=== PATIENT | female | born 2005 | race Caucasian/White ===

== ENCOUNTER 2024-12-21 20:25 | Emergency (ER) | payer BC, SELFPAY ==
[2024-12-21 20:27] VITALS: BP 127/91; PULSE 106; RESP 18; TEMP 36.3; O2SAT 99; BMI 24.4
--- NOTE | 2024-12-21 21:23 | ED.VIS.FEGU ---
HPI HPI - Female History of Present Illness Chief Complaint: Female C/O Narrative Narrative: Patient is a 19-year-old female G1, P0 currently 17 weeks no significant past medical history who presents to the emergency department with chief complaint of cramping and pressure. Patient states that earlier this evening she noted that she had a lot of cramping and pressure in her lower pelvis and notes that she came here for the valuation management. States that she is following with [facility]. Patient denies any vaginal spotting or bleeding. [facility] Medical History (Updated 12/21/24 @ 23:[address] Aftab Mendoza DO) POTS (postural orthostatic tachycardia syndrome) Myles-Danlos syndrome Allergy/AdvReac Type Severity Reaction Status Date / Time No Known Allergies Allergy Verified 12/21/24 20:27 Social History Smoking Status: Never smoker ROS ROS ED ROS Narrative Constitutional: Denies any fevers, chills, headaches, lightness, dizziness Eyes: Denies double vision Cardiovascular: Denies chest pain Respiratory: Denies shortness of breath Abdomen: Complains of lower abdominal pressure as noted above denies nausea vomiting : Denies any vaginal spotting or bleeding denies any painful urination Neurological: Denies any numbness, wheeze, tingling Musculoskeletal: Denies back pain Skin: Denies any rashes or lesions EXAM Physical Exam Narrative Exam Narrative: General: Patient lying in bed rest comfortably did not appear to be in acute distress Head: Atraumatic, normocephalic Eyes: PERRL bilaterally, EOMI blood, no conjunctival injection noted Neck: Soft, supple, trachea midline Cardiovascular: Patient tachycardic with a regular rhythm Respiratory: Clear to auscultation bilaterally Abdomen: Soft, gravid abdomen no tenderness to palpation Extremities: +5/5 strength in the bilateral upper and lower extremities Neurological: Patient follow commands knew that she was at [facility] the year is 2024 Skin: Warm, dry, tact no rashes or lesions noted Const Vital Signs: 12/21/24 20:27 12/21/24 22:26 Temperature 97.4 F L Temperature Source Oral Pulse Rate 106 H 80 Respiratory Rate 18 18 Blood Pressure 127/91 H 110/58 L Blood Pressure Mean 103 75 Pulse Ox 99 100 Oxygen Delivery Method Room Air Room Air MDM MDM MDM Narrative Medical decision making narrative: Patient is a 19-year-old female who presented to the Emergency Department 17 weeks with a chief complaint of pressure and cramping in her lower abdomen. On the differential diagnose includes but not limited to threatened miscarriage, UTI, dehydration. Once workup is obtained reviewed she will be reevaluated. Patient will be given 2 L of IV fluids heart tones 130 Patient CBC reviewed showed no evidence leukocytosis white blood count normal 10.4, hemoglobin 12.5, platelet count normal at 248. Patient sodium was normal at 137, potassium normal 3.8,, dioxide slightly low at 20.6, AST and ALT are 16 and 10 respectively total bilirubin normal at 0.26. Patient urinalysis reviewed showed no evidence of infection. Discussed the case with on-call STAKING ENGINEER for [facility] Dr. Aragon who states that she can follow-up with them on Saturday. She was advised to return with worsening symptoms or any concerns. She is agreeable this plan all question concerns answered she was discharged home in stable condition. Lab Data Labs: Laboratory Results - last 24 hr 12/21/24 12/21/24 21:36 21:58 WBC 10.4 RBC 4.12 L Hgb 12.5 Hct 36.3 L MCV 88.1 MCH 30.3 MCHC 34.4 RDW Std Deviation 44.6 H RDW Coeff of Jeannie 14.0 Plt Count 248 MPV 9.1 Immature Gran % (Auto) 0.700 Neut % (Auto) 72.9 H Lymph % (Auto) 18.4 L Dawson % (Auto) 6.2 Eos % (Auto) 1.4 Baso % (Auto) 0.4 Absolute Neuts (auto) 7.6 Absolute Lymphs (auto) 1.91 Nucleated RBC % 0 Sodium 137 Potassium 3.8 Chloride 103 Carbon Dioxide 20.6 L Anion Gap 13 BUN 7 Creatinine 0.54 L Estim Creat Clear Calc 161.60 Est GFR (MDRD) Non-Af 135 BUN/Creatinine Ratio 13.0 Glucose 118 H Calcium 9.0 Total Bilirubin 0.26 AST 16 ALT 10 Alkaline Phosphatase 44 Total Protein 6.5 Albumin 3.8 Globulin 2.6 Albumin/Globulin Ratio 1.5 Urine Color Yellow Urine Clarity Clear Urine pH 6.5 Ur Specific [place] 1.010 Urine Protein Negative Urine Glucose (UA) Normal Urine Ketones Negative Urine Occult Blood Negative Urine Nitrite Negative Urine Bilirubin Negative Urine Urobilinogen Normal Ur Leukocyte Esterase Negative Urine RBC 0-5 SEEN Urine WBC 0-5 SEEN Ur Squamous Epith Cells 0-5 SEEN Urine Bacteria 0 SEEN Urine Mucus 0 SEEN Discharge Plan Triage Chief Complaint: Female C/O Other Complaint: ED Provider: Aftab Mendoza Dx/Rx/DC Orders Clinical Impression: Abdominal cramping affecting , Currently , Dehydration Primary Care Provider: Care Physician,No Primary Referrals: Magda Aragon MD [Med Staff - Active Staff] - Care Physician,No Primary [Primary Care Provider] - Activity Restrictions/Additional Instructions: Follow-up with your STAKING ENGINEER at your scheduled appointment on Saturday. Your blood work did not show any acute findings your urine did not show any evidence infection. Return with worsening symptoms or any concerns. Ensure you are hydrating plenty with water. Print Language: Slovak Disposition Disposition: Home, Self Care
[2024-12-21 21:42] LABS: Hematocrit 36.3 % (37-47); Hemoglobin 12.5 g/dL (12.0-15.0); Immature Granulocytes Count 0.070 X10^3/uL (0.0-0.0); Mean Corp Hgb Conc 34.4 g/dL (32-36); Mean Corpuscular Volume 88.1 fL (81-99); Mean Platelet Vol. 9.1 fl (6.2-12.0); NRBC Flagged by Analyzer 0 % (0-5); Platelet Count 248 K/mm3 (150-450); RBC Distribution Width CV 14.0 % (11.6-14.6); RBC Distribution Width SD 44.6 fl (35.1-43.9); Red Blood Count 4.12 M/mm3 (4.2-5.4); White Blood Count 10.4 K/mm3 (4.4-11.0)
[2024-12-21] MEDS: 0.9% Normal Saline (1000mL) 1,000 ML 999 ML IV ×2 (21:46→22:54)
[2024-12-21 22:07] LABS: Mucous, Urine 0 SEEN /hpf (<or=2+)
[2024-12-21 22:20] LABS: Color, Urine Yellow (Yellow); Glucose, Dipstick Normal (Normal); Ketone-Dipstick Negative (Negative); Leukocyte Esterase-Dipstick Negative /ul (Negative); Nitrite-Dipstick Negative (Negative); Occult Blood-Urine Negative /ul (Negative); Protein-Dipstick Negative (Negative); Specific Gravity, Urine 1.010 (1.002-1.030); Urine Bilirubin Dipstick Negative (Negative)
[2024-12-21 22:26] VITALS: BP 110/58; PULSE 80; RESP 18; O2SAT 100
[2024-12-21 22:26] LABS: AST(SGOT) 16 U/L (<=31); Alanine Aminotransfer ALT/SGPT 10 U/L (<=34); Albumin, Serum 3.8 g/dL (3.5-5.0); Alkaline Phosphatase 44 U/L (35-104); Anion Gap 13 (5-15); BUN 7 mg/dL (4-19); BUN/Creat Ratio 13.0 RATIO (10-20); Calcium,Total 9.0 mg/dL (7.6-11.0); Carbon Dioxide 20.6 mmol/L (21.0-32.0); Chloride 103 mmol/L (98-108); Estimated Creatinine Clearance 161.60 ml/min (50-250); Globulin 2.6 g/dL (2.2-4.2); Glucose 118 mg/dL (70-99); Potassium 3.8 mmol/L (3.3-5.1)
[2024-12-21 23:22] LABS: Red Blood Cells-Urine 0-5 SEEN /hpf (0-5); Squamous Epithelial Cells - UA 0-5 SEEN /hpf (5-10)
[2024-12-21 23:57] VITALS: BP 110/58; PULSE 80; RESP 18; TEMP 36.3; O2SAT 100
[2024-12-22] VITALS: PULSE 81; RESP 16; O2SAT 98
== END 2024-12-22 00:35 | disposition home or self-care (01) ==
PROVIDERS: Emergency Provider Emergency Medicine; Visit Provider Emergency Medicine
DX: O99.891 Other specified diseases and conditions complicating pregnancy (principal); Z3A.17 17 weeks gestation of pregnancy; R10.9 Unspecified abdominal pain; O99.282 Endocrine, nutritional and metabolic diseases complicating pregnancy, second trimester; E86.0 Dehydration
CPT/HCPCS: 80053; 81001; 85025; 87086; 87088; 96360; 96361; 99283; A4216

== ENCOUNTER 2025-02-02 20:50 | Outpatient (CLI) | payer BC, SELFPAY ==
[2025-02-02 21:07] VITALS: BMI 27.2
[2025-02-02 21:12] VITALS: BP 123/78; PULSE 109; RESP 16; TEMP 37.1; O2SAT 98
[2025-02-02 22:22] LABS: Mucous, Urine 0 SEEN /hpf (<or=2+); Red Blood Cells-Urine 0 SEEN /hpf (0-5)
[2025-02-02 22:55] LABS: Color, Urine Straw (Yellow); Glucose, Dipstick Normal (Normal); Ketone-Dipstick Negative (Negative); Leukocyte Esterase-Dipstick Negative /ul (Negative); Nitrite-Dipstick Negative (Negative); Occult Blood-Urine Negative /ul (Negative); Protein-Dipstick 15 mg/dl (Negative); Specific Gravity, Urine 1.010 (1.002-1.030); Urine Bilirubin Dipstick Negative (Negative)
[2025-02-02 22:58] LABS: Squamous Epithelial Cells - UA 0-5 SEEN /hpf (5-10)
--- NOTE | 2025-02-02 23:36 | OB.TRI.NOTE ---
HPI - General General Date of Admission: 02/02/25 Date of Service: 02/02/25 Chief Complaint: cramping HPI Narrative JOSE NICHOLAS, is a 19 F who presents cramping. No bleeding. Some movement. Was seen in office today with normal discharge. Maternal Data Information Final AMARI: [birth year] Gestational age: 23 PFSH [facility] Medical History (Updated 02/02/25 @ 23:[address] Magda Aragon MD) POTS (postural orthostatic tachycardia syndrome) Myles-Danlos syndrome Home Medications ?Medication ?Instructions ?Recorded ?Last Taken ?Type aspirin 81 mg capsule 81 mg PO DAILY 02/02/25 02/01/25 History vit no.95-ferrous 1 tab PO DAILY 02/02/25 02/01/25 History fumarate 28 mg-folic acid 800 mcg tablet () Allergy/AdvReac Type Severity Reaction Status Date / Time No Known Allergies Allergy Verified 02/02/25 21:14 Social History Smoking Status: Never smoker History 1 Elective abortions Hx Para 0 Spontaneous abortions Hx # Term Pregnancies Ectopic pregnancies Hx # Pregnancies Multiple births # of living children NST FHR Rate Baby A Baseline: 145 by doppler Uterine Activity:: irritable Assessment & Plan (1) 23 weeks gestation of : (2) [place] Zar[place]za' contraction: COMMENT: cervix closed
== END 2025-02-02 23:30 | disposition home or self-care (01) ==
LOC: WPOUT 20:53 → WP 20:54
PROVIDERS: Referring Provider Obstetrics & Gynecology; Visit Provider Obstetrics & Gynecology
DX: O47.02 False labor before 37 completed weeks of gestation, second trimester (principal); Z3A.23 23 weeks gestation of pregnancy
CPT/HCPCS: 59050; 81001; 87086; 99221; G0378

== ENCOUNTER 2025-02-04 22:13 | Outpatient (CLI) | payer BC, SELFPAY ==
--- OUTSIDE RECORDS SUMMARY | 2025-02-04 22:22 | XMS RPT_ITS | CCD ---
Author Organization [facility] Care Team Providers Care Judicial Administrative Assistant Name Role Phone Unavailable Primary Care Provider Unavaildwayne e Dr. Aftab Mendoza DO Emergency Provider Care Physician, No Primary Primary Care Provider Unavailable Aftab Mendoza Attending Unavailable Care Physician, No Primary Primary Care Unava ilable MARK FOREMAN Attending Unavailable MARK FOREMAN Admitting Unavailable NUZHAT ZAMORANO Attending Unavailable NUZHAT ZAMORANO Admitting Unavailable MARIANNE, NUZHAT GRANADOS Admitting Unavailable NUZHAT ZAMORANO Attending Unavailable ALEXA DICKSON Attending Unavailable ALEXA DICKSON Admitting Unavailable Dr. Aftab Mendoza DO Attending Provider Mahesh WILLIS, Dr. Man Attending Provider Mahesh WILLIS, Dr. Man Referring Provider [phone] LYNNETTE TAPIA Referring Unavailable LYNNETTE TAPIA Attending Unavailable LYNNETTE TAPIA Attending Unavailable LESTER PHILLIPS Attending Unavailable KARINA SALDAÑA Attending Unavail able RAMAKRISHNA CROLEY Referring Unavailable RAMAKRISHNA CORLEY Attending Unavailable LYNNETTE TAPIA Referring Unavailable Medications Current Medications Medication Drug Class(es) Dates Sig (Normalized) Sig (Original) aspirin 81 mg oral tablet (15 sources) Platelet Aggregation Inhibitor, Nonsteroidal Anti-inflammatory Drug Start: 02-02-2025 take 1 capsule by mouth once daily Aspirin 81 mg capsule Active 81 mg PO DAILY February 02, 2025 12:00am Start: 12-28-2024 take 1 tablet by karl th once daily aspirin, enteric coated (ECOTRIN LOW STRENGTH) 81 mg EC tablet Indications: Visit for screening (HCC) Take 1 tablet by mouth once daily. 90 tablet 3 12/28/2024 Active cyclobenzaprine hydrochloride 10 mg oral tablet (15 sources) Muscle Relaxant Start: 12-22-2024 take 1 tablet by mouth every eight hours as needed cyclobenzaprine (FLEXERIL) 10 mg tablet Take 1 tablet by mouth three times a day as needed. 10 tablet 12/22/2024 Active doxylamine succinate 25 mg oral tablet (14 sources) take 25 mg by mouth once daily doxylamine succinate (UNISOM, DOXYLAMINE, PO) Take 25 mg by mouth once daily. Active loperamide hydrochloride 2 mg oral capsule (3 sources) Opioid Agonist Start: 01-05-2025 End: 01-10-2025 take 1 capsule by mouth every six hours as needed loperamide (IMODIUM A-D) 2 mg cap(s) Take 1 capsule by mouth four times a day as needed for up to 5 days. 20 capsule 01/05/2025 01/10/2025 Active metroNIDAZOLE 500 mg oral tablet (2 sources) Nitroimidazole Antimicrobial Start: 12-22-2024 End: 12-29-2024 take 1 tablet by mouth twice daily metroNIDAZOLE (FLAGYL) 500 mg tablet Take 1 tablet by mouth two times a day for 7 days. 14 tablet 12/22/2024 12/29/2024 Active nitrofurantoin, macrocrystals 25 mg / nitrofurantoin, monohydrate 75 mg oral capsule (4 sources) Nitrofuran Antibacterial Start: 01-14-2025 End: 01-21-2025 take 1 capsule by mouth twice daily nitrofurantoin monohydrate and macrocrystal (MACROBID) 100 mg capsule Indications: Dysuria Take 1 capsule by mouth two times a day for 7 days. 14 capsule 01/14/2025 01/21/2025 Active Pnv No.95-Ferrous Fumarate-Fa () 28 mg iron- 800 mcg tablet (1 source) Start: 02-02-2025 Pnv No.95-Ferrous Fumarate-Fa () 28 mg iron- 800 mcg tablet Active 1 {tbl} PO DAILY February 02, 2025 12:00am potassium chloride 10 meq extended release oral tablet (3 sources) Start: 01-05-2025 End: 01-07-2025 take 1 tablet by mouth twice daily potassium chloride (K-TAB) 10 mEq tablet Take 1 tablet by mouth two times a day for 2 days. 4 tablet 01/05/2025 01/07/2025 Active vit 75/iron/folic/om3 (DAILY ORAL) (14 sources) vit 75/iron/folic/om3 (DAILY ORAL) Take by mouth. Active pyridoxine hydrochloride 25 mg oral tablet (14 sources) take 1 tablet by mouth once daily pyridoxine, vitamin B6, (VITAMIN B-6) 25 mg tablet Take 25 mg by mouth once daily. Active Problems Active Problems Problem Classification Problem Date Documented Da te Episodic/Chronic Abdominal pain (1 source) Unspecified abdominal pain; Translations: [Abdominal pain affecting (HCC)] Onset: 01-18-2025 Episodic Bacterial infection; unspecified site (1 source) Other specified bacterial agents as the cause of diseases classified elsewhere; Translations: [Bacterial vaginosis] Onset: 12-28-2024 Episodic Cardiac dysrhythmias (16 sources) Postural orthostatic tachycardia syndrome ; Translations: [POTS (postural orthostatic tachycardia syndrome)] 12-28-2024 Chronic Cardiac dysrhythmias (2 sources) Palpitations; Translations: [Palpitations] Onset: 01-12-2025 01-11-2025 Episodic Conditions associated with dizziness or vertigo (13 sources) Dizziness; Translations: [Dizziness and giddiness] Onset: 01-05-2025 01-05-2025 Episodic Early or threatened labor (2 sources) Angel Zaragoza contractions; Translations: [False labor, unspecified] 02-02-2025 Episodic Comment on above: cervix closed Fluid and electrolyte disorders (15 sources) Dehydration; Translations: [Dehydration] Onset: 01-05-2025 12-21-2024 Episodic Genitourinary symptoms and ill-defined conditions (3 sources) Scalding pain on urination ; Translations: [Dysuria] Onset: 12-30-2024 01-11-2025 Episodic Headache; including migraine (13 sources) Headache; Translations: [Headache] Onset: 01-05-2025 01-05-2025 Episodic Hypertension complicating ; childbirth and the puerperium (12 sources) Chronic hypertension complicating AND/OR reason for care during ; Translations: [Unspecified pre-existing hypertension complicating , unspecified trimester] Onset: 01-06-2025 01-06-2025 Chronic Immunizations and screening for infectious disease (3 sources) Patient encounter status; Translations: [Encounter for screening for infections with a predominantly sexual mode of transmission] 12-28-2024 Episodic Inflammatory diseases of female pelvic organs (19 sources) Bacterial vaginosis; Translations: [Acute vaginitis] Onset: 12-22-2024 12-22-2024 Episodic Malaise and fatigue (4 sources) Fatigue; Translations: [Other fatigue] Onset: 01-12-2025 01-11-2025 Episodic Other circulatory disease (1 source) Postural orthostatic tachycardia syndrome 12-28-2024 Episodic Other complications of (2 sources) Complication of , childbirth and/or the puerperium; Translations: [Other specified related conditions, unspecified trimester] 12-21-2024 Episodic Other complications of (20 sources) Abdominal pain in ; Translations: [Other specified related conditions, second trimester] Onset: 12-22-2024 12-22-2024 Episodic Other complications of (15 sources) High risk ; Translations: [Supervision of high risk , unspecified, second trimester] Onset: 12-28-2024 12-28-2024 Episodic Other complications of (11 sources) Chest pain; Translations: [Chest pain during ] Onset: 01-06-2025 01-06-2025 Episodic Other complications of (13 sources) Vaginal discharge; Translations: [Other specified related conditions, unspecified trimester] Onset: 01-06-2025 01-06-2025 Episodic Other complications of (11 sources) Pain in female pelvis; Translations: [Other specified related conditions, unspecified trimester] Onset: 01-06-2025 01-06-2025 Episodic Other complications of (2 sources) Other specified related conditions, unspecified trimester; Translations: [Vaginal discharge during , antepartum (HCC)] Onset: 01-06-2025 Episodic Other complications of (1 source) Supervision of high risk , unspecified, second trimester; Translations: [Encounter for supervision of high risk in second trimester, antepartum (HCC)] Onset: 12-28-2024 Episodic Other congenital anomalies (16 sources) Myles-Danlos syndrome; 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, 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-2024 Chronic Other female genital disorders (2 sources) Other specified noninflammatory disorders of vagina; Translations: [Vaginal discharge during , antepartum (HCC)] Onset: 01-06-2025 Episodic Other gastrointestinal disorders (13 sources) Diarrhea; Translations: [Diarrhea, unspecified] Onset: 01-05-2025 01-05-2025 Episodic Other and delivery including normal (5 sources) ; Translations: [Encounter for supervision of normal , unspecified, unspecified trimester] Onset: 01-20-2025 12-21-2024 Episodic Other screening for suspected conditions (not mental disorders or infectious disease) (1 source) Encounter for screening, unspecified; Translations: [Visit for screening ([facility])] Onset: 01-11-2025 Episodic Residual codes; unclassified (2 sources) Gestation period, 18 weeks; Translations: [18 weeks gestation of ] 12-28-2024 Episodic Residual codes; unclassified (15 sources) Carrier of cystic fibrosis gene mutation; Translations: [Cystic fibrosis carrier] Onset: 12-28-2024 12-28-2024 Episodic Residual codes; unclassified (1 source) Gestation period, 20 weeks; Translations: [20 weeks gestation of ] 01-11-2025 Episodic Residual codes; unclassified (7 sources) Gestation period, 21 weeks; Translations: [21 weeks gestation of ] Onset: 01-18-2025 01-18-2025 Episodic Residual codes; unclassified (2 sources) Gestation period, 23 weeks; Translations: [23 weeks gestation of ] 02-02-2025 Episodic Residual codes; unclassified (1 source) 21 weeks gestation of ; Translations: [21 weeks gestation of ([facility])] Onset: 01-18-2025 Episodic Residual codes; unclassified (1 source) 20 weeks gestation of ; Translations: [20 weeks gestation of ([facility])] Onset: 01-11-2025 Episodic Residual codes; unclassified (1 source) 18 weeks gestation of ; Translations: [18 weeks gestation of ([facility])] Onset: 12-30-2024 Episodic Residual codes; unclassified (1 source) Cystic fibrosis carrier; Translations: [Cystic fibrosis carrier] Onset: 12-28-2024 Episodic Unclassified (2 sources) Patient encounter status 12-28-2024 Unclassified (14 sources) [facility] Onset: 12-28-2024 12-28-2024 Unclassified (14 sources) [facility] Onset: 12-28-2024 12-28-2024 Unclassified (1 source) Other specified diseases and conditions complicating ; Translations: [Other specified diseases and conditions complicating ] Onset: 12-29-2024 Unclassified (1 source) Myles-Danlos syndrome, unspecified; Translations: [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HCC)] Onset: 12-28-2024 Unclassified (1 source) POTS (postural orthostatic tachycardia syndrome); Translations: [POTS (postural orthostatic tachycardia syndrome)] Onset: 12-28-2024 Past or Other Problems Problem Classification Problem Date Documented Da te Episodic/Chronic Residual codes; unclassified (11 sources) Gestation period, 19 weeks; Translations: [19 weeks gestation of ] Onset: 01-06-2025 Resolved: 01-13-2025 01-06-2025 Episodic Results Test Name Value Interpretation Reference Range Facility Bilirubin Test strip Ql (U)O rdered By: Magda Aragon on 02-02-2025 Bilirubin Ql (U) Negative Negative [facility] Ketones Test strip Ql (U)Ord ered By: Magda Aragon on 02-02-2025 Ketones Ql (U) Negative Negative [facility] Microscopic analysis of urin e for red blood cells (RBC)Ordered By: Magda Aragon on 02-02-2025 Microscopic analysis of urine for red blood cells (RBC) 0 SEEN /hpf 0-5 [facility] Mucus LM Ql (Urine sed)Order ed By: Magda Aragon on 02-02-2025 Mucus Ql (Urine sed) 0 SEEN /hpf [facility] Nitrite Test strip Ql (U)Ord ered By: Magda Aragon on 02-02-2025 Nitrite Ql (U) Negative Negative [facility] Protein Test strip Ql (U)Ord ered By: Magda Aragon on 02-02-2025 Protein Ql (U) 15 mg/dl High Negative [facility] Squamous epithelial cells de tection in urine sediment by light microscopyOrdered By: Magda Aragon on 02-02-2025 Epithelial cells.squamous LM Ql (Urine sed) 0-5 SEEN /hpf 5-10 [facility] UA DIP, URINE (POC)on 2024 BILIRUBIN UA (POCT) Negative Negative [facility] CLARITY UA (POCT) Clear [facility] COLOR UA (POCT) Yellow [facility] GLUCOSE UA (POCT) Negative Negative mg/dL [facility] Hemoglobin Ql (U) Negative Negative [facility] KETONE UA (POCT) Negative Negative mg/dL [facility] LEUKOCYTES UA (POCT) Negative Negative [facility] NITRITE UA (POCT) Negative Negative [facility] PH UA (POCT) 7.0 4.5 - 8.0 [facility] Protein Ql (U) Negative Negative mg/dL [facility] SPECIFIC GRAVITY UA (POCT) 1.010 1.005 - 1.030 [facility] UROBILINOGEN UA (POCT) 0.2 Jazmine l E.U./dL [facility] Location:[facility], [address], [place], [place], [id number] [place] [address] POINT OF CARE [facility] Urine clarityOrdered By: Jazmin Aragon on 02-02-2025 Clarity (U) Clear Clear [facility] Urine color determinationOrd ered By: Magda Aragon on 02-02-2025 Color (U) Straw Yellow [facility] Urine glucose detectionOrder ed By: Magda Aragon on 02-02-2025 Glucose Ql (U) Normal mg/dl Normal [facility] Urine leukocyte esterase det ection by dipstickOrdered By: Magda Aragon on 02-02-2025 Leukocyte esterase Test strip Ql (U) Negative Negative [facility] Urine pHOrdered By: Magda Aragon on 02-02-2025 pH (U) 7.0 [pH] 5.0 - 8.0 [facility] Urine sediment bacteria coun t by microscopy (number/high power field)Ordered By: Magda Aragon on 02-02-2025 Bacteria LM.HPF (Urine sed) [#/Area] 0 /[HPF] None Seen [facility] Urine specific gravity measu rementOrdered By: Magda rAagon on 02-02-2025 Specific gravity (U) [Rel density] 1.010 1.002-1.030 [facility] Urine urobilinogen measureme ntOrdered By: Magda Rowewin on 02-02-2025 Urobilinogen Ql (U) Normal mg/dl Normal [facility] White blood cell countOrdere d By: Magda Rowewin on 02-02-2025 White blood cell count 0 SEEN /hpf 0-5 [facility] BACTERIAL VAGINOSIS NAATon 0 01-20-2025 Interpretation and review of laboratory results Normal [facility] Lactobacillus crispatus+gasseri+muniz ii + Gardnerella vaginalis + Atopobium vaginae rRNA JOHN+probe Ql (Vag fld) Not detected Not detected [facility] Lactobacillus crispatus+gasseri+muniz ii + Gardnerella vaginalis + Atopobium vaginae rRNA JOHN+probe Ql (Vag fld) Not detected Normal Not detected [facility] Comment on above: Order Comment: Speci men Type: SWAB Ordering Facility: [facility] Address: [address] [place] [address] Performed By: #### B VAMP, CVTV #### [facility] CLIA [id number] [address] [place] [address] [place] PARVEEN/TRICHOMONAS NAATon 0 01-20-2025 C. glabrata RNA JOHN+probe Ql (Vag fld) Not detected Not detected [facility] Parveen sp DNA JOHN+probe Ql (Vag fld) Not detected Not detected [facility] Comment on above: The Parveen species group target includes C. albicans, C. tropicalis, C. parapsilosis, and C. dubliniensis. Interpretation and review of laboratory results Normal [facility] T. vaginalis DNA JOHN+probe Ql (Unsp spec) Not detected Not detected [facility] C. glabrata RNA JOHN+probe Ql (Vag fld) Not detected Normal Not detected [facility] Comment on above: Order Comment: Speci men Type: SWAB Ordering Facility: [facility] Address: [address] [place] [address] Performed By: #### B VAMP, CVTV #### [facility] CLIA [id number] [address] [place] [address] [place] Parveen sp DNA JOHN+probe Ql (Vag fld) Not detected Normal Not detected [facility] Comment on above: Order Comment: Speci men Type: SWAB Ordering Facility: [facility] Address: [address] [place] [address] Result Comment: The Parveen species group target includes C. albicans, C. tropicalis, C. parapsilosis, and C. dubliniensis. Performed By: #### B VAMP, CVTV #### [facility] CLIA [id number] [address] [place] [address] T. vaginalis DNA JOHN+probe Ql (Unsp spec) Not detected Normal Not detected [facility] Comment on above: Order Comment: Speci men Type: SWAB Ordering Facility: [facility] Address: [address] [place] [address] Performed By: #### B VAMP, CVTV #### [facility] CLIA [id number] [address] [place] [address] [place] [id number] 01-19-2025 [id number] HNO ID: [id number] Author: ARMIDA SMITH RN Service: ? Author Type: Registered Nurse Type: [id number] Filed: 01/19/2025 03:42 Note Text: Precautions given, patient verbalized understanding. Instructed to call her OB doctor for follow up. Normal [facility] Bacteria Ur Culton Bacteria identified Cx Nom (U) CULTURE, URINE: No growth (<1,000 CFU/ml) Normal [facility] Comment on above: Performed By: #### 6 30-4 ####[facility]ORYCLIA [id number] [place] [address] [place] [address] ABD/PEL WO IVCONon 2024 CT ABD/PEL WO IVCON * * *Final Report* * * DATE OF EXAM: Jan 19 2025 12:50AM [facility] 0531 - CT ABD/PEL WO IVCON / PROCEDURE REASON: Abdominal pain in * * * * Physician Interpretation * * * * EXAMINATION: CT ABDOMEN AND PELVIS WITHOUT IV CONTRAST CLINICAL HISTORY: Abdominal pain in . RIGHT lower quadrant pain. 21 weeks . TECHNIQUE: Non-IV contrast imaging of the abdomen and pelvis was performed using standard technique, scanning from just above the dome of the diaphragm to the symphysis pubis. Unenhanced imaging is limited for the evaluation of some intra-abdominal and pelvic pathology. MQ: [id number]_3 Contrast: IV: None CT Radiation dose: Integrated Dose-length product (DLP) for this visit = 483 mGy*cm. CT Dose Reduction Employed: Automated exposure control(AEC) and iterative recon COMPARISON: None. RESULT: Abdomen / Pelvis: Liver: Unremarkable. Biliary: Gallbladder is unremarkable. Spleen: No splenomegaly. Pancreas: Unremarkable. Adrenals: No mass. Kidneys: Punctate 1 mm nonobstructing stone in the RIGHT lower pole calyx. No hydronephrosis or visible ureteral stones. GI Tract: No bowel obstruction. No bowel wall thickening. Appendix not definitively seen. No pericecal inflammatory changes. Lymph Nodes: No lymphadenopathy. Mesentery/peritoneum : No ascites. Retroperitoneum: No mass. Vasculature: Unremarkable. Pelvis: Enlarged gravid uterus. Anterior placenta. The uterus and fetus are otherwise not well assessed by noncontrast CT. Mild urinary bladder wall thickening. Bones/Soft Tissues: No acute abnormality. Lower thorax: Unremarkable. Localizer images: No additional findings. IMPRESSION: 1. Mild urinary bladder wall thickening suggestive of cystitis. Recommend correlation for urinary tract infection. 2. Punctate 1 mm nonobstructing stone in the RIGHT lower pole calyx. No hydronephrosis or visible ureteral stones. 3. Appendix not definitively seen. No pericecal inflammatory changes. 4. Enlarged gravid uterus. Anterior placenta. Otherwise limited assessment by noncontrast CT. Recommend correlation with obstetric ultrasound. Director Of Online Education: HIEU Transcribe Date/Time: Jan 19 2025 2:36A Dictated by : BONIFACIO GAYLE DO This examination was interpreted and the report reviewed and electronically signed by: BONIFACIO GAYLE DO on Jan 19 2025 2:54AM EST [id number] Normal [facility] CBC panel Auto (Bld)on 01-18 Erythrocyte distribution width (RBC) [Ratio] 14.1 % Normal 11.5-15.0 [facility] Comment on above: Order Comment: Speci men Type: BLOOD SPECIMENOrdering Facility: [facility] Address: [address] [place] [address] Performed By: #### 5 8410-2 ####[facility]ORYCLIA [id number] [address] STATES OF [facility] Hematocrit (Bld) [Volume fraction] 34.6 % Low 36.0-46.0 [facility] Comment on above: Order Comment: Speci men Type: BLOOD SPECIMENOrdering Facility: [facility] Address: [address] [place] [address] Performed By: #### 5 8410-2 ####[facility]ORYCLIA [id number] [address] [place] Hemoglobin (Bld) [Mass/Vol] 11.5 g/dL Normal 11.5-15.5 [facility] Comment on above: Order Comment: Speci men Type: BLOOD SPECIMENOrdering Facility: [facility] Address: [address] [place] [address] Performed By: #### 5 8410-2 ####[facility]ORYCLIA [id number] [address] [place] MCH (RBC) [Entitic mass] 31.0 pg Normal 26.0-34.0 [facility] Comment on above: Order Comment: Speci men Type: BLOOD SPECIMENOrdering Facility: [facility] Address: [address] [place] [address] Performed By: #### 5 8410-2 ####[facility]ORYCLIA [id number] [address] [place] MCHC (RBC) [Mass/Vol] 33.2 g/dL Normal 30.5-36.0 [facility] Comment on above: Order Comment: Speci men Type: BLOOD SPECIMENOrdering Facility: [facility] Address: [address] [place] [address] Performed By: #### 5 8410-2 ####[facility]ORYCLIA [id number] [address] [place] MCV (RBC) [Entitic vol] 93.3 fL Normal 80.0-100.0 [facility] Comment on above: Order Comment: Speci men Type: BLOOD SPECIMENOrdering Facility: [facility] Address: [address] [place] [address] Performed By: #### 5 8410-2 ####[facility]ORYCLIA [id number] [address] [place] Nucleated RBC (Bld) [#/Vol] 10*3/uL Normal <0.01 [facility] Comment on above: Order Comment: Speci men Type: BLOOD SPECIMENOrdering Facility: [facility] Address: [address] [place] [address] Performed By: #### 5 8410-2 ####[facility]ORYCLIA [id number] [address] [place] Platelet mean volume (Bld) [Entitic vol] 9.2 fL Normal 9.0-12.7 [facility] Comment on above: Order Comment: Speci men Type: BLOOD SPECIMENOrdering Facility: [facility] Address: [address] [place] [address] Performed By: #### 5 8410-2 ####[facility]ORYCLIA [id number] [address] [place] Platelets (Bld) [#/Vol] 242 10*3/uL Normal 150-400 [facility] Comment on above: Order Comment: Speci men Type: BLOOD SPECIMENOrdering Facility: [facility] Address: [address] [place] [address] Performed By: #### 5 8410-2 ####[facility]ORYCLIA [id number] [address] [place] RBC (Bld) [#/Vol] 3.71 10*6/uL Low 3.90-5.20 [facility] Comment on above: Order Comment: Speci men Type: BLOOD SPECIMENOrdering Facility: [facility] Address: [address] [place] [address] Performed By: #### 5 8410-2 ####[facility]ATORYCLIA [id number] [place] [address] [place] WBC (Bld) [#/Vol] 10.04 10*3/uL Normal 3.70-11.00 [facility] Comment on above: Order Comment: Speci men Type: BLOOD SPECIMENOrdering Facility: [facility] Address: [address] [place] [address] Performed By: #### 5 8410-2 ####[facility]ORYCLIA [id number] [place] [address] [facility] Landen 01-18-2025 CNPN Telephone (OBHeptares TherapeuticsWM) PAL NICHOLAS ([id number]) 3 F Date Time Provider Department 01/18/25 LYNNETTE TAPIA During your visit today, we recorded the following information about you: Isaura Pereira RN 01/18/2025 8:46 AM Signed Breast pump order received from [place]. To CP to sign. LEVON Hutson Lindsey, RN 01/20/2025 11:34 AM Signed Order signed and faxed. Jocelyne Black RN Allergies As of Date: 01/18/2025 (No Known Allergies) Date Reviewed: 01/11/2025 Reviewed by: Priti Sharma MA - Fully Assessed Reason for Visit: Breast Pump [Other] Prescriptions as of 01/20/2025 - nitrofurantoin monohydrate and macrocrystal (MACROBID) 100 mg capsule Take 1 capsule by mouth two times a day for 7 days. - aspirin, enteric coated (ECOTRIN LOW STRENGTH) 81 mg EC tablet Take 1 tablet by mouth once daily. - vit 75/iron/folic/om3 (DAILY ORAL) Take by mouth. - doxylamine succinate (UNISOM, DOXYLAMINE, PO) Take 25 mg by mouth once daily. - pyridoxine, vitamin B6, (VITAMIN B-6) 25 mg tablet Take 25 mg by mouth once daily. - cyclobenzaprine (FLEXERIL) 10 mg tablet Take 1 tablet by mouth three times a day as needed. 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] 12/28/2024 Encounter for supervision of high risk pregnanc*12/28/2024 Abdominal pain affecting (HCC) [O26.8*01/05/2025 Diarrhea [R19.7] 01/05/2025 Hypokalemia [E87.6] 01/05/2025 Dizziness [R42] 01/05/2025 Headache [R51.9] 01/05/2025 Chest pain during (HCC) [O99.891, R07*01/06/2025 Vaginal discharge during (HCC) [O26.8*01/06/2025 Chronic hypertension affecting (HCC) *01/06/2025 19 weeks gestation of (HCC) [Z3A.19] 01/06/2025 01/13/2025 Pelvic pressure in (HCC) [O26.899, R1*01/06/2025 21 weeks gestation of (HCC) [Z3A.21] 01/18/2025 Encounter Status:Closed by JOCELYNE BLACK on 01/20/25 Normal [facility] metabolic 2000 panelon 01-18-2025 Albumin [Mass/Vol] 3.8 g/dL Low 3.9-4.9 [facility] Comment on above: Order Comment: Speci men Type: BLOOD SPECIMENOrdering Facility: [facility] Address: [address] [place] [address] [place] [address] Performed By: #### 2 4323-8 ####[facility]ATORYCLIA [id number] [place] [address] [place] ALP [Catalytic activity/Vol] 57 U/L Normal 34-123 [facility] Comment on above: Order Comment: Speci men Type: BLOOD SPECIMENOrdering Facility: [facility] Address: [address] [place] [address] Performed By: #### 2 4323-8 ####[facility]ORYCLIA [id number] [address] [place] ALT With P-5'-P [Catalytic activity/Vol] 11 U/L Normal 7-38 [facility] Comment on above: Order Comment: Speci men Type: BLOOD SPECIMENOrdering Facility: [facility] Address: [address] [place] [address] Performed By: #### 2 4323-8 ####[facility]ORATORYCLIA [id number] [address] STATES OF [facility] Anion gap [Moles/Vol] 12 mmol/L Normal 8-15 [facility] Comment on above: Order Comment: Speci men Type: BLOOD SPECIMENOrdering Facility: [facility] Address: [address] [place] [address] Performed By: #### 2 4323-8 ####[facility]ORYCLIA [id number] [address] [place] AST With P-5'-P [Catalytic activity/Vol] 16 U/L Normal 13-35 [facility] Comment on above: Order Comment: Speci men Type: BLOOD SPECIMENOrdering Facility: [facility] Address: [address] [place] [address] Performed By: #### 2 4323-8 ####[facility]ORYCLIA [id number] [address] [place] Bilirubin [Mass/Vol] 0.3 mg/dL Normal 0.2-1.3 [facility] Comment on above: Order Comment: Speci men Type: BLOOD SPECIMENOrdering Facility: [facility] Address: [address] [place] [address] Performed By: #### 2 4323-8 ####[facility]ATORYCLIA [id number] [place] [address] [place] Calcium [Mass/Vol] 8.6 mg/dL Normal 8.5-10.2 [facility] Comment on above: Order Comment: Speci men Type: BLOOD SPECIMENOrdering Facility: [facility] Address: [address] [place] [address] Performed By: #### 2 4323-8 ####[facility] LABORATORYCLIA [id number] [place] [address] [place] Chloride [Moles/Vol] 103 mmol/L Normal 98-107 [facility] Comment on above: Order Comment: Speci men Type: BLOOD SPECIMENOrdering Facility: [facility] Address: [address] [place] [address] Performed By: #### 2 4323-8 ####[facility]ORATORYCLIA [id number] [place] [address] [place] CO2 [Moles/Vol] 22 mmol/L Normal 22-30 [facility] Comment on above: Order Comment: Speci men Type: BLOOD SPECIMENOrdering Facility: [facility] Address: [address] [place] [address] Performed By: #### 2 4323-8 ####[facility]ORATORYCLIA [id number] [place] [address] [place] Creatinine [Mass/Vol] 0.50 mg/dL Low 0.58-0.96 [facility] Comment on above: Order Comment: Speci men Type: BLOOD SPECIMENOrdering Facility: [facility] Address: [address] [place] [address] Performed By: #### 2 4323-8 ####[facility]ORATORYCLIA [id number] [place] [address] [place] eGFRcr SerPlBld CKD-EPI 2020 138 mL/min/1.73m??? Normal >=60 [facility] Comment on above: Order Comment: Destini thorpe Type: BLOOD SPECIMENOrdering Facility: [facility] Address: [address] [place] [address] Result Comment: Shilpa mated Glomerular Filtration Rate (eGFR) is calculated using the 2020 CKD-EPI creatinine equation. This equation utilizes serum creatinine, sex, and age as parameters. The creatinine assay has traceable calibration to isotope dilution-mass spectrometry. Refer to KDIGO guidelines for clinical interpretation. In patients with unstable renal function, e.g. those with acute kidney injury, the eGFR may not accurately reflect actual GFR. Performed By: #### 2 4323-8 ####[facility]ORATORYCLIA [id number] [place] [address] [place] Glucose [Mass/Vol] 63 mg/dL Low 74-99 [facility] Comment on above: Order Comment: Destini thorpe Type: BLOOD SPECIMENOrdering Facility: [facility] Address: [address] [place] [address] Result Comment: The [place] Diabetes [employer] (ADA) provides guidance for cutoff values for fasting glucose and random glucose. The ADA defines fasting as no caloric intake for at least 8 hours. Fasting plasma glucose results between 100 to 125 mg/dL indicate increased risk for diabetes (prediabetes). Fasting plasma glucose results greater than or equal to 126 mg/dL meet the criteria for diagnosis of diabetes. In the absence of unequivocal hyperglycemia, results should be confirmed by repeat testing. In a patient with classic symptoms of hyperglycemia or hyperglycemic crisis, random plasma glucose results greater than or equal to 200 mg/dL meet the criteria for diagnosis of diabetes. Reference: Standards of Medical Care in Diabetes 2016, [place] [employer]. Diabetes Care. 2016.39(Suppl 1). Performed By: #### 2 4323-8 ####[facility]ORATORYCLIA [id number] [place] [address] [place] Potassium [Moles/Vol] 3.8 mmol/L Normal 3.7-5.1 [facility] Comment on above: Order Comment: Destini thorpe Type: BLOOD SPECIMENOrdering Facility: [facility] Address: [address] [place] [address] Performed By: #### 2 4323-8 ####[facility]ORATORYCLIA [id number] [address] [place] Protein [Mass/Vol] 6.5 g/dL Normal 6.3-8.0 [facility] Comment on above: Order Comment: Speci men Type: BLOOD SPECIMENOrdering Facility: [facility] Address: [address] [place] [address] Performed By: #### 2 4323-8 ####[facility] LABORATORYCLIA [id number] [place] [id number] [place] Sodium [Moles/Vol] 137 mmol/L Normal 136-144 [facility] Comment on above: Order Comment: Speci men Type: BLOOD SPECIMENOrdering Facility: [facility] Address: [address] [place] [address] Performed By: #### 2 4323-8 ####[facility]ORATORYCLIA [id number] [address] Urea nitrogen [Mass/Vol] 4 mg/dL Low 7-21 [facility] Comment on above: Order Comment: Speci men Type: BLOOD SPECIMENOrdering Facility: [facility] Address: [address] [place] [address] Performed By: #### 2 4323-8 ####[facility]ORATORYCLIA [id number] [address] OF [place] Landen 01-14-2025 CNPN Telephone (OBGYWM) PAL NICHOLAS ([id number]) 3 F Date Time Provider Department 01/14/25 RAMAKRISHNA CORLEY During your visit today, we recorded the following information about you: Ramakrishna Corley MD 01/14/2025 1:35 PM Signed See result note Allergies As of Date: 01/14/2025 (No Known Allergies) Date Reviewed: 01/11/2025 Reviewed by: Priti Sharma MA - Fully Assessed Reason for Visit: Orders [681] Primary Visit Diagnosis:Dysuria [R30.0] Order(s):nitrofurant oin monohydrate and macrocrystal (MACROBID) 100 mg capsuleTake 1 capsule by mouth two times a day for 7 days.Disp: 14 capsuleRfl: 0 Prescriptions as of 01/14/2025 - nitrofurantoin monohydrate and macrocrystal (MACROBID) 100 mg capsule Take 1 capsule by mouth two times a day for 7 days. - aspirin, enteric coated (ECOTRIN LOW STRENGTH) 81 mg EC tablet Take 1 tablet by mouth once daily. - vit 75/iron/folic/om3 (DAILY ORAL) Take by mouth. - doxylamine succinate (UNISOM, DOXYLAMINE, PO) Take 25 mg by mouth once daily. - pyridoxine, vitamin B6, (VITAMIN B-6) 25 mg tablet Take 25 mg by mouth once daily. - cyclobenzaprine (FLEXERIL) 10 mg tablet Take 1 tablet by mouth three times a day as needed. 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] 12/28/2024 Encounter for supervision of high risk pregnanc*12/28/2024 Abdominal pain affecting (HCC) [O26.8*01/05/2025 Diarrhea [R19.7] 01/05/2025 Hypokalemia [E87.6] 01/05/2025 Dizziness [R42] 01/05/2025 Headache [R51.9] 01/05/2025 Chest pain during (HCC) [O99.891, R07*01/06/2025 Vaginal discharge during (HCC) [O26.8*01/06/2025 Chronic hypertension affecting (HCC) *01/06/2025 19 weeks gestation of ([facility]) [Z3A.19] 01/06/2025 01/13/2025 Pelvic pressure in ([facility]) [O26.899, R1*01/06/2025 Prescriptions ordered this encounter Disp Refills Start End NITROFURANTOIN MONOHYDRATE AND MACROCR* 14 c* 0 01/14/2025 01/21/2025 Route: PO Sig: Take 1 capsule by mouth two times a day for 7 days. Encounter Status:Closed by RAMAKRISHNA CORLEY on 01/14/25 Normal [facility] Examination level ultrasound on 01-12-2025 Indication Detailed anatomic survey Myles-Danlos syndrome, POTS, Chronic hypertension Impression The patient is referred for a detailed anatomic survey. - Single, live, intrauterine . - biometry is consistent with the established gestational age. - No malformations were visualized on a complete detailed anatomic survey. - The amniotic fluid volume is normal amount. - The placenta is anterior, fundal. - The Transabdominal cervical length measures 37.4 mm with no evidence of funneling or other dynamic changes. - Not all structural malformations can be detected by ultrasound examination. Recommendations - growth every 4 weeks starting at 28 weeks. - Additional follow up as clinically indicated. Maternal Assessment Height 170 cm Height (ft) 5 ft Height (in) 7 in Physical Exam Initial weight (lb) 155 lb Initial BMI 24.28 kg/m Maternal assessment other: 1 Para 0 REMOTE READ Method Transabdominal ultrasound examination. View: Adequate visualization Lin . Number of fetuses: 1 Dating GA by prior assessment 20 w + 0 d AMARI by prior assessment: 05/31/2025 Ultrasound examination on: 01/11/2025 GA by U/S based upon: AC, BPD, Femur, HC GA by U/S 20 w + 5 d AMARI by U/S: 05/26/2025 Assigned: based on stated AMARI, selected on 01/11/2025 Assigned GA 20 w + 0 d Assigned AMARI: 05/31/2025 General Evaluation Cardiac activity present. FHR 144 bpm. movements: present. Presentation: cephalic Placenta: Placental site: anterior, fundal Umbilical cord: Cord vessels: 3 vessel cord Amniotic fluid: Amount of AF: normal amount. MVP 4.6 cm Growth Overview Exam date GA BPD (mm) HC (mm) AC (mm) FL (mm) HL (mm) EFW (g) 01/11/2025 20w 0d 49.4 85% 184.5 74% 154.7 66% 32.1 64% 31.3 70% 352 68% Biometry Standard BPD 49.4 mm 21w 0d 85% Hadlock OFD 65.3 mm 20w 5d 94% Nicolaides HC 184.5 mm 20w 6d 74% Patel Cerebellum tr 21.7 mm 20w 3d 87% Hill Nuchal fold 3.8 mm AC 154.7 mm 20w 5d 66% Hadlock Femur 32.1 mm 20w 1d 64% Patel Humerus 31.3 mm 20w 3d 70% Patel EFW 352 g 20w 2d 68% Hadlock EFW (lb) 0 lb EFW (oz) 12 oz EFW by: Hadlock (HC-AC-FL) Extended Systems Security Analyst 6.6 mm CM 6.6 mm 90% Nicolaides Extremities / Bony Struc FL / HC 0.17 5% Hadlock Other Structures FHR 144 bpm Anatomy Cranium: normal Lateral ventricles: normal Choroid plexus: normal Midline falx: normal Cavum septi pellucidi: normal Cerebellum: normal Cisterna magna: normal Head / Neck Vermis: normal Neck: normal Nuchal fold: normal Lips: normal Profile: normal Nose: normal Face Maxilla: normal Mandible: normal Orbits: normal Lens: normal 4-chamber view: normal RVOT view: normal LVOT view: normal 3-vessel view: normal [id number] view: normal Heart / Thorax Situs: situs solitus (normal) Aortic arch view: normal SVC: normal IVC: normal Cardiac axis: normal Rt lung: normal Lt lung: normal Diaphragm: normal Cord insertion: normal Stomach: normal Kidneys: normal Bladder: normal Genitals: normal Abdomen Abdom. wall: normal Cervical spine: normal Thoracic spine: normal Lumbar spine: normal Sacral spine: normal Arms: normal Legs: normal Rt upper arm: normal Rt forearm: normal Rt hand: normal Rt fingers: normal Lt upper arm: normal Lt forearm: normal Lt hand: normal Lt fingers: normal Rt upper leg: normal Rt lower leg: normal Rt foot: normal Lt upper leg: normal Lt lower leg: normal Lt foot: normal sex: male Wants to know sex: yes Maternal Structures Uterus / Cervix Uterus: Visualized Cervix: Visualized Approach: Transabdominal Cervical length 37.4 mm Other: Patient declined transvaginal ultrasound for cervical length. Ovaries / Tubes / Adnexa Rt ovary: Visualized Lt ovary: Visualized Performed By: Jocelyne Ernandez RDMS, RVT Read By: Tiffanie Barrios M.D. MATERNAL MEDICINE [facility] TSH W/REFLEX FT4on 5 TSH Qn 1.510 m[IU]/L Normal 0.510-4.300 [facility] Comment on above: Order Comment: Speci men Type: SWAB [facility] Address: [address] [place] [address] Result Comment: If t he patient is , TSH reference range varies by gestational period: First Trimester (weeks 9-12): 0.180-2.990 mIU/L Second Trimester: 0.110-3.980 mIU/L Third Trimester: 0.480-4.710 mIU/L Garry Rizvi et al. A Practical Approach for the Verifications and Determination of Site- and Trimester-Specific Reference Intervals for Thyroid Function tests in . Thyroid, 2019:29:3:412-420. Keagan E, et al. 2017 Guidelines of the [place] Thyroid Association for the Diagnosis and Management of Thyroid Disease during and the . Thyroid, 2017:27:3:315-389. Performed By: #### B VAMP, CVTV #### [facility] CLIA [id number] [address] [place] [address] [place] BACTERIAL VAGINOSIS NAATon 0 01-11-2025 Lactobacillus crispatus+gasseri+muniz ii + Gardnerella vaginalis + Atopobium vaginae rRNA JOHN+probe Ql (Vag fld) Not detected Normal Not detected [facility] Comment on above: Order Comment: Speci men Type: SWAB [facility] Address: [address] [place] [address] Performed By: #### B VAMP, CVTV #### [facility] CLIA [id number] [address] [place] [address] [place] Bacteria Ur Culton 5 Bacteria identified Cx Nom (U) ORGANISM ID: 1 <10,000 CFU/ml Enterococcus faecalis Insignificant colony count. No further workup. Cephalosporins, clindamycin, and TMP-SMX are not effective for the treatment of enterococcal infections. Normal [facility] Comment on above: Performed By: #### B VAMP CVTV #### [facility] CLIA [id number] [address] [place] [address] [place] PARVEEN/TRICHOMONAS NAATon 0 01-11-2025 C. glabrata RNA JOHN+probe Ql (Vag fld) Not detected Normal Not detected [facility] Comment on above: Order Comment: Speci men Type: SWAB [facility] Address: [address] [place] [address] Performed By: #### Helder VAMP CVTV #### [facility] CLIA [id number] [address] [place] [address] [place] Parveen sp DNA JOHN+probe Ql (Vag fld) Not detected Normal Not detected [facility] Comment on above: Order Comment: Speci men Type: SWAB [facility] Address: [address] [place] [address] Result Comment: The Parveen species group target includes C. albicans, C. tropicalis, C. parapsilosis, and C. dubliniensis. Performed By: #### Helder CONDON CVTV #### [facility] CLIA [id number] [address] [place] [address] [place] T. vaginalis DNA JOHN+probe Ql (Unsp spec) Not detected Normal Not detected [facility] Comment on above: Order Comment: Speci men Type: SWAB [facility] Address: [address] [place] [address] Performed By: #### B VAMP CVTV #### [facility] CLIA [id number] [address] [place] [address] [place] Examination level ultrasound on 01-11-2025 Radiology Study observation (narrative) [facility] UA DIP, URINE (POC)on 2024 BILIRUBIN UA (POCT) Negative Negative [facility] CLARITY UA (POCT) Clear [facility] COLOR UA (POCT) Yellow [facility] GLUCOSE UA (POCT) Negative Negative mg/dL [facility] Hemoglobin Ql (U) Negative [facility] Interpretation and review of laboratory results Abnormal [facility] KETONE UA (POCT) Negative Negative mg/dL [facility] LEUKOCYTES UA (POCT) Trace Abnormal Negative [facility] NIT[facility] (POCT) Negative [facility] PH UA (POCT) 6.0 4.5 - 8.0 [facility] Protein Ql (U) Negative Negative mg/dL [facility] SPECIFIC GRAVITY UA (POCT) 1.020 1.005 - 1.030 [facility] UROBILINOGEN UA (POCT) 0.2 Jazmine l E.U./dL [facility] Location:[facility], [address], [place], [place], [address] [place] [address] POINT OF CARE [facility] CNPNon 01-07-2025 CNPN Telephone (AKPRAD) PAL NICHOLAS ([id number]) 3 F Date Time Provider Department 01/07/25 EJ RODRIGUEZ During your visit today, we recorded the following information about you: Ej Rodriguez MD 01/07/2025 12:41 PM Signed Patient was seen by resident but not by 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 She needs a new patient general cardiology appointment in the next 1 to 4 weeks. Please try to arrange this. If there are no spots or anyone let me know thanks MD Andrae Vivas Mary 01/08/2025 2:39 PM Signed Scheduled 02/05/[address] Burns[address] Kari Abebe Allergies As of Date: 01/07/2025 (No Known Allergies) Date Reviewed: 01/06/2025 Reviewed by: Aleksandra Rodriguez, LEVON - Fully Assessed Reason for Visit: Appointment [186] Prescriptions as of 01/12/2025 - aspirin, enteric coated (ECOTRIN LOW STRENGTH) 81 mg EC tablet Take 1 tablet by mouth once daily. - vit 75/iron/folic/om3 (DAILY ORAL) Take by mouth. - doxylamine succinate (UNISOM, DOXYLAMINE, PO) Take 25 mg by mouth once daily. - pyridoxine, vitamin B6, (VITAMIN B-6) 25 mg tablet Take 25 mg by mouth once daily. - cyclobenzaprine (FLEXERIL) 10 mg tablet Take 1 tablet by mouth three times a day as needed. 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] 12/28/2024 Encounter for supervision of high risk pregnanc*12/28/2024 Abdominal pain affecting (HCC) [O26.8*01/05/2025 Diarrhea [R19.7] 01/05/2025 Hypokalemia [E87.6] 01/05/2025 Dizziness [R42] 01/05/2025 Headache [R51.9] 01/05/2025 Chest pain during (HCC) [O99.891, R07*01/06/2025 Vaginal discharge during (HCC) [O26.8*01/06/2025 Chronic hypertension affecting (HCC) *01/06/2025 19 weeks gestation of (HCC) [Z3A.19] 01/06/2025 Pelvic pressure in (HCC) [O26.899, R1*01/06/2025 Encounter Status:Closed by EJ RODRIGUEZ on 01/12/25 Normal [facility] Basic metabolic 2000 panelon 01-06-2025 Anion gap [Moles/Vol] 12 mmol/L Normal 8-15 [facility] Comment on above: Order Comment: Speci men Type: BLOOD SPECIMENOrdering Facility: [facility] Address: [address] [place] [address] Performed By: #### H STNT, 98534-1 ####[facility]ORATORYCLIA [id number] [place] [address] [place] Calcium [Mass/Vol] 8.6 mg/dL Normal 8.5-10.2 [facility] Comment on above: Order Comment: Speci men Type: BLOOD SPECIMENOrdering Facility: [facility] Address: [address] [place] [address] Performed By: #### H STNT, 77767-7 ####[facility]ORATORYCLIA [id number] [place] [address] [place] Chloride [Moles/Vol] 104 mmol/L Normal 98-107 [facility] Comment on above: Order Comment: Speci men Type: BLOOD SPECIMENOrdering Facility: [facility] Address: [address] [place] [address] Performed By: #### H STNT, 69718-3 ####[facility]ORYCLIA [id number] [place] [address] [place] CO2 [Moles/Vol] 20 mmol/L Low 22-30 [facility] Comment on above: Order Comment: Speci men Type: BLOOD SPECIMENOrdering Facility: [facility] Address: [address] [place] [address] Performed By: #### H STNT, 18013-4 ####[facility]ORYCLIA [id number] [place] [address] [place] Creatinine [Mass/Vol] 0.47 mg/dL Low 0.58-0.96 [facility] Comment on above: Order Comment: Speci men Type: BLOOD SPECIMENOrdering Facility: [facility] Address: [address] [place] [address] Performed By: #### H STEVE, 37823-9 ####[facility]IATIONCLIA [id number] [place] [id number] [place] eGFRcr SerPlBld CKD-EPI 2020 140 mL/min/1.73m??? Normal >=60 [facility] Comment on above: Order Comment: Destini thorpe Type: BLOOD SPECIMENOrdering Facility: [facility] Address: [address] [place] [address] Result Comment: Shilpa mated Glomerular Filtration Rate (eGFR) is calculated using the 2020 CKD-EPI creatinine equation. This equation utilizes serum creatinine, sex, and age as parameters. The creatinine assay has traceable calibration to isotope dilution-mass spectrometry. Refer to KDIGO guidelines for clinical interpretation. In patients with unstable renal function, e.g. those with acute kidney injury, the eGFR may not accurately reflect actual GFR. Performed By: #### H STEVE, 56902-8 ####[facility] [id number] [place] [address] [place] Glucose [Mass/Vol] 78 mg/dL Normal 74-99 [facility] Comment on above: Order Comment: Destini thorpe Type: BLOOD SPECIMENOrdering Facility: [facility] Address: [address] [place] [address] Result Comment: The [place] Diabetes Association (ADA) provides guidance for cutoff values for fasting glucose and random glucose. The ADA defines fasting as no caloric intake for at least 8 hours. Fasting plasma glucose results between 100 to 125 mg/dL indicate increased risk for diabetes (prediabetes). Fasting plasma glucose results greater than or equal to 126 mg/dL meet the criteria for diagnosis of diabetes. In the absence of unequivocal hyperglycemia, results should be confirmed by repeat testing. In a patient with classic symptoms of hyperglycemia or hyperglycemic crisis, random plasma glucose results greater than or equal to 200 mg/dL meet the criteria for diagnosis of diabetes. Reference: Standards of Medical Care in Diabetes 2016, [place] [employer]. Diabetes Care. 2016.39(Suppl 1). Performed By: #### H STEVE, 33349-2 ####[facility] [id number] [place] [address] [place] Potassium [Moles/Vol] 3.7 mmol/L Normal 3.7-5.1 [facility] Comment on above: Order Comment: Speci men Type: BLOOD SPECIMENOrdering Facility: [facility] Address: [address] [place] [address] Performed By: #### H STNT, 76833-4 ####[facility]ATORYCLIA [id number] [place] [address] [place] Sodium [Moles/Vol] 136 mmol/L Normal 136-144 [facility] Comment on above: Order Comment: Speci men Type: BLOOD SPECIMENOrdering Facility: [facility] Address: [address] [place] [address] Performed By: #### H STNT, 98264-6 ####[facility]ATORYCLIA [id number] [place] [address] [place] Urea nitrogen [Mass/Vol] 8 mg/dL Normal 7-21 [facility] Comment on above: Order Comment: Speci men Type: BLOOD SPECIMENOrdering Facility: [facility] Address: [address] [place] [address] Performed By: #### H STNT, 43257-1 ####[facility]ATORYCLIA [id number] [place] [address] [place] C. trachomatis+N. gonorrhoea e DNA JOHN+probe Ql (Unsp spec)on 01-06-2025 C. trachomatis rRNA JOHN+probe Ql (Unsp spec) Not detected Normal Not detected [facility] Comment on above: Order Comment: Speci men Type: SWABOrdering Facility: [facility] Address: [address] [place] [address] Performed By: #### 3 6902-5, TRVAMP ####[facility]ATORYCLIA [id number] [address] [place] N. gonorrhoeae rRNA JOHN+probe Ql (Unsp spec) Not detected Normal Not detected [facility] Comment on above: Order Comment: Speci men Type: SWABOrdering Facility: [facility] Address: [address] [place] [address] Performed By: #### 3 6902-5, DOROTEO ####[facility]ATORYCLIA [id number] [address] CBC panel Auto (Bld)on 01-06 Erythrocyte distribution width (RBC) [Ratio] 13.7 % Normal 11.5-15.0 [facility] Comment on above: Order Comment: Speci men Type: BLOOD SPECIMENOrdering Facility: [facility] Address: [address] [place] [address] Performed By: #### 5 8410-2 ####[facility]ORATORYCLIA [id number] [address] OF [facility] Hematocrit (Bld) [Volume fraction] 36.1 % Normal 36.0-46.0 [facility] Comment on above: Order Comment: Speci men Type: BLOOD SPECIMENOrdering Facility: [facility] Address: [address] [place] [address] Performed By: #### 5 8410-2 ####[facility]ATORYCLIA [id number] [address] OF [facility] Hemoglobin (Bld) [Mass/Vol] 12.3 g/dL Normal 11.5-15.5 [facility] Comment on above: Order Comment: Speci men Type: BLOOD SPECIMENOrdering Facility: [facility] Address: [address] [place] [address] Performed By: #### 5 8410-2 ####[facility]ATORYCLIA [id number] [address] [place] MCH (RBC) [Entitic mass] 30.8 pg Normal 26.0-34.0 [facility] Comment on above: Order Comment: Speci men Type: BLOOD SPECIMENOrdering Facility: [facility] Address: [address] [place] [address] Performed By: #### 5 8410-2 ####[facility]ATORYCLIA [id number] [address] STATES OF [facility] MCHC (RBC) [Mass/Vol] 34.1 g/dL Normal 30.5-36.0 [facility] Comment on above: Order Comment: Speci men Type: BLOOD SPECIMENOrdering Facility: [facility] Address: [address] [place] [address] Performed By: #### 5 8410-2 ####[facility]ATORYCLIA [id number] [address] OF [facility] MCV (RBC) [Entitic vol] 90.3 fL Normal 80.0-100.0 [facility] Comment on above: Order Comment: Speci men Type: BLOOD SPECIMENOrdering Facility: [facility] Address: [address] [place] [address] Performed By: #### 5 8410-2 ####[facility]ATORYCLIA [id number] [address] Nucleated RBC (Bld) [#/Vol] 10*3/uL Normal <0.01 [facility] Comment on above: Order Comment: Speci men Type: BLOOD SPECIMENOrdering Facility: [facility] Address: [address] [place] [address] Performed By: #### 5 8410-2 ####[facility]ATORYCLIA [id number] [address] [place] Platelet mean volume (Bld) [Entitic vol] 9.3 fL Normal 9.0-12.7 [facility] Comment on above: Order Comment: Speci men Type: BLOOD SPECIMENOrdering Facility: [facility] Address: [address] [place] [address] Performed By: #### 5 8410-2 ####[facility]ATORYCLIA [id number] [address] [place] Platelets (Bld) [#/Vol] 248 10*3/uL Normal 150-400 [facility] Comment on above: Order Comment: Speci men Type: BLOOD SPECIMENOrdering Facility: [facility] Address: [address] [place] [address] Performed By: #### 5 8410-2 ####[facility] LABORATORYCLIA [id number] [place] [id number] [facility] RBC (Bld) [#/Vol] 4.00 10*6/uL Normal 3.90-5.20 [facility] Comment on above: Order Comment: Speci men Type: BLOOD SPECIMENOrdering Facility: [facility] Address: [address] [place], [place] [address] Performed By: #### 5 8410-2 ####[facility]ATORYCLIA [id number] [place] [id number] [facility] WBC (Bld) [#/Vol] 10.26 10*3/uL Normal 3.70-11.00 [facility] Comment on above: Order Comment: Speci men Type: BLOOD SPECIMENOrdering Facility: [facility] Address: [address] [place], [place] [address] Performed By: #### 5 8410-2 ####[facility]ORATORYCLIA [id number] [address] [place] 01-06-2025 CNPN Telephone (OBCARLOSWM) PAL NICHOLAS ([id number]) 3 F Date Time Provider Department 01/06/25 KARINA ADDISON During your visit today, we recorded the following information about you: Magda Hagen, LEVON 01/06/2025 4:55 PM Addendum 19w2d Patient called to report that she is having an increase in vaginal pressure and a change in her vaginal discharge. It is chunkier, but not consistent with a yeast infection. Discharge is yellow/green with an occasional tinge of pink. No itching or irritation. See 01/04 and 01/05 telephone notes. Patient was seen at [facility] OB ED triage on 01/04. The diarrhea has resolved. Advised that she go back to [facility] as the office is closing. Patient asked for an appointment tomorrow instead because of transportation. No available appointments. Advised that she should be evaluated today in case she is having labor. Voiced understanding and believes she could have a friend take her. LEVON Driver Rebecca L, MD 01/07/2025 10:00 AM Signed If not improved work in any cancellations, go to [facility] for eval or schedule tomorrow if openings. MD Honey Begum Lindsey, RN 01/07/2025 10:36 AM Signed Patient was seen at [facility] last night. She has OB and MFM appointment on Saturday. Jocelyne Black RN Allergies As of Date: 01/06/2025 (No Known Allergies) Date Reviewed: 01/06/2025 Reviewed by: Aleksandra Rodriguez RN - Fully Assessed Reason for Visit: OB Vaginal Pressure [Other] Prescriptions as of 01/07/2025 - potassium chloride (K-TAB) 10 mEq tablet Take 1 tablet by mouth two times a day for 2 days. - loperamide (IMODIUM A-D) 2 mg cap(s) Take 1 capsule by mouth four times a day as needed for up to 5 days. - aspirin, enteric coated (ECOTRIN LOW STRENGTH) 81 mg EC tablet Take 1 tablet by mouth once daily. - vit 75/iron/folic/om3 (DAILY ORAL) Take by mouth. - doxylamine succinate (UNISOM, DOXYLAMINE, PO) Take 25 mg by mouth once daily. - pyridoxine, vitamin B6, (VITAMIN B-6) 25 mg tablet Take 25 mg by mouth once daily. - cyclobenzaprine (FLEXERIL) 10 mg tablet Take 1 tablet by mouth three times a day as needed. 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] 12/28/2024 Encounter for supervision of high risk pregnanc*12/28/2024 Abdominal pain affecting (HCC) [O26.8*01/05/2025 Diarrhea [R19.7] 01/05/2025 Hypokalemia [E87.6] 01/05/2025 Dizziness [R42] 01/05/2025 Headache [R51.9] 01/05/2025 Chest pain during (HCC) [O99.891, R07*01/06/2025 Vaginal discharge during (HCC) [O26.8*01/06/2025 Chronic hypertension affecting (HCC) *01/06/2025 19 weeks gestation of (HCC) [Z3A.19] 01/06/2025 Pelvic pressure in (HCC) [O26.899, R1*01/06/2025 Encounter Status:Closed by KARINA ADDISON on 01/07/25 [facility] CONSULTon 01-06-2025 CONSULT HNO ID: [id number] Author: EJ RODRIGUEZ MD Service: Nephrology Author Type: Physician Type: Consults Filed: 01/07/2025 12:42 Note Text: CARDIOLOGY CONSULT NOTE SERVICE DATE: 01/06/2025 SERVICE TIME: 9:56 PM CONSULTING PHYSICIAN: Dr. Rodriguez PCP: No primary care provider on file. ATTENDING: Alexa Dickson MD REASON FOR CONSULT: EKG with non specific ST-T wave abnormalities CHIEF COMPLAINT: No admission diagnoses are documented for this encounter. HPI: Ms. Nicholas is a 19 year old female who is seen today for non specific ST-T wave changes. She has a past medical history of POTS, Ehler's-Danlos syndrome, asthma however not on any medications. She moved from [place] and previously was on beta-luana however stopped taking it for 5 years with control in her symptoms. For the last one week, patient has felt bounding feeling in her chest and relates it to her POTS episode. She also endorses central dull chest pain with radiation to back. Chest pain lasts for few minutes and does not have exacerbating or relieving factors. Her heart rate was noted to be 90-110 bpm during examination and blood pressure was 148/101 mmHg. Patient does not smoke cigarettes, drink alcohol or use recreational drug Labs: BMP: Cr 0.47 mg/dl, potassium 3.7, sodium 136, Bicarb 20 CBC: normal HS ADARSH: <6 ng/L EKG 01/05: NSR, low voltage QRS EKG 01/06: NSR with new T wave inversions in aVF, V4 PAST MEDICAL HISTORY Diagnosis Date Asthma (HCC) 2011 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HCC) POTS (postural orthostatic tachycardia syndrome) Recurrent UTI No past surgical history on file. SOCIAL HISTORY SOCIAL HISTORY[1] No family history on file. ALLERGIES: ALLERGIES No Known Allergies MEDICATIONS: aspirin, enteric coated (ECOTRIN LOW STRENGTH) 81 mg EC tabletTake 1 tablet by mouth once daily.Disp: 90 tabletRfl: 3 vit 75/iron/folic/om3 (DAILY ORAL)Take by mouth.Disp: Rfl: potassium chloride (K-TAB) 10 mEq tabletTake 1 tablet by mouth two times a day for 2 days.Disp: 4 tabletRfl: 0 loperamide (IMODIUM A-D) 2 mg cap(s)Take 1 capsule by mouth four times a day as needed for up to 5 days.Disp: 20 capsuleRfl: 0 doxylamine succinate (UNISOM, DOXYLAMINE, PO)Take 25 mg by mouth once daily.Disp: Rfl: pyridoxine, vitamin B6, (VITAMIN B-6) 25 mg tabletTake 25 mg by mouth once daily.Disp: Rfl: cyclobenzaprine (FLEXERIL) 10 mg tabletTake 1 tablet by mouth three times a day as needed.Disp: 10 tabletRfl: 0 REVIEW OF SYSTEMS: GENERAL: Negative for:Weight loss and Weight gain HEENT: Negative for:Nosebleeds RESPIRATORY: Negative for:Shortness of breath GASTROINTESTINAL: Negative for:Blood in stool MUSCULOSKELETAL: Negtive for: Muscle or joint pain, stiffness, Joint swelling SKIN: No rash HEMATOLOGICAL/LYMPHA TIC: Negative for: Easy bruising and Easy bleeding CARDIOVASCULAR: As stated in HPI. 10 system review negative except as stated in HPI PHYSICAL EXAMINATION: BP 148/101[standing[ Temp (Src) 99 (Temporal) Resp 18 Ht 5' 7 (1.70m) Wt 158 lb (71.7kg) SpO2 99% LMP 08/24/2024 BMI 24.74 kg/(m2). O2 Therapy: Room Air General: Well appearing, in no acute distress, speaking in complete sentences., Well appearing. Psych: Normal Affect Eyes: No subconjunctival hemorrhage Skin: No rash, bruising Oropharynx: Mucous membranes normal Neck: - jugular venous distention, no carotid bruits. Lymph: No cervical lymphadenopathy Lungs: Clear to auscultation bilaterally, no wheezing or rhonchi. Heart: S1, S2 normal, no murmur Extremities: No peripheral edema Neuro: Grossly nonfocal Past 72 Hour Labs: Recent Labs 01/06/25202001/05/25 0114 WBC 10.26 10.50 RBC 4.00 3.73* HB 12.3 11.4* HCT 36.1 33.6* MCV 90.3 90.1 MCH 30.8 30.6 MCHC 34.1 33.9 RDWCV 13.7 14.0 PLT 248 223 MPV 9.3 9.3 GLUC 78 93 BUN 8 5* CREAT 0.47* 0.51* NA 136 139 K 3.7 3.4* CHLOR 104 106 CO2 20* 21* TPROT -- 5.8* ALB -- 3.5* CA 8.6 9.1 ALKPHOS -- 46 TBILI -- 0.3 AST -- 16 ALT -- 13 Lab Results Component Value Date HSTNT <6 01/06/2025 No results found for: PBNP Last Lab Drawn: No results found for this basename: TSH,PROBNP,TG,HDL,LD L,CHOL Impression/Recommend ations 19 years old female with past medical history of POTS not on medication, Ehler's danlos syndrome, asthma, (19w3d) was found to have chest pain with radiation to back. EKG shows non-specific ST-T wave abnormality. Troponin level normal <6 ng/L. - Differentials: POTS induced chest pain (patient having palpitations for about a week); Gastroenteritis (favorable due to her and normal trop); Unstable angina (less likely) - She can follow up as outpatient with Cardiology for stress test/Echocardiogram Plan of care discussed with Dr. Rodriguez Cardiology attending: Discussed this patient with resident over the phone last night. Did feel it was safe for patient to be discharged so (more content not included)... Normal [facility] ECG COMPLETEon 01-06-2025 ECG COMPLETE Ventricular Rate : 79 BPM Atrial Rate : 79 BPM P-R Interval : 120 ms QRS Duration : 76 ms Q-T Interval : 350 ms QTC Calculation(Bazett) : 401 ms Calculated P [place] : -18 degrees Calculated R [place] : 148 degrees Calculated T [place] : -28 degrees NORMAL SINUS RHYTHM RIGHT AXIS DEVIATION LOW VOLTAGE QRS CANNOT RULE OUT INFERIOR INFARCT , AGE UNDETERMINED T WAVE ABNORMALITY, CONSIDER ANTERIOR ISCHEMIA ABNORMAL ECG WHEN COMPARED WITH ECG OF 05-Jan-2025 00:20, QRS AXIS SHIFTED RIGHT Confirmed by MD NAPIER VINAY ([id number]) on 01/07/2025 11:39:00 AM NAME : PAL NICHOLAS PID : [id number] : 2005 Gender : Female Race : ORD : [id number] Procedure Date : Jan 06 2025 20:38:59 Edit Date : Jan 07 2025 11:39:11 Diagnosis: NORMAL SINUS RHYTHM RIGHT AXIS DEVIATION LOW VOLTAGE QRS CANNOT RULE OUT INFERIOR INFARCT , AGE UNDETERMINED T WAVE ABNORMALITY, CONSIDER ANTERIOR ISCHEMIA ABNORMAL ECG WHEN COMPARED WITH ECG OF 05-Jan-2025 00:20, QRS AXIS SHIFTED RIGHT Confirmed by MD NAPIER VINAY ([id number]) on 01/07/2025 11:39:00 AM Test Reason : Chest Pain Location : 200 : [facility] Overread By : MD NAPIER VINAY Edited By : MD NAPIER VINAY Referred By : , Acquired by : ZUNILDA FULLER Normal [facility] HIGH SENSITIVITY TROPONIN To n 01-06-2025 Troponin T.cardiac High sensitivity method [Mass/Vol] <6 Normal <12 [facility] Comment on above: Order Comment: Destini thorpe Type: BLOOD SPECIMEN [facility] Address: [address] [place] [address] Performed By: #### H STNT #### [facility] CLIA [id number] [address] STATES OF [facility] Troponin T.cardiac High sensitivity method [Mass/Vol] <6 Normal <12 [facility] Comment on above: Order Comment: Destini thorpe Type: BLOOD SPECIMENOrdering Facility: [facility] Address: [address] [place] [address] Performed By: #### H STNT, 79104-6 ####[facility]ORATORYCLIA [id number] [address] TRICHOMONAS VAGINALIS NAATon 01-06-2025 T. vaginalis DNA JOHN+probe Ql (Unsp spec) Not detected Normal Not detected [facility] Comment on above: Order Comment: Speci men Type: SWABOrdering Facility: [facility] Address: [address] [place] [address] Performed By: #### 3 6902-5, TRVAMP ####[facility]IATIONCLIA [id number] [address] CBC panel Auto (Bld)on 01-05 Erythrocyte distribution width (RBC) [Ratio] 14.0 % Normal 11.5-15.0 [facility] Comment on above: Order Comment: Speci men Type: BLOOD SPECIMENOrdering Facility: [facility] Address: [address] [place] [address] Performed By: #### 5 8410-2 ####[facility]OCIATIONCLIA [id number] [address] Hematocrit (Bld) [Volume fraction] 33.6 % Low 36.0-46.0 [facility] Comment on above: Order Comment: Speci men Type: BLOOD SPECIMENOrdering Facility: [facility] Address: [address] [place] [address] Performed By: #### 5 8410-2 ####[facility]ATIONCLIA [id number] [address] Hemoglobin (Bld) [Mass/Vol] 11.4 g/dL Low 11.5-15.5 [facility] Comment on above: Order Comment: Speci men Type: BLOOD SPECIMENOrdering Facility: [facility] Address: [address] [place] [address] Performed By: #### 5 8410-2 ####[facility]ORATORYCLIA [id number] [address] MCH (RBC) [Entitic mass] 30.6 pg Normal 26.0-34.0 [facility] Comment on above: Order Comment: Speci men Type: BLOOD SPECIMENOrdering Facility: [facility] Address: [address] [place] [address] Performed By: #### 5 8410-2 ####[facility]ORATORYCLIA [id number] [address] OF [facility] MCHC (RBC) [Mass/Vol] 33.9 g/dL Normal 30.5-36.0 [facility] Comment on above: Order Comment: Speci men Type: BLOOD SPECIMENOrdering Facility: [facility] Address: [address] [place] [address] Performed By: #### 5 8410-2 ####[facility]ATORYCLIA [id number] [address] MCV (RBC) [Entitic vol] 90.1 fL Normal 80.0-100.0 [facility] Comment on above: Order Comment: Speci men Type: BLOOD SPECIMENOrdering Facility: [facility] Address: [address] [place] [address] Performed By: #### 5 8410-2 ####[facility]ATORYCLIA [id number] [address] Nucleated RBC (Bld) [#/Vol] 10*3/uL Normal <0.01 [facility] Comment on above: Order Comment: Speci men Type: BLOOD SPECIMENOrdering Facility: [facility] Address: [address] [place] [address] Performed By: #### 5 8410-2 ####[facility]ATORYCLIA [id number] [address] Platelet mean volume (Bld) [Entitic vol] 9.3 fL Normal 9.0-12.7 [facility] Comment on above: Order Comment: Speci men Type: BLOOD SPECIMENOrdering Facility: [facility] Address: [address] [place] [address] Performed By: #### 5 8410-2 ####[facility] LABORATORYCLIA [id number] [place] [address] [facility] Platelets (Bld) [#/Vol] 223 10*3/uL Normal 150-400 [facility] Comment on above: Order Comment: Speci men Type: BLOOD SPECIMENOrdering Facility: [facility] Address: [address] [place] [address] Performed By: #### 5 8410-2 ####[facility]ATORYCLIA [id number] [address] OF [facility] RBC (Bld) [#/Vol] 3.73 10*6/uL Low 3.90-5.20 [facility] Comment on above: Order Comment: Speci men Type: BLOOD SPECIMENOrdering Facility: [facility] Address: [address] [place] [address] Performed By: #### 5 8410-2 ####[facility]ATORYCLIA [id number] [address] WBC (Bld) [#/Vol] 10.50 10*3/uL Normal 3.70-11.00 [facility] Comment on above: Order Comment: Speci men Type: BLOOD SPECIMENOrdering Facility: [facility] Address: [address] [place] [address] Performed By: #### 5 8410-2 ####[facility]ORATORYCLIA [id number] [address] OF [facility] CNPMissy 01-05-2025 CNPN Telephone (AKPOB) PAL NICHOLAS ([id number]) 3 F Date Time Provider Department 01/05/25 JAYLA KELLER During your visit today, we recorded the following information about you: Jayla Keller MD 01/05/2025 11:19 AM Signed Patient called requesting Rx for potassium and imodium after being seen in the OB ED 1 day ago. Jayla Keller MD Allergies As of Date: 01/05/2025 (No Known Allergies) Date Reviewed: 01/04/2025 Reviewed by: Mariann Milton RN - Fully Assessed Order(s):potassium chloride (K-TAB) 10 mEq tabletTake 1 tablet by mouth two times a day for 2 days.Disp: 4 tabletRfl: 0 loperamide (IMODIUM A-D) 2 mg cap(s)Take 1 capsule by mouth four times a day as needed for up to 5 days.Disp: 20 capsuleRfl: 0 Prescriptions as of 01/05/2025 - potassium chloride (K-TAB) 10 mEq tablet Take 1 tablet by mouth two times a day for 2 days. - loperamide (IMODIUM A-D) 2 mg cap(s) Take 1 capsule by mouth four times a day as needed for up to 5 days. - aspirin, enteric coated (ECOTRIN LOW STRENGTH) 81 mg EC tablet Take 1 tablet by mouth once daily. - vit 75/iron/folic/om3 (DAILY ORAL) Take by mouth. - doxylamine succinate (UNISOM, DOXYLAMINE, PO) Take 25 mg by mouth once daily. - pyridoxine, vitamin B6, (VITAMIN B-6) 25 mg tablet Take 25 mg by mouth once daily. - cyclobenzaprine (FLEXERIL) 10 mg tablet Take 1 tablet by mouth three times a day as needed. 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 LOPERAMIDE 2 MG CAPSULE 20 c* 0 01/05/2025 01/10/2025 Route: PO Sig: Take 1 capsule by mouth four times a day as needed for up to 5 days. Encounter Status:Closed by JAYLA KELLER on 01/05/25 Normal [facility] CNPN Telephone (OBGYWM) PAL NICHOLAS ([id number]) 3 F Date Time Provider Department 01/05/25 LESTER PHILLIPS During your visit today, we recorded the following information about you: Magda Hagen RN 01/05/2025 11:40 AM Signed 19w1d See 01/04 phone note. Patient went to [facility] ED last night. [facility] notes available to review. Patient was prescribed Potassium. She is calling because she has concerns for her lab results. Asking if our providers can review. She is not feeling better today. Having cramping pain still today. Pain rate of 8/10. Took Tylenol at 10:00 am without relief. Overall, she generally feels weak. Denies JAQUEZ today. No diarrhea or any BM yet this morning. She had peanut butter toast and a Liquid IV so far today. Recommended patient try and eat something more, preferably with some protein. States she has no appetite. Denies nausea. Advised if she had a recent GI illness, she needs food to get her strength back. Patient tearful on the phone. Would like to be seen for reassurance in our office today. States she didn't feel completely confident in the diagnosis from [place]. Please advise. LEVON Gardner Karmon, MD 01/05/2025 12:09 PM Signed Patient was seen by Mitesh Kulkarni while at [facility]. I recommend supportive care with hydration, potassium rich foods such as bananas and rest. Agree that after a GI illness it can take several days to feel better. Please keep current appointment on Saturday. MD Honey Infante Lindsey, RN 01/05/2025 12:19 PM Signed Patient notified and voiced understanding. Jocelyne Black RN Allergies As of Date: 01/05/2025 (No Known Allergies) Date Reviewed: 01/04/2025 Reviewed by: Mariann Milton RN - Fully Assessed Reason for Visit: OB Pain [Other] Prescriptions as of 01/05/2025 - potassium chloride (K-TAB) 10 mEq tablet Take 1 tablet by mouth two times a day for 2 days. - loperamide (IMODIUM A-D) 2 mg cap(s) Take 1 capsule by mouth four times a day as needed for up to 5 days. - aspirin, enteric coated (ECOTRIN LOW STRENGTH) 81 mg EC tablet Take 1 tablet by mouth once daily. - vit 75/iron/folic/om3 (DAILY ORAL) Take by mouth. - doxylamine succinate (UNISOM, DOXYLAMINE, PO) Take 25 mg by mouth once daily. - pyridoxine, vitamin B6, (VITAMIN B-6) 25 mg tablet Take 25 mg by mouth once daily. - cyclobenzaprine (FLEXERIL) 10 mg tablet Take 1 tablet by mouth three times a day as needed. 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] 12/28/2024 Encounter for supervision of high risk pregnanc*12/28/2024 Abdominal pain affecting (HCC) [O26.8*01/05/2025 Diarrhea [R19.7] 01/05/2025 Hypokalemia [E87.6] 01/05/2025 Dizziness [R42] 01/05/2025 Headache [R51.9] 01/05/2025 Encounter Status:Closed by JOCELYNE BLACK on 01/05/25 Normal [facility] metabolic 2000 panelon 01-05-2025 Albumin [Mass/Vol] 3.5 g/dL Low 3.9-4.9 [facility] Comment on above: Order Comment: Speci men Type: BLOOD SPECIMENOrdering Facility: [facility] Address: [address] [place] [address] Performed By: #### 2 4323-8 ####[facility] LABORATORYCLIA [id number] [place] [address] [place] ALP [Catalytic activity/Vol] 46 U/L Normal 34-123 [facility] Comment on above: Order Comment: Speci men Type: BLOOD SPECIMENOrdering Facility: [facility] Address: [address] [place] [address] Performed By: #### 2 4323-8 ####[facility]ORATORYCLIA [id number] [place] [address] [place] ALT With P-5'-P [Catalytic activity/Vol] 13 U/L Normal 7-38 [facility] Comment on above: Order Comment: Speci men Type: BLOOD SPECIMENOrdering Facility: [facility] Address: [address] [place] [address] Performed By: #### 2 4323-8 ####[facility]ORATORYCLIA [id number] [place] [address] [place] Anion gap [Moles/Vol] 12 mmol/L Normal 8-15 [facility] Comment on above: Order Comment: Speci men Type: BLOOD SPECIMENOrdering Facility: [facility] Address: [address] [place] [address] Performed By: #### 2 4323-8 ####[facility]ORATORYCLIA [id number] [place] [address] [place] AST With P-5'-P [Catalytic activity/Vol] 16 U/L Normal 13-35 [facility] Comment on above: Order Comment: Speci men Type: BLOOD SPECIMENOrdering Facility: [facility] Address: [address] [place] [address] Performed By: #### 2 4323-8 ####[facility]ORATORYCLIA [id number] [place] [address] [place] Bilirubin [Mass/Vol] 0.3 mg/dL Normal 0.2-1.3 [facility] Comment on above: Order Comment: Speci men Type: BLOOD SPECIMENOrdering Facility: [facility] Address: [address] [place] [address] Performed By: #### 2 4323-8 ####[facility]ORATORYCLIA [id number] [place] [address] [place] Calcium [Mass/Vol] 9.1 mg/dL Normal 8.5-10.2 [facility] Comment on above: Order Comment: Speci men Type: BLOOD SPECIMENOrdering Facility: [facility] Address: [address] [place] [address] Performed By: #### 2 4323-8 ####[facility]ORATORYCLIA [id number] [place] [address] [place] Chloride [Moles/Vol] 106 mmol/L Normal 98-107 [facility] Comment on above: Order Comment: Speci men Type: BLOOD SPECIMENOrdering Facility: [facility] Address: [address] [place] [address] Performed By: #### 2 4323-8 ####[facility]ORATORYCLIA [id number] [place] [address] [place] CO2 [Moles/Vol] 21 mmol/L Low 22-30 [facility] Comment on above: Order Comment: Speci men Type: BLOOD SPECIMENOrdering Facility: [facility] Address: [address] [place] [address] Performed By: #### 2 4323-8 ####[facility] [id number] [address] STATES OF [facility] Creatinine [Mass/Vol] 0.51 mg/dL Low 0.58-0.96 [facility] Comment on above: Order Comment: Destini thorpe Type: BLOOD SPECIMENOrdering Facility: [facility] Address: [address] [place] [address] Performed By: #### 2 4323-8 ####[facility] [id number] [address] eGFRcr SerPlBld CKD-EPI 2020 137 mL/min/1.73m??? Normal >=60 [facility] Comment on above: Order Comment: Destini thorpe Type: BLOOD SPECIMENOrdering Facility: [facility] Address: [address] [place] [address] Result Comment: Shilpa mated Glomerular Filtration Rate (eGFR) is calculated using the 2020 CKD-EPI creatinine equation. This equation utilizes serum creatinine, sex, and age as parameters. The creatinine assay has traceable calibration to isotope dilution-mass spectrometry. Refer to KDIGO guidelines for clinical interpretation. In patients with unstable renal function, e.g. those with acute kidney injury, the eGFR may not accurately reflect actual GFR. Performed By: #### 2 4323-8 ####[facility] [id number] [address] STATES OF [facility] Glucose [Mass/Vol] 93 mg/dL Normal 74-99 [facility] Comment on above: Order Comment: Shannanelsa thorpe Type: BLOOD SPECIMENOrdering Facility: [facility] Address: [address] [place] [address] Result Comment: The [place] [employer] (ADA) provides guidance for cutoff values for fasting glucose and random glucose. The ADA defines fasting as no caloric intake for at least 8 hours. Fasting plasma glucose results between 100 to 125 mg/dL indicate increased risk for diabetes (prediabetes). Fasting plasma glucose results greater than or equal to 126 mg/dL meet the criteria for diagnosis of diabetes. In the absence of unequivocal hyperglycemia, results should be confirmed by repeat testing. In a patient with classic symptoms of hyperglycemia or hyperglycemic crisis, random plasma glucose results greater than or equal to 200 mg/dL meet the criteria for diagnosis of diabetes. Reference: Standards of Medical Care in Diabetes 2016, [place] [employer]. Diabetes Care. 2016.39(Suppl 1). Performed By: #### 2 4323-8 ####[facility]ORATORYCLIA [id number] [address] STATES OF [facility] Potassium [Moles/Vol] 3.4 mmol/L Low 3.7-5.1 [facility] Comment on above: Order Comment: Speci men Type: BLOOD SPECIMENOrdering Facility: [facility] Address: [address] [place] [address] Performed By: #### 2 4323-8 ####[facility]ORATORYCLIA [id number] [address] STATES [facility] Protein [Mass/Vol] 5.8 g/dL Low 6.3-8.0 [facility] Comment on above: Order Comment: Speci men Type: BLOOD SPECIMENOrdering Facility: [facility] Address: [address] [place] [address] Performed By: #### 2 4323-8 ####[facility]ORATORYCLIA [id number] [address] Sodium [Moles/Vol] 139 mmol/L Normal 136-144 [facility] Comment on above: Order Comment: Speci men Type: BLOOD SPECIMENOrdering Facility: [facility] Address: [address] [place] [address] Performed By: #### 2 4323-8 ####[facility]ORATORYCLIA [id number] [address] [place] Urea nitrogen [Mass/Vol] 5 mg/dL Low 7-21 [facility] Comment on above: Order Comment: Speci men Type: BLOOD SPECIMENOrdering Facility: [facility] Address: [address] [place] [address] Performed By: #### 2 4323-8 ####[facility]ORATORYCLIA [id number] [place] [address] [place] ECG COMPLETEon 01-05-2025 ECG COMPLETE Ventricular Rate : 97 BPM Atrial Rate : 97 BPM P-R Interval : 128 ms QRS Duration : 78 ms Q-T Interval : 344 ms QTC Calculation(Bazett) : 436 ms Calculated P [place] : 21 degrees Calculated R [place] : 23 degrees Calculated T [place] : -1 degrees NORMAL SINUS RHYTHM LOW VOLTAGE QRS BORDERLINE ECG NO PREVIOUS ECGS AVAILABLE Confirmed by MD NAPIER VINAY ([id number]) on 01/05/2025 12:13:29 PM NAME : PAL NICHOLAS PID : [id number] : 2005 Gender : Female Race : ORD : [id number] Procedure Date : Jan 05 2025 00:20:24 Edit Date : Jan 05 2025 12:13:36 Diagnosis: NORMAL SINUS RHYTHM LOW VOLTAGE QRS BORDERLINE ECG NO PREVIOUS ECGS AVAILABLE Confirmed by MD NAPIER VINAY ([id number]) on 01/05/2025 12:13:29 PM Test Reason : Dizziness Location : [address] : [place] [address] Overread By : MD NAPIER VINAY Edited By : MD NAPIER VINAY Referred By : , Acquired by : BEN GALVAN [facility] Landen 01-04-2025 CNPN Telephone (LORENAGYWM) PAL NICHOLAS ([id number]) 3 F Date Time Provider Department 01/04/25 MAGDA ARAGON During your visit today, we recorded the following information about you: Maite Peterson, LEVON 01/04/2025 3:29 PM Signed 19w0d Pt calls stating the past 4 to 5 days she has had loose stools. Today started with cramping in lower pelvic region Low back aching/numb pressure feeling (Feels like aching/pressure in back like when she's been on her period). Last 2 days Pt states she has been doing the BRAT diet, but states she has not noticed any difference. Denies abdominal pain, LOF, vomiting. Has taken Tylenol 500mg and stated it did not help AND tried warm bath and also did not help. Pt states the pressure in her back/cramping is getting worse as the day goes on. Does report still having vaginal pressure AND states this is staying the same since at [facility] 12/22/24. Last few weeks, Pt states extremely watery discharge. Went to [facility] at that time d/t having sharp cervical pain AND was treated for BV. Feels hydrated/Has been drinking liquid IV. Does have some burning on urination AND was seen on 12/30/24 in office-UA completed and TRACE protein and TRACE leukocytes. Advised Pt that since pain has worsened as the day as gone on that it would be best to go to [facility] OB triage to be evaluated as no appts available in office at this time. Pt did state she'd feel more comfortable going there and that is essentially why she called as she wanted to discuss with a nurse. Pt states her ride will not be able to pick her up for another 30 minutes, but Pt is agreeable to go to [place]. Dr. Aragon notified. Maite Peterson RN Allergies As of Date: 01/04/2025 (No Known Allergies) Date Reviewed: 01/04/2025 Reviewed by: Mariann Milton, LEVON - Fully Assessed Reason for Visit: Low back aching/cramping pelvic region [Other] Prescriptions as of 01/21/2025 - nitrofurantoin monohydrate and macrocrystal (MACROBID) 100 mg capsule Take 1 capsule by mouth two times a day for 7 days. - aspirin, enteric coated (ECOTRIN LOW STRENGTH) 81 mg EC tablet Take 1 tablet by mouth once daily. - vit 75/iron/folic/om3 (DAILY ORAL) Take by mouth. - doxylamine succinate (UNISOM, DOXYLAMINE, PO) Take 25 mg by mouth once daily. - pyridoxine, vitamin B6, (VITAMIN B-6) 25 mg tablet Take 25 mg by mouth once daily. - cyclobenzaprine (FLEXERIL) 10 mg tablet Take 1 tablet by mouth three times a day as needed. 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] 12/28/2024 Encounter for supervision of high risk pregnanc*12/28/2024 Encounter Status:Closed by MAITE PETERSON on 01/21/25 Normal [facility] CNPNon 12-29-2024 CNPN Telephone (OBGYWM) PAL NICHOLAS ([id number]) 3 F Date Time Provider Department 12/29/24 KARINA ADDISON OBGYWM During your visit today, we recorded the following information about you: Luana Acosta LPN 12/29/2024 5:58 PM Addendum Ob 18w1d called stating that when she went to the restroom noticed a clump of whitish yellow vaginal discharge that was stringy Patient has had ongoing abdominal pain that patient discussed at appointment yesterday. Vaginal cultures collected yesterday were negative for infection. Patient was told to monitor. To call if any LOF or vaginal bleeding or Notices vaginal odor. FYI: Patient has appointment tomorrow for urinary issues. Karina Addison MD 12/29/2024 6:08 PM Signed discharge in can be normal. Agree w/ follow up tomorrow. Karina Addison MD Allergies As of Date: 12/29/2024 (No Known Allergies) Date Reviewed: 12/28/2024 Reviewed by: Ralph Molina LPN - Fully Assessed Reason for Visit: Care [86] Prescriptions as of 12/29/2024 - aspirin, enteric coated (ECOTRIN LOW STRENGTH) 81 mg EC tablet Take 1 tablet by mouth once daily. - vit 75/iron/folic/om3 (DAILY ORAL) Take by mouth. - doxylamine succinate (UNISOM, DOXYLAMINE, PO) Take 25 mg by mouth once daily. - pyridoxine, vitamin B6, (VITAMIN B-6) 25 mg tablet Take 25 mg by mouth once daily. - cyclobenzaprine (FLEXERIL) 10 mg tablet Take 1 tablet by mouth three times a day as needed. - metroNIDAZOLE (FLAGYL) 500 mg tablet Take 1 tablet by mouth two times a day for 7 days. 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] 12/28/2024 Encounter for supervision of high risk pregnanc*12/28/2024 Encounter Status:Closed by KARINA ADDISON on 12/29/24 Normal [facility] BACTERIAL VAGINOSIS NAATon 0 12-28-2024 Lactobacillus crispatus+gasseri+muniz ii + Gardnerella vaginalis + Atopobium vaginae rRNA JOHN+probe Ql (Vag fld) Not detected Normal Not detected [facility] Comment on above: Order Comment: Speci men Type: SWAB [facility] Address: [address] [place] [address] Performed By: #### B VAMP, CVTV #### [facility] CLIA [id number] [address] [place] [address] [place] PARVEEN/TRICHOMONAS NAATon 0 12-28-2024 C. glabrata RNA JOHN+probe Ql (Vag fld) Not detected Normal Not detected [facility] Comment on above: Order Comment: Speci men Type: SWAB [facility] Address: [address] [place] [address] Performed By: #### B VAMP, CVTV #### [facility] CLIA [id number] [address] [place] [address] OF M[place] Parveen sp DNA JOHN+probe Ql (Vag fld) Not detected Normal Not detected [facility] Comment on above: Order Comment: Speci men Type: SWAB [facility] Address: [address] [place] [address] Result Comment: The Parveen species group target includes C. albicans, C. tropicalis, C. parapsilosis, and C. dubliniensis. Performed By: #### Helder VAMP, CVTV #### [facility] CLIA [id number] [address] [place] [address] T. vaginalis DNA JOHN+probe Ql (Unsp spec) Not detected Normal Not detected [facility] Comment on above: Order Comment: Speci men Type: SWAB [facility] Address: [address] [place] [address] Performed By: #### Helder VAMP, CVTV #### [facility] CLIA [id number] [address] [place] [address] OF MELY Landen [facility]20[facility] ([id number]) 3 F Date Time Provider Department 12/25/24 LYNNETTE TAPIA During your visit today, we recorded the following information about you: Isaura Pereira RN 12/25/2024 12:14 PM [facility] [place] In chart prep binder for NOB appt on 12/28 with CP. Isaura Pereira RN Allergies As of Date: 12/25/2024 (No Known Allergies) Date Reviewed: 12/22/2024 Reviewed by: Tressa Winters DO - Fully Assessed Reason for Visit: Received Outside Medical Records [3576] Prescriptions as of 12/25/2024 - cyclobenzaprine (FLEXERIL) 10 mg tablet Take 1 tablet by mouth three times a day as needed. - metroNIDAZOLE (FLAGYL) 500 mg tablet Take 1 tablet by mouth two times a day for 7 days. Problem List As Of Date 12/25/2024 Noted Resolved Bacterial vaginosis [N76.0, B96.89] 12/22/2024 Abdominal pain during in second trime*12/22/2024 Encounter Status:Closed by ISAURA PEREIRA on 12/25/24 Normal [facility] Urine Cultureon 12-24-2024 [facility] Mixed Gram Positive Organisms Tenino Count 11,000-25,000 MIXC Mixed contaminants. Submit a new specimen if indicated. Normal [facility] Comment on above: Performed By: #### M 100.2200 #### [facility] [address] [place], [address] [facility] 12-22-2024 CNPN Telephone (OBGYWM) PAL NICHOLAS ([id number]) 3 F Date Time Provider Department 12/22/24 KARINA ADDISON OBGYWM During your visit today, we recorded the following information about you: Magda Hagen, RN 12/22/2024 12:30 PM Signed [facility] seen at [facility] ER yesterday for pelvic pain. LMP 08/24/24. Approximately 17w1d. Patient calling because she still continues to have pelvic pain and pressure. Pain rate of 5-6. Taking Tylenol and using heat with no relief. States when she went to the ER her pain was 8-9. Denies LOF or VB. Per [facility] ER report: Discussed the case with on-call [employer] SUPERVISOR for [facility] Dr. Aragon who states that she can follow-up with them on Saturday. She was advised to return with worsening symptoms or any concerns. She is agreeable this plan all question concerns answered she was discharged home in stable condition. Patient is scheduled for NOB on 12/28/24. Pain is not worsening, but patient states she called because it isn't better. Advised to go back to ER if her pain worsens or if she develops LOF or vaginal bleeding. Recommended patient come to our office to sign a release of medical records from her previous OB. [facility] ER report to [facility] to review. LEVON Gardner Rebecca L, MD 12/22/2024 3:41 PM Signed Agree w/ keep scheduled appointment. Make sure we have US results/labs for NOB. If infection ruled out and no bleeding would recommend stretching, tylenol and warm baths prn. Can return to ED if urgent issue or go to AGNELA at [facility] or see if there is a sooner NOB elsewhere to get her established then f/u here. MD Hieu Begum Jennifer, RN 12/22/2024 4:23 PM Signed Patient notified. Magda Hagen RN Allergies As of Date: 12/22/2024 (Not on File) Date Reviewed: Never Reviewed Reason for Visit: OB Pelvic Pain [Other] Problem List As Of Date: 12/22/2024 (None) Encounter Status:Closed by MAGDA HAGEN on 12/22/24 Normal [facility] Absolute lymphocyte countOrd ered By: Aftab Mendoza on 12-21-2024 Lymphocytes Auto (Unsp spec) [#/Vol] 1.91 10*3/uL 0.83-4.51 [facility] Absolute neutrophil countOrd ered By: Aftab Mendoza on 12-21-2024 Neutrophils (Bld) [#/Vol] 7.6 10*3/uL 2.0-7.7 [facility] Anion gap in Serum or Plasma Ordered By: Aftab Mendoza on 12-21-2024 Anion gap [Moles/Vol] 13 mmol/L 5-15 [facility] Automated lymphocyte count a s percentage of total leukocytesOrdered By: Aftabzofia Mendoza on 12-21-2024 Lymphocytes/100 WBC Auto (Unsp spec) 18.4 % Low 19-41 [facility] BUN/creatinine ratioOrdered By: Aftabzofia Mendoza on 12-21-2024 Urea nitrogen/Creatinine [Mass ratio] 13.0 mg/mg 10-20 [facility] Basophil percentageOrdered B y: Aftab Mendoza on 12-21-2024 Basophils/100 WBC (Bld) 0.4 % 0-1 [facility] Bilirubin Test strip Ql (U)O rdered By: Aftabzofia Mendoza on 12-21-2024 Bilirubin Ql (U) Negative Negative [facility] Bilirubin, totalOrdered By: Aftabzofia Mendoza on 12-21-2024 Bilirubin [Mass/Vol] 0.26 mg/dL 0.00-1.30 [facility] CBC W/Diff, Automatedon 11-25 Absolute Lymph 1.91 X10 3/uL Normal 0.83-4.51 [facility] Comment on above: Performed By: #### L 100.0100 #### [facility] [address] [place], [address] Absolute Neut 7.6 X10 3/uL Normal 2.0-7.7 [facility] Comment on above: Performed By: #### L 100.0100 #### [facility] [address] [place], [address] Basophils/100 WBC (Bld) 0.4 % Normal 0-1 [facility] Comment on above: Performed By: #### L 100.0100 #### [facility] [address] [place], [address] Eosinophils/100 WBC (Bld) 1.4 % Normal 0-5 [facility] Comment on above: Performed By: #### L 100.0100 #### [facility] [address] [place], [address] Erythrocyte distribution width (RBC) [Ratio] 14.0 % Normal 11.6-14.6 [facility] Comment on above: Performed By: #### L 100.0100 #### [facility] [address] [place], [address] Hematocrit (Bld) [Volume fraction] 36.3 % Low 37-47 [facility] Comment on above: Performed By: #### L 100.0100 #### [facility] [address] [place], [address] Hemoglobin (Bld) [Mass/Vol] 12.5 g/dL Normal 12.0-15.0 [facility] Comment on above: Performed By: #### L 100.0100 #### [facility] [address] [place], [address] IG% 0.700 Normal 0.0-0.9 [facility] Comment on above: Result Comment: IG% - Immature Granulocytes (promyelocytes, myelocytes and metamyelocytes) > 1% indicates that a LEFT SHIFT is Present. Performed By: #### L 100.0100 #### [facility] [address] [place], [address] Lymphocytes/100 WBC (Bld) 18.4 % Low 19-41 [facility] Comment on above: Performed By: #### L 100.0100 #### [facility] [address] [place], [address] MCH (RBC) [Entitic mass] 30.3 pg Normal 27.0-32.0 [facility] Comment on above: Performed By: #### L 100.0100 #### [facility] [address] [place], [address] MCHC (RBC) [Mass/Vol] 34.4 g/dL Normal 32-36 [facility] Comment on above: Performed By: #### L 100.0100 #### [facility] [address] [place], [address] MCV (RBC) [Entitic vol] 88.1 fL Normal 81-99 [facility] Comment on above: Performed By: #### L 100.0100 #### [facility] [address] [place], [address] Monocytes/100 WBC (Bld) 6.2 % Normal 0-10 [facility] Comment on above: Performed By: #### L 100.0100 #### [facility] [address] [place], [address] Neutrophils/100 WBC (Bld) 72.9 % High 47-70 [facility] Comment on above: Performed By: #### L 100.0100 #### [facility] [address] [place], [address] Nucleated RBC (Bld) [#/Vol] 0 10*3/uL Normal 0-5 [facility] Comment on above: Performed By: #### L 100.0100 #### [facility] [address] [place], [address] Platelet mean volume (Bld) [Entitic vol] 9.1 fL Normal 6.2-12.0 [facility] Comment on above: Performed By: #### L 100.0100 #### [facility] [address] [place], [address] Platelets (Bld) [#/Vol] 248 10*3/uL Normal 150-450 [facility] Comment on above: Performed By: #### L 100.0100 #### [facility] [address] [place], [address] RBC (Bld) [#/Vol] 4.12 10*6/uL Low 4.2-5.4 [facility] Comment on above: Performed By: #### L 100.0100 #### [facility] [address] [place], [address] RDW SD 44.6 fl High 35.1-43.9 [facility] Comment on above: Performed By: #### L 100.0100 #### [facility] [address] [place], [address] WBC (Bld) [#/Vol] 10.4 10*3/uL Normal 4.4-11.0 [facility] Comment on above: Performed By: #### L 100.0100 #### [facility] [address] [place], [address] Carbon dioxide, total [Moles /volume] in Central venous bloodOrdered By: Aftab Mendoza on 12-21-2024 CO2 [Moles/Vol] 20.6 mmol/L Low 21.0-32.0 [facility] Chloride assayOrdered By: Travis Mendoza on 12-21-2024 Chloride [Moles/Vol] 103 mmol/L 98-108 [facility] Comprehensive Metabolic Prof ilon 12-21-2024 Albumin [Mass/Vol] 3.8 g/dL Normal 3.5-5.0 [facility] Comment on above: Performed By: #### L 500.4050 #### [facility] [address] [place], [address] Albumin/Globulin [Mass ratio] 1.5 {ratio} Normal 0.9-2.4 [facility] Comment on above: Performed By: #### L 500.4050 #### [facility] [address] [place], [address] ALK PHOS 44 U/L Normal 35-104 [facility] Comment on above: Performed By: #### L 500.4050 #### [facility] [address] [place], [address] ALT [Catalytic activity/Vol] 10 U/L Normal <=34 [facility] Comment on above: Performed By: #### L 500.4050 #### [facility] [address] [place], [address] AST [Catalytic activity/Vol] 16 U/L Normal <=31 [facility] Comment on above: Performed By: #### L 500.4050 #### [facility] [address] [place], [address] Bilirubin [Mass/Vol] 0.26 mg/dL Normal 0.00-1.30 [facility] Comment on above: Performed By: #### L 500.4050 #### [facility] [address] [place], [address] BUN/CRE 13.0 RATIO Normal 10-20 [facility] Comment on above: Performed By: #### L 500.4050 #### [facility] [address] [place], [address] Calcium [Mass/Vol] 9.0 mg/dL Normal 7.6-11.0 [facility] Comment on above: Performed By: #### L 500.4050 #### [facility] [address] [place], [address] Chloride [Moles/Vol] 103 mmol/L Normal 98-108 [facility] Comment on above: Performed By: #### L 500.4050 #### [facility] [address] [place], [address] CO2 [Moles/Vol] 20.6 mmol/L Low 21.0-32.0 [facility] Comment on above: Performed By: #### L 500.4050 #### [facility] [address] [place], [address] Creatinine [Mass/Vol] 0.54 mg/dL Low 0.70-1.20 [facility] Comment on above: Performed By: #### L 500.4050 #### [facility] [address] [place], [address] ECRCL 161.60 ml/min Normal 50-250 [facility] Comment on above: Performed By: #### L 500.4050 #### [facility] [address] [place] [place], [address] GAP 13 Normal 5-15 [facility] Comment on above: Performed By: #### L 500.4050 #### [facility] [address] [place] [place], [address] GFR/1.73 sq M.predicted among non-blacks MDRD (S/P/Bld) [Vol rate/Area] 135 mL/min/{1.73_m2} Normal >60 [facility] Comment on above: Result Comment: mL/m in/1.73m2 CKD-EPI Creatinine Equation (2020) Performed By: #### L 500.4050 #### [facility] [address] [place], [address] Globulin (S) [Mass/Vol] 2.6 g/dL Normal 2.2-4.2 [facility] Comment on above: Performed By: #### L 500.4050 #### [facility] [address] [place] [place], [address] Glucose [Mass/Vol] 118 mg/dL High 70-99 [facility] Comment on above: Performed By: #### L 500.4050 #### [facility] [address] [place], [address] Potassium [Moles/Vol] 3.8 mmol/L Normal 3.3-5.1 [facility] Comment on above: Performed By: #### L 500.4050 #### [facility] [address] [place], [address] Sodium [Moles/Vol] 137 mmol/L Normal 133-145 [facility] Comment on above: Performed By: #### L 500.4050 #### [facility] [address] [place], [address] T PROT 6.5 g/dL Normal 5.9-8.4 [facility] Comment on above: Performed By: #### L 500.4050 #### [facility] [address] [place], [address] Urea nitrogen [Mass/Vol] 7 mg/dL Normal 4-19 [facility] Comment on above: Performed By: #### L 500.4050 #### [facility] [address] [place], [address] Emergency Department Summary on 12-21-2024 Emergency Department Summary [facility] Medical Records Department [address] [place] [address] Emergency Department Summary 12/21/24 MR#: [id number] Acct: [id number] Name: PAL NICHOLAS Rep #: [id number] : 2005 19 From: Aftab Mendoza DO PCP: Care Physician,No Primary Status:REG ER Location: ED HPI HPI - Female History of Present Illness Chief Complaint: Female C/O Narrative Narrative: Patient is a 19-year-old female G1, P0 currently 17 weeks no significant past medical history who presents to the emergency department with chief complaint of cramping and pressure. Patient states that earlier this evening she noted that she had a lot of cramping and pressure in her lower pelvis and notes that she came here for the valuation management. States that she is following with [facility]. Patient denies any vaginal spotting or bleeding. [facility] Medical History (Updated 12/21/24 @ 23:[address] Aftab Mendoza DO) POTS (postural orthostatic tachycardia syndrome) Myles-Danlos syndrome Allergy/AdvReac Type Severity Reaction Status Date / Time No Known Allergies Allergy Verified 12/21/24 20:27 Social History Smoking Status: Never smoker ROS ROS ED ROS Narrative Constitutional: Denies any fevers, chills, headaches, lightness, dizziness Eyes: Denies double vision Cardiovascular: Denies chest pain Respiratory: Denies shortness of breath Abdomen: Complains of lower abdominal pressure as noted above denies nausea vomiting : Denies any vaginal spotting or bleeding denies any painful urination Neurological: Denies any numbness, wheeze, tingling Musculoskeletal: Denies back pain Skin: Denies any rashes or lesions EXAM Physical Exam Narrative Exam Narrative: General: Patient lying in bed rest comfortably did not appear to be in acute distress Head: Atraumatic, normocephalic Eyes: PERRL bilaterally, EOMI blood, no conjunctival injection noted Neck: Soft, supple, trachea midline Cardiovascular: Patient tachycardic with a regular rhythm Respiratory: Clear to auscultation bilaterally Abdomen: Soft, gravid abdomen no tenderness to palpation Extremities: +5/5 strength in the bilateral upper and lower extremities Neurological: Patient follow commands knew that she was at [facility] the year is 2024 Skin: Warm, dry, tact no rashes or lesions noted Const Vital Signs: 12/21/24 20:27 12/21/24 22:26 Temperature 97.4 F L Temperature Source Oral Pulse Rate 106 H 80 Respiratory Rate 18 18 Blood Pressure 127/91 H 110/58 L Blood Pressure Mean 103 75 Pulse Ox 99 100 Oxygen Delivery Method Room Air Room Air MDM MDM MDM Narrative Medical decision making narrative: Patient is a 19-year-old female who presented to the Emergency Department 17 weeks with a chief complaint of pressure and cramping in her lower abdomen. On the differential diagnose includes but not limited to threatened miscarriage, UTI, dehydration. Once workup is obtained reviewed she will be reevaluated. Patient will be given 2 L of IV fluids heart tones 130 Patient CBC reviewed showed no evidence leukocytosis white blood count normal 10.4, hemoglobin 12.5, platelet count normal at 248. Patient sodium was normal at 137, potassium normal 3.8,, dioxide slightly low at 20.6, AST and ALT are 16 and 10 respectively total bilirubin normal at 0.26. Patient urinalysis reviewed showed no evidence of infection. Discussed the case with on-call PAINT DEPARTMENT SUPERVISOR for [facility] Dr. Aragon who states that she can follow-up with them on Saturday. She was advised to return with worsening symptoms or any concerns. She is agreeable this plan all question concerns answered she was discharged home in stable condition. Lab Data Labs: Laboratory Results - last 24 hr 12/21/24 12/21/24 21:36 21:58 WBC 10.4 RBC 4.12 L Hgb 12.5 Hct 36.3 L MCV 88.1 MCH 30.3 MCHC 34.4 RDW Std Deviation 44.6 H RDW Coeff of Jeannie 14.0 Plt Count 248 MPV 9.1 Immature Gran % (Auto) 0.700 Neut % (Auto) 72.9 H Lymph % (Auto) 18.4 L [place] % (Auto) 6.2 Eos % (Auto) 1.4 Baso % (Auto) 0.4 Absolute Neuts (auto) 7.6 Absolute Lymphs (auto) 1.91 Nucleated RBC % 0 Sodium 137 Potassium 3.8 Chloride 103 Carbon Dioxide 20.6 L Anion Gap 13 BUN 7 Creatinine 0.54 L Estim Creat Clear Calc 161.60 Est GFR (MDRD) Non-Af 135 BUN/Creatinine Ratio 13.0 Glucose 118 H Calcium 9.0 Total Bilirubin 0.26 AST 16 ALT 10 Alkaline Phosphatase 44 Total Protein 6.5 Albumin 3.8 Globulin 2.6 Albumin/Globulin Ratio 1.5 Urine Color Yellow Urine Clarity Clear Urine pH 6.5 Ur Specific [place] 1.010 Urine Protein N (more content not included)... Normal [facility] Eosinophil percentageOrdered By: Aftab Mendoza on 12-21-2024 Eosinophils/100 WBC (Bld) 1.4 % 0-5 [facility] Erythrocyte distribution wid th ratioOrdered By: Aftab Mendoza on 12-21-2024 Erythrocyte distribution width (RBC) [Ratio] 14.0 % 11.6-14.6 [facility] Erythrocyte distribution wid th standard deviationOrdered By: Aftab Mendoza on 12-21-2024 Erythrocyte distribution width (RBC) [Ratio] 44.6 fl High 35.1-43.9 [facility] Glomerular filtration rate ( GFR) estimation/1.73 sq m using serum, plasma, or whole bOrdered By: Aftab Mendoza on 12-21-2024 GFR/1.73 sq M.predicted among non-blacks MDRD (S/P/Bld) [Vol rate/Area] 135 mL/min/{1.73_m2} >60 [facility] Comment on above: mL/min/1.73m2 CKD-EP I Creatinine Equation (2020) Hematocrit Auto (Bld) [Volum e fraction]Ordered By: Aftab Mendoza on 12-21-2024 Hematocrit (Bld) [Volume fraction] 36.3 % Low 37-47 [facility] Hemoglobin measurementOrdere d By: Aftab Mendoza on 12-21-2024 Hemoglobin (Bld) [Mass/Vol] 12.5 g/dL 12.0-15.0 [facility] Immature granulocytes/100 WB C Auto (Bld)Ordered By: Aftab Mendoza on 12-21-2024 Immature granulocytes/100 WBC (Bld) 0.700 % 0.0-0.9 [facility] Comment on above: IG% - Immature Granu locytes (promyelocytes, myelocytes and metamyelocytes) > 1% indicates that a LEFT SHIFT is Present. Ketones Test strip Ql (U)Ord ered By: Aftab Mendoza on 12-21-2024 Ketones Ql (U) Negative Negative [facility] - Chemistry and C hemistry - challengeOrdered By: Aftab Mendoza on 12-21-2024 AST [Catalytic activity/Vol] 16 U/L <32 [facility] MCV (mean corpuscular volume ) determinationOrdered By: Aftab Mendoza on 12-21-2024 MCV (RBC) [Entitic vol] 88.1 fL 81-99 [facility] Mean corpuscular hemoglobin (MCH) determinationOrdered By: Aftab Mendoza 12-21-2024 MCH (RBC) [Entitic mass] 30.3 pg 27.0-32.0 [facility] Mean corpuscular hemoglobin concentration (MCHC) determinationOrdered By: Aftab Mnedoza on 12-21-2024 MCHC (RBC) [Mass/Vol] 34.4 g/dL 32-36 [facility] Mean platelet volume determi nationOrdered By: Aftab Mendoza on 12-21-2024 Platelet mean volume (Bld) [Entitic vol] 9.1 fL 6.2-12.0 [facility] Microscopic analysis of urin e for red blood cells (RBC)Ordered By: Aftab Mendoza on 12-21-2024 Microscopic analysis of urine for red blood cells (RBC) 0-5 SEEN /hpf 0-5 [facility] Monocyte percentageOrdered B y: Aftab Mendoza on 12-21-2024 Monocytes/100 WBC (Bld) 6.2 % 0-10 [facility] Mucus LM Ql (Urine sed)Order ed By: Aftab Mendoza on 12-21-2024 Mucus Ql (Urine sed) 0 SEEN /hpf [facility] Neutrophil percentageOrdered By: Aftab Mendoza on 12-21-2024 Neutrophils/100 WBC (Bld) 72.9 % High 47-70 [facility] Nitrite Test strip Ql (U)Ord ered By: Aftab Mendoza on 12-21-2024 Nitrite Ql (U) Negative Negative [facility] Nucleated red blood cell per centageOrdered By: Aftab Mendoza on 12-21-2024 Nucleated RBC/100 WBC (Bld) [Ratio] 0 % 0-5 [facility] Platelet countOrdered By: Travis Mendoza on 12-21-2024 Platelets (Bld) [#/Vol] 248 10*3/uL 150-450 [facility] Potassium measurement (mass/ volume)Ordered By: Aftab Mendoza on 12-21-2024 Potassium (Unsp spec) [Mass/Vol] 3.8 mmol/L 3.3-5.1 [facility] Protein Test strip Ql (U)Ord ered By: Aftab Mendoza on 12-21-2024 Protein Ql (U) Negative Negative [facility] RBC Auto (Bld) [#/Vol]Ordere d By: Aftab Mendoza on 12-21-2024 RBC (Bld) [#/Vol] 4.12 10*6/uL Low 4.2-5.4 [facility] Serum creatinine measurement (mass/volume)Ordered By: Aftab Mendoza on 12-21-2024 Creatinine [Mass/Vol] 0.54 mg/dL Low 0.70-1.20 [facility] Serum globulin measurementOr dered By: Aftab Mendoza on 12-21-2024 Globulin (S) [Mass/Vol] 2.6 g/dL 2.2-4.2 [facility] Serum glucose measurement (m ass/volume)Ordered By: Aftab Mendoza on 12-21-2024 Glucose [Mass/Vol] 118 mg/dL High 70-99 [facility] Serum or plasma alanine [place] otransferase (ALT) measurementOrdered By: Aftab Mendoza on 12-21-2024 ALT [Catalytic activity/Vol] 10 U/L <35 [facility] Serum or plasma albumin mak urement (mass/volume)Ordered By: Aftab Mendoza on 12-21-2024 Albumin [Mass/Vol] 3.8 g/dL 3.5-5.0 [facility] Serum or plasma albumin/glob ulin mass ratioOrdered By: Aftab Mendoza on 12-21-2024 Albumin/Globulin [Mass ratio] 1.5 {ratio} 0.9-2.4 [facility] Serum or plasma alkaline cristofer sphatase measurementOrdered By: Aftab Mendoza on 12-21-2024 ALP [Catalytic activity/Vol] 44 U/L 35-104 [facility] Serum or plasma calcium mak urement (mass/volume)Ordered By: Aftab Mendoza on 12-21-2024 Calcium [Mass/Vol] 9.0 mg/dL 7.6-11.0 [facility] Serum or plasma urea nitroge n measurement (mass/volume)Ordered By: Aftab Mendoza on 12-21-2024 Urea nitrogen [Mass/Vol] 7 mg/dL 4-19 [facility] Sodium levelOrdered By: Chino Mendoza on 12-21-2024 Sodium [Moles/Vol] 137 mmol/L 133-145 [facility] Squamous epithelial cells de tection in urine sediment by light microscopyOrdered By: Aftab Mendoza on 12-21-2024 Epithelial cells.squamous LM Ql (Urine sed) 0-5 SEEN /hpf 5-10 [facility] Total proteinOrdered By: Gustavo Mendoza on 12-21-2024 Protein [Mass/Vol] 6.5 g/dL 5.9-8.4 [facility] Urinalysis, Completeon 12-21 EPI,SQUAMOUS 0-5 SEEN Normal 5-10 [facility] Comment on above: Order Comment: CLEAN CATCH Performed By: #### L 400.0001 #### [facility] [address] [place], [address] RBC 0-5 SEEN Normal 0-5 [facility] Comment on above: Order Comment: CLEAN CATCH Performed By: #### L 400.0001 #### [facility] [address] [place], [address] WBC 0-5 SEEN Normal 0-5 [facility] Comment on above: Order Comment: CLEAN CATCH Performed By: #### L 400.0001 #### [facility] [address] [place], [address] BACTERIA 0 SEEN Normal None Seen [facility] Comment on above: Order Comment: CLEAN CATCH Performed By: #### L 400.0001 #### [facility] [address] [place], [address] Mucus Ql (Urine sed) 0 SEEN Normal [facility] Comment on above: Order Comment: CLEAN CATCH Performed By: #### L 400.0001 #### [facility] [address] [place], [address] Urine clarityOrdered By: Gustavo Mendoza on 12-21-2024 Clarity (U) Clear Clear [facility] Urine color determinationOrd ered By: Aftab Mendoza on 12-21-2024 Color (U) Yellow Yellow [facility] Urine cultureOrdered By: Gustavo Mendoza on 12-21-2024 Bacteria identified Cx Nom (U) Positive Abnormal [facility] Urine glucose detectionOrder ed By: Aftab Mendoza on 12-21-2024 Glucose Ql (U) Normal mg/dl Normal [facility] Urine leukocyte esterase det ection by dipstickOrdered By: Aftab Mendoza on 12-21-2024 Leukocyte esterase Test strip Ql (U) Negative Negative [facility] Urine pHOrdered By: Aftab valentin on 12-21-2024 pH (U) 6.5 [pH] 5.0 - 8.0 [facility] Urine sediment bacteria coun t by microscopy (number/high power field)Ordered By: Aftab Mendoza on 12-21-2024 Bacteria LM.HPF (Urine sed) [#/Area] 0 /[HPF] None Seen [facility] Urine specific gravity measu rementOrdered By: Aftab Mendoza on 12-21-2024 Specific gravity (U) [Rel density] 1.010 1.002-1.030 [facility] Urine urobilinogen measureme ntOrdered By: Aftab Mendoza on 12-21-2024 Urobilinogen Ql (U) Normal mg/dl Normal [facility] White blood cell (WBC) count Ordered By: Aftab Mendoza on 12-21-2024 WBC (Bld) [#/Vol] 10.4 10*3/uL 4.4-11.0 [facility] White blood cell countOrdere d By: Aftab Mendoza on 12-21-2024 White blood cell count 0-5 SEEN /hpf 0-5 [facility] CNPNon 12-01-2024 CNPN Telephone (OGFVWE) PAL NICHOLAS ([id number]) 3 F Date Time Provider Department 12/01/24 NURSE SHRINKING MACHINE OPERATOR VKaren OLNEY OGFVWE During your visit today, we recorded the following information about you: Maria Alejandra Kay RN 12/01/2024 8:37 AM Signed ----- Message from Rica Pendleton sent at 11/30/2024 4:05 PM EDT ----- Regarding: New/[facility] OB 16 weeks Patient has been identified by name and Date of : Yes Patient: Pal Nicholas Date of : 2005 Provider for this encounter : [facility] SHRINKING MACHINE OPERATOR WS Reason for call: New OB patient (16 weeks as of 11/30/24), [place] from [place] Was an appointment scheduled: No Reason for requesting visit (RFV/signs and symptoms/diagnosis) : Establish with OB at [facility] for continuation of care. Person calling: self Return call to: self Call patient at: [phone] (cell), it is OK to leave message Payor: [employer] / Plan: BLUE CARD PPO OOS / Product Type: PPO / Maria Alejandra Cortes RN 12/01/2024 8:39 AM Signed Call placed to patient to triage for new OB appt. No answer, will try later Maria Alejandra King RN, RN 12/01/2024 10:10 AM Signed Call placed to patient to triage for new OB appt. Left message for patient to call back Maria Alejandra King RN, RN 12/01/2024 10:34 AM Signed Name and verified. Patient wishes to transfer to [facility] for OB care. AMARI? 05/31/25 Gestational age? 14w1d Patient aware to sign up for My Chart so she can receive the family day care worker messages. What facility is she transferring from? [facility] in [place] Moving to [place] in 2 weeks and will be approx 16 wks at that time When was her last office visit or will be the last visit with the current facility? yesterday Does patient have records she is bringing with her? Can have them faxed but will need fax number Any current pelvic pain/vaginal bleeding or any medical concerns that affect the ? Ehler's Danlos Syndrome diagnosed 4 years ago Which office/provider would the patient like to establish in? [place] Will route this encounter to the desired office. Maria Alejandra Kay RN Allergies As of Date: 12/01/2024 (Not on File) Date Reviewed: Never Reviewed Reason for Visit: Care Coordination [3491] Problem List As Of Date: 12/01/2024 (None) Encounter Status:Closed by MAGDA HAGEN on 12/02/24 Normal [facility] Vital Signs Date Time Vital Sign Value Performing Clinician Adina salmon 02-02-2025 21:12-0400 Body temperature 98.8 [degF] Dr. Aftab Mendoza DO Work Phone: [facility] 02-02-2025 21:12-0400 Diastolic blood pressure 78 mm[Hg] Dr. Aftab Mendoza DO Work Phone: [facility] 02-02-2025 21:12-0400 Heart rate 109 /min Dr. Aftab Mendoza DO Work Phone: [facility] 02-02-2025 21:12-0400 Respiratory rate 16 /min Dr. Aftab Mendoza DO Work Phone: [facility] 02-02-2025 21:12-0400 SaO2% (BldA) [Mass fraction] 98 % Dr. Aftab Mendoza DO Work Phone: [facility] 02-02-2025 21:12-0400 Systolic blood pressure 123 mm[Hg] Dr. Aftab Mendoza DO Work Phone: 8(113)[phone] [place] [address] 02-02-2025 21:07-0400 Body height 170.[address] Aftab Mendoza DO Work Phone: 7(020)764-797255 [place] [address] 02-02-2025 21:07-0400 Body mass index (BMI) [Ratio] 27.2 kg/m2 Dr. Aftab Mendoza DO Work Phone: [facility] 02-02-2025 21:07-0400 Body weight 78.[address] Aftab Mendoza DO Work Phone: [facility] 02-02-2025 14:04-0400 Body mass index (BMI) [Ratio] 27.41 kg/m2 Lester Phillips MD Work Phone: [facility] 02-02-2025 14:04-0400 Body weight 79.38 kg Lester Phillips MD Work Phone: [facility] 02-02-2025 14:04-0400 Diastolic blood pressure 78 mm[Hg] Lester Phillips MD Work Phone: [facility] 02-02-2025 14:04-0400 Systolic blood pressure 122 mm[Hg] Lester Phillips MD Work Phone: [facility] 01-20-2025 09:55-0400 Body mass index (BMI) [Ratio] 26.31 kg/m2 Karina Blanco MD Work Phone: [facility] 01-20-2025 09:55-0400 Body weight 76.2 kg Karina Blanco MD Work Phone: [facility] 01-20-2025 09:55-0400 Diastolic blood pressure 62 mm[Hg] Karina Blanco MD Work Phone: [facility] 01-20-2025 09:55-0400 Systolic blood pressure 116 mm[Hg] Karina Blanco MD Work Phone: [facility] 01-11-2025 15:00-0400 Body mass index (BMI) [Ratio] 25.34 kg/m2 Ramakrishna Corley MD Work Phone: [facility] 01-11-2025 15:00-0400 Body weight 73.39 kg Ramakrishna Corley MD Work Phone: [facility] 01-11-2025 15:00-0400 Diastolic blood pressure 70 mm[Hg] Ramakrishna Corley MD Work Phone: [facility] 01-11-2025 15:00-0400 Systolic blood pressure 110 mm[Hg] Ramakrishna Corley MD Work Phone: [facility] 12-28-2024 08:46-0400 Body height 170.2 cm Lynnette Tapia ART HISTORIAN.CNM Work Phone: [facility] 12-28-2024 08:46-0400 Body mass index (BMI) [Ratio] 24.9 kg/m2 Lynnette Plotts ART HISTORIAN.CNM Work Phone: [facility] 12-28-2024 08:46-0400 Body weight 72.12 kg Lynnette Tapia ART HISTORIAN.CNM Work Phone: [facility] 12-28-2024 08:46-0400 Diastolic blood pressure 74 mm[Hg] Lynnette Plotts ART HISTORIAN.CNM Work Phone: [facility] 12-28-2024 08:46-0400 Systolic blood pressure 114 mm[Hg] Lynnette Plotts ART HISTORIAN.CNM Work Phone: [facility] 12-22-2024 00:00-0400 Heart rate 81 /min Dr. Aftab Mendoza DO Work Phone: [facility] 12-22-2024 00:00-0400 Respiratory rate 16 /min Dr. Aftab Mendoza DO Work Phone: [facility] 12-22-2024 00:00-0400 SaO2% (BldA) [Mass fraction] 98 % Dr. Aftab Mendoza DO Work Phone: 0(925)[phone] [place] [address] 12-21-2024 23:57-0400 Body temperature 97.4 [degF] Dr. Aftab Mendoza DO Work Phone: 3(689)[phone] [place] [address] 12-21-2024 23:57-0400 Diastolic blood pressure 58 mm[Hg] Dr. Aftab Mendoza DO Work Phone: [facility] 12-21-2024 23:57-0400 Systolic blood pressure 110 mm[Hg] Dr. Aftab Mendoza DO Work Phone: 7(027)602-945155 [place] [address] 12-21-2024 20:27-0400 Body height 170.[address] Aftab Mendoza DO Work Phone: [facility] 12-21-2024 20:27-0400 Body mass index (BMI) [Ratio] 24.4 kg/m2 Dr. Aftab Mendoza DO Work Phone: [facility] 12-21-2024 20:27-0400 Body weight 70.[address] Aftab Mendoza DO Work Phone: [facility] Encounters Encounter Date Encounter Type Care Provider Facility Start: 02-02-2025 End: 02-02-2025 Patient encounter procedure Lester Phillips MD Work Phone: OB/Gynecology Comment on above: Vaginal discharge du ring , antepartum (HCC) (Primary Dx) Start: 02-02-2025 End: 02-02-2025 ambulatory Ramakrishna Corley MD Work Phone: OB/Gynecology Comment on above: Change in discharge/ a lot of Angel zaragoza Start: 01-20-2025 End: 01-20-2025 Patient encounter procedure Karina Blanco MD Work Phone: OB/Gynecology Comment on above: Encounter for superv ision of normal first in second trimester ([facility]) (Primary Dx); Vaginal discharge; 21 weeks gestation of ([facility]); Abdominal pain affecting ([facility]) Start: 01-20-2025 End: 01-20-2025 ambulatory KARINA BLANCO Facility:[facility] Start: 01-19-2025 End: 01-20-2025 ambulatory Ramakrishna Corley MD Work Phone: OB/Gynecology Start: 01-19-2025 End: 01-20-2025 Follow-up encounter Ramakrishna Corley MD Work Phone: OB/Gynecology Comment on above: Follow up from ER Start: 01-18-2025 End: 01-19-2025 Emergency department patient visit NUZHAT ZAMORANO Facility:[facility] Start: 01-18-2025 End: 01-20-2025 Telephone encounter Lynnette Tapia APRN.CNM Work Phone: OB/Gynecology Comment on above: Breast Pump Start: 01-14-2025 End: 01-14-2025 Telephone encounter Ramakrishna Corley MD Work Phone: OB/Gynecology Comment on above: Orders Start: 01-12-2025 End: 01-12-2025 ambulatory RAMAKRISHNA CORLEY Facility:[facility] Start: 01-11-2025 End: 01-11-2025 Patient encounter procedure Ramakrishna Corley MD Work Phone: OB/Gynecology Comment on above: Bacterial vaginosis (Primary Dx); 20 weeks gestation of ([facility]); Burning with urination; Palpitations; Other fatigue; Weakness; Encounter for supervision of normal first in second trimester ([facility]) POTS (postural ortho static tachycardia syndrome) (Primary Dx); Visit for screening ([facility]); 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[facility]); Chronic hypertension affecting ([facility]) Start: 01-11-2025 End: 01-11-2025 [facility] Start: 01-07-2025 End: 01-12-2025 Telephone encounter Ej Rodriguez MD Work Phone: [facility] Comment on above: Appointment Start: 01-06-2025 End: 01-06-2025 Emergency department patient visit ALEXA DICKSON Facility:[facility] Start: 01-06-2025 End: 01-07-2025 Telephone encounter Karina Addison APRN.CNM Work Phone: OB/Gynecology Comment on above: OB Vaginal Pressure Start: 01-05-2025 End: 01-05-2025 Telephone encounter Jayla Keller MD Work Phone: [facility] Comment on above: OB Pain Start: 01-04-2025 End: 01-05-2025 ambulatory NUZHAT ZAMORANO Facility:[facility] Start: 01-04-2025 End: 01-21-2025 Telephone encounter Magda Aragon MD Work Phone: OB/Gynecology Comment on above: Low back aching/cram ping pelvic region Start: 12-30-2024 End: 12-30-2024 [facility]ulatory [facility] Start: 12-28-2024 End: 12-28-2024 Patient encounter procedure Lynnette Tapia ART HISTORIAN.CNM Work Phone: OB/Gynecology Comment on above: Visit for s creening (HCC) (Primary Dx); 18 weeks gestation of (HCC); Encounter for supervision of high risk in second trimester, antepartum (HCC); 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HCC); POTS (postural orthostatic tachycardia syndrome); Cystic fibrosis carrier; Screening for STD (sexually transmitted disease); Abdominal pain during in second trimester (HCC); Bacterial vaginosis Start: 12-28-2024 End: 12-28-2024 ambulatory [facility] Facility[facility] Start: 12-25-2024 End: 12-25-2024 Telephone encounter Lynnette Tapia ART HISTORIAN.CNM Work Phone: OB/Gynecology Comment on above: Received Outside Med ical Records Start: 12-22-2024 End: 12-22-2024 ambulatory MARK FOREMAN Facility:[facility] Start: 12-22-2024 End: 12-22-2024 Telephone encounter Karina Addison MD Work Phone: OB/Gynecology Comment on above: OB Pelvic Pain Start: 12-21-2024 End: 12-22-2024 Emergency department patient visit Dr. Aftab Mendoza DO Work Phone: -Emergency Department Work Phone: Start: 12-01-2024 End: 12-02-2024 Telephone encounter Nurse Actor Understudy [facility] Work Phone: Obstetrics/Gynecology Comment on above: Care Coordination Procedures Date Procedure Procedure Detail Performing Clinician Start: 02-02-2025 Urnls dip stick/tabl et reagent auto microscopy Dr. Aftab Mendoza DO Work Phone: Start: 02-02-2025 Urnls dip stick/tabl et rgnt auto w/o microscopy Lester Phillips MD Work Phone: Start: 01-20-2025 BACTERIAL VAGINOSIS NAAT Karina Blanco MD Work Phone: Start: 01-20-2025 Iadna trichomonas vaginalis amplified probe tech Karina Blanco MD Work Phone: Start: 01-11-2025 Us preg uterus after 1st trimest 05/27 gestation Lynnette Faustinarmida ART HISTORIAN.CNM Work Phone: Start: 01-11-2025 Urnls dip stick/tabl et rgnt auto w/o microscopy Ramakrishna Corley MD Work Phone: Start: 12-21-2024 Urnls dip stick/tabl et reagent auto microscopy Dr. Aftab Mendoza DO Work Phone: Start: 12-21-[address] Aftab Mendoza DO Work Phone: Start: 12-21-[address] Aftab Mendoza DO Work Phone: Plan of Treatment Date Care Activity Detail Author Start: 01-06-2026 GC (Gonorrhea) Scree hernando (18-24) GC (Gonorrhea) Screening (-) [facility] Start: 01-06-2026 Screening for Chlamy eva trachomatis Chlamydia Screening () [facility] Start: 04-05-2025 RSV Vaccine (1 - Ris k 1-dose series) RSV Vaccine (1 - Risk 1-dose series) [facility] Start: 02-08-2025 End: 02-08-2025 Patient encounter procedure 02/08/2025 10:30 AM EDT Routine Office Visit OB/Gynecology [address] [place] [address] Lynnette Tapia APRN.CNM [address] [place] [address] LMP:08/24/24, New 1st OB 12/28/24 OB/Gynecology Comment on above: LMP:08/24/24, New 1st OB 12/28/24 Start: 02-05-2025 End: 02-05-2025 Patient encounter procedure [facility] Comment on above: est care, hx EDS and POTS, EKG non-specific ST-T wave abnormality, currently . MS est care, hx EDS and POTS, EKG non-specific ST-T wave abnormality, currently . MS/ EKG kk Start: 02-02-2025 End: 02-02-2025 [facility] Start: 02-02-2025 Nonstress test [facility] Start: 02-02-2025 Obstetric monitoring [facility] Start: 02-02-2025 Vital signs measurements [facility] Start: 02-02-2025 [facility] Start: 02-02-2025 Bacteria identified in Urine by Culture Urine Culture [facility] Start: 02-02-2025 Patient discharge [facility] Start: 01-28-2025 End: 01-28-2025 Patient encounter procedure 01/28/2025 10:00 AM EDT Routine Office Visit OB/Gynecology [address] [place] [address] Magda Aragon MD [address] [place] [address] LMP:08/24/24, New 1st OB 12/28/24 OB/Gynecology Comment on above: LMP:08/24/24, New 1st OB 12/28/24 Start: 01-25-2025 Influenza vaccination Influenza Vacc ine (#1) [facility] Start: 01-11-2025 End: 01-11-2025 Patient encounter procedure [facility] Comment on above: Anatomy Anatomy/OB Start: 01-11-2025 End: 04-12-2025 TSH W/REFLEX FT4 TSH W/REFLEX FT4 Lab Routine Palpitations Other fatigue Weakness Expected: 01/11/2025, Expires: 04/12/2025 [facility] Comment on above: Expected: 01/11/2025 , Expires: 04/12/2025 Start: 12-28-2024 End: 12-28-2025 OBSTETRIC ULTRASOUND WHI OBSTETRIC ULTRASOUND WHI Anc Imaging Routine Visit for screening (HCC) Expected: 12/28/2024, Expires: 12/28/2025 [facility] Work Phone: Comment on above: Expected: 12/28/2024 , Expires: 12/28/2025 Start: 12-28-2024 End: 12-28-2024 Patient encounter procedure OB/Gynecology Comment on above: LMP:08/24/24 LMP:08/24/24 - record s in chart prep binder Start: 12-21-2024 [facility] Start: 12-21-2024 [facility] Start: 12-21-2024 Bacteria identified in Urine by Culture Urine Culture [facility] Start: 01-26-2024 Covid-19 Vaccine ( season) Covid-19 Vaccine ( season) [facility] Start: 11-25-2023 Hepatitis B Vaccine (1 of 3 - 19+ 3-dose series) Hepatitis B Vaccine (1 of 3 - 19+ 3-dose series) [facility] Start: 11-25-2023 Urine microalbumin profile DTaP,Tdap,Td Vaccine (1 - Tdap) [facility] Start: 2022 Anxiety Screening Anxiety Screening [facility] Start: 2022 Depression Screening Depression Scre ening [facility] Start: 2022 GC (Gonorrhea) Scree hernando (18-24) GC (Gonorrhea) Screening (18-24) [facility] Start: 2022 Hepatitis C screening Hepatitis C Sc reening [facility] Start: 2022 HIV screening HIV Screening [facility] Start: 2022 Screening for Chlamy eva trachomatis Chlamydia Screening (18) [facility] Start: 2020 Meningococcal B Vacc ine (1 of 2 - Standard) Meningococcal B Vaccine (1 of 2 - Standard) [facility] Start: 11-25-2019 HPV Vaccine (1 - 3-d ose series) HPV Vaccine (1 - 3-dose series) [facility] Start: 2018 Peds To Adult Transi tion Annual Assessment Peds To Adult Transition Annual Assessment [facility] Start: 2016 Peds To Adult Transi tion Initial Discussion Peds To Adult Transition Initial Discussion [facility] Bacteria identified in Urine by Culture BACTERIAL CULTURE, URINE Microbiology Routine Burning with urination Ordered: 01/11/2025 [facility] Comment on above: Ordered: 01/11/2025 BACTERIAL VAGINOSIS NAAT BACTERI AL VAGINOSIS NAAT Lab Routine Visit for screening ([facility]) 12/28/2024 11:27 AM EDT [facility] BACTERIAL VAGINOSIS NAAT BACTERI AL VAGINOSIS NAAT Lab Routine Bacterial vaginosis Ordered: 01/11/2025 [facility] Work Phone: Comment on above: Ordered: 01/11/2025 PARVEEN/TRICHOMONAS NAAT PARVEEN /TRICHOMONAS NAAT Lab Routine Visit for screening ([facility]) 12/28/2024 11:27 AM EDT [facility] PARVEEN/TRICHOMONAS NAAT PARVEEN /TRICHOMONAS NAAT Lab Routine Bacterial vaginosis Ordered: 01/11/2025 [facility] Comment on above: Ordered: 01/11/2025 Patient Education [facility] ED False Labor OB Triage: Return to Hospital or Notify Physician if you Experience: [facility] Work Phone: Urine culture [facility] Urine culture [facility] Payers Date Payer Category Payer Self-pay 2023 [employer] Blue [facility] BLUE CARD PPO OOS [id number] 2023 Unknown [id number] Unknown [id number] Social History Date Type Detail [facility] Start: 2004 Sex assigned at Not on file [facility] Start: 12-28-2024 End: 01-11-2025 Gender identity Not on file [facility] Start: 12-21-2024 End: 12-28-2024 Tobacco smoking status MDIS Never smoked tobacco (finding) [facility] Start: 2005 Sex Assigned At Female [facility] Start: 09-07-2024 [facility] Start: 12-28-2024 Tobacco use and exposure Smokeless tobacco non-user [facility] Start: 12-28-2024 End: 01-11-2025 History of Social function [facility] Start: 11-30-2024 Adult Depression Screening Assessment 0 [facility] Goals Date Patient Goal Desired Activity /State Personal health goal Functional Status Date Assessment Result Facility 01-19-2025 Are you deaf, or do you have serious difficulty hearing No 01/19/2025 3:40 AM Armida Owens RN No [facility] 01-19-2025 Are you blind, or do you have serious difficulty seeing, even when wearing glasses No 01/19/2025 3:40 AM Armida Owens RN No [facility] 01-19-2025 Do you have serious difficulty walking or climbing stairs No 01/19/2025 3:40 AM Armida Owens RN No [facility] 01-19-2025 Do you have difficul ty dressing or bathing No 01/19/2025 3:40 AM Armida Owens RN No [facility] 01-19-2025 Because of a physica l, mental, or emotional condition, do you have difficulty doing errands alone such as visiting a physician's office or shopping No 01/19/2025 3:40 AM Armida Owens RN No [facility] 01-06-2025 Are you deaf, or do you have serious difficulty hearing No 01/06/2025 10:25 PM Benita Yeager RN No [facility] 01-06-2025 Are you blind, or do you have serious difficulty seeing, even when wearing glasses No 01/06/2025 10:25 PM Benita Yeager RN No [facility] 01-06-2025 Do you have serious difficulty walking or climbing stairs No 01/06/2025 10:25 PM Benita Yeager RN No [facility] 01-06-2025 Do you have difficul ty dressing or bathing No 01/06/2025 10:25 PM Benita Yeager RN No [facility] 01-06-2025 Because of a physica l, mental, or emotional condition, do you have difficulty doing errands alone such as visiting a physician's office or shopping No 01/06/2025 10:25 PM Benita Yeager RN No [facility] 01-05-2025 Are you deaf, or do you have serious difficulty hearing No 01/05/2025 2:21 AM Ayanna Price RN No [facility] 01-05-2025 Are you blind, or do you have serious difficulty seeing, even when wearing glasses No 01/05/2025 2:21 AM MEGT Ayanna Alatorre, LEVON No [facility] 01-05-2025 Do you have serious difficulty walking or climbing stairs No 01/05/2025 2:21 AM MEGT Ayanna Alatorre, LEVON No [facility] 01-05-2025 Do you have difficul ty dressing or bathing No 01/05/2025 2:21 AM EDT Ayanna Alatorre, LEVON No [facility] 01-05-2025 Because of a physica l, mental, or emotional condition, do you have difficulty doing errands alone such as visiting a physician's office or shopping No 01/05/2025 2:21 AM MEGT Ayanna Alatorre RN No [facility] 12-22-2024 Are you deaf, or do you have serious difficulty hearing No 12/22/2024 9:46 PM Armida Rodriguez RN No [facility] 12-22-2024 Are you blind, or do you have serious difficulty seeing, even when wearing glasses No 12/22/2024 9:46 PM Armida Rodriguez RN No [facility] 12-22-2024 Do you have serious difficulty walking or climbing stairs No 12/22/2024 9:46 PM Armida Rodriguez RN No [facility] 12-22-2024 Do you have difficul ty dressing or bathing No 12/22/2024 9:46 PM Armida Rodriguez RN No [facility] 12-22-2024 Because of a physica l, mental, or emotional condition, do you have difficulty doing errands alone such as visiting a physician's office or shopping No 12/22/2024 9:46 PM Armida Rodriguez RN No [facility] Mental Status Date Assessment Result Facility 01-19-2025 Because of a physica l, mental, or emotional condition, do you have serious difficulty concentrating, remembering, or making decisions No 01/19/2025 3:40 AM Armida Owens RN No [facility] 01-06-2025 Because of a physica l, mental, or emotional condition, do you have serious difficulty concentrating, remembering, or making decisions No 01/06/2025 10:25 PM EDT Benita Bradley, LEVON No [facility] 01-05-2025 Because of a physica l, mental, or emotional condition, do you have serious difficulty concentrating, remembering, or making decisions No 01/05/2025 2:21 AM EDT Ayanna Alatorre, LEVON No [facility] 12-22-2024 Because of a physica l, mental, or emotional condition, do you have serious difficulty concentrating, remembering, or making decisions No 12/22/2024 9:46 PM EDT Armida Pennington, LEVON No [facility] Clinical Notes 12-01-2024 to 02-02-2025 Note Date & Type Note Facility 02-02-2025 History and physi brennan note [facility] 02-02-2025 Evaluation note Diagnosis Onset Date Resolution 23 weeks gestation of acute February 02, 2 025 8:50pm Angel Zaragoza' contraction acute February 02, 025 8:50pm [facility] Work Phone: 1(271) 985-466209-09-2025 Miscellaneous Notes* Quick Notes - Lester Phillips MD - 02/02/2025 2:25 PM EDT KJ - S: Pal denies contractions or vaginal bleeding. Patient reports increased discharge with possible LOF. Also would like checked for a UTI,. O: 23w1d, see flow sheet SENSITIVE EXAM: The sensitive examination was discussed with the Patient or Patient's Authorized Dish Technician. As applicable, any other physician, advance practice provider, medical student, or other health professional student that will be observing or involved in the sensitive examination for educational or training purposes was discussed with the Patient or Authorized Dish Technician. The Patient or Authorized Dish Technician has agreed to proceed with the sensitive examination. (Sensitive examination includes inspection and/or palpation of the breasts, pelvis, prostate and anorectal regions). SSE: normal vagina, cervix closed negative pool/fern/nitrazine A/P: Assessment & Plan Vaginal discharge during , antepartum (HCC) Orders: UA DIP, URINE (POC) Patient reassured on normal vaginal discharge. Follow up as scheduled. Lester Phillips MD [facility] Progress note* Quick Notes - Lester Phillips MD - 02/02/2025 2:25 PM EDT KJ - S: Pal denies contractions or vaginal bleeding. Patient reports increased discharge with possible LOF. Also would like checked for a UTI,. O: 23w1d, see flow sheet SENSITIVE EXAM: The sensitive examination was discussed with the Patient or Patient's Authorized Dish Technician. As applicable, any other physician, advance practice provider, medical student, or other health professional student that will be observing or involved in the sensitive examination for educational or training purposes was discussed with the Patient or Authorized Dish Technician. The Patient or Authorized Dish Technician has agreed to proceed with the sensitive examination. (Sensitive examination includes inspection and/or palpation of the breasts, pelvis, prostate and anorectal regions). SSE: normal vagina, cervix closed negative pool/fern/nitrazine A/P: Assessment & Plan Vaginal discharge during , antepartum (HCC) Orders: UA DIP, URINE (POC) Patient reassured on normal vaginal discharge. Follow up as scheduled. Lester Phillips MD [facility]09-09-2025 Telephone encounter Note* Telephone Encounter - Magda Hagen RN - 02/02/2025 11:11 AM EDT Patient called in to the office. Appointment given today. Magda Hagen RN [facility]09-09-2025 Miscellaneous Notes* Telephone Encounter - Magda Hagen RN - 02/02/2025 11:11 AM EDT Patient called in to the office. Appointment given today. Magda Hagen RN [facility] Telephone encounter Note * Telephone Encounter - Jocelyne Black RN - 01/20/2025 11:33 AM EDT Order signed and faxed. Jocelyne Black RN [facility]08-27-2025 Miscellaneous Notes* Telephone Encounter - Jocelyne Black RN - 01/20/2025 11:33 AM EDT Order signed and faxed. Jocelyne Black RN * Telephone Encounter - Isaura Pereira RN - 01/18/2025 8:45 AM EDT Breast pump order received from [place]. To CP to sign. Isaura Pereira RN documented in this encounterGen[facility]08-27-2025 NoteHNO ID: [id number] Author: KARINA SALDAÑA MD Service: ? Author Type: Physician Type: Progress Notes Filed: 01/20/2025 10:41 Note Text: DM-pt reports was seen in ER for pelvic pain. Here for follow up. Reports has thick green/white dischargel. Denies vaginal Bleeding, Leaking fluid, or regular Contractions. Pt reports good movement. Denies changes in soaps/detergents. No new sexual partner. Physical Exam: Gen: female in no apparent distress Abd: soft, Gravid. Mild tenderness to palpation. No rebound, no guarding. See flow sheet VE: small amount thick white/yellow discharge. Participation of a fellow, resident, medical student, or advanced practice provider student in performing the sensitive examination was discussed with the patient or authorized sales representative livestock. The patient or authorized sales representative livestock has agreed to proceed with the sensitive examination. @ 21.2 weeks Assessment AND Plan Encounter for supervision of normal first in second trimester (HCC) Vaginal discharge Vaginal cultures today 21 weeks gestation of (HCC) RTO as scheduled Abdominal pain affecting (HCC) Went to ER had CT scan - no acute findings. Causes of pain reviewed with patient. - abdominal binder -urine culture pending from Er - ER results reviewed Medical Decision Making: Problems: Moderate: New problem with uncertain prognosis Data: Unique test(s) ordered: 3+ Medical Decision Making Level: 4 - Moderate Karina Omer [facility]08-27-2025 History of Present illness Narrative* Karina Saldaña MD - 01/20/2025 10:40 AM EDT DM-pt reports was seen in ER for pelvic pain. Here for follow up. Reports has thick green/white dischargel. Denies vaginal Bleeding, Leaking fluid, or regular Contractions. Pt reports good movement. Denies changes in soaps/detergents. No new sexual partner. Physical Exam: Gen: female in no apparent distress Abd: soft, Gravid. Mild tenderness to palpation. No rebound, no guarding. See flow sheet VE: small amount thick white/yellow discharge. Participation of a fellow, resident, medical student, or advanced practice provider student in performing the sensitive examination was discussed with the patient or authorized sales representative livestock. The patient or authorized sales representative livestock has agreed to proceed with the sensitive examination. @ 21.2 weeks Assessment & Plan Encounter for supervision of normal first in second trimester (HCC) Vaginal discharge Vaginal cultures today 21 weeks gestation of ([facility]) RTO as scheduled Abdominal pain affecting (HCC) Went to ER had CT scan - no acute findings. Causes of pain reviewed with patient. - abdominal binder -urine culture pending from Er - ER results reviewed Medical Decision Making: Problems: Moderate: New problem with uncertain prognosis Data: Unique test(s) ordered: 3+ Medical Decision Making Level: 4 - Moderate Karina Omer MD documented in this encounterGen[facility]08-27-2025 Progress note* Quick Notes - Karina Saldaña MD - 01/20/2025 10:07 AM EDT DM-pt reports was seen in ER for pelvic pain. Here for follow up. Reports has thick green/white dischargel. Denies vaginal Bleeding, Leaking fluid, or regular Contractions. Pt reports good movement. Denies changes in soaps/detergents. No new sexual partner. Physical Exam: Gen: female in no apparent distress Abd: soft, Gravid. Mild tenderness to palpation. No rebound, no guarding. See flow sheet VE: small amount thick white/yellow discharge. Participation of a fellow, resident, medical student, or advanced practice provider student in performing the sensitive examination was discussed with the patient or authorized sales representative livestock. The patient or authorized sales representative livestock has agreed to proceed with the sensitive examination. @ 21.2 weeks Assessment & Plan Encounter for supervision of normal first in second trimester (HCC) Vaginal discharge Vaginal cultures today 21 weeks gestation of (HCC) RTO as scheduled Abdominal pain affecting (HCC) Went to ER had CT scan - no acute findings. Causes of pain reviewed with patient. - abdominal damien Omer MD [facility]08-27-2025 Miscellaneous Notes* Quick Notes - Karina Saldaña MD - 01/20/2025 10:07 AM EDT DM-pt reports was seen in ER for pelvic pain. Here for follow up. Reports has thick green/white dischargel. Denies vaginal Bleeding, Leaking fluid, or regular Contractions. Pt reports good movement. Denies changes in soaps/detergents. No new sexual partner. Physical Exam: Gen: female in no apparent distress Abd: soft, Gravid. Mild tenderness to palpation. No rebound, no guarding. See flow sheet VE: small amount thick white/yellow discharge. Participation of a fellow, resident, medical student, or advanced practice provider student in performing the sensitive examination was discussed with the patient or authorized sales representative livestock. The patient or authorized sales representative livestock has agreed to proceed with the sensitive examination. @ 21.2 weeks Assessment & Plan Encounter for supervision of normal first in second trimester (HCC) Vaginal discharge Vaginal cultures today 21 weeks gestation of (HCC) RTO as scheduled Abdominal pain affecting (HCC) Went to ER had CT scan - no acute findings. Causes of pain reviewed with patient. - abdominal damien Omer MD documented in this encounterGenesis Hospital08-27-2025 Instructions* Patient Instructions* Ana Cristina Fitch MA - 01/20/2025 9:54 AM EDT SEQUENTIAL SCREENINGS [facility] offers sequential screenings for women who are interested in screenings for chromosomal abnormalities and certain defects during a . The sequential screen combinesultrasound and blood tests to determine the risk of chromosomal abnormalities, including Down's Syndrome (Trisomy 21) and Trisomy 18, as well as open neural tube defects including spina bifida. Ultrasound examination is performed between 11 weeks and 13 weeks gestational age. Blood tests are drawn after the ultrasound and again later in the between 15 and 21 weeks gestational age. Please let your physician know if you are interested in this testing. It will require an appointment withour medical record technician. This is not an ultrasound performed by a physician in our office during a routine visit. SIGNS AND SYMPTOMS OF LABOR 1. Contractions every 10 minutes or more often 2. Clear, pink, or brownish fluid (water) leaking from vagina 3. Feeling that baby is pushing down, pressure 4. Low, dull backache 5. Cramps that feel like a period 6. Cramps with or without diarrhea If you notice any of the above symptoms, contact our office at [phone] and ask to speak with anurse. After hours, you can call doctors registry at [phone] OR call [facility] at [phone] ask to have the doctor manager integration paged. If you consider this an emergency, dial 9-4- or go to your nearest emergency department. NEED HELP? Are you dealing with a violent or abusive relationship? Are you a victim of rape or sexual assult? Call [facility] ([facility] 24 hour Crisis Hotline: 878.121.6857 or 232-293-3714. MANUAL Your Guide to a Healthy manual is now on-line. Visit [email or web address] to download your free copy documented in this encounterGenesis Hospital08-26-2025 NoteHNO ID: [id number] Author: ARMIDA PENNINGTON RN Service: Nursing Author Type: Registered Nurse Type: Nursing Progress Note Filed: 01/19/2025 00:45 Note Text: Patient returned to ANGELA 5 at this time. No distress noted.[facility]08-26-2025 NoteHNO ID: [id number] Author: ARMIDA PENNINGTON RN Service: Nursing Author Type: Registered Nurse Type: Nursing Progress Note Filed: 01/19/2025 00:45 Note Text: Patient taken to CT at this time via wheelchair. RN accompanied patient. No distress noted.[facility]08-25-2025 NoteHNO ID: [id number] Author: CHAD LOYOLA DO Service: Obstetrics Author Type: Resident Type: Plan of Care Filed: 01/18/2025 23:40 Note Text: Radio Discussion: The indications for the exam have been discussed with the ordering provider. The ordering provider and patient are aware of radiation risks related to the study, including to the fetus. The patient has discussed the potential risks with a radiation safety expert. A dose estimate and risk assessment will be placed in the EMR following the study by the medical physics group. Chad Loyola DO, MPH PAINT DEPARTMENT SUPERVISOR PGY-2AB[facility]08-[facility]25 NoteHNO ID: [id number] Author: CHAD LOYOLA DO Service: Obstetrics Author Type: Resident Type: Progress Notes Filed: 01/19/2025 03:32 Note Text: OBSTETRICS OB ED PROGRESS NOTE SERVICE DATE: January 18, 2025 SERVICE TIME: 9:34 PM Subjective Patient's stated reason for arrival: sharp pain. pain whe touching tummy CHIEF COMPLAINT: Abdominal pain HISTORY OF THE PRESENT ILLNESS: The patient is a 19 year old female, , who is at 21w0d with an AMARI of 05/31/2025, by Last Menstrual Period dating method. Patient is here presenting with abdominal pain that began yesterday morning upon awakening. Pain is described as sharp, 8/10, located on epigastric area. She denies any relieving or alleviating factors. Patient denies any previous similar pain and attempted Tylenol 500 mg and heating pad with no relief. She states good oral intake, and regular bowel movements. Patient denies any fever, chills, nausea, vomit, headache, or sick contacts. Decreased movement. Denies vaginal bleeding., Denies contractions., Denies leaking of fluid. . 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 No family history on file. OB History Gravida1 Para0 Term0 Preterm0 AB0 Living0 SAB0 IAB0 Ectopic0 Multiple0 Live Births0 REVIEW OF SYSTEMS: See HPI. Objective LAST VITALS: Pulse: 87 BP: 123/81 Resp: 17 Temp: 36.6 ?C (97.9 ?F) SpO2: 99 % Height: 170.2 cm (5' 7) Weight: 72.6 kg (160 lb) BMI: 25.06 SENSITIVE EXAMINATION CONSENT: Participation of a fellow, resident, medical student, or advanced practice provider student in performing the sensitive examination was discussed with the patient or authorized sales representative livestock. The patient or authorized sales representative livestock has agreed to proceed with the sensitive examination. PHYSICAL EXAM: General: WD, WN, anxious, tearful HEENT: dry mucous membranes Heart: RR, S1, S2, no jessie, rub, or murmur appreciated Lungs: normal pulmonary exam and clear to auscultation Back: negative CVA tenderness, non-tender to palpation Abdomen: soft, 5/5 tenderness to palpation in bilateral lower quadrants, non-tender to palpation in bilateral upper quadrants. Positive guarding, no rebound tenderness. Extremities: no edema, non-tender to palpation, CERVICAL EXAM: Dilation: Closed (01/18/25 2200 : Chad Loyola, ) MONITORING/ASSESSMENT: 145bpm via doppler, heart rate present and appropriate LABS Diagnostic tests reviewed for today's visit: Most recent labs and imaging results. 19 year old EGA:21w0d presenting with abdominal pain in Assessment AND Plan Abdominal pain affecting ([facility]) - vital signs stable - bilateral lower abdominal pain - differential: appendicitis, round ligament pain, labor, UTI, kidney stone, vs pyelonephritis - SVE: closed - labs: CBC and CMP unremarkable - Urine Dip: unremarkable in ANGELA - Patient finishing antibiotic course after previous diagnosis of UTI, plan for urine culture - CT abdomen: non-obstructing kidney stone and evidence of cystitis, no evidence of appendicitis - Provided with Flexeril 10mg and Tylenol 1000mg - Patient was reassured with CT results and pain decreased to 2/10 at this time - Provided with return precautions - Plan of Care discussed with Dr. Zamorano (PPG) Chronic hypertension affecting (HCC) - normotensive on presentation - asymptomatic - no current medications 21 weeks gestation of (HCC) - no obstetrical concerns - no vaginal bleeding or leaking of fluid - 145bpm via doppler Contributions to note made by medical student: Padilla Florentino. I have personally seen and examined the patient and performed all medical decision-making components. I have reviewed the medical student documentation and verified the interval HPI in the note as written with addition of any additions or changes. Physical exam, assessment, and plan were performed and written by me. Plan of care discussed with: Provider, RN, Patient, Dr. Rodriguez, and Dr. Zamorano. SIGNATURE: Chad Loyola DO PATIENT NAME: Pal Nicholas DATE: January 18, 2025 TIME: 9:34 PM PAGER/CONTACT #: [id number]08-[facility]25 Telephone encounter Note* Telephone Encounter - Isaura Pereira RN - 01/18/2025 8:45 AM EDT Breast pump order received from [place]. To CP to sign. Isaura Pereira RN [facility]08-21-[facility] Telephone encounter Note* Telephone Encounter - Ramakrishna Corley MD - 01/14/2025 1:34 PM EDT See result note [facility]08-21-2025 Miscellaneous Notes* Telephone Encounter - Ramakrishna Corley MD - 01/14/2025 1:34 PM EDT See result note documented in this encounterGenesis Hospital08-18-2025 Note* Addendum Note - Ramakrishna Corley MD - 01/11/2025 3:49 PM EDTAddended by: RAMAKRISHNA CORLEY on: 01/11/2025 03:49 PM Modules accepted: Orders [facility]08-18-2025 Miscellaneous Notes* Addendum Note - Ramakrishna Corley MD - 01/11/2025 3:49 PM EDTAddended by: RAMAKRISHNA CORLEY on: 01/11/2025 03:49 PM Modules accepted: Orders * Addendum Note - Priti Sharma MA - 01/11/2025 3:24 PM EDTAddended by: PRITI SHARMA on: 01/11/2025 03:24 PM Modules accepted: Orders * Quick Notes - Ramakrishna Corley MD - 01/11/2025 3:12 PM EDT SW- Lower pelvic cramping and dysuria with a BV infection several weeks ago, treated after she wentto [facility] triage. Now has dysuria. No vb, lof, vaginal discharge, vaginal symptoms. +FM. Reports elevated BP when in the ER. Has palpitations, weakness and fatigue when standing PE: Gen- NAD, well appearing Abd- Gravid See flowsheet A/p 20 wk gestation - recommend cardiology for symptoms - discussed normal expectations and reasons to call - anatomy US today - recommend home BP monitoring. BP 132/87 highest, but majority under 120/80 - check TSH given symptoms - check BV, yeast, urine cx - Rto 4 wks Ramakrishna Corley DO documented in this encounterGenesis Hospital08-18-2025 Note* Addendum Note - Priti Sharma MA - 01/11/2025 3:24 PM EDTAddended by: PRITI SHARMA on: 01/11/2025 03:24 PM Modules accepted: Orders [facility]08-18-2025 Progress note* Quick Notes - Ramakrishna Corley MD - 01/11/2025 3:12 PM EDT SW- Lower pelvic cramping and dysuria with a BV infection several weeks ago, treated after she wentto [facility] triage. Now has dysuria. No vb, lof, vaginal discharge, vaginal symptoms. +FM. Reports elevated BP when in the ER. Has palpitations, weakness and fatigue when standing PE: Gen- NAD, well appearing Abd- Gravid See flowsheet A/p 20 wk gestation - recommend cardiology for symptoms - discussed normal expectations and reasons to call - anatomy US today - recommend home BP monitoring. BP 132/87 highest, but majority under 120/80 - check TSH given symptoms - check BV, yeast, urine cx - Rto 4 wks Ramakrishna Corley DO [facility]08-18-2025 Instructions* Patient Instructions* Priti Sharma MA - 01/11/2025 2:59 PM EDT SEQUENTIAL SCREENINGS [facility] offers sequential screenings for women who are interested in screenings for chromosomal abnormalities and certain defects during a . The sequential screen combinesultrasound and blood tests to determine the risk of chromosomal abnormalities, including Down's Syndrome (Trisomy 21) and Trisomy 18, as well as open neural tube defects including spina bifida. Ultrasound examination is performed between 11 weeks and 13 weeks gestational age. Blood tests are drawn after the ultrasound and again later in the between 15 and 21 weeks gestational age. Please let your physician know if you are interested in this testing. It will require an appointment withour medical record technician. This is not an ultrasound performed by a physician in our office during a routine visit. SIGNS AND SYMPTOMS OF LABOR 1. Contractions every 10 minutes or more often 2. Clear, pink, or brownish fluid (water) leaking from vagina 3. Feeling that baby is pushing down, pressure 4. Low, dull backache 5. Cramps that feel like a period 6. Cramps with or without diarrhea If you notice any of the above symptoms, contact our office at [phone] and ask to speak with anurse. After hours, you can call doctors registry at [phone] OR call [facility] at [phone] ask to have the doctor manager integration paged. If you consider this an emergency, dial 9-4 or go to your nearest emergency department. NEED HELP? Are you dealing with a violent or abusive relationship? Are you a victim of rape or sexual assult? Call [facility] ([place]) 24 hour Crisis Hotline: 685.726.1194 or 426-530-0027. MANUAL Your Guide to a Healthy manual is now on-line. Visit [email or web address] to download your free copy documented in this encounterGenesis Hospital08-15-2025 Telephone encounter Note * Telephone Encounter - Kari Abebe - 01/08/2025 2:39 PM EDT Scheduled 02/05/[address] Burns. Kari Abebe [facility]08-15-2025 Miscellaneous Notes* Telephone Encounter - Kari Abebe - 01/08/2025 2:39 PM EDT Scheduled 02/05/[address] Burns. Kari Abebe * Telephone Encounter - Ej Rodriguez MD - 01/07/2025 12:40 PM EDT Patient was seen by resident but not by 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 She needs a new patient general cardiology appointment in the next 1 to 4 weeks. Please try to arrange this. If there are no spots or anyone let me know thanks Ej Rodriguez MD documented in this encounterGenesis Hospital08-14-2025 Telephone encounter Note * Telephone Encounter - Ej Rodriguez MD - 01/07/2025 12:40 PM EDT Patient was seen by resident but not by 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 She needs a new patient general cardiology appointment in the next 1 to 4 weeks. Please try to arrange this. If there are no spots or anyone let me know thanks Ej Rodriguez MD [facility] Work Phone: [phone]) 376-327408-14-2025 Telephone encounter Note* Telephone Encounter - Jocelyne Black RN - 01/07/2025 10:35 AM EDT Patient was seen at [facility] last night. She has OB and MFM appointment on Saturday. Jocelyne Black RN [facility]08-14-2025 Miscellaneous Notes* Telephone Encounter - Jocelyne Black RN - 01/07/2025 10:35 AM EDT Patient was seen at [facility] last night. She has OB and MFM appointment on Saturday. Jocelyne Black RN * Telephone Encounter - Karina Addison MD - 01/07/2025 10:00 AM EDT If not improved work in any cancellations, go to L&D for eval or schedule tomorrow if openings.Karina Addison MD * Telephone Encounter - Magda Hagen RN - 01/06/2025 4:49 PM EDT 19w2d Patient called to report that she is having an increase in vaginal pressure and a change in her vaginal discharge. It is chunkier, but not consistent with a yeast infection. Discharge is yellow/greenwith an occasional tinge of pink. No itching or irritation. See 01/04 and 01/05 telephone notes. Patient was seen at [facility] ED triage on 01/04. The diarrhea has resolved. Advised that she go back to [facility] as the office is closing. Patient asked for an appointment tomorrow instead because of transportation. No available appointments. Advised that she should be evaluated today in case she is having labor. Voiced understanding and believes she could have a friend take her. CAROLINA Hagen RN documented in this encounterGenesis Hospital08-14-2025 Telephone encounter Note * Telephone Encounter - Karina Addison MD - 01/07/2025 10:00 AM EDT If not improved work in any cancellations, go to L&D for eval or schedule tomorrow if openings.Karina Addison MD [facility] Work Phone: [phone] 207-951708-13-2025 NoteHNO ID: [id number] Author: ALEXA DICKSON MD Service: Obstetrics Author Type: Resident Type: Progress Notes Filed: 01/06/2025 23:32 Note Text: Attestation signed by Alexa Dickson MD at 01/06/2025 11:32 PM Attending Note I personally saw and examined the patient. I reviewed the resident's note. I agree with the resident's assessment and plan unless otherwise noted. Evaluated by CVICU resident and attending - very low concern for ACS given normal troponin. Outpatient follow up was arranged. Vaginal pressure - cervix closed per resident exam, no contractions on tocometer. Low suspicion for cervical insufficiency. Has not yet had anatomy scan - scheduled on Saturday. Return precautions discussed. Signature: Alexa Dickson MD Date: 01/06/2025 Time: 11:30 PM OBSTETRICS OB ED PROGRESS NOTE SERVICE DATE: January 06, 2025 SERVICE TIME: 1944 Subjective Patient's stated reason for arrival: vaginal pressure CHIEF COMPLAINT: Vaginal pressure, vaginal discharge, chest pain, lightheadedness HISTORY OF THE PRESENT ILLNESS: The patient is a 19 year old female, who is at 19w2d with an AMARI of 05/31/2025, by Last Menstrual Period dating method. has been confirmed by ultrasound. Patient presents with vaginal pressure, vaginal discharge, chest pain, lightheadedness. Patient reports that vaginal pressure began 01/04 and reports has progressively worsened since then. Reports that she has some dull radiation of her pain to her back. States that pressure feels constant. Denies abdominal pain, nausea/vomiting, vaginal bleeding, leaking of fluid. Patient reports vaginal discharge with passage of a single clump of discharge which patient describes as yellow/green with some blood. Patient also endorses intermittent chest pain for the past few days. States that she sometimes feels that it radiates to her back and sometimes feels sharp. Patient denies shortness of breath, leg pain or swelling, hemoptysis. Patient was seen two days ago in OB ED for diarrhea. EKG at that time was showed no concerning findings. Patient notes that the pain feels similar to pain she experienced at 7 weeks gestational age, at which time work up was negative for cardiac abnormalities, but showed hypokalemia. Patient reports that she was given potassium supplementation and pain resolved. Patient reports resolution of diarrhea since last OB ED visit. Patient also reports fatigue with one episode of syncope in which she recalls losing vision and blacking out when she went from supine to sitting up. Patient denies any trauma associated with this incident. Patient also notes that she has had weakness with movement including needing assistance to get to the toilet without falling. Patient reports that this tiredness feels similar to her typical POTS symptoms, but worse than usual. 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 No family history on file. OB History Gravida1 Para0 Term0 Preterm0 AB0 Living0 SAB0 IAB0 Ectopic0 Multiple0 Live Births0 REVIEW OF SYSTEMS: GENERAL: Negative for weight loss, chills, or fevers RESPIRATORY: Negative for cough, hemoptysis, dyspnea, or shortness of breath CARDIOVASCULAR: Positive for chest pain with radiation to the back, positive for palpitations, positive for syncope. ABD: Negative for abdominal pain GI: Negative for nausea, vomiting, or diarrhea, constipation : Negative for dysuria or urinary frequency, urinary urgency DIRECTOR MEDICAID: Negative for abnormal vaginal bleeding, negative fluid leakage, positive for vaginal discharge Objective LAST VITALS: BP: 148/101 (standing) Resp: 18 Temp: 37.2 ?C (99 ?F) SpO2: 99 % Height: 170.2 cm (5' 7) Weight: 71.7 kg (158 lb) BMI: 24.75 Patient Vitals for the past 24 hrs: BP 01/06/251951 148/101 01/06/251950 140/92 01/06/25 1950 132/73 01/06/25 1829 137/85 SENSITIVE EXAMINATION CONSENT: Participation of a fellow, resident, medical student, or advanced practice provider student in performing the sensitive examination was discussed with the patient or authorized sales representative livestock. The patient or authorized sales representative livestock has agreed to proceed with the sensitive examination. PHYSICAL EXAM: General appearance: Well appearing, alert, in no acute distress, well-hydrated, well nourished. Skin: Skin color, texture, turgor normal, no suspicious rashes or lesions Head: Normocephalic, no masses, lesions, tenderness or abnormalities Eyes: Anicteric sclera. Pupils are equally round and reactive to light. Extraocular movements are intact. Oropharynx: Lips, mucosa, and tongue normal, teeth and gums normal, oropharynx (more content not included)...[facility]08-13-2025 Telephone encounter Note* Telephone Encounter - Magda Hagen RN - 01/06/2025 4:49 PM EDT 19w2d Patient called to report that she is having an increase in vaginal pressure and a change in her vaginal discharge. It is chunkier, but not consistent with a yeast infection. Discharge is yellow/greenwith an occasional tinge of pink. No itching or irritation. See 01/04 and 01/05 telephone notes. Patient was seen at [facility] ED triage on 01/04. The diarrhea has resolved. Advised that she go back to [facility] as the office is closing. Patient asked for an appointment tomorrow instead because of transportation. No available appointments. Advised that she should be evaluated today in case she is having labor. Voiced understanding and believes she could have a friend take her. CAROLINA Hagen RN [facility]08-12-2025 Telephone encounter Note* Telephone Encounter - Jocelyne Black RN - 01/05/2025 12:19 PM EDT Patient notified and voiced understanding. Jocelyne Black RN [facility]08-12-2025 Miscellaneous Notes* Telephone Encounter - Jocelyne Black RN - 01/05/2025 12:19 PM EDT Patient notified and voiced understanding. Jocelyne Black RN * Telephone Encounter - Lester Phillips MD - 01/05/2025 12:07 PM EDT Patient was seen by Mitesh Kulkarni while at [facility]. I recommend supportive care with hydration, potassiumrich foods such as bananas and rest. Agree that after a GI illness it can take several days to feelbetter. Please keep current appointment on Saturday. Lester Phillips MD * Telephone Encounter - Magda Hagen RN - 01/05/2025 11:34 AM EDT 19w1d See 01/04 phone note. Patient went to [facility] OB ED last night. [facility] notes available to review. Patient was prescribed Potassium. She is calling because she has concerns for her lab results. Asking if our providers can review. She is not feeling better today. Having cramping pain still today. Pain rate of 8/10. Took Tylenol at 10:00 am without relief. Overall, she generally feels weak. Denies JAQUEZ today. No diarrhea or any BM yet this morning. She had peanut butter toast and a Liquid IV so far today. Recommended patient try and eat something more, preferably with some protein. States she has no appetite. Denies nausea. Advised if she had a recent GI illness, she needs food to get her strength back. Patient tearful on the phone. Would like to be seen for reassurance in our office today. States she didn't feel completely confident in the diagnosis from [facility]. Please advise. Magda Hagen RN documented in this encounterGenesis Hospital08-12-2025 Telephone encounter Note * Telephone Encounter - Lester Phillips MD - 01/05/2025 12:07 PM EDT Patient was seen by Mitesh Kulkarni while at [facility]. I recommend supportive care with hydration, potassiumrich foods such as bananas and rest. Agree that after a GI illness it can take several days to feelbetter. Please keep current appointment on Saturday. Lester Phillips MD [facility] Work Phone: 1(892) 390-654508-12-2025 Telephone encounter Note* Telephone Encounter - Magda Hagen RN - 01/05/2025 11:34 AM EDT 19w1d See 01/04 phone note. Patient went to [facility] OB ED last night. [facility] notes available to review. Patient was prescribed Potassium. She is calling because she has concerns for her lab results. Asking if our providers can review. She is not feeling better today. Having cramping pain still today. Pain rate of 8/10. Took Tylenol at 10:00 am without relief. Overall, she generally feels weak. Denies JAQUEZ today. No diarrhea or any BM yet this morning. She had peanut butter toast and a Liquid IV so far today. Recommended patient try and eat something more, preferably with some protein. States she has no appetite. Denies nausea. Advised if she had a recent GI illness, she needs food to get her strength back. Patient tearful on the phone. Would like to be seen for reassurance in our office today. States she didn't feel completely confident in the diagnosis from [place]. Please advise. Magda Hagen RN [facility]08-12-2025 Telephone encounter Note* Telephone Encounter - Jayla Keller MD - 01/05/2025 11:17 AM EDT Images from the original note were not included. Patient called requesting Rx for potassium and imodium after being seen in the OB ED 1 day ago. Jayla Keller MD [facility]08-12-2025 Miscellaneous Notes* Telephone Encounter - Jayla Keller MD - 01/05/2025 11:17 AM EDT Images from the original note were not included. Patient called requesting Rx for potassium and imodium after being seen in the OB ED 1 day ago. Jayla Keller MD documented [facility]25 NoteHNO ID: [id number] Author: KARINA ADDISON MD Service: Obstetrics Author Type: Resident Type: Progress Notes Filed: 01/05/2025 08:31 Note Text: Attestation signed by Karina Addison MD at 01/05/2025 8:31 AM OB ED Attending Note Attending Note Delayed entry - I personally saw/examined the patient on 01/04/2025. I evaluated the patient and personally participated in the monroy components. I agree with the resident's findings and plan as documented and have discussed the case and management of the patient's care with the resident. Signature: Karina Addison MD Date: 01/05/2025 Time: 8:31 AM OBSTETRICS OB ED PROGRESS NOTE SERVICE DATE: January 05, 2025 SERVICE TIME: 4:36 AM Subjective Patient's stated reason for arrival: D, cramping CHIEF COMPLAINT: Diarrhea, abdominal cramping, feeling unwell HISTORY OF THE PRESENT ILLNESS: The patient is a 19 year old female, who is at 19w1d with an AMARI of 05/31/2025, by Last Menstrual Period dating method. has been confirmed by ultrasound. Patient reports that she started having diarrhea 4 days ago. States that she is having 4-6 water diarrhea episodes per day. Denies any nausea or vomiting. Denies any sick contacts. Denies eating any food out of the ordinary. Reports that she has some abdominal cramping with her diarrhea. Denies vaginal bleeding. States that she was recently treated for bacterial vaginosis infection with antibiotic course, which she completed 4-5 days ago. States that she has not had much to eat today other than hash browns and toast for breakfast. States that she has a hard time keeping well-hydrated when has abdominal pain. Patient also reports headache. States that is not very severe and frontal. Would like to try medications. Reports history of postural orthostatic tachycardia syndrome for which she is not currently on medications. States that she feels dizziness and lightheadedness overall. Denies fevers, chills, chest pain, shortness of breath. PAST MEDICAL HISTORY Diagnosis Date Asthma ([facility]) 2012 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[facility]) POTS (postural orthostatic tachycardia syndrome) Recurrent UTI No past surgical history on file. No family history on file. OB History Gravida1 Para0 Term0 Preterm0 AB0 Living0 SAB0 IAB0 Ectopic0 Multiple0 Live Births0 REVIEW OF SYSTEMS: GENERAL: Negative for weight loss, chills, or fevers RESPIRATORY: Negative for cough, dyspnea, or shortness of breath CARDIOVASCULAR: Negative for chest pain ABD: Negative for abdominal pain GI: Negative for nausea, vomiting, or diarrhea : Negative for dysuria or urinary frequency DIRECTOR MEDICAID: Negative for abnormal vaginal bleeding, abnormal vaginal discharge Objective LAST VITALS: Pulse: 102 BP: 120/63 Temp: 36.3 ?C (97.3 ?F) SpO2: 99 % SENSITIVE EXAMINATION CONSENT: Participation of a fellow, resident, medical student, or advanced practice provider student in performing the sensitive examination was discussed with the patient or authorized sales representative livestock. The patient or authorized sales representative livestock has agreed to proceed with the sensitive examination. PHYSICAL EXAM: General: No acute distress, appears comfortable Heart: Regular rate Lungs: Unlabored breathing on room air Abdomen: Gravid uterus palpated below umbilicus. No distension. Mild tenderness to palpation without rebound tenderness Extremities: Trace edema equal bilaterally CERVICAL EXAM: Closed ASSESSMENT: heart rate present: Mode: Doppler (01/04/252034 : Mariann Milton RN) Doppler/Fetoscope Rate: 140 bpm (01/04/252034 : Mariann Milton, LEVON) LABS ABO/RH: No results found for: ABORHD HCG QT: Diagnostic tests reviewed for today's visit: Most recent labs and imaging results. CBC: Recent Labs 01/05/25113 WBC 10.50 RBC 3.73* HB 11.4* HCT 33.6* PLT 223 MCV 90.1 MCH 30.6 MPV 9.3 CMP: Recent Labs 01/05/25113 NA 139 K 3.4* CHLOR 106 CO2 21* BUN 5* CREAT 0.51* GLUC 93 TPROT 5.8* CA 9.1 TBILI 0.3 ALKPHOS 46 ALT 13 AST 16 ANION 12 19 year old EGA:19w1d presenting for diarrhea, abdominal pain, headache. Assessment AND Plan Abdominal pain affecting (HCC) - Likely secondary to acute gastroenteritis - No concern for labor given closed cervix on multiple exams - No concern at this time for acute intraabdominal etiology given exam, vitals, labs - Discussed safe use of Tylenol in , patient declines other pain medications - Discussed return precautions, patient voiced understanding Diarrhea - Likely secondary to acute viral gastroenteritis - Received IV fluids - No concern at this time for acute intraabdominal etiology given exam, vitals, labs - Discussed natural course of (more content not included)...[facility]08-11-2025 Telephone encounter Note* Telephone Encounter - Maite Peterson, LEVON - 01/04/2025 3:04 PM EDT 19w0d Pt calls stating the past 4 to 5 days she has had loose stools. Today started with cramping in lower pelvic region Low back aching/numb pressure feeling (Feels like aching/pressure in back like when she's been on her period). Last 2 days Pt states she has been doing the BRAT diet, but states she has not noticed any difference. Denies abdominal pain, LOF, vomiting. Has taken Tylenol 500mg and stated it did not help & tried warm bath and also did not help. Pt states the pressure in her back/cramping is getti ng worse as the day goes on. Does report still having vaginal pressure & states this is stayingthe same since at [facility] 12/22/24. Last few weeks, Pt states extremely watery discharge. Went to [facility] at that time d/t havingsharp cervical pain & was treated for BV. Feels hydrated/Has been drinking liquid IV. Does havesome burning on urination & was seen on 12/30/24 in office-UA completed and TRACE protein and TRACE leukocytes. Advised Pt that since pain has worsened as the day as gone on that it would be best to go to [facility] OB triage to be evaluated as no appts available in office at this time. Pt did state she'd feel more comfortable going there and that is essentially why she called as she wanted to discuss with a nurse. Pt states her ride will not be able to pick her up for another 30 minutes, but Pt is agreeable to go to [place]. Dr. Aragon notified. Maite Peterson RN [facility]08-11-2025 Miscellaneous Notes* Telephone Encounter - Maite Peterson RN - 01/04/2025 3:04 PM EDT 19w0d Pt calls stating the past 4 to 5 days she has had loose stools. Today started with cramping in lower pelvic region Low back aching/numb pressure feeling (Feels like aching/pressure in back like when she's been on her period). Last 2 days Pt states she has been doing the BRAT diet, but states she has not noticed any difference. Denies abdominal pain, LOF, vomiting. Has taken Tylenol 500mg and stated it did not help & tried warm bath and also did not help. Pt states the pressure in her back/cramping is getti ng worse as the day goes on. Does report still having vaginal pressure & states this is stayingthe same since at [facility] 12/22/24. Last few weeks, Pt states extremely watery discharge. Went to [facility] at that time d/t havingsharp cervical pain & was treated for BV. Feels hydrated/Has been drinking liquid IV. Does havesome burning on urination & was seen on 12/30/24 in office-UA completed and TRACE protein and TRACE leukocytes. Advised Pt that since pain has worsened as the day as gone on that it would be best to go to [facility] triage to be evaluated as no appts available in office at this time. Pt did state she'd feel more comfortable going there and that is essentially why she called as she wanted to discuss with a nurse. Pt states her ride will not be able to pick her up for another 30 minutes, but Pt is agreeable to go to [place]. Dr. Aragon notified. Maite Peterson, RN documented in this encounterGen[facility]08-[facility]25 Miscellaneous Notes* Quick Notes - Lynnette Tapia APRN.CNM - 12/28/2024 11:15 AM EDT Patient is at 18 weeks gestation here for NOB. She is new to office and has received adequateprenatal care in [place]. Awaiting records. Lynnette Tapia APRN.CNM documented in this encounterGenesis Hospital08-04-2025 Progress note* Quick Notes - Lynnette Tapia APRN.CNM - 12/28/2024 11:15 AM EDT Patient is at 18 weeks gestation here for NOB. She is new to office and has received adequateprenatal care in [place]. Awaiting records. Lynnette Tapia APRN.CNM [facility]08-04-2025 NoteHNO ID: [id number] Author: LYNNETTE TAPIA APRN.CNM Service: ? Author Type: Commercial Lines Account Manager Type: Progress Notes Filed: 12/28/2024 13:23 Note Text: [employer] Panels offered: Patient declines. INITIAL OB ASSESSMENT HPI: aPl is a 19 year old White here to establish Obstetrical Care. Patient's last menstrual period was 08/24/2024. from OB Dating Form. was planned Complaints: No OB History Gravida1 Para0 Term0 Preterm0 AB0 Living0 SAB0 IAB0 Ectopic0 Multiple0 Live Births0 Previous history: Prior : never History of 4th degree laceration: NA History of shoulder dystocia: No History of Hypertensive disorders including pre-eclampsia or gestational hypertension: NA History of gestational diabetes: NA Patient's Risk Screening for delivery: Have you had a prior lin between 20w and 36w6d? No How many pregnancies have you had before? 0 Did you have a previous baby with a GBS Infection? No Please select all that apply for any prior : N/A MEDICAL/PSYCHOSOCIAL HISTORY: History of hemorrhage or bleeding concerns: No Thyroid Disease: No History of chronic hypertension: No History of pre-existing diabetes: No No results found for: ABORHD BMI 24.90 kg/(m2) Last Pap: History of abnormal pap: N/A Prior treatment for cervical dysplasia: N/A. Last HPV: History of STDs: N/A Partner History of STDs: None Did you have a partner with Herpes? No Tobacco use: No E-Cigarette/Vaping Use: No Caffeine use: No Drug use: No Alcohol use: No Multivitamin with Folic acid: Yes Would refuse blood transfusion if medically necessary: No Social Needs: How often does this describe you? I don't have enough money to pay my bills: Often Within the past 12 months, have you worried that your food would run out before you had money to buy more? Often In the past 12 months, has lack of reliable transportation kept you from going to medical appointments or work, or from getting things needed for daily living? Never In the past 12 months, have you had any concerns about having a place to live, or about the condition or quality of your housing? Sometimes Would you like more information on any of the following (please check all that apply)? Centering (group care classes); Fiscal Specialist; Commercial Lines Account Manager care Social History: Do you have any history of depression, anxiety, PTSD, or other mood problems? No Do you have a history of abuse or trauma that may impact your experience? No Are you currently employed? No Depression/Anxiety Screening: denies symptoms of depression. OB Depression and Anxiety Screening- This Encounter Feeling down, depressed, or hopeless: Not at all Little interest or pleasure in doing things: Not at all Feeling nervous, anxious, or on edge Several days Not being able to stop or control worrying Not at all Anxiety Pre-Screening Total (If >/= 3 additional questions will be reviewed) 1 Genetic Screening: Partner present: Yes Patient verbalized knowledge of partner family health history: Yes Do you or your partner have any personal or family history of defects not previously discussed: No Do you have history of a complicated by anomaly, genetic condition, or demise: No Preeclampsia Risk Screening: Screening for prevention of preeclampsia: High risk factors: None Moderate risk ractors: Nulliparity OB Risk Screening: Completed, no positive findings documented. Marital Status:Committed relationship Partner: Name: Zaki Steven Age: 19 Occupation: [employer]ets are family [employer] Gender: Male PAST MEDICAL HISTORY Diagnosis Date 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HCC) POTS (postural orthostatic tachycardia syndrome) Recurrent UTI No past surgical history on file. Current Outpatient Medications Medication Sig Dispense Refill cyclobenzaprine (FLEXERIL) 10 mg tablet Take 1 tablet by mouth three times a day as needed. 10 tablet 0 metroNIDAZOLE (FLAGYL) 500 mg tablet Take 1 tablet by mouth two times a day for 7 days. 14 tablet 0 No current facility-administered medications for this visit. Allergies As of Date: 12/28/2024 (No Known Allergies) Fully Assessed 12/22/2024 Does patient have penicillin allergy: No REVIEW OF SYSTEMS: GENERAL: Negative for: Fever or Chills and Positive for: Fatigue HEENT: Negative for: Headache, Impaired Vision, Ringing in Ears, Nosebleeds NECK: Negative for: Swelling, Pain, Stiffness RESPIRATORY: Negative for: Cough, Shortness of breath, Wheezing and POSITIVE FOR ASTHMA GASTROINTESTINAL: Positive for: Nausea and Vomiting MUSCULOSKELETAL: Negative for: Muscle or joint pain, stiffness, Joint swelling NEUROLOGIC/PSYCHIATRIC: Negative for: Weakness, Paralysis, Numbness, Tingling, Tremor, Memory loss Hx of Prozac for anxiety- stopped last year SKIN: Negative for: Rash, Itching GENITOURINARY: Negative f (more content not included)...[facility]08-04-2025 History of Present illness Narrative* Lynnette Tapia APRN.HUMPHREY - 12/28/2024 8:36 AM EDT [employer] Panels offered: Patient declines. INITIAL OB ASSESSMENT HPI: Pal is a 19 year old White here to establish Obstetrical Care. Patient's last menstrual period was 08/24/2024. from OB Dating Form. was planned Complaints: No OB History Gravida1 Para0 Term0 Preterm0 AB0 Living0 SAB0 IAB0 Ectopic0 Multiple0 Live Births0 Previous history: Prior : never History of 4th degree laceration: NA History of shoulder dystocia: No History of Hypertensive disorders including pre-eclampsia or gestational hypertension: NA History of gestational diabetes: NA Patient's Risk Screening for delivery: Have you had a prior lin between 20w and 36w6d? No How many pregnancies have you had before? 0 Did you have a previous baby with a GBS Infection? No Please select all that apply for any prior : N/A MEDICAL/PSYCHOSOCIAL HISTORY: History of hemorrhage or bleeding concerns: No Thyroid Disease: No History of chronic hypertension: No History of pre-existing diabetes: No No results found for: ABORHD BMI 24.90 kg/(m^2) Last Pap: History of abnormal pap: N/A Prior treatment for cervical dysplasia: N/A. Last HPV: History of STDs: N/A Partner History of STDs: None Did you have a partner with Herpes? No Tobacco use: No E-Cigarette/Vaping Use: No Caffeine use: No Drug use: No Alcohol use: No Multivitamin with Folic acid: Yes Would refuse blood transfusion if medically necessary: No Social Needs: How often does this describe you? I don't have enough money to pay my bills: Often Within the past 12 months, have you worried that your food would run out before you had money to buy more? Often In the past 12 months, has lack of reliable transportation kept you from going to medical appointments or work, or from getting things needed for daily living? Never In the past 12 months, have you had any concerns about having a place to live, or about the condition or quality of your housing? Sometimes Would you like more information on any of the following (please check all that apply)? Centering (group care classes); Fiscal Specialist; Commercial Lines Account Manager care Social History: Do you have any history of depression, anxiety, PTSD, or other mood problems? No Do you have a history of abuse or trauma that may impact your experience? No Are you currently employed? No Depression/Anxiety Screening: denies symptoms of depression. OB Depression and Anxiety Screening- This Encounter Feeling down, depressed, or hopeless: Not at all Little interest or pleasure in doing things: Not at all Feeling nervous, anxious, or on edge Several days Not being able to stop or control worrying Not at all Anxiety Pre-Screening Total (If >/= 3 additional questions will be reviewed) 1 Genetic Screening: Partner present: Yes Patient verbalized knowledge of partner family health history: Yes Do you or your partner have any personal or family history of defects not previously discussed: No Do you have history of a complicated by anomaly, genetic condition, or demise: No Preeclampsia Risk Screening: Screening for prevention of preeclampsia: High risk factors: None Moderate risk ractors: Nulliparity OB Risk Screening: Completed, no positive findings documented. Marital Status:Committed relationship Partner: Name: Zaki Steven Age: 19 Occupation: [employer]ets [employer] family too Gender: Male PAST MEDICAL HISTORY Diagnosis Date 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HCC) POTS (postural orthostatic tachycardia syndrome) Recurrent UTI No past surgical history on file. Current Outpatient Medications Medication Sig Dispense Refill cyclobenzaprine (FLEXERIL) 10 mg tablet Take 1 tablet by mouth three times a day as needed. 10 tablet 0 metroNIDAZOLE (FLAGYL) 500 mg tablet Take 1 tablet by mouth two times a day for 7 days. 14 tablet 0 No current facility-administered medications for this visit. Allergies As of Date: 12/28/2024 (No Known Allergies) Fully Assessed 12/22/2024 Does patient have penicillin allergy: No REVIEW OF SYSTEMS: GENERAL: Negative for: Fever or Chills and Positive for: Fatigue HEENT: Negative for: Headache, Impaired Vision, Ringing in Ears, Nosebleeds NECK: Negative for: Swelling, Pain, Stiffness RESPIRATORY: Negative for: Cough, Shortness of breath, Wheezing and POSITIVE FOR ASTHMA GASTROINTESTINAL: Positive for: Nausea and Vomiting MUSCULOSKELETAL: Negative for: Muscle or joint pain, stiffness, Joint swelling NEUROLOGIC/PSYCHIATRIC: Negative for: Weakness, Paralysis, Numbness, Tingling, Tremor, Memory loss Hx of Prozac for anxiety- stopped last year SKIN: Negative for: Rash, Itching GENITOURINARY: Negative for: vaginal itching, vaginal discharge, hematuria or dysuria and Positive for: urinary frequency SENSITIVE EXAM: The sensitive examination was discussed with the Patient or Patient's Authorized Dish Technician. As applicable, any other physician, advance practice provider, medical student, or other health professional student that will be observing or involved in the sensitive examination for educational or training purposes was discussed with the Patient or Authorized Dish Technician. The Patient or Authorized Dish Technician has agreed to proceed with the sensitive examination. (Sensitive examination includes inspection and/or palpation of the breasts, pelvis, prostate and anorectal regions). PHYSICAL EXAM: BP 114/74 Ht 5' 7 (1.70m) Wt 159 lb (72.1kg) LMP 08/24/2024 BMI 24.90 kg/(m^2). GENERAL: pleasant in no apparent distress DERMATOLOGY: Normal and without lesions NECK: Supple and full range of motion CHEST: Normal inspiratory effort BREAST: deferred ABDOMEN: soft, non-tender, and no masses NEURO: alert and oriented x3,exam grossly non-focal PELVIS: External genitalia normal without lesions. Perineal body intact. Limited OB ultrasound exam: not performed ASSESSMENT: 19 year old at 18w0d wks gestational age PLAN: 1) Patient oriented to practice. Patient given new OB orientation folder. Discussed nutrition, folic acid supplementation, dietary guidelines, exercise, smoking, alcohol, caffeine, and drug use. Discussed gestational weight gain guidelines. Discussed routine OB labs including STD/HIV. Discussed how to access Your guide to a health and the Early Childhood Teacher. Discussed Centering group- MAY BE INTERESTED 2) Screening: Hemoglobin A1C: declined Baby Aspirin: The patient has been counseled about the potential benefits of low dose aspirin in and our recommendation that this be offered to all patients, regardless of whether they meet the high risk criteria specified above. She Accepts Aneuploidy Screening: Discussed aneuploidy screening, nuchal translucency/first trimester early anatomy ultrasound and NIPT. The risks/benefits and limitations of NIPT/aneuploidy screening were reviewed including the potential for false negative and false positive results. The availability of genetic counseling was reviewed. Information on aneuploidy screening was provided. The patient chooses toproceed with First trimester early anatomy ultrasound (12-13w6d) and NIPT (10 weeks) Myriad Carrier Screening: Discussed myriad carrier screening. We discussed the availability of professional-society guided carrier screening and reviewed the conditions screened and limitations of screening. The availability of genetic counseling was reviewed. Information on carrier screening was provided. The patient previously completed- CF CARRIER 3) Patient offered option of Virtual Visits. Patient prefers in person visits. - Previous OB records being sent - Patient has completed all labs and ultrasounds - Start ASA nightly - Continue vitamin - Follow up in 2 weeks or sooner prirving. Lynnette Tapia APRN.CNM documented in this encounterGen[facility]08-04-[facility]25 Instructions* Patient Instructions* Raplh Molina LPN - 12/28/2024 8:36 AM EDT Please select the following link to access the [facility] Your Guide to a Healthy . [email or web address] documented in this encounterGenesis Hospital08-01-2025 Telephone encounter Note * Telephone Encounter - Isaura Pereira RN - 12/25/2024 12:13 PM EDT Records received from [facility] in [place]. In chart prep binder for NOB appt on 12/28 with CP. Isaura Pereira RN [facility]08-01-2025 Miscellaneous Notes* Telephone Encounter - Isaura Pereira RN - 12/25/2024 12:13 PM EDT Records received from [facility] in [place]. In chart prep binder for NOB appt on 12/28 with CP. Isaura Pereira RN documented in this encounterGenesis Hospital07-29-2025 NoteHNO ID: [id number] Author: MARK FOREMAN MD Service: Obstetrics Author Type: Resident Type: Progress Notes Filed: 01/18/2025 11:02 Note Text: Attestation signed by Mark Foreman MD at 01/18/2025 11:02 AM I saw and evaluated the patient. Discussed with the resident and agree with resident's findings and plan as documented in the resident's note. 17 weeks gestation with pelvic pressure and lower abdominal cramping. Delayed entry - I personally saw/examined the patient on December 22, 2024 Mark Foreman MD OBSTETRICS OB ED PROGRESS NOTE SERVICE DATE: December 22, 2024 SERVICE TIME: 8:52 PM Subjective Patient's stated reason for arrival: cramping, cervical pain and pressure CHIEF COMPLAINT: Abdominal pain HISTORY OF THE PRESENT ILLNESS: The patient is a 19 year old female, who is at 17w1d with an AMARI of 05/31/2025, by Patient Reported dating method. has been confirmed by ultrasound. Patient complaining of RLQ abdominal pain extending medially to her cervix. She has a hx of Myles Danlos syndrome, POTS, and recurrent UTIs. She recently moved from [place] and is establishing care with [facility]. Pt states her abdominal pain is intermittent and began around 6 pm yesterday. She was evaluated at [place] ED yesterday where she was found to have normal FHR. She has had nausea/vomiting with this for which she is taking B6 for. She has also had dysuria with this . Previous urinalysis with culture have been consistent with infection. Dysuria has persisted but is not any worse today, denies any hematuria. She also complains of some increase in frequency of vaginal discharge that she describes as clear and of normal thickness, denies any odor. She has also had round ligament pain with her . She denies any vaginal bleeding. Patient denies nausea/vomiting, denies vaginal bleeding. PAST MEDICAL HISTORY Diagnosis Date 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HCC) POTS (postural orthostatic tachycardia syndrome) Recurrent UTI History reviewed. No pertinent surgical history. OB History Gravida1 Para0 Term0 Preterm0 AB0 Living0 SAB0 IAB0 Ectopic0 Multiple0 Live Births0 REVIEW OF SYSTEMS: GENERAL: No weight loss, malaise or fevers. RESPIRATORY: Negative for cough, hemoptysis, wheezing, COPD, dyspnea or shortness of breath CARDIOVASCULAR: Negative for chest pain, leg swelling, hypertension, CHF or palpitations GI: No nausea, vomiting, or diarrhea : + dysuria DIRECTOR MEDICAID: Negative for abnormal vaginal bleeding, + for increase in vaginal discharge Objective LAST VITALS: Pulse: 92 BP: 125/78 Resp: 18 Temp: 37 ?C (98.6 ?F) SpO2: 100 % Height: 170.2 cm (5' 7) Weight: 70.3 kg (155 lb) BMI: 24.28 SENSITIVE EXAMINATION CONSENT: Participation of a fellow, resident, medical student, or advanced practice provider student in performing the sensitive examination was discussed with the patient or authorized sales representative livestock. The patient or authorized sales representative livestock has agreed to proceed with the sensitive examination. PHYSICAL EXAM: General: WD, WN Abdomen: soft, ,mild diffuse tenderness Pelvis: External genitalia normal without lesions. Perineal body intact. No vaginal or cervical lesions. Cervix closed. Thick discharge noted. No odor noted. Extremities: no edema SSE: wet prep ASSESSMENT: heart rate present: Mode: Doppler (12/22/242020 : Mariann Milton, LEVON) Doppler/Fetoscope Rate: 150 bpm (12/22/242020 : Mariann Milton, LEVON) LABS None Diagnostic tests reviewed for today's visit: Most recent labs and imaging results. 19 year old EGA:17w1d. Assessment AND Plan Bacterial vaginosis The patient is a 19 year old female, who is at 17w1d with an AMARI of 05/31/2025, by Patient Reported dating method. has been confirmed by ultrasound. Patient complaining of RLQ abdominal pain extending medially to her cervix with accompanying dysuria and increase in vaginal discharge. She has a hx of Myles Danlos syndrome, POTS, and recurrent UTIs. On my examination, patient appears comfortable and in no acute distress. She is hemodynamically stable and afebrile. FHR confirmed on doppler. Patient's SSE did show some abnormal vaginal discharge. Wet mount showed multiple clue cells consistent with bacterial vaginosis. I do think patient's symptoms are related to her BV as well as round ligament pain she has been experiencing with this . I am not concerned about any abdominal pathology at this time such as appendicitis as the patient's abdominal exam is benign with minimal tenderness on my exam and she has no other accompanying symptoms that would concern me for this. For treatment of BV, patient sent home with a prescription for a course (more content not included)...[facility]07-29-2025 Telephone encounter Note* Telephone Encounter - Magda Hagen RN - 12/22/2024 4:23 PM EDT Patient notified. Magda Hagen RN [facility]07-29-2025 Miscellaneous Notes* Telephone Encounter - Magda Hagen RN - 12/22/2024 4:23 PM EDT Patient notified. Magda Hagen RN * Telephone Encounter - Karina Addison MD - 12/22/2024 3:38 PM EDT Agree w/ keep scheduled appointment. Make sure we have US results/labs for NOB. If infection ruled out and no bleeding would recommend stretching, tylenol and warm baths prn. Can return to ED if urgent issue or go to [facility] at [facility] or see if there is a sooner NOB elsewhere to get her established then f/u here. Karina Addison MD * Telephone Encounter - Magda Hagen RN - 12/22/2024 12:26 PM EDT New WHI OB seen at [facility] ER yesterday for pelvic pain. LMP 08/24/24. Approximately 17w1d. Patient calling because she still continues to have pelvic pain and pressure. Pain rate of 5-6. Taking Tylenol and using heat with no relief. States when she went to the ER her pain was 8-9. Denies LOF or VB. Per [facility] ER report: Discussed the case with on-call PAINT DEPARTMENT SUPERVISOR for [facility] Dr. Aragon who states that she can follow-up with them on Saturday. She was advised to return with worsening symptoms or any concerns. She isagreeable this plan all question concerns answered she was discharged home in stable condition. Patient is scheduled for NOB on 12/28/24. Pain is not worsening, but patient states she called because it isn't better. Advised to go back to ER if her pain worsens or if she develops LOF or vaginal bleeding. Recommended patient come to our office to sign a release of medical records from her previous OB. [facility] ER report to RR to review. Magda Hagen RN [facility] Telephone encounter Note * Telephone Encounter - Karina Addison MD - 12/22/2024 3:38 PM EDT Agree w/ keep scheduled appointment. Make sure we have US results/labs for NOB. If infection ruled out and no bleeding would recommend stretching, tylenol and warm baths prn. Can return to ED if urgent issue or go to [facility] at [facility] or see if there is a sooner NOB elsewhere to get her established then f/u here. Karina Addison MD [facility] Work Phone: 1(566) 432-682107-29-2025 Telephone encounter Note* Telephone Encounter - Magda Hagen RN - 12/22/2024 12:26 PM EDT New WHI OB seen at [facility] ER yesterday for pelvic pain. LMP 08/24/24. Approximately 17w1d. Patient calling because she still continues to have pelvic pain and pressure. Pain rate of 5-6. Taking Tylenol and using heat with no relief. States when she went to the ER her pain was 8-9. Denies LOF or VB. Per [facility] ER report: Discussed the case with on-call PAINT DEPARTMENT SUPERVISOR for [facility] Dr. Aragon who states that she can follow-up with them on Saturday. She was advised to return with worsening symptoms or any concerns. She isagreeable this plan all question concerns answered she was discharged home in stable condition. Patient is scheduled for NOB on 12/28/24. Pain is not worsening, but patient states she called because it isn't better. Advised to go back to ER if her pain worsens or if she develops LOF or vaginal bleeding. Recommended patient come to our office to sign a release of medical records from her previous OB. [facility] ER report to to review. Magda Hagen RN [facility]07-28-2025 Discharge summary [facility] Medical Records Department [address] [place] [address] Emergency Department Summary 12/21/24 MR#: [id number] Acct: [id number] Name: PAL NICHOLAS Rep #:[id number] : 2005 19 From: Aftab Mendoza DO PCP: Care Physician,No Primary Status :REG ER Location: ED HPI HPI - Female History of Present Illness Chief Complaint: Female C/O Narrative Narrative: Patient is a 19-year-old female G1, P0 currently 17 weeks no significant past medical history who presents to the emergency department with chief complaint of cramping and pressure. Patient states that earlier this evening she noted that she had a lot of cramping and pressure in her lower p lety and notes that she came here for the valuation management. States that she is following with [facility]. Patient denies any vaginal spotting or bleeding. [facility] Medical History (Updated 12/21/24 @ 23:[address] Aftab Mendoza DO) POTS (postural orthostatic tachycardia syndrome) Myles-Danlos syndrome Allergy/AdvReac Type Severity Reaction Status Date / Time No Known Allergies Allergy Verified 12/21/24 20:27 Social History Smoking Status: Never smoker ROS ROS ED ROS Narrative Constitutional: Denies any fevers, chills, headaches, lightness, dizziness Eyes: Denies double vision Cardiovascular: Denies chest pain Respiratory: Denies shortness of breath Abdomen: Complains of lower abdominal pressure as noted above denies nausea vomiting : Denies any vaginal spotting or bleeding denies any painful urination Neurological: Denies any numbness, wheeze, tingling Musculoskeletal: Denies back pain Skin: Denies any rashes or lesions EXAM Physical Exam Narrative Exam Narrative: General: Patient lying in bed rest comfortably did not appear to be in acute distress Head: Atraumatic, normocephalic Eyes: PERRL bilaterally, EOMI blood, no conjunctival injection noted Neck: Soft, supple, trachea midline Cardiovascular: Patient tachycardic with a regular rhythm Respiratory: Clear to auscultation bilaterally Abdomen: Soft, gravid abdomen no tenderness to palpation Extremities: +5/5 strength in the bilateral upper and lower extremities Neurological: Patient follow commands knew that she was at [facility] the year is 2024 Skin: Warm, dry, tact no rashes or lesions noted Const Vital Signs: 12/21/24 20:27 12/21/24 22:26 Temperature 97.4 F L Temperature Source Oral Pulse Rate 106 H 80 Respiratory Rate 18 18 Blood Pressure 127/91 H 110/58 L Blood Pressure Mean 103 75 Pulse Ox 99 100 Oxygen Delivery Method Room Air Room Air MDM MDM MDM Narrative Medical decision making narrative: Patient is a 19-year-old female who presented to the Emergency Department 17 weeks with a chief complaint of pressure and cramping in her lower abdomen. On the differential diagnose includesbut not limited to threatened miscarriage, UTI, dehydration. Once workup is obtained reviewed she will be reevaluated. Patient will be given 2 L of IV fluids heart tones 130 Patient CBC reviewed showed no evidence leukocytosis white blood count normal 10.4, hemoglobin 12.5, platelet count normal at 248. Patient sodium was normal at 137, potassium normal 3.8,, dioxide slightly low at 20.6, AST and ALT are 16 and 10 respectively total bilirubin normal at 0.26. Patient urinalysis reviewedshowed no evidence of infection. Discussed the case with on-call PAINT DEPARTMENT SUPERVISOR for [facility] Dr. Aragon who states that she can follow-up with them on Saturday. She was advised to return with worsening symptoms or any concerns. She isagreeable this plan all question concerns answered she was discharged home in stable condition. Lab Data Labs: Laboratory Results - last 24 hr 12/21/24 12/21/24 21:36 21:58 WBC 10.4 RBC 4.12 L Hgb 12.5 Hct 36.3 L MCV 88.1 MCH 30.3 MCHC 34.4 RDW Std Deviation 44.6 H RDW Coeff of Jeannie 14.0 Plt Count 248 MPV 9.1 Immature Gran % (Auto) 0.700 Neut % (Auto) 72.9 H Lymph % (Auto) 18.4 L [place] % (Auto) 6.2 Eos % (Auto) 1.4 Baso % (Auto) 0.4 Absolute Neuts (auto) 7.6 Absolute Lymphs (auto) 1.91 Nucleated RBC % 0 Sodium 137 Potassium 3.8 Chloride 103 Carbon Dioxide 20.6 L Anion Gap 13 BUN 7 Creatinine 0.54 L Estim Creat Clear Calc 161.60 Est GFR (MDRD) Non-Af 135 BUN/Creatinine Ratio 13.0 Glucose 118 H Calcium 9.0 Total Bilirubin 0.26 AST 16 ALT 10 Alkaline Phosphatase 44 Total Protein 6.5 Albumin 3.8 Globulin 2.6 Albumin/Globulin Ratio 1.5 Urine Color Yellow Urine Clarity Clear Urine pH 6.5 Ur Specific [place] 1.010 Urine Protein Negative Urine Glucose (UA) Normal Urine Ketones Negative Urine Occult Blood Negative Urine Nitrite Negative Urine Bilirubin Negative Urine Urobilinogen Normal Ur Leukocyte Esterase Negative Urine RBC 0-5 SEEN Urine WBC 0-5 SEEN Ur Squamous Epith Cells 0-5 SEEN Urine Bacteria 0 SEEN Urine Mucus 0 SEEN Discharge Plan Triage Chief Complaint: Female C/O Other Complaint: ED Provider: Aftab Mendoza Dx/Rx/DC Orders Clinical Impression: Abdominal cramping affecting , Currently , Dehydration Primary Care Provider: Care Physician,No Primary Referrals: Magda Aragon MD [Med Staff - Active Staff] - Care Physician,No Primary [Primary Care Provider] - Activity Restrictions/Additional Instructions: Follow-up with your PAINT DEPARTMENT SUPERVISOR at your scheduled appointment on Saturday. Your blood work did not show any acute findings your urine did not show any evidence infection. Return with worsening symptoms or any concerns. Ensure you are hydrating plenty with water. Print Language: Lithuanian Disposition Disposition: Home, Self Care What to do if you have Problems For any increased pain, shortness of breath, bleeding, nausea or vomiting, chestpain, or any unexpected problems, contact your Primary Care Provider. Call [facility] ([phone]) or report tothe closest Emergency Room. Call 911 if necessary. 12/21/24 0858 Cosigner Signature (if applicable): CC: No Primary Care Physician ~ Signed [facility]07-28-2025 Discharge summary Author Aftab Mendoza [facility] Note Date/Time December 21, 2024 11:3 9pm [facility] Medical Records Department [address] [place] [address] Emergency Department Summary 12/21/24 MR#: [id number] Acct: [id number] Name: PAL NICHOLAS Rep #:[id number] : 2005 19 From: Aftab Mendoza DO PCP: Care Physician,No Primary Status :REG ER Location: ED HPI HPI - Female History of Present Illness Chief Complaint: Female C/O Narrative Narrative: Patient is a 19-year-old female G1, P0 currently 17 weeks no significant past medical history who presents to the emergency department with chief complaint of cramping and pressure. Patient states that earlier this evening she noted that she had a lot of cramping and pressure in her lower pelvis and notes that she came here for the valuation management. States that she is following with [facility]. Patient denies any vaginal spotting or bleeding. [facility] Medical History (Updated 12/21/24 @ 23:[address] Aftab Mendoza DO) POTS (postural orthostatic tachycardia syndrome) Myles-Danlos syndrome Allergy/AdvReac Type Severity Reaction Status Date / Time No Known Allergies Allergy Verified 12/21/24 20:27 Social History Smoking Status: Never smoker ROS ROS ED ROS Narrative Constitutional: Denies any fevers, chills, headaches, lightness, dizziness Eyes: Denies double vision Cardiovascular: Denies chest pain Respiratory: Denies shortness of breath Abdomen: Complains of lower abdominal pressure as noted above denies nausea vomiting : Denies any vaginal spotting or bleeding denies any painful urination Neurological: Denies any numbness, wheeze, tingling Musculoskeletal: Denies back pain Skin: Denies any rashes or lesions EXAM Physical Exam Narrative Exam Narrative: General: Patient lying in bed rest comfortably did not appear to be in acute distress Head: Atraumatic, normocephalic Eyes: PERRL bilaterally, EOMI blood, no conjunctival injection noted Neck: Soft, supple, trachea midline Cardiovascular: Patient tachycardic with a regular rhythm Respiratory: Clear to auscultation bilaterally Abdomen: Soft, gravid abdomen no tenderness to palpation Extremities: +5/5 strength in the bilateral upper and lower extremities Neurological: Patient follow commands knew that she was at [facility] the year is 2024 Skin: Warm, dry, tact no rashes or lesions noted Const Vital Signs: 12/21/24 20:27 12/21/24 22:26 Temperature 97.4 F L Temperature Source Oral Pulse Rate 106 H 80 Respiratory Rate 18 18 Blood Pressure 127/91 H 110/58 L Blood Pressure Mean 103 75 Pulse Ox 99 100 Oxygen Delivery Method Room Air Room Air MDM MDM MDM Narrative Medical decision making narrative: Patient is a 19-year-old female who presented to the Emergency Department 17 weeks with a chief complaint of pressure and cramping in her lower abdomen. On the differential diagnose includes but not limited to threatened miscarriage, UTI, dehydration. Once workup is obtained reviewed she will be reevaluated. Patient will be given 2 L of IV fluids heart tones 130 Patient CBC reviewed showed no evidence leukocytosis white blood count normal 10.4, hemoglobin 12.5, platelet count normal at 248. Patient sodium was normal at 137, potassium normal 3.8,, dioxide slightly low at 20.6, AST and ALT are 16 and 10 respectively total bilirubin normal at 0.26. Patient urinalysis reviewedshowed no evidence of infection. Discussed the case with on-call PAINT DEPARTMENT SUPERVISOR for [facility] Dr. Aragon who states that she can follow-up with them on Saturday. She was advised to return with worsening symptoms or any concerns. She is agreeable this plan all question concerns answered she was discharged home in stable condition. Lab Data Labs: Laboratory Results - last 24 hr 12/21/24 12/21/24 21:36 21:58 WBC 10.4 RBC 4.12 L Hgb 12.5 Hct 36.3 L MCV 88.1 MCH 30.3 MCHC 34.4 RDW Std Deviation 44.6 H RDW Coeff of Jeannie 14.0 Plt Count 248 MPV 9.1 Immature Gran % (Auto) 0.700 Neut % (Auto) 72.9 H Lymph % (Auto) 18.4 L [place] % (Auto) 6.2 Eos % (Auto) 1.4 Baso % (Auto) 0.4 Absolute Neuts (auto) 7.6 Absolute Lymphs (auto) 1.91 Nucleated RBC % 0 Sodium 137 Potassium 3.8 Chloride 103 Carbon Dioxide 20.6 L Anion Gap 13 BUN 7 Creatinine 0.54 L Estim Creat Clear Calc 161.60 Est GFR (MDRD) Non-Af 135 BUN/Creatinine Ratio 13.0 Glucose 118 H Calcium 9.0 Total Bilirubin 0.26 AST 16 ALT 10 Alkaline Phosphatase 44 Total Protein 6.5 Albumin 3.8 Globulin 2.6 Albumin/Globulin Ratio 1.5 Urine Color Yellow Urine Clarity Clear Urine pH 6.5 Ur Specific [place] 1.010 Urine Protein Negative Urine Glucose (UA) Normal Urine Ketones Negative Urine Occult Blood Negative Urine Nitrite Negative Urine Bilirubin Negative Urine Urobilinogen Normal Ur Leukocyte Esterase Negative Urine RBC 0-5 SEEN Urine WBC 0-5 SEEN Ur Squamous Epith Cells 0-5 SEEN Urine Bacteria 0 SEEN Urine Mucus 0 SEEN Discharge Plan Triage Chief Complaint: Female C/O Other Complaint: ED Provider: Aftab Mendoza Dx/Rx/DC Orders Clinical Impression: Abdominal cramping affecting , Currently , Dehydration Primary Care Provider: Care Physician,No Primary Referrals: Magda Aragon MD [Med Staff - Active Staff] - Care Physician,No Primary [Primary Care Provider] - Activity Restrictions/Additional Instructions: Follow-up with your PAINT DEPARTMENT SUPERVISOR at your scheduled appointment on Saturday. Your blood work did not show any acute findings your urine did not show any evidence infection. Return with worsening symptoms or any concerns. Ensure you are hydrating plenty with water. Print Language: Lithuanian Disposition Disposition: Home, Self Care What to do if you have Problems For any increased pain, shortness of breath, bleeding, nausea or vomiting, chestpain, or any unexpected problems, contact your Primary Care Provider. Call [facility] ([phone]) or report to the closest Emergency Room. Call 911 if necessary. 12/21/24 1393 <Electronically signed by Aftab Mendoza DO> Cosigner Signature (if applicable): CC: No Primary Care Physician ~ Signed [facility] Work Phone: 1(239) 433-863307-28-2025 Hospital Discharge instructionsAdditional Instructions Follow-up with your PAINT DEPARTMENT SUPERVISOR at your scheduled appointment on Saturday. Your blood work did not show any acute findings your urine did not show any evidence infection. Return with worsening symptoms or any concerns. Ensure you are hydrating plenty with water.[facility] Work Phone: 1(765) 153-734907-08-2025 Telephone encounter Note* Telephone Encounter - Maria Alejandra Kay RN - 12/01/2024 10:27 AM EDT Name and verified. Patient wishes to transfer to [facility] for OB care. AMARI? 05/31/25 Gestational age? 14w1d Patient aware to sign up for My Chart so she can receive the family day care worker messages. What facility is she transferring from? [facility] in [place] Moving to [place] in 2 weeks and will be approx 16 wks at that time When was her last office visit or will be the last visit with the current facility? yesterday Does patient have records she is bringing with her? Can have them faxed but will need fax number Any current pelvic pain/vaginal bleeding or any medical concerns that affect the ? Ehler'sDanlos Syndrome diagnosed 4 years ago Which office/provider would the patient like to establish in? [place] Will route this encounter to the desired office. Maria Alejandra Kay RN [facility]07-08-2025 Miscellaneous Notes* Telephone Encounter - Maria Alejandra Kay RN - 12/01/2024 10:27 AM EDT Name and verified. Patient wishes to transfer to [facility] for OB care. AMARI? 05/31/25 Gestational age? 14w1d Patient aware to sign up for My Chart so she can receive the family day care worker messages. What facility is she transferring from? [facility] in [place] Moving to [place] in 2 weeks and will be approx 16 wks at that time When was her last office visit or will be the last visit with the current facility? yesterday Does patient have records she is bringing with her? Can have them faxed but will need fax number Any current pelvic pain/vaginal bleeding or any medical concerns that affect the ? Ehler'sDanlos Syndrome diagnosed 4 years ago Which office/provider would the patient like to establish in? [place] Will route this encounter to the desired office. Maria Alejandra Kay RN * Telephone Encounter - Maria Alejandra Kay RN - 12/01/2024 10:09 AM EDT Call placed to patient to triage for new OB appt. Left message for patient to call back Maria Alejandra Kay RN * Telephone Encounter - Maria Alejandra Kay RN - 12/01/2024 8:38 AM EDT Call placed to patient to triage for new OB appt. No answer, will try later Maria Alejandra Kay RN * Telephone Encounter - Maria Alejandra Kay RN - 12/01/2024 8:37 AM EDT ----- Message from Rica Pendleton sent at 11/30/2024 4:05 PM EDT ----- Regarding: New/[facility] OB 16 weeks Patient has been identified by name and Date of : Yes Patient: Pal Garcia Nguyễn Harper Date of : 2005 Provider for this encounter : [facility]ING MACHINE [facility]ATOR [facility] Reason for call: New OB patient (16 weeks as of 11/30/24), [facility] from [place] Was an appointment scheduled: No Reason for requesting visit (RFV/signs and symptoms/diagnosis) : Establish with OB at [facility] for continuation of care. Person calling: self Return call to: self Call patient at: [phone] (cell), it is OK to leave message Payor: ANTHEM / Plan: BLUE CARD PPO OOS / Product Type: PPO / Rica Garcia [facility] Telephone encounter Note * Telephone Encounter - Maria Alejandra Kay RN - 12/01/2024 10:09 AM EDT Call placed to patient to triage for new OB appt. Left message for patient to call back Maria Alejandra Kay RN [facility]07-08-2025 Telephone encounter Note* Telephone Encounter - Maria Alejandra Kay RN - 12/01/2024 8:38 AM EDT Call placed to patient to triage for new OB appt. No answer, will try later Maria Alejandra Kay RN [facility]07-08-2025 Telephone encounter Note* Telephone Encounter - Maria Alejandra Kay RN - 12/01/2024 8:37 AM EDT ----- Message from Rica Pendleton sent at 11/30/2024 4:05 PM EDT ----- Regarding: New/[facility] OB 16 weeks Patient has been identified by name and Date of : Yes Patient: Pal Nicholas Date of : 2005 Provider for this encounter : [facility] Reason for call: New OB patient (16 weeks as of 11/30/24), [facility] from [place] Was an appointment scheduled: No Reason for requesting visit (RFV/signs and symptoms/diagnosis) : Establish with OB at [place] for continuation of care. Person calling: self Return call to: self Call patient at: [phone] (cell), it is OK to leave message Payor: ANTHEM / Plan: BLUE CARD PPO OOS / Product Type: PPO / Rica Garcia [facility] noteNo assessment information availableWCincinnati [facility] Work Phone: Evaluation note* Diagnosis Visit for screening ([facility])- Primary Unspecified screening 18 weeks gestation of ([facility]) state, incidental Encounter for supervision of high risk in second trimester, antepartum ([facility]) 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[facility]) POTS (postural orthostatic tachycardia syndrome) Tachycardia, unspecified 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 Screening for STD (sexually transmitted disease) Screening examination for venereal disease Abdominal pain during in second trimester ([facility]) Bacterial vaginosis Vaginitis and vulvovaginitis, unspecified documented in this encounter [facility] note* Diagnosis Abdominal pain affecting ([facility]) Diarrhea Hypokalemia Hypopotassemia Headache Chest pain during ([facility]) Vaginal discharge during ([facility]) Dizziness Dizziness and giddiness Chronic hypertension affecting ([facility]) 19 weeks gestation of ([facility]) state, incidental Pelvic pressure in ([facility]) Other specified complication, antepartum Bacterial vaginosis- Primary Vaginitis and vulvovaginitis, unspecified 20 weeks gestation of ([facility]) state, incidental Burning with urination Dysuria Palpitations Other fatigue Weakness Other malaise and fatigue Encounter for supervision of normal first in second trimester ([facility]) Supervision of normal first documented in this encounter [facility] note* Diagnosis Abdominal pain affecting ([facility]) Diarrhea Hypokalemia Hypopotassemia Headache Chest pain during ([facility]) Vaginal discharge during ([facility]) Dizziness Dizziness and giddiness Chronic hypertension affecting ([facility]) 19 weeks gestation of ([facility]) state, incidental Pelvic pressure in ([facility]) Other specified complication, antepartum POTS (postural orthostatic tachycardia syndrome)- Primary Tachycardia, unspecified Visit for screening ([facility]) Unspecified screening 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HCC) Chronic hypertension affecting ([facility]) documented in this encounter [facility] note* Diagnosis Abdominal pain affecting (HCC) Diarrhea Hypokalemia Hypopotassemia Headache Chest pain during (HCC) Vaginal discharge during (HCC) Dizziness Dizziness and giddiness Chronic hypertension affecting (HCC) Pelvic pressure in (HCC) Other specified complication, antepartum Dysuria- Primary documented in this encounter [facility] note* Diagnosis Diarrhea Hypokalemia Hypopotassemia Headache Chest pain during (HCC) Vaginal discharge during (HCC) Dizziness Dizziness and giddiness Pelvic pressure in (HCC) Other specified complication, antepartum Chronic hypertension affecting (HCC) Abdominal pain affecting (HCC) 21 weeks gestation of ([facility]) state, incidental Encounter for supervision of normal first in second trimester ([facility])- Primary Supervision of normal first Vaginal discharge Leukorrhea, not specified as infective 21 weeks gestation of ([facility]) state, incidental Abdominal pain affecting ([facility]) * Assessment & Plan Note - Karina Saldaña MD - 01/20/2025 10:40 AM EDTAssociated Problem(s): 21 weeks gestation of (HCC) RTO as scheduled * Assessment & Plan Note - Karina Saldaña MD - 01/20/2025 10:40 AM EDTAssociated Problem(s): Abdominal pain affecting (HCC) Went to ER had CT scan - no acute findings. Causes of pain reviewed with patient. - abdominal binder documented in this encounter [facility] note* Diagnosis Diarrhea Hypokalemia Hypopotassemia Headache Chest pain during (HCC) Vaginal discharge during (HCC) Dizziness Dizziness and giddiness Pelvic pressure in (HCC) Other specified complication, antepartum Chronic hypertension affecting (HCC) Abdominal pain affecting (HCC) 21 weeks gestation of (HCC) state, incidental Encounter for supervision of normal first in second trimester (HCC)- Primary Supervision of normal first Vaginal discharge Leukorrhea, not specified as infective 21 weeks gestation of (HCC) state, incidental Abdominal pain affecting (HCC) Vaginal discharge during , antepartum (HCC)- Primary * Assessment & Plan Note - Lester Phillips MD - 02/02/2025 2:28 PM EDTAssociated Problem(s): Vaginal discharge during (HCC) Orders: UA DIP, URINE (POC) [facility] Author Magda Aragon [facility] Note Date/Time February 02, 2025 11:38pm [facility] Medical Records Department [address] [place] [id number] OB Triage Physician Note 02/02/25 2336 MR#: [id number] Acct: [id number] Name: PAL NICHOLAS Rep #:[id number] : 2005 19 From: Magda Aragon MD PCP: Care Physician,No Primary Status :REG CLI Y Location: [place] [address] HPI - General General Date of Admission: 02/02/25 Date of Service: 02/02/25 Chief Complaint: cramping HPI Narrative PAL WEATHERS CIELOTY, is a 19 F who presents cramping. No bleeding. Some movement.Was seen in office today with normal discharge. Maternal Data Information Final AMARI: 05/31/25 Gestational age: 23 PFSH PFSH Medical History (Updated 02/02/25 @ 23:[address] Magda Aragon MD) POTS (postural orthostatic tachycardia syndrome) Myles-Danlos syndrome Home Medications ?Medication ?Instructions ?Recorded ?Last Taken ?Type aspirin 81 mg capsule 81 mg PO DAILY 02/02/2501/18 History vit no.95-ferrous 1 tab PO DAILY 02/02/2501/18 History fumarate 28 mg-folic acid 800 mcg tablet () Allergy/AdvReac Type Severity Reaction Status Date / Time No Known Allergies Allergy Verified 02/02/25 21:14 Social History Smoking Status: Never smoker History 1 Elective abortions Hx Para 0 Spontaneous abortions Hx # Term Pregnancies Ectopic pregnancies Hx # Pregnancies Multiple births # of living children NST FHR Rate Baby A Baseline: 145 by doppler Uterine Activity:: irritable Assessment & Plan (1) 23 weeks gestation of : (2) [place] Zaragoza' contraction: COMMENT: cervix closed 02/02/25 1193 <Electronically signed by Magda Esparza in > Date _ Magda Aragon MD Cosign Signature (if applicable): Date CC: Dr. Magda Aragon MD; No Primary Care Physician ~ Signed [facility] Work Phone: Reason for referral (narrative)No reason for referral information availableWCincinnati [facility] Work Phone: Chief Complaint and Reason for Visit Chief Complaint Admit Date female pain, December 21, 2024 8: 25pm Chief Complaint Admit Date female pain, December 21, 2024 8: 25pm R/O LABOR February 02, 2025 8:50pm Reason for Visit Admit Date 23 weeks gestation of Septembe r 2024 8:50pm Angel Zaragoza' contraction January 8:50pm Advance Directives No Advanced Directives Records Found Advance Directive Response Recorded Date/ Time Do you have a Healthcare Power of Computer Systems Security Administrator? No December 21, 2024 9:54pm Summary Purpose Family History No Family History Records FoundNo Family History Records FoundNo Family History Records Found Additional Source Comments Source Comments (unrecognize d section and content) In the event this informatio n is protected by the Federal Confidentiality of Alcohol and Drug Abuse Patient Records regulations: The Federal rules restrict any use of the information to criminally investigate or prosecute any alcohol or drug abuse patient.[facility] the event this information is protected by the Federal Confidentiality of Alcohol and Drug Abuse Patient Records regulations: The Federal rules restrict any use of the information to criminally investigate or prosecute any alcohol or drug abuse patient.[facility] the event this information is protected by the Federal Confidentiality of Alcohol and Drug Abuse Patient Records regulations: The Federal rules restrict any use of the information to criminally investigate or prosecute any alcohol or drug abuse patient.[facility] the event this information is protected by the Federal Confidentiality of Alcohol and Drug Abuse Patient Records regulations: The Federal rules restrict any use of the information to criminally investigate or prosecute any alcohol or drug abuse patient.[facility] HospitalIn the event this information is protected by the Federal Confidentiality of Alcohol and Drug Abuse Patient Records regulations: The Federal rules restrict any use of the information to criminally investigate or prosecute any alcohol or drug abuse patient.[facility] HospitalIn the event this information is protected by the Federal Confidentiality of Alcohol and Drug Abuse Patient Records regulations: The Federal rules restrict any use of the information to criminally investigate or prosecute any alcohol or drug abuse patient.[facility] HospitalIn the event this information is protected by the Federal Confidentiality of Alcohol and Drug Abuse Patient Records regulations: The Federal rules restrict any use of the information to criminally investigate or prosecute any alcohol or drug abuse patient.[facility] HospitalIn the event this information is protected by the Federal Confidentiality of Alcohol and Drug Abuse Patient Records regulations: The Federal rules restrict any use of the information to criminally investigate or prosecute any alcohol or drug abuse patient.[facility] HospitalIn the event this information is protected by the Federal Confidentiality of Alcohol and Drug Abuse Patient Records regulations: The Federal rules restrict any use of the information to criminally investigate or prosecute any alcohol or drug abuse patient.[facility] HospitalIn the event this information is protected by the Federal Confidentiality of Alcohol and Drug Abuse Patient Records regulations: The Federal rules restrict any use of the information to criminally investigate or prosecute any alcohol or drug abuse patient.[facility] HospitalIn the event this information is protected by the Federal Confidentiality of Alcohol and Drug Abuse Patient Records regulations: The Federal rules restrict any use of the information to criminally investigate or prosecute any alcohol or drug abuse patient.[facility] HospitalIn the event this information is protected by the Federal Confidentiality of Alcohol and Drug Abuse Patient Records regulations: The Federal rules restrict any use of the information to criminally investigate or prosecute any alcohol or drug abuse patient.[facility] HospitalIn the event this information is protected by the Federal Confidentiality of Alcohol and Drug Abuse Patient Records regulations: The Federal rules restrict any use of the information to criminally investigate or prosecute any alcohol or drug abuse patient.[facility] HospitalIn the event this information is protected by the Federal Confidentiality of Alcohol and Drug Abuse Patient Records regulations: The Federal rules restrict any use of the information to criminally investigate or prosecute any alcohol or drug abuse patient.[facility] HospitalIn the event this information is protected by the Federal Confidentiality of Alcohol and Drug Abuse Patient Records regulations: The Federal rules restrict any use of the information to criminally investigate or prosecute any alcohol or drug abuse patient.[facility] HospitalIn the event this information is protected by the Federal Confidentiality of Alcohol and Drug Abuse Patient Records regulations: The Federal rules restrict any use of the information to criminally investigate or prosecute any alcohol or drug abuse patient.[facility] HospitalIn the event this information is protected by the Federal Confidentiality of Alcohol and Drug Abuse Patient Records regulations: The Federal rules restrict any use of the information to criminally investigate or prosecute any alcohol or drug abuse patient.[facility] Reason for Visit (unrecogniz ed section and content) Reason Comments Care Coordination Reason Comments OB Pelvic Pain Reason Comments Received Outside Medical Records Reason Comments Care Reason Comments OB Pain Reason Comments OB Vaginal Pressure Reason Onset Date Comments Care 01/11/2025 Reason Comments US Specialty Diagnoses / Procedures Referred By Juan Antonio rich [facility] Diagnoses Visit for screening (HCC) Procedures OBSTETRIC ULTRASOUND WHI US PREG UTERUS AFTER 1ST TRIMEST GESTATION Lynnette Tapia APRN.[facility] [address] [place] [address] Phone: tel: fax: [facility] [address] [place] [address] Referral ID Status Reason Start Date Expiration Date V isits Requested Visits Authorized [id number] Closed Auto-Generate d Referral 12/29/2024 05/26/2025 1 1 Reason Comments Appointment Reason Comments Orders Reason Onset Date Comments Care 01/20/2025 Reason Comments Breast Pump Reason Comments Low back aching/cramping pelvic region Care Teams (unrecognized sec tion and content) Team Status: Active Member Role/Relationship Status Dates No Primary Care Physician Primary Care Provider Active Team Status: Inactive Member Role/Relationship Status Dates Dr. Aftab Mendoza DO Emergency Provider Active Start: December 21, 2024 End: December 22, 2024 No Primary Care Physician Primary Care Provider Active Start: December 21, 2024 End: December 22, 2024 Team Status: Inactive Member Role/Relationship Status Dates Dr. Aftab Mendoza DO Attending Provider Active Start: December 21, 2024 End: December 22, 2024 Dr. Aftab Mendoza DO Emergency Provider Active Start: December 21, 2024 End: December 22, 2024 No Primary Care Physician Primary Care Provider Active Start: December 21, 2024 End: December 22, 2024 Team Status: Inactive Member Role/Relationship Status Dates No Primary Care Physician Primary Care Provider Active Start: February 02, 2025 End: February 02, 2025 Dr. Magda Aragon MD Attending Provider Active Start: February 02, 2025 End: February 02, 2025 Dr. Madga Aragon MD Referring Provider Active Start: February 02, 2025 End: February 02, 2025 Goals (unrecognized section and content) Goals may be documented in a n alternate sectionGoals may be documented in an alternate section INFORMATION SOURCE (unrecogn ized section and content) DATE CREATED AUTHOR 01/01/2025 [facility] DATE CREATED AUTHOR AUTHOR'S ORGANIZ ATION 01/22/2025 [facility] DATE CREATED AUTHOR AUTHOR'S ORGANIZ ATION 02/04/2025 [facility] FOR RECORDS PERTAINING TO PATIENTS WHO ARE OR HAVE BEEN ENROLLED IN A CHEMICAL DEPENDENCY/SUBSTANCEABUSE PROGRAM, SOME INFORMATION MAY BE OMITTED. This clinical summary was aggregated from multiple sources. Caution should be exercised in using it in the provision of clinical care. This summary normalizes information from multiple sources, and as a consequence, information in this document may materially change the coding, format and clinical context of patient data. In addition, data may be omitted in some cases. CLINICAL DECISIONS SHOULD BE BASED ON THE PRIMARY CLINICAL RECORDS. [employer] provides no warranty or guarantee of the accuracy or completeness of information in this document.
[2025-02-04 22:23] VITALS: BMI 27.2
[2025-02-04 22:37] VITALS: BP 129/84; PULSE 92; RESP 16; TEMP 37.4
[2025-02-04 23:02] LABS: Color, Urine Yellow (Yellow); Glucose, Dipstick Normal (Normal); Ketone-Dipstick Negative (Negative); Leukocyte Esterase-Dipstick 25 /ul (Negative); Nitrite-Dipstick Negative (Negative); Occult Blood-Urine Negative /ul (Negative); Protein-Dipstick Negative (Negative); Specific Gravity, Urine 1.015 (1.002-1.030); Urine Bilirubin Dipstick Negative (Negative)
--- NOTE | 2025-02-04 23:55 | OB.TRI.NOTE ---
[facility] Date of Service: 02/04/25 Chief Complaint: ctx's HPI Narrative JOSE NICHOLAS, is a 19 F who presents ctx's. She states she has had contractions and abdominal pain for 1-2 weeks. Went to [facility] 2 weeks ago for this and had a CT scan done showing thickening on bladders suggestive of cystitis and a non obstructing kidney stone. States she was on an antibiotic at that time for UTI. Reports multiple UTI's prior to the as well. She was on antibiotics for a UTI when she found out she was . She has supra pubic pain today, off and on dysuria, and difficulty feeling like she can empty her bladder. Denies fevers, chills, vomiting. Tolerating PO. No vb or lof. No constipation or diarrhea. [facility] Medical History (Updated 02/05/25 @ 00:[address] Holly Corley, DO) POTS (postural orthostatic tachycardia syndrome) Myles-Danlos syndrome Home Medications ?Medication ?Instructions ?Recorded ?Last Taken ?Type aspirin 81 mg capsule 81 mg PO DAILY 02/02/25 02/03/25 20:00 History 81 mg vit no.95-ferrous 1 tab PO DAILY 02/02/25 02/03/25 20:00 History fumarate 28 mg-folic acid 800 mcg 1 TAB tablet () Allergy/AdvReac Type Severity Reaction Status Date / Time No Known Allergies Allergy Verified 02/04/25 22:31 Social History Smoking Status: Never smoker History 1 Elective abortions Hx Para 0 Spontaneous abortions Hx # Term Pregnancies Ectopic pregnancies Hx # Pregnancies Multiple births # of living children Physical Exam Const alert and no apparent distress Constitutional Narrative: Patient is resting comfortably and does not appear to be in pain General Appearance: comfortable GI soft to palpation and non-distended GI Narrative: Non acute. +Supra pubic tenderness Narrative: Cervix closed, thick, high Assessment & Plan (1) 23 weeks gestation of : (2) [place] Zaragoza' contraction: COMMENT: cervix closed PLAN: Cervix is closed thick and long. Patient is comfortable appearing. Do no suspect PTL at this time (3) History of UTI: (4) Suprapubic pain: PLAN: Urine +leuk esterase. Urine cx in process from 2 days ago. Will start Macrobid tonight and follow up on urine cx (5) Dysuria:
[2025-02-05 15:10] VITALS: PULSE 95; RESP 16; TEMP 37.2; O2SAT 96
[2025-02-05 15:11] VITALS: BP 131/81; PULSE 86
[2025-02-05 15:26] VITALS: BP 124/78; PULSE 80
--- NOTE | 2025-02-05 17:42 | OB.TRI.NOTE ---
HPI - General General Chief Complaint: ctx's HPI Narrative JOSE NICHOLAS, is a 19 F at 23 weeks gestation who presents back to triage for cramping. Seen and evaluated last night in triage and started on Macrobid 100 mg PO BID for UTI. Maternal Data Information AMARI Calculator Estimated Delivery Date Method Current WG Current Estimate 05/31/25 Manual 23w 4d PFSH PFSH Medical History (Updated 02/05/25 @ 00:[address] Holly Corley, DO) POTS (postural orthostatic tachycardia syndrome) Myles-Danlos syndrome Home Medications ?Medication ?Instructions ?Recorded ?Last Taken ?Type aspirin 81 mg capsule 81 mg PO DAILY 02/02/25 02/03/25 20:00 History 81 mg vit no.95-ferrous 1 tab PO DAILY 02/02/25 02/03/25 20:00 History fumarate 28 mg-folic acid 800 mcg 1 TAB tablet () nitrofurantoin 100 mg PO BID 7 days #13 caps 02/05/25 Unknown Rx monohydrate/macrocrystals 100 mg capsule (Macrobid) Allergy/AdvReac Type Severity Reaction Status Date / Time No Known Allergies Allergy Verified 02/05/25 15:30 Social History Smoking Status: Never smoker History 1 Elective abortions Hx Para 0 Spontaneous abortions Hx # Term Pregnancies Ectopic pregnancies Hx # Pregnancies Multiple births # of living children Assessment & Plan (1) Dysuria: (2) Suprapubic pain: (3) History of UTI: (4) [place] Zaragoza' contraction: COMMENT: cervix closed (5) 23 weeks gestation of : PLAN: Plan Positive movements Increase fluids CE - closed/ unchanged Continue taking Macrobid 100 mg Po BID- did not take dose today D/C home with follow up in office
== END 2025-02-05 00:30 | disposition home or self-care (01) ==
LOC: WPOUT 22:17 → WP 02-05 00:04
PROVIDERS: Referring Provider Obstetrics & Gynecology; Visit Provider Advanced Practice Midwife
DX: O47.02 False labor before 37 completed weeks of gestation, second trimester (principal); R30.0 Dysuria; Z3A.23 23 weeks gestation of pregnancy; R10.2 Pelvic and perineal pain; O99.891 Other specified diseases and conditions complicating pregnancy; Z87.440 Personal history of urinary (tract) infections
CPT/HCPCS: 59025; 59050; 76815; 81002; 87086; 99221; G0378

== ENCOUNTER 2025-02-13 21:49 | Outpatient (CLI) | payer BC, SELFPAY ==
[2025-02-13 21:53] VITALS: BMI 27.7
[2025-02-13 21:57] VITALS: BP 143/85; PULSE 107
[2025-02-13 22:07] VITALS: RESP 16; TEMP 37
--- OUTSIDE RECORDS SUMMARY | 2025-02-13 22:12 | XMS RPT_ITS | CCD ---
Author Organization [facility] Care Team Providers Care Lace Winder Name Role Phone Unavailable Primary Care Provider Unavaildwayne e Dr. Aftab Mendoza DO Emergency Provider [phone] Care Physician, No Primary Primary Care Provider Unavailable MARK FOREMAN Attending Unavailable MARK FOREMAN Admitting Unavailable NUZHAT ZAMORANO Attending Unavailable NUZHAT ZAMORANO Admitting Unavailable MARIANNE, NUZHAT DARWIN Admitting Unavailable NUZHAT ZAMORANO Attending Unavailable ALEXA DICKSON Attending Unavailable ALEXA DICKSON Admitting Unavailable Dr. Aftab Mendoza DO Attending Provider Dr. Magda Aragon MD Attending Provider [phone] Dr. Magda Aragon MD Referring Provider Dr. Ramakrishna Corley DO Attending Provider Dr. Ramakrishna Corley DO Referring Provider Lynnette Tapia CNM Attending Provider Care Physician, No Primary Primary Care Unava ilable Ramakrishna Corley Referring Unavailable Lynnette Tapia Attending Unavailable Care Physician, No Primary Primary Care Unava ilable Magda Aragon Referring Unavailable Magda Aragon Attending Unavailable Aftab Mendoza Attending Unavailable Care Physician, No Primary Primary Care Unava ilable RAMAKRISHNA CORLEY Referring Unavailable LYNNETTE TAPIA Attending Unavailable KARINA SALDAÑA Attending Unavail able LYNNETTE TAPIA Attending Unavailable LYNNETTE TAPIA Referring Unavailable RAMAKRISHNA CORLEY Attending Unavailable LYNNETTE TAPIA Referring Unavailable LYNNETTE TAPIA Attending Unavailable LESTER PHILLIPS Attending Unavailable Medications Current Medications Medication Drug Class(es) Dates Sig (Normalized) Sig (Original) aspirin 81 mg oral tablet (19 sources) Platelet Aggregation Inhibitor, Nonsteroidal Anti-inflammatory Drug Start: 02-02-2025 take 1 capsule by mouth once daily Aspirin 81 mg capsule Active 81 mg PO DAILY February 02, 2025 12:00am Start: 12-28-2024 take 1 tablet by karl once daily aspirin, enteric coated (ECOTRIN LOW STRENGTH) 81 mg EC tablet Indications: Visit for screening ([facility]) Take 1 tablet by mouth once daily. 90 tablet 3 12/28/2024 Active doxylamine succinate 25 mg oral tablet (16 sources) take 25 mg by mouth once daily doxylamine succinate (UNISOM, DOXYLAMINE, PO) Take 25 mg by mouth once daily. Active loperamide hydrochloride 2 mg oral capsule (3 sources) Opioid Agonist Start: End: take 1 capsule by mouth every six hours as needed loperamide (IMODIUM A-D) 2 mg cap(s) Take 1 capsule by mouth four times a day as needed for up to 5 days. 20 capsule 01/05/2025 01/10/2025 Active metroNIDAZOLE 500 mg oral tablet (2 sources) Nitroimidazole Antimicrobial Start: End: take 1 tablet by mouth twice daily metroNIDAZOLE (FLAGYL) 500 mg tablet Take 1 tablet by mouth two times a day for 7 days. 14 tablet 12/22/2024 12/29/2024 Active nitrofurantoin, macrocrystals 25 mg / nitrofurantoin, monohydrate 75 mg oral capsule (7 sources) Nitrofuran Antibacterial Start: take 1 capsule by mouth twice daily at mealtime Nitrofurantoin Monohyd/M-Cryst (Macrobid) 100 mg capsule Active 100 mg PO TWICE A DAY 13 7 0 February 05, 2025 12:00am must administer with a meal/food Start: 01-14-2025 End: 01-21-2025 take 1 capsule by mouth twice daily nitrofurantoin monohydrate and macrocrystal (MACROBID) 100 mg capsule Indications: Dysuria Take 1 capsule by mouth two times a day for 7 days. 14 capsule 01/14/2025 01/21/2025 Active Start: 12-03-2024 take 1 capsule by [facility] every twelve hours nitrofurantoin monohydrate and macrocrystal (MACROBID) 100 mg capsule Take 1 capsule every 12 hours by oral route for 7 days. 12/03/2024 Active Pnv No.95-Ferrous Fumarate-Fa () 28 mg iron- 800 mcg tablet (3 sources) Start: 02-02-2025 Pnv No.95-Ferr ous Fumarate-Fa () 28 mg iron- 800 mcg [...] 01/05/2025 01/07/2025 Active vit 75/iron/folic/om3 (DAILY ORAL) (16 sources) vit 75/iron/folic/om3 (DAILY ORAL) Take by mouth. Active pyridoxine hydrochloride 25 mg oral tablet (16 sources) take 1 tablet by mouth once daily pyridoxine, vitamin B6, (VITAMIN B-6) 25 mg tablet Take 25 mg by mouth once daily. Active Completed/Discontinued Medications Medication Drug Class(es) Dates Sig (Normalized) Sig (Original) cyclobenzaprine hydrochloride 10 mg oral tablet (17 sources) Muscle Relaxant Start: 12-22-2024 End: 02-08-2025 take 1 tablet by mouth every eight hours as needed cyclobenzaprine (FLEXERIL) 10 mg tablet Take 1 tablet by mouth three times a day as needed. 10 tablet 12/22/2024 02/08/2025 Discontinued (Discontinued by Patient) Problems Active Problems Problem Classification Problem Date Documented Da te Episodic/Chronic Abdominal pain (6 sources) Suprapubic pain; Translations: [Pelvic and perineal pain] Onset: 01-18-2025 02-05-2025 Episodic Bacterial infection; unspecified site (1 source) Other specified bacterial agents as the cause of diseases classified elsewhere; Translations: [Bacterial vaginosis] Onset: 12-28-2024 Episodic Cardiac dysrhythmias (18 sources) Postural orthostatic tachycardia syndrome ; Translations: [POTS (postural orthostatic tachycardia syndrome)] 12-28-2024 Chronic Cardiac dysrhythmias (2 sources) Palpitations; Translations: [Palpitations] Onset: 01-12-2025 01-11-2025 Episodic Conditions associated with dizziness or vertigo (15 sources) Dizziness; Translations: [Dizziness and giddiness] Onset: 01-05-2025 01-05-2025 Episodic Early or threatened labor (9 sources) [place] contractions; Translations: [False labor, unspecified] Onset: 02-05-2025 02-02-2025 Episodic Comment on above: cervix closed Fluid and electrolyte disorders (19 sources) Dehydration; Translations: [Dehydration] Onset: 01-05-2025 12-21-2024 Episodic Genitourinary symptoms and ill-defined conditions (13 sources) Scalding pain on urination ; Translations: [Dysuria] Onset: 12-30-2024 01-11-2025 Episodic Headache; including migraine (15 sources) Headache; Translations: [Headache] Onset: 01-05-2025 01-05-2025 Episodic Hypertension complicating ; childbirth and the puerperium (14 sources) Chronic hypertension complicating AND/OR reason for care during ; Translations: [Unspecified pre-existing hypertension complicating , unspecified trimester] Onset: 01-06-2025 01-06-2025 Chronic Immunizations and screening for infectious disease (4 sources) Patient encounter status; Translations: [Encounter for screening for infections with a predominantly sexual mode of transmission] 12-28-2024 Episodic Inflammatory diseases of female pelvic organs (20 sources) Bacterial vaginosis; Translations: [Acute vaginitis] Onset: 12-22-2024 12-22-2024 Episodic Malaise and fatigue (4 sources) Fatigue; Translations: [Other fatigue] Onset: 01-12-2025 01-11-2025 Episodic Other circulatory disease (1 source) Postural orthostatic tachycardia syndrome 12-28-2024 Episodic Other complications of (4 sources) Complication of , childbirth and/or the puerperium; Translations: [Other specified related conditions, unspecified trimester] 12-21-2024 Episodic Other complications of (20 sources) Abdominal pain in ; Translations: [Other specified related conditions, second trimester] Onset: 12-22-2024 12-22-2024 Episodic Other complications of (17 sources) High risk ; Translations: [Supervision of high risk , unspecified, second trimester] Onset: 12-28-2024 12-28-2024 Episodic Other complications of (13 sources) Chest pain; Translations: [Chest pain during ] Onset: 01-06-2025 01-06-2025 Episodic Other complications of (16 sources) Vaginal discharge; Translations: [Other specified related conditions, unspecified trimester] Onset: 01-06-2025 01-06-2025 Episodic Other complications of (13 sources) Pain in female pelvis; Translations: [Other [...] (HCC)] Onset: 12-28-2024 Episodic Other congenital anomalies (18 sources) Myles-Danlos syndrome; 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, 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-2024 Chronic Other female genital disorders (2 sources) Other specified noninflammatory disorders of vagina; Translations: [Vaginal discharge during , antepartum (HCC)] Onset: 01-06-2025 Episodic Other gastrointestinal disorders (15 sources) Diarrhea; Translations: [Diarrhea, unspecified] Onset: 01-05-2025 01-05-2025 Episodic Other and delivery including normal (8 sources) ; Translations: [Encounter for supervision of normal , unspecified, unspecified trimester] Onset: 01-20-2025 12-21-2024 Episodic Other screening for suspected conditions (not mental disorders or infectious disease) (2 sources) Encounter for screening for diabetes mellitus; Translations: [Encounter for screening, unspecified] Onset: 12-28-2024 Episodic Residual codes; unclassified (2 sources) Gestation period, 18 weeks; Translations: [18 weeks gestation of ] 12-28-2024 Episodic Residual codes; unclassified (17 sources) Carrier of cystic fibrosis gene mutation; Translations: [Cystic fibrosis carrier] Onset: 12-28-2024 12-28-2024 Episodic Residual codes; unclassified (1 source) Gestation period, 20 weeks; Translations: [20 weeks gestation of ] 01-11-2025 Episodic Residual codes; unclassified (9 sources) Gestation period, 21 weeks; Translations: [21 weeks gestation of ] Onset: 01-18-2025 01-18-2025 Episodic Residual codes; unclassified (8 sources) Gestation period, 23 weeks; Translations: [23 weeks gestation of ] 02-02-2025 Episodic Residual codes; unclassified (1 source) 23 weeks gestation of ; Translations: [23 weeks gestation of ] Onset: 02-05-2025 Episodic Residual codes; unclassified (1 source) Gestation period, 24 weeks; Translations: [24 weeks gestation of ] 02-08-2025 Episodic Residual codes; unclassified (1 source) 24 weeks gestation of ; Translations: [24 weeks gestation of (HCC)] Onset: 02-08-2025 Episodic Residual codes; unclassified (1 source) 21 weeks gestation of ; Translations: [21 weeks gestation of (HCC)] Onset: 01-18-2025 Episodic Residual codes; unclassified (1 source) 20 weeks gestation of ; Translations: [20 weeks gestation of (HCC)] Onset: 01-11-2025 Episodic Residual codes; unclassified (1 source) 18 weeks gestation of ; Translations: [18 weeks gestation of (HCC)] Onset: 12-30-2024 Episodic Residual codes; unclassified (1 source) Cystic fibrosis carrier; Translations: [Cystic fibrosis carrier] Onset: 12-28-2024 Episodic Unclassified (2 sources) Patient encounter status 12-28-2024 Unclassified (16 sources) [facility] - COMMON Onset: 12-28-2024 12-28-2024 Unclassified (16 sources) Education - [place] Onset: 12-28-2024 12-28-2024 Unclassified (1 source) Other [...] Documented Da te Episodic/Chronic Residual codes; unclassified (13 sources) Gestation period, 19 weeks; Translations: [19 weeks gestation of ] Onset: 01-06-2025 Resolved: 01-13-2025 01-06-2025 Episodic Results Test Name Value Interpretation Reference Range Facility BACTERIAL VAGINOSIS NAATon 0 02-08-2025 Interpretation and review of laboratory results Normal [facility] Lactobacillus crispatus+gasseri+muniz ii + Gardnerella vaginalis + Atopobium vaginae rRNA JOHN+probe Ql (Vag fld) Not detected Not detected [facility] Lactobacillus crispatus+gasseri+muniz ii + Gardnerella vaginalis + Atopobium vaginae rRNA JOHN+probe Ql (Vag fld) Not detected Normal Not detected [facility] Comment on above: Order Comment: Speci men Type: SWABOrdering Facility: [facility] Address: [address] [place] [address] Performed By: #### B VAMP, CVTV ####[facility] LABCLIA [id number] [place] [address] [place] Bacteria Ur Culton Bacteria identified Cx Nom (U) CULTURE, URINE: No growth (<1,000 CFU/ml) Normal [facility] Comment on above: Performed By: #### 6 30-4 ####[facility] LABCLIA [id number] [place] [address] [place] PARVEEN/TRICHOMONAS NAATon 0 02-08-2025 C. glabrata RNA JOHN+probe Ql (Vag fld) Not detected Not detected [facility] Parveen sp DNA JOHN+probe Ql (Vag fld) Not detected Not detected [facility] Comment on above: The Parveen species group target includes C. albicans, C. tropicalis, C. parapsilosis, and C. dubliniensis. Interpretation and review of laboratory results Normal [facility] T. vaginalis DNA JOHN+probe Ql (Unsp spec) Not detected Not detected [facility] C. glabrata RNA JOHN+probe Ql (Vag fld) Not detected Normal Not detected [facility] Comment on above: Order Comment: Speci men Type: SWABOrdering Facility: [facility] Address: [address] [place] [address] Performed By: #### B VAMP, CVTV ####[facility] LABCLIA [id number] [place] [address] [place] Parveen sp DNA JOHN+probe Ql (Vag fld) Not detected Normal Not detected [facility] Comment on above: Order Comment: Speci men Type: SWABOrdering Facility: [facility] Address: [address] [place] [address] Result Comment: The Parveen species group target includes C. albicans, C. tropicalis, C. parapsilosis, and C. dubliniensis. Performed By: #### B VAMP, CVTV ####[facility] LABCLIA [id number] [place] [address] [place] T. vaginalis DNA JOHN+probe Ql (Unsp spec) Not detected Normal Not detected [facility] Comment on above: Order Comment: Speci men Type: SWABOrdering Facility: [facility] Address: [address] [place] [address] Performed By: #### B VAMP, CVTV ####[facility] LABCLIA [id number] [place] [address] [place] UA DIP, URINE (POC)on 2024 BILIRUBIN UA (POCT) Negative Negative [facility] CLARITY UA (POCT) Clear [facility] COLOR UA (POCT) Yellow [facility] GLUCOSE UA (POCT) Negative Negative mg/dL [facility] Hemoglobin Ql (U) Negative Negative [facility] KETONE UA (POCT) Negative Negative mg/dL [facility] LEUKOCYTES UA (POCT) Negative Negative [facility] NITRITE UA (POCT) Negative Negative [facility] PH UA (POCT) 7.0 4.5 - 8.0 [facility] Protein Ql (U) Negative Negative mg/dL [facility] SPECIFIC GRAVITY UA (POCT) 1.010 1.005 - 1.030 [facility] UROBILINOGEN UA (POCT) 0.2 Jazmine l E.U./dL [facility] Location:[facility], [address], [place], [address] [facility] POINT OF CARE [facility] Urine Cultureon 02-06-2025 URC Culture exhibits no growth. Normal [facility] Comment on above: Performed By: #### M 100.2200 #### [facility] [address] [place], [address] CNPNon 02-05-2025 CNPN Telephone (OBGYWM) PAL NICHOLAS ([id number]) 3 F Date Time Provider Department 02/05/25 LYNNETTE TAPIA OBLUKE During your visit today, we recorded the following information about you: Jocelyne Black RN 02/05/2025 2:19 PM Signed Patient 23w4d calling stating she is having contractions every 5-7 minutes and lasting around a minute. Patient states when she is walking around contractions increase in pain. Patient states she hasn't felt the baby move and previously baby was active. Denies any bleeding or leaking of fluid. Patient advised to go to [facility] for evaluation. [facility]. Jocelyne Black RN Allergies As of Date: 02/05/2025 (No Known Allergies) Date Reviewed: 02/02/2025 Reviewed by: Dee Valdez MA - Fully Assessed Reason for Visit: Contractions [1575] Prescriptions as of 02/05/2025 - aspirin, enteric coated (ECOTRIN LOW STRENGTH) [...] as needed. Problem List As Of Date 02/05/2025 Noted Resolved Bacterial vaginosis [N76.0, B96.89] 12/22/2024 [...] 01/18/2025 Encounter Status:Closed by JOCELYNE BLACK on 02/05/25 Normal [facility] OB Triage Physician Noteon 0 02-05-2025 OB Triage Physician Note [facility] Medical Records Department [address] [place] [address] OB Triage Physician Note 02/05/25 [id number] MR#: [id number] Acct: [id number] Name: PAL NICHOLAS Rep #: [id number] : 2005 19 From: Lynnette Tapia CNM PCP: Care Physician,No Primary Status:REG CLI Y Location: [address] HPI - General General Chief Complaint: ctx's HPI Narrative PAL NICHOLAS, is a 19 F at 23 weeks gestation who presents back to triage for cramping. Seen and evaluated last night in triage and started on Macrobid 100 mg PO BID for UTI. Maternal Data Information AMARI Calculator Estimated Delivery Date Method Current WG Current Estimate 05/31/25 Manual 23w 4d PFSH PFSH Medical History (Updated 02/05/25 @ 00:[address] Ramarkishna Corley, ) POTS (postural orthostatic tachycardia syndrome) Myles-Danlos syndrome Home Medications ???Medication ???Instructions ???Recorded ???Last Taken ???Type aspirin 81 mg capsule 81 mg PO DAILY 02/02/25 02/03/25 2 0:00 History 81 mg vit no.95-ferrous 1 tab PO DAILY 02/02/25 02/03/25 2 0:00 History fumarate 28 mg-folic acid 800 mcg 1 TAB tablet () nitrofurantoin 100 mg PO BID 7 days #13 caps 01/25 07/21 Unknown Rx monohydrate/macrocry stals 100 mg capsule (Macrobid) Allergy/AdvReac Type Severity Reaction Status Date / Time No Known Allergies Allergy Verified 02/05/25 15:30 Social History Smoking Status: Never smoker History 1 Elective abortions Hx Para 0 Spontaneous abortions Hx # Term Pregnancies Ectopic pregnancies Hx # Pregnancies Multiple births # of living children Assessment Plan (1) Dysuria: (2) Suprapubic pain: (3) History of UTI: (4) Angel Zaragoza' contraction: COMMENT: cervix closed (5) 23 weeks gestation of : PLAN: Plan Positive movements Increase fluids CE - closed/ unchanged Continue taking Macrobid 100 mg Po BID- did not take dose today D/C home with follow up in office 02/05/25 7448 Date Lynnette Plotts CNM Cosigner Signature (if applicable): Date _ CC: CNM Lynnette Plotts; No Primary Care Physician Signed Normal [facility] Bilirubin Test strip Ql (U)O rdered By: Ramakrishna Corley on 02-04-2025 Bilirubin Ql (U) Negative Negative [facility] Ketones Test strip Ql (U)Ord ered By: Ramakrishna Corley on 02-04-2025 Ketones Ql (U) Negative Negative [facility] Nitrite Test strip Ql (U)Ord ered By: Ramakrishna Corley on 02-04-2025 Nitrite Ql (U) Negative Negative [facility] OB Triage Physician Noteon 0 02-04-2025 OB Triage Physician Note [facility] Medical Records Department [address] [place] [address] OB Triage Physician Note 02/04/25 2355 MR#: [id number] Acct: [id number] Name: PAL NICHOLAS Rep #: [id number] : 2005 19 From: Ramakrishna Corley DO PCP: Care Physician,No Primary Status:REG CLI Y Location: [address] General Date of Service: 02/04/25 Chief Complaint: ctx's HPI Narrative PAL NICHOLAS, is a 19 F who presents ctx's. She states she has had contractions and abdominal pain for 1-2 weeks. Went to [facility] 2 weeks ago for this and had a CT scan done showing thickening on bladders suggestive of cystitis and a non obstructing kidney stone. States she was on an antibiotic at that time for UTI. Reports multiple UTI's prior to the as well. She was on antibiotics for a UTI when she found out she was . She has supra pubic pain today, off and on dysuria, and difficulty feeling like she can empty her bladder. Denies fevers, chills, vomiting. Tolerating PO. No vb or lof. No constipation or diarrhea. [facility] Medical History (Updated 02/05/25 @ 00:[address] Ramakrishna Corley, ) POTS (postural orthostatic tachycardia syndrome) Myles-Danlos syndrome Home Medications ???Medication ???Instructions ???Recorded ???Last Taken ???Type aspirin 81 mg capsule 81 mg PO DAILY 02/02/25 02/03/25 2 0:00 History 81 mg vit no.95-ferrous 1 tab PO DAILY 02/02/25 02/03/25 2 0:00 History fumarate 28 mg-folic acid 800 mcg 1 TAB tablet () Allergy/AdvReac Type Severity Reaction Status Date / Time No Known Allergies Allergy Verified 02/04/25 22:31 Social History Smoking Status: Never smoker History 1 Elective abortions Hx Para 0 Spontaneous abortions Hx # Term Pregnancies Ectopic pregnancies Hx # Pregnancies Multiple births # of living children Physical Exam Const alert and no apparent distress Constitutional Narrative: Patient is resting comfortably and does not appear to be in pain General Appearance: comfortable GI soft to palpation and non-distended GI Narrative: Non acute. +Supra pubic tenderness Narrative: Cervix closed, thick, high Assessment Plan (1) 23 weeks gestation of : (2) [place] Zar[place]' contraction: COMMENT: cervix closed PLAN: Cervix is closed thick and long. Patient is comfortable appearing. Do no suspect PTL at this time (3) History of UTI: (4) Suprapubic pain: PLAN: Urine +leuk esterase. Urine cx in process from 2 days ago. Will start Macrobid tonight and follow up on urine cx (5) Dysuria: 02/05/25 0003 Date Ramakrishna Corley DO Cosigner Signature (if applicable): Date _ CC: Dr. Ramakrishna Wiswell, DO; No Primary Care Physician Signed Normal [facility] Protein Test strip Ql (U)Ord ered By: Ramakrishna Corley on 02-04-2025 Protein Ql (U) Negative Negative [facility] Urinalysis, Routine (Dipstic k)on 02-04-2025 BILIRUBIN URINE Negative Normal Negative [facility] Comment on above: Order Comment: CLEAN CATCH Performed By: #### L 400.2010 #### [facility] [address] [place], [address] Clarity (U) Clear Normal Clear [facility] Comment on above: Order Comment: CLEAN CATCH Performed By: #### L 400.2010 #### [facility] [address] [place], [address] Color (U) Yellow Normal Yellow [facility] Comment on above: Order Comment: CLEAN CATCH Performed By: #### L 400.2010 #### [facility] [address] [place], [address] GLUCOSE, UR Normal Normal Normal [facility] Comment on above: Order Comment: CLEAN CATCH Performed By: #### L 400.2010 #### [facility] [address] [place], [address] KETONE UR Negative Normal Negative [facility] Comment on above: Order Comment: CLEAN CATCH Performed By: #### L 400.2010 #### [facility] [address] [place], [address] LEUK ESTERASE 25 /ul Abnormal Negative [facility] Comment on above: Order Comment: CLEAN CATCH Performed By: #### L 400.2010 #### [facility] [address] [place], [address] Nitrite Ql (U) Negative Normal Negative [facility] Comment on above: Order Comment: CLEAN CATCH Performed By: #### L 400.2010 #### [facility] [address] [place], [address] OCCULT BLOOD-UR Negative Normal Negative [facility] Comment on above: Order Comment: CLEAN CATCH Performed By: #### L 400.2010 #### [facility] [address] [place], [address] pH UR 6.5 Normal 5.0 - 8.0 [facility] Comment on above: Order Comment: CLEAN CATCH Performed By: #### L 400.2010 #### [facility] [address] [place], [address] PROT DIPSTX Negative Normal Negative [facility] Comment on above: Order Comment: CLEAN CATCH Performed By: #### L 400.2010 #### [facility] [address] [place], [address] SP.GR. DIPSTX 1.015 Normal 1.002-1.030 [facility] Comment on above: Order Comment: CLEAN CATCH Performed By: #### L 400.2010 #### [facility] [address] [place], [address] UROBILI Normal Normal Normal [facility] Comment on above: Order Comment: CLEAN CATCH Performed By: #### L 400.2010 #### [facility] [address] [place], [address] Urine Cultureon 02-04-2025 URC Culture exhibits no growth. Normal [facility] Comment on above: Performed By: #### M 100.2200 #### [facility] [address] [place], [address] Urine clarityOrdered By: Benjamin Corley on 02-04-2025 Clarity (U) Clear Clear [facility] Urine color determinationOrd ered By: Ramakrishna Corley on 02-04-2025 Color (U) Yellow Yellow [facility] Urine glucose detectionOrder ed By: Ramakrishna Corley on 02-04-2025 Glucose Ql (U) Normal mg/dl Normal [facility] Urine leukocyte esterase det ection by dipstickOrdered By: Ramakrishna Corley on 02-04-2025 Leukocyte esterase Test strip Ql (U) 25 /ul High Negative [facility] Urine pHOrdered By: Ramakrishna mcpherson on 02-04-2025 pH (U) 6.5 [pH] 5.0 - 8.0 [facility] Urine specific gravity measu rementOrdered By: Ramakrishna Corley on 02-04-2025 Specific gravity (U) [Rel density] 1.015 1.002-1.030 [facility] Urine urobilinogen measureme ntOrdered By: Ramakrishna Corley on 02-04-2025 Urobilinogen Ql (U) Normal mg/dl Normal [facility] Bilirubin Test strip Ql (U)O rdered By: Magda Aragon on 02-02-2025 Bilirubin Ql (U) Negative Negative [facility] Ketones Test strip Ql (U)Ord ered By: Magda Aragon on 02-02-2025 Ketones Ql (U) Negative Negative [facility] Microscopic analysis of urin e for red blood cells (RBC)Ordered By: Magda Aragon on 02-02-2025 Microscopic analysis of urine for red blood cells (RBC) 0 SEEN /hpf 0-5 [facility] Mucus LM Ql (Urine sed)Order ed By: Magda Aragon on 02-02-2025 Mucus Ql (Urine sed) 0 SEEN /hpf [facility] Nitrite Test strip Ql (U)Ord ered By: Magda Aragon on 02-02-2025 Nitrite Ql (U) Negative Negative [facility] OB Triage Physician Noteon 0 02-02-2025 OB Triage Physician Note [facility] Medical Records Department [address] [place] [address] OB Triage Physician Note 02/02/25 2336 MR#: [id number] Acct: [id number] Name: PAL NICHOLAS Rep #: [id number] : 2005 19 From: Magda Aragon MD PCP: Care Physician,No Primary Status:REG CLI Y Location: [place] [address] HPI - General General Date of Admission: 02/02/25 Date of Service: 02/02/25 Chief Complaint: cramping HPI Narrative PAL NICHOLAS, is a 19 F who presents cramping. No bleeding. Some movement. Was seen in office today with normal discharge. Maternal Data Information Final AMARI: 05/31/25 Gestational age: 22 PFSH PFS Medical History (Updated 02/02/25 @ 23:[address] Magda Aragon MD) POTS (postural orthostatic tachycardia syndrome) Myles-Danlos syndrome Home Medications ???Medication ???Instructions ???Recorded ???Last Taken ???Type aspirin 81 mg capsule 81 mg PO DAILY 02/02/25 02/01/25 H istory vit no.95-ferrous 1 tab PO DAILY 02/02/25 02/01/25 H istory fumarate 28 mg-folic acid 800 mcg tablet [...] 145 by doppler Uterine Activity:: irritable Assessment Plan (1) 23 weeks gestation of : (2) Angel Zaragoza' contraction: COMMENT: cervix closed 02/02/25 1368 Date Magda Aragon MD Cosigner Signature (if applicable): Date _ CC: Dr. Magda Aragon MD; No Primary Care Physician Signed Normal [facility] Protein Test strip Ql (U)Ord ered By: Magda Aragon on 02-02-2025 Protein Ql (U) 15 mg/dl High Negative [facility] Squamous epithelial cells de tection in urine sediment by light microscopyOrdered By: Magda Aragon on 02-02-2025 Epithelial cells.squamous LM Ql (Urine sed) 0-5 SEEN /hpf 5-10 [facility] UA DIP, URINE (POC)on 2024 BILIRUBIN UA (POCT) Negative Negative [facility] CLARITY UA (POCT) Clear [facility] COLOR UA (POCT) Yellow [facility] GLUCOSE UA (POCT) Negative Negative mg/dL [facility] Hemoglobin Ql (U) Negative Negative [facility] KETONE UA (POCT) Negative Negative mg/dL [facility] LEUKOCYTES UA (POCT) Negative Negative [facility] NITRITE UA (POCT) Negative Negative [facility] PH UA (POCT) 7.0 4.5 - 8.0 [facility] Protein Ql (U) Negative Negative mg/dL [facility] SPECIFIC GRAVITY UA (POCT) 1.010 1.005 - 1.030 [facility] UROBILINOGEN UA (POCT) 0.2 Jazmine l E.U./dL [facility] Location:[facility], [address], [place], [place], [id number] [place] [address] POINT OF CARE [facility] Urinalysis, Completeon 02-02 EPI,SQUAMOUS 0-5 SEEN Normal 5-10 [facility] Comment on above: Order Comment: CLEAN CATCH Performed By: #### L 400.0001 #### [facility] [address] [place], [address] BACTERIA 0 SEEN Normal None Seen [facility] Comment on above: Order Comment: CLEAN CATCH Performed By: #### L 400.0001 #### [facility] [address] [place], [address] Mucus Ql (Urine sed) 0 SEEN Normal [facility] Comment on above: Order Comment: CLEAN CATCH Performed By: #### L 400.0001 #### [facility] [address] [facility] [place], [address] RBC 0 SEEN Normal 0-5 [facility] Comment on above: Order Comment: CLEAN CATCH Performed By: #### L 400.0001 #### [facility] [address] [place], [address] WBC 0 SEEN Normal 0-5 [facility] Comment on above: Order Comment: CLEAN CATCH Performed By: #### L 400.0001 #### [facility] [address] [place], [address] BACTERIA Normal None Seen [facility] Comment on above: Order Comment: COLLE CTOR TO SPECIFY Result Comment: Canc elled via OM: Order edited - Discontinuing original order Performed By: #### L 400.0001 #### [facility] [address] [place], [address] BILIRUBIN URINE Normal Negative [facility] Comment on above: Order Comment: COLLE CTOR TO SPECIFY Result Comment: Canc elled via OM: Order edited - Discontinuing original order Performed By: #### L 400.0001 #### [facility] [address] [place], [address] Clarity (U) Normal Clear [facility] Comment on above: Order Comment: COLLE CTOR TO SPECIFY Result Comment: Canc elled via OM: Order edited - Discontinuing original order Performed By: #### L 400.0001 #### [facility] [address] [place], [address] Color (U) Normal Yellow [facility] Comment on above: Order Comment: COLLE CTOR TO SPECIFY Result Comment: Canc elled via OM: Order edited - Discontinuing original order Performed By: #### L 400.0001 #### [facility] [address] [place], [address] EPI,SQUAMOUS Normal 5-10 [facility] Comment on above: Order Comment: COLLE CTOR TO SPECIFY Result Comment: Canc elled via OM: Order edited - Discontinuing original order Performed By: #### L 400.0001 #### [facility] [address] [place], [address] GLUCOSE, UR Normal Normal [facility] Comment on above: Order Comment: COLLE CTOR TO SPECIFY Result Comment: Canc elled via OM: Order edited - Discontinuing original order Performed By: #### L 400.0001 #### [facility] [address] [place], [address] KETONE UR Normal Negative [facility] Comment on above: Order Comment: COLLE CTOR TO SPECIFY Result Comment: Canc elled via OM: Order edited - Discontinuing original order Performed By: #### L 400.0001 #### [facility] [address] [place], [address] LEUK ESTERASE Normal Negative [facility] Comment on above: Order Comment: COLLE CTOR TO SPECIFY Result Comment: Canc elled via OM: Order edited - Discontinuing original order Performed By: #### L 400.0001 #### [facility] [address] [place], [address] Mucus Ql (Urine sed) Normal [facility] Comment on above: Order Comment: COLLE CTOR TO SPECIFY Result Comment: Canc elled via OM: Order edited - Discontinuing original order Performed By: #### L 400.0001 #### [facility] [address] [place], [address] Nitrite Ql (U) Normal Negative [facility] Comment on above: Order Comment: COLLE CTOR TO SPECIFY Result Comment: Canc elled via OM: Order edited - Discontinuing original order Performed By: #### L 400.0001 #### [facility] [address] [place], [address] OCCULT BLOOD-UR Normal Negative [facility] Comment on above: Order Comment: COLLE CTOR TO SPECIFY Result Comment: Canc elled via OM: Order edited - Discontinuing original order Performed By: #### L 400.0001 #### [facility] [address] [place], [address] pH UR Normal 5.0 - 8.0 [facility] Comment on above: Order Comment: COLLE CTOR TO SPECIFY Result Comment: Canc elled via OM: Order edited - Discontinuing original order Performed By: #### L 400.0001 #### [facility] [address] [place], [address] PROT DIPSTX Normal Negative [facility] Comment on above: Order Comment: COLLE CTOR TO SPECIFY Result Comment: Canc elled via OM: Order edited - Discontinuing original order Performed By: #### L 400.0001 #### [facility] [address] [place], [address] RBC Normal 0-5 [facility] Comment on above: Order Comment: COLLE CTOR TO SPECIFY Result Comment: Canc elled via OM: Order edited - Discontinuing original order Performed By: #### L 400.0001 #### [facility] [address] [place], [address] SP.GR. DIPSTX Normal 1.002-1.030 [facility] Comment on above: Order Comment: COLLE CTOR TO SPECIFY Result Comment: Canc elled via OM: Order edited - Discontinuing original order Performed By: #### L 400.0001 #### [facility] [address] [place], [address] UR Preservative Normal [facility] Comment on above: Order Comment: COLLE CTOR TO SPECIFY Result Comment: Canc elled via OM: Order edited - Discontinuing original order Performed By: #### L 400.0001 #### [facility] [address] [place], [address] UROBILI Normal Normal [facility] Comment on above: Order Comment: COLLE CTOR TO SPECIFY Result Comment: Canc elled via OM: Order edited - Discontinuing original order Performed By: #### L 400.0001 #### [facility] [address] [place], [address] WBC Normal 0-5 [facility] Comment on above: Order Comment: COLLE CTOR TO SPECIFY Result Comment: Canc elled via OM: Order edited - Discontinuing original order Performed By: #### L 400.0001 #### [facility] [address] [place], [address] Urine clarityOrdered By: Jazmin Aragon on 02-02-2025 Clarity (U) Clear Clear [facility] Urine color determinationOrd ered By: Magda Aragon on 02-02-2025 Color (U) Straw Yellow [facility] Urine cultureOrdered By: Jazmin Aragon on 02-02-2025 Bacteria identified Cx Nom (U) Culture exhibits no growth. [facility] Urine glucose detectionOrder ed By: Magda Aragon on 02-02-2025 Glucose Ql (U) Normal mg/dl Normal [facility] Urine leukocyte esterase det ection by dipstickOrdered By: Magda Aragon on 02-02-2025 Leukocyte esterase Test strip Ql (U) Negative Negative [facility] Urine pHOrdered By: Magda Aragon on 02-02-2025 pH (U) 7.0 [pH] 5.0 - 8.0 [facility] Urine sediment bacteria coun t by microscopy (number/high power field)Ordered By: Magda Aragon on 02-02-2025 Bacteria LM.HPF (Urine sed) [#/Area] 0 /[HPF] None Seen [facility] Urine specific gravity measu rementOrdered By: Magda Aragon on 02-02-2025 Specific gravity (U) [Rel density] 1.010 1.002-1.030 [facility] Urine urobilinogen measureme ntOrdered By: Magda Aragon on 02-02-2025 Urobilinogen Ql (U) Normal mg/dl Normal [facility] White blood cell countOrdere d By: Magda Aragon on 02-02-2025 White blood cell count 0 SEEN /hpf 0-5 [facility] BACTERIAL VAGINOSIS NAATon 0 01-20-2025 Interpretation and review of laboratory results Normal [facility] Lactobacillus crispatus+gasseri+muniz ii + Gardnerella vaginalis + Atopobium vaginae rRNA JOHN+probe Ql (Vag fld) Not detected Not detected [facility] Lactobacillus crispatus+gasseri+muniz ii + Gardnerella vaginalis + Atopobium vaginae rRNA JOHN+probe Ql (Vag fld) Not detected Normal Not detected [facility] Comment on above: Order Comment: Speci men Type: SWABOrdering Facility: [facility] Address: [address] [place] [address] Performed By: #### B VAMP, CVTV ####[facility] LABCLIA [id number] [address] [place] PARVEEN/TRICHOMONAS NAATon 0 01-20-2025 C. glabrata RNA JOHN+probe Ql (Vag fld) Not detected Not detected [facility] Parveen sp DNA JOHN+probe Ql (Vag fld) Not detected Not detected [facility] Comment on above: The Parveen species group target includes C. albicans, C. tropicalis, C. parapsilosis, and C. dubliniensis. Interpretation and review of laboratory results Normal [facility] T. vaginalis DNA JOHN+probe Ql (Unsp spec) Not detected Not detected [facility] C. glabrata RNA JOHN+probe Ql (Vag fld) Not detected Normal Not detected [facility] Comment on above: Order Comment: Speci men Type: SWABOrdering Facility: [facility] Address: [address] [place] [address] Performed By: #### B VAMP, CVTV ####[facility] LABIA [id number] [place] [address] [place] Parveen sp DNA JOHN+probe Ql (Vag fld) Not detected Normal Not detected [facility] Comment on above: Order Comment: Speci men Type: SWABOrdering Facility: [facility] Address: [address] [place] [address] Result Comment: The Parveen species group target includes C. albicans, C. tropicalis, C. parapsilosis, and C. dubliniensis. Performed By: #### B VAMP, CVTV ####[facility] LABCLIA [id number] [place] [address] [place] T. vaginalis DNA JOHN+probe Ql (Unsp spec) Not detected Normal Not detected [facility] Comment on above: Order Comment: Speci men Type: SWABOrdering Facility: [facility] Address: [address] [place] [address] Performed By: #### B MARCY CONDONTV ####[facility] LABCLIA [id number] [place] [address] [place] [id number] 01-19-2025 [id number] HNO ID: [id number] Author: ARMIDA NEVES, RN Service: ? Author Type: Registered Nurse Type: [id number] Filed: 01/19/2025 03:42 Note Text: Precautions given, patient verbalized understanding. Instructed to call her OB doctor for follow up. Normal [facility] Bacteria Ur Culton Bacteria identified Cx Nom (U) CULTURE, URINE: No growth (<1,000 CFU/ml) Normal [facility] Comment on above: Performed By: #### 6 30-4 ####[facility] LABORATORYCLIA [id number] [place] [address] [place] [address] ABD/PEL WO IVCONon 2024 CT ABD/PEL WO IVCON * * *Final Report* * * DATE OF EXAM: Jan 19 2025 12:50AM [facility] 0531 - CT ABD/PEL WO IVCON / [...] noncontrast CT. Recommend correlation with obstetric ultrasound. Extension Work Instructor: HIEU Transcribe Date/Time: Jan 19 2025 2:36A Dictated by : BONIFACIO GAYLE DO This examination was interpreted and the report reviewed and electronically signed by: BONIFACIO GAYLE DO on Jan 19 2025 2:54AM EST [id number] CN Normal [facility] CBC panel Auto (Bld)on 01-18 Erythrocyte distribution width (RBC) [Ratio] 14.1 % Normal 11.5-15.0 [facility] Comment on above: Order Comment: Speci men Type: BLOOD SPECIMENOrdering Facility: [facility] Address: [address] [place] [address] Performed By: #### 5 8410-2 ####[facility] LABORATORYCLIA [id number] [place] [address] [place] Hematocrit (Bld) [Volume fraction] 34.6 % Low 36.0-46.0 [facility] Comment on above: Order Comment: Speci men Type: BLOOD SPECIMENOrdering Facility: [facility] Address: [address] [place] [address] Performed By: #### 5 8410-2 ####[facility] LABORATORYCLIA [id number] [address] STATES OF [facility] Hemoglobin (Bld) [Mass/Vol] 11.5 g/dL Normal 11.5-15.5 [facility] Comment on above: Order Comment: Speci men Type: BLOOD SPECIMENOrdering Facility: [facility] Address: [address] [place] [address] Performed By: #### 5 8410-2 ####[facility] LABORATORYCLIA [id number] [address] MCH (RBC) [Entitic mass] 31.0 pg Normal 26.0-34.0 [facility] Comment on above: Order Comment: Speci men Type: BLOOD SPECIMENOrdering Facility: [facility] Address: [address] [place] [address] Performed By: #### 5 8410-2 ####[facility] LABORATORYCLIA [id number] [address] MCHC (RBC) [Mass/Vol] 33.2 g/dL Normal 30.5-36.0 [facility] Comment on above: Order Comment: Speci men Type: BLOOD SPECIMENOrdering Facility: [facility] Address: [address] [place] [address] Performed By: #### 5 8410-2 ####[facility] LABORATORYCLIA [id number] [address] STATES OF [facility] MCV (RBC) [Entitic vol] 93.3 fL Normal 80.0-100.0 [facility] Comment on above: Order Comment: Speci men Type: BLOOD SPECIMENOrdering Facility: [facility] Address: [address] [place] [address] Performed By: #### 5 8410-2 ####[facility] LABORATORYCLIA [id number] [address] Nucleated RBC (Bld) [#/Vol] 10*3/uL Normal <0.01 [facility] Comment on above: Order Comment: Speci men Type: BLOOD SPECIMENOrdering Facility: [facility] Address: [address] [place] [address] Performed By: #### 5 8410-2 ####[facility] LABORATORYCLIA [id number] [address] [place] Platelet mean volume (Bld) [Entitic vol] 9.2 fL Normal 9.0-12.7 [facility] Comment on above: Order Comment: Speci men Type: BLOOD SPECIMENOrdering Facility: [facility] Address: [address] [place] [address] Performed By: #### 5 8410-2 ####[facility] LABORATORYCLIA [id number] [address] OF [place] Platelets (Bld) [#/Vol] 242 10*3/uL Normal 150-400 [facility] Comment on above: Order Comment: Speci men Type: BLOOD SPECIMENOrdering Facility: [facility] Address: [address] [place] [address] Performed By: #### 5 8410-2 ####[facility] LABORATORYCLIA [id number] [address] [place] RBC (Bld) [#/Vol] 3.71 10*6/uL Low 3.90-5.20 [facility] Comment on above: Order Comment: Speci men Type: BLOOD SPECIMENOrdering Facility: [facility] Address: [address] [place] [address] Performed By: #### 5 8410-2 ####[facility] LABORATORYCLIA [id number] [address] OF [place] WBC (Bld) [#/Vol] 10.04 10*3/uL Normal 3.70-11.00 [facility] Comment on above: Order Comment: Speci men Type: BLOOD SPECIMENOrdering Facility: [facility] Address: [address] [place] [address] Performed By: #### 5 8410-2 ####[facility] LABORATORYCLIA [id number] [address] OF [facility] Landen 01-18-2025 CNPN Telephone (OBGYWM) PAL NICHOLAS ([id number]) 3 F Date Time Provider Department 01/18/25 LYNNETTE TAPIA OBGYWM During your visit today, we recorded the following information about you: Isaura Pereira RN 01/18/2025 8:46 AM Signed Breast pump order received from [employer]. To to sign. LEVON Hutson Lindsey, RN 01/20/2025 [...] Status:Closed by JOCELYNE BLACK on 01/20/25 Normal [facility] Comprehensive metabolic 2000 panelon 01-18-2025 Albumin [Mass/Vol] 3.8 g/dL Low 3.9-4.9 [facility] Comment on above: Order Comment: Speci men Type: BLOOD SPECIMENOrdering Facility: [facility] Address: [address] [place] [address] Performed By: #### 2 4323-8 ####[facility] LABORATORYCLIA [id number] [address] STATES OF [facility] ALP [Catalytic activity/Vol] 57 U/L Normal 34-123 [facility] Comment on above: Order Comment: Speci men Type: BLOOD SPECIMENOrdering Facility: [facility] Address: [address] [place] [address] Performed By: #### 2 4323-8 ####[facility] LABORATORYCLIA [id number] [place] [address] [place] ALT With P-5'-P [Catalytic activity/Vol] 11 U/L Normal 7-38 [facility] Comment on above: Order Comment: Speci men Type: BLOOD SPECIMENOrdering Facility: [facility] Address: [address] [place] [address] Performed By: #### 2 4323-8 ####[facility] LABORATORYCLIA [id number] [address] [place] Anion gap [Moles/Vol] 12 mmol/L Normal 8-15 [facility] Comment on above: Order Comment: Speci men Type: BLOOD SPECIMENOrdering Facility: [facility] Address: [address] [place] [address] Performed By: #### 2 4323-8 ####[facility] LABORATORYCLIA [id number] [address] [place] AST With P-5'-P [Catalytic activity/Vol] 16 U/L Normal 13-35 [facility] Comment on above: Order Comment: Speci men Type: BLOOD SPECIMENOrdering Facility: [facility] Address: [address] [place] [address] Performed By: #### 2 4323-8 ####[facility] LABORATORYCLIA [id number] [address] [place] Bilirubin [Mass/Vol] 0.3 mg/dL Normal 0.2-1.3 [facility] Comment on above: Order Comment: Speci men Type: BLOOD SPECIMENOrdering Facility: [facility] Address: [address] [place] [address] Performed By: #### 2 4323-8 ####[facility] LABORATORYCLIA [id number] [place] [address] [place] Calcium [Mass/Vol] 8.6 mg/dL Normal 8.5-10.2 [facility] Comment on above: Order Comment: Speci men Type: BLOOD SPECIMENOrdering Facility: [facility] Address: [address] [place] [address] Performed By: #### 2 4323-8 ####[facility] LABORATORYCLIA [id number] [place] [address] [place] Chloride [Moles/Vol] 103 mmol/L Normal 98-107 [facility] Comment on above: Order Comment: Speci men Type: BLOOD SPECIMENOrdering Facility: [facility] Address: [address] [place] [address] Performed By: #### 2 4323-8 ####[facility] LABORATORYCLIA [id number] [place] [address] [place] CO2 [Moles/Vol] 22 mmol/L Normal 22-30 [facility] Comment on above: Order Comment: Speci men Type: BLOOD SPECIMENOrdering Facility: [facility] Address: [address] [place] [address] Performed By: #### 2 4323-8 ####[facility] [id number] [address] [place] Creatinine [Mass/Vol] 0.50 mg/dL Low 0.58-0.96 [facility] Comment on above: Order Comment: Speci men Type: BLOOD SPECIMENOrdering Facility: [facility] Address: [address] [place] [address] Performed By: #### 2 4323-8 ####[facility] LABORATORYCLIA [id number] [address] [place] eGFRcr SerPlBld CKD-EPI 2020 138 mL/min/1.73m??? Normal >=60 [facility] Comment on above: Order Comment: Speci men Type: BLOOD SPECIMENOrdering Facility: [facility] Address: [address] [place] [address] Result Comment: Shilpa mated Glomerular Filtration Rate [...] actual GFR. Performed By: #### 2 4323-8 ####[facility] LABORATORYCLIA [id number] [place] [address] [place] Glucose [Mass/Vol] 63 mg/dL Low 74-99 [facility] Comment on above: Order Comment: Speci men Type: BLOOD SPECIMENOrdering Facility: [facility] Address: [address] [place] [address] Result Comment: The [place] Diabetes Association (ADA) provides guidance for cutoff [...] Standards of Medical Care in Diabetes 2016, [place] [employer]. Diabetes Care. 2016.39(Suppl 1). Performed By: #### 2 4323-8 ####[facility] LABORATORYCLIA [id number] [place] [address] [place] Potassium [Moles/Vol] 3.8 mmol/L Normal 3.7-5.1 [facility] Comment on above: Order Comment: Speci men Type: BLOOD SPECIMENOrdering Facility: [facility] Address: [address] [place] [address] Performed By: #### 2 4323-8 ####[facility] LABORATORYCLIA [id number] [place] [address] [place] Protein [Mass/Vol] 6.5 g/dL Normal 6.3-8.0 [facility] Comment on above: Order Comment: Speci men Type: BLOOD SPECIMENOrdering Facility: [facility] Address: [address] [place] [address] Performed By: #### 2 4323-8 ####[facility] LABORATORYCLIA [id number] [place] [address] [place] Sodium [Moles/Vol] 137 mmol/L Normal 136-144 [facility] Comment on above: Order Comment: Speci men Type: BLOOD SPECIMENOrdering Facility: [facility] Address: [address] [place] [address] Performed By: #### 2 4323-8 ####[facility] LABORATORYCLIA [id number] [place] [id number] [place] [facility] Urea nitrogen [Mass/Vol] 4 mg/dL Low 7- [facility] Comment on above: Order Comment: Speci men Type: BLOOD SPECIMENOrdering Facility: [facility] Address: [address] [place] [address] Performed By: #### 2 4323-8 ####[facility] LABORATORYCLIA [id number] [place] [id number] [facility] CNPNon 01-14-2025 CNPN Telephone (OBGYWM) PAL NICHOLAS ([id number]) 3 F Date Time Provider Department 01/14/25 [...] 01/13/2025 Pelvic pressure in (HCC) [O26.899, R1*01/06/2025 Prescriptions ordered this encounter Disp Refills Start End NITROFURANTOIN MONOHYDRATE AND MACROCR* 14 c* 0 01/14/2025 01/21/2025 Route: PO Sig: Take 1 capsule by mouth two times a day for 7 days. Encounter Status:Closed by RAMAKRISHNA CORLEY on 01/14/25 Normal [facility] Examination level ultrasound on 01-12-2025 Indication Detailed [...] 12 oz EFW by: Hadlock (HC-AC-FL) Extended Bat Boy/Girl 6.6 mm CM 6.6 mm 90% Nicolaides [...] normal LVOT view: normal 3-vessel view: normal 1-afwsmj-oubvjck view: normal Heart / Thorax Situs: situs [...] ovary: Visualized Lt ovary: Visualized Performed By: Jocleyne Ernandez RDMS, RVT Read By: Tiffanie Barrios M.D. MATERNAL MEDICINE [facility] TSH W/REFLEX FT4on 5 TSH Qn 1.510 m[IU]/L Normal 0.510-4.300 [facility] Comment on above: Order Comment: Speci men Type: BLOOD SPECIMENOrdering Facility: [facility] Address: [address] [place] [address] Result Comment: If t he patient is , TSH reference range varies by gestational period: First Trimester (weeks 9-12): 0.180-2.990 mIU/L Second Trimester: 0.110-3.980 mIU/L Third Trimester: 0.480-4.710 mIU/L Garry Rizvi et al. A Practical Approach for the Verifications and Determination of Site- and Trimester-Specific Reference Intervals for Thyroid Function tests in . Thyroid, 2019:29:3:412-420. Keagan Dimas, et al. 2017 Guidelines of the [place] Thyroid Association for the Diagnosis and Management of Thyroid Disease during and the . Thyroid, 2017:27:3:315-389. Performed By: #### T SHRF ####[facility] LABCLIA [id number] [address] [place] BACTERIAL VAGINOSIS NAATon 0 01-11-2025 Lactobacillus crispatus+gasseri+muniz ii + Gardnerella vaginalis + Atopobium vaginae rRNA JOHN+probe Ql (Vag fld) Not detected Normal Not detected [facility] Comment on above: Order Comment: Speci men Type: SWABOrdering Facility: [facility] Address: [address] [place] [address] Performed By: #### C VTV, BVAMP ####[facility] LABCLIA [id number] [place] [address] [place] Bacteria Ur Culton 5 Bacteria identified Cx Nom (U) ORGANISM ID: 1 <10,000 CFU/ml Enterococcus faecalis Insignificant colony count. No further workup. Cephalosporins, clindamycin, and TMP-SMX are not effective for the treatment of enterococcal infections. Normal [facility] Comment on above: Performed By: #### 6 30-4 ####[facility] LABCLIA [id number] [place] [address] [place] PARVEEN/TRICHOMONAS NAATon 0 01-11-2025 C. glabrata RNA JOHN+probe Ql (Vag fld) Not detected Normal Not detected [facility] Comment on above: Order Comment: Speci men Type: SWABOrdering Facility: [facility] Address: [address] [place] [address] Performed By: #### C VTV, BVAMP ####[facility] LABCLIA [id number] [place] [address] [place] Parveen sp DNA JOHN+probe Ql (Vag fld) Not detected Normal Not detected [facility] Comment on above: Order Comment: Speci men Type: SWABOrdering Facility: [facility] Address: [address] [place] [address] Result Comment: The Parveen species group target includes C. albicans, C. tropicalis, C. parapsilosis, and C. dubliniensis. Performed By: #### C VTV, BVAMP ####[facility] LABCLIA [id number] [place] [address] [place] T. vaginalis DNA JOHN+probe Ql (Unsp spec) Not detected Normal Not detected [facility] Comment on above: Order Comment: Speci men Type: SWABOrdering Facility: [facility] Address: [address] [place] [address] Performed By: #### C VTV, BVAMP ####[facility] LABCLIA [id number] [place] [address] [place] Examination level ultrasound on 01-11-2025 Radiology Study observation (narrative) [facility] UA DIP, URINE (POC)on 2024 BILIRUBIN UA (POCT) Negative Negative [facility] CLARITY UA (POCT) Clear [facility] COLOR UA (POCT) Yellow [facility] GLUCOSE UA (POCT) Negative Negative mg/dL [facility] Hemoglobin Ql (U) Negative Negative [facility] Interpretation and review of laboratory results Abnormal [facility] KETONE UA (POCT) Negative Negative mg/dL [facility] LEUKOCYTES UA (POCT) Trace Abnormal Negative [facility] NITRITE UA (POCT) Negative Negative [facility] PH UA (POCT) 6.0 4.5 - 8.0 [facility] Protein Ql (U) Negative Negative mg/dL [facility] SPECIFIC GRAVITY UA (POCT) 1.020 1.005 - 1.030 [facility] UROBILINOGEN UA (POCT) 0.2 Jazmine l E.U./dL [facility] Location:[facility], [address], [place], [address] [facility] POINT OF CARE [facility] Landen 01-07-2025 CNPN Telephone (AKPRAD) PAL NICHOLAS ([id number]) 3 F Date Time Provider Department 01/07/25 EJ RODRIGUEZ During your visit today, we recorded the following information about you: Ej Rodriguez MD 01/07/2025 12:41 PM Signed Patient was seen by resident but not by any attending employee counselor while in labor and delivery she is [...] Status:Closed by EJ RODRIGUEZ on 01/12/[address] [facility] Basic metabolic 2000 panelon 01-06-2025 Anion gap [Moles/Vol] 12 mmol/L Normal 8-15 [facility] Comment on above: Order Comment: Speci men Type: BLOOD SPECIMENOrdering Facility: [facility] Address: [address] [place] [address] Performed By: #### H [facility], 99925-2 ####[facility] LABORATORYCLIA [id number] [place] [address] [place] Calcium [Mass/Vol] 8.6 mg/dL Normal 8.5-10.2 [facility] Comment on above: Order Comment: Speci men Type: BLOOD SPECIMENOrdering Facility: [facility] Address: [address] [place] [address] Performed By: #### H STNT, 09543-8 ####[facility] LABORATORYCLIA [id number] [place] [address] [place] Chloride [Moles/Vol] 104 mmol/L Normal 98-107 [facility] Comment on above: Order Comment: Speci men Type: BLOOD SPECIMENOrdering Facility: [facility] Address: [address] [place] [address] Performed By: #### H STNT, 07159-7 ####[facility] LABORATORYCLIA [id number] [place] [address] [place] CO2 [Moles/Vol] 20 mmol/L Low 22-30 [facility] Comment on above: Order Comment: Speci men Type: BLOOD SPECIMENOrdering Facility: [facility] Address: [address] [place] [address] Performed By: #### H STNT, 24712-1 ####[facility] LABORATORYCLIA [id number] [address] [place] Creatinine [Mass/Vol] 0.47 mg/dL Low 0.58-0.96 [facility] Comment on above: Order Comment: Speci men Type: BLOOD SPECIMENOrdering Facility: [facility] Address: [address] [place] [address] Performed By: #### H STNT, 98203-3 ####[facility] LABORATORYCLIA [id number] [place] [address] [place] eGFRcr SerPlBld CKD-EPI 2020 140 mL/min/1.73m??? Normal >=60 [facility] Comment on above: Order Comment: Speci men Type: BLOOD SPECIMENOrdering Facility: [facility] Address: [address] [place] [address] Result Comment: Shilpa mated Glomerular Filtration Rate [...] actual GFR. Performed By: #### H STEVE, 94899-6 ####[facility] LABORATORYCLIA [id number] [place] [address] [place] Glucose [Mass/Vol] 78 mg/dL Normal 74-99 [facility] Comment on above: Order Comment: Destini thorpe Type: BLOOD SPECIMENOrdering Facility: [facility] Address: [address] [place] [address] Result Comment: The [place] Diabetes Association (ADA) provides guidance for cutoff [...] Standards of Medical Care in Diabetes 2016, [place] Diabetes Association. Diabetes Care. 2016.39(Suppl 1). Performed By: #### H STNT, 59329-4 ####[facility] LABORATORYCLIA [id number] [place] [address] [place] Potassium [Moles/Vol] 3.7 mmol/L Normal 3.7-5.1 [facility] Comment on above: Order Comment: Destini thorpe Type: BLOOD SPECIMENOrdering Facility: [facility] Address: [address] [place] [address] Performed By: #### H STNT, 60893-3 ####[facility] LABORATORYCLIA [id number] [place] [address] [place] Sodium [Moles/Vol] 136 mmol/L Normal 136-144 [facility] Comment on above: Order Comment: Destini thorpe Type: BLOOD SPECIMENOrdering Facility: [facility] Address: [address] [place] [address] Performed By: #### H STNT, 13764-3 ####[facility] LABORATORYCLIA [id number] [address] Urea nitrogen [Mass/Vol] 8 mg/dL Normal 7-21 [facility] Comment on above: Order Comment: Speci men Type: BLOOD SPECIMENOrdering Facility: [facility] Address: [address] [place] [address] Performed By: #### H STNT, 72284-3 ####[facility] LABORATORYCLIA [id number] [address] C. trachomatis+N. gonorrhoea e DNA JOHN+probe Ql (Unsp spec)on 01-06-2025 C. trachomatis rRNA JOHN+probe Ql (Unsp spec) Not detected Normal Not detected [facility] Comment on above: Order Comment: Speci men Type: SWABOrdering Facility: [facility] Address: [address] [place] [address] Performed By: #### 3 6902-5, TRVAMP ####[facility] LABORATORYCLIA [id number] [address] N. gonorrhoeae rRNA JOHN+probe Ql (Unsp spec) Not detected Normal Not detected [facility] Comment on above: Order Comment: Speci men Type: SWABOrdering Facility: [facility] Address: [address] [place] [address] Performed By: #### 3 6902-5, TRVAMP ####[facility] LABORATORYCLIA [id number] [address] [place] CBC panel Auto (Bld)on 01-06 Erythrocyte distribution width (RBC) [Ratio] 13.7 % Normal 11.5-15.0 [facility] Comment on above: Order Comment: Speci men Type: BLOOD SPECIMENOrdering Facility: [facility] Address: [address] [place] [address] Performed By: #### 5 8410-2 ####[facility] LABORATORYCLIA [id number] [address] OF [facility] Hematocrit (Bld) [Volume fraction] 36.1 % Normal 36.0-46.0 [facility] Comment on above: Order Comment: Speci men Type: BLOOD SPECIMENOrdering Facility: [facility] Address: [address] [place] [address] Performed By: #### 5 8410-2 ####[facility] LABORATORYCLIA [id number] [address] OF [place] Hemoglobin (Bld) [Mass/Vol] 12.3 g/dL Normal 11.5-15.5 [facility] Comment on above: Order Comment: Speci men Type: BLOOD SPECIMENOrdering Facility: [facility] Address: [address] [place] [address] Performed By: #### 5 8410-2 ####[facility] LABORATORYCLIA [id number] [address] STATES OF [facility] MCH (RBC) [Entitic mass] 30.8 pg Normal 26.0-34.0 [facility] Comment on above: Order Comment: Speci men Type: BLOOD SPECIMENOrdering Facility: [facility] Address: [address] [place] [address] Performed By: #### 5 8410-2 ####[facility] LABORATORYCLIA [id number] [address] [place] MCHC (RBC) [Mass/Vol] 34.1 g/dL Normal 30.5-36.0 [facility] Comment on above: Order Comment: Speci men Type: BLOOD SPECIMENOrdering Facility: [facility] Address: [address] [place] [address] Performed By: #### 5 8410-2 ####[facility] LABORATORYCLIA [id number] [address] OF [place] MCV (RBC) [Entitic vol] 90.3 fL Normal 80.0-100.0 [facility] Comment on above: Order Comment: Speci men Type: BLOOD SPECIMENOrdering Facility: [facility] Address: [address] [place] [address] Performed By: #### 5 8410-2 ####[facility] LABORATORYCLIA [id number] [address] [facility] Nucleated RBC (Bld) [#/Vol] 10*3/uL Normal <0.01 [facility] Comment on above: Order Comment: Speci men Type: BLOOD SPECIMENOrdering Facility: [facility] Address: [address] [place] [address] Performed By: #### 5 8410-2 ####[facility] LABORATORYCLIA [id number] [address] OF [place] Platelet mean volume (Bld) [Entitic vol] 9.3 fL Normal 9.0-12.7 [facility] Comment on above: Order Comment: Speci men Type: BLOOD SPECIMENOrdering Facility: [facility] Address: [address] [place] [address] Performed By: #### 5 8410-2 ####[facility] LABORATORYCLIA [id number] [address] [place] Platelets (Bld) [#/Vol] 248 10*3/uL Normal 150-400 [facility] Comment on above: Order Comment: Speci men Type: BLOOD SPECIMENOrdering Facility: [facility] Address: [address] [place] [address] Performed By: #### 5 8410-2 ####[facility] LABORATORYCLIA [id number] [address] [place] RBC (Bld) [#/Vol] 4.00 10*6/uL Normal 3.90-5.20 [facility] Comment on above: Order Comment: Speci men Type: BLOOD SPECIMENOrdering Facility: [facility] Address: [address] [place] [address] Performed By: #### 5 8410-2 ####[facility] LABORATORYCLIA [id number] [place] [address] [place] WBC (Bld) [#/Vol] 10.26 10*3/uL Normal 3.70-11.00 [facility] Comment on above: Order Comment: Speci men Type: BLOOD SPECIMENOrdering Facility: [facility] Address: [address] [place] [address] Performed By: #### 5 8410-2 ####[facility] LABORATORYCLIA [id number] [place] [address] [place] CNPNon 01-06-2025 CNPN Telephone (OBGYWM) PAL NICHOLAS ([id number]) 3 F Date Time Provider Department 01/06/25 KARINA ADDISON During your visit today, we recorded the following information about you: Magda Hagen RN 01/06/2025 4:55 PM Addendum 19w2d Patient called to report that she is having an increase in vaginal pressure and a change in her vaginal discharge. It is chunkier, but not consistent with a yeast infection. Discharge is yellow/green with an occasional tinge of pink. No itching or irritation. See 01/04 and 01/05 telephone notes. Patient was seen at [facility] triage on 01/04. The diarrhea has resolved. Advised that she go back to [facility] as the office is closing. Patient asked for an appointment tomorrow instead because of transportation. No available appointments. Advised that she should be evaluated today in case she is having labor. Voiced understanding and believes she could have a friend take her. LEVON Driver Rebecca L, MD 01/07/2025 10:00 AM Signed If not improved work in any cancellations, go to [facility] for eval or schedule tomorrow if openings. MD Honey Begum Lindsey, RN 01/07/2025 10:36 AM Signed Patient was seen at [facility] last night. She has OB and MFM [...] of (HCC) [Z3A.19] 01/06/2025 Pelvic pressure in ([facility]) [O26.899, R1*01/06/2025 Encounter Status:Closed by KARINA ADDISON on 01/07/25 [facility] CONSULTon 01-06-2025 CONSULT HNO ID: [id number] Author: EJ RODRIGUEZ MD Service: Nephrology Author [...] not on any medications. 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 Normal [facility] ECG COMPLETEon 01-06-2025 ECG COMPLETE Ventricular Rate : 79 BPM Atrial Rate : 79 BPM P-R Interval : 120 ms QRS Duration : 76 ms Q-T Interval : 350 ms QTC Calculation(Bazett) : 401 ms Calculated P [place] : -18 degrees Calculated R [place] : 148 degrees Calculated T [place] : -28 degrees NORMAL SINUS RHYTHM RIGHT AXIS DEVIATION LOW VOLTAGE QRS CANNOT RULE OUT INFERIOR INFARCT , AGE UNDETERMINED T WAVE ABNORMALITY, CONSIDER ANTERIOR ISCHEMIA ABNORMAL ECG WHEN COMPARED WITH ECG OF 05-Jan-2025 00:20, QRS AXIS SHIFTED RIGHT Confirmed by MD QUYEN, ANDREW ([id number]) on 01/07/2025 11:39:00 AM NAME : SARAHY BUCKTYLAURAGEO PID : [id number] : 2005 Gender : Female Race : ORD : [id number] Procedure Date : Jan 06 2025 20:38:59 Edit Date : Jan 07 2025 11:39:11 Diagnosis: NORMAL SINUS RHYTHM RIGHT AXIS DEVIATION LOW VOLTAGE QRS CANNOT RULE OUT INFERIOR INFARCT , AGE UNDETERMINED T WAVE ABNORMALITY, CONSIDER ANTERIOR ISCHEMIA ABNORMAL ECG WHEN COMPARED WITH ECG OF 05-Jan-2025 00:20, QRS AXIS SHIFTED RIGHT Confirmed by MD NAPIER VINAY ([id number]) on 01/07/2025 11:39:00 AM Test Reason : [facility] Pain [facility] Overread By : MD NAPIER VINAY Edited By : MD NAPIER VINAY Referred By : , Acquired by : ZUNILDA FULLER [facility] HIGH SENSITIVITY TROPONIN To n 01-06-2025 Troponin T.cardiac High sensitivity method [Mass/Vol] <6 Normal <12 [facility] Comment on above: Order Comment: Speci men Type: BLOOD SPECIMEN [facility] Address: [address] [place] [address] Performed By: #### H STNT #### [facility] CLIA [id number] [address] [facility] Troponin T.cardiac High sensitivity method [Mass/Vol] <6 Normal <12 [facility] Comment on above: Order Comment: Speci men Type: BLOOD SPECIMENOrdering Facility: [facility] Address: [address] [place] [address] Performed By: #### H STNT, 99980-7 ####[facility] LABORATORYCLIA [id number] [address] OF [place] TRICHOMONAS VAGINALIS NAATon 01-06-2025 T. vaginalis DNA JOHN+probe Ql (Unsp spec) Not detected Normal Not detected [facility] Comment on above: Order Comment: Speci men Type: SWABOrdering Facility: [facility] Address: [address] [place] [address] Performed By: #### 3 6902-5, TRVAMP ####[facility] LABORATORYCLIA [id number] [place] [address] [place] CBC panel Auto (Bld)on 01-05 Erythrocyte distribution width (RBC) [Ratio] 14.0 % Normal 11.5-15.0 [facility] Comment on above: Order Comment: Speci men Type: BLOOD SPECIMENOrdering Facility: [facility] Address: [address] [place] [address] Performed By: #### 5 8410-2 ####[facility] LABORATORYCLIA [id number] [address] Hematocrit (Bld) [Volume fraction] 33.6 % Low 36.0-46.0 [facility] Comment on above: Order Comment: Speci men Type: BLOOD SPECIMENOrdering Facility: [facility] Address: [address] [place] [address] Performed By: #### 5 8410-2 ####[facility] LABORATORYCLIA [id number] [address] Hemoglobin (Bld) [Mass/Vol] 11.4 g/dL Low 11.5-15.5 [facility] Comment on above: Order Comment: Speci men Type: BLOOD SPECIMENOrdering Facility: [facility] Address: [address] [place] [address] Performed By: #### 5 8410-2 ####[facility] LABORATORYCLIA [id number] [address] MCH (RBC) [Entitic mass] 30.6 pg Normal 26.0-34.0 [facility] Comment on above: Order Comment: Speci men Type: BLOOD SPECIMENOrdering Facility: [facility] Address: [address] [place] [address] Performed By: #### 5 8410-2 ####[facility] LABORATORYCLIA [id number] [address] MCHC (RBC) [Mass/Vol] 33.9 g/dL Normal 30.5-36.0 [facility] Comment on above: Order Comment: Speci men Type: BLOOD SPECIMENOrdering Facility: [facility] Address: [address] [place] [address] Performed By: #### 5 8410-2 ####[facility] LABORATORYCLIA [id number] [address] OF [facility] MCV (RBC) [Entitic vol] 90.1 fL Normal 80.0-100.0 [facility] Comment on above: Order Comment: Speci men Type: BLOOD SPECIMENOrdering Facility: [facility] Address: [address] [place] [address] Performed By: #### 5 8410-2 ####[facility] LABORATORYCLIA [id number] [address] OF [facility] Nucleated RBC (Bld) [#/Vol] 10*3/uL Normal <0.01 [facility] Comment on above: Order Comment: Speci men Type: BLOOD SPECIMENOrdering Facility: [facility] Address: [address] [place] [address] Performed By: #### 5 8410-2 ####[facility] LABORATORYCLIA [id number] [address] Platelet mean volume (Bld) [Entitic vol] 9.3 fL Normal 9.0-12.7 [facility] Comment on above: Order Comment: Speci men Type: BLOOD SPECIMENOrdering Facility: [facility] Address: [address] [place] [address] Performed By: #### 5 8410-2 ####[facility] LABORATORYCLIA [id number] 75 [address] Platelets (Bld) [#/Vol] 223 10*3/uL Normal 150-400 [facility] Comment on above: Order Comment: Speci men Type: BLOOD SPECIMENOrdering Facility: [facility] Address: [address] [place] [address] Performed By: #### 5 8410-2 ####[facility] LABORATORYCLIA [id number] [address] OF [place] RBC (Bld) [#/Vol] 3.73 10*6/uL Low 3.90-5.20 [facility] Comment on above: Order Comment: Speci men Type: BLOOD SPECIMENOrdering Facility: [facility] Address: [address] [place] [address] Performed By: #### 5 8410-2 ####[facility] LABORATORYCLIA [id number] [address] OF [facility] WBC (Bld) [#/Vol] 10.50 10*3/uL Normal 3.70-11.00 [facility] Comment on above: Order Comment: Speci men Type: BLOOD SPECIMENOrdering Facility: [facility] Address: [address] [place] [address] Performed By: #### 5 8410-2 ####[facility] LABORATORYCLIA [id number] [address] CNPNon 01-05-2025 CNPN Telephone (AKPOB) PAL NICHOLAS ([id number]) 3 F Date Time Provider Department 01/05/25 JAYLA KELLER During your visit today, we recorded the following information about you: Jayla Keller MD 01/05/2025 11:19 AM Signed Patient called requesting Rx for potassium and imodium after being seen in the OB ED 1 day ago. Jayla Keller MD Allergies As of Date: 01/05/2025 (No Known Allergies) Date Reviewed: 01/04/2025 Reviewed by: Mariann Milton, RN - Fully Assessed Order(s):potassium chloride (K-TAB) [...] Status:Closed by JAYLA KELLER on 01/05/[address] [facility] CNPN Telephone (OBGYWM) PAL NICHOLAS ([id number]) 3 F Date Time Provider Department 01/05/25 LESTER PHILLIPS OBGYWM During your visit today, we recorded the following information about you: Magda Hagen RN 01/05/2025 11:40 AM Signed 19w1d See 01/04 phone note. Patient went to [facility] last night. [facility] notes available to review. Patient was prescribed [...] feel completely confident in the diagnosis from [facility]. Please advise. LEVON Gardner Karmon, MD 01/05/2025 12:09 PM Signed Patient was seen by Mitesh Kulkarni while at [facility]. I recommend supportive care with hydration, [...] Status:Closed by JOCELYNE BLACK on 01/05/25 Normal [facility] Comprehensive metabolic 2000 panelon 01-05-2025 Albumin [Mass/Vol] 3.5 g/dL Low 3.9-4.9 [facility] Comment on above: Order Comment: Speci men Type: BLOOD SPECIMENOrdering Facility: [facility] Address: [address] [place] [address] [place] [address] Performed By: #### 2 8627-8 ####[facility]ORATORYCLIA [id number] [place], [place] [id number] [place] [address] [place] ALP [Catalytic activity/Vol] 46 U/L Normal 34-123 [facility] Comment on above: Order Comment: Speci men Type: BLOOD SPECIMENOrdering Facility: [facility] Address: [address] [place] [address] Performed By: #### 2 4323-8 ####[facility] LABORATORYCLIA [id number] [address] [place] ALT With P-5'-P [Catalytic activity/Vol] 13 U/L Normal 7-38 [facility] Comment on above: Order Comment: Speci men Type: BLOOD SPECIMENOrdering Facility: [facility] Address: [address] [place] [address] Performed By: #### 2 4323-8 ####[facility] LABORATORYCLIA [id number] [address] OF [facility] Anion gap [Moles/Vol] 12 mmol/L Normal 8-15 [facility] Comment on above: Order Comment: Speci men Type: BLOOD SPECIMENOrdering Facility: [facility] Address: [address] [place] [address] Performed By: #### 2 4323-8 ####[facility] LABORATORYCLIA [id number] [address] STATES OF [facility] AST With P-5'-P [Catalytic activity/Vol] 16 U/L Normal 13-35 [facility] Comment on above: Order Comment: Speci men Type: BLOOD SPECIMENOrdering Facility: [facility] Address: [address] [place] [address] Performed By: #### 2 4323-8 ####[facility] LABORATORYCLIA [id number] [address] [place] Bilirubin [Mass/Vol] 0.3 mg/dL Normal 0.2-1.3 [facility] Comment on above: Order Comment: Speci men Type: BLOOD SPECIMENOrdering Facility: [facility] Address: [address] [place] [address] Performed By: #### 2 4323-8 ####[facility] LABORATORYCLIA [id number] [place] [address] [place] Calcium [Mass/Vol] 9.1 mg/dL Normal 8.5-10.2 [facility] Comment on above: Order Comment: Speci men Type: BLOOD SPECIMENOrdering Facility: [facility] Address: [address] [place] [address] Performed By: #### 2 4323-8 ####[facility] LABORATORYCLIA [id number] [place] [address] [place] Chloride [Moles/Vol] 106 mmol/L Normal 98-107 [facility] Comment on above: Order Comment: Speci men Type: BLOOD SPECIMENOrdering Facility: [facility] Address: [address] [place] [address] Performed By: #### 2 4323-8 ####[facility] LABORATORYCLIA [id number] [place] [address] [place] CO2 [Moles/Vol] 21 mmol/L Low 22-30 [facility] Comment on above: Order Comment: Speci men Type: BLOOD SPECIMENOrdering Facility: [facility] Address: [address] [place] [address] Performed By: #### 2 4323-8 ####[facility] LABORATORYCLIA [id number] [place] [address] [place] Creatinine [Mass/Vol] 0.51 mg/dL Low 0.58-0.96 [facility] Comment on above: Order Comment: Speci men Type: BLOOD SPECIMENOrdering Facility: [facility] Address: [address] [place] [address] Performed By: #### 2 4323-8 ####[facility] LABORATORYCLIA [id number] [place] [address] [place] eGFRcr SerPlBld CKD-EPI 2020 137 mL/min/1.73m??? Normal >=60 [facility] Comment on above: Order Comment: Destini thorpe Type: BLOOD SPECIMENOrdering Facility: [facility] Address: [address] [place] [address] Result Comment: Shilpa mated Glomerular Filtration Rate [...] actual GFR. Performed By: #### 2 4323-8 ####[facility] LABORATORYCLIA [id number] [place] [address] [place] Glucose [Mass/Vol] 93 mg/dL Normal 74-99 [facility] Comment on above: Order Comment: Destini thorpe Type: BLOOD SPECIMENOrdering Facility: [facility] Address: [address] [place] [address] Result Comment: The [place] Diabetes Association (ADA) provides guidance for cutoff [...] Standards of Medical Care in Diabetes 2016, [place] [employer]. Diabetes Care. 2016.39(Suppl 1). Performed By: #### 2 4323-8 ####[facility] LABORATORYCLIA [id number] [place] [address] [place] Potassium [Moles/Vol] 3.4 mmol/L Low 3.7-5.1 [facility] Comment on above: Order Comment: Destini thorpe Type: BLOOD SPECIMENOrdering Facility: [facility] Address: [address] [place] [address] Performed By: #### 2 4323-8 ####[facility] LABORATORYCLIA [id number] [address] STATES OF [facility] Protein [Mass/Vol] 5.8 g/dL Low 6.3-8.0 [facility] Comment on above: Order Comment: Speci men Type: BLOOD SPECIMENOrdering Facility: [facility] Address: [address] [place] [address] Performed By: #### 2 4323-8 ####[facility] LABORATORYCLIA [id number] [place] [id number] [place] Sodium [Moles/Vol] 139 mmol/L Normal 136-144 [facility] Comment on above: Order Comment: Speci men Type: BLOOD SPECIMENOrdering Facility: [facility] Address: [address] [place] [address] Performed By: #### 2 4323-8 ####[facility] LABORATORYCLIA [id number] [address] STATES [place] Urea nitrogen [Mass/Vol] 5 mg/dL Low 7-21 [facility] Comment on above: Order Comment: Speci men Type: BLOOD SPECIMENOrdering Facility: [facility] Address: [address] [place] [address] Performed By: #### 2 4323-8 ####[facility] LABORATORYCLIA [id number] [address] [place] ECG COMPLETEon 01-05-2025 ECG COMPLETE Ventricular Rate : 97 BPM Atrial Rate : 97 BPM P-R Interval : 128 ms QRS Duration : 78 ms Q-T Interval : 344 ms QTC Calculation(Bazett) : 436 ms Calculated P [place] : 21 degrees Calculated R [place] : 23 degrees Calculated T [place] : -1 degrees NORMAL SINUS RHYTHM LOW VOLTAGE QRS BORDERLINE ECG NO PREVIOUS ECGS AVAILABLE Confirmed by MD NAPIER VINAY ([id number]) on 01/05/2025 12:13:29 PM NAME : PAL NICHOLAS PID : [id number] : 2005 Gender : Female Race : ORD : [id number] Procedure Date : Jan 05 2025 00:20:24 Edit Date : Jan 05 2025 12:13:36 Diagnosis: NORMAL SINUS RHYTHM LOW VOLTAGE QRS BORDERLINE ECG NO PREVIOUS ECGS AVAILABLE Confirmed by MD NAPIER VINAY ([id number]) on 01/05/2025 12:13:29 PM Test Reason : Dizziness Location : 200 : [facility] TR04 Overread By : MD NAPIER VINAY Edited By : MD NAPIER VINAY Referred By : , Acquired by : BEN GALVAN [facility] Landen 01-04-2025 CNPN Telephone (OBGYWM) PAL NICHOLAS ([id number]) 3 F Date Time Provider Department 01/04/25 [...] this is staying the same since at [facility] 12/22/24. Last few weeks, Pt states extremely watery discharge. Went to [facility] at that time d/t having sharp cervical pain AND was treated for BV. Feels hydrated/Has been drinking liquid IV. Does have some burning on urination AND was seen on 12/30/24 in office-UA completed and TRACE protein and TRACE leukocytes. Advised Pt that since pain has worsened as the day as gone on that it would be best to go to [facility] to be evaluated as no appts available in office at this time. Pt did state she'd feel more comfortable going there and that is essentially why she called as she wanted to discuss with a nurse. Pt states her ride will not be able to pick her up for another 30 minutes, but Pt is agreeable to go to [facility] Dr. Aragon notified. Maite Peterson RN Allergies As of Date: 01/04/2025 (No Known Allergies) Date Reviewed: 01/04/2025 Reviewed by: Mariann Milton RN - Fully Assessed Reason for Visit: Low [...] Encounter Status:Closed by MAITE PETERSON on 01/21/25 [facility] SARAHY KAURPAL Radha ([id number]) 3 F Date Time Provider Department 12/29/24 KARINA ADDISON OBGYWM During your visit today, we recorded the following information about you: Luana Acosta LPN 12/29/2024 5:58 PM Addendum Ob 18w1d called stating that when she went to the restroom noticed a "clump" of whitish yellow vaginal discharge that was "stringy" Patient has had ongoing abdominal pain that [...] Status:Closed by KARINA ADDISON on 12/29/24 Normal [facility] BACTERIAL VAGINOSIS NAATon 0 12-28-2024 Lactobacillus crispatus+gasseri+muniz ii + Gardnerella vaginalis + Atopobium vaginae rRNA JOHN+probe Ql (Vag fld) Not detected Normal Not detected [facility] Comment on above: Order Comment: Speci men Type: SWABOrdering Facility: [facility] Address: [address] [place] [address] Performed By: #### C VTV, BVAMP ####[facility] LABCLIA [id number] [address] [place] PARVEEN/TRICHOMONAS NAATon 0 12-28-2024 C. glabrata RNA JOHN+probe Ql (Vag fld) Not detected Normal Not detected [facility] Comment on above: Order Comment: Speci men Type: SWABOrdering Facility: [facility] Address: [address] [place] [address] Performed By: #### C VTV, BVAMP ####[facility] LABCLIA [id number] [address] [place] Parveen sp DNA JOHN+probe Ql (Vag fld) Not detected Normal Not detected [facility] Comment on above: Order Comment: Speci men Type: SWABOrdering Facility: [facility] Address: [address] [place] [address] Result Comment: The Parveen species group target includes C. albicans, C. tropicalis, C. parapsilosis, and C. dubliniensis. Performed By: #### C VTV, BVAMP ####[facility] LABCLIA [id number] [place] [address] [place] T. vaginalis DNA JOHN+probe Ql (Unsp spec) Not detected Normal Not detected [facility] Comment on above: Order Comment: Speci men Type: SWABOrdering Facility: [facility] Address: [address] [place] [address] Performed By: #### C VTV, BVAMP ####[facility] LABCLIA [id number] [place] [address] [id number] CNPNon 12-25-2024 CNPN Telephone (OBGYWM) PAL NICHOLAS ([id number]) 3 F Date Time Provider Department 12/25/24 LYNNETTE TAPIA OBGYW During your visit today, we recorded the following information about you: Isaura Pereira RN 12/25/2024 12:14 PM Signed Records received from [facility] [place]. In chart prep binder for NOB appt on 12/28 with CP. Isaura Pereira RN Allergies As of Date: 12/25/2024 (No Known Allergies) Date Reviewed: 12/22/2024 Reviewed by: Tressa Winters DO - Fully Assessed Reason for Visit: Received Outside Medical Records [1879] Prescriptions as of 12/25/2024 - cyclobenzaprine (FLEXERIL) [...] Status:Closed by ISAURA PEREIRA on 12/25/24 Normal [facility] Urine Cultureon 12-24-2024 [facility] Mixed Gram Positive Organisms [place] Count 11,000-25,000 MIXC Mixed contaminants. Submit a new specimen if indicated. Normal [facility] Comment on above: Performed By: #### M 100.2200 #### [facility] [address] [place], [address] CNPNon 12-22-2024 CNPN Telephone (OBGYWM) PAL NICHOLAS ([id number]) 3 F Date Time Provider Department 12/22/24 KARINA ADDISON OBGYWM During your visit today, we recorded the following information about you: Magda Hagen RN 12/22/2024 12:30 PM Signed New [facility] OB seen at [facility] ER yesterday for pelvic pain. LMP 08/24/24. Approximately 17w1d. Patient calling because she still continues to have pelvic pain and pressure. Pain rate of 5-6. Taking Tylenol and using heat with no relief. States when she went to the ER her pain was 8-9. Denies LOF or VB. Per [facility] ER report: Discussed the case with on-call [employer] for [facility] Dr. Aragon who states that she can [...] of medical records from her previous OB. [facility] ER report to to review. MagdaLEVON Wallace Rebecca L, MD 12/22/2024 3:41 PM Signed Agree w/ keep scheduled appointment. Make sure we have US results/labs for NOB. If infection ruled out and no bleeding would recommend stretching, tylenol and warm baths prn. Can return to ED if urgent issue or go to [facility]A at [facility] or see if there is a sooner [...] Status:Closed by MAGDA HAGEN on 12/22/24 Normal [facility] Absolute lymphocyte countOrd ered By: Aftab Mendoza on 12-21-2024 Lymphocytes Auto (Unsp spec) [#/Vol] 1.91 10*3/uL 0.83-4.51 [facility] Absolute neutrophil countOrd ered By: Aftab Mendoza on 12-21-2024 Neutrophils (Bld) [#/Vol] 7.6 10*3/uL 2.0-7.7 [facility] Anion gap in Serum or Plasma Ordered By: Aftab Mendoza on 12-21-2024 Anion gap [Moles/Vol] 13 mmol/L 5-15 [facility] Automated lymphocyte count a s percentage of total leukocytesOrdered By: Aftab Mendoza on 12-21-2024 Lymphocytes/100 WBC Auto (Unsp spec) 18.4 % Low 19-41 [facility] BUN/creatinine ratioOrdered By: Aftab Mendoza on 12-21-2024 Urea nitrogen/Creatinine [Mass ratio] 13.0 mg/mg 10-20 [facility] Basophil percentageOrdered B y: Aftab Mendoza on 12-21-2024 Basophils/100 WBC (Bld) 0.4 % 0-1 [facility] Bilirubin Test strip Ql (U)O rdered By: Aftab Mendoza on 12-21-2024 Bilirubin Ql (U) Negative Negative [facility] Bilirubin, totalOrdered By: Aftab Mendoza on 12-21-2024 Bilirubin [Mass/Vol] 0.26 mg/dL 0.00-1.30 [facility] CBC W/Diff, Automatedon 11-25 Absolute Lymph 1.91 X10 3/uL Normal 0.83-4.51 [facility] Comment on above: Performed By: #### L 100.0100 #### [facility] [address] [place], [address] Absolute Neut 7.6 X10 3/uL Normal 2.0-7.7 [facility] Comment on above: Performed By: #### L 100.0100 #### [facility] [address] [place], [address] Basophils/100 WBC (Bld) 0.4 % Normal 0-1 [facility] Comment on above: Performed By: #### L 100.0100 #### [facility] [address] [place], [address] Eosinophils/100 WBC (Bld) 1.4 % Normal 0-5 [facility] Comment on above: Performed By: #### L 100.0100 #### [facility] [address] [place], [address] Erythrocyte distribution width (RBC) [Ratio] 14.0 % Normal 11.6-14.6 [facility] Comment on above: Performed By: #### L 100.0100 #### [facility] [address] [place], [address] Hematocrit (Bld) [Volume fraction] 36.3 % Low 37-47 [facility] Comment on above: Performed By: #### L 100.0100 #### [facility] [address] [place], [address] Hemoglobin (Bld) [Mass/Vol] 12.5 g/dL Normal 12.0-15.0 [facility] Comment on above: Performed By: #### L 100.0100 #### [facility] [address] [place], [address] IG% 0.700 Normal 0.0-0.9 [facility] Comment on above: Result Comment: IG% - Immature Granulocytes (promyelocytes, myelocytes and metamyelocytes) > 1% indicates that a LEFT SHIFT is Present. Performed By: #### L 100.0100 #### [facility] [address] [place], [address] Lymphocytes/100 WBC (Bld) 18.4 % Low 19-41 [facility] Comment on above: Performed By: #### L 100.0100 #### [facility] [address] [place], [address] MCH (RBC) [Entitic mass] 30.3 pg Normal 27.0-32.0 [facility] Comment on above: Performed By: #### L 100.0100 #### [facility] [address] [place], [address] MCHC (RBC) [Mass/Vol] 34.4 g/dL Normal 32-36 [facility] Comment on above: Performed By: #### L 100.0100 #### [facility] [address] [place], [address] MCV (RBC) [Entitic vol] 88.1 fL Normal 81-99 [facility] Comment on above: Performed By: #### L 100.0100 #### [facility] [address] [place], [address] Monocytes/100 WBC (Bld) 6.2 % Normal 0-10 [facility] Comment on above: Performed By: #### L 100.0100 #### [facility] [address] [place], [address] Neutrophils/100 WBC (Bld) 72.9 % High 47-70 [facility] Comment on above: Performed By: #### L 100.0100 #### [facility] [address] [place], [address] Nucleated RBC (Bld) [#/Vol] 0 10*3/uL Normal 0-5 [facility] Comment on above: Performed By: #### L 100.0100 #### [facility] [address] [place], [address] Platelet mean volume (Bld) [Entitic vol] 9.1 fL Normal 6.2-12.0 [facility] Comment on above: Performed By: #### L 100.0100 #### [facility] [address] [place], [address] Platelets (Bld) [#/Vol] 248 10*3/uL Normal 150-450 [facility] Comment on above: Performed By: #### L 100.0100 #### [facility] [address] [place], [address] RBC (Bld) [#/Vol] 4.12 10*6/uL Low 4.2-5.4 [facility] Comment on above: Performed By: #### L 100.0100 #### [facility] [address] [place], [address] RDW SD 44.6 fl High 35.1-43.9 [facility] Comment on above: Performed By: #### L 100.0100 #### [facility] [address] [place], [address] WBC (Bld) [#/Vol] 10.4 10*3/uL Normal 4.4-11.0 [facility] Comment on above: Performed By: #### L 100.0100 #### [facility] [address] [place], [address] Carbon dioxide, total [Moles /volume] in Central venous bloodOrdered By: Aftab Mendoza on 12-21-2024 CO2 [Moles/Vol] 20.6 mmol/L Low 21.0-32.0 [facility] Chloride assayOrdered By: Travis Mendoza on 12-21-2024 Chloride [Moles/Vol] 103 mmol/L 98-108 [facility] Comprehensive Metabolic Prof ilon 12-21-2024 Albumin [Mass/Vol] 3.8 g/dL Normal 3.5-5.0 [facility] Comment on above: Performed By: #### L 500.4050 #### [facility] [address] [place], [address] Albumin/Globulin [Mass ratio] 1.5 {ratio} Normal 0.9-2.4 [facility] Comment on above: Performed By: #### L 500.4050 #### [facility] [address] [place], [address] ALK PHOS 44 U/L Normal 35-104 [facility] Comment on above: Performed By: #### L 500.4050 #### [facility] [address] [place], [address] ALT [Catalytic activity/Vol] 10 U/L Normal <=34 [facility] Comment on above: Performed By: #### L 500.4050 #### [facility] [address] [place], [address] AST [Catalytic activity/Vol] 16 U/L Normal <=31 [facility] Comment on above: Performed By: #### L 500.4050 #### [facility] [address] [place], [address] Bilirubin [Mass/Vol] 0.26 mg/dL Normal 0.00-1.30 [facility] Comment on above: Performed By: #### L 500.4050 #### [facility] [address] [place], [address] BUN/CRE 13.0 RATIO Normal 10-20 [facility] Comment on above: Performed By: #### L 500.4050 #### [facility] [address] [place], [address] Calcium [Mass/Vol] 9.0 mg/dL Normal 7.6-11.0 [facility] Comment on above: Performed By: #### L 500.4050 #### [facility] [address] [place], [address] Chloride [Moles/Vol] 103 mmol/L Normal 98-108 [facility] Comment on above: Performed By: #### L 500.4050 #### [facility] [address] [place], [address] CO2 [Moles/Vol] 20.6 mmol/L Low 21.0-32.0 [facility] Comment on above: Performed By: #### L 500.4050 #### [facility] [address] [place], [address] Creatinine [Mass/Vol] 0.54 mg/dL Low 0.70-1.20 [facility] Comment on above: Performed By: #### L 500.4050 #### [facility] [address] [place], [address] ECRCL 161.60 ml/min Normal 50-250 [facility] Comment on above: Performed By: #### L 500.4050 #### [facility] [address] [place], [address] GAP 13 Normal 5-15 [facility] Comment on above: Performed By: #### L 500.4050 #### [facility] [address] [place], [address] GFR/1.73 sq M.predicted among non-blacks MDRD (S/P/Bld) [Vol rate/Area] 135 mL/min/{1.73_m2} Normal >60 [facility] Comment on above: Result Comment: mL/m in/1.73m2 CKD-EPI Creatinine Equation (2020) Performed By: #### L 500.4050 #### [facility] [address] [place], [address] Globulin (S) [Mass/Vol] 2.6 g/dL Normal 2.2-4.2 [facility] Comment on above: Performed By: #### L 500.4050 #### [facility] [address] [place], [place], [id number] Glucose [Mass/Vol] 118 mg/dL High 70-99 [facility] Comment on above: Performed By: #### L 500.4050 #### [facility] [address] [place], [address] Potassium [Moles/Vol] 3.8 mmol/L Normal 3.3-5.1 [facility] Comment on above: Performed By: #### L 500.4050 #### [facility] [address] [place], [address] Sodium [Moles/Vol] 137 mmol/L Normal 133-145 [facility] Comment on above: Performed By: #### L 500.4050 #### [facility] [address] [place], [address] T PROT 6.5 g/dL Normal 5.9-8.4 [facility] Comment on above: Performed By: #### L 500.4050 #### [facility] [address] [place], [address] Urea nitrogen [Mass/Vol] 7 mg/dL Normal 4-19 [facility] Comment on above: Performed By: #### L 500.4050 #### [facility] [address] [place], [address] Emergency Department Summary on 12-21-2024 Emergency Department Summary [facility] Medical Records Department [address] [place] [address] Emergency Department Summary 12/21/24 MR#: [id number] Acct: [id number] Name: PAL NICHOLAS Rep #: [id number] : 2005 19 From: Aftab Mendoza DO [...] management. States that she is following with [facility]. Patient denies any vaginal spotting or bleeding. [facility] Medical History (Updated 12/21/24 @ 23:39 by [...] follow commands knew that she was at [facility] the year is 2024 Skin: Warm, dry, [...] of infection. Discussed the case with on-call [employer] for [facility] Dr. Aragon who states that she can [...] 72.9 H Lymph % (Auto) 18.4 L [place] % (Auto) 6.2 Eos % (Auto) 1.4 [...] Clarity Clear Urine pH 6.5 Ur Specific [place] 1.010 Urine Protein N (more content not included)... Normal [facility] Eosinophil percentageOrdered By: Aftab Mendoza on 12-21-2024 Eosinophils/100 WBC (Bld) 1.4 % 0-5 [facility] Erythrocyte distribution wid th ratioOrdered By: Aftab Mendoza on 12-21-2024 Erythrocyte distribution width (RBC) [Ratio] 14.0 % 11.6-14.6 [facility] Erythrocyte distribution wid th standard deviationOrdered By: Aftab Mendoza on 12-21-2024 Erythrocyte distribution width (RBC) [Ratio] 44.6 fl High 35.1-43.9 [facility] Glomerular filtration rate ( GFR) estimation/1.73 sq m using serum, plasma, or whole bOrdered By: Aftab Mendoza on 12-21-2024 GFR/1.73 sq M.predicted among non-blacks MDRD (S/P/Bld) [Vol rate/Area] 135 mL/min/{1.73_m2} >60 [facility] Comment on above: mL/min/1.73m2 CKD-EP I Creatinine Equation (2020) Hematocrit Auto (Bld) [Volum e fraction]Ordered By: Aftab Mendoza on 12-21-2024 Hematocrit (Bld) [Volume fraction] 36.3 % Low 37-47 [facility] Hemoglobin measurementOrdere d By: Aftab Mendoza on 12-21-2024 Hemoglobin (Bld) [Mass/Vol] 12.5 g/dL 12.0-15.0 [facility] Immature granulocytes/100 WB C Auto (Bld)Ordered By: Aftab Mendoza on 12-21-2024 Immature granulocytes/100 WBC (Bld) 0.700 % 0.0-0.9 [facility] Comment on above: IG% - Immature Granu locytes (promyelocytes, myelocytes and metamyelocytes) > 1% indicates that a LEFT SHIFT is Present. Ketones Test strip Ql (U)Ord ered By: Aftab Mendoza on 12-21-2024 Ketones Ql (U) Negative Negative [facility] - Chemistry and C hemistry - challengeOrdered By: Aftab Mendoza on 12-21-2024 AST [Catalytic activity/Vol] 16 U/L <32 [facility] MCV (mean corpuscular volume ) determinationOrdered By: Aftab Mendoza on 12-21-2024 MCV (RBC) [Entitic vol] 88.1 fL 81-99 [facility] Mean corpuscular hemoglobin (MCH) determinationOrdered By: Aftab Mendoza on 12-21-2024 MCH (RBC) [Entitic mass] 30.3 pg 27.0-32.0 [facility] Mean corpuscular hemoglobin concentration (MCHC) determinationOrdered By: Aftab Mendzoa on 12-21-2024 MCHC (RBC) [Mass/Vol] 34.4 g/dL 32-36 [facility] Mean platelet volume determi nationOrdered By: Aftab Mendoza on 12-21-2024 Platelet mean volume (Bld) [Entitic vol] 9.1 fL 6.2-12.0 [facility] Microscopic analysis of urin e for red blood cells (RBC)Ordered By: Aftab Mendoza on 12-21-2024 Microscopic analysis of urine for red blood cells (RBC) 0-5 SEEN /hpf 0-5 [facility] Monocyte percentageOrdered B y: Aftab Mendoza on 12-21-2024 Monocytes/100 WBC (Bld) 6.2 % 0-10 [facility] Mucus LM Ql (Urine sed)Order ed By: Aftab Mendoza on 12-21-2024 Mucus Ql (Urine sed) 0 SEEN /hpf [facility] Neutrophil percentageOrdered By: Aftab Mendoza on 12-21-2024 Neutrophils/100 WBC (Bld) 72.9 % High 47-70 [facility] Nitrite Test strip Ql (U)Ord ered By: Aftab Mendoza on 12-21-2024 Nitrite Ql (U) Negative Negative [facility] Nucleated red blood cell per centageOrdered By: Aftab Mendoza on 12-21-2024 Nucleated RBC/100 WBC (Bld) [Ratio] 0 % 0-5 [facility] Platelet countOrdered By: Travis Mendoza on 12-21-2024 Platelets (Bld) [#/Vol] 248 10*3/uL 150-450 [facility] Potassium measurement (mass/ volume)Ordered By: Aftab Mendoza on 12-21-2024 Potassium (Unsp spec) [Mass/Vol] 3.8 mmol/L 3.3-5.1 [facility] Protein Test strip Ql (U)Ord ered By: Aftab Mendoza on 12-21-2024 Protein Ql (U) Negative Negative [facility] RBC Auto (Bld) [#/Vol]Ordere d By: Aftab Mendoza on 12-21-2024 RBC (Bld) [#/Vol] 4.12 10*6/uL Low 4.2-5.4 [facility] Serum creatinine measurement (mass/volume)Ordered By: Aftab Mendoza on 12-21-2024 Creatinine [Mass/Vol] 0.54 mg/dL Low 0.70-1.20 [facility] Serum globulin measurementOr dered By: Aftab Mendoza on 12-21-2024 Globulin (S) [Mass/Vol] 2.6 g/dL 2.2-4.2 [facility] Serum glucose measurement (m ass/volume)Ordered By: Aftab Mendoza on 12-21-2024 Glucose [Mass/Vol] 118 mg/dL High 70-99 [facility] Serum or plasma alanine [place] otransferase (ALT) measurementOrdered By: Aftab Mendoza on 12-21-2024 ALT [Catalytic activity/Vol] 10 U/L <35 [facility] Serum or plasma albumin mak urement (mass/volume)Ordered By: Aftab Mendoza on 12-21-2024 Albumin [Mass/Vol] 3.8 g/dL 3.5-5.0 [facility] Serum or plasma albumin/glob ulin mass ratioOrdered By: Aftab Mendoza 12-21-2024 Albumin/Globulin [Mass ratio] 1.5 {ratio} 0.9-2.4 [facility] Serum or plasma alkaline cristofer sphatase measurementOrdered By: Aftab Mendoza on 12-21-2024 ALP [Catalytic activity/Vol] 44 U/L 35-104 [facility] Serum or plasma calcium mak urement (mass/volume)Ordered By: Aftab Mendoza on 12-21-2024 Calcium [Mass/Vol] 9.0 mg/dL 7.6-11.0 [facility] Serum or plasma urea nitroge n measurement (mass/volume)Ordered By: Aftab Mendoza on 12-21-2024 Urea nitrogen [Mass/Vol] 7 mg/dL 4-19 [facility] Sodium levelOrdered By: Chino Mendoza on 12-21-2024 Sodium [Moles/Vol] 137 mmol/L 133-145 [facility] Squamous epithelial cells de tection in urine sediment by light microscopyOrdered By: Aftab Mendoza on 12-21-2024 Epithelial cells.squamous LM Ql (Urine sed) 0-5 SEEN /hpf 5-10 [facility] Total proteinOrdered By: Gustavo Mendoza on 12-21-2024 Protein [Mass/Vol] 6.5 g/dL 5.9-8.4 [facility] Urinalysis, Completeon 12-21 EPI,SQUAMOUS 0-5 SEEN Normal 5-10 [facility] Comment on above: Order Comment: CLEAN CATCH Performed By: #### L 400.0001 #### [facility] [address] [place], [address] RBC 0-5 SEEN Normal 0-5 [facility] Comment on above: Order Comment: CLEAN CATCH Performed By: #### L 400.0001 #### [facility] [address] [place], [address] WBC 0-5 SEEN Normal 0-5 [facility] Comment on above: Order Comment: CLEAN CATCH Performed By: #### L 400.0001 #### [facility] [address] [place], [address] BACTERIA 0 SEEN Normal None Seen [facility] Comment on above: Order Comment: CLEAN CATCH Performed By: #### L 400.0001 #### [facility] [address] [place], [address] Mucus Ql (Urine sed) 0 SEEN Normal [facility] Comment on above: Order Comment: CLEAN CATCH Performed By: #### L 400.0001 #### [facility] [address] [place], [address] Urine clarityOrdered By: Gustavo Mendoza on 12-21-2024 Clarity (U) Clear Clear [facility] Urine color determinationOrd ered By: Aftab Mendoza on 12-21-2024 Color (U) Yellow Yellow [facility] Urine cultureOrdered By: Gustavo Mendoza on 12-21-2024 Bacteria identified Cx Nom (U) Positive Abnormal [facility] Urine glucose detectionOrder ed By: Aftab Mendoza on 12-21-2024 Glucose Ql (U) Normal mg/dl Normal [facility] Urine leukocyte esterase det ection by dipstickOrdered By: Aftab Mendoza on 12-21-2024 Leukocyte esterase Test strip Ql (U) Negative Negative [facility] Urine pHOrdered By: Aftab valentin on 12-21-2024 pH (U) 6.5 [pH] 5.0 - 8.0 [facility] Urine sediment bacteria coun t by microscopy (number/high power field)Ordered By: Aftab Mendoza on 12-21-2024 Bacteria LM.HPF (Urine sed) [#/Area] 0 /[HPF] None Seen [facility] Urine specific gravity measu rementOrdered By: Aftab Mendoza on 12-21-2024 Specific gravity (U) [Rel density] 1.010 1.002-1.030 [facility] Urine urobilinogen measureme ntOrdered By: Aftab Mendoza on 12-21-2024 Urobilinogen Ql (U) Normal mg/dl Normal [facility] White blood cell (WBC) count Ordered By: fAtab Mendoza on 12-21-2024 WBC (Bld) [#/Vol] 10.4 10*3/uL 4.4-11.0 [facility] White blood cell countOrdere d By: Aftab Mendoza on 12-21-2024 White blood cell count 0-5 SEEN /hpf 0-5 [facility] Landen 12-01-2024 CNPN Telephone (OGFVWE) SARAHY KAURPAL ([id number]) 3 F Date Time Provider Department 12/01/24 NURSE [employer] [facility] [place] [facility] During your visit today, we recorded the following information about you: Maria Alejandra Kay RN 12/01/2024 8:37 AM Signed ----- Message from Rica Pendleton sent at 11/30/2024 4:05 PM EDT ----- Regarding: New/MELVIN OB 16 weeks Patient has been identified by name and Date of : Yes Patient: Pal Garcia Sarahy Kaur Date of : 2005 Provider for this encounter : [facility] [employer] IN [employer] NANNY WSTR Reason for call: New OB patient (16 weeks as of 11/30/24), MELVIN from [place] Was an appointment scheduled: No Reason for requesting visit (RFV/signs and symptoms/diagnosis) : Establish with OB at [facility] for continuation of care. Person calling: self Return call to: self Call patient at: [phone] (cell), it is OK to leave message Payor: ANTHEM / Plan: BLUE CARD PPO OOS / Product Type: JENNIFERO / Maria Alejandra Cortes RN 12/01/2024 8:39 [...] and verified. Patient wishes to transfer to [facility] for OB care. AMARI? 05/31/25 Gestational age? 14w1d Patient aware to sign up for My Chart so she can receive the "care management specialist" messages. What facility is she transferring from? [facility] in [place] Moving to [place] in 2 weeks and will be approx [...] would the patient like to establish in? [place] Will route this encounter to the desired office. Maria Alejandra Kay RN Allergies As of Date: 12/01/2024 (Not on File) Date Reviewed: Never Reviewed Reason for Visit: Care Coordination [3491] Problem List As Of Date: 12/01/2024 (None) Encounter Status:Closed by MAGDA HAGEN on 12/02/24 Normal [facility] Vital Signs Date Time Vital Sign Value Performing Clinician Adina salmon 02-08-2025 10:33-0400 Body mass index (BMI) [Ratio] 27.57 kg/m2 Lynnette Tapia APRN.HUMPHREY Work Phone: [facility] 02-08-2025 10:33-0400 Body weight 79.83 kg Lynnette Tapia APRN.CNBarbara Work Phone: [facility] 02-08-2025 10:33-0400 Diastolic blood pressure 74 mm[Hg] Lynnette Tapia APRN.CNM Work Phone: [facility] 02-08-2025 10:33-0400 Systolic blood pressure 126 mm[Hg] Lynnette Tapia APRN.CNM Work Phone: [facility] 02-05-2025 15:26-0400 Diastolic blood pressure 78 mm[Hg] Dr. Aftab Mendoza DO Work Phone: [facility] 02-05-2025 15:26-0400 Heart rate 80 /min Dr. Aftab Mendoza DO Work Phone: 5(384)255-570014 [place] [address] 02-05-2025 15:26-0400 Systolic blood pressure 124 mm[Hg] Dr. Aftab Mendoza DO Work Phone: 9(176)960-831914 [place] [address] 02-05-2025 15:10-0400 Body temperature 99 [degF] Dr. Aftab Mendoza DO Work Phone: 3(856)220-576414 [place] [address] 02-05-2025 15:10-0400 Respiratory rate 16 /min Dr. Aftab Mendoza DO Work Phone: 8(115)129-705614 [place] [address] 02-05-2025 15:10-0400 SaO2% (BldA) [Mass fraction] 96 % Dr. Aftab Mendoza DO Work Phone: 9(554)297-735052 [place] [address] 02-04-2025 22:37-0400 Body temperature 99.4 [degF] Dr. Aftab Mendoza DO Work Phone: 4(624)965-437114 [place] [address] 02-04-2025 22:37-0400 Diastolic blood pressure 84 mm[Hg] Dr. Aftab Mendoza DO Work Phone: 5(887)881-735614 [place] [address] 02-04-2025 22:37-0400 Heart rate 92 /min Dr. Aftab Mendoza DO Work Phone: 5(376)897-480814 [place] [address] 02-04-2025 22:37-0400 Respiratory rate 16 /min Dr. Aftab Mendoza DO Work Phone: 5(643)961-407214 [place] [address] 02-04-2025 22:37-0400 Systolic blood pressure 129 mm[Hg] Dr. Aftab Mendoza DO Work Phone: 8(140)309-301614 [place] [address] 02-04-2025 22:23-0400 Body height 170.[address] Aftab Mendoza DO Work Phone: 8(003)075-665614 [place] [address] 02-04-2025 22:23-0400 Body mass index (BMI) [Ratio] 27.2 kg/m2 Dr. Aftab Mendoza DO Work Phone: 7(830)686-071314 [place] [address] 02-04-2025 22:23-0400 Body weight 78.[address] Aftab Mendoza DO Work Phone: [facility] 02-02-2025 21:12-0400 Body temperature 98.8 [degF] Dr. Aftab Mendoza DO Work Phone: 9(458)366-539414 [place] [address] 02-02-2025 21:12-0400 Diastolic blood pressure 78 mm[Hg] Dr. Aftab Mendoza DO Work Phone: [facility] 02-02-2025 21:12-0400 Heart rate 109 /min Dr. Aftab Mendoza DO Work Phone: 8(265)427-497814 [place] [address] 02-02-2025 21:12-0400 Respiratory rate 16 /min Dr. Aftab Mendoza DO Work Phone: 3(914)130-618280 [address] 02-02-2025 21:12-0400 SaO2% (BldA) [Mass fraction] 98 % Dr. Aftab Mendoza DO Work Phone: [facility] 02-02-2025 21:12-0400 Systolic blood pressure 123 mm[Hg] Dr. Aftab Mendoza DO Work Phone: [facility] 02-02-2025 21:07-0400 Body height 170.[address] Aftab Mendoza DO Work Phone: [facility] 02-02-2025 21:07-0400 Body mass index (BMI) [Ratio] 27.2 kg/m2 Dr. Aftab Mendoza DO Work Phone: 1(948)909-760214 [place] [address] 02-02-2025 21:07-0400 Body weight 78.[address] Aftab Mendoza DO Work Phone: [facility] 02-02-2025 14:04-0400 Body mass index (BMI) [Ratio] 27.41 kg/m2 Lester Phillips MD Work Phone: [facility] 02-02-2025 14:04-0400 Body weight 79.38 kg Lester Phillips MD Work Phone: [facility] 02-02-2025 14:04-0400 Diastolic blood pressure 78 mm[Hg] Lester Phillips MD Work Phone: [facility] 02-02-2025 14:04-0400 Systolic blood pressure 122 mm[Hg] Lester Phillips MD Work Phone: [facility] 01-20-2025 09:55-0400 Body mass index (BMI) [Ratio] 26.31 kg/m2 Karina Blanco MD Work Phone: [facility] 01-20-2025 09:55-0400 Body weight 76.2 kg Karina Blanco MD Work Phone: [facility] 01-20-2025 09:55-0400 Diastolic blood pressure 62 mm[Hg] Karina Blanco MD Work Phone: [facility] 01-20-2025 09:55-0400 Systolic blood pressure 116 mm[Hg] Karina Blanco MD Work Phone: [facility] 01-11-2025 15:00-0400 Body mass index (BMI) [Ratio] 25.34 kg/m2 Ramakrishna Corley MD Work Phone: [facility] 01-11-2025 15:00-0400 Body weight 73.39 kg Ramakrishna Colrey MD Work Phone: [facility] 01-11-2025 15:00-0400 Diastolic blood pressure 70 mm[Hg] Ramakrishna Corley MD Work Phone: [facility] 01-11-2025 15:00-0400 Systolic blood pressure 110 mm[Hg] Ramakrishna Corley MD Work Phone: [facility] 12-28-2024 08:46-0400 Body height 170.2 cm Lynnette Tapia APRN.CNM Work Phone: [facility] 12-28-2024 08:46-0400 Body mass index (BMI) [Ratio] 24.9 kg/m2 Lynnette Tapia BUSINESS PROCESS ANALYST.CNM Work Phone: [facility] 12-28-2024 08:46-0400 Body weight 72.12 kg Lynnette Tapia BUSINESS PROCESS ANALYST.CNM Work Phone: [facility] 12-28-2024 08:46-0400 Diastolic blood pressure 74 mm[Hg] Lynnette Tapia BUSINESS PROCESS ANALYST.CNM Work Phone: [facility] 12-28-2024 08:46-0400 Systolic blood pressure 114 mm[Hg] Lynnette Tapia BUSINESS PROCESS ANALYST.CNM Work Phone: [facility] 12-22-2024 00:00-0400 Heart rate 81 /min Dr. Aftab Mendoza DO Work Phone: [facility] 12-22-2024 00:00-0400 Respiratory rate 16 /min Dr. Aftab Mendoza DO Work Phone: [facility] 12-22-2024 00:00-0400 SaO2% (BldA) [Mass fraction] 98 % Dr. Aftab Mendoza DO Work Phone: [facility] 12-21-2024 23:57-0400 Body temperature 97.4 [degF] Dr. Aftab Mendoza DO Work Phone: [facility] 12-21-2024 23:57-0400 Diastolic blood pressure 58 mm[Hg] Dr. Aftab Mendoza DO Work Phone: [facility] 12-21-2024 23:57-0400 Systolic blood pressure 110 mm[Hg] Dr. Aftab Mendoza DO Work Phone: [facility] 12-21-2024 20:27-0400 Body height 170.[address] Aftab Mendoza DO Work Phone: 5(878)498-012014 [place] [address] 12-21-2024 20:27-0400 Body mass index (BMI) [Ratio] 24.4 kg/m2 Dr. Aftab Mendoza DO Work Phone: [facility] 12-21-2024 20:27-0400 Body weight 70.[address] Aftab Mnedoza DO Work Phone: [facility] Encounters Encounter Date Encounter Type Care Provider Facility Start: 02-08-2025 End: 02-08-2025 Patient encounter procedure Lynnette Tapia BUSINESS PROCESS ANALYST.CNM Work Phone: OB/Gynecology Comment on above: Encounter for superv ision of normal first in second trimester (HCC) (Primary Dx); 24 weeks gestation of (HCC); Screening for diabetes mellitus; Vaginal discharge during in second trimester (HCC) Start: 02-08-2025 End: 02-08-2025 ambulatory LYNNETTE TAPIA Facility:[facility] Start: 02-05-2025 End: 02-05-2025 Telephone encounter Lynnette Tapia BUSINESS PROCESS ANALYST.CNM Work Phone: OB/Gynecology Comment on above: Contractions Start: 02-04-2025 End: 02-05-[address] Aftab Mendoza DO Work Phone: [facility] Start: 02-04-2025 End: 02-05-[address] Ramakrishna Corley DO -[facility] Work Phone: Start: 02-02-2025 End: 02-02-2025 Patient encounter procedure Lester Phillips MD Work Phone: OB/Gynecology Comment on above: Vaginal discharge du ring , antepartum (HCC) (Primary Dx) Start: 02-02-2025 End: 02-02-2025 ambulatory Ramakrishna Corley MD Work Phone: OB/Gynecology Comment on above: Change in discharge/ a lot of [place] zaragoza Start: 01-20-2025 End: 01-20-2025 Patient encounter procedure Karina Blanco MD Work Phone: OB/Gynecology Comment on above: Encounter for superv ision of normal first in second trimester (HCC) (Primary Dx); Vaginal discharge; 21 weeks gestation of (HCC); Abdominal pain affecting (HCC) Start: 01-20-2025 End: 01-20-2025 ambulatory KARINA BLANCO Facility:[facility] Start: 01-19-2025 End: 01-20-2025 ambulatory Ramakrishna Corley MD Work Phone: OB/Gynecology Start: 01-19-2025 End: 01-20-2025 Follow-up encounter Ramakrishna Corley MD Work Phone: OB/Gynecology Comment on above: Follow up from ER Start: 01-18-2025 End: 01-19-2025 Emergency department patient visit NUZHAT GRANADOS MARIANNE Facility:[facility] Start: 01-18-2025 End: 01-20-2025 Telephone encounter Lynnette Tapia APRN.CNM Work Phone: OB/Gynecology Comment on above: Breast Pump Start: 01-14-2025 End: 01-14-2025 Telephone encounter Ramakrishna Corley MD Work Phone: OB/Gynecology Comment on above: Orders Start: 01-12-2025 End: 01-12-2025 ambulatory RAMAKRISHNA CORLEY Facility:[facility] Start: 01-11-2025 End: 01-11-2025 Patient encounter procedure Ramakrishna Corley MD Work Phone: OB/Gynecology Comment on above: Bacterial vaginosis (Primary Dx); 20 weeks gestation of ([facility]); Burning with urination; Palpitations; Other fatigue; Weakness; Encounter for supervision of normal first in second trimester ([facility]) POTS (postural ortho static tachycardia syndrome) (Primary Dx); Visit for screening ([facility]); 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[facility]); Chronic hypertension affecting ([facility]) Start: 01-11-2025 End: 01-11-2025 ambulatory LYNNETTE TAPIA Facility:[facility] Start: 01-07-2025 End: 01-12-2025 Telephone encounter Ej Rodriguez MD Work Phone: [facility] Comment on above: Appointment Start: 01-06-2025 End: 01-06-2025 Emergency department patient visit ALEXA DICKSON Facility:[facility] Start: 01-06-2025 End: 01-07-2025 Telephone encounter Karina Addison APRN.CNM Work Phone: OB/Gynecology Comment on above: OB Vaginal Pressure Start: 01-05-2025 End: 01-05-2025 Telephone encounter Jayla Keller MD Work Phone: [facility] Comment on above: OB Pain Start: 01-04-2025 End: 01-05-2025 ambulatory NUZHAT ZAMORANO Facility:[facility] Start: 01-04-2025 End: 01-21-2025 Telephone encounter Magda Aragon MD Work Phone: OB/Gynecology Comment on above: Low back aching/cram ping pelvic region Start: 12-30-2024 End: 12-30-[address] [facility] Facility:[facility] Start: 12-28-2024 End: 12-28-2024 Patient encounter procedure Lynnette Tapia BUSINESS PROCESS ANALYST.CNM Work Phone: OB/Gynecology Comment on above: Visit for s creening (HCC) (Primary Dx); 18 weeks gestation of (HCC); Encounter for supervision of high risk in second trimester, antepartum (HCC); 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HCC); POTS (postural orthostatic tachycardia syndrome); Cystic fibrosis carrier; Screening for STD (sexually transmitted disease); Abdominal pain during in second trimester ([facility]); Bacterial vaginosis Start: 12-28-2024 End: 12-28-[address] [facility] Facility:[facility] Start: 12-25-2024 End: 12-25-2024 Telephone encounter Lynnette Roxiearmida BUSINESS PROCESS ANALYST.CNM Work Phone: OB/Gynecology Comment on above: Received Outside Med ical Records Start: 12-22-2024 End: 12-22-2024 ambulatory MARK FOREMAN Facility:[facility] Start: 12-22-2024 End: 12-22-2024 Telephone encounter Karina Addison MD Work Phone: OB/Gynecology Comment on above: OB Pelvic Pain Start: 12-21-2024 End: 12-22-2024 Emergency department patient visit Dr. Aftab Mendoza DO Work Phone: -Emergency Department Work Phone: Start: 12-01-2024 End: 12-02-2024 Telephone encounter Nurse Fatback Trimmer [facility] Work Phone: Obstetrics/Gynecology Comment on above: Care Coordination Procedures Date Procedure Procedure Detail Performing Clinician Start: 02-08-2025 Urnls dip stick/tabl et rgnt auto w/o microscopy Lynnette Tapia BUSINESS PROCESS ANALYST.CNM Work Phone: Start: 02-08-2025 BACTERIAL VAGINOSIS NAAT Lynnette Tapia BUSINESS PROCESS ANALYST.CNM Work Phone: Start: 02-08-2025 [place] trichomonas vaginalis amplified probe tech Lynnette Tapia BUSINESS PROCESS ANALYST.CNM Work Phone: Start: 02-04-2025 Urnls dip stick/tabl et reagent auto microscopy Dr. Aftab Mendoza DO Work Phone: Start: 02-02-2025 Urnls dip stick/tabl et reagent auto microscopy Dr. Aftab Mendoza DO Work Phone: Start: 02-02-2025 Urnls dip stick/tabl et rgnt auto w/o microscopy Lester Phillips MD Work Phone: Start: 02-02-[address] Aftab Mendoza DO Work Phone: Start: 01-20-2025 BACTERIAL VAGINOSIS JOHNT Karina Blanco MD Work Phone: Start: 01-20-2025 Iadna trichomonas vaginalis amplified probe tech Karina Blanco MD Work Phone: Start: 01-11-2025 Us preg uterus after 1st trimest 05/27 gestation Lynnette Tapia BUSINESS PROCESS ANALYST.CNM Work Phone: Start: 01-11-2025 Urnls dip stick/tabl [...] Scree hernando (18-24) GC (Gonorrhea) Screening (18-24) [facility] Start: 01-06-2026 Screening for Chlamy eva trachomatis Chlamydia Screening () [facility] Start: 04-05-2025 RSV Vaccine (1 - Ris k 1-dose series) RSV Vaccine (1 - Risk 1-dose series) [facility] Start: 03-11-2025 End: 03-11-2025 Patient encounter procedure Maternal Medicine Comment on above: Growth Growth/OB Start: 03-11-2025 End: 03-11-2025 ambulatory 03/11/2025 9:45 AM EDT Results Only [facility] [address] [place], [place] [address] Glucose Test [facility] Comment on above: Glucose Test Start: 03-08-2025 End: 03-08-2025 Patient encounter procedure 03/08/2025 9:20 AM EDT Office Visit [facility] General Cardiology [address] [place], [place] [address] Reggie Hook MD [address] [place], [place] [id number] est care, hx EDS and POTS, EKG non-specific ST-T wave abnormality, currently . MS/ EKG kk [facility] General Cardiology [place] Comment on above: est care, hx EDS and POTS, EKG non-specific ST-T wave abnormality, currently . MS/ EKG kk Start: 02-08-2025 End: 05-10-2025 ANEMIA REFLEX PANEL ANEMIA REFLEX PANEL Lab Routine Encounter for supervision of normal first in second trimester (HCC) 24 weeks gestation of (HCC) Expected: 02/08/2025, Expires: 05/10/2025 [facility] Comment on above: Expected: 02/08/2025 , Expires: 05/10/2025 Start: 02-08-2025 End: 02-08-2026 GESTATIONAL GLUCOSE SCREEN, 1-HOUR, 50 GRAM, NON-FASTING GESTATIONAL GLUCOSE SCREEN, 1-HOUR, 50 GRAM, NON-FASTING Lab Routine Encounter for supervision of normal first in second trimester (HCC) 24 weeks gestation of (HCC) Screening for diabetes mellitus Expected: 02/08/2025, Expires: 02/08/2026 [facility] Work Phone: Comment on above: Expected: 02/08/2025 , Expires: 02/08/2026 Start: 02-08-2025 End: 02-08-2026 SYPHILIS TREPONEMAL W/REFLEX SYPHILIS TREPONEMAL W/REFLEX Lab Routine Encounter for supervision of normal first in second trimester (HCC) 24 weeks gestation of (HCC) Expected: 02/08/2025, Expires: 02/08/2026 [facility] Comment on above: Expected: 02/08/2025 , Expires: 02/08/2026 Start: 02-08-2025 End: 02-08-2025 Patient encounter procedure 02/08/2025 10:30 AM EDT Routine Office Visit OB/Gynecology [address] [place] [address] Lynnette Tapia APRN.[facility] [address] [place] [address] LMP:08/24/24, New 1st OB 12/28/24 OB/Gynecology Comment on above: LMP:08/24/24, New 1st OB 12/28/24 Start: 02-05-2025 End: 02-05-2025 Patient encounter procedure [facility] Comment on above: est care, hx EDS and POTS, EKG non-specific ST-T wave abnormality, currently . MS est care, hx EDS and POTS, EKG non-specific ST-T wave abnormality, currently . MS/ EKG kk Start: 02-05-2025 [facility] Start: 02-05-2025 Patient discharge [facility] Start: 02-04-2025 Nonstress test [facility] Start: 02-04-2025 Obstetric monitoring [facility] Start: 02-04-2025 Vital signs measurements [facility] Start: 02-04-2025 [facility] Start: 02-04-2025 Bacteria identified in Urine by Culture Urine Culture [facility] Start: 02-02-2025 End: 02-02-2025 [facility] Start: 02-02-2025 Nonstress test [facility] Start: 02-02-2025 Obstetric monitoring [facility] Start: 02-02-2025 Vital signs measurements [facility] Start: 02-02-2025 [facility] Start: 02-02-2025 Bacteria identified in Urine by Culture Urine Culture [facility] Start: 02-02-2025 Patient discharge [facility] Start: 01-28-2025 End: 01-28-2025 Patient encounter procedure 01/28/2025 10:00 AM EDT Routine Office Visit OB/Gynecology [address] [place] [address] Magda Aragon MD [address] [place] [address] LMP:08/24/24, New 1st OB 12/28/24 OB/Gynecology Comment on above: LMP:08/24/24, New 1st OB 12/28/24 Start: 01-25-2025 Influenza vaccination Influenza Vacc ine (#1) [facility] Start: 01-11-2025 End: 01-11-2025 Patient encounter procedure Maternal Medicine Comment on above: Anatomy Anatomy/OB Start: 01-11-2025 End: 04-12-2025 TSH W/REFLEX FT4 TSH W/REFLEX FT4 Lab Routine Palpitations Other fatigue Weakness Expected: 01/11/2025, Expires: 04/12/2025 [facility] Comment on above: Expected: 01/11/2025 , Expires: 04/12/2025 Start: 12-28-2024 End: 12-28-2025 OBSTETRIC ULTRASOUND WHI OBSTETRIC ULTRASOUND WHI Anc Imaging Routine Visit for screening (HCC) Expected: 12/28/2024, Expires: 12/28/2025 [facility] Work Phone: Comment on above: Expected: 12/28/2024 , Expires: 12/28/2025 Start: 12-28-2024 End: 12-28-2024 Patient encounter procedure OB/Gynecology Comment on above: LMP:08/24/24 LMP:08/24/24 - record s in chart prep binder Start: 12-21-2024 [facility] Start: 12-21-2024 [facility] Start: 12-21-2024 Bacteria identified in Urine by Culture Urine Culture [facility] Start: 01-26-2024 Covid-19 Vaccine ( season) Covid-19 Vaccine ( season) [facility] Start: 11-25-2023 Hepatitis B Vaccine (1 of 3 - 19+ 3-dose series) Hepatitis B Vaccine (1 of 3 - 19+ 3-dose series) [facility] Start: 11-25-2023 Urine microalbumin profile DTaP,Tdap,Td Vaccine (1 - Tdap) [facility] Start: 2022 Anxiety Screening Anxiety Screening [facility] Start: 2022 Depression Screening Depression Scre ening [facility] Start: 2022 GC (Gonorrhea) Scree hernando (18-24) GC (Gonorrhea) Screening (18-24) [facility] Start: 2022 Hepatitis C screening Hepatitis C Sc reening [facility] Start: 2022 HIV screening HIV Screening [facility] Start: 2022 Screening for Chlamy eva trachomatis Chlamydia Screening (18-24) [facility] Start: 2020 Meningococcal B Vacc ine (1 of 2 - Standard) Meningococcal B Vaccine (1 of 2 - Standard) [facility] Start: 11-25-2019 HPV Vaccine (1 - 3-d ose series) HPV Vaccine (1 - 3-dose series) [facility] Start: 2018 Peds To Adult Transi tion Annual Assessment Peds To Adult Transition Annual Assessment [facility] Start: 2016 Peds To Adult Transi tion Initial Discussion Peds To Adult Transition Initial Discussion [facility] Bacteria identified in Urine by Culture BACTERIAL CULTURE, URINE Microbiology Routine Burning with urination Ordered: 01/11/2025 [facility] Comment on above: Ordered: 01/11/2025 Bacteria identified in Urine by Culture BACTERIAL CULTURE, URINE Microbiology Routine Vaginal discharge during in second trimester ([facility]) 02/08/2025 11:17 AM EDT [facility] BACTERIAL VAGINOSIS NAAT BACTERI AL VAGINOSIS NAAT Lab Routine Visit for screening ([facility]) 12/28/2024 11:27 AM EDT [facility] BACTERIAL VAGINOSIS NAAT BACTERI AL VAGINOSIS NAAT Lab Routine Bacterial vaginosis Ordered: 01/11/2025 [facility] Work Phone: Comment on above: Ordered: 01/11/2025 PARVEEN/TRICHOMONAS NAAT PARVEEN /TRICHOMONAS NAAT Lab Routine Visit for screening ([facility]) 12/28/2024 11:27 AM EDT [facility] PARVEEN/TRICHOMONAS NAAT PARVEEN /TRICHOMONAS NAAT Lab Routine Bacterial vaginosis Ordered: 01/11/2025 [facility] Comment on above: Ordered: 01/11/2025 Patient Education Kick Counts ED False Labor OB Triage: Return to Hospital or Notify Physician if you Experience: [facility] Work Phone: Urine culture [facility] Urine culture [facility] Urine culture [facility] Payers Date Payer Category Payer Self-pay 2023 [employer] Blue [employer] BLUE CARD PPO OOS Member Subscriber Plan / Payer (Effective 2023-Present) Name: PAL NICHOLAS Relation to Subscriber: Child Name: EJ BARRERA Date of : 1981 (Home) Address: [address] [place] [id number] Payer ID: [id number] (NAIC) Type: PPO Address: [facility] [address] [place] [id number] 2023 Unknown [id number] Unknown [id number] Unknown [id number] Unknown [id number] Social History Date Type Detail Facility Tobacco smoking stat us NHIS Tobacco smoking consumption unknown [facility] Start: 2005 Sex assigned at Not on file [facility] Start: 12-28-2024 End: 01-11-2025 Gender identity Not on file [facility] Start: 12-21-2024 End: 12-28-2024 Tobacco smoking status INIS Never smoked tobacco (finding) [facility] Start: 2005 Sex Assigned At Female [facility] Start: 09-07-2024 [facility] Start: 12-28-2024 Tobacco use and exposure Smokeless tobacco non-user [facility] Start: 12-28-2024 End: 01-11-2025 History of Social function [facility] Start: 11-30-2024 Adult Depression Screening Assessment 0 [facility] Goals Date Patient Goal Desired Activity /State Personal health goal Personal health goal Functional Status Date Assessment Result Facility 01-19-2025 Are you deaf, or do you have serious difficulty hearing No 01/19/2025 3:40 AM Armida Owens RN No [facility] 01-19-2025 Are you blind, or do you have serious difficulty seeing, even when wearing glasses No 01/19/2025 3:40 AM Armida Owens RN No [facility] 01-19-2025 Do you have serious difficulty walking or climbing stairs No 01/19/2025 3:40 AM Armida Owens RN No [facility] 01-19-2025 Do you have difficul ty dressing or bathing No 01/19/2025 3:40 AM Armida Owens RN No [facility] 01-19-2025 Because of a physica l, mental, or emotional condition, do you have difficulty doing errands alone such as visiting a physician's office or shopping No 01/19/2025 3:40 AM EDT Armida Neves RN No [facility] 01-06-2025 Are you deaf, or do you have serious difficulty hearing No 01/06/2025 10:25 PM Benita Yeager RN No [facility] 01-06-2025 Are you blind, or do you have serious difficulty seeing, even when wearing glasses No 01/06/2025 10:25 PM Benita Yeager, LEVON No [facility] 01-06-2025 Do you have serious difficulty walking or climbing stairs No 01/06/2025 10:25 PM Benita Yeager RN No [facility] 01-06-2025 Do you have difficul ty dressing or bathing No 01/06/2025 10:25 PM Benita Yeager RN No [facility] 01-06-2025 Because of a physica l, mental, or emotional condition, do you have difficulty doing errands alone such as visiting a physician's office or shopping No 01/06/2025 10:25 PM Benita Yeager RN No [facility] 01-05-2025 Are you deaf, or do you have serious difficulty hearing No 01/05/2025 2:21 AM Ayanna Price, LEVON No [facility] 01-05-2025 Are you blind, or do you have serious difficulty seeing, even when wearing glasses No 01/05/2025 2:21 AM Ayanna Price, LEVON No [facility] 01-05-2025 Do you have serious difficulty walking or climbing stairs No 01/05/2025 2:21 AM Ayanna Price, LEVON No [facility] 01-05-2025 Do you have difficul ty dressing or bathing No 01/05/2025 2:21 AM Ayanna Price, LEVON No [facility] 01-05-2025 Because of a physica l, mental, or emotional condition, do you have difficulty doing errands alone such as visiting a physician's office or shopping No 01/05/2025 2:21 AM Ayanna Price RN No [facility] 12-22-2024 Are you deaf, or do you have serious difficulty hearing No 12/22/2024 9:46 PM Armida Rodriguez RN No [facility] 12-22-2024 Are you blind, or do you have serious difficulty seeing, even when wearing glasses No 12/22/2024 9:46 PM Armida Rodriguez RN No [facility] 12-22-2024 Do you have serious difficulty walking or climbing stairs No 12/22/2024 9:46 PM Armida Rodriguez RN No [facility] 12-22-2024 Do you have difficul ty dressing or bathing No 12/22/2024 9:46 PM Armida Rodriguez RN No [facility] 12-22-2024 Because of a physica l, mental, or emotional condition, do you have difficulty doing errands alone such as visiting a physician's office or shopping No 12/22/2024 9:46 PM Armida Rodriguez RN No [facility] Mental Status Date Assessment Result Facility 01-19-2025 Because of a physica l, mental, or emotional condition, do you have serious difficulty concentrating, remembering, or making decisions No 01/19/2025 3:40 AM Armida Owens RN No [facility] 01-06-2025 Because of a physica l, mental, or emotional condition, do you have serious difficulty concentrating, remembering, or making decisions No 01/06/2025 10:25 PM Benita Yeager RN No [facility] 01-05-2025 Because of a physica l, mental, or emotional condition, do you have serious difficulty concentrating, remembering, or making decisions No 01/05/2025 2:21 AM Ayanna Price RN No [facility] 12-22-2024 Because of a physica l, mental, or emotional condition, do you have serious difficulty concentrating, remembering, or making decisions No 12/22/2024 9:46 PM Armida Rodriguez RN No [facility] Clinical Notes 12-01-2024 to 02-08-2025 Quick Notes - Lynnette Tapia APRN.CNM - 02/08/2025 10:40 AM EDTPrenatal Quick Notes - Lynnette Tapia APRN.CNM - 02/08/2025 10:40 AM EDT Note Date & Type Note Facility 02-08-2025 Progress note Formatting of t his note might be different from the original. S: Pal Nicholas is a 19 year old female who presents at 24 weeks gestation for a routine visit. Seen last week 3x in L&D for continued cramps/contractions. No cervical change. Currently being treated with Macrobid pending urine culture. Reports vaginal discharge as yellow, green specs and increased watery discharge. Requesting swab today for testing. Denies headache, visual changes, chest pain, shortness of breath, vaginal bleeding, leakage of fluid, or dysuria. O: See flow sheet Gen: No apparent distress Abd: Gravid, non tender PRODUCTION POSTING CLERK- small amount of yellow / white discharge in vaginal vault CE visually closed ASSESSMENT/PLAN: 1. Encounter for supervision of normal first in second trimester 2. 24 weeks gestation of 3. Screening for diabetes mellitus 4. Vaginal discharge in - BACT/YEAST- collected and sent - Reviewed normal findings in - Suspect confusion between round ligament pain vs. Contractions? - Reviewed continuation of increasing fluid intake- electrolytes - PTL precautions and when to call office reviewed - RTO 4 weeks for DYLON, Growth US and GCT- process reviewed and planning Fresh Test Lynnette Tapia APRN.CNM [facility] 02-08-2025 Miscellaneous Notes Formattin g of this note might be different from the original. S: Pal Nicholas is a 19 year old female who presents at 24 weeks gestation for a routine visit. Seen last week 3x in L&D for continued cramps/contractions. No cervical change. Currently being treated with Macrobid pending urine culture. Reports vaginal discharge as yellow, green specs and increased watery discharge. Requesting swab today for testing. Denies headache, visual changes, chest pain, shortness of breath, vaginal bleeding, leakage of fluid, or dysuria. O: See flow sheet Gen: No apparent distress Abd: Gravid, non tender PRODUCTION POSTING CLERK- small amount of yellow / white discharge in vaginal vault CE visually closed ASSESSMENT/PLAN: 1. Encounter for supervision of normal first in second trimester 2. 24 weeks gestation of 3. Screening for diabetes mellitus 4. Vaginal discharge in - BACT/YEAST- collected and sent - Reviewed normal findings in - Suspect confusion between round ligament pain vs. Contractions? - Reviewed continuation of increasing fluid intake- electrolytes - PTL precautions and when to call office reviewed - RTO 4 weeks for DYLON, Growth US and GCT- process reviewed and planning Fresh Test Lynnette Tapia APRN.CNM documented in this encounter [facility] 02-05-2025 History and physical note Note Date/Time February 05, 2025 5:47pm [facility] Medical Records Department [address] [place] [address] OB Triage Physician Note 02/05/25 1742 MR#: [id number] Acct: [id number] Name: PAL NICHOLAS Rep #:[id number] : 2005 19 From: Lynnette Tapia CNM PCP: Care Physician,No Primary Status :REG CLI Y Location: [address] HPI - General General Chief Complaint: ctx's HPI Narrative PAL NICHOLAS, is a 19 F at 23 weeks gestation who presents back to triage for cramping. Seen and evaluated last night in triage and started on Macrobid 100 mg PO BID for UTI. Maternal Data Information AMARI Calculator Estimated Delivery Date Method Current WG Current Estimate 05/31/25 Manual 23w 4d [facility] Medical History (Updated 02/05/25 @ 00:[address] Ramakrishna Corley, DO) POTS (postural orthostatic tachycardia syndrome) Myles-Danlos syndrome Home Medications ?Medication ?Instructions ?Recorded ?Last Taken ?Type aspirin 81 mg capsule 81 mg PO DAILY 02/02/2501/25 20:00 History 81 mg vit no.95-ferrous 1 tab PO DAILY 02/02/2503/20 20:00 History fumarate 28 mg-folic acid 800 mcg 1 TA B tablet () nitrofurantoin 100 mg PO BID 7 days #13 cap s 02/05/25 Unknown Rx monohydrate/macrocrystals 100 mg capsule (Macrobid) Allergy/AdvReac Type Severity Reaction Status Date / Time No Known Allergies Allergy Verified 02/05/25 15:30 Social History Smoking Status: Never smoker History 1 Elective abortions Hx Para 0 Spontaneous abortions Hx # Term Pregnancies Ectopic pregnancies Hx # Pregnancies Multiple births # of living children Assessment & Plan (1) Dysuria: (2) Suprapubic pain: (3) History of UTI: (4) [place]' contraction: COMMENT: cervix closed (5) 23 weeks gestation of : PLAN: Plan Positive movements Increase fluids CE - closed/ unchanged Continue taking Macrobid 100 mg Po BID- did not take dose today D/C home with follow up in office 02/05/251746 <Electronically signed by Lynnette huffman CNM> Date _ Lynnette Tapia CNM Cosigner Signature (if applicable): Date CC: HUMPHREY Tapia; No Primary Care Physician ~ Signed [facility] Work Phone: 1(388) 195-999009-12-2025 History and physical note [facility] Medical Records Department [address] [place] [address] OB Triage Physician Note 02/05/25 1742 MR#: [id number] Acct: [id number] Name: SARAHY KAURDYLONDALE SOLORZANOE Rep #:[id number] : 2005 19 From: Lynnette Tapia CNM PCP: Care Physician,No Primary Status :REG CLI Y Location: [place] [address] HPI - General General Chief Complaint: ctx's HPI Narrative PLA SARAHY KAUR, is a 19 F at 23 weeks gestation who presents back to triage for cramping. Seen and evaluated last night in triage and started on Macrobid 100 mg PO BID for UTI. Maternal Data Information AMARI Calculator Estimated Delivery Date Method Current WG Current Estimate 05/31/25 Manual 23w 4d [facility] COUNTS INCLUDE 234 BEDS AT [facility] Medical History (Updated 02/05/25 @ 00:[address] Ramakrishna Corley, DO) POTS (postural orthostatic tachycardia syndrome) Myles-Danlos syndrome Home Medications ?Medication ?Instructions ?Recorded ?Last Taken ?Type aspirin 81 mg capsule 81 mg PO DAILY 02/02/2501/25 20:00 History 81 mg vit no.95-ferrous 1 tab PO DAILY 02/02/2503/20 20:00 History fumarate 28 mg-folic acid 800 mcg 1 TA B tablet () nitrofurantoin 100 mg PO BID 7 days #13 cap s 02/05/25 Unknown Rx monohydrate/macrocrystals 100 mg capsule (Macrobid) Allergy/AdvReac Type Severity Reaction Status Date / Time No Known Allergies Allergy Verified 02/05/25 15:30 Social History Smoking Status: Never smoker History 1 Elective abortions Hx Para 0 Spontaneous abortions Hx # Term Pregnancies Ectopic pregnancies Hx # Pregnancies Multiple births # of living children Assessment & Plan (1) Dysuria: (2) Suprapubic pain: (3) History of UTI: (4) [place]' contraction: COMMENT: cervix closed (5) 23 weeks gestation of : PLAN: Plan Positive movements Increase fluids CE - closed/ unchanged Continue taking Macrobid 100 mg Po BID- did not take dose today D/C home with follow up in office 02/05/25 [id number] ts CNM> Date _ Lynnette Swartzignzofia Signature (if applicable): Date CC: HUMPHREY [employer]; No Primary Care Physician ~ Signed [facility]09-12-2025 Telephone encounter Note* Telephone Encounter - Jocelyne Black RN - 02/05/2025 2:14 PM EDT Patient 23w4d calling stating she is having contractions every 5-7 minutes and lasting around a minute. Patient states when she is walking around contractions increase in pain. Patient states she hasn't felt the baby move and previously baby was active. Denies any bleeding or leaking of fluid. Patient advised to go to L&D for evaluation. L&D notified. Jocelyne Black RN [facility]09-12-2025 Miscellaneous Notes* Telephone Encounter - Jocelyne Black RN - 02/05/2025 2:14 PM EDT Patient 23w4d calling stating she is having contractions every 5-7 minutes and lasting around a minute. Patient states when she is walking around contractions increase in pain. Patient states she hasn't felt the baby move and previously baby was active. Denies any bleeding or leaking of fluid. Patient advised to go to L&D for evaluation. L&D notified. Jocelyne Black RN [facility] History and physical note Author Ramakrishna Corley [facility] Note Date/Time February 05, 2025 12:03am [facility] Medical Records Department [address] [place] [address] OB Triage Physician Note 02/04/25 4135 MR#: [id number] Acct: [id number] Name: PAL NICHOLAS Rep #: : 2005 19 From: Ramakrishna Corley DO PCP: Care Physician,No Primary Status :REG CLI Y Location: [place] [address] HPI - General General Date of Service: 02/04/25 Chief Complaint: ctx's HPI Narrative PAL NICHOLAS, is a 19 F who presents ctx's. She states she has had contractions and abdominal pain for 1-2 weeks. Went to [facility] 2 weeks agofor this and had a CT scan done showing thickening on bladders suggestive of cystitis and a non obstructing kidney stone. States she was on an antibiotic at that time for UTI. Reports multiple UTI's prior to the as well. She was on antibiotics for a UTI when she found out she was . She has supra pubic pain today, off and on dysuria, and difficulty feeling like she can empty her bladder. Denies fevers, chills, vomiting. Tolerating PO. No vb or lof. No constipation or diarrhea. [facility] Medical History (Updated 02/05/25 @ 00:[address] Ramakrishna Corley DO) POTS (postural orthostatic tachycardia syndrome) Myles-Danlos syndrome Home Medications ?Medication ?Instructions ?Recorded ?Last Taken ?Type aspirin 81 mg capsule 81 mg PO DAILY 02/02/2501/25 20:00 History 81 mg vit no.95-ferrous 1 tab PO DAILY 02/02/2503/20 20:00 History fumarate 28 mg-folic acid 800 mcg 1 TA B tablet () Allergy/AdvReac Type Severity Reaction Status Date / Time No Known Allergies Allergy Verified 02/04/25 22:31 Social History Smoking Status: Never smoker History 1 Elective abortions Hx Para 0 Spontaneous abortions Hx # Term Pregnancies Ectopic pregnancies Hx # Pregnancies Multiple births # of living children Physical Exam Const alert and no apparent distress Constitutional Narrative: Patient is resting comfortably and does not appear to be in pain General Appearance: comfortable GI soft to palpation and non-distended GI Narrative: Non acute. +Supra pubic tenderness Narrative: Cervix closed, thick, high Assessment & Plan (1) 23 weeks gestation of : (2) [place] Zar[place]' contraction: COMMENT: cervix closed PLAN: Cervix is closed thick and long. Patient is comfortable appearing. Do no suspect PTL at this time (3) History of UTI: (4) Suprapubic pain: PLAN: Urine +leuk esterase. Urine cx in process from 2 days ago. Will start Macrobid tonight and follow up on urine cx (5) Dysuria: 02/05/25 0003 <Electronically signed by Ramakrishna Corley DO> Date _ Ramakrishna Corley DO Cosigner Signature (if applicable): Date CC: Dr. Ramakrishna Corley DO; No Primary Care Physician ~ Signed [facility] Work Phone: 1(444) 720-413509-12-2025 History and physical note [facility] Medical Records Department [address] [place] [address] OB Triage Physician Note 02/04/25 0383 MR#: [id number] Acct: [id number] Name: PAL NICHOLAS Rep #: : 2005 19 From: Ramakrishna Corley DO PCP: Care Physician,No Primary Status :REG CLI Y Location: [address] [facility] General Date of Service: 02/04/25 Chief Complaint: ctx's HPI Narrative PAL NICHOLAS, is a 19 F who presents ctx's. She states she has had contractions and abdominalpain for 1-2 weeks. Went to [facility] 2 weeks agofor this and had a CT scan done showing thickening on bladders suggestive of cystitis and a non obstructing kidney stone. States she was on an antibiotic at that time for UTI. Reports multiple UTI's prior to the as well. She was on antibiotics for a UTI when she found out she was . She has supra pubic pain today, off and on dysuria, and difficulty feeling like she can empty her bladder. Denies fevers, chills, vomiting. Tolerating PO. No vb or lof. No constipation or diarrhea. [facility] Medical History (Updated 02/05/25 @ 00:[address] Ramakrishna Corley DO) POTS (postural orthostatic tachycardia syndrome) Myles-Danlos syndrome Home Medications ?Medication ?Instructions ?Recorded ?Last Taken ?Type aspirin 81 mg capsule 81 mg PO DAILY 02/02/2501/25 20:00 History 81 mg vit no.95-ferrous 1 tab PO DAILY 02/02/2503/20 20:00 History fumarate 28 mg-folic acid 800 mcg 1 TA B tablet () Allergy/AdvReac Type Severity Reaction Status Date / Time No Known Allergies Allergy Verified 02/04/25 22:31 Social History Smoking Status: Never smoker History 1 Elective abortions Hx Para 0 Spontaneous abortions Hx # Term Pregnancies Ectopic pregnancies Hx # Pregnancies Multiple births # of living children Physical Exam Const alert and no apparent distress Constitutional Narrative: Patient is resting comfortably and does not appear to be in pain General Appearance: comfortable GI soft to palpation and non-distended GI Narrative: Non acute. +Supra pubic tenderness Narrative: Cervix closed, thick, high Assessment & Plan (1) 23 weeks gestation of : (2) [place]' contraction: COMMENT: cervix closed PLAN: Cervix is closed thick and long. Patient is comfortable appearing. Do no suspect PTL at this time (3) History of UTI: (4) Suprapubic pain: PLAN: Urine +leuk esterase. Urine cx in process from 2 days ago. Will start Macrobid tonight and follow up on urine cx (5) Dysuria: 02/05/25 0003 DO> Date _ Ramakrishna Corley DO Cosigner Signature (if applicable): Date CC: Dr. Ramakrishna Corley, ; No Primary Care Physician ~ Signed [facility]09-09-2025 History and physical note [facility] Medical Records Department [address] [place] [address] OB Triage Physician Note 02/02/25 1286 MR#: [id number] Acct: [id number] Name: PAL NICHOLAS Rep #:[id number] : 2005 19 From: Magda Aragon MD PCP: Care Physician,No Primary Status :REG CLI Y Location: [place] [address] HPI - General General Date of Admission: 02/02/25 Date of Service: 02/02/25 Chief Complaint: cramping HPI Narrative PAL NICHOLAS, is a 19 F who presents cramping. No bleeding. Some movement.Was seen in office today with normal discharge. Maternal Data Information Final AMARI: 05/31/25 Gestational age: 22 PFSH COUNTS INCLUDE 234 BEDS AT THE [facility] Medical History (Updated 02/02/25 @ 23:38 by [...] (1) 23 weeks gestation of : (2) [place] Zaragoza' contraction: COMMENT: cervix closed 02/02/25 9133 in MD> Date _ Magda Aragon MD Cosigner Signature (if applicable): Date CC: Dr. Magda Aragon MD; No Primary Care Physician ~ Signed [facility]09-09-2025 Evaluation note* Diagnosis Onset Date Resolution Status Admit Date 23 weeks gestation of acute February 02, 025 8:50pm [place]' contraction acute February 02, 2025 8:50pm [facility] Work Phone: 1(130) 284-548809-09-2025 Evaluation note* Diagnosis Onset Date Resolution Status Admit Date 23 weeks gestation of acute February 02, 025 8:50pm [place]' contraction acute February 02, 2025 8:50pm 23 weeks gestation of acute February 04, 2025 10:13pm [place]' contraction acute February 04, 2025 10:13pm Dysuria acute January 10:13pm History of UTI acute February 04, 2025 10:13pm Suprapubic pain acute February 04, 2025 10:13pm [facility] Work Phone: 1(235) 538-782309-09-2025 Miscellaneous Notes* Quick Notes - Lester Phillips MD - 02/02/2025 2:25 PM EDT KJ - S: Pal denies contractions or vaginal bleeding. Patient reports increased discharge with possible LOF. Also would like checked for a UTI,. O: 23w1d, see flow sheet SENSITIVE EXAM: The sensitive examination was discussed with the Patient or Patient's Authorized Fitting Room Supervisor. As applicable, any other physician, advance practice provider, medical student, or other health professional student that will be observing or involved in the sensitive examination for educational or training purposes was discussed with the Patient or Authorized Fitting Room Supervisor. The Patient or Authorized Fitting Room Supervisor has agreed to proceed with the sensitive examination. (Sensitive examination includes inspection and/or palpation of the breasts, pelvis, prostate and anorectal regions). SSE: normal vagina, cervix closed negative pool/fern/nitrazine A/P: Assessment & Plan Vaginal discharge during , antepartum (HCC) Orders: UA DIP, URINE (POC) Patient reassured on normal vaginal discharge. Follow up as scheduled. Lester Phillips MD [facility] Progress note* Quick Notes - Lester Phillips MD - 02/02/2025 2:25 PM EDT KJ - S: Pal denies contractions or vaginal bleeding. Patient reports increased discharge with possible LOF. Also would like checked for a UTI,. O: 23w1d, see flow sheet SENSITIVE EXAM: The sensitive examination was discussed with the Patient or Patient's Authorized Fitting Room Supervisor. As applicable, any other physician, advance practice provider, medical student, or other health professional student that will be observing or involved in the sensitive examination for educational or training purposes was discussed with the Patient or Authorized Fitting Room Supervisor. The Patient or Authorized Fitting Room Supervisor has agreed to proceed with the sensitive examination. (Sensitive examination includes inspection and/or palpation of the breasts, pelvis, prostate and anorectal regions). SSE: normal vagina, cervix closed negative pool/fern/nitrazine A/P: Assessment & Plan Vaginal discharge during , antepartum (HCC) Orders: UA DIP, URINE (POC) Patient reassured on normal vaginal discharge. Follow up as scheduled. Lester Phillips MD [facility]09-09-2025 Telephone encounter Note* Telephone Encounter - Magda Hagen RN - 02/02/2025 11:11 AM EDT Patient called in to the office. Appointment given today. Magda Hagen RN [facility]09-09-2025 Miscellaneous Notes* Telephone Encounter - Magda Hagen RN - 02/02/2025 11:11 AM EDT Patient called in to the office. Appointment given today. Magda Hagen RN documented [facility] encounterKn[facility]08-27-2025 Telephone encounter Note * Telephone Encounter - Jocelyne Black RN - 01/20/2025 11:33 AM EDT Order signed and faxed. Jocelyne Black RN [facility]08-27-2025 Miscellaneous Notes* Telephone Encounter - Jocelyne Black RN - 01/20/2025 11:33 AM EDT Order signed and faxed. Jocelyne Black RN * Telephone Encounter - Isaura Pereira RN - 01/18/2025 8:45 AM EDT Breast pump order received from [employer]. To CP to sign. Isaura Pereira RN documented in this encounterKnox [facility]08-27-2025 NoteHNO ID: [id number] Author: KARINA SALDAÑA MD Service: ? Author [...] was discussed with the patient or authorized insurance follow up representative. The patient or authorized insurance follow up representative has agreed to proceed with the sensitive [...] Making Level: 4 - Moderate Karina Omer [facility]08-27-2025 History of Present illness Narrative* Karina [...] was discussed with the patient or authorized insurance follow up representative. The patient or authorized insurance follow up representative has agreed to proceed with the sensitive examination. @ 21.2 weeks Assessment & Plan Encounter for supervision of normal first in second trimester (HCC) Vaginal discharge Vaginal cultures today 21 weeks gestation of ([facility]) RTO as scheduled Abdominal pain affecting (HCC) Went to ER had CT scan - no acute findings. Causes of pain reviewed with patient. - abdominal binder -urine culture pending from Er - ER results reviewed Medical Decision Making: Problems: Moderate: New problem with uncertain prognosis Data: Unique test(s) ordered: 3+ Medical Decision Making Level: 4 - Moderate Karina Omer MD documented in this encounterKn[facility]08-27-2025 Progress note* Quick Notes - Karina [...] was discussed with the patient or authorized insurance follow up representative. The patient or authorized insurance follow up representative has agreed to proceed with the sensitive examination. @ 21.2 weeks Assessment & Plan Encounter for supervision of normal first in second trimester (HCC) Vaginal discharge Vaginal cultures today 21 weeks gestation of (HCC) RTO as scheduled Abdominal pain affecting (HCC) Went to ER had CT scan - no acute findings. Causes of pain reviewed with patient. - abdominal damien Omer MD [facility]08-27-2025 Miscellaneous Notes* Quick Notes - Karina [...] was discussed with the patient or authorized insurance follow up representative. The patient or authorized insurance follow up representative has agreed to proceed with the sensitive [...] abdominal damien Omer MD documented in this encounterKnox [facility] Hospital08-27-2025 Instructions* Patient Instructions* Ana Cristina Fitch MA - 01/20/2025 9:54 AM EDT SEQUENTIAL SCREENINGS [facility] offers sequential screenings for women who [...] testing. It will require an appointment withour emergency response technician. This is not an ultrasound performed [...] the above symptoms, contact our office at [phone] and ask to speak with anurse. After hours, you can call doctors registry at [phone] OR call [facility] at [phone] ask to have the doctor emergency response officer paged. If you consider this an emergency, dial 9-5-0 or go to your nearest emergency department. NEED HELP? Are you dealing with a violent or abusive relationship? Are you a victim of rape or sexual assult? Call [facility] [place] ([facility] 24 hour Crisis Hotline: 277.623.7057 or 182-755-7751. MANUAL Your Guide to a Healthy manual is now on-line. Visit [email or web address] to download your free copy documented in this encounterKnox Community Hospital08-26-2025 NoteHNO ID: [id number] Author: ARMIDA PENNINGTON RN Service: Nursing Author Type: Registered Nurse Type: Nursing Progress Note Filed: 01/19/2025 00:45 Note Text: Patient returned to [facility] at this time. No distress noted.[facility]08-26-2025 NoteHNO ID: [id number] Author: ARMIDA PENNINGTON RN Service: Nursing Author Type: Registered Nurse Type: Nursing Progress Note Filed: 01/19/2025 00:45 Note Text: Patient taken to CT at this time via wheelchair. RN accompanied patient. No distress noted.[facility]08-25-2025 NoteHNO ID: [id number] Author: CHAD LOYOLA DO Service: Obstetrics Author [...] medical physics group. Chad Loyola DO, MPH FIRST COAT SANDER PGY-2[facility]08-25-2025 NoteHNO ID: [id number] Author: CHAD LOYOLA DO Service: Obstetrics Author Type: Resident Type: Progress Notes Filed: 01/19/2025 03:32 Note Text: OBSTETRICS OB ED PROGRESS NOTE SERVICE DATE: January 18, 2025 SERVICE TIME: 9:34 PM Subjective Patient's stated reason for arrival: "sharp pain. pain whe touching tummy" CHIEF COMPLAINT: Abdominal pain HISTORY OF THE [...] . PAST MEDICAL HISTORY Diagnosis Date Asthma ([facility]) 2011 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HCC) POTS (postural orthostatic tachycardia syndrome) Recurrent UTI No past surgical history on file. No family history on file. OB History Gravida1 Para0 Term0 Preterm0 AB0 Living0 SAB0 IAB0 Ectopic0 Multiple0 Live Births0 REVIEW OF SYSTEMS: See HPI. Objective LAST VITALS: Pulse: 87 BP: 123/81 Resp: 17 Temp: 36.6 ?C (97.9 ?F) SpO2: 99 % Height: 170.2 cm (5' 7") Weight: 72.6 kg (160 lb) BMI: 25.06 SENSITIVE EXAMINATION CONSENT: Participation of a fellow, resident, medical student, or advanced practice provider student in performing the sensitive examination was discussed with the patient or authorized insurance follow up representative. The patient or authorized insurance follow up representative has agreed to proceed with the sensitive [...] Dilation: Closed (01/18/25 2200 : Chad Loyola, DO) MONITORING/ASSESSMENT: 145bpm via doppler, heart rate present and appropriate LABS Diagnostic tests reviewed for today's visit: Most recent labs and imaging results. 19 year old EGA:21w0d presenting with abdominal pain in Assessment AND Plan Abdominal pain affecting (HCC) - vital signs stable - bilateral lower [...] 18, 2025 TIME: 9:34 PM PAGER/CONTACT #: [id number]08-[facility]-2025 Telephone encounter Note* Telephone Encounter - Isaura Pereira RN - 01/18/2025 8:45 AM EDT [facility] To CP to sign. Isaura Pereira RN [facility]08-21-2025 Telephone encounter Note* Telephone Encounter - Ramakrishna Corley MD - 01/14/2025 1:34 PM EDT See result note [facility]08-21-2025 Miscellaneous Notes* Telephone Encounter - Ramakrishna Corley MD - 01/14/2025 1:34 PM EDT See result note documented in this encounterKnox Community Hospital08-18-2025 Note* Addendum Note - Ramakrishna Corley MD - 01/11/2025 3:49 PM EDTAddended by: RAMAKRISHNA CORLEY on: 01/11/2025 03:49 PM Modules accepted: Orders [facility]08-18-2025 Miscellaneous Notes* Addendum Note - Ramakrishna [...] several weeks ago, treated after she wentto [facility]. Now has dysuria. No vb, lof, [...] wks Ramakrishna Corley DO documented in this encounterKnox [facility] Hospital08-18-2025 Note* Addendum Note - Priti Sharma MA - 01/11/2025 3:24 PM EDTAddended by: PRITI SHARMA on: 01/11/2025 03:24 PM Modules accepted: Orders [facility]08-18-2025 Progress note* Quick Notes - Ramakrishna Corley MD - 01/11/2025 3:12 PM EDT SW- Lower pelvic cramping and dysuria with a BV infection several weeks ago, treated after she wentto [facility]. Now has dysuria. No vb, lof, [...] - Rto 4 wks Ramakrishna Corley DO [facility]08-18-2025 Instructions* Patient Instructions* Priti Sharma MA - 01/11/2025 2:59 PM EDT SEQUENTIAL SCREENINGS [facility] offers sequential screenings for women who [...] testing. It will require an appointment withour emergency response technician. This is not an ultrasound performed [...] the above symptoms, contact our office at [phone] and ask to speak with anurse. After hours, you can call doctors registry at [phone] OR call [facility] at [phone] ask to have the doctor emergency response officer paged. If you consider this an emergency, dial 9--1 or go to your nearest emergency department. NEED HELP? Are you dealing with a violent or abusive relationship? Are you a victim of rape or sexual assult? Call [facility] ([place]) 24 hour Crisis Hotline: 869.733.5600 or 363-724-8672. MANUAL Your Guide to a Healthy manual is now on-line. Visit [email or web address] to download your free copy documented in this encounterKnox Community Hospital08-15-2025 Telephone encounter Note * Telephone Encounter - Kari Abebe - 01/08/2025 2:39 PM EDT Scheduled 02/05/[address] Burns. Kari Abebe [facility]08-15-2025 Miscellaneous Notes* Telephone Encounter - Kari Abebe - 01/08/2025 2:39 PM EDT Scheduled 02/05/[address] Burns. Kari Abebe * Telephone Encounter - Ej Rodriguez MD - 01/07/2025 12:40 PM EDT Patient was seen by resident but not by any attending employee counselor while in labor and delivery she is and carries diagnosis of Myles-Danlos syndrome and POTS. She needs a new patient general cardiology appointment in the next 1 to 4 weeks. Please try to arrange this. If there are no spots or anyone let me know thanks Ej Rodriguez MD documented in this encounterKnox [facility] Hospital08-14-2025 Telephone encounter Note * Telephone Encounter - Ej Rodriguez MD - 01/07/2025 12:40 PM EDT Patient was seen by resident but not by any attending employee counselor while in labor and delivery she is and carries diagnosis of Myles-Danlos syndrome and POTS. She needs a new patient general cardiology appointment in the next 1 to 4 weeks. Please try to arrange this. If there are no spots or anyone let me know thanks Ej Rodriguez MD [facility] Work Phone: 1(527) 432-927108-14-2025 Telephone encounter Note* Telephone Encounter - Jocelyne Black RN - 01/07/2025 10:35 AM EDT Patient was seen at [facility] last night. She has OB and MFM appointment on Saturday. Jocelyne Black RN [facility]08-14-2025 Miscellaneous Notes* Telephone Encounter - Jocelyne Black RN - 01/07/2025 10:35 AM EDT Patient was seen at [facility] last night. She has OB and MFM [...] 01/05 telephone notes. Patient was seen at [facility] ED triage on 01/04. The diarrhea has resolved. Advised that she go back to [facility] as the office is closing. Patient asked for an appointment tomorrow instead because of transportation. No available appointments. Advised that she should be evaluated today in case she is having labor. Voiced understanding and believes she could have a friend take her. CAROLINA Hagen RN documented in this encounterKnox Community Hospital08-14-2025 Telephone encounter Note * Telephone Encounter - Karina Addison MD - 01/07/2025 10:00 AM EDT If not improved work in any cancellations, go to L&D for eval or schedule tomorrow if openings.Karina Addison MD [facility] Work Phone: 1(896) 317-905008-13-2025 NoteHNO ID: [id number] Author: ALEXA DICKSON MD Service: Obstetrics Author [...] in which she recalls losing vision and "blacking out" when she went from supine to sitting up. Patient denies any trauma associated with this incident. Patient also notes that she has had weakness with movement including needing assistance to get to the toilet without falling. Patient reports that this tiredness feels similar to her typical POTS symptoms, but worse than usual. PAST MEDICAL HISTORY Diagnosis Date Asthma ([facility]) 2012 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[facility]) POTS (postural orthostatic tachycardia syndrome) Recurrent UTI [...] for dysuria or urinary frequency, urinary urgency PRODUCTION POSTING CLERK: Negative for abnormal vaginal bleeding, negative fluid leakage, positive for vaginal discharge Objective LAST VITALS: BP: 148/101 (standing) Resp: 18 Temp: 37.2 ?C (99 ?F) SpO2: 99 % Height: 170.2 cm (5' 7") Weight: 71.7 kg (158 lb) BMI: 24.75 Patient Vitals for the past 24 hrs: BP 01/06/251951 148/101 01/06/251950 140/92 01/06/25 1950 132/73 01/06/25 1829 137/85 SENSITIVE EXAMINATION CONSENT: Participation of a fellow, resident, medical student, or advanced practice provider student in performing the sensitive examination was discussed with the patient or authorized insurance follow up representative. The patient or authorized insurance follow up representative has agreed to proceed with the sensitive [...] and gums normal, oropharynx (more content not included)...[facility]08-13-2025 Telephone encounter Note* Telephone Encounter - Magda [...] 01/05 telephone notes. Patient was seen at [facility] ED triage on 01/04. The diarrhea has resolved. Advised that she go back to [facility] as the office is closing. Patient asked for an appointment tomorrow instead because of transportation. No available appointments. Advised that she should be evaluated today in case she is having labor. Voiced understanding and believes she could have a friend take her. CAROLINA Hagen RN [facility]08-12-2025 Telephone encounter Note* Telephone Encounter - Jocelyne Black RN - 01/05/2025 12:19 PM EDT Patient notified and voiced understanding. Jocelyne Black RN [facility]08-12-2025 Miscellaneous Notes* Telephone Encounter - Jocelyne Black RN - 01/05/2025 12:19 PM EDT Patient notified and voiced understanding. Jocelyne Black RN * Telephone Encounter - Lester Phillips MD - 01/05/2025 12:07 PM EDT Patient was seen by Mitesh Kulkarni while at [facility]. I recommend supportive care with hydration, potassiumrich foods such as bananas and rest. Agree that after a GI illness it can take several days to feelbetter. Please keep current appointment on Saturday. Lester Phillips MD * Telephone Encounter - Magda Hagen RN - 01/05/2025 11:34 AM EDT 19w1d See 01/04 phone note. Patient went to [facility] last night. [facility] notes available to review. Patient was prescribed [...] feel completely confident in the diagnosis from [facility]. Please advise. Magda Hagen RN documented in this encounterKnox Community Hospital08-12-2025 Telephone encounter Note * Telephone Encounter - Lester Phillips MD - 01/05/2025 12:07 PM EDT Patient was seen by Mitesh Kulkarni while at [facility]. I recommend supportive care with hydration, potassiumrich foods such as bananas and rest. Agree that after a GI illness it can take several days to feelbetter. Please keep current appointment on Saturday. Lester Phillips MD [facility] Work Phone: 1(231) 528-632208-12-2025 Telephone encounter Note* Telephone Encounter - Magda Hagen RN - 01/05/2025 11:34 AM EDT 19w1d See 01/04 phone note. Patient went to [facility] OB ED last night. [facility] notes available to review. Patient was prescribed [...] feel completely confident in the diagnosis from [facility]. Please advise. Magda Hagen RN [facility]08-12-2025 Telephone encounter Note* Telephone Encounter - Jayla Keller MD - 01/05/2025 11:17 AM EDT Images from the original note were not included. Patient called requesting Rx for potassium and imodium after being seen in the OB ED 1 day ago. Jayla Keller MD [facility]08-12-2025 Miscellaneous Notes* Telephone Encounter - Jayla Keller MD - 01/05/2025 11:17 AM EDT Images from the original note were not included. Patient called requesting Rx for potassium and imodium after being seen in the OB ED 1 day ago. Jayla Keller MD [facility] NoteHNO ID: [id number] Author: KARINA ADDISON MD Service: Obstetrics Author [...] breath. PAST MEDICAL HISTORY Diagnosis Date Asthma (FORM[facility]LY [facility]) 2012 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[facility]) POTS (postural orthostatic tachycardia syndrome) Recurrent UTI [...] : Negative for dysuria or urinary frequency PRODUCTION POSTING CLERK: Negative for abnormal vaginal bleeding, abnormal vaginal discharge Objective LAST VITALS: Pulse: 102 BP: 120/63 Temp: 36.3 ?C (97.3 ?F) SpO2: 99 % SENSITIVE EXAMINATION CONSENT: Participation of a fellow, resident, medical student, or advanced practice provider student in performing the sensitive examination was discussed with the patient or authorized insurance follow up representative. The patient or authorized insurance follow up representative has agreed to proceed with the sensitive [...] Rate: 140 bpm (01/04/252034 : Mariann Milton, RN) LABS ABO/RH: No results found for: "ABORHD" HCG QT: Diagnostic tests reviewed for today's visit: Most recent labs and imaging results. CBC: Recent Labs 01/05/25113 WBC 10.50 RBC 3.73* HB 11.4* HCT 33.6* PLT 223 MCV 90.1 MCH 30.6 MPV 9.3 CMP: Recent Labs 01/05/25 011 NA 139 K 3.4* CHLOR 106 CO2 [...] Discussed natural course of (more content not included)...[facility]08-11-2025 Telephone encounter Note* Telephone Encounter - Maite [...] states this is stayingthe same since at [facility] 12/22/24. Last few weeks, Pt states extremely watery discharge. Went to [facility] at that time d/t havingsharp cervical pain & was treated for BV. Feels hydrated/Has been drinking liquid IV. Does havesome burning on urination & was seen on 12/30/24 in office-UA completed and TRACE protein and TRACE leukocytes. Advised Pt that since pain has worsened as the day as gone on that it would be best to go to [facility] OB triage to be evaluated as no appts available in office at this time. Pt did state she'd feel more comfortable going there and that is essentially why she called as she wanted to discuss with a nurse. Pt states her ride will not be able to pick her up for another 30 minutes, but Pt is agreeable to go to [facility]. Dr. Aragon notified. Maite Peterson RN [facility]08-11-2025 Miscellaneous Notes* Telephone Encounter - Maite [...] states this is stayingthe same since at [facility] 12/22/24. Last few weeks, Pt states extremely watery discharge. Went to [facility] at that time d/t havingsharp cervical pain & was treated for BV. Feels hydrated/Has been drinking liquid IV. Does havesome burning on urination & was seen on 12/30/24 in office-UA completed and TRACE protein and TRACE leukocytes. Advised Pt that since pain has worsened as the day as gone on that it would be best to go to [facility] tri[facility] to be evaluated as no appts available in office at this time. Pt did state she'd feel more comfortable going there and that is essentially why she called as she wanted to discuss with a nurse. Pt states her ride will not be able to pick her up for another 30 minutes, but Pt is agreeable to go to [facility]. Dr. Aragon notified. Maite Peterson, RN documented in this encounterKn[facility]08-04-2025 Miscellaneous Notes* Quick Notes - Lynnette Tapia APRN.CNM - 12/28/2024 11:15 AM EDT Patient is at 18 weeks gestation here for NOB. She is new to office and has received adequateprenatal care in [place]. Awaiting records. Lynnette Tapia APRN.CNM documented in this encounterKn[facility]08-04-2025 Progress note* Quick Notes - Lynnette Tapia APRN.CNM - 12/28/2024 11:15 AM EDT Patient is at 18 weeks gestation here for NOB. She is new to office and has received adequateprenatal care in [place]. Awaiting records. Lynnette Tapia APRN.CNM [facility]08-04-2025 NoteHNO ID: [id number] Author: LYNNETTE TAPIA APRN.CNM Service: ? Author Type: Plastic Surgery Manager Type: Progress Notes Filed: 12/28/2024 13:23 Note Text: Certified Scrum Master offered: Patient declines. INITIAL OB ASSESSMENT HPI: [...] pre-existing diabetes: No No results found for: "ABORHD" BMI 24.90 kg/(m2) Last Pap: History of [...] all that apply)? Centering (group care classes); Felt Hat Mellowing Machine Operator; Plastic Surgery Manager care Social History: Do you have [...] Partner: Name: Zaki Steven Age: 19 Occupation: [employer] Gender: Male PAST MEDICAL HISTORY Diagnosis Date [...] Itching GENITOURINARY: Negative f (more content not included)...[facility]08-04-2025 History of Present illness Narrative* Lynnette Tapia APRN.HUMPHREY - 12/28/2024 8:36 AM EDT Certified Scrum Master offered: Patient declines. INITIAL OB ASSESSMENT HPI: [...] pre-existing diabetes: No No results found for: "ABORHD" BMI 24.90 kg/(m^2) Last Pap: History of [...] all that apply)? Centering (group care classes); Felt Hat Mellowing Machine Operator; Plastic Surgery Manager care Social History: Do you have [...] Partner: Name: Zaki Steven Age: 19 Occupation: [employer] Gender: Male PAST MEDICAL HISTORY Diagnosis Date [...] discussed with the Patient or Patient's Authorized Fitting Room Supervisor. As applicable, any other physician, advance practice provider, medical student, or other health professional student that will be observing or involved in the sensitive examination for educational or training purposes was discussed with the Patient or Authorized Fitting Room Supervisor. The Patient or Authorized Fitting Room Supervisor has agreed to proceed with the sensitive examination. (Sensitive examination includes inspection and/or palpation of the breasts, pelvis, prostate and anorectal regions). PHYSICAL EXAM: BP 114/74 Ht 5' 7" (1.70m) Wt 159 lb (72.1kg) LMP 08/24/2024 [...] Your guide to a health and the Clinical Lab Scientist. Discussed Centering group- MAY BE INTERESTED 2) [...] Follow up in 2 weeks or sooner prn. Lynnette Tapia APRN.CNM documented in this encounterKn[facility]08-04-2025 Instructions* Patient Instructions* Ralph Molina LPN - 12/28/2024 8:36 AM EDT Please select the following link to access the [facility] Your Guide to a Healthy . [email or web address] documented in this encounterKn[facility]08-01-2025 Telephone encounter Note * Telephone Encounter - Isaura Pereira RN - 12/25/2024 12:13 PM EDT Records received from [facility] [place]. In chart prep binder for NOB appt on 12/28 with CP. Isaura Pereira RN [facility]08-01-2025 Miscellaneous Notes* Telephone Encounter - Isaura Pereira RN - 12/25/2024 12:13 PM EDT Records received from [facility] [place]. In chart prep binder for NOB appt on 12/28 with CP. Isaura Pereira RN documented in this encounterKn[facility] Hospital07-29-2025 NoteHNO ID: [id number] Author: MARK FOREMAN MD Service: Obstetrics Author [...] and recurrent UTIs. She recently moved from [place] and is establishing care with [facility]. Pt states her abdominal pain is intermittent and began around 6 pm yesterday. She was evaluated at [place] ED yesterday where she was found to [...] nausea, vomiting, or diarrhea : + dysuria PRODUCTION POSTING CLERK: Negative for abnormal vaginal bleeding, + for increase in vaginal discharge Objective LAST VITALS: Pulse: 92 BP: 125/78 Resp: 18 Temp: 37 ?C (98.6 ?F) SpO2: 100 % Height: 170.2 cm (5' 7") Weight: 70.3 kg (155 lb) BMI: 24.28 SENSITIVE EXAMINATION CONSENT: Participation of a fellow, resident, medical student, or advanced practice provider student in performing the sensitive examination was discussed with the patient or authorized insurance follow up representative. The patient or authorized insurance follow up representative has agreed to proceed with the sensitive examination. PHYSICAL EXAM: General: WD, WN Abdomen: soft, ,mild diffuse tenderness Pelvis: External genitalia normal without lesions. Perineal body intact. No vaginal or cervical lesions. Cervix closed. Thick discharge noted. No odor noted. Extremities: no edema SSE: wet prep ASSESSMENT: heart rate present: Mode: Doppler (12/22/242020 : Mariann Milton, RN) Doppler/Fetoscope Rate: 150 bpm (12/22/242020 : Mariann Milton, RN) LABS None Diagnostic tests reviewed for today's [...] prescription for a course (more content not included)...[facility]07-29-2025 Telephone encounter Note* Telephone Encounter - Magda Hagen RN - 12/22/2024 4:23 PM EDT Patient notified. Magda Hagen RN [facility]07-29-2025 Miscellaneous Notes* Telephone Encounter - Magda [...] urgent issue or go to [facility]GELA at [facility] or see if there is a sooner NOB elsewhere to get her established then f/u here. Karina Addison MD * Telephone Encounter - Magda Hagen RN - 12/22/2024 12:26 PM EDT New WHI OB seen at [facility] ER yesterday for pelvic pain. LMP 08/24/24. Approximately 17w1d. Patient calling because she still continues to have pelvic pain and pressure. Pain rate of 5-6. Taking Tylenol and using heat with no relief. States when she went to the ER her pain was 8-9. Denies LOF or VB. Per [facility] ER report: Discussed the case with on-call FIRST COAT SANDER for [facility] Dr. Aragon who states that she can [...] of medical records from her previous OB. [facility] ER report to RR to review. Magda Hagen RN documented in this encounterKnox [facility] Hospital07-29-2025 Telephone encounter Note * Telephone Encounter - Karina Addison MD - 12/22/2024 3:38 PM EDT Agree w/ keep scheduled appointment. Make sure we have US results/labs for NOB. If infection ruled out and no bleeding would recommend stretching, tylenol and warm baths prn. Can return to ED if urgent issue or go to [facility] at [facility] or see if there is a sooner NOB elsewhere to get her established then f/u here. Karina Addison MD [facility] Work Phone: 1(387) 622-878607-29-2025 Telephone encounter Note* Telephone Encounter - Magda Hagen RN - 12/22/2024 12:26 PM EDT New I OB seen at [facility] ER yesterday for pelvic pain. LMP 08/24/24. Approximately 17w1d. Patient calling because she still continues to have pelvic pain and pressure. Pain rate of 5-6. Taking Tylenol and using heat with no relief. States when she went to the ER her pain was 8-9. Denies LOF or VB. Per [facility] ER report: Discussed the case with on-call FIRST COAT SANDER for [facility] Dr. Aragon who states that she can [...] of medical records from her previous OB. [facility] ER report to RR to review. Magda Hagen RN [facility]07-28-2025 Discharge summary [facility] Medical Records Department [address] [place] [address] Emergency Department Summary 12/21/24 MR#: [id number] Acct: [id number] Name: PAL NICHOLAS Rep #:[id number] : 2005 19 From: Aftab Mendoza DO [...] management. States that she is following with [facility] OB. Patient denies any vaginal spotting or bleeding. [facility] Medical History (Updated 12/21/24 @ 23:39 by [...] follow commands knew that she was at [facility] the year is 2024 Skin: Warm, dry, [...] of infection. Discussed the case with on-call FIRST COAT SANDER for [facility] Dr. Aragon who states that she can [...] 72.9 H Lymph % (Auto) 18.4 L [place] % (Auto) 6.2 Eos % (Auto) 1.4 [...] Clarity Clear Urine pH 6.5 Ur Specific [place] 1.010 Urine Protein Negative Urine Glucose (UA) [...] - Activity Restrictions/Additional Instructions: Follow-up with your FIRST COAT SANDER at your scheduled appointment on Saturday. Your blood work did not show any acute findings your urine did not show any evidence infection. Return with worsening symptoms or any concerns. Ensure you are hydrating plenty with water. Print Language: Mauritian Disposition Disposition: Home, Self Care What to do if you have Problems For any increased pain, shortness of breath, bleeding, nausea or vomiting, chestpain, or any unexpected problems, contact your Primary Care Provider. Call [facility] ([phone]) or report tothe closest Emergency Room. Call 911 if necessary. 12/21/24 9783 Cosigner Signature (if applicable): CC: No Primary Care Physician ~ Signed [facility]07-28-2025 Discharge summary Author Aftab Mendoza [facility] Note Date/Time December 21, 2024 11:3 9pm [facility] Medical Records Department [address] [place] [address] Emergency Department Summary 12/21/24 MR#: [id number] Acct: [id number] Name: PAL NICHOLAS Rep #:[id number] : 2005 19 From: Aftab Mendoza DO [...] management. States that she is following with [facility] OB. Patient denies any vaginal spotting or bleeding. [facility] Medical History (Updated 12/21/24 @ 23:39 by [...] follow commands knew that she was at [facility] the year is 2024 Skin: Warm, dry, [...] of infection. Discussed the case with on-call FIRST COAT SANDER for [facility] Dr. Aragon who states that she can [...] 72.9 H Lymph % (Auto) 18.4 L [place] % (Auto) 6.2 Eos % (Auto) 1.4 [...] Clarity Clear Urine pH 6.5 Ur Specific [place] 1.010 Urine Protein Negative Urine Glucose (UA) [...] - Activity Restrictions/Additional Instructions: Follow-up with your FIRST COAT SANDER at your scheduled appointment on Saturday. Your blood work did not show any acute findings your urine did not show any evidence infection. Return with worsening symptoms or any concerns. Ensure you are hydrating plenty with water. Print Language: Mauritian Disposition Disposition: Home, Self Care What to do if you have Problems For any increased pain, shortness of breath, bleeding, nausea or vomiting, chestpain, or any unexpected problems, contact your Primary Care Provider. Call [facility] ([phone]) or report to the closest Emergency Room. Call 911 if necessary. 12/21/24 4383 <Electronically signed by Aftab Mendoza DO> Cosigner Signature (if applicable): CC: No Primary Care Physician ~ Signed [facility] Work Phone: 1(518) 752-407407-28-2025 Hospital Discharge instructionsAdditional Instructions Follow-up with your FIRST COAT SANDER at your scheduled appointment on Saturday. Your blood work did not show any acute findings your urine did not show any evidence infection. Return with worsening symptoms or any concerns. Ensure you are hydrating plenty with water.[facility] Work Phone: 1(947) 330-990207-08-2025 Telephone encounter Note* Telephone Encounter - Maria Alejandra Kay RN - 12/01/2024 10:27 AM EDT Name and verified. Patient wishes to transfer to [facility] for OB care. AMARI? 05/31/25 Gestational age? 14w1d Patient aware to sign up for My Chart so she can receive the "care management specialist" messages. What facility is she transferring from? [facility] in [place] Moving to [place] in 2 weeks and will be approx [...] would the patient like to establish in? [place] Will route this encounter to the desired office. Maria Alejandra Kay RN [facility]07-08-2025 Miscellaneous Notes* Telephone Encounter - Maria Alejandra Kay RN - 12/01/2024 10:27 AM EDT Name and verified. Patient wishes to transfer to [facility] for OB care. AMARI? 05/31/25 Gestational age? 14w1d Patient aware to sign up for My Chart so she can receive the "care management specialist" messages. What facility is she transferring from? [facility] in [place] Moving to [place] in 2 weeks and will be approx [...] would the patient like to establish in? [place] Will route this encounter to the desired [...] 2005 Provider for this encounter : [facility] Reason for call: New OB patient (16 weeks as of 11/30/24), MELVIN from [place] Was an appointment scheduled: No Reason for requesting visit (RFV/signs and symptoms/diagnosis) : Establish with OB at [facility] for continuation of care. Person calling: self Return call to: self Call patient at: [phone] (cell), it is OK to leave message Payor: ANTHEM / Plan: BLUE CARD PPO OOS / Product Type: PPO / Rica Garcia documented in this encounterKnox [facility] Hospital07-08-2025 Telephone encounter Note * Telephone Encounter - Maria Alejandra Kay, RN - 12/01/2024 10:09 AM EDT Call placed to patient to triage for new OB appt. Left message for patient to call back Maria Alejandra Kay RN [facility]07-08-2025 Telephone encounter Note* Telephone Encounter - Maria Alejandra Kay RN - 12/01/2024 8:38 AM EDT Call placed to patient to triage for new OB appt. No answer, will try later Maria Alejandra Kay RN [facility]07-08-2025 Telephone encounter Note* Telephone Encounter - Maria Alejandra Kay RN - 12/01/2024 8:37 AM EDT ----- Message from Rica Pendleton sent at 11/30/2024 4:05 PM EDT ----- Regarding: New/MELVIN OB 16 weeks Patient has been identified by name and Date of : Yes Patient: Pal Garcia Sarahy Leroy Date of : 2005 Provider for this encounter : [facility] Reason for call: New OB patient (16 weeks as of 11/30/24), MEL[place]IN from [place] Was an appointment scheduled: No Reason for requesting visit (RFV/signs and symptoms/diagnosis) : Establish with OB at [facility] for continuation of care. Person calling: self Return call to: self Call patient at: [phone] (cell), it is OK to leave message Payor: ANTHEM / Plan: BLUE CARD PPO OOS / Product Type: PPO / Rica Garcia [facility] HospitalEvaluation noteNo assessment information availableWHolmes County [facility] Work Phone: Evaluation note* Diagnosis Visit for screening ([facility])- Primary Unspecified screening 18 weeks gestation of ([facility]) state, incidental Encounter for supervision of high risk in second trimester, antepartum ([facility]) 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[facility]) POTS (postural orthostatic tachycardia syndrome) Tachycardia, unspecified 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 Screening for STD (sexually transmitted disease) Screening examination for venereal disease Abdominal pain during in second trimester ([facility]) Bacterial vaginosis Vaginitis and vulvovaginitis, unspecified documented in this encounter [facility] note* Diagnosis Abdominal pain affecting ([facility]) Diarrhea Hypokalemia Hypopotassemia Headache Chest pain during ([facility]) Vaginal discharge during ([facility]) Dizziness Dizziness and giddiness Chronic hypertension affecting ([facility]) 19 weeks gestation of ([facility]) state, incidental Pelvic pressure in ([facility]) Other specified complication, antepartum Bacterial vaginosis- Primary Vaginitis and vulvovaginitis, unspecified 20 weeks gestation of ([facility]) state, incidental Burning with urination Dysuria Palpitations Other fatigue Weakness Other malaise and fatigue Encounter for supervision of normal first in second trimester ([facility]) Supervision of normal first documented in this encounter [facility] note* Diagnosis Abdominal pain affecting ([facility]) Diarrhea Hypokalemia Hypopotassemia Headache Chest pain during ([facility]) Vaginal discharge during ([facility]) Dizziness Dizziness and giddiness Chronic hypertension affecting ([facility]) 19 weeks gestation of ([facility]) state, incidental Pelvic pressure in (HCC) Other specified complication, antepartum POTS (postural orthostatic tachycardia syndrome)- Primary Tachycardia, unspecified Visit for screening ([facility]) Unspecified screening 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HCC) Chronic hypertension affecting ([facility]) documented in this encounter [facility] note* Diagnosis Abdominal pain affecting (HCC) Diarrhea Hypokalemia Hypopotassemia Headache Chest pain during (HCC) Vaginal discharge during (HCC) Dizziness Dizziness and giddiness Chronic hypertension affecting (HCC) Pelvic pressure in (HCC) Other specified complication, antepartum Dysuria- Primary documented in this encounter [facility] note* Diagnosis Diarrhea Hypokalemia Hypopotassemia Headache Chest pain during (HCC) Vaginal discharge during (HCC) Dizziness Dizziness and giddiness Pelvic pressure in (HCC) Other specified complication, antepartum Chronic hypertension affecting (HCC) Abdominal pain affecting (HCC) 21 weeks gestation of ([facility]) state, incidental Encounter for supervision of normal first in second trimester ([facility])- Primary Supervision of normal first Vaginal discharge Leukorrhea, not specified as infective 21 weeks gestation of ([facility]) state, incidental Abdominal pain affecting ([facility]) * Assessment & Plan Note - Karina Saldaña MD - 01/20/2025 10:40 AM EDTAssociated Problem(s): 21 weeks gestation of ([facility]) RTO as scheduled * Assessment & Plan Note - Karina Saldaña MD - 01/20/2025 10:40 AM EDTAssociated Problem(s): Abdominal pain affecting ([facility]) Went to ER had CT scan - no acute findings. Causes of pain reviewed with patient. - abdominal binder [facility] Diarrhea Hypokalemia Hypopotassemia Headache Chest pain during (HCC) Vaginal discharge during (HCC) Dizziness Dizziness and giddiness Pelvic pressure in (HCC) Other specified complication, antepartum Chronic hypertension affecting (HCC) Abdominal pain affecting (HCC) 21 weeks gestation of (HCC) state, incidental Encounter for supervision of normal first in second trimester ([facility])- Primary Supervision of normal first Vaginal discharge Leukorrhea, not specified as infective 21 weeks gestation of (HCC) state, incidental Abdominal pain affecting (HCC) Vaginal discharge during , antepartum (HCC)- Primary * Assessment & Plan Note - Lester Phillips MD - 02/02/2025 2:28 PM EDTAssociated Problem(s): Vaginal discharge during (HCC) Orders: UA DIP, URINE (POC) [facility] this encounter [facility]* Diagnosis Diarrhea Hypokalemia Hypopotassemia Headache Chest pain during (HCC) Vaginal discharge during (HCC) Dizziness Dizziness and giddiness Pelvic pressure in (HCC) Other specified complication, antepartum Chronic hypertension affecting (HCC) Abdominal pain affecting (HCC) 21 weeks gestation of (HCC) state, incidental Encounter for supervision of normal first in second trimester ([facility])- Primary Supervision of normal first Vaginal discharge Leukorrhea, not specified as infective 21 weeks gestation of (HCC) state, incidental Abdominal pain affecting ([facility]) Vaginal discharge during , antepartum ([facility])- Primary Encounter for supervision of normal first in second trimester ([facility])- Primary Supervision of normal first 24 weeks gestation of ([facility]) state, incidental Screening for diabetes mellitus Vaginal discharge during in second trimester ([facility]) documented in this encounter [facility] Author Magda Aragon [facility] Note Date/Time February 02, 2025 11:38pm [facility] Medical Records Department [address] [place] [address] OB Triage Physician Note 02/02/25 [id number] MR#: [id number] Acct: [id number] Name: PAL NICHOLAS Rep #:[id number] : 2005 19 From: Magda Aragon MD PCP: Care Physician,No Primary Status :REG CLI Y Location: [place] [id number] HPI - General General Date of Admission: 02/02/25 Date of Service: 02/02/25 Chief Complaint: cramping HPI Narrative PAL NICHOLAS, is a 19 F who presents cramping. No bleeding. Some movement.Was seen in office today with normal discharge. Maternal Data Information Final AMARI: 05/31/25 Gestational age: 23 PFSH COUNTS INCLUDE 234 BEDS AT THE [facility] Medical History (Updated 02/02/25 @ 23:38 by [...] (1) 23 weeks gestation of : (2) [place]' contraction: COMMENT: cervix closed 02/02/25 7086 <Electronically signed by Magda Esparza in > Date _ Magda Aragon MD Cosigner Signature (if applicable): Date CC: Dr. Magda Aragon MD; No Primary Care Physician ~ Signed [facility] Work Phone: History and physical note Author Ramakrishna Corley [facility] Note Date/Time February 05, 2025 12:03am [facility] Medical Records Department [address] [place] [address] OB Triage Physician Note 02/04/25 [id number] MR#: [id number] Acct: [id number] Name: PAL NICHOLAS Rep #: : 2005 19 From: Ramakrishna Corley DO PCP: Care Physician,No Primary Status :REG CLI Y Location: [address] HPI - General General Date of Service: 02/04/25 Chief Complaint: ctx's HPI Narrative PAL NICHOLAS, is a 19 F who presents ctx's. She states she has had contractions and abdominal pain for 1-2 weeks. Went to [facility] 2 weeks agofor this and had a CT scan done showing thickening on bladders suggestive of cystitis and a non obstructing kidney stone. States she was on an antibiotic at that time for UTI. Reports multiple UTI's prior to the as well. She was on antibiotics for a UTI when she found out she was . She has supra pubic pain today, off and on dysuria, and difficulty feeling like she can empty her bladder. Denies fevers, chills, vomiting. Tolerating PO. No vb or lof. No constipation or diarrhea. [facility] Medical History (Updated 02/05/25 @ 00:[address] Ramakrishna Corley DO) POTS (postural orthostatic tachycardia syndrome) Myles-Danlos syndrome Home Medications ?Medication ?Instructions ?Recorded ?Last Taken ?Type aspirin 81 mg capsule 81 mg PO DAILY 02/02/2501/25 20:00 History 81 mg vit no.95-ferrous 1 tab PO DAILY 02/02/2503/20 20:00 History fumarate 28 mg-folic acid 800 mcg 1 TA B tablet () Allergy/AdvReac Type Severity Reaction Status Date / Time No Known Allergies Allergy Verified 02/04/25 22:31 Social History Smoking Status: Never smoker History 1 Elective abortions Hx Para 0 Spontaneous abortions Hx # Term Pregnancies Ectopic pregnancies Hx # Pregnancies Multiple births # of living children Physical Exam Const alert and no apparent distress Constitutional Narrative: Patient is resting comfortably and does not appear to be in pain General Appearance: comfortable GI soft to palpation and non-distended GI Narrative: Non acute. +Supra pubic tenderness Narrative: Cervix closed, thick, high Assessment & Plan (1) 23 weeks gestation of : (2) [place]' contraction: COMMENT: cervix closed PLAN: Cervix is closed thick and long. Patient is comfortable appearing. Do no suspect PTL at this time (3) History of UTI: (4) Suprapubic pain: PLAN: Urine +leuk esterase. Urine cx in process from 2 days ago. Will start Macrobid tonight and follow up on urine cx (5) Dysuria: 02/05/25 0003 <Electronically signed by Ramakrishna Corley DO> Date _ Ramakrishna Corley DO Cosigner Signature (if applicable): Date CC: Dr. Ramakrishna Corley, DO; No Primary Care Physician ~ Signed [facility] Work Phone: Reason for referral (narrative)No reason for referral information availableWHolmes [facility] Work Phone: Chief Complaint and Reason for Visit Chief Complaint Admit Date female pain, December 21, 2024 8: 25pm Chief Complaint Admit Date female pain, December 21, 2024 8: 25pm R/O LABOR February 02, 2025 8:50pm Reason for Visit Admit Date 23 weeks gestation of Janembe r 2024 8:50pm [place] contraction January 8:50pm Chief Complaint Admit Date female pain, December 21, 2024 8: 25pm R/O LABOR February 02, 2025 8:50pm R/O LABOR February 04, 2025 10:13pm Reason for Visit Admit Date 23 weeks gestation of Bárbara r 2024 8:50pm [place] contraction January 8:50pm 23 weeks gestation of Bárbara r 2024 10:13pm [place] contraction January 10:13pm Dysuria February 04, 2025 10:13pm History of UTI February 04, 2025 10:13pm Suprapubic pain February 04, 2025 10:13pm Advance Directives No Advanced Directives Records Found Advance Directive Response Recorded Date/ Time Do you have a Healthcare Power of Carbon Grinder? No December 21, 2024 9:54pm Summary Purpose [...] or prosecute any alcohol or drug abuse patient.[facility] the event this information is protected by the Federal Confidentiality of Alcohol and Drug Abuse Patient Records regulations: The Federal rules restrict any use of the information to criminally investigate or prosecute any alcohol or drug abuse patient.[facility] the event this information is protected by the Federal Confidentiality of Alcohol and Drug Abuse Patient Records regulations: The Federal rules restrict any use of the information to criminally investigate or prosecute any alcohol or drug abuse patient.[facility] the event this information is protected by the Federal Confidentiality of Alcohol and Drug Abuse Patient Records regulations: The Federal rules restrict any use of the information to criminally investigate or prosecute any alcohol or drug abuse patient.[facility] the event this information is protected by the Federal Confidentiality of Alcohol and Drug Abuse Patient Records regulations: The Federal rules restrict any use of the information to criminally investigate or prosecute any alcohol or drug abuse patient.[facility] the event this information is protected by the Federal Confidentiality of Alcohol and Drug Abuse Patient Records regulations: The Federal rules restrict any use of the information to criminally investigate or prosecute any alcohol or drug abuse patient.[facility] the event this information is protected by the Federal Confidentiality of Alcohol and Drug Abuse Patient Records regulations: The Federal rules restrict any use of the information to criminally investigate or prosecute any alcohol or drug abuse patient.[facility] the event this information is protected by the Federal Confidentiality of Alcohol and Drug Abuse Patient Records regulations: The Federal rules restrict any use of the information to criminally investigate or prosecute any alcohol or drug abuse patient.[facility] the event this information is protected by the Federal Confidentiality of Alcohol and Drug Abuse Patient Records regulations: The Federal rules restrict any use of the information to criminally investigate or prosecute any alcohol or drug abuse patient.[facility] the event this information is protected by the Federal Confidentiality of Alcohol and Drug Abuse Patient Records regulations: The Federal rules restrict any use of the information to criminally investigate or prosecute any alcohol or drug abuse patient.[facility] the event this information is protected by the Federal Confidentiality of Alcohol and Drug Abuse Patient Records regulations: The Federal rules restrict any use of the information to criminally investigate or prosecute any alcohol or drug abuse patient.[facility] Hospital[facility] the event this information is protected by the Federal Confidentiality of Alcohol and Drug Abuse Patient Records regulations: The Federal rules restrict any use of the information to criminally investigate or prosecute any alcohol or drug abuse patient.[facility] the event this information is protected by the Federal Confidentiality of Alcohol and Drug Abuse Patient Records regulations: The Federal rules restrict any use of the information to criminally investigate or prosecute any alcohol or drug abuse patient.[facility] the event this information is protected by the Federal Confidentiality of Alcohol and Drug Abuse Patient Records regulations: The Federal rules restrict any use of the information to criminally investigate or prosecute any alcohol or drug abuse patient.[facility] the event this information is protected by the Federal Confidentiality of Alcohol and Drug Abuse Patient Records regulations: The Federal rules restrict any use of the information to criminally investigate or prosecute any alcohol or drug abuse patient.[facility] Hospital[facility] the event this information is protected by the Federal Confidentiality of Alcohol and Drug Abuse Patient Records regulations: The Federal rules restrict any use of the information to criminally investigate or prosecute any alcohol or drug abuse patient.[facility] HospitalIn the event this information is protected by the Federal Confidentiality of Alcohol and Drug Abuse Patient Records regulations: The Federal rules restrict any use of the information to criminally investigate or prosecute any alcohol or drug abuse patient.[facility] Hospital[facility] the event this information is protected by the Federal Confidentiality of Alcohol and Drug Abuse Patient Records regulations: The Federal rules restrict any use of the information to criminally investigate or prosecute any alcohol or drug abuse patient.[facility] HospitalIn the event this information is protected by the Federal Confidentiality of Alcohol and Drug Abuse Patient Records regulations: The Federal rules restrict any use of the information to criminally investigate or prosecute any alcohol or drug abuse patient.[facility] Reason for Visit (unrecogniz ed section and content) Reason Comments Care Coordination Reason Comments OB Pelvic Pain Reason Comments Received Outside Medical Records Reason Comments Care Reason Comments OB Pain Reason Comments OB Vaginal Pressure Reason Onset Date Comments Care 01/11/2025 Reason Comments US Specialty Diagnoses / Procedures Referred By Contac t Referred To Contact [facility] Diagnoses Visit for screening (HCC) Procedures OBSTETRIC ULTRASOUND WHI US PREG UTERUS AFTER 1ST TRIMEST GESTATION Lynnette Tapia APRN.[facility] [address] [address] Phone: tel: fax: [facility] [address] [place] [id number] Referral ID Status Reason Start Date Expiration Date V isits Requested Visits Authorized [id number] Closed Auto-Generate d Referral 12/29/2024 05/26/2025 1 1 Reason Comments Appointment Reason Comments Orders Reason Onset Date Comments Care 01/20/2025 Reason Comments Breast Pump Reason Comments Low back aching/cramping pelvic region Reason Comments Contractions Reason Comments Care Care Teams (unrecognized sec tion and content) Team Status: Active Member Role/Relationship Status Dates No Primary Care Physician Primary Care Provider Active Team Status: Inactive Member Role/Relationship Status Dates Dr. Aftab Mendoza , Emergency Provider Active Start: December 21, 2024 [...] February 02, 2025 Dr. Magda Aragon MD Referring Provider Active Start: February 02, 2025 End: February 02, 2025 Team Status: Inactive Member Role/Relationship Status Dates No Primary Care Physician Primary Care Provider Active Start: February 04, 2025 End: February 05, 2025 Dr. Ramakrishna Corley DO Attending Provider Active Start: February 04, 2025 End: February 05, 2025 Dr. Ramakrishna Corley DO Referring Provider Active Start: February 04, 2025 End: February 05, 2025 Team Status: Inactive Member Role/Relationship Status Dates No Primary Care Physician Primary Care Provider Active Start: February 04, 2025 End: February 05, 2025 Dr. Ramakrishna Corley DO Referring Provider Active Start: February 04, 2025 End: February 05, 2025 Lynnette Tapia CNM Attending Provider Active Start: February 04, 2025 End: February 05, 2025 Goals (unrecognized section and content) Goals may be documented in a n alternate sectionGoals may be documented in an alternate sectionGoals may be documented in an alternate sectionGoals may be documented in an alternate section INFORMATION SOURCE (unrecogn ized section and content) DATE CREATED AUTHOR 01/22/2025 [facility] DATE CREATED AUTHOR AUTHOR'S ORGANIZ ATION 02/07/2025 [facility] DATE CREATED AUTHOR AUTHOR'S ORGANIZ ATION 02/10/2025 [facility] FOR RECORDS PERTAINING TO PATIENTS WHO ARE [...] BE BASED ON THE PRIMARY CLINICAL RECORDS. [facility] [employer] [facility]. provides no warranty or guarantee of the accuracy or completeness of information in this document.
[2025-02-13 22:16] VITALS: BP 124/83; PULSE 97
[2025-02-13 22:31] VITALS: BP 120/73; PULSE 95
--- NOTE | 2025-02-13 23:21 | OB.TRI.NOTE ---
HPI - General General Date of Service: 02/13/25 Chief Complaint: pain HPI Narrative JOSE NICHOLAS, is a 19 F who presents with bladder pain and unable to void. Was in Triage at [facility] early and had straight cath for 200 cc. US and urine collected. Was given supplies to self cath but didn't feel comfortable. Has been having this pain since before . Has a urogyn referral. Does notice increased pain with acidic liquids. Discussed possible IC and what foods to avoid. Does feel like she could self cath with the help of her boyfriend. 200 cc drained here. No bleeding no fluid loss Maternal Data Information AMARI Calculator Estimated Delivery Date Method Current WG Current Estimate 05/31/25 Manual 24w 6d Final AMARI: 05/31/25 Gestational age: 24+6 [facility] Medical History (Updated 02/05/25 @ 00:[address] Holly Corley, ) POTS (postural orthostatic tachycardia syndrome) Myles-Danlos syndrome Home Medications Medication Instructions Recorded Last Taken Type aspirin 81 mg capsule 81 mg PO DAILY 02/02/25 02/03/25 20:00 History 81 mg vit no.95-ferrous 1 tab PO DAILY 02/02/25 02/03/25 20:00 History fumarate 28 mg-folic acid 800 mcg 1 TAB tablet () Allergy/AdvReac Type Severity Reaction Status Date / Time No Known Allergies Allergy Verified 02/13/25 22:13 Social History Smoking Status: Never smoker History 1 Elective abortions Hx Para 0 Spontaneous abortions Hx # Term Pregnancies Ectopic pregnancies Hx # Pregnancies Multiple births # of living children NST FHR Rate Baby A Baseline: 140 Variability:: Moderate Accelerations:: 10 x 10 Decelerations:: None NST Reactive:: Appropriate for gestational age Assessment & Plan (1) Dysuria: (2) Suprapubic pain: PLAN: Plan Discussed food avoidance and bladder journal. Will increase fluid intake. Keep referral to urogyn
--- NOTE | 2025-02-14 03:27 | PCM.PN.OB ---
Objective Data Objective Data Vital Signs: Vital Signs Temp Pulse Resp BP 98.6 F 95 16 120/73 02/13/25 22:07 02/13/25 22:31 02/13/25 22:07 02/13/25 22:31 Weight: 80.377 kg Body Mass Index (BMI) 27.7 Intake & Output: Intake and Output for Last 24 Hours 02/12/25 02/13/25 02/14/25 23:59 23:59 23:59 Output Total 400 / 400 Balance -400 / -400
== END 2025-02-13 23:18 | disposition home or self-care (01) ==
LOC: WPOUT 21:52 → WP 21:52
PROVIDERS: Referring Provider Obstetrics & Gynecology; Visit Provider Obstetrics & Gynecology
DX: O99.891 Other specified diseases and conditions complicating pregnancy (principal); R30.0 Dysuria; R10.9 Unspecified abdominal pain
CPT/HCPCS: 59050; 99221; G0378

== ENCOUNTER 2025-02-23 20:00 | Outpatient (CLI) | payer BC, SELFPAY ==
--- NOTE | 2025-02-23 20:55 | OB.TRI.HP_ITS ---
HPI - General General Date of Service: 02/23/25 HPI Narrative JOSE NICHOLAS, is a 19 F who presents back pain, side pain and some contractions. Maternal Data Information AMARI Calculator Estimated Delivery Date Method Current WG Current Estimate 05/31/25 Manual 26w 1d [facility] Medical History (Updated 02/23/25 @ 20:[address] Anup Davalos MD) POTS (postural orthostatic tachycardia syndrome) Myles-Danlos syndrome Home Medications ?Medication ?Instructions ?Recorded ?Last Taken ?Type aspirin 81 mg capsule 81 mg PO DAILY 02/02/2501/25 20:00 History 81 mg vit no.95-ferrous 1 tab PO DAILY 02/02/2503/20 20:00 History fumarate 28 mg-folic acid 800 mcg 1 TA B tablet () Allergy/AdvReac Type Severity Reaction Status Date / Time No Known Allergies Allergy Verified 02/23/25 20:56 Social History Smoking Status: Never smoker History 1 Elective abortions Hx Para 0 Spontaneous abortions Hx # Term Pregnancies Ectopic pregnancies Hx # Pregnancies Multiple births # of living children Physical Exam external exam normal Narrative: cvx - cl/th/hi NST FHR Rate Baby A Baseline: 140 Accelerations:: 15 x 15 Decelerations:: None Uterine Activity:: Irritability Assessment & Plan (1) Threatened labor: QUALIFIERS: Trimester: third trimester Qualified Code(s): O47.03 - False labor before 37 completed weeks of gestation, third trimester PLAN: Plan Reactive NST No evidence PTL
[2025-02-23 20:56] VITALS: BMI 28.5
== END 2025-02-23 21:10 | disposition home or self-care (01) ==
LOC: WPOUT 20:06 → WP 20:06
PROVIDERS: Referring Provider Advanced Practice Midwife; Visit Provider Advanced Practice Midwife
DX: O47.02 False labor before 37 completed weeks of gestation, second trimester (principal); Z3A.26 26 weeks gestation of pregnancy
CPT/HCPCS: 59025; 59050; 99221; G0378

== ENCOUNTER 2025-03-13 16:35 | Outpatient (CLI) | payer BC, SELFPAY ==
[2025-03-13] VITALS (17 sets, daily range): BP systolic 117–170; BP diastolic 73–106; PULSE 74–111; RESP 16; TEMP 36.3; O2SAT 97–100; BMI 29.5
--- OUTSIDE RECORDS SUMMARY | 2025-03-13 16:43 | XMS RPT_ITS | CCD ---
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 Aftab Mendoza DO Emergency Provider [phone] Care Physician, No Primary Primary Care Provider Unavailable Dr. Aftab Mendoza DO Attending Provider Mahesh WILLIS, Dr. Man Attending Provider Mahesh WILLIS, Dr. Man Referring Provider Dr. Ramakrishna Corley DO Attending Provider Dr. Ramakrishna Corley DO Referring Provider Lynnette Tapia CNM Attending Provider Dr. Aftab Mendoza DO Attending Physician [phone] Aftab Mendoza DO Emergency Department Physic devi Care Physician, No Primary Primary Care Physicia n Maria Esther Aragon MD, Dr. Man Attending Physician Lynnette Tapia CNM Attending Physician Patsy March CNM Attending Physician Patsy March CNM Referring Provider Magda Aragon Attending Unavailable Magda Aragon Referring Unavailable Care Physician, No Primary Primary Care Unava ilable Aftab Mendoza Attending Unavailable Care Physician, No Primary Primary Care Unava ilable Lynnette Tapia Attending Unavailable Ramakrishna Corley Referring Unavailable Care Physician, No Primary Primary Care Unava ilable Magda Aragon Attending Unavailable Magda Aragon Referring Unavailable Care Physician, No Primary Primary Care Unava ilable Patsy March Attending Unavailable Patsy March Referring Unavailable Care Physician, No Primary Primary Care Unava ilable YESSI, ALEXA Attending Unavailable YESSI, ALEXA Admitting Unavailable MARIANNE, NUZHAT GRANADOS Attending Unavailable MARIANNE, NUZHAT GRANADOS Admitting Unavailable YESSI, ALEXA Attending Unavailable YESSI, ALEXA Admitting Unavailable ASIAJocelyneMADHUREGGIE Donahue Attending Unavailable PLOTJUMA, LYNNETTE Referring Unavailable MARIANNE, NUZHAT GRANADOS Attending Unavailable MARIANNE, NUZHAT GRANADOS Admitting Unavailable VIKTOR, MARK Jones Attending Unavailable VIKTOR, MARK Jones Admitting Unavailable KARI JOHNSTON Attending Unavailable YESSI, ALEXA Referring Unavailable ALAN, LESTER Attending Unavailable SANDY, LYNNETTE Attending Unavailable ALAN, LESTER Attending Unavailable KARINA SALDAÑA Attending Unavail able WISWELL, RAMAKRISHNA Referring Unavailable WISWELL, RAMAKRISHNA Attending Unavailable PLOTTS, LYNNETTE Referring Unavailable PLOTTS, LYNNETTE Referring Unavailable PLOTTS, LYNNETTE Attending Unavailable PLOTTS, LYNNETTE Attending Unavailable PLOTTS, LYNNETTE Referring Unavailable WISWELL, RAMAKRISHNA Attending Unavailable PLOTTS, LYNNETTE Referring Unavailable PLOTTS, LYNNETTE Referring Unavailable Medications Current Medications Medication Drug Class(es) Dates Sig (Normalized) Sig (Original) aspirin 81 mg oral tablet (20 sources) Platelet Aggregation Inhibitor, Nonsteroidal Anti-inflammatory Drug Start: 02-02-2025 take 1 capsule by mouth once daily Aspirin 81 mg capsule Active 81 mg PO DAILY February 02, 2025 12:00am Complies with drug therapy Start: 12-28-2024 take 1 tablet by karl th once daily aspirin, enteric coated (ECOTRIN LOW STRENGTH) 81 mg EC tablet Indications: Visit for screening ([facility]) Take 1 tablet by mouth once daily. 90 tablet 3 12/28/2024 Active doxylamine succinate 25 mg oral tablet (16 sources) take 25 mg by mouth once daily doxylamine succinate (UNISOM, DOXYLAMINE, PO) Take 25 mg by mouth once daily. Active loperamide hydrochloride 2 mg oral capsule (3 sources) Opioid Agonist Start: 01-06-20 End: 01-11-20 take 1 capsule by mouth every six hours as needed loperamide (IMODIUM A-D) 2 mg cap(s) Take 1 capsule by mouth four times a day as needed for up to 5 days. 20 capsule 01/05/2025 01/10/2025 Active metroNIDAZOLE 500 mg oral tablet (2 sources) Nitroimidazole Antimicrobial Start: 12-23-19 End: 12-30-19 take 1 tablet by mouth twice daily metroNIDAZOLE (FLAGYL) 500 mg tablet Take 1 tablet by mouth two times a day for 7 days. 14 tablet 12/22/2024 12/29/2024 Active Pnv No.95-Ferrous Fumarate-Fa () 28 mg iron- 800 mcg tablet (5 sources) Start: 02-03-20 Pnv No.95-Ferrous Fumarate-Fa () 28 mg iron- 800 mcg tablet Active 1 {tbl} PO DAILY February 02, 2025 12:00am Complies with drug therapy Start: 02-02-2025 Pnv No.95-Ferr ous Fumarate-Fa () [...] tablet 12/22/2024 02/08/2025 Discontinued (Discontinued by Patient) nitrofurantoin, macrocrystals 25 mg / nitrofurantoin, monohydrate 75 mg oral capsule (9 sources) Nitrofuran Antibacterial Start: 02-05-2025 End: 02-13-2025 take 1 capsule by mouth twice daily at mealtime Nitrofurantoin Monohyd/M-Cryst (Macrobid) 100 mg capsule Discontinued 100 mg PO TWICE A DAY 13 7 0 February 05, 2025 12:00am February 13, 2025 10:14pm must administer with a meal/food Start: 01-14-2025 End: 01-21-2025 take 1 capsule by mouth twice daily nitrofurantoin monohydrate and macrocrystal (MACROBID) 100 mg capsule Indications: Dysuria Take 1 capsule by mouth two times a day for 7 days. 14 capsule 01/14/2025 01/21/2025 Active Start: 12-03-2024 take 1 capsule by mo uth every twelve hours nitrofurantoin monohydrate and macrocrystal (MACROBID) 100 mg capsule Take 1 capsule every 12 hours by oral route for 7 days. 12/03/2024 Active Problems Active Problems Problem Classification Problem Date Documented Da te Episodic/Chronic Abdominal pain (13 sources) Suprapubic pain; Translations: [Pelvic and perineal pain] Onset: 01-06-2025 02-05-2025 Episodic Bacterial infection; unspecified site (1 [...] [Dizziness and giddiness] Onset: 01-05-2025 01-05-2025 Episodic Diabetes or abnormal glucose tolerance complicating ; childbirth; or the puerperium (1 source) Abnormal glucose complicating ; Translations: [Abnormal glucose complicating (HCC)] Onset: 03-11-2025 Episodic Early or threatened labor (18 sources) [place] contractions; Translations: [False labor, unspecified] Onset: 02-19-2025 02-02-2025 Episodic Comment on above: cervix closed Esophageal disorders (1 source) Gastro-esophageal reflux disease without esophagitis; Translations: [Gastroesophageal reflux disease without esophagitis] Onset: 03-11-2025 Chronic Fluid and electrolyte disorders (20 sources) Dehydration; Translations: [Dehydration] Onset: 01-05-2025 12-21-2024 Episodic Genitourinary symptoms and ill-defined conditions (20 sources) Scalding pain on urination ; Translations: [Dysuria] Onset: 01-11-2025 01-11-2025 Episodic Headache; including migraine (15 sources) Headache; Translations: [Headache] Onset: 01-05-2025 01-05-2025 Episodic Hypertension complicating ; childbirth and the puerperium (15 sources) Chronic hypertension complicating AND/OR reason for care during ; Translations: [Unspecified pre-existing hypertension complicating , unspecified trimester] Onset: 01-06-2025 01-06-2025 Chronic Immunizations and screening for infectious disease (5 sources) Patient encounter status; Translations: [Encounter for screening for infections with a predominantly sexual mode of transmission] Onset: 03-11-2025 12-28-2024 Episodic Inflammatory diseases of female pelvic organs (20 sources) Bacterial vaginosis; Translations: [Acute vaginitis] Onset: 12-22-2024 12-22-2024 Episodic Malaise and fatigue (4 sources) Fatigue; Translations: [Other fatigue] Onset: 01-12-2025 01-11-2025 Episodic Nonspecific chest pain (1 source) Chest pain, unspecified; Translations: [Chest pain, unspecified type] Onset: 03-08-2025 Episodic Other circulatory disease (1 source) Postural orthostatic tachycardia syndrome 12-28-2024 Episodic Other complications of (6 sources) Complication of , childbirth and/or the [...] Onset: 01-06-2025 01-06-2025 Episodic Other complications of (4 sources) Other specified related conditions, unspecified trimester; Translations: [Abdominal pain affecting (HCC)] Onset: 01-06-2025 Episodic Other complications of (1 source) Supervision of high risk , unspecified, third trimester; Translations: [Supervision of high risk in third trimester (HCC)] Onset: 03-11-2025 Episodic Other complications of (1 source) Supervision of high risk , unspecified, second trimester; Translations: [Encounter for supervision of high risk in second trimester, antepartum (HCC)] Onset: 12-28-2024 Episodic Other congenital anomalies (18 sources) Myles-Danlos syndrome; 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, 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-2024 Chronic Other female genital disorders (1 source) Other specified conditions associated with female genital organs and menstrual cycle; Translations: [Vaginal burning] Onset: 03-11-2025 Episodic Other female genital disorders (2 sources) Other specified noninflammatory disorders of vagina; Translations: [Vaginal discharge during , antepartum (HCC)] Onset: 01-06-2025 Episodic Other gastrointestinal disorders (15 sources) Diarrhea; Translations: [Diarrhea, unspecified] Onset: 01-05-2025 01-05-2025 Episodic Other and delivery including normal (10 sources) ; Translations: [Encounter for supervision of normal , unspecified, unspecified trimester] Onset: 02-16-2025 12-21-2024 Episodic Other screening for suspected conditions (not mental disorders or infectious disease) (2 sources) Encounter for screening for diabetes mellitus; Translations: [Encounter for screening, unspecified] Onset: 01-11-2025 Episodic Residual codes; unclassified (2 [...] Onset: 01-18-2025 01-18-2025 Episodic Residual codes; unclassified (14 sources) Gestation period, 23 weeks; Translations: [23 weeks gestation of ] 02-02-2025 Episodic Residual codes; unclassified (1 source) Gestation period, 24 weeks; Translations: [24 weeks gestation of ] 02-08-2025 Episodic Residual codes; unclassified (2 sources) 18 weeks gestation of ; Translations: [18 weeks gestation of (HCC)] Onset: 12-30-2024 Episodic Residual codes; unclassified (1 source) 28 weeks gestation of ; Translations: [28 weeks gestation of (HCC)] Onset: 03-11-2025 Episodic Residual codes; unclassified (1 source) 25 weeks gestation of ; Translations: [25 weeks gestation of (HCC)] Onset: 02-16-2025 Episodic Residual codes; unclassified (1 source) 24 weeks gestation of ; Translations: [24 weeks gestation of (HCC)] Onset: 02-08-2025 Episodic Residual codes; unclassified (1 source) 21 weeks gestation of ; Translations: [21 weeks gestation of (HCC)] Onset: 01-18-2025 Episodic Residual codes; unclassified (1 source) 20 weeks gestation of ; Translations: [20 weeks gestation of (HCC)] Onset: 01-11-2025 Episodic Residual codes; unclassified (1 source) Cystic fibrosis carrier; Translations: [Cystic fibrosis carrier] Onset: 12-28-2024 Episodic Unclassified (2 sources) Patient encounter status 12-28-2024 Unclassified (16 sources) [facility] Education - COMMON Onset: 12-28-2024 12-28-2024 Unclassified (16 sources) Education - [place] Onset: 12-28-2024 12-28-2024 Unclassified (1 source) Other specified diseases and conditions complicating ; Translations: [Other specified diseases and conditions complicating ] Onset: 02-25-2025 Unclassified (2 sources) POTS (postural orthostatic tachycardia syndrome); Translations: [POTS (postural orthostatic tachycardia syndrome)] Onset: 12-28-2024 Unclassified (1 source) Myles-Danlos syndrome, unspecified; Translations: [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HCC)] Onset: 12-28-2024 Urinary tract infections (1 source) Urinary tract infection, site not specified; Translations: [Recurrent UTI] Onset: 02-18-2025 Episodic Past or Other Problems Problem Classification Problem Date Documented Da te Episodic/Chronic Residual codes; unclassified (13 sources) Gestation period, 19 weeks; Translations: [19 weeks gestation of ] Onset: 01-06-2025 Resolved: 01-13-2025 01-06-2025 Episodic Results Test Name Value Interpretation Reference Range Facility BACTERIAL VAGINOSIS NAATon 1 Lactobacillus crispatus+gasseri+muniz ii + Gardnerella vaginalis + Atopobium vaginae rRNA JOHN+probe Ql (Vag fld) Not detected Normal Not detected [facility] Comment on above: Order Comment: Speci men Type: SWABOrdering Facility: [facility] Address: [address] [place] [address] Performed By: #### B VAMP, CVTV ####[facility] LABCLIA [id number] [place] [address] [place] PARVEEN/TRICHOMONAS NAATon 1 C. glabrata RNA JOHN+probe Ql (Vag fld) Not detected Normal Not detected [facility] Comment on above: Order Comment: Speci men Type: SWABOrdering Facility: [facility] Address: [address] [place] [address] Performed By: #### B VAMP, CVTV ####[facility] LABCLIA [id number] [place] [address] [place] Parveen sp DNA JOHN+probe Ql (Vag fld) Not detected Normal Not detected [facility] Comment on above: Order Comment: Speci men Type: SWABOrdering Facility: [facility] Address: [address] [place] [address] Result Comment: The Parveen species group target includes C. albicans, C. tropicalis, C. parapsilosis, and C. dubliniensis. Performed By: #### B VAMP, CVTV ####[facility] LABCLIA [id number] [address] [place] T. vaginalis DNA JOHN+probe Ql (Unsp spec) Not detected Normal Not detected [facility] Comment on above: Order Comment: Speci men Type: SWABOrdering Facility: [facility] Address: [address] [place] [address] Performed By: #### B VAMP, CVTV ####[facility] LABCLIA [id number] [place] [address] [place] CBC panel Auto (Bld)on 03-11 Erythrocyte distribution width (RBC) [Ratio] 13.2 % Normal 11.5-15.0 [facility] Comment on above: Order Comment: Speci men Type: BLOOD SPECIMENOrdering Facility: [facility] Address: [address] [place] [address] Performed By: #### 5 8410-2 ####[facility] [id number] [place] [address] [place] Hematocrit (Bld) [Volume fraction] 32.7 % Low 36.0-46.0 [facility] Comment on above: Order Comment: Speci men Type: BLOOD SPECIMENOrdering Facility: [facility] Address: [address] [place] [address] Performed By: #### 5 8410-2 ####[facility] [id number] [place] [address] [place] Hemoglobin (Bld) [Mass/Vol] 11.7 g/dL Normal 11.5-15.5 [facility] Comment on above: Order Comment: Speci men Type: BLOOD SPECIMENOrdering Facility: [facility] Address: [address] [place] [address] Performed By: #### 5 8410-2 ####[facility] JANNETTEHURONHERNANDEZ [id number] [address] [place] [facility] MCH (RBC) [Entitic mass] 31.7 pg Normal 26.0-34.0 [facility] Comment on above: Order Comment: Speci men Type: BLOOD SPECIMENOrdering Facility: [facility] Address: [address] [place] [address] Performed By: #### 5 8410-2 ####[facility] [id number] [address] [place] MCHC (RBC) [Mass/Vol] 35.8 g/dL Normal 30.5-36.0 [facility] Comment on above: Order Comment: Speci men Type: BLOOD SPECIMENOrdering Facility: [facility] Address: [address] [place] [address] Performed By: #### 5 8410-2 ####[facility] [id number] [address] [place] MCV (RBC) [Entitic vol] 88.6 fL Normal 80.0-100.0 [facility] Comment on above: Order Comment: Speci men Type: BLOOD SPECIMENOrdering Facility: [facility] Address: [address] [place] [address] Performed By: #### 5 8410-2 ####[facility] [id number] [place] [address] [place] Nucleated RBC (Bld) [#/Vol] 10*3/uL Normal <0.01 [facility] Comment on above: Order Comment: Speci men Type: BLOOD SPECIMENOrdering Facility: [facility] Address: [address] [place] [address] Performed By: #### 5 8410-2 ####[facility] JANNETTEWNCLIA [id number] [place] [address] [place] Platelet mean volume (Bld) [Entitic vol] 9.5 fL Normal 9.0-12.7 [facility] Comment on above: Order Comment: Speci men Type: BLOOD SPECIMENOrdering Facility: [facility] Address: [address] [place] [address] Performed By: #### 5 8410-2 ####[facility] [id number] [place] [address] [place] Platelets (Bld) [#/Vol] 244 10*3/uL Normal 150-400 [facility] Comment on above: Order Comment: Speci men Type: BLOOD SPECIMENOrdering Facility: [facility] Address: [address] [place] [address] Performed By: #### 5 8410-2 ####[facility] [id number] [place] [address] [place] RBC (Bld) [#/Vol] 3.69 10*6/uL Low 3.90-5.20 [facility] Comment on above: Order Comment: Speci men Type: BLOOD SPECIMENOrdering Facility: [facility] Address: [address] [place] [address] Performed By: #### 5 8410-2 ####[facility] [id number] [place] [address] [place] WBC (Bld) [#/Vol] 11.16 10*3/uL High 3.70-11.00 [facility] Comment on above: Order Comment: Speci men Type: BLOOD SPECIMENOrdering Facility: [facility] Address: [address] [place] [address] Performed By: #### 5 8410-2 ####[facility] [id number] [place] [address] [place] GESTATIONAL GLUCOSE SCREEN, 1-HOUR, 50 GRAM, NON-FASTINGon 03-11-2025 Glucose [Mass/Vol] 152 mg/dL High 74-134 [facility] Comment on above: Order Comment: Speci men Type: BLOOD SPECIMENOrdering Facility: [facility] Address: [address] [place] [address] Result Comment: [facility] Congress of Obstetricians and Gynecologists (Hinojosa/Niko) guidelines state a gestational diabetes mellitus positive screen is made, in women not previously diagnosed with overt diabetes, when the 1 hr plasma glucose level is equal to or above 140 mg/dL. [facility] [employer] [facility] [place] recommends a 135 mg/dL cutoff. Performed By: #### G LTGST ####[facility] [id number] [place] [address] [place] MYCOPLASMA GENITALIUM NAATon 03-11-2025 M. genitalium DNA JOHN+probe Ql (U) Not detected Normal Not detected [facility] Comment on above: Order Comment: Speci men Type: URINE SPECIMENOrdering Facility: [facility] Address: [address] [place] [address] Performed By: #### M YGAMP ####[facility] LABCLIA [id number] [place] [address] [place] Reagin and Treponema pallidu m IgG and IgM [Interp]on 03-11-2025 T. pallidum IgG+IgM IA Ql (S) Non-Reactive Normal Nonreactive [facility] Comment on above: Order Comment: Speci men Type: BLOOD SPECIMENOrdering Facility: [facility] Address: [address] [place] [address] Performed By: #### 7 3752-8 ####[facility] LABCLIA [id number] [place] [address] [place] Reagin+T pallidum IgG+IgM Se rPl-Impon 03-11-2025 Reagin and Treponema pallidum IgG and IgM [Interp] Cannot exclude recent Treponemal infection if specimen collected within 7-10 days after appearance of suspect lesions or 2-3 weeks after an exposure. Clinical correlation is required. Normal [facility] Comment on above: Order Comment: Speci men Type: BLOOD SPECIMENOrdering Facility: [facility] Address: [address] [place] [address] Performed By: #### 7 3752-8 ####[facility] LABCLIA [id number] [address] TYPE + SCREEN PRENATALon ABO O Normal [facility] Comment on above: Order Comment: Speci men Type: BLOOD SPECIMENOrdering Facility: [facility] Address: [address] [place] [address] Performed By: #### T SPN ####[facility] LABCLIA [id number] [address] Rh Nom (Bld) Negative Normal [facility] Comment on above: Order Comment: Speci men Type: BLOOD SPECIMENOrdering Facility: [facility] Address: [address] [place] [address] Performed By: #### T SPN ####[facility] LABCLIA [id number] [address] TYPE AND SCREEN EXPIRATION 03/14/2025 23:59 Normal [facility] Comment on above: Order Comment: Speci men Type: BLOOD SPECIMENOrdering Facility: [facility] Address: [address] [place] [address] Performed By: #### T SPN ####[facility] LABCLIA [id number] [place] [id number] [facility] [place] CNOVon 03-08-2025 CNOV Office Visit (AGCARDHW[facility]) PAL NICHOLAS ([id number]) 3 F Date Time Provider Department 03/08/25 9:20 AM REGGIE MA AGCARDHWG During your visit today, we recorded the following information about you: Pulse Blood pressure Weight 98/minute 124/80 86 kg Reggie Ma MD 03/08/2025 9:45 AM Signed PRIMARY CARE PHYSICIAN: To use this Smartlink, specify the provider ID whose address you want to display, e.g., .PROVADDR[1 (where 1 is the provider ID). REFERRING PHYSICIAN: Lynnet[address] [facility] [address] CHIEF COMPLAINT: Abnormal EKG HISTORY OF PRESENT ILLNESS: Ms. 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 She is currently 28 weeks . No prior pregnancies and no losses. She stated POTS has been under control prior to her . She has chest pain that occurs irrespective of activity. They occur at rest and are usually mild in severity and last for variable periods with spontaneous resolution. The chest pain does not radiate. She has palpitations which are constant. They are different from what she had when she had POTS and she says they work on a daily basis. She had EKGs on account of her complaints and this showed features in keeping with possible inferior infarct and anterior ischemia. She however admitted that she has had recurrent episodes of hypokalemia that required repletion. The T wave abnormalities on those EKGs may have correlated with her hypokalemic episodes. She also has shortness of breath. No leg swelling. No orthopnea or PND. No diaphoresis or feeling of impending doom. She does not smoke cigarettes or drink alcohol. He denies use of illicit drugs. 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 She has 1 other sibling. She is here in the office with her mom. Paternal grandfather suddenly at age 49. She stated the diagnosis of Myles-Danlos was made by a appliances sample maker and appeals rn. She is not sure if she had genetic testing. PAST MEDICAL HISTORY Diagnosis Date Asthma (HCC) 2012 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HCC) POTS (postural orthostatic tachycardia syndrome) Recurrent UTI History reviewed. No pertinent surgical history. MEDICATIONS: Catheter (SELF-CATHETER, FEMALE) 14 Fr misc 1 Units once daily as needed. pseudoephed/acetamin oph/diphen (BENADRYL COLD ORAL) Take by mouth. aspirin, enteric coated (ECOTRIN LOW STRENGTH) 81 mg EC tablet Take 1 tablet by mouth once daily. vit 75/iron/folic/om3 (DAILY ORAL) Take by mouth. nitrofurantoin monohydrate and macrocrystal (MACROBID) 100 mg capsule Take 1 capsule every 12 hours by oral route for 7 days. (Patient not taking: Reported on 02/16/2025) doxylamine succinate (UNISOM, DOXYLAMINE, PO) Take 25 mg by mouth once daily. (Patient not taking: Reported on 02/16/2025) pyridoxine, vitamin B6, (VITAMIN B-6) 25 mg tablet Take 25 mg by mouth once daily. (Patient not taking: Reported on 02/16/2025) ALLERGIES No Known Allergies SOCIAL HISTORY: SOCIAL HISTORY[1] History reviewed. No pertinent family history. REVIEW OF SYSTEMS: GENERAL: Negative for: Weight loss or gain, Fever, Chills, or Night sweats Negative unless as otherwise stated in the HPI PHYSICAL EXAMINATION: BP 124/80 Pulse 98 Wt 189 lb 9.6 oz (86.0kg) SpO2 97% LMP 08/24/2024 GENERAL: Well appearing, in no acute distress. HEENT: no JVD LUNGS: Clear to auscultation bilaterally, no rales, wheezing, or rhonchi. HEART: Regular rate and rhythm; normal S1/S2; no murmurs, gallops, or rubs Abdomen: Mccammon distended. Nontender. EXTREMETIES: No peripheral edema. Grade 2/4 distal pulses bilaterally. NEURO: Grossly nonfocal WBC (k/uL) Date Value 01/18/2025 10.04 RBC (m/uL) Date Value 01/18/2025 3.71 (L) Hemoglobin (g/dL) Date Value 01/18/2025 11.5 Hematocrit (%) Date Value 01/18/2025 34.6 (L) MCV (fL) Date Value 01/18/2025 93.3 MCH (pg) Date Value 01/18/2025 31.0 MCHC (g/dL) Date Value 01/18/2025 33.2 RDW-CV (%) Date Value 01/18/2025 14.1 Platelet Count (k/uL) Date Value 01/18/2025 242 MPV (fL) Date Value 01/18/2025 9.2 Glucose (mg/dL) Date Value 01/18/2025 63 (L) BUN (mg/dL) Date Value 01/18/2025 4 (L) Creatinine (mg/dL) Date Value 01/18/2025 0.50 (L) Sodium (mmol/L) Date Value 01/18/2025 137 Potassium (mmol/L) Date Value 01/18/2025 3.8 Chloride (mmol/L) Date Value 01/18/2025 103 CO2 (mmol/L) Date Value 01/18/2025 22 Protein, Total (g/dL) Date Value 01/18/2025 6.5 Albumin (g/dL) Date Value 01/18/2025 3.8 (L) Calcium, Total (mg/dL) Date Value 01/18/2025 8.6 Alkaline Phosphatase (U/L) Date Value 01/18/2025 57 Bilirubin, Total (mg/dL) Date Value 01/18/2025 0. (more content not included)... Normal [facility] OB Triage Physician Noteon 0 02-23-2025 OB Triage Physician Note [facility] Medical Records Department [address] [place] [address] OB Triage Physician Note 02/23/252054 MR#: [id number] Acct: [id number] Name: SARAHY KAURDYLONDALE RACHEL Rep #: [id number] : 2005 19 From: Lester Phillips MD PCP: Care Physician,No Primary Status:REG CLI Y Location: [id number] HPI - General General Date of Service: 02/23/25 HPI Narrative PAL SARAHY KAUR, is a 19 F who presents back pain, side pain and some contractions. Maternal Data Information AMARI Calculator Estimated Delivery Date Method Current WG Current Estimate 05/31/25 Manual 26w 1d [facility] Medical History (Updated 02/23/25 @ 20:[address] Lester Phillips MD) POTS (postural orthostatic tachycardia syndrome) Myles-Danlos [...] / Time No Known Allergies Allergy Verified 02/23/25 20:56 Social History Smoking Status: Never smoker History 1 Elective abortions Hx Para 0 Spontaneous abortions Hx # Term Pregnancies Ectopic pregnancies Hx # Pregnancies Multiple births # of living children Physical Exam external exam normal Narrative: cvx - cl/th/hi NST FHR Rate Baby A Baseline: 140 Accelerations:: 15 x 15 Decelerations:: None Uterine Activity:: Irritability Assessment Plan (1) Threatened labor: QUALIFIERS: Trimester: third trimester Qualified Code(s): O47.03 - False labor before 37 completed weeks of gestation, third trimester PLAN: Plan Reactive NST No evidence PTL 02/23/252105 Date Lester Phillips MD Cosigner Signature (if applicable): Date _ CC: Dr. Lester Phillips MD; No Primary Care Physician Signed [facility] 02-22-2025 [facility] Telephone (GYURWP) SARAHY KAURPAL ([id number]) 3 F Date Time Provider Department 02/22/25 KARI JOHNSTON GYURWP During your visit today, we recorded the following information about you: Deep Owen RN 02/22/2025 11:09 AM Signed Called patient in regards to catheter supplies per request of Kari Nguyen MD P [facility] Clinical [facility]; [facility] Schedulers Pool I placed an order for complete intermittent self-catheterizaion catheters. Please coordinate obtaining these for the patient. Thank you LVMTCB. Deep Owen RN Allergies As of Date: 02/22/2025 (No Known Allergies) Date Reviewed: 02/18/2025 Reviewed by: Kari Johnston MD - Fully Assessed Prescriptions as of 02/22/2025 - Catheter (SELF-CATHETER, FEMALE) 14 Fr misc 1 Units once daily as needed. - pseudoephed/acetamin oph/diphen (BENADRYL COLD ORAL) Take by mouth. - nitrofurantoin monohydrate and macrocrystal (MACROBID) 100 mg capsule Take 1 capsule every 12 hours by oral route for 7 days. - aspirin, enteric coated (ECOTRIN LOW STRENGTH) 81 mg EC tablet Take 1 tablet by mouth once daily. - vit 75/iron/folic/om3 (DAILY ORAL) Take by mouth. - doxylamine succinate (UNISOM, DOXYLAMINE, PO) Take 25 mg by mouth once daily. - pyridoxine, vitamin B6, (VITAMIN B-6) 25 mg tablet Take 25 mg by mouth once daily. Problem List As Of Date 02/22/2025 Noted Resolved Bacterial vaginosis [N76.0, B96.89] 12/22/2024 [...] 21 weeks gestation of (HCC) [Z3A.21] 01/18/2025 25 weeks gestation of (HCC) [Z3A.25] 02/17/2025 Voiding dysfunction [N39.8] 02/18/2025 Recurrent UTI [N39.0] 02/18/2025 Encounter Status:Closed by DEEP OWEN on 02/22/25 [facility] Yajaira 02-18-2025 CNOV Office Visit (DOUGLAS) PAL NICHOLAS ([id number]) 3 F Date Time Provider Department 02/18/25 11:30 AM KARI JOHNSTON During your visit today, we recorded the following information about you: Weight 80.8 kg Kari Johnston MD 02/18/2025 1:16 PM Signed Female Pelvic Medicine AND Reconstructive Surgery Consult Recording using [employer] software for draft documentation of the visit was discussed with the patient/authorized veterans contact representative; all questions welcomed and answered. Patient/authorized veterans contact representative agreed to proceed CHIEF COMPLAINT: Pal Nicholas is a 19 year old female who presents for consultation requested by Dr. Lester Phillips for an opinion regarding Incomplete bladder emptying. My final recommendations will be communicated back to the requesting physician by way of shared Medical record or letter to requesting physician via US mail. HISTORY OF PRESENT ILLNESS: The patient is a 19-year-old female, currently 25 weeks and 3 days , presenting with difficulty emptying her bladder completely. The patient reports difficulty fully emptying her bladder, with symptoms beginning around 12 weeks of gestation. She describes variable ability to urinate, sometimes feeling unable to void at all. She has been attempting to urinate frequently, sometimes up to 6 times per day, but notes that even with increased fluid intake, she occasionally does not feel the urge to urinate. She has been using warm water to stimulate urination when unable to void. She was taught to perform self-catheterization and has been using straight catheters as needed, approximately once daily, when unable to urinate. She requests a prescription for straight catheters, as she was only provided with two initially. She mentions a history of severe UTIs prior to , characterized by sudden onset of symptoms and hematuria. Since becoming , she has been treated for UTIs based on her history, though recent urine cultures have been negative. She initially experienced dysuria, which has since resolved. A recent urinalysis on February 13 showed WBCs and skin cells, but no hematuria; a prior urinalysis on February 08 was normal. She also reports experiencing constant contractions and had a CT scan a few weeks ago that showed bladder wall thickening. Medical and Symptom History: LMP: Patient's last menstrual period was 08/24/2024 (exact date).; Menopause n/a: ALLERGIES No Known Allergies Current Outpatient Medications Medication Sig pseudoephed/acetamin oph/diphen (BENADRYL COLD ORAL) Take by mouth. aspirin, enteric coated (ECOTRIN LOW STRENGTH) 81 mg EC tablet Take 1 tablet by mouth once daily. vit 75/iron/folic/om3 (DAILY ORAL) Take by mouth. Catheter (SELF-CATHETER, FEMALE) 14 Fr misc 1 Units once daily as needed. nitrofurantoin monohydrate and macrocrystal (MACROBID) 100 mg capsule Take 1 capsule every 12 hours by oral route for 7 days. (Patient not taking: Reported on 02/16/2025) doxylamine succinate (UNISOM, DOXYLAMINE, PO) Take 25 mg by mouth once daily. (Patient not taking: Reported on 02/16/2025) pyridoxine, vitamin B6, (VITAMIN B-6) 25 mg tablet Take 25 mg by mouth once daily. (Patient not taking: Reported on 02/16/2025) No current facility-administere d medications for this visit. History reviewed. No pertinent surgical history. PAST MEDICAL HISTORY Diagnosis Date Asthma (HCC) 2012 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HCC) POTS (postural orthostatic tachycardia syndrome) Recurrent UTI History reviewed. No pertinent family history. SOCIAL HISTORYSOCIAL HISTORY[1] Occupation: Unemployed, Not Seeking Work Marital Status: Single Sexually active: is not sexually active because she of pain. Review of Systems Constitutional: Negative for chills, diaphoresis and fever. HENT: Negative for drooling, ear discharge, facial swelling, nosebleeds, sore throat and trouble swallowing. Eyes: Negative for discharge, redness, itching and visual disturbance. Respiratory: Negative for apnea, choking, chest tightness, shortness of breath, wheezing and stridor. Cardiovascular: Negative for chest pain and palpitations. Gastrointestinal: Negative for abdominal distention, abdominal pain, anal bleeding, blood in stool, nausea and vomiting. Endocrine: Negative for cold intolerance and heat intolerance. Genitourinary: Negative for genital sores, menstrual problem and vaginal bleeding. Musculoskeletal: Negative for gait problem, myalgias, neck pain and neck stiffness. Skin: Negative for pallor, rash and wound. Allergic/Immunologic : Negative for environmental allergies, food allergies and immunocompromised state. Neurological: Negative for dizziness, seizures, facial asymmetry, speech difficulty, light-headedness, numbness and headaches. Hematological: Nega (more content not included)... [facility] SAR[facility] PAL AKUR ([id number]) 3 F Date Time Provider Department 02/16/25 CLEM SAAVEDRA AKPOHelder During your visit today, we recorded the following information about you: Clem Saavedra MD 02/16/2025 3:59 PM Signed Patient on follow up book for urine culture from 02/13 OB ED visit. Negative result. Attempted to call patient to inform yesterday, no answer, voicemail left. Per documentation, recommendation during OB ED visit for urogynecololgy follow up outpatient. Called patient today and informed of negative urine culture result. Patient has appointment with Dr. Johnston scheduled for 02/18. Patient does not have any questions at this time. Clem Saavedra MD OBGYN PGY-3 February 16, 2025 3:58 PM Allergies As of Date: 02/16/2025 (No Known Allergies) Date Reviewed: 02/16/2025 Reviewed by: Priti Sharma MA - Fully Assessed Prescriptions as of 02/16/2025 - pseudoephed/acetamin oph/diphen (BENADRYL COLD ORAL) Take by mouth. - nitrofurantoin monohydrate and macrocrystal (MACROBID) 100 mg capsule Take 1 capsule every 12 hours by oral route for 7 days. - aspirin, enteric coated (ECOTRIN LOW STRENGTH) 81 mg EC tablet Take 1 tablet by mouth once daily. - vit 75/iron/folic/om3 (DAILY ORAL) Take by mouth. - doxylamine succinate (UNISOM, DOXYLAMINE, PO) Take 25 mg by mouth once daily. - pyridoxine, vitamin B6, (VITAMIN B-6) 25 mg tablet Take 25 mg by mouth once daily. Problem List As Of Date 02/16/2025 Noted Resolved Bacterial vaginosis [N76.0, B96.89] 12/22/2024 [...] of (HCC) [Z3A.21] 01/18/2025 Encounter Status:Closed by CLEM SAAVEDRA on 02/16/25 [facility] 02-15-2025 [facility] Telephone (AKPOB) PAL NICHOLAS ([id number]) 3 F Date Time Provider Department 02/15/25 CLEM SAAVEDRA AKPOHelder During your visit today, we recorded the following information about you: Clem Saavedra MD 02/15/2025 1:46 PM Signed Patient on follow up book for urine culture from 02/13 OB ED visit. Negative result. Attempted to call patient to inform, no answer, voicemail left. Per documentation, recommendation during OB ED visit for urogynecololgy follow up outpatient. Will attempt to call patient again to discuss. Clem Saavedra MD OBGYN PGY-3 February 15, 2025 1:45 PM Allergies As of Date: 02/15/2025 (No Known Allergies) Date Reviewed: 02/13/2025 Reviewed by: Ronald Cooper RN - Fully Assessed Prescriptions as of 02/15/2025 - nitrofurantoin monohydrate and macrocrystal (MACROBID) 100 mg capsule Take 1 capsule every 12 hours by oral route for 7 days. - aspirin, enteric coated (ECOTRIN LOW STRENGTH) 81 mg EC tablet Take 1 tablet by mouth once daily. - vit 75/iron/folic/om3 (DAILY ORAL) Take by mouth. - doxylamine succinate (UNISOM, DOXYLAMINE, PO) Take 25 mg by mouth once daily. - pyridoxine, vitamin B6, (VITAMIN B-6) 25 mg tablet Take 25 mg by mouth once daily. Problem List As Of Date 02/15/2025 Noted Resolved Bacterial vaginosis [N76.0, B96.89] 12/22/2024 [...] of (HCC) [Z3A.21] 01/18/2025 Encounter Status:Closed by CLEM SAAVEDRA on 02/15/25 Normal [facility] Bacteria Ur Culton 5 Bacteria identified Cx Nom (U) CULTURE, URINE: No growth (<100 CFU/ml) Normal [facility] Comment on above: Performed By: #### 6 30-4, 40022-9 #### [facility] CLIA [id number] [address] [place] [id number] [facility] OB Triage Physician Noteon 0 02-13-2025 OB Triage Physician Note [facility] Medical Records Department [address] [facility] [place] [id number] OB Triage Physician Note 02/13/25 2321 MR#: [id number] Acct: [id number] Name: PAL NICHOLAS Rep #: [id number] : 2005 19 From: Magda Aragon MD PCP: Care Physician,No Primary Status:DEP CLI Y Location: [facility] - General General Date of Service: 02/13/25 Chief Complaint: pain HPI Narrative PAL NICHOLAS, is a 19 F who presents with bladder pain and unable to void. Was in Triage at [facility] early and had straight cath for 200 cc. US and urine collected. Was given supplies to self cath but didn't feel comfortable. Has been having this pain since before . Has a urogyn referral. Does notice increased pain with acidic liquids. Discussed possible IC and what foods to avoid. Does feel like she could self cath with the help of her boyfriend. 200 cc drained here. No bleeding no fluid loss Maternal Data Information AMARI Calculator Estimated Delivery Date Method Current WG Current Estimate 05/31/25 Manual 24w 6d Final AMARI: 05/31/25 Gestational age: 24+6 PFSH PFSH Medical History (Updated 02/05/25 @ [...] / Time No Known Allergies Allergy Verified 02/13/25 22:13 Social History Smoking Status: Never smoker History 1 Elective abortions Hx Para 0 Spontaneous abortions Hx # Term Pregnancies Ectopic pregnancies Hx # Pregnancies Multiple births # of living children NST FHR Rate Baby A Baseline: 140 Variability:: Moderate Accelerations:: 10 x 10 Decelerations:: None NST Reactive:: Appropriate for gestational age Assessment Plan (1) Dysuria: (2) Suprapubic pain: PLAN: Plan Discussed food avoidance and bladder journal. Will increase fluid intake. Keep referral to urogyn 02/14/252047 Date Magda Aragon MD Cosigner Signature (if applicable): Date _ CC: Dr. Magda Aragon MD; No Primary Care Physician Signed Normal [facility] Urinalysis complete panel (U )on 02-13-2025 Bilirubin Ql (U) Negative Normal Negative [facility] Comment on above: Order Comment: Speci men Type: URINE SPECIMEN Ordering Facility: [facility] Address: [address] [place] [address] Performed By: #### 6 30-4, 22530-0 #### [facility] CLIA [id number] [address] [place] [address] [place] Clarity (Unsp spec) Clear Normal Clear [facility] Comment on above: Order Comment: Speci men Type: URINE SPECIMEN Ordering Facility: [facility] Address: [address] [place] [address] Performed By: #### 6 30-4, 61304-5 #### [facility] CLIA [id number] [address] [place] Color (U) Light Yellow Normal yellow [facility] Comment on above: Order Comment: Speci men Type: URINE SPECIMEN Ordering Facility: [facility] Address: [address] [place] [address] Performed By: #### 6 30-4, 49067-6 #### [facility] CLIA [id number] [address] [place] Epithelial cells LM.HPF (Urine sed) [#/Area] Few Abnormal None Seen [facility] Comment on above: Order Comment: Speci men Type: URINE SPECIMEN Ordering Facility: [facility] Address: [address] [place] [address] Performed By: #### 6 30-4, 12784-2 #### [facility] CLIA [id number] [address] [place] Glucose Test strip (U) [Mass/Vol] Negative Normal Trace, Negative [facility] Comment on above: Order Comment: Speci men Type: URINE SPECIMEN Ordering Facility: [facility] Address: [address] [place] [address] Performed By: #### 6 30-4, 79571-8 #### [facility] CLIA [id number] [address] [place] [address] [place] Hemoglobin Ql (U) Negative Normal Negative, Trace [facility] Comment on above: Order Comment: Speci men Type: URINE SPECIMEN Ordering Facility: [facility] Address: [address] [place] [address] Performed By: #### 6 30-4, 15586-2 #### [facility] CLIA [id number] [address] [place] Ketones Ql (U) Negative Normal Negative, Trace [facility] Comment on above: Order Comment: Speci men Type: URINE SPECIMEN Ordering Facility: [facility] Address: [address] [place] [address] Performed By: #### 6 30-4, 84119-3 #### [facility] CLIA [id number] [address] Leukocyte esterase Test strip Ql (U) 75 Maryann/uL Abnormal Negative, 25 Maryann/uL [facility] Comment on above: Order Comment: Speci men Type: URINE SPECIMEN Ordering Facility: [facility] Address: [address] [place] [address] Performed By: #### 6 30-4, 90123-8 #### [facility] CLIA [id number] [address] Nitrite Ql (U) Negative Normal Negative [facility] Comment on above: Order Comment: Speci men Type: URINE SPECIMEN Ordering Facility: [facility] Address: [address] [place] [address] Performed By: #### 6 30-4, 81656-0 #### [facility] CLIA [id number] [address] pH (U) 7.0 [pH] Normal 5.0-8.0 [facility] Comment on above: Order Comment: Speci men Type: URINE SPECIMEN Ordering Facility: [facility] Address: [address] [place] [address] Performed By: #### 6 30-4, 39726-6 #### [facility] CLIA [id number] [address] Protein (U) [Mass/Vol] Negative Normal Trace , Negative [facility] Comment on above: Order Comment: Speci men Type: URINE SPECIMEN Ordering Facility: [facility] Address: [address] [place] [address] Performed By: #### 6 30-4, 89669-9 #### [facility] CLIA [id number] [address] [place] RBC LM.HPF (Urine sed) [#/Area] 0-3 /HPF Normal 0-3 /HPF [facility] Comment on above: Order Comment: Speci men Type: URINE SPECIMEN Ordering Facility: [facility] Address: [address] [place] [address] Performed By: #### 6 30-4, 81780-1 #### [facility] CLIA [id number] [address] Specific gravity (U) [Rel density] 1.019 Normal 1.005-1.030 [facility] Comment on above: Order Comment: Speci men Type: URINE SPECIMEN Ordering Facility: [facility] Address: [address] [place] [address] Performed By: #### 6 30-4, 01442-3 #### [facility] CLIA [id number] [address] Urobilinogen Ql (U) Normal Normal Normal [facility] Comment on above: Order Comment: Speci men Type: URINE SPECIMEN Ordering Facility: [facility] Address: [address] [place] [address] Performed By: #### 6 30-4, 58397-3 #### [facility] CLIA [id number] [address] [place] [facility] WBC LM.HPF (Urine sed) [#/Area] 11-25 /HPF Abnormal 0-5 /HPF [facility] Comment on above: Order Comment: Speci men Type: URINE SPECIMEN Ordering Facility: [facility] Address: [address] [place] [address] Performed By: #### 6 30-4, 84531-9 #### [facility] CLIA [id number] [address] [place] BACTERIAL VAGINOSIS NAATon 0 02-08-2025 Interpretation and review of laboratory results Normal [facility] Lactobacillus crispatus+gasseri+muniz ii + Gardnerella vaginalis + Atopobium vaginae rRNA JOHN+probe Ql (Vag fld) Not detected Not detected [facility] Lactobacillus crispatus+gasseri+muniz ii + Gardnerella vaginalis + Atopobium vaginae rRNA JOHN+probe Ql (Vag fld) Not detected Normal Not detected [facility] Comment on above: Order Comment: Speci men Type: SWABOrdering Facility: [facility] Address: [address] [place] [address] Performed By: #### B VAMP, CVTV ####[facility]IA [id number] [place] [address] [place] Bacteria Ur Culton Bacteria identified Cx Nom (U) CULTURE, URINE: No growth (<1,000 CFU/ml) Normal [facility] Comment on above: Performed By: #### 6 30-4 ####[facility] LABCLIA [id number] [place] [address] [place] PARVEEN/TRICHOMONAS NAATon 0 02-08-2025 C. glabrata RNA JOHN+probe Ql (Vag fld) Not detected Not detected [facility] Parveen sp DNA JOHN+probe Ql (Vag fld) Not detected Not detected [facility] Comment on above: The Parveen species group target includes C. albicans, C. tropicalis, C. parapsilosis, and C. dubliniensis. Interpretation and review of laboratory results Normal [facility] T. vaginalis DNA JOHN+probe Ql (Unsp spec) Not detected Not detected [facility] C. glabrata RNA JOHN+probe Ql (Vag fld) Not detected Normal Not detected [facility] Comment on above: Order Comment: Speci men Type: SWABOrdering Facility: [facility] Address: [address] [place] [address] Performed By: #### B VAMP, CVTV ####[facility] LABCLIA [id number] [place] [address] [place] Parveen sp DNA JOHN+probe Ql (Vag fld) Not detected Normal Not detected [facility] Comment on above: Order Comment: Speci men Type: SWABOrdering Facility: [facility] Address: [address] [place] [address] Result Comment: The Parveen species group target includes C. albicans, C. tropicalis, C. parapsilosis, and C. dubliniensis. Performed By: #### B VAMP, CVTV ####[facility] LABCLIA [id number] [address] [place] T. vaginalis DNA JOHN+probe Ql (Unsp spec) Not detected Normal Not detected [facility] Comment on above: Order Comment: Speci men Type: SWABOrdering Facility: [facility] Address: [address] [place] [address] [place] [address] Performed By: #### B VAMP, CVTV ####[facility] LABCLIA [id number] [address] [place] UA DIP, URINE (POC)on 2024 BILIRUBIN UA (POCT) Negative Negative [facility] CLARITY UA (POCT) [facility] COLOR UA (POCT) Yellow [facility] GLUCOSE UA (POCT) Negative Negative mg/dL [facility] Hemoglobin Ql (U) Negative Negative [facility] KETONE UA (POCT) Negative Negative mg/dL [facility] LEUKOCYTES UA (POCT) Negative Negative [facility] NITRITE UA (POCT) Negative Negative [facility] PH UA (POCT) 7.0 4.5 - 8.0 [facility] Protein Ql (U) Negative Negative mg/dL [facility] [facility] SPECIFIC GRAVITY UA (POCT) 1.010 1.005 - 1.030 [facility] UROBILINOGEN UA (POCT) 0.2 Normal E.U./d L [facility] Location:[facility], [address] , [place], [address] [facility] POINT OF CARE [facility] Urine Cultureon 02-06-2025 UR Culture exhibits no growth. Normal [facility] Comment on above: Performed By: #### M 100.7687 #### [facility] Laboratory [address] [place], [place], [id number] CNPMissy 02-05-2025 CNPN Telephone (OBKontikiW) PAL NICHOLAS Radha ([id number]) 3 F Date Time Provider Department 02/05/25 LYNNETTE TAPIA During your visit today, we [...] of fluid. Patient advised to go to [facility] for evaluation. [facility] notified. Jocelyne Black RN Allergies As of [...] Status:Closed by JOCELYNE BLACK on 02/05/25 Normal [facility] OB Triage Physician Noteon 0 02-05-2025 OB Triage Physician Note [facility] Medical Records Department [address] [place] [address] OB Triage Physician Note 02/05/25 1742 MR#: [id number] Acct: [id number] Name: PAL NICHOLAS Rep #: [id number] : 2005 19 From: Lynnette Tapia CNM PCP: Care Physician,No Primary Status:REG CLI Y Location: [place] [address] HPI - General General Chief Complaint: ctx's [...] Suprapubic pain: (3) History of UTI: (4) [place] Zaragoza' contraction: COMMENT: cervix closed (5) 23 weeks gestation of : PLAN: Plan Positive movements Increase fluids CE - closed/ unchanged Continue taking Macrobid 100 mg Po BID- did not take dose today D/C home with follow up in office 02/05/25 8342 Date Lynnette Tapia CNM Cosigner Signature (if applicable): Date _ CC: HUMPHREY Tapia; No Primary Care Physician Signed Normal [facility] Bilirubin Test strip Ql (U)O rdered By: Ramakrishna Corley on 02-04-2025 Bilirubin Ql (U) Negative Negative [facility] Ketones Test strip Ql (U)Ord ered By: Ramakrishna Corley on 02-04-2025 Ketones Ql (U) Negative Negative [facility] Nitrite Test strip Ql (U)Ord ered By: Ramakrishna Corley on 02-04-2025 Nitrite Ql (U) Negative Negative [facility] OB Triage Physician Noteon 0 02-04-2025 OB Triage Physician Note [facility] Medical Records Department [address] [place] [address] OB Triage Physician Note 02/04/25 1795 MR#: [id number] Acct: [id number] Name: PAL NICHOLAS Rep #: [id number] : 2005 19 From: Ramakrishna Corley DO PCP: Care Physician,No Primary Status:REG CLI Y Location: [address] Date of Service: 02/04/25 Chief Complaint: ctx's HPI Narrative PAL NICHOLAS, is a 19 F who presents ctx's. She states she has had contractions and abdominal pain for 1-2 weeks. Went to [facility] 2 weeks ago for this and had [...] vb or lof. No constipation or diarrhea. [facility] Medical History (Updated 02/05/25 @ 00:00 [...] (1) 23 weeks gestation of : (2) [place] Zaragoza' contraction: COMMENT: cervix closed PLAN: Cervix [...] (if applicable): Date _ CC: Dr. Ramakrishna Corley, DO; No Primary Care Physician Signed Normal [facility] Protein Test strip Ql (U)Ord ered By: Ramakrishna Corley on 02-04-2025 Protein Ql (U) Negative Negative [facility] Urinalysis, Routine (Dipstic k)on 02-04-2025 BILIRUBIN URINE Negative Normal Negative [facility] Comment on above: Order Comment: CLEAN CATCH Performed By: #### L 400 #### [facility] [address] [place], [place], [id number] Clarity (U) Clear Normal Clear [facility] Comment on above: Order Comment: CLEAN CATCH Performed By: #### L 400 #### [facility] [address] [place], [place], [id number] Color (U) Yellow Normal Yellow [facility] Comment on above: Order Comment: CLEAN CATCH Performed By: #### L 400 #### [facility] [address] [place], [address] GLUCOSE, UR Normal Normal Normal [facility] Comment on above: Order Comment: CLEAN CATCH Performed By: #### L 400.2010 #### [facility] [address] [place], [address] KETONE UR Negative Normal Negative [facility] Comment on above: Order Comment: CLEAN CATCH Performed By: #### L 400.2010 #### [facility] [address] [place], [address] LEUK ESTERASE 25 /ul Abnormal Negative [facility] Comment on above: Order Comment: CLEAN CATCH Performed By: #### L 400.2010 #### [facility] [address] [place], [address] Nitrite Ql (U) Negative Normal Negative [facility] Comment on above: Order Comment: CLEAN CATCH Performed By: #### L 400.2010 #### [facility] [address] [place], [address] OCCULT BLOOD-UR Negative Normal Negative [facility] Comment on above: Order Comment: CLEAN CATCH Performed By: #### L 400.2010 #### [facility] [address] [place], [address] pH UR 6.5 Normal 5.0 - 8.0 [facility] Comment on above: Order Comment: CLEAN CATCH Performed By: #### L 400.2010 #### [facility] [address] [place], [address] PROT DIPSTX Negative Normal Negative [facility] Comment on above: Order Comment: CLEAN CATCH Performed By: #### L 400.2010 #### [facility] [address] [place], [address] SP.GR. DIPSTX 1.015 Normal 1.002-1.030 [facility] Comment on above: Order Comment: CLEAN CATCH Performed By: #### L 400.2010 #### [facility] [address] [place], [place], [address] UROBILI Normal Normal Normal [facility] Comment on above: Order Comment: CLEAN CATCH Performed By: #### L 400.2010 #### [facility] [address] [place], [place], [address] Urine Cultureon 02-04-2025 URC Culture exhibits no growth. Normal [facility] Comment on above: Performed By: #### M 100.2200 #### [facility] [address] [place], [place], [id number] Urine clarityOrdered By: Benjamin Corley on 02-04-2025 Clarity (U) Clear Clear [facility] Urine color determinationOrd ered By: Ramakrishna Corley on 02-04-2025 Color (U) Yellow Yellow [facility] Urine cultureOrdered By: Benjamin Corley on 02-04-2025 Bacteria identified Cx Nom (U) Culture exhibits no growth. [facility] Urine glucose detectionOrder ed By: Ramakrishna Corley on 02-04-2025 Glucose Ql (U) Normal mg/dl Normal [facility] Urine leukocyte esterase det ection by dipstickOrdered By: Ramakrishna Corley on 02-04-2025 Leukocyte esterase Test strip Ql (U) 25 /ul High Negative [facility] Urine pHOrdered By: Ramakrishna mcpherson on 02-04-2025 pH (U) 6.5 [pH] 5.0 - 8.0 [facility] Urine specific gravity measu rementOrdered By: Ramakrishna Corley on 02-04-2025 Specific gravity (U) [Rel density] 1.015 1.002-1.030 [facility] Urine urobilinogen measureme ntOrdered By: Ramakrishna Corley on 02-04-2025 Urobilinogen Ql (U) Normal mg/dl Normal [facility] Bilirubin Test strip Ql (U)O rdered By: Magda Aragon on 02-02-2025 Bilirubin Ql (U) Negative Negative [facility] Ketones Test strip Ql (U)Ord ered By: Magda Aragon on 02-02-2025 Ketones Ql (U) Negative Negative [facility] Microscopic analysis of urin e for red blood cells (RBC)Ordered By: Magda Aragon on 02-02-2025 Microscopic analysis of urine for red blood cells (RBC) 0 SEEN /hpf 0-5 [facility] Mucus LM Ql (Urine sed)Order ed By: Magda Aragon on 02-02-2025 Mucus Ql (Urine sed) 0 SEEN /hpf [facility] Nitrite Test strip Ql (U)Ord ered By: Magda Aragon on 02-02-2025 Nitrite Ql (U) Negative Negative [facility] OB Triage Physician Noteon 0 02-02-2025 OB Triage Physician Note [facility] Medical Records Department [address] [place] [address] OB Triage Physician Note 02/02/25 2336 MR#: [id number] Acct: [id number] Name: PAL NICHOLAS Rep #: [id number] : 2005 19 From: Magda Aragon MD PCP: Care Physician,No Primary Status:REG CLI Y Location: [address] HPI - General General Date of Admission: 02/02/25 Date of Service: 02/02/25 Chief Complaint: cramping HPI Narrative PAL NICHOLAS, is a 19 F who presents cramping. No bleeding. Some movement. Was seen in office today with normal discharge. Maternal Data Information Final AMARI: 05/31/25 Gestational age: 22 PFSH [facility] Medical History (Updated 02/02/25 @ 23:38 [...] Angel Zaragoza' contraction: COMMENT: cervix closed 02/02/25 9001 Date Magda Aragon MD Cosigner Signature (if applicable): Date _ CC: Dr. Magda Aragon MD; No Primary Care Physician Signed Normal [facility] Protein Test strip Ql (U)Ord ered By: Magda Aragon on 02-02-2025 Protein Ql (U) 15 mg/dl High Negative [facility] Squamous epithelial cells de tection in urine sediment by light microscopyOrdered By: Magda Aragon on 02-02-2025 Epithelial cells.squamous LM Ql (Urine sed) 0-5 SEEN /hpf 5-10 [facility] UA DIP, URINE (POC)on 2024 BILIRUBIN UA (POCT) Negative Negative [facility] CLARITY UA (POCT) Clear [facility] COLOR UA (POCT) Yellow [facility] GLUCOSE UA (POCT) Negative Negative mg/dL [facility] Hemoglobin Ql (U) Negative Negative [facility] KETONE UA (POCT) Negative Negative mg/dL [facility] LEUKOCYTES UA (POCT) Negative Negative [facility] NITRITE UA (POCT) Negative Negative [facility] PH UA (POCT) 7.0 4.5 - 8.0 [facility] Protein Ql (U) Negative Negative mg/dL [facility] SPECIFIC GRAVITY UA (POCT) 1.010 1.005 - 1.030 [facility] UROBILINOGEN UA (POCT) 0.2 Normal E.U./d L [facility] Location:[facility], [address], [place], [place], [id number] [place] [address] POINT OF CARE [facility] Urinalysis, Completeon 02-02 EPI,SQUAMOUS 0-5 SEEN Normal 5-10 [facility] Comment on above: Order Comment: CLEAN CATCH Performed By: #### L 400.0001 #### [facility] [address] [place], [address] BACTERIA 0 SEEN Normal None Seen [facility] Comment on above: Order Comment: CLEAN CATCH Performed By: #### L 400.0001 #### [facility] [address] [place], [address] Mucus Ql (Urine sed) 0 SEEN Normal [facility] Comment on above: Order Comment: CLEAN CATCH Performed By: #### L 400.0001 #### [facility] [address] [place], [address] RBC 0 SEEN Normal 0-5 [facility] Comment on above: Order Comment: CLEAN CATCH Performed By: #### L 400.0001 #### [facility] [address] [place], [address] WBC 0 SEEN Normal 0-5 [facility] Comment on above: Order Comment: CLEAN CATCH Performed By: #### L 400.0001 #### [facility] [address] [place], [address] BACTERIA Normal None Seen [facility] Comment on above: Order Comment: MINOO MCGILL TO SPECIFY Result Comment: Danita ellmanjula via OM: Order edited - Discontinuing original order Performed By: #### L 400.0001 #### [facility] [address] [place], [address] BILIRUBIN URINE Normal Negative [facility] Comment on above: Order Comment: MINOO MCGILL TO SPECIFY Result Comment: Danita elled via OM: Order edited - Discontinuing original order Performed By: #### L 400.0001 #### [facility] [address] [place], [address] Clarity (U) Normal Clear [facility] Comment on above: Order Comment: COLLE CTOR TO SPECIFY Result Comment: Canc elled via OM: Order edited - Discontinuing original order Performed By: #### L 400.0001 #### [facility] [address] [place], [address] Color (U) Normal Yellow [facility] Comment on above: Order Comment: COLLE CTOR TO SPECIFY Result Comment: Canc elled via OM: Order edited - Discontinuing original order Performed By: #### L 400.0001 #### [facility] [address] [place], [address] EPI,SQUAMOUS Normal 5-10 [facility] Comment on above: Order Comment: COLLE CTOR TO SPECIFY Result Comment: Canc elled via OM: Order edited - Discontinuing original order Performed By: #### L 400.0001 #### [facility] [address] [place], [address] GLUCOSE, UR Normal Normal [facility] Comment on above: Order Comment: COLLE CTOR TO SPECIFY Result Comment: Canc elled via OM: Order edited - Discontinuing original order Performed By: #### L 400.0001 #### [facility] [address] [place], [address] KETONE UR Normal Negative [facility] Comment on above: Order Comment: COLLE CTOR TO SPECIFY Result Comment: Canc elled via OM: Order edited - Discontinuing original order Performed By: #### L 400.0001 #### [facility] [address] [place], [address] LEUK ESTERASE Normal Negative [facility] Comment on above: Order Comment: COLLE CTOR TO SPECIFY Result Comment: Canc elled via OM: Order edited - Discontinuing original order Performed By: #### L 400.0001 #### [facility] [address] [place], [address] Mucus Ql (Urine sed) Normal [facility] Comment on above: Order Comment: COLLE CTOR TO SPECIFY Result Comment: Canc elled via OM: Order edited - Discontinuing original order Performed By: #### L 400.0001 #### [facility] [address] [place], [address] Nitrite Ql (U) Normal Negative [facility] Comment on above: Order Comment: COLLE CTOR TO SPECIFY Result Comment: Canc elled via OM: Order edited - Discontinuing original order Performed By: #### L 400.0001 #### [facility] [address] [place], [address] OCCULT BLOOD-UR Normal Negative [facility] Comment on above: Order Comment: COLLE CTOR TO SPECIFY Result Comment: Canc elled via OM: Order edited - Discontinuing original order Performed By: #### L 400.0001 #### [facility] [address] [place], [address] pH UR Normal 5.0 - 8.0 [facility] Comment on above: Order Comment: COLLE CTOR TO SPECIFY Result Comment: Canc elled via OM: Order edited - Discontinuing original order Performed By: #### L 400.0001 #### [facility] [address] [place], [address] PROT DIPSTX Normal Negative [facility] Comment on above: Order Comment: COLLE CTOR TO SPECIFY Result Comment: Canc elled via OM: Order edited - Discontinuing original order Performed By: #### L 400.0001 #### [facility] [address] [place], [address] RBC Normal 0-5 [facility] Comment on above: Order Comment: COLLE CTOR TO SPECIFY Result Comment: Canc elled via OM: Order edited - Discontinuing original order Performed By: #### L 400.0001 #### [facility] [address] [place], [address] SP.GR. DIPSTX Normal 1.002-1.030 [facility] Comment on above: Order Comment: COLLE CTOR TO SPECIFY Result Comment: Canc elled via OM: Order edited - Discontinuing original order Performed By: #### L 400.0001 #### [facility] [address] [place], [address] UR Preservative Normal [facility] Comment on above: Order Comment: COLLE CTOR TO SPECIFY Result Comment: Canc elled via OM: Order edited - Discontinuing original order Performed By: #### L 400.0001 #### [facility] [address] [place], [address] UROBILI Normal Normal [facility] Comment on above: Order Comment: COLLE CTOR TO SPECIFY Result Comment: Canc elled via OM: Order edited - Discontinuing original order Performed By: #### L 400.0001 #### [facility] [address] [place], [address] WBC Normal 0-5 [facility] Comment on above: Order Comment: COLLE CTOR TO SPECIFY Result Comment: Canc elled via OM: Order edited - Discontinuing original order Performed By: #### L 400.0001 #### [facility] [address] [place], [address] Urine clarityOrdered By: Jazmin Aragon on 02-02-2025 Clarity (U) Clear Clear [facility] Urine color determinationOrd ered By: Magda Aragon on 02-02-2025 Color (U) Straw Yellow [facility] Urine cultureOrdered By: Jazmin Aragon on 02-02-2025 Bacteria identified Cx Nom (U) Culture exhibits no growth. [facility] Urine glucose detectionOrder ed By: Magda Aragon on 02-02-2025 Glucose Ql (U) Normal mg/dl Normal [facility] Urine leukocyte esterase det ection by dipstickOrdered By: Magda Aragon on 02-02-2025 Leukocyte esterase Test strip Ql (U) Negative Negative [facility] Urine pHOrdered By: Magda Aragon on 02-02-2025 pH (U) 7.0 [pH] 5.0 - 8.0 [facility] Urine sediment bacteria coun t by microscopy (number/high power field)Ordered By: Magda Aragon on 02-02-2025 Bacteria LM.HPF (Urine sed) [#/Area] 0 /[HPF] None Seen [facility] Urine specific gravity measu rementOrdered By: Magda Aragon on 02-02-2025 Specific gravity (U) [Rel density] 1.010 1.002-1.030 [facility] Urine urobilinogen measureme ntOrdered By: Magda Aragon on 02-02-2025 Urobilinogen Ql (U) Normal mg/dl Normal [facility] White blood cell countOrdere d By: Magda Aragon on 02-02-2025 White blood cell count 0 SEEN /hpf 0-5 [facility] BACTERIAL VAGINOSIS NAATon 0 01-20-2025 Interpretation and review of laboratory results Normal [facility] Lactobacillus crispatus+gasseri+muniz ii + Gardnerella vaginalis + Atopobium vaginae rRNA JOHN+probe Ql (Vag fld) Not detected Not detected [facility] Lactobacillus crispatus+gasseri+muniz ii + Gardnerella vaginalis + Atopobium vaginae rRNA JOHN+probe Ql (Vag fld) Not detected Normal Not detected [facility] Comment on above: Order Comment: Speci men Type: SWABOrdering Facility: [facility] Address: [address] [place] [address] Performed By: #### B MARCY CONDONTV ####[facility] LABCLIA [id number] [place] [address] [place] PARVEEN/TRICHOMONAS NAATon 0 01-20-2025 C. glabrata RNA JOHN+probe Ql (Vag fld) Not detected Not detected [facility] Parveen sp DNA JOHN+probe Ql (Vag fld) Not detected Not detected [facility] Comment on above: The Parveen species group target includes C. albicans, C. tropicalis, C. parapsilosis, and C. dubliniensis. Interpretation and review of laboratory results Normal [facility] T. vaginalis DNA JOHN+probe Ql (Unsp spec) Not detected Not detected [facility] C. glabrata RNA JOHN+probe Ql (Vag fld) Not detected Normal Not detected [facility] Comment on above: Order Comment: Speci men Type: SWABOrdering Facility: [facility] Address: [address] [place] [address] Performed By: #### B VAMP, CVTV ####[facility] LABCLIA [id number] [address] Parveen sp DNA JOHN+probe Ql (Vag fld) Not detected Normal Not detected [facility] Comment on above: Order Comment: Speci men Type: SWABOrdering Facility: [facility] Address: [address] [place] [address] Result Comment: The Parveen species group target includes C. albicans, C. tropicalis, C. parapsilosis, and C. dubliniensis. Performed By: #### B VAMP, CVTV ####[facility] LABCLIA [id number] [place] [address] [place] T. vaginalis DNA JOHN+probe Ql (Unsp spec) Not detected Normal Not detected [facility] Comment on above: Order Comment: Speci men Type: SWABOrdering Facility: [facility] Address: [address] [place] [address] Performed By: #### B VAMP, CVTV ####[facility] LABCLIA [id number] [place] [address] [place] [id number] 01-19-2025 [id number] HNO ID: [id number] Author: ARMIDA SMITH RN Service: ? Author Type: Registered Nurse Type: [id number] Filed: 01/19/2025 03:42 Note Text: Precautions given, patient verbalized understanding. Instructed to call her OB doctor for follow up. Normal [facility] Bacteria Ur Culton 08-26-202 5 Bacteria identified Cx Nom (U) CULTURE, URINE: No growth (<1,000 CFU/ml) Normal [facility] Comment on above: Performed By: #### H STNT #### [facility] CLIA [id number] [address] [place] [address] [place] [address] ABD/PEL WO IVCONon 2024 CT ABD/PEL WO IVCON * * *Final Report* * * DATE OF EXAM: Jan 19 2025 12:50AM [facility] 0531 - CT ABD/PEL WO IVCON / [...] noncontrast CT. Recommend correlation with obstetric ultrasound. Automatic Presser: HIEU Transcribe Date/Time: Jan 19 2025 2:36A Dictated by : BONIFACIO GAYLE DO This examination was interpreted and the report reviewed and electronically signed by: BONIFACIO GAYLE DO on Jan 19 2025 2:54AM EST [id number] Normal [facility] CBC panel Auto (Bld)on 01-18 Erythrocyte distribution width (RBC) [Ratio] 14.1 % Normal 11.5-15.0 [facility] Comment on above: Order Comment: Destini thorpe Type: BLOOD SPECIMEN [facility]ing Facility: [facility] Address: [address] [place] [address] Performed By: #### 5 8410-2 #### [facility] CLIA [id number] [address] [place] Hematocrit (Bld) [Volume fraction] 34.6 % Low 36.0-46.0 [facility] Comment on above: Order Comment: Destini thorpe Type: BLOOD SPECIMEN Ordering Facility: [facility] Address: [address] [place] [address] Performed By: #### 5 8410-2 #### [facility] CLIA [id number] [address] [place] Hemoglobin (Bld) [Mass/Vol] 11.5 g/dL Normal 11.5-15.5 [facility] Comment on above: Order Comment: Speci men Type: BLOOD SPECIMEN Ordering Facility: [facility] Address: [address] [place] [address] Performed By: #### 5 8410-2 #### [facility] CLIA [id number] [address] [place] MCH (RBC) [Entitic mass] 31.0 pg Normal 26.0-34.0 [facility] Comment on above: Order Comment: Shannani men Type: BLOOD SPECIMEN Ordering Facility: [facility] Address: [address] [place] [address] Performed By: #### 5 8410-2 #### [facility] CLIA [id number] [address] MCHC (RBC) [Mass/Vol] 33.2 g/dL Normal 30.5-36.0 [facility] Comment on above: Order Comment: Speci men Type: BLOOD SPECIMEN Ordering Facility: [facility] Address: [address] [place] [address] Performed By: #### 5 8410-2 #### [facility] CLIA [id number] [address] MCV (RBC) [Entitic vol] 93.3 fL Normal 80.0-100.0 [facility] Comment on above: Order Comment: Speci men Type: BLOOD SPECIMEN Ordering Facility: [facility] Address: [address] [place] [address] Performed By: #### 5 8410-2 #### [facility] CLIA [id number] [address] OF [facility] Nucleated RBC (Bld) [#/Vol] 10*3/uL Normal <0.01 [facility] Comment on above: Order Comment: Speci men Type: BLOOD SPECIMEN Ordering Facility: [facility] Address: [address] [place] [address] Performed By: #### 5 8410-2 #### [facility] CLIA [id number] [address] [place] Platelet mean volume (Bld) [Entitic vol] 9.2 fL Normal 9.0-12.7 [facility] Comment on above: Order Comment: Speci men Type: BLOOD SPECIMEN Ordering Facility: [facility] Address: [address] [place] [address] Performed By: #### 5 8410-2 #### [facility] CLIA [id number] [address] [place] Platelets (Bld) [#/Vol] 242 10*3/uL Normal 150-400 [facility] Comment on above: Order Comment: Speci men Type: BLOOD SPECIMEN Ordering Facility: [facility] Address: [address] [place] [address] Performed By: #### 5 8410-2 #### [facility] CLIA [id number] [address] RBC (Bld) [#/Vol] 3.71 10*6/uL Low 3.90-5.20 [facility] Comment on above: Order Comment: Speci men Type: BLOOD SPECIMEN Ordering Facility: [facility] Address: [address] [place] [address] Performed By: #### 5 8410-2 #### [facility] CLIA [id number] [address] WBC (Bld) [#/Vol] 10.04 10*3/uL Normal 3.70-11.00 [facility] Comment on above: Order Comment: Speci men Type: BLOOD SPECIMEN Ordering Facility: [facility] Address: [address] [place] [address] Performed By: #### 5 8410-2 #### [facility] CLIA [id number] [address] [facility]y [facility] PAL NICHOLAS ([id number]) 3 F Date Time Provider Department 01/18/25 LYNNETTE TAPIA OBLUKE During your visit today, we recorded the following information about you: Isaura Pereira RN 01/18/2025 8:46 AM Signed Breast pump order received from [facility]. To to sign. LEVON Hutson Lindsey, RN [...] Status:Closed by JOCELYNE BLACK on 01/20/25 Normal [facility] metabolic 2000 panelon 01-18-2025 Albumin [Mass/Vol] 3.8 g/dL Low 3.9-4.9 [facility] Comment on above: Order Comment: Speci men Type: BLOOD SPECIMEN Ordering Facility: [facility] Address: [address] [place] [address] Performed By: #### H STNT #### [facility] CLIA [id number] [address] ALP [Catalytic activity/Vol] 57 U/L Normal 34-123 [facility] Comment on above: Order Comment: Speci men Type: BLOOD SPECIMEN Ordering Facility: [facility] Address: [address] [place] [address] Performed By: #### H STNT #### [facility] CLIA [id number] [address] ALT With P-5'-P [Catalytic activity/Vol] 11 U/L Normal 7-38 [facility] Comment on above: Order Comment: Speci men Type: BLOOD SPECIMEN Ordering Facility: [facility] Address: [address] [place] [address] Performed By: #### H STNT #### [facility] CLIA [id number] [address] Anion gap [Moles/Vol] 12 mmol/L Normal 8-15 [facility] Comment on above: Order Comment: Speci men Type: BLOOD SPECIMEN Ordering Facility: [facility] Address: [address] [place] [address] Performed By: #### H STNT #### [facility] CLIA [id number] [address] [place] AST With P-5'-P [Catalytic activity/Vol] 16 U/L Normal 13-35 [facility] Comment on above: Order Comment: Speci men Type: BLOOD SPECIMEN Ordering Facility: [facility] Address: [address] [place] [address] Performed By: #### H STNT #### [facility] CLIA [id number] [address] [place] Bilirubin [Mass/Vol] 0.3 mg/dL Normal 0.2-1.3 [facility] Comment on above: Order Comment: Speci men Type: BLOOD SPECIMEN Ordering Facility: [facility] Address: [address] [place] [address] Performed By: #### H STNT #### [facility] CLIA [id number] 1 [place] [address] [place] Calcium [Mass/Vol] 8.6 mg/dL Normal 8.5-10.2 [facility] Comment on above: Order Comment: Speci men Type: BLOOD SPECIMEN Ordering Facility: [facility] Address: [address] [place] [address] Performed By: #### H STNT #### [facility] CLIA [id number] 1 [place] [address] [place] Chloride [Moles/Vol] 103 mmol/L Normal 98-107 [facility] Comment on above: Order Comment: Speci men Type: BLOOD SPECIMEN Ordering Facility: [facility] Address: [address] [place] [address] Performed By: #### H STNT #### [facility] CLIA [id number] 1 [place] [address] [place] CO2 [Moles/Vol] 22 mmol/L Normal 22-30 [facility] Comment on above: Order Comment: Speci men Type: BLOOD SPECIMEN Ordering Facility: [facility] Address: [address] [place] [address] Performed By: #### H STNT #### [facility] CLIA [id number] 1 [place] [address] [place] Creatinine [Mass/Vol] 0.50 mg/dL Low 0.58-0.96 [facility] Comment on above: Order Comment: Shannanelsa thorpe Type: BLOOD SPECIMEN Ordering Facility: [facility] Address: [address] [place] [address] Performed By: #### H STNT #### [facility] CLIA [id number] 1 [place] [address] [place] eGFRcr SerPlBld CKD-EPI 2020 138 mL/min/1.73m??? Normal >=60 [facility] Comment on above: Order Comment: Destini thorpe Type: BLOOD SPECIMEN Ordering Facility: [facility] Address: [address] [place] [address] Result Comment: Shilpa mated Glomerular Filtration Rate [...] reflect actual GFR. Performed By: #### H STNT #### [facility] CLIA [id number] [address] [place] [address] [place] Glucose [Mass/Vol] 63 mg/dL Low 74-99 [facility] Comment on above: Order Comment: Shannanelsa thorpe Type: BLOOD SPECIMEN Ordering Facility: [facility] Address: [address] [place] [address] Result Comment: The [place] Diabetes Association (ADA) provides guidance for cutoff [...] Standards of Medical Care in Diabetes 2016, [place] Diabetes Association. Diabetes Care. 2016.39(Suppl 1). Performed By: #### H STNT #### [facility] CLIA [id number] [address] Potassium [Moles/Vol] 3.8 mmol/L Normal 3.7-5.1 [facility] Comment on above: Order Comment: Speci men Type: BLOOD SPECIMEN Ordering Facility: [facility] Address: [address] [place] [address] Performed By: #### H STNT #### [facility] CLIA [id number] [address] Protein [Mass/Vol] 6.5 g/dL Normal 6.3-8.0 [facility] Comment on above: Order Comment: Speci men Type: BLOOD SPECIMEN Ordering Facility: [facility] Address: [address] [place] [address] Performed By: #### H STNT #### [facility] CLIA [id number] [address] Sodium [Moles/Vol] 137 mmol/L Normal 136-144 [facility] Comment on above: Order Comment: Speci men Type: BLOOD SPECIMEN Ordering Facility: [facility] Address: [address] [place] [address] Performed By: #### H STNT #### [facility] CLIA [id number] [address] Urea nitrogen [Mass/Vol] 4 mg/dL Low 7-21 [facility] Comment on above: Order Comment: Speci men Type: BLOOD SPECIMEN Ordering Facility: [facility] Address: [address] [place] [address] Performed By: #### H STNT #### [facility] CLIA [id number] [address] Landen 01-14-2025 [place] Telephone (OBGYWM) PAL NICHOLAS ([id number]) 3 F Date Time Provider Department 01/14/25 [...] affecting (HCC) *01/06/2025 19 weeks gestation of ([facility]) [Z3A.19] 01/06/2025 01/13/2025 Pelvic pressure in (HCC) [O26.899, R1*01/06/2025 Prescriptions ordered this encounter Disp Refills Start End NITROFURANTOIN MONOHYDRATE AND MACROCR* 14 c* 0 01/14/2025 01/21/2025 Route: PO Sig: Take 1 capsule by mouth two times a day for 7 days. Encounter Status:Closed by RAMAKRISHNA CORLEY on 01/14/25 Normal [facility] Examination level ultrasound on 01-12-2025 Indication [...] 12 oz EFW by: Hadlock (HC-AC-FL) Extended Cement Fittings Maker 6.6 mm CM 6.6 mm 90% Nicolaides [...] normal LVOT view: normal 3-vessel view: normal 1-hkbple-ilwalnm view: normal Heart / Thorax Situs: situs [...] Read By: Tiffanie Barrios M.D. MATERNAL MEDICINE [facility] TSH W/REFLEX FT4on 5 TSH Qn 1.510 m[IU]/L Normal 0.510-4.300 [facility] Comment on above: Order Comment: Speci men Type: BLOOD SPECIMENOrdering Facility: [facility] Address: [address] [place] [address] Result Comment: If t he patient is , TSH reference range varies by gestational period: First Trimester (weeks 9-12): 0.180-2.990 mIU/L Second Trimester: 0.110-3.980 mIU/L Third Trimester: 0.480-4.710 mIU/L Garry Rizvi et al. A Practical Approach for the Verifications and Determination of Site- and Trimester-Specific Reference Intervals for Thyroid Function tests in . Thyroid, 2019:29:3:412-420. Keagan Dimas, et al. 2017 Guidelines of the [place] Thyroid Association for the Diagnosis and Management of Thyroid Disease during and the . Thyroid, 2017:27:3:315-389. Performed By: #### T [facility] ####[facility]CLIA [id number] [place] [address] [place] BACTERIAL VAGINOSIS NAATon 0 01-11-2025 Lactobacillus crispatus+gasseri+muniz ii + Gardnerella vaginalis + Atopobium vaginae rRNA JOHN+probe Ql (Vag fld) Not detected Normal Not detected [facility] Comment on above: Order Comment: Speci men Type: SWABOrdering Facility: [facility] Address: [address] [place] [address] Performed By: #### B VAMP, CVTV ####[facility]CLIA [id number] [place] [address] [place] Bacteria Ur Culton 5 Bacteria identified Cx Nom (U) ORGANISM ID: 1 <10,000 CFU/ml Enterococcus faecalis Insignificant colony count. No further workup. Cephalosporins, clindamycin, and TMP-SMX are not effective for the treatment of enterococcal infections. Normal [facility] Comment on above: Performed By: #### 6 30-4 ####[facility] LABCLIA [id number] [place] [address] [place] PARVEEN/TRICHOMONAS NAATon 0 01-11-2025 C. glabrata RNA JOHN+probe Ql (Vag fld) Not detected Normal Not detected [facility] Comment on above: Order Comment: Speci men Type: SWABOrdering Facility: [facility] Address: [address] [place] [address] Performed By: #### B VAMP, CVTV ####[facility] LABCLIA [id number] [place] [address] [place] Parveen sp DNA JOHN+probe Ql (Vag fld) Not detected Normal Not detected [facility] Comment on above: Order Comment: Speci men Type: SWABOrdering Facility: [facility] Address: [address] [place] [address] Result Comment: The Parveen species group target includes C. albicans, C. tropicalis, C. parapsilosis, and C. dubliniensis. Performed By: #### B VAMP, CVTV ####[facility] LABCLIA [id number] [place] [address] [place] T. vaginalis DNA JOHN+probe Ql (Unsp spec) Not detected Normal Not detected [facility] Comment on above: Order Comment: Speci men Type: SWABOrdering Facility: [facility] Address: [address] [place] [address] Performed By: #### AAYUSH OROZCO ####[facility] LABCLIA [id number] [facility] [id number] [place] [address] [place] Examination level ultrasound on 01-11-2025 Radiology Study observation (narrative) [facility] UA DIP, URINE (POC)on 2024 BILIRUBIN UA (POCT) Negative Negative [facility] CLARITY UA (POCT) [facility] COLOR UA (POCT) Yellow [facility] GLUCOSE UA (POCT) Negative Negative mg/dL [facility] Hemoglobin Ql (U) Negative [facility] Interpretation and review of laboratory results Abnormal [facility] KETONE UA (POCT) Negative Negative mg/dL [facility] LEUKOCYTES UA (POCT) Trace Abnormal Negative [facility] NITRITE UA (POCT) Negative Negative [facility] PH UA (POCT) 6.0 4.5 - 8.0 [facility] Protein Ql (U) Negative Negative mg/dL [facility] SPECIFIC GRAVITY UA (POCT) 1.020 1.005 - 1.030 [facility] UROBILINOGEN UA (POCT) 0.2 Normal E.U./d L [facility] Location:[facility], [address], [place], [place], [id number] [place] [address] POINT OF CARE [facility] Landen 01-07-2025 NELDAN Telephone (NANNETTEPRAD) PAL NICHOLAS ([id number]) 3 F Date Time Provider Department 01/07/25 EJ RODRIGUEZ During your visit today, we recorded the following information about you: Ej Rodriguez MD 01/07/2025 12:41 PM Signed Patient was seen by resident but not by any attending appeals rn while in labor and delivery she is and carries diagnosis of Myles-Danlos syndrome and POTS. She needs a new patient general cardiology appointment in the next 1 to 4 weeks. Please try to arrange this. If there are no spots or anyone let me know thanks MD Andrae Vivas Kari 01/08/2025 2:39 PM Signed Scheduled 02/05/[address] Burns. Kari Abebe Allergies As of Date: 01/07/2025 (No Known Allergies) Date Reviewed: 01/06/2025 Reviewed by: Aleksandra Rodriguez RN - Fully Assessed Reason for Visit: Appointment [...] EJ RODRIGUEZ on 01/12/25 Normal [facility] Basic metabolic 2000 panelon 01-06-2025 Anion gap [Moles/Vol] 12 mmol/L Normal 8-15 [facility] Comment on above: Order Comment: Speci men Type: BLOOD SPECIMEN Ordering Facility: [facility] Address: [address] [place] [address] Performed By: #### H STNT, 57238-9 #### [facility] CLIA [id number] 1 [place] [address] [place] Calcium [Mass/Vol] 8.6 mg/dL Normal 8.5-10.2 [facility] Comment on above: Order Comment: Speci men Type: BLOOD SPECIMEN Ordering Facility: [facility] Address: [address] [place] [address] Performed By: #### H STNT, 22557-3 #### [facility] CLIA [id number] 1 [place] [address] [place] Chloride [Moles/Vol] 104 mmol/L Normal 98-107 [facility] Comment on above: Order Comment: Speci men Type: BLOOD SPECIMEN Ordering Facility: [facility] Address: [address] [place] [address] Performed By: #### H STNT, 01387-2 #### [facility] CLIA [id number] 1 [place] [address] [place] CO2 [Moles/Vol] 20 mmol/L Low 22-30 [facility] Comment on above: Order Comment: Speci men Type: BLOOD SPECIMEN Ordering Facility: [facility] Address: [address] [place] [address] Performed By: #### H STNT, 54769-1 #### [facility] CLIA [id number] 1 [place] [address] [place] Creatinine [Mass/Vol] 0.47 mg/dL Low 0.58-0.96 [facility] Comment on above: Order Comment: Destini thorpe Type: BLOOD SPECIMEN Ordering Facility: [facility] Address: [address] [place] [address] Performed By: #### H STNT, 10122-0 #### [facility] CLIA [id number] [address] [place] eGFRcr SerPlBld CKD-EPI 2020 140 mL/min/1.73m??? Normal >=60 [facility] Comment on above: Order Comment: Destini thorpe Type: BLOOD SPECIMEN Ordering Facility: [facility] Address: [address] [place] [address] Result Comment: Shilpa mated Glomerular Filtration Rate [...] reflect actual GFR. Performed By: #### H STNT, 28223-2 #### [facility] CLIA [id number] [address] [place] Glucose [Mass/Vol] 78 mg/dL Normal 74-99 [facility] Comment on above: Order Comment: Destini thorpe Type: BLOOD SPECIMEN Ordering Facility: [facility] Address: [address] [place] [address] Result Comment: The [place] Diabetes Association (ADA) provides guidance for cutoff [...] Standards of Medical Care in Diabetes 2016, [place] Diabetes Association. Diabetes Care. 2016.39(Suppl 1). Performed By: #### H STNT, 61536-2 #### [facility] CLIA [id number] [address] [place] Potassium [Moles/Vol] 3.7 mmol/L Normal 3.7-5.1 [facility] Comment on above: Order Comment: Speci men Type: BLOOD SPECIMEN Ordering Facility: [facility] Address: [address] [place] [address] Performed By: #### H STNT, 76406-7 #### [facility] CLIA [id number] [address] STATES OF [facility] Sodium [Moles/Vol] 136 mmol/L Normal 136-144 [facility] Comment on above: Order Comment: Speci men Type: BLOOD SPECIMEN Ordering Facility: [facility] Address: [address] [place] [address] Performed By: #### H STNT, 01658-6 #### [facility] CLIA [id number] [address] STATES OF [facility] Urea nitrogen [Mass/Vol] 8 mg/dL Normal 7-21 [facility] Comment on above: Order Comment: Speci men Type: BLOOD SPECIMEN Ordering Facility: [facility] Address: [address] [place] [address] Performed By: #### H STNT, 22459-2 #### [facility] CLIA [id number] [address] [place] C. trachomatis+N. gonorrhoea e DNA JOHN+probe Ql (Unsp spec)on 01-06-2025 C. trachomatis rRNA JOHN+probe Ql (Unsp spec) Not detected Normal Not detected [facility] Comment on above: Order Comment: Speci men Type: SWAB Ordering Facility: [facility] Address: [address] [place] [address] Performed By: #### T RVAMP, 79010-7 #### [facility] CLIA [id number] [address] N. gonorrhoeae rRNA JOHN+probe Ql (Unsp spec) Not detected Normal Not detected [facility] Comment on above: Order Comment: Speci men Type: SWAB Ordering Facility: [facility] Address: [address] [place] [address] Performed By: #### T RVAMP, 49479-7 #### [facility] CLIA [id number] [address] OF [facility] CBC panel Auto (Bld)on 01-06 Erythrocyte distribution width (RBC) [Ratio] 13.7 % Normal 11.5-15.0 [facility] Comment on above: Order Comment: Speci men Type: BLOOD SPECIMEN Ordering Facility: [facility] Address: [address] [place] [address] Performed By: #### H STNT, 72626-5 #### [facility] CLIA [id number] [address] Hematocrit (Bld) [Volume fraction] 36.1 % Normal 36.0-46.0 [facility] Comment on above: Order Comment: Speci men Type: BLOOD SPECIMEN Ordering Facility: [facility] Address: [address] [place] [address] Performed By: #### H STNT, 71204-6 #### [facility] CLIA [id number] [address] OF [facility] Hemoglobin (Bld) [Mass/Vol] 12.3 g/dL Normal 11.5-15.5 [facility] Comment on above: Order Comment: Speci men Type: BLOOD SPECIMEN Ordering Facility: [facility] Address: [address] [place] [address] Performed By: #### H STNT, 85281-5 #### [facility] CLIA [id number] [address] MCH (RBC) [Entitic mass] 30.8 pg Normal 26.0-34.0 [facility] Comment on above: Order Comment: Speci men Type: BLOOD SPECIMEN Ordering Facility: [facility] Address: [address] [place] [address] Performed By: #### H STNT, 60593-5 #### [facility] CLIA [id number] [address] MCHC (RBC) [Mass/Vol] 34.1 g/dL Normal 30.5-36.0 [facility] Comment on above: Order Comment: Speci men Type: BLOOD SPECIMEN Ordering Facility: [facility] Address: [address] [place] [address] Performed By: #### H STNT, 40326-5 #### [facility] CLIA [id number] [address] MCV (RBC) [Entitic vol] 90.3 fL Normal 80.0-100.0 [facility] Comment on above: Order Comment: Speci men Type: BLOOD SPECIMEN Ordering Facility: [facility] Address: [address] [place] [address] Performed By: #### H STNT, 35949-6 #### [facility] CLIA [id number] [address] Nucleated RBC (Bld) [#/Vol] 10*3/uL Normal <0.01 [facility] Comment on above: Order Comment: Speci men Type: BLOOD SPECIMEN Ordering Facility: [facility] Address: [address] [place] [address] Performed By: #### H STNT, 52941-2 #### [facility] CLIA [id number] [address] Platelet mean volume (Bld) [Entitic vol] 9.3 fL Normal 9.0-12.7 [facility] Comment on above: Order Comment: Speci men Type: BLOOD SPECIMEN Ordering Facility: [facility] Address: [address] [place] [address] Performed By: #### H STNT, 20161-0 #### [facility] CLIA [id number] [address] [facility] Platelets (Bld) [#/Vol] 248 10*3/uL Normal 150-400 [facility] Comment on above: Order Comment: Speci men Type: BLOOD SPECIMEN Ordering Facility: [facility] Address: [address] [place] [address] Performed By: #### H STNT, 83071-0 #### [facility] CLIA [id number] [address] [facility] RBC (Bld) [#/Vol] 4.00 10*6/uL Normal 3.90-5.20 [facility] Comment on above: Order Comment: Speci men Type: BLOOD SPECIMEN Ordering Facility: [facility] Address: [address] [place] [address] Performed By: #### H STNT, 30346-4 #### [facility] CLIA [id number] [address] WBC (Bld) [#/Vol] 10.26 10*3/uL Normal 3.70-11.00 [facility] Comment on above: Order Comment: Speci men Type: BLOOD SPECIMEN Ordering Facility: [facility] Address: [address] [place] [address] Performed By: #### H STNT, 44518-0 #### [facility] CLIA [id number] [address] [facility] Landen 01-06-2025 CNPN Telephone (LORENAGYWM) PAL NICHOLAS ([id number]) 3 F Date Time Provider Department 01/06/25 AZAEL, KARINA OBGYWM During your visit today, we recorded [...] 01/05 telephone notes. Patient was seen at [facility] OB ED triage on 01/04. The diarrhea has resolved. Advised that she go back to [facility] as the office is closing. Patient asked for an appointment tomorrow instead because of transportation. No available appointments. Advised that she should be evaluated today in case she is having labor. Voiced understanding and believes she could have a friend take her. LEVON Driver Rebecca L, MD 01/07/2025 10:00 AM Signed If not improved work in any cancellations, go to [facility] for eval or schedule tomorrow if openings. MD Honey Begum Lindsey, RN 01/07/2025 10:36 AM Signed Patient was seen at [facility] last night. She has OB and MFM [...] Encounter Status:Closed by KARINA ADDISON on 01/07/25 [facility] CONSULTon 01-06-2025 CONSULT HNO ID: [id number] Author: EJ RODRIGUEZ MD Service: Nephrology Author [...] not on any medications. She moved from [place] and previously was on beta-luana however stopped [...] V4 PAST MEDICAL HISTORY Diagnosis Date Asthma ([facility]) 2012 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HCC) POTS (postural orthostatic tachycardia [...] discharged so (more content not included)... Normal [facility] ECG COMPLETEon 01-06-2025 ECG COMPLETE Ventricular Rate : 79 BPM Atrial Rate : 79 BPM P-R Interval : 120 ms QRS Duration : 76 ms Q-T Interval : 350 ms QTC Calculation(Bazett) : 401 ms Calculated P Leslie : -18 degrees Calculated R Leslie : 148 degrees Calculated T Leslie : -28 degrees NORMAL SINUS RHYTHM RIGHT AXIS DEVIATION LOW VOLTAGE QRS CANNOT RULE OUT INFERIOR INFARCT , AGE UNDETERMINED T WAVE ABNORMALITY, CONSIDER ANTERIOR ISCHEMIA ABNORMAL ECG WHEN COMPARED WITH ECG OF 05-Jan-2025 00:20, QRS AXIS SHIFTED RIGHT Confirmed by MD NAPIER VINAY ([id number]) on 01/07/2025 11:39:00 AM NAME : PAL NICHOLAS PID : [id number] : 2005 Gender : Female Race : ORD : [id number] Procedure Date : Jan 06 2025 20:38:59 Edit Date : Jan 07 2025 11:39:11 Diagnosis: NORMAL SINUS RHYTHM RIGHT AXIS DEVIATION LOW VOLTAGE QRS CANNOT RULE OUT INFERIOR INFARCT , AGE UNDETERMINED T WAVE ABNORMALITY, CONSIDER ANTERIOR ISCHEMIA ABNORMAL ECG WHEN COMPARED WITH ECG OF 05-Jan-2025 00:20, QRS AXIS SHIFTED RIGHT Confirmed by MD NAPIER VINAY ([id number]) on 01/07/2025 11:39:00 AM Test Reason : Chest Pain Location : 200 : [facility] Overread By : MD NAPIER VINAY Edited By : MD NAPIER VINAY Referred By : , Acquired by : ZUNILDA FULLER [facility] HIGH SENSITIVITY TROPONIN To n 01-06-2025 Troponin T.cardiac High sensitivity method [Mass/Vol] <6 Normal <12 [facility] Comment on above: Order Comment: Speci men Type: BLOOD SPECIMEN Ordering Facility: [facility] Address: [address] [place] [address] Performed By: #### H STNT #### [facility] CLIA [id number] [address] Troponin T.cardiac High sensitivity method [Mass/Vol] <6 Normal <12 [facility] Comment on above: Order Comment: Speci men Type: BLOOD SPECIMEN Ordering Facility: [facility] Address: [address] [place] [address] Performed By: #### H STNT, 21977-0 #### [facility] CLIA [id number] [address] [facility] TRICHOMONAS VAGINALIS NAATon 01-06-2025 T. vaginalis DNA JOHN+probe Ql (Unsp spec) Not detected Normal Not detected [facility] Comment on above: Order Comment: Speci men Type: SWAB Ordering Facility: [facility] Address: [address] [place] [address] Performed By: #### T RVAMP, 18937-2 #### [facility] CLIA [id number] [address] [facility] CBC panel Auto (Bld)on 01-05 Erythrocyte distribution width (RBC) [Ratio] 14.0 % Normal 11.5-15.0 [facility] Comment on above: Order Comment: Speci men Type: BLOOD SPECIMEN Ordering Facility: [facility] Address: [address] [place] [address] Performed By: #### 5 8410-2 #### [facility] CLIA [id number] [address] [place] Hematocrit (Bld) [Volume fraction] 33.6 % Low 36.0-46.0 [facility] Comment on above: Order Comment: Speci men Type: BLOOD SPECIMEN Ordering Facility: [facility] Address: [address] [place] [address] Performed By: #### 5 8410-2 #### [facility] CLIA [id number] [address] [place] Hemoglobin (Bld) [Mass/Vol] 11.4 g/dL Low 11.5-15.5 [facility] Comment on above: Order Comment: Speci men Type: BLOOD SPECIMEN Ordering Facility: [facility] Address: [address] [place] [address] Performed By: #### 5 8410-2 #### [facility] CLIA [id number] [address] MCH (RBC) [Entitic mass] 30.6 pg Normal 26.0-34.0 [facility] Comment on above: Order Comment: Speci men Type: BLOOD SPECIMEN Ordering Facility: [facility] Address: [address] [place] [address] Performed By: #### 5 8410-2 #### [facility] CLIA [id number] [address] MCHC (RBC) [Mass/Vol] 33.9 g/dL Normal 30.5-36.0 [facility] Comment on above: Order Comment: Speci men Type: BLOOD SPECIMEN Ordering Facility: [facility] Address: [address] [place] [address] Performed By: #### 5 8410-2 #### [facility] CLIA [id number] [address] MCV (RBC) [Entitic vol] 90.1 fL Normal 80.0-100.0 [facility] Comment on above: Order Comment: Speci men Type: BLOOD SPECIMEN Ordering Facility: [facility] Address: [address] [place] [address] Performed By: #### 5 8410-2 #### [facility] CLIA [id number] [address] Nucleated RBC (Bld) [#/Vol] 10*3/uL Normal <0.01 [facility] Comment on above: Order Comment: Speci men Type: BLOOD SPECIMEN Ordering Facility: [facility] Address: [address] [place] [address] Performed By: #### 5 8410-2 #### [facility] CLIA [id number] [address] Platelet mean volume (Bld) [Entitic vol] 9.3 fL Normal 9.0-12.7 [facility] Comment on above: Order Comment: Destini thorpe Type: BLOOD SPECIMEN Ordering Facility: [facility] Address: [address] [place] [address] Performed By: #### 5 8410-2 #### [facility] CLIA [id number] [address] Platelets (Bld) [#/Vol] 223 10*3/uL Normal 150-400 [facility] Comment on above: Order Comment: Destini thorpe Type: BLOOD SPECIMEN Ordering Facility: [facility] Address: [address] [place] [address] Performed By: #### 5 8410-2 #### [facility] CLIA [id number] [address] RBC (Bld) [#/Vol] 3.73 10*6/uL Low 3.90-5.20 [facility] Comment on above: Order Comment: Destini thorpe Type: BLOOD SPECIMEN Ordering Facility: [facility] Address: [address] [place] [address] Performed By: #### 5 8410-2 #### [facility] CLIA [id number] [address] WBC (Bld) [#/Vol] 10.50 10*3/uL Normal 3.70-11.00 [facility] Comment on above: Order Comment: Destini thorpe Type: BLOOD SPECIMEN Ordering Facility: [facility] Address: [address] [place] [address] Performed By: #### 5 8410-2 #### [facility] CLIA [id number] [address] Landen 01-05-2025 NELDAN Telephone (PHIL) PAL NICHOLAS ([id number]) 3 F Date Time Provider Department 01/05/25 [...] JAYLA KELLER on 01/05/25 Normal [facility] CNPN Telephone (OBGYWM) PAL NICHOLAS ([id number]) 3 F Date Time Provider Department 01/05/25 LESTER PHILLIPS OBGYW During your visit today, we recorded the following information about you: Magda Hagen, LEVON 01/05/2025 11:40 AM Signed 19w1d See 01/04 phone note. Patient went to [facility] ED last night. [place]'s notes available to review. Patient was prescribed [...] feel completely confident in the diagnosis from [place]. Please advise. LEVON Gardner Karmon, MD 01/05/2025 12:09 PM Signed Patient was seen by Azael Kulkarni while at [facility]. I recommend supportive care with hydration, [...] Status:Closed by JOCELYNE BLACK on 01/05/25 Normal [facility] metabolic 2000 panelon 01-05-2025 Albumin [Mass/Vol] 3.5 g/dL Low 3.9-4.9 [facility] Comment on above: Order Comment: Speci men Type: BLOOD SPECIMEN Ordering Facility: [facility] Address: [address] [place] [address] Performed By: #### 2 4323-8 #### [facility] CLIA [id number] [address] [facility] ALP [Catalytic activity/Vol] 46 U/L Normal 34-123 [facility] Comment on above: Order Comment: Speci men Type: BLOOD SPECIMEN Ordering Facility: [facility] Address: [address] [place] [address] Performed By: #### 2 4323-8 #### [facility] CLIA [id number] [address] [place] [facility] ALT With P-5'-P [Catalytic activity/Vol] 13 U/L Normal 7-38 [facility] Comment on above: Order Comment: Speci men Type: BLOOD SPECIMEN Ordering Facility: [facility] Address: [address] [place] [address] Performed By: #### 2 4323-8 #### [facility] CLIA [id number] [address] [facility] Anion gap [Moles/Vol] 12 mmol/L Normal 8-15 [facility] Comment on above: Order Comment: Speci men Type: BLOOD SPECIMEN Ordering Facility: [facility] Address: [address] [place] [address] Performed By: #### 2 4323-8 #### [facility] CLIA [id number] [address] [place] AST With P-5'-P [Catalytic activity/Vol] 16 U/L Normal 13-35 [facility] Comment on above: Order Comment: Speci men Type: BLOOD SPECIMEN Ordering Facility: [facility] Address: [address] [place] [address] Performed By: #### 2 4323-8 #### [facility] CLIA [id number] [address] [place] Bilirubin [Mass/Vol] 0.3 mg/dL Normal 0.2-1.3 [facility] Comment on above: Order Comment: Speci men Type: BLOOD SPECIMEN Ordering Facility: [facility] Address: [address] [place] [address] Performed By: #### 2 4323-8 #### [facility] CLIA [id number] [address] [place] Calcium [Mass/Vol] 9.1 mg/dL Normal 8.5-10.2 [facility] Comment on above: Order Comment: Speci men Type: BLOOD SPECIMEN Ordering Facility: [facility] Address: [address] [place] [address] Performed By: #### 2 4323-8 #### [facility] CLIA [id number] 1 [place] [address] [place] Chloride [Moles/Vol] 106 mmol/L Normal 98-107 [facility] Comment on above: Order Comment: Speci men Type: BLOOD SPECIMEN Ordering Facility: [facility] Address: [address] [place] [address] Performed By: #### 2 4323-8 #### [facility] CLIA [id number] 1 [place] [address] [place] CO2 [Moles/Vol] 21 mmol/L Low 22-30 [facility] Comment on above: Order Comment: Destini thorpe Type: BLOOD SPECIMEN Ordering Facility: [facility] Address: [address] [place] [address] Performed By: #### 2 4323-8 #### [facility] CLIA [id number] [address] [facility] Creatinine [Mass/Vol] 0.51 mg/dL Low 0.58-0.96 [facility] Comment on above: Order Comment: Speci men Type: BLOOD SPECIMEN Ordering Facility: [facility] Address: [address] [place] [address] Performed By: #### 2 4323-8 #### [facility] CLIA [id number] [address] eGFRcr SerPlBld CKD-EPI 2020 137 mL/min/1.73m??? Normal >=60 [facility] Comment on above: Order Comment: Destini men Type: BLOOD SPECIMEN Ordering Facility: [facility] Address: [address] [place] [address] Result Comment: Shilpa mated Glomerular Filtration Rate [...] actual GFR. Performed By: #### 2 4323-8 #### [facility] CLIA [id number] [address] [facility] Glucose [Mass/Vol] 93 mg/dL Normal 74-99 [facility] Comment on above: Order Comment: Destini tashia Type: BLOOD SPECIMEN Ordering Facility: [facility] Address: [address] [place] [address] Result Comment: The [place] Diabetes Association (ADA) provides guidance for cutoff [...] Standards of Medical Care in Diabetes 2016, [place] [employer] Association. Diabetes Care. 2016.39(Suppl 1). Performed By: #### 2 4323-8 #### [facility] CLIA [id number] [address] [place] Potassium [Moles/Vol] 3.4 mmol/L Low 3.7-5.1 [facility] Comment on above: Order Comment: Speci men Type: BLOOD SPECIMEN Ordering Facility: [facility] Address: [address] [place] [address] Performed By: #### 2 4323-8 #### [facility] CLIA [id number] 1 [place] [address] [place] Protein [Mass/Vol] 5.8 g/dL Low 6.3-8.0 [facility] Comment on above: Order Comment: Speci men Type: BLOOD SPECIMEN Ordering Facility: [facility] Address: [address] [place] [address] Performed By: #### 2 4323-8 #### [facility] CLIA [id number] [address] [place] Sodium [Moles/Vol] 139 mmol/L Normal 136-144 [facility] Comment on above: Order Comment: Speci men Type: BLOOD SPECIMEN Ordering Facility: [facility] Address: [address] [place] [address] Performed By: #### 2 4323-8 #### [facility] CLIA [id number] [address] [place] Urea nitrogen [Mass/Vol] 5 mg/dL Low 7-21 [facility] Comment on above: Order Comment: Speci men Type: BLOOD SPECIMEN Ordering Facility: [facility] Address: [address] [place] [id number] Performed By: #### 2 4323-8 #### [id number] [address] [place] [facility] ECG COMPLETEon 01-05-2025 ECG COMPLETE Ventricular Rate : 97 BPM Atrial Rate : 97 BPM P-R Interval : 128 ms QRS Duration : 78 ms Q-T Interval : 344 ms QTC Calculation(Bazett) : 436 ms Calculated P Leslie : 21 degrees Calculated R Leslie : 23 degrees Calculated T Leslie : -1 degrees NORMAL SINUS RHYTHM LOW VOLTAGE QRS BORDERLINE ECG NO PREVIOUS ECGS AVAILABLE Confirmed by MD NAPIER VINAY ([id number]) on 01/05/2025 12:13:29 PM NAME : PAL NICHOLAS PID : [id number] : 2005 Gender : Female Race : ORD : [id number] Procedure Date : Jan 05 2025 00:20:24 Edit Date : Jan 05 2025 12:13:36 Diagnosis: NORMAL SINUS RHYTHM LOW VOLTAGE QRS BORDERLINE ECG NO PREVIOUS ECGS AVAILABLE Confirmed by MD NAPIER VINAY ([id number]) on 01/05/2025 12:13:29 PM Test Reason : Dizziness Location : 200 : [place] [address] Overread By : MD NAPIER VINAY Edited By : MD NAPIER VINAY Referred By : , Acquired by : BEN GALVAN [facility] Landen 01-04-2025 CNPN Telephone (OBGYWM) PAL NICHOLAS ([id number]) 3 F Date Time Provider Department 01/04/25 [...] this is staying the same since at [facility] 12/22/24. Last few weeks, Pt states extremely watery discharge. Went to [facility] at that time d/t having sharp cervical pain AND was treated for BV. Feels hydrated/Has been drinking liquid IV. Does have some burning on urination AND was seen on 12/30/24 in office-UA completed and TRACE protein and TRACE leukocytes. Advised Pt that since pain has worsened as the day as gone on that it would be best to go to [facility] OB triage to be evaluated as no appts available in office at this time. Pt did state she'd feel more comfortable going there and that is essentially why she called as she wanted to discuss with a nurse. Pt states her ride will not be able to pick her up for another 30 minutes, but Pt is agreeable to go to [place]. Dr. Aragon notified. Maite Peterson RN Allergies [...] Status:Closed by MAITE PETERSON on 01/21/[address] [facility] C[facility]N Telephone (OBGYWM) PAL NICHOLAS ([id number]) 3 F Date Time Provider Department 12/29/24 KARINA ADDISONGYWBarbara During your visit today, we recorded the [...] Status:Closed by KARINA ADDISON on 12/29/24 Normal [facility] BACTERIAL VAGINOSIS NAATon 0 12-28-2024 Lactobacillus crispatus+gasseri+muniz ii + Gardnerella vaginalis + Atopobium vaginae rRNA JOHN+probe Ql (Vag fld) Not detected Normal Not detected [facility] Comment on above: Order Comment: Speci men Type: SWABOrdering Facility: [facility] Address: [address] [place] [address] Performed By: #### C VTV, BVAMP ####[facility] LABCLIA [id number] [place] [address] [place] PARVEEN/TRICHOMONAS NAATon 0 12-28-2024 C. glabrata RNA JOHN+probe Ql (Vag fld) Not detected Normal Not detected [facility] Comment on above: Order Comment: Speci men Type: SWABOrdering Facility: [facility] Address: [address] [place] [address] Performed By: #### C VTV, BVAMP ####[facility] LABCLIA [id number] [address] OF [facility] Parveen sp DNA JOHN+probe Ql (Vag fld) Not detected Normal Not detected [facility] Comment on above: Order Comment: Speci men Type: SWABOrdering Facility: [facility] Address: [address] [place] [address] Result Comment: The Parveen species group target includes C. albicans, C. tropicalis, C. parapsilosis, and C. dubliniensis. Performed By: #### C VTV, BVAMP ####[facility] LABIA [id number] [address] [place] T. vaginalis DNA JOHN+probe Ql (Unsp spec) Not detected Normal Not detected [facility] Comment on above: Order Comment: Speci men Type: SWABOrdering Facility: [facility] Address: [address] [place] [address] Performed By: #### C VTV, BVAMP ####[facility] LABIA [id number] [address] [place] 12-25-2024 [facility] Telephone (LC) PAL NICHOLAS ([id number]) 3 F Date Time Provider Department 12/25/24 LYNNETTE TAPIA During your visit today, we recorded the following information about you: Isaura Pereira RN 12/25/2024 12:14 PM [facility] [place] In chart prep binder for NOB appt [...] Status:Closed by ISAURA PEREIRA on 12/25/24 Normal [facility] Urine Cultureon 12-24-2024 [facility] Mixed Gram Positive Organisms [place] Count 11,000-25,000 [facility] Mixed contaminants. Submit a new specimen if indicated. Normal [facility] Comment on above: Performed By: #### M 100.2200 #### [facility] [address] [place], [place], [address] [facility] 12-22-2024 CNPN Telephone (OBGYWM) PAL NICHOLAS ([id number]) 3 F Date Time Provider Department 12/22/24 KARINA ADDISON OBGYWM During your visit today, we recorded the following information about you: Magda Hagen RN 12/22/2024 12:30 PM Signed New I OB seen at [facility] ER yesterday for pelvic pain. LMP 08/24/24. Approximately 17w1d. Patient calling because she still continues to have pelvic pain and pressure. Pain rate of 5-6. Taking Tylenol and using heat with no relief. States when she went to the ER her pain was 8-9. Denies LOF or VB. Per [facility] ER report: Discussed the case with on-call RADAR TECHNICIAN for [facility] Dr. Aragon who states that she can [...] of medical records from her previous OB. [facility] ER report to [facility] to review. LEVON Gardner Rebecca L, MD 12/22/2024 3:41 PM Signed Agree w/ keep scheduled appointment. Make sure we have US results/labs for NOB. If infection ruled out and no bleeding would recommend stretching, tylenol and warm baths prn. Can return to ED if urgent issue or go to [place] at [facility] or see if there is a sooner [...] Status:Closed by MAGDA HAGEN on 12/22/24 Normal [facility] Absolute lymphocyte countOrd ered By: Aftab Mendoza on 12-21-2024 Lymphocytes Auto (Unsp spec) [#/Vol] 1.91 10*3/uL 0.83-4.51 [facility] Absolute neutrophil countOrd ered By: Aftab Mendoza on 12-21-2024 Neutrophils (Bld) [#/Vol] 7.6 10*3/uL 2.0-7.7 [facility] Anion gap in Serum or Plasma Ordered By: Aftab Mendoza on 12-21-2024 Anion gap [Moles/Vol] 13 mmol/L 5-15 [facility] Automated lymphocyte count a s percentage of total leukocytesOrdered By: Aftab Mendoza on 12-21-2024 Lymphocytes/100 WBC Auto (Unsp spec) 18.4 % Low 19-41 [facility] BUN/creatinine ratioOrdered By: Aftab Mendoza on 12-21-2024 Urea nitrogen/Creatinine [Mass ratio] 13.0 mg/mg 10-20 [facility] Basophil percentageOrdered B y: Aftab Mendoza on 12-21-2024 Basophils/100 WBC (Bld) 0.4 % 0-1 [facility] Bilirubin Test strip Ql (U)O rdered By: Aftab Mendoza on 12-21-2024 Bilirubin Ql (U) Negative Negative [facility] Bilirubin, totalOrdered By: Aftab Mendoza on 12-21-2024 Bilirubin [Mass/Vol] 0.26 mg/dL 0.00-1.30 [facility] CBC W/Diff, Automatedon 11-25 Absolute Lymph 1.91 X10 3/uL Normal 0.83-4.51 [facility] Comment on above: Performed By: #### L 100.0100 #### [facility] [address] [place], [address] Absolute Neut 7.6 X10 3/uL Normal 2.0-7.7 [facility] Comment on above: Performed By: #### L 100.0100 #### [facility] [address] [place], [address] Basophils/100 WBC (Bld) 0.4 % Normal 0-1 [facility] Comment on above: Performed By: #### L 100.0100 #### [facility] [address] [place], [address] Eosinophils/100 WBC (Bld) 1.4 % Normal 0-5 [facility] Comment on above: Performed By: #### L 100.0100 #### [facility] [address] [place], [address] Erythrocyte distribution width (RBC) [Ratio] 14.0 % Normal 11.6-14.6 [facility] Comment on above: Performed By: #### L 100.0100 #### [facility] [address] [place], [address] Hematocrit (Bld) [Volume fraction] 36.3 % Low 37-47 [facility] Comment on above: Performed By: #### L 100.0100 #### [facility] [address] [place], [address] Hemoglobin (Bld) [Mass/Vol] 12.5 g/dL Normal 12.0-15.0 [facility] Comment on above: Performed By: #### L 100.0100 #### [facility] [address] [place], [address] IG% 0.700 Normal 0.0-0.9 [facility] Comment on above: Result Comment: IG% - Immature Granulocytes (promyelocytes, myelocytes and metamyelocytes) > 1% indicates that a LEFT SHIFT is Present. Performed By: #### L 100.0100 #### [facility] [address] [place], [address] Lymphocytes/100 WBC (Bld) 18.4 % Low 19-41 [facility] Comment on above: Performed By: #### L 100.0100 #### [facility] [address] [place], [address] MCH (RBC) [Entitic mass] 30.3 pg Normal 27.0-32.0 [facility] Comment on above: Performed By: #### L 100.0100 #### [facility] [address] [place], [address] MCHC (RBC) [Mass/Vol] 34.4 g/dL Normal 32-36 [facility] Comment on above: Performed By: #### L 100.0100 #### [facility] [address] [place], [address] MCV (RBC) [Entitic vol] 88.1 fL Normal 81-99 [facility] Comment on above: Performed By: #### L 100.0100 #### [facility] [address] [place], [address] Monocytes/100 WBC (Bld) 6.2 % Normal 0-10 [facility] Comment on above: Performed By: #### L 100.0100 #### [facility] [address] [place], [address] Neutrophils/100 WBC (Bld) 72.9 % High 47-70 [facility] Comment on above: Performed By: #### L 100.0100 #### [facility] [address] [place], [address] Nucleated RBC (Bld) [#/Vol] 0 10*3/uL Normal 0-5 [facility] Comment on above: Performed By: #### L 100.0100 #### [facility] [address] [place], [address] Platelet mean volume (Bld) [Entitic vol] 9.1 fL Normal 6.2-12.0 [facility] Comment on above: Performed By: #### L 100.0100 #### [facility] [address] [place], [address] Platelets (Bld) [#/Vol] 248 10*3/uL Normal 150-450 [facility] Comment on above: Performed By: #### L 100.0100 #### [facility] [address] [place], [address] RBC (Bld) [#/Vol] 4.12 10*6/uL Low 4.2-5.4 [facility] Comment on above: Performed By: #### L 100.0100 #### [facility] [address] [place], [address] RDW SD 44.6 fl High 35.1-43.9 [facility] Comment on above: Performed By: #### L 100.0100 #### [facility] [address] [place], [address] WBC (Bld) [#/Vol] 10.4 10*3/uL Normal 4.4-11.0 [facility] Comment on above: Performed By: #### L 100.0100 #### [facility] [address] [place] [place], [address] Carbon dioxide, total [Moles /volume] in Central venous bloodOrdered By: Aftab Mendoza on 12-21-2024 CO2 [Moles/Vol] 20.6 mmol/L Low 21.0-32.0 [facility] Chloride assayOrdered By: Travis Mendoza on 12-21-2024 Chloride [Moles/Vol] 103 mmol/L 98-108 [facility] Comprehensive Metabolic Prof ilon 12-21-2024 Albumin [Mass/Vol] 3.8 g/dL Normal 3.5-5.0 [facility] Comment on above: Performed By: #### L 500.4050 #### [facility] [address] [place], [address] Albumin/Globulin [Mass ratio] 1.5 {ratio} Normal 0.9-2.4 [facility] Comment on above: Performed By: #### L 500.4050 #### [facility] [address] [place], [address] ALK PHOS 44 U/L Normal 35-104 [facility] Comment on above: Performed By: #### L 500.4050 #### [facility] [address] [place], [address] ALT [Catalytic activity/Vol] 10 U/L Normal <=34 [facility] Comment on above: Performed By: #### L 500.4050 #### [facility] [address] [place], [address] AST [Catalytic activity/Vol] 16 U/L Normal <=31 [facility] Comment on above: Performed By: #### L 500.4050 #### [facility] [address] [place], [address] Bilirubin [Mass/Vol] 0.26 mg/dL Normal 0.00-1.30 [facility] Comment on above: Performed By: #### L 500.4050 #### [facility] [address] [place], [address] BUN/CRE 13.0 RATIO Normal 10-20 [facility] Comment on above: Performed By: #### L 500.4050 #### [facility] [address] [place], [address] Calcium [Mass/Vol] 9.0 mg/dL Normal 7.6-11.0 [facility] Comment on above: Performed By: #### L 500.4050 #### [facility] [address] [place], [address] Chloride [Moles/Vol] 103 mmol/L Normal 98-108 [facility] Comment on above: Performed By: #### L 500.4050 #### [facility] [address] [place], [address] CO2 [Moles/Vol] 20.6 mmol/L Low 21.0-32.0 [facility] Comment on above: Performed By: #### L 500.4050 #### [facility] [address] [place], [address] Creatinine [Mass/Vol] 0.54 mg/dL Low 0.70-1.20 [facility] Comment on above: Performed By: #### L 500.4050 #### [facility] [address] [place], [address] ECRCL 161.60 ml/min Normal 50-250 [facility] Comment on above: Performed By: #### L 500.4050 #### [facility] [address] [place], [address] GAP 13 Normal 5-15 [facility] Comment on above: Performed By: #### L 500.4050 #### [facility] [address] [place], [address] GFR/1.73 sq M.predicted among non-blacks MDRD (S/P/Bld) [Vol rate/Area] 135 mL/min/{1.73_m2} Normal >60 [facility] Comment on above: Result Comment: mL/m in/1.73m2 CKD-EPI Creatinine Equation (2020) Performed By: #### L 500.4050 #### [facility] [address] [place], [address] Globulin (S) [Mass/Vol] 2.6 g/dL Normal 2.2-4.2 [facility] Comment on above: Performed By: #### L 500.4050 #### [facility] [address] [place], [address] Glucose [Mass/Vol] 118 mg/dL High 70-99 [facility] Comment on above: Performed By: #### L 500.4050 #### [facility] [address] [place], [address] Potassium [Moles/Vol] 3.8 mmol/L Normal 3.3-5.1 [facility] Comment on above: Performed By: #### L 500.4050 #### [facility] [address] [place], [address] Sodium [Moles/Vol] 137 mmol/L Normal 133-145 [facility] Comment on above: Performed By: #### L 500.4050 #### [facility] [address] [place], [place], [address] T PROT 6.5 g/dL Normal 5.9-8.4 [facility] Comment on above: Performed By: #### L 500.4050 #### [facility] [address] [place], [place], [address] Urea nitrogen [Mass/Vol] 7 mg/dL Normal 4-19 [facility] Comment on above: Performed By: #### L 500.4050 #### [facility] [address] [place], [place], [address] Emergency Department Summary on 12-21-2024 Emergency Department Summary [facility] Medical Records Department [address] [place] [address] Emergency Department Summary 12/21/24 MR#: [id number] Acct: [id number] Name: PAL NICHOLAS Rep #: [id number] : 2005 19 From: Aftab Mendoza DO [...] management. States that she is following with [facility] OB. Patient denies any vaginal spotting or bleeding. [facility] Medical History (Updated 12/21/24 @ 23:39 by [...] follow commands knew that she was at [facility] the year is 2024 Skin: Warm, [...] of infection. Discussed the case with on-call RADAR TECHNICIAN for [facility] Dr. Aragon who states that she can [...] 72.9 H Lymph % (Auto) 18.4 L Garrard % (Auto) 6.2 Eos % (Auto) 1.4 [...] Clarity Clear Urine pH 6.5 Ur Specific Mccammon 1.010 Urine Protein N (more content not included)... Normal [facility] Eosinophil percentageOrdered By: Aftab Mendoza on 12-21-2024 Eosinophils/100 WBC (Bld) 1.4 % 0-5 [facility] Erythrocyte distribution wid th ratioOrdered By: Aftab Mendoza on 12-21-2024 Erythrocyte distribution width (RBC) [Ratio] 14.0 % 11.6-14.6 [facility] Erythrocyte distribution wid th standard deviationOrdered By: Aftab Mendoza on 12-21-2024 Erythrocyte distribution width (RBC) [Ratio] 44.6 fl High 35.1-43.9 [facility] Glomerular filtration rate ( GFR) estimation/1.73 sq m using serum, plasma, or whole bOrdered By: Aftab Mendoza on 12-21-2024 GFR/1.73 sq M.predicted among non-blacks MDRD (S/P/Bld) [Vol rate/Area] 135 mL/min/{1.73_m2} >60 [facility] Comment on above: mL/min/1.73m2 CKD-EP I Creatinine Equation (2020) Hematocrit Auto (Bld) [Volum e fraction]Ordered By: Aftab Mendoza on 12-21-2024 Hematocrit (Bld) [Volume fraction] 36.3 % Low 37-47 [facility] Hemoglobin measurementOrdere d By: Aftab Mendoza on 12-21-2024 Hemoglobin (Bld) [Mass/Vol] 12.5 g/dL 12.0-15.0 [facility] Immature granulocytes/100 WB C Auto (Bld)Ordered By: Aftab Mendoza on 12-21-2024 Immature granulocytes/100 WBC (Bld) 0.700 % 0.0-0.9 [facility] Comment on above: IG% - Immature Granu locytes (promyelocytes, myelocytes and metamyelocytes) > 1% indicates that a LEFT SHIFT is Present. Ketones Test strip Ql (U)Ord ered By: Aftab Mendoza on 12-21-2024 Ketones Ql (U) Negative Negative [facility] - Chemistry and C hemistry - challengeOrdered By: Aftab Mendoza on 12-21-2024 AST [Catalytic activity/Vol] 16 U/L <32 [facility] MCV (mean corpuscular volume ) determinationOrdered By: Aftab Mendoza on 12-21-2024 MCV (RBC) [Entitic vol] 88.1 fL 81-99 [facility] Mean corpuscular hemoglobin (MCH) determinationOrdered By: Aftab Mendoza on 12-21-2024 MCH (RBC) [Entitic mass] 30.3 pg 27.0-32.0 [facility] Mean corpuscular hemoglobin concentration (MCHC) determinationOrdered By: Aftab Mendoza on 12-21-2024 MCHC (RBC) [Mass/Vol] 34.4 g/dL 32-36 [facility] Mean platelet volume determi nationOrdered By: Aftab Mendoza 12-21-2024 Platelet mean volume (Bld) [Entitic vol] 9.1 fL 6.2-12.0 [facility] Microscopic analysis of urin e for red blood cells (RBC)Ordered By: Aftab Mendoza on 12-21-2024 Microscopic analysis of urine for red blood cells (RBC) 0-5 SEEN /hpf 0-5 [facility] Monocyte percentageOrdered B y: Aftab Mendoza on 12-21-2024 Monocytes/100 WBC (Bld) 6.2 % 0-10 [facility] Mucus LM Ql (Urine sed)Order ed By: Aftab Mendoza on 12-21-2024 Mucus Ql (Urine sed) 0 SEEN /hpf [facility] Neutrophil percentageOrdered By: Aftab Mendoza on 12-21-2024 Neutrophils/100 WBC (Bld) 72.9 % High 47-70 [facility] Nitrite Test strip Ql (U)Ord ered By: Aftab Mendoza on 12-21-2024 Nitrite Ql (U) Negative Negative [facility] Nucleated red blood cell per centageOrdered By: Aftab Mendoza on 12-21-2024 Nucleated RBC/100 WBC (Bld) [Ratio] 0 % 0-5 [facility] Platelet countOrdered By: Tarvis Mendoza on 12-21-2024 Platelets (Bld) [#/Vol] 248 10*3/uL 150-450 [facility] Potassium measurement (mass/ volume)Ordered By: Aftab Mendoza on 12-21-2024 Potassium (Unsp spec) [Mass/Vol] 3.8 mmol/L 3.3-5.1 [facility] Protein Test strip Ql (U)Ord ered By: Aftab Mendoza on 12-21-2024 Protein Ql (U) Negative Negative [facility] RBC Auto (Bld) [#/Vol]Ordere d By: Aftab Mendoza on 12-21-2024 RBC (Bld) [#/Vol] 4.12 10*6/uL Low 4.2-5.4 [facility] Serum creatinine measurement (mass/volume)Ordered By: Aftab Mendoza on 12-21-2024 Creatinine [Mass/Vol] 0.54 mg/dL Low 0.70-1.20 [facility] Serum globulin measurementOr dered By: Aftab Mendoza on 12-21-2024 Globulin (S) [Mass/Vol] 2.6 g/dL 2.2-4.2 [facility] Serum glucose measurement (m ass/volume)Ordered By: Aftab Mendoza on 12-21-2024 Glucose [Mass/Vol] 118 mg/dL High 70-99 [facility] Serum or plasma alanine penning[place] otransferase (ALT) measurementOrdered By: Aftab Mendoza on 12-21-2024 ALT [Catalytic activity/Vol] 10 U/L <35 [facility] Serum or plasma albumin mak urement (mass/volume)Ordered By: Aftab Mendoza on 12-21-2024 Albumin [Mass/Vol] 3.8 g/dL 3.5-5.0 [facility] Serum or plasma albumin/glob ulin mass ratioOrdered By: Aftab Mendoza on 12-21-2024 Albumin/Globulin [Mass ratio] 1.5 {ratio} 0.9-2.4 [facility] Serum or plasma alkaline cristofer sphatase measurementOrdered By: Aftab Mendoza on 12-21-2024 ALP [Catalytic activity/Vol] 44 U/L 35-104 [facility] Serum or plasma calcium mak urement (mass/volume)Ordered By: Aftab Mendoza on 12-21-2024 Calcium [Mass/Vol] 9.0 mg/dL 7.6-11.0 [facility] Serum or plasma urea nitroge n measurement (mass/volume)Ordered By: Aftab Mendoza on 12-21-2024 Urea nitrogen [Mass/Vol] 7 mg/dL 4-19 [facility] Sodium levelOrdered By: Chino Mendoza on 12-21-2024 Sodium [Moles/Vol] 137 mmol/L 133-145 [facility] Squamous epithelial cells de tection in urine sediment by light microscopyOrdered By: Aftab Mendoza on 12-21-2024 Epithelial cells.squamous LM Ql (Urine sed) 0-5 SEEN /hpf 5-10 [facility] Total proteinOrdered By: Gustavo Mendoza on 12-21-2024 Protein [Mass/Vol] 6.5 g/dL 5.9-8.4 [facility] Urinalysis, Completeon 12-21 EPI,SQUAMOUS 0-5 SEEN Normal 5-10 [facility] Comment on above: Order Comment: CLEAN CATCH Performed By: #### L 400.0001 #### [facility] [address] [place], [address] RBC 0-5 SEEN Normal 0-5 [facility] Comment on above: Order Comment: CLEAN CATCH Performed By: #### L 400.0001 #### [facility] [address] [place], [address] WBC 0-5 SEEN Normal 0-5 [facility] Comment on above: Order Comment: CLEAN CATCH Performed By: #### L 400.0001 #### [facility] [address] [place], [address] BACTERIA 0 SEEN Normal None Seen [facility] Comment on above: Order Comment: CLEAN CATCH Performed By: #### L 400.0001 #### [facility] [address] [place], [address] Mucus Ql (Urine sed) 0 SEEN Normal [facility] Comment on above: Order Comment: CLEAN CATCH Performed By: #### L 400.0001 #### [facility] [address] [place], [address] Urine clarityOrdered By: Gustavo Mendoza on 12-21-2024 Clarity (U) Clear Clear [facility] Urine color determinationOrd ered By: Aftab Mendoza on 12-21-2024 Color (U) Yellow Yellow [facility] Urine cultureOrdered By: Gustavo Mendoza on 12-21-2024 Bacteria identified Cx Nom (U) Positive Abnormal [facility] Urine glucose detectionOrder ed By: Aftab Mendoza on 12-21-2024 Glucose Ql (U) Normal mg/dl Normal [facility] Urine leukocyte esterase det ection by dipstickOrdered By: Aftab Mendoza on 12-21-2024 Leukocyte esterase Test strip Ql (U) Negative Negative [facility] Urine pHOrdered By: Aftab valentin on 12-21-2024 pH (U) 6.5 [pH] 5.0 - 8.0 [facility] Urine sediment bacteria coun t by microscopy (number/high power field)Ordered By: Aftab Mendoza on 12-21-2024 Bacteria LM.HPF (Urine sed) [#/Area] 0 /[HPF] None Seen [facility] Urine specific gravity measu rementOrdered By: Aftab Mendoza on 12-21-2024 Specific gravity (U) [Rel density] 1.010 1.002-1.030 [facility] Urine urobilinogen measureme ntOrdered By: Aftab Mendoza on 12-21-2024 Urobilinogen Ql (U) Normal mg/dl Normal [facility] White blood cell (WBC) count Ordered By: Aftab Mendoza on 12-21-2024 WBC (Bld) [#/Vol] 10.4 10*3/uL 4.4-11.0 [facility] White blood cell countOrdere d By: Aftab Mendoza on 12-21-2024 White blood cell count 0-5 SEEN /hpf 0-5 [facility] CNPNon 12-01-2024 CNPN Telephone (OGFVWE) PAL NICHOLAS ([id number]) 3 F Date Time Provider Department 12/01/24 NURSE HUMANITIES COORDINATOR FRCYNTHIA [facility] During your visit today, we recorded the following information about you: Maria Alejandra Kay, RN 12/01/2024 8:37 AM Signed ----- Message from Rica Pendleton sent at 11/30/2024 4:05 PM EDT ----- Regarding: New/MELVIN OB 16 weeks Patient has been identified by name and Date of : Yes Patient: Pal Nicholas Date of : 2005 Provider for this encounter : CC HUMANITIES COORDINATOR WSTR Reason for call: New OB patient (16 weeks as of 11/30/24), [place] from [place] Was an appointment scheduled: No Reason for requesting visit (RFV/signs and symptoms/diagnosis) : Establish with OB at [facility] for continuation of care. Person calling: self Return call to: self Call patient at: [phone] (cell), it is OK to leave message Payor: ANTHEM / Plan: BLUE CARD PPO OOS / Product Type: PPO / Rica Maria Alejandra Felipe RN 12/01/2024 8:39 AM Signed Call placed to patient to triage for new OB appt. No answer, will try later Maria Alejandra King RN, RN 12/01/2024 10:10 AM Signed Call placed to patient to triage for new OB appt. Left message for patient to call back Maria Alejandra King RN, RN 12/01/2024 10:34 AM Signed Name and verified. Patient wishes to transfer to [facility] for OB care. AMARI? 05/31/25 Gestational age? 14w1d Patient aware to sign up for My Chart so she can receive the career development associate messages. What facility is she transferring from? [facility] HUMANITIES COORDINATOR in [place] Moving to [place] in 2 weeks and will be approx [...] would the patient like to establish in? [place] Will route this encounter to the desired office. Maria Alejandra Kay RN Allergies As of Date: 12/01/2024 (Not on File) Date Reviewed: Never Reviewed Reason for Visit: Care Coordination [3491] Problem List As Of Date: 12/01/2024 (None) Encounter Status:Closed by MAGDA HAGEN on 12/02/24 Normal [facility] Vital Signs Date Time Vital Sign Value Performing Clinician Adina salmon 02-23-2025 20:56-0400 Body height 170.[address] Aftab Mendoza DO Work Phone: [phone] [place] [address] 02-23-2025 20:56-0400 Body mass index (BMI) [Ratio] 28.5 kg/m2 Dr. Aftab Mendoza DO Work Phone: [facility] 02-23-2025 20:56-0400 Body weight 82.[address] Aftab Mendoza DO Work Phone: [facility] 02-13-2025 22:31-0400 Diastolic blood pressure 73 mm[Hg] Dr. Aftab Mendoza DO Work Phone: [facility] 02-13-2025 22:31-0400 Heart rate 95 /min Dr. Aftab Mendoza DO Work Phone: 6(657)509-215711 [place] [address] 02-13-2025 22:31-0400 Systolic blood pressure 120 mm[Hg] Dr. Aftab Mendoza DO Work Phone: 9(437)[phone] [place] [address] 02-13-2025 22:07-0400 Body temperature 98.6 [degF] Dr. Aftab Mendoza DO Work Phone: 6(116)[phone] [place] [address] 02-13-2025 22:07-0400 Respiratory rate 16 /min Dr. Aftab Mendoza DO Work Phone: 9([phone])[phone] [place] [address] 02-13-2025 21:53-0400 Body height 170.[address] Aftab Mendoza DO Work Phone: [phone])[phone] [place] [address] 02-13-2025 21:53-0400 Body mass index (BMI) [Ratio] 27.7 kg/m2 Dr. Aftab Mendoza DO Work Phone: [facility] 02-13-2025 21:53-0400 Body weight 80.[address] Aftab Mendoza DO Work Phone: [facility] 02-08-2025 10:33-0400 Body mass index (BMI) [Ratio] 27.57 kg/m2 Lynnette Tapia YARN TEXTURE MACHINE OPERATOR.CNM Work Phone: [facility] 02-08-2025 10:33-0400 Body weight 79.83 kg Lynnette Plotts YARN TEXTURE MACHINE OPERATOR.CNM Work Phone: [facility] 02-08-2025 10:33-0400 Diastolic blood pressure 74 mm[Hg] Lynnette Tapia YARN TEXTURE MACHINE OPERATOR.CNM Work Phone: [facility] 02-08-2025 10:33-0400 Systolic blood pressure 126 mm[Hg] Lynnette Tapia YARN TEXTURE MACHINE OPERATOR.CNM Work Phone: [facility] 02-05-2025 15:26-0400 Diastolic blood pressure 78 mm[Hg] Dr. Aftab Mendoza DO Work Phone: [facility] 02-05-2025 15:26-0400 Heart rate 80 /min Dr. Aftab Mendoza DO Work Phone: [facility] 02-05-2025 15:26-0400 Systolic blood pressure 124 mm[Hg] Dr. Aftab Mendoza DO Work Phone: [facility] 02-05-2025 15:10-0400 Body temperature 99 [degF] Dr. Aftab Mendoza DO Work Phone: [facility] 02-05-2025 15:10-0400 Respiratory rate 16 /min Dr. Aftab Mendoza DO Work Phone: [facility] 02-05-2025 15:10-0400 SaO2% (BldA) [Mass fraction] 96 % Dr. Aftab Mendoza DO Work Phone: [facility] 02-04-2025 22:37-0400 Body temperature 99.4 [degF] Dr. Aftab Mendoza DO Work Phone: [facility] 02-04-2025 22:37-0400 Diastolic blood pressure 84 mm[Hg] Dr. Aftab Mendoza DO Work Phone: [facility] 02-04-2025 22:37-0400 Heart rate 92 /min Dr. Aftab Mendoza DO Work Phone: [facility] 02-04-2025 22:37-0400 Respiratory rate 16 /min Dr. Aftab Mendoza DO Work Phone: 9(532)079-577411 [place] [address] 02-04-2025 22:37-0400 Systolic blood pressure 129 mm[Hg] Dr. Aftab Mendoza DO Work Phone: 4(546)402-012511 [place] [address] 02-04-2025 22:23-0400 Body height 170.[address] Aftab Mendoza DO Work Phone: 1(015)334-560311 [place] [address] 02-04-2025 22:23-0400 Body mass index (BMI) [Ratio] 27.2 kg/m2 Dr. Aftab Mendoza DO Work Phone: 3(856)008-946111 [place] [address] 02-04-2025 22:23-0400 Body weight 78.[address] Aftab Mendoza DO Work Phone: 4(713)474-854925 [place] [address] 02-02-2025 21:12-0400 Body temperature 98.8 [degF] Dr. Aftab Mendoza DO Work Phone: 2(515)092-652225 [place] [address] 02-02-2025 21:12-0400 Diastolic blood pressure 78 mm[Hg] Dr. Aftab Mendoza DO Work Phone: 6(902)657-238825 [place] [address] 02-02-2025 21:12-0400 Heart rate 109 /min Dr. Aftab Mendoza DO Work Phone: 1(903)985-454411 [place] [address] 02-02-2025 21:12-0400 Respiratory rate 16 /min Dr. Aftab Mendoza DO Work Phone: 2(408)805-435311 [place] [address] 02-02-2025 21:12-0400 SaO2% (BldA) [Mass fraction] 98 % Dr. Aftab Mendoza DO Work Phone: 4(360)720-775711 [place] [address] 02-02-2025 21:12-0400 Systolic blood pressure 123 mm[Hg] Dr. Aftab Mendoza DO Work Phone: 2(173)221-843811 [place] [address] 02-02-2025 21:07-0400 Body height 170.[address] Aftab Mendoza DO Work Phone: 9(501)378-042711 [place] [address] 02-02-2025 21:07-0400 Body mass index (BMI) [Ratio] 27.2 kg/m2 Dr. Aftab Mendoza DO Work Phone: [facility] 02-02-2025 21:07-0400 Body weight 78.[address] Aftab Mendoza DO Work Phone: [facility] 02-02-2025 14:04-0400 Body mass index (BMI) [Ratio] 27.41 kg/m2 Lester Phillips MD Work Phone: [facility] 02-02-2025 14:04-0400 Body weight 79.38 kg Lester Phillips MD Work Phone: [facility] 02-02-2025 14:04-0400 Diastolic blood pressure 78 mm[Hg] Lester Phillips MD Work Phone: [facility] 02-02-2025 14:04-0400 Systolic blood pressure 122 mm[Hg] Lester Phillips MD Work Phone: [facility] 01-20-2025 09:55-0400 Body mass index (BMI) [Ratio] 26.31 kg/m2 Karina Blanco MD Work Phone: [facility] 01-20-2025 09:55-0400 Body weight 76.2 kg Karina Blanco MD Work Phone: [facility] 01-20-2025 09:55-0400 Diastolic blood pressure 62 mm[Hg] Karina Blanco MD Work Phone: [facility] 01-20-2025 09:55-0400 Systolic blood pressure 116 mm[Hg] Karina Blanco MD Work Phone: [facility] 01-11-2025 15:00-0400 Body mass index (BMI) [Ratio] 25.34 kg/m2 Ramakrishna Corley MD Work Phone: [facility] 01-11-2025 15:00-0400 Body weight 73.39 kg Ramakrishna Corley MD Work Phone: [facility] 01-11-2025 15:00-0400 Diastolic blood pressure 70 mm[Hg] Ramakrishna Corley MD Work Phone: [facility] 01-11-2025 15:00-0400 Systolic blood pressure 110 mm[Hg] Ramakrishna Corley MD Work Phone: [facility] 12-28-2024 08:46-0400 Body height 170.2 cm Lynnette Tapia YARN TEXTURE MACHINE OPERATOR.CNM Work Phone: [facility] 12-28-2024 08:46-0400 Body mass index (BMI) [Ratio] 24.9 kg/m2 Lynnette Tapia YARN TEXTURE MACHINE OPERATOR.CNM Work Phone: [facility] 12-28-2024 08:46-0400 Body weight 72.12 kg Lynnette Tapia YARN TEXTURE MACHINE OPERATOR.CNM Work Phone: [facility] 12-28-2024 08:46-0400 Diastolic blood pressure 74 mm[Hg] Lynnette Tapia YARN TEXTURE MACHINE OPERATOR.CNM Work Phone: [facility] 12-28-2024 08:46-0400 Systolic blood pressure 114 mm[Hg] Lynnette Tapia YARN TEXTURE MACHINE OPERATOR.CNM Work Phone: [facility] 12-22-2024 00:00-0400 Heart rate 81 /min Dr. Aftab Mendoza DO Work Phone: [facility] 12-22-2024 00:00-0400 Respiratory rate 16 /min Dr. Aftab Mendoza DO Work Phone: [facility] 12-22-2024 00:00-0400 SaO2% (BldA) [Mass fraction] 98 % Dr. Aftab Mendoza DO Work Phone: [facility] 12-21-2024 23:57-0400 Body temperature 97.4 [degF] Dr. Aftab Mendoza DO Work Phone: [facility] 12-21-2024 23:57-0400 Diastolic blood pressure 58 mm[Hg] Dr. Aftab Mendoza DO Work Phone: [facility] 12-21-2024 23:57-0400 Systolic blood pressure 110 mm[Hg] Dr. Aftab Mendoza DO Work Phone: [facility] 12-21-2024 20:27-0400 Body height 170.[address] Aftab Mendoza DO Work Phone: [facility] 12-21-2024 20:27-0400 Body mass index (BMI) [Ratio] 24.4 kg/m2 Dr. Aftab Mendoza DO Work Phone: [facility] 12-21-2024 20:27-0400 Body weight 70.[address] Aftab Mendoza DO Work Phone: [facility] Encounters Encounter Date Encounter Type Care Provider Facility Start: 03-11-2025 End: 03-11-2025 ambulatory LYNNETTE TAPIA Facility:[facility] Start: 03-08-2025 End: 03-08-2025 ambulatory REGGIE MA Facility:[facility] Start: 02-23-2025 End: 02-23-[address] Aftab Mendoza DO Work Phone: -[facility] Start: 02-23-2025 End: 02-23-2025 Patient encounter procedure Patsy March CNM -[facility] Work Phone: Start: 02-18-2025 End: 02-18-2025 ambulatory KARI JOHNSTON Facility:[facility] Start: 02-16-2025 End: 02-16-2025 ambulatory LESTER PHILLIPS Facility:[facility] Start: 02-13-2025 End: 02-13-[address] Aftab Mendoza DO Work Phone: -[facility] Start: 02-13-2025 End: 02-13-[address] Magda Aragon MD -[facility] Work Phone: Start: 02-13-2025 End: 02-13-2025 Emergency department patient visit ALEXA DICKSON Facility:[facility] Start: 02-08-2025 End: 02-08-2025 Patient encounter procedure Lynnette Tapia YARN TEXTURE MACHINE OPERATOR.CNM Work Phone: OB/Gynecology Comment on above: Encounter for superv ision of normal first in second trimester (HCC) (Primary Dx); 24 weeks gestation of (HCC); Screening for diabetes mellitus; Vaginal discharge during in second trimester (HCC) Start: 02-08-2025 End: 02-08-2025 ambulatory LYNNETTE TAPIA Facility:[facility] Start: 02-05-2025 End: 02-05-2025 Telephone encounter Lynnette Tapia YARN TEXTURE MACHINE OPERATOR.CNM Work Phone: OB/Gynecology Comment on above: Contractions Start: 02-04-2025 End: 02-05-[address] Aftab Mendoza DO Work Phone: -[facility] Start: 02-04-2025 End: 02-05-[address] Ramakrishna Corley DO -[facility] Work Phone: Start: 02-02-2025 End: 02-02-2025 [...] Start: 01-20-2025 End: 01-20-2025 ambulatory KARINA BLANCO Facility:[facility] Start: 01-19-2025 End: 01-20-2025 ambulatory Ramakrishna Corley MD Work Phone: OB/Gynecology Start: 01-19-2025 End: 01-20-2025 Follow-up encounter Ramakrishna Corley MD Work Phone: OB/Gynecology Comment on above: Follow up from ER Start: 01-18-2025 End: 01-19-2025 Emergency department patient visit NUZHAT ZAMORANO Facility:[facility] Start: 01-18-2025 End: 01-20-2025 Telephone encounter Lynnette Tapia APRN.CNM Work Phone: OB/Gynecology Comment on above: Breast Pump Start: 01-14-2025 End: 01-14-2025 Telephone encounter Ramakrishna Corley MD Work Phone: OB/Gynecology Comment on above: Orders Start: 01-12-2025 End: 01-12-2025 ambulatory RAMAKRISHNA CORLEY Facility:[facility] Start: 01-11-2025 End: 01-11-2025 Patient encounter procedure Ramakrishna Corley MD Work Phone: OB/Gynecology Comment on above: Bacterial vaginosis (Primary Dx); 20 weeks gestation of (HCC); Burning with urination; Palpitations; Other fatigue; Weakness; Encounter for supervision of normal first in second trimester ([facility]) POTS (postural ortho static tachycardia syndrome) (Primary Dx); Visit for screening ([facility]); 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[facility]); Chronic hypertension affecting ([facility]) Start: 01-11-2025 End: 01-11-2025 ambulatory LYNNETTE TAPIA Facility:[facility] Start: 01-07-2025 End: 01-12-2025 Telephone encounter Ej Rodriguez MD Work Phone: [facility] Comment on above: Appointment Start: 01-06-2025 End: 01-06-2025 Emergency department patient visit ALEXA DICKSON Facility:[facility] Start: 01-06-2025 End: 01-07-2025 Telephone encounter Karina Addison APRN.CNM Work Phone: OB/Gynecology Comment on above: OB Vaginal Pressure Start: 01-05-2025 End: 01-05-2025 Telephone encounter Jayla Keller MD Work Phone: [facility] Comment on above: OB Pain Start: 01-04-2025 End: 01-05-2025 ambulatory NUZHAT ZAMORANO Facility:[facility] Start: 01-04-2025 End: 01-21-2025 Telephone encounter Magda Aragon MD Work Phone: OB/Gynecology Comment on above: Low back aching/cram ping pelvic region Start: 12-30-2024 End: 12-30-2024 ambulatory [facility] Facility:[facility] Start: 12-28-2024 End: 12-28-2024 Patient encounter procedure Lynnette Tapia YARN TEXTURE MACHINE OPERATOR.CNM Work Phone: OB/Gynecology Comment on above: Visit for s creening (HCC) (Primary Dx); 18 weeks gestation of (HCC); Encounter for supervision of high risk in second trimester, antepartum (HCC); 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[facility]); POTS (postural orthostatic tachycardia syndrome); Cystic fibrosis carrier; Screening for STD (sexually transmitted disease); Abdominal pain during in second trimester ([facility]); Bacterial vaginosis Start: 12-28-2024 End: 12-28-2024 ambulatory [facility] Facility:[facility] Start: 12-25-2024 End: 12-25-2024 Telephone encounter Lynnette Tapia YARN TEXTURE MACHINE OPERATOR.CNM Work Phone: OB/Gynecology Comment on above: Received Outside Med ical Records Start: 12-22-2024 End: 12-22-2024 ambulatory MARK FOREMAN Facility:[facility] Start: 12-22-2024 End: 12-22-2024 Telephone encounter Karina Addison MD Work Phone: OB/Gynecology Comment on above: OB Pelvic Pain Start: 12-21-2024 End: 12-22-2024 Emergency department patient visit Dr. Aftab Mendoza DO Work Phone: -Emergency Department Work Phone: Start: 12-01-2024 End: 12-02-2024 Telephone encounter Nurse Newspaper Carrier Carlos Mcallen Work Phone: Obstetrics/Gynecology Comment on above: Care Coordination Procedures Date Procedure Procedure Detail Performing Clinician Start: 03-11-2025 Antibody screen KARI SUBRAMANIAN [facility] Comment on above: Order Comment: Speci men Type: BLOOD SPECIMENOrdering Facility: [facility] Address: [address] [place] [address] Performed By: #### T SPN ####[facility] LABCLIA [id number] [place] [id number] [place] Start: 02-08-2025 Urnls dip stick/tabl et rgnt auto w/o microscopy Lynnette Tapia YARN TEXTURE MACHINE OPERATOR.CNM Work Phone: Start: 02-08-2025 BACTERIAL VAGINOSIS NAAT Lynnette Tapia YARN TEXTURE MACHINE OPERATOR.CNM Work Phone: Start: 02-08-2025 Iadna trichomonas va ginalis amplified probe tech Lynnette Tapia YARN TEXTURE MACHINE OPERATOR.CNM Work Phone: Start: 02-04-2025 Urnls dip stick/tabl et reagent auto microscopy Dr. Aftab Mendoza DO Work Phone: Start: 02-04-[address] Aftab Mendoza DO Work Phone: Start: 02-02-2025 Urnls dip stick/tabl et reagent auto microscopy Dr. Aftab Mendoza DO Work Phone: Start: 02-02-2025 Urnls dip stick/tabl et rgnt auto w/o microscopy Lester Phillips MD Work Phone: Start: 02-02-[address] Aftab Mendoza DO Work Phone: Start: 01-20-2025 BACTERIAL VAGINOSIS NAAT Karina Blanco MD Work Phone: Start: 01-20-2025 Iadna trichomonas va ginalis amplified probe tech Karina Blanco MD Work Phone: Start: 01-11-2025 Us preg uterus after 1st trimest 1/1st gestation Lynnette Tapia YARN TEXTURE MACHINE OPERATOR.CNM Work Phone: Start: 01-11-2025 Urnls dip stick/tabl [...] Author Start: 01-06-2026 GC (Gonorrhea) Scree hernando () GC (Gonorrhea) Screening () [facility] Start: 01-06-2026 Screening for Chlamy eva trachomatis Chlamydia Screening () [facility] Start: 04-05-2025 RSV Vaccine (1 - Ris k 1-dose series) RSV Vaccine (1 - Risk 1-dose series) [facility] Start: 03-11-2025 End: 03-11-2025 Patient encounter procedure [facility] Comment on above: Growth Growth/OB Start: 03-11-2025 End: 03-11-2025 ambulatory 03/11/2025 9:45 AM EDT Results Only [facility] [address] [place], [place] [id number] Glucose Test [facility] Comment on above: Glucose Test Start: 03-08-2025 End: 03-08-2025 Patient encounter procedure 03/08/2025 9:20 AM EDT Office Visit [facility] [address] [place] [address] Reggie Ma MD [address] [place], [place] [id number] est care, hx EDS and POTS, EKG non-specific ST-T wave abnormality, currently . MS/ EKG kk [facility] Comment on above: est care, hx EDS and POTS, EKG non-specific ST-T wave abnormality, currently . MS/ EKG kk Start: 02-23-2025 Patient discharge [facility] Start: 02-13-2025 Nonstress test [facility] Start: 02-13-2025 Obstetric monitoring [facility] Start: 02-13-2025 Vital signs measurements [facility] Start: 02-13-2025 [facility] Start: 02-13-2025 Patient discharge [facility] Start: 02-08-2025 End: 05-10-2025 ANEMIA REFLEX PANEL ANEMIA REFLEX PANEL Lab Routine Encounter for supervision of normal first in second trimester (HCC) 24 weeks gestation of (HCC) Expected: 02/08/2025, Expires: 05/10/2025 [facility] Comment on above: Expected: 02/08/2025 , Expires: 05/10/2025 Start: 02-08-2025 End: 02-08-2026 GESTATIONAL GLUCOSE SCREEN, 1-HOUR, 50 GRAM, NON-FASTING GESTATIONAL GLUCOSE SCREEN, 1-HOUR, 50 GRAM, NON-FASTING Lab Routine Encounter for supervision of normal first in second trimester (HCC) 24 weeks gestation of (HCC) Screening for diabetes mellitus Expected: 02/08/2025, Expires: 02/08/2026 [facility] Work Phone: Comment on above: Expected: 02/08/2025 , Expires: 02/08/2026 Start: 02-08-2025 End: 02-08-2026 SYPHILIS TREPONEMAL W/REFLEX SYPHILIS TREPONEMAL W/REFLEX Lab Routine Encounter for supervision of normal first in second trimester (HCC) 24 weeks gestation of (HCC) Expected: 02/08/2025, Expires: 02/08/2026 [facility] Comment on above: Expected: 02/08/2025 , Expires: 02/08/2026 Start: 02-08-2025 End: 02-08-2025 Patient encounter procedure 02/08/2025 10:30 AM EDT Routine Office Visit OB/Gynecology [address] [place] [address] Lynnette Tapia APRN.CN [address] [place] [address] LMP:08/24/24, New 1st OB 12/28/24 OB/Gynecology Comment on above: LMP:08/24/24, New 1st OB 12/28/24 Start: 02-05-2025 End: 02-05-2025 Patient encounter procedure [facility] Comment on above: est care, hx EDS and POTS, EKG non-specific ST-T wave abnormality, currently . MS est care, hx EDS and POTS, EKG non-specific ST-T wave abnormality, currently . MS/ EKG kk Start: 02-05-2025 [facility] Start: 02-05-2025 Patient discharge [facility] Start: 02-04-2025 Nonstress test [facility] Start: 02-04-2025 Obstetric monitoring [facility] Start: 02-04-2025 Vital signs measurements [facility] Start: 02-04-2025 [facility] Start: 02-04-2025 Bacteria identified in Urine by Culture Urine Culture [facility] Start: 02-02-2025 End: 02-02-2025 [facility] Start: 02-02-2025 Nonstress test [facility] Start: 02-02-2025 Obstetric monitoring [facility] Start: 02-02-2025 Vital signs measurements [facility] Start: 02-02-2025 [facility] Start: 02-02-2025 Bacteria identified in Urine by Culture Urine Culture [facility] Start: 02-02-2025 Patient discharge [facility] Start: 01-28-2025 End: 01-28-2025 Patient encounter procedure 01/28/2025 10:00 AM EDT Routine Office Visit OB/Gynecology [address] [place] [address] Magda Aragon MD [address] [place] [address] LMP:3/31/25, New 1st OB 12/28/24 OB/Gynecology Comment on above: LMP:08/24/24, New 1st OB 12/28/24 Start: 01-25-2025 Influenza vaccination Influenza Vacc ine (#1) [facility] Start: 01-11-2025 End: 01-11-2025 Patient encounter procedure [facility] Comment on above: Anatomy Anatomy/OB Start: 01-11-2025 End: 04-12-2025 TSH W/REFLEX FT4 TSH W/REFLEX FT4 Lab Routine Palpitations Other fatigue Weakness Expected: 01/11/2025, Expires: 04/12/2025 [facility] Comment on above: Expected: 01/11/2025 , Expires: 04/12/2025 Start: 12-28-2024 End: 12-28-2025 OBSTETRIC ULTRASOUND WHI OBSTETRIC ULTRASOUND WHI Anc Imaging Routine Visit for screening ([facility]) Expected: 12/28/2024, Expires: 12/28/2025 [facility] Work Phone: Comment on above: Expected: 12/28/2024 , Expires: 12/28/2025 Start: 12-28-2024 End: 12-28-2024 Patient encounter procedure OB/Gynecology Comment on above: LMP:08/24/24 LMP:08/24/24 - record s in chart prep binder Start: 12-21-2024 [facility] Start: 12-21-2024 [facility] Start: 12-21-2024 Bacteria identified in Urine by Culture Urine Culture [facility] Start: 01-26-2024 Covid-19 Vaccine ( season) Covid-19 Vaccine ( season) [facility] Start: 11-25-2023 Hepatitis B Vaccine (1 of 3 - 19+ 3-dose series) Hepatitis B Vaccine (1 of 3 - 19+ 3-dose series) [facility] Start: 11-25-2023 Urine microalbumin profile DTaP,Tdap,Td Vaccine (1 - Tdap) [facility] Start: 2022 Anxiety Screening Anxiety Screening [facility] Start: 2022 Depression Screening Depression Scre ening [facility] Start: 2022 GC (Gonorrhea) Scree hernando (18-24) GC (Gonorrhea) Screening (18-24) [facility] Start: 2022 Hepatitis C screening Hepatitis C Sc hugo [facility] Start: 2022 HIV screening HIV Screening [facility] Start: 2022 Screening for Chlamy eva trachomatis Chlamydia Screening (18-24) [facility] Start: 2020 Meningococcal B Vacc ine (1 of 2 - Standard) Meningococcal B Vaccine (1 of 2 - Standard) [facility] Start: 11-25-2019 HPV Vaccine (1 - 3-d ose series) HPV Vaccine (1 - 3-dose series) [facility] Start: 2018 Peds To Adult Transi tion Annual Assessment Peds To Adult Transition Annual Assessment [facility] Start: 2016 Peds To Adult Transi tion Initial Discussion Peds To Adult Transition Initial Discussion [facility] Bacteria identified in Urine by Culture BACTERIAL CULTURE, URINE Microbiology Routine Burning with urination Ordered: 01/11/2025 [facility] Comment on above: Ordered: 01/11/2025 Bacteria identified in Urine by Culture BACTERIAL CULTURE, URINE Microbiology Routine Vaginal discharge during in second trimester ([facility]) 02/08/2025 11:17 AM EDT [facility] BACTERIAL VAGINOSIS NAAT BACTERI AL VAGINOSIS NAAT Lab Routine Visit for screening ([facility]) 12/28/2024 11:27 AM EDT [facility] BACTERIAL VAGINOSIS NAAT BACTERI AL VAGINOSIS NAAT Lab Routine Bacterial vaginosis Ordered: 01/11/2025 [facility] Work Phone: Comment on above: Ordered: 01/11/2025 PARVEEN/TRICHOMONAS NAAT PARVEEN /TRICHOMONAS NAAT Lab Routine Visit for screening ([facility]) 12/28/2024 11:27 AM EDT [facility] PARVEEN/TRICHOMONAS NAAT PARVEEN /TRICHOMONAS NAAT Lab Routine Bacterial vaginosis Ordered: 01/11/2025 [facility] Comment on above: Ordered: 01/11/2025 Patient Education Kick Counts ED False Labor OB Triage: Return to Hospital or Notify Physician if you Experience: [facility] Work Phone: Urine culture [facility] Urine culture [facility] Urine culture [facility] Payers Date Payer Category Payer Self-pay 2023 [employer] Blue [facility] BLUE CARD PPO OOS Member Subscriber Plan / Payer (Effective 2023-Present) Name: PAL NICHOLAS Relation to Subscriber: Child Name: EJ BARRERA Date of : 1981 (Home) [address]: [address] [place] [id number] Payer ID: [id number] (NAIC) Type: PPO Address: [facility] [id number] [place] [id number] 2023 Unknown [id number] Unknown [id number] Unknown [id number] Unknown [id number] Unknown [id number] Unknown [id number] Social History Date Type Detail Facility Tobacco smoking stat us RIIS Tobacco smoking consumption unknown [facility] Start: 2004 Sex assigned at Not on file [facility] Start: 12-28-2024 End: 01-11-2025 Gender identity Not on file [facility] Start: 12-21-2024 End: 12-28-2024 Tobacco smoking status NHIS Never smoked tobacco (finding) [facility] Start: 2005 Sex Assigned At Female [facility] Start: 09-07-2024 [facility] Start: 12-28-2024 Tobacco use and exposure Smokeless tobacco non-user [facility] Start: 12-28-2024 End: 01-11-2025 History of Social function [facility] Start: 11-30-2024 Adult Depression Screening Assessment 0 [facility] Goals Date Patient Goal Desired Activity /State Personal health goal Personal health goal Functional Status Date Assessment Result Facility 01-19-2025 Are you deaf, or do you have serious difficulty hearing No 01/19/2025 3:40 AM Armida Owens RN No [facility] 01-19-2025 Are you blind, or do you have serious difficulty seeing, even when wearing glasses No 01/19/2025 3:40 AM Armida Owens RN No [facility] 01-19-2025 Do you have serious difficulty walking or climbing stairs No 01/19/2025 3:40 AM Armida Owens RN No [facility] 01-19-2025 Do you have difficul ty dressing or bathing No 01/19/2025 3:40 AM Armida Owens RN No [facility] 01-19-2025 Because of a physica l, mental, or emotional condition, do you have difficulty doing errands alone such as visiting a physician's office or shopping No 01/19/2025 3:40 AM Armida Owens RN No [facility] 01-06-2025 Are you deaf, or do you have serious difficulty hearing No 01/06/2025 10:25 PM Benita Yeager RN No [facility] 01-06-2025 Are you blind, or do you have serious difficulty seeing, even when wearing glasses No 01/06/2025 10:25 PM Benita Yeager RN No [facility] 01-06-2025 Do you have serious difficulty walking or climbing stairs No 01/06/2025 10:25 PM Benita Yeager RN No [facility] 01-06-2025 Do you have difficul ty dressing or bathing No 01/06/2025 10:25 PM Benita Yeager RN No [facility] 01-06-2025 Because of a physica l, mental, or emotional condition, do you have difficulty doing errands alone such as visiting a physician's office or shopping No 01/06/2025 10:25 PM MANJULAT Benita Bradley RN No [facility] 01-05-2025 Are you deaf, or do you have serious difficulty hearing No 01/05/2025 2:21 AM MANJULAT Ayanna Alatorre RN No [facility] 01-05-2025 Are you blind, or do you have serious difficulty seeing, even when wearing glasses No 01/05/2025 2:21 AM Ayanna Price RN No [facility] 01-05-2025 Do you have serious difficulty walking or climbing stairs No 01/05/2025 2:21 AM Ayanna Price RN No [facility] 01-05-2025 Do you have difficul ty dressing or bathing No 01/05/2025 2:21 AM Ayanna Price RN No [facility] 01-05-2025 Because of a physica l, mental, or emotional condition, do you have difficulty doing errands alone such as visiting a physician's office or shopping No 01/05/2025 2:21 AM Ayanna Price RN No [facility] 12-22-2024 Are you deaf, or do you have serious difficulty hearing No 12/22/2024 9:46 PM Armida Rodriguez RN No [facility] 12-22-2024 Are you blind, or do you have serious difficulty seeing, even when wearing glasses No 12/22/2024 9:46 PM Armida Rodriguez, LEVON No [facility] 12-22-2024 Do you have serious difficulty walking or climbing stairs No 12/22/2024 9:46 PM Armida Rodriguez RN No [facility] 12-22-2024 Do you have difficul ty dressing or bathing No 12/22/2024 9:46 PM Armida Rodriguez RN No [facility] 12-22-2024 Because of a physica l, mental, or emotional condition, do you have difficulty doing errands alone such as visiting a physician's office or shopping No 12/22/2024 9:46 PM Armida Rodriguez RN No [facility] Mental Status Date Assessment Result Facility 01-19-2025 Because of a physica l, mental, or emotional condition, do you have serious difficulty concentrating, remembering, or making decisions No 01/19/2025 3:40 AM EDArmida Sanz RN No [facility] 01-06-2025 Because of a physica l, mental, or emotional condition, do you have serious difficulty concentrating, remembering, or making decisions No 01/06/2025 10:25 PM EDT Benita Bradley, LEVON No [facility] 01-05-2025 Because of a physica l, mental, or emotional condition, do you have serious difficulty concentrating, remembering, or making decisions No 01/05/2025 2:21 AM EDT Ayanna Alatorre, LEVON No [facility] 12-22-2024 Because of a physica l, mental, or emotional condition, do you have serious difficulty concentrating, remembering, or making decisions No 12/22/2024 9:46 PM EDArmida Smith, LEVON [facility] Clinical Notes 2004 to 03-11-2025 Note Date & Type Note Facility 03-11-2025 Note HNO ID: [id number] Author: JOCELYNE BLACK RN Service: ? Author Type: Registered Nurse Type: Progress Notes Filed: 03/11/2025 12:22 Note Text: The patient is here for an injection of Rhogam. Dose: 300 mcg Amount wasted: none. Route: Intramuscular Site: left upper quadrant gluteus Meteorological Technician: CSL Behring Lot #: [id number] Expiration Date: 09/04/2026 Jocelyne Black RN [facility] 03-11-2025 Note HNO ID: [id number] Author: PRITI SHARMA MA Service: ? Author Type: Aviation Support Equipment Repairer Type: Progress Notes Filed: 03/11/2025 12:22 Note Text: Patient identified by name and date of . Pal Garcia Sarahy Kaur presents today for a vaccination of Tdap. Patient denies an allergy to latex: yes Patient denies a severe (life-threatening) allergy to a previous dose of Tdap, DTP, DTaP, DT or Td vaccine. Yes Patient denies history of epilepsy or neurological problems: Yes Patient is afebrile and denies being moderately or severely ill: Yes Patient denies history of Guillain-Iredell Syndrome (a severe paralytic illness): Yes Tdap Adacel injection was given without incident. See immunizations for details of immunizations administered today. VIS sheet provided: Yes Provider Ramakrishna Corley DO was present in office at time of injection. Priti Sharma MA [facility] 03-08-2025 Note HNO ID: [id number] Author: REGGIE MA MD Service: ? Author Type: Physician Type: Progress Notes Filed: 03/08/2025 09:45 Note Text: PRIMARY CARE PHYSICIAN: To use this Smartlink, specify the provider ID whose address you want to display, e.g., .PROVADDR[1 (where 1 is the provider ID). REFERRING PHYSICIAN: Lynnette Nuñez[address] [facility] [id number] CHIEF COMPLAINT: Abnormal EKG HISTORY OF PRESENT ILLNESS: Ms. 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 She is currently 28 weeks . No prior pregnancies and no losses. She stated POTS has been under control prior to her . She has chest pain that occurs irrespective of activity. They occur at rest and are usually mild in severity and last for variable periods with spontaneous resolution. The chest pain does not radiate. She has palpitations which are constant. They are different from what she had when she had POTS and she says they work on a daily basis. She had EKGs on account of her complaints and this showed features in keeping with possible inferior infarct and anterior ischemia. She however admitted that she has had recurrent episodes of hypokalemia that required repletion. The T wave abnormalities on those EKGs may have correlated with her hypokalemic episodes. She also has shortness of breath. No leg swelling. No orthopnea or PND. No diaphoresis or feeling of impending doom. She does not smoke cigarettes or drink alcohol. He denies use of illicit drugs. 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 She has 1 other sibling. She is here in the office with her mom. Paternal grandfather suddenly at age 49. She stated the diagnosis of Myles-Danlos was made by a appliances sample maker and appeals rn. She is not sure if she had genetic testing. PAST MEDICAL HISTORY Diagnosis Date Asthma (HCC) 2012 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HCC) POTS (postural orthostatic tachycardia syndrome) Recurrent UTI History reviewed. No pertinent surgical history. MEDICATIONS: Catheter (SELF-CATHETER, FEMALE) 14 Fr misc 1 Units once daily as needed. pseudoephed/acetaminoph/diphen (BENADRYL COLD ORAL) Take by mouth. aspirin, enteric coated (ECOTRIN LOW STRENGTH) 81 mg EC tablet Take 1 tablet by mouth once daily. vit 75/iron/folic/om3 (DAILY ORAL) Take by mouth. nitrofurantoin monohydrate and macrocrystal (MACROBID) 100 mg capsule Take 1 capsule every 12 hours by oral route for 7 days. (Patient not taking: Reported on 02/16/2025) doxylamine succinate (UNISOM, DOXYLAMINE, PO) Take 25 mg by mouth once daily. (Patient not taking: Reported on 02/16/2025) pyridoxine, vitamin B6, (VITAMIN B-6) 25 mg tablet Take 25 mg by mouth once daily. (Patient not taking: Reported on 02/16/2025) ALLERGIES No Known Allergies SOCIAL HISTORY: SOCIAL HISTORY[1] History reviewed. No pertinent family history. REVIEW OF SYSTEMS: GENERAL: Negative for: Weight loss or gain, Fever, Chills, or Night sweats Negative unless as otherwise stated in the HPI PHYSICAL EXAMINATION: BP 124/80 Pulse 98 Wt 189 lb 9.6 oz (86.0kg) SpO2 97% LMP 08/24/2024 GENERAL: Well appearing, in no acute distress. HEENT: no JVD LUNGS: Clear to auscultation bilaterally, no rales, wheezing, or rhonchi. HEART: Regular rate and rhythm; normal S1/S2; no murmurs, gallops, or rubs Abdomen: Mccammon distended. Nontender. EXTREMETIES: No peripheral edema. Grade 2/4 distal pulses bilaterally. NEURO: Grossly nonfocal WBC (k/uL) Date Value 01/18/2025 10.04 RBC (m/uL) Date Value 01/18/2025 3.71 (L) Hemoglobin (g/dL) Date Value 01/18/2025 11.5 Hematocrit (%) Date Value 01/18/2025 34.6 (L) MCV (fL) Date Value 01/18/2025 93.3 MCH (pg) Date Value 01/18/2025 31.0 MCHC (g/dL) Date Value 01/18/2025 33.2 RDW-CV (%) Date Value 01/18/2025 14.1 Platelet Count (k/uL) Date Value 01/18/2025 242 MPV (fL) Date Value 01/18/2025 9.2 Glucose (mg/dL) Date Value 01/18/2025 63 (L) BUN (mg/dL) Date Value 01/18/2025 4 (L) Creatinine (mg/dL) Date Value 01/18/2025 0.50 (L) Sodium (mmol/L) Date Value 01/18/2025 137 Potassium (mmol/L) Date Value 01/18/2025 3.8 Chloride (mmol/L) Date Value 01/18/2025 103 CO2 (mmol/L) Date Value 01/18/2025 22 Protein, Total (g/dL) Date Value 01/18/2025 6.5 Albumin (g/dL) Date Value 01/18/2025 3.8 (L) Calcium, Total (mg/dL) Date Value 01/18/2025 8.6 Alkaline Phosphatase (U/L) Date Value 01/18/2025 57 Bilirubin, Total (mg/dL) Date Value 01/18/2025 0.3 AST (U/L) Date Value 01/18/2025 16 ALT (U/L) Date Value 01/18/2025 11 URINALYSIS Specific Mccammon, Ur Date Value Ref Range Status 02/13/2025 1.019 1.005 - 1.030 Final Glucose, Urine Date Value Ref Range Status 02/13/2025 Negative Trac (more content not included)... [facility] 02-23-2025 History and physical note Note Date/Time February 23, 2025 9:06pm [facility] [place] Medical Records Department [address] [address] OB Triage Physician Note 02/23/252054 MR#: [id number] Acct: [id number] Name: PAL NICHOLAS Rep #:[id number] : 2005 19 From: Lester Phillips MD PCP: Care Physician,No Primary Status :REG CLI Y Location: [id number] HPI - General General Date of Service: 02/23/25 HPI Narrative PAL NICHOLAS, is a 19 F who presents back pain, side pain and some contractions. Maternal Data Information AMARI Calculator 2 Estimated Delivery Date Method Current WG Current Estimate 05/31/25 Manual 26w 1d PFSH PFS Medical History (Updated 02/23/25 @ 20:[address] Lester Phillips MD) POTS (postural orthostatic tachycardia syndrome) Myles-Danlos syndrome Home Medications ?Medication ?Instructions ?Recorded ?Last Taken ?Type aspirin 81 mg capsule 81 mg PO DAILY 02/02/2501/25 20:00 History 81 mg vit no.95-ferrous 1 tab PO DAILY 02/02/2503/20 20:00 History fumarate 28 mg-folic acid 800 mcg 1 TA B tablet () Allergy/AdvReac Type Severity Reaction Status Date / Time No Known Allergies Allergy Verified 02/23/25 20:56 Social History Smoking Status: Never smoker History 1 Elective abortions Hx Para 0 Spontaneous abortions Hx # Term Pregnancies Ectopic pregnancies Hx # Pregnancies Multiple births # of living children Physical Exam external exam normal Narrative: cvx - cl/th/hi NST FHR Rate Baby A Baseline: 140 Accelerations:: 15 x 15 Decelerations:: None Uterine Activity:: Irritability Assessment & Plan (1) Threatened labor: QUALIFIERS: Trimester: third trimester Qualified Code(s): O47.03 - False labor before 37 completed weeks of gestation, third trimester PLAN: Plan Reactive NST No evidence PTL 02/23/252105 <Electronically signed by Lester Phillips MD> Date _ Lester Phillips MD Cosigner Signature (if applicable): Date CC: Dr. Lester Phillips MD; No Primary Care Physician ~ Signed [facility] Work Phone: 1(727) 714-612509-30-2025 History and physical note [facility] [place] Medical Records Department [address] [place] [address] OB Triage Physician Note 02/23/252054 MR#: [id number] Acct: [id number] Name: PAL NICHOLAS Rep #:[id number] : 2005 From: Lester Phillips MD PCP: Care Physician,No Primary Status :REG CLI Y Location: [place] [address]-1 HPI - General General Date of Service: 02/23/25 HPI Narrative PAL NICHOLAS, is a 19 F who presents back pain, side pain and some contractions. Maternal Data Information AMARI Calculator 2 Estimated Delivery Date Method Current WG Current Estimate 05/31/25 Manual 26w 1d PFSH [facility] Medical History (Updated 02/23/25 @ 20:[address] Lester Phillips MD) POTS (postural orthostatic tachycardia syndrome) Myles-Danlos syndrome Home Medications ?Medication ?Instructions ?Recorded ?Last Taken ?Type aspirin 81 mg capsule 81 mg PO DAILY 02/02/2501/25 20:00 History 81 mg vit no.95-ferrous 1 tab PO DAILY 02/02/2503/20 20:00 History fumarate 28 mg-folic acid 800 mcg 1 TA B tablet () Allergy/AdvReac Type Severity Reaction Status Date / Time No Known Allergies Allergy Verified 02/23/25 20:56 Social History Smoking Status: Never smoker History 1 Elective abortions Hx Para 0 Spontaneous abortions Hx # Term Pregnancies Ectopic pregnancies Hx # Pregnancies Multiple births # of living children Physical Exam external exam normal Narrative: cvx - cl/th/hi NST FHR Rate Baby A Baseline: 140 Accelerations:: 15 x 15 Decelerations:: None Uterine Activity:: Irritability Assessment & Plan (1) Threatened labor: QUALIFIERS: Trimester: third trimester Qualified Code(s): O47.03 - False labor before 37 completed weeks of gestation, third trimester PLAN: Plan Reactive NST No evidence PTL 02/23/252105 > Date _ Lester Phillips MD Cosigner Signature (if applicable): Date CC: Dr. Lester Phillips MD; No Primary Care Physician ~ Signed [facility]09-25-2025 NoteHNO ID: [id number] Author: KARI JOHNSTON MD Service: ? Author Type: Physician Type: Progress Notes Filed: 02/18/2025 13:16 Note Text: Female Pelvic Medicine AND Reconstructive Surgery Consult Recording using [employer] software for draft documentation of the visit was discussed with the patient/authorized veterans contact representative; all questions welcomed and answered. Patient/authorized veterans contact representative agreed to proceed CHIEF COMPLAINT: Pal Nicholas is a 19 year old female who presents for consultation requested by Dr. Lester Phillips for an opinion regarding Incomplete bladder emptying. My final recommendations will be communicated back to the requesting physician by way of shared Medical record or letter to requesting physician via US mail. HISTORY OF PRESENT ILLNESS: The patient is a 19-year-old female, currently 25 weeks and 3 days , presenting with difficulty emptying her bladder completely. The patient reports difficulty fully emptying her bladder, with symptoms beginning around 12 weeks of gestation. She describes variable ability to urinate, sometimes feeling unable to void at all. She has been attempting to urinate frequently, sometimes up to 6 times per day, but notes that even with increased fluid intake, she occasionally does not feel the urge to urinate. She has been using warm water to stimulate urination when unable to void. She was taught to perform self-catheterization and has been using straight catheters as needed, approximately once daily, when unable to urinate. She requests a prescription for straight catheters, as she was only provided with two initially. She mentions a history of severe UTIs prior to , characterized by sudden onset of symptoms and hematuria. Since becoming , she has been treated for UTIs based on her history, though recent urine cultures have been negative. She initially experienced dysuria, which has since resolved. A recent urinalysis on February 13 showed WBCs and skin cells, but no hematuria; a prior urinalysis on February 08 was normal. She also reports experiencing constant contractions and had a CT scan a few weeks ago that showed bladder wall thickening. Medical and Symptom History: LMP: Patient's last menstrual period was 08/24/2024 (exact date).; Menopause n/a: ALLERGIES No Known Allergies Current Outpatient Medications Medication Sig pseudoephed/acetaminoph/diphen (BENADRYL COLD ORAL) Take by mouth. aspirin, enteric coated (ECOTRIN LOW STRENGTH) 81 mg EC tablet Take 1 tablet by mouth once daily. vit 75/iron/folic/om3 (DAILY ORAL) Take by mouth. Catheter (SELF-CATHETER, FEMALE) 14 Fr misc 1 Units once daily as needed. nitrofurantoin monohydrate and macrocrystal (MACROBID) 100 mg capsule Take 1 capsule every 12 hours by oral route for 7 days. (Patient not taking: Reported on 02/16/2025) doxylamine succinate (UNISOM, DOXYLAMINE, PO) Take 25 mg by mouth once daily. (Patient not taking: Reported on 02/16/2025) pyridoxine, vitamin B6, (VITAMIN B-6) 25 mg tablet Take 25 mg by mouth once daily. (Patient not taking: Reported on 02/16/2025) No current facility-administered medications for this visit. History reviewed. No pertinent surgical history. PAST MEDICAL HISTORY Diagnosis Date Asthma (HCC) 2012 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HCC) POTS (postural orthostatic tachycardia syndrome) Recurrent UTI History reviewed. No pertinent family history. SOCIAL HISTORYSOCIAL HISTORY[1] Occupation: Unemployed, Not Seeking Work Marital Status: Single Sexually active: is not sexually active because she of pain. Review of Systems Constitutional: Negative for chills, diaphoresis and fever. HENT: Negative for drooling, ear discharge, facial swelling, nosebleeds, sore throat and trouble swallowing. Eyes: Negative for discharge, redness, itching and visual disturbance. Respiratory: Negative for apnea, choking, chest tightness, shortness of breath, wheezing and stridor. Cardiovascular: Negative for chest pain and palpitations. Gastrointestinal: Negative for abdominal distention, abdominal pain, anal bleeding, blood in stool, nausea and vomiting. Endocrine: Negative for cold intolerance and heat intolerance. Genitourinary: Negative for genital sores, menstrual problem and vaginal bleeding. Musculoskeletal: Negative for gait problem, myalgias, neck pain and neck stiffness. Skin: Negative for pallor, rash and wound. Allergic/Immunologic: Negative for environmental allergies, food allergies and immunocompromised state. Neurological: Negative for dizziness, seizures, facial asymmetry, speech difficulty, light-headedness, numbness and headaches. Hematological: Negative for adenopathy. Does not bruise/bleed easily. Psychiatric/Behavioral: Negative for agitation, behavioral problems, confusion and hallucinations. Genitourinary: (+) urinary retention, (+) uterine contractio (more content not included)...[facility]09-20-2025 NoteHNO ID: [id number] Author: KERVIN GARDINER DO Service: Obstetrics Author Type: Resident Type: Progress Notes Filed: 02/13/2025 15:07 Note Text: Prior to discharge, the following Plan of care discussed with: Provider, RN, Patient. Received pyridium dose in [place]. Discussed ultrasound findings and encouraged hydration. Patient interested in outpatient follow-up with Urogynecology, referral sent. Discharged with some catheters to self-cath intermittently. Teaching completed. All questions answered, patient understanding of all points. Discharge Vital signs: .BP 125/84 Pulse 101 Temp 36.7 ?C (98.1 ?F) (Temporal) Resp 16 Ht 170.2 cm (5' 7) Wt 78.9 kg (174 lb) LMP 08/24/2024 (Exact Date) SpO2 98% BMI 27.25 kg/m? Follow-up: Appointments for Next 60 Days Date Time Provider Location Dept Phone 03/08/2025 9:20 AM TASHIAJudieCARINA TONYSHAWNA Mcelroy [facility] [phone] 03/11/2025 9:45 AM LAB [facility]ELIC[facility] Tito Conklin [phone] 03/11/2025 10:00 AM I TECH 1 HUMANITIES COORDINATOR [facility] FELICIANO Tito Conklin [phone] 03/11/2025 10:00 AM HUMANITIES COORDINATOR [facility] US REMOTE Tito Conklin [phone] 03/11/2025 11:10 AM RAMAKRISHNA CORLEY [phone] Precautions: Reviewed return precautions including vaginal bleeding soaking through a pad an hour for 2 consecutive hours, increasing or severe abdominal pain, intractable nausea/vomiting. New or adjusted home medications: none Other recommendations/instructions: Follow-up with Urogynecology outpatient. [facility] NoteHNO ID: [id number] Author: KERVIN GARDINER DO Service: Obstetrics Author Type: Resident Type: Progress Notes Filed: 02/13/2025 14:39 Note Text: 1325: Completed TVUS. Concern for possible funneling with contractions. Discussed with MFM production wood craftsman given possible funneling in the setting of Myles' Danlos syndrome. Advised to encourage hydration and that no other intervention indicated at this time. Kervin Gardiner DO PGY-1 February 13, 2025 1:49 [facility]09-20-2025 NoteHNO ID: [id number] Author: MARIAJOSE MONTANEZ MD Service: Obstetrics Author Type: Resident Type: Procedures Filed: 02/17/2025 10:04 Note Text: Attestation signed by Mariajose Montanez MD at 02/17/2025 10:04 AM Attending Note I was present and agree with the documentation below. Signature: Mariajose Montanez MD Date: February 17, 2025 Time: 10:04 AM BEDSIDE PROCEDURE NOTE US OB LIMITED (POC) LND USE ONLY Date/Time: 02/13/2025 1:41 PM Performed by: Kervin Gardiner DO Authorized by: Alexa Dickson MD Limited Ultrasound: 2nd/3rd Trimester Probe used: Endocavitary Indications: Evaluate the cervix Ultrasound Findings: Number of Fetuses: One Fetus: Presentation: Vertex Maternal Structures Uterus: Cervical Length: 3.24cm Conclusion Clinical Gestational age: 24w5d Ultrasound Gestational age: Impression: Other (see comment) Comments: Cervical length appropriate, possible funneling present on US. Imaging study performed by: Resident/KYLIE with Attending supervision Resident Performing Ultrasound: Dr. Gardiner Attending Supervising/Performing Ultrasound: Dr. Montanez Images saved for exam: Yes Images associated with this report can be found under the Get Images tab in [employer]. SIGNATURE: Kervin Gardiner DO PATIENT NAME: Pal Nicholas DATE: February 13, 2025 TIME: 1:41 [facility]09-20-2025 NoteHNO ID: [id number] Author: RONALD COOPER RN Service: Nursing Author Type: Registered Nurse Type: Progress Notes Filed: 02/13/2025 10:59 Note Text: Bladder scanner not recognizing bladder probe. After troubleshooting, not able to use. Dr. Montanez aware.[facility]09-20-2025 NoteHNO ID: [id number] Author: MARIAJOSE MONTANEZ MD Service: Obstetrics Author Type: Resident Type: Progress Notes Filed: 02/17/2025 10:03 Note Text: Attestation signed by Mariajose Montanez MD at 02/17/2025 10:03 AM Attending Note I evaluated the patient and personally participated in the monroy components. I agree with the resident's findings and plan as documented and have discussed the case and management of the patient's care with the resident. 19yo G1 at 24w5d here with concerns of urinary retention. Pt states since around 13 weeks she has had difficulty completely emptying her bladder. She has had to sit and move in different directions to feel her bladder completely empty. She has had concern for UTI but has not had a positive culture. She has just recently completed a course of macrobid. Today she states the symptoms are worse than usual and also has c/o contractions. BP 125/84 Pulse 101 Temp 36.7 ?C (98.1 ?F) (Temporal) Resp 16 Ht 170.2 cm (5' 7) Wt 78.9 kg (174 lb) LMP 08/24/2024 (Exact Date) SpO2 98% BMI 27.25 kg/m? Gen: NAD, AANDOX3 Abd: gravid, NT, contractions palpate mild, uterus soft between contractions, mild suprapubic tenderness to palpation SVE: cl/20/-3 PVR: 200mL via straight cath (after urinating 100mL) TVUS: CL 3.74cm, possible funneling noted? But CL unchanged with noted contractions while performing ultrasound therefore this is likely not funneling Plan: We reviewed that structural causes of urinary retention usually improve into the mid-second trimester. Urine culture of straight cath sent for analysis (low suspicion for UTI); attempted to obtain straight cath kit for patient at home however only parsno inserts found - this was given to the patient and she was counseled on straight cath after urinating. We reviewed indications to straight cath and when to stop pending PVR. Return precautions reviewed at length. Signature: Mariajose Montanez MD Date: February 17, 2025 Time: 9:56 AM OBSTETRICS OB ED PROGRESS NOTE SERVICE DATE: February 13, 2025 SERVICE TIME: 10:30 AM Subjective Patient's stated reason for arrival: can't empty my bladder all the way causing pain CHIEF COMPLAINT: bladder fullness HISTORY OF THE PRESENT ILLNESS: The patient is a 19 year old female, , who is at 24w5d with an AMARI of 05/31/2025, by Last Menstrual Period dating method. Patient is here complaining of urinary fullness. Good movement. Denies vaginal bleeding., C/O of occasional contractions., Denies leaking of fluid. . Pt reports 12 week histpry of sensation of urinary retention.Reports earlier in positionally she could empty bladder but recently has been unable to positionally void. Denies fevers, chills. Denies blood in urine, abnormal vaginal discharge. PAST MEDICAL HISTORY Diagnosis Date Asthma (HCC) 2012 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HCC) POTS (postural orthostatic tachycardia syndrome) Recurrent UTI OB History Gravida1 Para0 Term0 Preterm0 AB0 Living0 SAB0 IAB0 Ectopic0 Multiple0 Live Births0 REVIEW OF SYSTEMS: As per HPI Objective LAST VITALS: Pulse: 101 BP: 125/84 Resp: 16 Temp: 36.7 ?C (98.1 ?F) SpO2: 98 % Height: 170.2 cm (5' 7) Weight: 78.9 kg (174 lb) BMI: 27.25 SENSITIVE EXAMINATION CONSENT: Participation of a fellow, resident, medical student, or advanced practice provider student in performing the sensitive examination was discussed with the patient or authorized veterans contact representative. The patient or authorized veterans contact representative has agreed to proceed with the sensitive examination. PHYSICAL EXAM: General appearance: Well appearing, well nourished, in no acute distress Lungs: Breathing comfortably on room air Lungs clear to auscultation. No wheezing, rhonchi, rales Abdomen: Abdomen soft, mildly tender suprapubic region, non-distended. Pelvic: Normal appearing external genitalia. No lesions or ulcers. No prominent LN in the groin notes. Cervix closed CERVICAL EXAM: Dilation: Closed (02/13/25 1142 : Kervin Gardiner DO) Station: -2 (02/13/25 1142 : Kervin Gardiner DO) Effacement (%): 20 (02/13/25 1142 : Kervin Gardiner DO) MONITORING/ASSESSMENT: NST with discrete interpretation : MONITORING/ASSESSMENT: Baseline Rate: 140 bpm (02/13/25 1030 : Ronald Cooper RN) Variability: Moderate (6-25 bpm) (02/13/25 1030 : Ronald Cooper RN) Accelerations: Present (02/13/25 1030 : Ronald Cooper RN) Decelerations: None (02/13/25 1030 : Ronald Cooper RN) Contractions: Irregular (02/13/25 1030 : Ronald Cooper RN) Contraction Frequency (min): x1 (02/13/25 1030 : Ronald Cooper RN) NST INTERPRETATION: FHR Category: 1 (02/13/25 1030 : Ronald Cooper RN) LABS Diagnostic tests reviewed for today's visit: Most recent labs and imaging (more content not included)...[facility]09-15-2025 Progress note* Quick Notes - Lynnette Tapia APRN.CNM - 02/08/2025 10:40 AM EDT S: Pal Nicholas is a 19 year [...] No apparent distress Abd: Gravid, non tender 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- small amount of yellow / white discharge [...] and planning Fresh Test Lynnette Tapia APRN.CNM [facility]09-15-2025 Miscellaneous Notes* Quick Notes - Lynnette Tapia APRN.CNM - 02/08/2025 10:40 AM EDT S: Pal Nicholas is a 19 year [...] No apparent distress Abd: Gravid, non tender 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- small amount of yellow / white discharge [...] Test Lynnette Tapia APRN.CNM documented in this encounterMorrow [facility] Hospital09-12-2025 History and physical note Author Lynnette Tapia [facility] Note Date/Time February 05, 2025 5:47pm [facility] Medical Records Department [address] [place] [address] OB Triage Physician Note 02/05/25 1742 MR#: [id number] Acct: [id number] Name: PAL NICHOLAS Rep #:[id number] : 2005 19 From: Lynnette Tapia CNM PCP: Care Physician,No Primary Status :REG CLI Y Location: [place] [id number] HPI - General General Chief Complaint: jones's HPI Narrative PAL NICHOLAS, is a 19 [...] Suprapubic pain: (3) History of UTI: (4) Dayton Zaragoza' contraction: COMMENT: cervix closed (5) 23 weeks gestation of : PLAN: Plan Positive movements Increase fluids CE - closed/ unchanged Continue taking Macrobid 100 mg Po BID- did not take dose today D/C home with follow up in office 02/05/25 0310 <Electronically signed by Lynnette huffman CNM> Date _ Lynnette Tapia CNM Cosigner Signature (if applicable): Date CC: HUMPHREY Tapia; No Primary Care Physician ~ Signed [facility] Work Phone: 1(399) 974-512509-12-2025 History and physical note [facility] [place] Medical Records Department [address] [place] [address] OB Triage Physician Note 02/05/25 1742 MR#: [id number] Acct: [id number] Name: PAL NICHOLAS Rep #:[id number] : 2005 19 From: Lynnette Tapia CNM PCP: Care Physician,No Primary Status :REG CLI Y Location: [place] [address] HPI - General General Chief Complaint: ctx's [...] Suprapubic pain: (3) History of UTI: (4) Dayton Zaragoza' contraction: COMMENT: cervix closed (5) 23 weeks gestation of : PLAN: Plan Positive movements Increase fluids CE - closed/ unchanged Continue taking Macrobid 100 mg Po BID- did not take dose today D/C home with follow up in office 02/05/25 1747 ts CNM> Date _ Lynnette Tapia CNM Cosigner Signature (if applicable): Date CC: CNM Lynnette Tapia; No Primary Care Physician ~ Signed [facility]09-12-2025 Telephone encounter Note* Telephone Encounter - [...] for evaluation. L&D notified. Jocelyne Black RN [facility]09-12-2025 Miscellaneous Notes* Telephone Encounter - Jocelyne [...] notified. Jocelyne Black RN documented in this encounterMorrow County Hospital09-12-2025 History and physical note Author Ramakrishna Corley [facility] Note Date/Time February 05, 2025 12:03am [facility] [place] Medical Records Department [address] [place] [address] OB Triage Physician Note 02/04/25 0120 MR#: [id number] Acct: [id number] Name: PAL NICHOLAS Rep #: : 2005 19 From: Ramakrishna Corley DO PCP: Care Physician,No Primary Status :REG CLI Y Location: [address] [facility] - General General Date of Service: 02/04/25 Chief Complaint: ctx's HPI Narrative PAL NICHOLAS, is a 19 F who presents ctx's. She states she has had contractions and abdominal pain for 1-2 weeks. Went to [facility] 2 weeks agofor this and had a [...] vb or lof. No constipation or diarrhea. [facility] Medical History (Updated 02/05/25 @ 00:00 [...] (1) 23 weeks gestation of : (2) Dayton Zaragoza' contraction: COMMENT: cervix closed PLAN: Cervix [...] DO; No Primary Care Physician ~ Signed [facility] Work Phone: 1(880) 494-131009-12-2025 History and physical note [facility] Medical Records Department [address] [place] [address] OB Triage Physician Note 02/04/25 8729 MR#: [id number] Acct: [id number] Name: PAL NICHOLAS Rep #:[id number] : 2005 19 From: Ramakrishna Corley DO PCP: Care Physician,No Primary Status :REG CLI Y Location: [place] [id number] HPI - General General Date of Service: 02/04/25 Chief Complaint: ctx's HPI Narrative PAL NICHOLAS, is a 19 F who presents ctx's. She states she has had contractions and abdominalpain for 1-2 weeks. Went to [facility] 2 weeks agofor this and had a [...] vb or lof. No constipation or diarrhea. PFSH [facility] Medical History (Updated 02/05/25 @ 00:00 [...] (1) 23 weeks gestation of : (2) Dayton Zaragoza' contraction: COMMENT: cervix closed PLAN: Cervix [...] DO; No Primary Care Physician ~ Signed [facility]09-09-2025 History and physical note [facility] [place] Medical Records Department [address] [place] [address] OB Triage Physician Note 02/02/25 1366 MR#: [id number] Acct: [id number] Name: PAL NICHOLAS Rep #:[id number] : 2005 19 From: Magda Aragon MD PCP: Care Physician,No Primary Status :REG CLI Y Location: [place] [address] HPI - General General Date of Admission: [...] (1) 23 weeks gestation of : (2) Dayton Zaragoza' contraction: COMMENT: cervix closed 02/02/25 1758 in MD> Date _ Magda Aragon MD Cosigner Signature (if applicable): Date CC: Dr. Magda Aragon MD; No Primary Care Physician ~ Signed [facility]09-09-2025 Evaluation note* Diagnosis Onset Date Resolution Status Admit Date 23 weeks gestation of acute February 02 8:50pm Angel Zaragoza' contraction acute February 02, 2025 8:50pm [facility] Work Phone: [phone]) 282-161709-09-2025 Evaluation note* Diagnosis Onset Date Resolution Status Admit Date 23 weeks gestation of acute February 02 8:50pm Angel Zaragoza' contraction acute February 02, 2025 8:50pm 23 weeks gestation of acute February 04, 2025 10:13pm Dayton Zaragoza' contraction acute February 04, 2025 10:13pm Dysuria acute January 10:13pm History of UTI acute February 04, 2025 10:13pm Suprapubic pain acute February 04, 2025 10:13pm [facility] Work Phone: 1(676) 247-548309-09-2025 Evaluation note* Diagnosis Onset Date Resolution Status Admit Date 23 weeks gestation of acute February 02 8:50pm Dayton Zaragoza' contraction acute February 02, 2025 8:50pm 23 weeks gestation of acute February 04, 2025 10:13pm Angel Zaragoza' contraction acute February 04, 2025 10:13pm Dysuria acute January 10:13pm History of UTI acute February 04, 2025 10:13pm Suprapubic pain acute February 04, 2025 10:13pm Dysuria acute January 9:49pm Suprapubic pain acute February 13, 2025 9:49pm [facility] Work Phone: 1(711) 197-779409-09-2025 Evaluation note* Diagnosis Onset Date Resolution Status Admit Date 23 weeks gestation of acute February 02, 025 8:50pm Dayton Zaragoza' contraction acute February 02, 2025 8:50pm 23 weeks gestation of acute February 04, 2025 10:13pm Angel Zaragoza' contraction acute February 04, 2025 10:13pm Dysuria acute January 10:13pm History of UTI acute February 04, 2025 10:13pm Suprapubic pain acute February 04, 2025 10:13pm Dysuria acute January 9:49pm Suprapubic pain acute February 13, 2025 9:49pm Threatened labor acute February 23, 2025 8:00pm [facility] Work Phone: 1(393) 999-721009-09-2025 Miscellaneous Notes* Quick Notes - Lester Phillips MD - 02/02/2025 2:25 PM EDT KJ - S: Jolenelinette denies contractions or vaginal bleeding. Patient reports increased discharge with possible LOF. Also would like checked for a UTI,. O: 23w1d, see flow sheet SENSITIVE EXAM: The sensitive examination was discussed with the Patient or Patient's Authorized Studio Potter. As applicable, any other physician, advance practice provider, medical student, or other health professional student that will be observing or involved in the sensitive examination for educational or training purposes was discussed with the Patient or Authorized Studio Potter. The Patient or Authorized Studio Potter has agreed to proceed with the sensitive examination. (Sensitive examination includes inspection and/or palpation of the breasts, pelvis, prostate and anorectal regions). SSE: normal vagina, cervix closed negative pool/fern/nitrazine A/P: Assessment & Plan Vaginal discharge during , antepartum (HCC) Orders: UA DIP, URINE (POC) Patient reassured on normal vaginal discharge. Follow up as scheduled. Lester Phillips MD documented in this encounterMorrow [facility] Hospital09-09-2025 Progress note* Quick Notes - Lester Phillips MD - 02/02/2025 2:25 PM EDT KJ - S: Pal denies contractions or vaginal bleeding. Patient reports increased discharge with possible LOF. Also would like checked for a UTI,. O: 23w1d, see flow sheet SENSITIVE EXAM: The sensitive examination was discussed with the Patient or Patient's Authorized Studio Potter. As applicable, any other physician, advance practice provider, medical student, or other health professional student that will be observing or involved in the sensitive examination for educational or training purposes was discussed with the Patient or Authorized Studio Potter. The Patient or Authorized Studio Potter has agreed to proceed with the sensitive examination. (Sensitive examination includes inspection and/or palpation of the breasts, pelvis, prostate and anorectal regions). SSE: normal vagina, cervix closed negative pool/fern/nitrazine A/P: Assessment & Plan Vaginal discharge during , antepartum (HCC) Orders: UA DIP, URINE (POC) Patient reassured on normal vaginal discharge. Follow up as scheduled. Lester Phillips MD [facility]09-09-2025 Telephone encounter Note* Telephone Encounter - Magda Hagen RN - 02/02/2025 11:11 AM EDT Patient called in to the office. Appointment given today. Magda Hagen RN [facility]09-09-2025 Miscellaneous Notes* Telephone Encounter - Magda Hagen RN - 02/02/2025 11:11 AM EDT Patient called in to the office. Appointment given today. Magda Hagen RN documented in this encounterMorrow County Hospital08-27-2025 Telephone encounter Note * Telephone Encounter - Jocelyne Black RN - 01/20/2025 11:33 AM EDT Order signed and faxed. Jocelyne Black RN [facility]08-27-2025 Miscellaneous Notes* Telephone Encounter - Jocelyne Black RN - 01/20/2025 11:33 AM EDT Order signed and faxed. Jocelyne Black RN * Telephone Encounter - Isaura Pereira RN - 01/18/2025 8:45 AM EDT Breast pump order received from [facility]. To CP to sign. Isaura Pereira RN documented in this encounterMorrow County Hospital08-27-2025 NoteHNO ID: [id number] Author: KARINA SALDAÑA MD Service: ? Author [...] was discussed with the patient or authorized veterans contact representative. The patient or authorized veterans contact representative has agreed to proceed with the sensitive examination. @ 21.2 weeks Assessment AND Plan Encounter for supervision of normal first in second trimester ([facility]) Vaginal discharge Vaginal cultures today 21 weeks [...] Making Level: 4 - Moderate Karina Omer [facility]08-27-2025 History of Present illness Narrative* Karina Saldaña [...] was discussed with the patient or authorized veterans contact representative. The patient or authorized veterans contact representative has agreed to proceed with the [...] Moderate Karina Omer MD documented in this encounterMorrow County Hospital08-27-2025 Progress note* Quick Notes - Karina [...] was discussed with the patient or authorized veterans contact representative. The patient or authorized veterans contact representative has agreed to proceed with the sensitive examination. @ 21.2 weeks Assessment & Plan Encounter for supervision of normal first in second trimester ([facility]) Vaginal discharge Vaginal cultures today 21 weeks gestation of ([facility]) RTO as scheduled Abdominal pain affecting ([facility]) Went to ER had CT scan - no acute findings. Causes of pain reviewed with patient. - abdominal binder Karina Omer MD [facility]08-27-2025 Miscellaneous Notes* Quick Notes - Karina [...] was discussed with the patient or authorized veterans contact representative. The patient or authorized veterans contact representative has agreed to proceed with the sensitive examination. @ 21.2 weeks Assessment & Plan Encounter for supervision of normal first in second trimester ([facility]) Vaginal discharge Vaginal cultures today 21 weeks gestation of (HCC) RTO as scheduled Abdominal pain affecting (HCC) Went to ER had CT scan - no acute findings. Causes of pain reviewed with patient. - abdominal binder Karina Omer MD documented in this encounterMorrow County Hospital08-27-2025 Instructions* Patient Instructions* Ana Cristina Fitch MA - 01/20/2025 9:54 AM EDT SEQUENTIAL SCREENINGS The [facility] offers sequential screenings for women who [...] testing. It will require an appointment withour dispensary technician. This is not an ultrasound performed [...] the above symptoms, contact our office at [phone] and ask to speak with anurse. After hours, you can call doctors registry at [phone] OR call [facility] at [phone] ask to have the doctor production wood craftsman paged. If you consider this an emergency, dial [phone] or go to your nearest emergency department. NEED HELP? Are you dealing with a violent or abusive relationship? Are you a victim of rape or sexual assult? Call [facility] ([facility] 24 hour Crisis Hotline: 295.139.1091 or 873-549-0004. MANUAL Your Guide to a Healthy manual is now on-line. Visit [email or web address] to download your free copy documented in this encounterMorrow County Hospital08-26-2025 NoteHNO ID: [id number] Author: ARMIDA PENNINGTON RN Service: Nursing Author Type: Registered Nurse Type: Nursing Progress Note Filed: 01/19/2025 00:45 Note Text: Patient returned to [facility] at this time. No distress noted.[facility]08-26-2025 NoteHNO ID: [id number] Author: ARMIDA PENNINGTON RN Service: Nursing Author Type: Registered Nurse Type: Nursing Progress Note Filed: 01/19/2025 00:45 Note Text: Patient taken to CT at this time via wheelchair. RN accompanied patient. No distress noted.[facility]08-25-2025 NoteHNO ID: [id number] Author: CHAD LOYOLA DO Service: Obstetrics Author [...] medical physics group. Chad Loyola DO, MPH RADAR TECHNICIAN PGY-2[facility]08-25-2025 NoteHNO ID: [id number] Author: CHAD LOYOLA DO Service: Obstetrics Author [...] . PAST MEDICAL HISTORY Diagnosis Date Asthma (HCC) [...] was discussed with the patient or authorized veterans contact representative. The patient or authorized veterans contact representative has agreed to proceed with the [...] EXAM: Dilation: Closed (01/18/25 2200 : Chad Loyola DO) MONITORING/ASSESSMENT: 145bpm via doppler, heart rate [...] Zamorano. SIGNATURE: Chad Loyola DO PATIENT NAME: Pla Nicholas DATE: January 18, 2025 TIME: 9:34 PM PAGER/CONTACT #: [id number]08-25-2025 Telephone encounter Note* Telephone Encounter - Isaura Pereira RN - 01/18/2025 8:45 AM EDT Breast pump order received from [facility]. To CP to sign. Isaura Pereira RN [facility]08-21-2025 Telephone encounter Note* Telephone Encounter - Ramakrishna Corley MD - 01/14/2025 1:34 PM EDT See result note [facility]08-21-2025 Miscellaneous Notes* Telephone Encounter - Ramakrishna Corley MD - 01/14/2025 1:34 PM EDT See result note documented in this encounterMorrow County Hospital08-18-2025 Note* Addendum Note - Ramakrishna Corley MD - 01/11/2025 3:49 PM EDTAddended by: RAMAKRISHNA CORLEY on: 01/11/2025 03:49 PM Modules accepted: Orders [facility]08-18-2025 Miscellaneous Notes* Addendum Note - Ramakrishna [...] several weeks ago, treated after she wentto [place] triage. Now has dysuria. No vb, lof, [...] wks Ramakrishna Corley DO documented in this encounterMorrow County Hospital08-18-2025 Note* Addendum Note - Priti Sharma MA - 01/11/2025 3:24 PM EDTAddended by: PRITI SHARMA on: 01/11/2025 03:24 PM Modules accepted: Orders [facility]08-18-2025 Progress note* Quick Notes - Ramakrishna Corley MD - 01/11/2025 3:12 PM EDT SW- Lower pelvic cramping and dysuria with a BV infection several weeks ago, treated after she wentto [place] triage. Now has dysuria. No vb, lof, [...] - Rto 4 wks Ramakrishna Corley DO [facility]08-18-2025 Instructions* Patient Instructions* Priti Sharma MA - 01/11/2025 2:59 PM EDT SEQUENTIAL SCREENINGS The [facility] offers sequential screenings for women who [...] testing. It will require an appointment withour dispensary technician. This is not an ultrasound performed [...] the above symptoms, contact our office at [phone] and ask to speak with anurse. After hours, you can call doctors registry at [phone] OR call [facility] at [phone] ask to have the doctor production wood craftsman paged. If you consider this an emergency, dial 2-5-3 or go to your nearest emergency department. NEED HELP? Are you dealing with a violent or abusive relationship? Are you a victim of rape or sexual assult? Call [facility] ([place]) 24 hour Crisis Hotline: 150.386.2252 or 019-881-8933. MANUAL Your Guide to a Healthy manual is now on-line. Visit [email or web address] to download your free copy documented in this encounterMorrow County Hospital08-15-2025 Telephone encounter Note * Telephone Encounter - Kari Abebe - 01/08/2025 2:39 PM EDT Scheduled 02/05/[address] Burns. Kari Abebe [facility]08-15-2025 Miscellaneous Notes* Telephone Encounter - Kari Abebe - 01/08/2025 2:39 PM EDT Scheduled 02/05/[address] Burns. Kari Abebe * Telephone Encounter - Ej Rodriguez MD - 01/07/2025 12:40 PM EDT Patient was seen by resident but not by any attending appeals rn while in labor and delivery she is and carries diagnosis of Myles-Danlos syndrome and POTS. She needs a new patient general cardiology appointment in the next 1 to 4 weeks. Please try to arrange this. If there are no spots or anyone let me know thanks Ej Rodriguez MD documented in this encounterMorrow County Hospital08-14-2025 Telephone encounter Note * Telephone Encounter - Ej Rodriguez MD - 01/07/2025 12:40 PM EDT Patient was seen by resident but not by any attending appeals rn while in labor and delivery she is and carries diagnosis of Myles-Danlos syndrome and POTS. She needs a new patient general cardiology appointment in the next 1 to 4 weeks. Please try to arrange this. If there are no spots or anyone let me know thanks Ej Rodriguez MD [facility] Work Phone: 1(796) 662-830308-14-2025 Telephone encounter Note* Telephone Encounter - Jocelyne Black RN - 01/07/2025 10:35 AM EDT Patient was seen at [facility] last night. She has OB and MFM appointment on Saturday. Jocelyne Black RN [facility]08-14-2025 Miscellaneous Notes* Telephone Encounter - Jocelyne Black RN - 01/07/2025 10:35 AM EDT Patient was seen at [facility] last night. She has OB and MFM [...] 01/05 telephone notes. Patient was seen at [facility] ED triage on 01/04. The diarrhea has resolved. Advised that she go back to [facility] as the office is closing. Patient asked for an appointment tomorrow instead because of transportation. No available appointments. Advised that she should be evaluated today in case she is having labor. Voiced understanding and believes she could have a friend take her. CAROLINA Hagen RN documented in this encounterMorrow County Hospital08-14-2025 Telephone encounter Note * Telephone Encounter - Karina Addison MD - 01/07/2025 10:00 AM EDT If not improved work in any cancellations, go to L&D for eval or schedule tomorrow if openings.Karina Addison MD [facility] Work Phone: 1(670) 697-985708-13-2025 NoteHNO ID: [id number] Author: ALEXA DICKSON MD Service: Obstetrics Author [...] usual. 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 The patient or authorized veterans contact representative has agreed to proceed with the [...] normal, oropharynx (more content not included)...[facility]08-13-2025 Telephone encounter Note* Telephone Encounter - [...] 01/05 telephone notes. Patient was seen at [facility] ED triage on 01/04. The diarrhea has resolved. Advised that she go back to [facility] as the office is closing. Patient asked for an appointment tomorrow instead because of transportation. No available appointments. Advised that she should be evaluated today in case she is having labor. Voiced understanding and believes she could have a friend take her. CAROLINA Hagen RN [facility] [facility] Telephone encounter Note* Telephone Encounter - Jocelyne Black RN - 01/05/2025 12:19 PM EDT Patient notified and voiced understanding. Jocelyne Black RN [facility]08-12-2025 Miscellaneous Notes* Telephone Encounter - Jocelyne Black RN - 01/05/2025 12:19 PM EDT Patient notified and voiced understanding. Jocelyne Black RN * Telephone Encounter - Lester Phillips MD - 01/05/2025 12:07 PM EDT Patient was seen by Azael Kulkarni while at [facility]. I recommend supportive care with hydration, potassiumrich foods such as bananas and rest. Agree that after a GI illness it can take several days to feelbetter. Please keep current appointment on Saturday. Lester Phillips MD * Telephone Encounter - Magda Hagen RN - 01/05/2025 11:34 AM EDT 19w1d See 01/04 phone note. Patient went to [facility] ED last night. [place] notes available to review. Patient was prescribed [...] feel completely confident in the diagnosis from [place]. Please advise. Magda Hagen RN documented [facility] Telephone encounter Note * Telephone Encounter - Lester Phillips MD - 01/05/2025 12:07 PM EDT Patient was seen by Azael Kulkarni while at [facility]. I recommend supportive care with hydration, potassiumrich foods such as bananas and rest. Agree that after a GI illness it can take several days to feelbetter. Please keep current appointment on Saturday. Lester Phillips MD [facility] Work Phone: 1(636) 983-568508-12-2025 Telephone encounter Note* Telephone Encounter - Magda Hagen RN - 01/05/2025 11:34 AM EDT 19w1d See 01/04 phone note. Patient went to [facility] OB ED last night. [place] notes available to review. Patient was prescribed [...] feel completely confident in the diagnosis from [place]. Please advise. Magda Hagen RN [facility]08-12-2025 Telephone encounter Note* Telephone Encounter - Jayla Keller MD - 01/05/2025 11:17 AM EDT Images from the original note were not included. Patient called requesting Rx for potassium and imodium after being seen in the OB ED 1 day ago. Jayla Keller MD [facility]08-12-2025 Miscellaneous Notes* Telephone Encounter - Jayla Keller MD - 01/05/2025 11:17 AM EDT Images from the original note were not included. Patient called requesting Rx for potassium and imodium after being seen in the OB ED 1 day ago. Jayla Keller MD documented in this encounterM[facility]08-[facility]25 NoteHNO ID: [id number] Author: KARINA ADDISON MD Service: Obstetrics Author [...] breath. 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 The patient or authorized veterans contact representative has agreed to proceed with the [...] course of (more content not included)...[facility]08-11-2025 Telephone encounter Note* Telephone Encounter - Maite Peterson RN - [...] states this is stayingthe same since at [facility] 12/22/24. Last few weeks, Pt states extremely watery discharge. Went to [facility] at that time d/t havingsharp cervical pain & was treated for BV. Feels hydrated/Has been drinking liquid IV. Does havesome burning on urination & was seen on 12/30/24 in office-UA completed and TRACE protein and TRACE leukocytes. Advised Pt that since pain has worsened as the day as gone on that it would be best to go to [facility] OB triage to be evaluated as no appts available in office at this time. Pt did state she'd feel more comfortable going there and that is essentially why she called as she wanted to discuss with a nurse. Pt states her ride will not be able to pick her up for another 30 minutes, but Pt is agreeable to go to [place]. Dr. Aragon notified. Maite Peterson RN [facility]08-11-2025 Miscellaneous Notes* Telephone Encounter - Maite [...] states this is stayingthe same since at [facility] 12/22/24. Last few weeks, Pt states extremely watery discharge. Went to [facility] at that time d/t havingsharp cervical pain & was treated for BV. Feels hydrated/Has been drinking liquid IV. Does havesome burning on urination & was seen on 12/30/24 in office-UA completed and TRACE protein and TRACE leukocytes. Advised Pt that since pain has worsened as the day as gone on that it would be best to go to [facility] OB triage to be evaluated as no appts available in office at this time. Pt did state she'd feel more comfortable going there and that is essentially why she called as she wanted to discuss with a nurse. Pt states her ride will not be able to pick her up for another 30 minutes, but Pt is agreeable to go to [place]. Dr. Aragon notified. Maite Peterson, RN documented in this encounterMorrow [facility] Hospital08-04-2025 Miscellaneous Notes* Quick Notes - Lynnette Tapia APRN.CNM - 12/28/2024 11:15 AM EDT Patient is at 18 weeks gestation here for NOB. She is new to office and has received adequateprenatal care in [place]. Awaiting records. Lynnette Tapia APRN.CNM documented in this encounterMorrow [facility] Hospital08-04-2025 Progress note* Quick Notes - Lynnette Tapia APRN.CNM - 12/28/2024 11:15 AM EDT Patient is at 18 weeks gestation here for NOB. She is new to office and has received adequateprenatal care in [place]. Awaiting records. Lynnette Tapia APRN.CNM [facility]08-04-2025 NoteHNO ID: [id number] Author: LYNNETTE TAPIA APRN.CNM Service: ? Author Type: Sales Agent Insurance Type: Progress Notes Filed: 12/28/2024 13:23 Note Text: Bread Dumper offered: Patient declines. INITIAL OB ASSESSMENT HPI: [...] all that apply)? Centering (group care classes); Senior Web Applications Developer; Sales Agent Insurance care Social History: Do you have any [...] Partner: Name: Zaki Steven Age: 18 Occupation: [employer] Gender: Male PAST MEDICAL HISTORY Diagnosis Date [...] Itching GENITOURINARY: Negative f (more content not included)...[facility]08-04-2025 History of Present illness Narrative* Plotts, LynnetteDARIAN.CNM - 12/28/2024 8:36 AM EDT Bread Dumper offered: Patient declines. INITIAL OB ASSESSMENT HPI: [...] all that apply)? 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 As applicable, any other physician, advance practice provider, medical student, or other health professional student that will be observing or involved in the sensitive examination for educational or training purposes was discussed with the Patient or Authorized Studio Potter. The Patient or Authorized Studio Potter has agreed to proceed with the sensitive [...] Your guide to a health and the Ditch Cleaner. Discussed Centering group- MAY BE INTERESTED 2) [...] prirving. Lynnette Tapia APRN.CNM documented in this encounterMorrow [facility] Hospital08-04-2025 Instructions* Patient Instructions* Ralph Molina LPN - 12/28/2024 8:36 AM EDT Please select the following link to access the [facility] Your Guide to a Healthy . [email or web address] documented in this encounterMorrow County Hospital08-01-2025 Telephone encounter Note * Telephone Encounter - Isaura Pereira RN - 12/25/2024 12:13 PM EDT Records received from [facility] in [place]. In chart prep binder for NOB appt on 12/28 with CP. Isaura Pereira RN [facility]08-01-2025 Miscellaneous Notes* Telephone Encounter - Isaura Pereira RN - 12/25/2024 12:13 PM EDT Records received from [facility] in [place]. In chart prep binder for NOB appt on 12/28 with CP. Isaura Pereira RN documented in this encounterMorrow [facility] Hospital07-29-2025 NoteHNO ID: [id number] Author: MARK FOREMAN MD Service: Obstetrics Author [...] the patient on December 22, 2024 Mark Formean MD OBSTETRICS OB ED PROGRESS NOTE SERVICE [...] and recurrent UTIs. She recently moved from [place] and is establishing care with [facility]. Pt states her abdominal pain is intermittent and began around 6 pm yesterday. She was evaluated at [place] ED yesterday where she was found to [...] nausea, vomiting, or diarrhea : + dysuria 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: Negative for abnormal vaginal bleeding, + for [...] was discussed with the patient or authorized veterans contact representative. The patient or authorized veterans contact representative has agreed to proceed with the sensitive examination. PHYSICAL EXAM: General: WD, WN Abdomen: soft, ,mild diffuse tenderness Pelvis: External genitalia normal without lesions. Perineal body intact. No vaginal or cervical lesions. Cervix closed. Thick discharge noted. No odor noted. Extremities: no edema SSE: wet prep ASSESSMENT: heart rate present: Mode: Doppler (12/22/242020 : Mariann Milton RN) Doppler/Fetoscope Rate: 150 bpm (12/22/242020 : [...] a course (more content not included)...[facility]07-29-2025 Telephone encounter Note* Telephone Encounter - Magda Hagen RN - 12/22/2024 4:23 PM EDT Patient notified. Magda Hagen RN [facility]07-29-2025 Miscellaneous Notes* Telephone Encounter - Magda [...] urgent issue or go to ANG[facility]A at [facility] or see if there is a sooner NOB elsewhere to get her established then f/u here. Karina Addison MD * Telephone Encounter - Magda Hagen RN - 12/22/2024 12:26 PM EDT New WHI OB seen at [facility] ER yesterday for pelvic pain. LMP 08/24/24. Approximately 17w1d. Patient calling because she still continues to have pelvic pain and pressure. Pain rate of 5-6. Taking Tylenol and using heat with no relief. States when she went to the ER her pain was 8-9. Denies LOF or VB. Per [facility] ER report: Discussed the case with on-call RADAR TECHNICIAN for [facility] Dr. Aragon who states that she can [...] of medical records from her previous OB. [facility] ER report to RR to review. Magda Hagen RN documented in this encounterMorrow County Hospital07-29-2025 Telephone encounter Note * Telephone Encounter - Karina Addison MD - 12/22/2024 3:38 PM EDT Agree w/ keep scheduled appointment. Make sure we have US results/labs for NOB. If infection ruled out and no bleeding would recommend stretching, tylenol and warm baths prn. Can return to ED if urgent issue or go to [facility] at [facility] or see if there is a sooner NOB elsewhere to get her established then f/u here. Karina Addison MD [facility] Work Phone: 1(294) 962-993607-29-2025 Telephone encounter Note* Telephone Encounter - Magda Hagen RN - 12/22/2024 12:26 PM EDT New WHI OB seen at [facility] ER yesterday for pelvic pain. LMP 08/24/24. Approximately 17w1d. Patient calling because she still continues to have pelvic pain and pressure. Pain rate of 5-6. Taking Tylenol and using heat with no relief. States when she went to the ER her pain was 8-9. Denies LOF or VB. Per [facility] ER report: Discussed the case with on-call RADAR TECHNICIAN for [facility] Dr. Aragon who states that she can [...] of medical records from her previous OB. [facility] ER report to RR to review. Magda Hagen RN [facility]07-28-2025 Discharge summary [facility] Medical Records Department [address] [place] [address] Emergency Department Summary 12/21/24 MR#: [id number] Acct: [id number] Name: PAL NICHOLAS Rep #:[id number] : 2005 19 From: Aftab Mendoza DO [...] management. States that she is following with [facility] OB. Patient denies any vaginal spotting or bleeding. [facility] Medical History (Updated 12/21/24 @ 23:39 by [...] follow commands knew that she was at [facility] the year is 2024 Skin: Warm, [...] of infection. Discussed the case with on-call RADAR TECHNICIAN for [facility] Dr. Aragon who states that she can [...] 72.9 H Lymph % (Auto) 18.4 L Garrard % (Auto) 6.2 Eos % (Auto) 1.4 [...] Clarity Clear Urine pH 6.5 Ur Specific Mccammon 1.010 Urine Protein Negative Urine Glucose (UA) [...] - Activity Restrictions/Additional Instructions: Follow-up with your RADAR TECHNICIAN at your scheduled appointment on Saturday. Your blood work did not show any acute findings your urine did not show any evidence infection. Return with worsening symptoms or any concerns. Ensure you are hydrating plenty with water. Print Language: Niuean Disposition Disposition: Home, Self Care What to do if you have Problems For any increased pain, shortness of breath, bleeding, nausea or vomiting, chestpain, or any unexpected problems, contact your Primary Care Provider. Call [facility] ([phone]) or report tothe closest Emergency Room. Call 911 if necessary. 12/21/24 7645 Cosigner Signature (if applicable): CC: No Primary Care Physician ~ Signed [facility]07-28-2025 Discharge summary Author Aftab Mendoza [facility] Note Date/Time December 21, 2024 11:3 9pm [facility] Medical Records Department [address] [place] [address] Emergency Department Summary 12/21/24 MR#: [id number] Acct: [id number] Name: PAL NICHOLAS Rep #:[id number] : 2005 19 From: Aftab Mendoza DO [...] management. States that she is following with [facility] OB. Patient denies any vaginal spotting or bleeding. [facility] Medical History (Updated 12/21/24 @ 23:39 by [...] follow commands knew that she was at [facility] the year is 2024 Skin: Warm, [...] of infection. Discussed the case with on-call RADAR TECHNICIAN for [facility] Dr. Aragon who states that she can [...] 72.9 H Lymph % (Auto) 18.4 L Garrard % (Auto) 6.2 Eos % (Auto) 1.4 [...] Clarity Clear Urine pH 6.5 Ur Specific Mccammon 1.010 Urine Protein Negative Urine Glucose (UA) [...] - Activity Restrictions/Additional Instructions: Follow-up with your RADAR TECHNICIAN at your scheduled appointment on Saturday. Your blood work did not show any acute findings your urine did not show any evidence infection. Return with worsening symptoms or any concerns. Ensure you are hydrating plenty with water. Print Language: Niuean Disposition Disposition: Home, Self Care What to do if you have Problems For any increased pain, shortness of breath, bleeding, nausea or vomiting, chestpain, or any unexpected problems, contact your Primary Care Provider. Call [facility] ([phone]) or report to the closest Emergency Room. Call 911 if necessary. 12/21/24 1482 <Electronically signed by Aftab Mendoza DO> Cosigner Signature (if applicable): CC: No Primary Care Physician ~ Signed [facility] Work Phone: 1(887) 271-514607-28-2025 Hospital Discharge instructionsAdditional Instructions Follow-up with your RADAR TECHNICIAN at your scheduled appointment on Saturday. Your blood work did not show any acute findings your urine did not show any evidence infection. Return with worsening symptoms or any concerns. Ensure you are hydrating plenty with water.[facility] Work Phone: 1(861) 574-466207-08-2025 Telephone encounter Note* Telephone Encounter - Maria Alejandra Kay RN - 12/01/2024 10:27 AM EDT Name and verified. Patient wishes to transfer to [facility] for OB care. AMARI? 05/31/25 Gestational age? 14w1d Patient aware to sign up for My Chart so she can receive the career development associate messages. What facility is she transferring from? [facility] in [place] Moving to [place] in 2 weeks and will be approx [...] would the patient like to establish in? [place] Will route this encounter to the desired office. Maria Alejandra Kay RN [facility]07-08-2025 Miscellaneous Notes* Telephone Encounter - Maria Alejandra Kay RN - 12/01/2024 10:27 AM EDT Name and verified. Patient wishes to transfer to [facility] for OB care. AMARI? 05/31/25 Gestational age? 14w1d Patient aware to sign up for My Chart so she can receive the career development associate messages. What facility is she transferring from? [facility] in [place] Moving to [place] in 2 weeks and will be approx [...] would the patient like to establish in? [place] Will route this encounter to the desired [...] 2005 Provider for this encounter : [facility]ITIES CO[facility]IN[facility] Reason for call: New OB patient (16 weeks as of 11/30/24), MELVIN from [place] Was an appointment scheduled: No Reason for requesting visit (RFV/signs and symptoms/diagnosis) : Establish with OB at [facility] for continuation of care. Person calling: self Return call to: self Call patient at: [phone] (cell), it is OK to leave message Payor: ANTHEM / Plan: BLUE CARD PPO OOS / Product Type: PPO / Rica Garcia documented in this encounterMorrow County Hospital07-08-2025 Telephone encounter Note * Telephone Encounter - Maria Alejandra Kay RN - 12/01/2024 10:09 AM EDT Call placed to patient to triage for new OB appt. Left message for patient to call back Maria Alejandra Kay RN [facility]07-08-2025 Telephone encounter Note* Telephone Encounter - Maria Alejandra Kay RN - 12/01/2024 8:38 AM EDT Call placed to patient to triage for new OB appt. No answer, will try later Maria Alejandra Kay RN [facility]07-08-2025 Telephone encounter Note* Telephone Encounter - Maria Alejandra Kay RN - 12/01/2024 8:37 AM EDT ----- Message from Rica Pendleton sent at 11/30/2024 4:05 PM EDT ----- Regarding: New/MELVIN OB 16 weeks Patient has been identified by name and Date of : Yes Patient: Pal Nicholas Date of : 2005 Provider for this encounter : [facility]UMANITIES CO[facility]INATOR [facility] Reason for call: New OB patient (16 weeks as of 11/30/24), MELVIN from [place] Was an appointment scheduled: No Reason for requesting visit (RFV/signs and symptoms/diagnosis) : Establish with OB at [facility] for continuation of care. Person calling: self Return call to: self Call patient at: [phone] (cell), it is OK to leave message Payor: ANTHEM / Plan: BLUE CARD PPO OOS / Product Type: PPO / Rica Garcia [facility]07-01-2005 History and physical note [facility] Medical Records Department [address] [place] [address] OB Triage Physician Note 02/13/25 3471 MR#: [id number] Acct: [id number] Name: PAL NICHOLAS Rep #:[id number] : 2005 19 From: Magda Aragon MD PCP: Care Physician,No Primary Status :DEP CLI Y Location: [facility] - General General Date of Service: 02/13/25 Chief Complaint: pain HPI Narrative PAL NICHOLAS, is a 19 F who presents with bladder pain and unable to void.Was in Triage at [facility] early and had straight cath for 200 cc. US and urine collected. Was given supplies to self cath but didn't feel comfortable. Has beenhaving this pain since before . Has a urogyn referral. Does notice increased pain with acidic liquids. Discussed possible IC and what foods to avoid. Does feel like she could self cath with the help of her boyfriend. 200 ccdrained here. No bleeding no fluid loss Maternal Data Information AMARI Calculator Estimated Delivery Date Method Current WG Current Estimate 05/31/25 Manual 24w 6d Final AMARI: 05/31/25 Gestational age: 24+6 PFSH PFSH Medical History (Updated 02/05/25 @ [...] / Time No Known Allergies Allergy Verified 02/13/25 22:13 Social History Smoking Status: Never smoker History 1 Elective abortions Hx Para 0 Spontaneous abortions Hx # Term Pregnancies Ectopic pregnancies Hx # Pregnancies Multiple births # of living children NST FHR Rate Baby A Baseline: 140 Variability:: Moderate Accelerations:: 10 x 10 Decelerations:: None NST Reactive:: Appropriate for gestational age Assessment & Plan (1) Dysuria: (2) Suprapubic pain: PLAN: Plan Discussed food avoidance and bladder journal. Will increase fluid intake. Keep referral to urogyn 02/14/252047 in MD> Date _ Magda Aragon MD Cosigner Signature (if applicable): Date CC: Dr. 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 Screening for STD (sexually transmitted disease) Screening examination for venereal disease Abdominal pain during in second trimester ([facility]) Bacterial vaginosis Vaginitis and vulvovaginitis, unspecified [facility] Diagnosis Abdominal pain affecting ([facility]) Diarrhea Hypokalemia Hypopotassemia Headache Chest pain during ([facility]) Vaginal discharge during ([facility]) Dizziness Dizziness and giddiness Chronic hypertension affecting ([facility]) 19 weeks gestation of ([facility]) state, incidental Pelvic pressure in ([facility]) Other specified complication, antepartum Bacterial vaginosis- Primary Vaginitis and vulvovaginitis, unspecified 20 weeks gestation of ([facility]) state, incidental Burning with urination Dysuria Palpitations Other fatigue Weakness Other malaise and fatigue Encounter for supervision of normal first in second trimester ([facility]) Supervision of normal first documented [facility] this encounter [facility]* Diagnosis Abdominal pain affecting ([facility]) Diarrhea Hypokalemia Hypopotassemia Headache Chest pain during ([facility]) Vaginal discharge during ([facility]) Dizziness Dizziness and giddiness Chronic hypertension affecting ([facility]) 19 weeks gestation of ([facility]) state, incidental Pelvic pressure in ([facility]) Other specified complication, antepartum POTS (postural orthostatic tachycardia syndrome)- Primary Tachycardia, unspecified Visit for screening ([facility]) Unspecified screening 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[facility]) Chronic hypertension affecting ([facility]) documented [facility] this encounter [facility]* Diagnosis Abdominal pain affecting ([facility]) Diarrhea Hypokalemia Hypopotassemia Headache Chest pain during ([facility]) Vaginal discharge during ([facility]) Dizziness Dizziness and giddiness Chronic hypertension affecting ([facility]) Pelvic pressure in ([facility]) Other specified complication, antepartum Dysuria- Primary documented in this encounter [facility]* Diagnosis Diarrhea Hypokalemia Hypopotassemia Headache Chest pain during ([facility]) Vaginal discharge during ([facility]) Dizziness Dizziness and giddiness Pelvic pressure in ([facility]) Other specified complication, antepartum Chronic hypertension affecting ([facility]) Abdominal pain affecting (HCC) 21 weeks gestation of ([facility]) state, incidental Encounter for supervision of normal first in second trimester ([facility])- Primary Supervision of normal first Vaginal discharge Leukorrhea, not specified as infective 21 weeks gestation of ([facility]) state, incidental Abdominal pain affecting ([facility]) * Assessment & Plan Note - Neyhart Blanco, Karina, MD - 01/20/2025 10:40 AM EDTAssociated Problem(s): 21 weeks gestation of (HCC) RTO as scheduled * Assessment & Plan Note - Karina Saldaña MD - 01/20/2025 10:40 AM EDTAssociated Problem(s): Abdominal pain affecting (HCC) Went to ER had CT scan - no acute findings. Causes of pain reviewed with patient. - abdominal binder documented in this encounter [facility] note* Diagnosis Diarrhea Hypokalemia Hypopotassemia Headache Chest pain during (HCC) Vaginal discharge during (HCC) Dizziness Dizziness and giddiness Pelvic pressure in (HCC) Other specified complication, antepartum Chronic hypertension affecting (HCC) Abdominal pain affecting (HCC) 21 weeks gestation of (HCC) state, incidental Encounter for supervision of normal first in second trimester ([facility])- Primary Supervision of normal first Vaginal discharge Leukorrhea, not specified as infective 21 weeks gestation of (HCC) state, incidental Abdominal pain affecting (HCC) Vaginal discharge during , antepartum (HCC)- Primary * Assessment & Plan Note - Lester Phillips MD - 02/02/2025 2:28 PM EDTAssociated Problem(s): Vaginal discharge during (HCC) Orders: UA DIP, URINE (POC) documented in this encounter [facility] note* Diagnosis Diarrhea Hypokalemia Hypopotassemia Headache Chest pain during (HCC) Vaginal discharge during (HCC) Dizziness Dizziness and giddiness Pelvic pressure in (HCC) Other specified complication, antepartum Chronic hypertension affecting (HCC) Abdominal pain affecting (HCC) 21 weeks gestation of ([facility]) state, incidental Encounter for supervision of normal first in second trimester ([facility])- Primary Supervision of normal first Vaginal discharge Leukorrhea, not specified as infective 21 weeks gestation of ([facility]) state, incidental Abdominal pain affecting ([facility]) Vaginal discharge during , antepartum ([facility])- Primary Encounter for supervision of normal first in second trimester ([facility])- Primary Supervision of normal first 24 weeks gestation of ([facility]) state, incidental Screening for diabetes mellitus Vaginal discharge during in second trimester ([facility]) [facility] Author Magda Aragon [facility] Note Date/Time February 02, 2025 11:38pm [facility] Medical Records Department [address] [place] [address] OB Triage Physician Note 02/02/25 2336 MR#: [id number] Acct: [id number] Name: PAL NICHOLAS Rep #:[id number] : 2005 19 From: Magda Aragon MD PCP: Care Physician,No Primary Status :REG CLI Y Location: [address] HPI - General General Date of Admission: 02/02/25 Date of Service: 02/02/25 Chief Complaint: cramping HPI Narrative PAL WEATHERS RAMALCOLMTY, is a 19 F who presents cramping. No bleeding. Some movement.Was seen in office today with normal discharge. Maternal Data Information Final AMARI: 05/31/25 Gestational age: 23 PFSH [facility] Medical History (Updated 02/02/25 @ 23:38 [...] (1) 23 weeks gestation of : (2) [place] Zaragoza' contraction: COMMENT: cervix closed 02/02/25 2648 <Electronically signed by Magda Esparza in > Date _ Magda Aragon MD Cosigner Signature (if applicable): Date CC: Dr. Magda Aragon MD; No Primary Care Physician ~ Signed [facility] Work Phone: History and physical note Author Ramakrishna [facility] Note Date/Time February 05, 2025 12:03[facility] Medical Records Department [address] [place] [address] OB Triage Physician Note 02/04/25 [id number] MR#: [id number] Acct: [id number] Name: PAL NICHOLAS Rep #:[id number] : 2005 19 From: Ramakrishna Corley DO PCP: Care Physician,No Primary Status :REG CLI Y Location: [address] [facility] General Date of Service: 02/04/25 Chief Complaint: ctx's HPI Narrative PAL NICHOLAS, is a 19 F who presents ctx's. She states she has had contractions and abdominal pain for 1-2 weeks. Went to [facility] 2 weeks agofor this and had a [...] vb or lof. No constipation or diarrhea. [facility] Medical History (Updated 02/05/25 @ 00:00 [...] (2) Angel Zaragoza' contraction: COMMENT: cervix closed PLAN: Cervix [...] ; No Primary Care Physician ~ Signed [facility] Work Phone: History and physical note Author Magda Aragon [facility] Note Date/Time February 14, 2025 8:48pm [facility] Medical Records Department [address] [place] [address] OB Triage Physician Note 02/13/25 2321 MR#: [id number] Acct: [id number] Name: PAL NICHOLAS Rep #:[id number] : 2005 From: Magda Aragon MD PCP: Care Physician,No Primary Status :DEP CLI Y Location: [facility] HPI - General General Date of Service: 02/13/25 Chief Complaint: pain HPI Narrative PAL NICHOLAS, is a 19 F who presents with bladder pain and unable to void.Was in Triage at [facility] early and had straight cath for 200 cc. US and urine collected. Was given supplies to self cath but didn't feel comfortable. Has beenhaving this pain since before . Has a urogyn referral. Does notice increased pain with acidic liquids. Discussed possible IC and what foods to avoid. Does feel like she could self cath with the help of her boyfriend. 200 ccdrained here. No bleeding no fluid loss Maternal Data Information AMARI Calculator Estimated Delivery Date Method Current WG Current Estimate 05/31/25 Manual 24w 6d Final AMARI: 05/31/25 Gestational age: 24+6 PFSH PFSH Medical History (Updated 02/05/25 @ [...] / Time No Known Allergies Allergy Verified 02/13/25 22:13 Social History Smoking Status: Never smoker History 1 Elective abortions Hx Para 0 Spontaneous abortions Hx # Term Pregnancies Ectopic pregnancies Hx # Pregnancies Multiple births # of living children NST FHR Rate Baby A Baseline: 140 Variability:: Moderate Accelerations:: 10 x 10 Decelerations:: None NST Reactive:: Appropriate for gestational age Assessment & Plan (1) Dysuria: (2) Suprapubic pain: PLAN: Plan Discussed food avoidance and bladder journal. Will increase fluid intake. Keep referral to urogyn 02/14/252047 <Electronically signed by Magda Esparza in > Date _ [facility]agon [facility] (if applicable): Date CC: Dr. Magda Aragon MD; No Primary Care Physician ~ Signed [facility] Work Phone: Reason for referral (narrative)No reason for referral information availableWOhio [facility] Work Phone: Chief Complaint and Reason for Visit Chief Complaint Admit Date female pain, December 21, 2024 8: 25pm Chief Complaint Admit Date female pain, December 21, 2024 8: 25pm R/O LABOR February 02, 2025 8:50pm Reason for Visit Admit Date 23 weeks gestation of Septembe r 2024 8:50pm [place] Zaragoza' contraction January 8:50pm Chief Complaint Admit Date female pain, December 21, 2024 8: 25pm R/O LABOR February 02, 2025 8:50pm R/O LABOR February 04, 2025 10:13pm Reason for Visit Admit Date 23 weeks gestation of Bár[place] r 2024 8:50pm Angel Zaragoza' contraction January 8:50pm 23 weeks gestation of [place]ár[place] 2024 10:13pm [place] Zaragoza' contraction January 10:13pm Dysuria February 04, 2025 10:13pm History of UTI February 04, 2025 10:13pm Suprapubic pain February 04, 2025 10:13pm Chief Complaint Admit Date female pain, December 21, 2024 8: 25pm R/O LABOR February 02, 2025 8:50pm R/O LABOR February 04, 2025 10:13pm R/O LABOR February 13, 2025 9:49pm Reason for Visit Admit Date 23 weeks gestation of Bárbara r 2024 8:50pm Angel Zaragoza' contraction January 8:50pm 23 weeks gestation of [place]ár[place] 2024 10:13pm [place] Zaragoza' contraction January 10:13pm Dysuria February 04, 2025 10:13pm History of UTI February 04, 2025 10:13pm Suprapubic pain February 04, 2025 10:13pm Dysuria February 13, 2025 9:49pm Suprapubic pain February 13, 2025 9:49pm Chief Complaint Admit Date female pain, December 21, 2024 8: 25pm R/O LABOR February 02, 2025 8:50pm R/O LABOR February 04, 2025 10:13pm R/O LABOR February 13, 2025 9:49pm ABDOMINAL PAIN AND BACK PAIN January 272024 8:00pm Reason for Visit Admit Date 23 weeks gestation of Bár[place] 2024 8:50pm [place] Zaragoza' contraction January 8:50pm 23 weeks gestation of [place] 2024 10:13pm [place] Zaragoza' contraction January 10:13pm Dysuria February 04, 2025 10:13pm History of UTI February 04, 2025 10:13pm Suprapubic pain February 04, 2025 10:13pm Dysuria February 13, 2025 9:49pm Suprapubic pain February 13, 2025 9:49pm Threatened labor February 23, 2025 8:00pm Advance Directives No Advanced Directives Records Found Advance Directive Response Recorded Date/ Time Do you have a Healthcare Power of Therapy Teacher? No December 21, 2024 9:54pm Summary Purpose [...] or prosecute any alcohol or drug abuse patient.[facility] HospitalIn the event this information is protected by the Federal Confidentiality of Alcohol and Drug Abuse Patient Records regulations: The Federal rules restrict any use of the information to criminally investigate or prosecute any alcohol or drug abuse patient.[facility] HospitalIn the event this information is protected by the Federal Confidentiality of Alcohol and Drug Abuse Patient Records regulations: The Federal rules restrict any use of the information to criminally investigate or prosecute any alcohol or drug abuse patient.[facility] HospitalIn the event this information is protected by the Federal Confidentiality of Alcohol and Drug Abuse Patient Records regulations: The Federal rules restrict any use of the information to criminally investigate or prosecute any alcohol or drug abuse patient.[facility] HospitalIn the event this information is protected by the Federal Confidentiality of Alcohol and Drug Abuse Patient Records regulations: The Federal rules restrict any use of the information to criminally investigate or prosecute any alcohol or drug abuse patient.[facility] HospitalIn the event this information is protected by the Federal Confidentiality of Alcohol and Drug Abuse Patient Records regulations: The Federal rules restrict any use of the information to criminally investigate or prosecute any alcohol or drug abuse patient.[facility] HospitalIn the event this information is protected by the Federal Confidentiality of Alcohol and Drug Abuse Patient Records regulations: The Federal rules restrict any use of the information to criminally investigate or prosecute any alcohol or drug abuse patient.[facility] HospitalIn the event this information is protected by the Federal Confidentiality of Alcohol and Drug Abuse Patient Records regulations: The Federal rules restrict any use of the information to criminally investigate or prosecute any alcohol or drug abuse patient.[facility] HospitalIn the event this information is protected by the Federal Confidentiality of Alcohol and Drug Abuse Patient Records regulations: The Federal rules restrict any use of the information to criminally investigate or prosecute any alcohol or drug abuse patient.[facility] HospitalIn the event this information is protected by the Federal Confidentiality of Alcohol and Drug Abuse Patient Records regulations: The Federal rules restrict any use of the information to criminally investigate or prosecute any alcohol or drug abuse patient.[facility] HospitalIn the event this information is protected by the Federal Confidentiality of Alcohol and Drug Abuse Patient Records regulations: The Federal rules restrict any use of the information to criminally investigate or prosecute any alcohol or drug abuse patient.[facility] HospitalIn the event this information is protected by the Federal Confidentiality of Alcohol and Drug Abuse Patient Records regulations: The Federal rules restrict any use of the information to criminally investigate or prosecute any alcohol or drug abuse patient.[facility] HospitalIn the event this information is protected by the Federal Confidentiality of Alcohol and Drug Abuse Patient Records regulations: The Federal rules restrict any use of the information to criminally investigate or prosecute any alcohol or drug abuse patient.[facility] HospitalIn the event this information is protected by the Federal Confidentiality of Alcohol and Drug Abuse Patient Records regulations: The Federal rules restrict any use of the information to criminally investigate or prosecute any alcohol or drug abuse patient.[facility] HospitalIn the event this information is protected by the Federal Confidentiality of Alcohol and Drug Abuse Patient Records regulations: The Federal rules restrict any use of the information to criminally investigate or prosecute any alcohol or drug abuse patient.[facility] HospitalIn the event this information is protected by the Federal Confidentiality of Alcohol and Drug Abuse Patient Records regulations: The Federal rules restrict any use of the information to criminally investigate or prosecute any alcohol or drug abuse patient.[facility] HospitalIn the event this information is protected by the Federal Confidentiality of Alcohol and Drug Abuse Patient Records regulations: The Federal rules restrict any use of the information to criminally investigate or prosecute any alcohol or drug abuse patient.[facility] HospitalIn the event this information is protected by the Federal Confidentiality of Alcohol and Drug Abuse Patient Records regulations: The Federal rules restrict any use of the information to criminally investigate or prosecute any alcohol or drug abuse patient.[facility] HospitalIn the event this information is protected by the Federal Confidentiality of Alcohol and Drug Abuse Patient Records regulations: The Federal rules restrict any use of the information to criminally investigate or prosecute any alcohol or drug abuse patient.[facility] Reason for Visit (unrecogniz ed section and content) Reason Comments Care Coordination Reason Comments OB Pelvic Pain Reason Comments Received Outside Medical Records Reason Comments Care Reason Comments OB Pain Reason Comments OB Vaginal Pressure Reason Onset Date Comments Care 01/11/2025 Reason Comments US Specialty Diagnoses / Procedures Referred By Contdeni t Referred To Contact [facility] Diagnoses Visit for screening ([facility]) Procedures OBSTETRIC ULTRASOUND WHI US PREG UTERUS AFTER 1ST TRIMEST GESTATION Lynnette Tapia APRN.[facility] [address] [place] [address] Phone: tel: fax: [facility] [address] [place] [address] Referral ID Status Reason Start Date Expiration Date V isits Requested Visits Authorized [id number] Closed Auto-Generate d Referral 12/29/2024 05/26/2025 1 [...] 2025 End: February 05, 2025 Team Status: Active Member Role/Relationship Status Dates No Primary Care Physician Primary care physician Activ e Team Status: Inactive Member Role/Relationship Status Dates Dr. Aftab Mendoza DO Attending physician Active Start: December 21, 2024 End: December 22, 2024 Dr. Aftab Mendoza DO Emergency Departga nt Physician Active Start: December 21, 2024 End: December 22, 2024 No Primary Care Physician Primary care physician Activ e Start: December 21, 2024 End: December 22, 2024 Team Status: Inactive Member Role/Relationship Status Dates No Primary Care Physician Primary care physician Activ e Start: February 02, 2025 End: February 02, 2025 Dr. Magda Aragon MD Attending physician Active Start: February 02, 2025 End: February 02, 2025 Dr. Magda Aragon MD Referring Provider Active Start: February 02, 2025 End: February 02, 2025 Team Status: Inactive Member Role/Relationship Status Dates No Primary Care Physician Primary care physician Activ e Start: February 04, 2025 End: February 05, 2025 Dr. Ramakrishna Corley DO Referring Provider Active Start: February 04, 2025 End: February 05, 2025 Lynnette Tapai CNM Attending physician Active Start: February 04, 2025 End: February 05, 2025 Team Status: Inactive Member Role/Relationship Status Dates No Primary Care Physician Primary care physician Activ e Start: February 13, 2025 End: February 13, 2025 Dr. Magda Aragon MD Attending physician Active Start: February 13, 2025 End: February 13, 2025 Dr. Magda Aragon MD Referring Provider Active Start: February 13, 2025 End: February 13, 2025 Team Status: Inactive Member Role/Relationship Status Dates No Primary Care Physician Primary care physician Activ e Start: February 23, 2025 End: February 23, 2025 Patsy March CNM Attending physician Active S tart: February 23, 2025 End: February 23, 2025 Patsy March CNM Referring Provider Active St art: February 23, 2025 End: February 23, 2025 Goals (unrecognized section and content) Goals may be documented in a n alternate sectionGoals may be documented in an alternate sectionGoals may be documented in an alternate sectionGoals may be documented in an alternate sectionGoals may be documented in an alternate sectionGoals may be documented in an alternate section INFORMATION SOURCE (unrecogn ized section and content) DATE CREATED AUTHOR 02/27/2025 [facility] DATE CREATED AUTHOR AUTHOR'S ORGANIZ ATION 03/09/2025 [facility] DATE CREATED AUTHOR AUTHOR'S ORGANIZ ATION 03/13/2025 [facility] FOR RECORDS PERTAINING TO PATIENTS WHO [...] BE BASED ON THE PRIMARY CLINICAL RECORDS. [employer] provides no warranty or guarantee of the accuracy or completeness of information in this document.
--- OUTSIDE RECORDS SUMMARY | 2025-03-13 16:43 | XMS RPT_ITS | CCD ---
Author Organization [facility] Care Team Providers Care Financial Service Rep Name Role Phone Unavailable Primary Care Provider [...] ALEXA Referring Unavailable ALAN, LESTER Attending Unavailable SADNY, LYNNETTE Attending Unavailable ALAN, LESTER Attending Unavailable [...] EC tablet Indications: Visit for screening ([facility]) Take 1 tablet by mouth once daily. [...] Episodic Early or threatened labor (18 sources) [place] Zaragoza contractions; Translations: [False labor, unspecified] Onset: [...] (Vag fld) Not detected Normal Not detected [facility] Comment on above: Order Comment: Speci men Type: SWABOrdering Facility: [facility] Address: [address] [place] [address] Performed By: #### B VAMP, CVTV ####[facility] LABCLIA [id number] [place] [address] [place] PARVEEN/TRICHOMONAS NAATon 1 C. glabrata RNA JOHN+probe Ql (Vag fld) Not detected Normal Not detected [facility] Comment on above: Order Comment: Speci men Type: SWABOrdering Facility: [facility] Address: [address] [place] [address] Performed By: #### B VAMP, CVTV ####[facility] LABCLIA [id number] [place] [address] [place] Parveen sp DNA JOHN+probe Ql (Vag fld) Not detected Normal Not detected [facility] Comment on above: Order Comment: Speci men Type: SWABOrdering Facility: [facility] Address: [address] [place] [address] Result Comment: The Parveen species group target includes C. albicans, C. tropicalis, C. parapsilosis, and C. dubliniensis. Performed By: #### B VAMP, CVTV ####[facility] LABCLIA [id number] [address] [place] T. vaginalis DNA JOHN+probe Ql (Unsp spec) Not detected Normal Not detected [facility] Comment on above: Order Comment: Speci men Type: SWABOrdering Facility: [facility] Address: [address] [place] [address] Performed By: #### B VAMP, CVTV ####[facility] LABCLIA [id number] [place] [address] [place] CBC panel Auto (Bld)on 03-11 Erythrocyte distribution width (RBC) [Ratio] 13.2 % Normal 11.5-15.0 [facility] Comment on above: Order Comment: Speci men Type: BLOOD SPECIMENOrdering Facility: [facility] Address: [address] [place] [address] Performed By: #### 5 8410-2 ####[facility] [id number] [place] [address] [place] Hematocrit (Bld) [Volume fraction] 32.7 % Low 36.0-46.0 [facility] Comment on above: Order Comment: Speci men Type: BLOOD SPECIMENOrdering Facility: [facility] Address: [address] [place] [address] Performed By: #### 5 8410-2 ####[facility]ITAL[facility] [id number] [place] [address] [place] Hemoglobin (Bld) [Mass/Vol] 11.7 g/dL Normal 11.5-15.5 [facility] Comment on above: Order Comment: Speci men Type: BLOOD SPECIMENOrdering Facility: [facility] Address: [address] [place] [address] Performed By: #### 5 8410-2 ####[facility] JANNETTECANDIAHERNANDEZ [id number] [address] STATES [facility] MCH (RBC) [Entitic mass] 31.7 pg Normal 26.0-34.0 [facility] Comment on above: Order Comment: Speci men Type: BLOOD SPECIMENOrdering Facility: [facility] Address: [address] [place] [address] Performed By: #### 5 8410-2 ####[facility] [id number] [address] [place] MCHC (RBC) [Mass/Vol] 35.8 g/dL Normal 30.5-36.0 [facility] Comment on above: Order Comment: Speci men Type: BLOOD SPECIMENOrdering Facility: [facility] Address: [address] [place] [address] Performed By: #### 5 8410-2 ####[facility] [id number] [address] [place] MCV (RBC) [Entitic vol] 88.6 fL Normal 80.0-100.0 [facility] Comment on above: Order Comment: Speci men Type: BLOOD SPECIMENOrdering Facility: [facility] Address: [address] [place] [address] Performed By: #### 5 8410-2 ####[facility] [id number] [place] [address] [place] Nucleated RBC (Bld) [#/Vol] 10*3/uL Normal <0.01 [facility] Comment on above: Order Comment: Speci men Type: BLOOD SPECIMENOrdering Facility: [facility] Address: [address] [place] [address] Performed By: #### 5 8410-2 ####[facility] JANNETTEWNCLIA [id number] [place] [address] [place] Platelet mean volume (Bld) [Entitic vol] 9.5 fL Normal 9.0-12.7 [facility] Comment on above: Order Comment: Speci men Type: BLOOD SPECIMENOrdering Facility: [facility] Address: [address] [place] [address] Performed By: #### 5 8410-2 ####[facility] [id number] [place] [address] [place] Platelets (Bld) [#/Vol] 244 10*3/uL Normal 150-400 [facility] Comment on above: Order Comment: Speci men Type: BLOOD SPECIMENOrdering Facility: [facility] Address: [address] [place] [address] Performed By: #### 5 8410-2 ####[facility] [id number] [place] [address] [place] RBC (Bld) [#/Vol] 3.69 10*6/uL Low 3.90-5.20 [facility] Comment on above: Order Comment: Speci men Type: BLOOD SPECIMENOrdering Facility: [facility] Address: [address] [place] [address] Performed By: #### 5 8410-2 ####[facility] [id number] [place] [address] [place] WBC (Bld) [#/Vol] 11.16 10*3/uL High 3.70-11.00 [facility] Comment on above: Order Comment: Speci men Type: BLOOD SPECIMENOrdering Facility: [facility] Address: [address] [place] [address] Performed By: #### 5 8410-2 ####[facility] [id number] [place] [address] [place] GESTATIONAL GLUCOSE SCREEN, 1-HOUR, 50 GRAM, NON-FASTINGon 03-11-2025 Glucose [Mass/Vol] 152 mg/dL High 74-134 [facility] Comment on above: Order Comment: Speci men Type: BLOOD SPECIMENOrdering Facility: [facility] Address: [address] [place] [address] Result Comment: [facility] Congress of Obstetricians and Gynecologists (Hinojosa/Niko) guidelines state a gestational diabetes mellitus positive screen is made, in women not previously diagnosed with overt diabetes, when the 1 hr plasma glucose level is equal to or above 140 mg/dL. The [facility] [employer] and [facility] recommends a 135 mg/dL cutoff. Performed By: #### G LTGST ####[facility] [id number] [place] [address] [place] MYCOPLASMA GENITALIUM NAATon 03-11-2025 M. genitalium DNA JOHN+probe Ql (U) Not detected Normal Not detected [facility] Comment on above: Order Comment: Speci men Type: URINE SPECIMENOrdering Facility: [facility] Address: [address] [place] [address] Performed By: #### M YGAMP ####[facility] LABCLIA [id number] [place] [address] [place] Reagin and Treponema pallidu m IgG and IgM [Interp]on 03-11-2025 T. pallidum IgG+IgM IA Ql (S) Non-Reactive Normal Nonreactive [facility] Comment on above: Order Comment: Speci men Type: BLOOD SPECIMENOrdering Facility: [facility] Address: [address] [place] [address] Performed By: #### 7 3752-8 ####[facility] LABCLIA [id number] [place] [address] [place] Reagin+T pallidum IgG+IgM Se rPl-Impon 03-11-2025 Reagin and Treponema pallidum IgG and IgM [Interp] Cannot exclude recent Treponemal infection if specimen collected within 7-10 days after appearance of suspect lesions or 2-3 weeks after an exposure. Clinical correlation is required. Normal [facility] Comment on above: Order Comment: Speci men Type: BLOOD SPECIMENOrdering Facility: [facility] Address: [address] [place] [address] Performed By: #### 7 3752-8 ####[facility] LABCLIA [id number] [address] TYPE + SCREEN PRENATALon ABO O Normal [facility] Comment on above: Order Comment: Speci men Type: BLOOD SPECIMENOrdering Facility: [facility] Address: [address] [place] [address] Performed By: #### T SPN ####[facility] LABCLIA [id number] [address] Rh Nom (Bld) Negative Normal [facility] Comment on above: Order Comment: Speci men Type: BLOOD SPECIMENOrdering Facility: [facility] Address: [address] [place] [address] Performed By: #### T SPN ####[facility] LABCLIA [id number] [address] TYPE AND SCREEN EXPIRATION 03/14/2025 23:59 Normal [facility] Comment on above: Order Comment: Speci men Type: BLOOD SPECIMENOrdering Facility: [facility] Address: [address] [place] [address] Performed By: #### T SPN ####[facility] LABCLIA [id number] [place] [id number] [facility] OF [place] CNOVon 03-08-2025 CNOV Office Visit (AGCARDHWG) PAL NICHOLAS ([id number]) 3 F Date Time Provider Department 03/08/25 [...] provider ID). REFERRING PHYSICIAN: Lynnette Am[address] Rd [facility] [address] CHIEF COMPLAINT: Abnormal EKG HISTORY OF PRESENT [...] of illicit drugs. 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 She has 1 other sibling. She is here in the office with her mom. Paternal grandfather suddenly at age 49. She stated the diagnosis of Myles-Danlos was made by a tannery worker and network systems engineer. She is not sure if she had [...] S1/S2; no murmurs, gallops, or rubs Abdomen: Paxinos distended. Nontender. EXTREMETIES: No peripheral edema. Grade [...] Noteon 0 02-23-2025 OB Triage Physician Note [facility] Medical Records Department [address] [place] [address] OB Triage Physician Note 02/23/252054 MR#: [id number] Acct: [id number] Name: SARAHY KAURDYLONDALE RACHEL Rep #: [id number] : 2005 19 From: Lester Phillips MD PCP: Care Physician,No Primary Status:REG CLI Y Location: OT472-1 HPI - General General Date of Service: 02/23/25 HPI Narrative PAL SARAHY KAUR, is a 19 F who presents back pain, side pain and some contractions. Maternal Data Information AMARI Calculator Estimated Delivery Date Method Current WG Current Estimate 05/31/25 Manual 26w 1d [facility] Medical History (Updated 02/23/25 @ 20:56 by [...] Phillips MD; No Primary Care Physician Signed [facility] 02-22-2025 [facility] Telephone (GYURWP) SARAHY KAURPAL ([id number]) 3 F Date Time Provider Department 02/22/25 KARI JOHNSTON GYURWP During your visit today, we recorded the following information about you: Deep Owen RN 02/22/2025 11:09 AM Signed Called patient in regards to catheter supplies per request of Kari Nguyen MD P [facility] Clinical Pool; [facility] Schedulers Pool I placed an order [...] Encounter Status:Closed by DEEP OWEN on 02/22/25 [facility] Yajaira 02-18-2025 CNOV Office Visit (DOUGLAS) PAL NICHOLAS ([id number]) 3 F Date Time Provider Department 02/18/25 11:30 AM KARI JOHNSTON During your visit today, we recorded the following information about you: Weight 80.8 kg Kari Johnston MD 02/18/2025 1:16 PM Signed Female Pelvic Medicine AND Reconstructive Surgery Consult Recording using Edictive software for draft documentation of the visit was discussed with the patient/authorized customer field representative; all questions welcomed and answered. Patient/authorized customer field representative agreed to proceed CHIEF COMPLAINT: Pal [...] Hematological: Nega (more content not included)... Normal [facility] SARAHY PAL KAUR ([id number]) 3 F Date Time Provider Department 02/16/25 [...] Encounter Status:Closed by CLEM SAAVEDRA on 02/16/25 [facility] 02-15-2025 [facility] Telephone (AKPOB) PAL NICHOLAS ([id number]) 3 F Date Time Provider Department 02/15/25 [...] on above: Performed By: #### 6 30-4, 67889-9 #### [facility] CLIA [id number] [place] [id number] [facility] OB Triage Physician Noteon 0 02-13-2025 OB Triage Physician Note [facility] Medical Records Department [address] [facility] [place] [id number] OB Triage Physician Note 02/13/25 2321 MR#: [id number] Acct: [id number] Name: PAL NICHOLAS Rep #: [id number] : 2005 19 From: Magda Aragon MD PCP: Care Physician,No Primary Status:DEP CLI Y Location: [facility] - General General Date of Service: 02/13/25 Chief Complaint: pain HPI Narrative PAL NICHOLAS, is a 19 F who presents with bladder pain and unable to void. Was in Triage at [facility] early and had straight cath for 200 [...] MD; No Primary Care Physician Signed Normal [facility] Urinalysis complete panel (U )on 02-13-2025 Bilirubin Ql (U) Negative Normal Negative [facility] Comment on above: Order Comment: Speci men Type: URINE SPECIMEN [facility] Address: [address] [place] [address] Performed By: #### 6 30-4, 95026-7 #### [facility] CLIA [id number] 1 [place] [address] [place] Clarity (Unsp spec) Clear Normal Clear [facility] Comment on above: Order Comment: Speci men Type: URINE SPECIMEN [facility] Address: [address] [place] [address] Performed By: #### 6 30-4, 35227-2 #### [facility] CLIA [id number] [address] [place] Color (U) Light Yellow Normal yellow [facility] Comment on above: Order Comment: Speci men Type: URINE SPECIMEN [facility] Address: [address] [place] [address] Performed By: #### 6 30-4, 55582-3 #### [facility] CLIA [id number] [address] OF [place] Epithelial cells LM.HPF (Urine sed) [#/Area] Few Abnormal None Seen [facility] Comment on above: Order Comment: Speci men Type: URINE SPECIMEN [facility] Address: [address] [place] [address] Performed By: #### 6 30-4, 62817-9 #### [facility] CLIA [id number] [address] [place] Glucose Test strip (U) [Mass/Vol] Negative Normal Trace, Negative [facility] Comment on above: Order Comment: Speci men Type: URINE SPECIMEN [facility] Address: [address] [place] [address] Performed By: #### 6 30-4, 75300-5 #### [facility] CLIA [id number] [address] [place] [address] [place] Hemoglobin Ql (U) Negative Normal Negative, Trace [facility] Comment on above: Order Comment: Speci men Type: URINE SPECIMEN [facility] Address: [address] [place] [address] Performed By: #### 6 30-4, 15460-4 #### [facility] CLIA [id number] [address] [place] Ketones Ql (U) Negative Normal Negative, Trace [facility] Comment on above: Order Comment: Speci men Type: URINE SPECIMEN [facility] Address: [address] [place] [address] Performed By: #### 6 30-4, 55653-5 #### [facility] CLIA [id number] [address] Leukocyte esterase Test strip Ql (U) 75 Maryann/uL Abnormal Negative, 25 Maryann/uL [facility] Comment on above: Order Comment: Speci men Type: URINE SPECIMEN [facility] Address: [address] [place] [address] Performed By: #### 6 30-4, 67085-0 #### [facility] CLIA [id number] [address] Nitrite Ql (U) Negative Normal Negative [facility] Comment on above: Order Comment: Speci men Type: URINE SPECIMEN [facility] Address: [address] [place] [address] Performed By: #### 6 30-4, 67417-1 #### [facility] CLIA [id number] [address] pH (U) 7.0 [pH] Normal 5.0-8.0 [facility] Comment on above: Order Comment: Speci men Type: URINE SPECIMEN [facility] Address: [address] [place] [address] Performed By: #### 6 30-4, 90442-5 #### [facility] CLIA [id number] [address] Protein (U) [Mass/Vol] Negative Normal Trace , Negative [facility] Comment on above: Order Comment: Speci men Type: URINE SPECIMEN [facility] Address: [address] [place] [address] Performed By: #### 6 30-4, 13302-6 #### [facility] CLIA [id number] [address] OF [place] RBC LM.HPF (Urine sed) [#/Area] 0-3 /HPF Normal 0-3 /HPF [facility] Comment on above: Order Comment: Speci men Type: URINE SPECIMEN [facility] Address: [address] [place] [address] Performed By: #### 6 30-4, 28111-9 #### [facility] CLIA [id number] [address] Specific gravity (U) [Rel density] 1.019 Normal 1.005-1.030 [facility] Comment on above: Order Comment: Speci men Type: URINE SPECIMEN [facility] Address: [address] [place] [address] Performed By: #### 6 30-4, 43327-2 #### [facility] CLIA [id number] [address] Urobilinogen Ql (U) Normal Normal Normal [facility] Comment on above: Order Comment: Speci men Type: URINE SPECIMEN [facility] Address: [address] [place] [address] Performed By: #### 6 30-4, 91928-0 #### [facility] CLIA [id number] [address] STATES [facility] WBC LM.HPF (Urine sed) [#/Area] 11-25 /HPF Abnormal 0-5 /HPF [facility] Comment on above: Order Comment: Speci men Type: URINE SPECIMEN [facility] Address: [address] [place] [address] Performed By: #### 6 30-4, 09859-0 #### [facility] CLIA [id number] [address] [place] BACTERIAL VAGINOSIS NAATon 0 02-08-2025 Interpretation and review of laboratory results Normal [facility] Lactobacillus crispatus+gasseri+muniz ii + Gardnerella vaginalis + Atopobium vaginae rRNA JOHN+probe Ql (Vag fld) Not detected Not detected [facility] Lactobacillus crispatus+gasseri+muniz ii + Gardnerella vaginalis + Atopobium vaginae rRNA JOHN+probe Ql (Vag fld) Not detected Normal Not detected [facility] Comment on above: Order Comment: Speci men Type: SWABOrdering Facility: [facility] Address: [address] [place] [address] Performed By: #### B VAMP, CVTV ####[facility] LABCLIA [id number] [place] [address] [place] Bacteria Ur Culton Bacteria identified Cx Nom (U) CULTURE, URINE: No growth (<1,000 CFU/ml) Normal [facility] Comment on above: Performed By: #### 6 30-4 ####[facility] LABCLIA [id number] [place] [address] [place] PARVEEN/TRICHOMONAS NAATon 0 02-08-2025 C. glabrata RNA JOHN+probe Ql (Vag fld) Not detected Not detected [facility] Parveen sp DNA JOHN+probe Ql (Vag fld) Not detected Not detected [facility] Comment on above: The Parveen species group target includes C. albicans, C. tropicalis, C. parapsilosis, and C. dubliniensis. Interpretation and review of laboratory results Normal [facility] T. vaginalis DNA JOHN+probe Ql (Unsp spec) Not detected Not detected [facility] C. glabrata RNA JOHN+probe Ql (Vag fld) Not detected Normal Not detected [facility] Comment on above: Order Comment: Speci men Type: SWABOrdering Facility: [facility] Address: [address] [place] [address] Performed By: #### B VAMP, CVTV ####[facility] LABCLIA [id number] [place] [address] [place] Parveen sp DNA JONH+probe Ql (Vag fld) Not detected Normal Not detected [facility] Comment on above: Order Comment: Speci men Type: SWABOrdering Facility: [facility] Address: [address] [place] [address] Result Comment: The Parveen species group target includes C. albicans, C. tropicalis, C. parapsilosis, and C. dubliniensis. Performed By: #### B VAMP, CVTV ####[facility] LABCLIA [id number] [address] OF [place] T. vaginalis DNA JOHN+probe Ql (Unsp spec) Not detected Normal Not detected [facility] Comment on above: Order Comment: Speci men Type: SWABOrdering Facility: [facility] Address: [address] [place] [address] [place] [address] Performed By: #### B VAMP, CVTV ####[facility] LABCLIA [id number] [address] [place] UA DIP, URINE (POC)on 2024 BILIRUBIN UA (POCT) Negative Negative [facility] CLARITY UA (POCT) Clear [facility] COLOR UA (POCT) Yellow [facility] GLUCOSE UA (POCT) Negative Negative mg/dL [facility] Hemoglobin Ql (U) Negative Negative [facility] KETONE UA (POCT) Negative Negative mg/dL [facility] LEUKOCYTES UA (POCT) Negative Negative [facility] NITRITE UA (POCT) Negative Negative [facility] PH UA (POCT) 7.0 4.5 - 8.0 [facility] Protein Ql (U) Negative Negative mg/dL [facility] SPECIFIC GRAVITY UA (POCT) 1.010 1.005 - 1.030 [facility] UROBILINOGEN UA (POCT) 0.2 Normal E.U./d L [facility] Location:[facility], [address] , [place], [address] [facility] POINT OF CARE [facility] Urine Cultureon 02-06-2025 UR Culture exhibits no growth. Normal [facility] Comment on above: Performed By: #### M 100.0429 #### [facility] [address] [place], [place], [id number] CNPMissy 02-05-2025 CNPN Telephone (OBCloud DynamicsW) PAL NICHOLAS Radha ([id number]) 3 F Date Time Provider Department 02/05/25 [...] of fluid. Patient advised to go to [facility] for evaluation. [facility] notified. Jocelyne Black RN Allergies As of [...] Status:Closed by JOCELYNE BLACK on 02/05/25 Normal [facility] OB Triage Physician Noteon 0 02-05-2025 OB Triage Physician Note [facility] Medical Records Department [address] [place] [id number] OB Triage Physician Note 02/05/25 1742 MR#: [id number] Acct: [id number] Name: PAL NICHOLAS Rep #: [id number] : 2005 19 From: Lynnette Tapia CNM PCP: Care Physician,No Primary Status:REG CLI Y Location: [place] [address] HPI - General General Chief Complaint: ctx's [...] Suprapubic pain: (3) History of UTI: (4) [place] Zaragoza' contraction: COMMENT: cervix closed (5) 23 weeks gestation of : PLAN: Plan Positive movements Increase fluids CE - closed/ unchanged Continue taking Macrobid 100 mg Po BID- did not take dose today D/C home with follow up in office 02/05/25 4942 Date Lynnette Tapia CNM Cosigner Signature (if applicable): Date _ CC: HUMPHREY Tapia; No Primary Care Physician Signed Normal [facility] Bilirubin Test strip Ql (U)O rdered By: Ramakrishna Corley on 02-04-2025 Bilirubin Ql (U) Negative Negative [facility] Ketones Test strip Ql (U)Ord ered By: Ramakrishna Corley on 02-04-2025 Ketones Ql (U) Negative Negative [facility] Nitrite Test strip Ql (U)Ord ered By: Ramakrishna Corley on 02-04-2025 Nitrite Ql (U) Negative Negative [facility] OB Triage Physician Noteon 0 02-04-2025 OB Triage Physician Note [facility] Medical Records Department [address] [place] [address] OB Triage Physician Note 02/04/25 2925 MR#: [id number] Acct: [id number] Name: PAL NICHOALS Rep #: [id number] : 2005 19 From: Ramakrishna Corley DO PCP: Care Physician,No Primary Status:REG CLI Y Location: [address] Date of Service: 02/04/25 Chief Complaint: ctx's HPI Narrative PAL NICHOLAS, is a 19 F who presents ctx's. She states she has had contractions and abdominal pain for 1-2 weeks. Went to [facility] 2 weeks ago for this [...] vb or lof. No constipation or diarrhea. [facility] Medical History (Updated 02/05/25 @ 00:00 by [...] (1) 23 weeks gestation of : (2) [place] Zaragoza' contraction: COMMENT: cervix closed PLAN: Cervix [...] DO; No Primary Care Physician Signed Normal [facility] Protein Test strip Ql (U)Ord ered By: Ramakrishna Corley on 02-04-2025 Protein Ql (U) Negative Negative [facility] Urinalysis, Routine (Dipstic k)on 02-04-2025 BILIRUBIN URINE Negative Normal Negative [facility] Comment on above: Order Comment: CLEAN CATCH Performed By: #### L 400 #### [facility] Laboratory [address] [place], [place], [id number] Clarity (U) Clear Normal Clear [facility] Comment on above: Order Comment: CLEAN CATCH Performed By: #### L 400 #### [facility] Laboratory [address] [place], [place], [id number] Color (U) Yellow Normal Yellow [facility] Comment on above: Order Comment: CLEAN CATCH Performed By: #### L 400 #### [facility] Laboratory [address] [place], [address] GLUCOSE, UR Normal Normal Normal [facility] Comment on above: Order Comment: CLEAN CATCH Performed By: #### L 400.2010 #### [facility] Laboratory [address] [place], [address] KETONE UR Negative Normal Negative [facility] Comment on above: Order Comment: CLEAN CATCH Performed By: #### L 400.2010 #### [facility] Laboratory [address] [place], [address] LEUK ESTERASE 25 /ul Abnormal Negative [facility] Comment on above: Order Comment: CLEAN CATCH Performed By: #### L 400.2010 #### [facility] Laboratory [address] [place], [address] Nitrite Ql (U) Negative Normal Negative [facility] Comment on above: Order Comment: CLEAN CATCH Performed By: #### L 400.2010 #### [facility] Laboratory [address] [place], [address] OCCULT BLOOD-UR Negative Normal Negative [facility] Comment on above: Order Comment: CLEAN CATCH Performed By: #### L 400.2010 #### [facility] Laboratory [address] [place], [address] pH UR 6.5 Normal 5.0 - 8.0 [facility] Comment on above: Order Comment: CLEAN CATCH Performed By: #### L 400.2010 #### [facility] Laboratory [address] [place], [address] PROT DIPSTX Negative Normal Negative [facility] Comment on above: Order Comment: CLEAN CATCH Performed By: #### L 400.2010 #### [facility] Laboratory [address] [place], [address] SP.GR. DIPSTX 1.015 Normal 1.002-1.030 [facility] Comment on above: Order Comment: CLEAN CATCH Performed By: #### L 400.2010 #### [facility] Laboratory [address] [place], [place], [address] UROBILI Normal Normal Normal [facility] Comment on above: Order Comment: CLEAN CATCH Performed By: #### L 400.2010 #### [facility] Laboratory [address] [place], [place], [address] Urine Cultureon 02-04-2025 URC Culture exhibits no growth. Normal [facility] Comment on above: Performed By: #### M 100.2200 #### [facility] Laboratory [address] [place], [place], [address] Urine clarityOrdered By: Benjamin Corley on 02-04-2025 Clarity (U) Clear Clear [facility] Urine color determinationOrd ered By: Ramakrishna Corley on 02-04-2025 Color (U) Yellow Yellow [facility] Urine cultureOrdered By: Benjamin Corley on 02-04-2025 Bacteria identified Cx Nom (U) Culture exhibits no growth. [facility] Urine glucose detectionOrder ed By: Ramakrishna Corley on 02-04-2025 Glucose Ql (U) Normal mg/dl Normal [facility] Urine leukocyte esterase det ection by dipstickOrdered By: Ramakrishna Corley on 02-04-2025 Leukocyte esterase Test strip Ql (U) 25 /ul High Negative [facility] Urine pHOrdered By: Ramakrishna mcpherson on 02-04-2025 pH (U) 6.5 [pH] 5.0 - 8.0 [facility] Urine specific gravity measu rementOrdered By: Ramakrishna Corley on 02-04-2025 Specific gravity (U) [Rel density] 1.015 1.002-1.030 [facility] Urine urobilinogen measureme ntOrdered By: Ramakrishna Corley on 02-04-2025 Urobilinogen Ql (U) Normal mg/dl Normal [facility] Bilirubin Test strip Ql (U)O rdered By: Magda Aragon on 02-02-2025 Bilirubin Ql (U) Negative Negative [facility] Ketones Test strip Ql (U)Ord ered By: Magda Aragon on 02-02-2025 Ketones Ql (U) Negative Negative [facility] Microscopic analysis of urin e for red blood cells (RBC)Ordered By: Magda Aragon on 02-02-2025 Microscopic analysis of urine for red blood cells (RBC) 0 SEEN /hpf 0-5 [facility] Mucus LM Ql (Urine sed)Order ed By: Magda Aragon on 02-02-2025 Mucus Ql (Urine sed) 0 SEEN /hpf [facility] Nitrite Test strip Ql (U)Ord ered By: Magda Aragon on 02-02-2025 Nitrite Ql (U) Negative Negative [facility] OB Triage Physician Noteon 0 02-02-2025 OB Triage Physician Note [facility] Medical Records Department [address] [place] [address] OB Triage Physician Note 02/02/25 2336 MR#: [id number] Acct: [id number] Name: PAL NICHOLAS Rep #: [id number] : 2005 19 From: Magda Aragon MD PCP: Care Physician,No Primary Status:REG CLI Y Location: [address] HPI - General General Date of Admission: 02/02/25 Date of Service: 02/02/25 Chief Complaint: cramping HPI Narrative PAL NICHOLAS, is a 19 F who presents cramping. No bleeding. Some movement. Was seen in office today with normal discharge. Maternal Data Information Final AMARI: 05/31/25 Gestational age: 22 PFSH [facility] Medical History (Updated 02/02/25 @ 23:38 [...] Angel Zaragoza' contraction: COMMENT: cervix closed 02/02/25 1298 Date Magda Aragon MD Cosigner Signature (if applicable): Date _ CC: Dr. Magda Aragon MD; No Primary Care Physician Signed Normal [facility] Protein Test strip Ql (U)Ord ered By: Magda Aragon on 02-02-2025 Protein Ql (U) 15 mg/dl High Negative [facility] Squamous epithelial cells de tection in urine sediment by light microscopyOrdered By: Magda Aragon on 02-02-2025 Epithelial cells.squamous LM Ql (Urine sed) 0-5 SEEN /hpf 5-10 [facility] UA DIP, URINE (POC)on 2024 BILIRUBIN UA (POCT) Negative Negative [facility] CLARITY UA (POCT) Clear [facility] COLOR UA (POCT) Yellow [facility] GLUCOSE UA (POCT) Negative Negative mg/dL [facility] Hemoglobin Ql (U) Negative Negative [facility] KETONE UA (POCT) Negative Negative mg/dL [facility] LEUKOCYTES UA (POCT) Negative Negative [facility] NITRITE UA (POCT) Negative Negative [facility] PH UA (POCT) 7.0 4.5 - 8.0 [facility] Protein Ql (U) Negative Negative mg/dL [facility] SPECIFIC GRAVITY UA (POCT) 1.010 1.005 - 1.030 [facility] UROBILINOGEN UA (POCT) 0.2 Normal E.U./d L [facility] Location:[facility], [address], [place], [place], [id number] [place] [address] POINT OF CARE [facility] Urinalysis, Completeon 02-02 EPI,SQUAMOUS 0-5 SEEN Normal 5-10 [facility] Comment on above: Order Comment: CLEAN CATCH Performed By: #### L 400.0001 #### [facility] Laboratory [address] [place], [address] BACTERIA 0 SEEN Normal None Seen [facility] Comment on above: Order Comment: CLEAN CATCH Performed By: #### L 400.0001 #### [facility] Laboratory [address] [place], [address] Mucus Ql (Urine sed) [address] [facility] Comment on above: Order Comment: CLEAN CATCH Performed By: #### L 400.0001 #### [facility] Laboratory [address] [place], [address] RBC 0 SEEN Normal 0-5 [facility] Comment on above: Order Comment: CLEAN CATCH Performed By: #### L 400.0001 #### [facility] Laboratory [address] [place], [address] WBC 0 SEEN Normal 0-5 [facility] Comment on above: Order Comment: CLEAN CATCH Performed By: #### L 400.0001 #### [facility] Laboratory [address] [place], [address] BACTERIA Normal None Seen [facility] Comment on above: Order Comment: MINOO MCGILL TO SPECIFY Result Comment: Danita ellmanjula via OM: Order edited - Discontinuing original order Performed By: #### L 400.0001 #### [facility] Laboratory [address] [place], [address] BILIRUBIN URINE Normal Negative [facility] Comment on above: Order Comment: MINOO MCGILL TO SPECIFY Result Comment: Danita elled via OM: Order edited - Discontinuing original order Performed By: #### L 400.0001 #### [facility] Laboratory [address] [place], [address] Clarity (U) Normal Clear [facility] Comment on above: Order Comment: COLLE CTOR TO SPECIFY Result Comment: Canc elled via OM: Order edited - Discontinuing original order Performed By: #### L 400.0001 #### [facility] Laboratory [address] [place], [address] Color (U) Normal Yellow [facility] Comment on above: Order Comment: COLLE CTOR TO SPECIFY Result Comment: Canc elled via OM: Order edited - Discontinuing original order Performed By: #### L 400.0001 #### [facility] Laboratory [address] [place], [address] EPI,SQUAMOUS Normal 5-10 [facility] Comment on above: Order Comment: COLLE CTOR TO SPECIFY Result Comment: Canc elled via OM: Order edited - Discontinuing original order Performed By: #### L 400.0001 #### [facility] Laboratory [address] [place], [address] GLUCOSE, UR Normal Normal [facility] Comment on above: Order Comment: COLLE CTOR TO SPECIFY Result Comment: Canc elled via OM: Order edited - Discontinuing original order Performed By: #### L 400.0001 #### [facility] Laboratory [address] [place], [address] KETONE UR Normal Negative [facility] Comment on above: Order Comment: COLLE CTOR TO SPECIFY Result Comment: Canc elled via OM: Order edited - Discontinuing original order Performed By: #### L 400.0001 #### [facility] Laboratory [address] [place], [address] LEUK ESTERASE Normal Negative [facility] Comment on above: Order Comment: COLLE CTOR TO SPECIFY Result Comment: Canc elled via OM: Order edited - Discontinuing original order Performed By: #### L 400.0001 #### [facility] Laboratory [address] [place], [address] Mucus Ql (Urine sed) Normal [facility] Comment on above: Order Comment: COLLE CTOR TO SPECIFY Result Comment: Canc elled via OM: Order edited - Discontinuing original order Performed By: #### L 400.0001 #### [facility] [address] [place], [address] Nitrite Ql (U) Normal Negative [facility] Comment on above: Order Comment: COLLE CTOR TO SPECIFY Result Comment: Canc elled via OM: Order edited - Discontinuing original order Performed By: #### L 400.0001 #### [facility] Laboratory [address] [place], [address] OCCULT BLOOD-UR Normal Negative [facility] Comment on above: Order Comment: COLLE CTOR TO SPECIFY Result Comment: Canc elled via OM: Order edited - Discontinuing original order Performed By: #### L 400.0001 #### [facility] Laboratory [address] [place], [address] pH UR Normal 5.0 - 8.0 [facility] Comment on above: Order Comment: COLLE CTOR TO SPECIFY Result Comment: Canc elled via OM: Order edited - Discontinuing original order Performed By: #### L 400.0001 #### [facility] Laboratory [address] [place], [address] PROT DIPSTX Normal Negative [facility] Comment on above: Order Comment: COLLE CTOR TO SPECIFY Result Comment: Canc elled via OM: Order edited - Discontinuing original order Performed By: #### L 400.0001 #### [facility] Laboratory [address] [place], [address] RBC Normal 0-5 [facility] Comment on above: Order Comment: COLLE CTOR TO SPECIFY Result Comment: Canc elled via OM: Order edited - Discontinuing original order Performed By: #### L 400.0001 #### [facility] Laboratory [address] [place], [address] SP.GR. DIPSTX Normal 1.002-1.030 [facility] Comment on above: Order Comment: COLLE CTOR TO SPECIFY Result Comment: Canc elled via OM: Order edited - Discontinuing original order Performed By: #### L 400.0001 #### [facility] Laboratory [address] [place], [address] UR Preservative Normal [facility] Comment on above: Order Comment: COLLE CTOR TO SPECIFY Result Comment: Canc elled via OM: Order edited - Discontinuing original order Performed By: #### L 400.0001 #### [facility] Laboratory [address] [place], [address] UROBILI Normal Normal [facility] Comment on above: Order Comment: COLLE CTOR TO SPECIFY Result Comment: Canc elled via OM: Order edited - Discontinuing original order Performed By: #### L 400.0001 #### [facility] Laboratory [address] [place], [address] WBC Normal 0-5 [facility] Comment on above: Order Comment: COLLE CTOR TO SPECIFY Result Comment: Canc elled via OM: Order edited - Discontinuing original order Performed By: #### L 400.0001 #### [facility] Laboratory [address] [place], [address] Urine clarityOrdered By: Jazmin Aragon on 02-02-2025 Clarity (U) Clear Clear [facility] Urine color determinationOrd ered By: Magda Aragon on 02-02-2025 Color (U) Straw Yellow [facility] Urine cultureOrdered By: Jazmin Aragon on 02-02-2025 Bacteria identified Cx Nom (U) Culture exhibits no growth. [facility] Urine glucose detectionOrder ed By: Magda Aragon on 02-02-2025 Glucose Ql (U) Normal mg/dl Normal [facility] Urine leukocyte esterase det ection by dipstickOrdered By: Magda Aragon on 02-02-2025 Leukocyte esterase Test strip Ql (U) Negative Negative [facility] Urine pHOrdered By: Magda Aragon on 02-02-2025 pH (U) 7.0 [pH] 5.0 - 8.0 [facility] Urine sediment bacteria coun t by microscopy (number/high power field)Ordered By: Magda Aragon on 02-02-2025 Bacteria LM.HPF (Urine sed) [#/Area] 0 /[HPF] None Seen [facility] Urine specific gravity measu rementOrdered By: Magda Aragon on 02-02-2025 Specific gravity (U) [Rel density] 1.010 1.002-1.030 [facility] Urine urobilinogen measureme ntOrdered By: Magda Aragon on 02-02-2025 Urobilinogen Ql (U) Normal mg/dl Normal [facility] White blood cell countOrdere d By: Magda Aragon on 02-02-2025 White blood cell count 0 SEEN /hpf 0-5 [facility] BACTERIAL VAGINOSIS NAATon 0 01-20-2025 Interpretation and review of laboratory results Normal [facility] Lactobacillus crispatus+gasseri+muniz ii + Gardnerella vaginalis + Atopobium vaginae rRNA JOHN+probe Ql (Vag fld) Not detected Not detected [facility] Lactobacillus crispatus+gasseri+muniz ii + Gardnerella vaginalis + Atopobium vaginae rRNA JOHN+probe Ql (Vag fld) Not detected Normal Not detected [facility] Comment on above: Order Comment: Speci men Type: SWABOrdering Facility: [facility] Address: [address] [place] [address] Performed By: #### B MARCY CONDONTV ####[facility] LABCLIA [id number] [place] [address] [place] PARVEEN/TRICHOMONAS NAATon 0 01-20-2025 C. glabrata RNA JOHN+probe Ql (Vag fld) Not detected Not detected [facility] Parveen sp DNA JOHN+probe Ql (Vag fld) Not detected Not detected [facility] Comment on above: The Parveen species group target includes C. albicans, C. tropicalis, C. parapsilosis, and C. dubliniensis. Interpretation and review of laboratory results Normal [facility] T. vaginalis DNA JOHN+probe Ql (Unsp spec) Not detected Not detected [facility] C. glabrata RNA JOHN+probe Ql (Vag fld) Not detected Normal Not detected [facility] Comment on above: Order Comment: Speci men Type: SWABOrdering Facility: [facility] Address: [address] [place] [address] Performed By: #### B VAMP, CVTV ####[facility] LABCLIA [id number] [address] Parveen sp DNA JOHN+probe Ql (Vag fld) Not detected Normal Not detected [facility] Comment on above: Order Comment: Speci men Type: SWABOrdering Facility: [facility] Address: [address] [place] [address] Result Comment: The Parveen species group target includes C. albicans, C. tropicalis, C. parapsilosis, and C. dubliniensis. Performed By: #### B VAMP, CVTV ####[facility] LABCLIA [id number] [place] [address] [place] T. vaginalis DNA JOHN+probe Ql (Unsp spec) Not detected Normal Not detected [facility] Comment on above: Order Comment: Speci men Type: SWABOrdering Facility: [facility] Address: [address] [place] [address] Performed By: #### B VAMP, CVTV ####[facility] LABCLIA [id number] [place] [address] [place] [id number] 01-19-2025 [id number] HNO ID: [id number] Author: ARMIDA SMITH RN Service: ? Author Type: Registered Nurse Type: [id number] Filed: 01/19/2025 03:42 Note Text: Precautions given, patient verbalized understanding. Instructed to call her OB doctor for follow up. Normal [facility] Bacteria Ur Culton 08-26-202 5 Bacteria identified Cx Nom (U) CULTURE, URINE: No growth (<1,000 CFU/ml) Normal [facility] Comment on above: Performed By: #### H STNT #### [facility] CLIA [id number] [address] [place] [address] [place] [address] ABD/PEL WO IVCONon 2024 CT ABD/PEL WO IVCON * * *Final Report* * * DATE OF EXAM: Jan 19 2025 12:50AM [facility] 0531 - CT ABD/PEL WO IVCON / [...] noncontrast CT. Recommend correlation with obstetric ultrasound. Food Aide: HIEU Transcribe Date/Time: Jan 19 2025 2:36A [...] Destini thorpe Type: BLOOD SPECIMEN [facility]ing Facility[facility] Address: [address] [place] [address] Performed By: #### 5 8410-2 #### [facility] CLIA [id number] [address] [place] Hematocrit (Bld) [Volume fraction] 34.6 % Low 36.0-46.0 [facility] Comment on above: Order Comment: Destini thorpe Type: BLOOD SPECIMEN Ordering Facility: [facility] Address: [address] [place] [address] Performed By: #### 5 8410-2 #### [facility] CLIA [id number] [address] [place] Hemoglobin (Bld) [Mass/Vol] 11.5 g/dL Normal 11.5-15.5 [facility] Comment on above: Order Comment: Speci men Type: BLOOD SPECIMEN Ordering Facility: [facility] Address: [address] [place] [address] Performed By: #### 5 8410-2 #### [facility] CLIA [id number] [address] [place] MCH (RBC) [Entitic mass] 31.0 pg Normal 26.0-34.0 [facility] Comment on above: Order Comment: Shannani men Type: BLOOD SPECIMEN Ordering Facility: [facility] Address: [address] [place] [address] Performed By: #### 5 8410-2 #### [facility] CLIA [id number] [address] MCHC (RBC) [Mass/Vol] 33.2 g/dL Normal 30.5-36.0 [facility] Comment on above: Order Comment: Speci men Type: BLOOD SPECIMEN Ordering Facility: [facility] Address: [address] [place] [address] Performed By: #### 5 8410-2 #### [facility] CLIA [id number] [address] MCV (RBC) [Entitic vol] 93.3 fL Normal 80.0-100.0 [facility] Comment on above: Order Comment: Speci men Type: BLOOD SPECIMEN Ordering Facility: [facility] Address: [address] [place] [address] Performed By: #### 5 8410-2 #### [facility] CLIA [id number] [address] [facility] Nucleated RBC (Bld) [#/Vol] 10*3/uL Normal <0.01 [facility] Comment on above: Order Comment: Speci men Type: BLOOD SPECIMEN Ordering Facility: [facility] Address: [address] [place] [address] Performed By: #### 5 8410-2 #### [facility] CLIA [id number] [address] [place] Platelet mean volume (Bld) [Entitic vol] 9.2 fL Normal 9.0-12.7 [facility] Comment on above: Order Comment: Speci men Type: BLOOD SPECIMEN Ordering Facility: [facility] Address: [address] [place] [address] Performed By: #### 5 8410-2 #### [facility] CLIA [id number] [address] [place] Platelets (Bld) [#/Vol] 242 10*3/uL Normal 150-400 [facility] Comment on above: Order Comment: Speci men Type: BLOOD SPECIMEN Ordering Facility: [facility] Address: [address] [place] [address] Performed By: #### 5 8410-2 #### [facility] CLIA [id number] [address] RBC (Bld) [#/Vol] 3.71 10*6/uL Low 3.90-5.20 [facility] Comment on above: Order Comment: Speci men Type: BLOOD SPECIMEN Ordering Facility: [facility] Address: [address] [place] [address] Performed By: #### 5 8410-2 #### [facility] CLIA [id number] [address] WBC (Bld) [#/Vol] 10.04 10*3/uL Normal 3.70-11.00 [facility] Comment on above: Order Comment: Speci men Type: BLOOD SPECIMEN Ordering Facility: [facility] Address: [address] [place] [address] Performed By: #### 5 8410-2 #### [facility] CLIA [id number] [address] CNPMissy [facility]-18-2025 [facility] PAL NICHOLAS ([id number]) 3 F Date Time Provider Department 01/18/25 LYNNETTE TAPIA OBLUKE During your visit today, we recorded the following information about you: Isaura Pereira RN 01/18/2025 8:46 AM Signed Breast pump order received from [facility]. To to sign. LEVON Hutson Lindsey, RN [...] Status:Closed by JOCELYNE BLACK on 01/20/25 Normal [facility] metabolic 2000 panelon 01-18-2025 Albumin [Mass/Vol] 3.8 g/dL Low 3.9-4.9 [facility] Comment on above: Order Comment: Speci men Type: BLOOD SPECIMEN Ordering Facility: [facility] Address: [address] [place] [address] Performed By: #### H STNT #### [facility] CLIA [id number] [address] ALP [Catalytic activity/Vol] 57 U/L Normal 34-123 [facility] Comment on above: Order Comment: Speci men Type: BLOOD SPECIMEN Ordering Facility: [facility] Address: [address] [place] [address] Performed By: #### H STNT #### [facility] CLIA [id number] [address] ALT With P-5'-P [Catalytic activity/Vol] 11 U/L Normal 7-38 [facility] Comment on above: Order Comment: Speci men Type: BLOOD SPECIMEN Ordering Facility: [facility] Address: [address] [place] [address] Performed By: #### H STNT #### [facility] CLIA [id number] [address] Anion gap [Moles/Vol] 12 mmol/L Normal 8-15 [facility] Comment on above: Order Comment: Speci men Type: BLOOD SPECIMEN Ordering Facility: [facility] Address: [address] [place] [address] Performed By: #### H STNT #### [facility] CLIA [id number] [address] [place] With P-5'-P [Catalytic activity/Vol] 16 U/L Normal 13-35 [facility] Comment on above: Order Comment: Speci men Type: BLOOD SPECIMEN Ordering Facility: [facility] Address: [address] [place] [address] Performed By: #### H STNT #### [facility] CLIA [id number] [address] [place] Bilirubin [Mass/Vol] 0.3 mg/dL Normal 0.2-1.3 [facility] Comment on above: Order Comment: Speci men Type: BLOOD SPECIMEN Ordering Facility: [facility] Address: [address] [place] [address] Performed By: #### H STNT #### [facility] CLIA [id number] 1 [place] [address] [place] Calcium [Mass/Vol] 8.6 mg/dL Normal 8.5-10.2 [facility] Comment on above: Order Comment: Speci men Type: BLOOD SPECIMEN Ordering Facility: [facility] Address: [address] [place] [address] Performed By: #### H STNT #### [facility] CLIA [id number] 1 [place] [address] [place] Chloride [Moles/Vol] 103 mmol/L Normal 98-107 [facility] Comment on above: Order Comment: Speci men Type: BLOOD SPECIMEN Ordering Facility: [facility] Address: [address] [place] [address] Performed By: #### H STNT #### [facility] CLIA [id number] 1 [place] [address] [place] CO2 [Moles/Vol] 22 mmol/L Normal 22-30 [facility] Comment on above: Order Comment: Speci men Type: BLOOD SPECIMEN Ordering Facility: [facility] Address: [address] [place] [address] Performed By: #### H STNT #### [facility] CLIA [id number] 1 [place] [address] [place] Creatinine [Mass/Vol] 0.50 mg/dL Low 0.58-0.96 [facility] Comment on above: Order Comment: Shannanelsa thorpe Type: BLOOD SPECIMEN Ordering Facility: [facility] Address: [address] [place] [address] Performed By: #### H STNT #### [facility] CLIA [id number] 1 [place] [address] [place] eGFRcr SerPlBld CKD-EPI 2020 138 mL/min/1.73m??? Normal >=60 [facility] Comment on above: Order Comment: Destini thorpe Type: BLOOD SPECIMEN Ordering Facility: [facility] Address: [address] [place] [address] Result Comment: Shilpa mated Glomerular Filtration Rate [...] GFR. Performed By: #### H STNT #### [facility] CLIA [id number] [address] [place] [address] [place] Glucose [Mass/Vol] 63 mg/dL Low 74-99 [facility] Comment on above: Order Comment: Shannanelsa thorpe Type: BLOOD SPECIMEN Ordering Facility: [facility] Address: [address] [place] [address] Result Comment: The [place] Diabetes Association (ADA) provides guidance for cutoff [...] Standards of Medical Care in Diabetes 2016, [place] [employer]. Diabetes Care. 2016.39(Suppl 1). Performed By: #### H STNT #### [facility] CLIA [id number] [address] Potassium [Moles/Vol] 3.8 mmol/L Normal 3.7-5.1 [facility] Comment on above: Order Comment: Speci men Type: BLOOD SPECIMEN Ordering Facility: [facility] Address: [address] [place] [address] Performed By: #### H STNT #### [facility] CLIA [id number] [address] Protein [Mass/Vol] 6.5 g/dL Normal 6.3-8.0 [facility] Comment on above: Order Comment: Speci men Type: BLOOD SPECIMEN Ordering Facility: [facility] Address: [address] [place] [address] Performed By: #### H STNT #### [facility] CLIA [id number] [address] Sodium [Moles/Vol] 137 mmol/L Normal 136-144 [facility] Comment on above: Order Comment: Speci men Type: BLOOD SPECIMEN Ordering Facility: [facility] Address: [address] [place] [address] Performed By: #### H STNT #### [facility] CLIA [id number] [address] Urea nitrogen [Mass/Vol] 4 mg/dL Low 7-21 [facility] Comment on above: Order Comment: Speci men Type: BLOOD SPECIMEN Ordering Facility: [facility] Address: [address] [place] [address] Performed By: #### H STNT #### [facility] CLIA [id number] [address] [place]en 01-14-2025 RUBÉN Telephone (OBGYWM) PAL NICHOLAS ([id number]) 3 F Date Time Provider Department 01/14/25 [...] affecting (HCC) *01/06/2025 19 weeks gestation of ([facility]) [Z3A.19] 01/06/2025 01/13/2025 Pelvic pressure in (HCC) [O26.899, R1*01/06/2025 Prescriptions ordered this encounter Disp Refills Start End NITROFURANTOIN MONOHYDRATE AND MACROCR* 14 c* 0 01/14/2025 01/21/2025 Route: PO Sig: Take 1 capsule by mouth two times a day for 7 days. Encounter Status:Closed by RAMAKRISHNA CORLEY on 01/14/25 Normal [facility] Examination level ultrasound on 01-12-2025 Indication Detailed [...] 12 oz EFW by: Hadlock (HC-AC-FL) Extended Skiver Blockers 6.6 mm CM 6.6 mm 90% Nicolaides [...] normal LVOT view: normal 3-vessel view: normal 6-[id number]-xxuitxx view: normal Heart / Thorax Situs: situs [...] Read By: Tiffanie Barrios M.D. MATERNAL MEDICINE [facility] TSH W/REFLEX FT4on 5 TSH Qn 1.510 m[IU]/L Normal 0.510-4.300 [facility] Comment on above: Order Comment: Speci men Type: BLOOD SPECIMENOrdering Facility: [facility] Address: [address] [place] [address] Result Comment: If t he patient is , TSH reference range varies by gestational period: First Trimester (weeks 9-12): 0.180-2.990 mIU/L Second Trimester: 0.110-3.980 mIU/L Third Trimester: 0.480-4.710 mIU/L Garry Rizvi et al. A Practical Approach for the Verifications and Determination of Site- and Trimester-Specific Reference Intervals for Thyroid Function tests in . Thyroid, 2019:29:3:412-420. Keagan Dimas, et al. 2017 Guidelines of the [place] Thyroid Association for the Diagnosis and Management of Thyroid Disease during and the . Thyroid, 2017:27:3:315-389. Performed By: #### [facility] ####[facility] [id number] [place] [address] [place] BACTERIAL VAGINOSIS NAATon 0 01-11-2025 Lactobacillus crispatus+gasseri+muniz ii + Gardnerella vaginalis + Atopobium vaginae rRNA JOHN+probe Ql (Vag fld) Not detected Normal Not detected [facility] Comment on above: Order Comment: Speci men Type: SWABOrdering Facility: [facility] Address: [address] [place] [address] Performed By: #### B VAMP, CVTV ####[facility] [id number] [place] [address] [place] Bacteria Ur Culton 5 Bacteria identified Cx Nom (U) ORGANISM ID: 1 <10,000 CFU/ml Enterococcus faecalis Insignificant colony count. No further workup. Cephalosporins, clindamycin, and TMP-SMX are not effective for the treatment of enterococcal infections. Normal [facility] Comment on above: Performed By: #### 6 30-4 ####[facility] [id number] [place] [address] [place] PARVEEN/TRICHOMONAS NAATon 0 01-11-2025 C. glabrata RNA JOHN+probe Ql (Vag fld) Not detected Normal Not detected [facility] Comment on above: Order Comment: Speci men Type: SWABOrdering Facility: [facility] Address: [address] [place] [address] Performed By: #### B VAMP, CVTV ####[facility] [id number] [place] [address] [place] Parveen sp DNA JOHN+probe Ql (Vag fld) Not detected Normal Not detected [facility] Comment on above: Order Comment: Speci men Type: SWABOrdering Facility: [facility] Address: [address] [place] [address] Result Comment: The Parveen species group target includes C. albicans, C. tropicalis, C. parapsilosis, and C. dubliniensis. Performed By: #### B VAMP, CVTV ####[facility] [id number] [place] [address] [place] T. vaginalis DNA JOHN+probe Ql (Unsp spec) Not detected Normal Not detected [facility] Comment on above: Order Comment: Speci men Type: SWABOrdering Facility: [facility] Address: [address] [place] [address] Performed By: #### AAYUSH OROZCO ####[facility] [id number] [facility] [id number] [place] [address] [place] Examination level ultrasound on 01-11-2025 Radiology Study observation (narrative) [facility] UA DIP, URINE (POC)on 2024 BILIRUBIN UA (POCT) Negative Negative [facility] CLARITY UA (POCT) Clear [facility] COLOR UA (POCT) Yellow [facility] GLUCOSE UA (POCT) Negative Negative mg/dL [facility] Hemoglobin Ql (U) Negative Negative [facility] Interpretation and review of laboratory results Abnormal [facility] KETONE UA (POCT) Negative Negative mg/dL [facility] LEUKOCYTES UA (POCT) Trace Abnormal Negative [facility] NITRITE UA (POCT) Negative Negative [facility] PH UA (POCT) 6.0 4.5 - 8.0 [facility] Protein Ql (U) Negative Negative mg/dL [facility] SPECIFIC GRAVITY UA (POCT) 1.020 1.005 - 1.030 [facility] UROBILINOGEN UA (POCT) 0.2 Normal E.U./d L [facility] Location:[facility], [address], [place], [place], [id number] [place] [address] POINT OF CARE [facility] [place] 01-07-2025 NELDAN Telephone (NANNETTEPRAD) PAL NICHOLAS ([id number]) 3 F Date Time Provider Department 01/07/25 EJ RODRIGUEZ During your visit today, we recorded the following information about you: Ej Rodriguez MD 01/07/2025 12:41 PM Signed Patient was seen by resident but not by any attending 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 labor and delivery she is [...] Speci men Type: BLOOD SPECIMEN Ordering Facility: [facility] Address: [address] [place] [address] Performed By: #### H STNT, 62008-7 #### [facility] CLIA [id number] 1 [place] [address] [place] Calcium [Mass/Vol] 8.6 mg/dL Normal 8.5-10.2 [facility] Comment on above: Order Comment: Speci men Type: BLOOD SPECIMEN Ordering Facility: [facility] Address: [address] [place] [address] Performed By: #### H STNT, 18581-8 #### [facility] CLIA [id number] 1 [place] [address] [place] Chloride [Moles/Vol] 104 mmol/L Normal 98-107 [facility] Comment on above: Order Comment: Speci men Type: BLOOD SPECIMEN Ordering Facility: [facility] Address: [address] [place] [address] Performed By: #### H STNT, 86707-5 #### [facility] CLIA [id number] 1 [place] [address] [place] CO2 [Moles/Vol] 20 mmol/L Low 22-30 [facility] Comment on above: Order Comment: Speci men Type: BLOOD SPECIMEN Ordering Facility: [facility] Address: [address] [place] [address] Performed By: #### H STNT, 30489-3 #### [facility] CLIA [id number] 1 [place] [address] [place] Creatinine [Mass/Vol] 0.47 mg/dL Low 0.58-0.96 [facility] Comment on above: Order Comment: Destini thorpe Type: BLOOD SPECIMEN Ordering Facility: [facility] Address: [address] [place] [address] Performed By: #### H STNT, 10162-6 #### [facility] CLIA [id number] [address] OF [place] eGFRcr SerPlBld CKD-EPI 2020 140 mL/min/1.73m??? Normal >=60 [facility] Comment on above: Order Comment: Destini thorpe Type: BLOOD SPECIMEN Ordering Facility: [facility] Address: [address] [place] [address] Result Comment: Shilpa mated Glomerular Filtration Rate [...] actual GFR. Performed By: #### H STNT, 24849-0 #### [facility] CLIA [id number] [address] [place] Glucose [Mass/Vol] 78 mg/dL Normal 74-99 [facility] Comment on above: Order Comment: Destini thorpe Type: BLOOD SPECIMEN Ordering Facility: [facility] Address: [address] [place] [address] Result Comment: The [place] Diabetes Association (ADA) provides guidance for cutoff [...] Standards of Medical Care in Diabetes 2016, [place] [employer]. Diabetes Care. 2016.39(Suppl 1). Performed By: #### H STNT, 83889-3 #### [facility] CLIA [id number] [address] [place] Potassium [Moles/Vol] 3.7 mmol/L Normal 3.7-5.1 [facility] Comment on above: Order Comment: Speci men Type: BLOOD SPECIMEN Ordering Facility: [facility] Address: [address] [place] [address] Performed By: #### H STNT, 04450-2 #### [facility] CLIA [id number] [address] STATES OF [facility] Sodium [Moles/Vol] 136 mmol/L Normal 136-144 [facility] Comment on above: Order Comment: Speci men Type: BLOOD SPECIMEN Ordering Facility: [facility] Address: [address] [place] [address] Performed By: #### H STNT, 16415-4 #### [facility] CLIA [id number] [address] STATES OF [facility] Urea nitrogen [Mass/Vol] 8 mg/dL Normal 7-21 [facility] Comment on above: Order Comment: Speci men Type: BLOOD SPECIMEN Ordering Facility: [facility] Address: [address] [place] [address] Performed By: #### H STNT, 21514-0 #### [facility] CLIA [id number] [address] [place] C. trachomatis+N. gonorrhoea e DNA JOHN+probe Ql (Unsp spec)on 01-06-2025 C. trachomatis rRNA JOHN+probe Ql (Unsp spec) Not detected Normal Not detected [facility] Comment on above: Order Comment: Speci men Type: SWAB Ordering Facility: [facility] Address: [address] [place] [address] Performed By: #### T RVAMP, 31049-9 #### [facility] CLIA [id number] [address] N. gonorrhoeae rRNA JOHN+probe Ql (Unsp spec) Not detected Normal Not detected [facility] Comment on above: Order Comment: Speci men Type: SWAB Ordering Facility: [facility] Address: [address] [place] [address] Performed By: #### T RVAMP, 82962-2 #### [facility] CLIA [id number] [address] OF [facility] CBC panel Auto (Bld)on 01-06 Erythrocyte distribution width (RBC) [Ratio] 13.7 % Normal 11.5-15.0 [facility] Comment on above: Order Comment: Speci men Type: BLOOD SPECIMEN Ordering Facility: [facility] Address: [address] [place] [address] Performed By: #### H STNT, 88321-7 #### [facility] CLIA [id number] [address] Hematocrit (Bld) [Volume fraction] 36.1 % Normal 36.0-46.0 [facility] Comment on above: Order Comment: Speci men Type: BLOOD SPECIMEN Ordering Facility: [facility] Address: [address] [place] [address] Performed By: #### H STNT, 83503-2 #### [facility] CLIA [id number] [address] OF [facility] Hemoglobin (Bld) [Mass/Vol] 12.3 g/dL Normal 11.5-15.5 [facility] Comment on above: Order Comment: Speci men Type: BLOOD SPECIMEN Ordering Facility: [facility] Address: [address] [place] [address] Performed By: #### H STNT, 68602-2 #### [facility] CLIA [id number] [address] MCH (RBC) [Entitic mass] 30.8 pg Normal 26.0-34.0 [facility] Comment on above: Order Comment: Speci men Type: BLOOD SPECIMEN Ordering Facility: [facility] Address: [address] [place] [address] Performed By: #### H STNT, 89616-6 #### [facility] CLIA [id number] [address] MCHC (RBC) [Mass/Vol] 34.1 g/dL Normal 30.5-36.0 [facility] Comment on above: Order Comment: Speci men Type: BLOOD SPECIMEN Ordering Facility: [facility] Address: [address] [place] [address] Performed By: #### H STNT, 13344-3 #### [facility] CLIA [id number] [address] MCV (RBC) [Entitic vol] 90.3 fL Normal 80.0-100.0 [facility] Comment on above: Order Comment: Speci men Type: BLOOD SPECIMEN Ordering Facility: [facility] Address: [address] [place] [address] Performed By: #### H STNT, 18306-9 #### [facility] CLIA [id number] [address] Nucleated RBC (Bld) [#/Vol] 10*3/uL Normal <0.01 [facility] Comment on above: Order Comment: Speci men Type: BLOOD SPECIMEN Ordering Facility: [facility] Address: [address] [place] [address] Performed By: #### H STNT, 05390-3 #### [facility] CLIA [id number] [address] Platelet mean volume (Bld) [Entitic vol] 9.3 fL Normal 9.0-12.7 [facility] Comment on above: Order Comment: Speci men Type: BLOOD SPECIMEN Ordering Facility: [facility] Address: [address] [place] [address] Performed By: #### H STNT, 84405-2 #### [facility] CLIA [id number] [address] OF [facility] Platelets (Bld) [#/Vol] 248 10*3/uL Normal 150-400 [facility] Comment on above: Order Comment: Speci men Type: BLOOD SPECIMEN Ordering Facility: [facility] Address: [address] [place] [address] Performed By: #### H STNT, 82812-5 #### [facility] CLIA [id number] [address] OF [facility] RBC (Bld) [#/Vol] 4.00 10*6/uL Normal 3.90-5.20 [facility] Comment on above: Order Comment: Speci men Type: BLOOD SPECIMEN Ordering Facility: [facility] Address: [address] [place] [address] Performed By: #### H STNT, 15613-3 #### [facility] CLIA [id number] [address] WBC (Bld) [#/Vol] 10.26 10*3/uL Normal 3.70-11.00 [facility] Comment on above: Order Comment: Speci men Type: BLOOD SPECIMEN Ordering Facility: [facility] Address: [address] [place] [address] Performed By: #### H STNT, 20252-2 #### [facility] CLIA [id number] [address] OF [facility] Landen 01-06-2025 CNPN Telephone (LORENAGYWM) PAL NICHOLAS ([id number]) 3 F Date Time Provider Department 01/06/25 [...] 01/05 telephone notes. Patient was seen at [facility] OB ED triage on 01/04. The diarrhea has resolved. Advised that she go back to [facility] as the office is closing. Patient asked for an appointment tomorrow instead because of transportation. No available appointments. Advised that she should be evaluated today in case she is having labor. Voiced understanding and believes she could have a friend take her. LEVON Driver Rebecca L, MD 01/07/2025 10:00 AM Signed If not improved work in any cancellations, go to [facility] for eval or schedule tomorrow if openings. MD Honey Begum Lindsey, RN 01/07/2025 10:36 AM Signed Patient was seen at [facility] last night. She has OB [...] Encounter Status:Closed by KARINA ADDISON on 01/07/25 [facility] CONSULTon 01-06-2025 CONSULT HNO ID: [id number] Author: EJ RODRIGUEZ MD Service: Nephrology Author [...] not on any medications. She moved from [place] and previously was on beta-luana however stopped [...] PAST MEDICAL HISTORY Diagnosis Date Asthma ([facility]) 2012 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HCC) POTS (postural orthostatic [...] QTC Calculation(Bazett) : 401 ms Calculated P [employer] : -18 degrees Calculated R [employer] : 148 degrees Calculated T [employer] : -28 degrees NORMAL SINUS RHYTHM RIGHT AXIS DEVIATION LOW VOLTAGE QRS CANNOT RULE OUT INFERIOR INFARCT , AGE UNDETERMINED T WAVE ABNORMALITY, CONSIDER ANTERIOR ISCHEMIA ABNORMAL ECG WHEN COMPARED WITH ECG OF 05-Jan-2025 00:20, QRS AXIS SHIFTED RIGHT Confirmed by MD NAPIER VINAY ([id number]) on 01/07/2025 11:39:00 AM NAME : PAL NICHOLAS PID : [id number] : 2005 Gender : Female Race : ORD : [id number] Procedure Date : Jan 06 2025 20:38:59 Edit Date : Jan 07 2025 11:39:11 Diagnosis: NORMAL SINUS RHYTHM RIGHT AXIS DEVIATION LOW VOLTAGE QRS CANNOT RULE OUT INFERIOR INFARCT , AGE UNDETERMINED T WAVE ABNORMALITY, CONSIDER ANTERIOR ISCHEMIA ABNORMAL ECG WHEN COMPARED WITH ECG OF 05-Jan-2025 00:20, QRS AXIS SHIFTED RIGHT Confirmed by MD NAPIER VINAY ([id number]) on 01/07/2025 11:39:00 AM Test Reason : [...] Speci men Type: BLOOD SPECIMEN Ordering Facility: [facility] Address: [address] [place] [address] Performed By: #### H STNT #### [facility] CLIA [id number] [address] Troponin T.cardiac High sensitivity method [Mass/Vol] <6 Normal <12 [facility] Comment on above: Order Comment: Speci men Type: BLOOD SPECIMEN Ordering Facility: [facility] Address: [address] [place] [address] Performed By: #### H STNT, 91291-0 #### [facility] CLIA [id number] [address] OF [facility] TRICHOMONAS VAGINALIS NAATon 01-06-2025 T. vaginalis DNA JOHN+probe Ql (Unsp spec) Not detected Normal Not detected [facility] Comment on above: Order Comment: Speci men Type: SWAB Ordering Facility: [facility] Address: [address] [place] [address] Performed By: #### T RVAMP, 09937-9 #### [facility] CLIA [id number] [address] OF [facility] CBC panel Auto (Bld)on 01-05 Erythrocyte distribution width (RBC) [Ratio] 14.0 % Normal 11.5-15.0 [facility] Comment on above: Order Comment: Speci men Type: BLOOD SPECIMEN Ordering Facility: [facility] Address: [address] [place] [address] Performed By: #### 5 8410-2 #### [facility] CLIA [id number] [address] [place] Hematocrit (Bld) [Volume fraction] 33.6 % Low 36.0-46.0 [facility] Comment on above: Order Comment: Speci men Type: BLOOD SPECIMEN Ordering Facility: [facility] Address: [address] [place] [address] Performed By: #### 5 8410-2 #### [facility] CLIA [id number] [address] [place] Hemoglobin (Bld) [Mass/Vol] 11.4 g/dL Low 11.5-15.5 [facility] Comment on above: Order Comment: Speci men Type: BLOOD SPECIMEN Ordering Facility: [facility] Address: [address] [place] [address] Performed By: #### 5 8410-2 #### [facility] CLIA [id number] [address] MCH (RBC) [Entitic mass] 30.6 pg Normal 26.0-34.0 [facility] Comment on above: Order Comment: Speci men Type: BLOOD SPECIMEN Ordering Facility: [facility] Address: [address] [place] [address] Performed By: #### 5 8410-2 #### [facility] CLIA [id number] [address] MCHC (RBC) [Mass/Vol] 33.9 g/dL Normal 30.5-36.0 [facility] Comment on above: Order Comment: Speci men Type: BLOOD SPECIMEN Ordering Facility: [facility] Address: [address] [place] [address] Performed By: #### 5 8410-2 #### [facility] CLIA [id number] [address] MCV (RBC) [Entitic vol] 90.1 fL Normal 80.0-100.0 [facility] Comment on above: Order Comment: Speci men Type: BLOOD SPECIMEN Ordering Facility: [facility] Address: [address] [place] [address] Performed By: #### 5 8410-2 #### [facility] CLIA [id number] [address] Nucleated RBC (Bld) [#/Vol] 10*3/uL Normal <0.01 [facility] Comment on above: Order Comment: Speci men Type: BLOOD SPECIMEN Ordering Facility: [facility] Address: [address] [place] [address] Performed By: #### 5 8410-2 #### [facility] CLIA [id number] [address] Platelet mean volume (Bld) [Entitic vol] 9.3 fL Normal 9.0-12.7 [facility] Comment on above: Order Comment: Destini thorpe Type: BLOOD SPECIMEN Ordering Facility: [facility] Address: [address] [place] [address] Performed By: #### 5 8410-2 #### [facility] CLIA [id number] [address] Platelets (Bld) [#/Vol] 223 10*3/uL Normal 150-400 [facility] Comment on above: Order Comment: Destini thorpe Type: BLOOD SPECIMEN Ordering Facility: [facility] Address: [address] [place] [address] Performed By: #### 5 8410-2 #### [facility] CLIA [id number] [address] RBC (Bld) [#/Vol] 3.73 10*6/uL Low 3.90-5.20 [facility] Comment on above: Order Comment: Destini thorpe Type: BLOOD SPECIMEN Ordering Facility: [facility] Address: [address] [place] [address] Performed By: #### 5 8410-2 #### [facility] CLIA [id number] [address] WBC (Bld) [#/Vol] 10.50 10*3/uL Normal 3.70-11.00 [facility] Comment on above: Order Comment: Destini thorpe Type: BLOOD SPECIMEN Ordering Facility: [facility] Address: [address] [place] [address] Performed By: #### 5 8410-2 #### [facility] CLIA [id number] [address] Landen 01-05-2025 NELDAN Telephone (PHIL) PAL NICHOLAS ([id number]) 3 F Date Time Provider Department 01/[facility]/25 [facility] PAL NICHOLAS ([id number]) 3 F Date Time Provider Department 01/05/25 LESTER PHILLIPS OBGYW During your visit today, we recorded the following information about you: Magda Hagen, LEVON 01/05/2025 11:40 AM Signed 19w1d See 01/04 phone note. Patient went to [facility] ED last night. [facility] notes available to review. Patient was prescribed [...] feel completely confident in the diagnosis from [facility]. Please advise. LEVNO Gardner Karmon, MD 01/05/2025 12:09 PM Signed Patient was seen by Azael Kulkarni while at [facility]. I recommend supportive care with hydration, potassium [...] Status:Closed by JOCELYNE BLACK on 01/05/25 Normal [facility] metabolic 2000 panelon 01-05-2025 Albumin [Mass/Vol] 3.5 g/dL Low 3.9-4.9 [facility] Comment on above: Order Comment: Speci men Type: BLOOD SPECIMEN Ordering Facility: [facility] Address: [address] [place] [address] Performed By: #### 2 4323-8 #### [facility] CLIA [id number] [address] OF [facility] ALP [Catalytic activity/Vol] 46 U/L Normal 34-123 [facility] Comment on above: Order Comment: Speci men Type: BLOOD SPECIMEN Ordering Facility: [facility] Address: [address] [place] [address] Performed By: #### 2 4323-8 #### [facility] CLIA [id number] [address] [place] OF [facility] ALT With P-5'-P [Catalytic activity/Vol] 13 U/L Normal 7-38 [facility] Comment on above: Order Comment: Speci men Type: BLOOD SPECIMEN Ordering Facility: [facility] Address: [address] [place] [address] Performed By: #### 2 4323-8 #### [facility] CLIA [id number] [address] OF [facility] Anion gap [Moles/Vol] 12 mmol/L Normal 8-15 [facility] Comment on above: Order Comment: Speci men Type: BLOOD SPECIMEN Ordering Facility: [facility] Address: [address] [place] [address] Performed By: #### 2 4323-8 #### [facility] CLIA [id number] [address] [place] AST With P-5'-P [Catalytic activity/Vol] 16 U/L Normal 13-35 [facility] Comment on above: Order Comment: Speci men Type: BLOOD SPECIMEN Ordering Facility: [facility] Address: [address] [place] [address] Performed By: #### 2 4323-8 #### [facility] CLIA [id number] [address] [place] Bilirubin [Mass/Vol] 0.3 mg/dL Normal 0.2-1.3 [facility] Comment on above: Order Comment: Speci men Type: BLOOD SPECIMEN Ordering Facility: [facility] Address: [address] [place] [address] Performed By: #### 2 4323-8 #### [facility] CLIA [id number] [address] [place] Calcium [Mass/Vol] 9.1 mg/dL Normal 8.5-10.2 [facility] Comment on above: Order Comment: Speci men Type: BLOOD SPECIMEN Ordering Facility: [facility] Address: [address] [place] [address] Performed By: #### 2 4323-8 #### [facility] CLIA [id number] 1 [place] [address] [place] Chloride [Moles/Vol] 106 mmol/L Normal 98-107 [facility] Comment on above: Order Comment: Speci men Type: BLOOD SPECIMEN Ordering Facility: [facility] Address: [address] [place] [address] Performed By: #### 2 4323-8 #### [facility] CLIA [id number] 1 [place] [address] [place] CO2 [Moles/Vol] 21 mmol/L Low 22-30 [facility] Comment on above: Order Comment: Destini thorpe Type: BLOOD SPECIMEN Ordering Facility: [facility] Address: [address] [place] [address] Performed By: #### 2 4323-8 #### [facility] CLIA [id number] [address] OF [facility] Creatinine [Mass/Vol] 0.51 mg/dL Low 0.58-0.96 [facility] Comment on above: Order Comment: Speci men Type: BLOOD SPECIMEN Ordering Facility: [facility] Address: [address] [place] [address] Performed By: #### 2 4323-8 #### [facility] CLIA [id number] [address] eGFRcr SerPlBld CKD-EPI 2020 137 mL/min/1.73m??? Normal >=60 [facility] Comment on above: Order Comment: Destini men Type: BLOOD SPECIMEN Ordering Facility: [facility] Address: [address] [place] [address] Result Comment: Shilpa mated Glomerular Filtration Rate [...] GFR. Performed By: #### 2 4323-8 #### [facility] CLIA [id number] [address] OF [facility] Glucose [Mass/Vol] 93 mg/dL Normal 74-99 [facility] Comment on above: Order Comment: Destini tashia Type: BLOOD SPECIMEN Ordering Facility: [facility] Address: [address] [place] [address] Result Comment: The [place] [employer] (ADA) provides guidance for cutoff [...] Standards of Medical Care in Diabetes 2016, [place] [employer]. Diabetes Care. 2016.39(Suppl 1). Performed By: #### 2 4323-8 #### [facility] CLIA [id number] [address] [place] Potassium [Moles/Vol] 3.4 mmol/L Low 3.7-5.1 [facility] Comment on above: Order Comment: Speci men Type: BLOOD SPECIMEN Ordering Facility: [facility] Address: [address] [place] [address] Performed By: #### 2 4323-8 #### [facility] CLIA [id number] 1 [place] [address] [place] Protein [Mass/Vol] 5.8 g/dL Low 6.3-8.0 [facility] Comment on above: Order Comment: Speci men Type: BLOOD SPECIMEN Ordering Facility: [facility] Address: [address] [place] [address] Performed By: #### 2 4323-8 #### [facility] CLIA [id number] [address] [place] Sodium [Moles/Vol] 139 mmol/L Normal 136-144 [facility] Comment on above: Order Comment: Speci men Type: BLOOD SPECIMEN Ordering Facility: [facility] Address: [address] [place] [address] Performed By: #### 2 4323-8 #### [facility] CLIA [id number] [address] [place] Urea nitrogen [Mass/Vol] 5 mg/dL Low 7-21 [facility] Comment on above: Order Comment: Speci men Type: BLOOD SPECIMEN Ordering Facility: [facility] Address: [address] [place] [id number] Performed By: #### 2 4323-8 #### [facility] [id number] [address] [place] OF [facility] ECG COMPLETEon 01-05-2025 ECG COMPLETE Ventricular Rate : 97 BPM Atrial Rate : 97 BPM P-R Interval : 128 ms QRS Duration : 78 ms Q-T Interval : 344 ms QTC Calculation(Bazett) : 436 ms Calculated P [employer] : 21 degrees Calculated R [employer] : 23 degrees Calculated T [employer] : -1 degrees NORMAL SINUS RHYTHM LOW VOLTAGE QRS BORDERLINE ECG NO PREVIOUS ECGS AVAILABLE Confirmed by MD NAPIER VINAY ([id number]) on 01/05/2025 12:13:29 PM NAME : PAL NICHOLAS PID : [id number] : 2005 Gender : Female Race : ORD : [id number] Procedure Date : Jan 05 2025 00:20:24 Edit Date : Jan 05 2025 12:13:36 Diagnosis: NORMAL SINUS RHYTHM LOW VOLTAGE QRS BORDERLINE ECG NO PREVIOUS ECGS AVAILABLE Confirmed by MD NAPIER VINAY ([id number]) on 01/05/2025 12:13:29 PM Test Reason : Dizziness Location : [address] : [place] [address] Overread By : MD NAPIER VINAY Edited By : MD NAPIER VINAY Referred By : , Acquired by : BEN GALVAN [facility] Landen 01-04-2025 CNPN Telephone (OBGYWM) PAL NICHOLAS ([id number]) 3 F Date Time Provider Department 01/04/25 [...] this is staying the same since at [facility] 12/22/24. Last few weeks, Pt states extremely watery discharge. Went to [facility] at that time d/t having sharp cervical pain AND was treated for BV. Feels hydrated/Has been drinking liquid IV. Does have some burning on urination AND was seen on 12/30/24 in office-UA completed and TRACE protein and TRACE leukocytes. Advised Pt that since pain has worsened as the day as gone on that it would be best to go to [facility] OB triage to be evaluated as no appts available in office at this time. Pt did state she'd feel more comfortable going there and that is essentially why she called as she wanted to discuss with a nurse. Pt states her ride will not be able to pick her up for another 30 minutes, but Pt is agreeable to go to [facility]. Dr. Aragon notified. Maite Peterson RN Allergies [...] Status:Closed by MAITE PETERSON on 01/21/25 Normal [facility] C[facility]N Telephone (OBGYWM) PAL NICHOLAS ([id number]) 3 F Date Time Provider Department 12/29/24 [...] Status:Closed by KARINA ADDISON on 12/29/24 Normal [facility] BACTERIAL VAGINOSIS NAATon 0 12-28-2024 Lactobacillus crispatus+gasseri+muniz ii + Gardnerella vaginalis + Atopobium vaginae rRNA JOHN+probe Ql (Vag fld) Not detected Normal Not detected [facility] Comment on above: Order Comment: Speci men Type: SWABOrdering Facility: [facility] Address: [address] [place] [address] Performed By: #### C VTV, BVAMP ####[facility] [id number] [place] [address] [place] PARVEEN/TRICHOMONAS NAATon 0 12-28-2024 C. glabrata RNA JOHN+probe Ql (Vag fld) Not detected Normal Not detected [facility] Comment on above: Order Comment: Speci men Type: SWABOrdering Facility: [facility] Address: [address] [place] [address] Performed By: #### C VTV, BVAMP ####[facility] [id number] [address] OF [facility] Parveen sp DNA JOHN+probe Ql (Vag fld) Not detected Normal Not detected [facility] Comment on above: Order Comment: Speci men Type: SWABOrdering Facility: [facility] Address: [address] [place] [address] Result Comment: The Parveen species group target includes C. albicans, C. tropicalis, C. parapsilosis, and C. dubliniensis. Performed By: #### C VTV, BVAMP ####[facility] [id number] [address] [place] T. vaginalis DNA JOHN+probe Ql (Unsp spec) Not detected Normal Not detected [facility] Comment on above: Order Comment: Speci men Type: SWABOrdering Facility: [facility] Address: [address] [place] [address] Performed By: #### C VTV, BVAMP ####[facility] [id number] [address] [place] 12-25-2024 [facility] Telephone (LC) PAL NICHOLAS ([id number]) 3 F Date Time Provider Department 12/25/24 LYNNETTE TAPIA During your visit today, we recorded the following information about you: Isaura Pereira RN 12/25/2024 12:14 PM [facility] [place] In chart prep binder for [...] Status:Closed by ISAURA PEREIRA on 12/25/24 Normal [facility] Urine Cultureon 12-24-2024 [facility] Mixed Gram Positive Organisms [place] Count 11,000-25,000 MIX[facility] Mixed contaminants. Submit a new specimen if indicated. Normal [facility] Comment on above: Performed By: #### M 100.2200 #### [facility] [address] [place], [place], [address] [facility] 12-22-2024 CNPN Telephone (OBGYWM) PAL NICHOLAS ([id number]) 3 F Date Time Provider Department 12/22/24 KARINA ADDISON OBGYWM During your visit today, we recorded the following information about you: Magda Hagen RN 12/22/2024 12:30 PM Signed New I OB seen at [facility] ER yesterday for pelvic pain. LMP 08/24/24. Approximately 17w1d. Patient calling because she still continues to have pelvic pain and pressure. Pain rate of 5-6. Taking Tylenol and using heat with no relief. States when she went to the ER her pain was 8-9. Denies LOF or VB. Per [facility] ER report: Discussed the case with on-call NUTTER UP for [facility] Dr. Aragon who states that she [...] of medical records from her previous OB. [facility] ER report to RR to review. LEVON Gardner Rebecca L, MD 12/22/2024 3:41 PM Signed Agree w/ keep scheduled appointment. Make sure we have US results/labs for NOB. If infection ruled out and no bleeding would recommend stretching, tylenol and warm baths prn. Can return to ED if urgent issue or go to ANGELA at [facility] or see if there is a sooner NOB elsewhere to get her established then f/u here. MD Hieu Begum Jennifer, RN 12/22/2024 4:23 PM Signed Patient notified. Magda Haegn RN Allergies As of Date: 12/22/2024 (Not on File) Date Reviewed: Never Reviewed Reason for Visit: OB Pelvic Pain [Other] Problem List As Of Date: 12/22/2024 (None) Encounter Status:Closed by MAGDA HAGEN on 12/22/24 Normal [facility] Absolute lymphocyte countOrd ered By: Aftab Mendoza on 12-21-2024 Lymphocytes Auto (Unsp spec) [#/Vol] 1.91 10*3/uL 0.83-4.51 [facility] Absolute neutrophil countOrd ered By: Aftab Mendoza on 12-21-2024 Neutrophils (Bld) [#/Vol] 7.6 10*3/uL 2.0-7.7 [facility] Anion gap in Serum or Plasma Ordered By: Aftab Mendoza on 12-21-2024 Anion gap [Moles/Vol] 13 mmol/L 5-15 [facility] Automated lymphocyte count a s percentage of total leukocytesOrdered By: Aftab Mendoza on 12-21-2024 Lymphocytes/100 WBC Auto (Unsp spec) 18.4 % Low 19-41 [facility] BUN/creatinine ratioOrdered By: Aftab Mendoza on 12-21-2024 Urea nitrogen/Creatinine [Mass ratio] 13.0 mg/mg 10-20 [facility] Basophil percentageOrdered B y: Aftab Mendoza on 12-21-2024 Basophils/100 WBC (Bld) 0.4 % 0-1 [facility] Bilirubin Test strip Ql (U)O rdered By: Aftab Mendoza on 12-21-2024 Bilirubin Ql (U) Negative Negative [facility] Bilirubin, totalOrdered By: Aftab Mendoza on 12-21-2024 Bilirubin [Mass/Vol] 0.26 mg/dL 0.00-1.30 [facility] CBC W/Diff, Automatedon 11-25 Absolute Lymph 1.91 X10 3/uL Normal 0.83-4.51 [facility] Comment on above: Performed By: #### L 100.0100 #### [facility] [address] [place], [address] Absolute Neut 7.6 X10 3/uL Normal 2.0-7.7 [facility] Comment on above: Performed By: #### L 100.0100 #### [facility] [address] [place], [address] Basophils/100 WBC (Bld) 0.4 % Normal 0-1 [facility] Comment on above: Performed By: #### L 100.0100 #### [facility] [address] [place], [address] Eosinophils/100 WBC (Bld) 1.4 % Normal 0-5 [facility] Comment on above: Performed By: #### L 100.0100 #### [facility] [address] [place], [address] Erythrocyte distribution width (RBC) [Ratio] 14.0 % Normal 11.6-14.6 [facility] Comment on above: Performed By: #### L 100.0100 #### [facility] [address] [place], [address] Hematocrit (Bld) [Volume fraction] 36.3 % Low 37-47 [facility] Comment on above: Performed By: #### L 100.0100 #### [facility] [address] [place], [address] Hemoglobin (Bld) [Mass/Vol] 12.5 g/dL Normal 12.0-15.0 [facility] Comment on above: Performed By: #### L 100.0100 #### [facility] [address] [place], [address] IG% 0.700 Normal 0.0-0.9 [facility] Comment on above: Result Comment: IG% - Immature Granulocytes (promyelocytes, myelocytes and metamyelocytes) > 1% indicates that a LEFT SHIFT is Present. Performed By: #### L 100.0100 #### [facility] [address] [place], [address] Lymphocytes/100 WBC (Bld) 18.4 % Low 19-41 [facility] Comment on above: Performed By: #### L 100.0100 #### [facility] [address] [place], [address] MCH (RBC) [Entitic mass] 30.3 pg Normal 27.0-32.0 [facility] Comment on above: Performed By: #### L 100.0100 #### [facility] [address] [place], [address] MCHC (RBC) [Mass/Vol] 34.4 g/dL Normal 32-36 [facility] Comment on above: Performed By: #### L 100.0100 #### [facility] [address] [place], [address] MCV (RBC) [Entitic vol] 88.1 fL Normal 81-99 [facility] Comment on above: Performed By: #### L 100.0100 #### [facility] [address] [place], [address] Monocytes/100 WBC (Bld) 6.2 % Normal 0-10 [facility] Comment on above: Performed By: #### L 100.0100 #### [facility] [address] [place], [address] Neutrophils/100 WBC (Bld) 72.9 % High 47-70 [facility] Comment on above: Performed By: #### L 100.0100 #### [facility] [address] [place], [address] Nucleated RBC (Bld) [#/Vol] 0 10*3/uL Normal 0-5 [facility] Comment on above: Performed By: #### L 100.0100 #### [facility] [address] [place], [address] Platelet mean volume (Bld) [Entitic vol] 9.1 fL Normal 6.2-12.0 [facility] Comment on above: Performed By: #### L 100.0100 #### [facility] [address] [place], [address] Platelets (Bld) [#/Vol] 248 10*3/uL Normal 150-450 [facility] Comment on above: Performed By: #### L 100.0100 #### [facility] [address] [place], [address] RBC (Bld) [#/Vol] 4.12 10*6/uL Low 4.2-5.4 [facility] Comment on above: Performed By: #### L 100.0100 #### [facility] [address] [place], [address] RDW SD 44.6 fl High 35.1-43.9 [facility] Comment on above: Performed By: #### L 100.0100 #### [facility] [address] [place], [address] WBC (Bld) [#/Vol] 10.4 10*3/uL Normal 4.4-11.0 [facility] Comment on above: Performed By: #### L 100.0100 #### [facility] [address] [place], [address] Carbon dioxide, total [Moles /volume] in Central venous bloodOrdered By: Aftab Mendoza on 12-21-2024 CO2 [Moles/Vol] 20.6 mmol/L Low 21.0-32.0 [facility] Chloride assayOrdered By: Travis Mendoza on 12-21-2024 Chloride [Moles/Vol] 103 mmol/L 98-108 [facility] Comprehensive Metabolic Prof ilon 12-21-2024 Albumin [Mass/Vol] 3.8 g/dL Normal 3.5-5.0 [facility] Comment on above: Performed By: #### L 500.4050 #### [facility] [address] [place], [address] Albumin/Globulin [Mass ratio] 1.5 {ratio} Normal 0.9-2.4 [facility] Comment on above: Performed By: #### L [id number] #### [facility] [address] [place], [address] ALK PHOS 44 U/L Normal 35-104 [facility] Comment on above: Performed By: #### L 500.4050 #### [facility] [address] [place], [address] ALT [Catalytic activity/Vol] 10 U/L Normal <=34 [facility] Comment on above: Performed By: #### L [id number] #### [facility] [address] [place], [address] AST [Catalytic activity/Vol] 16 U/L Normal <=31 [facility] Comment on above: Performed By: #### L [id number] #### [facility] [address] [place], [address] Bilirubin [Mass/Vol] 0.26 mg/dL Normal 0.00-1.30 [facility] Comment on above: Performed By: #### L [id number] #### [facility] [address] [place], [address] BUN/CRE 13.0 RATIO Normal 10-20 [facility] Comment on above: Performed By: #### L [id number] #### [facility] [address] [place], [address] Calcium [Mass/Vol] 9.0 mg/dL Normal 7.6-11.0 [facility] Comment on above: Performed By: #### L [id number] #### [facility] [address] [place], [address] Chloride [Moles/Vol] 103 mmol/L Normal 98-108 [facility] Comment on above: Performed By: #### L [id number] #### [facility] [address] [place], [address] CO2 [Moles/Vol] 20.6 mmol/L Low 21.0-32.0 [facility] Comment on above: Performed By: #### L [id number] #### [facility] [address] [place], [address] Creatinine [Mass/Vol] 0.54 mg/dL Low 0.70-1.20 [facility] Comment on above: Performed By: #### L [id number] #### [facility] [address] [place], [address] ECRCL 161.60 ml/min Normal 50-250 [facility] Comment on above: Performed By: #### L [id number] #### [facility] [address] [place], [address] GAP 13 Normal 5-15 [facility] Comment on above: Performed By: #### L 500.4050 #### [facility] [address] [place], [address] GFR/1.73 sq M.predicted among non-blacks MDRD (S/P/Bld) [Vol rate/Area] 135 mL/min/{1.73_m2} Normal >60 [facility] Comment on above: Result Comment: mL/m in/1.73m2 CKD-EPI Creatinine Equation (2020) Performed By: #### L 500.4050 #### [facility] [address] [place], [address] Globulin (S) [Mass/Vol] 2.6 g/dL Normal 2.2-4.2 [facility] Comment on above: Performed By: #### L [id number] #### [facility] [address] [place], [address] Glucose [Mass/Vol] 118 mg/dL High 70-99 [facility] Comment on above: Performed By: #### L [id number] #### [facility] [address] [place], [address] Potassium [Moles/Vol] 3.8 mmol/L Normal 3.3-5.1 [facility] Comment on above: Performed By: #### L [id number] #### [facility] [address] [place], [address] Sodium [Moles/Vol] 137 mmol/L Normal 133-145 [facility] Comment on above: Performed By: #### L 500.4050 #### [facility] [address] [place], [place], [address] T PROT 6.5 g/dL Normal 5.9-8.4 [facility] Comment on above: Performed By: #### L [id number] #### [facility] [address] [place], [place], [address] Urea nitrogen [Mass/Vol] 7 mg/dL Normal 4-19 [facility] Comment on above: Performed By: #### L 500.4050 #### [facility] [address] [place], [place], [address] Emergency Department Summary on 12-21-2024 Emergency Department Summary [facility] Medical Records Department [address] [place] [address] Emergency Department Summary 12/21/24 MR#: [id number] Acct: [id number] Name: PAL NICHOLAS Rep #: [id number] : 2005 19 From: Aftab Mendoza DO [...] management. States that she is following with [facility] OB. Patient denies any vaginal spotting or bleeding. [facility] Medical History (Updated 12/21/24 @ 23:39 by [...] follow commands knew that she was at [facility] the year is 2024 Skin: Warm, [...] of infection. Discussed the case with on-call [facility] for [facility] Dr. Aragon who states that she [...] 72.9 H Lymph % (Auto) 18.4 L [place] % (Auto) 6.2 Eos % (Auto) 1.4 [...] Clarity Clear Urine pH 6.5 Ur Specific [place] 1.010 Urine Protein N (more content not included)... Normal [facility] Eosinophil percentageOrdered By: Aftab Mendoza on 12-21-2024 Eosinophils/100 WBC (Bld) 1.4 % 0-5 [facility] Erythrocyte distribution wid th ratioOrdered By: Aftab Mendoza on 12-21-2024 Erythrocyte distribution width (RBC) [Ratio] 14.0 % 11.6-14.6 [facility] Erythrocyte distribution wid th standard deviationOrdered By: Aftab Mendoza on 12-21-2024 Erythrocyte distribution width (RBC) [Ratio] 44.6 fl High 35.1-43.9 [facility] Glomerular filtration rate ( GFR) estimation/1.73 sq m using serum, plasma, or whole bOrdered By: Aftab Mendoza on 12-21-2024 GFR/1.73 sq M.predicted among non-blacks MDRD (S/P/Bld) [Vol rate/Area] 135 mL/min/{1.73_m2} >60 [facility] Comment on above: mL/min/1.73m2 CKD-EP I Creatinine Equation (2020) Hematocrit Auto (Bld) [Volum e fraction]Ordered By: Aftab Mendoza on 12-21-2024 Hematocrit (Bld) [Volume fraction] 36.3 % Low 37-47 [facility] Hemoglobin measurementOrdere d By: Aftab Mendoza on 12-21-2024 Hemoglobin (Bld) [Mass/Vol] 12.5 g/dL 12.0-15.0 [facility] Immature granulocytes/100 WB C Auto (Bld)Ordered By: Aftab Mendoza on 12-21-2024 Immature granulocytes/100 WBC (Bld) 0.700 % 0.0-0.9 [facility] Comment on above: IG% - Immature Granu locytes (promyelocytes, myelocytes and metamyelocytes) > 1% indicates that a LEFT SHIFT is Present. Ketones Test strip Ql (U)Ord ered By: Aftab Mendoza on 12-21-2024 Ketones Ql (U) Negative Negative [facility] - Chemistry and C hemistry - challengeOrdered By: Aftab Mendoza on 12-21-2024 AST [Catalytic activity/Vol] 16 U/L <32 [facility] MCV (mean corpuscular volume ) determinationOrdered By: Aftab Mendoza on 12-21-2024 MCV (RBC) [Entitic vol] 88.1 fL 81-99 [facility] Mean corpuscular hemoglobin (MCH) determinationOrdered By: Aftab Mendoza on 12-21-2024 MCH (RBC) [Entitic mass] 30.3 pg 27.0-32.0 [facility] Mean corpuscular hemoglobin concentration (MCHC) determinationOrdered By: Aftab Mendoza on 12-21-2024 MCHC (RBC) [Mass/Vol] 34.4 g/dL 32-36 [facility] Mean platelet volume determi nationOrdered By: Aftab Mendoza 12-21-2024 Platelet mean volume (Bld) [Entitic vol] 9.1 fL 6.2-12.0 [facility] Microscopic analysis of urin e for red blood cells (RBC)Ordered By: Aftab Mendoza on 12-21-2024 Microscopic analysis of urine for red blood cells (RBC) 0-5 SEEN /hpf 0-5 [facility] Monocyte percentageOrdered B y: Aftab Mendoza on 12-21-2024 Monocytes/100 WBC (Bld) 6.2 % 0-10 [facility] Mucus LM Ql (Urine sed)Order ed By: Aftab Mendoza on 12-21-2024 Mucus Ql (Urine sed) 0 SEEN /hpf [facility] Neutrophil percentageOrdered By: Aftab Mendoza on 12-21-2024 Neutrophils/100 WBC (Bld) 72.9 % High 47-70 [facility] Nitrite Test strip Ql (U)Ord ered By: Aftab Mendoza on 12-21-2024 Nitrite Ql (U) Negative Negative [facility] Nucleated red blood cell per centageOrdered By: Aftab Mendoza on 12-21-2024 Nucleated RBC/100 WBC (Bld) [Ratio] 0 % 0-5 [facility] Platelet countOrdered By: Travis Mendoza on 12-21-2024 Platelets (Bld) [#/Vol] 248 10*3/uL 150-450 [facility] Potassium measurement (mass/ volume)Ordered By: Aftab Mendoza on 12-21-2024 Potassium (Unsp spec) [Mass/Vol] 3.8 mmol/L 3.3-5.1 [facility] Protein Test strip Ql (U)Ord ered By: Aftab Mendoza on 12-21-2024 Protein Ql (U) Negative Negative [facility] RBC Auto (Bld) [#/Vol]Ordere d By: Aftab Mendoza on 12-21-2024 RBC (Bld) [#/Vol] 4.12 10*6/uL Low 4.2-5.4 [facility] Serum creatinine measurement (mass/volume)Ordered By: Aftab Mendoza on 12-21-2024 Creatinine [Mass/Vol] 0.54 mg/dL Low 0.70-1.20 [facility] Serum globulin measurementOr dered By: Aftab Mendoza on 12-21-2024 Globulin (S) [Mass/Vol] 2.6 g/dL 2.2-4.2 [facility] Serum glucose measurement (m ass/volume)Ordered By: Aftab Mendoza on 12-21-2024 Glucose [Mass/Vol] 118 mg/dL High 70-99 [facility] Serum or plasma alanine [place] otransferase (ALT) measurementOrdered By: Aftab Mendoza on 12-21-2024 ALT [Catalytic activity/Vol] 10 U/L <35 [facility] Serum or plasma albumin mak urement (mass/volume)Ordered By: Aftab Mendoza on 12-21-2024 Albumin [Mass/Vol] 3.8 g/dL 3.5-5.0 [facility] Serum or plasma albumin/glob ulin mass ratioOrdered By: Aftab Mendoza on 12-21-2024 Albumin/Globulin [Mass ratio] 1.5 {ratio} 0.9-2.4 [facility] Serum or plasma alkaline cristofer sphatase measurementOrdered By: Aftab Mendoza on 12-21-2024 ALP [Catalytic activity/Vol] 44 U/L 35-104 [facility] Serum or plasma calcium mak urement (mass/volume)Ordered By: Aftab Mendoza on 12-21-2024 Calcium [Mass/Vol] 9.0 mg/dL 7.6-11.0 [facility] Serum or plasma urea nitroge n measurement (mass/volume)Ordered By: Aftab Mendoza on 12-21-2024 Urea nitrogen [Mass/Vol] 7 mg/dL 4-19 [facility] Sodium levelOrdered By: Chino Mendoza on 12-21-2024 Sodium [Moles/Vol] 137 mmol/L 133-145 [facility] Squamous epithelial cells de tection in urine sediment by light microscopyOrdered By: Aftab Mendoza on 12-21-2024 Epithelial cells.squamous LM Ql (Urine sed) 0-5 SEEN /hpf 5-10 [facility] Total proteinOrdered By: Gustavo Mendoza on 12-21-2024 Protein [Mass/Vol] 6.5 g/dL 5.9-8.4 [facility] Urinalysis, Completeon 12-21 EPI,SQUAMOUS 0-5 SEEN Normal 5-10 [facility] Comment on above: Order Comment: CLEAN CATCH Performed By: #### L 400.0001 #### [facility] [address] [place], [address] RBC 0-5 SEEN Normal 0-5 [facility] Comment on above: Order Comment: CLEAN CATCH Performed By: #### L 400.0001 #### [facility] [address] [place], [address] WBC 0-5 SEEN Normal 0-5 [facility] Comment on above: Order Comment: CLEAN CATCH Performed By: #### L 400.0001 #### [facility] [address] [place], [address] BACTERIA 0 SEEN Normal None Seen [facility] Comment on above: Order Comment: CLEAN CATCH Performed By: #### L 400.0001 #### [facility] [address] [place], [address] Mucus Ql (Urine sed) [address] [facility] Comment on above: Order Comment: CLEAN CATCH Performed By: #### L 400.0001 #### [facility] [address] [place], [address] Urine clarityOrdered By: Gustavo Mendoza on 12-21-2024 Clarity (U) Clear Clear [facility] Urine color determinationOrd ered By: Aftab Mendoza on 12-21-2024 Color (U) Yellow Yellow [facility] Urine cultureOrdered By: Gustavo Mendoza on 12-21-2024 Bacteria identified Cx Nom (U) Positive Abnormal [facility] Urine glucose detectionOrder ed By: Aftab Mendoza on 12-21-2024 Glucose Ql (U) Normal mg/dl Normal [facility] Urine leukocyte esterase det ection by dipstickOrdered By: Aftab Mendoza on 12-21-2024 Leukocyte esterase Test strip Ql (U) Negative Negative [facility] Urine pHOrdered By: Aftab valentin on 12-21-2024 pH (U) 6.5 [pH] 5.0 - 8.0 [facility] Urine sediment bacteria coun t by microscopy (number/high power field)Ordered By: Aftab Mendoza on 12-21-2024 Bacteria LM.HPF (Urine sed) [#/Area] 0 /[HPF] None Seen [facility] Urine specific gravity measu rementOrdered By: Aftab Mendoza on 12-21-2024 Specific gravity (U) [Rel density] 1.010 1.002-1.030 [facility] Urine urobilinogen measureme ntOrdered By: Aftab Mendoza on 12-21-2024 Urobilinogen Ql (U) Normal mg/dl Normal [facility] White blood cell (WBC) count Ordered By: Aftab Mendoza on 12-21-2024 WBC (Bld) [#/Vol] 10.4 10*3/uL 4.4-11.0 [facility] White blood cell countOrdere d By: Aftab Mendoza on 12-21-2024 White blood cell count 0-5 SEEN /hpf 0-5 [facility] CNPNon 12-01-2024 CNPN Telephone (OGFVWE) PAL NICHOLAS ([id number]) 3 F Date Time Provider Department 12/01/24 [facility] During your visit today, we recorded the following information about you: Maria Alejandra Kay, RN 12/01/2024 8:37 AM Signed ----- Message from Rica Pendleton sent at 11/30/2024 4:05 PM EDT ----- Regarding: New/[facility] OB 16 weeks Patient has been identified by name and Date of : Yes Patient: Pal Nicholas Date of : 2005 Provider for this encounter : [facility] Reason for call: New OB patient (16 weeks as of 11/30/24), [place] from [place] Was an appointment scheduled: No Reason for requesting visit (RFV/signs and symptoms/diagnosis) : Establish with OB at [facility] [place] [facility] for continuation of care. Person calling: self Return call to: self Call patient at: [phone] (cell), it is OK to leave message [...] and verified. Patient wishes to transfer to [facility] for OB care. AMARI? 05/31/25 Gestational age? 14w1d Patient aware to sign up for My Chart so she can receive the director career messages. What facility is she transferring from? [facility] [place] Moving to [place] in 2 weeks and will be approx [...] would the patient like to establish in? [place] Will route this encounter to the desired office. Maria Alejandra Kay RN Allergies As of Date: 12/01/2024 (Not on File) Date Reviewed: Never Reviewed Reason for Visit: Care Coordination [3491] Problem List As Of Date: 12/01/2024 (None) Encounter Status:Closed by MAGDA HAGEN on 12/02/24 Normal [facility] Vital Signs Date Time Vital Sign Value Performing Clinician Adina salmon 02-23-2025 20:56-0400 Body height 170.[address] Aftab Mendoza DO Work Phone: 0(773)[phone] [place] [address] 02-23-2025 20:56-0400 Body mass index (BMI) [Ratio] 28.5 kg/m2 Dr. Aftab Mendoza DO Work Phone: [facility] 02-23-2025 20:56-0400 Body weight 82.[address] Aftab Mendoza DO Work Phone: [facility] 02-13-2025 22:31-0400 Diastolic blood pressure 73 mm[Hg] Dr. Aftab Mendoza DO Work Phone: [facility] 02-13-2025 22:31-0400 Heart rate 95 /min Dr. Aftab Mendoza DO Work Phone: 4(245)854-656465 [place] [address] 02-13-2025 22:31-0400 Systolic blood pressure 120 mm[Hg] Dr. Aftab Mendoza DO Work Phone: 4(243)681-860165 [place] [address] 02-13-2025 22:07-0400 Body temperature 98.6 [degF] Dr. Aftab Mendoza DO Work Phone: 4(465)198-198765 [place] [address] 02-13-2025 22:07-0400 Respiratory rate 16 /min Dr. Aftab Mendoza DO Work Phone: 0(574)880-186165 [place] [address] 02-13-2025 21:53-0400 Body height 170.[address] Aftab Mendoza DO Work Phone: 1(263)031-763965 [place] [address] 02-13-2025 21:53-0400 Body mass index (BMI) [Ratio] 27.7 kg/m2 Dr. Aftab Mendoza DO Work Phone: [facility] 02-13-2025 21:53-0400 Body weight 80.[address] Aftab Mendoza DO Work Phone: [facility] 02-08-2025 10:33-0400 Body mass index (BMI) [Ratio] 27.57 kg/m2 Lynnette Tapia [employer] Work Phone: [facility] 02-08-2025 10:33-0400 Body weight 79.83 kg Lynnette Plotts [employer] Work Phone: [facility] 02-08-2025 10:33-0400 Diastolic blood pressure 74 mm[Hg] Lynnette Tapia [employer] [place] Work Phone: [facility] 02-08-2025 10:33-0400 Systolic blood pressure 126 mm[Hg] Lynnette Tapia [employer] [place] Work Phone: [facility] 02-05-2025 15:26-0400 Diastolic blood pressure 78 mm[Hg] Dr. Aftab Mendoza DO Work Phone: [facility] 02-05-2025 15:26-0400 Heart rate 80 /min Dr. Aftab Mendoza DO Work Phone: [facility] 02-05-2025 15:26-0400 Systolic blood pressure 124 mm[Hg] Dr. Aftab Mendoza DO Work Phone: [facility] 02-05-2025 15:10-0400 Body temperature 99 [degF] Dr. Aftab Mendoza DO Work Phone: [facility] 02-05-2025 15:10-0400 Respiratory rate 16 /min Dr. Aftab Mendoza DO Work Phone: [facility] 02-05-2025 15:10-0400 SaO2% (BldA) [Mass fraction] 96 % Dr. Aftab Mendoza DO Work Phone: [facility] 02-04-2025 22:37-0400 Body temperature 99.4 [degF] Dr. Aftab Mendoza DO Work Phone: [facility] 02-04-2025 22:37-0400 Diastolic blood pressure 84 mm[Hg] Dr. Aftab Mendoza DO Work Phone: [facility] 02-04-2025 22:37-0400 Heart rate 92 /min Dr. Aftab Mendoza DO Work Phone: [facility] 02-04-2025 22:37-0400 Respiratory rate 16 /min Dr. Aftab Mendoza DO Work Phone: 7(695)165-185665 [place] [address] 02-04-2025 22:37-0400 Systolic blood pressure 129 mm[Hg] Dr. Aftab Mendoza DO Work Phone: 9(002)985-446465 [place] [address] 02-04-2025 22:23-0400 Body height 170.[address] Aftab Mendoza DO Work Phone: 9(926)866-091465 [place] [address] 02-04-2025 22:23-0400 Body mass index (BMI) [Ratio] 27.2 kg/m2 Dr. Aftab Mendoza DO Work Phone: 4(881)379-999865 [place] [address] 02-04-2025 22:23-0400 Body weight 78.[address] Aftab Mendoza DO Work Phone: 4(298)999-594105 [place] [address] 02-02-2025 21:12-0400 Body temperature 98.8 [degF] Dr. Aftab Mendoza DO Work Phone: 0(595)834-225705 [place] [address] 02-02-2025 21:12-0400 Diastolic blood pressure 78 mm[Hg] Dr. Aftab Mendoza DO Work Phone: 8(717)445-334705 [place] [address] 02-02-2025 21:12-0400 Heart rate 109 /min Dr. Aftab Mendoza DO Work Phone: 3(574)846-323065 [place] [address] 02-02-2025 21:12-0400 Respiratory rate 16 /min Dr. Aftab Mendoza DO Work Phone: 5(992)187-374065 [place] [address] 02-02-2025 21:12-0400 SaO2% (BldA) [Mass fraction] 98 % Dr. Aftab Mendoza DO Work Phone: 7(698)420-625065 [place] [address] 02-02-2025 21:12-0400 Systolic blood pressure 123 mm[Hg] Dr. Aftab Mendoza DO Work Phone: 4(026)591-475765 [place] [address] 02-02-2025 21:07-0400 Body height 170.[address] Aftab Mendoza DO Work Phone: 2(085)545-498565 [place] [address] 02-02-2025 21:07-0400 Body mass index (BMI) [Ratio] 27.2 kg/m2 Dr. Aftab Mendoza DO Work Phone: [facility] 02-02-2025 21:07-0400 Body weight 78.[address] Aftab Mendoza DO Work Phone: [facility] 02-02-2025 14:04-0400 Body mass index (BMI) [Ratio] 27.41 kg/m2 Lester Phillips MD Work Phone: [facility] 02-02-2025 14:04-0400 Body weight 79.38 kg Lester Phillips MD Work Phone: [facility] 02-02-2025 14:04-0400 Diastolic blood pressure 78 mm[Hg] Lester Phillips MD Work Phone: [facility] 02-02-2025 14:04-0400 Systolic blood pressure 122 mm[Hg] Lester Phillips MD Work Phone: [facility] 01-20-2025 09:55-0400 Body mass index (BMI) [Ratio] 26.31 kg/m2 Karina Blanco MD Work Phone: [facility] 01-20-2025 09:55-0400 Body weight 76.2 kg Karina Blanco MD Work Phone: [facility] 01-20-2025 09:55-0400 Diastolic blood pressure 62 mm[Hg] Karina Blanco MD Work Phone: [facility] 01-20-2025 09:55-0400 Systolic blood pressure 116 mm[Hg] Karina Blanco MD Work Phone: [facility] 01-11-2025 15:00-0400 Body mass index (BMI) [Ratio] 25.34 kg/m2 Ramakrishna Corley MD Work Phone: [facility] 01-11-2025 15:00-0400 Body weight 73.39 kg Ramakrishna Corley MD Work Phone: [facility] 01-11-2025 15:00-0400 Diastolic blood pressure 70 mm[Hg] Ramakrishna Corley MD Work Phone: [facility] 01-11-2025 15:00-0400 Systolic blood pressure 110 mm[Hg] Ramakrishna Corley MD Work Phone: [facility] 12-28-2024 08:46-0400 Body height 170.2 cm Lynnette Tapia FERMENTER CHAMPAGNE.CNM Work Phone: [facility] 12-28-2024 08:46-0400 Body mass index (BMI) [Ratio] 24.9 kg/m2 Lynnette Tapia FERMENTER [place]AMPAGNE.CNM Work Phone: [facility] 12-28-2024 08:46-0400 Body weight 72.12 kg Lynnette Tapia FERMENTER CHAMPAGNE.CNM Work Phone: [facility] 12-28-2024 08:46-0400 Diastolic blood pressure 74 mm[Hg] Lynnette Tapia FERMENTER CHAMPAGNE.CNM Work Phone: [facility] 12-28-2024 08:46-0400 Systolic blood pressure 114 mm[Hg] Lynnette Tapia FERMENTER CHAMPAGNE.CNM Work Phone: [facility] 12-22-2024 00:00-0400 Heart rate 81 /min Dr. Aftab Mendoza DO Work Phone: [facility] 12-22-2024 00:00-0400 Respiratory rate 16 /min Dr. Aftab Mendoza DO Work Phone: [facility] 12-22-2024 00:00-0400 SaO2% (BldA) [Mass fraction] 98 % Dr. Aftab Mendoza DO Work Phone: [facility] 12-21-2024 23:57-0400 Body temperature 97.4 [degF] Dr. Aftab Mendoza DO Work Phone: [facility] 12-21-2024 23:57-0400 Diastolic blood pressure 58 mm[Hg] Dr. Aftab Mendoza DO Work Phone: [facility] 12-21-2024 23:57-0400 Systolic blood pressure 110 mm[Hg] Dr. Aftab Mendoza DO Work Phone: [facility] 12-21-2024 20:27-0400 Body height 170.[address] Aftab Mendoza DO Work Phone: [facility] 12-21-2024 20:27-0400 Body mass index (BMI) [Ratio] 24.4 kg/m2 Dr. Aftab Mendoza DO Work Phone: [facility] 12-21-2024 20:27-0400 Body weight 70.[address] Aftab Mendoza DO Work Phone: [facility] Encounters Encounter Date Encounter Type Care Provider Facility Start: 03-11-2025 End: 03-11-2025 ambulatory LYNNETTE TAPIA Facility:[facility] Start: 03-08-2025 End: 03-08-2025 ambulatory REGGIE MA Facility:[facility] Start: 02-23-2025 End: 02-23-[address] Aftab Mendoza DO Work Phone: -[facility] Start: 02-23-2025 End: 02-23-2025 Patient encounter procedure Patsy March CNM -[facility] Work Phone: Start: 02-18-2025 End: 02-18-2025 ambulatory KARI JOHNSTON Facility:[facility] Start: 02-16-2025 End: 02-16-2025 ambulatory LESTER PHILLIPS Facility:[facility] Start: 02-13-2025 End: 02-13-[address] Aftab Mendoza DO Work Phone: -[facility] Start: 02-13-2025 End: 02-13-[address] Magda Aragon MD -[facility] Work Phone: Start: 02-13-2025 End: 02-13-2025 Emergency department patient visit ALEXA DICKSON Facility:[facility] Start: 02-08-2025 End: 02-08-2025 Patient encounter procedure Lynnette Tapia FERMENTER CHAMPAGNE.CNM Work Phone: OB/Gynecology Comment on above: Encounter for superv ision of normal first in second trimester (HCC) (Primary Dx); 24 weeks gestation of (HCC); Screening for diabetes mellitus; Vaginal discharge during in second trimester (HCC) Start: 02-08-2025 End: 02-08-2025 ambulatory LYNNETTE TAPIA Facility:[facility] Start: 02-05-2025 End: 02-05-2025 Telephone encounter Lynnette Tapia FERMENTER CHAMPAGNE.CNM Work Phone: OB/Gynecology Comment on above: Contractions Start: 02-04-2025 End: 02-05-[address] Aftab Mendoza DO Work Phone: -[facility] Start: 02-04-2025 End: 02-05-[address] Ramakrishna Corley DO -[facility] Work Phone: Start: 02-02-2025 End: [...] Start: 01-20-2025 End: 01-20-2025 ambulatory KARINA BLANCO Facility:[facility] Start: 01-19-2025 End: 01-20-2025 ambulatory Ramakrishna Corley MD Work Phone: OB/Gynecology Start: 01-19-2025 End: 01-20-2025 Follow-up encounter Ramakrishna Corley MD Work Phone: OB/Gynecology Comment on above: Follow up from ER Start: 01-18-2025 End: 01-19-2025 Emergency department patient visit NUZHAT ZAMORANO Facility:[facility] Start: 01-18-2025 End: 01-20-2025 Telephone encounter Lynnette Tapia APRN.CNM Work Phone: OB/Gynecology Comment on above: Breast Pump Start: 01-14-2025 End: 01-14-2025 Telephone encounter Ramakrishna Corley MD Work Phone: OB/Gynecology Comment on above: Orders Start: 01-12-2025 End: 01-12-2025 ambulatory RAMAKRISHNA CORLEY Facility:[facility] Start: 01-11-2025 End: 01-11-2025 Patient encounter procedure Ramakrishna Corley MD Work Phone: OB/Gynecology Comment on above: Bacterial vaginosis (Primary Dx); 20 weeks gestation of (HCC); Burning with urination; Palpitations; Other fatigue; Weakness; Encounter for supervision of normal first in second trimester ([facility]) POTS (postural ortho static tachycardia syndrome) (Primary Dx); Visit for screening ([facility]); 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[facility]); Chronic hypertension affecting ([facility]) Start: 01-11-2025 End: 01-11-2025 ambulatory LYNNETTE TAPIA Facility:[facility] Start: 01-07-2025 End: 01-12-2025 Telephone encounter Ej Rodriguez MD Work Phone: [facility] Comment on above: Appointment Start: 01-06-2025 End: 01-06-2025 Emergency department patient visit ALEXA DICKSON Facility:[facility] Start: 01-06-2025 End: 01-07-2025 Telephone encounter Karina Addison APRN.CNM Work Phone: OB/Gynecology Comment on above: OB Vaginal Pressure Start: 01-05-2025 End: 01-05-2025 Telephone encounter Jayla Keller MD Work Phone: [facility] Comment on above: OB Pain Start: 01-04-2025 End: 01-05-2025 ambulatory NUZHAT ZAMORANO Facility:[facility] Start: 01-04-2025 End: 01-21-2025 Telephone encounter Magda Aragon MD Work Phone: OB/Gynecology Comment on above: Low back aching/cram ping pelvic region Start: 12-30-2024 End: 12-30-2024 ambulatory [facility] Facility:[facility] Start: 12-28-2024 End: 12-28-2024 Patient encounter procedure Lynnette Tapia FERMENTER CHAMPAGNE.CNM Work Phone: OB/Gynecology Comment on above: Visit for s creening (HCC) (Primary Dx); 18 weeks gestation of (HCC); Encounter for supervision of high risk in second trimester, antepartum (HCC); 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[facility]); POTS (postural orthostatic tachycardia syndrome); Cystic fibrosis carrier; Screening for STD (sexually transmitted disease); Abdominal pain during in second trimester ([facility]); Bacterial vaginosis Start: 12-28-2024 End: 12-28-2024 ambulatory [facility] Facility:[facility] Start: 12-25-2024 End: 12-25-2024 Telephone encounter Lynnette Tapia FERMENTER CHAMPAGNE.CNM Work Phone: OB/Gynecology Comment on above: Received [...] Start: 12-01-2024 End: 12-02-2024 Telephone encounter Nurse [employer] [place] Work Phone: Obstetrics/Gynecology Comment on above: Care Coordination Procedures Date Procedure Procedure Detail Performing Clinician Start: 03-11-2025 Antibody screen KARI SUBRAMANIAN [facility] Comment on above: Order Comment: Speci men Type: BLOOD SPECIMENOrdering Facility: [facility] Address: [address] [place] [address] Performed By: #### T SPN ####[facility] LABCLIA [id number] [place] [id number] [place] Start: 02-08-2025 Urnls dip stick/tabl et rgnt auto w/o microscopy Lynnette Tapia FERMENTER CHAMPAGNE.CNM Work Phone: Start: 02-08-2025 BACTERIAL VAGINOSIS NAAT Lynnette Tapia FERMENTER CHAMPAGNE.CNM Work Phone: Start: 02-08-2025 Iadna trichomonas va ginalis amplified probe tech Lynnette Tapia FERMENTER CHAMPAGNE.CNM Work Phone: Start: 02-04-2025 Urnls dip stick/tabl [...] after 1st trimest 1/1st gestation Lynnette Tapia FERMENTER CHAMPAGNE.CNM Work Phone: Start: 01-11-2025 Urnls dip stick/tabl [...] Scree hernando () GC (Gonorrhea) Screening () [facility] Start: 01-06-2026 Screening for Chlamy eva trachomatis Chlamydia Screening () [facility] Start: 04-05-2025 RSV Vaccine (1 - Ris k 1-dose series) RSV Vaccine (1 - Risk 1-dose series) [facility] Start: 03-11-2025 End: 03-11-2025 Patient encounter procedure [facility] Comment on above: Growth Growth/OB Start: 03-11-2025 End: 03-11-2025 ambulatory 03/11/2025 9:45 AM EDT Results Only [facility] [address] [place], [place] [id number] Glucose Test [facility] Comment on above: Glucose Test Start: 03-08-2025 End: 03-08-2025 Patient encounter procedure 03/08/2025 9:20 AM EDT Office Visit [facility] [address] [facility] [address] [place] [address] eRggie Ma MD [address] [facility] [address] [place], [place] [id number] est care, hx EDS and POTS, EKG non-specific ST-T wave abnormality, currently . MS/ EKG kk [facility] Comment on above: est care, hx EDS and POTS, EKG non-specific ST-T wave abnormality, currently . MS/ EKG kk Start: 02-23-2025 Patient discharge [facility] Start: 02-13-2025 Nonstress test [facility] Start: 02-13-2025 Obstetric monitoring [facility] Start: 02-13-2025 Vital signs measurements [facility] Start: 02-13-2025 [facility] Start: 02-13-2025 Patient discharge [facility] Start: 02-08-2025 End: 05-10-2025 ANEMIA REFLEX PANEL ANEMIA REFLEX PANEL Lab Routine Encounter for supervision of normal first in second trimester (HCC) 24 weeks gestation of (HCC) Expected: 02/08/2025, Expires: 05/10/2025 [facility] Comment on above: Expected: 02/08/2025 , Expires: 05/10/2025 Start: 02-08-2025 End: 02-08-2026 GESTATIONAL GLUCOSE SCREEN, 1-HOUR, 50 GRAM, NON-FASTING GESTATIONAL GLUCOSE SCREEN, 1-HOUR, 50 GRAM, NON-FASTING Lab Routine Encounter for supervision of normal first in second trimester (HCC) 24 weeks gestation of (HCC) Screening for diabetes mellitus Expected: 02/08/2025, Expires: 02/08/2026 [facility] Work Phone: Comment on above: Expected: 02/08/2025 , Expires: 02/08/2026 Start: 02-08-2025 End: 02-08-2026 SYPHILIS TREPONEMAL W/REFLEX SYPHILIS TREPONEMAL W/REFLEX Lab Routine Encounter for supervision of normal first in second trimester (HCC) 24 weeks gestation of (HCC) Expected: 02/08/2025, Expires: 02/08/2026 [facility] Comment on above: Expected: 02/08/2025 , Expires: 02/08/2026 Start: 02-08-2025 End: 02-08-2025 Patient encounter procedure 02/08/2025 10:30 AM EDT Routine Office Visit OB/Gynecology [address] [place] [address] Lynnette Tapia APRN.CN [address] [place] [address] LMP:08/24/24, New 1st OB 12/28/24 OB/Gynecology Comment on above: LMP:08/24/24, New 1st OB 12/28/24 Start: 02-05-2025 End: 02-05-2025 Patient encounter procedure [facility] Comment on above: est care, hx EDS and POTS, EKG non-specific ST-T wave abnormality, currently . MS est care, hx EDS and POTS, EKG non-specific ST-T wave abnormality, currently . MS/ EKG kk Start: 02-05-2025 [facility] Start: 02-05-2025 Patient discharge [facility] Start: 02-04-2025 Nonstress test [facility] Start: 02-04-2025 Obstetric monitoring [facility] Start: 02-04-2025 Vital signs measurements [facility] Start: 02-04-2025 [facility] Start: 02-04-2025 Bacteria identified in Urine by Culture Urine Culture [facility] Start: 02-02-2025 End: 02-02-2025 [facility] Start: 02-02-2025 Nonstress test [facility] Start: 02-02-2025 Obstetric monitoring [facility] Start: 02-02-2025 Vital signs measurements [facility] Start: 02-02-2025 [facility] Start: 02-02-2025 Bacteria identified in Urine by Culture Urine Culture [facility] Start: 02-02-2025 Patient discharge [facility] Start: 01-28-2025 End: 01-28-2025 Patient encounter procedure 01/28/2025 10:00 AM EDT Routine Office Visit OB/Gynecology [address] [place] [address] Magda Aragon MD [address] [place] [address] LMP:3/31/25, New 1st OB 12/28/24 OB/Gynecology Comment on above: LMP:08/24/24, New 1st OB 12/28/24 Start: 01-25-2025 Influenza vaccination Influenza Vacc ine (#1) [facility] Start: 01-11-2025 End: 01-11-2025 Patient encounter procedure [facility] Comment on above: Anatomy Anatomy/OB Start: 01-11-2025 End: 04-12-2025 TSH W/REFLEX FT4 TSH W/REFLEX FT4 Lab Routine Palpitations Other fatigue Weakness Expected: 01/11/2025, Expires: 04/12/2025 [facility] Comment on above: Expected: 01/11/2025 , Expires: 04/12/2025 Start: 12-28-2024 End: 12-28-2025 OBSTETRIC ULTRASOUND WHI OBSTETRIC ULTRASOUND WHI Anc Imaging Routine Visit for screening ([facility]) Expected: 12/28/2024, Expires: 12/28/2025 [facility] Work Phone: Comment on above: Expected: 12/28/2024 , Expires: 12/28/2025 Start: 12-28-2024 End: 12-28-2024 Patient encounter procedure OB/Gynecology Comment on above: LMP:08/24/24 LMP:08/24/24 - record s in chart prep binder Start: 12-21-2024 [facility] Start: 12-21-2024 [facility] Start: 12-21-2024 Bacteria identified in Urine by Culture Urine Culture [facility] Start: 01-26-2024 Covid-19 Vaccine ( season) Covid-19 Vaccine ( season) [facility] Start: 11-25-2023 Hepatitis B Vaccine (1 of 3 - 19+ 3-dose series) Hepatitis B Vaccine (1 of 3 - 19+ 3-dose series) [facility] Start: 11-25-2023 Urine microalbumin profile DTaP,Tdap,Td Vaccine (1 - Tdap) [facility] Start: 2022 Anxiety Screening Anxiety Screening [facility] Start: 2022 Depression Screening Depression Scre ening [facility] Start: 2022 GC (Gonorrhea) Scree hernando (18-24) GC (Gonorrhea) Screening (18-24) [facility] Start: 2022 Hepatitis C screening Hepatitis C Sc hugo [facility] Start: 2022 HIV screening HIV Screening [facility] Start: 2022 Screening for Chlamy eva trachomatis Chlamydia Screening (18-24) [facility] Start: 2020 Meningococcal B Vacc ine (1 of 2 - Standard) Meningococcal B Vaccine (1 of 2 - Standard) [facility] Start: 11-25-2019 HPV Vaccine (1 - 3-d ose series) HPV Vaccine (1 - 3-dose series) [facility] Start: 2018 Peds To Adult Transi tion Annual Assessment Peds To Adult Transition Annual Assessment [facility] Start: 2016 Peds To Adult Transi tion Initial Discussion Peds To Adult Transition Initial Discussion [facility] Bacteria identified in Urine by Culture BACTERIAL CULTURE, URINE Microbiology Routine Burning with urination Ordered: 01/11/2025 [facility] Comment on above: Ordered: 01/11/2025 Bacteria identified in Urine by Culture BACTERIAL CULTURE, URINE Microbiology Routine Vaginal discharge during in second trimester ([facility]) 02/08/2025 11:17 AM EDT [facility] BACTERIAL VAGINOSIS NAAT BACTERI AL VAGINOSIS NAAT Lab Routine Visit for screening ([facility]) 12/28/2024 11:27 AM EDT [facility] BACTERIAL VAGINOSIS NAAT BACTERI AL VAGINOSIS NAAT Lab Routine Bacterial vaginosis Ordered: 01/11/2025 [facility] Work Phone: Comment on above: Ordered: 01/11/2025 PARVEEN/TRICHOMONAS NAAT PARVEEN /TRICHOMONAS NAAT Lab Routine Visit for screening ([facility]) 12/28/2024 11:27 AM EDT [facility] PARVEEN/TRICHOMONAS NAAT PARVEEN /TRICHOMONAS NAAT Lab Routine Bacterial vaginosis Ordered: 01/11/2025 [facility] Comment on above: Ordered: 01/11/2025 Patient Education Kick Counts ED False Labor OB Triage: Return to Hospital or Notify Physician if you Experience: [facility] Work Phone: Urine culture [facility] Urine culture [facility] Urine culture [facility] Payers Date Payer Category Payer Self-pay 2023 [employer] Blue [facility] BLUE CARD PPO OOS Member Subscriber Plan / Payer (Effective 2023-Present) Name: [place] NICHOLAS Relation to Subscriber: Child Name: EJ BARRERA Date of : 1981 (Home) [address]: [address] [place] [id number] Payer ID: [id number] (NAIC) Type: PPO Address: [facility] [id number] [place] [id number] 2023 Unknown [id number] Unknown [id number] Unknown [id number] Unknown [id number] Unknown [id number] Unknown [id number] Social History Date Type Detail Facility Tobacco smoking stat us MTIS Tobacco smoking consumption unknown [facility] Start: 2004 Sex assigned at Not on file [facility] Start: 12-28-2024 End: 01-11-2025 Gender identity Not on file [facility] Start: 12-21-2024 End: 12-28-2024 Tobacco smoking status NHIS Never smoked tobacco (finding) [facility] Start: 2004 Sex Assigned At Female W [facility] Start: 09-07-2024 [facility] Start: 12-28-2024 Tobacco use and exposure Smokeless tobacco non-user [facility] Start: 12-28-2024 End: 01-11-2025 History of Social function [facility] Start: 11-30-2024 Adult Depression Screening Assessment 0 [facility] Goals Date Patient Goal Desired Activity /State Personal health goal Personal health goal Functional Status Date Assessment Result Facility 01-19-2025 Are you deaf, or do you have serious difficulty hearing No 01/19/2025 3:40 AM Armida Owens RN No [facility] 01-19-2025 Are you blind, or do you have serious difficulty seeing, even when wearing glasses No 01/19/2025 3:40 AM Armida Owens RN No [facility] 01-19-2025 Do you have serious difficulty walking or climbing stairs No 01/19/2025 3:40 AM Armida Owens RN No [facility] 01-19-2025 Do you have difficul ty dressing or bathing No 01/19/2025 3:40 AM Armida Owens RN No [facility] 01-19-2025 Because of a physica l, mental, or emotional condition, do you have difficulty doing errands alone such as visiting a physician's office or shopping No 01/19/2025 3:40 AM Armida Oewns RN No [facility] 01-06-2025 Are you deaf, or do you have serious difficulty hearing No 01/06/2025 10:25 PM Benita Yeager RN No [facility] 01-06-2025 Are you blind, or do you have serious difficulty seeing, even when wearing glasses No 01/06/2025 10:25 PM Benita Yeager RN No [facility] 01-06-2025 Do you have serious difficulty walking or climbing stairs No 01/06/2025 10:25 PM Benita Yeagre RN No [facility] 01-06-2025 Do you have difficul ty dressing or bathing No 01/06/2025 10:25 PM Benita Yeager RN No [facility] 01-06-2025 Because of a physica l, mental, or emotional condition, do you have difficulty doing errands alone such as visiting a physician's office or shopping No 01/06/2025 10:25 PM MANJULAT Benita Bradley RN No [facility] 01-05-2025 Are you deaf, or do you have serious difficulty hearing No 01/05/2025 2:21 AM MANJULAT Ayanna Alatorre RN No [facility] 01-05-2025 Are you blind, or do you have serious difficulty seeing, even when wearing glasses No 01/05/2025 2:21 AM Ayanna Price RN No [facility] 01-05-2025 Do you have serious difficulty walking or climbing stairs No 01/05/2025 2:21 AM Ayanna Price RN No [facility] 01-05-2025 Do you have difficul ty dressing or bathing No 01/05/2025 2:21 AM Ayanna Price RN No [facility] 01-05-2025 Because of a physica l, mental, or emotional condition, do you have difficulty doing errands alone such as visiting a physician's office or shopping No 01/05/2025 2:21 AM Ayanna Price RN No [facility] 12-22-2024 Are you deaf, or do you have serious difficulty hearing No 12/22/2024 9:46 PM Armida Rodriguez RN No [facility] 12-22-2024 Are you blind, or do you have serious difficulty seeing, even when wearing glasses No 12/22/2024 9:46 PM Armida Rodriguez, LEVON No [facility] 12-22-2024 Do you have serious difficulty walking or climbing stairs No 12/22/2024 9:46 PM Armida Rodriguez RN No [facility] 12-22-2024 Do you have difficul ty dressing or bathing No 12/22/2024 9:46 PM Armida Rodriguez RN No [facility] 12-22-2024 Because of a physica l, mental, or emotional condition, do you have difficulty doing errands alone such as visiting a physician's office or shopping No 12/22/2024 9:46 PM Armida Rodriguez RN No [facility] Mental Status Date Assessment Result Facility 01-19-2025 Because of a physica l, mental, or emotional condition, do you have serious difficulty concentrating, remembering, or making decisions No 01/19/2025 3:40 AM EDArmida Sanz RN No [facility] 01-06-2025 Because of a physica l, mental, or emotional condition, do you have serious difficulty concentrating, remembering, or making decisions No 01/06/2025 10:25 PM EDT Benita Bradley, LEVON No [facility] 01-05-2025 Because of a physica l, mental, or emotional condition, do you have serious difficulty concentrating, remembering, or making decisions No 01/05/2025 2:21 AM EDT Ayanna Alatorre, LEVON No [facility] 12-22-2024 Because of a physica l, mental, or emotional condition, do you have serious difficulty concentrating, remembering, or making decisions No 12/22/2024 9:46 PM EDArmida Smith, LEVON [facility] Clinical Notes 2004 to 03-11-2025 Note Date & Type Note Facility 03-11-2025 Note HNO ID: [id number] Author: JOCELYNE BLACK RN Service: ? Author Type: Registered Nurse Type: Progress Notes Filed: 03/11/2025 12:22 Note Text: The patient is here for an injection of Rhogam. Dose: 300 mcg Amount wasted: none. Route: Intramuscular Site: left upper quadrant gluteus Sustainment Logistics Analyst: CSL Behring Lot #: [id number] Expiration Date: 09/04/2026 Jocelyne Black RN [facility] 03-11-2025 Note HNO ID: [id number] Author: PRITI SHARMA MA Service: ? Author Type: Tea Bag Machine Tender Type: Progress Notes Filed: 03/11/2025 12:22 Note Text: Patient identified by name and date of . Pal Garcia Sraahy Kaur presents today for a vaccination of Tdap. Patient denies an allergy to latex: yes Patient denies a severe (life-threatening) allergy to a previous dose of Tdap, DTP, DTaP, DT or Td vaccine. Yes Patient denies history of epilepsy or neurological problems: Yes Patient is afebrile and denies being moderately or severely ill: Yes Patient denies history of Guillain-[place] Syndrome (a severe paralytic illness): Yes Tdap Adacel injection was given without incident. See immunizations for details of immunizations administered today. VIS sheet provided: Yes Provider Ramakrishna Corley DO was present in office at time of injection. Priti Sharma MA [facility] 03-08-2025 Note HNO ID: [id number] Author: REGGIE MA MD Service: ? Author Type: Physician Type: Progress Notes Filed: 03/08/2025 09:45 Note Text: PRIMARY CARE PHYSICIAN: To use this Smartlink, specify the provider ID whose address you want to display, e.g., .PROVADDR[1 (where 1 is the provider ID). REFERRING PHYSICIAN: Lynnette Nuñez[address] [facility] [address] CHIEF COMPLAINT: Abnormal EKG HISTORY OF PRESENT [...] of illicit drugs. 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 She has 1 other sibling. She is here in the office with her mom. Paternal grandfather suddenly at age 49. She stated the diagnosis of Myles-Danlos was made by a tannery worker and network systems engineer. She is not sure if she had [...] S1/S2; no murmurs, gallops, or rubs Abdomen: Paxinos distended. Nontender. EXTREMETIES: No peripheral edema. Grade [...] (U/L) Date Value 01/18/2025 11 URINALYSIS Specific Paxinos, Ur Date Value Ref Range Status 02/13/2025 1.019 1.005 - 1.030 Final Glucose, Urine Date Value Ref Range Status 02/13/2025 Negative Trac (more content not included)... [facility] 02-23-2025 History and physical note Note Date/Time February 23, 2025 9:06pm [facility] Medical Records Department [address] [place] [address] OB Triage Physician Note 02/23/252054 MR#: [id number] Acct: [id number] Name: PAL NICHOLAS Rep #:[id number] : 2005 19 From: Lester Phillips MD PCP: Care Physician,No Primary Status :REG CLI Y Location: XG336-5 HPI - General General Date of Service: [...] MD; No Primary Care Physician ~ Signed [facility] Work Phone: 1(929) 478-818809-30-2025 History and physical note [facility] Medical Records Department [address] [place] [address] OB Triage Physician Note 02/23/252054 MR#: [id number] Acct: [id number] Name: PAL NICHOLAS Rep #:[id number] : 2005 From: Lester Phillips MD PCP: Care Physician,No Primary Status :REG CLI Y Location: [place] [address]-1 HPI - General General Date of Service: 02/23/25 HPI Narrative PAL NICHOLAS, is a 19 F who presents back pain, side pain and some contractions. Maternal Data Information AMARI Calculator 2 Estimated Delivery Date Method Current WG Current Estimate 05/31/25 Manual 26w 1d PFSH [facility] Medical History (Updated 02/23/25 @ 20:56 [...] MD; No Primary Care Physician ~ Signed [facility]09-25-2025 NoteHNO ID: [id number] Author: KARI JOHNSTON MD Service: ? Author Type: Physician Type: Progress Notes Filed: 02/18/2025 13:16 Note Text: Female Pelvic Medicine AND Reconstructive Surgery Consult Recording using Edictive software for draft documentation of the visit was discussed with the patient/authorized customer field representative; all questions welcomed and answered. Patient/authorized customer field representative agreed to proceed CHIEF COMPLAINT: Pal [...] retention, (+) uterine contractio (more content not included)...[facility]09-20-2025 NoteHNO ID: [id number] Author: KERVIN GRADINER DO Service: Obstetrics Author Type: Resident Type: [...] Phone 03/08/2025 9:20 AM TASHIAJudieCARINA TONYSHAWNA Mcelroy [facility] [phone] 03/11/2025 9:45 AM LAB [facility] FELICIANO Tito Conklin [phone] 03/11/2025 10:00 AM I TECH 1 FIRE EATER MFM WSTR FELICIANO Tito Conklin [phone] 03/11/2025 10:00 AM FIRE EATER MFM WSTR MOB US REMOTE Tito Conklin [phone] 03/11/2025 11:10 AM RAMAKRISHNA CORLEY [phone] Precautions: Reviewed return precautions including vaginal bleeding soaking through a pad an hour for 2 consecutive hours, increasing or severe abdominal pain, intractable nausea/vomiting. New or adjusted home medications: none Other recommendations/instructions: Follow-up with Urogynecology outpatient. [facility]ervin Gardiner [facility]25 NoteHNO ID: [id number] Author: KERVIN GARDINER DO Service: Obstetrics Author Type: Resident Type: Progress Notes Filed: 02/13/2025 14:39 Note Text: 1325: Completed TVUS. Concern for possible funneling with contractions. Discussed with MFM operations analyst given possible funneling in the setting of Myles' Danlos syndrome. Advised to encourage hydration and that no other intervention indicated at this time. Kervin Gardiner DO PGY-1 February 13, 2025 1:49 [facility]09-20-2025 NoteHNO ID: [id number] Author: MARIAJOSE MONTANEZ MD Service: Obstetrics Author [...] found under the Get Images tab in [employer]. SIGNATURE: Kervin Gardiner DO PATIENT NAME: Pal Nicholas DATE: February 13, 2025 TIME: 1:41 [facility]09-20-2025 NoteHNO ID: [id number] Author: RONALD COOPER RN Service: Nursing Author Type: Registered Nurse Type: Progress Notes Filed: 02/13/2025 10:59 Note Text: Bladder scanner not recognizing bladder probe. After troubleshooting, not able to use. Dr. Montanez aware.[facility]09-20-2025 NoteHNO ID: [id number] Author: MARIAJOSE MONTANEZ MD Service: Obstetrics Author [...] kit for patient at home however only parson inserts found - this was given to [...] was discussed with the patient or authorized customer field representative. The patient or authorized customer field representative has agreed to proceed with the [...] No apparent distress Abd: Gravid, non tender PROGRAM COORDINATOR- small amount of yellow / white discharge [...] and planning Fresh Test Lynnette Tapia APRN.CNM [facility]09-15-2025 Miscellaneous Notes* Quick Notes - Lynnette Tapia [...] No apparent distress Abd: Gravid, non tender PROGRAM COORDINATOR- small amount of yellow / white discharge [...] Test Lynnette Tapia APRN.CNM documented in this encounterKindred Healthcare09-12-2025 History and physical note Author Lynnette Tapia [facility] Note Date/Time February 05, 2025 5:47pm [facility] Medical Records Department [address] [place] [address] OB Triage Physician Note 02/05/25 1742 MR#: [id number] Acct: [id number] Name: PAL NICHOLAS Rep #:[id number] : 2005 19 From: Lynnette Tapia CNM PCP: Care Physician,No Primary Status :REG CLI Y Location: [place] [address]463-1 HPI - General General Chief Complaint: jones's [...] Suprapubic pain: (3) History of UTI: (4) [place]os[place] Zaragoza' contraction: COMMENT: cervix closed (5) 23 weeks gestation of : PLAN: Plan Positive movements Increase fluids CE - closed/ unchanged Continue taking Macrobid 100 mg Po BID- did not take dose today D/C home with follow up in office 02/05/25 0487 <Electronically signed by Lynnette huffman CNM> Date _ Lynnette Tapia CNM Cosigner Signature (if applicable): Date CC: HUMPHREY Tapia; No Primary Care Physician ~ Signed [facility] Work Phone: 1(307) 170-886509-12-2025 History and physical note [facility] Medical Records Department [address] [place] [address] OB Triage Physician Note 02/05/25 1742 MR#: [id number] Acct: [id number] Name: PAL NICHOLAS Rep #:[id number] : 2005 19 From: Lynnette Tapia CNM PCP: Care Physician,No Primary Status :REG CLI Y Location: [place] [address] HPI - General General Chief Complaint: ctx's [...] Suprapubic pain: (3) History of UTI: (4) Hoos[place] Zaragoza' contraction: COMMENT: cervix closed (5) 23 [...] Tapia; No Primary Care Physician ~ Signed [facility]09-12-2025 Telephone encounter Note* Telephone Encounter - Jocelyne [...] for evaluation. L&D notified. Jocelyne Black RN [facility]09-12-2025 Miscellaneous Notes* Telephone Encounter - Jocelyne Black [...] notified. Jocelyne Black RN documented in this encounterKindred Healthcare09-12-2025 History and physical note Author Ramakrishna Corley [facility] Note Date/Time February 05, 2025 12:03am [facility] Medical Records Department [address] [place] [address] OB Triage Physician Note 02/04/25 9093 MR#: [id number] Acct: [id number] Name: PAL NICHOLAS Rep #: : 2005 19 From: Ramakrishna Corley DO PCP: Care Physician,No Primary Status :REG CLI Y Location: [address] [facility] - General General Date of Service: 02/04/25 Chief Complaint: ctx's HPI Narrative PAL NICHOLAS, is a 19 F who presents ctx's. She states she has had contractions and abdominal pain for 1-2 weeks. Went to [facility] 2 weeks agofor this and [...] vb or lof. No constipation or diarrhea. [facility] Medical History (Updated 02/05/25 @ 00:00 by [...] (1) 23 weeks gestation of : (2) Hoos[place] Zaragoza' contraction: COMMENT: cervix closed PLAN: Cervix [...] DO; No Primary Care Physician ~ Signed [facility] Work Phone: 1(114) 329-569609-12-2025 History and physical note [facility] Medical Records Department [address] [place] [address] OB Triage Physician Note 02/04/25 6760 MR#: [id number] Acct: [id number] Name: PAL NICHOLAS Rep #:[id number] : 2005 19 From: Ramakrishna Corley DO PCP: Care Physician,No Primary Status :REG CLI Y Location: [place] [address]-1 HPI - General General Date of Service: 02/04/25 Chief Complaint: ctx's HPI Narrative PAL NICHOLAS, is a 19 F who presents ctx's. She states she has had contractions and abdominalpain for 1-2 weeks. Went to [facility] 2 weeks agofor this and [...] or lof. No constipation or diarrhea. PFSH [facility] Medical History (Updated 02/05/25 @ 00:00 [...] (1) 23 weeks gestation of : (2) [place] Zaragoza' contraction: COMMENT: cervix closed PLAN: Cervix [...] DO; No Primary Care Physician ~ Signed [facility]09-09-2025 History and physical note [facility] Medical Records Department [address] [place] [address] OB Triage Physician Note 02/02/25 3966 MR#: [id number] Acct: [id number] Name: PAL NICHOLAS Rep #:[id number] : 2005 19 From: Magda Aragon MD PCP: Care Physician,No Primary Status :REG CLI Y Location: [place] [address] HPI - General General Date of Admission: [...] (1) 23 weeks gestation of : (2) Hoosick Zaragoza' contraction: COMMENT: cervix closed 02/02/25 3108 in MD> Date _ Magda Aragon MD Cosigner Signature (if applicable): Date CC: Dr. Madga Aragon MD; No Primary Care Physician ~ Signed [facility]09-09-2025 Evaluation note* Diagnosis Onset Date Resolution Status Admit Date 23 weeks gestation of acute February 02 8:50pm Angel Zaragoza' contraction acute February 02, 2025 8:50pm [facility] Work Phone: 1(862) 152-664409-09-2025 Evaluation note* Diagnosis Onset Date Resolution Status Admit Date 23 weeks gestation of acute February 02 8:50pm Angel Zaragoza' contraction acute February 02, 2025 8:50pm 23 weeks gestation of acute February 04, 2025 10:13pm Hoosick Zaragoza' contraction acute February 04, 2025 10:13pm Dysuria acute January 10:13pm History of UTI acute February 04, 2025 10:13pm Suprapubic pain acute February 04, 2025 10:13pm [facility] Work Phone: 1(738) 527-329109-09-2025 Evaluation note* Diagnosis Onset Date Resolution Status Admit Date 23 weeks gestation of acute February 02 8:50pm Hoosick Zaragoza' contraction acute February 02, 2025 8:50pm 23 weeks gestation of acute February 04, 2025 10:13pm Angel Zaragoza' contraction acute February 04, 2025 10:13pm Dysuria acute January 10:13pm History of UTI acute February 04, 2025 10:13pm Suprapubic pain acute February 04, 2025 10:13pm Dysuria acute January 9:49pm Suprapubic pain acute February 13, 2025 9:49pm [facility] Work Phone: 1(413) 534-822309-09-2025 Evaluation note* Diagnosis Onset Date Resolution Status Admit Date 23 weeks gestation of acute February 02, 025 8:50pm Hoosick Zaragoza' contraction acute February 02, 2025 8:50pm 23 weeks gestation of acute February 04, 2025 10:13pm Angel Zaragoza' contraction acute February 04, 2025 10:13pm Dysuria acute January 10:13pm History of UTI acute February 04, 2025 10:13pm Suprapubic pain acute February 04, 2025 10:13pm Dysuria acute January 9:49pm Suprapubic pain acute February 13, 2025 9:49pm Threatened labor acute February 23, 2025 8:00pm [facility] Work Phone: 1([phone]) 625-891209-09-2025 Miscellaneous Notes* Quick Notes - Lester Phillips MD - 02/02/2025 2:25 PM EDT KJ - S: Jolenelinette denies contractions or vaginal bleeding. Patient reports increased discharge with possible LOF. Also would like checked for a UTI,. O: 23w1d, see flow sheet SENSITIVE EXAM: The sensitive examination was discussed with the Patient or Patient's Authorized Animal Killer. As applicable, any other physician, advance practice provider, medical student, or other health professional student that will be observing or involved in the sensitive examination for educational or training purposes was discussed with the Patient or Authorized Animal Killer. The Patient or Authorized Animal Killer has agreed to proceed with the sensitive examination. (Sensitive examination includes inspection and/or palpation of the breasts, pelvis, prostate and anorectal regions). SSE: normal vagina, cervix closed negative pool/fern/nitrazine A/P: Assessment & Plan Vaginal discharge during , antepartum (HCC) Orders: UA DIP, URINE (POC) Patient reassured on normal vaginal discharge. Follow up as scheduled. Lester Phillips MD documented in this encounterKindred Healthcare09-09-2025 Progress note* Quick Notes - Lester Phillips MD - 02/02/2025 2:25 PM EDT KJ - S: Pal denies contractions or vaginal bleeding. Patient reports increased discharge with possible LOF. Also would like checked for a UTI,. O: 23w1d, see flow sheet SENSITIVE EXAM: The sensitive examination was discussed with the Patient or Patient's Authorized Animal Killer. As applicable, any other physician, advance practice provider, medical student, or other health professional student that will be observing or involved in the sensitive examination for educational or training purposes was discussed with the Patient or Authorized Animal Killer. The Patient or Authorized Animal Killer has agreed to proceed with the sensitive examination. (Sensitive examination includes inspection and/or palpation of the breasts, pelvis, prostate and anorectal regions). SSE: normal vagina, cervix closed negative pool/fern/nitrazine A/P: Assessment & Plan Vaginal discharge during , antepartum (HCC) Orders: UA DIP, URINE (POC) Patient reassured on normal vaginal discharge. Follow up as scheduled. Lester Phillips MD [facility]09-09-2025 Telephone encounter Note* Telephone Encounter - Magda Hagen RN - 02/02/2025 11:11 AM EDT Patient called in to the office. Appointment given today. Magda Hagen RN [facility]09-09-2025 Miscellaneous Notes* Telephone Encounter - Magda Hagen RN - 02/02/2025 11:11 AM EDT Patient called in to the office. Appointment given today. Magda Hagen RN documented in this encounterKindred Healthcare08-27-2025 Telephone encounter Note * Telephone Encounter - Jocelyne Black RN - 01/20/2025 11:33 AM EDT Order signed and faxed. Jocelyne Black RN [facility]08-27-2025 Miscellaneous Notes* Telephone Encounter - Jocelyne Black RN - 01/20/2025 11:33 AM EDT Order signed and faxed. Jocelyne Black RN * Telephone Encounter - Isaura Pereira RN - 01/18/2025 8:45 AM EDT Breast pump order received from [employer]. To CP to sign. Isaura Pereira RN documented in this encounterKindred Healthcare08-27-2025 NoteHNO ID: [id number] Author: KARINA SALDAÑA MD Service: ? Author [...] was discussed with the patient or authorized customer field representative. The patient or authorized customer field representative has agreed to proceed with the sensitive examination. @ 21.2 weeks Assessment AND Plan Encounter for supervision of normal first in second trimester ([facility]) Vaginal discharge Vaginal cultures today 21 weeks [...] Making Level: 4 - Moderate Karina Omer [facility]08-27-2025 History of Present illness Narrative* Karina [...] was discussed with the patient or authorized customer field representative. The patient or authorized customer field representative has agreed to proceed with the [...] Moderate Karina Omer MD documented in this encounterKindred Healthcare08-27-2025 Progress note* Quick Notes - Karina Saldaña [...] was discussed with the patient or authorized customer field representative. The patient or authorized customer field representative has agreed to proceed with the sensitive examination. @ 21.2 weeks Assessment & Plan Encounter for supervision of normal first in second trimester ([facility]) Vaginal discharge Vaginal cultures today 21 weeks gestation of ([facility]) RTO as scheduled Abdominal pain affecting ([facility]) Went to ER had CT scan - no acute findings. Causes of pain reviewed with patient. - abdominal binder Karina Omer MD [facility]08-27-2025 Miscellaneous Notes* Quick Notes - Karina Saldaña [...] was discussed with the patient or authorized customer field representative. The patient or authorized customer field representative has agreed to proceed with the sensitive examination. @ 21.2 weeks Assessment & Plan Encounter for supervision of normal first in second trimester ([facility]) Vaginal discharge Vaginal cultures today 21 weeks gestation of (HCC) RTO as scheduled Abdominal pain affecting (HCC) Went to ER had CT scan - no acute findings. Causes of pain reviewed with patient. - abdominal binder Karina Omer MD documented in this encounterKindred Healthcare08-27-2025 Instructions* Patient Instructions* Ana Cristina Fitch MA - 01/20/2025 9:54 AM EDT SEQUENTIAL SCREENINGS The [facility] offers sequential screenings for women who are [...] testing. It will require an appointment withour boiler/chiller technician. This is not an ultrasound performed [...] the above symptoms, contact our office at [phone] and ask to speak with anurse. After hours, you can call doctors registry at [phone] OR call [facility] at [phone] ask to have the doctor operations analyst paged. If you consider this an emergency, dial -[phone] or go to your nearest emergency department. NEED HELP? Are you dealing with a violent or abusive relationship? Are you a victim of rape or sexual assult? Call [facility] ([facility] 24 hour Crisis Hotline: 253.858.8639 or 852-308-0637. MANUAL Your Guide to a Healthy manual is now on-line. Visit [email or web address] to download your free copy documented in this encounterKindred Healthcare08-26-2025 NoteHNO ID: [id number] Author: ARMIDA PENNINGTON RN Service: Nursing Author Type: Registered Nurse Type: Nursing Progress Note Filed: 01/19/2025 00:45 Note Text: Patient returned to [facility] at this time. No distress noted.[facility]08-26-2025 NoteHNO ID: [id number] Author: ARMIDA PENNINGTON RN Service: Nursing Author Type: Registered Nurse Type: Nursing Progress Note Filed: 01/19/2025 00:45 Note Text: Patient taken to CT at this time via wheelchair. RN accompanied patient. No distress noted.[facility]08-25-2025 NoteHNO ID: [id number] Author: CHAD LOYOLA DO Service: Obstetrics Author [...] medical physics group. Chad Loyola DO, MPH [facility] PGY-2A[facility]08-25-2025 NoteHNO ID: [id number] Author: CHAD LOYOLA DO Service: Obstetrics Author [...] was discussed with the patient or authorized customer field representative. The patient or authorized customer field representative has agreed to proceed with the [...] care discussed with: Provider, RN, Patient, Dr. oRdriguez, and Dr. Zamorano. SIGNATURE: Chad Loyola DO PATIENT NAME: Pal Nicholas DATE: January 18, 2025 TIME: 9:34 PM PAGER/CONTACT #: [id number]08-25-2025 Telephone encounter Note* Telephone Encounter - Isaura Pereira RN - 01/18/2025 8:45 AM EDT Breast pump order received from [employer]. To CP to sign. Isaura Pereira RN [facility]08-21-2025 Telephone encounter Note* Telephone Encounter - Ramakrishna Corley MD - 01/14/2025 1:34 PM EDT See result note [facility]08-21-2025 Miscellaneous Notes* Telephone Encounter - Ramakrishna Corley MD - 01/14/2025 1:34 PM EDT See result note documented in this encounterKindred Healthcare08-18-2025 Note* Addendum Note - Ramakrishna Corley MD - 01/11/2025 3:49 PM EDTAddended by: RAMAKRISHNA CORLEY on: 01/11/2025 03:49 PM Modules accepted: Orders [facility]08-18-2025 Miscellaneous Notes* Addendum Note - Ramakrishna Corley [...] several weeks ago, treated after she wentto [place] triage. Now has dysuria. No vb, lof, [...] wks Ramakrishna Corley DO documented in this encounterKindred Healthcare08-18-2025 Note* Addendum Note - Priti Sharma MA - 01/11/2025 3:24 PM EDTAddended by: PRITI SHARMA on: 01/11/2025 03:24 PM Modules accepted: Orders [facility]08-18-2025 Progress note* Quick Notes - Ramakrishna Corley MD - 01/11/2025 3:12 PM EDT SW- Lower pelvic cramping and dysuria with a BV infection several weeks ago, treated after she wentto [place] triage. Now has dysuria. No vb, lof, [...] - Rto 4 wks Ramakrishna Corley DO [facility]08-18-2025 Instructions* Patient Instructions* Priti Sharma MA - 01/11/2025 2:59 PM EDT SEQUENTIAL SCREENINGS The [facility] offers sequential screenings for women who are [...] testing. It will require an appointment withour boiler/chiller technician. This is not an ultrasound performed [...] the above symptoms, contact our office at [phone] and ask to speak with anurse. After hours, you can call doctors registry at [phone] OR call [facility] at [phone] ask to have the doctor operations analyst paged. If you consider this an emergency, dial 1-3-3 or go to your nearest emergency department. NEED HELP? Are you dealing with a violent or abusive relationship? Are you a victim of rape or sexual assult? Call [facility] ([place]) 24 hour Crisis Hotline: 876.273.4291 or 171-956-9790. MANUAL Your Guide to a Healthy manual is now on-line. Visit [email or web address] to download your free copy documented in this encounterKindred Healthcare08-15-2025 Telephone encounter Note * Telephone Encounter - Kari Abebe - 01/08/2025 2:39 PM EDT Scheduled 02/05/[address] Burns. Kari Abebe [facility]08-15-2025 Miscellaneous Notes* Telephone Encounter - Kari Abebe - 01/08/2025 2:39 PM EDT Scheduled 02/05/[address] Burns. Kari Abebe * Telephone Encounter - Ej Rodriguez MD - 01/07/2025 12:40 PM EDT Patient was seen by resident but not by any attending 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 labor and delivery she is and carries diagnosis of Myles-Danlos syndrome and POTS. She needs a new patient general cardiology appointment in the next 1 to 4 weeks. Please try to arrange this. If there are no spots or anyone let me know thanks Ej Rodriguez MD documented in this encounterKindred Healthcare08-14-2025 Telephone encounter Note * Telephone Encounter - Ej Rodriguez MD - 01/07/2025 12:40 PM EDT Patient was seen by resident but not by any attending 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 labor and delivery she is and carries diagnosis of Myles-Danlos syndrome and POTS. She needs a new patient general cardiology appointment in the next 1 to 4 weeks. Please try to arrange this. If there are no spots or anyone let me know thanks Ej Rodriguez MD [facility] Work Phone: 1(708) 339-825508-14-2025 Telephone encounter Note* Telephone Encounter - Jocelyne Black RN - 01/07/2025 10:35 AM EDT Patient was seen at [facility] last night. She has OB and MFM appointment on Saturday. Jocelyne Black RN [facility]08-14-2025 Miscellaneous Notes* Telephone Encounter - Jocelyne Black RN - 01/07/2025 10:35 AM EDT Patient was seen at [facility] last night. She has OB [...] 01/05 telephone notes. Patient was seen at [facility] ED triage on 01/04. The diarrhea has resolved. Advised that she go back to [facility] as the office is closing. Patient asked for an appointment tomorrow instead because of transportation. No available appointments. Advised that she should be evaluated today in case she is having labor. Voiced understanding and believes she could have a friend take her. 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 The patient or authorized customer field representative has agreed to proceed with the [...] 01/05 telephone notes. Patient was seen at [facility] ED triage on 01/04. The diarrhea has resolved. Advised that she go back to [facility] as the office is closing. Patient asked for an appointment tomorrow instead because of transportation. No available appointments. Advised that she should be evaluated today in case she is having labor. Voiced understanding and believes she could have a friend take her. CAROLINA Hagen RN [facility]08-12-2025 Telephone encounter Note* Telephone Encounter - Jocelyne Black RN - 01/05/2025 12:19 PM EDT Patient notified and voiced understanding. Jocelyne Black RN [facility]08-12-2025 Miscellaneous Notes* Telephone Encounter - Jocelyne Black RN - 01/05/2025 12:19 PM EDT Patient notified and voiced understanding. Jocelyne Black RN * Telephone Encounter - Lester Phillips MD - 01/05/2025 12:07 PM EDT Patient was seen by Azael Kulkarni while at [facility]. I recommend supportive care with hydration, potassiumrich foods such as bananas and rest. Agree that after a GI illness it can take several days to feelbetter. Please keep current appointment on Saturday. Lester Phillips MD * Telephone Encounter - Magda Hagen RN - 01/05/2025 11:34 AM EDT 19w1d See 01/04 phone note. Patient went to [facility] ED last night. [facility] notes available to review. Patient was prescribed [...] feel completely confident in the diagnosis from [facility]. Please advise. Magda Hagen RN documented in this encounterKindred Healthcare08-12-2025 Telephone encounter Note * Telephone Encounter - Lester Phillips MD - 01/05/2025 12:07 PM EDT Patient was seen by Azael Kulkarni while at [facility]. I recommend supportive care with hydration, potassiumrich foods such as bananas and rest. Agree that after a GI illness it can take several days to feelbetter. Please keep current appointment on Saturday. Lester Phillips MD [facility] Work Phone: 1(861) 911-992308-12-2025 Telephone encounter Note* Telephone Encounter - Magda Hagen RN - 01/05/2025 11:34 AM EDT 19w1d See 01/04 phone note. Patient went to [facility] OB ED last night. [facility] notes available to review. Patient was prescribed [...] feel completely confident in the diagnosis from [facility]. Please advise. Magda Hagen RN [facility]08-12-2025 Telephone encounter Note* Telephone Encounter - Jayla Keller MD - 01/05/2025 11:17 AM EDT Images from the original note were not included. Patient called requesting Rx for potassium and imodium after being seen in the OB ED 1 day ago. Jayla Keller MD [facility]08-12-2025 Miscellaneous Notes* Telephone Encounter - Jayla Keller MD - 01/05/2025 11:17 AM EDT Images from the original note were not included. Patient called requesting Rx for potassium and imodium after being seen in the OB ED 1 day ago. Jayla Keller MD documented in this encounterKindred Healthcare08-11-2025 NoteHNO ID: [id number] Author: KARINA ADDISON MD Service: Obstetrics Author [...] PAST MEDICAL HISTORY Diagnosis Date Asthma ([facility]) 2011 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[facility]) POTS (postural orthostatic tachycardia syndrome) Recurrent UTI [...] : Negative for dysuria or urinary frequency PROGRAM COORDINATOR: Negative for abnormal vaginal bleeding, abnormal vaginal discharge Objective LAST VITALS: Pulse: 102 BP: 120/63 Temp: 36.3 ?C (97.3 ?F) SpO2: 99 % SENSITIVE EXAMINATION CONSENT: Participation of a fellow, resident, medical student, or advanced practice provider student in performing the sensitive examination was discussed with the patient or authorized customer field representative. The patient or authorized customer field representative has agreed to proceed with the [...] states this is stayingthe same since at [facility] 12/22/24. Last few weeks, Pt states extremely watery discharge. Went to [facility] at that time d/t havingsharp cervical pain & was treated for BV. Feels hydrated/Has been drinking liquid IV. Does havesome burning on urination & was seen on 12/30/24 in office-UA completed and TRACE protein and TRACE leukocytes. Advised Pt that since pain has worsened as the day as gone on that it would be best to go to [facility] OB triage to be evaluated as no appts available in office at this time. Pt did state she'd feel more comfortable going there and that is essentially why she called as she wanted to discuss with a nurse. Pt states her ride will not be able to pick her up for another 30 minutes, but Pt is agreeable to go to [facility]. Dr. Aragon notified. Maite Peterson RN [facility]08-11-2025 Miscellaneous Notes* Telephone Encounter - Maite Peetrson RN - 01/04/2025 3:04 PM EDT 19w0d [...] states this is stayingthe same since at [facility] 12/22/24. Last few weeks, Pt states extremely watery discharge. Went to [facility] at that time d/t havingsharp cervical pain & was treated for BV. Feels hydrated/Has been drinking liquid IV. Does havesome burning on urination & was seen on 12/30/24 in office-UA completed and TRACE protein and TRACE leukocytes. Advised Pt that since pain has worsened as the day as gone on that it would be best to go to [facility] triage to be evaluated as no appts available in office at this time. Pt did state she'd feel more comfortable going there and that is essentially why she called as she wanted to discuss with a nurse. Pt states her ride will not be able to pick her up for another 30 minutes, but Pt is agreeable to go to [facility]. Dr. Aragon notified. Maite Peterson, RN documented in this encounterKindred Healthcare08-04-2025 Miscellaneous Notes* Quick Notes - Lynnette Tapia APRN.CNM - 12/28/2024 11:15 AM EDT Patient is at 18 weeks gestation here for NOB. She is new to office and has received adequateprenatal care in [place]. Awaiting records. Lynnette Tapia APRN.CNM documented in this encounterKindred Healthcare08-04-2025 Progress note* Quick Notes - Lynnette Tapia APRN.CNM - 12/28/2024 11:15 AM EDT Patient is at 18 weeks gestation here for NOB. She is new to office and has received adequateprenatal care in [place]. Awaiting records. Lynnette Tapia APRN.CNM [facility]08-04-2025 NoteHNO ID: [id number] Author: LYNNETTE TAPIA APRN.CNM Service: ? Author Type: Insurance Claims Processor Type: Progress Notes Filed: 12/28/2024 13:23 Note Text: Greeter Guest Services offered: Patient declines. INITIAL OB ASSESSMENT HPI: [...] all that apply)? Centering (group care classes); Education Officer; Insurance Claims Processor care Social History: Do you have any [...] Partner: Name: Zaki Steven Age: 18 Occupation: [employer] Gender: Male PAST MEDICAL HISTORY Diagnosis Date [...] Itching GENITOURINARY: Negative f (more content not included)...[facility]08-04-2025 History of Present illness Narrative* Plotts, LynnetteDARIAN.CNM - 12/28/2024 8:36 AM EDT Greeter Guest Services offered: Patient declines. INITIAL OB ASSESSMENT HPI: [...] all that apply)? Centering (group care classes); Education Officer; Insurance Claims Processor care Social History: Do you have any [...] Partner: Name: Zaki Steven Age: 18 Occupation: [employer] Gender: Male PAST MEDICAL HISTORY Diagnosis Date [...] discussed with the Patient or Patient's Authorized Animal Killer. As applicable, any other physician, advance practice provider, medical student, or other health professional student that will be observing or involved in the sensitive examination for educational or training purposes was discussed with the Patient or Authorized Animal Killer. The Patient or Authorized Animal Killer has agreed to proceed with the sensitive [...] Your guide to a health and the Button Sawyer. Discussed Centering group- MAY BE INTERESTED 2) [...] prirving. Lynnette Tapia APRN.CNM documented in this encounterKindred Healthcare08-04-2025 Instructions* Patient Instructions* Ralph Molina LPN - 12/28/2024 8:36 AM EDT Please select the following link to access the [facility] Your Guide to a Healthy . [email or web address] documented in this encounterKindred Healthcare08-01-2025 Telephone encounter Note * Telephone Encounter - Isaura Pereira RN - 12/25/2024 12:13 PM EDT Records received from [facility] in [place]. In chart prep binder for NOB appt on 12/28 with CP. Isaura Pereira RN [facility]08-01-2025 Miscellaneous Notes* Telephone Encounter - Isaura Pereira RN - 12/25/2024 12:13 PM EDT Records received from [facility] in [place]. In chart prep binder for NOB appt on 12/28 with CP. Isaura Pereira RN documented in this encounterKindred Healthcare07-29-2025 NoteHNO ID: [id number] Author: MARK FOREMAN MD Service: Obstetrics Author [...] and recurrent UTIs. She recently moved from [place] and is establishing care with [facility]. Pt states her abdominal pain is intermittent and began around 6 pm yesterday. She was evaluated at [place] ED yesterday where she was found to [...] nausea, vomiting, or diarrhea : + dysuria PROGRAM COORDINATOR: Negative for abnormal vaginal bleeding, + for [...] was discussed with the patient or authorized customer field representative. The patient or authorized customer field representative has agreed to proceed with the [...] PM EDT Patient notified. Magda Hagen RN [facility]07-29-2025 Miscellaneous Notes* Telephone Encounter - Magda Hagen [...] urgent issue or go to [facility] at [facility] or see if there is a sooner NOB elsewhere to get her established then f/u here. Karina Addison MD * Telephone Encounter - Magda Hagen RN - 12/22/2024 12:26 PM EDT New WHI OB seen at [facility] ER yesterday for pelvic pain. LMP 08/24/24. Approximately 17w1d. Patient calling because she still continues to have pelvic pain and pressure. Pain rate of 5-6. Taking Tylenol and using heat with no relief. States when she went to the ER her pain was 8-9. Denies LOF or VB. Per [facility] ER report: Discussed the case with on-call NUTTER UP for [facility] Dr. Aragon who states that she [...] of medical records from her previous OB. [facility] ER report to RR to review. Magda Hagen RN documented in this encounterKindred Healthcare07-29-2025 Telephone encounter Note * Telephone Encounter - Karina Addison MD - 12/22/2024 3:38 PM EDT Agree w/ keep scheduled appointment. Make sure we have US results/labs for NOB. If infection ruled out and no bleeding would recommend stretching, tylenol and warm baths prn. Can return to ED if urgent issue or go to [facility] at [facility] or see if there is a sooner NOB elsewhere to get her established then f/u here. Karina Addison MD [facility] Work Phone: 1(316) 165-892907-29-2025 Telephone encounter Note* Telephone Encounter - Magda Hagen RN - 12/22/2024 12:26 PM EDT New WHI OB seen at [facility] ER yesterday for pelvic pain. LMP 08/24/24. Approximately 17w1d. Patient calling because she still continues to have pelvic pain and pressure. Pain rate of 5-6. Taking Tylenol and using heat with no relief. States when she went to the ER her pain was 8-9. Denies LOF or VB. Per [facility] ER report: Discussed the case with on-call NUTTER UP for [facility] Dr. Aragon who states that she [...] of medical records from her previous OB. [facility] ER report to RR to review. Magda Hagen RN [facility]07-28-2025 Discharge summary [facility] Medical Records Department [address] [place] [address] Emergency Department Summary 12/21/24 MR#: [id number] Acct: [id number] Name: PAL NICHOLAS Rep #:[id number] : 2005 19 From: Aftab Mendoza DO [...] management. States that she is following with [facility] OB. Patient denies any vaginal spotting or bleeding. [facility] Medical History (Updated 12/21/24 @ 23:39 by [...] follow commands knew that she was at [facility] the year is 2024 Skin: Warm, [...] of infection. Discussed the case with on-call NUTTER UP for [facility] Dr. Aragon who states that she [...] 72.9 H Lymph % (Auto) 18.4 L Knox % (Auto) 6.2 Eos % (Auto) 1.4 [...] Clarity Clear Urine pH 6.5 Ur Specific [place] 1.010 Urine Protein Negative Urine Glucose (UA) [...] - Activity Restrictions/Additional Instructions: Follow-up with your NUTTER UP at your scheduled appointment on Saturday. Your blood work did not show any acute findings your urine did not show any evidence infection. Return with worsening symptoms or any concerns. Ensure you are hydrating plenty with water. Print Language: Prydeinig Disposition Disposition: Home, Self Care What to do if you have Problems For any increased pain, shortness of breath, bleeding, nausea or vomiting, chestpain, or any unexpected problems, contact your Primary Care Provider. Call [facility] ([phone]) or report tothe closest Emergency Room. Call 911 if necessary. 12/21/24 3990 Cosigner Signature (if applicable): CC: No Primary Care Physician ~ Signed [facility]07-28-2025 Discharge summary Author Aftab Mendoza [facility] Note Date/Time December 21, 2024 11:3 9pm [facility] Medical Records Department [address] [place] [address] Emergency Department Summary 12/21/24 MR#: [id number] Acct: [id number] Name: PAL NICHOLAS Rep #:[id number] : 2005 19 From: Aftab Mendoza DO [...] management. States that she is following with [facility] OB. Patient denies any vaginal spotting or bleeding. [facility] Medical History (Updated 12/21/24 @ 23:39 by [...] follow commands knew that she was at [facility] the year is 2024 Skin: Warm, [...] of infection. Discussed the case with on-call NUTTER UP for [facility] Dr. Aragon who states that she [...] 72.9 H Lymph % (Auto) 18.4 L Knox % (Auto) 6.2 Eos % (Auto) 1.4 [...] Clarity Clear Urine pH 6.5 Ur Specific [place]ax[place] 1.010 Urine Protein Negative Urine Glucose (UA) [...] - Activity Restrictions/Additional Instructions: Follow-up with your NUTTER UP at your scheduled appointment on Saturday. Your blood work did not show any acute findings your urine did not show any evidence infection. Return with worsening symptoms or any concerns. Ensure you are hydrating plenty with water. Print Language: Prydeinig Disposition Disposition: Home, Self Care What to do if you have Problems For any increased pain, shortness of breath, bleeding, nausea or vomiting, chestpain, or any unexpected problems, contact your Primary Care Provider. Call [facility] ([phone]) or report to the closest Emergency Room. Call 911 if necessary. 12/21/24 8319 <Electronically signed by Aftab Mendoza DO> Cosigner Signature (if applicable): CC: No Primary Care Physician ~ Signed [facility] Work Phone: 1(100) 584-862607-28-2025 Hospital Discharge instructionsAdditional Instructions Follow-up with your NUTTER UP at your scheduled appointment on Saturday. Your blood work did not show any acute findings your urine did not show any evidence infection. Return with worsening symptoms or any concerns. Ensure you are hydrating plenty with water.[facility] Work Phone: 1(780) 866-448907-08-2025 Telephone encounter Note* Telephone Encounter - Maria Alejandra Kay RN - 12/01/2024 10:27 AM EDT Name and verified. Patient wishes to transfer to [facility] for OB care. AMARI? 05/31/25 Gestational age? 14w1d Patient aware to sign up for My Chart so she can receive the director career messages. What facility is she transferring from? [facility] in [place] Moving to [place] in 2 weeks and will be approx [...] would the patient like to establish in? [place] Will route this encounter to the desired office. Maria Alejandra Kay RN [facility]07-08-2025 Miscellaneous Notes* Telephone Encounter - Maria Alejandra Kay RN - 12/01/2024 10:27 AM EDT Name and verified. Patient wishes to transfer to [facility] for OB care. AMARI? 05/31/25 Gestational age? 14w1d Patient aware to sign up for My Chart so she can receive the director career messages. What facility is she transferring from? [facility] in [place] Moving to [place] in 2 weeks and will be approx [...] would the patient like to establish in? [place] Will route this encounter to the desired [...] 2005 Provider for this encounter : [facility] Reason for call: New OB patient (16 weeks as of 11/30/24), [place] from [place] Was an appointment scheduled: No Reason for requesting visit (RFV/signs and symptoms/diagnosis) : Establish with OB at [facility] for continuation of care. Person calling: self Return call to: self Call patient at: [phone] (cell), it is OK to leave message Payor: ANTHEM / Plan: BLUE CARD PPO OOS / Product Type: PPO / Rica Garcia documented in this encounterKindred Healthcare07-08-2025 Telephone encounter Note * Telephone Encounter - Maria Alejandra Kay RN - 12/01/2024 10:09 AM EDT Call placed to patient to triage for new OB appt. Left message for patient to call back Maria Alejandra Kay RN [facility]07-08-2025 Telephone encounter Note* Telephone Encounter - Maria Alejandra Kay RN - 12/01/2024 8:38 AM EDT Call placed to patient to triage for new OB appt. No answer, will try later Maria Alejandra Kay RN [facility]07-08-2025 Telephone encounter Note* Telephone Encounter - Maria Alejandra Kay RN - 12/01/2024 8:37 AM EDT ----- Message from Rica Pendleton sent at 11/30/2024 4:05 PM EDT ----- Regarding: New/[facility] OB 16 weeks Patient has been identified by name and Date of : Yes Patient: Pal Nicholas Date of : 2005 Provider for this encounter : [facility] Reason for call: New OB patient (16 weeks as of 11/30/24), [place] from [place] Was an appointment scheduled: No Reason for requesting visit (RFV/signs and symptoms/diagnosis) : Establish with OB at [facility] for continuation of care. Person calling: self Return call to: self Call patient at: [phone] (cell), it is OK to leave message Payor: ANTHEM / Plan: BLUE CARD PPO OOS / Product Type: PPO / Rica Garcia [facility]07-01-2005 History and physical note [facility] Medical Records Department [address] [place] [address] OB Triage Physician Note 02/13/25 5751 MR#: [id number] Acct: [id number] Name: PAL NICHOLAS Rep #:[id number] : 2005 19 From: Magda Aragon MD PCP: Care Physician,No Primary Status :DEP CLI Y Location: [facility] - General General Date of Service: 02/13/25 Chief Complaint: pain HPI Narrative PAL NICHOLAS, is a 19 F who presents with bladder pain and unable to void.Was in Triage at [facility] early and had straight cath for 200 [...] MD; No Primary Care Physician ~ Signed [facility] noteNo assessment information available [facility] Work Phone: Evaluation note* Diagnosis Visit for screening ([facility])- Primary Unspecified screening 18 weeks gestation of ([facility]) state, incidental Encounter for supervision of high risk in second trimester, antepartum ([facility]) 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[facility]) POTS (postural orthostatic tachycardia syndrome) Tachycardia, unspecified 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 Screening for STD (sexually transmitted disease) Screening examination for venereal disease Abdominal pain during in second trimester ([facility]) Bacterial vaginosis Vaginitis and vulvovaginitis, unspecified documented in this encounter [facility]* Diagnosis Abdominal pain affecting ([facility]) Diarrhea Hypokalemia Hypopotassemia Headache Chest pain during (HCC) Vaginal discharge during (HCC) Dizziness Dizziness and giddiness Chronic hypertension affecting ([facility]) 19 weeks gestation of ([facility]) state, incidental Pelvic pressure in ([facility]) Other specified complication, antepartum Bacterial vaginosis- Primary Vaginitis and vulvovaginitis, unspecified 20 weeks gestation of ([facility]) state, incidental Burning with urination Dysuria Palpitations Other fatigue Weakness Other malaise and fatigue Encounter for supervision of normal first in second trimester ([facility]) Supervision of normal first [facility] this encounter [facility]* Diagnosis Abdominal pain affecting ([facility]) Diarrhea Hypokalemia Hypopotassemia Headache Chest pain during ([facility]) Vaginal discharge during ([facility]) Dizziness Dizziness and giddiness Chronic hypertension affecting ([facility]) 19 weeks gestation of ([facility]) state, incidental Pelvic pressure in ([facility]) Other specified complication, antepartum POTS (postural orthostatic tachycardia syndrome)- Primary Tachycardia, unspecified Visit for screening ([facility]) Unspecified screening 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[facility]) Chronic hypertension affecting ([facility]) documented in this encounter [facility]* Diagnosis Abdominal pain affecting ([facility]) Diarrhea Hypokalemia Hypopotassemia Headache Chest pain during (HCC) Vaginal discharge during ([facility]) Dizziness Dizziness and giddiness Chronic hypertension affecting ([facility]) Pelvic pressure in ([facility]) Other specified complication, antepartum Dysuria- Primary documented in this encounter [facility]* Diagnosis Diarrhea Hypokalemia Hypopotassemia Headache Chest pain during ([facility]) Vaginal discharge during ([facility]) Dizziness Dizziness and giddiness Pelvic pressure in ([facility]) Other specified complication, antepartum Chronic hypertension affecting ([facility]) Abdominal pain affecting (HCC) 21 weeks gestation of ([facility]) state, incidental Encounter for supervision of normal first in second trimester ([facility])- Primary Supervision of normal first Vaginal discharge Leukorrhea, not specified as infective 21 weeks gestation of ([facility]) state, incidental Abdominal pain affecting ([facility]) * Assessment & Plan Note - Neyhart [...] - abdominal binder documented in this encounter [facility] note* Diagnosis Diarrhea Hypokalemia Hypopotassemia Headache Chest pain during (HCC) Vaginal discharge during (HCC) Dizziness Dizziness and giddiness Pelvic pressure in (HCC) Other specified complication, antepartum Chronic hypertension affecting (HCC) Abdominal pain affecting (HCC) 21 weeks gestation of (HCC) state, incidental Encounter for supervision of normal first in second trimester ([facility])- Primary Supervision of normal first Vaginal discharge Leukorrhea, not specified as infective 21 weeks gestation of (HCC) state, incidental Abdominal pain affecting (HCC) Vaginal discharge during , antepartum (HCC)- Primary * Assessment & Plan Note - Lester Phillips MD - 02/02/2025 2:28 PM EDTAssociated Problem(s): Vaginal discharge during (HCC) Orders: UA DIP, URINE (POC) documented in this encounter [facility] note* Diagnosis Diarrhea Hypokalemia Hypopotassemia Headache Chest pain during (HCC) Vaginal discharge during (HCC) Dizziness Dizziness and giddiness Pelvic pressure in (HCC) Other specified complication, antepartum Chronic hypertension affecting (HCC) Abdominal pain affecting (HCC) 21 weeks gestation of ([facility]) state, incidental Encounter for supervision of normal first in second trimester ([facility])- Primary Supervision of normal first Vaginal discharge Leukorrhea, not specified as infective 21 weeks gestation of ([facility]) state, incidental Abdominal pain affecting ([facility]) Vaginal discharge during , antepartum ([facility])- Primary Encounter for supervision of normal first in second trimester ([facility])- Primary Supervision of normal first 24 weeks gestation of ([facility]) state, incidental Screening for diabetes mellitus Vaginal discharge during in second trimester ([facility]) documented in this encounter [facility] Healthcare[facility] and physical note Author Magda Aragon [facility] Note Date/Time February 02, 2025 11:38pm [facility] Medical Records Department [address] [place] [address] OB Triage Physician Note 02/02/25 2336 MR#: [id number] Acct: [id number] Name: PAL NICHOLAS Rep #:[id number] : 2005 19 From: Magda Aragon MD PCP: Care Physician,No Primary Status :REG CLI Y Location: [address] HPI - General General Date of Admission: 02/02/25 Date of Service: 02/02/25 Chief Complaint: cramping HPI Narrative PAL WEATHERS RAMALCOLMTY, is a 19 F who presents cramping. No bleeding. Some movement.Was seen in office today with normal discharge. Maternal Data Information Final AMAIR: 05/31/25 Gestational age: 23 PFSH [facility] Medical History (Updated 02/02/25 @ 23:38 [...] (1) 23 weeks gestation of : (2) [place] Zaragoza' contraction: COMMENT: cervix closed 02/02/25 [id number] <Electronically signed by Magda Esparza in > Date _ Magda Aragon MD Cosigner Signature (if applicable): Date CC: Dr. Magda Aragon MD; No Primary Care Physician ~ Signed [facility] Work Phone: History and physical note Author [facility] Note Date/Time February 05, 2025 12:03[facility] Medical Records Department [address] [place] [address] OB Triage Physician Note 02/04/25 1525 MR#: [id number] Acct: [id number] Name: PAL NICHOLAS Rep #:[id number] : 2005 19 From: Ramakrishna Corley DO PCP: Care Physician,No Primary Status :REG CLI Y Location: [address] [facility] General Date of Service: 02/04/25 Chief Complaint: ctx's HPI Narrative PAL NICHOLAS, is a 19 F who presents ctx's. She states she has had contractions and abdominal pain for 1-2 weeks. Went to [facility] 2 weeks agofor this and [...] vb or lof. No constipation or diarrhea. [facility] Medical History (Updated 02/05/25 @ 00:00 by [...] ; No Primary Care Physician ~ Signed [facility] Work Phone: History and physical note Author Magda Aragon [facility] Note Date/Time February 14, 2025 8:48pm [facility] Medical Records Department [address] [place] [address] OB Triage Physician Note 02/13/25 2321 MR#: [id number] Acct: [id number] Name: PAL NICHOLAS Rep #:[id number] : 2005 From: Magda Aragon MD PCP: Care Physician,No Primary Status :DEP CLI Y Location: [facility] HPI - General General Date of Service: 02/13/25 Chief Complaint: pain HPI Narrative PAL NICHOLAS, is a 19 F who presents with bladder pain and unable to void.Was in Triage at [facility] early and had straight cath for 200 [...] in > Date _ Magda Aragon MD [facility] Signature (if applicable): Date CC: Dr. Magda Aragon MD; No Primary Care Physician ~ Signed [facility] Work Phone: Reason for referral (narrative)No reason for referral information availableWSelect Medical [facility] Work Phone: Chief Complaint and Reason for Visit Chief Complaint Admit Date female pain, December 21, 2024 8: 25pm Chief Complaint Admit Date female pain, December 21, 2024 8: 25pm R/O LABOR February 02, 2025 8:50pm Reason for Visit Admit Date 23 weeks gestation of Septembe r 2024 8:50pm [place] Zaragoza' contraction January 8:50pm Chief Complaint Admit Date female pain, December 21, 2024 8: 25pm R/O LABOR February 02, 2025 8:50pm R/O LABOR February 04, 2025 10:13pm Reason for Visit Admit Date 23 weeks gestation of Bár[place] r 2024 8:50pm Angel Zaragoza' contraction January 8:50pm 23 weeks gestation of [place]ár[place] 2024 10:13pm [place] Zaragoza' contraction January 10:13pm Dysuria February 04, [...] 23 weeks gestation of [place]ár[place] 2024 10:13pm [place] Zaragoza' contraction January 10:13pm Dysuria February 04, [...] 23 weeks gestation of Bár[place] 2024 8:50pm [place] Zaragoza' contraction January 8:50pm 23 weeks gestation of [place]ár[place] 2024 10:13pm [place] Zaragoza' contraction January 10:13pm Dysuria February 04, 2025 10:13pm History of UTI February 04, 2025 10:13pm Suprapubic pain February 04, 2025 10:13pm Dysuria February 13, 2025 9:49pm Suprapubic pain February 13, 2025 9:49pm Threatened labor February 23, 2025 8:00pm Advance Directives No Advanced Directives Records Found Advance Directive Response Recorded Date/ Time Do you have a Healthcare Power of Business Center Manager? No December 21, 2024 9:54pm Summary Purpose [...] or prosecute any alcohol or drug abuse patient.[facility] HealthcareIn the event this information is protected by the Federal Confidentiality of Alcohol and Drug Abuse Patient Records regulations: The Federal rules restrict any use of the information to criminally investigate or prosecute any alcohol or drug abuse patient.[facility] HealthcareIn the event this information is protected by the Federal Confidentiality of Alcohol and Drug Abuse Patient Records regulations: The Federal rules restrict any use of the information to criminally investigate or prosecute any alcohol or drug abuse patient.[facility] HealthcareIn the event this information is protected by the Federal Confidentiality of Alcohol and Drug Abuse Patient Records regulations: The Federal rules restrict any use of the information to criminally investigate or prosecute any alcohol or drug abuse patient.[facility] HealthcareIn the event this information is protected by the Federal Confidentiality of Alcohol and Drug Abuse Patient Records regulations: The Federal rules restrict any use of the information to criminally investigate or prosecute any alcohol or drug abuse patient.[facility] HealthcareIn the event this information is protected by the Federal Confidentiality of Alcohol and Drug Abuse Patient Records regulations: The Federal rules restrict any use of the information to criminally investigate or prosecute any alcohol or drug abuse patient.[facility] HealthcareIn the event this information is protected by the Federal Confidentiality of Alcohol and Drug Abuse Patient Records regulations: The Federal rules restrict any use of the information to criminally investigate or prosecute any alcohol or drug abuse patient.[facility] HealthcareIn the event this information is protected by the Federal Confidentiality of Alcohol and Drug Abuse Patient Records regulations: The Federal rules restrict any use of the information to criminally investigate or prosecute any alcohol or drug abuse patient.[facility] HealthcareIn the event this information is protected by the Federal Confidentiality of Alcohol and Drug Abuse Patient Records regulations: The Federal rules restrict any use of the information to criminally investigate or prosecute any alcohol or drug abuse patient.[facility] HealthcareIn the event this information is protected by the Federal Confidentiality of Alcohol and Drug Abuse Patient Records regulations: The Federal rules restrict any use of the information to criminally investigate or prosecute any alcohol or drug abuse patient.[facility] HealthcareIn the event this information is protected by the Federal Confidentiality of Alcohol and Drug Abuse Patient Records regulations: The Federal rules restrict any use of the information to criminally investigate or prosecute any alcohol or drug abuse patient.[facility] HealthcareIn the event this information is protected by the Federal Confidentiality of Alcohol and Drug Abuse Patient Records regulations: The Federal rules restrict any use of the information to criminally investigate or prosecute any alcohol or drug abuse patient.[facility] HealthcareIn the event this information is protected by the Federal Confidentiality of Alcohol and Drug Abuse Patient Records regulations: The Federal rules restrict any use of the information to criminally investigate or prosecute any alcohol or drug abuse patient.[facility] HealthcareIn the event this information is protected by the Federal Confidentiality of Alcohol and Drug Abuse Patient Records regulations: The Federal rules restrict any use of the information to criminally investigate or prosecute any alcohol or drug abuse patient.[facility] HealthcareIn the event this information is protected by the Federal Confidentiality of Alcohol and Drug Abuse Patient Records regulations: The Federal rules restrict any use of the information to criminally investigate or prosecute any alcohol or drug abuse patient.[facility] HealthcareIn the event this information is protected by the Federal Confidentiality of Alcohol and Drug Abuse Patient Records regulations: The Federal rules restrict any use of the information to criminally investigate or prosecute any alcohol or drug abuse patient.[facility] HealthcareIn the event this information is protected by the Federal Confidentiality of Alcohol and Drug Abuse Patient Records regulations: The Federal rules restrict any use of the information to criminally investigate or prosecute any alcohol or drug abuse patient.[facility] HealthcareIn the event this information is protected by the Federal Confidentiality of Alcohol and Drug Abuse Patient Records regulations: The Federal rules restrict any use of the information to criminally investigate or prosecute any alcohol or drug abuse patient.[facility] HealthcareIn the event this information is protected by the Federal Confidentiality of Alcohol and Drug Abuse Patient Records regulations: The Federal rules restrict any use of the information to criminally investigate or prosecute any alcohol or drug abuse patient.[facility] Reason for Visit (unrecogniz ed section and content) Reason Comments Care Coordination Reason Comments OB Pelvic Pain Reason Comments Received Outside Medical Records Reason Comments Care Reason Comments OB Pain Reason Comments OB Vaginal Pressure Reason Onset Date Comments Care 01/11/2025 Reason Comments US Specialty Diagnoses / Procedures Referred By Contdeni t Referred To Contact [facility] Diagnoses Visit for screening ([facility]) Procedures OBSTETRIC ULTRASOUND WHI US PREG UTERUS AFTER 1ST TRIMEST GESTATION Lynnette Tapia APRN.[facility] [address] [place] [address] Phone: tel: fax: [facility] [address] [place] [address] Referral ID Status Reason Start Date Expiration Date V isits Requested Visits Authorized [id number] Closed Auto-Generate d Referral 12/29/2024 05/26/2025 1 [...] 22, 2024 Dr. Aftab Mendoza DO Emergency Departnd nt Physician Active Start: December 21, 2024 [...] February 05, 2025 Lynnette Tapia CNM Attending physician Active Start: February 04, [...] section and content) DATE CREATED AUTHOR 02/27/2025 [facility] DATE CREATED AUTHOR AUTHOR'S ORGANIZ ATION 03/09/2025 [facility] DATE CREATED AUTHOR AUTHOR'S ORGANIZ ATION 03/13/2025 [facility] FOR RECORDS PERTAINING TO PATIENTS WHO ARE [...] BE BASED ON THE PRIMARY CLINICAL RECORDS. [employer] provides no warranty or guarantee of the accuracy or completeness of information in this document.
[2025-03-13 17:55] LABS: ROM Internal Control Test YES-OK TO RESULT pt. (Internal QC)
[2025-03-13 17:56] LABS: ROM Patient Test Negative (Negative); Record Kit Lot#, ROM+ K3607
--- NOTE | 2025-03-14 12:47 | OB.TRI.HP_ITS ---
HPI - General General Date of Service: 03/13/25 HPI Narrative JOSE NICHOLAS, is a 19 F who presents [ at 28w5d presents for decreased movement, tachycrdia and possible rupture of membranes. Has history of POTS and noticed tachycardia to 111. ] Maternal Data Information AMARI Calculator Estimated Delivery Date Method Current WG Current Estimate 05/31/25 [facility]w 6d [facility] Medical History (Updated 03/14/25 @ 12:49 by Patsy March CNM) POTS (postural orthostatic tachycardia syndrome) Myles-Danlos syndrome Home Medications ?Medication ?Instructions ?Recorded ?Last Taken ?Type aspirin 81 mg capsule 81 mg PO DAILY 02/02/2502/24 19:00 History vit no.95-ferrous 1 tab PO DAILY 02/02/25 19:00 History fumarate 28 mg-folic acid 800 mcg tablet () Allergy/AdvReac Type Severity Reaction Status Date / Time No Known Allergies Allergy Verified 03/13/25 16:53 Social History Smoking Status: Never smoker History 1 Elective abortions Hx Para 0 Spontaneous abortions Hx # Term Pregnancies Ectopic pregnancies Hx # Pregnancies Multiple births # of living children NST FHR Rate Baby A Baseline: 135 Variability:: Moderate Accelerations:: 15 x 15 Decelerations:: None NST Reactive:: Yes Uterine Activity:: none Assessment & Plan (1) Decreased movement: PLAN: Plan No signs of labor, ROM plus negative POTS syndrome, to follow up with cardiology, stable at this time reactive NST D/C home
--- NOTE | 2025-03-14 12:47 | OB.TRI.HP_ITS ---
HPI - General General Date of Service: 03/13/25 HPI Narrative JOSE NICHOLAS, is a 19 F who presents [ at 28w5d presents for decreased movement, tachycrdia and possible rupture of membranes. Has history of POTS and noticed tachycardia to 111. ] Maternal Data Information AMARI Calculator Estimated Delivery Date Method Current WG Current Estimate 05/31/25 Manual 28w 6d [facility] Medical History (Updated 03/14/25 @ 12:49 by Patsy March CNM) POTS (postural orthostatic tachycardia syndrome) Myles-Danlos syndrome Home Medications ?Medication ?Instructions ?Recorded ?Last Taken ?Type aspirin 81 mg capsule 81 mg PO DAILY 02/02/2502/24 19:00 History vit no.95-ferrous 1 tab PO DAILY 02/02/25 19:00 History fumarate 28 mg-folic acid 800 mcg tablet () Allergy/AdvReac Type Severity Reaction Status Date / Time No Known Allergies Allergy Verified 03/13/25 16:53 Social History Smoking Status: Never smoker History 1 Elective abortions Hx Para 0 Spontaneous abortions Hx # Term Pregnancies Ectopic pregnancies Hx # Pregnancies Multiple births # of living children NST FHR Rate Baby A Baseline: 135 Variability:: Moderate Accelerations:: 15 x 15 Decelerations:: None NST Reactive:: Yes Uterine Activity:: none Assessment & Plan (1) Decreased movement: PLAN: Plan No signs of labor, ROM plus negative POTS syndrome, to follow up with cardiology, stable at this time reactive NST D/C home
== END 2025-03-13 18:20 | disposition home or self-care (01) ==
LOC: WPOUT 16:40 → WP 16:42
PROVIDERS: Referring Provider Advanced Practice Midwife; Visit Provider Advanced Practice Midwife
DX: O36.8190 Decreased fetal movements, unspecified trimester, not applicable or unspecified (principal); Z79.82 Long term (current) use of aspirin; O99.350 Diseases of the nervous system complicating pregnancy, unspecified trimester; G90.A Postural orthostatic tachycardia syndrome [POTS]; Z3A.00 Weeks of gestation of pregnancy not specified
CPT/HCPCS: 59025; 59050; 84112; 99221; G0378

== ENCOUNTER 2025-03-17 17:27 | Outpatient (CLI) | payer BC, SELFPAY ==
[2025-03-17 17:39] VITALS: BP 133/80; PULSE 102
--- OUTSIDE RECORDS SUMMARY | 2025-03-17 17:40 | XMS RPT_ITS | CCD ---
Author Organization [facility] Care Team Providers Care Mental Tester Name Role Phone Unavailable Primary Care Provider Unavailabl e Dr. Aftab Mendoza DO Emergency Provider [phone] Care Physician, No Primary Primary Care Provider Unavailable Dr. Aftab Mendoza DO Attending Provider Mahesh WILLIS, Dr. Man Attending Provider Dr. Magda Aragon MD Referring Provider Dr. Ramakrishna Corley DO Attending Provider Dr. Ramakrishna Corley DO Referring Provider Lynnette Tapia CNM Attending Provider Dr. Aftab Mendoza DO Attending Physician [phone] Aftab Mendoza DO Emergency Department Physic devi Care Physician, No Primary Primary Care Physicia n Unavailable Mahesh WILLIS, Dr. Man Attending Physician Lynnette Tapia CNM Attending Physician Patsy Macrh CNM Attending Physician Patsy March CNM Referring Provider YESSI, ALEXA Attending Unavailable YESSI, ALEXA Admitting Unavailable NUZHAT ZAMORANO Attending Unavailable NUZHAT ZAMORANO Admitting Unavailable ALEXA DICKSON Attending Unavailable YESSI, ALEXA Admitting Unavailable REGGIE MA Attending Unavailable LYNNETTE TAPIA Referring Unavailable NUZHAT ZAMORANO Attending Unavailable NUZHAT ZAMORANO Admitting Unavailable MARK FOREMAN Attending Unavailable MARK FOREMAN Admitting Unavailable Magda Aragon Referring Unavailable Care Physician, No Primary Primary Care Unava ilable Magda Aragon Attending Unavailable Patsy March Attending Unavailable Joaquim, Patsy Referring Unavailable Care Physician, No Primary Primary Care Unava ilable Patsy March Attending Unavailable Joaquim, Patsy Referring Unavailable Care Physician, No Primary Primary Care Unava ilable Aftab Mendoza Attending Unavailable Care Physician, No Primary Primary Care Unava ilable Magda Aragon Referring Unavailable Care Physician, No Primary Primary Care Unava ilable Magda Aragon Attending Unavailable Plotts, Lynnette Attending Unavailable Wiswell, Ramakrishna Referring Unavailable Care Physician, No Primary Primary Care Unava ilable PLOTTS, LYNNETTE Attending Unavailable PLOTTS, LYNNETTE Attending Unavailable PLOTTS, LYNNETTE Referring Unavailable WISWELL, RAMAKRISHNA Attending Unavailable PLOTTS, LYNNETTE Referring Unavailable WISWELL, RAMAKRISHNA Referring Unavailable KARINA SALDAÑA Attending Unavail able ALAN, LESTER Attending Unavailable PLOTTS, LYNNETTE Attending Unavailable ALAN, LESTER Attending Unavailable KARI JOHNSTON Attending Unavailable YESSI, ALEXA Referring Unavailable PLOTTS, LYNNETTE Referring Unavailable PLOTTS, LYNNETTE Referring Unavailable PLOTTS, LYNNETTE Referring Unavailable WISWELL, RAMAKRISHNA Attending Unavailable PLOTTS, LYNNETTE Referring Unavailable Medications Current [...] EC tablet Indications: Visit for screening ([facility]) Take 1 tablet by mouth once daily. [...] dysrhythmias (2 sources) Palpitations; Translations: [Palpitations] Onset: 01-11-2025 01-11-2025 Episodic Conditions associated with dizziness or vertigo (15 sources) Dizziness; Translations: [Dizziness and giddiness] Onset: 01-05-2025 01-05-2025 Episodic Diabetes or abnormal glucose tolerance complicating ; childbirth; or the puerperium (1 source) Abnormal glucose complicating ; Translations: [Abnormal glucose complicating (HCC)] Onset: 03-11-2025 Episodic Early or threatened labor (18 sources) [place] contractions; Translations: [False labor, unspecified] Onset: [...] (4 sources) Fatigue; Translations: [Other fatigue] Onset: 01-11-2025 01-11-2025 Episodic Nonspecific chest pain (1 source) [...] 01-06-2025 Episodic Other complications of (1 source) Decreased movements, unspecified trimester, not applicable or unspecified; Translations: [Decreased movements, unspecified trimester, not applicable or unspecified] Onset: 03-15-2025 Episodic Other complications of (1 source) Supervision [...] of normal , unspecified, unspecified trimester] Onset: 01-11-2025 12-21-2024 Episodic Other screening for suspected conditions [...] Translations: [18 weeks gestation of (HCC)] Onset: 12-28-2024 Episodic Residual codes; unclassified (1 source) 28 [...] Unclassified (16 sources) [facility] Education - [facility] Onset: 12-28-2024 12-28-2024 Unclassified (16 sources) Education - [place] Onset: 12-28-2024 12-28-2024 Unclassified (2 sources) POTS (postural orthostatic tachycardia syndrome); Translations: [POTS (postural orthostatic tachycardia syndrome)] Onset: 12-28-2024 Unclassified (1 source) Other specified diseases and conditions complicating ; Translations: [Other specified diseases and conditions complicating ] Onset: 02-25-2025 Unclassified (1 source) Myles-Danlos syndrome, unspecified; Translations: [...] Test Name Value Interpretation Reference Range Facility GLUCOSE GESTATIONAL, 1 HOURo n 03-15-2025 Glucose 1 Hr post Unsp challenge [Mass/Vol] 171 mg/dL Normal 74-179 [facility] Comment on above: Order Comment: Speci men Type: BLOOD SPECIMENOrdering Facility: [facility] Address: [address] [place] [address] Result Comment: [place] Congress of Obstetricians and Gynecologists (Ashish/Niko) guidelines state gestational diabetes mellitus is present when 2 or more of the plasma glucose concentrations meet or exceed the following levels: fastin mg/dl, 1 hr: 180 mg/dl, 2 hr: 155 mg/dl, and 3 hr: 140 mg/dl. Performed By: #### 6 30-4 #### [facility] CLIA [id number] [address] [place], [place] [address] [place] [address] [place] GLUCOSE GESTATIONAL, 2 HOURo n 03-15-2025 Glucose 2 Hr post Unsp challenge [Mass/Vol] 148 mg/dL Normal 74-154 [facility] Comment on above: Order Comment: Speci men Type: BLOOD SPECIMENOrdering Facility: [facility] Address: [address] [place] [address] Result Comment: [facility] Congress of Obstetricians and Gynecologists (Ashish/Niko) guidelines state gestational diabetes mellitus is present when 2 or more of the plasma glucose concentrations meet or exceed the following levels: fastin mg/dl, 1 hr: 180 mg/dl, 2 hr: 155 mg/dl, and 3 hr: 140 mg/dl. Performed By: #### G TGST2 ####[facility] [id number] [place] [address] [place] GLUCOSE GESTATIONAL, 3 HOURo n 03-15-2025 Glucose 3 Hr post Unsp challenge [Mass/Vol] 135 mg/dL Normal 74-139 [facility] Comment on above: Order Comment: Speci men Type: BLOOD SPECIMENOrdering Facility: [facility] Address: [address] [place] [address] Result Comment: [facility] Congress of Obstetricians and Gynecologists (Ashish/Niko) guidelines state gestational diabetes mellitus is present when 2 or more of the plasma glucose concentrations meet or exceed the following levels: fastin mg/dl, 1 hr: 180 mg/dl, 2 hr: 155 mg/dl, and 3 hr: 140 mg/dl. Performed By: #### 6 30-4 #### [facility] CLIA [id number] [address] [place] [address] [place] GLUCOSE GESTATIONAL, FASTING on 03-15-2025 Glucose post fast [Mass/Vol] 88 mg/dL Normal 74-94 [facility] Comment on above: Order Comment: Speci men Type: BLOOD SPECIMENOrdering Facility: [facility] Address: [address] [place] [address] Result Comment: [facility] [employer] of [employer]stetricians and Gynecologists (Ashish/Niko) guidelines state gestational diabetes mellitus is present when 2 or more of the plasma glucose concentrations meet or exceed the following levels: fastin mg/dl, 1 hr: 180 mg/dl, 2 hr: 155 mg/dl, and 3 hr: 140 mg/dl. Performed By: #### 6 30-4 #### [facility] CLIA [id number] [address] [place] [address] [place] OB Triage Physician Noteon 1 OB Triage Physician Note [facility] Medical Records Department [address] [place] [address] OB Triage Physician Note 03/14/25 1247 MR#: [id number] Acct: [id number] Name: PAL NICHOLAS Rep #: [id number] : 2005 19 From: Patsy March CNM PCP: Care Physician,No Primary Status:DEP CLI Y Location: WPOUT HPI - General General Date of Service: 03/13/25 HPI Narrative PAL NICHOLAS, is a 19 F who presents [ at 28w5d presents for decreased movement, tachycrdia and possible rupture of membranes. Has history of POTS and noticed tachycardia to 111. ] Maternal Data Information AMARI Calculator Estimated Delivery Date Method Current WG Current Estimate 05/31/25 Manual 28w 6d PFSH [facility] Medical History (Updated 03/14/25 @ 12:49 by Patsy March CNM) POTS (postural orthostatic tachycardia syndrome) Myles-Danlos syndrome Home Medications ???Medication ???Instructions ???Recorded ???Last Taken ???Type aspirin 81 mg capsule 81 mg PO DAILY 02/02/25 03/12/25 1 9:00 History vit no.95-ferrous 1 tab PO DAILY 02/02/25 03/12/25 1 9:00 History fumarate 28 mg-folic acid 800 mcg tablet () Allergy/AdvReac Type Severity Reaction Status Date / Time No Known Allergies Allergy Verified 03/13/25 16:53 Social History Smoking Status: Never smoker History 1 Elective abortions Hx Para 0 Spontaneous abortions Hx # Term Pregnancies Ectopic pregnancies Hx # Pregnancies Multiple births # of living children NST FHR Rate Baby A Baseline: 135 Variability:: Moderate Accelerations:: 15 x 15 Decelerations:: None NST Reactive:: Yes Uterine Activity:: none Assessment Plan (1) Decreased movement: PLAN: Plan No signs of labor, ROM plus negative POTS syndrome, to follow up with cardiology, stable at this time reactive NST D/C home 03/14/25 1249 Date Patsy March [facility] Cosigner Signature (if applicable): Date _ CC: [facility] Patsy March; No Primary Care Physician Signed Normal [facility] Rupture Of Membraneson 03-13-2025 ROM Negative Normal Negative [facility] Comment on above: Result Comment: Amni otic fluid not present indicates No Rupture of Membranes at time of specimen collection. Performed By: #### L 205.1000 #### [facility] [address] [facility] [place], [address] BACTERIAL VAGINOSIS NAATon 1 Lactobacillus crispatus+gasseri+muniz ii + Gardnerella vaginalis + Atopobium vaginae rRNA JHON+probe Ql (Vag fld) Not detected Normal Not detected [facility] Comment on above: Order Comment: Speci men Type: SWABOrdering Facility: [facility] Address: [address] [place] [address] Performed By: #### AAYUSH OROZCO ####[facility] LABCLIA [id number] [place] [address] [place] PARVEEN/TRICHOMONAS NAATon 1 C. glabrata RNA JOHN+probe Ql (Vag fld) Not detected Normal Not detected [facility] Comment on above: Order Comment: Speci men Type: SWABOrdering Facility: [facility] Address: [address] [place] [address] Performed By: #### B VAMP, CVTV ####[facility] LABCLIA [id number] [place] [address] [place] Parveen sp DNA JOHN+probe Ql (Vag fld) Not detected Normal Not detected [facility] Comment on above: Order Comment: Speci men Type: SWABOrdering Facility: [facility] Address: [address] [place] [address] Result Comment: The Parveen species group target includes C. albicans, C. tropicalis, C. parapsilosis, and C. dubliniensis. Performed By: #### B VAMP, CVTV ####[facility] LABCLIA [id number] [place] [address] [place] T. vaginalis DNA JOHN+probe Ql (Unsp spec) Not detected Normal Not detected [facility] Comment on above: Order Comment: Speci men Type: SWABOrdering Facility: [facility] Address: [address] [place] [address] Performed By: #### Helder VAMP, CVTV ####[facility] LABCLIA [id number] [place] [address] [place] CBC panel Auto (Bld)on 03-11 Erythrocyte distribution width (RBC) [Ratio] 13.2 % Normal 11.5-15.0 [facility] Comment on above: Order Comment: Speci men Type: BLOOD SPECIMENOrdering Facility: [facility] Address: [address] [place] [address] Performed By: #### 5 8410-2 ####[facility] [id number] [place] [address] [place] Hematocrit (Bld) [Volume fraction] 32.7 % Low 36.0-46.0 [facility] Comment on above: Order Comment: Speci men Type: BLOOD SPECIMENOrdering Facility: [facility] Address: [address] [place] [address] Performed By: #### 5 8410-2 ####[facility] ANNELIA [id number] [place] [address] [place] Hemoglobin (Bld) [Mass/Vol] 11.7 g/dL Normal 11.5-15.5 [facility] Comment on above: Order Comment: Speci men Type: BLOOD SPECIMENOrdering Facility: [facility] Address: [address] [place] [address] Performed By: #### 5 8410-2 ####[facility] [id number] [place] [address] [place] MCH (RBC) [Entitic mass] 31.7 pg Normal 26.0-34.0 [facility] Comment on above: Order Comment: Speci men Type: BLOOD SPECIMENOrdering Facility: [facility] Address: [address] [place] [address] Performed By: #### 5 8410-2 ####[facility] [id number] [place] [address] [place] MCHC (RBC) [Mass/Vol] 35.8 g/dL Normal 30.5-36.0 [facility] Comment on above: Order Comment: Speci men Type: BLOOD SPECIMENOrdering Facility: [facility] Address: [address] [place] [address] Performed By: #### 5 8410-2 ####[facility] JANNETTEPOWELLTONGIORGILIA [id number] [place] [address] [place] MCV (RBC) [Entitic vol] 88.6 fL Normal 80.0-100.0 C [facility] Comment on above: Order Comment: Speci men Type: BLOOD SPECIMENOrdering Facility: [facility] Address: [address] [place] [address] Performed By: #### 5 8410-2 ####[facility] [id number] [place] [address] [place] Nucleated RBC (Bld) [#/Vol] 10*3/uL Normal <0.01 [facility] Comment on above: Order Comment: Speci men Type: BLOOD SPECIMENOrdering Facility: [facility] Address: [address] [place] [address] Performed By: #### 5 8410-2 ####[facility] [id number] [place] [address] [place] Platelet mean volume (Bld) [Entitic vol] 9.5 fL Normal 9.0-12.7 [facility] Comment on above: Order Comment: Speci men Type: BLOOD SPECIMENOrdering Facility: [facility] Address: [address] [place] [address] Performed By: #### 5 8410-2 ####[facility] [id number] [place] [address] [place] Platelets (Bld) [#/Vol] 244 10*3/uL Normal 150-400 [facility] Comment on above: Order Comment: Speci men Type: BLOOD SPECIMENOrdering Facility: [facility] Address: [address] [place] [address] Performed By: #### 5 8410-2 ####[facility] [id number] [place] [address] [place] RBC (Bld) [#/Vol] 3.69 10*6/uL Low 3.90-5.20 [facility] Comment on above: Order Comment: Speci men Type: BLOOD SPECIMENOrdering Facility: [facility] Address: [address] [place] [address] Performed By: #### 5 8410-2 ####[facility] [id number] [place] [address] [place] WBC (Bld) [#/Vol] 11.16 10*3/uL High 3.70-11.00 [facility] Comment on above: Order Comment: Speci men Type: BLOOD SPECIMENOrdering Facility: [facility] Address: [address] [place] [address] Performed By: #### 5 8410-2 ####[facility] [id number] [place] [address] [place] GESTATIONAL GLUCOSE SCREEN, 1-HOUR, 50 GRAM, NON-FASTINGon 03-11-2025 Glucose [Mass/Vol] 152 mg/dL High 74-134 [facility] Comment on above: Order Comment: Speci men Type: BLOOD SPECIMENOrdering Facility: [facility] Address: [address] [place] [address] Result Comment: [facility] Congress of Obstetricians and Gynecologists (Ashish/Niko) guidelines state a gestational diabetes mellitus positive screen is made, in women not previously diagnosed with overt diabetes, when the 1 hr plasma glucose level is equal to or above 140 mg/dL. The [facility] Rep and [facility] recommends a 135 mg/dL cutoff. Performed By: #### G LTGST ####[facility] [id number] [place] [address] [place] MYCOPLASMA GENITALIUM NAATon 03-11-2025 M. genitalium DNA JOHN+probe Ql (U) Not detected Normal Not detected [facility] Comment on above: Order Comment: Speci men Type: URINE SPECIMENOrdering Facility: [facility] Address: [address] [place] [address] Performed By: #### M YGAMP ####[facility] LABCLIA [id number] [place] [address] [place] Reagin and Treponema pallidu m IgG and IgM [Interp]on 03-11-2025 T. pallidum IgG+IgM IA Ql (S) Non-Reactive Normal Nonreactive [facility] Comment on above: Order Comment: Speci men Type: BLOOD SPECIMENOrdering Facility: [facility] Address: [address] [place] [address] Performed By: #### 6 30-4 #### [facility] CLIA [id number] [address] [place] [address] [place] Reagin+T pallidum IgG+IgM Se rPl-Impon 03-11-2025 Reagin and Treponema pallidum IgG and IgM [Interp] Cannot exclude recent Treponemal infection if specimen collected within 7-10 days after appearance of suspect lesions or 2-3 weeks after an exposure. Clinical correlation is required. Normal [facility] Comment on above: Order Comment: Speci men Type: BLOOD SPECIMENOrdering Facility: [facility] Address: [address] [place] [address] Performed By: #### 6 30-4 #### [facility] CLIA [id number] [address] [place] [address] [place] TYPE + SCREEN PRENATALon ABO O Normal [facility] Comment on above: Order Comment: Speci men Type: BLOOD SPECIMENOrdering Facility: [facility] Address: [address] [place] [address] Performed By: #### T SPN ####[facility] LABCLIA [id number] [place] [address] [place] Rh Nom (Bld) Negative Normal [facility] Comment on above: Order Comment: Speci men Type: BLOOD SPECIMENOrdering Facility: [facility] Address: [address] [place] [address] Performed By: #### T SPN ####[facility] LABCLIA [id number] [place] [address] [place] TYPE AND SCREEN EXPIRATION 03/14/2025 23:59 Normal [facility] Comment on above: Order Comment: Speci men Type: BLOOD SPECIMENOrdering Facility: [facility] Address: [address] [place] [address] Performed By: #### T SPIrving ####[facility] LABCLIA [id number] [address] [facility] CNOVon 03-08-2025 CNOV Office Visit (AGCARDHWG) PAL NICHOLAS Radha ([id number]) 3 F Date Time Provider Department 03/08/25 [...] provider ID). REFERRING PHYSICIAN: Lynnette [address] [facility] [address] CHIEF COMPLAINT: Abnormal EKG HISTORY OF PRESENT [...] of illicit drugs. 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 She has 1 other sibling. She is here in the office with her mom. Paternal grandfather suddenly at age 49. 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 She is not sure if she had genetic testing. 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 Nontender. EXTREMETIES: No peripheral edema. Grade [...] Noteon 0 02-23-2025 OB Triage Physician Note [facility] Medical Records Department [address] [place] [address] OB Triage Physician Note 02/23/252054 MR#: [id number] Acct: [id number] Name: PAL NICHOLAS Rep #: [id number] : 2005 19 From: Lester Phillips MD PCP: Care Physician,No Primary Status:REG CLI Y Location: MU233-5 HPI - General General Date of Service: 02/23/25 HPI Narrative PAL NICHOLAS, is a 19 F who presents back pain, side pain and some contractions. Maternal Data Information AMARI Calculator Estimated Delivery Date Method Current WG Current Estimate 05/31/25 Manual 26w 1d PFSH [facility] Medical History (Updated 02/23/25 @ 20:56 by [...] Phillips MD; No Primary Care Physician Signed [facility] 02-22-2025 [facility] Telephone (GYURWP) PAL NICHOLAS ([id number]) 3 F Date Time Provider Department 02/22/25 KARI JOHNSTON GYURWP During your visit today, we recorded the following information about you: Deep Owen RN 02/22/2025 11:09 AM Signed Called patient in regards to catheter supplies per request of Kari Nguyen MD P [facility] Clinical Pool; P [facility] Schedulers Pool I placed an order for [...] Encounter Status:Closed by DEEP OWEN on 02/22/25 [facility] CNOVon 02-18-2025 CNOV Office Visit (GYKARSTEN) SARAHY PAL KAUR ([id number]) 3 F Date Time Provider Department 02/18/25 11:30 AM KARI JOHNSTON During your visit today, we recorded the following information about you: Weight 80.8 kg Kari Johnston MD 02/18/2025 1:16 PM Signed Female Pelvic Medicine AND Reconstructive Surgery Consult Recording using Boundary software for draft documentation of the visit was discussed with the patient/authorized payable representative; all questions welcomed and answered. Patient/authorized payable representative agreed to proceed CHIEF COMPLAINT: Pal Weathers Leroy is a 19 year old female who [...] Hematological: Nega (more content not included)... Normal [facility] 02-16-2025 [facility] Telephone (AKPOB) PAL NICHOLAS ([id number]) 3 F Date Time Provider Department 02/16/25 CLEM SAAVEDRA During your visit today, we recorded the [...] Encounter Status:Closed by CLEM SAAVEDRA on 02/16/25 [facility] 02-15-2025 [facility] NICHOLAS ([id number]) 3 F Date Time Provider Department 02/15/25 CLEM SAAVEDRA During your visit today, we recorded the [...] Allergies) Date Reviewed: 02/13/2025 Reviewed by: Ronald Cooper, RN - Fully Assessed Prescriptions as of [...] Light [facility] Bacteria Ur Culton Bacteria identified Cx Nom (U) CULTURE, URINE: No growth (<100 CFU/ml) Normal [facility] Comment on above: Performed By: #### 6 30-4, 68446-6 #### [facility] CLIA [id number] [address] [facility] OB Triage Physician Noteon 0 02-13-2025 OB Triage Physician Note [facility] Medical Records Department [address] [place] [address] OB Triage Physician Note 02/13/25 2321 MR#: [id number] Acct: [id number] Name: PAL NICHOLAS Rep #: [id number] : 2005 19 From: Magda Aragon MD PCP: Care Physician,No Primary Status:DEP CLI Y Location: [facility] - General General Date of Service: 02/13/25 Chief Complaint: pain HPI Narrative PAL NICHOLAS, is a 19 F who presents with bladder pain and unable to void. Was in Triage at [facility] early and had straight cath for [...] MD; No Primary Care Physician Signed Normal [facility] Urinalysis complete panel (U )on 02-13-2025 Bilirubin Ql (U) Negative Normal Negative [facility] Comment on above: Order Comment: Speci men Type: URINE SPECIMEN Ordering Facility: [facility] Address: [address] [place] [address] Performed By: #### 6 30-4, 96705-2 #### [facility] CLIA [id number] [address] Clarity (Unsp spec) Clear Normal Clear [facility] Comment on above: Order Comment: Speci men Type: URINE SPECIMEN Ordering Facility: [facility] Address: [address] [place] [address] Performed By: #### 6 30-4, 76396-8 #### [facility] CLIA [id number] [address] Color (U) Light Yellow Normal yellow [facility] Comment on above: Order Comment: Speci men Type: URINE SPECIMEN Ordering Facility: [facility] Address: [address] [place] [address] Performed By: #### 6 30-4, 84459-6 #### [facility] CLIA [id number] [address] Epithelial cells LM.HPF (Urine sed) [#/Area] Few Abnormal None Seen [facility] Comment on above: Order Comment: Speci men Type: URINE SPECIMEN Ordering Facility: [facility] Address: [address] [place] [address] Performed By: #### 6 30-4, 08601-9 #### [facility] CLIA [id number] [address] [place] Glucose Test strip (U) [Mass/Vol] Negative Normal Trace, Negative [facility] Comment on above: Order Comment: Speci men Type: URINE SPECIMEN Ordering Facility: [facility] Address: [address] [place] [address] Performed By: #### 6 30-4, 29714-4 #### [facility] CLIA [id number] [address] [place] Hemoglobin Ql (U) Negative Normal Negative, Trace [facility] Comment on above: Order Comment: Speci men Type: URINE SPECIMEN Ordering Facility: [facility] Address: [address] [place] [address] Performed By: #### 6 30-4, 02300-2 #### [facility] CLIA [id number] [address] Ketones Ql (U) Negative Normal Negative, Trace [facility] Comment on above: Order Comment: Speci men Type: URINE SPECIMEN Ordering Facility: [facility] Address: [address] [place] [address] Performed By: #### 6 30-4, 61907-6 #### [facility] CLIA [id number] [address] Leukocyte esterase Test strip Ql (U) 75 Maryann/uL Abnormal Negative, 25 Maryann/uL [facility] Comment on above: Order Comment: Speci men Type: URINE SPECIMEN Ordering Facility: [facility] Address: [address] [place] [address] Performed By: #### 6 30-4, 34497-3 #### [facility] CLIA [id number] [address] [facility] Nitrite Ql (U) Negative Normal Negative [facility] Comment on above: Order Comment: Speci men Type: URINE SPECIMEN Ordering Facility: [facility] Address: [address] [place] [address] Performed By: #### 6 304, 66656-0 #### [facility] CLIA [id number] [address] [place] pH (U) 7.0 [pH] Normal 5.0-8.0 [facility] Comment on above: Order Comment: Speci men Type: URINE SPECIMEN Ordering Facility: [facility] Address: [address] [place] [address] Performed By: #### 6 30-4, 84448-9 #### [facility] CLIA [id number] [address] [place] Protein (U) [Mass/Vol] Negative Normal Trace , Negative [facility] Comment on above: Order Comment: Speci men Type: URINE SPECIMEN Ordering Facility: [facility] Address: [address] [place] [address] Performed By: #### 6 30-4, 73467-1 #### [facility] CLIA [id number] [address] RBC LM.HPF (Urine sed) [#/Area] 0-3 /HPF Normal 0-3 /HPF [facility] Comment on above: Order Comment: Speci men Type: URINE SPECIMEN Ordering Facility: [facility] Address: [address] [place] [address] Performed By: #### 6 30-4, 00572-3 #### [facility] CLIA [id number] [address] Specific gravity (U) [Rel density] 1.019 Normal 1.005-1.030 [facility] Comment on above: Order Comment: Speci men Type: URINE SPECIMEN Ordering Facility: [facility] Address: [address] [place] [address] Performed By: #### 6 30-4, 97077-0 #### [facility] CLIA [id number] [address] Urobilinogen Ql (U) Normal Normal Normal [facility] Comment on above: Order Comment: Speci men Type: URINE SPECIMEN Ordering Facility: [facility] Address: [address] [place] [address] Performed By: #### 6 30-4, 30764-1 #### [facility] CLIA [id number] [address] WBC LM.HPF (Urine sed) [#/Area] 11-25 /HPF Abnormal 0-5 /HPF [facility] Comment on above: Order Comment: Speci men Type: URINE SPECIMEN Ordering Facility: [facility] Address: [address] [place] [address] Performed By: #### 6 30-4, 70057-7 #### [facility] CLIA [id number] 1 [place] [address] [place] BACTERIAL VAGINOSIS NAATon 0 02-08-2025 Interpretation and review of laboratory results Normal [facility] Lactobacillus crispatus+gasseri+muniz ii + Gardnerella vaginalis + Atopobium vaginae rRNA JOHN+probe Ql (Vag fld) Not detected Not detected [facility] Lactobacillus crispatus+gasseri+muniz ii + Gardnerella vaginalis + Atopobium vaginae rRNA JOHN+probe Ql (Vag fld) Not detected Normal Not detected [facility] Comment on above: Order Comment: Speci men Type: SWABOrdering Facility: [facility] Address: [address] [place] [address] Performed By: #### 6 30-4 #### [facility] CLIA [id number] [address] [place] [address] [place] Bacteria Ur Culton Bacteria identified Cx Nom (U) CULTURE, URINE: No growth (<1,000 CFU/ml) Normal [facility] Comment on above: Performed By: #### 6 30-4 #### [facility] CLIA [id number] [address] [place] [address] [place] PARVEEN/TRICHOMONAS NAATon 0 02-08-2025 C. glabrata RNA JOHN+probe Ql (Vag fld) Not detected Not detected [facility] Parveen sp DNA JOHN+probe Ql (Vag fld) Not detected Not detected [facility] Comment on above: The Parveen species group target includes C. albicans, C. tropicalis, C. parapsilosis, and C. dubliniensis. Interpretation and review of laboratory results Normal [facility] T. vaginalis DNA JOHN+probe Ql (Unsp spec) Not detected Not detected [facility] C. glabrata RNA JOHN+probe Ql (Vag fld) Not detected Normal Not detected [facility] Comment on above: Order Comment: Speci men Type: SWABOrdering Facility: [facility] Address: [address] [place] [address] Performed By: #### 6 30-4 #### [facility] CLIA [id number] [address] [place] [address] [place] Parveen sp DNA JOHN+probe Ql (Vag fld) Not detected Normal Not detected [facility] Comment on above: Order Comment: Speci men Type: SWABOrdering Facility: [facility] Address: [address] [place] [address] Result Comment: The Parveen species group target includes C. albicans, C. tropicalis, C. parapsilosis, and C. dubliniensis. Performed By: #### 6 30-4 #### [facility] CLIA [id number] [address] [place] [address] [place] T. vaginalis DNA JOHN+probe Ql (Unsp spec) Not detected Normal Not detected [facility] Comment on above: Order Comment: Speci men Type: SWABOrdering Facility: [facility] Address: [address] [place] [address] Performed By: #### 6 30-4 #### [facility] CLIA [id number] [address] [place] [address] [place] UA DIP, URINE (POC)on 2024 BILIRUBIN UA (POCT) Negative Negative [facility] CLARITY UA (POCT) Clear [facility] COLOR UA (POCT) Yellow [facility] GLUCOSE UA (POCT) Negative Negative mg/dL [facility] Hemoglobin Ql (U) Negative Negative [facility] KETONE UA (POCT) Negative Negative mg/dL [facility] LEUKOCYTES UA (POCT) Negative Negative [facility] NITRITE UA (POCT) Negative Negative [facility] PH UA (POCT) 7.0 4.5 - 8.0 [facility] Protein Ql (U) Negative Negative mg/dL [facility] SPECIFIC GRAVITY UA (POCT) 1.010 1.005 - 1.030 [facility] UROBILINOGEN UA (POCT) 0.2 Normal E.U./d L [facility] Location:[facility], [address] , [place], [place], [address] [place] [address] POINT OF CARE [facility] Urine Cultureon 02-06-2025 URC Culture exhibits no growth. Normal [facility] Comment on above: Performed By: #### L 500.4050 #### [facility] [address] [place], [address] CNPNon 02-05-2025 CNPN Telephone (OBGYWM) PAL NICHOLAS ([id number]) 3 F Date Time Provider Department 02/05/25 LYNNETTE TAPIA OBGYWM During your visit today, [...] of fluid. Patient advised to go to [facility] for evaluation. [facility] notified. Jocelyne Black RN Allergies As of [...] Status:Closed by JOCELYNE BLACK on 02/05/25 Normal [facility] OB Triage Physician Noteon 0 02-05-2025 OB Triage Physician Note [facility] Medical Records Department [address] [place] [address] OB Triage Physician Note 02/05/25 1742 MR#: [id number] Acct: [id number] Name: PAL NICHOLAS Rep #: [id number] : 2005 19 From: Lynnette Tapia CNM PCP: Care Physician,No Primary Status:REG CLI Y Location: [id number] HPI - General General Chief Complaint: ctx's HPI Narrative PAL NICHOLAS, is a 19 F at 23 weeks gestation who presents back to triage for cramping. Seen and evaluated last night in triage and started on Macrobid 100 mg PO BID for UTI. Maternal Data Information AMARI Calculator Estimated Delivery Date Method Current WG Current Estimate 05/31/25 Manual 23w 4d PFSH PFS Medical History (Updated 02/05/25 @ 00:00 by [...] Suprapubic pain: (3) History of UTI: (4) Portage Zaragoza' contraction: COMMENT: cervix closed (5) 23 weeks gestation of : PLAN: Plan Positive movements Increase fluids CE - closed/ unchanged Continue taking Macrobid 100 mg Po BID- did not take dose today D/C home with follow up in office 02/05/25 8321 Date Lynnette Sandoval Signature (if applicable): Date _ CC: HUMPHREY Tapia; No Primary Care Physician Signed Normal [facility] Bilirubin Test strip Ql (U)O rdered By: Ramakrishna Corley on 02-04-2025 Bilirubin Ql (U) Negative Negative [facility] Ketones Test strip Ql (U)Ord ered By: Ramakrishna Corley on 02-04-2025 Ketones Ql (U) Negative Negative [facility] Nitrite Test strip Ql (U)Ord ered By: Ramakrishna Corley on 02-04-2025 Nitrite Ql (U) Negative Negative [facility] OB Triage Physician Noteon 0 02-04-2025 OB Triage Physician Note [facility] Medical Records Department [address] [place] [address] OB Triage Physician Note 02/04/25 2355 MR#: [id number] Acct: [id number] Name: PAL NICHOLAS Rep #: [id number] : 2005 19 From: Ramakrishna Corley DO PCP: Care Physician,No Primary Status:REG CLI Y Location: [address] Date of Service: 02/04/25 Chief Complaint: ctx's HPI Narrative PAL NICHOLAS, is a 19 F who presents ctx's. She states she has had contractions and abdominal pain for 1-2 weeks. Went to [facility] 2 weeks ago for this and had [...] vb or lof. No constipation or diarrhea. [facility] Medical History (Updated 02/05/25 @ 00:00 by [...] (1) 23 weeks gestation of : (2) [place] Zaragoza' contraction: COMMENT: cervix closed PLAN: Cervix [...] (if applicable): Date _ CC: Dr. Ramakrishna Corley DO; No Primary Care Physician Signed Normal [facility] Protein Test strip Ql (U)Ord ered By: Ramakrishna Corley on 02-04-2025 Protein Ql (U) Negative Negative [facility] Urinalysis, Routine (Dipstic k)on 02-04-2025 BILIRUBIN URINE Negative Normal Negative [facility] Comment on above: Order Comment: CLEAN CATCH Performed By: #### L 400.2010 #### [facility] [address] [place], [address] Clarity (U) Clear Normal Clear [facility] Comment on above: Order Comment: CLEAN CATCH Performed By: #### L 400.2010 #### [facility] [address] [place], [address] Color (U) Yellow Normal Yellow [facility] Comment on above: Order Comment: CLEAN CATCH Performed By: #### L 400.2010 #### [facility] [address] [place], [address] GLUCOSE, UR Normal Normal Normal [facility] Comment on above: Order Comment: CLEAN CATCH Performed By: #### L 400.2010 #### [facility] [address] [place], [address] KETONE UR Negative Normal Negative [facility] Comment on above: Order Comment: CLEAN CATCH Performed By: #### L 400.2010 #### [facility] [address] [place], [address] LEUK ESTERASE 25 /ul Abnormal Negative [facility] Comment on above: Order Comment: CLEAN CATCH Performed By: #### L 400.2010 #### [facility] [address] [place], [address] Nitrite Ql (U) Negative Normal Negative [facility] Comment on above: Order Comment: CLEAN CATCH Performed By: #### L 400.2010 #### [facility] [address] [place], [address] OCCULT BLOOD-UR Negative Normal Negative [facility] Comment on above: Order Comment: CLEAN CATCH Performed By: #### L 400.2010 #### [facility] [address] [place], [address] pH UR 6.5 Normal 5.0 - 8.0 [facility] Comment on above: Order Comment: CLEAN CATCH Performed By: #### L 400.2010 #### [facility] [address] [place], [address] PROT DIPSTX Negative Normal Negative [facility] Comment on above: Order Comment: CLEAN CATCH Performed By: #### L 400.2010 #### [facility] [address] [place], [address] SP.GR. DIPSTX 1.015 Normal 1.002-1.030 [facility] Comment on above: Order Comment: CLEAN CATCH Performed By: #### L 400.2010 #### [facility] [address] [place], [address] UROBILI Normal Normal Normal [facility] Comment on above: Order Comment: CLEAN CATCH Performed By: #### L 400.2010 #### [facility] [address] [place], [address] Urine Cultureon 02-04-2025 URC Culture exhibits no growth. Normal [facility] Comment on above: Performed By: #### L 500.4050 #### [facility] [address] [place], [address] Urine clarityOrdered By: Benjamin Corley on 02-04-2025 Clarity (U) Clear Clear [facility] Urine color determinationOrd ered By: Ramakrishna Corley on 02-04-2025 Color (U) Yellow Yellow [facility] Urine cultureOrdered By: Benjamin Corley on 02-04-2025 Bacteria identified Cx Nom (U) Culture exhibits no growth. [facility] Urine glucose detectionOrder ed By: Ramakrishna Corley on 02-04-2025 Glucose Ql (U) Normal mg/dl Normal [facility] Urine leukocyte esterase det ection by dipstickOrdered By: Ramakrishna Corley on 02-04-2025 Leukocyte esterase Test strip Ql (U) 25 /ul High Negative [facility] Urine pHOrdered By: Ramakrishna mcpherson on 02-04-2025 pH (U) 6.5 [pH] 5.0 - 8.0 [facility] Urine specific gravity measu rementOrdered By: Ramakrishna Corley on 02-04-2025 Specific gravity (U) [Rel density] 1.015 1.002-1.030 [facility] Urine urobilinogen measureme ntOrdered By: Ramakrishnakunal Corley on 02-04-2025 Urobilinogen Ql (U) Normal mg/dl Normal [facility] Bilirubin Test strip Ql (U)O rdered By: Magda Aragon on 02-02-2025 Bilirubin Ql (U) Negative Negative [facility] Ketones Test strip Ql (U)Ord ered By: Magda Aragon on 02-02-2025 Ketones Ql (U) Negative Negative [facility] Microscopic analysis of urin e for red blood cells (RBC)Ordered By: Magda Aragon on 02-02-2025 Microscopic analysis of urine for red blood cells (RBC) 0 SEEN /hpf 0-5 [facility] Mucus LM Ql (Urine sed)Order ed By: Magda Aragon on 02-02-2025 Mucus Ql (Urine sed) 0 SEEN /hpf [facility] Nitrite Test strip Ql (U)Ord ered By: Magda Aragon on 02-02-2025 Nitrite Ql (U) Negative Negative [facility] OB Triage Physician Noteon 0 02-02-2025 OB Triage Physician Note [facility] Medical Records Department [address] [place] [address] OB Triage Physician Note 02/02/25 2336 MR#: [id number] Acct: [id number] Name: PAL NICHOLAS Rep #: [id number] : 2005 19 From: Magda Aragon MD PCP: Care Physician,No Primary Status:REG CLI Y Location: [id number] HPI - General General Date of Admission: 02/02/25 Date of Service: 02/02/25 Chief Complaint: cramping HPI Narrative PAL NICHOLAS, is a 19 F who presents cramping. No bleeding. Some movement. Was seen in office today with normal discharge. Maternal Data Information Final AMARI: 05/31/25 Gestational age: 22 PFSH [facility] Medical History (Updated 02/02/25 @ 23:38 by [...] (1) 23 weeks gestation of : (2) [place] Zaragoza' contraction: COMMENT: cervix closed 02/02/25 7748 Date Magda Aragon MD Cosigner Signature (if applicable): Date _ CC: Dr. Magda Aragon MD; No Primary Care Physician Signed Normal [facility] Protein Test strip Ql (U)Ord ered By: Magda Aragon on 02-02-2025 Protein Ql (U) 15 mg/dl High Negative [facility] Squamous epithelial cells de tection in urine sediment by light microscopyOrdered By: Magda Aragon on 02-02-2025 Epithelial cells.squamous LM Ql (Urine sed) 0-5 SEEN /hpf 5-10 [facility] UA DIP, URINE (POC)on 2024 BILIRUBIN UA (POCT) Negative Negative [facility] CLARITY UA (POCT) Clear [facility] COLOR UA (POCT) Yellow [facility] GLUCOSE UA (POCT) Negative Negative mg/dL [facility] Hemoglobin Ql (U) Negative Negative [facility] KETONE UA (POCT) Negative Negative mg/dL [facility] LEUKOCYTES UA (POCT) Negative Negative [facility] NITRITE UA (POCT) Negative Negative [facility] PH UA (POCT) 7.0 4.5 - 8.0 [facility] Protein Ql (U) Negative Negative mg/dL [facility] SPECIFIC GRAVITY UA (POCT) 1.010 1.005 - 1.030 [facility] UROBILINOGEN UA (POCT) 0.2 Normal E.U./d L [facility] Location:[facility], [address], [place], [address] [facility] POINT OF CARE [facility] Urinalysis, Completeon 02-02 EPI,SQUAMOUS 0-5 SEEN Normal 5-10 [facility] Comment on above: Order Comment: CLEAN CATCH Performed By: #### L 400.0001 #### [facility] [address] [place], [address] BACTERIA 0 SEEN Normal None Seen [facility] Comment on above: Order Comment: CLEAN CATCH Performed By: #### L 400.0001 #### [facility] [address] [place], [address] Mucus Ql (Urine sed) 0 SEEN Normal [facility] Comment on above: Order Comment: CLEAN CATCH Performed By: #### L 400.0001 #### [facility] [address] [place], [address] RBC 0 SEEN Normal 0-5 [facility] Comment on above: Order Comment: CLEAN CATCH Performed By: #### L 400.0001 #### [facility] [address] [place], [address] WBC 0 SEEN Normal 0-5 [facility] Comment on above: Order Comment: CLEAN CATCH Performed By: #### L 400.0001 #### [facility] [address] [place], [address] BACTERIA Normal None Seen [facility] Comment on above: Order Comment: MINOO CTOR TO SPECIFY Result Comment: Canc elled via OM: Order edited - Discontinuing original order Performed By: #### L 400.0001 #### [facility] [address] [place], [address] BILIRUBIN URINE Normal Negative [facility] Comment on above: Order Comment: COLLE CTOR TO SPECIFY Result Comment: Canc elled via OM: Order edited - Discontinuing original order Performed By: #### L 400.0001 #### [facility] [address] [place], [address] Clarity (U) Normal Clear [facility] Comment on above: Order Comment: MINOO CTOR TO SPECIFY Result Comment: Canc elled via OM: Order edited - Discontinuing original order Performed By: #### L 400.0001 #### [facility] [address] [place], [address] Color (U) Normal Yellow [facility] Comment on above: Order Comment: MINOO CTOR TO SPECIFY Result Comment: Canc elled via OM: Order edited - Discontinuing original order Performed By: #### L 400.0001 #### [facility] [address] [place], [address] EPI,SQUAMOUS Normal 5-10 [facility] Comment on above: Order Comment: MINOO CTOR TO SPECIFY Result Comment: Canc elled via OM: Order edited - Discontinuing original order Performed By: #### L 400.0001 #### [facility] [address] [place], [address] GLUCOSE, UR Normal Normal [facility] Comment on above: Order Comment: MINOO CTOR TO SPECIFY Result Comment: Canc elled via OM: Order edited - Discontinuing original order Performed By: #### L 400.0001 #### [facility] [address] [place], [address] KETONE UR Normal Negative [facility] Comment on above: Order Comment: COLLE CTOR TO SPECIFY Result Comment: Canc elled via OM: Order edited - Discontinuing original order Performed By: #### L 400.0001 #### [facility] [address] [place], [address] LEUK ESTERASE Normal Negative [facility] Comment on above: Order Comment: COLLE CTOR TO SPECIFY Result Comment: Canc elled via OM: Order edited - Discontinuing original order Performed By: #### L 400.0001 #### [facility] [address] [place], [address] Mucus Ql (Urine sed) Normal [facility] Comment on above: Order Comment: COLLE CTOR TO SPECIFY Result Comment: Canc elled via OM: Order edited - Discontinuing original order Performed By: #### L 400.0001 #### [facility] [address] [place], [address] Nitrite Ql (U) Normal Negative [facility] Comment on above: Order Comment: COLLE CTOR TO SPECIFY Result Comment: Canc elled via OM: Order edited - Discontinuing original order Performed By: #### L 400.0001 #### [facility] [address] [place], [address] OCCULT BLOOD-UR Normal Negative [facility] Comment on above: Order Comment: COLLE CTOR TO SPECIFY Result Comment: Canc elled via OM: Order edited - Discontinuing original order Performed By: #### L 400.0001 #### [facility] [address] [place], [address] pH UR Normal 5.0 - 8.0 [facility] Comment on above: Order Comment: COLLE CTOR TO SPECIFY Result Comment: Canc elled via OM: Order edited - Discontinuing original order Performed By: #### L 400.0001 #### [facility] [address] [place], [address] PROT DIPSTX Normal Negative [facility] Comment on above: Order Comment: COLLE CTOR TO SPECIFY Result Comment: Canc elled via OM: Order edited - Discontinuing original order Performed By: #### L 400.0001 #### [facility] [address] [place], [address] RBC Normal 0-5 [facility] Comment on above: Order Comment: COLLE CTOR TO SPECIFY Result Comment: Canc elled via OM: Order edited - Discontinuing original order Performed By: #### L 400.0001 #### [facility] [address] [place], [address] SP.GR. DIPSTX Normal 1.002-1.030 [facility] Comment on above: Order Comment: COLLE CTOR TO SPECIFY Result Comment: Canc elled via OM: Order edited - Discontinuing original order Performed By: #### L 400.0001 #### [facility] [address] [place], [address] UR Preservative Normal [facility] Comment on above: Order Comment: COLLE CTOR TO SPECIFY Result Comment: Canc elled via OM: Order edited - Discontinuing original order Performed By: #### L 400.0001 #### [facility] [address] [place], [address] UROBILI Normal Normal [facility] Comment on above: Order Comment: COLLE CTOR TO SPECIFY Result Comment: Canc elled via OM: Order edited - Discontinuing original order Performed By: #### L 400.0001 #### [facility] [address] [place], [address] WBC Normal 0-5 [facility] Comment on above: Order Comment: COLLE CTOR TO SPECIFY Result Comment: Canc elled via OM: Order edited - Discontinuing original order Performed By: #### L 400.0001 #### [facility] [address] [place], [address] Urine clarityOrdered By: Jazmin Aragon on 02-02-2025 Clarity (U) Clear Clear [facility] Urine color determinationOrd ered By: Magda Aragon on 02-02-2025 Color (U) Straw Yellow [facility] Urine cultureOrdered By: Jazmin Aragon on 02-02-2025 Bacteria identified Cx Nom (U) Culture exhibits no growth. [facility] Urine glucose detectionOrder ed By: Magda Aragon on 02-02-2025 Glucose Ql (U) Normal mg/dl Normal [facility] Urine leukocyte esterase det ection by dipstickOrdered By: Magda Aragon on 02-02-2025 Leukocyte esterase Test strip Ql (U) Negative Negative [facility] Urine pHOrdered By: Magda Aragon on 02-02-2025 pH (U) 7.0 [pH] 5.0 - 8.0 [facility] Urine sediment bacteria coun t by microscopy (number/high power field)Ordered By: Magda Aragon on 02-02-2025 Bacteria LM.HPF (Urine sed) [#/Area] 0 /[HPF] None Seen [facility] Urine specific gravity measu rementOrdered By: Magda Aragon on 02-02-2025 Specific gravity (U) [Rel density] 1.010 1.002-1.030 [facility] Urine urobilinogen measureme ntOrdered By: Magda Aragon on 02-02-2025 Urobilinogen Ql (U) Normal mg/dl Normal [facility] White blood cell countOrdere d By: Magda Aragon on 02-02-2025 White blood cell count 0 SEEN /hpf 0-5 [facility] BACTERIAL VAGINOSIS NAATon 0 01-20-2025 Interpretation and review of laboratory results Normal [facility] Lactobacillus crispatus+gasseri+muniz ii + Gardnerella vaginalis + Atopobium vaginae rRNA JOHN+probe Ql (Vag fld) Not detected Not detected [facility] Lactobacillus crispatus+gasseri+muniz ii + Gardnerella vaginalis + Atopobium vaginae rRNA JOHN+probe Ql (Vag fld) Not detected Normal Not detected [facility] Comment on above: Order Comment: Speci men Type: SWABOrdering Facility: [facility] Address: [address] [place], [place] [address] Performed By: #### C VTV, BVAMP ####[facility] LABCLIA [id number] [place] [address] [place] PARVEEN/TRICHOMONAS NAATon 0 01-20-2025 C. glabrata RNA JOHN+probe Ql (Vag fld) Not detected Not detected [facility] Parveen sp DNA JOHN+probe Ql (Vag fld) Not detected Not detected [facility] Comment on above: The Parveen species group target includes C. albicans, C. tropicalis, C. parapsilosis, and C. dubliniensis. Interpretation and review of laboratory results Normal [facility] T. vaginalis DNA JOHN+probe Ql (Unsp spec) Not detected Not detected [facility] C. glabrata RNA JOHN+probe Ql (Vag fld) Not detected Normal Not detected [facility] Comment on above: Order Comment: Speci men Type: SWABOrdering Facility: [facility] Address: [address] [place] [address] Performed By: #### C VTV, BVAMP ####[facility] LABCLIA [id number] [address] [place] Parveen sp DNA JOHN+probe Ql (Vag fld) Not detected Normal Not detected [facility] Comment on above: Order Comment: Speci men Type: SWABOrdering Facility: [facility] Address: [address] [place] [address] Result Comment: The Parveen species group target includes C. albicans, C. tropicalis, C. parapsilosis, and C. dubliniensis. Performed By: #### C VTV, BVAMP ####[facility] LABCLIA [id number] [place] [address] [place] T. vaginalis DNA JOHN+probe Ql (Unsp spec) Not detected Normal Not detected [facility] Comment on above: Order Comment: Speci men Type: SWABOrdering Facility: [facility] Address: [address] [place] [address] Performed By: #### C VTV, BVAMP ####[facility] LABCLIA [id number] [place] [id number] [place] [facility] [id number] 01-19-2025 [id number] HNO ID: [id number] Author: ARMIDA NEVES RN Service: ? Author Type: Registered Nurse Type: [id number] Filed: 01/19/2025 03:42 Note Text: Precautions given, patient verbalized understanding. Instructed to call her OB doctor for follow up. Normal [facility] Bacteria Ur Culton Bacteria identified Cx Nom (U) CULTURE, URINE: No growth (<1,000 CFU/ml) Normal [facility] Comment on above: Performed By: #### H STNT #### [facility] CLIA [id number] [address] [place], [place] [id number] [place] [address] CT ABD/PEL WO IVCONon 2024 CT ABD/PEL WO IVCON * * *Final Report* * * DATE OF EXAM: Jan 19 2025 12:50AM [facility] 0531 - CT ABD/PEL WO IVCON / [...] noncontrast CT. Recommend correlation with obstetric ultrasound. Testing And Regulating Technician: HIEU Transcribe Date/Time: Jan 19 2025 2:36A [...] [facility] Comment on above: Order Comment: Specelsa thorpe Type: BLOOD SPECIMEN [facility]ing Facility: [facility] Address: [address] [place] [address] Performed By: #### 5 8410-2 #### [facility] CLIA [id number] [address] [place] Hematocrit (Bld) [Volume fraction] 34.6 % Low 36.0-46.0 [facility] Comment on above: Order Comment: Destini thorpe Type: BLOOD SPECIMEN [facility]ing Facility: [facility] Address: [address] [place] [address] Performed By: #### 5 8410-2 #### [facility] CLIA [id number] [address] [place] Hemoglobin (Bld) [Mass/Vol] 11.5 g/dL Normal 11.5-15.5 [facility] Comment on above: Order Comment: Speci men Type: BLOOD SPECIMEN [facility]ing Facility: [facility] Address: [address] [place] [address] Performed By: #### 5 8410-2 #### [facility] CLIA [id number] [address] MCH (RBC) [Entitic mass] 31.0 pg Normal 26.0-34.0 [facility] Comment on above: Order Comment: Speci men Type: BLOOD SPECIMEN [facility]ing Facility: [facility] Address: [address] [place] [address] Performed By: #### 5 8410-2 #### [facility] CLIA [id number] [address] MCHC (RBC) [Mass/Vol] 33.2 g/dL Normal 30.5-36.0 [facility] Comment on above: Order Comment: Speci men Type: BLOOD SPECIMEN [facility]ing Facility: [facility] Address: [address] [place] [address] Performed By: #### 5 8410-2 #### [facility] CLIA [id number] [address] MCV (RBC) [Entitic vol] 93.3 fL Normal 80.0-100.0 [facility] Comment on above: Order Comment: Speci men Type: BLOOD SPECIMEN [facility]ing Facility: [facility] Address: [address] [place] [address] Performed By: #### 5 8410-2 #### [facility] CLIA [id number] [address] Nucleated RBC (Bld) [#/Vol] 10*3/uL Normal <0.01 [facility] Comment on above: Order Comment: Speci men Type: BLOOD SPECIMEN [facility]ing Facility: [facility] Address: [address] [place] [address] Performed By: #### 5 8410-2 #### [facility] CLIA [id number] [address] Platelet mean volume (Bld) [Entitic vol] 9.2 fL Normal 9.0-12.7 [facility] Comment on above: Order Comment: Speci men Type: BLOOD SPECIMEN [facility] Facility: [facility] Address: [address] [place] [address] Performed By: #### 5 8410-2 #### [facility] CLIA [id number] [address] Platelets (Bld) [#/Vol] 242 10*3/uL Normal 150-400 [facility] Comment on above: Order Comment: Speci men Type: BLOOD SPECIMEN [facility] Facility: [facility] Address: [address] [place] [address] Performed By: #### 5 8410-2 #### [facility] CLIA [id number] [address] RBC (Bld) [#/Vol] 3.71 10*6/uL Low 3.90-5.20 [facility] Comment on above: Order Comment: Speci men Type: BLOOD SPECIMEN [facility]ing Facility: [facility] Address: [address] [place] [address] Performed By: #### 5 8410-2 #### [facility] CLIA [id number] [address] WBC (Bld) [#/Vol] 10.04 10*3/uL Normal 3.70-11.00 [facility] Comment on above: Order Comment: Speci men Type: BLOOD SPECIMEN [facility] Facility[facility] Address: [address] [place] [address] Performed By: #### 5 8410-2 #### [facility] CLIA [id number] [address] [place] 01-18-2025 RUBÉN Telephone (OBGYWM) SARAHY KAURLAURAGEO Radha ([id number]) 3 F Date Time Provider Department 01/18/25 LYNNETTE TAPIA During your visit today, we recorded the following information about you: Isaura Pereira RN 01/18/2025 8:46 AM Signed Breast pump order received from [employer]. To CP to sign. LEVON Hutson Lindsey, [...] Status:Closed by JOCELYNE BLACK on 01/20/25 Normal [facility] metabolic 2000 panelon 01-18-2025 Albumin [Mass/Vol] 3.8 g/dL Low 3.9-4.9 [facility] Comment on above: Order Comment: Speci men Type: BLOOD SPECIMEN [facility] Address: [address] [place] [address] Performed By: #### H STNT #### [facility] CLIA [id number] [address] ALP [Catalytic activity/Vol] 57 U/L Normal 34-123 [facility] Comment on above: Order Comment: Speci men Type: BLOOD SPECIMEN [facility]: [facility] Address: [address] [place] [address] Performed By: #### H STNT #### [facility] CLIA [id number] [address] OF [facility] ALT With P-5'-P [Catalytic activity/Vol] 11 U/L Normal 7-38 [facility] Comment on above: Order Comment: Speci men Type: BLOOD SPECIMEN [facility] Address: [address] [place] [address] Performed By: #### H STNT #### [facility] CLIA [id number] [address] [facility] Anion gap [Moles/Vol] 12 mmol/L Normal 8-15 [facility] Comment on above: Order Comment: Speci men Type: BLOOD SPECIMEN [facility] Facility: [facility] Address: [address] [place] [address] Performed By: #### H STNT #### [facility] CLIA [id number] [address] [place] AST With P-5'-P [Catalytic activity/Vol] 16 U/L Normal 13-35 [facility] Comment on above: Order Comment: Speci men Type: BLOOD SPECIMEN [facility] Facility: [facility] Address: [address] [place] [address] Performed By: #### H STNT #### [facility] CLIA [id number] [address] [place] Bilirubin [Mass/Vol] 0.3 mg/dL Normal 0.2-1.3 [facility] Comment on above: Order Comment: Speci men Type: BLOOD SPECIMEN [facility] Facility: [facility] Address: [address] [place] [address] Performed By: #### H STNT #### [facility] CLIA [id number] 1 [place] [address] [place] Calcium [Mass/Vol] 8.6 mg/dL Normal 8.5-10.2 [facility] Comment on above: Order Comment: Speci men Type: BLOOD SPECIMEN [facility]: [facility] Address: [address] [place] [address] Performed By: #### H STNT #### [facility] CLIA [id number] [address] [place] [address] [place] Chloride [Moles/Vol] 103 mmol/L Normal 98-107 [facility] Comment on above: Order Comment: Speci men Type: BLOOD SPECIMEN [facility]: [facility] Address: [address] [place] [address] Performed By: #### H STNT #### [facility] CLIA [id number] [address] [place] [address] [place] CO2 [Moles/Vol] 22 mmol/L Normal 22-30 [facility] Comment on above: Order Comment: Speci men Type: BLOOD SPECIMEN [facility] Address: [address] [place] [address] Performed By: #### H STNT #### [facility] CLIA [id number] [address] STATES OF [facility] Creatinine [Mass/Vol] 0.50 mg/dL Low 0.58-0.96 [facility] Comment on above: Order Comment: Speci men Type: BLOOD SPECIMEN [facility]: [facility] Address: [address] [place] [address] Performed By: #### H STNT #### [facility] CLIA [id number] [address] eGFRcr SerPlBld CKD-EPI 2020 138 mL/min/1.73m??? Normal >=60 [facility] Comment on above: Order Comment: Destini men Type: BLOOD SPECIMEN [facility]: [facility] Address: [address] [place] [address] Result Comment: Shilpa mated Glomerular Filtration Rate [...] GFR. Performed By: #### H STNT #### [facility] CLIA [id number] [address] [place] [address] Glucose [Mass/Vol] 63 mg/dL Low 74-99 [facility] Comment on above: Order Comment: Shannani maurilio Type: BLOOD SPECIMEN [facility] Facility: [facility] Address: [address] [place] [address] Result Comment: The [place] [employer] Association (ADA) provides guidance for [...] Standards of Medical Care in Diabetes 2016, [place] [employer] Association. Diabetes Care. 2016.39(Suppl 1). Performed By: #### H STNT #### [facility] CLIA [id number] [address] Potassium [Moles/Vol] 3.8 mmol/L Normal 3.7-5.1 [facility] Comment on above: Order Comment: Speci men Type: BLOOD SPECIMEN [facility]: [facility] Address: [address] [place] [address] Performed By: #### H STNT #### [facility] CLIA [id number] [address] [place] Protein [Mass/Vol] 6.5 g/dL Normal 6.3-8.0 [facility] Comment on above: Order Comment: Speci men Type: BLOOD SPECIMEN [facility]: [facility] Address: [address] [place] [address] Performed By: #### H STNT #### [facility] CLIA [id number] [address] Sodium [Moles/Vol] 137 mmol/L Normal 136-144 [facility] Comment on above: Order Comment: Speci men Type: BLOOD SPECIMEN [facility]: [facility] Address: [address] [place] [address] Performed By: #### H STNT #### [facility] CLIA [id number] [address] [place] Urea nitrogen [Mass/Vol] 4 mg/dL Low 7-21 [facility] Comment on above: Order Comment: Speci men Type: BLOOD SPECIMEN Order[facility] Facility: [facility] Address: [address] [place] [address] Performed By: #### H STNT #### 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 MATERNAL MEDICINE [facility] TSH W/REFLEX FT4on 5 TSH Qn 1.510 m[IU]/L Normal 0.510-4.300 [facility] Comment on above: Order Comment: Speci men Type: BLOOD SPECIMENOrdering Facility: [facility] Address: [address] [facility] [address] Result Comment: If t he patient is , TSH reference range varies by gestational period: First Trimester (weeks 9-12): 0.180-2.990 mIU/L Second Trimester: 0.110-3.980 mIU/L Third Trimester: 0.480-4.710 mIU/L Garry Rizvi et al. A Practical Approach for the Verifications and Determination of Site- and Trimester-Specific Reference Intervals for Thyroid Function tests in . Thyroid, 2019:29:3:412-420. Keagan E, et al. 2017 Guidelines of the [place] Thyroid Association for the Diagnosis and Management of Thyroid Disease during and the . Thyroid, 2017:27:3:315-389. Performed By: #### T SHRF ####[facility] LABCLIA [id number] [place] [address] [place] BACTERIAL VAGINOSIS NAATon 0 01-11-2025 Lactobacillus crispatus+gasseri+muniz ii + Gardnerella vaginalis + Atopobium vaginae rRNA JOHN+probe Ql (Vag fld) Not detected Normal Not detected [facility] Comment on above: Order Comment: Speci men Type: SWABOrdering Facility: [facility] Address: [address] [place] [address] Performed By: #### C VTV, BVAMP ####[facility] LABCLIA [id number] [place] [address] [place] Bacteria Ur Culton Bacteria identified Cx Nom (U) ORGANISM ID: 1 <10,000 CFU/ml Enterococcus faecalis Insignificant colony count. No further workup. Cephalosporins, clindamycin, and TMP-SMX are not effective for the treatment of enterococcal infections. Normal [facility] Comment on above: Performed By: #### 6 30-4 #### [facility] CLIA [id number] [address] [place] [address] [place] PARVEEN/TRICHOMONAS NAATon 0 01-11-2025 C. glabrata RNA JOHN+probe Ql (Vag fld) Not detected Normal Not detected [facility] Comment on above: Order Comment: Speci men Type: SWABOrdering Facility: [facility] Address: [address] [place] [address] Performed By: #### C VTV, BVAMP ####[facility] LABCLIA [id number] [address] [place] Parveen sp DNA JOHN+probe Ql (Vag fld) Not detected Normal Not detected [facility] Comment on above: Order Comment: Speci men Type: SWABOrdering Facility: [facility] Address: [address] [place] [address] Result Comment: The Parveen species group target includes C. albicans, C. tropicalis, C. parapsilosis, and C. dubliniensis. Performed By: #### C VTV, BVAMP ####[facility] LABCLIA [id number] [address] [place] T. vaginalis DNA JOHN+probe Ql (Unsp spec) Not detected Normal Not detected [facility] Comment on above: Order Comment: Speci men Type: SWABOrdering Facility: [facility] Address: [address] [place] [address] Performed By: #### C VTV, BVAMP ####[facility] LABCLIA [id number] [address] [place] Examination level ultrasound on 01-11-2025 Radiology Study observation (narrative) [facility] UA DIP, URINE (POC)on 2024 BILIRUBIN UA (POCT) Negative Negative [facility] CLARITY UA (POCT) Clear [facility] COLOR UA (POCT) Yellow [facility] GLUCOSE UA (POCT) Negative Negative mg/dL [facility] Hemoglobin Ql (U) Negative Negative [facility] Interpretation and review of laboratory results Abnormal [facility] KETONE UA (POCT) Negative Negative mg/dL [facility] LEUKOCYTES UA (POCT) Trace Abnormal Negative [facility] NITRITE UA (POCT) Negative Negative [facility] PH UA (POCT) 6.0 4.5 - 8.0 [facility] Protein Ql (U) Negative Negative mg/dL [facility] SPECIFIC GRAVITY UA (POCT) 1.020 1.005 - 1.030 [facility] UROBILINOGEN UA (POCT) 0.2 Normal E.U./d L [facility] Location:[facility], [address] , [place], [address] [facility] POINT OF CARE [facility] CNPMissy 01-07-2025 NELDAN Telephone (AKPRAD) PAL NICHOLAS ([id number]) 3 F Date Time Provider Department 01/07/25 EJ RODRIGUEZ During your visit today, we recorded the following information about you: Ej Rodriguez MD 01/07/2025 12:41 PM Signed Patient was seen by resident but not by any attending visual training aide while in labor and delivery she is [...] Date Reviewed: 01/06/2025 Reviewed by: Aleksandra Rodriguez, RN - Fully Assessed Reason for Visit: [...] Anion gap [Moles/Vol] 12 mmol/L Normal 8-15 [facility] Comment on above: Order Comment: Speci men Type: BLOOD SPECIMEN [facility] Address: [address] [place] [address] Performed By: #### H STNT, 31312-5 #### [facility] CLIA [id number] [address] [place] [address] [place] Calcium [Mass/Vol] 8.6 mg/dL Normal 8.5-10.2 [facility] Comment on above: Order Comment: Speci men Type: BLOOD SPECIMEN [facility] Facility: [facility] Address: [address] [place] [address] Performed By: #### H STNT, 25835-6 #### [facility] CLIA [id number] [address] [place] [address] [place] Chloride [Moles/Vol] 104 mmol/L Normal 98-107 [facility] Comment on above: Order Comment: Speci men Type: BLOOD SPECIMEN [facility] Address: [address] [place] [address] Performed By: #### H STNT, 80461-9 #### [facility] CLIA [id number] [address] [place] CO2 [Moles/Vol] 20 mmol/L Low 22-30 [facility] Comment on above: Order Comment: Speci men Type: BLOOD SPECIMEN [facility] Address: [address] [place] [address] Performed By: #### H STNT, 38338-0 #### [facility] CLIA [id number] [address] [place] Creatinine [Mass/Vol] 0.47 mg/dL Low 0.58-0.96 [facility] Comment on above: Order Comment: Speci men Type: BLOOD SPECIMEN [facility] Address: [address] [place] [address] Performed By: #### H STNT, 67767-8 #### [facility] CLIA [id number] [address] eGFRcr SerPlBld CKD-EPI 2020 140 mL/min/1.73m??? Normal >=60 [facility] Comment on above: Order Comment: Speci men Type: BLOOD SPECIMEN [facility] Address: [address] [place] [address] Result Comment: Shilpa mated Glomerular Filtration Rate [...] actual GFR. Performed By: #### H STNT, 95483-1 #### [facility] CLIA [id number] [address] [facility] Glucose [Mass/Vol] 78 mg/dL Normal 74-99 [facility] Comment on above: Order Comment: Speci men Type: BLOOD SPECIMEN [facility] Address: [address] [place] [address] Result Comment: The [place] [employer] Association (ADA) provides guidance for [...] Standards of Medical Care in Diabetes 2016, [place] [employer]. Diabetes Care. 2016.39(Suppl 1). Performed By: #### H STNT, 24593-2 #### [facility] CLIA [id number] [address] [place] [address] [place] Potassium [Moles/Vol] 3.7 mmol/L Normal 3.7-5.1 [facility] Comment on above: Order Comment: Speci men Type: BLOOD SPECIMEN [facility] Address: [address] [place] [address] Performed By: #### H STNT, 00083-4 #### [facility] CLIA [id number] [address] [place] [address] [place] Sodium [Moles/Vol] 136 mmol/L Normal 136-144 [facility] Comment on above: Order Comment: Speci men Type: BLOOD SPECIMEN [facility] Address: [address] [place] [address] Performed By: #### H STNT, 85506-1 #### [facility] CLIA [id number] [address] [place] [address] [place] Urea nitrogen [Mass/Vol] 8 mg/dL Normal 7-21 [facility] Comment on above: Order Comment: Speci men Type: BLOOD SPECIMEN [facility] Address: [address] [place] [address] Performed By: #### H STNT, 60753-2 #### [facility] CLIA [id number] [address] C. trachomatis+N. gonorrhoea e DNA JOHN+probe Ql (Unsp spec)on 01-06-2025 C. trachomatis rRNA JOHN+probe Ql (Unsp spec) Not detected Normal Not detected [facility] Comment on above: Order Comment: Speci men Type: SWAB [facility] Address: [address] [place] [address] Performed By: #### T RVAMP, 69562-7 #### [facility] CLIA [id number] [address] N. gonorrhoeae rRNA JOHN+probe Ql (Unsp spec) Not detected Normal Not detected [facility] Comment on above: Order Comment: Speci men Type: SWAB [facility] Address: [address] [place] [address] Performed By: #### T RVAMP, 67697-9 #### [facility] CLIA [id number] [address] CBC panel Auto (Bld)on 01-06 Erythrocyte distribution width (RBC) [Ratio] 13.7 % Normal 11.5-15.0 [facility] Comment on above: Order Comment: Speci men Type: BLOOD SPECIMEN [facility] Address: [address] [place] [address] Performed By: #### H STNT, 07451-6 #### [facility] CLIA [id number] [address] Hematocrit (Bld) [Volume fraction] 36.1 % Normal 36.0-46.0 [facility] Comment on above: Order Comment: Speci men Type: BLOOD SPECIMEN [facility] Address: [address] [place] [address] Performed By: #### H STNT, 70277-7 #### [facility] CLIA [id number] [address] Hemoglobin (Bld) [Mass/Vol] 12.3 g/dL Normal 11.5-15.5 [facility] Comment on above: Order Comment: Speci men Type: BLOOD SPECIMEN [facility] Address: [address] [place] [address] Performed By: #### H STNT, 05905-1 #### [facility] CLIA [id number] [address] MCH (RBC) [Entitic mass] 30.8 pg Normal 26.0-34.0 [facility] Comment on above: Order Comment: Speci men Type: BLOOD SPECIMEN [facility] Address: [address] [place] [address] Performed By: #### H STNT, 41420-9 #### [facility] CLIA [id number] [address] MCHC (RBC) [Mass/Vol] 34.1 g/dL Normal 30.5-36.0 [facility] Comment on above: Order Comment: Speci men Type: BLOOD SPECIMEN [facility] Address: [address] [place] [address] Performed By: #### H STNT, 32284-5 #### [facility] CLIA [id number] [address] MCV (RBC) [Entitic vol] 90.3 fL Normal 80.0-100.0 [facility] Comment on above: Order Comment: Speci men Type: BLOOD SPECIMEN [facility] Address: [address] [place] [address] Performed By: #### H STNT, 45915-8 #### [facility] CLIA [id number] [address] Nucleated RBC (Bld) [#/Vol] 10*3/uL Normal <0.01 [facility] Comment on above: Order Comment: Speci men Type: BLOOD SPECIMEN [facility] Address: [address] [place] [address] Performed By: #### H STNT, 55801-7 #### [facility] CLIA [id number] [address] [place] Platelet mean volume (Bld) [Entitic vol] 9.3 fL Normal 9.0-12.7 [facility] Comment on above: Order Comment: Speci men Type: BLOOD SPECIMEN [facility] Address: [address] [place] [address] Performed By: #### H STNT, 27244-4 #### [facility] CLIA [id number] [address] [place] Platelets (Bld) [#/Vol] 248 10*3/uL Normal 150-400 [facility] Comment on above: Order Comment: Speci men Type: BLOOD SPECIMEN [facility] Address: [address] [place] [address] Performed By: #### H STNT, 02764-3 #### [facility] CLIA [id number] [address] RBC (Bld) [#/Vol] 4.00 10*6/uL Normal 3.90-5.20 [facility] Comment on above: Order Comment: Speci men Type: BLOOD SPECIMEN [facility] Address: [address] [place] [address] Performed By: #### H STNT, 01757-6 #### [facility] CLIA [id number] [address] [place] WBC (Bld) [#/Vol] 10.26 10*3/uL Normal 3.70-11.00 [facility] Comment on above: Order Comment: Speci men Type: BLOOD SPECIMEN [facility] Address: [address] [place] [address] Performed By: #### H STNT, 72907-9 #### [facility] CLIA [id number] [address] OF [facility] Landen 01-06-2025 NELDAN Telephone (OBGYW) PAL NICHOLAS ([id number]) 3 F Date Time Provider Department 01/06/25 [...] 01/05 telephone notes. Patient was seen at [facility] OB ED triage on 01/04. The diarrhea has resolved. Advised that she go back to [facility] as the office is closing. Patient asked for an appointment tomorrow instead because of transportation. No available appointments. Advised that she should be evaluated today in case she is having labor. Voiced understanding and believes she could have a friend take her. LEVON Driver Rebecca L, MD 01/07/2025 10:00 AM Signed If not improved work in any cancellations, go to [facility] for eval or schedule tomorrow if openings. MD Honey Begum Lindsey, RN 01/07/2025 10:36 AM Signed Patient was seen at [facility] last night. She has OB and MFM [...] Encounter Status:Closed by KARINA ADDISON on 01/07/25 [facility] CONSULTon 01-06-2025 CONSULT HNO ID: [id number] Author: EJ RODRIGUEZ MD Service: Nephrology Author [...] not on any medications. She moved from [place] and previously was on beta-luana however stopped [...] QTC Calculation(Bazett) : 401 ms Calculated P [place] : -18 degrees Calculated R [place] : 148 degrees Calculated T [place] : -28 degrees NORMAL SINUS RHYTHM RIGHT AXIS DEVIATION LOW VOLTAGE QRS CANNOT RULE OUT INFERIOR INFARCT , AGE UNDETERMINED T WAVE ABNORMALITY, CONSIDER ANTERIOR ISCHEMIA ABNORMAL ECG WHEN COMPARED WITH ECG OF 05-Jan-2025 00:20, QRS AXIS SHIFTED RIGHT Confirmed by MD NAPIER VINAY ([id number]) on 01/07/2025 11:39:00 AM NAME : PAL NICHOLAS PID : [id number] : 2005 Gender : Female Race : ORD : [id number] Procedure Date : Jan 06 2025 20:38:59 Edit Date : Jan 07 2025 11:39:11 Diagnosis: NORMAL SINUS RHYTHM RIGHT AXIS DEVIATION LOW VOLTAGE QRS CANNOT RULE OUT INFERIOR INFARCT , AGE UNDETERMINED T WAVE ABNORMALITY, CONSIDER ANTERIOR ISCHEMIA ABNORMAL ECG WHEN COMPARED WITH ECG OF 05-Jan-2025 00:20, QRS AXIS SHIFTED RIGHT Confirmed by MD NAPIER VINAY ([id number]) on 01/07/2025 11:39:00 AM Test Reason : Chest Pain Location : 200 : [facility] TR04 Overread By : MD NAPIER VINAY Edited By : MD NAPIER VINAY Referred By : , Acquired by : ZUNILDA FULLER Normal [facility] HIGH SENSITIVITY TROPONIN To n 01-06-2025 Troponin T.cardiac High sensitivity method [Mass/Vol] <6 Normal <12 [facility] Comment on above: Order Comment: Speci men Type: BLOOD SPECIMEN [facility] Address: [address] [place] [address] Performed By: #### H STNT #### [facility] CLIA [id number] [address] [place] Troponin T.cardiac High sensitivity method [Mass/Vol] <6 Normal <12 [facility] Comment on above: Order Comment: Speci men Type: BLOOD SPECIMEN [facility] Address: [address] [place] [address] Performed By: #### H STNT, 42622-6 #### [facility] CLIA [id number] [address] [place] [address] [place] [facility] TRICHOMONAS VAGINALIS NAATon 01-06-2025 T. vaginalis DNA JOHN+probe Ql (Unsp spec) Not detected Normal Not detected [facility] Comment on above: Order Comment: Speci men Type: SWAB [facility] Address: [address] [place] [address] Performed By: #### T RVAMP, 06160-7 #### [facility] CLIA [id number] [address] [place] CBC panel Auto (Bld)on 01-05 Erythrocyte distribution width (RBC) [Ratio] 14.0 % Normal 11.5-15.0 [facility] Comment on above: Order Comment: Speci men Type: BLOOD SPECIMEN [facility] Address: [address] [place] [address] Performed By: #### 5 8410-2 #### [facility] CLIA [id number] [address] [place] Hematocrit (Bld) [Volume fraction] 33.6 % Low 36.0-46.0 [facility] Comment on above: Order Comment: Speci men Type: BLOOD SPECIMEN [facility]: [facility] Address: [address] [place] [address] Performed By: #### 5 8410-2 #### [facility] CLIA [id number] [address] [facility] Hemoglobin (Bld) [Mass/Vol] 11.4 g/dL Low 11.5-15.5 [facility] Comment on above: Order Comment: Speci men Type: BLOOD SPECIMEN [facility] Address: [address] [place] [address] Performed By: #### 5 8410-2 #### [facility] CLIA [id number] [address] MCH (RBC) [Entitic mass] 30.6 pg Normal 26.0-34.0 [facility] Comment on above: Order Comment: Speci men Type: BLOOD SPECIMEN [facility] Address: [address] [place] [address] Performed By: #### 5 8410-2 #### [facility] CLIA [id number] [address] MCHC (RBC) [Mass/Vol] 33.9 g/dL Normal 30.5-36.0 [facility] Comment on above: Order Comment: Speci men Type: BLOOD SPECIMEN [facility] Facility: [facility] Address: [address] [place] [address] Performed By: #### 5 8410-2 #### [facility] CLIA [id number] [address] [place] MCV (RBC) [Entitic vol] 90.1 fL Normal 80.0-100.0 [facility] Comment on above: Order Comment: Speci men Type: BLOOD SPECIMEN [facility]: [facility] Address: [address] [place] [address] Performed By: #### 5 8410-2 #### [facility] CLIA [id number] [address] [place] Nucleated RBC (Bld) [#/Vol] 10*3/uL Normal <0.01 [facility] Comment on above: Order Comment: Speci men Type: BLOOD SPECIMEN [facility] Facility: [facility] Address: [address] [place] [address] Performed By: #### 5 8410-2 #### [facility] CLIA [id number] [address] [place] Platelet mean volume (Bld) [Entitic vol] 9.3 fL Normal 9.0-12.7 [facility] Comment on above: Order Comment: Speci men Type: BLOOD SPECIMEN [facility]: [facility] Address: [address] [place] [address] Performed By: #### 5 8410-2 #### [facility] CLIA [id number] [address] [place] Platelets (Bld) [#/Vol] 223 10*3/uL Normal 150-400 [facility] Comment on above: Order Comment: Speci men Type: BLOOD SPECIMEN [facility] Facility: [facility] Address: [address] [place] [address] Performed By: #### 5 8410-2 #### [facility] CLIA [id number] [address] [place] RBC (Bld) [#/Vol] 3.73 10*6/uL Low 3.90-5.20 [facility] Comment on above: Order Comment: Speci men Type: BLOOD SPECIMEN [facility] Facility: [facility] Address: [address] [place] [address] Performed By: #### 5 8410-2 #### [facility] CLIA [id number] [address] [place] WBC (Bld) [#/Vol] 10.50 10*3/uL Normal 3.70-11.00 [facility] Comment on above: Order Comment: Speci men Type: BLOOD SPECIMEN [facility] Facility: [facility] Address: [address] [place] [address] Performed By: #### 5 8410-2 #### [facility] [id number] 1 [place] [id number] [facility] Landen 01-05-2025 CNPN Telephone (AKPOB) PAL NICHOLAS ([id number]) 3 F Date Time Provider Department 01/05/25 [...] Encounter Status:Closed by JAYLA KELLER on 01/05/25 [facility] RUBÉN Telephone (VIDHYAWM) PAL NICHOLAS ([id number]) 3 F Date Time Provider Department 01/05/25 LESTER PHILLIPS During your visit today, we recorded the following information about you: Magda Hagen RN 01/05/2025 11:40 AM Signed 19w1d See 01/04 phone note. Patient went to [facility] OB ED last night. [place]'s notes available to review. Patient was prescribed [...] feel completely confident in the diagnosis from [place]. Please advise. LEVON Gardner Karmon, MD 01/05/2025 12:09 PM Signed Patient was seen by Mitesh Kulkarni while at [facility]. I recommend supportive care with hydration, [...] Status:Closed by JOCELYNE BLACK on 01/05/25 Normal [facility] Comprehensive metabolic 2000 panelon 01-05-2025 Albumin [Mass/Vol] 3.5 g/dL Low 3.9-4.9 [facility] Comment on above: Order Comment: Speci men Type: BLOOD SPECIMEN Ordering Facility: [facility] Address: [address] [place] [address] Performed By: #### 2 4323-8 #### [facility] CLIA [id number] [address] OF [facility] ALP [Catalytic activity/Vol] 46 U/L Normal 34-123 [facility] Comment on above: Order Comment: Speci men Type: BLOOD SPECIMEN [facility]ing Facility: [facility] Address: [address] [place] [address] Performed By: #### 2 4323-8 #### [facility] CLIA [id number] [address] STATES OF [facility] ALT With P-5'-P [Catalytic activity/Vol] 13 U/L Normal 7-38 [facility] Comment on above: Order Comment: Speci men Type: BLOOD SPECIMEN Ordering Facility: [facility] Address: [address] [place] [address] Performed By: #### 2 4323-8 #### [facility] CLIA [id number] [address] [place] Anion gap [Moles/Vol] 12 mmol/L Normal 8-15 [facility] Comment on above: Order Comment: Speci men Type: BLOOD SPECIMEN Ordering Facility: [facility] Address: [address] [place] [address] Performed By: #### 2 4323-8 #### [facility] CLIA [id number] [address] OF [facility] AST With P-5'-P [Catalytic activity/Vol] 16 U/L Normal 13-35 [facility] Comment on above: Order Comment: Speci men Type: BLOOD SPECIMEN Ordering Facility: [facility] Address: [address] [place] [address] Performed By: #### 2 4323-8 #### [facility] CLIA [id number] [address] [place] Bilirubin [Mass/Vol] 0.3 mg/dL Normal 0.2-1.3 [facility] Comment on above: Order Comment: Speci men Type: BLOOD SPECIMEN [facility]ing Facility: [facility] Address: [address] [place] [address] Performed By: #### 2 4323-8 #### [facility] CLIA [id number] [address] [place] Calcium [Mass/Vol] 9.1 mg/dL Normal 8.5-10.2 [facility] Comment on above: Order Comment: Speci men Type: BLOOD SPECIMEN Ordering Facility: [facility] Address: [address] [place] [address] Performed By: #### 2 4323-8 #### [facility] CLIA [id number] [address] [place] Chloride [Moles/Vol] 106 mmol/L Normal 98-107 [facility] Comment on above: Order Comment: Speci men Type: BLOOD SPECIMEN Ordering Facility: [facility] Address: [address] [place] [address] Performed By: #### 2 4323-8 #### [facility] CLIA [id number] [address] [place] CO2 [Moles/Vol] 21 mmol/L Low 22-30 [facility] Comment on above: Order Comment: Speci men Type: BLOOD SPECIMEN [facility]ing Facility: [facility] Address: [address] [place] [address] Performed By: #### 2 4323-8 #### [facility] CLIA [id number] [address] [place] [address] [place] Creatinine [Mass/Vol] 0.51 mg/dL Low 0.58-0.96 [facility] Comment on above: Order Comment: Speci men Type: BLOOD SPECIMEN Ordering Facility: [facility] Address: [address] [place] [address] Performed By: #### 2 4323-8 #### [facility] CLIA [id number] [address] [place] [address] [place] eGFRcr SerPlBld CKD-EPI 2020 137 mL/min/1.73m??? Normal >=60 [facility] Comment on above: Order Comment: Speci men Type: BLOOD SPECIMEN Ordering Facility: [facility] Address: [address] [place] [address] Result Comment: Shilpa mated Glomerular Filtration Rate [...] GFR. Performed By: #### 2 4323-8 #### [facility] CLIA [id number] [address] [place] [address] [place] Glucose [Mass/Vol] 93 mg/dL Normal 74-99 [facility] Comment on above: Order Comment: Destini thorpe Type: BLOOD SPECIMEN Ordering Facility: [facility] Address: [address] [id number] Result Comment: The [place] Diabetes Association (ADA) provides guidance for [...] Standards of Medical Care in Diabetes 2016, [place] [employer]. Diabetes Care. 2016.39(Suppl 1). Performed By: #### 2 4323-8 #### [facility] CLIA [id number] [address] [place] [address] [place] Potassium [Moles/Vol] 3.4 mmol/L Low 3.7-5.1 [facility] Comment on above: Order Comment: Destini thorpe Type: BLOOD SPECIMEN Ordering Facility: [facility] Address: [address] [place] [address] Performed By: #### 2 4323-8 #### [facility] CLIA [id number] [address] [place] [address] [place] Protein [Mass/Vol] 5.8 g/dL Low 6.3-8.0 [facility] Comment on above: Order Comment: Destini thorpe Type: BLOOD SPECIMEN Ordering Facility: [facility] Address: [address] [id number] Performed By: #### 2 4323-8 #### [facility] CLIA [id number] [address] [place] [address] [place] Sodium [Moles/Vol] 139 mmol/L Normal 136-144 [facility] Comment on above: Order Comment: Shannani men Type: BLOOD SPECIMEN Ordering Facility: [facility] Address: [address] [facility] [place] [address] Performed By: #### 2 4323-8 #### [facility] CLIA [id number] [address] Urea nitrogen [Mass/Vol] 5 mg/dL Low 7- [facility] Comment on above: Order Comment: Speci men Type: BLOOD SPECIMEN Ordering Facility: [facility] Address: [address] [id number] Performed By: #### 2 4323-8 #### [facility] CLIA [id number] [address] [place] ECG COMPLETEon 01-05-2025 ECG COMPLETE Ventricular Rate : 97 BPM Atrial Rate : 97 BPM P-R Interval : 128 ms QRS Duration : 78 ms Q-T Interval : 344 ms QTC Calculation(Bazett) : 436 ms Calculated P [place] : 21 degrees Calculated R [place] : 23 degrees Calculated T [place] : -1 degrees NORMAL SINUS RHYTHM LOW VOLTAGE QRS BORDERLINE ECG NO PREVIOUS ECGS AVAILABLE Confirmed by MD NAPIER VINAY ([id number]) on 01/05/2025 12:13:29 PM NAME : PAL NICHOLAS PID : [id number] : 2005 Gender : Female Race : ORD : [id number] Procedure Date : Jan 05 2025 00:20:24 Edit Date : Jan 05 2025 12:13:36 Diagnosis: NORMAL SINUS RHYTHM LOW VOLTAGE QRS BORDERLINE ECG NO PREVIOUS ECGS AVAILABLE Confirmed by MD NAPIER VINAY ([id number]) on 01/05/2025 12:13:29 PM Test Reason : Dizziness Location : [address] : [place] [address] Overread By : MD NAPIER VINAY Edited By : MD NAPIER VINAY Referred By : , Acquired by : BEN GALVAN [facility] [place] 01-04-2025 NELDAN Telephone (OBGYWM) PAL NICHOLAS ([id number]) 3 F Date Time Provider Department 01/04/25 MAGDA ARAGON During your visit today, we recorded the following information about you: Maite Peterson RN 01/04/2025 3:29 PM Signed 19w0d Pt calls [...] this is staying the same since at [facility] 12/22/24. Last few weeks, Pt states extremely watery discharge. Went to [facility] at that time d/t having sharp cervical pain AND was treated for BV. Feels hydrated/Has been drinking liquid IV. Does have some burning on urination AND was seen on 12/30/24 in office-UA completed and TRACE protein and TRACE leukocytes. Advised Pt that since pain has worsened as the day as gone on that it would be best to go to [facility] OB triage to be evaluated as no appts available in office at this time. Pt did state she'd feel more comfortable going there and that is essentially why she called as she wanted to discuss with a nurse. Pt states her ride will not be able to pick her up for another 30 minutes, but Pt is agreeable to go to [place]. Dr. Aragon notified. Maite Peterson RN Allergies [...] Encounter Status:Closed by MAITE PETERSON on 01/21/25 [facility]ICH[facility] ([id number]) 3 F Date Time Provider Department 12/29/24 KARINA ADDISON OBCARLOSWBarbara During your visit today, we recorded the [...] Status:Closed by KARINA ADDISON on 12/29/24 Normal [facility] BACTERIAL VAGINOSIS NAATon 0 12-28-2024 Lactobacillus crispatus+gasseri+muniz ii + Gardnerella vaginalis + Atopobium vaginae rRNA JOHN+probe Ql (Vag fld) Not detected Normal Not detected [facility] Comment on above: Order Comment: Speci men Type: SWABOrdering Facility: [facility] Address: [address] [place] [address] Performed By: #### 6 30-4 #### [facility] CLIA [id number] [address] [place] [address] [place] PARVEEN/TRICHOMONAS NAATon 0 12-28-2024 C. glabrata RNA JOHN+probe Ql (Vag fld) Not detected Normal Not detected [facility] Comment on above: Order Comment: Speci men Type: SWABOrdering Facility: [facility] Address: [address] [place] [address] Performed By: #### 6 30-4 #### [facility] CLIA [id number] [address] [place] [address] OF M[place] Parveen sp DNA JOHN+probe Ql (Vag fld) Not detected Normal Not detected [facility] Comment on above: Order Comment: Speci men Type: SWABOrdering Facility: [facility] Address: [address] [place] [address] Result Comment: The Parveen species group target includes C. albicans, C. tropicalis, C. parapsilosis, and C. dubliniensis. Performed By: #### 6 30-4 #### [facility] CLIA [id number] [address] [place] [address] OF MELY T. vaginalis DNA JOHN+probe Ql (Unsp spec) Not detected Normal Not detected [facility] Comment on above: Order Comment: Speci men Type: SWABOrdering Facility: [facility] Address: [address] [place] [address] Performed By: #### 6 30-4 #### [facility] CLIA [id number] [address] [place] [address] [place] 12-25-2024 RUBÉN Telephone (OBGYWM) PAL NICHOLAS ([id number]) 3 F Date Time Provider Department 12/25/24 PRASHANTJUMA LYNNETTELEONARD PLATT During your visit today, we recorded the following information about you: Isaura Pereira RN 12/25/2024 12:14 PM Signed Records received from [facility] in [place]. In chart prep binder for NOB appt on 12/28 with CP. Isaura Pereira RN Allergies As of Date: 12/25/2024 (No Known Allergies) Date Reviewed: 12/22/2024 Reviewed by: Tressa Winters DO - Fully Assessed Reason for Visit: Received Outside Medical Records [[id number]] Prescriptions as of 12/25/2024 - cyclobenzaprine (FLEXERIL) [...] Status:Closed by ISAURA PEREIRA on 12/25/24 Normal [facility] Urine Cultureon 12-24-2024 [facility] Mixed Gram Positive Organisms [place] Count 11,000-25,000 MIXC Mixed contaminants. Submit a new specimen if indicated. Normal [facility] Comment on above: Performed By: #### L 500.4050 #### [facility] [place], [address] [facility]22-2024 [facility] PAL NICHOLAS ([id number]) 3 F Date Time Provider Department 12/22/24 KARINA ADDISON During your visit today, we recorded the following information about you: Magda Hagen RN 12/22/2024 12:30 PM Signed [facility] seen at [facility] ER yesterday for pelvic pain. LMP 08/24/24. Approximately 17w1d. Patient calling because she still continues to have pelvic pain and pressure. Pain rate of 5-6. Taking Tylenol and using heat with no relief. States when she went to the ER her pain was 8-9. Denies LOF or VB. Per [facility] ER report: Discussed the case with on-call AN/SSN [address] [facility] [address] Aragon who states that she [...] urgent issue or go to ANGELA at [facility] or see if there is a sooner [...] Status:Closed by MAGDA HAGEN on 12/22/24 Normal [facility] Absolute lymphocyte countOrd ered By: Aftab Mendoza on 12-21-2024 Lymphocytes Auto (Unsp spec) [#/Vol] 1.91 10*3/uL 0.83-4.51 [facility] Absolute neutrophil countOrd ered By: Aftab Mendoza on 12-21-2024 Neutrophils (Bld) [#/Vol] 7.6 10*3/uL 2.0-7.7 [facility] Anion gap in Serum or Plasma Ordered By: Aftab Mendoza on 12-21-2024 Anion gap [Moles/Vol] 13 mmol/L 5-15 [facility] Automated lymphocyte count a s percentage of total leukocytesOrdered By: Aftab Mendoza on 12-21-2024 Lymphocytes/100 WBC Auto (Unsp spec) 18.4 % Low 19-41 [facility] BUN/creatinine ratioOrdered By: Aftab Mendoza on 12-21-2024 Urea nitrogen/Creatinine [Mass ratio] 13.0 mg/mg 10-20 [facility] Basophil percentageOrdered B y: Aftab Mendoza on 12-21-2024 Basophils/100 WBC (Bld) 0.4 % 0-1 [facility] Bilirubin Test strip Ql (U)O rdered By: Aftab Mendoza on 12-21-2024 Bilirubin Ql (U) Negative Negative [facility] Bilirubin, totalOrdered By: Aftab Mendoza on 12-21-2024 Bilirubin [Mass/Vol] 0.26 mg/dL 0.00-1.30 [facility] CBC W/Diff, Automatedon 11-25 Absolute Lymph 1.91 X10 3/uL Normal 0.83-4.51 [facility] Comment on above: Performed By: #### L 100.0100 #### [facility] [address] [place], [place], [address] Absolute Neut 7.6 X10 3/uL Normal 2.0-7.7 [facility] Comment on above: Performed By: #### L 100.0100 #### [facility] [address] [place], [address] Basophils/100 WBC (Bld) 0.4 % Normal 0-1 [facility] Comment on above: Performed By: #### L 100.0100 #### [facility] [address] [place], [address] Eosinophils/100 WBC (Bld) 1.4 % Normal 0-5 [facility] Comment on above: Performed By: #### L 100.0100 #### [facility] [address] [place], [address] Erythrocyte distribution width (RBC) [Ratio] 14.0 % Normal 11.6-14.6 [facility] Comment on above: Performed By: #### L 100.0100 #### [facility] [address] [place], [address] Hematocrit (Bld) [Volume fraction] 36.3 % Low 37-47 [facility] Comment on above: Performed By: #### L 100.0100 #### [facility] [address] [place], [address] Hemoglobin (Bld) [Mass/Vol] 12.5 g/dL Normal 12.0-15.0 [facility] Comment on above: Performed By: #### L 100.0100 #### [facility] [address] [place], [address] IG% 0.700 Normal 0.0-0.9 [facility] Comment on above: Result Comment: IG% - Immature Granulocytes (promyelocytes, myelocytes and metamyelocytes) > 1% indicates that a LEFT SHIFT is Present. Performed By: #### L 100.0100 #### [facility] [address] [place], [address] Lymphocytes/100 WBC (Bld) 18.4 % Low 19-41 [facility] Comment on above: Performed By: #### L 100.0100 #### [facility] [address] [place], [address] MCH (RBC) [Entitic mass] 30.3 pg Normal 27.0-32.0 [facility] Comment on above: Performed By: #### L 100.0100 #### [facility] [address] [place], [address] MCHC (RBC) [Mass/Vol] 34.4 g/dL Normal 32-36 [facility] Comment on above: Performed By: #### L 100.0100 #### [facility] [address] [place], [address] MCV (RBC) [Entitic vol] 88.1 fL Normal 81-99 [facility] Comment on above: Performed By: #### L 100.0100 #### [facility] [address] [place], [address] Monocytes/100 WBC (Bld) 6.2 % Normal 0-10 [facility] Comment on above: Performed By: #### L 100.0100 #### [facility] [address] [place], [address] Neutrophils/100 WBC (Bld) 72.9 % High 47-70 [facility] Comment on above: Performed By: #### L 100.0100 #### [facility] [address] [place], [address] Nucleated RBC (Bld) [#/Vol] 0 10*3/uL Normal 0-5 [facility] Comment on above: Performed By: #### L 100.0100 #### [facility] [address] [place], [address] Platelet mean volume (Bld) [Entitic vol] 9.1 fL Normal 6.2-12.0 [facility] Comment on above: Performed By: #### L 100.0100 #### [facility] [address] [place], [address] Platelets (Bld) [#/Vol] 248 10*3/uL Normal 150-450 [facility] Comment on above: Performed By: #### L 100.0100 #### [facility] [address] [place], [address] RBC (Bld) [#/Vol] 4.12 10*6/uL Low 4.2-5.4 [facility] Comment on above: Performed By: #### L 100.0100 #### [facility] [address] [place], [address] RDW SD 44.6 fl High 35.1-43.9 [facility] Comment on above: Performed By: #### L 100.0100 #### [facility] [address] [place], [address] WBC (Bld) [#/Vol] 10.4 10*3/uL Normal 4.4-11.0 [facility] Comment on above: Performed By: #### L 100.0100 #### [facility] [address] [place], [address] Carbon dioxide, total [Moles /volume] in Central venous bloodOrdered By: Aftab Mendoza on 12-21-2024 CO2 [Moles/Vol] 20.6 mmol/L Low 21.0-32.0 [facility] Chloride assayOrdered By: Travis Mendoza on 12-21-2024 Chloride [Moles/Vol] 103 mmol/L 98-108 [facility] Comprehensive Metabolic Prof ilon 12-21-2024 Albumin [Mass/Vol] 3.8 g/dL Normal 3.5-5.0 [facility] Comment on above: Performed By: #### L 500.4050 #### [facility] [address] [place], [address] Albumin/Globulin [Mass ratio] 1.5 {ratio} Normal 0.9-2.4 [facility] Comment on above: Performed By: #### L 500.4050 #### [facility] [address] [place], [address] ALK PHOS 44 U/L Normal 35-104 [facility] Comment on above: Performed By: #### L 500.4050 #### [facility] [address] [place], [address] ALT [Catalytic activity/Vol] 10 U/L Normal <=34 [facility] Comment on above: Performed By: #### L 500.4050 #### [facility] [address] [place], [address] AST [Catalytic activity/Vol] 16 U/L Normal <=31 [facility] Comment on above: Performed By: #### L 500.4050 #### [facility] [address] [place], [address] Bilirubin [Mass/Vol] 0.26 mg/dL Normal 0.00-1.30 [facility] Comment on above: Performed By: #### L 500.4050 #### [facility] [address] [place], [address] BUN/CRE 13.0 RATIO Normal 10-20 [facility] Comment on above: Performed By: #### L 500.4050 #### [facility] [address] [place], [address] Calcium [Mass/Vol] 9.0 mg/dL Normal 7.6-11.0 [facility] Comment on above: Performed By: #### L 500.4050 #### [facility] [address] [place], [address] Chloride [Moles/Vol] 103 mmol/L Normal 98-108 [facility] Comment on above: Performed By: #### L 500.4050 #### [facility] [address] [place], [address] CO2 [Moles/Vol] 20.6 mmol/L Low 21.0-32.0 [facility] Comment on above: Performed By: #### L 500.4050 #### [facility] [address] [place], [address] Creatinine [Mass/Vol] 0.54 mg/dL Low 0.70-1.20 [facility] Comment on above: Performed By: #### L 500.4050 #### [facility] [address] [place], [address] ECRCL 161.60 ml/min Normal 50-250 [facility] Comment on above: Performed By: #### L 500.4050 #### [facility] [address] [place], [address] GAP 13 Normal 5-15 [facility] Comment on above: Performed By: #### L 500.4050 #### [facility] [address] [place], [address] GFR/1.73 sq M.predicted among non-blacks MDRD (S/P/Bld) [Vol rate/Area] 135 mL/min/{1.73_m2} Normal >60 [facility] Comment on above: Result Comment: mL/m in/1.73m2 CKD-EPI Creatinine Equation (2020) Performed By: #### L 500.4050 #### [facility] [address] [place], [address] Globulin (S) [Mass/Vol] 2.6 g/dL Normal 2.2-4.2 [facility] Comment on above: Performed By: #### L 500.4050 #### [facility] [address] [place], [address] Glucose [Mass/Vol] 118 mg/dL High 70-99 [facility] Comment on above: Performed By: #### L 500.4050 #### [facility] [address] [place], [address] Potassium [Moles/Vol] 3.8 mmol/L Normal 3.3-5.1 [facility] Comment on above: Performed By: #### L 500.4050 #### [facility] [address] [place], [address] Sodium [Moles/Vol] 137 mmol/L Normal 133-145 [facility] Comment on above: Performed By: #### L 500.4050 #### [facility] [address] [place], [address] T PROT 6.5 g/dL Normal 5.9-8.4 [facility] Comment on above: Performed By: #### L 500.4050 #### [facility] [address] [place], [address] Urea nitrogen [Mass/Vol] 7 mg/dL Normal 4-19 [facility] Comment on above: Performed By: #### L 500.4050 #### [facility] [address] [place], [address] Emergency Department Summary on 12-21-2024 Emergency Department Summary [facility] Medical Records Department [address] [place] [address] Emergency Department Summary 12/21/24 MR#: [id number] Acct: [id number] Name: PAL NICHOLAS Rep #: [id number] : 2005 19 From: Aftab Mendoza DO [...] management. States that she is following with [facility]. Patient denies any vaginal spotting or bleeding. [facility] Medical History (Updated 12/21/24 @ 23:39 by [...] follow commands knew that she was at [facility] the year is 2024 Skin: Warm, [...] of infection. Discussed the case with on-call AN/SSN 2 [address] OPER[address] [facility] [address] Aragon who states that she [...] 72.9 H Lymph % (Auto) 18.4 L [place] % (Auto) 6.2 Eos % (Auto) 1.4 [...] Clarity Clear Urine pH 6.5 Ur Specific [place] 1.010 Urine Protein N (more content not included)... Normal [facility] Eosinophil percentageOrdered By: Aftab Mendoza on 12-21-2024 Eosinophils/100 WBC (Bld) 1.4 % 0-5 [facility] Erythrocyte distribution wid th ratioOrdered By: Aftab Mendoza on 12-21-2024 Erythrocyte distribution width (RBC) [Ratio] 14.0 % 11.6-14.6 [facility] Erythrocyte distribution wid th standard deviationOrdered By: Aftab Mendoza on 12-21-2024 Erythrocyte distribution width (RBC) [Ratio] 44.6 fl High 35.1-43.9 [facility] Glomerular filtration rate ( GFR) estimation/1.73 sq m using serum, plasma, or whole bOrdered By: Aftab Mendoza on 12-21-2024 GFR/1.73 sq M.predicted among non-blacks MDRD (S/P/Bld) [Vol rate/Area] 135 mL/min/{1.73_m2} >60 [facility] Comment on above: mL/min/1.73m2 CKD-EP I Creatinine Equation (2020) Hematocrit Auto (Bld) [Volum e fraction]Ordered By: Aftab Mendoza on 12-21-2024 Hematocrit (Bld) [Volume fraction] 36.3 % Low 37-47 [facility] Hemoglobin measurementOrdere d By: Aftab Mendoza on 12-21-2024 Hemoglobin (Bld) [Mass/Vol] 12.5 g/dL 12.0-15.0 [facility] Immature granulocytes/100 WB C Auto (Bld)Ordered By: Aftab Mendoza on 12-21-2024 Immature granulocytes/100 WBC (Bld) 0.700 % 0.0-0.9 [facility] Comment on above: IG% - Immature Granu locytes (promyelocytes, myelocytes and metamyelocytes) > 1% indicates that a LEFT SHIFT is Present. Ketones Test strip Ql (U)Ord ered By: Aftab Mendoza on 12-21-2024 Ketones Ql (U) Negative Negative [facility] - Chemistry and C hemistry - challengeOrdered By: Aftab Mendoza on 12-21-2024 AST [Catalytic activity/Vol] 16 U/L <32 [facility] MCV (mean corpuscular volume ) determinationOrdered By: Aftab Mendoza on 12-21-2024 MCV (RBC) [Entitic vol] 88.1 fL 81-99 [facility] Mean corpuscular hemoglobin (MCH) determinationOrdered By: Aftab Mendoza 12-21-2024 MCH (RBC) [Entitic mass] 30.3 pg 27.0-32.0 [facility] Mean corpuscular hemoglobin concentration (MCHC) determinationOrdered By: Aftba Mendoza on 12-21-2024 MCHC (RBC) [Mass/Vol] 34.4 g/dL 32-36 [facility] Mean platelet volume determi nationOrdered By: Aftab Mendoza on 12-21-2024 Platelet mean volume (Bld) [Entitic vol] 9.1 fL 6.2-12.0 [facility] Microscopic analysis of urin e for red blood cells (RBC)Ordered By: Aftab Mendoza on 12-21-2024 Microscopic analysis of urine for red blood cells (RBC) 0-5 SEEN /hpf 0-5 [facility] Monocyte percentageOrdered B y: Aftab Mendoza on 12-21-2024 Monocytes/100 WBC (Bld) 6.2 % 0-10 [facility] Mucus LM Ql (Urine sed)Order ed By: Aftab Mendoza on 12-21-2024 Mucus Ql (Urine sed) 0 SEEN /hpf [facility] Neutrophil percentageOrdered By: Aftab Mendoza on 12-21-2024 Neutrophils/100 WBC (Bld) 72.9 % High 47-70 [facility] Nitrite Test strip Ql (U)Ord ered By: Aftab Mendoza on 12-21-2024 Nitrite Ql (U) Negative Negative [facility] Nucleated red blood cell per centageOrdered By: Aftab Mendoza on 12-21-2024 Nucleated RBC/100 WBC (Bld) [Ratio] 0 % 0-5 [facility] Platelet countOrdered By: Travis Mendoza on 12-21-2024 Platelets (Bld) [#/Vol] 248 10*3/uL 150-450 [facility] Potassium measurement (mass/ volume)Ordered By: Aftab Mendoza on 12-21-2024 Potassium (Unsp spec) [Mass/Vol] 3.8 mmol/L 3.3-5.1 [facility] Protein Test strip Ql (U)Ord ered By: Aftab Mendoza on 12-21-2024 Protein Ql (U) Negative Negative [facility] RBC Auto (Bld) [#/Vol]Ordere d By: Aftab Mendoza on 12-21-2024 RBC (Bld) [#/Vol] 4.12 10*6/uL Low 4.2-5.4 [facility] Serum creatinine measurement (mass/volume)Ordered By: Aftab Mendoza on 12-21-2024 Creatinine [Mass/Vol] 0.54 mg/dL Low 0.70-1.20 [facility] Serum globulin measurementOr dered By: Aftab Mendoza on 12-21-2024 Globulin (S) [Mass/Vol] 2.6 g/dL 2.2-4.2 [facility] Serum glucose measurement (m ass/volume)Ordered By: Aftab Mendoza on 12-21-2024 Glucose [Mass/Vol] 118 mg/dL High 70-99 [facility] Serum or plasma alanine [place] otransferase (ALT) measurementOrdered By: Aftab Mendoza on 12-21-2024 ALT [Catalytic activity/Vol] 10 U/L <35 [facility] Serum or plasma albumin mak urement (mass/volume)Ordered By: Aftab Mendoza on 12-21-2024 Albumin [Mass/Vol] 3.8 g/dL 3.5-5.0 [facility] Serum or plasma albumin/glob ulin mass ratioOrdered By: Aftab Mendoza on 12-21-2024 Albumin/Globulin [Mass ratio] 1.5 {ratio} 0.9-2.4 [facility] Serum or plasma alkaline cristofer sphatase measurementOrdered By: Aftab Mendoza on 12-21-2024 ALP [Catalytic activity/Vol] 44 U/L 35-104 [facility] Serum or plasma calcium mak urement (mass/volume)Ordered By: Aftab Mendoza on 12-21-2024 Calcium [Mass/Vol] 9.0 mg/dL 7.6-11.0 [facility] Serum or plasma urea nitroge n measurement (mass/volume)Ordered By: Aftab Mendoza on 12-21-2024 Urea nitrogen [Mass/Vol] 7 mg/dL 4-19 [facility] Sodium levelOrdered By: Chino Mendoza on 12-21-2024 Sodium [Moles/Vol] 137 mmol/L 133-145 [facility] Squamous epithelial cells de tection in urine sediment by light microscopyOrdered By: Aftab Mendoza on 12-21-2024 Epithelial cells.squamous LM Ql (Urine sed) 0-5 SEEN /hpf 5-10 [facility] Total proteinOrdered By: Gustavo Mendoza on 12-21-2024 Protein [Mass/Vol] 6.5 g/dL 5.9-8.4 [facility] Urinalysis, Completeon 12-21 EPI,SQUAMOUS 0-5 SEEN Normal 5-10 [facility] Comment on above: Order Comment: CLEAN CATCH Performed By: #### [id number] #### [facility] [address] [place], [address] RBC 0-5 SEEN Normal 0-5 [facility] Comment on above: Order Comment: CLEAN CATCH Performed By: #### [id number] #### [facility] [address] [place], [address] WBC 0-5 SEEN Normal 0-5 [facility] Comment on above: Order Comment: CLEAN CATCH Performed By: #### [id number] #### [facility] [address] [place], [address] BACTERIA 0 SEEN Normal None Seen [facility] Comment on above: Order Comment: CLEAN CATCH Performed By: #### [id number] #### [facility] [address] [place], [address] Mucus Ql (Urine sed) 0 SEEN Normal [facility] Comment on above: Order Comment: CLEAN CATCH Performed By: #### [id number] #### [facility] [address] [place], [address] Urine clarityOrdered By: Gustavo Mendoza on 12-21-2024 Clarity (U) Clear Clear [facility] Urine color determinationOrd ered By: Aftab Mendoza on 12-21-2024 Color (U) Yellow Yellow [facility] Urine cultureOrdered By: Gustavo Mendoza on 12-21-2024 Bacteria identified Cx Nom (U) Positive Abnormal [facility] Urine glucose detectionOrder ed By: Aftab Mendoza on 12-21-2024 Glucose Ql (U) Normal mg/dl Normal [facility] Urine leukocyte esterase det ection by dipstickOrdered By: Aftab Mendoza on 12-21-2024 Leukocyte esterase Test strip Ql (U) Negative Negative [facility] Urine pHOrdered By: Aftab valentin on 12-21-2024 pH (U) 6.5 [pH] 5.0 - 8.0 [facility] Urine sediment bacteria coun t by microscopy (number/high power field)Ordered By: Aftab Mendoza on 12-21-2024 Bacteria LM.HPF (Urine sed) [#/Area] 0 /[HPF] None Seen [facility] Urine specific gravity measu rementOrdered By: Aftab Mendoza on 12-21-2024 Specific gravity (U) [Rel density] 1.010 1.002-1.030 [facility] Urine urobilinogen measureme ntOrdered By: Aftab Mendoza on 12-21-2024 Urobilinogen Ql (U) Normal mg/dl Normal [facility] White blood cell (WBC) count Ordered By: Aftab Mendoza on 12-21-2024 WBC (Bld) [#/Vol] 10.4 10*3/uL 4.4-11.0 [facility] White blood cell countOrdere d By: Aftab Mendoza on 12-21-2024 White blood cell count 0-5 SEEN /hpf 0-5 [facility] CNPNon 12-01-2024 CNPN Telephone ([facility]GFVWE) PAL NICHOLAS ([id number]) 3 F Date Time Provider Department 12/01/24 NURSE [facility] During your visit today, we recorded the following information about you: Maria Alejandra Kay, RN 12/01/2024 8:37 AM Signed ----- Message from Rica Pendleton sent at 11/30/2024 4:05 PM EDT ----- Regarding: New/MELVIN OB 16 weeks Patient has been identified by name and Date of : Yes Patient: Pal Nicholas Date of : 2005 Provider for this encounter : [facility] Reason for call: New OB patient (16 weeks as of 11/30/24), [place] from [place] Was an appointment scheduled: No Reason for requesting visit (RFV/signs and symptoms/diagnosis) : Establish with OB at [facility] for continuation of care. Person calling: self Return call to: self Call patient at: [phone] (cell), it is OK to leave message [...] and verified. Patient wishes to transfer to [facility] for OB care. AMARI? 05/31/25 Gestational age? 14w1d Patient aware to sign up for My Chart so she can receive the post acute care nurse messages. What facility is she transferring from? [place] [facility] in [place] Moving to [place] in 2 weeks and will be approx [...] would the patient like to establish in? [place] Will route this encounter to the desired office. Maria Alejandra Kay RN Allergies As of Date: 12/01/2024 (Not on File) Date Reviewed: Never Reviewed Reason for Visit: Care Coordination [3491] Problem List As Of Date: 12/01/2024 (None) Encounter Status:Closed by MAGDA HAGEN on 12/02/24 Normal [facility] Vital Signs Date Time Vital Sign Value Performing Clinician Adina salmon 02-23-2025 20:56-0400 Body height 170.[address] Aftab Mendoza DO Work Phone: 5(833)982-742232 [place] [address] 02-23-2025 20:56-0400 Body mass index (BMI) [Ratio] 28.5 kg/m2 Dr. Aftab Mendoza DO Work Phone: 5(380)695-147532 [place] [address] 02-23-2025 20:56-0400 Body weight 82.[address] Aftab Mendoza DO Work Phone: 6(833)848-471930 [address] 02-13-2025 22:31-0400 Diastolic blood pressure 73 mm[Hg] Dr. Aftab Mendoza DO Work Phone: 5(034)646-984332 [place] [address] 02-13-2025 22:31-0400 Heart rate 95 /min Dr. Aftab Mendoza DO Work Phone: 2(577)688-566832 [place] [address] 02-13-2025 22:31-0400 Systolic blood pressure 120 mm[Hg] Dr. Aftab Mendoza DO Work Phone: 9(498)297-759432 [place] [address] 02-13-2025 22:07-0400 Body temperature 98.6 [degF] Dr. Aftab Mendoza DO Work Phone: 9(054)416-005632 [place] [address] 02-13-2025 22:07-0400 Respiratory rate 16 /min Dr. Aftab Mendoza DO Work Phone: 4(778)944-814732 [place] [address] 02-13-2025 21:53-0400 Body height 170.[address] fAtab Mendoza DO Work Phone: 7(768)278-176732 [place] [address] 02-13-2025 21:53-0400 Body mass index (BMI) [Ratio] 27.7 kg/m2 Dr. Aftab Mendoza DO Work Phone: 1(148)398-903332 [place] [address] 02-13-2025 21:53-0400 Body weight 80.[address] Aftab Mendoza DO Work Phone: [facility] 02-08-2025 10:33-0400 Body mass index (BMI) [Ratio] 27.57 kg/m2 Lynnette Tapia TRAIN GATEMAN.CNM Work Phone: [facility] 02-08-2025 10:33-0400 Body weight 79.83 kg Lynnette Tapia TRAIN GATEMAN.CNM Work Phone: [facility] 02-08-2025 10:33-0400 Diastolic blood pressure 74 mm[Hg] Lynnette Tapia TRAIN GATEMAN.CNM Work Phone: [facility] 02-08-2025 10:33-0400 Systolic blood pressure 126 mm[Hg] Lynnetteleonard Tapia TRAIN GATEMAN.CNM Work Phone: [facility] 02-05-2025 15:26-0400 Diastolic blood pressure 78 mm[Hg] Dr. Aftab Mendoza DO Work Phone: [facility] 02-05-2025 15:26-0400 Heart rate 80 /min Dr. Aftab Mendoza DO Work Phone: [facility] 02-05-2025 15:26-0400 Systolic blood pressure 124 mm[Hg] Dr. Aftab Mendoza DO Work Phone: [facility] 02-05-2025 15:10-0400 Body temperature 99 [degF] Dr. Aftab Mendoza DO Work Phone: [facility] 02-05-2025 15:10-0400 Respiratory rate 16 /min Dr. Aftab Mendoza DO Work Phone: [facility] 02-05-2025 15:10-0400 SaO2% (BldA) [Mass fraction] 96 % Dr. Aftab Mendoza DO Work Phone: [facility] 02-04-2025 22:37-0400 Body temperature 99.4 [degF] Dr. Aftab Mendoza DO Work Phone: [facility] 02-04-2025 22:37-0400 Diastolic blood pressure 84 mm[Hg] Dr. Aftab Mendoza DO Work Phone: 6(906)455-182632 [place] [address] 02-04-2025 22:37-0400 Heart rate 92 /min Dr. Aftab Mendoza DO Work Phone: 0(123)728-490632 [place] [address] 02-04-2025 22:37-0400 Respiratory rate 16 /min Dr. Aftab Mendoza DO Work Phone: 3(498)430-108832 [place] [address] 02-04-2025 22:37-0400 Systolic blood pressure 129 mm[Hg] Dr. Aftab Mendoza DO Work Phone: 7(367)181-002132 [place] [address] 02-04-2025 22:23-0400 Body height 170.[address] Aftab Mendoza DO Work Phone: 3(395)751-236112 [place] [address] 02-04-2025 22:23-0400 Body mass index (BMI) [Ratio] 27.2 kg/m2 Dr. Aftab Mendoza DO Work Phone: 5(573)854-153932 [place] [address] 02-04-2025 22:23-0400 Body weight 78.[address] Aftab Mendoza DO Work Phone: 7(318)784-132532 [place] [address] 02-02-2025 21:12-0400 Body temperature 98.8 [degF] Dr. Aftab Mendoza DO Work Phone: 6(825)685-329132 [place] [address] 02-02-2025 21:12-0400 Diastolic blood pressure 78 mm[Hg] Dr. Aftab Mendoza DO Work Phone: 6(804)602-649532 [place] [address] 02-02-2025 21:12-0400 Heart rate 109 /min Dr. Aftab Mendoza DO Work Phone: 9(267)270-766532 [place] [address] 02-02-2025 21:12-0400 Respiratory rate 16 /min Dr. Aftab Mendoza DO Work Phone: 5(889)964-117332 [place] [address] 02-02-2025 21:12-0400 SaO2% (BldA) [Mass fraction] 98 % Dr. Aftab Mendoza DO Work Phone: 7(756)222-569932 [place] [address] 02-02-2025 21:12-0400 Systolic blood pressure 123 mm[Hg] Dr. Aftab Mendoza DO Work Phone: [facility] 02-02-2025 21:07-0400 Body height 170.[address] Aftab Mendoza DO Work Phone: [facility] 02-02-2025 21:07-0400 Body mass index (BMI) [Ratio] 27.2 kg/m2 Dr. Aftab Mendoza DO Work Phone: [facility] 02-02-2025 21:07-0400 Body weight 78.[address] Aftab Mendoza DO Work Phone: [facility] 02-02-2025 14:04-0400 Body mass index (BMI) [Ratio] 27.41 kg/m2 Lester Phillips MD Work Phone: [facility] 02-02-2025 14:04-0400 Body weight 79.38 kg Lester Phillips MD Work Phone: [facility] 02-02-2025 14:04-0400 Diastolic blood pressure 78 mm[Hg] Lester Phillips MD Work Phone: [facility] 02-02-2025 14:04-0400 Systolic blood pressure 122 mm[Hg] Lester Phillips MD Work Phone: [facility] 01-20-2025 09:55-0400 Body mass index (BMI) [Ratio] 26.31 kg/m2 Karina Blanco MD Work Phone: [facility] 01-20-2025 09:55-0400 Body weight 76.2 kg Karina Blanco MD Work Phone: [facility] 01-20-2025 09:55-0400 Diastolic blood pressure 62 mm[Hg] Karina Blanco MD Work Phone: [facility] 01-20-2025 09:55-0400 Systolic blood pressure 116 mm[Hg] Karina Blanco MD Work Phone: [facility] 01-11-2025 15:00-0400 Body mass index (BMI) [Ratio] 25.34 kg/m2 Ramakrishna Corley MD Work Phone: [facility] 01-11-2025 15:00-0400 Body weight 73.39 kg Ramakrishna Corley MD Work Phone: [facility] 01-11-2025 15:00-0400 Diastolic blood pressure 70 mm[Hg] Ramakrishna Corley MD Work Phone: [facility] 01-11-2025 15:00-0400 Systolic blood pressure 110 mm[Hg] Ramakrishna Corley MD Work Phone: [facility] 12-28-2024 08:46-0400 Body height 170.2 cm Lynnette Plotts TRAIN GATEMAN.CNM Work Phone: [facility] 12-28-2024 08:46-0400 Body mass index (BMI) [Ratio] 24.9 kg/m2 Lynnette Plotts TRAIN GATEMAN.CNM Work Phone: [facility] 12-28-2024 08:46-0400 Body weight 72.12 kg Lynnette Plotts TRAIN GATEMAN.CNM Work Phone: [facility] 12-28-2024 08:46-0400 Diastolic blood pressure 74 mm[Hg] Lynnette Plotts TRAIN GATEMAN.CNM Work Phone: [facility] 12-28-2024 08:46-0400 Systolic blood pressure 114 mm[Hg] Lynnette Plotts TRAIN GATEMAN.CNM Work Phone: [facility] 12-22-2024 00:00-0400 Heart rate 81 /min Dr. Aftab Mendoza DO Work Phone: [facility] 12-22-2024 00:00-0400 Respiratory rate 16 /min Dr. Aftab Mendoza DO Work Phone: [facility] 12-22-2024 00:00-0400 SaO2% (BldA) [Mass fraction] 98 % Dr. Aftab Mendoza DO Work Phone: [facility] 12-21-2024 23:57-0400 Body temperature 97.4 [degF] Dr. Aftab Mendoza DO Work Phone: [facility] 12-21-2024 23:57-0400 Diastolic blood pressure 58 mm[Hg] Dr. Aftab Mendoza DO Work Phone: [facility] 12-21-2024 23:57-0400 Systolic blood pressure 110 mm[Hg] Dr. Aftab Mendoza DO Work Phone: [facility] 12-21-2024 20:27-0400 Body height 170.[address] Aftab Mendoza DO Work Phone: [facility] 12-21-2024 20:27-0400 Body mass index (BMI) [Ratio] 24.4 kg/m2 Dr. Aftab Mendoza DO Work Phone: [facility] 12-21-2024 20:27-0400 Body weight 70.[address] Aftab Mendoza DO Work Phone: [facility] Encounters Encounter Date Encounter Type Care Provider Facility Start: 03-15-2025 End: 03-15-2025 ambulatory [facility] Facility:[facility] Start: 03-13-2025 End: 03-13-2025 ambulatory Patsy Athens Facility:[facility] Start: 03-11-2025 End: 03-11-2025 ambulatory [facility] Facility:[facility] Start: 03-08-2025 End: 03-08-2025 ambulatory REGGIE MA Facility:[facility] Start: 02-23-2025 End: 02-23-[address] Aftab Mendzoa DO Work Phone: [facility] Start: 02-23-2025 End: 02-23-2025 Patient encounter procedure Patsy March [facility] Work Phone: Start: 02-18-2025 End: 02-18-2025 ambulatory [facility] Facility:[facility] Start: 02-16-2025 End: 02-16-2025 ambulatory LESTER PHILLIPS Facility:[facility] Start: 02-13-2025 End: 02-13-[address] Aftab Mendoza DO Work Phone: -[facility] Start: 02-13-2025 End: 02-13-[address] Magda Aragon MD -[facility] Work Phone: Start: 02-13-2025 End: 02-13-2025 Emergency department patient visit ALEXA [place] Facility:[facility] Start: 02-08-2025 End: 02-08-2025 Patient encounter procedure Lynnette Tapia APRN.CNM Work Phone: OB/Gynecology Comment on above: Encounter for superv ision of normal first in second trimester (HCC) (Primary Dx); 24 weeks gestation of (HCC); Screening for diabetes mellitus; Vaginal discharge during in second trimester (HCC) Start: 02-08-2025 End: 02-08-2025 ambulatory LYNNETTE TAPIA Facility:[facility] Start: 02-05-2025 End: 02-05-2025 Telephone encounter Lynnette Tapia APRN.CNM Work Phone: OB/Gynecology Comment on above: Contractions Start: 02-04-2025 End: 02-05-[address] Aftab Mendoza DO Work Phone: -[facility] Start: 02-04-2025 End: 02-05-[address] Ramakrishna Corley DO -[facility] Work Phone: Start: 02-02-2025 End: 02-02-2025 [...] ision of normal first in second trimester ([facility]) (Primary Dx); Vaginal discharge; 21 weeks gestation of ([facility]); Abdominal pain affecting ([facility]) Start: 01-20-2025 End: 01-20-2025 ambulatory KARINA BLANCO Facility:[facility] Start: 01-19-2025 End: 01-20-2025 ambulatory Ramakrishna Corley MD Work Phone: OB/Gynecology Start: 01-19-2025 End: 01-20-2025 Follow-up encounter Ramakrishna Corley MD Work Phone: OB/Gynecology Comment on above: Follow up from ER Start: 01-18-2025 End: 01-19-2025 Emergency department patient visit NUZHAT ZAMORANO Facility:[facility] Start: 01-18-2025 End: 01-20-2025 Telephone encounter Lynnette Tapia APRN.CNM Work Phone: OB/Gynecology Comment on above: Breast Pump Start: 01-14-2025 End: 01-14-2025 Telephone encounter Ramakrishna Corley MD Work Phone: OB/Gynecology Comment on above: Orders Start: 01-12-2025 End: 01-12-2025 ambulatory RAMAKRISHNA CORLEY Facility:[facility] Start: 01-11-2025 End: 01-11-2025 Patient encounter procedure Ramakrishna Corley MD Work Phone: OB/Gynecology Comment on above: Bacterial vaginosis (Primary Dx); 20 weeks gestation of (HCC); Burning with urination; Palpitations; Other fatigue; Weakness; Encounter for supervision of normal first in second trimester ([facility]) POTS (postural ortho static tachycardia syndrome) (Primary Dx); Visit for screening ([facility]); 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[facility]); Chronic hypertension affecting ([facility]) Start: 01-11-2025 End: 01-11-2025 ambulatory [facility] Facility:[facility] Start: 01-07-2025 End: 01-12-2025 Telephone encounter Ej Rodriguez MD Work Phone: [facility] Comment on above: Appointment Start: 01-06-2025 End: 01-06-2025 Emergency department patient visit ALEXA DICKSON Facility:[facility] Start: 01-06-2025 End: 01-07-2025 Telephone encounter Karina Addison TRAIN GATEMAN.CNM Work Phone: OB/Gynecology Comment on above: OB Vaginal Pressure Start: 01-05-2025 End: 01-05-2025 Telephone encounter Jayla Keller MD Work Phone: [facility] Comment on above: OB Pain Start: 01-04-2025 End: 01-05-2025 ambulatory NUZHAT ZAMORANO Facility:[facility] Start: 01-04-2025 End: 01-21-2025 Telephone encounter Magda Aragon MD Work Phone: OB/Gynecology Comment on above: Low back aching/cram ping pelvic region Start: 12-30-2024 End: 12-30-2024 ambulatory [facility] Facility:[facility] Start: 12-28-2024 End: 12-28-2024 Patient encounter procedure Lynnette Tapia TRAIN GATEMAN.CNM Work Phone: OB/Gynecology Comment on above: Visit for s creening (HCC) (Primary Dx); 18 weeks gestation of (HCC); Encounter for supervision of high risk in second trimester, antepartum (HCC); 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HCC); POTS (postural orthostatic tachycardia syndrome); Cystic fibrosis carrier; Screening for STD (sexually transmitted disease); Abdominal pain during in second trimester (HCC); Bacterial vaginosis Start: 12-28-2024 End: 12-28-2024 ambulatory [facility] Facility:[facility] Start: 12-25-2024 End: 12-25-2024 Telephone encounter Lynnette Tapia TRAIN GATEMAN.CNM Work Phone: OB/Gynecology Comment on above: Received Outside Med ical Records Start: 12-22-2024 End: 12-22-2024 ambulatory MARK FOREMAN Facility[facility] Start: 12-22-2024 End: 12-22-2024 Telephone encounter Karina Addison MD Work Phone: OB/Gynecology Comment on above: OB Pelvic Pain Start: 12-21-2024 End: 12-22-2024 Emergency department patient visit Dr. Aftab Mendoza DO Work Phone: -Emergency Department Work Phone: Start: 12-01-2024 End: 12-02-2024 Telephone encounter Nurse Die Maker [employer] [facility] Work Phone: Obstetrics/Gynecology Comment on above: Care Coordination Procedures Date Procedure Procedure Detail Performing Clinician Start: 03-11-2025 Antibody screen JACKIE TAPIA Comment on above: Order Comment: Speci men Type: BLOOD SPECIMENOrdering Facility: [facility] Address: [address] [place] [address] Performed By: #### T SPN ####[facility] LABCLIA [id number] [place] [address] [place] Start: 02-08-2025 Urnls dip stick/tabl et rgnt auto w/o microscopy Lynnette Tapia TRAIN GATEMAN.[facility] Work Phone: Start: 02-08-2025 BACTERIAL VAGINOSIS NAAT Lynnette Tapia TRAIN GATEMAN.CN Work Phone: Start: 02-08-2025 Iadna trichomonas va ginalis amplified probe tech Lynnette Tapia TRAIN GATEMAN.CNM Work Phone: Start: 02-04-2025 Urnls dip stick/tabl [...] after 1st trimest 05/27 gestation Lynnette Tapia TRAIN GATEMAN.[facility] Work Phone: Start: 01-11-2025 Urnls dip stick/tabl [...] Scree hernando () GC (Gonorrhea) Screening () [facility] Start: 01-06-2026 Screening for Chlamy eva trachomatis Chlamydia Screening () [facility] Start: 04-05-2025 RSV Vaccine (1 - Ris k 1-dose series) RSV Vaccine (1 - Risk 1-dose series) [facility] Start: 03-11-2025 End: 03-11-2025 Patient encounter procedure Maternal Medicine Comment on above: Growth Growth/OB Start: 03-11-2025 End: 03-11-2025 ambulatory 03/11/2025 9:45 AM EDT Results Only Tito Amado [facility] [address] [place] [address] Glucose Test [facility] Comment on above: Glucose Test Start: 03-08-2025 End: 03-08-2025 Patient encounter procedure 03/08/2025 9:20 AM EDT Office Visit [facility] [address] [facility] [address] [place] [address] Reggie Ma MD [address] [facility] [address] [place] [address] est care, hx EDS and POTS, EKG non-specific ST-T wave abnormality, currently . MS/ EKG kk [facility] Comment on above: est care, hx EDS and POTS, EKG non-specific ST-T wave abnormality, currently . MS/ EKG kk Start: 02-23-2025 Patient discharge [facility] Start: 02-13-2025 Nonstress test [facility] Start: 02-13-2025 Obstetric monitoring [facility] Start: 02-13-2025 Vital signs measurements [facility] Start: 02-13-2025 [facility] Start: 02-13-2025 Patient discharge [facility] Start: 02-08-2025 End: 05-10-2025 ANEMIA REFLEX PANEL ANEMIA REFLEX PANEL Lab Routine Encounter for supervision of normal first in second trimester (HCC) 24 weeks gestation of (HCC) Expected: 02/08/2025, Expires: 05/10/2025 [facility] Comment on above: Expected: 02/08/2025 , Expires: 05/10/2025 Start: 02-08-2025 End: 02-08-2026 GESTATIONAL GLUCOSE SCREEN, 1-HOUR, 50 GRAM, NON-FASTING GESTATIONAL GLUCOSE SCREEN, 1-HOUR, 50 GRAM, NON-FASTING Lab Routine Encounter for supervision of normal first in second trimester (HCC) 24 weeks gestation of (HCC) Screening for diabetes mellitus Expected: 02/08/2025, Expires: 02/08/2026 [facility] Work Phone: Comment on above: Expected: 02/08/2025 , Expires: 02/08/2026 Start: 02-08-2025 End: 02-08-2026 SYPHILIS TREPONEMAL W/REFLEX SYPHILIS TREPONEMAL W/REFLEX Lab Routine Encounter for supervision of normal first in second trimester (HCC) 24 weeks gestation of (HCC) Expected: 02/08/2025, Expires: 02/08/2026 [facility] Comment on above: Expected: 02/08/2025 , Expires: 02/08/2026 Start: 02-08-2025 End: 02-08-2025 Patient encounter procedure 02/08/2025 10:30 AM EDT Routine Office Visit OB/Gynecology [address] [place], [place] [id number] Lynnette Tapia APRN.CNM [address] [place] [address] LMP:08/24/24, New OB 12/28/24 OB/Gynecology Comment on above: LMP:08/24/24, New 1st OB 12/28/24 Start: 02-05-2025 End: 02-05-2025 Patient encounter procedure [facility] Comment on above: est care, hx EDS and POTS, EKG non-specific ST-T wave abnormality, currently . MS est care, hx EDS and POTS, EKG non-specific ST-T wave abnormality, currently . MS/ EKG kk Start: 02-05-2025 [facility] Start: 02-05-2025 Patient discharge [facility] Start: 02-04-2025 Nonstress test [facility] Start: 02-04-2025 Obstetric monitoring [facility] Start: 02-04-2025 Vital signs measurements [facility] Start: 02-04-2025 [facility] Start: 02-04-2025 Bacteria identified in Urine by Culture Urine Culture [facility] Start: 02-02-2025 End: 02-02-2025 [facility] Start: 02-02-2025 Nonstress test [facility] Start: 02-02-2025 Obstetric monitoring [facility] Start: 02-02-2025 Vital signs measurements [facility] Start: 02-02-2025 [facility] Start: 02-02-2025 Bacteria identified in Urine by Culture Urine Culture [facility] Start: 02-02-2025 Patient discharge [facility] Start: 01-28-2025 End: 01-28-2025 Patient encounter procedure 01/28/2025 10:00 AM EDT Routine Office Visit OB/Gynecology [address] [place] [address] Magda Aragon MD [address] [place] [address] LMP:08/24/24, New 1st OB 12/28/24 OB/Gynecology Comment on above: LMP:08/24/24, New 1st OB 12/28/24 Start: 01-25-2025 Influenza vaccination Influenza Vacc ine (#1) [facility] Start: 01-11-2025 End: 01-11-2025 Patient encounter procedure Maternal Medicine Comment on above: Anatomy Anatomy/OB Start: 01-11-2025 End: 04-12-2025 TSH W/REFLEX FT4 TSH W/REFLEX FT4 Lab Routine Palpitations Other fatigue Weakness Expected: 01/11/2025, Expires: 04/12/2025 [facility] Comment on above: Expected: 01/11/2025 , Expires: 04/12/2025 Start: 12-28-2024 End: 12-28-2025 OBSTETRIC ULTRASOUND WHI OBSTETRIC ULTRASOUND WHI Anc Imaging Routine Visit for screening (HCC) Expected: 12/28/2024, Expires: 12/28/2025 [facility] Work Phone: Comment on above: Expected: 12/28/2024 , Expires: 12/28/2025 Start: 12-28-2024 End: 12-28-2024 Patient encounter procedure OB/Gynecology Comment on above: LMP:08/24/24 LMP:08/24/24 - record s in chart prep binder Start: 12-21-2024 [facility] Start: 12-21-2024 [facility] Start: 12-21-2024 Bacteria identified in Urine by Culture Urine Culture [facility] Start: 01-26-2024 Covid-19 Vaccine ( season) Covid-19 Vaccine ( season) [facility] Start: 11-25-2023 Hepatitis B Vaccine (1 of 3 - 19+ 3-dose series) Hepatitis B Vaccine (1 of 3 - 19+ 3-dose series) [facility] Start: 11-25-2023 Urine microalbumin profile DTaP,Tdap,Td Vaccine (1 - Tdap) [facility] Start: 2022 Anxiety Screening Anxiety Screening [facility] Start: 2022 Depression Screening Depression Scre ening [facility] Start: 2022 GC (Gonorrhea) Scree hernando (1824) GC (Gonorrhea) Screening (-) [facility] Start: 2022 Hepatitis C screening Hepatitis C Sc reening [facility] Start: 2022 HIV screening HIV Screening [facility] Start: 2022 Screening for Chlamy eva trachomatis Chlamydia Screening () [facility] Start: 2020 Meningococcal B Vacc ine (1 of 2 - Standard) Meningococcal B Vaccine (1 of 2 - Standard) [facility] Start: 11-25-2019 HPV Vaccine (1 - 3-d ose series) HPV Vaccine (1 - 3-dose series) [facility] Start: 2018 Peds To Adult Transi tion Annual Assessment Peds To Adult Transition Annual Assessment [facility] Start: 2016 Peds To Adult Transi tion Initial Discussion Peds To Adult Transition Initial Discussion [facility] Bacteria identified in Urine by Culture BACTERIAL CULTURE, URINE Microbiology Routine Burning with urination Ordered: 01/11/2025 [facility] Comment on above: Ordered: 01/11/2025 Bacteria identified in Urine by Culture BACTERIAL CULTURE, URINE Microbiology Routine Vaginal discharge during in second trimester ([facility]) 02/08/2025 11:17 AM EDT [facility] BACTERIAL VAGINOSIS NAAT BACTERI AL VAGINOSIS NAAT Lab Routine Visit for screening ([facility]) 12/28/2024 11:27 AM EDT [facility] BACTERIAL VAGINOSIS NAAT BACTERI AL VAGINOSIS NAAT Lab Routine Bacterial vaginosis Ordered: 01/11/2025 [facility] Work Phone: Comment on above: Ordered: 01/11/2025 PARVEEN/TRICHOMONAS NAAT PAREVEN /TRICHOMONAS NAAT Lab Routine Visit for screening ([facility]) 12/28/2024 11:27 AM EDT [facility] PARVEEN/TRICHOMONAS NAAT PARVEEN /TRICHOMONAS NAAT Lab Routine Bacterial vaginosis Ordered: 01/11/2025 [facility] Comment on above: Ordered: 01/11/2025 Patient Education Kick Counts ED False Labor OB Triage: Return to Hospital or Notify Physician if you Experience: [facility] Work Phone: Urine [facility] Urine [facility] Payers Date Payer Category Payer Self-pay 2023 [employer] BLUE CARD PPO OOS [id number] 2023 Unknown [id number] Unknown [id number] Unknown [id number] Unknown [id number] Unknown [id number] Unknown [id number] Unknown [id number] Social History Date Type Detail Facility Tobacco smoking stat us NHIS Tobacco smoking consumption unknown [facility] Start: 2005 Sex assigned at Not on file [facility] Start: 12-28-2024 End: 01-11-2025 Gender identity Not on file [facility] Start: 12-21-2024 End: 12-28-2024 Tobacco smoking status NHIS Never smoked tobacco (finding) [facility] Start: 2005 Sex Assigned At Female [facility] Start: 09-07-2024 [facility] Start: 12-28-2024 Tobacco use and exposure Smokeless tobacco non-user [facility] Start: 12-28-2024 End: 01-11-2025 History of Social function [facility] Start: 11-30-2024 Adult Depression Screening Assessment 0 [facility] Goals Date Patient Goal Desired Activity /State Personal health goal Personal health goal Functional Status Date Assessment Result Facility 01-19-2025 Are you deaf, or do you have serious difficulty hearing No 01/19/2025 3:40 AM Armida Owens RN [facility] 01-19-2025 Are you blind, or do you have serious difficulty seeing, even when wearing glasses No 01/19/2025 3:40 AM Armida Owens RN No [facility] 01-19-2025 Do you have serious difficulty walking or climbing stairs No 01/19/2025 3:40 AM Armida Owens RN No [facility] 01-19-2025 Do you have difficul ty dressing or bathing No 01/19/2025 3:40 AM Armida Owens RN No [facility] 01-19-2025 Because of a physica l, mental, or emotional condition, do you have difficulty doing errands alone such as visiting a physician's office or shopping No 01/19/2025 3:40 AM Armida Owens RN No [facility] 01-06-2025 Are you deaf, or do you have serious difficulty hearing No 01/06/2025 10:25 PM Benita Yeager RN No [facility] 01-06-2025 Are you blind, or do you have serious difficulty seeing, even when wearing glasses No 01/06/2025 10:25 PM Benita Yeager RN No [facility] 01-06-2025 Do you have serious difficulty walking or climbing stairs No 01/06/2025 10:25 PM MEGT Benita Bradley RN No [facility] 01-06-2025 Do you have difficul ty dressing or bathing No 01/06/2025 10:25 PM Benita Yeager RN No [facility] 01-06-2025 Because of a physica l, mental, or emotional condition, do you have difficulty doing errands alone such as visiting a physician's office or shopping No 01/06/2025 10:25 PM MEGT Benita Bradley RN No [facility] 01-05-2025 Are you deaf, or do you have serious difficulty hearing No 01/05/2025 2:21 AM Ayanna Price RN No [facility] 01-05-2025 Are you blind, or do you have serious difficulty seeing, even when wearing glasses No 01/05/2025 2:21 AM Ayanna Price, LEVON No [facility] 01-05-2025 Do you have serious difficulty walking or climbing stairs No 01/05/2025 2:21 AM Ayanna Price, LEVON No [facility] 01-05-2025 Do you have difficul ty dressing or bathing No 01/05/2025 2:21 AM Ayanna Price, LEVON No [facility] 01-05-2025 Because of a physica l, mental, or emotional condition, do you have difficulty doing errands alone such as visiting a physician's office or shopping No 01/05/2025 2:21 AM Ayanna Price, LEVON No [facility] 12-22-2024 Are you deaf, or do you have serious difficulty hearing No 12/22/2024 9:46 PM EDT Armida Pennington RN No [facility] 12-22-2024 Are you blind, or do you have serious difficulty seeing, even when wearing glasses No 12/22/2024 9:46 PM MEGT Armida Pennington RN No [facility] 12-22-2024 Do you have serious difficulty walking or climbing stairs No 12/22/2024 9:46 PM MEGT Armida Pennington RN No [facility] 12-22-2024 Do you have difficul ty dressing or bathing No 12/22/2024 9:46 PM MEGT Armida Pennington, LEVON No [facility] 12-22-2024 Because of a physica l, mental, or emotional condition, do you have difficulty doing errands alone such as visiting a physician's office or shopping No 12/22/2024 9:46 PM MEGT Armida Pennington RN No [facility] Mental Status Date Assessment Result Facility 01-19-2025 Because of a physica l, mental, or emotional condition, do you have serious difficulty concentrating, remembering, or making decisions No 01/19/2025 3:40 AM EDT Armida Neves, LEVON No [facility] 01-06-2025 Because of a physica l, mental, or emotional condition, do you have serious difficulty concentrating, remembering, or making decisions No 01/06/2025 10:25 PM EDT Benita Bradley RN No [facility] 01-05-2025 Because of a physica l, mental, or emotional condition, do you have serious difficulty concentrating, remembering, or making decisions No 01/05/2025 2:21 AM EDT Ayanna Alatorre RN No [facility] 12-22-2024 Because of a physica l, mental, or emotional condition, do you have serious difficulty concentrating, remembering, or making decisions No 12/22/2024 9:46 PM EDT Armida Pennington RN No [facility] Clinical Notes 2004 to 03-11-2025 Note Date & Type Note Facility 03-11-2025 Note HNO ID: [id number] Author: JOCELYNE BLACK RN Service: ? Author Type: Registered Nurse Type: Progress Notes Filed: 03/11/2025 12:22 Note Text: The patient is here for an injection of Rhogam. Dose: 300 mcg Amount wasted: none. Route: Intramuscular Site: left upper quadrant gluteus Maintenance Department Manager: CSL Behring Lot #: [id number] Expiration Date: 09/04/2026 Jocelyne Black RN [facility] 03-11-2025 Note HNO ID: [id number] Author: PRITI SHARMA MA Service: ? Author Type: Chemical Recovery Operator Type: Progress Notes Filed: 03/11/2025 12:22 Note Text: Patient identified by name and date of . Pal Nicholas presents today for a vaccination of Tdap. Patient denies an allergy to latex: yes Patient denies a severe (life-threatening) allergy to a previous dose of Tdap, DTP, DTaP, DT or Td vaccine. Yes Patient denies history of epilepsy or neurological problems: Yes Patient is afebrile and denies being moderately or severely ill: Yes Patient denies history of Guillain-Jackson Syndrome (a severe paralytic illness): Yes Tdap Adacel injection was given without incident. See immunizations for details of immunizations administered today. VIS sheet provided: Yes Provider Ramakrishna Corley DO was present in office at time of injection. Priti Sharma MA [facility] 03-08-2025 Note HNO ID: [id number] Author: REGGIE MA MD Service: ? Author Type: Physician Type: Progress Notes Filed: 03/08/2025 09:45 Note Text: PRIMARY CARE PHYSICIAN: To use this Smartlink, specify the provider ID whose address you want to display, e.g., .PROVADDR[1 (where 1 is the provider ID). REFERRING PHYSICIAN: [address] [facility] [address] CHIEF COMPLAINT: Abnormal EKG HISTORY OF PRESENT [...] of illicit drugs. 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 She has 1 other sibling. She is here in the office with her mom. Paternal grandfather suddenly at age 49. 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 She is not sure if she had [...] S1/S2; no murmurs, gallops, or rubs Abdomen: [place] distended. Nontender. EXTREMETIES: No peripheral edema. Grade [...] (U/L) Date Value 01/18/2025 11 URINALYSIS Specific [place], Ur Date Value Ref Range Status 02/13/2025 1.019 1.005 - 1.030 Final Glucose, Urine Date Value Ref Range Status 02/13/2025 Negative Trac (more content not included)... [facility] 02-23-2025 History and physical note Note Date/Time February 23, 2025 9:06pm [facility] Medical Records Department [address] [place] [address] OB Triage Physician Note 02/23/252054 MR#: [id number] Acct: [id number] Name: PAL NICHOLAS Rep #:[id number] : 2005 19 From: Lester Phillips MD PCP: Care Physician,No Primary Status :REG CLI Y Location: [place] [address] [facility] Date of Service: 02/23/25 HPI Narrative PAL NICHOLAS, is a 19 F who presents back pain, side pain and some contractions. Maternal Data Information AMARI Calculator 2 Estimated Delivery Date Method Current WG Current Estimate 05/31/25 Manual 26w 1d [facility] Medical History (Updated 02/23/25 @ 20:56 by [...] MD; No Primary Care Physician ~ Signed [facility] Work Phone: 1(264) 887-273809-30-2025 History and physical note [facility] Medical Records Department [address] [place] [address] OB Triage Physician Note 02/23/252054 MR#: [id number] Acct: [id number] Name: PAL NICHOLAS Rep #:[id number] : 2005 19 From: Lester Phillips MD PCP: Care Physician,No Primary Status :REG CLI Y Location: [place] [id number] HPI - General General Date of Service: 02/23/25 HPI Narrative PAL NICHOLAS, is a 19 F who presents back pain, side pain and some contractions. Maternal Data Information AMARI Calculator 2 Estimated Delivery Date Method Current WG Current Estimate 05/31/25 [facility] History (Updated 02/23/25 @ [...] Plan Reactive NST No evidence PTL 02/23/252105 MD> Date _ Lester Phillips MD [facility] Signature (if applicable): Date CC: Dr. Lester Phillips MD; No Primary Care Physician ~ Signed [facility]09-25-2025 NoteHNO ID: [id number] Author: KARI JOHNSTON MD Service: ? Author Type: Physician Type: Progress Notes Filed: 02/18/2025 13:16 Note Text: Female Pelvic Medicine AND Reconstructive Surgery Consult Recording using Boundary software for draft documentation of the visit was discussed with the patient/authorized payable representative; all questions welcomed and answered. Patient/authorized payable representative agreed to proceed CHIEF COMPLAINT: Pal [...] retention, (+) uterine contractio (more content not included)...[facility]09-20-2025 NoteHNO ID: [id number] Author: KERVIN GARDINER DO Service: Obstetrics Author [...] Provider Location Dept Phone 03/08/2025 9:20 AM REGGIE MA [facility] [phone] 03/11/2025 9:45 AM LAB [facility] [place] [phone] 03/11/2025 10:00 AM I TECH 1 [facility] [place] [phone] 03/11/2025 10:00 AM [facility] [place] [phone] 03/11/2025 11:10 AM RAMAKRISHNA CORLEY [place] [phone] Precautions: Reviewed return precautions including vaginal bleeding soaking through a pad an hour for 2 consecutive hours, increasing or severe abdominal pain, intractable nausea/vomiting. New or adjusted home medications: none Other recommendations/instructions: Follow-up with Urogynecology outpatient. Kervin Gardiner [facility]09-20-2025 NoteHNO ID: [id number] Author: KERVIN GARDINER DO Service: Obstetrics Author Type: Resident Type: Progress Notes Filed: 02/13/2025 14:39 Note Text: 1325: Completed TVUS. Concern for possible funneling with contractions. Discussed with MFM distillation operator given possible funneling in the setting of Myles' Danlos syndrome. Advised to encourage hydration and that no other intervention indicated at this time. Kervin Gardiner DO PGY-1 February 13, 2025 1:49 [facility]09-20-2025 NoteHNO ID: [id number] Author: MARIAJOSE MONTANEZ MD Service: Obstetrics Author [...] found under the Get Images tab in [employer]form. SIGNATURE: Kervin Gardiner DO PATIENT NAME: Pal Nicholas DATE: February 13, 2025 TIME: 1:41 [facility]09-20-2025 NoteHNO ID: [id number] Author: RONALD COOPER RN Service: Nursing Author Type: Registered Nurse Type: Progress Notes Filed: 02/13/2025 10:59 Note Text: Bladder scanner not recognizing bladder probe. After troubleshooting, not able to use. Dr. Montanez aware.[facility]09-20-2025 NoteHNO ID: [id number] Author: MARIAJOSE MONTANEZ MD Service: Obstetrics Author [...] discharge. 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 The patient or authorized payable representative has agreed to proceed with the [...] CERVICAL EXAM: Dilation: Closed (02/13/25 1142 : FabienneWayloni, DO) Station: -2 (02/13/25 1142 : Fabienne, Kervin, DO) Effacement (%): 20 (02/13/25 1142 : FabienneKervin subramanian, DO) MONITORING/ASSESSMENT: NST with discrete interpretation : [...] Progress note* Quick Notes - Lynnette Tapia APRN.HUMPHREY - 02/08/2025 10:40 AM EDT S: Pal [...] No apparent distress Abd: Gravid, non tender HEAT TREATING FURNACE TENDER- small amount of yellow / white discharge [...] and planning Fresh Test Lynnette Tapia APRN.CNM [facility]09-15-2025 Miscellaneous Notes* Quick Notes - Lynnette [...] No apparent distress Abd: Gravid, non tender HEAT TREATING FURNACE TENDER- small amount of yellow / white discharge [...] Test Lynnette Tapia APRN.CNM [facility] History and physical note Author Lynnette Tapia [facility] Note Date/Time February 05, 2025 5:47pm [facility] Medical Records Department [address] [place] [address] OB Triage Physician Note 02/05/25 1742 MR#: [id number] Acct: [id number] Name: PAL NICHOLAS Rep #:[id number] : 2005 19 From: Lynnette Tapia CNM PCP: Care Physician,No Primary Status :REG CLI Y Location: [place] [address] HPI - General General Chief Complaint: ctx's HPI Narrative PAL NICHOLAS, is a 19 F at 23 weeks gestation who presents back to triage for cramping. Seen and evaluated last night in triage and started on Macrobid 100 mg PO BID for UTI. Maternal Data Information AMARI Calculator Estimated Delivery Date Method Current WG Current Estimate 05/31/25 Manual 23w 4d PFSH [facility] Medical History (Updated 02/05/25 @ 00:[address] Ramakrishna Corlye, DO) POTS (postural orthostatic tachycardia syndrome) Myles-Danlos [...] Suprapubic pain: (3) History of UTI: (4) [place] Zaragoza' contraction: COMMENT: cervix closed (5) 23 [...] Tapia; No Primary Care Physician ~ Signed [facility] Work Phone: 1(116) 626-734009-12-2025 History and physical note [facility] Medical Records Department [address] [place] [address] OB Triage Physician Note 02/05/251741 MR#: [id number] Acct: [id number] Name: PAL NICHOLAS Rep #:[id number] : 2005 19 From: Lynnette Tapia CNM PCP: Care Physician,No Primary Status :REG CLI Y Location: [place] [address] HPI - General General Chief Complaint: ctx's [...] Suprapubic pain: (3) History of UTI: (4) [place] Zaragoza' contraction: COMMENT: cervix closed (5) 23 weeks gestation of : PLAN: Plan Positive movements Increase fluids CE - closed/ unchanged Continue taking Macrobid 100 mg Po BID- did not take dose today D/C home with follow up in office 02/05/25 1747 ts CNM> Date _ Lynnette Tapia CNM Cosigner Signature (if applicable): Date CC: HUMPHREY Tapia; No Primary Care Physician ~ Signed [facility]09-12-2025 Telephone encounter Note* Telephone Encounter - [...] for evaluation. L&D notified. Jocelyne Black RN [facility]09-12-2025 Miscellaneous Notes* Telephone Encounter - Jocelyne [...] notified. Jocelyne Black RN documented in this encounterCleveland [facility]25 History and physical note Author Ramakrishna Corley [facility] Note Date/Time February 05, 2025 12:03am [facility] Medical Records Department [address] [place] [address] OB Triage Physician Note 02/04/25 7915 MR#: [id number] Acct: [id number] Name: PAL NICHOLAS Rep #:[id number] : 2005 19 From: Ramakrishna Corley DO PCP: Care Physician,No Primary Status :REG CLI Y Location: [place] [id number] [facility] General Date of Service: 02/04/25 Chief Complaint: ctx's HPI Narrative PAL NICHOLAS, is a 19 F who presents ctx's. She states she has had contractions and abdominal pain for 1-2 weeks. Went to [facility] 2 weeks agofor this and had a [...] No constipation or diarrhea. PFSH [facility] Medical History (Updated 02/05/25 @ 00:00 by [...] (1) 23 weeks gestation of : (2) [place] Zaragoza' contraction: COMMENT: cervix closed PLAN: Cervix [...] ; No Primary Care Physician ~ Signed [facility] Work Phone: 1(437) 565-539809-12-2025 History and physical note [facility] Medical Records Department [address] [place] [address] OB Triage Physician Note 02/04/25 1972 MR#: [id number] Acct: [id number] Name: PAL NICHOLAS Rep #: : 2005 19 From: Ramakrishna Corley DO PCP: Care Physician,No Primary Status :REG CLI Y Location: [address] [facility] - General General Date of Service: 02/04/25 Chief Complaint: ctx's HPI Narrative PAL NICHOLAS, is a 19 F who presents ctx's. She states she has had contractions and abdominalpain for 1-2 weeks. Went to [facility] 2 weeks agofor this and had a [...] No constipation or diarrhea. PFSH [facility] Medical History (Updated 02/05/25 @ 00:00 by [...] (1) 23 weeks gestation of : (2) [place] Zaragoza' contraction: COMMENT: cervix closed PLAN: Cervix [...] ; No Primary Care Physician ~ Signed [facility]09-09-2025 History and physical note [facility] Medical Records Department [address] [place] [address] OB Triage Physician Note 02/02/25 2336 MR#: [id number] Acct: [id number] Name: SARAHY KAURDYLONDALE RAMOS Rep #:[id number] : 2005 19 From: Magda Aragon MD PCP: Care Physician,No Primary Status :REG CLI Y Location: [place] [address]-1 HPI - General General Date of Admission: [...] (1) 23 weeks gestation of : (2) [place] Zaragoza' contraction: COMMENT: cervix closed 02/02/25 4578 in MD> Date _ Magda Aragon MD Cosigner Signature (if applicable): Date CC: Dr. Magda Aragon MD; No Primary Care Physician ~ Signed [facility]09-09-2025 Evaluation note* Diagnosis Onset Date Resolution Status Admit Date 23 weeks gestation of acute February 02 025 8:50pm Angel Zaragoza' contraction acute February 02, 2025 8:50pm [facility] Work Phone: 1(860) [phone] Evaluation note* Diagnosis Onset Date Resolution Status Admit Date 23 weeks gestation of acute February 02 025 8:50pm [place] Zaragoza' contraction acute February 02, 2025 8:50pm 23 weeks gestation of acute February 04, 2025 10:13pm [place] Zaragoza' contraction acute February 04, 2025 10:13pm Dysuria acute January 10:13pm History of UTI acute February 04, 2025 10:13pm Suprapubic pain acute February 04, 2025 10:13pm [facility] Work Phone: 1(161) 580-406309-09-2025 Evaluation note* Diagnosis Onset Date Resolution Status Admit Date 23 weeks gestation of acute February 02 8:50pm [place] Zaragoza' contraction acute February 02, 2025 8:50pm 23 weeks gestation of acute February 04, 2025 10:13pm [place] Zaragoza' contraction acute February 04, 2025 10:13pm Dysuria acute January 10:13pm History of UTI acute February 04, 2025 10:13pm Suprapubic pain acute February 04, 2025 10:13pm Dysuria acute January 9:49pm Suprapubic pain acute February 13, 2025 9:49pm [facility] Work Phone: 1(926) 676-856809-09-2025 Evaluation note* Diagnosis Onset Date Resolution Status Admit Date 23 weeks gestation of acute February 02 8:50pm [place] Zaragoza' contraction acute February 02, 2025 8:50pm 23 weeks gestation of acute February 04, 2025 10:13pm [place] Zaragoza' contraction acute February 04, 2025 10:13pm Dysuria acute January 10:13pm History of UTI acute February 04, 2025 10:13pm Suprapubic pain acute February 04, 2025 10:13pm Dysuria acute January 9:49pm Suprapubic pain acute February 13, 2025 9:49pm Threatened labor acute February 23, 2025 8:00pm [facility] Work Phone: 1(199) 743-556309-09-2025 Miscellaneous Notes* Quick Notes - Lester Phillips MD - 02/02/2025 2:25 PM EDT KJ - S: Dylonynne denies contractions or vaginal bleeding. Patient reports increased discharge with possible LOF. Also would like checked for a UTI,. O: 23w1d, see flow sheet SENSITIVE EXAM: The sensitive examination was discussed with the Patient or Patient's Authorized Ground Transportation Operator. As applicable, any other physician, advance practice provider, medical student, or other health professional student that will be observing or involved in the sensitive examination for educational or training purposes was discussed with the Patient or Authorized Ground Transportation Operator. The Patient or Authorized Ground Transportation Operator has agreed to proceed with the sensitive examination. (Sensitive examination includes inspection and/or palpation of the breasts, pelvis, prostate and anorectal regions). SSE: normal vagina, cervix closed negative pool/fern/nitrazine A/P: Assessment & Plan Vaginal discharge during , antepartum (HCC) Orders: UA DIP, URINE (POC) Patient reassured on normal vaginal discharge. Follow up as scheduled. Lester Phillips MD documented in this encounterCleveland [facility]-2025 Progress note* Quick Notes - Lester Phillips MD - 02/02/2025 2:25 PM EDT KJ - S: Robynne denies contractions or vaginal bleeding. Patient reports increased discharge with possible LOF. Also would like checked for a UTI,. O: 23w1d, see flow sheet SENSITIVE EXAM: The sensitive examination was discussed with the Patient or Patient's Authorized Ground Transportation Operator. As applicable, any other physician, advance practice provider, medical student, or other health professional student that will be observing or involved in the sensitive examination for educational or training purposes was discussed with the Patient or Authorized Ground Transportation Operator. The Patient or Authorized Ground Transportation Operator has agreed to proceed with the sensitive examination. (Sensitive examination includes inspection and/or palpation of the breasts, pelvis, prostate and anorectal regions). SSE: normal vagina, cervix closed negative pool/fern/nitrazine A/P: Assessment & Plan Vaginal discharge during , antepartum (HCC) Orders: UA DIP, URINE (POC) Patient reassured on normal vaginal discharge. Follow up as scheduled. Lester Phillips MD [facility]09-09-2025 Telephone encounter Note* Telephone Encounter - Magda Hagen RN - 02/02/2025 11:11 AM EDT Patient called in to the office. Appointment given today. Magda Hagen RN [facility]09-09-2025 Miscellaneous Notes* Telephone Encounter - Magda Hagen RN - 02/02/2025 11:11 AM EDT Patient called in to the office. Appointment given today. Magda Hagen RN documented in this encounterCleveland [facility]08-27-2025 Telephone encounter Note * Telephone Encounter - Jocelyne Black RN - 01/20/2025 11:33 AM EDT Order signed and faxed. Jocelyne Black RN [facility]08-27-2025 Miscellaneous Notes* Telephone Encounter - Jocelyne Black RN - 01/20/2025 11:33 AM EDT Order signed and faxed. Jocelyne Black RN * Telephone Encounter - Isaura Pereira RN - 01/18/2025 8:45 AM EDT Breast pump order received from [employer]. To CP to sign. Isaura Pereira RN documented in this encounterCleveland [facility]08-27-2025 NoteHNO ID: [id number] Author: KARINA SALDAÑA MD Service: ? Author [...] was discussed with the patient or authorized payable representative. The patient or authorized payable representative has agreed to proceed with the [...] Making Level: 4 - Moderate Karina Omer [facility]08-27-2025 History of Present illness Narrative* Karina [...] was discussed with the patient or authorized payable representative. The patient or authorized payable representative has agreed to proceed with the [...] Moderate Karina Omer MD documented in this encounterCleveland [facility]08-27-2025 Progress note* Quick Notes - Karina [...] was discussed with the patient or authorized payable representative. The patient or authorized payable representative has agreed to proceed with the [...] patient. - abdominal binder Karina Omer MD [facility]08-27-2025 Miscellaneous Notes* Quick Notes - Karina [...] was discussed with the patient or authorized payable representative. The patient or authorized payable representative has agreed to proceed with the [...] binder Karina Omer MD documented in this encounterCleveland [facility]08-27-2025 Instructions* Patient Instructions* Ana Cristina Fitch MA - 01/20/2025 9:54 AM EDT SEQUENTIAL SCREENINGS The [facility] offers sequential screenings for women who [...] testing. It will require an appointment withour testing and regulating technician. This is not an ultrasound performed [...] the above symptoms, contact our office at [phone] and ask to speak with anurse. After hours, you can call doctors registry at [phone] OR call [facility] at [phone] ask to have the doctor distillation operator paged. If you consider this an emergency, dial 9-1-4 or go to your nearest emergency department. NEED HELP? Are you dealing with a violent or abusive relationship? Are you a victim of rape or sexual assult? Call [facility] ([place]) 24 hour Crisis Hotline: 858.154.5967 or 103-989-4919. MANUAL Your Guide to a Healthy manual is now on-line. Visit [email or web address]/[email or web address] to download your free copy documented in this encounterCleveland [facility]08-26-2025 NoteHNO ID: [id number] Author: ARMIDA PENNINGTON RN Service: Nursing Author Type: Registered Nurse Type: Nursing Progress Note Filed: 01/19/2025 00:45 Note Text: Patient returned to [facility] at this time. No distress noted.[facility]08-26-2025 NoteHNO ID: [id number] Author: ARMIDA PENNINGTON RN Service: Nursing Author Type: Registered Nurse Type: Nursing Progress Note Filed: 01/19/2025 00:45 Note Text: Patient taken to CT at this time via wheelchair. RN accompanied patient. No distress noted.[facility]08-25-2025 NoteHNO ID: [id number] Author: CHAD LOYOLA DO Service: Obstetrics Author [...] medical physics group. Chad Loyola DO, MPH AN/SSN 2 4 OPERATOR PGY-[facility]AA[facility]08-25-2025 NoteHNO ID: [id number] Author: CHAD LOYOLA DO Service: Obstetrics Author [...] PAST MEDICAL HISTORY Diagnosis Date Asthma ([facility]) 2011 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[facility]) POTS (postural orthostatic tachycardia syndrome) Recurrent [...] was discussed with the patient or authorized payable representative. The patient or authorized payable representative has agreed to proceed with the [...] Contributions to note made by medical student: Chantel Quintana, Padilla. I have personally seen and examined the [...] 18, 2025 TIME: 9:34 PM PAGER/CONTACT #: [id number] [facility]08-25-2025 Telephone encounter Note* Telephone Encounter - Isaura Pereira RN - 01/18/2025 8:45 AM EDT Breast pump order received from [employer]. To CP to sign. Isaura Pereira RN [facility]08-21-2025 Telephone encounter Note* Telephone Encounter - Ramakrishna Corley MD - 01/14/2025 1:34 PM EDT See result note [facility]08-21-2025 Miscellaneous Notes* Telephone Encounter - Ramakrishna Corley MD - 01/14/2025 1:34 PM EDT See result note documented in this encounterCleveland [facility]08-18-2025 Note* Addendum Note - Ramakrishna Corley MD - 01/11/2025 3:49 PM EDTAddended by: RAMAKRISHNA CORLEY on: 01/11/2025 03:49 PM Modules accepted: Orders [facility]08-18-2025 Miscellaneous Notes* Addendum Note - Ramakrishna [...] several weeks ago, treated after she wentto [place] triage. Now has dysuria. No vb, lof, [...] wks Ramakrishna Corley DO documented in this encounterCleveland [facility]08-18-2025 Note* Addendum Note - Priti Sharma MA - 01/11/2025 3:24 PM EDTAddended by: PRITI SHARMA on: 01/11/2025 03:24 PM Modules accepted: Orders [facility]08-18-2025 Progress note* Quick Notes - Ramakrishna Corley MD - 01/11/2025 3:12 PM EDT SW- Lower pelvic cramping and dysuria with a BV infection several weeks ago, treated after she wentto [place] triage. Now has dysuria. No vb, lof, [...] - Rto 4 wks Ramakrishna Corley DO [facility]08-18-2025 Instructions* Patient Instructions* Priti Sharma MA - 01/11/2025 2:59 PM EDT SEQUENTIAL SCREENINGS The [facility] offers sequential screenings for women who [...] testing. It will require an appointment withour testing and regulating technician. This is not an ultrasound performed [...] the above symptoms, contact our office at [phone] and ask to speak with anurse. After hours, you can call doctors registry at [phone] OR call [facility] at [phone] ask to have the doctor distillation operator paged. If you consider this an emergency, dial 9-9-8 or go to your nearest emergency department. NEED HELP? Are you dealing with a violent or abusive relationship? Are you a victim of rape or sexual assult? Call [facility] ([facility] 24 hour Crisis Hotline: 556.957.3300 or 020-737-7439. MANUAL Your Guide to a Healthy manual is now on-line. Visit [email or web address]/HealthyPregnancyGuide to download your free copy documented in this encounterCleveland [facility]08-15-2025 Telephone encounter Note * Telephone Encounter - Kari Abebe - 01/08/2025 2:39 PM EDT Scheduled 02/05/[address] Burns. Kari Abebe [facility]08-15-2025 Miscellaneous Notes* Telephone Encounter - Kari Abebe - 01/08/2025 2:39 PM EDT Scheduled 02/05/[address] Burns. Kari Abebe * Telephone Encounter - Ej Rodriguez MD - 01/07/2025 12:40 PM EDT Patient was seen by resident but not by any attending visual training aide while in labor and delivery she is and carries diagnosis of Myles-Danlos syndrome and POTS. She needs a new patient general cardiology appointment in the next 1 to 4 weeks. Please try to arrange this. If there are no spots or anyone let me know thanks Ej Rodriguez MD documented in this encounterCleveland [facility]08-14-2025 Telephone encounter Note * Telephone Encounter - Ej Rodriguez MD - 01/07/2025 12:40 PM EDT Patient was seen by resident but not by any attending visual training aide while in labor and delivery she is and carries diagnosis of Myles-Danlos syndrome and POTS. She needs a new patient general cardiology appointment in the next 1 to 4 weeks. Please try to arrange this. If there are no spots or anyone let me know thanks Ej Rodriguez MD [facility] Work Phone: 1(340) 995-148608-14-2025 Telephone encounter Note* Telephone Encounter - Jocelyne Black RN - 01/07/2025 10:35 AM EDT Patient was seen at [facility] last night. She has OB and MFM appointment on Saturday. Jocelyne Black RN [facility]08-14-2025 Miscellaneous Notes* Telephone Encounter - Jocelyne Black RN - 01/07/2025 10:35 AM EDT Patient was seen at [facility] last night. She has OB and MFM [...] 01/05 telephone notes. Patient was seen at [facility] OB ED triage on 01/04. The diarrhea has resolved. Advised that she go back to [facility] as the office is closing. Patient asked for an appointment tomorrow instead because of transportation. No available appointments. Advised that she should be evaluated today in case she is having labor. Voiced understanding and believes she could have a friend take her. CAROLINA Hagen RN documented in this encounterCleveland [id number] Telephone encounter Note * Telephone Encounter - Karina Addison MD - 01/07/2025 10:00 AM EDT If not improved work in any cancellations, go to L&D for eval or schedule tomorrow if openings.Karina Addison MD [facility] Work Phone: 1(590) 264-302808-13-2025 NoteHNO ID: [id number] Author: ALEXA DICKSON MD Service: Obstetrics Author [...] PAST MEDICAL HISTORY Diagnosis Date Asthma ([facility]) 2011 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[facility]) POTS (postural orthostatic tachycardia syndrome) Recurrent [...] for dysuria or urinary frequency, urinary urgency 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 The patient or authorized payable representative has agreed to proceed with the [...] 01/05 telephone notes. Patient was seen at [facility] OB ED triage on 01/04. The diarrhea has resolved. Advised that she go back to [facility] as the office is closing. Patient asked for an appointment tomorrow instead because of transportation. No available appointments. Advised that she should be evaluated today in case she is having labor. Voiced understanding and believes she could have a friend take her. CAROLINA Hagen RN [facility]08-12-2025 Telephone encounter Note* Telephone Encounter - Jocelyne Black RN - 01/05/2025 12:19 PM EDT Patient notified and voiced understanding. Jocelyne Black RN [facility]08-12-2025 Miscellaneous Notes* Telephone Encounter - Jocelyne Black RN - 01/05/2025 12:19 PM EDT Patient notified and voiced understanding. Jocelyne Black RN * Telephone Encounter - Lester Phillips MD - 01/05/2025 12:07 PM EDT Patient was seen by Mitesh Kulkarni while at [facility]. I recommend supportive care with hydration, potassiumrich foods such as bananas and rest. Agree that after a GI illness it can take several days to feelbetter. Please keep current appointment on Saturday. Lester Phillips MD * Telephone Encounter - Magda Hagen RN - 01/05/2025 11:34 AM EDT 19w1d See 01/04 phone note. Patient went to [facility] OB ED last night. [place] notes available to review. Patient was prescribed [...] feel completely confident in the diagnosis from [place]. Please advise. Magda Hagen RN documented in this encounterCleveland [facility]08-12-2025 Telephone encounter Note * Telephone Encounter - Lester Phillips MD - 01/05/2025 12:07 PM EDT Patient was seen by Mitesh Kulkarni while at [facility]. I recommend supportive care with hydration, potassiumrich foods such as bananas and rest. Agree that after a GI illness it can take several days to feelbetter. Please keep current appointment on Saturday. Lester Phillips MD [facility] Work Phone: 1(555) 448-738908-12-2025 Telephone encounter Note* Telephone Encounter - Magda Hagen RN - 01/05/2025 11:34 AM EDT 19w1d See 01/04 phone note. Patient went to [facility] OB ED last night. [place] notes available to review. Patient was prescribed [...] feel completely confident in the diagnosis from [place]. Please advise. Magda Hagen, RN [facility]08-12-2025 Telephone encounter Note* Telephone Encounter - Jayla Keller MD - 01/05/2025 11:17 AM EDT Images from the original note were not included. Patient called requesting Rx for potassium and imodium after being seen in the OB ED 1 day ago. Jayla Keller MD [facility]08-12-2025 Miscellaneous Notes* Telephone Encounter - Jayla Keller MD - 01/05/2025 11:17 AM EDT Images from the original note were not included. Patient called requesting Rx for potassium and imodium after being seen in the OB ED 1 day ago. Jayla Keller MD documented in this encounterCleveland [facility]08-11-2025 NoteHNO ID: [id number] Author: KARINA ADDISON MD Service: Obstetrics Author [...] PAST MEDICAL HISTORY Diagnosis Date Asthma ([facility]) 2012 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HCC) POTS (postural orthostatic [...] : Negative for dysuria or urinary frequency HEAT TREATING FURNACE TENDER: Negative for abnormal vaginal bleeding, abnormal vaginal discharge Objective LAST VITALS: Pulse: 102 BP: 120/63 Temp: 36.3 ?C (97.3 ?F) SpO2: 99 % SENSITIVE EXAMINATION CONSENT: Participation of a fellow, resident, medical student, or advanced practice provider student in performing the sensitive examination was discussed with the patient or authorized payable representative. The patient or authorized payable representative has agreed to proceed with the [...] Doppler/Fetoscope Rate: 140 bpm (01/04/252034 : Mariann Milton RN) LABS ABO/RH: No results found for: ABORHD [...] states this is stayingthe same since at [facility] 12/22/24. Last few weeks, Pt states extremely watery discharge. Went to [facility] at that time d/t havingsharp cervical pain & was treated for BV. Feels hydrated/Has been drinking liquid IV. Does havesome burning on urination & was seen on 12/30/24 in office-UA completed and TRACE protein and TRACE leukocytes. Advised Pt that since pain has worsened as the day as gone on that it would be best to go to [facility] OB triage to be evaluated as no appts available in office at this time. Pt did state she'd feel more comfortable going there and that is essentially why she called as she wanted to discuss with a nurse. Pt states her ride will not be able to pick her up for another 30 minutes, but Pt is agreeable to go to [place]. Dr. Aragon notified. Maite Peterson RN [facility]08-11-2025 Miscellaneous Notes* Telephone Encounter - Maite [...] states this is stayingthe same since at [facility] 12/22/24. Last few weeks, Pt states extremely watery discharge. Went to [facility] at that time d/t havingsharp cervical pain & was treated for BV. Feels hydrated/Has been drinking liquid IV. Does havesome burning on urination & was seen on 12/30/24 in office-UA completed and TRACE protein and TRACE leukocytes. Advised Pt that since pain has worsened as the day as gone on that it would be best to go to [facility] OB triage to be evaluated as no appts available in office at this time. Pt did state she'd feel more comfortable going there and that is essentially why she called as she wanted to discuss with a nurse. Pt states her ride will not be able to pick her up for another 30 minutes, but Pt is agreeable to go to [place]. Dr. Aragon notified. Maite Peterson, RN documented in this encounterC[facility] Miscellaneous Notes* Quick Notes - Lynnette Tapia APRN.CNM - 12/28/2024 11:15 AM EDT Patient is at 18 weeks gestation here for NOB. She is new to office and has received adequateprenatal care in [place]. Awaiting records. Lynnette Tapia APRN.CNM documented in this encounterC[facility] Progress note* Quick Notes - Lynnette Tapia APRN.CNM - 12/28/2024 11:15 AM EDT Patient is at 18 weeks gestation here for NOB. She is new to office and has received adequateprenatal care in [place]. Awaiting records. Lynnette Tapia APRN.CNM [facility]08-04-2025 NoteHNO ID: [id number] Author: LYNNETTE TAPIA APRN.CNM Service: ? Author Type: Spray I Painter Type: Progress Notes Filed: 12/28/2024 13:23 Note Text: Veneer Stock Grader offered: Patient declines. INITIAL OB ASSESSMENT HPI: [...] all that apply)? Centering (group care classes); Wood Heel Finisher; Spray I Painter care Social History: Do you have any [...] Partner: Name: Zaki Steven Age: 18 Occupation: [employer] Gender: Male PAST MEDICAL HISTORY Diagnosis Date [...] Itching GENITOURINARY: Negative f (more content not included)...[facility]08-04-2025 History of Present illness Narrative* Lynnette Tapia APRN.CN - 12/28/2024 8:36 AM EDT Veneer Stock Grader offered: Patient declines. INITIAL OB ASSESSMENT HPI: [...] all that apply)? Centering (group care classes); Wood Heel Finisher; Spray I Painter care Social History: Do you have any [...] Partner: Name: Zaki Steven Age: 18 Occupation: [employer] Gender: Male PAST MEDICAL HISTORY Diagnosis Date [...] discussed with the Patient or Patient's Authorized Ground Transportation Operator. As applicable, any other physician, advance practice provider, medical student, or other health professional student that will be observing or involved in the sensitive examination for educational or training purposes was discussed with the Patient or Authorized Ground Transportation Operator. The Patient or Authorized Ground Transportation Operator has agreed to proceed with the sensitive [...] Your guide to a health and the Chair And Couch Maker. Discussed Centering group- MAY BE INTERESTED 2) [...] prirving. Lynnette Tapia APRN.CNM documented in this encounterC[facility] Instructions* Patient Instructions* Ralph Molina LPN - 12/28/2024 8:36 AM EDT Please select the following link to access the [facility] Your Guide to a Healthy . [email or web address] documented in this encounterC[facility]08-01-2025 Telephone encounter Note * Telephone Encounter - Isaura Pereira RN - 12/25/2024 12:13 PM EDT Records received from [facility] in [place]. In chart prep binder for NOB appt on 12/28 with CP. Isaura Pereira RN [facility]08-01-2025 Miscellaneous Notes* Telephone Encounter - Isaura Pereira RN - 12/25/2024 12:13 PM EDT Records received from [facility] in [place]. In chart prep binder for NOB appt on 12/28 with CP. Isaura Pereira RN documented in this encounterCleveland Clinic [facility]07-29-2025 NoteHNO ID: [id number] Author: MARK FOREMAN MD Service: Obstetrics Author [...] and recurrent UTIs. She recently moved from [place] and is establishing care with [facility]. Pt states her abdominal pain is intermittent and began around 6 pm yesterday. She was evaluated at [place] ED yesterday where she was found to [...] nausea, vomiting, or diarrhea : + dysuria HEAT TREATING FURNACE TENDER: Negative for abnormal vaginal bleeding, + for [...] was discussed with the patient or authorized payable representative. The patient or authorized payable representative has agreed to proceed with the [...] PM EDT Patient notified. Magda Hagen RN [facility]07-29-2025 Miscellaneous Notes* Telephone Encounter - Magda [...] urgent issue or go to [facility] at [facility] or see if there is a sooner [...] ER report: Discussed the case with on-call AN/SSN 2 [address] [facility] [address] Aragon who states that she [...] review. Magda Hagen RN documented in this encounterCleveland Clinic [facility]07-29-2025 Telephone encounter Note * Telephone Encounter - Karina Addison MD - 12/22/2024 3:38 PM EDT Agree w/ keep scheduled appointment. Make sure we have US results/labs for NOB. If infection ruled out and no bleeding would recommend stretching, tylenol and warm baths prn. Can return to ED if urgent issue or go to [facility] at [facility] or see if there is a sooner NOB elsewhere to get her established then f/u here. Karina Addison MD [facility] Work Phone: 1(972) 336-943107-29-2025 Telephone encounter Note* Telephone Encounter - Magda [...] ER report: Discussed the case with on-call AN/SSN 2 [address] [facility] [address] Aragon who states that she [...] to RR to review. Magda Hagen RN [facility]07-28-2025 Discharge summary [facility] Medical Records Department [address] [place] [address] Emergency Department Summary 12/21/24 MR#: [id number] Acct: [id number] Name: PAL NICHOLAS Rep #:[id number] : 2005 19 From: Aftab Mendoza DO [...] management. States that she is following with [facility]. Patient denies any vaginal spotting or bleeding. [facility] Medical History (Updated 12/21/24 @ 23:39 by [...] follow commands knew that she was at [facility] the year is 2024 Skin: Warm, [...] of infection. Discussed the case with on-call AN/SSN 2 [address] [facility] [address] Aragon who states that she [...] 72.9 H Lymph % (Auto) 18.4 L Cocke % (Auto) 6.2 Eos % (Auto) 1.4 [...] Clarity Clear Urine pH 6.5 Ur Specific [place] 1.010 Urine Protein Negative Urine Glucose (UA) [...] - Activity Restrictions/Additional Instructions: Follow-up with your AN/SSN 2 4 OPERATOR at your scheduled appointment on Saturday. Your blood work did not show any acute findings your urine did not show any evidence infection. Return with worsening symptoms or any concerns. Ensure you are hydrating plenty with water. Print Language: Djiboutian Disposition Disposition: Home, Self Care What to do if you have Problems For any increased pain, shortness of breath, bleeding, nausea or vomiting, chestpain, or any unexpected problems, contact your Primary Care Provider. Call [facility] ([phone]) or report tothe closest Emergency Room. Call 911 if necessary. 12/21/24 0025 Cosigner Signature (if applicable): CC: No Primary Care Physician ~ Signed [facility]07-28-[facility]25 Discharge summary Author Aftab Mendoza [facility] Note Date/Time December 21, 2024 11:3 9pm [facility] Medical Records Department [address] [place] [address] Emergency Department Summary 12/21/24 MR#: [id number] Acct: [id number] Name: PAL NICHOLAS Rep #:[id number] : 2005 From: Aftab Mendoza DO PCP: Care Physician,No [...] management. States that she is following with [facility]. Patient denies any vaginal spotting or bleeding. [facility] Medical History (Updated 12/21/24 @ 23:39 by [...] follow commands knew that she was at [facility] the year is 2024 Skin: Warm, [...] of infection. Discussed the case with on-call AN/SSN 2 [address] [facility] [address] Aragon who states that she [...] 72.9 H Lymph % (Auto) 18.4 L Cocke % (Auto) 6.2 Eos % (Auto) 1.4 [...] Clarity Clear Urine pH 6.5 Ur Specific [place] 1.010 Urine Protein Negative Urine Glucose (UA) [...] - Activity Restrictions/Additional Instructions: Follow-up with your AN/SSN 2 4 OPERATOR at your scheduled appointment on Saturday. Your blood work did not show any acute findings your urine did not show any evidence infection. Return with worsening symptoms or any concerns. Ensure you are hydrating plenty with water. Print Language: Djiboutian Disposition Disposition: Home, Self Care What to do if you have Problems For any increased pain, shortness of breath, bleeding, nausea or vomiting, chestpain, or any unexpected problems, contact your Primary Care Provider. Call [facility] ([phone]) or report to the closest Emergency Room. Call 911 if necessary. 12/21/24 8951 <Electronically signed by Aftab Mendoza DO> Cosigner Signature (if applicable): CC: No Primary Care Physician ~ Signed [facility] Work Phone: 1(361) 229-958807-28-2025 Hospital Discharge instructionsAdditional Instructions Follow-up with your AN/SSN 2 4 OPERATOR at your scheduled appointment on Saturday. Your blood work did not show any acute findings your urine did not show any evidence infection. Return with worsening symptoms or any concerns. Ensure you are hydrating plenty with water.[facility] Work Phone: 1(354) 254-308507-08-2025 Telephone encounter Note* Telephone Encounter - Maria Alejandra Kay RN - 12/01/2024 10:27 AM EDT Name and verified. Patient wishes to transfer to [facility] for OB care. AMARI? 05/31/25 Gestational age? 14w1d Patient aware to sign up for My Chart so she can receive the post acute care nurse messages. What facility is she transferring from? [facility] in [place] Moving to [place] in 2 weeks and will be approx [...] would the patient like to establish in? [place] Will route this encounter to the desired office. Maria Alejandra Kay RN [facility]07-08-2025 Miscellaneous Notes* Telephone Encounter - Maria Alejandra Kay, RN - 12/01/2024 10:27 AM EDT Name and verified. Patient wishes to transfer to [facility] for OB care. AMARI? 05/31/25 Gestational age? 14w1d Patient aware to sign up for My Chart so she can receive the post acute care nurse messages. What facility is she transferring from? [facility] in [place] Moving to [place] in 2 weeks and will be approx [...] would the patient like to establish in? [place] Will route this encounter to the desired [...] : 2005 Provider for this encounter : [facility] Reason for call: New OB patient (16 weeks as of 11/30/24), [place] from [place] Was an appointment scheduled: No Reason for requesting visit (RFV/signs and symptoms/diagnosis) : Establish with OB at [facility] for continuation of care. Person calling: self Return call to: self Call patient at: [phone] (cell), it is OK to leave message Payor: ANDREWSEM / Plan: BLUE CARD PPO OOS / Product Type: PPO / Rica Garcia documented in this encounterC[facility]07-[facility] Telephone encounter Note * Telephone Encounter - Maria Alejandra Kay RN - 12/01/2024 10:09 AM EDT Call placed to patient to triage for new OB appt. Left message for patient to call back Maria Alejandra Kay RN [facility]07-08-2025 Telephone encounter Note* Telephone Encounter - Maria Alejandra Kay RN - 12/01/2024 8:38 AM EDT Call placed to patient to triage for new OB appt. No answer, will try later Maria Alejandra Kay RN [facility]07-08-2025 Telephone encounter Note* Telephone Encounter - Maria Alejandra Kay RN - 12/01/2024 8:37 AM EDT ----- Message from Rica Pendleton sent at 11/30/2024 4:05 PM EDT ----- Regarding: New/[facility]ELV[facility] OB 16 weeks Patient has been identified by name and Date of : Yes Patient: Pal Nicholas Date of : 2005 Provider for this encounter : [facility] Reason for call: New OB patient (16 weeks as of 11/30/24), [place] from [place] Was an appointment scheduled: No Reason for requesting visit (RFV/signs and symptoms/diagnosis) : Establish with OB at [facility] for continuation of care. Person calling: self Return call to: self Call patient at: [phone] (cell), it is OK to leave message Payor: ANTHEM / Plan: BLUE CARD PPO OOS / Product Type: PPO / Rica Garcia [facility]07-01-2005 History and physical note [facility] Medical Records Department [address] [place] [address] OB Triage Physician Note 02/13/25 [id number] MR#: [id number] Acct: [id number] Name: PAL NICHOLAS Rep #:[id number] : 2005 19 From: Magda Aragon MD PCP: Care Physician,No Primary Status :DEP CLI Y Location: [facility] HPI - General General Date of Service: 02/13/25 Chief Complaint: pain HPI Narrative PAL NICHOLAS, is a 19 F who presents with bladder pain and unable to void.Was in Triage at [facility] early and had straight cath for [...] Final AMARI: 05/31/25 Gestational age: 24+6 PFSH PFS Medical History (Updated 02/05/25 @ 00:00 by [...] intake. Keep referral to urogyn 02/14/252047 in > Date _ Magda Aragon MD Cosigner Signature (if applicable): Date CC: Dr. Magda Aragon MD; No Primary Care Physician ~ Signed [facility] noteNo assessment information available [facility] Work Phone: Evaluation note* Diagnosis Visit for screening ([facility])- Primary Unspecified screening 18 weeks gestation of ([facility]) state, incidental Encounter for supervision of high risk in second trimester, antepartum ([facility]) 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HCC) POTS (postural orthostatic tachycardia syndrome) Tachycardia, unspecified 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 Screening for STD (sexually transmitted disease) Screening examination for venereal disease Abdominal pain during in second trimester ([facility]) Bacterial vaginosis Vaginitis and vulvovaginitis, unspecified [facility]* Diagnosis Abdominal pain affecting ([facility]) Diarrhea Hypokalemia Hypopotassemia Headache Chest pain during (HCC) Vaginal discharge during (HCC) Dizziness Dizziness and giddiness Chronic hypertension affecting ([facility]) 19 weeks gestation of ([facility]) state, incidental Pelvic pressure in ([facility]) Other specified complication, antepartum Bacterial vaginosis- Primary Vaginitis and vulvovaginitis, unspecified 20 weeks gestation of ([facility]) state, incidental Burning with urination Dysuria Palpitations Other fatigue Weakness Other malaise and fatigue Encounter for supervision of normal first in second trimester ([facility]) Supervision of normal first documented [facility] this encounter [facility] [place] [facility]* Diagnosis Abdominal pain affecting (HCC) Diarrhea Hypokalemia Hypopotassemia Headache Chest pain during (HCC) Vaginal discharge during (HCC) Dizziness Dizziness and giddiness Chronic hypertension affecting ([facility]) 19 weeks gestation of ([facility]) state, incidental Pelvic pressure in ([facility]) Other specified complication, antepartum POTS (postural orthostatic tachycardia syndrome)- Primary Tachycardia, unspecified Visit for screening ([facility]) Unspecified screening 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HCC) Chronic hypertension affecting ([facility]) [facility] this encounter [facility] [place] [facility]* Diagnosis Abdominal pain affecting (HCC) Diarrhea Hypokalemia Hypopotassemia Headache Chest pain during (HCC) Vaginal discharge during (HCC) Dizziness Dizziness and giddiness Chronic hypertension affecting (HCC) Pelvic pressure in (HCC) Other specified complication, antepartum Dysuria- Primary documented in this encounter [facility] note* Diagnosis Diarrhea Hypokalemia Hypopotassemia Headache Chest pain during (HCC) Vaginal discharge during (HCC) Dizziness Dizziness and giddiness Pelvic pressure in (HCC) Other specified complication, antepartum Chronic hypertension affecting (HCC) Abdominal pain affecting (HCC) 21 weeks gestation of (HCC) state, incidental Encounter for supervision of normal first in second trimester ([facility])- Primary Supervision of normal first Vaginal discharge Leukorrhea, not specified as infective 21 weeks gestation of (HCC) state, incidental Abdominal pain affecting ([facility]) * Assessment & Plan Note - [...] - 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 binder documented in this encounter [facility] note* Diagnosis Diarrhea Hypokalemia Hypopotassemia Headache Chest pain during (HCC) Vaginal discharge during (HCC) Dizziness Dizziness and giddiness Pelvic pressure in (HCC) Other specified complication, antepartum Chronic hypertension affecting (HCC) Abdominal pain affecting (HCC) 21 weeks gestation of (HCC) state, incidental Encounter for supervision of normal first in second trimester ([facility])- Primary Supervision of normal first Vaginal discharge Leukorrhea, not specified as infective 21 weeks gestation of (HCC) state, incidental Abdominal pain affecting (HCC) Vaginal discharge during , antepartum ([facility])- Primary * Assessment & Plan Note - Lester Phillips MD - 02/02/2025 2:28 PM EDTAssociated Problem(s): Vaginal discharge during (HCC) Orders: UA DIP, URINE (POC) documented [facility] this encounter [facility]* Diagnosis Diarrhea Hypokalemia Hypopotassemia Headache Chest pain during ([facility]) Vaginal discharge during ([facility]) Dizziness Dizziness and giddiness Pelvic pressure in ([facility]) Other specified complication, antepartum Chronic hypertension affecting ([facility]) Abdominal pain affecting ([facility]) 21 weeks gestation of ([facility]) state, incidental Encounter for supervision of normal first in second trimester ([facility])- Primary Supervision of normal first Vaginal discharge Leukorrhea, not specified as infective 21 weeks gestation of ([facility]) state, incidental Abdominal pain affecting ([facility]) Vaginal discharge during , antepartum ([facility])- Primary Encounter for supervision of normal first in second trimester ([facility])- Primary Supervision of normal first 24 weeks gestation of ([facility]) state, incidental Screening for diabetes mellitus Vaginal discharge during in second trimester ([facility]) [facility] Author Magda Aragon [facility] Note Date/Time February 02, 2025 11:38pm [facility] Medical Records Department [address] [place] [address] OB Triage Physician Note 02/02/25 [id number] MR#: [id number] Acct: [id number] Name: PAL NICHOLAS Rep #:[id number] : 2005 19 From: Magda Aragon MD PCP: Care Physician,No Primary Status :REG CLI Y Location: [address] HPI - General General Date of Admission: 02/02/25 Date of Service: 02/02/25 Chief Complaint: cramping HPI Narrative PAL NICHOLAS, is a 19 F who presents cramping. No bleeding. Some movement.Was seen in office today with normal discharge. Maternal Data Information Final AMARI: 05/31/25 [facility]ational age: 22 [facility] Medical History (Updated 02/02/25 @ 23:[address] Magda Aragon MD) POTS (postural orthostatic tachycardia syndrome) Myles-Danlos syndrome Home Medications ?Medication ?Instructions ?Recorded ?Last Taken ?Type aspirin 81 mg capsule 81 mg PO DAILY 02/02/25 09/0 01/18 History vit no.95-ferrous 1 tab PO DAILY [...] (1) 23 weeks gestation of : (2) [place] Zaragoza' contraction: COMMENT: cervix closed 02/02/25 6989 <Electronically signed by Magda Esparza in > Date _ Magda Aragon MD Cosigner Signature (if applicable): Date CC: Dr. Magda Aragon MD; No Primary Care Physician ~ Signed [facility] Work Phone: History and physical note Author Ramakrishna Corley [facility] Note Date/Time February 05, 2025 12:03am [facility] Medical Records Department [address] [place] [address] OB Triage Physician Note 02/04/25 [id number] MR#: [id number] Acct: [id number] Name: PAL NICHOLAS Rep #: : 2005 19 From: Ramakrishna Corley DO PCP: Care Physician,No Primary Status :REG CLI Y Location: [address] General General Date of Service: 02/04/25 Chief Complaint: ctx's HPI Narrative PAL NICHOLAS, is a 19 F who presents ctx's. She states she has had contractions and abdominal pain for 1-2 weeks. Went to [facility] 2 weeks agofor this and had a [...] vb or lof. No constipation or diarrhea. [facility] Medical History (Updated 02/05/25 @ 00:00 by [...] DO; No Primary Care Physician ~ Signed [facility] Work Phone: History and physical note Author Magda Aragon [facility] Note Date/Time February 14, 2025 8:48pm [facility] Medical Records Department [address] [place] [address] OB Triage Physician Note 02/13/25 2321 MR#: [id number] Acct: [id number] Name: PAL NICHOLAS Rep #: [id number] : 2005 19 From: Magda Aragon MD PCP: Care Physician,No Primary Status :DEP CLI Y Location: [facility] HPI - General General Date of Service: 02/13/25 Chief Complaint: pain HPI Narrative PAL NICHOLAS, is a 19 F who presents with bladder pain and unable to void.Was in Triage at [facility] early and had straight cath for [...] MD; No Primary Care Physician ~ Signed [facility] Work Phone: Reason for referral (narrative)No reason for referral information availableWLima Memorial Hospital Work Phone: Chief Complaint and Reason for Visit Chief Complaint Admit Date female pain, December 21, 2024 8: 25pm Chief Complaint Admit Date female pain, December 21, 2024 8: 25pm R/O LABOR February 02, 2025 8:50pm Reason for Visit Admit Date 23 weeks gestation of Bárbara r 2024 8:50pm Angel Zaragoza' contraction January 8:50pm Chief Complaint Admit Date female pain, December 21, 2024 8: 25pm R/O LABOR February 02, 2025 8:50pm R/O LABOR February 04, 2025 10:13pm Reason for Visit Admit Date 23 weeks gestation of Bárbara r 2024 8:50pm [place] Zaragoza' contraction January 8:50pm 23 weeks gestation of Bárbara 2024 10:13pm [place] Zaragoza' contraction January 10:13pm Dysuria February 04, [...] weeks gestation of Bárbara r 2024 8:50pm [place] Zaragoza' contraction January 8:50pm 23 weeks gestation of Jolenee 2024 10:13pm Angel Zaragoza' contraction January 10:13pm Dysuria February 04, [...] contraction January 8:50pm 23 weeks gestation of Septembe r 2024 10:13pm [place] Zaragoza' contraction January 10:13pm Dysuria February 04, 2025 10:13pm History of UTI February 04, 2025 10:13pm Suprapubic pain February 04, 2025 10:13pm Dysuria February 13, 2025 9:49pm Suprapubic pain February 13, 2025 9:49pm Threatened labor February 23, 2025 8:00pm Advance Directives No Advanced Directives Records Found Advance Directive Response Recorded Date/ Time Do you have a Healthcare Power of Speaker Mounter? No December 21, 2024 9:54pm Summary Purpose [...] or prosecute any alcohol or drug abuse patient.[facility] HospitalIn the event this information is protected by the Federal Confidentiality of Alcohol and Drug Abuse Patient Records regulations: The Federal rules restrict any use of the information to criminally investigate or prosecute any alcohol or drug abuse patient.[facility] HospitalIn the event this information is protected by the Federal Confidentiality of Alcohol and Drug Abuse Patient Records regulations: The Federal rules restrict any use of the information to criminally investigate or prosecute any alcohol or drug abuse patient.[facility] HospitalIn the event this information is protected by the Federal Confidentiality of Alcohol and Drug Abuse Patient Records regulations: The Federal rules restrict any use of the information to criminally investigate or prosecute any alcohol or drug abuse patient.[facility] HospitalIn the event this information is protected by the Federal Confidentiality of Alcohol and Drug Abuse Patient Records regulations: The Federal rules restrict any use of the information to criminally investigate or prosecute any alcohol or drug abuse patient.[facility] HospitalIn the event this information is protected by the Federal Confidentiality of Alcohol and Drug Abuse Patient Records regulations: The Federal rules restrict any use of the information to criminally investigate or prosecute any alcohol or drug abuse patient.[facility] HospitalIn the event this information is protected by the Federal Confidentiality of Alcohol and Drug Abuse Patient Records regulations: The Federal rules restrict any use of the information to criminally investigate or prosecute any alcohol or drug abuse patient.[facility] HospitalIn the event this information is protected by the Federal Confidentiality of Alcohol and Drug Abuse Patient Records regulations: The Federal rules restrict any use of the information to criminally investigate or prosecute any alcohol or drug abuse patient.[facility] HospitalIn the event this information is protected by the Federal Confidentiality of Alcohol and Drug Abuse Patient Records regulations: The Federal rules restrict any use of the information to criminally investigate or prosecute any alcohol or drug abuse patient.[facility] HospitalIn the event this information is protected by the Federal Confidentiality of Alcohol and Drug Abuse Patient Records regulations: The Federal rules restrict any use of the information to criminally investigate or prosecute any alcohol or drug abuse patient.[facility] HospitalIn the event this information is protected by the Federal Confidentiality of Alcohol and Drug Abuse Patient Records regulations: The Federal rules restrict any use of the information to criminally investigate or prosecute any alcohol or drug abuse patient.[facility] HospitalIn the event this information is protected by the Federal Confidentiality of Alcohol and Drug Abuse Patient Records regulations: The Federal rules restrict any use of the information to criminally investigate or prosecute any alcohol or drug abuse patient.[facility] HospitalIn the event this information is protected by the Federal Confidentiality of Alcohol and Drug Abuse Patient Records regulations: The Federal rules restrict any use of the information to criminally investigate or prosecute any alcohol or drug abuse patient.[facility] the event this information is protected by the Federal Confidentiality of Alcohol and Drug Abuse Patient Records regulations: The Federal rules restrict any use of the information to criminally investigate or prosecute any alcohol or drug abuse patient.[facility] HospitalIn the event this information is protected by the Federal Confidentiality of Alcohol and Drug Abuse Patient Records regulations: The Federal rules restrict any use of the information to criminally investigate or prosecute any alcohol or drug abuse patient.[facility] HospitalIn the event this information is protected by the Federal Confidentiality of Alcohol and Drug Abuse Patient Records regulations: The Federal rules restrict any use of the information to criminally investigate or prosecute any alcohol or drug abuse patient.[facility] HospitalIn the event this information is protected by the Federal Confidentiality of Alcohol and Drug Abuse Patient Records regulations: The Federal rules restrict any use of the information to criminally investigate or prosecute any alcohol or drug abuse patient.[facility] HospitalIn the event this information is protected by the Federal Confidentiality of Alcohol and Drug Abuse Patient Records regulations: The Federal rules restrict any use of the information to criminally investigate or prosecute any alcohol or drug abuse patient.[facility] HospitalIn the event this information is protected by the Federal Confidentiality of Alcohol and Drug Abuse Patient Records regulations: The Federal rules restrict any use of the information to criminally investigate or prosecute any alcohol or drug abuse patient.[facility] Reason for Visit (unrecogniz ed section and content) Reason Comments Care Coordination Reason Comments OB Pelvic Pain Reason Comments Received Outside Medical Records Reason Comments Care Reason Comments OB Pain Reason Comments OB Vaginal Pressure Reason Onset Date Comments Care 01/11/2025 Reason Comments US Specialty Diagnoses / Procedures Referred By Juan Antonio t Referred To Contact [facility] Diagnoses Visit for screening (HCC) Procedures OBSTETRIC ULTRASOUND WHI US PREG UTERUS AFTER 1ST TRIMEST GESTATION Lynnette Tapia APRN.[facility] [address] [place] [address] Phone: tel: fax: [facility] [address] [place] [address] Referral ID Status Reason Start Date Expiration Date V isits Requested Visits Authorized [id number] Closed Auto-Generate d Referral 12/29/2024 05/26/2025 1 [...] 22, 2024 Dr. Aftab Mendoza DO Emergency Departme nt Physician Active Start: December 21, 2024 [...] ized section and content) DATE CREATED AUTHOR 03/09/2025 [facility] DATE CREATED AUTHOR AUTHOR'S ORGANIZ ATION 03/15/2025 [facility] DATE CREATED AUTHOR AUTHOR'S ORGANIZ ATION 03/16/2025 [facility] FOR RECORDS PERTAINING TO PATIENTS [...] BE BASED ON THE PRIMARY CLINICAL RECORDS. [employer] provides no warranty or guarantee of the accuracy or completeness of information in this document.
--- OUTSIDE RECORDS SUMMARY | 2025-03-17 17:40 | XMS RPT_ITS | CCD ---
Author Organization [facility] Care Team Providers Care Collection Systems Modeler Name Role Phone Unavailable Primary Care Provider [...] mg EC tablet Indications: Visit for screening ([facility]) Take 1 tablet by mouth once [...] Episodic Early or threatened labor (18 sources) [place] contractions; Translations: [False labor, unspecified] Onset: [...] Unclassified (16 sources) [facility] Education - [facility] Onset: 12-28-2024 12-28-2024 Unclassified (16 sources) Education - [place] Onset: 12-28-2024 12-28-2024 Unclassified (2 sources) POTS [...] Unsp challenge [Mass/Vol] 171 mg/dL Normal 74-179 [facility] Comment on above: Order Comment: Speci men Type: BLOOD SPECIMENOrdering Facility: [facility] Address: [address] [place] [address] Result Comment: [facility] Congress of Obstetricians and Gynecologists (Ashish/Niko) guidelines state gestational diabetes mellitus is present when 2 or more of the plasma glucose concentrations meet or exceed the following levels: fastin mg/dl, 1 hr: 180 mg/dl, 2 hr: 155 mg/dl, and 3 hr: 140 mg/dl. Performed By: #### 6 30-4 #### [facility] CLIA [id number] [address] [place], [place] [address] [address] [place] GLUCOSE GESTATIONAL, 2 HOURo n 03-15-2025 Glucose 2 Hr post Unsp challenge [Mass/Vol] 148 mg/dL Normal 74-154 [facility] Comment on above: Order Comment: Speci men Type: BLOOD SPECIMENOrdering Facility: [facility] Address: [address] [place] [address] Result Comment: [facility] Congress of Obstetricians and Gynecologists (Ashish/Niko) guidelines state gestational diabetes mellitus is present when 2 or more of the plasma glucose concentrations meet or exceed the following levels: fastin mg/dl, 1 hr: 180 mg/dl, 2 hr: 155 mg/dl, and 3 hr: 140 mg/dl. Performed By: #### G TGST2 ####[facility] [id number] [place] [address] [place] GLUCOSE GESTATIONAL, 3 HOURo n 03-15-2025 Glucose 3 Hr post Unsp challenge [Mass/Vol] 135 mg/dL Normal 74-139 [facility] Comment on above: Order Comment: Speci men Type: BLOOD SPECIMENOrdering Facility: [facility] Address: [address] [place] [address] Result Comment: [facility] Congress of Obstetricians and Gynecologists (Ashish/Niko) guidelines state gestational diabetes mellitus is present when 2 or more of the plasma glucose concentrations meet or exceed the following levels: fastin mg/dl, 1 hr: 180 mg/dl, 2 hr: 155 mg/dl, and 3 hr: 140 mg/dl. Performed By: #### 6 30-4 #### [facility] CLIA [id number] [address] [place] [address] [place] GLUCOSE GESTATIONAL, FASTING on 03-15-2025 Glucose post fast [Mass/Vol] 88 mg/dL Normal 74-94 [facility] Comment on above: Order Comment: Speci men Type: BLOOD SPECIMENOrdering Facility: [facility] Address: [address] [place] [address] Result Comment: [address] [facility] Congress of Obstetricians and Gynecologists (Ashish/Niko) guidelines state gestational diabetes mellitus is present when 2 or more of the plasma glucose concentrations meet or exceed the following levels: fastin mg/dl, 1 hr: 180 mg/dl, 2 hr: 155 mg/dl, and 3 hr: 140 mg/dl. Performed By: #### 6 30-4 #### [facility] CLIA [id number] [address] [place] [address] [place] OB Triage Physician Noteon 1 OB Triage Physician Note [facility] Medical Records Department [address] [place] [address] OB Triage Physician Note 03/14/25 1247 MR#: [id number] Acct: [id number] Name: PAL NICHOLAS Rep #: [id number] : 2005 19 From: Patsy March CNM [...] Current Estimate 05/31/25 Manual 28w 6d [facility] Medical History (Updated 03/14/25 @ 12:49 by [...] D/C home 03/14/25 1249 Date Patsy March [facility] Cosigner Signature (if applicable): Date _ CC: [facility] Patsy March; No Primary Care Physician Signed Normal [facility] ([facility]) Rupture Of Membraneson 03-13-2025 ROM Negative Normal Negative [facility] Comment on above: Result Comment: Amni otic fluid not present indicates No Rupture of Membranes at time of specimen collection. Performed By: #### L 205.1000 #### [facility] [address] [facility] [place], [address] BACTERIAL VAGINOSIS NAATon 1 Lactobacillus crispatus+gasseri+muniz ii + Gardnerella vaginalis + Atopobium vaginae rRNA JOHN+probe Ql (Vag fld) Not detected Normal Not detected [facility] Comment on above: Order Comment: Speci men Type: SWABOrdering Facility: [facility] Address: [address] [place] [address] Performed By: #### AAYUSH OROZCO ####[facility] LABCLIA [id number] [place] [address] [place] PARVEEN/TRICHOMONAS NAATon 1 C. glabrata RNA JOHN+probe Ql (Vag fld) Not detected Normal Not detected [facility] Comment on above: Order Comment: Speci men Type: SWABOrdering Facility: [facility] Address: [address] [place] [address] Performed By: #### B VAMP, CVTV ####[facility] LABCLIA [id number] [place] [address] [place] Parveen sp DNA JOHN+probe Ql (Vag fld) Not detected Normal Not detected [facility] Comment on above: Order Comment: Speci men Type: SWABOrdering Facility: [facility] Address: [address] [place] [address] Result Comment: The Parveen species group target includes C. albicans, C. tropicalis, C. parapsilosis, and C. dubliniensis. Performed By: #### B VAMP, CVTV ####[facility] LABCLIA [id number] [place] [address] [place] T. vaginalis DNA JOHN+probe Ql (Unsp spec) Not detected Normal Not detected [facility] Comment on above: Order Comment: Speci men Type: SWABOrdering Facility: [facility] Address: [address] [place] [address] Performed By: #### Helder VAMP, CVTV ####[facility] LABCLIA [id number] [place] [address] [place] CBC panel Auto (Bld)on 03-11 Erythrocyte distribution width (RBC) [Ratio] 13.2 % Normal 11.5-15.0 [facility] Comment on above: Order Comment: Speci men Type: BLOOD SPECIMENOrdering Facility: [facility] Address: [address] [place] [address] Performed By: #### 5 8410-2 ####[facility] [id number] [place] [address] [place] Hematocrit (Bld) [Volume fraction] 32.7 % Low 36.0-46.0 [facility] Comment on above: Order Comment: Speci men Type: BLOOD SPECIMENOrdering Facility: [facility] Address: [address] [place] [address] Performed By: #### 5 8410-2 ####[facility] ANNELIA [id number] [place] [address] [place] Hemoglobin (Bld) [Mass/Vol] 11.7 g/dL Normal 11.5-15.5 [facility] Comment on above: Order Comment: Speci men Type: BLOOD SPECIMENOrdering Facility: [facility] Address: [address] [place] [address] Performed By: #### 5 8410-2 ####[facility] [id number] [place] [address] [place] MCH (RBC) [Entitic mass] 31.7 pg Normal 26.0-34.0 [facility] Comment on above: Order Comment: Speci men Type: BLOOD SPECIMENOrdering Facility: [facility] Address: [address] [place] [address] Performed By: #### 5 8410-2 ####[facility] [id number] [place] [address] [place] MCHC (RBC) [Mass/Vol] 35.8 g/dL Normal 30.5-36.0 [facility] Comment on above: Order Comment: Speci men Type: BLOOD SPECIMENOrdering Facility: [facility] Address: [address] [place] [address] Performed By: #### 5 8410-2 ####[facility] JANNETTEWINSTON SALEMGIORGILIA [id number] [place] [address] [place] MCV (RBC) [Entitic vol] 88.6 fL Normal 80.0-100.0 [facility] Comment on above: Order Comment: Speci men Type: BLOOD SPECIMENOrdering Facility: [facility] Address: [address] [place] [address] Performed By: #### 5 8410-2 ####[facility] [id number] [place] [address] [place] Nucleated RBC (Bld) [#/Vol] 10*3/uL Normal <0.01 [facility] Comment on above: Order Comment: Speci men Type: BLOOD SPECIMENOrdering Facility: [facility] Address: [address] [place] [address] Performed By: #### 5 8410-2 ####[facility] [id number] [place] [address] [place] Platelet mean volume (Bld) [Entitic vol] 9.5 fL Normal 9.0-12.7 [facility] Comment on above: Order Comment: Speci men Type: BLOOD SPECIMENOrdering Facility: [facility] Address: [address] [place] [address] Performed By: #### 5 8410-2 ####[facility] [id number] [place] [address] [place] Platelets (Bld) [#/Vol] 244 10*3/uL Normal 150-400 [facility] Comment on above: Order Comment: Speci men Type: BLOOD SPECIMENOrdering Facility: [facility] Address: [address] [place] [address] Performed By: #### 5 8410-2 ####[facility] [id number] [place] [address] [place] RBC (Bld) [#/Vol] 3.69 10*6/uL Low 3.90-5.20 [facility] Comment on above: Order Comment: Speci men Type: BLOOD SPECIMENOrdering Facility: [facility] Address: [address] [place] [address] Performed By: #### 5 8410-2 ####[facility]ITALNCL[facility] [id number] [place] [address] [place] WBC (Bld) [#/Vol] 11.16 10*3/uL High 3.70-11.00 [facility] Comment on above: Order Comment: Speci men Type: BLOOD SPECIMENOrdering Facility: [facility] Address: [address] [place] [address] Performed By: #### 5 8410-2 ####[facility] [id number] [place] [address] [place] GESTATIONAL GLUCOSE SCREEN, 1-HOUR, 50 GRAM, NON-FASTINGon 03-11-2025 Glucose [Mass/Vol] 152 mg/dL High 74-134 [facility] Comment on above: Order Comment: Speci men Type: BLOOD SPECIMENOrdering Facility: [facility] Address: [address] [place] [address] Result Comment: [facility] Congress of Obstetricians and Gynecologists (Ashish/Niko) guidelines state a gestational diabetes mellitus positive screen is made, in women not previously diagnosed with overt diabetes, when the 1 hr plasma glucose level is equal to or above 140 mg/dL. The [facility] [place] recommends a 135 mg/dL cutoff. Performed By: #### G LTGST ####[facility] [id number] [place] [address] [place] MYCOPLASMA GENITALIUM NAATon 03-11-2025 M. genitalium DNA JOHN+probe Ql (U) Not detected Normal Not detected [facility] Comment on above: Order Comment: Speci men Type: URINE SPECIMENOrdering Facility: [facility] Address: [address] [place] [address] Performed By: #### M YGAMP ####[facility] LABCLIA [id number] [place] [address] [place] Reagin and Treponema pallidu m IgG and IgM [Interp]on 03-11-2025 T. pallidum IgG+IgM IA Ql (S) Non-Reactive Normal Nonreactive [facility] Comment on above: Order Comment: Speci men Type: BLOOD SPECIMENOrdering Facility: [facility] Address: [address] [place] [address] Performed By: #### 6 30-4 #### [facility] CLIA [id number] [address] [place] [address] [place] Reagin+T pallidum IgG+IgM Se rPl-Impon 03-11-2025 Reagin and Treponema pallidum IgG and IgM [Interp] Cannot exclude recent Treponemal infection if specimen collected within 7-10 days after appearance of suspect lesions or 2-3 weeks after an exposure. Clinical correlation is required. Normal [facility] Comment on above: Order Comment: Speci men Type: BLOOD SPECIMENOrdering Facility: [facility] Address: [address] [place] [address] Performed By: #### 6 30-4 #### [facility] CLIA [id number] [address] [place] [address] [place] TYPE + SCREEN PRENATALon ABO O Normal [facility] Comment on above: Order Comment: Speci men Type: BLOOD SPECIMENOrdering Facility: [facility] Address: [address] [place] [address] Performed By: #### T SPN ####[facility] LABCLIA [id number] [place] [address] [place] Rh Nom (Bld) Negative Normal [facility] Comment on above: Order Comment: Speci men Type: BLOOD SPECIMENOrdering Facility: [facility] Address: [address] [place] [address] Performed By: #### T SPN ####[facility] LABCLIA [id number] [place] [address] [place] TYPE AND SCREEN EXPIRATION 03/14/2025 23:59 Normal [facility] Comment on above: Order Comment: Speci men Type: BLOOD SPECIMENOrdering Facility: [facility] Address: [address] [place] [address] Performed By: #### T SPIrving ####[facility] MAIN LABCLIA [id number] [address] OF [facility] CNOVon 03-08-2025 CNOV Office Visit (AGCARDHWG) PAL NICHOLAS Radha ([id number]) 3 F Date Time Provider Department 03/08/25 [...] provider ID). REFERRING PHYSICIAN: Lynnette [address] Rd [facility] [address] CHIEF COMPLAINT: Abnormal EKG HISTORY OF PRESENT [...] of illicit drugs. 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 She has 1 other sibling. She is here in the office with her mom. Paternal grandfather suddenly at age 49. She stated the diagnosis of Myles-Danlos was made by a meringuer and patcher wood welder. She is not sure if she had genetic testing. 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 Nontender. EXTREMETIES: No peripheral edema. Grade [...] (more content not included)... Normal [facility] OB Triage Physician Noteon 0 02-23-2025 OB Triage Physician Note [facility] Medical Records Department [address] [place] [address] OB Triage Physician Note 02/23/252054 MR#: [id number] Acct: [id number] Name: PAL NICHOLAS Rep #: [id number] : 2005 19 From: Lester Phillips MD PCP: Care Physician,No Primary Status:REG CLI Y Location: [id number] HPI - General General Date of Service: 02/23/25 HPI Narrative PAL NICHOLAS, is a 19 F who presents back pain, side pain and some contractions. Maternal Data Information AMARI Calculator Estimated Delivery Date Method Current WG Current Estimate 05/31/25 Manual 26w 1d [facility] Medical History (Updated 02/23/25 @ 20:56 [...] (if applicable): Date _ CC: Dr. Lester hPillips MD; No Primary Care Physician Signed [facility] 02-22-2025 [facility] Telephone (GYURWP) PAL NICHOLAS ([id number]) 3 F Date Time Provider Department 02/22/25 KARI JOHNSTON GYURWP During your visit today, we recorded the following information about you: Deep Owen RN 02/22/2025 11:09 AM Signed Called patient in regards to catheter supplies per request of Kari Nguyen MD P [facility] Clinical Pool; P [facility] Schedulers Pool I placed an order [...] Encounter Status:Closed by DEEP OWEN on 02/22/25 [facility] CNOVon 02-18-2025 CNOV Office Visit (GYKARSTEN) SARAHY PAL KAUR ([id number]) 3 F Date Time Provider Department 02/18/25 11:30 AM KARI JOHNSTON During your visit today, we recorded the following information about you: Weight 80.8 kg Kari Johnston MD 02/18/2025 1:16 PM Signed Female Pelvic Medicine AND Reconstructive Surgery Consult Recording using Kavalia software for draft documentation of the visit was discussed with the patient/authorized claims service representative; all questions welcomed and answered. Patient/authorized claims service representative agreed to proceed CHIEF COMPLAINT: Pal [...] Hematological: Nega (more content not included)... Normal [facility] 02-16-2025 [facility] Telephone (AKPOB) PAL NICHOLAS ([id number]) 3 F Date Time Provider Department 02/16/25 [...] Status:Closed by CLEM SAAVEDRA on 02/16/25 [facility] 02-15-2025 [facility] PAL NICHOLAS ([id number]) 3 F Date Time Provider Department 02/15/25 [...] CLEM SAAVEDRA on 02/15/25 Normal [facility] Bacteria Ur Culton Bacteria identified Cx Nom (U) CULTURE, URINE: No growth (<100 CFU/ml) Normal [facility] Comment on above: Performed By: #### 6 30-4, 84997-7 #### [facility] CLIA [id number] [address] OF [facility] OB Triage Physician Noteon 0 02-13-2025 OB Triage Physician Note [facility] Medical Records Department [address] [place] [address] OB Triage Physician Note 02/13/25 2321 MR#: [id number] Acct: [id number] Name: PAL NICHOLAS Rep #: [id number] : 2005 19 From: Magda Aragon MD PCP: Care Physician,No Primary Status:DEP CLI Y Location: [facility] - General General Date of Service: 02/13/25 Chief Complaint: pain HPI Narrative PAL NICHOLAS, is a 19 F who presents with bladder pain and unable to void. Was in Triage at [facility] early and had straight cath for [...] MD; No Primary Care Physician Signed Normal [facility] Urinalysis complete panel (U )on 02-13-2025 Bilirubin Ql (U) Negative Normal Negative [facility] Comment on above: Order Comment: Speci men Type: URINE SPECIMEN [facility] Address: [address] [place] [address] Performed By: #### 6 30-4, 03193-0 #### [facility] CLIA [id number] [address] Clarity (Unsp spec) Clear Normal Clear [facility] Comment on above: Order Comment: Speci men Type: URINE SPECIMEN [facility] Address: [address] [place] [address] Performed By: #### 6 30-4, 04338-6 #### [facility] CLIA [id number] [address] Color (U) Light Yellow Normal yellow [facility] Comment on above: Order Comment: Speci men Type: URINE SPECIMEN [facility] Address: [address] [place] [address] Performed By: #### 6 30-4, 90159-8 #### [facility] CLIA [id number] [address] Epithelial cells LM.HPF (Urine sed) [#/Area] Few Abnormal None Seen [facility] Comment on above: Order Comment: Speci men Type: URINE SPECIMEN [facility] Address: [address] [place] [address] Performed By: #### 6 30-4, 55408-2 #### [facility] CLIA [id number] [address] [place] Glucose Test strip (U) [Mass/Vol] Negative Normal Trace, Negative [facility] Comment on above: Order Comment: Speci men Type: URINE SPECIMEN [facility] Address: [address] [place] [address] Performed By: #### 6 30-4, 57223-2 #### [facility] CLIA [id number] [address] [place] Hemoglobin Ql (U) Negative Normal Negative, Trace [facility] Comment on above: Order Comment: Speci men Type: URINE SPECIMEN [facility] Address: [address] [place] [address] Performed By: #### 6 30-4, 69847-1 #### [facility] CLIA [id number] [address] Ketones Ql (U) Negative Normal Negative, Trace [facility] Comment on above: Order Comment: Speci men Type: URINE SPECIMEN [facility] Address: [address] [place] [address] Performed By: #### 6 30-4, 04670-0 #### [facility] CLIA [id number] [address] Leukocyte esterase Test strip Ql (U) 75 Maryann/uL Abnormal Negative, 25 Maryann/uL [facility] Comment on above: Order Comment: Speci men Type: URINE SPECIMEN [facility] Address: [address] [place] [address] Performed By: #### 6 30-4, 78171-0 #### [facility] CLIA [id number] [address] OF [facility] Nitrite Ql (U) Negative Normal Negative [facility] Comment on above: Order Comment: Speci men Type: URINE SPECIMEN [facility] Address: [address] [place] [address] Performed By: #### 6 304, 54062-6 #### [facility] CLIA [id number] [address] [place] pH (U) 7.0 [pH] Normal 5.0-8.0 [facility] Comment on above: Order Comment: Speci men Type: URINE SPECIMEN [facility] Address: [address] [place] [address] Performed By: #### 6 30-4, 15547-6 #### [facility] CLIA [id number] [address] [place] Protein (U) [Mass/Vol] Negative Normal Trace , Negative [facility] Comment on above: Order Comment: Speci men Type: URINE SPECIMEN [facility] Address: [address] [place] [address] Performed By: #### 6 30-4, 64001-7 #### [facility] CLIA [id number] [address] RBC LM.HPF (Urine sed) [#/Area] 0-3 /HPF Normal 0-3 /HPF [facility] Comment on above: Order Comment: Speci men Type: URINE SPECIMEN [facility] Address: [address] [place] [address] Performed By: #### 6 30-4, 35392-8 #### [facility] CLIA [id number] [address] Specific gravity (U) [Rel density] 1.019 Normal 1.005-1.030 [facility] Comment on above: Order Comment: Speci men Type: URINE SPECIMEN [facility] Address: [address] [place] [address] Performed By: #### 6 30-4, 36875-2 #### [facility] CLIA [id number] [address] Urobilinogen Ql (U) Normal Normal Normal [facility] Comment on above: Order Comment: Speci men Type: URINE SPECIMEN [facility] Address: [address] [place] [address] Performed By: #### 6 30-4, 40247-4 #### [facility] CLIA [id number] [address] WBC LM.HPF (Urine sed) [#/Area] 11-25 /HPF Abnormal 0-5 /HPF [facility] Comment on above: Order Comment: Speci men Type: URINE SPECIMEN [facility] Address: [address] [place] [address] Performed By: #### 6 30-4, 05260-8 #### [facility] CLIA [id number] [address] [place] [address] [place] BACTERIAL VAGINOSIS NAATon 0 02-08-2025 Interpretation and review of laboratory results Normal [facility] Lactobacillus crispatus+gasseri+muniz ii + Gardnerella vaginalis + Atopobium vaginae rRNA JOHN+probe Ql (Vag fld) Not detected Not detected [facility] Lactobacillus crispatus+gasseri+muniz ii + Gardnerella vaginalis + Atopobium vaginae rRNA JOHN+probe Ql (Vag fld) Not detected Normal Not detected [facility] Comment on above: Order Comment: Speci men Type: SWABOrdering Facility: [facility] Address: [address] [place] [address] Performed By: #### 6 30-4 #### [facility] CLIA [id number] [address] [place] [address] [place] Bacteria Ur Culton Bacteria identified Cx Nom (U) CULTURE, URINE: No growth (<1,000 CFU/ml) Normal [facility] Comment on above: Performed By: #### 6 30-4 #### [facility] CLIA [id number] [address] [place] [address] [place] PARVEEN/TRICHOMONAS NAATon 0 02-08-2025 C. glabrata RNA JOHN+probe Ql (Vag fld) Not detected Not detected [facility] Parveen sp DNA JOHN+probe Ql (Vag fld) Not detected Not detected [facility] Comment on above: The Parveen species group target includes C. albicans, C. tropicalis, C. parapsilosis, and C. dubliniensis. Interpretation and review of laboratory results Normal [facility] T. vaginalis DNA OJHN+probe Ql (Unsp spec) Not detected Not detected [facility] C. glabrata RNA JOHN+probe Ql (Vag fld) Not detected Normal Not detected [facility] Comment on above: Order Comment: Speci men Type: SWABOrdering Facility: [facility] Address: [address] [place] [address] Performed By: #### 6 30-4 #### [facility] CLIA [id number] [address] [place] [address] [place] Parveen sp DNA JOHN+probe Ql (Vag fld) Not detected Normal Not detected [facility] Comment on above: Order Comment: Speci men Type: SWABOrdering Facility: [facility] Address: [address] [place] [address] Result Comment: The Parveen species group target includes C. albicans, C. tropicalis, C. parapsilosis, and C. dubliniensis. Performed By: #### 6 30-4 #### [facility] CLIA [id number] [address] [place] [address] [place] T. vaginalis DNA JOHN+probe Ql (Unsp spec) Not detected Normal Not detected [facility] Comment on above: Order Comment: Speci men Type: SWABOrdering Facility: [facility] Address: [address] [place] [address] Performed By: #### 6 30-4 #### [facility] CLIA [id number] [address] [place] [address] [place] UA DIP, URINE (POC)on 2024 BILIRUBIN UA (POCT) Negative Negative [facility] CLARITY UA (POCT) Clear [facility] COLOR UA (POCT) Yellow [facility] GLUCOSE UA (POCT) Negative Negative mg/dL [facility] Hemoglobin Ql (U) Negative Negative [facility] KETONE UA (POCT) Negative Negative mg/dL [facility] LEUKOCYTES UA (POCT) Negative Negative [facility] NITRITE UA (POCT) Negative Negative [facility] PH UA (POCT) 7.0 4.5 - 8.0 [facility] Protein Ql (U) Negative Negative mg/dL [facility] SPECIFIC GRAVITY UA (POCT) 1.010 1.005 - 1.030 [facility] UROBILINOGEN UA (POCT) 0.2 Normal E.U./d L [facility] Location:[facility], [address] , [place], [place], [id number] [place] [address] POINT OF CARE [facility] Urine Cultureon 02-06-2025 URC Culture exhibits no growth. Normal [facility] Comment on above: Performed By: #### L 500.4050 #### [facility] [address] [place], [address] CNPNon 02-05-2025 CNPN Telephone (OBGYWM) PAL NICHOLAS ([id number]) 3 F Date Time Provider Department 02/05/25 [...] fluid. Patient advised to go to [facility] for evaluation. [facility] notified. Jocelyne Black RN Allergies [...] Status:Closed by JOCELYNE BLACK on 02/05/25 Normal [facility] OB Triage Physician Noteon 0 02-05-2025 OB Triage Physician Note [facility] Medical Records Department [address] [facility] [place] [place] [address] OB Triage Physician Note 02/05/25 1742 MR#: [id number] Acct: [id number] Name: PAL NICHOLAS Rep #: [id number] : 2005 19 From: Lynnette Tapia CNM PCP: Care Physician,No Primary Status:REG CLI Y Location: [id number] HPI - General General Chief Complaint: ctx's [...] Suprapubic pain: (3) History of UTI: (4) [place] Zaragoza' contraction: COMMENT: cervix closed (5) 23 weeks gestation of : PLAN: Plan Positive movements Increase fluids CE - closed/ unchanged Continue taking Macrobid 100 mg Po BID- did not take dose today D/C home with follow up in office 02/05/25 3550 Date Lynnette Sandoval Signature (if applicable): Date _ CC: HUMPHREY Tapia; No Primary Care Physician Signed Normal [facility] Bilirubin Test strip Ql (U)O rdered By: Ramakrishna Corley on 02-04-2025 Bilirubin Ql (U) Negative Negative [facility] Ketones Test strip Ql (U)Ord ered By: Ramakrishna Corley on 02-04-2025 Ketones Ql (U) Negative Negative [facility] Nitrite Test strip Ql (U)Ord ered By: Ramakrishna Corley on 02-04-2025 Nitrite Ql (U) Negative Negative [facility] OB Triage Physician Noteon 0 02-04-2025 OB Triage Physician Note [facility] Medical Records Department [address] [place] [address] OB Triage Physician Note 02/04/25 2355 MR#: [id number] Acct: [id number] Name: PAL NICHOLAS Rep #: [id number] : 2005 19 From: Ramakrishna Corley DO PCP: Care Physician,No Primary Status:REG CLI Y Location: [address] Date of Service: 02/04/25 Chief Complaint: ctx's HPI Narrative PAL NICHOLAS, is a 19 F who presents ctx's. She states she has had contractions and abdominal pain for 1-2 weeks. Went to [facility] 2 weeks ago for this and had [...] vb or lof. No constipation or diarrhea. [facility] Medical History (Updated 02/05/25 @ [...] (1) 23 weeks gestation of : (2) [place]za' contraction: COMMENT: cervix closed PLAN: Cervix [...] DO; No Primary Care Physician Signed Normal [facility] Protein Test strip Ql (U)Ord ered By: Ramakrishna Corley on 02-04-2025 Protein Ql (U) Negative Negative [facility] Urinalysis, Routine (Dipstic k)on 02-04-2025 BILIRUBIN URINE Negative Normal Negative [facility] Comment on above: Order Comment: CLEAN CATCH Performed By: #### L 400.2010 #### [facility] [address] [place], [address] Clarity (U) Clear Normal Clear [facility] Comment on above: Order Comment: CLEAN CATCH Performed By: #### L 400.2010 #### [facility] [address] [place], [address] Color (U) Yellow Normal Yellow [facility] Comment on above: Order Comment: CLEAN CATCH Performed By: #### L 400.2010 #### [facility] [address] [place], [address] GLUCOSE, UR Normal Normal Normal [facility] Comment on above: Order Comment: CLEAN CATCH Performed By: #### L 400.2010 #### [facility] [address] [place], [address] KETONE UR Negative Normal Negative [facility] Comment on above: Order Comment: CLEAN CATCH Performed By: #### L 400.2010 #### [facility] [address] [place], [address] LEUK ESTERASE 25 /ul Abnormal Negative [facility] Comment on above: Order Comment: CLEAN CATCH Performed By: #### L 400.2010 #### [facility] [address] [place], [address] Nitrite Ql (U) Negative Normal Negative [facility] Comment on above: Order Comment: CLEAN CATCH Performed By: #### L 400.2010 #### [facility] [address] [place], [address] OCCULT BLOOD-UR Negative Normal Negative [facility] Comment on above: Order Comment: CLEAN CATCH Performed By: #### L 400.2010 #### [facility] [address] [place], [address] pH UR 6.5 Normal 5.0 - 8.0 [facility] Comment on above: Order Comment: CLEAN CATCH Performed By: #### L 400.2010 #### [facility] [address] [place], [address] PROT DIPSTX Negative Normal Negative [facility] Comment on above: Order Comment: CLEAN CATCH Performed By: #### L 400.2010 #### [facility] [address] [place], [address] SP.GR. DIPSTX 1.015 Normal 1.002-1.030 [facility] Comment on above: Order Comment: CLEAN CATCH Performed By: #### L 400.2010 #### [facility] [address] [place], [address] UROBILI Normal Normal Normal [facility] Comment on above: Order Comment: CLEAN CATCH Performed By: #### L 400.2010 #### [facility] [address] [place], [address] Urine Cultureon 02-04-2025 URC Culture exhibits no growth. Normal [facility] Comment on above: Performed By: #### L 500.4050 #### [facility] [address] [place], [address] Urine clarityOrdered By: Benjamin Corley on 02-04-2025 Clarity (U) Clear Clear [facility] Urine color determinationOrd ered By: Ramakrishna Corley on 02-04-2025 Color (U) Yellow Yellow [facility] Urine cultureOrdered By: Benjamin Corley on 02-04-2025 Bacteria identified Cx Nom (U) Culture exhibits no growth. [facility] Urine glucose detectionOrder ed By: Ramakrishna Corley on 02-04-2025 Glucose Ql (U) Normal mg/dl Normal [facility] Urine leukocyte esterase det ection by dipstickOrdered By: Ramakrishna Corley on 02-04-2025 Leukocyte esterase Test strip Ql (U) 25 /ul High Negative [facility] Urine pHOrdered By: Ramakrishna mcpherson on 02-04-2025 pH (U) 6.5 [pH] 5.0 - 8.0 [facility] Urine specific gravity measu rementOrdered By: Ramakrishna Corley on 02-04-2025 Specific gravity (U) [Rel density] 1.015 1.002-1.030 [facility] Urine urobilinogen measureme ntOrdered By: Ramakrishnakunal Corley on 02-04-2025 Urobilinogen Ql (U) Normal mg/dl Normal [facility] Bilirubin Test strip Ql (U)O rdered By: Magda Aragon on 02-02-2025 Bilirubin Ql (U) Negative Negative [facility] Ketones Test strip Ql (U)Ord ered By: Magda Aragon on 02-02-2025 Ketones Ql (U) Negative Negative [facility] Microscopic analysis of urin e for red blood cells (RBC)Ordered By: Magda Aragon on 02-02-2025 Microscopic analysis of urine for red blood cells (RBC) 0 SEEN /hpf 0-5 [facility] Mucus LM Ql (Urine sed)Order ed By: Magda Aragon on 02-02-2025 Mucus Ql (Urine sed) 0 SEEN /hpf [facility] Nitrite Test strip Ql (U)Ord ered By: Magda Aragon on 02-02-2025 Nitrite Ql (U) Negative Negative [facility] OB Triage Physician Noteon 0 02-02-2025 OB Triage Physician Note [facility] Medical Records Department [address] [place] [address] OB Triage Physician Note 02/02/25 2336 MR#: [id number] Acct: [id number] Name: PAL NICHOLAS Rep #: [id number] : 2005 19 From: Magda Aragon MD PCP: Care Physician,No Primary Status:REG CLI Y Location: PV524-5 HPI - General General Date of Admission: 02/02/25 Date of Service: 02/02/25 Chief Complaint: cramping HPI Narrative PAL NICHOLAS, is a 19 F who presents cramping. No bleeding. Some movement. Was seen in office today with normal discharge. Maternal Data Information Final AMARI: 05/31/25 Gestational age: 22 [facility] Medical History (Updated 02/02/25 @ 23:38 [...] (1) 23 weeks gestation of : (2) [place]' contraction: COMMENT: cervix closed 02/02/25 0737 Date Magda Aragon MD Cosigner Signature (if applicable): Date _ CC: Dr. Magda Aragon MD; No Primary Care Physician Signed Normal [facility] Protein Test strip Ql (U)Ord ered By: Magda Aragon on 02-02-2025 Protein Ql (U) 15 mg/dl High Negative [facility] Squamous epithelial cells de tection in urine sediment by light microscopyOrdered By: Magda Aragon on 02-02-2025 Epithelial cells.squamous LM Ql (Urine sed) 0-5 SEEN /hpf 5-10 [facility] UA DIP, URINE (POC)on 2024 BILIRUBIN UA (POCT) Negative Negative [facility] CLARITY UA (POCT) Clear [facility] COLOR UA (POCT) Yellow [facility] GLUCOSE UA (POCT) Negative Negative mg/dL [facility] Hemoglobin Ql (U) Negative Negative [facility] KETONE UA (POCT) Negative Negative mg/dL [facility] LEUKOCYTES UA (POCT) Negative Negative [facility] NITRITE UA (POCT) Negative Negative [facility] PH UA (POCT) 7.0 4.5 - 8.0 [facility] Protein Ql (U) Negative Negative mg/dL [facility] SPECIFIC GRAVITY UA (POCT) 1.010 1.005 - 1.030 [facility] UROBILINOGEN UA (POCT) 0.2 Normal E.U./d L [facility] Location:[facility], [address], [place], [address] [facility] POINT OF CARE [facility] Urinalysis, Completeon 02-02 EPI,SQUAMOUS 0-5 SEEN Normal 5-10 [facility] Comment on above: Order Comment: CLEAN CATCH Performed By: #### L 400.0001 #### [facility] [address] [place], [address] BACTERIA 0 SEEN Normal None Seen [facility] Comment on above: Order Comment: CLEAN CATCH Performed By: #### L 400.0001 #### [facility] [address] [place], [address] Mucus Ql (Urine sed) 0 SEEN Normal [facility] Comment on above: Order Comment: CLEAN CATCH Performed By: #### L 400.0001 #### [facility] [address] [place], [address] RBC 0 SEEN Normal 0-5 [facility] Comment on above: Order Comment: CLEAN CATCH Performed By: #### L 400.0001 #### [facility] [address] [place], [address] WBC 0 SEEN Normal 0-5 [facility] Comment on above: Order Comment: CLEAN CATCH Performed By: #### L 400.0001 #### [facility] [address] [place], [address] BACTERIA Normal None Seen [facility] Comment on above: Order Comment: MINOO CTOR TO SPECIFY Result Comment: Canc elled via OM: Order edited - Discontinuing original order Performed By: #### L 400.0001 #### [facility] [address] [place], [address] BILIRUBIN URINE Normal Negative [facility] Comment on above: Order Comment: COLLE CTOR TO SPECIFY Result Comment: Canc elled via OM: Order edited - Discontinuing original order Performed By: #### L 400.0001 #### [facility] [address] [place], [address] Clarity (U) Normal Clear [facility] Comment on above: Order Comment: MINOO CTOR TO SPECIFY Result Comment: Canc elled via OM: Order edited - Discontinuing original order Performed By: #### L 400.0001 #### [facility] [address] [place], [address] Color (U) Normal Yellow [facility] Comment on above: Order Comment: MINOO CTOR TO SPECIFY Result Comment: Canc elled via OM: Order edited - Discontinuing original order Performed By: #### L 400.0001 #### [facility] [address] [place], [address] EPI,SQUAMOUS Normal 5-10 [facility] Comment on above: Order Comment: MINOO CTOR TO SPECIFY Result Comment: Canc elled via OM: Order edited - Discontinuing original order Performed By: #### L 400.0001 #### [facility] [address] [place], [address] GLUCOSE, UR Normal Normal [facility] Comment on above: Order Comment: MINOO CTOR TO SPECIFY Result Comment: Canc elled via OM: Order edited - Discontinuing original order Performed By: #### L 400.0001 #### [facility] [address] [place], [address] KETONE UR Normal Negative [facility] Comment on above: Order Comment: COLLE CTOR TO SPECIFY Result Comment: Canc elled via OM: Order edited - Discontinuing original order Performed By: #### L 400.0001 #### [facility] [address] [place], [address] LEUK ESTERASE Normal Negative [facility] Comment on above: Order Comment: COLLE CTOR TO SPECIFY Result Comment: Canc elled via OM: Order edited - Discontinuing original order Performed By: #### L 400.0001 #### [facility] [address] [place], [address] Mucus Ql (Urine sed) Normal [facility] Comment on above: Order Comment: COLLE CTOR TO SPECIFY Result Comment: Canc elled via OM: Order edited - Discontinuing original order Performed By: #### L 400.0001 #### [facility] [address] [place], [address] Nitrite Ql (U) Normal Negative [facility] Comment on above: Order Comment: COLLE CTOR TO SPECIFY Result Comment: Canc elled via OM: Order edited - Discontinuing original order Performed By: #### L 400.0001 #### [facility] [address] [place], [address] OCCULT BLOOD-UR Normal Negative [facility] Comment on above: Order Comment: COLLE CTOR TO SPECIFY Result Comment: Canc elled via OM: Order edited - Discontinuing original order Performed By: #### L 400.0001 #### [facility] [address] [place], [address] pH UR Normal 5.0 - 8.0 [facility] Comment on above: Order Comment: COLLE CTOR TO SPECIFY Result Comment: Canc elled via OM: Order edited - Discontinuing original order Performed By: #### L 400.0001 #### [facility] [address] [place], [address] PROT DIPSTX Normal Negative [facility] Comment on above: Order Comment: COLLE CTOR TO SPECIFY Result Comment: Canc elled via OM: Order edited - Discontinuing original order Performed By: #### L 400.0001 #### [facility] [address] [place], [address] RBC Normal 0-5 [facility] Comment on above: Order Comment: COLLE CTOR TO SPECIFY Result Comment: Canc elled via OM: Order edited - Discontinuing original order Performed By: #### L 400.0001 #### [facility] [address] [place], [address] SP.GR. DIPSTX Normal 1.002-1.030 [facility] Comment on above: Order Comment: COLLE CTOR TO SPECIFY Result Comment: Canc elled via OM: Order edited - Discontinuing original order Performed By: #### L 400.0001 #### [facility] [address] [place], [address] UR Preservative Normal [facility] Comment on above: Order Comment: COLLE CTOR TO SPECIFY Result Comment: Canc elled via OM: Order edited - Discontinuing original order Performed By: #### L 400.0001 #### [facility] [address] [place], [address] UROBILI Normal Normal [facility] Comment on above: Order Comment: COLLE CTOR TO SPECIFY Result Comment: Canc elled via OM: Order edited - Discontinuing original order Performed By: #### L 400.0001 #### [facility] [address] [place], [address] WBC Normal 0-5 [facility] Comment on above: Order Comment: COLLE CTOR TO SPECIFY Result Comment: Canc elled via OM: Order edited - Discontinuing original order Performed By: #### L 400.0001 #### [facility] [address] [place], [address] Urine clarityOrdered By: Jazmin Aragon on 02-02-2025 Clarity (U) Clear Clear [facility] Urine color determinationOrd ered By: Magda Aragon on 02-02-2025 Color (U) Straw Yellow [facility] Urine cultureOrdered By: Jazmin Aragon on 02-02-2025 Bacteria identified Cx Nom (U) Culture exhibits no growth. [facility] Urine glucose detectionOrder ed By: Magda Aragon on 02-02-2025 Glucose Ql (U) Normal mg/dl Normal [facility] Urine leukocyte esterase det ection by dipstickOrdered By: Magda Aragon on 02-02-2025 Leukocyte esterase Test strip Ql (U) Negative Negative [facility] Urine pHOrdered By: Magda Aragon on 02-02-2025 pH (U) 7.0 [pH] 5.0 - 8.0 [facility] Urine sediment bacteria coun t by microscopy (number/high power field)Ordered By: Magda Aragon on 02-02-2025 Bacteria LM.HPF (Urine sed) [#/Area] 0 /[HPF] None Seen [facility] Urine specific gravity measu rementOrdered By: Magda Aragon on 02-02-2025 Specific gravity (U) [Rel density] 1.010 1.002-1.030 [facility] Urine urobilinogen measureme ntOrdered By: Magda Aragon on 02-02-2025 Urobilinogen Ql (U) Normal mg/dl Normal [facility] White blood cell countOrdere d By: Magda Aragon on 02-02-2025 White blood cell count 0 SEEN /hpf 0-5 [facility] BACTERIAL VAGINOSIS NAATon 0 01-20-2025 Interpretation and review of laboratory results Normal [facility] Lactobacillus crispatus+gasseri+muniz ii + Gardnerella vaginalis + Atopobium vaginae rRNA JOHN+probe Ql (Vag fld) Not detected Not detected [facility] Lactobacillus crispatus+gasseri+muniz ii + Gardnerella vaginalis + Atopobium vaginae rRNA JOHN+probe Ql (Vag fld) Not detected Normal Not detected [facility] Comment on above: Order Comment: Speci men Type: SWABOrdering Facility: [facility] Address: [address] [place], [place] [id number] Performed By: #### C VTV, BVAMP ####[facility] LABCLIA [id number] [place] [address] [place] PARVEEN/TRICHOMONAS NAATon 0 01-20-2025 C. glabrata RNA JOHN+probe Ql (Vag fld) Not detected Not detected [facility] Parveen sp DNA JOHN+probe Ql (Vag fld) Not detected Not detected [facility] Comment on above: The Parveen species group target includes C. albicans, C. tropicalis, C. parapsilosis, and C. dubliniensis. Interpretation and review of laboratory results Normal [facility] T. vaginalis DNA JOHN+probe Ql (Unsp spec) Not detected Not detected [facility] C. glabrata RNA JOHN+probe Ql (Vag fld) Not detected Normal Not detected [facility] Comment on above: Order Comment: Speci men Type: SWABOrdering Facility: [facility] Address: [address] [place] [address] Performed By: #### C VTV, BVAMP ####[facility] LABCLIA [id number] [address] [place] Parveen sp DNA JOHN+probe Ql (Vag fld) Not detected Normal Not detected [facility] Comment on above: Order Comment: Speci men Type: SWABOrdering Facility: [facility] Address: [address] [place] [address] Result Comment: The Parveen species group target includes C. albicans, C. tropicalis, C. parapsilosis, and C. dubliniensis. Performed By: #### C VTV, BVAMP ####[facility] LABCLIA [id number] [place] [address] [place] T. vaginalis DNA JOHN+probe Ql (Unsp spec) Not detected Normal Not detected [facility] Comment on above: Order Comment: Speci men Type: SWABOrdering Facility: [facility] Address: [address] [place] [address] Performed By: #### C VTV, BVAMP ####[facility] LABCLIA [id number] [place] [id number] [place] [facility] [id number] 01-19-2025 [id number] HNO ID: [id number] Author: ARMIDA NEVES RN Service: ? Author Type: Registered Nurse Type: [id number] Filed: 01/19/2025 03:42 Note Text: Precautions given, patient verbalized understanding. Instructed to call her OB doctor for follow up. Normal [facility] Bacteria Ur Culton Bacteria identified Cx Nom (U) CULTURE, URINE: No growth (<1,000 CFU/ml) Normal [facility] Comment on above: Performed By: #### H STNT #### [facility] CLIA [id number] 1 [place], [place] [address] [place] [address] CT ABD/PEL WO IVCONon 2024 CT ABD/PEL WO IVCON * * *Final Report* * * DATE OF EXAM: Jan 19 2025 12:50AM [facility] 0531 - CT ABD/PEL WO IVCON [...] noncontrast CT. Recommend correlation with obstetric ultrasound. Pool Lifeguard: HIEU Transcribe Date/Time: Jan 19 2025 2:36A Dictated by : BONIFACIO GAYLE DO This examination was interpreted and the report reviewed and electronically signed by: BONIFACIO GAYLE DO on Jan 19 2025 2:54AM EST [id number] CN Normal [facility] CBC panel Auto (Bld)on 01-18 Erythrocyte distribution width (RBC) [Ratio] 14.1 % Normal 11.5-15.0 [facility] Comment on above: Order Comment: Specelsa thorpe Type: BLOOD SPECIMEN Ordering Facility: [facility] Address: [address] [place] [address] Performed By: #### 5 8410-2 #### [facility] CLIA [id number] [address] [place] Hematocrit (Bld) [Volume fraction] 34.6 % Low 36.0-46.0 [facility] Comment on above: Order Comment: Destini thorpe Type: BLOOD SPECIMEN Ordering Facility: [facility] Address: [address] [place] [address] Performed By: #### 5 8410-2 #### [facility] CLIA [id number] [address] [place] Hemoglobin (Bld) [Mass/Vol] 11.5 g/dL Normal 11.5-15.5 [facility] Comment on above: Order Comment: Speci men Type: BLOOD SPECIMEN Ordering Facility: [facility] Address: [address] [place] [address] Performed By: #### 5 8410-2 #### [facility] CLIA [id number] [address] MCH (RBC) [Entitic mass] 31.0 pg Normal 26.0-34.0 [facility] Comment on above: Order Comment: Speci men Type: BLOOD SPECIMEN Ordering Facility: [facility] Address: [address] [place] [address] Performed By: #### 5 8410-2 #### [facility] CLIA [id number] [address] MCHC (RBC) [Mass/Vol] 33.2 g/dL Normal 30.5-36.0 [facility] Comment on above: Order Comment: Speci men Type: BLOOD SPECIMEN Ordering Facility: [facility] Address: [address] [place] [address] Performed By: #### 5 8410-2 #### [facility] CLIA [id number] [address] MCV (RBC) [Entitic vol] 93.3 fL Normal 80.0-100.0 [facility] Comment on above: Order Comment: Speci men Type: BLOOD SPECIMEN Ordering Facility: [facility] Address: [address] [place] [address] Performed By: #### 5 8410-2 #### [facility] CLIA [id number] [address] Nucleated RBC (Bld) [#/Vol] 10*3/uL Normal <0.01 [facility] Comment on above: Order Comment: Speci men Type: BLOOD SPECIMEN Ordering Facility: [facility] Address: [address] [place] [address] Performed By: #### 5 8410-2 #### [facility] CLIA [id number] [address] Platelet mean volume (Bld) [Entitic vol] 9.2 fL Normal 9.0-12.7 [facility] Comment on above: Order Comment: Speci men Type: BLOOD SPECIMEN Ordering Facility: [facility] Address: [address] [place] [address] Performed By: #### 5 8410-2 #### [facility] CLIA [id number] [address] Platelets (Bld) [#/Vol] 242 10*3/uL Normal 150-400 [facility] Comment on above: Order Comment: Speci men Type: BLOOD SPECIMEN Ordering Facility: [facility] Address: [address] [place] [address] Performed By: #### 5 8410-2 #### [facility] CLIA [id number] [address] RBC (Bld) [#/Vol] 3.71 10*6/uL Low 3.90-5.20 [facility] Comment on above: Order Comment: Speci men Type: BLOOD SPECIMEN Ordering Facility: [facility] Address: [address] [place] [address] Performed By: #### 5 8410-2 #### [facility] CLIA [id number] [address] WBC (Bld) [#/Vol] 10.04 10*3/uL Normal 3.70-11.00 [facility] Comment on above: Order Comment: Speci men Type: BLOOD SPECIMEN Ordering Facility: [facility] Address: [address] [place] [address] Performed By: #### 5 8410-2 #### [facility] CLIA [id number] [address] Landen 01-18-2025 RUBÉN Telephone (OBGYWM) SARAHY KAURLAURAGEO Radha ([id number]) 3 F Date Time Provider Department 01/18/25 LYNNETTE TAPIA During your visit today, we recorded the following information about you: Isaura Pereira RN 01/18/2025 8:46 AM Signed Breast pump order received from [employer]. To CP to sign. LEVON Hutson Lindsey, [...] by JOCELYNE BLACK on 01/20/25 Normal [facility] metabolic 2000 panelon 01-18-2025 Albumin [Mass/Vol] 3.8 g/dL Low 3.9-4.9 [facility] Comment on above: Order Comment: Speci men Type: BLOOD SPECIMEN Ordering Facility: [facility] Address: [address] [place] [address] Performed By: #### H STNT #### [facility] CLIA [id number] [address] ALP [Catalytic activity/Vol] 57 U/L Normal 34-123 [facility] Comment on above: Order Comment: Speci men Type: BLOOD SPECIMEN Ordering Facility: [facility] Address: [address] [place] [address] Performed By: #### H STNT #### [facility] CLIA [id number] [address] OF [facility] ALT With P-5'-P [Catalytic activity/Vol] 11 U/L Normal 7-38 [facility] Comment on above: Order Comment: Speci men Type: BLOOD SPECIMEN Ordering Facility: [facility] Address: [address] [place] [address] Performed By: #### H STNT #### [facility] CLIA [id number] [address] OF [facility] Anion gap [Moles/Vol] 12 mmol/L Normal 8-15 [facility] Comment on above: Order Comment: Speci men Type: BLOOD SPECIMEN Ordering Facility: [facility] Address: [address] [place] [address] Performed By: #### H STNT #### [facility] CLIA [id number] [address] [place] AST With P-5'-P [Catalytic activity/Vol] 16 U/L Normal 13-35 [facility] Comment on above: Order Comment: Speci men Type: BLOOD SPECIMEN Ordering Facility: [facility] Address: [address] [place] [address] Performed By: #### H STNT #### [facility] CLIA [id number] [address] [place] Bilirubin [Mass/Vol] 0.3 mg/dL Normal 0.2-1.3 [facility] Comment on above: Order Comment: Speci men Type: BLOOD SPECIMEN Ordering Facility: [facility] Address: [address] [place] [address] Performed By: #### H STNT #### [facility] CLIA [id number] 1 [place] [address] [place] Calcium [Mass/Vol] 8.6 mg/dL Normal 8.5-10.2 [facility] Comment on above: Order Comment: Speci men Type: BLOOD SPECIMEN Ordering Facility: [facility] Address: [address] [place] [address] Performed By: #### H STNT #### [facility] CLIA [id number] 1 [place] [address] [place] Chloride [Moles/Vol] 103 mmol/L Normal 98-107 [facility] Comment on above: Order Comment: Speci men Type: BLOOD SPECIMEN Ordering Facility: [facility] Address: [address] [place] [address] Performed By: #### H STNT #### [facility] CLIA [id number] 1 [place] [address] [place] CO2 [Moles/Vol] 22 mmol/L Normal 22-30 [facility] Comment on above: Order Comment: Speci men Type: BLOOD SPECIMEN Ordering Facility: [facility] Address: [address] [place] [address] Performed By: #### H STNT #### [facility] CLIA [id number] [address] STATES OF [facility] Creatinine [Mass/Vol] 0.50 mg/dL Low 0.58-0.96 [facility] Comment on above: Order Comment: Speci men Type: BLOOD SPECIMEN Ordering Facility: [facility] Address: [address] [place] [address] Performed By: #### H STNT #### [facility] CLIA [id number] [address] eGFRcr SerPlBld CKD-EPI 2020 138 mL/min/1.73m??? Normal >=60 [facility] Comment on above: Order Comment: Destini men Type: BLOOD SPECIMEN Ordering Facility: [facility] Address: [address] [place] [address] Result Comment: Shilpa mated Glomerular Filtration Rate [...] GFR. Performed By: #### H STNT #### [facility] CLIA [id number] [address] [place] [address] Glucose [Mass/Vol] 63 mg/dL Low 74-99 [facility] Comment on above: Order Comment: Shannani maurilio Type: BLOOD SPECIMEN Ordering Facility: [facility] Address: [address] [place] [address] Result Comment: The [place] Diabetes Association (ADA) provides guidance for cutoff [...] Standards of Medical Care in Diabetes 2016, [place] [employer]. Diabetes Care. 2016.39(Suppl 1). Performed By: #### H STNT #### [facility] CLIA [id number] [address] Potassium [Moles/Vol] 3.8 mmol/L Normal 3.7-5.1 [facility] Comment on above: Order Comment: Speci men Type: BLOOD SPECIMEN Ordering Facility: [facility] Address: [address] [place] [address] Performed By: #### H STNT #### [facility] CLIA [id number] [address] [place] Protein [Mass/Vol] 6.5 g/dL Normal 6.3-8.0 [facility] Comment on above: Order Comment: Speci men Type: BLOOD SPECIMEN Ordering Facility: [facility] Address: [address] [place] [address] Performed By: #### H STNT #### [facility] CLIA [id number] [address] Sodium [Moles/Vol] 137 mmol/L Normal 136-144 [facility] Comment on above: Order Comment: Speci men Type: BLOOD SPECIMEN Ordering Facility: [facility] Address: [address] [place] [address] Performed By: #### H STNT #### [facility] CLIA [id number] [address] [place] Urea nitrogen [Mass/Vol] 4 mg/dL Low 7-21 [facility] Comment on above: Order Comment: Speci men Type: BLOOD SPECIMEN Ordering Facility: [facility] Address: [address] [place] [address] Performed By: #### H STNT #### [id number] [address] OF [facility] Landen 01-14-2025 CNPN Telephone (OBGYWM) PAL NICHOLAS ([id number]) 3 F Date Time Provider Department 01/14/25 [...] Status:Closed by RAMAKRISHNA CORLEY on 01/14/25 Normal [facility] Examination level ultrasound on 01-12-2025 Indication [...] 12 oz EFW by: Hadlock (HC-AC-FL) [employer] Supervisor 6.6 mm CM 6.6 mm 90% Nicolaides [...] normal LVOT view: normal 3-vessel view: normal 8-[id number]-iotrpwb view: normal Heart / Thorax Situs: situs [...] Read By: Tiffanie Barrios M.D. MATERNAL MEDICINE [facility] TSH W/REFLEX FT4on 5 TSH Qn 1.510 m[IU]/L Normal 0.510-4.300 [facility] Comment on above: Order Comment: Speci men Type: BLOOD SPECIMENOrdering Facility: [facility] Address: [address] [facility] [place] [address] Result Comment: If t he patient is , TSH reference range varies by gestational period: First Trimester (weeks 9-12): 0.180-2.990 mIU/L Second Trimester: 0.110-3.980 mIU/L Third Trimester: 0.480-4.710 mIU/L Garry Rizvi et al. A Practical Approach for the Verifications and Determination of Site- and Trimester-Specific Reference Intervals for Thyroid Function tests in . Thyroid, 2019:29:3:412-420. Keagan E, et al. 2017 Guidelines of the [place] Thyroid Association for the Diagnosis and Management of Thyroid Disease during and the . Thyroid, 2017:27:3:315-389. Performed By: #### T SHRF ####[facility] [id number] [place] [address] [place] BACTERIAL VAGINOSIS NAATon 0 01-11-2025 Lactobacillus crispatus+gasseri+muniz ii + Gardnerella vaginalis + Atopobium vaginae rRNA JOHN+probe Ql (Vag fld) Not detected Normal Not detected [facility] Comment on above: Order Comment: Speci men Type: SWABOrdering Facility: [facility] Address: [address] [place] [address] Performed By: #### C VTV, BVAMP ####[facility] [id number] [place] [address] [place] Bacteria Ur Culton Bacteria identified Cx Nom (U) ORGANISM ID: 1 <10,000 CFU/ml Enterococcus faecalis Insignificant colony count. No further workup. Cephalosporins, clindamycin, and TMP-SMX are not effective for the treatment of enterococcal infections. Normal [facility] Comment on above: Performed By: #### 6 30-4 #### [facility] CLIA [id number] [address] [place] [address] [place] PARVEEN/TRICHOMONAS NAATon 0 01-11-2025 C. glabrata RNA JOHN+probe Ql (Vag fld) Not detected Normal Not detected [facility] Comment on above: Order Comment: Speci men Type: SWABOrdering Facility: [facility] Address: [address] [place] [address] Performed By: #### C VTV, BVAMP ####[facility] [id number] [address] [place] Parveen sp DNA JOHN+probe Ql (Vag fld) Not detected Normal Not detected [facility] Comment on above: Order Comment: Speci men Type: SWABOrdering Facility: [facility] Address: [address] [place] [address] Result Comment: The Parveen species group target includes C. albicans, C. tropicalis, C. parapsilosis, and C. dubliniensis. Performed By: #### C VTV, BVAMP ####[facility] [id number] [address] [place] T. vaginalis DNA JOHN+probe Ql (Unsp spec) Not detected Normal Not detected [facility] Comment on above: Order Comment: Speci men Type: SWABOrdering Facility: [facility] Address: [address] [place] [address] Performed By: #### C VTV, BVAMP ####[facility] [id number] [address] [place] Examination level ultrasound on 01-11-2025 Radiology Study observation (narrative) [facility] UA DIP, URINE (POC)on 2024 BILIRUBIN UA (POCT) Negative Negative [facility] CLARITY UA (POCT) Clear [facility] COLOR UA (POCT) Yellow [facility] GLUCOSE UA (POCT) Negative Negative mg/dL [facility] Hemoglobin Ql (U) Negative Negative [facility] Interpretation and review of laboratory results Abnormal [facility] KETONE UA (POCT) Negative Negative mg/dL [facility] LEUKOCYTES UA (POCT) Trace Abnormal Negative [facility] NITRITE UA (POCT) Negative Negative [facility] PH UA (POCT) 6.0 4.5 - 8.0 [facility] Protein Ql (U) Negative Negative mg/dL [facility] SPECIFIC GRAVITY UA (POCT) 1.020 1.005 - 1.030 [facility] UROBILINOGEN UA (POCT) 0.2 Normal E.U./d L [facility] Location:[facility], [address] , [place], [address] [facility] POINT OF CARE [facility] CNPMissy 01-07-2025 NELDAN Telephone (AKPRAD) PAL NICHOLAS ([id number]) 3 F Date Time Provider Department 01/07/25 EJ RODRIGUEZ During your visit today, we recorded the following information about you: Ej Rodriguez MD 01/07/2025 12:41 PM Signed Patient was seen by resident but 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 and delivery she is [...] EJ RODRIGUEZ on 01/12/25 Normal [facility] Basic metabolic 2000 panelon 01-06-2025 Anion gap [Moles/Vol] 12 mmol/L Normal 8-15 [facility] Comment on above: Order Comment: Speci men Type: BLOOD SPECIMEN Ordering Facility: [facility] Address: [address] [place] [address] Performed By: #### H STNT, 62072-2 #### [facility] CLIA [id number] 1 [place] [address] [place] Calcium [Mass/Vol] 8.6 mg/dL Normal 8.5-10.2 [facility] Comment on above: Order Comment: Speci men Type: BLOOD SPECIMEN Ordering Facility: [facility] Address: [address] [place] [address] Performed By: #### H STNT, 34839-9 #### [facility] CLIA [id number] 1 [place] [address] [place] Chloride [Moles/Vol] 104 mmol/L Normal 98-107 [facility] Comment on above: Order Comment: Speci men Type: BLOOD SPECIMEN Ordering Facility: [facility] Address: [address] [place] [address] Performed By: #### H STNT, 27692-1 #### [facility] CLIA [id number] [address] [place] CO2 [Moles/Vol] 20 mmol/L Low 22-30 [facility] Comment on above: Order Comment: Speci men Type: BLOOD SPECIMEN Ordering Facility: [facility] Address: [address] [place] [address] Performed By: #### H STNT, 92379-1 #### [facility] CLIA [id number] [address] [place] Creatinine [Mass/Vol] 0.47 mg/dL Low 0.58-0.96 [facility] Comment on above: Order Comment: Speci men Type: BLOOD SPECIMEN Ordering Facility: [facility] Address: [address] [place] [address] Performed By: #### H STNT, 13829-2 #### [facility] CLIA [id number] [address] eGFRcr SerPlBld CKD-EPI 2020 140 mL/min/1.73m??? Normal >=60 [facility] Comment on above: Order Comment: Speci men Type: BLOOD SPECIMEN Ordering Facility: [facility] Address: [address] [place] [address] Result Comment: Shilpa mated Glomerular Filtration Rate [...] actual GFR. Performed By: #### H STNT, 67078-1 #### [facility] CLIA [id number] [address] OF [facility] Glucose [Mass/Vol] 78 mg/dL Normal 74-99 [facility] Comment on above: Order Comment: Speci men Type: BLOOD SPECIMEN Ordering Facility: [facility] Address: [address] [place] [address] Result Comment: The [place] Diabetes Association (ADA) provides guidance for cutoff [...] Standards of Medical Care in Diabetes 2016, [place] Diabetes Association. Diabetes Care. 2016.39(Suppl 1). Performed By: #### H STNT, 08004-1 #### [facility] CLIA [id number] 1 [place] [address] [place] Potassium [Moles/Vol] 3.7 mmol/L Normal 3.7-5.1 [facility] Comment on above: Order Comment: Speci men Type: BLOOD SPECIMEN Ordering Facility: [facility] Address: [address] [place] [address] Performed By: #### H STNT, 68334-5 #### [facility] CLIA [id number] [address] [place] [address] [place] Sodium [Moles/Vol] 136 mmol/L Normal 136-144 [facility] Comment on above: Order Comment: Speci men Type: BLOOD SPECIMEN Ordering Facility: [facility] Address: [address] [place] [address] Performed By: #### H STNT, 42821-4 #### [facility] CLIA [id number] [address] [place] [address] [place] Urea nitrogen [Mass/Vol] 8 mg/dL Normal 7-21 [facility] Comment on above: Order Comment: Speci men Type: BLOOD SPECIMEN Ordering Facility: [facility] Address: [address] [place] [address] Performed By: #### H STNT, 48014-6 #### [facility] CLIA [id number] [address] C. trachomatis+N. gonorrhoea e DNA JOHN+probe Ql (Unsp spec)on 01-06-2025 C. trachomatis rRNA JOHN+probe Ql (Unsp spec) Not detected Normal Not detected [facility] Comment on above: Order Comment: Speci men Type: SWAB Ordering Facility: [facility] Address: [address] [place] [address] Performed By: #### T RVAMP, 09963-7 #### [facility] CLIA [id number] [address] N. gonorrhoeae rRNA JOHN+probe Ql (Unsp spec) Not detected Normal Not detected [facility] Comment on above: Order Comment: Speci men Type: SWAB Ordering Facility: [facility] Address: [address] [place] [address] Performed By: #### T RVAMP, 70321-9 #### [facility] CLIA [id number] [address] CBC panel Auto (Bld)on 01-06 Erythrocyte distribution width (RBC) [Ratio] 13.7 % Normal 11.5-15.0 [facility] Comment on above: Order Comment: Speci men Type: BLOOD SPECIMEN Ordering Facility: [facility] Address: [address] [place] [address] Performed By: #### H STNT, 82160-0 #### [facility] CLIA [id number] [address] Hematocrit (Bld) [Volume fraction] 36.1 % Normal 36.0-46.0 [facility] Comment on above: Order Comment: Speci men Type: BLOOD SPECIMEN Ordering Facility: [facility] Address: [address] [place] [address] Performed By: #### H STNT, 72605-8 #### [facility] CLIA [id number] [address] Hemoglobin (Bld) [Mass/Vol] 12.3 g/dL Normal 11.5-15.5 [facility] Comment on above: Order Comment: Speci men Type: BLOOD SPECIMEN Ordering Facility: [facility] Address: [address] [place] [address] Performed By: #### H STNT, 45696-5 #### [facility] CLIA [id number] [address] MCH (RBC) [Entitic mass] 30.8 pg Normal 26.0-34.0 [facility] Comment on above: Order Comment: Speci men Type: BLOOD SPECIMEN Ordering Facility: [facility] Address: [address] [place] [address] Performed By: #### H STNT, 50508-5 #### [facility] CLIA [id number] [address] MCHC (RBC) [Mass/Vol] 34.1 g/dL Normal 30.5-36.0 [facility] Comment on above: Order Comment: Speci men Type: BLOOD SPECIMEN Ordering Facility: [facility] Address: [address] [place] [address] Performed By: #### H STNT, 29405-2 #### [facility] CLIA [id number] [address] MCV (RBC) [Entitic vol] 90.3 fL Normal 80.0-100.0 [facility] Comment on above: Order Comment: Speci men Type: BLOOD SPECIMEN Ordering Facility: [facility] Address: [address] [place] [address] Performed By: #### H STNT, 86435-3 #### [facility] CLIA [id number] [address] Nucleated RBC (Bld) [#/Vol] 10*3/uL Normal <0.01 [facility] Comment on above: Order Comment: Speci men Type: BLOOD SPECIMEN Ordering Facility: [facility] Address: [address] [place] [address] Performed By: #### H STNT, 34555-2 #### [facility] CLIA [id number] [address] [place] Platelet mean volume (Bld) [Entitic vol] 9.3 fL Normal 9.0-12.7 [facility] Comment on above: Order Comment: Speci men Type: BLOOD SPECIMEN Ordering Facility: [facility] Address: [address] [place] [address] Performed By: #### H STNT, 38273-6 #### [facility] CLIA [id number] [address] OF [place] Platelets (Bld) [#/Vol] 248 10*3/uL Normal 150-400 [facility] Comment on above: Order Comment: Speci men Type: BLOOD SPECIMEN Ordering Facility: [facility] Address: [address] [place] [address] Performed By: #### H STNT, 36714-8 #### [facility] CLIA [id number] [address] RBC (Bld) [#/Vol] 4.00 10*6/uL Normal 3.90-5.20 [facility] Comment on above: Order Comment: Speci men Type: BLOOD SPECIMEN Ordering Facility: [facility] Address: [address] [place] [address] Performed By: #### H STNT, 38207-3 #### [facility] CLIA [id number] [address] [place] WBC (Bld) [#/Vol] 10.26 10*3/uL Normal 3.70-11.00 [facility] Comment on above: Order Comment: Speci men Type: BLOOD SPECIMEN Ordering Facility: [facility] Address: [address] [place] [address] Performed By: #### H STNT, 12418-6 #### [facility] CLIA [id number] [address] OF [facility] Landen 01-06-2025 NELDAN Telephone (OBGYW) PAL NICHOLAS ([id number]) 3 F Date Time Provider Department 01/06/25 [...] 01/05 telephone notes. Patient was seen at [facility] OB ED triage on 01/04. The diarrhea has resolved. Advised that she go back to [facility] as the office is closing. Patient asked for an appointment tomorrow instead because of transportation. No available appointments. Advised that she should be evaluated today in case she is having labor. Voiced understanding and believes she could have a friend take her. LEVON Driver Rebecca L, MD 01/07/2025 10:00 AM Signed If not improved work in any cancellations, go to [facility] for eval or schedule tomorrow if openings. MD Honey Begum Lindsey, RN 01/07/2025 10:36 AM Signed Patient was seen at [facility] last night. She has OB and [...] Encounter Status:Closed by KARINA ADDISON on 01/07/25 [facility] CONSULTon 01-06-2025 CONSULT HNO ID: [id number] Author: EJ RODRIGUEZ MD Service: Nephrology Author [...] not on any medications. She moved from [place] and previously was on beta-luana however stopped [...] (more content not included)... Normal [facility] ECG COMPLETEon 01-06-2025 ECG COMPLETE Ventricular Rate : 79 BPM Atrial Rate : 79 BPM P-R Interval : 120 ms QRS Duration : 76 ms Q-T Interval : 350 ms QTC Calculation(Bazett) : 401 ms Calculated P [place] : -18 degrees Calculated R [place] : 148 degrees Calculated T [place] : -28 degrees NORMAL SINUS RHYTHM RIGHT AXIS DEVIATION LOW VOLTAGE QRS CANNOT RULE OUT INFERIOR INFARCT , AGE UNDETERMINED T WAVE ABNORMALITY, CONSIDER ANTERIOR ISCHEMIA ABNORMAL ECG WHEN COMPARED WITH ECG OF 05-Jan-2025 00:20, QRS AXIS SHIFTED RIGHT Confirmed by MD NAPIER VINAY ([id number]) on 01/07/2025 11:39:00 AM NAME : PAL NICHOLAS PID : [id number] : 2005 Gender : Female Race : ORD : [id number] Procedure Date : Jan 06 2025 20:38:59 Edit Date : Jan 07 2025 11:39:11 Diagnosis: NORMAL SINUS RHYTHM RIGHT AXIS DEVIATION LOW VOLTAGE QRS CANNOT RULE OUT INFERIOR INFARCT , AGE UNDETERMINED T WAVE ABNORMALITY, CONSIDER ANTERIOR ISCHEMIA ABNORMAL ECG WHEN COMPARED WITH ECG OF 05-Jan-2025 00:20, QRS AXIS SHIFTED RIGHT Confirmed by MD NAPIER VINAY ([id number]) on 01/07/2025 11:39:00 AM Test Reason : Chest Pain Location : 200 : [facility] Overread By : MD NAPIER VINAY Edited By : MD NAPIER VINAY Referred By : , Acquired by : ZUNILDA FULLER Normal [facility] HIGH SENSITIVITY TROPONIN To n 01-06-2025 Troponin T.cardiac High sensitivity method [Mass/Vol] <6 Normal <12 [facility] Comment on above: Order Comment: Speci men Type: BLOOD SPECIMEN Ordering Facility: [facility] Address: [address] [place] [address] Performed By: #### H STNT #### [facility] CLIA [id number] [address] [place] Troponin T.cardiac High sensitivity method [Mass/Vol] <6 Normal <12 [facility] Comment on above: Order Comment: Speci men Type: BLOOD SPECIMEN Ordering Facility: [facility] Address: [address] [place] [address] Performed By: #### H STNT, 43057-3 #### [facility] CLIA [id number] [address] [place] [address] STATES OF [facility] TRICHOMONAS VAGINALIS NAATon 01-06-2025 T. vaginalis DNA JOHN+probe Ql (Unsp spec) Not detected Normal Not detected [facility] Comment on above: Order Comment: Speci men Type: SWAB Ordering Facility: [facility] Address: [address] [place] [address] Performed By: #### T RVAMP, 58999-0 #### [facility] CLIA [id number] [address] [place] CBC panel Auto (Bld)on 01-05 Erythrocyte distribution width (RBC) [Ratio] 14.0 % Normal 11.5-15.0 [facility] Comment on above: Order Comment: Speci men Type: BLOOD SPECIMEN Ordering Facility: [facility] Address: [address] [place] [address] Performed By: #### 5 8410-2 #### [facility] CLIA [id number] [address] [place] Hematocrit (Bld) [Volume fraction] 33.6 % Low 36.0-46.0 [facility] Comment on above: Order Comment: Speci men Type: BLOOD SPECIMEN Ordering Facility: [facility] Address: [address] [place] [address] Performed By: #### 5 8410-2 #### [facility] CLIA [id number] [address] OF [facility] Hemoglobin (Bld) [Mass/Vol] 11.4 g/dL Low 11.5-15.5 [facility] Comment on above: Order Comment: Speci men Type: BLOOD SPECIMEN Ordering Facility: [facility] Address: [address] [place] [address] Performed By: #### 5 8410-2 #### [facility] CLIA [id number] [address] MCH (RBC) [Entitic mass] 30.6 pg Normal 26.0-34.0 [facility] Comment on above: Order Comment: Speci men Type: BLOOD SPECIMEN Ordering Facility: [facility] Address: [address] [place] [address] Performed By: #### 5 8410-2 #### [facility] CLIA [id number] [address] MCHC (RBC) [Mass/Vol] 33.9 g/dL Normal 30.5-36.0 [facility] Comment on above: Order Comment: Speci men Type: BLOOD SPECIMEN Ordering Facility: [facility] Address: [address] [place] [address] Performed By: #### 5 8410-2 #### [facility] CLIA [id number] [address] OF [place] MCV (RBC) [Entitic vol] 90.1 fL Normal 80.0-100.0 [facility] Comment on above: Order Comment: Speci men Type: BLOOD SPECIMEN Ordering Facility: [facility] Address: [address] [place] [address] Performed By: #### 5 8410-2 #### [facility] CLIA [id number] [address] OF [place] Nucleated RBC (Bld) [#/Vol] 10*3/uL Normal <0.01 [facility] Comment on above: Order Comment: Speci men Type: BLOOD SPECIMEN Ordering Facility: [facility] Address: [address] [place] [address] Performed By: #### 5 8410-2 #### [facility] CLIA [id number] [address] OF [place] Platelet mean volume (Bld) [Entitic vol] 9.3 fL Normal 9.0-12.7 [facility] Comment on above: Order Comment: Speci men Type: BLOOD SPECIMEN Ordering Facility: [facility] Address: [address] [place] [address] Performed By: #### 5 8410-2 #### [facility] CLIA [id number] [address] [place] Platelets (Bld) [#/Vol] 223 10*3/uL Normal 150-400 [facility] Comment on above: Order Comment: Speci men Type: BLOOD SPECIMEN Ordering Facility: [facility] Address: [address] [place] [address] Performed By: #### 5 8410-2 #### [facility] CLIA [id number] [address] OF [place] RBC (Bld) [#/Vol] 3.73 10*6/uL Low 3.90-5.20 [facility] Comment on above: Order Comment: Speci men Type: BLOOD SPECIMEN Ordering Facility: [facility] Address: [address] [place] [address] Performed By: #### 5 8410-2 #### [facility] CLIA [id number] [address] OF [place] WBC (Bld) [#/Vol] 10.50 10*3/uL Normal 3.70-11.00 [facility] Comment on above: Order Comment: Speci men Type: BLOOD SPECIMEN Ordering Facility: [facility] Address: [address] [place] [address] Performed By: #### 5 8410-2 #### [facility] [id number] [address] [place] [id number] [facility] Landen 01-05-2025 CNPN Telephone (AKPOB) PAL NICHOLAS ([id number]) 3 F Date Time Provider Department 01/05/25 [...] Encounter Status:Closed by JAYLA KELLER on 01/05/25 [facility] RUBÉN Telephone (VIDHYAWM) PAL NICHOLAS ([id number]) 3 F Date Time Provider Department 01/05/25 LESTER PHILLIPS During your visit today, we recorded the following information about you: Magda Hagen RN 01/05/2025 11:40 AM Signed 19w1d See 01/04 phone note. Patient went to [facility] OB ED last night. [facility] notes available to review. Patient was prescribed [...] feel completely confident in the diagnosis from [facility]. Please advise. LEVON Gardner Karmon, MD 01/05/2025 12:09 PM Signed Patient was seen by Mitesh Kulkarni while at [facility]. I recommend supportive care with hydration, [...] Status:Closed by JOCELYNE BLACK on 01/05/25 Normal [facility] Comprehensive metabolic 2000 panelon 01-05-2025 Albumin [Mass/Vol] 3.5 g/dL Low 3.9-4.9 [facility] Comment on above: Order Comment: Speci men Type: BLOOD SPECIMEN Ordering Facility: [facility] Address: [address] [place] [address] Performed By: #### 2 4323-8 #### [facility] CLIA [id number] [address] OF [facility] ALP [Catalytic activity/Vol] 46 U/L Normal 34-123 [facility] Comment on above: Order Comment: Speci men Type: BLOOD SPECIMEN Ordering Facility: [facility] Address: [address] [place] [address] Performed By: #### 2 4323-8 #### [facility] CLIA [id number] [address] STATES OF [facility] ALT With P-5'-P [Catalytic activity/Vol] 13 U/L Normal 7-38 [facility] Comment on above: Order Comment: Speci men Type: BLOOD SPECIMEN Ordering Facility: [facility] Address: [address] [place] [address] Performed By: #### 2 4323-8 #### [facility] CLIA [id number] [address] [place] Anion gap [Moles/Vol] 12 mmol/L Normal 8-15 [facility] Comment on above: Order Comment: Speci men Type: BLOOD SPECIMEN Ordering Facility: [facility] Address: [address] [place] [address] Performed By: #### 2 4323-8 #### [facility] CLIA [id number] [address] OF [facility] AST With P-5'-P [Catalytic activity/Vol] 16 U/L Normal 13-35 [facility] Comment on above: Order Comment: Speci men Type: BLOOD SPECIMEN Ordering Facility: [facility] Address: [address] [place] [address] Performed By: #### 2 4323-8 #### [facility] CLIA [id number] [address] [place] Bilirubin [Mass/Vol] 0.3 mg/dL Normal 0.2-1.3 [facility] Comment on above: Order Comment: Speci men Type: BLOOD SPECIMEN Ordering Facility: [facility] Address: [address] [place] [address] Performed By: #### 2 4323-8 #### [facility] CLIA [id number] [address] [place] Calcium [Mass/Vol] 9.1 mg/dL Normal 8.5-10.2 [facility] Comment on above: Order Comment: Speci men Type: BLOOD SPECIMEN Ordering Facility: [facility] Address: [address] [place] [address] Performed By: #### 2 4323-8 #### [facility] CLIA [id number] [address] [place] Chloride [Moles/Vol] 106 mmol/L Normal 98-107 [facility] Comment on above: Order Comment: Speci men Type: BLOOD SPECIMEN Ordering Facility: [facility] Address: [address] [place] [address] Performed By: #### 2 4323-8 #### [facility] CLIA [id number] [address] [place] CO2 [Moles/Vol] 21 mmol/L Low 22-30 [facility] Comment on above: Order Comment: Speci men Type: BLOOD SPECIMEN Ordering Facility: [facility] Address: [address] [place] [address] Performed By: #### 2 4323-8 #### [facility] CLIA [id number] [address] [place] [address] [place] Creatinine [Mass/Vol] 0.51 mg/dL Low 0.58-0.96 [facility] Comment on above: Order Comment: Speci men Type: BLOOD SPECIMEN Ordering Facility: [facility] Address: [address] [place] [address] Performed By: #### 2 4323-8 #### [facility] CLIA [id number] [address] [place] [address] [place] eGFRcr SerPlBld CKD-EPI 2020 137 mL/min/1.73m??? Normal >=60 [facility] Comment on above: Order Comment: Speci men Type: BLOOD SPECIMEN Ordering Facility: [facility] Address: [address] [place] [address] Result Comment: Shilpa mated Glomerular Filtration Rate [...] GFR. Performed By: #### 2 4323-8 #### [facility] CLIA [id number] 1 [place] [address] [place] Glucose [Mass/Vol] 93 mg/dL Normal 74-99 [facility] Comment on above: Order Comment: Destini thorpe Type: BLOOD SPECIMEN Ordering Facility: [facility] Address: [address] [place] [id number] Result Comment: The [place] Diabetes Association (ADA) provides guidance for cutoff [...] Standards of Medical Care in Diabetes 2016, [place] Diabetes Association. Diabetes Care. 2016.39(Suppl 1). Performed By: #### 2 4323-8 #### [facility] CLIA [id number] 1 [place] [address] [place] Potassium [Moles/Vol] 3.4 mmol/L Low 3.7-5.1 [facility] Comment on above: Order Comment: Destini thorpe Type: BLOOD SPECIMEN Ordering Facility: [facility] Address: [address] [place] [address] Performed By: #### 2 4323-8 #### [facility] CLIA [id number] 1 [place] [address] [place] Protein [Mass/Vol] 5.8 g/dL Low 6.3-8.0 [facility] Comment on above: Order Comment: Destini thorpe Type: BLOOD SPECIMEN Ordering Facility: [facility] Address: [address] [place] [id number] Performed By: #### 2 4323-8 #### [facility] CLIA [id number] 1 [place] [address] [place] Sodium [Moles/Vol] 139 mmol/L Normal 136-144 [facility] Comment on above: Order Comment: Shannani men Type: BLOOD SPECIMEN Ordering Facility: [facility] Address: [address] [place] [address] Performed By: #### 2 4323-8 #### [facility] CLIA [id number] [address] Urea nitrogen [Mass/Vol] 5 mg/dL Low 7- [facility] Comment on above: Order Comment: Speci men Type: BLOOD SPECIMEN Ordering Facility: [facility] Address: [address] [id number] Performed By: #### 2 4323-8 #### [facility] CLIA [id number] [address] [place] ECG COMPLETEon 01-05-2025 ECG COMPLETE Ventricular Rate : 97 BPM Atrial Rate : 97 BPM P-R Interval : 128 ms QRS Duration : 78 ms Q-T Interval : 344 ms QTC Calculation(Bazett) : 436 ms Calculated P [place] : 21 degrees Calculated R [place] : 23 degrees Calculated T [place] : -1 degrees NORMAL SINUS RHYTHM LOW VOLTAGE QRS BORDERLINE ECG NO PREVIOUS ECGS AVAILABLE Confirmed by MD NAPIER VINAY ([id number]) on 01/05/2025 12:13:29 PM NAME : PAL NICHOLAS PID : [id number] : 2005 Gender : Female Race : ORD : [id number] Procedure Date : Jan 05 2025 00:20:24 Edit Date : Jan 05 2025 12:13:36 Diagnosis: NORMAL SINUS RHYTHM LOW VOLTAGE QRS BORDERLINE ECG NO PREVIOUS ECGS AVAILABLE Confirmed by MD NAPIER VINAY ([id number]) on 01/05/2025 12:13:29 PM Test Reason : Dizziness Location : 200 : [place] [address] Overread By : MD NAPIER VINAY Edited By : MD NAPIER VINAY Referred By : , Acquired by : BEN GALVAN [facility] [place] 01-04-2025 NELDAN Telephone (OBGYWM) PAL NICHOLAS ([id number]) 3 F Date Time Provider Department 01/04/25 [...] this is staying the same since at [facility] 12/22/24. Last few weeks, Pt states extremely watery discharge. Went to [facility] at that time d/t having sharp cervical pain AND was treated for BV. Feels hydrated/Has been drinking liquid IV. Does have some burning on urination AND was seen on 12/30/24 in office-UA completed and TRACE protein and TRACE leukocytes. Advised Pt that since pain has worsened as the day as gone on that it would be best to go to [facility] OB triage to be evaluated as no appts available in office at this time. Pt did state she'd feel more comfortable going there and that is essentially why she called as she wanted to discuss with a nurse. Pt states her ride will not be able to pick her up for another 30 minutes, but Pt is agreeable to go to [facility]. Dr. Aragon notified. Maite Peterson RN Allergies [...] Encounter Status:Closed by MAITE PETERSON on 01/21/25 [facility] [place] [facility]-29-20[facility] ([id number]) 3 F Date Time Provider Department 12/29/24 [...] Status:Closed by KARINA ADDISON on 12/29/24 Normal [facility] BACTERIAL VAGINOSIS NAATon 0 12-28-2024 Lactobacillus crispatus+gasseri+muniz ii + Gardnerella vaginalis + Atopobium vaginae rRNA JOHN+probe Ql (Vag fld) Not detected Normal Not detected [facility] Comment on above: Order Comment: Speci men Type: SWABOrdering Facility: [facility] Address: [address] [place] [address] Performed By: #### 6 30-4 #### [facility] CLIA [id number] [address] [place] [address] [place] PARVEEN/TRICHOMONAS NAATon 0 12-28-2024 C. glabrata RNA JOHN+probe Ql (Vag fld) Not detected Normal Not detected [facility] Comment on above: Order Comment: Speci men Type: SWABOrdering Facility: [facility] Address: [address] [place] [address] Performed By: #### 6 30-4 #### [facility] CLIA [id number] [address] [place] [address] OF [place] Pareven sp DNA JOHN+probe Ql (Vag fld) Not detected Normal Not detected [facility] Comment on above: Order Comment: Speci men Type: SWABOrdering Facility: [facility] Address: [address] [place] [address] Result Comment: The Parveen species group target includes C. albicans, C. tropicalis, C. parapsilosis, and C. dubliniensis. Performed By: #### 6 30-4 #### [facility] CLIA [id number] [address] [place] [address] OF [place] T. vaginalis DNA JOHN+probe Ql (Unsp spec) Not detected Normal Not detected [facility] Comment on above: Order Comment: Speci men Type: SWABOrdering Facility: [facility] Address: [address] [place] [address] Performed By: #### 6 30-4 #### [facility] CLIA [id number] [address] [place] [address] [place] 12-25-2024 RUBÉN Telephone (OBGYWM) PAL NICHOLAS ([id number]) 3 F Date Time Provider Department 12/25/24 PRASHANTJUMA LYNNETTELEONARD PLATT During your visit today, we recorded the following information about you: Isaura Pereira RN 12/25/2024 12:14 PM Signed Records received from [facility] in [place]. In chart prep binder for NOB appt on 12/28 with CP. Isaura Pereira RN Allergies As of Date: 12/25/2024 (No Known Allergies) Date Reviewed: 12/22/2024 Reviewed by: Tressa Winters DO - Fully Assessed Reason for Visit: Received Outside Medical Records [9250] Prescriptions as of 12/25/2024 - cyclobenzaprine (FLEXERIL) [...] Status:Closed by ISAURA PEREIRA on 12/25/24 Normal [facility] Urine Cultureon 12-24-2024 [facility] Mixed Gram Positive Organisms [place] Count 11,000-25,000 [facility] Mixed contaminants. Submit a new specimen if indicated. Normal [facility] Comment on above: Performed By: #### L 500.4050 #### [facility] [place], [address] [facility] 12-22-20[facility]OBNowSpots[facility] PAL NICHOLAS ([id number]) 3 F Date Time Provider Department 12/22/24 KARINA ADDISON During your visit today, we recorded the following information about you: Magda Hagen RN 12/22/2024 12:30 PM Signed [facility] seen at [facility] ER yesterday for pelvic pain. LMP 08/24/24. Approximately 17w1d. Patient calling because she still continues to have pelvic pain and pressure. Pain rate of 5-6. Taking Tylenol and using heat with no relief. States when she went to the ER her pain was 8-9. Denies LOF or VB. Per [facility] ER report: Discussed the case with on-call INSPECTOR PAWNS[employer]OP DETAIL for [facility] Dr. Aragon who states that she [...] of medical records from her previous OB. [facility] ER report to RR to review. LEVON Gardner Rebecca L, MD 12/22/2024 3:41 PM Signed Agree w/ keep scheduled appointment. Make sure we have US results/labs for NOB. If infection ruled out and no bleeding would recommend stretching, tylenol and warm baths prn. Can return to ED if urgent issue or go to [facility] at [facility] or see if there is a [...] Status:Closed by MAGDA HAGEN on 12/22/24 Normal [facility] Absolute lymphocyte countOrd ered By: Aftab Mendoza on 12-21-2024 Lymphocytes Auto (Unsp spec) [#/Vol] 1.91 10*3/uL 0.83-4.51 [facility] Absolute neutrophil countOrd ered By: Aftab Mendoza on 12-21-2024 Neutrophils (Bld) [#/Vol] 7.6 10*3/uL 2.0-7.7 [facility] Anion gap in Serum or Plasma Ordered By: Aftab Mendoza on 12-21-2024 Anion gap [Moles/Vol] 13 mmol/L 5-15 [facility] Automated lymphocyte count a s percentage of total leukocytesOrdered By: Aftab Mendoza on 12-21-2024 Lymphocytes/100 WBC Auto (Unsp spec) 18.4 % Low 19-41 [facility] BUN/creatinine ratioOrdered By: Aftab Mendoza on 12-21-2024 Urea nitrogen/Creatinine [Mass ratio] 13.0 mg/mg 10-20 [facility] Basophil percentageOrdered B y: Aftab Mendoza on 12-21-2024 Basophils/100 WBC (Bld) 0.4 % 0-1 [facility] Bilirubin Test strip Ql (U)O rdered By: Aftab Mendoza on 12-21-2024 Bilirubin Ql (U) Negative Negative [facility] Bilirubin, totalOrdered By: Aftab Mendoza on 12-21-2024 Bilirubin [Mass/Vol] 0.26 mg/dL 0.00-1.30 [facility] CBC W/Diff, Automatedon 11-25 Absolute Lymph 1.91 X10 3/uL Normal 0.83-4.51 [facility] Comment on above: Performed By: #### L 100.0100 #### [facility] [address] [place], [place], [id number] Absolute Neut 7.6 X10 3/uL Normal 2.0-7.7 [facility] Comment on above: Performed By: #### L 100.0100 #### [facility] [address] [place], [address] Basophils/100 WBC (Bld) 0.4 % Normal 0-1 [facility] Comment on above: Performed By: #### L 100.0100 #### [facility] [address] [place], [address] Eosinophils/100 WBC (Bld) 1.4 % Normal 0-5 [facility] Comment on above: Performed By: #### L 100.0100 #### [facility] [address] [place], [address] Erythrocyte distribution width (RBC) [Ratio] 14.0 % Normal 11.6-14.6 [facility] Comment on above: Performed By: #### L 100.0100 #### [facility] [address] [place], [address] Hematocrit (Bld) [Volume fraction] 36.3 % Low 37-47 [facility] Comment on above: Performed By: #### L 100.0100 #### [facility] [address] [place], [address] Hemoglobin (Bld) [Mass/Vol] 12.5 g/dL Normal 12.0-15.0 [facility] Comment on above: Performed By: #### L 100.0100 #### [facility] [address] [place], [address] IG% 0.700 Normal 0.0-0.9 [facility] Comment on above: Result Comment: IG% - Immature Granulocytes (promyelocytes, myelocytes and metamyelocytes) > 1% indicates that a LEFT SHIFT is Present. Performed By: #### L 100.0100 #### [facility] [address] [place], [address] Lymphocytes/100 WBC (Bld) 18.4 % Low 19-41 [facility] Comment on above: Performed By: #### L 100.0100 #### [facility] [address] [place], [address] MCH (RBC) [Entitic mass] 30.3 pg Normal 27.0-32.0 [facility] Comment on above: Performed By: #### L 100.0100 #### [facility] [address] [place], [address] MCHC (RBC) [Mass/Vol] 34.4 g/dL Normal 32-36 [facility] Comment on above: Performed By: #### L 100.0100 #### [facility] [address] [place], [address] MCV (RBC) [Entitic vol] 88.1 fL Normal 81-99 [facility] Comment on above: Performed By: #### L 100.0100 #### [facility] [address] [place], [address] Monocytes/100 WBC (Bld) 6.2 % Normal 0-10 [facility] Comment on above: Performed By: #### L 100.0100 #### [facility] [address] [place], [address] Neutrophils/100 WBC (Bld) 72.9 % High 47-70 [facility] Comment on above: Performed By: #### L 100.0100 #### [facility] [address] [place], [address] Nucleated RBC (Bld) [#/Vol] 0 10*3/uL Normal 0-5 [facility] Comment on above: Performed By: #### L 100.0100 #### [facility] [address] [place], [address] Platelet mean volume (Bld) [Entitic vol] 9.1 fL Normal 6.2-12.0 [facility] Comment on above: Performed By: #### L 100.0100 #### [facility] [address] [place], [address] Platelets (Bld) [#/Vol] 248 10*3/uL Normal 150-450 [facility] Comment on above: Performed By: #### L 100.0100 #### [facility] [address] [place], [address] RBC (Bld) [#/Vol] 4.12 10*6/uL Low 4.2-5.4 [facility] Comment on above: Performed By: #### L 100.0100 #### [facility] [address] [place], [address] RDW SD 44.6 fl High 35.1-43.9 [facility] Comment on above: Performed By: #### L 100.0100 #### [facility] [address] [place], [address] WBC (Bld) [#/Vol] 10.4 10*3/uL Normal 4.4-11.0 [facility] Comment on above: Performed By: #### L 100.0100 #### [facility] [address] [place], [address] Carbon dioxide, total [Moles /volume] in Central venous bloodOrdered By: Aftab Mendoza on 12-21-2024 CO2 [Moles/Vol] 20.6 mmol/L Low 21.0-32.0 [facility] Chloride assayOrdered By: Travis Mendoza on 12-21-2024 Chloride [Moles/Vol] 103 mmol/L 98-108 [facility] Comprehensive Metabolic Prof ilon 12-21-2024 Albumin [Mass/Vol] 3.8 g/dL Normal 3.5-5.0 [facility] Comment on above: Performed By: #### L 500.4050 #### [facility] [address] [place], [address] Albumin/Globulin [Mass ratio] 1.5 {ratio} Normal 0.9-2.4 [facility] Comment on above: Performed By: #### L 500.4050 #### [facility] [address] [place], [address] ALK PHOS 44 U/L Normal 35-104 [facility] Comment on above: Performed By: #### L 500.4050 #### [facility] [address] [place], [address] ALT [Catalytic activity/Vol] 10 U/L Normal <=34 [facility] Comment on above: Performed By: #### L 500.4050 #### [facility] [address] [place], [address] AST [Catalytic activity/Vol] 16 U/L Normal <=31 [facility] Comment on above: Performed By: #### L 500.4050 #### [facility] [address] [place], [address] Bilirubin [Mass/Vol] 0.26 mg/dL Normal 0.00-1.30 [facility] Comment on above: Performed By: #### L 500.4050 #### [facility] [address] [place], [address] BUN/CRE 13.0 RATIO Normal 10-20 [facility] Comment on above: Performed By: #### L 500.4050 #### [facility] [address] [place], [address] Calcium [Mass/Vol] 9.0 mg/dL Normal 7.6-11.0 [facility] Comment on above: Performed By: #### L 500.4050 #### [facility] [address] [place], [address] Chloride [Moles/Vol] 103 mmol/L Normal 98-108 [facility] Comment on above: Performed By: #### L 500.4050 #### [facility] [address] [place], [address] CO2 [Moles/Vol] 20.6 mmol/L Low 21.0-32.0 [facility] Comment on above: Performed By: #### L 500.4050 #### [facility] [address] [place], [address] Creatinine [Mass/Vol] 0.54 mg/dL Low 0.70-1.20 [facility] Comment on above: Performed By: #### L 500.4050 #### [facility] [address] [place], [address] ECRCL 161.60 ml/min Normal 50-250 [facility] Comment on above: Performed By: #### L 500.4050 #### [facility] [address] [place], [address] GAP 13 Normal 5-15 [facility] Comment on above: Performed By: #### L 500.4050 #### [facility] [address] [place], [address] GFR/1.73 sq M.predicted among non-blacks MDRD (S/P/Bld) [Vol rate/Area] 135 mL/min/{1.73_m2} Normal >60 [facility] Comment on above: Result Comment: mL/m in/1.73m2 CKD-EPI Creatinine Equation (2020) Performed By: #### L 500.4050 #### [facility] [address] [place], [address] Globulin (S) [Mass/Vol] 2.6 g/dL Normal 2.2-4.2 [facility] Comment on above: Performed By: #### L 500.4050 #### [facility] [address] [place], [address] Glucose [Mass/Vol] 118 mg/dL High 70-99 [facility] Comment on above: Performed By: #### L 500.4050 #### [facility] [address] [place], [address] Potassium [Moles/Vol] 3.8 mmol/L Normal 3.3-5.1 [facility] Comment on above: Performed By: #### L 500.4050 #### [facility] [address] [place], [address] Sodium [Moles/Vol] 137 mmol/L Normal 133-145 [facility] Comment on above: Performed By: #### L 500.4050 #### [facility] [address] [place], [address] T PROT 6.5 g/dL Normal 5.9-8.4 [facility] Comment on above: Performed By: #### L 500.4050 #### [facility] [address] [place], [address] Urea nitrogen [Mass/Vol] 7 mg/dL Normal 4-19 [facility] Comment on above: Performed By: #### L 500.4050 #### [facility] [address] [place], [address] Emergency Department Summary on 12-21-2024 Emergency Department Summary [facility] Medical Records Department [address] [place] [address] Emergency Department Summary 12/21/24 MR#: [id number] Acct: [id number] Name: PAL NICHOLAS Rep #: [id number] : 2005 19 From: Aftab Mendoza DO [...] management. States that she is following with [facility]. Patient denies any vaginal spotting or bleeding. [facility] Medical History (Updated 12/21/24 @ 23:39 [...] of infection. Discussed the case with on-call [employer]PECT[employer] for [facility] Dr. Aragon who states that she [...] 72.9 H Lymph % (Auto) 18.4 L [place] % (Auto) 6.2 Eos % (Auto) 1.4 [...] Clarity Clear Urine pH 6.5 Ur Specific [place] 1.010 Urine Protein N (more content not included)... Normal [facility] Eosinophil percentageOrdered By: Aftab Mendoza on 12-21-2024 Eosinophils/100 WBC (Bld) 1.4 % 0-5 [facility] Erythrocyte distribution wid th ratioOrdered By: Aftab Mendoza on 12-21-2024 Erythrocyte distribution width (RBC) [Ratio] 14.0 % 11.6-14.6 [facility] Erythrocyte distribution wid th standard deviationOrdered By: Aftab Mendoza on 12-21-2024 Erythrocyte distribution width (RBC) [Ratio] 44.6 fl High 35.1-43.9 [facility] Glomerular filtration rate ( GFR) estimation/1.73 sq m using serum, plasma, or whole bOrdered By: Aftab Mendoza on 12-21-2024 GFR/1.73 sq M.predicted among non-blacks MDRD (S/P/Bld) [Vol rate/Area] 135 mL/min/{1.73_m2} >60 [facility] Comment on above: mL/min/1.73m2 CKD-EP I Creatinine Equation (2020) Hematocrit Auto (Bld) [Volum e fraction]Ordered By: Aftab Mendoza on 12-21-2024 Hematocrit (Bld) [Volume fraction] 36.3 % Low 37-47 [facility] Hemoglobin measurementOrdere d By: Aftba Mendoza on 12-21-2024 Hemoglobin (Bld) [Mass/Vol] 12.5 g/dL 12.0-15.0 [facility] Immature granulocytes/100 WB C Auto (Bld)Ordered By: Aftab Mendoza on 12-21-2024 Immature granulocytes/100 WBC (Bld) 0.700 % 0.0-0.9 [facility] Comment on above: IG% - Immature Granu locytes (promyelocytes, myelocytes and metamyelocytes) > 1% indicates that a LEFT SHIFT is Present. Ketones Test strip Ql (U)Ord ered By: Aftab Mendoza on 12-21-2024 Ketones Ql (U) Negative Negative [facility] - Chemistry and C hemistry - challengeOrdered By: Aftab Mendoza on 12-21-2024 AST [Catalytic activity/Vol] 16 U/L <32 [facility] MCV (mean corpuscular volume ) determinationOrdered By: Aftab Mendoza on 12-21-2024 MCV (RBC) [Entitic vol] 88.1 fL 81-99 [facility] Mean corpuscular hemoglobin (MCH) determinationOrdered By: Aftab Mendoza 12-21-2024 MCH (RBC) [Entitic mass] 30.3 pg 27.0-32.0 [facility] Mean corpuscular hemoglobin concentration (MCHC) determinationOrdered By: Aftab Mendoza on 12-21-2024 MCHC (RBC) [Mass/Vol] 34.4 g/dL 32-36 [facility] Mean platelet volume determi nationOrdered By: Aftab Mendoza on 12-21-2024 Platelet mean volume (Bld) [Entitic vol] 9.1 fL 6.2-12.0 [facility] Microscopic analysis of urin e for red blood cells (RBC)Ordered By: Aftab Mendoza on 12-21-2024 Microscopic analysis of urine for red blood cells (RBC) 0-5 SEEN /hpf 0-5 [facility] Monocyte percentageOrdered B y: Aftab Mendoza on 12-21-2024 Monocytes/100 WBC (Bld) 6.2 % 0-10 [facility] Mucus LM Ql (Urine sed)Order ed By: Aftab Mendoza on 12-21-2024 Mucus Ql (Urine sed) 0 SEEN /hpf [facility] Neutrophil percentageOrdered By: Aftab Mendoza on 12-21-2024 Neutrophils/100 WBC (Bld) 72.9 % High 47-70 [facility] Nitrite Test strip Ql (U)Ord ered By: Aftab Mendoza on 12-21-2024 Nitrite Ql (U) Negative Negative [facility] Nucleated red blood cell per centageOrdered By: Aftab Mendoza on 12-21-2024 Nucleated RBC/100 WBC (Bld) [Ratio] 0 % 0-5 [facility] Platelet countOrdered By: Travis Mendoza on 12-21-2024 Platelets (Bld) [#/Vol] 248 10*3/uL 150-450 [facility] Potassium measurement (mass/ volume)Ordered By: Aftab Mendoza on 12-21-2024 Potassium (Unsp spec) [Mass/Vol] 3.8 mmol/L 3.3-5.1 [facility] Protein Test strip Ql (U)Ord ered By: Aftab Mendoza on 12-21-2024 Protein Ql (U) Negative Negative [facility] RBC Auto (Bld) [#/Vol]Ordere d By: Aftab Mendoza on 12-21-2024 RBC (Bld) [#/Vol] 4.12 10*6/uL Low 4.2-5.4 [facility] Serum creatinine measurement (mass/volume)Ordered By: Aftab Mendoza on 12-21-2024 Creatinine [Mass/Vol] 0.54 mg/dL Low 0.70-1.20 [facility] Serum globulin measurementOr dered By: Aftab Mendoza on 12-21-2024 Globulin (S) [Mass/Vol] 2.6 g/dL 2.2-4.2 [facility] Serum glucose measurement (m ass/volume)Ordered By: Aftab Mendoza on 12-21-2024 Glucose [Mass/Vol] 118 mg/dL High 70-99 [facility] Serum or plasma alanine [place] otransferase (ALT) measurementOrdered By: Aftab Mendoza on 12-21-2024 ALT [Catalytic activity/Vol] 10 U/L <35 [facility] Serum or plasma albumin mak urement (mass/volume)Ordered By: Aftab Mendoza on 12-21-2024 Albumin [Mass/Vol] 3.8 g/dL 3.5-5.0 [facility] Serum or plasma albumin/glob ulin mass ratioOrdered By: Aftab Mendoza on 12-21-2024 Albumin/Globulin [Mass ratio] 1.5 {ratio} 0.9-2.4 [facility] Serum or plasma alkaline cristofer sphatase measurementOrdered By: Aftab Mendoza on 12-21-2024 ALP [Catalytic activity/Vol] 44 U/L 35-104 [facility] Serum or plasma calcium mak urement (mass/volume)Ordered By: Aftab Mendoza on 12-21-2024 Calcium [Mass/Vol] 9.0 mg/dL 7.6-11.0 [facility] Serum or plasma urea nitroge n measurement (mass/volume)Ordered By: Aftab Mendoza on 12-21-2024 Urea nitrogen [Mass/Vol] 7 mg/dL 4-19 [facility] Sodium levelOrdered By: Chino Mendoza on 12-21-2024 Sodium [Moles/Vol] 137 mmol/L 133-145 [facility] Squamous epithelial cells de tection in urine sediment by light microscopyOrdered By: Aftab Mendoza on 12-21-2024 Epithelial cells.squamous LM Ql (Urine sed) 0-5 SEEN /hpf 5-10 [facility] Total proteinOrdered By: Gustavo Mendoza on 12-21-2024 Protein [Mass/Vol] 6.5 g/dL 5.9-8.4 [facility] Urinalysis, Completeon 12-21 EPI,SQUAMOUS 0-5 SEEN Normal 5-10 [facility] Comment on above: Order Comment: CLEAN CATCH Performed By: #### L 400.0001 #### [facility] [address] [place], [address] RBC 0-5 SEEN Normal 0-5 [facility] Comment on above: Order Comment: CLEAN CATCH Performed By: #### L 400.0001 #### [facility] [address] [place], [address] WBC 0-5 SEEN Normal 0-5 [facility] Comment on above: Order Comment: CLEAN CATCH Performed By: #### L 400.0001 #### [facility] [address] [place], [address] BACTERIA 0 SEEN Normal None Seen [facility] Comment on above: Order Comment: CLEAN CATCH Performed By: #### L 400.0001 #### [facility] [address] [place], [address] Mucus Ql (Urine sed) 0 SEEN Normal [facility] Comment on above: Order Comment: CLEAN CATCH Performed By: #### L 400.0001 #### [facility] [address] [place], [address] Urine clarityOrdered By: Gustavo Mendoza on 12-21-2024 Clarity (U) Clear Clear [facility] Urine color determinationOrd ered By: Aftab Mendoza on 12-21-2024 Color (U) Yellow Yellow [facility] Urine cultureOrdered By: Gustavo Mendoza on 12-21-2024 Bacteria identified Cx Nom (U) Positive Abnormal [facility] Urine glucose detectionOrder ed By: Aftab Mendoza on 12-21-2024 Glucose Ql (U) Normal mg/dl Normal [facility] Urine leukocyte esterase det ection by dipstickOrdered By: Aftab Mendoza on 12-21-2024 Leukocyte esterase Test strip Ql (U) Negative Negative [facility] Urine pHOrdered By: Aftab valentin on 12-21-2024 pH (U) 6.5 [pH] 5.0 - 8.0 [facility] Urine sediment bacteria coun t by microscopy (number/high power field)Ordered By: Aftab Mendoza on 12-21-2024 Bacteria LM.HPF (Urine sed) [#/Area] 0 /[HPF] None Seen [facility] Urine specific gravity measu rementOrdered By: Aftab Mendoza on 12-21-2024 Specific gravity (U) [Rel density] 1.010 1.002-1.030 [facility] Urine urobilinogen measureme ntOrdered By: Aftab Mendoza on 12-21-2024 Urobilinogen Ql (U) Normal mg/dl Normal [facility] White blood cell (WBC) count Ordered By: Aftab Mendoza on 12-21-2024 WBC (Bld) [#/Vol] 10.4 10*3/uL 4.4-11.0 [facility] White blood cell countOrdere d By: fAtab Mendoza on 12-21-2024 White blood cell count 0-5 SEEN /hpf 0-5 [facility] CNPNon 12-01-2024 CNPN Telephone (OGFVWE) PAL NICHOLAS ([id number]) 3 F Date Time Provider Department 12/01/24 NURSE [employer] [facility] During your visit today, we recorded the following information about you: Maria Alejandra Kay, RN 12/01/2024 8:37 AM Signed ----- Message from Rica Pendleton sent at 11/30/2024 4:05 PM EDT ----- Regarding: New/MELVIN OB 16 weeks Patient has been identified by name and Date of : Yes Patient: Pal Nicholas Date of : 2005 Provider for this encounter : [employer] CLAIM [employer]ER [facility] Reason for call: New OB patient (16 weeks as of 11/30/24), [place] from [place] Was an appointment scheduled: No Reason for requesting visit (RFV/signs and symptoms/diagnosis) : Establish with OB at [facility] for continuation of care. Person calling: self Return call to: self Call patient at: [phone] (cell), it is OK to leave message [...] and verified. Patient wishes to transfer to [facility] for OB care. AMARI? 05/31/25 Gestational age? 14w1d Patient aware to sign up for My Chart so she can receive the palliative care nurse practitioner messages. What facility is she transferring from? [facility] [employer] in [place] Moving to [place] in 2 weeks and will be approx [...] would the patient like to establish in? [place] Will route this encounter to the desired office. Maria Alejandra Kay RN Allergies As of Date: 12/01/2024 (Not on File) Date Reviewed: Never Reviewed Reason for Visit: Care Coordination [3491] Problem List As Of Date: 12/01/2024 (None) Encounter Status:Closed by MAGDA HAGEN on 12/02/24 Normal [facility] Vital Signs Date Time Vital Sign Value Performing Clinician Adina salmon 02-23-2025 20:56-0400 Body height 170.[address] Aftab Mendoza DO Work Phone: 1(351)513-092899 [place] [address] 02-23-2025 20:56-0400 Body mass index (BMI) [Ratio] 28.5 kg/m2 Dr. Aftab Mendoza DO Work Phone: 9(820)810-998599 [place] [address] 02-23-2025 20:56-0400 Body weight 82.[address] Aftab Mendoza DO Work Phone: 9(162)421-333534 [address] 02-13-2025 22:31-0400 Diastolic blood pressure 73 mm[Hg] Dr. Aftab Mendoza DO Work Phone: 0(552)131-581199 [place] [address] 02-13-2025 22:31-0400 Heart rate 95 /min Dr. Aftab Mendoza DO Work Phone: 8(459)829-399099 [place] [address] 02-13-2025 22:31-0400 Systolic blood pressure 120 mm[Hg] Dr. Aftab Mendoza DO Work Phone: 3(847)584-262499 [place] [address] 02-13-2025 22:07-0400 Body temperature 98.6 [degF] Dr. Aftab Mendoza DO Work Phone: 5(367)076-849499 [place] [address] 02-13-2025 22:07-0400 Respiratory rate 16 /min Dr. Aftab Mendoza DO Work Phone: 4(032)338-460699 [place] [address] 02-13-2025 21:53-0400 Body height 170.[address] Aftab Mendoza DO Work Phone: 4(953)673-820399 [place] [address] 02-13-2025 21:53-0400 Body mass index (BMI) [Ratio] 27.7 kg/m2 Dr. Aftab Mendoza DO Work Phone: 7(936)880-799999 [place] [address] 02-13-2025 21:53-0400 Body weight 80.[address] Aftab Mendoza DO Work Phone: [facility] 02-08-2025 10:33-0400 Body mass index (BMI) [Ratio] 27.57 kg/m2 Lynnette Tapia MATHEMATICS TECHNICIAN.CNM Work Phone: [facility] 02-08-2025 10:33-0400 Body weight 79.83 kg Lynnette Tapia MATHEMATICS TECHNICIAN.CNM Work Phone: [facility] 02-08-2025 10:33-0400 Diastolic blood pressure 74 mm[Hg] Lynnette Tapia MATHEMATICS TECHNICIAN.CNM Work Phone: [facility] 02-08-2025 10:33-0400 Systolic blood pressure 126 mm[Hg] Lynnetteleonard Tapia MATHEMATICS TECHNICIAN.CNM Work Phone: [facility] 02-05-2025 15:26-0400 Diastolic blood pressure 78 mm[Hg] Dr. Aftab Mendoza DO Work Phone: [facility] 02-05-2025 15:26-0400 Heart rate 80 /min Dr. Aftab Mendoza DO Work Phone: [facility] 02-05-2025 15:26-0400 Systolic blood pressure 124 mm[Hg] Dr. Aftab Mendoza DO Work Phone: [facility] 02-05-2025 15:10-0400 Body temperature 99 [degF] Dr. Aftab Mendoza DO Work Phone: [facility] 02-05-2025 15:10-0400 Respiratory rate 16 /min Dr. Aftab Mendoza DO Work Phone: [facility] 02-05-2025 15:10-0400 SaO2% (BldA) [Mass fraction] 96 % Dr. Aftab Mendoza DO Work Phone: [facility] 02-04-2025 22:37-0400 Body temperature 99.4 [degF] Dr. Aftab Mendoza DO Work Phone: [facility] 02-04-2025 22:37-0400 Diastolic blood pressure 84 mm[Hg] Dr. Aftab Mendoza DO Work Phone: 3(056)372-110499 [place] [address] 02-04-2025 22:37-0400 Heart rate 92 /min Dr. Aftab Mendoza DO Work Phone: 7(338)916-779099 [place] [address] 02-04-2025 22:37-0400 Respiratory rate 16 /min Dr. Aftab Mendoza DO Work Phone: 3(951)035-998199 [place] [address] 02-04-2025 22:37-0400 Systolic blood pressure 129 mm[Hg] Dr. Aftab Mendoza DO Work Phone: 7(220)259-075499 [place] [address] 02-04-2025 22:23-0400 Body height 170.[address] Aftab Mendoza DO Work Phone: 4(706)412-284198 [place] [address] 02-04-2025 22:23-0400 Body mass index (BMI) [Ratio] 27.2 kg/m2 Dr. Aftab Mendoza DO Work Phone: 1(677)318-622199 [place] [address] 02-04-2025 22:23-0400 Body weight 78.[address] Aftab Mendoza DO Work Phone: 3(441)652-961299 [place] [address] 02-02-2025 21:12-0400 Body temperature 98.8 [degF] Dr. Aftab Mendoza DO Work Phone: 4(843)940-278799 [place] [address] 02-02-2025 21:12-0400 Diastolic blood pressure 78 mm[Hg] Dr. Aftab Mendoza DO Work Phone: 8(754)445-841799 [place] [address] 02-02-2025 21:12-0400 Heart rate 109 /min Dr. Aftab Mendoza DO Work Phone: 1(787)727-325999 [place] [address] 02-02-2025 21:12-0400 Respiratory rate 16 /min Dr. Aftab Mendoza DO Work Phone: 9(342)493-887799 [place] [address] 02-02-2025 21:12-0400 SaO2% (BldA) [Mass fraction] 98 % Dr. Aftab Mendoza DO Work Phone: 3(902)436-539599 [place] [address] 02-02-2025 21:12-0400 Systolic blood pressure 123 mm[Hg] Dr. Aftab Mendoza DO Work Phone: [facility] 02-02-2025 21:07-0400 Body height 170.[address] Aftab Mendoza DO Work Phone: [facility] 02-02-2025 21:07-0400 Body mass index (BMI) [Ratio] 27.2 kg/m2 Dr. Aftab Mendoza DO Work Phone: [facility] 02-02-2025 21:07-0400 Body weight 78.[address] Aftab Mendoza DO Work Phone: [facility] 02-02-2025 14:04-0400 Body mass index (BMI) [Ratio] 27.41 kg/m2 Lester Phillips MD Work Phone: [facility] 02-02-2025 14:04-0400 Body weight 79.38 kg Lester Phillips MD Work Phone: [facility] 02-02-2025 14:04-0400 Diastolic blood pressure 78 mm[Hg] Lester Phillips MD Work Phone: [facility] 02-02-2025 14:04-0400 Systolic blood pressure 122 mm[Hg] Lester Phillips MD Work Phone: [facility] 01-20-2025 09:55-0400 Body mass index (BMI) [Ratio] 26.31 kg/m2 Karina Blanco MD Work Phone: [facility] 01-20-2025 09:55-0400 Body weight 76.2 kg Karina Blanco MD Work Phone: [facility] 01-20-2025 09:55-0400 Diastolic blood pressure 62 mm[Hg] Karina Blanco MD Work Phone: [facility] 01-20-2025 09:55-0400 Systolic blood pressure 116 mm[Hg] Karina Blanco MD Work Phone: [facility] 01-11-2025 15:00-0400 Body mass index (BMI) [Ratio] 25.34 kg/m2 Ramakrishna Corley MD Work Phone: [facility] 01-11-2025 15:00-0400 Body weight 73.39 kg Ramakrishna Corley MD Work Phone: [facility] 01-11-2025 15:00-0400 Diastolic blood pressure 70 mm[Hg] Ramakrishna Corley MD Work Phone: [facility] 01-11-2025 15:00-0400 Systolic blood pressure 110 mm[Hg] Ramakrishna Corley MD Work Phone: [facility] 12-28-2024 08:46-0400 Body height 170.2 cm Lynnette Plotts MATHEMATICS TECHNICIAN.CNM Work Phone: [facility] 12-28-2024 08:46-0400 Body mass index (BMI) [Ratio] 24.9 kg/m2 Lynnette Plotts MATHEMATICS TECHNICIAN.CNM Work Phone: [facility] 12-28-2024 08:46-0400 Body weight 72.12 kg Lynnette Plotts MATHEMATICS TECHNICIAN.CNM Work Phone: [facility] 12-28-2024 08:46-0400 Diastolic blood pressure 74 mm[Hg] Lynnette Plotts MATHEMATICS TECHNICIAN.CNM Work Phone: [facility] 12-28-2024 08:46-0400 Systolic blood pressure 114 mm[Hg] Lynnette Plotts MATHEMATICS TECHNICIAN.CNM Work Phone: [facility] 12-22-2024 00:00-0400 Heart rate 81 /min Dr. Aftab Mendoza DO Work Phone: [facility] 12-22-2024 00:00-0400 Respiratory rate 16 /min Dr. Aftab Mendoza DO Work Phone: [facility] 12-22-2024 00:00-0400 SaO2% (BldA) [Mass fraction] 98 % Dr. Aftab Mendoza DO Work Phone: [facility] 12-21-2024 23:57-0400 Body temperature 97.4 [degF] Dr. Aftab Mendoza DO Work Phone: [facility] 12-21-2024 23:57-0400 Diastolic blood pressure 58 mm[Hg] Dr. Aftab Mendoza DO Work Phone: [facility] 12-21-2024 23:57-0400 Systolic blood pressure 110 mm[Hg] Dr. Aftab Mendoza DO Work Phone: [facility] 12-21-2024 20:27-0400 Body height 170.[address] Aftab Mendoza DO Work Phone: [facility] 12-21-2024 20:27-0400 Body mass index (BMI) [Ratio] 24.4 kg/m2 Dr. Aftab Mendoza DO Work Phone: [facility] 12-21-2024 20:27-0400 Body weight 70.[address] Aftab Mendoza DO Work Phone: [facility] Encounters Encounter Date Encounter Type Care Provider Facility Start: 03-15-2025 End: 03-15-2025 ambulatory [facility] Facility:[facility] Start: 03-13-2025 End: 03-13-2025 ambulatory Patsy Housatonic Facility:[facility] Start: 03-11-2025 End: 03-11-2025 ambulatory [facility] Facility:[facility] Start: 03-08-2025 End: 03-08-2025 ambulatory REGGIE MA Facility:[facility] Start: 02-23-2025 End: 02-23-[address] Aftab Mendoza DO Work Phone: [facility] Start: 02-23-2025 End: 02-23-2025 Patient encounter procedure Patsy March [facility] Work Phone: Start: 02-18-2025 End: 02-18-[address] [facility] Facility:[facility] Start: 02-16-2025 End: 02-16-2025 ambulatory LESTER PHILLIPS Facility:[facility] Start: 02-13-2025 End: 02-13-[address] Aftab Mendoza DO Work Phone: -[facility] Start: 02-13-2025 End: 02-13-[address] Magda Aragon MD -[facility] Work Phone: Start: 02-13-2025 End: 02-13-2025 Emergency department patient visit ALEXA PHOENIX Facility:[facility] Start: 02-08-2025 End: 02-08-2025 Patient encounter procedure Lynnette Tapia APRN.CNM Work Phone: OB/Gynecology Comment on above: Encounter for superv ision of normal first in second trimester (HCC) (Primary Dx); 24 weeks gestation of (HCC); Screening for diabetes mellitus; Vaginal discharge during in second trimester (HCC) Start: 02-08-2025 End: 02-08-2025 ambulatory LYNNETTE TAPIA Facility:[facility] Start: 02-05-2025 End: 02-05-2025 Telephone encounter [...] normal first in second trimester ([facility]) (Primary Dx); Vaginal discharge; 21 weeks gestation of ([facility]); Abdominal pain affecting ([facility]) Start: 01-20-2025 End: 01-20-2025 ambulatory KARINA BLANCO Facility:[facility] Start: 01-19-2025 End: 01-20-2025 ambulatory Ramakrishna Corley MD Work Phone: OB/Gynecology Start: 01-19-2025 End: 01-20-2025 Follow-up encounter Ramakrishna Corley MD Work Phone: OB/Gynecology Comment on above: Follow up from ER Start: 01-18-2025 End: 01-19-2025 Emergency department patient visit NUZHAT ZAMORANO Facility:[facility] Start: 01-18-2025 End: 01-20-2025 Telephone encounter [...] normal first in second trimester ([facility]) POTS (postural ortho static tachycardia syndrome) (Primary Dx); Visit for screening ([facility]); 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[facility]); Chronic hypertension affecting ([facility]) Start: 01-11-2025 End: 01-11-2025 ambulatory [facility] Facility:[facility] Start: 01-07-2025 End: 01-12-2025 Telephone encounter Ej Rodriguez MD Work Phone: [facility] Comment on above: Appointment Start: 01-06-2025 End: 01-06-2025 Emergency department patient visit ALEXA DICKSON Facility:[facility] Start: 01-06-2025 End: 01-07-2025 Telephone encounter Karina Addison MATHEMATICS TECHNICIAN.CNM Work Phone: OB/Gynecology Comment on above: OB Vaginal Pressure Start: 01-05-2025 End: 01-05-2025 Telephone encounter Jayla Keller MD Work Phone: [facility] Comment on above: OB Pain Start: 01-04-2025 End: 01-05-2025 ambulatory NUZHAT ZAMORANO Facility:[facility] Start: 01-04-2025 End: 01-21-2025 Telephone encounter Magda Aragon MD Work Phone: OB/Gynecology Comment on above: Low back aching/cram ping pelvic region Start: 12-30-2024 End: 12-30-2024 ambulatory [facility] Facility:[facility] Start: 12-28-2024 End: 12-28-2024 Patient encounter procedure Lynnette Tapia MATHEMATICS TECHNICIAN.CNM Work Phone: OB/Gynecology Comment on above: Visit for s creening (HCC) (Primary Dx); 18 weeks gestation of (HCC); Encounter for supervision of high risk in second trimester, antepartum (HCC); 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HCC); POTS (postural orthostatic tachycardia syndrome); Cystic fibrosis carrier; Screening for STD (sexually transmitted disease); Abdominal pain during in second trimester (HCC); Bacterial vaginosis Start: 12-28-2024 End: 12-28-2024 ambulatory [facility] Facility:[facility] Start: 12-25-2024 End: 12-25-2024 Telephone encounter Lynnette Tapia MATHEMATICS TECHNICIAN.CNM Work Phone: OB/Gynecology Comment on above: Received Outside Med ical Records Start: 12-22-2024 End: 12-22-2024 ambulatory MARK FOREMAN Facility:[facility] Start: 12-22-2024 End: 12-22-2024 Telephone encounter Karina Addison MD Work Phone: OB/Gynecology Comment on above: OB Pelvic Pain Start: 12-21-2024 End: 12-22-2024 Emergency department patient visit Dr. Aftab Mendoza DO Work Phone: -Emergency Department Work Phone: Start: 12-01-2024 End: 12-02-2024 Telephone encounter Nurse Delivery And Installation Subcontractor [facility] Work Phone: Obstetrics/Gynecology Comment on above: Care Coordination Procedures Date Procedure Procedure Detail Performing Clinician Start: 03-11-2025 Antibody screen JACKIE TAPIA Comment on above: Order Comment: Speci men Type: BLOOD SPECIMENOrdering Facility: [facility] Address: [address] [place] [address] Performed By: #### T SPN ####[facility] LABCLIA [id number] [place] [address] [place] Start: 02-08-2025 Urnls dip stick/tabl et rgnt auto w/o microscopy Lynnette Tapia MATHEMATICS TECHNICIAN.[facility] Work Phone: Start: 02-08-2025 BACTERIAL VAGINOSIS NAAT Lynnette Tapia MATHEMATICS TECHNICIAN.CN Work Phone: Start: 02-08-2025 Iadna trichomonas va ginalis amplified probe tech Lynnette Tapia MATHEMATICS TECHNICIAN.CNM Work Phone: Start: 02-04-2025 Urnls dip stick/tabl [...] after 1st trimest 05/27 gestation Lynnette Tapia MATHEMATICS TECHNICIAN.[facility] Work Phone: Start: 01-11-2025 Urnls dip stick/tabl [...] Scree hernando () GC (Gonorrhea) Screening () [facility] Start: 01-06-2026 Screening for Chlamy eva trachomatis Chlamydia Screening () [facility] Start: 04-05-2025 RSV Vaccine (1 - Ris k 1-dose series) RSV Vaccine (1 - Risk 1-dose series) [facility] Start: 03-11-2025 End: 03-11-2025 Patient encounter procedure [facility] Comment on above: Growth Growth/OB Start: 03-11-2025 End: 03-11-2025 ambulatory 03/11/2025 9:45 AM EDT Results Only Tito Amado [facility] [address] [place] [address] Glucose Test [facility] Comment on above: Glucose Test Start: 03-08-2025 End: 03-08-2025 Patient encounter procedure 03/08/2025 9:20 AM EDT Office Visit [facility] Cardiology [address] [facility] [address] [place] [address] Reggie Ma MD [address] [place] [address] est care, hx EDS and POTS, EKG non-specific ST-T wave abnormality, currently . MS/ EKG kk [facility] Comment on above: est care, hx EDS and POTS, EKG non-specific ST-T wave abnormality, currently . MS/ EKG kk Start: 02-23-2025 Patient discharge [facility] Start: 02-13-2025 Nonstress test [facility] Start: 02-13-2025 Obstetric monitoring [facility] Start: 02-13-2025 Vital signs measurements [facility] Start: 02-13-2025 [facility] Start: 02-13-2025 Patient discharge [facility] Start: 02-08-2025 End: 05-10-2025 ANEMIA REFLEX PANEL ANEMIA REFLEX PANEL Lab Routine Encounter for supervision of normal first in second trimester (HCC) 24 weeks gestation of (HCC) Expected: 02/08/2025, Expires: 05/10/2025 [facility] Comment on above: Expected: 02/08/2025 , Expires: 05/10/2025 Start: 02-08-2025 End: 02-08-2026 GESTATIONAL GLUCOSE SCREEN, 1-HOUR, 50 GRAM, NON-FASTING GESTATIONAL GLUCOSE SCREEN, 1-HOUR, 50 GRAM, NON-FASTING Lab Routine Encounter for supervision of normal first in second trimester (HCC) 24 weeks gestation of (HCC) Screening for diabetes mellitus Expected: 02/08/2025, Expires: 02/08/2026 [facility] Work Phone: Comment on above: Expected: 02/08/2025 , Expires: 02/08/2026 Start: 02-08-2025 End: 02-08-2026 SYPHILIS TREPONEMAL W/REFLEX SYPHILIS TREPONEMAL W/REFLEX Lab Routine Encounter for supervision of normal first in second trimester (HCC) 24 weeks gestation of (HCC) Expected: 02/08/2025, Expires: 02/08/2026 [facility] Comment on above: Expected: 02/08/2025 , Expires: 02/08/2026 Start: 02-08-2025 End: 02-08-2025 Patient encounter procedure 02/08/2025 10:30 AM EDT Routine Office Visit OB/Gynecology [address] [place], [place] [id number] Lynnette Tapia APRN.CNM [address] [place] [address] LMP:08/24/24, New OB 12/28/24 OB/Gynecology Comment on above: LMP:08/24/24, New 1st OB 12/28/24 Start: 02-05-2025 End: 02-05-2025 Patient encounter procedure [facility] Comment on above: est care, hx EDS and POTS, EKG non-specific ST-T wave abnormality, currently . MS est care, hx EDS and POTS, EKG non-specific ST-T wave abnormality, currently . MS/ EKG kk Start: 02-05-2025 [facility] Start: 02-05-2025 Patient discharge [facility] Start: 02-04-2025 Nonstress test [facility] Start: 02-04-2025 Obstetric monitoring [facility] Start: 02-04-2025 Vital signs measurements [facility] Start: 02-04-2025 [facility] Start: 02-04-2025 Bacteria identified in Urine by Culture Urine Culture [facility] Start: 02-02-2025 End: 02-02-2025 [facility] Start: 02-02-2025 Nonstress test [facility] Start: 02-02-2025 Obstetric monitoring [facility] Start: 02-02-2025 Vital signs measurements [facility] Start: 02-02-2025 [facility] Start: 02-02-2025 Bacteria identified in Urine by Culture Urine Culture [facility] Start: 02-02-2025 Patient discharge [facility] Start: 01-28-2025 End: 01-28-2025 Patient encounter procedure 01/28/2025 10:00 AM EDT Routine Office Visit OB/Gynecology [address] [place] [address] Magda Aragon MD [address] [place] [address] LMP:08/24/24, New 1st OB 12/28/24 OB/Gynecology Comment on above: LMP:08/24/24, New 1st OB 12/28/24 Start: 01-25-2025 Influenza vaccination Influenza Vacc ine (#1) [facility] Start: 01-11-2025 End: 01-11-2025 Patient encounter procedure [facility] Comment on above: Anatomy Anatomy/OB Start: 01-11-2025 End: 04-12-2025 TSH W/REFLEX FT4 TSH W/REFLEX FT4 Lab Routine Palpitations Other fatigue Weakness Expected: 01/11/2025, Expires: 04/12/2025 [facility] Comment on above: Expected: 01/11/2025 , Expires: 04/12/2025 Start: 12-28-2024 End: 12-28-2025 OBSTETRIC ULTRASOUND WHI OBSTETRIC ULTRASOUND WHI Anc Imaging Routine Visit for screening (HCC) Expected: 12/28/2024, Expires: 12/28/2025 [facility] Work Phone: Comment on above: Expected: 12/28/2024 , Expires: 12/28/2025 Start: 12-28-2024 End: 12-28-2024 Patient encounter procedure OB/Gynecology Comment on above: LMP:08/24/24 LMP:08/24/24 - record s in chart prep binder Start: 12-21-2024 [facility] Start: 12-21-2024 [facility] Start: 12-21-2024 Bacteria identified in Urine by Culture Urine Culture [facility] Start: 01-26-2024 Covid-19 Vaccine ( season) Covid-19 Vaccine ( season) [facility] Start: 11-25-2023 Hepatitis B Vaccine (1 of 3 - 19+ 3-dose series) Hepatitis B Vaccine (1 of 3 - 19+ 3-dose series) [facility] Start: 11-25-2023 Urine microalbumin profile DTaP,Tdap,Td Vaccine (1 - Tdap) [facility] Start: 2022 Anxiety Screening Anxiety Screening [facility] Start: 2022 Depression Screening Depression Scre ening [facility] Start: 2022 GC (Gonorrhea) Scree hernando (1824) GC (Gonorrhea) Screening (-) [facility] Start: 2022 Hepatitis C screening Hepatitis C Sc reening [facility] Start: 2022 HIV screening HIV Screening [facility] Start: 2022 Screening for Chlamy eva trachomatis Chlamydia Screening () [facility] Start: 2020 Meningococcal B Vacc ine (1 of 2 - Standard) Meningococcal B Vaccine (1 of 2 - Standard) [facility] Start: 11-25-2019 HPV Vaccine (1 - 3-d ose series) HPV Vaccine (1 - 3-dose series) [facility] Start: 2018 Peds To Adult Transi tion Annual Assessment Peds To Adult Transition Annual Assessment [facility] Start: 2016 Peds To Adult Transi tion Initial Discussion Peds To Adult Transition Initial Discussion [facility] Bacteria identified in Urine by Culture BACTERIAL CULTURE, URINE Microbiology Routine Burning with urination Ordered: 01/11/2025 [facility] Comment on above: Ordered: 01/11/2025 Bacteria identified in Urine by Culture BACTERIAL CULTURE, URINE Microbiology Routine Vaginal discharge during in second trimester ([facility]) 02/08/2025 11:17 AM EDT [facility] BACTERIAL VAGINOSIS NAAT BACTERI AL VAGINOSIS NAAT Lab Routine Visit for screening ([facility]) 12/28/2024 11:27 AM EDT [facility] BACTERIAL VAGINOSIS NAAT BACTERI AL VAGINOSIS NAAT Lab Routine Bacterial vaginosis Ordered: 01/11/2025 [facility] Work Phone: Comment on above: Ordered: 01/11/2025 PARVEEN/TRICHOMONAS NAAT PARVEEN /TRICHOMONAS NAAT Lab Routine Visit for screening ([facility]) 12/28/2024 11:27 AM EDT [facility] PARVEEN/TRICHOMONAS NAAT PARVEEN /TRICHOMONAS NAAT Lab Routine Bacterial vaginosis Ordered: 01/11/2025 [facility] Comment on above: Ordered: 01/11/2025 Patient Education Kick Counts ED False Labor OB Triage: Return to Hospital or Notify Physician if you Experience: [facility] Work Phone: [facility] Payers Date Payer Category Payer Self-pay 2023 [employer] BLUE CARD PPO OOS [id number] 2023 Unknown [id number] Unknown [id number] Unknown [id number] Unknown [id number] Unknown [id number] Unknown [id number] Unknown [id number] Social History Date Type Detail Facility Tobacco smoking stat us NHIS Tobacco smoking consumption unknown [facility] Start: 2004 Sex assigned at Not on file [facility] Start: 12-28-2024 End: 01-11-2025 Gender identity Not on file [facility] Start: 12-21-2024 End: 12-28-2024 Tobacco smoking status NHIS Never smoked tobacco (finding) [facility] Start: 2004 Sex Assigned At Female W [facility] Start: 09-07-2024 [facility] Start: 12-28-2024 Tobacco use and exposure Smokeless tobacco non-user [facility] Start: 12-28-2024 End: 01-11-2025 History of Social function [facility] Start: 11-30-2024 Adult Depression Screening Assessment 0 [facility] Goals Date Patient Goal Desired Activity /State Personal health goal Personal health goal Functional Status Date Assessment Result Facility 01-19-2025 Are you deaf, or do you have serious difficulty hearing No 01/19/2025 3:40 AM Armida Owens RN [facility] 01-19-2025 Are you blind, or do you have serious difficulty seeing, even when wearing glasses No 01/19/2025 3:40 AM Armida Owens RN No [facility] 01-19-2025 Do you have serious difficulty walking or climbing stairs No 01/19/2025 3:40 AM Armida Owens RN No [facility] 01-19-2025 Do you have difficul ty dressing or bathing No 01/19/2025 3:40 AM Armida Owens RN No [facility] 01-19-2025 Because of a physica l, mental, or emotional condition, do you have difficulty doing errands alone such as visiting a physician's office or shopping No 01/19/2025 3:40 AM Armida Owens RN No [facility] 01-06-2025 Are you deaf, or do you have serious difficulty hearing No 01/06/2025 10:25 PM Benita Yeager RN No [facility] 01-06-2025 Are you blind, or do you have serious difficulty seeing, even when wearing glasses No 01/06/2025 10:25 PM Benita Yeager RN No [facility] 01-06-2025 Do you have serious difficulty walking or climbing stairs No 01/06/2025 10:25 PM MEGT Benita Bradley RN No [facility] 01-06-2025 Do you have difficul ty dressing or bathing No 01/06/2025 10:25 PM Benita Yeager RN No [facility] 01-06-2025 Because of a physica l, mental, or emotional condition, do you have difficulty doing errands alone such as visiting a physician's office or shopping No 01/06/2025 10:25 PM MEGT Benita Bradley RN No [facility] 01-05-2025 Are you deaf, or do you have serious difficulty hearing No 01/05/2025 2:21 AM Ayanna Price RN No [facility] 01-05-2025 Are you blind, or do you have serious difficulty seeing, even when wearing glasses No 01/05/2025 2:21 AM Ayanna Price, LEVON No [facility] 01-05-2025 Do you have serious difficulty walking or climbing stairs No 01/05/2025 2:21 AM Ayanna Price, LEVON No [facility] 01-05-2025 Do you have difficul ty dressing or bathing No 01/05/2025 2:21 AM Ayanna Price, LEVON No [facility] 01-05-2025 Because of a physica l, mental, or emotional condition, do you have difficulty doing errands alone such as visiting a physician's office or shopping No 01/05/2025 2:21 AM Ayanna Price, LEVON No [facility] 12-22-2024 Are you deaf, or do you have serious difficulty hearing No 12/22/2024 9:46 PM EDT Armida Pennington RN No [facility] 12-22-2024 Are you blind, or do you have serious difficulty seeing, even when wearing glasses No 12/22/2024 9:46 PM MEGT Armida Pennington RN No [facility] 12-22-2024 Do you have serious difficulty walking or climbing stairs No 12/22/2024 9:46 PM MEGT Armida Pennington RN No [facility] 12-22-2024 Do you have difficul ty dressing or bathing No 12/22/2024 9:46 PM MEGT Armida Pennington, LEVON No [facility] 12-22-2024 Because of a physica l, mental, or emotional condition, do you have difficulty doing errands alone such as visiting a physician's office or shopping No 12/22/2024 9:46 PM MEGT Armida Pennington RN No [facility] Mental Status Date Assessment Result Facility 01-19-2025 Because of a physica l, mental, or emotional condition, do you have serious difficulty concentrating, remembering, or making decisions No 01/19/2025 3:40 AM EDT Armida Neves, LEVON No [facility] 01-06-2025 Because of a physica l, mental, or emotional condition, do you have serious difficulty concentrating, remembering, or making decisions No 01/06/2025 10:25 PM EDT Benita Bradley RN No [facility] 01-05-2025 Because of a physica l, mental, or emotional condition, do you have serious difficulty concentrating, remembering, or making decisions No 01/05/2025 2:21 AM EDT Ayanna Alatorre RN No [facility] 12-22-2024 Because of a physica l, mental, or emotional condition, do you have serious difficulty concentrating, remembering, or making decisions No 12/22/2024 9:46 PM EDT Armida Pennington RN No [facility] Clinical Notes 2004 to 03-11-2025 Note Date & Type Note Facility 03-11-2025 Note HNO ID: [id number] Author: JOCELYNE BLACK RN Service: ? Author Type: Registered Nurse Type: Progress Notes Filed: 03/11/2025 12:22 Note Text: The patient is here for an injection of Rhogam. Dose: 300 mcg Amount wasted: none. Route: Intramuscular Site: left upper quadrant gluteus Field Ring Assembler: CSL Behring Lot #: [id number] Expiration Date: 09/04/2026 Jocelyne Black RN [facility] 03-11-2025 Note HNO ID: [id number] Author: PRITI SHARMA MA Service: ? Author Type: Pie Chef Type: Progress Notes Filed: 03/11/2025 12:22 Note [...] severely ill: Yes Patient denies history of Guillain-Fife Syndrome (a severe paralytic illness): Yes Tdap Adacel injection was given without incident. See immunizations for details of immunizations administered today. VIS sheet provided: Yes Provider Ramakrishna Corley DO was present in office at time of injection. Priti Sharma MA [facility] 03-08-2025 Note HNO ID: [id number] Author: REGGIE MA MD Service: ? Author Type: Physician Type: Progress Notes Filed: 03/08/2025 09:45 Note Text: PRIMARY CARE PHYSICIAN: To use this Smartlink, specify the provider ID whose address you want to display, e.g., .PROVADDR[1 (where 1 is the provider ID). REFERRING PHYSICIAN: Lynnette Am[address] Rd [facility] [id number] CHIEF COMPLAINT: Abnormal EKG HISTORY OF PRESENT [...] of illicit drugs. 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 She has 1 other sibling. She is here in the office with her mom. Paternal grandfather suddenly at age 49. She stated the diagnosis of Myles-Danlos was made by a meringuer and patcher wood welder. She is not sure if she had [...] S1/S2; no murmurs, gallops, or rubs Abdomen: [place] distended. Nontender. EXTREMETIES: No peripheral edema. Grade [...] (U/L) Date Value 01/18/2025 11 URINALYSIS Specific [place], Ur Date Value Ref Range Status 02/13/2025 1.019 1.005 - 1.030 Final Glucose, Urine Date Value Ref Range Status 02/13/2025 Negative Trac (more content not included)... [facility] 02-23-2025 History and physical note Note Date/Time February 23, 2025 9:06pm [facility] Medical Records Department [address] [place] [address] OB Triage Physician Note 02/23/252054 MR#: [id number] Acct: [id number] Name: PAL NICHOLAS Rep #:[id number] : 2005 19 From: Lester Phillips MD PCP: Care Physician,No Primary Status :REG CLI Y Location: [place] [address]1 [facility] Date of Service: 02/23/25 HPI Narrative PAL NICHOLAS, is a 19 F who presents back pain, side pain and some contractions. Maternal Data Information AMARI Calculator 2 Estimated Delivery Date Method Current WG Current Estimate 05/31/25 Manual 26w 1d [facility] Medical History (Updated 02/23/25 @ 20:56 [...] MD; No Primary Care Physician ~ Signed [facility] Work Phone: 1(193) 728-485909-30-2025 History and physical note [facility] Medical Records Department [address] [place] [address] OB Triage Physician Note 02/23/252054 MR#: [id number] Acct: [id number] Name: PAL NICHOLAS Rep #:[id number] : 2005 19 From: Lester Phillips MD PCP: Care Physician,No Primary Status :REG CLI Y Location: [place] [address]33-1 HPI - General General Date of Service: 02/23/25 HPI Narrative PAL NICHOLAS, is a 19 F who presents back pain, side pain and some contractions. Maternal Data Information AMARI Calculator 2 Estimated Delivery Date Method Current WG Current Estimate 05/31/25 Manual 26w 1d [facility] History (Updated 02/23/25 @ 20:56 [...] 02/23/252105 MD> Date _ Lester Phillips MD [facility] Signature (if applicable): Date CC: Dr. Lester Phillips MD; No Primary Care Physician ~ Signed [facility]09-25-2025 NoteHNO ID: [id number] Author: KARI JOHNSTON MD Service: ? Author Type: Physician Type: Progress Notes Filed: 02/18/2025 13:16 Note Text: Female Pelvic Medicine AND Reconstructive Surgery Consult Recording using Kavalia software for draft documentation of the visit was discussed with the patient/authorized claims service representative; all questions welcomed and answered. Patient/authorized claims service representative agreed to proceed CHIEF COMPLAINT: Pal [...] retention, (+) uterine contractio (more content not included)...[facility]09-20-2025 NoteHNO ID: [id number] Author: KERVIN GARDINER DO Service: Obstetrics Author [...] Dept Phone 03/08/2025 9:[address] [facility] [phone] 03/11/2025 9:45 AM LAB [facility] [place] [phone] 03/11/2025 10:00 AM I TECH 1 [employer] INSURANCE CLAIM EXAMINER MFM [facility] [place] [phone] 03/11/2025 10:00 AM AUTOMOBILE INSURANCE CLAIM EXAMINER MFM W[facility] [place] [phone] 03/11/2025 11:10 AM RAMAKRISHNA CORLEY [place] [phone] Precautions: Reviewed return precautions including vaginal bleeding soaking through a pad an hour for 2 consecutive hours, increasing or severe abdominal pain, intractable nausea/vomiting. New or adjusted home medications: none Other recommendations/instructions: Follow-up with Urogynecology outpatient. Kervin Gardiner [facility]09-20-2025 NoteHNO ID: [id number] Author: KERVIN GARDINER DO Service: Obstetrics Author Type: Resident Type: Progress Notes Filed: 02/13/2025 14:39 Note Text: 1325: Completed TVUS. Concern for possible funneling with contractions. 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 Advised to encourage hydration and that no other intervention indicated at this time. Kervin Gardiner DO PGY-1 February 13, 2025 1:49 [facility]09-20-2025 NoteHNO ID: [id number] Author: MARIAJOSE MONTANEZ MD Service: Obstetrics Author [...] found under the Get Images tab in [employer]. SIGNATURE: Kervin Gardiner DO PATIENT NAME: Pal Nicholas DATE: February 13, 2025 TIME: 1:41 [facility]09-20-2025 NoteHNO ID: [id number] Author: RNOALD COOPER RN Service: Nursing Author Type: Registered Nurse Type: Progress Notes Filed: 02/13/2025 10:59 Note Text: Bladder scanner not recognizing bladder probe. After troubleshooting, not able to use. Dr. Montanez aware.[facility]09-20-2025 NoteHNO ID: [id number] Author: MARIAJOSE MONTANEZ MD Service: Obstetrics Author [...] discharge. 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- small amount of yellow / white discharge [...] Test Lynnette Tapia APRN.CNM documented in this encounterOhiohealth [facility]09-12-2025 History and physical note Author Lynnette Tapia [facility] Note Date/Time February 05, 2025 5:47pm [facility] Medical Records Department [address] [place] [address] OB Triage Physician Note 02/05/25 1742 MR#: [id number] Acct: [id number] Name: PAL NICHOLAS Rep #:[id number] : 2005 19 From: Lynnette Tapia CNM PCP: Care Physician,No Primary Status :REG CLI Y Location: [place] [address] HPI - General General Chief Complaint: ctx's HPI Narrative PAL NICHOLAS, is a 19 F at 23 weeks gestation who presents back to triage for cramping. Seen and evaluated last night in triage and started on Macrobid 100 mg PO BID for UTI. Maternal Data Information AMARI Calculator Estimated Delivery Date Method Current WG Current Estimate 05/31/25 Manual 23w 4d [facility] Medical History (Updated 02/05/25 @ 00:00 [...] Suprapubic pain: (3) History of UTI: (4) [place] Zar[place]za' contraction: COMMENT: cervix closed (5) 23 [...] Tapia; No Primary Care Physician ~ Signed [facility] Work Phone: 1(389) 807-566109-12-2025 History and physical note [facility] Medical Records Department [address] [place] [address] OB Triage Physician Note 02/05/251741 MR#: [id number] Acct: [id number] Name: PAL NICHOLAS Rep #:[id number] : 2005 19 From: Lynnette Tapia CNM PCP: Care Physician,No Primary Status :REG CLI Y Location: [place] [address] HPI - General General Chief Complaint: ctx's [...] Suprapubic pain: (3) History of UTI: (4) [place]' contraction: COMMENT: cervix closed (5) 23 weeks gestation of : PLAN: Plan Positive movements Increase fluids CE - closed/ unchanged Continue taking Macrobid 100 mg Po BID- did not take dose today D/C home with follow up in office 02/05/25 1747 ts CNM> Date _ Lynnette Tapia CNM Cosigner Signature (if applicable): Date CC: HUMPHREY Tapia; No Primary Care Physician ~ Signed [facility]09-12-2025 Telephone encounter Note* Telephone Encounter - Jocelyne [...] for evaluation. L&D notified. Jocelyne Black RN [facility]09-12-2025 Miscellaneous Notes* Telephone Encounter - Jocelyne [...] notified. Jocelyne Black RN documented in this encounterOhiohealth [facility]ide [facility]09-12-2025 History and physical note Author Ramakrishna Corley [facility] Note Date/Time February 05, 2025 12:03am [facility] Medical Records Department [address] [place] [address] OB Triage Physician Note 02/04/25 6065 MR#: [id number] Acct: [id number] Name: PAL NICHOLAS Rep #:[id number] : 2005 19 From: Ramakrishna Corley DO PCP: Care Physician,No Primary Status :REG CLI Y Location: [place] [address]-1 [facility] General Date of Service: 02/04/25 Chief Complaint: ctx's HPI Narrative PAL NICHOLAS, is a 19 F who presents ctx's. She states she has had contractions and abdominal pain for 1-2 weeks. Went to [facility] 2 weeks agofor this and had a [...] or lof. No constipation or diarrhea. [facility] Medical History (Updated 02/05/25 @ 00:00 [...] (1) 23 weeks gestation of : (2) [place]' contraction: COMMENT: cervix closed PLAN: Cervix [...] ; No Primary Care Physician ~ Signed [facility] Work Phone: 1(961) 596-194109-12-2025 History and physical note [facility] Medical Records Department [address] [place] [address] OB Triage Physician Note 02/04/25 6702 MR#: [id number] Acct: [id number] Name: PAL NICHOLAS Rep #: : 2005 19 From: Ramakrishna Corley DO PCP: Care Physician,No Primary Status :REG CLI Y Location: [address] [facility] - General General Date of Service: 02/04/25 Chief Complaint: ctx's HPI Narrative PAL NICHOLAS, is a 19 F who presents ctx's. She states she has had contractions and abdominalpain for 1-2 weeks. Went to [facility] 2 weeks agofor this and had a [...] or lof. No constipation or diarrhea. [facility] Medical History (Updated 02/05/25 @ 00:00 [...] (1) 23 weeks gestation of : (2) [place]' contraction: COMMENT: cervix closed PLAN: Cervix [...] ; No Primary Care Physician ~ Signed [facility]09-09-2025 History and physical note [facility] Medical Records Department [address] [place] [address] OB Triage Physician Note 02/02/25 2336 MR#: [id number] Acct: [id number] Name: SARAHY KAURDYLONDALE RAMOS Rep #:[id number] : 2005 19 From: Magda Aragon MD PCP: Care Physician,No Primary Status :REG CLI Y Location: [place] [address]-1 HPI - General General Date of Admission: [...] (1) 23 weeks gestation of : (2) [place]' contraction: COMMENT: cervix closed 02/02/25 5828 in MD> Date _ Magda Aragon MD Cosigner Signature (if applicable): Date CC: Dr. Magda Aragon MD; No Primary Care Physician ~ Signed [facility]09-09-2025 Evaluation note* Diagnosis Onset Date Resolution Status Admit Date 23 weeks gestation of acute February 02 025 8:50pm [place] Zaragoza' contraction acute February 02, 2025 8:50pm [facility] Work Phone: 1(542) 626-287709-09-2025 Evaluation note* Diagnosis Onset Date Resolution Status Admit Date 23 weeks gestation of acute February 02 025 8:50pm [place]' contraction acute February 02, 2025 8:50pm 23 weeks gestation of acute February 04, 2025 10:13pm [place]' contraction acute February 04, 2025 10:13pm Dysuria acute January 10:13pm History of UTI acute February 04, 2025 10:13pm Suprapubic pain acute February 04, 2025 10:13pm [facility] Work Phone: 1([phone]) 913-119209-09-2025 Evaluation note* Diagnosis Onset Date Resolution Status Admit Date 23 weeks gestation of acute February 02 8:50pm [place]' contraction acute February 02, 2025 8:50pm 23 weeks gestation of acute February 04, 2025 10:13pm [place]' contraction acute February 04, 2025 10:13pm Dysuria acute January 10:13pm History of UTI acute February 04, 2025 10:13pm Suprapubic pain acute February 04, 2025 10:13pm Dysuria acute January 9:49pm Suprapubic pain acute February 13, 2025 9:49pm [facility] Work Phone: 1([phone]) 781-465809-09-2025 Evaluation note* Diagnosis Onset Date Resolution Status Admit Date 23 weeks gestation of acute February 02 8:50pm [place]' contraction acute February 02, 2025 8:50pm 23 weeks gestation of acute February 04, 2025 10:13pm [place]' contraction acute February 04, 2025 10:13pm Dysuria acute January 10:13pm History of UTI acute February 04, 2025 10:13pm Suprapubic pain acute February 04, 2025 10:13pm Dysuria acute January 9:49pm Suprapubic pain acute February 13, 2025 9:49pm Threatened labor acute February 23, 2025 8:00pm [facility] Work Phone: 1(294) 311-462109-09-2025 Miscellaneous Notes* Quick Notes - Lester Phillips MD - 02/02/2025 2:25 PM EDT KJ - S: Dylonynne denies contractions or vaginal bleeding. Patient reports increased discharge with possible LOF. Also would like checked for a UTI,. O: 23w1d, see flow sheet SENSITIVE EXAM: The sensitive examination was discussed with the Patient or Patient's Authorized Typo Machine Operator. As applicable, any other physician, advance practice provider, medical student, or other health professional student that will be observing or involved in the sensitive examination for educational or training purposes was discussed with the Patient or Authorized Typo Machine Operator. The Patient or Authorized Typo Machine Operator has agreed to proceed with the sensitive examination. (Sensitive examination includes inspection and/or palpation of the breasts, pelvis, prostate and anorectal regions). SSE: normal vagina, cervix closed negative pool/fern/nitrazine A/P: Assessment & Plan Vaginal discharge during , antepartum (HCC) Orders: UA DIP, URINE (POC) Patient reassured on normal vaginal discharge. Follow up as scheduled. Lester Phillips MD documented in this encounterOhio[facility]09-09-2025 Progress note* Quick Notes - Lester Phillips MD - 02/02/2025 2:25 PM EDT KJ - S: Robynne denies contractions or vaginal bleeding. Patient reports increased discharge with possible LOF. Also would like checked for a UTI,. O: 23w1d, see flow sheet SENSITIVE EXAM: The sensitive examination was discussed with the Patient or Patient's Authorized Typo Machine Operator. As applicable, any other physician, advance practice provider, medical student, or other health professional student that will be observing or involved in the sensitive examination for educational or training purposes was discussed with the Patient or Authorized Typo Machine Operator. The Patient or Authorized Typo Machine Operator has agreed to proceed with the sensitive examination. (Sensitive examination includes inspection and/or palpation of the breasts, pelvis, prostate and anorectal regions). SSE: normal vagina, cervix closed negative pool/fern/nitrazine A/P: Assessment & Plan Vaginal discharge during , antepartum (HCC) Orders: UA DIP, URINE (POC) Patient reassured on normal vaginal discharge. Follow up as scheduled. Lester Phillips MD [facility]09-09-2025 Telephone encounter Note* Telephone Encounter - Magda Hagen RN - 02/02/2025 11:11 AM EDT Patient called in to the office. Appointment given today. Magda Hagen RN [facility]09-09-2025 Miscellaneous Notes* Telephone Encounter - Magda Hagen RN - 02/02/2025 11:11 AM EDT Patient called in to the office. Appointment given today. Magda Hagen RN documented in this encounterOhiohealth [facility]08-27-2025 Telephone encounter Note * Telephone Encounter - Jocelyne Black RN - 01/20/2025 11:33 AM EDT Order signed and faxed. Jocelyne Black RN [facility]08-27-2025 Miscellaneous Notes* Telephone Encounter - Jocelyne Black RN - 01/20/2025 11:33 AM EDT Order signed and faxed. Jocelyne Black RN * Telephone Encounter - Isaura Pereira RN - 01/18/2025 8:45 AM EDT Breast pump order received from [employer]. To CP to sign. Isaura Pereira RN documented in this encounterOhiohealth Riverside [facility] Hospital08-27-2025 NoteHNO ID: [id number] Author: KARINA SALDAÑA MD Service: ? Author [...] was discussed with the patient or authorized claims service representative. The patient or authorized claims service representative has agreed to proceed with the [...] Making Level: 4 - Moderate Karina Omer [facility]08-27-2025 History of Present illness Narrative* Karina Saldaña [...] was discussed with the patient or authorized claims service representative. The patient or authorized claims service representative has agreed to proceed with the [...] Moderate Karina Omer MD documented in this encounterOhiohealth [facility]ide [facility] Hospital08-27-2025 Progress note* Quick Notes - Karina [...] was discussed with the patient or authorized claims service representative. The patient or authorized claims service representative has agreed to proceed with the [...] patient. - abdominal binder Karina Omer MD [facility]08-27-2025 Miscellaneous Notes* Quick Notes - Karina [...] was discussed with the patient or authorized claims service representative. The patient or authorized claims service representative has agreed to proceed with the [...] binder Karina Omer MD documented in this encounterOhiohealth Riverside [facility] Hospital08-27-2025 Instructions* Patient Instructions* Ana Cristina Fitch MA - 01/20/2025 9:54 AM EDT SEQUENTIAL SCREENINGS The [facility] offers sequential screenings for women who [...] testing. It will require an appointment withour mathematics technician. This is not an ultrasound performed [...] the above symptoms, contact our office at [phone] and ask to speak with anurse. After hours, you can call doctors registry at [phone] OR call [facility] at [phone] ask to have the doctor predator control trapper paged. If you consider this an emergency, dial 9-1-8 or go to your nearest emergency department. NEED HELP? Are you dealing with a violent or abusive relationship? Are you a victim of rape or sexual assult? Call [facility] ([place]) 24 hour Crisis Hotline: 941.599.8297 or 002-316-8063. MANUAL Your Guide to a Healthy manual is now on-line. Visit [email or web address] to download your free copy documented in this encounterOhiohealth Riverside Methodist Hospital08-26-2025 NoteHNO ID: [id number] Author: ARMIDA PENNINGTON RN Service: Nursing Author Type: Registered Nurse Type: Nursing Progress Note Filed: 01/19/2025 00:45 Note Text: Patient returned to [facility] at this time. No distress noted.[facility]08-26-2025 NoteHNO ID: [id number] Author: ARMIDA PENNINGTON RN Service: Nursing Author Type: Registered Nurse Type: Nursing Progress Note Filed: 01/19/2025 00:45 Note Text: Patient taken to CT at this time via wheelchair. RN accompanied patient. No distress noted.[facility]08-25-2025 NoteHNO ID: [id number] Author: CHAD LOYOLA DO Service: Obstetrics Author [...] medical physics group. 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 The patient or authorized claims service representative has agreed to proceed with the [...] 2025 TIME: 9:34 PM PAGER/CONTACT #: [id number] [facility]08-25-2025 Telephone encounter Note* Telephone Encounter - Isaura Pereira RN - 01/18/2025 8:45 AM EDT Breast pump order received from [employer]. To CP to sign. Isaura Pereira RN [facility]08-21-2025 Telephone encounter Note* Telephone Encounter - Ramakrishna Corley MD - 01/14/2025 1:34 PM EDT See result note [facility]08-21-2025 Miscellaneous Notes* Telephone Encounter - Ramakrishna Corley MD - 01/14/2025 1:34 PM EDT See result note documented in this encounterOhiohealth Riverside [facility] Hospital08-18-2025 Note* Addendum Note - Ramakrishna Corley MD - 01/11/2025 3:49 PM EDTAddended by: RAMAKRISHNA CORLEY on: 01/11/2025 03:49 PM Modules accepted: Orders [facility]08-18-2025 Miscellaneous Notes* Addendum Note - Ramakrishna [...] several weeks ago, treated after she wentto [place] triage. Now has dysuria. No vb, lof, [...] wks Ramakrishna Corley DO documented in this encounterOhiohealth Riverside [facility] Hospital08-18-2025 Note* Addendum Note - Priti Sharma MA - 01/11/2025 3:24 PM EDTAddended by: PRITI SHARMA on: 01/11/2025 03:24 PM Modules accepted: Orders [facility]08-18-2025 Progress note* Quick Notes - Ramakrishna Corley MD - 01/11/2025 3:12 PM EDT SW- Lower pelvic cramping and dysuria with a BV infection several weeks ago, treated after she wentto [place] triage. Now has dysuria. No vb, lof, [...] - Rto 4 wks Ramakrishna Corley DO [facility]08-18-2025 Instructions* Patient Instructions* Priti Sharma MA - 01/11/2025 2:59 PM EDT SEQUENTIAL SCREENINGS The [facility] offers sequential screenings for women who [...] testing. It will require an appointment withour mathematics technician. This is not an ultrasound performed [...] the above symptoms, contact our office at [phone] and ask to speak with anurse. After hours, you can call doctors registry at [phone] OR call [facility] at [phone] ask to have the doctor predator control trapper paged. If you consider this an emergency, dial 9-8-7 or go to your nearest emergency department. NEED HELP? Are you dealing with a violent or abusive relationship? Are you a victim of rape or sexual assult? Call [facility] ([facility] 24 hour Crisis Hotline: 983.324.6410 or 047-909-0930. MANUAL Your Guide to a Healthy manual is now on-line. Visit [email or web address] to download your free copy documented in this encounterOhiohealth Riverside [facility] Hospital08-15-2025 Telephone encounter Note * Telephone Encounter - Kari Abebe - 01/08/2025 2:39 PM EDT Scheduled 02/05/[address] Burns. Kari Abebe [facility]08-15-2025 Miscellaneous Notes* Telephone Encounter - Kari Abebe - 01/08/2025 2:39 PM EDT Scheduled 02/05/[address] Burns. Kari Abebe * Telephone Encounter - Ej Rodriguez MD - 01/07/2025 12:40 PM EDT Patient was seen by resident but 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 and delivery she is and carries diagnosis of Myles-Danlos syndrome and POTS. She needs a new patient general cardiology appointment in the next 1 to 4 weeks. Please try to arrange this. If there are no spots or anyone let me know thanks Ej Rodriguez MD documented in this encounterOhiohealth [facility]ide [facility]08-14-2025 Telephone encounter Note * Telephone Encounter - Ej Rodriguez MD - 01/07/2025 12:40 PM EDT Patient was seen by resident but 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 and delivery she is and carries diagnosis of Myles-Danlos syndrome and POTS. She needs a new patient general cardiology appointment in the next 1 to 4 weeks. Please try to arrange this. If there are no spots or anyone let me know thanks Ej Rodriguez MD [facility] Work Phone: 1(946) 120-344108-14-2025 Telephone encounter Note* Telephone Encounter - Jocelyne Black RN - 01/07/2025 10:35 AM EDT Patient was seen at [facility] last night. She has OB and MFM appointment on Saturday. Jocelyne Black RN [facility]08-14-2025 Miscellaneous Notes* Telephone Encounter - Jocelyne Black RN - 01/07/2025 10:35 AM EDT [facility] Hospital last night. She has OB and [...] 01/05 telephone notes. Patient was seen at [facility] OB ED triage on 01/04. The diarrhea has resolved. Advised that she go back to [facility] as the office is closing. Patient asked for an appointment tomorrow instead because of transportation. No available appointments. Advised that she should be evaluated today in case she is having labor. Voiced understanding and believes she could have a friend take her. 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 The patient or authorized claims service representative has agreed to proceed with the [...] normal, oropharynx (more content not included)...[facility]08-13-2025 Telephone encounter Note* Telephone Encounter - [...] 01/05 telephone notes. Patient was seen at [facility] OB ED triage on 01/04. The diarrhea has resolved. Advised that she go back to [facility] as the office is closing. Patient asked for an appointment tomorrow instead because of transportation. No available appointments. Advised that she should be evaluated today in case she is having labor. Voiced understanding and believes she could have a friend take her. CAROLINA Hagen RN [facility]08-12-2025 Telephone encounter Note* Telephone Encounter - Jocelyne Black RN - 01/05/2025 12:19 PM EDT Patient notified and voiced understanding. Jocelyne Black RN [facility]08-12-2025 Miscellaneous Notes* Telephone Encounter - Jocelyne Black RN - 01/05/2025 12:19 PM EDT Patient notified and voiced understanding. Jocelyne Black RN * Telephone Encounter - Lester Phillips MD - 01/05/2025 12:07 PM EDT Patient was seen by Mitesh Kulkarni while at [facility]. I recommend supportive care with hydration, potassiumrich foods such as bananas and rest. Agree that after a GI illness it can take several days to feelbetter. Please keep current appointment on Saturday. Lester Phillips MD * Telephone Encounter - Magda Hagen RN - 01/05/2025 11:34 AM EDT 19w1d See 01/04 phone note. Patient went to [facility] OB ED last night. [facility] notes available to review. Patient was prescribed [...] feel completely confident in the diagnosis from [facility]. Please advise. Magda Hagen RN documented in this encounterOhiohealth [facility]ide [facility]08-12-2025 Telephone encounter Note * Telephone Encounter - Lester Phillips MD - 01/05/2025 12:07 PM EDT Patient was seen by Mitesh Kulkarni while at [facility]. I recommend supportive care with hydration, potassiumrich foods such as bananas and rest. Agree that after a GI illness it can take several days to feelbetter. Please keep current appointment on Saturday. Lester Phillips MD [facility] Work Phone: 1(355) 492-882808-12-2025 Telephone encounter Note* Telephone Encounter - Magda Hagen RN - 01/05/2025 11:34 AM EDT 19w1d See 01/04 phone note. Patient went to [facility] OB ED last night. [facility] notes available to review. Patient was prescribed [...] feel completely confident in the diagnosis from [facility]. Please advise. Magda Hagen, RN [facility]08-12-2025 Telephone encounter Note* Telephone Encounter - Jayla Keller MD - 01/05/2025 11:17 AM EDT Images from the original note were not included. Patient called requesting Rx for potassium and imodium after being seen in the OB ED 1 day ago. Jayla Keller MD [facility]08-12-2025 Miscellaneous Notes* Telephone Encounter - Jayla Keller MD - 01/05/2025 11:17 AM EDT Images from the original note were not included. Patient called requesting Rx for potassium and imodium after being seen in the OB ED 1 day ago. 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 The patient or authorized claims service representative has agreed to proceed with the [...] course of (more content not included)...[facility]08-11-2025 Telephone encounter Note* Telephone Encounter - [...] states this is stayingthe same since at [facility] 12/22/24. Last few weeks, Pt states extremely watery discharge. Went to [facility] at that time d/t havingsharp cervical pain & was treated for BV. Feels hydrated/Has been drinking liquid IV. Does havesome burning on urination & was seen on 12/30/24 in office-UA completed and TRACE protein and TRACE leukocytes. Advised Pt that since pain has worsened as the day as gone on that it would be best to go to [facility] OB triage to be evaluated as no appts available in office at this time. Pt did state she'd feel more comfortable going there and that is essentially why she called as she wanted to discuss with a nurse. Pt states her ride will not be able to pick her up for another 30 minutes, but Pt is agreeable to go to [facility]. Dr. Aragon notified. Maite Peterson RN [facility]08-11-2025 Miscellaneous Notes* Telephone Encounter - Maite [...] states this is stayingthe same since at [facility] 12/22/24. Last few weeks, Pt states extremely watery discharge. Went to [facility] at that time d/t havingsharp cervical pain & was treated for BV. Feels hydrated/Has been drinking liquid IV. Does havesome burning on urination & was seen on 12/30/24 in office-UA completed and TRACE protein and TRACE leukocytes. Advised Pt that since pain has worsened as the day as gone on that it would be best to go to [facility] OB triage to be evaluated as no appts available in office at this time. Pt did state she'd feel more comfortable going there and that is essentially why she called as she wanted to discuss with a nurse. Pt states her ride will not be able to pick her up for another 30 minutes, but Pt is agreeable to go to [facility]. Dr. Aragon notified. Maite Peterson, RN documented in this encounterOhiohealth Riverside [facility] Hospital08-04-2025 Miscellaneous Notes* Quick Notes - Lynnette Tapia APRN.CNM - 12/28/2024 11:15 AM EDT Patient is at 18 weeks gestation here for NOB. She is new to office and has received adequateprenatal care in [place]. Awaiting records. Lynnette Tapia APRN.CNM documented in this encounterOhiohealth Riverside [facility] Hospital08-04-2025 Progress note* Quick Notes - Lynnette Tapia APRN.CNM - 12/28/2024 11:15 AM EDT Patient is at 18 weeks gestation here for NOB. She is new to office and has received adequateprenatal care in [place]. Awaiting records. Lynnette Tapia APRN.CNM [facility]08-04-2025 NoteHNO ID: [id number] Author: LYNNETTE TAPIA APRN.CNM Service: ? Author Type: Pizzamaker Type: Progress Notes Filed: 12/28/2024 13:23 Note Text: Track Sweeper offered: Patient declines. INITIAL OB ASSESSMENT HPI: [...] all that apply)? Centering (group care classes); Spot Welder Body Assembly; Pizzamaker care Social History: Do you have any [...] Partner: Name: Zaki Steven Age: 18 Occupation: [employer] Gender: Male PAST MEDICAL HISTORY Diagnosis Date [...] Itching GENITOURINARY: Negative f (more content not included)...[facility]08-04-2025 History of Present illness Narrative* Lynnette Tapia APRN.CN - 12/28/2024 8:36 AM EDT Track Sweeper offered: Patient declines. INITIAL OB ASSESSMENT HPI: [...] all that apply)? 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 As applicable, any other physician, advance practice provider, medical student, or other health professional student that will be observing or involved in the sensitive examination for educational or training purposes was discussed with the Patient or Authorized Typo Machine Operator. The Patient or Authorized Typo Machine Operator has agreed to proceed with the [...] Your guide to a health and the Welder Tack. Discussed Centering group- MAY BE INTERESTED 2) [...] prirving. Lynnette Tapia APRN.CNM documented in this encounterOhiohealth Riverside [facility] Hospital08-04-2025 Instructions* Patient Instructions* Ralph Molina LPN - 12/28/2024 8:36 AM EDT Please select the following link to access the [facility] Your Guide to a Healthy . [email or web address] documented in this encounterOhiohealth Riverside Methodist Hospital08-01-2025 Telephone encounter Note * Telephone Encounter - Isaura Pereira RN - 12/25/2024 12:13 PM EDT Records received from [facility] in [place]. In chart prep binder for NOB appt on 12/28 with CP. Isaura Pereira RN [facility]08-01-2025 Miscellaneous Notes* Telephone Encounter - Isaura Pereira RN - 12/25/2024 12:13 PM EDT Records received from [facility] in [place]. In chart prep binder for NOB appt on 12/28 with CP. Isaura Pereira RN documented in this encounterOhiohealth Riverside Methodist Hospital07-29-2025 NoteHNO ID: [id number] Author: MARK FOREMAN MD Service: Obstetrics Author [...] and recurrent UTIs. She recently moved from [place] and is establishing care with [facility]. Pt states her abdominal pain is intermittent and began around 6 pm yesterday. 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 The patient or authorized claims service representative has agreed to proceed with the [...] a course (more content not included)...[facility]07-29-2025 Telephone encounter Note* Telephone Encounter - Magda Hagen RN - 12/22/2024 4:23 PM EDT Patient notified. Magda Hagen RN [facility]07-29-2025 Miscellaneous Notes* Telephone Encounter - Magda [...] urgent issue or go to ANGELA at [facility] or see if there is a sooner NOB elsewhere to get her established then f/u here. Karina Addison MD * Telephone Encounter - Magda Hagen RN - 12/22/2024 12:26 PM EDT New WHI OB seen at [facility] ER yesterday for pelvic pain. LMP 08/24/24. Approximately 17w1d. Patient calling because she still continues to have pelvic pain and pressure. Pain rate of 5-6. Taking Tylenol and using heat with no relief. States when she went to the ER her pain was 8-9. Denies LOF or VB. Per [facility] ER report: Discussed the case with on-call INSPECTOR PAWNSHOP DETAIL for [facility] Dr. Aragon who states that she [...] of medical records from her previous OB. [facility] ER report to RR to review. Magda Hagen RN documented in this encounterOhiohealth Riverside Methodist Hospital07-29-2025 Telephone encounter Note * Telephone Encounter - Karina Addison MD - 12/22/2024 3:38 PM EDT Agree w/ keep scheduled appointment. Make sure we have US results/labs for NOB. If infection ruled out and no bleeding would recommend stretching, tylenol and warm baths prn. Can return to ED if urgent issue or go to ANGELA at [facility] or see if there is a sooner NOB elsewhere to get her established then f/u here. Karina Addison MD [facility] Work Phone: 1(587) 198-314807-29-2025 Telephone encounter Note* Telephone Encounter - Magda Hagen RN - 12/22/2024 12:26 PM EDT New WHI OB seen at [facility] ER yesterday for pelvic pain. LMP 08/24/24. Approximately 17w1d. Patient calling because she still continues to have pelvic pain and pressure. Pain rate of 5-6. Taking Tylenol and using heat with no relief. States when she went to the ER her pain was 8-9. Denies LOF or VB. Per [facility] ER report: Discussed the case with on-call INSPECTOR PAWNSHOP DETAIL for [facility] Dr. Aragon who states that she [...] of medical records from her previous OB. [facility] ER report to RR to review. Magda Hagen RN [facility]07-28-2025 Discharge summary [facility] Medical Records Department [address] [place] [address] Emergency Department Summary 12/21/24 MR#: [id number] Acct: [id number] Name: PAL NICHOLAS Rep #:[id number] : 2005 19 From: Aftab Mendoza DO [...] management. States that she is following with [facility] OB. Patient denies any vaginal spotting or bleeding. [facility] Medical History (Updated 12/21/24 @ 23:39 [...] of infection. Discussed the case with on-call INSPECTOR PAWNSHOP DETAIL for [facility] Dr. Aragon who states that she [...] 72.9 H Lymph % (Auto) 18.4 L [place] % (Auto) 6.2 Eos % (Auto) 1.4 [...] Clarity Clear Urine pH 6.5 Ur Specific [place] 1.010 Urine Protein Negative Urine Glucose (UA) [...] - Activity Restrictions/Additional Instructions: Follow-up with your INSPECTOR PAWNSHOP DETAIL at your scheduled appointment on Saturday. Your blood work did not show any acute findings your urine did not show any evidence infection. Return with worsening symptoms or any concerns. Ensure you are hydrating plenty with water. Print Language: Danish Disposition Disposition: Home, Self Care What to do if you have Problems For any increased pain, shortness of breath, bleeding, nausea or vomiting, chestpain, or any unexpected problems, contact your Primary Care Provider. Call [facility] ([phone]) or report tothe closest Emergency Room. Call 911 if necessary. 12/21/24 3396 Cosigner Signature (if applicable): CC: No Primary Care Physician ~ Signed [facility]07-28-2025 Discharge summary Author Aftab Mendoza [facility] Note Date/Time December 21, 2024 11:3 9pm [facility] Medical Records Department [address] [place] [address] Emergency Department Summary 12/21/24 MR#: [id number] Acct: [id number] Name: PAL NICHOLAS Rep #:[id number] : 2005 From: Aftab Mendoza DO PCP: [...] management. States that she is following with [facility] OB. Patient denies any vaginal spotting or bleeding. [facility] Medical History (Updated 12/21/24 @ 23:39 [...] of infection. Discussed the case with on-call INSPECTOR PAWNSHOP DETAIL for [facility] Dr. Aragon who states that she [...] 72.9 H Lymph % (Auto) 18.4 L [place] % (Auto) 6.2 Eos % (Auto) 1.4 [...] Clarity Clear Urine pH 6.5 Ur Specific [place] 1.010 Urine Protein Negative Urine Glucose (UA) [...] - Activity Restrictions/Additional Instructions: Follow-up with your INSPECTOR PAWNSHOP DETAIL at your scheduled appointment on Saturday. Your blood work did not show any acute findings your urine did not show any evidence infection. Return with worsening symptoms or any concerns. Ensure you are hydrating plenty with water. Print Language: Danish Disposition Disposition: Home, Self Care What to do if you have Problems For any increased pain, shortness of breath, bleeding, nausea or vomiting, chestpain, or any unexpected problems, contact your Primary Care Provider. Call [facility] ([phone]) or report to the closest Emergency Room. Call 911 if necessary. 12/21/24 9269 <Electronically signed by Aftab Mendoza DO> Cosigner Signature (if applicable): CC: No Primary Care Physician ~ Signed [facility] Work Phone: 1(810) 848-154907-28-2025 Hospital Discharge instructionsAdditional Instructions Follow-up with your INSPECTOR PAWNSHOP DETAIL at your scheduled appointment on Saturday. Your blood work did not show any acute findings your urine did not show any evidence infection. Return with worsening symptoms or any concerns. Ensure you are hydrating plenty with water.[facility] Work Phone: 1(771) 648-617107-08-2025 Telephone encounter Note* Telephone Encounter - Maria Alejandra Kay RN - 12/01/2024 10:27 AM EDT Name and verified. Patient wishes to transfer to F for OB care. AMARI? 05/31/25 Gestational age? 14w1d Patient aware to sign up for My Chart so she can receive the palliative care nurse practitioner messages. What facility is she transferring from? [facility] [employer] in [place] Moving to [place] in 2 weeks and will be approx [...] would the patient like to establish in? [place] Will route this encounter to the desired office. Maria Alejandra Kay RN [facility]07-08-2025 Miscellaneous Notes* Telephone Encounter - Maria Alejandra Kay, RN - 12/01/2024 10:27 AM EDT Name and verified. Patient wishes to transfer to [facility] for OB care. AMARI? 05/31/25 Gestational age? 14w1d Patient aware to sign up for My Chart so she can receive the palliative care nurse practitioner messages. What facility is she transferring from? 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 Person calling: self Return call to: self Call patient at: [phone] (cell), it is OK to leave message Payor: ANDREWSEM / Plan: BLUE CARD PPO OOS / Product Type: PPO / Rica Garcia documented in this encounterOhiohealth Riverside Methodist Hospital07-08-2025 Telephone encounter Note * Telephone Encounter - Maria Alejandra Kay RN - 12/01/2024 10:09 AM EDT Call placed to patient to triage for new OB appt. Left message for patient to call back Maria Alejandra Kay RN [facility]07-08-2025 Telephone encounter Note* Telephone Encounter - Maria Alejandra Kay RN - 12/01/2024 8:38 AM EDT Call placed to patient to triage for new OB appt. No answer, will try later Maria Alejandra Kay RN [facility]07-08-2025 Telephone encounter Note* Telephone Encounter - Maria Alejandra Kay RN - 12/01/2024 8:37 AM EDT ----- Message from Rica Pendleton sent at 11/30/2024 4:05 PM EDT ----- Regarding: New/[facility] OB 16 weeks Patient has been identified by name and Date of : Yes Patient: Pal Nicholas Date of : 2005 Provider for this encounter : [facility] [employer] CLAIM EXAMINER [employer] Reason for call: New OB patient (16 weeks as of 11/30/24), MEL[place] from [place] Was an appointment scheduled: No Reason for requesting visit (RFV/signs and symptoms/diagnosis) : Establish with OB at [facility] for continuation of care. Person calling: self Return call to: self Call patient at: [phone] (cell), it is OK to leave message Payor: ANTHEM / Plan: BLUE CARD PPO OOS / Product Type: PPO / Rica Garcia [facility]07-01-2005 History and physical note [facility] Medical Records Department [address] [place] [address] OB Triage Physician Note 02/13/25 2321 MR#: [id number] Acct: [id number] Name: PAL NICHOLAS Rep #:[id number] : 2005 19 From: Magda Aragon MD PCP: Care Physician,No Primary Status :DEP CLI Y Location: [facility] HPI - General General Date of Service: 02/13/25 Chief Complaint: pain HPI Narrative PAL NICHOLAS, is a 19 F who presents with bladder pain and unable to void.Was in Triage at [facility] early and had straight cath for [...] MD; No Primary Care Physician ~ Signed [facility] noteNo assessment information available [facility] Work Phone: Evaluation note* Diagnosis Visit for screening ([facility])- Primary Unspecified screening 18 weeks gestation of ([facility]) state, incidental Encounter for supervision of high risk in second trimester, antepartum ([facility]) 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HCC) POTS (postural orthostatic tachycardia syndrome) Tachycardia, unspecified 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 Screening for STD (sexually transmitted disease) Screening examination for venereal disease Abdominal pain during in second trimester ([facility]) Bacterial vaginosis Vaginitis and vulvovaginitis, unspecified documented in this encounter [facility]* Diagnosis Abdominal pain affecting ([facility]) Diarrhea Hypokalemia Hypopotassemia Headache Chest pain during (HCC) Vaginal discharge during (HCC) Dizziness Dizziness and giddiness Chronic hypertension affecting ([facility]) 19 weeks gestation of ([facility]) state, incidental Pelvic pressure in ([facility]) Other specified complication, antepartum Bacterial vaginosis- Primary Vaginitis and vulvovaginitis, unspecified 20 weeks gestation of ([facility]) state, incidental Burning with urination Dysuria Palpitations Other fatigue Weakness Other malaise and fatigue Encounter for supervision of normal first in second trimester ([facility]) Supervision of normal first documented in this encounter [facility]* Diagnosis Abdominal pain affecting (HCC) Diarrhea Hypokalemia Hypopotassemia Headache Chest pain during (HCC) Vaginal discharge during (HCC) Dizziness Dizziness and giddiness Chronic hypertension affecting ([facility]) 19 weeks gestation of ([facility]) state, incidental Pelvic pressure in ([facility]) Other specified complication, antepartum POTS (postural orthostatic tachycardia syndrome)- Primary Tachycardia, unspecified Visit for screening ([facility]) Unspecified screening 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HCC) Chronic hypertension affecting ([facility]) documented in this encounter [facility]* Diagnosis Abdominal pain affecting (HCC) Diarrhea Hypokalemia Hypopotassemia Headache Chest pain during (HCC) Vaginal discharge during (HCC) Dizziness Dizziness and giddiness Chronic hypertension affecting (HCC) Pelvic pressure in (HCC) Other specified complication, antepartum Dysuria- Primary documented in this encounter [facility] note* Diagnosis Diarrhea Hypokalemia Hypopotassemia Headache Chest pain during (HCC) Vaginal discharge during (HCC) Dizziness Dizziness and giddiness Pelvic pressure in (HCC) Other specified complication, antepartum Chronic hypertension affecting (HCC) Abdominal pain affecting (HCC) 21 weeks gestation of (HCC) state, incidental Encounter for supervision of normal first in second trimester ([facility])- Primary Supervision of normal first Vaginal discharge Leukorrhea, not specified as infective 21 weeks gestation of (HCC) state, incidental Abdominal pain affecting ([facility]) * Assessment & Plan Note - [...] - abdominal binder documented in this encounter [facility] note* Diagnosis Diarrhea Hypokalemia Hypopotassemia Headache Chest pain during (HCC) Vaginal discharge during (HCC) Dizziness Dizziness and giddiness Pelvic pressure in (HCC) Other specified complication, antepartum Chronic hypertension affecting (HCC) Abdominal pain affecting (HCC) 21 weeks gestation of (HCC) state, incidental Encounter for supervision of normal first in second trimester ([facility])- Primary Supervision of normal first Vaginal discharge Leukorrhea, not specified as infective 21 weeks gestation of (HCC) state, incidental Abdominal pain affecting (HCC) Vaginal discharge during , antepartum ([facility])- Primary * Assessment & Plan Note - Lester Phillips MD - 02/02/2025 2:28 PM EDTAssociated Problem(s): Vaginal discharge during (HCC) Orders: UA DIP, URINE (POC) [facility] Diagnosis Diarrhea Hypokalemia Hypopotassemia Headache Chest pain during ([facility]) Vaginal discharge during ([facility]) Dizziness Dizziness and giddiness Pelvic pressure in ([facility]) Other specified complication, antepartum Chronic hypertension affecting ([facility]) Abdominal pain affecting ([facility]) 21 weeks gestation of ([facility]) state, incidental Encounter for supervision of normal first in second trimester ([facility])- Primary Supervision of normal first Vaginal discharge Leukorrhea, not specified as infective 21 weeks gestation of ([facility]) state, incidental Abdominal pain affecting ([facility]) Vaginal discharge during , antepartum ([facility])- Primary Encounter for supervision of normal first in second trimester ([facility])- Primary Supervision of normal first 24 weeks gestation of ([facility]) state, incidental Screening for diabetes mellitus Vaginal discharge during in second trimester ([facility]) [facility] Magda Aragon [facility] Note Date/Time February 02, 2025 11:38pm [facility] Medical Records Department [address] [place] [address] OB Triage Physician Note 02/02/25 2336 MR#: [id number] Acct: [id number] Name: PAL NICHOLAS Rep #:[id number] : 2005 19 From: Magda Aragon MD PCP: Care Physician,No Primary Status :REG CLI Y Location: [address] HPI - General General Date of Admission: 02/02/25 Date of Service: 02/02/25 Chief Complaint: cramping HPI Narrative PAL NICHOLAS, is a 19 F who presents cramping. No bleeding. Some movement.Was seen in office today with normal discharge. Maternal Data Information Final AMARI: 05/31/25 Gestational age: 22 [facility] Medical History (Updated 02/02/25 @ 23:38 [...] (1) 23 weeks gestation of : (2) [place]' contraction: COMMENT: cervix closed 02/02/25 [id number] <Electronically signed by Magda Esparza in > Date _ Magda Aragon MD Cosigner Signature (if applicable): Date CC: Dr. Magda Aragon MD; No Primary Care Physician ~ Signed [facility] Work Phone: History and physical note Author Ramakrishna Corley [facility] Note Date/Time February 05, 2025 12:03am [facility] Medical Records Department [address] [place] [address] OB Triage Physician Note 02/04/25 [id number] MR#: [id number] Acct: [id number] Name: PAL NICHOLAS Rep #: : 2005 19 From: Ramakrishna Corley DO PCP: Care Physician,No Primary Status :REG CLI Y Location: [address] General General Date of Service: 02/04/25 Chief Complaint: ctx's HPI Narrative PAL NICHOLAS, is a 19 F who presents ctx's. She states she has had contractions and abdominal pain for 1-2 weeks. Went to [facility] 2 weeks agofor this and had a [...] vb or lof. No constipation or diarrhea. [facility] Medical History (Updated 02/05/25 @ [...] DO; No Primary Care Physician ~ Signed [facility] Work Phone: History and physical note Author Magda Aragon [facility] Note Date/Time February 14, 2025 8:48pm [facility] Medical Records Department [address] [place] [address] OB Triage Physician Note 02/13/25 [id number] MR#: [id number] Acct: [id number] Name: PAL NICHOLAS Rep #: [id number] : 2005 19 From: Magda Aragon MD PCP: Care Physician,No Primary Status :DEP CLI Y Location: [facility] HPI - General General Date of Service: 02/13/25 Chief Complaint: pain HPI Narrative PAL NICHOLAS, is a 19 F who presents with bladder pain and unable to void.Was in Triage at [facility] early and had straight cath for [...] MD; No Primary Care Physician ~ Signed [facility] Work Phone: Reason for referral (narrative)No reason for referral information availableWTriHealth Work Phone: Chief Complaint and Reason for [...] weeks gestation of Bárbara r 2024 8:50pm [place]' contraction January 8:50pm 23 weeks gestation of [place]ár[place] 2024 10:13pm [place]' contraction January 10:13pm Dysuria February 04, [...] weeks gestation of [place]ár[place] r 2024 8:50pm [place]' contraction January 8:50pm 23 weeks gestation [...] weeks gestation of Septembe r 2024 10:13pm [place]' contraction January 10:13pm Dysuria February 04, 2025 10:13pm History of UTI February 04, 2025 10:13pm Suprapubic pain February 04, 2025 10:13pm Dysuria February 13, 2025 9:49pm Suprapubic pain February 13, 2025 9:49pm Threatened labor February 23, 2025 8:00pm Advance Directives No Advanced Directives Records Found Advance Directive Response Recorded Date/ Time Do you have a Healthcare Power of Corporate Vp Advertising & Online? No December 21, 2024 9:54pm Summary Purpose [...] or prosecute any alcohol or drug abuse patient.[facility] the event this information is protected by the Federal Confidentiality of Alcohol and Drug Abuse Patient Records regulations: The Federal rules restrict any use of the information to criminally investigate or prosecute any alcohol or drug abuse patient.[facility] Hospital[facility] the event this information is protected by the Federal Confidentiality of Alcohol and Drug Abuse Patient Records regulations: The Federal rules restrict any use of the information to criminally investigate or prosecute any alcohol or drug abuse patient.[facility] Hospital[facility] the event this information is protected by the Federal Confidentiality of Alcohol and Drug Abuse Patient Records regulations: The Federal rules restrict any use of the information to criminally investigate or prosecute any alcohol or drug abuse patient.[facility] HospitalIn the event this information is protected by the Federal Confidentiality of Alcohol and Drug Abuse Patient Records regulations: The Federal rules restrict any use of the information to criminally investigate or prosecute any alcohol or drug abuse patient.[facility] Hospital[facility] the event this information is protected by the Federal Confidentiality of Alcohol and Drug Abuse Patient Records regulations: The Federal rules restrict any use of the information to criminally investigate or prosecute any alcohol or drug abuse patient.[facility] HospitalIn the event this information is protected by the Federal Confidentiality of Alcohol and Drug Abuse Patient Records regulations: The Federal rules restrict any use of the information to criminally investigate or prosecute any alcohol or drug abuse patient.[facility] HospitalIn the event this information is protected by the Federal Confidentiality of Alcohol and Drug Abuse Patient Records regulations: The Federal rules restrict any use of the information to criminally investigate or prosecute any alcohol or drug abuse patient.[facility] HospitalIn the event this information is protected by the Federal Confidentiality of Alcohol and Drug Abuse Patient Records regulations: The Federal rules restrict any use of the information to criminally investigate or prosecute any alcohol or drug abuse patient.[facility] HospitalIn the event this information is protected by the Federal Confidentiality of Alcohol and Drug Abuse Patient Records regulations: The Federal rules restrict any use of the information to criminally investigate or prosecute any alcohol or drug abuse patient.[facility] HospitalIn the event this information is protected by the Federal Confidentiality of Alcohol and Drug Abuse Patient Records regulations: The Federal rules restrict any use of the information to criminally investigate or prosecute any alcohol or drug abuse patient.[facility] HospitalIn the event this information is protected by the Federal Confidentiality of Alcohol and Drug Abuse Patient Records regulations: The Federal rules restrict any use of the information to criminally investigate or prosecute any alcohol or drug abuse patient.[facility] HospitalIn the event this information is protected [...] or prosecute any alcohol or drug abuse patient.[facility] HospitalIn the event this information is protected by the Federal Confidentiality of Alcohol and Drug Abuse Patient Records regulations: The Federal rules restrict any use of the information to criminally investigate or prosecute any alcohol or drug abuse patient.[facility] HospitalIn the event this information is protected by the Federal Confidentiality of Alcohol and Drug Abuse Patient Records regulations: The Federal rules restrict any use of the information to criminally investigate or prosecute any alcohol or drug abuse patient.[facility] HospitalIn the event this information is protected by the Federal Confidentiality of Alcohol and Drug Abuse Patient Records regulations: The Federal rules restrict any use of the information to criminally investigate or prosecute any alcohol or drug abuse patient.[facility] HospitalIn the event this information is protected by the Federal Confidentiality of Alcohol and Drug Abuse Patient Records regulations: The Federal rules restrict any use of the information to criminally investigate or prosecute any alcohol or drug abuse patient.[facility] HospitalIn the event this information is protected by the Federal Confidentiality of Alcohol and Drug Abuse Patient Records regulations: The Federal rules restrict any use of the information to criminally investigate or prosecute any alcohol or drug abuse patient.[facility] Reason for Visit (unrecogniz ed section and content) Reason Comments Care Coordination Reason Comments OB Pelvic Pain Reason Comments Received Outside Medical Records Reason Comments Care Reason Comments OB Pain Reason Comments OB Vaginal Pressure Reason Onset Date Comments Care 01/11/2025 Reason Comments US Specialty Diagnoses / Procedures Referred By Juan Antonio t Referred To Contact [facility] Diagnoses Visit for screening (HCC) Procedures OBSTETRIC ULTRASOUND WHI US PREG UTERUS AFTER 1ST TRIMEST GESTATION Lynnette Tapia APRN.HUMPHREY [address] [place] [address] Phone: tel: fax: [facility] [address] [place] [address] Referral ID Status Reason Start Date Expiration Date V isits Requested Visits Authorized [id number] Closed Auto-Generate d Referral 12/29/2024 05/26/2025 1 [...] section and content) DATE CREATED AUTHOR 03/09/2025 [facility] DATE CREATED AUTHOR AUTHOR'S ORGANIZ ATION 03/15/2025 [facility] DATE CREATED AUTHOR AUTHOR'S ORGANIZ ATION 03/16/2025 [facility] FOR RECORDS PERTAINING TO PATIENTS WHO [...] BE BASED ON THE PRIMARY CLINICAL RECORDS. [employer] provides no warranty or guarantee of the accuracy or completeness of information in this document.
[2025-03-17 17:43] VITALS: RESP 16; TEMP 36.9
[2025-03-17 18:35] VITALS: BMI 30.2
--- NOTE | 2025-03-17 19:03 | US_ITS ---
PROCEDURE: OB BIOPHYSICAL PROF W/O NST 03/17/2025 REASON FOR EXAM: DECREASED MOVEMENT TECHNIQUE: Procedure Code: USBIOWO Modality: US Procedure: OB BIOPHYSICAL PROF W/O NST FINDINGS Single live intrauterine in cephalic presentation. heart rate 141 bpm. age by LMP: 29 weeks 2 days. Amniotic fluid index measures 13.6 cm, within normal limits. Largest vertical pocket measures 3.4 to 3.7 cm. Placenta is anterior and not low-lying, grade 1. Incidental hypoechoic area seen near 29 cm transverse dimension. breathing movements, gross body movements, tone, and amniotic fluid volume are all normal. Biophysical profile score is 8 out of 8. US/OB Biophysical Prof W/O NST IMPRESSION: Single live intrauterine in cephalic presentation at approximately 29 weeks 2 days. Normal biophysical profile score of 8 out of 8. Normal amniotic fluid volume. Anterior placenta, grade 1, with a small incidental hypoechoic area noted. No sonographic evidence of distress. Reading Location: [id number]
--- NOTE | 2025-03-17 19:03 | US_ITS ---
PROCEDURE: OB BIOPHYSICAL PROF W/O NST 03/17/2025 REASON FOR EXAM: DECREASED MOVEMENT TECHNIQUE: Procedure Code: USBIOWO Modality: US Procedure: OB BIOPHYSICAL PROF W/O NST FINDINGS Single live intrauterine in cephalic presentation. heart rate 141 bpm. age by LMP: 29 weeks 2 days. Amniotic fluid index measures 13.6 cm, within normal limits. Largest vertical pocket measures 3.4 to 3.7 cm. Placenta is anterior and not low-lying, grade 1. Incidental hypoechoic area seen near 29 cm transverse dimension. breathing movements, gross body movements, tone, and amniotic fluid volume are all normal. Biophysical profile score is 8 out of 8. US/OB Biophysical Prof W/O NST IMPRESSION: Single live intrauterine in cephalic presentation at approximately 29 weeks 2 days. Normal biophysical profile score of 8 out of 8. Normal amniotic fluid volume. Anterior placenta, grade 1, with a small incidental hypoechoic area noted. No sonographic evidence of distress. Reading Location: [id number]
[2025-03-17 19:18] LABS: Color, Urine Straw (Yellow); Glucose, Dipstick Normal (Normal); Ketone-Dipstick Negative (Negative); Leukocyte Esterase-Dipstick Negative /ul (Negative); Nitrite-Dipstick Negative (Negative); Occult Blood-Urine Negative /ul (Negative); Protein-Dipstick Negative (Negative); Specific Gravity, Urine 1.020 (1.002-1.030); Urine Bilirubin Dipstick Negative (Negative)
[2025-03-17 19:50] VITALS: PULSE 95; O2SAT 98
[2025-03-17 19:53] VITALS: BP 134/81; PULSE 87
[2025-03-17 19:54] VITALS: RESP 16; TEMP 36.7
--- NOTE | 2025-03-17 20:28 | OB.TRI.NOTE ---
HPI - General General Date of Admission: 03/17/25 Date of Service: 03/17/25 Chief Complaint: DFM HPI Narrative JOSE NICHOLAS, is a 19 F who presents with decreased movement. Has been having on and off contractions since early interventionist hours. No LOF no bleeding. A couple broken variables with contractions. Sent for BPP RAJ WNL 13. BPP 01/01. Received a 1000 cc IVF. Now feeling movement. Reactive tracing Maternal Data Information AMARI Calculator Estimated Delivery Date Method Current WG Current Estimate 05/31/25 Manual 29w 2d Final AMARI: 05/31/25 Gestational age: 29+2 PFSH PFS Medical History (Updated 03/17/25 @ 22:[address] Magda Aragon MD) POTS (postural orthostatic tachycardia syndrome) Myles-Danlos syndrome Home Medications ?Medication ?Instructions ?Recorded ?Last Taken ?Type aspirin 81 mg capsule 81 mg PO DAILY 02/02/25 03/16/25 History vit no.95-ferrous 1 tab PO DAILY 02/02/25 03/16/25 History fumarate 28 mg-folic acid 800 mcg tablet () Allergy/AdvReac Type Severity Reaction Status Date / Time No Known Allergies Allergy Verified 03/13/25 16:53 Social History Smoking Status: Never smoker History 1 Elective abortions Hx Para 0 Spontaneous abortions Hx # Term Pregnancies Ectopic pregnancies Hx # Pregnancies Multiple births # of living children Physical Exam Const alert and oriented x3 General Appearance: cooperative and comfortable HEENT normocephalic Resp normal respiratory effort GI soft to palpation and non-tender Inspection: gravid Extremity normal to inspection Skin no rashes or lesions noted Neuro oriented x3 and CN's II-XII intact bilaterally NST FHR Rate Baby A Baseline: 145 Variability:: Moderate Accelerations:: 15 x 15 Decelerations:: Variable (occasional early in monitoring) NST Reactive:: Yes Uterine Activity:: irregular low frequency Assessment & Plan (1) Decreased movement: QUALIFIERS: Fetus number: single or unspecified fetus Trimester: third trimester Qualified Code(s): O36.8130 - Decreased movements, third trimester, not applicable or unspecified (2) 29 weeks gestation of :
[2025-03-17] MEDS: Lactated Ringers 1,000 ML 999 ML IV (21:16)
== END 2025-03-17 22:25 | disposition home or self-care (01) ==
LOC: WPOUT 17:32 → WP 17:32
PROVIDERS: Referring Provider Obstetrics & Gynecology; Visit Provider Obstetrics & Gynecology
DX: O36.8130 Decreased fetal movements, third trimester, not applicable or unspecified (principal); Z3A.29 29 weeks gestation of pregnancy
CPT/HCPCS: 96360; 59025; 59050; 76819; 81002; 99221; G0378

== ENCOUNTER 2025-03-29 16:35 | Outpatient (CLI) | payer BC, SELFPAY ==
[2025-03-29] VITALS (24 sets, daily range): BP systolic 134; BP diastolic 93; PULSE 106–141; RESP 18; TEMP 36.3; O2SAT 97–99; BMI 30.7
[2025-03-29 18:51] LABS: Color, Urine Yellow (Yellow); Glucose, Dipstick 100 mg/dl (Normal); Ketone-Dipstick Negative (Negative); Leukocyte Esterase-Dipstick Negative /ul (Negative); Nitrite-Dipstick Negative (Negative); Occult Blood-Urine Negative /ul (Negative); Protein-Dipstick 15 mg/dl (Negative); Specific Gravity, Urine 1.015 (1.002-1.030); Urine Bilirubin Dipstick Negative (Negative)
--- NOTE | 2025-03-29 18:58 | OB.TRI.NOTE ---
HPI - General HPI Narrative JOSE NICHOLAS, is a 19 F who presents [ at 31 weeks] Presents with concerns of decreased movement and suprapubic pain. Feeling baby move but less than normal. Having pubic pain and was given pelvic floor therapy referral but unable to make appointment. Denies vaginal bleeding, leakage of fluid, contractions, or urinary complaints. Had a headache yesterday but nothing today. Admits to seeing "white Stars" on and off but not related to positional changes, new in the last few days. Concerns about shortness of breath and chest pain. Maternal Data Information AMARI Calculator Estimated Delivery Date Method Current WG Current Estimate 05/31/25 Manual 31w 0d [facility] Medical History (Updated 03/29/25 @ 19:04 by Patsy March CNM) POTS (postural orthostatic tachycardia syndrome) Myles-Danlos syndrome Home Medications Medication Instructions Recorded Last Taken Type aspirin 81 mg capsule 81 mg PO DAILY 02/02/25 03/16/25 History vit no.95-ferrous 1 tab PO DAILY 02/02/25 03/16/25 History fumarate 28 mg-folic acid 800 mcg tablet () diphenhydramine HCl 25 mg capsule 25 mg PO .PRN 03/29/25 Unknown History (Allergy (diphenhydramine)) Allergy/AdvReac Type Severity Reaction Status Date / Time No Known Allergies Allergy Verified 03/29/25 17:08 Social History Smoking Status: Never smoker History 1 Elective abortions Hx Para 0 Spontaneous abortions Hx # Term Pregnancies Ectopic pregnancies Hx # Pregnancies Multiple births # of living children ROS Constitutional Constitutional: Reports systems reviewed and no addt'l complaints, except as documented; Denies headache(s) Eyes Eyes: Denies acute decrease in peripheral vision ENT HEENT: Reports systems reviewed and no addt'l complaints, except as documented Cardiovascular Cardiovascular: Denies chest pain or dizziness Respiratory/Chest Respiratory/Chest: Denies cough Gastrointestinal Gastrointestinal: Denies abdominal pain, diarrhea, nausea or vomiting Genitourinary Genitourinary: Denies abdominal discomfort Musculoskeletal Musculoskeletal: Denies limited range of motion Integumentary Integumentary: Reports systems reviewed and no addt'l complaints, except as documented Neurologic Neurologic: Reports systems reviewed and no addt'l complaints, except as documented Psychiatric Psychiatric: Reports systems reviewed and no addt'l complaints, except as documented Endocrine Endocrinology: Reports systems reviewed and no addt'l complaints, except as documented Hematologic/Lymphatic Hematologic/Lymphatic: Reports systems reviewed and no addt'l complaints, except as documented Allergic/Immunologic Allergic/Immunologic: Reports systems reviewed and no addt'l complaints, except as documented Physical Exam Const alert and oriented x3 General Appearance: cooperative Orientation / Consciousness: awake, oriented to person, oriented to place and oriented to time Exam Limitations: no limitations HEENT normocephalic Head and Scalp: normal to inspection, normocephalic and atraumatic Face and Sinus: normal facial exam Eyes General Eye: normal appearance of both eyes Neck full ROM Chest Chest: symmetrical chest wall rise Resp normal respiratory effort and normal air movement Auscultation: clear to auscultation bilaterally Cardio regular rate, regular rhythm, S1 normal heart sound, S2 normal heart sound, no murmurs, no rub, no gallops and no clicks GI normal to inspection, nondistended, normoactive bowel sounds and non-tender Narrative: Pain with palpation of pubic symphysis Bladder / Kidney Exam: no CVA tenderness Back/Spine normal ROM Extremity normal to inspection and full ROM Skin no rashes or lesions noted Neuro oriented x3 and moves all extremities Sensorium / Orientation: awake, alert and oriented to person Motor Exam: clonus absent Deep Tendon Reflexes: Rt Patellar (L4): 2+ and Lt Patellar (L4): 2+ NST FHR Rate Baby A Baseline: 145 Variability:: Moderate Accelerations:: 15 x 15 Decelerations:: Variable NST Reactive:: Yes Uterine Activity:: None Assessment & Plan (1) Pain in symphysis pubis during : (2) 31 weeks gestation of : (3) POTS (postural orthostatic tachycardia syndrome): (4) Decreased movement: QUALIFIERS: Fetus number: single or unspecified fetus Trimester: third trimester Qualified Code(s): O36.8130 - Decreased movements, third trimester, not applicable or unspecified (5) Chest pain: (6) Shortness of breath: (7) Tachycardia: PLAN: Plan 1) Reactive NST 2) CBC, CMP, uric acid, and urine P/C ratio 3) Due to chest pain and shortness of breath to ED for further evaluation
[2025-03-29 19:10] LABS: Hematocrit 36.3 % (37-47); Hemoglobin 12.3 g/dL (12.0-15.0); Mean Corp Hgb Conc 33.9 g/dL (32-36); Mean Corpuscular Volume 90.8 fL (81-99); Mean Platelet Vol. 9.8 fl (6.2-12.0); Platelet Count 276 K/mm3 (150-450); RBC Distribution Width CV 12.8 % (11.6-14.6); RBC Distribution Width SD 41.9 fl (35.1-43.9); Red Blood Count 4.00 M/mm3 (4.2-5.4); White Blood Count 10.8 K/mm3 (4.4-11.0)
[2025-03-29 19:33] LABS: AST(SGOT) 15 U/L (<=31); Alanine Aminotransfer ALT/SGPT 6 U/L (<=34); Creatinine, Urine (random) 58.70 mg/dL (28.00-217.00); Estimated Creatinine Clearance 193.85 ml/min (50-250); Protein, Urine (Random) 10.6 mg/dL (0.0-12.0); Protein:Creat Ratio 181 mg/g CRE (0-200)
[2025-03-29 19:48] LABS: Uric Acid 3.3 mg/dL (2.6-6.0)
== END 2025-03-29 19:05 | disposition short-term general hospital (02) ==
LOC: WPOUT 16:42 → WP 16:43
PROVIDERS: Referring Provider Advanced Practice Midwife; Visit Provider Advanced Practice Midwife
DX: O36.8130 Decreased fetal movements, third trimester, not applicable or unspecified (principal); G90.A Postural orthostatic tachycardia syndrome [POTS]; O99.353 Diseases of the nervous system complicating pregnancy, third trimester; Z3A.31 31 weeks gestation of pregnancy; O99.891 Other specified diseases and conditions complicating pregnancy; R07.9 Chest pain, unspecified; R06.02 Shortness of breath; R10.24 Suprapubic pain
CPT/HCPCS: 36415; 59025; 59050; 81002; 82565; 82570; 84156; 84450; 84460; 84550; 85027; 87086; 99221; G0378

== ENCOUNTER 2025-03-29 19:15 | Emergency (ER) | payer BC, SELFPAY ==
[2025-03-29] VITALS (9 sets, daily range): BP systolic 112–145; BP diastolic 69–90; PULSE 93–124; RESP 14–24; TEMP 36.6–36.9; O2SAT 97–100; BMI 31.1
--- NOTE | 2025-03-29 19:37 | EKG12_ITS ---
Test Reason : CP
--- NOTE | 2025-03-29 19:37 | EX.ED.DYSGE1 ---
HPI History of Present Illness Chief Complaint: Chest Pain Narrative Narrative: 19-year-old female, G1, P0 at approximately 31 weeks gestation presents with pelvic pain and chest pain that she has had since Saturday. This was approximately 2 days ago. Its progressively gotten worse. She states that she went to the OB triage area because she thought she may have decreased movement. She states that they found that everything was okay in the sense that the baby had a heart rate and movement. She was sent to the emergency department by BILL [employer]ER INSTALLER, Dr. Corley, because of her chest pain and shortness of breath. It is difficult for her to describe the type of pain that she is having but she feels more short of breath. She states she already takes baby aspirin during the to help prevent preeclampsia. She denies any fevers or chills, no cough, no leg swelling, no exacerbating or alleviating factors. [facility] Medical History POTS (postural orthostatic tachycardia syndrome) Myles-Danlos syndrome Home Medications ?Medication ?Instructions ?Recorded ?Last Taken ?Type aspirin 81 mg capsule 81 mg PO DAILY 02/02/25 03/16/25 History vit no.95-ferrous 1 tab PO DAILY 02/02/25 03/16/25 History fumarate 28 mg-folic acid 800 mcg tablet () Allergy/AdvReac Type Severity Reaction Status Date / Time blueberry Allergy Hives Verified 03/29/25 19:19 Social History Smoking Status: Never smoker ROS ROS ED ROS Narrative Review of systems is positive for pelvic pain but no vaginal bleeding. Cleared by OB labor and delivery triage. Positive chest pain and shortness of breath constant but progressively getting worse over the last 2 days. No fevers or chills, no cough, no leg swelling. No exacerbating or alleviating factors. EXAM Physical Exam Narrative Exam Narrative: Afebrile. Vital signs noted. Nontoxic-appearing. Varying heart rate during examination ranging from 105 bpm to the 120s. Lungs are clear to auscultation bilaterally. Abdomen soft and nontender. Gravid uterus. Neurological examination nonfocal, nonlateralizing. No appreciable pitting edema bilateral lower extremities. Const Vital Signs: 03/29/25 19:16 03/29/25 19:32 03/29/25 19:34 Temperature 98.4 F Temperature Source Oral Pulse Rate 124 H 105 H Respiratory Rate 18 21 H Respiratory Effort Normal Short of Breath Blood Pressure 140/90 H 145/86 H Blood Pressure Mean 106 105 Pulse Ox 100 98 Oxygen Delivery Method Room Air Room Air 03/29/25 19:37 03/29/25 19:57 03/29/25 20:00 Temperature Temperature Source Pulse Rate 102 H 103 H Respiratory Rate 18 24 H Respiratory Effort Blood Pressure 121/74 H Blood Pressure Mean 88 Pulse Ox 98 98 97 Oxygen Delivery Method Room Air 03/29/25 20:15 03/29/25 20:30 03/29/25 21:00 Temperature Temperature Source Pulse Rate 101 H 98 93 Respiratory Rate 14 18 18 Respiratory Effort Blood Pressure 112/69 122/79 H 124/81 H Blood Pressure Mean 83 91 94 Pulse Ox 97 98 98 Oxygen Delivery Method Room Air MDM MDM MDM Narrative Medical decision making narrative: Differential diagnosis includes but not limited to dyspnea of unknown origin versus pulmonary embolism versus pneumonia versus pneumothorax versus preeclampsia versus eclampsia. I reviewed her prior problem list and she has had history of tachycardia as well as POTS. She states she was not on medication prior to her . Comprehensive workup was pursued. Blood pressure is borderline elevated at 140/90. I do feel chest x-ray is indicated. Radiation exposure and risk was discussed with the patient. I will obtain a D-dimer as well as basic laboratory work including CBC, CMP, and troponin. EKG was obtained and interpreted by myself independently as normal sinus rhythm at 88 bpm without ectopy or acute ST changes. No STEMI. Patient will be bolused normal saline 1 L intravenously. Urinalysis will be checked as well. I reviewed her laboratory work and she has normal hemoglobin of 12.5 with white count slightly elevated 11.5 with platelet count 288. Sodium normal at 137 with potassium 4.1, BUN of 16 creatinine 0.54. Glucose appropriate elevated at 117 with a normal anion gap of 12. LFTs are normal. Urinalysis is negative for infection, negative protein and 0-5 WBCs. I do not feel antibiotics are indicated. I was told by the RN that the patient refused her chest x-ray because she has already had chest x-rays and a CT scan during this . Her troponin is less than 6. Feel this is probably greater than a 6-hour troponin. Of note, her D-dimer is elevated at 0.77. In discussion with the patient, her IV fluids are done and she would like to be discharged. Given her elevated D-dimer, she does not want a CT scan. I do feel that she would need to have a pulmonary embolism ruled out. Risks benefits were discussed. She would like to call her mother as well and she would like me to contact her [employer] INST[employer]ER. I discussed patient with Dr. Sagastume with [employer]. It was felt that D-dimer at 0.77 can be elevated during . Her heart rate has improved to the 90s which is also normal in . It was felt that although she has an elevated D-dimer, with her negative workup here and her blood pressure improved to 124 systolic as documented, that she can be discharged to follow-up. I told her that her blood pressure was fluctuating so Dr. Sagastume instructed me to inform the patient to call the office tomorrow for an appointment to be seen by Saturday for a blood pressure check in the office. Additionally, she was told that BILL POSTER INSTALLER says to return to the emergency department with increasing shortness of breath and that CTA could be foregone unless her symptoms worsen. After discussion with BILL [employer]ER INSTALLER, I do not feel that she has to sign out AGAINST MEDICAL ADVICE as her results are not raising high suspicion for pulmonary embolism. It was not felt that the radiation risk would be beneficial at this time. She has a pulse ox that remains normal at 98 to 100% on room air. Patient is comfortable with the plan and is anticipating discharge. Disposition is discharged in stable condition. History & Record Review Discussion w/independent historian: Patient Additional record(s) reviewed:: Prior ED visit Lab Data Attestation: I reviewed the patient's lab results. Labs: Laboratory Results - last 24 hr 03/29/25 03/29/25 17:10 19:33 WBC 11.5 H RBC 4.02 L Hgb 12.5 Hct 36.3 L MCV 90.3 MCH 31.1 MCHC 34.4 RDW Std Deviation 42.2 RDW Coeff of Jeannie 12.8 Plt Count 288 MPV 9.9 Immature Gran % (Auto) 1.800 H Neut % (Auto) 69.5 Lymph % (Auto) 17.0 L [place] % (Auto) 10.1 H Eos % (Auto) 1.2 Baso % (Auto) 0.4 Absolute Neuts (auto) 7.9 H Absolute Lymphs (auto) 1.95 Nucleated RBC % 0 D-Dimer Quant (PE/DVT) 0.77 H* Sodium 137 Potassium 4.1 Chloride 106 Carbon Dioxide 18.9 L Anion Gap 12 BUN 6 Creatinine 0.54 L Estim Creat Clear Calc 191.62 Est GFR (MDRD) Non-Af 135 BUN/Creatinine Ratio 10.8 Glucose 117 H Calcium 9.1 Total Bilirubin 0.33 AST 18 ALT 12 Alkaline Phosphatase 88 Troponin T High Sens < 6 Total Protein 6.9 Albumin 3.7 Globulin 3.1 Albumin/Globulin Ratio 1.2 Urine Color Yellow Urine Clarity Clear Urine pH 6.5 Ur Specific [place] 1.015 Urine Protein Negative Urine Glucose (UA) 100 H Urine Ketones Negative Urine Occult Blood Negative Urine Nitrite Negative Urine Bilirubin Negative Urine Urobilinogen Normal Ur Leukocyte Esterase Negative Urine RBC 0-5 SEEN Urine WBC 0-5 SEEN Ur Squamous Epith Cells 0-5 SEEN Urine Bacteria 0 SEEN Urine Mucus 0 SEEN Management Discussion w/another healthcare provider: Warehouse Record Clerk (Dr. Sagastume) Discharge Plan Triage Chief Complaint: Chest Pain ED Provider: Eugene Morejon Dx/Rx/DC Orders Clinical Impression: Shortness of breath, 31 weeks gestation of , Chest pain, Tachycardia, Elevated d-dimer Instructions: ED Chest Pain, Uncertain Cause, ED Dyspnea Prescriptions: No Action PNV no.95-ferrous fumarate-FA [] 28 mg iron- 800 mcg tablet 1 tab PO DAILY aspirin 81 mg capsule 81 mg PO DAILY Primary Care Provider: Care Physician,No Primary Referrals: Holly Corley DO [Med Staff - Active Staff, Obstetrics-Gynecology (OBGYN)] Care Physician,No Primary [Primary Care Provider, Medical] Activity Restrictions/Additional Instructions: Call your BILL POSTER INSTALLER tomorrow. You will need a blood pressure check by Saturday/the end of the week. Return to the emergency department with increased difficulty breathing, sustained high heart rate, new or worsening symptoms. Print Language: Occitan Disposition Disposition: Home, Self Care
[2025-03-29] MEDS: 0.9% Normal Saline (1000mL) 1,000 ML 999 ML IV (19:41)
[2025-03-29 19:57] LABS: Hematocrit 36.3 % (37-47); Hemoglobin 12.5 g/dL (12.0-15.0); Immature Granulocytes Count 0.210 X10^3/uL (0.0-0.0); Mean Corp Hgb Conc 34.4 g/dL (32-36); Mean Corpuscular Volume 90.3 fL (81-99); Mean Platelet Vol. 9.9 fl (6.2-12.0); NRBC Flagged by Analyzer 0 % (0-5); Platelet Count 288 K/mm3 (150-450); RBC Distribution Width CV 12.8 % (11.6-14.6); RBC Distribution Width SD 42.2 fl (35.1-43.9); Red Blood Count 4.02 M/mm3 (4.2-5.4); White Blood Count 11.5 K/mm3 (4.4-11.0)
[2025-03-29 20:23] LABS: Color, Urine Yellow (Yellow); Glucose, Dipstick 100 mg/dl (Normal); Ketone-Dipstick Negative (Negative); Leukocyte Esterase-Dipstick Negative /ul (Negative); Mucous, Urine 0 SEEN /hpf (<or=2+); Nitrite-Dipstick Negative (Negative); Occult Blood-Urine Negative /ul (Negative); Protein-Dipstick Negative (Negative); Specific Gravity, Urine 1.015 (1.002-1.030); Urine Bilirubin Dipstick Negative (Negative)
[2025-03-29 20:45] LABS: AST(SGOT) 18 U/L (<=31); Alanine Aminotransfer ALT/SGPT 12 U/L (<=34); Albumin, Serum 3.7 g/dL (3.5-5.0); Alkaline Phosphatase 88 U/L (35-104); Anion Gap 12 (5-15); BUN 6 mg/dL (4-19); BUN/Creat Ratio 10.8 RATIO (10-20); Calcium,Total 9.1 mg/dL (7.6-11.0); Carbon Dioxide 18.9 mmol/L (21.0-32.0); Chloride 106 mmol/L (98-108); Estimated Creatinine Clearance 191.62 ml/min (50-250); Globulin 3.1 g/dL (2.2-4.2); Glucose 117 mg/dL (70-99); Potassium 4.1 mmol/L (3.3-5.1)
[2025-03-29 20:51] LABS: D-Dimer Quantitative (DVT/PE) 0.77 FEU/ug/m (0.27-0.49)
[2025-03-29 20:58] LABS: Troponin T High Sensitivity < 6 ng/L (<=14)
[2025-03-29 21:15] LABS: Red Blood Cells-Urine 0-5 SEEN /hpf (0-5); Squamous Epithelial Cells - UA 0-5 SEEN /hpf (5-10)
--- NOTE | 2025-03-29 21:23 | ED.RN ---
This RN went into the patient's room to answer a call light for the patient. The patient stated can I discharge myself, I have been here for hours and I don't think that there's anything wrong with my heart. This RN notified Dr. Morejon, whom informed this RN that the patient cannot sign out AMA at this point. Dr. Morejon immediately at bedside to inform the patient of her lab results and update of care.
== END 2025-03-29 21:40 | disposition home or self-care (01) ==
PROVIDERS: Emergency Provider Emergency Medicine; Visit Provider Emergency Medicine
DX: O28.8 Other abnormal findings on antenatal screening of mother (principal); Z3A.31 31 weeks gestation of pregnancy; R06.02 Shortness of breath; R00.0 Tachycardia, unspecified; R07.9 Chest pain, unspecified; O99.891 Other specified diseases and conditions complicating pregnancy; R79.1 Abnormal coagulation profile; Z53.29 Procedure and treatment not carried out because of patient's decision for other reasons
CPT/HCPCS: 80053; 81001; 84484; 85025; 85379; 93005; 96360; 96361; 99284; A4216

== ENCOUNTER 2025-04-01 16:10 | Outpatient (CLI) | payer BC, SELFPAY ==
[2025-04-01] VITALS (30 sets, daily range): BP systolic 114–130; BP diastolic 61–90; PULSE 92–140; RESP 14–16; TEMP 36.4–37.2; O2SAT 96–100; BMI 30.8
--- OUTSIDE RECORDS SUMMARY | 2025-04-01 16:35 | XMS RPT_ITS | CCD ---
Author Organization [facility] Care Team Providers Care Machine Bobbin Winder Name Role Phone Unavailable Primary Care [...] Provider Dr. Aftab Mendoza DO Attending Physician Dr. Aftab Mendoza DO Emergency Department Physic devi Care Physician, No Primary Primary Care Physicia n Unavailable Mahesh WILLIS, Dr. Man Attending Physician Lynnette Tapia CNM Attending Physician Patsy March CNM Attending Physician Patsy March CNM Referring Provider ALEXA DICKSON Attending Unavailable YESSI, ALEXA Admitting Unavailable NUZHAT ZAMORANO Attending Unavailable NUZHAT ZAMORANO Admitting Unavailable ALEXA DICKSON Attending Unavailable YESSI, ALEXA Admitting Unavailable REGGIE MA Attending Unavailable LYNNETTE TAPIA Referring Unavailable NUZHAT ZAMORANO Attending Unavailable NUZHAT ZAMORANO Admitting Unavailable MARK FOREMAN Attending Unavailable MARK FOREMAN Admitting Unavailable Patsy March Referring Unavailable Care Physician, No Primary Primary Care Unava ilable Pasty March Attending Unavailable Eugene Morejon Attending Unavailable Care Physician, No Primary Primary Care Unava ilable Care Physician, No Primary Primary Care Unava ilable Aftab Mendoza Attending Unavailable Magda Aragon Attending Unavailable Mahesh, Magda Referring Unavailable Care Physician, No Primary Primary Care Unava ilable Care Physician, No Primary Primary Care Unava ilable Mahesh, Magda Attending Unavailable Mahesh, Magda Referring Unavailable Care Physician, No Primary Primary Care Unava ilable Lynnette Tapia Attending Unavailable Wisky, Ramakrishna Referring Unavailable Care Physician, No Primary Primary Care Unava ilable Magda Aragon Attending Unavailable [place], Magda Referring Unavailable Care Physician, No Primary Primary Care Unava ilable Joaquim, Patsy Referring Unavailable March, Patsy Attending Unavailable March, Patsy Referring Unavailable March, Patsy Attending Unavailable Care Physician, No Primary Primary Care Unava ilable KARINA SALDAÑA Attending Unavail able LESTER PHILLIPS Attending Unavailable SANDY, LYNNETTE Referring Unavailable PLOTTS, LYNNETTE Attending Unavailable WISWELL, RAMAKRISHNA Attending Unavailable PLOTTS, LYNNETTE Referring Unavailable LESTER PHILLIPS Attending Unavailable KARI JOHNSTON Attending Unavailable MILES, ALEXA Referring Unavailable PLOTTS, LYNNETTE Referring Unavailable WISWELL, RAMAKRISHNA Attending Unavailable PLOTTS, LYNNETTE Referring Unavailable PLOTTS, LYNNETTE Referring Unavailable PLOTTS, LYNNETTE Attending Unavailable PLOTTS, LYNNETTE Attending Unavailable PLOTTS, LYNNETTE Attending Unavailable PLOTTS, LYNNETTE Referring Unavailable WISWELL, RAMAKRISHNA Referring Unavailable Allergies Allergy Classification Reported Allergen(s) Allergy Type Date of Onset Reaction(s) Facility (1 source) [facility] allergy (disorder) 03-29-2025 [facility] Repository Medications Current Medications Medication Drug Class(es) Dates [...] mg EC tablet Indications: Visit for screening ([facility]) Take 1 tablet by mouth once daily. [...] Start: 12-03-2024 take 1 capsule by mo ut every twelve hours nitrofurantoin monohydrate and macrocrystal (MACROBID) 100 mg capsule Take 1 capsule every 12 hours by oral route for 7 days. 12/03/2024 Active Problems Active Problems Problem Classification Problem Date Documented Da te Episodic/Chronic Abdominal pain (13 sources) Suprapubic pain; Translations: [Pelvic and perineal pain] Onset: 01-06-2025 02-05-2025 Episodic Cardiac dysrhythmias (18 sources) Postural orthostatic tachycardia syndrome ; Translations: [POTS (postural orthostatic tachycardia syndrome)] 12-28-2024 Chronic Cardiac dysrhythmias (3 sources) Palpitations; Translations: [Palpitations] Onset: 01-11-2025 01-11-2025 Episodic Conditions associated with dizziness or vertigo (15 sources) Dizziness; Translations: [Dizziness and giddiness] Onset: 01-05-2025 01-05-2025 Episodic Diabetes or abnormal glucose tolerance complicating ; childbirth; or the puerperium (1 source) Abnormal glucose complicating ; Translations: [Abnormal glucose complicating (HCC)] Onset: 03-11-2025 Episodic Early or threatened labor (18 sources) Hardy Zaragoza contractions; Translations: [False labor, unspecified] Onset: [...] Onset: 01-11-2025 01-11-2025 Episodic Nonspecific chest pain (2 sources) Chest pain, unspecified; Translations: [Chest pain, unspecified type] Onset: 03-08-2025 Episodic Other circulatory disease (2 sources) Postural orthostatic tachycardia syndrome ; Translations: [Postural orthostatic tachycardia syndrome [POTS]] Onset: 03-29-2025 12-28-2024 Episodic Other complications of (6 sources) [...] Other complications of (1 source) Decreased movements, third trimester, not applicable or unspecified; Translations: [Decreased movements, third trimester, not applicable or unspecified] Onset: 03-29-2025 Episodic Other complications of (1 source) Decreased movements, unspecified trimester, not applicable or unspecified; Translations: [Decreased movements, unspecified trimester, not applicable or unspecified] Onset: 03-15-2025 Episodic Other complications of (1 source) Supervision of high risk , unspecified, third trimester; Translations: [Supervision of high risk in third trimester (HCC)] Onset: 03-11-2025 Episodic Other congenital anomalies (18 sources) Myles-Danlos syndrome; 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, 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-2024 Chronic Other connective tissue disease (1 source) Myalgia, other site; Translations: [Myalgia, other site] Onset: 03-29-2025 Episodic Other female genital disorders (1 source) Other specified conditions associated with female genital organs and menstrual cycle; Translations: [Vaginal burning] Onset: 03-11-2025 Episodic Other female genital disorders (2 sources) Other specified noninflammatory disorders of vagina; Translations: [Vaginal discharge during , antepartum (HCC)] Onset: 01-06-2025 Episodic Other gastrointestinal disorders (15 sources) Diarrhea; Translations: [Diarrhea, unspecified] Onset: 01-05-2025 01-05-2025 Episodic Other lower respiratory disease (1 source) Shortness of breath; Translations: [Shortness of breath] Onset: 03-29-2025 Episodic Other and delivery including normal (10 [...] 02-08-2025 Episodic Residual codes; unclassified (1 source) 31 weeks gestation of ; Translations: [31 weeks gestation of ] Onset: 03-29-2025 Episodic Residual codes; unclassified (1 source) 30 weeks gestation of ; Translations: [30 weeks gestation of (HCC)] Onset: 03-26-2025 Episodic Residual codes; unclassified (1 source) 28 weeks gestation of ; Translations: [28 weeks gestation of (HCC)] Onset: 03-11-2025 Episodic Residual codes; unclassified (1 source) 24 weeks gestation of ; Translations: [24 weeks gestation of (HCC)] Onset: 03-11-2025 Episodic Residual codes; unclassified (1 source) 25 weeks gestation of ; Translations: [25 weeks gestation of (HCC)] Onset: 02-16-2025 Episodic Residual codes; unclassified (1 source) 21 weeks gestation of ; Translations: [21 weeks gestation of (HCC)] Onset: 01-18-2025 Episodic Residual codes; unclassified (1 source) 20 weeks gestation of ; Translations: [20 weeks gestation of (HCC)] Onset: 01-11-2025 Episodic Unclassified (2 sources) Patient encounter status 12-28-2024 Unclassified (16 sources) [facility] Education - COMMON Onset: 12-28-2024 12-28-2024 Unclassified (16 sources) Education - [place] Onset: 12-28-2024 12-28-2024 Unclassified (2 sources) POTS (postural orthostatic tachycardia syndrome); Translations: [POTS (postural orthostatic tachycardia syndrome)] Onset: 12-28-2024 Unclassified (1 source) Other specified diseases and conditions complicating ; Translations: [Other specified diseases and conditions complicating ] Onset: 03-29-2025 Unclassified (1 source) Myles-Danlos syndrome, unspecified; Translations: [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HCC)] Onset: 12-28-2024 Urinary tract infections (1 source) Urinary tract infection, site not specified; Translations: [Recurrent UTI] Onset: 02-18-2025 Episodic Past or Other Problems Problem Classification Problem Date Documented Da te Episodic/Chronic Bacterial infection; unspecified site (1 source) Other specified bacterial agents as the cause of diseases classified elsewhere; Translations: [Bacterial vaginosis] Onset: 12-28-2024 Episodic Other complications of (1 source) Supervision of high risk , unspecified, second trimester; Translations: [Encounter for supervision of high risk in second trimester, antepartum (HCC)] Onset: 12-28-2024 Episodic Residual codes; unclassified (13 sources) Gestation period, 19 weeks; Translations: [19 weeks gestation of ] Onset: 01-06-2025 Resolved: 01-13-2025 01-06-2025 Episodic Residual codes; unclassified (2 sources) 18 weeks gestation of ; Translations: [18 weeks gestation of (HCC)] Onset: 12-28-2024 Episodic Residual codes; unclassified (1 source) Cystic fibrosis carrier; Translations: [Cystic fibrosis carrier] Onset: 12-28-2024 Episodic Results Test Name Value Interpretation Reference Range Facility 12 Lead EKGon 03-29-2025 12 Lead EKG [facility] [address] [place] [address] 12 Lead EKG 03/29/259 MR#: [id number] Acct: [id number] Name: PAL NICHOLAS Rep #: [id number] : 2005 From: Ken Fuentes MD Attending Dr: Status: DEP ER Ordering Dr: Eugene Morejon MD Date: 03/29/25 Location: ED Sex: F C Admitted: Test Reason : CP Blood Pressure : */* mmHG Vent. Rate : 88 BPM Atrial Rate : 88 BPM P-R Int : 120 ms QRS Dur : 74 ms QT Int : 326 ms P-R-T Axes : 27 51 2 degrees QTcB Int : 394 ms Normal sinus rhythm Normal ECG Confirmed by Ken Fuentes ([id number]), editor sound PRITI ROBLES ([id number]) on 03/30/2025 8:55:43 AM Referred By: MANUELA Confirmed By: Ken Fuentes 03/30/25 0855 Date Ken Fuentes MD CC: Dr. Eugene Morejon MD; No Primary Care Physician Signed Normal [facility] AST(SGOT)on 03-29-2025 AST [Catalytic activity/Vol] 15 U/L Normal <=31 [facility] Comment on above: Performed By: #### L 300.8000, L501.4021, L100.0100 #### [facility] [address] [place], [address] Alanine Aminotransferas (SGP T)on 03-29-2025 ALT [Catalytic activity/Vol] 6 U/L Normal <=34 [facility] Comment on above: Performed By: #### L 300.8000, L501.4021, L100.0100 #### [facility] [address] [place], [address] CBC W/Diff, Automatedon 11-0 Absolute Lymph 1.95 X10 3/uL Normal 0.83-4.51 [facility] Comment on above: Performed By: #### L 300.8000, L501.4021, L100.0100 #### [facility] [address] [place], [address] Absolute Neut 7.9 X10 3/uL High 2.0-7.7 [facility] Comment on above: Performed By: #### L 300.8000, L501.4021, L100.0100 #### [facility] [address] [place], [address] Basophils/100 WBC (Bld) 0.4 % Normal 0-1 [facility] Comment on above: Performed By: #### L 300.8000, L501.4021, L100.0100 #### [facility] [address] [place], [address] Eosinophils/100 WBC (Bld) 1.2 % Normal 0-5 [facility] Comment on above: Performed By: #### L 300.8000, L501.4021, L100.0100 #### [facility] [address] [place], [address] Erythrocyte distribution width (RBC) [Ratio] 12.8 % Normal 11.6-14.6 [facility] Comment on above: Performed By: #### L 300.8000, L501.4021, L100.0100 #### [facility] [address] [place], [address] Hematocrit (Bld) [Volume fraction] 36.3 % Low 37-47 [facility] Comment on above: Performed By: #### L 300.8000, L501.4021, L100.0100 #### [facility] [address] [place], [address] Hemoglobin (Bld) [Mass/Vol] 12.5 g/dL Normal 12.0-15.0 [facility] Comment on above: Performed By: #### L 300.8000, L501.4021, L100.0100 #### [facility] [address] [place], [address] IG% 1.800 High 0.0-0.9 [facility] Comment on above: Result Comment: IG% - Immature Granulocytes (promyelocytes, myelocytes and metamyelocytes) > 1% indicates that a LEFT SHIFT is Present. Performed By: #### L 300.8000, L501.4021, L100.0100 #### [facility] [address] [place], [address] Lymphocytes/100 WBC (Bld) 17.0 % Low 19-41 [facility] Comment on above: Performed By: #### L 300.8000, L501.4021, L100.0100 #### [facility] [address] [place], [address] MCH (RBC) [Entitic mass] 31.1 pg Normal 27.0-32.0 [facility] Comment on above: Performed By: #### L 300.8000, L501.4021, L100.0100 #### [facility] [address] [place], [address] MCHC (RBC) [Mass/Vol] 34.4 g/dL Normal 32-36 [facility] Comment on above: Performed By: #### L 300.8000, L501.4021, L100.0100 #### [facility] [address] [place], [address] MCV (RBC) [Entitic vol] 90.3 fL Normal 81-99 [facility] Comment on above: Performed By: #### L 300.8000, L501.4021, L100.0100 #### [facility] [address] [place], [address] Monocytes/100 WBC (Bld) 10.1 % High 0-10 [facility] Comment on above: Performed By: #### L 300.8000, L501.4021, L100.0100 #### [facility] [address] [place], [address] Neutrophils/100 WBC (Bld) 69.5 % Normal 47-70 [facility] Comment on above: Performed By: #### L 300.8000, L501.4021, L100.0100 #### [facility] [address] [place], [address] Nucleated RBC (Bld) [#/Vol] 0 10*3/uL Normal 0-5 [facility] Comment on above: Performed By: #### L 300.8000, L501.4021, L100.0100 #### [facility] [address] [place], [address] Platelet mean volume (Bld) [Entitic vol] 9.9 fL Normal 6.2-12.0 [facility] Comment on above: Performed By: #### L 300.8000, L501.4021, L100.0100 #### [facility] [address] [place], [address] Platelets (Bld) [#/Vol] 288 10*3/uL Normal 150-450 [facility] Comment on above: Performed By: #### L 300.8000, L501.4021, L100.0100 #### [facility] [address] [place], [address] RBC (Bld) [#/Vol] 4.02 10*6/uL Low 4.2-5.4 [facility] Comment on above: Performed By: #### L 300.8000, L501.4021, L100.0100 #### [facility] [address] [place], [address] RDW SD 42.2 fl Normal 35.1-43.9 [facility] Comment on above: Performed By: #### L 300.8000, L501.4021, L100.0100 #### [facility] [address] [place], [address] WBC (Bld) [#/Vol] 11.5 10*3/uL High 4.4-11.0 [facility] Comment on above: Performed By: #### L 300.8000, L501.4021, L100.0100 #### [facility] [address] [place], [address] [facility] Erythrocyte distribution width (RBC) [Ratio] 12.8 % Normal 11.6-14.6 [facility] Comment on above: Performed By: #### L 300.8000, L501.4021, L100.0100 #### [facility] [address] [place], [address] Hematocrit (Bld) [Volume fraction] 36.3 % Low 37-47 [facility] Comment on above: Performed By: #### L 300.8000, L501.4021, L100.0100 #### [facility] [address] [place], [address] Hemoglobin (Bld) [Mass/Vol] 12.3 g/dL Normal 12.0-15.0 [facility] Comment on above: Performed By: #### L 300.8000, L501.4021, L100.0100 #### [facility] [address] [place], [address] MCH (RBC) [Entitic mass] 30.8 pg Normal 27.0-32.0 [facility] Comment on above: Performed By: #### L 300.8000, L501.4021, L100.0100 #### [facility] [address] [place], [address] MCHC (RBC) [Mass/Vol] 33.9 g/dL Normal 32-36 [facility] Comment on above: Performed By: #### L 300.8000, L501.4021, L100.0100 #### [facility] [address] [place], [address] MCV (RBC) [Entitic vol] 90.8 fL Normal 81-99 [facility] Comment on above: Performed By: #### L 300.8000, L501.4021, L100.0100 #### [facility] [address] [place], [address] Platelet mean volume (Bld) [Entitic vol] 9.8 fL Normal 6.2-12.0 [facility] Comment on above: Performed By: #### L 300.8000, L501.4021, L100.0100 #### [facility] [address] [place], [address] Platelets (Bld) [#/Vol] 276 10*3/uL Normal 150-450 [facility] Comment on above: Performed By: #### L 300.8000, L501.4021, L100.0100 #### [facility] [address] [place], [address] RBC (Bld) [#/Vol] 4.00 10*6/uL Low 4.2-5.4 [facility] Comment on above: Performed By: #### L 300.8000, L501.4021, L100.0100 #### [facility] [address] [place], [address] RDW SD 41.9 fl Normal 35.1-43.9 [facility] Comment on above: Performed By: #### L 300.8000, L501.4021, L100.0100 #### [facility] [address] [place], [address] WBC (Bld) [#/Vol] 10.8 10*3/uL Normal 4.4-11.0 [facility] Comment on above: Performed By: #### L 300.8000, L501.4021, L100.0100 #### [facility] [address] [place], [address] [facility] PAL NICHOLAS ([id number]) 3 F Date Time Provider Department 03/29/25 PATSY MARCH During your visit today, we recorded the following information about you: Isaura Pereira, RN 03/29/2025 4:16 PM Signed 31w0d Calling c/o increased vaginal/pelvic pressure, lower back pain and dysuria. No bleeding or leaking fluid. Only feels occasional angel zaragoza type of contractions, nothing regular. She is having decreased movement too. Hasn't done kick counts, but movement is a lot less than normal today. She is unsure how long it'd take her to get to office or [facility] d/t needing to find a ride first. Advised to go to [facility] for evaluation then. [facility] updated. Updated episode sent to [facility]. LEVON Hutson Jessica, APRN.HUMPHREY 03/30/2025 10:12 AM Signed [facility] to ED for shortness of breath. Can I please have ED visit notes and labs. Thanks, Patsy March APRN.Isaura Gurrola RN 03/30/2025 10:24 AM Signed ER records to to review. Isaura Pereira RN Allergies As of Date: 03/29/2025 (No Known Allergies) Date Reviewed: 03/26/2025 Reviewed by: Lili Harry LPN - Fully Assessed Reason for Visit: OB Update [Other] Prescriptions as of 03/30/2025 - famotidine (PEPCID) 20 mg tablet Take 1 tablet by mouth two times a day. - Catheter (SELF-CATHETER, FEMALE) 14 Fr misc 1 Units once daily as needed. - pseudoephed/acetami noph/diphen (BENADRYL COLD ORAL) Take by mouth. - aspirin, enteric coated (ECOTRIN LOW STRENGTH) 81 mg EC tablet Take 1 tablet by mouth once daily. - vit 75/iron/folic/om3 (DAILY ORAL) Take by mouth. 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, [address] Albumin/Globulin [Mass ratio] 1.2 {ratio} Normal 0.9-2.4 [facility] Comment on above: Performed By: #### L 300.8000, L501.4021, L100.0100 #### [facility] [address] [place], [address] ALK PHOS 88 U/L Normal 35-104 [facility] Comment on above: Performed By: #### L 300.8000, L501.4021, L100.0100 #### [facility] [address] [place], [address] ALT [Catalytic activity/Vol] 12 U/L Normal <=34 [facility] Comment on above: Performed By: #### L 300.8000, L501.4021, L100.0100 #### [facility] [address] [place], [address] AST [Catalytic activity/Vol] 18 U/L Normal <=31 [facility] Comment on above: Result Comment: Hemo lysis present, Results??could be affected. ?? Performed By: #### L 300.8000, L501.4021, L100.0100 #### [facility] [address] [place], [address] Bilirubin [Mass/Vol] 0.33 mg/dL Normal 0.00-1.30 [facility] Comment on above: Performed By: #### L 300.8000, L501.4021, L100.0100 #### [facility] [address] [place], [address] BUN/CRE 10.8 RATIO Normal 10-20 [facility] Comment on above: Performed By: #### L 300.8000, L501.4021, L100.0100 #### [facility] [address] [place], [address] Calcium [Mass/Vol] 9.1 mg/dL Normal 7.6-11.0 [facility] Comment on above: Performed By: #### L 300.8000, L501.4021, L100.0100 #### [facility] [address] [place], [address] Chloride [Moles/Vol] 106 mmol/L Normal 98-108 [facility] Comment on above: Performed By: #### L 300.8000, L501.4021, L100.0100 #### [facility] [address] [place], [address] CO2 [Moles/Vol] 18.9 mmol/L Low 21.0-32.0 [facility] Comment on above: Performed By: #### L 300.8000, L501.4021, L100.0100 #### [facility] [address] [place], [address] Creatinine [Mass/Vol] 0.54 mg/dL Low 0.70-1.20 [facility] Comment on above: Performed By: #### L 300.8000, L501.4021, L100.0100 #### [facility] [address] [place], [address] ECRCL 191.62 ml/min Normal 50-250 [facility] Comment on above: Performed By: #### L 300.8000, L501.4021, L100.0100 #### [facility] [address] [place], [address] GAP 12 Normal 5-15 [facility] Comment on above: Performed By: #### L 300.8000, L501.4021, L100.0100 #### [facility] [address] [place], [address] GFR/1.73 sq M.predicted among non-blacks MDRD (S/P/Bld) [Vol rate/Area] 135 mL/min/{1.73_m2} Normal >60 [facility] Comment on above: Result Comment: mL/m in/1.73m2 CKD-EPI Creatinine Equation (2020) Performed By: #### L 300.8000, L501.4021, L100.0100 #### [facility] [address] [place], [address] Globulin (S) [Mass/Vol] 3.1 g/dL Normal 2.2-4.2 [facility] Comment on above: Performed By: #### L 300.8000, L501.4021, L100.0100 #### [facility] [address] [place], [address] Glucose [Mass/Vol] 117 mg/dL High 70-99 [facility] Comment on above: Performed By: #### L 300.8000, L501.4021, L100.0100 #### [facility] [address] [place], [address] Potassium [Moles/Vol] 4.1 mmol/L Normal 3.3-5.1 [facility] Comment on above: Result Comment: Hemo lysis present, Results??could be affected. ?? Performed By: #### L 300.8000, L501.4021, L100.0100 #### [facility] [address] [place], [address] Sodium [Moles/Vol] 137 mmol/L Normal 133-145 [facility] Comment on above: Performed By: #### L 300.8000, L501.4021, L100.0100 #### [facility] [address] [place], [address] T PROT 6.9 g/dL Normal 5.9-8.4 [facility] Comment on above: Performed By: #### L 300.8000, L501.4021, L100.0100 #### [facility] [address] [place], [address] Urea nitrogen [Mass/Vol] 6 mg/dL Normal 4-19 [facility] Comment on above: Performed By: #### L 300.8000, L501.4021, L100.0100 #### [facility] [address] [place], [address] ALB Normal 3.5-5.0 [facility] Comment on above: Result Comment: @PT DEPARTED, OK TO CANCEL BY NURSE SHEEHAN Performed By: #### L 500.9940 #### [facility] [address] [place], [address] ALK PHOS Normal 35-104 [facility] Comment on above: Result Comment: @PT DEPARTED, OK TO CANCEL BY NURSE SHEEHAN Performed By: #### L 500.8344 #### [facility] [address] [place], [address] ALT Normal <=34 [facility] Comment on above: Result Comment: @PT DEPARTED, OK TO CANCEL BY NURSE AGUILA Performed By: #### L 500.4050 #### [facility] [address] [place], [address] AST Normal <=31 [facility] Comment on above: Result Comment: @PT DEPARTED, OK TO CANCEL BY NURSE AGUILA Performed By: #### L 500.4050 #### [facility] [address] [place], [address] BUN Normal 4-19 [facility] Comment on above: Result Comment: @PT DEPARTED, OK TO CANCEL BY NURSE AUGILA Performed By: #### L 500.4050 #### [facility] [address] [place], [address] BUN/CRE Normal 10-20 [facility] Comment on above: Result Comment: @PT DEPARTED, OK TO CANCEL BY NURSE AGUILA Performed By: #### L 500.4050 #### [facility] [address] [place], [address] Calcium Normal 7.6-11.0 [facility] Comment on above: Result Comment: @PT DEPARTED, OK TO CANCEL BY NURSE AGUILA Performed By: #### L 500.4050 #### [facility] [address] [place], [address] CL Normal 98-108 [facility] Comment on above: Result Comment: @PT DEPARTED, OK TO CANCEL BY NURSE AGUILA Performed By: #### L 500.4050 #### [facility] [address] [place], [address] CO2 Normal 21.0-32.0 [facility] Comment on above: Result Comment: @PT DEPARTED, OK TO CANCEL BY NURSE AGUILA Performed By: #### L 500.4050 #### [facility] [address] [place], [address] CREAT,SERUM Normal 0.70-1.20 [facility] Comment on above: Result Comment: @PT DEPARTED, OK TO CANCEL BY NURSE AGUILA Performed By: #### L 500.4050 #### [facility] [address] [place], [address] eGFR Normal >60 [facility] Comment on above: Result Comment: @PT DEPARTED, OK TO CANCEL BY NURSE AGUILA Performed By: #### L 500.4050 #### [facility] [address] [place], [address] GAP Normal 5-15 [facility] Comment on above: Result Comment: @PT DEPARTED, OK TO CANCEL BY NURSE AGUILA Performed By: #### L 500.4050 #### [facility] [address] [place], [address] GLU Normal 70-99 [facility] Comment on above: Result Comment: @PT DEPARTED, OK TO CANCEL BY NURSE AGUILA Performed By: #### L 500.4050 #### [facility] [address] [place], [address] Potassium Normal 3.3-5.1 [facility] Comment on above: Result Comment: @PT DEPARTED, OK TO CANCEL BY NURSE AGUILA Performed By: #### L 500.4050 #### [facility] [address] [place], [address] T BILI Normal 0.00-1.30 [facility] Comment on above: Result Comment: @PT DEPARTED, OK TO CANCEL BY NURSE AGUILA Performed By: #### L 500.4050 #### [facility] [address] [place], [address] T PROT Normal 5.9-8.4 [facility] Comment on above: Result Comment: @PT DEPARTED, OK TO CANCEL BY NURSE AGUILA Performed By: #### L 500.4050 #### [facility] [address] [place], [address] Comprehensive Metabolic Profil Normal 133-145 [facility] Comment on above: Result Comment: @PT DEPARTED, OK TO CANCEL BY NURSE AGUILA Performed By: #### L 500.4050 #### [facility] [address] [place], [address] D-Dimer Quantitative (DVT/PE )on 03-29-2025 D-DIMER QUANT 0.77 FEU/ug/m Invalid Interpretation Code 0.27-0.49 [facility] Comment on above: Result Comment: D-Di peewee ELEVATED (>0.49): Additional studies and clinical assessments are indicated to conclude diagnosis of: Deep Vein Thrombosis (DVT) or Pulmonary Embolism (PE) CRITICAL VALUE CALLED TO OTIS COLBERT 03/29/252048 Mera Yañez. RESULTS READ BACK BY SAME. Performed By: #### L 300.8000, L501.4021, L100.0100 #### [facility] [address] [place], [address] Emergency Department Summary on 03-29-2025 Emergency Department Summary [facility] Medical Records Department [address] [place] [address] Emergency Department Summary 03/29/25 MR#: [id number] Acct: [id number] Name: PAL NICHOLAS Rep #: [id number] : 2005 19 From: Eugene Morejon MD PCP: Care Physician,No Primary Status:REG ER Location: ED HPI History of Present Illness Chief Complaint: Chest Pain Narrative Narrative: 19-year-old female, G1, P0 at approximately 31 weeks gestation presents with pelvic pain and chest pain that she has had since Saturday. This was approximately 2 days ago. Its progressively gotten worse. She states that she went to the OB triage area because she thought she may have decreased movement. She states that they found that everything was okay in the sense that the baby had a heart rate and movement. She was sent to the emergency department by [facility], Dr. Corley, because of her chest pain and shortness of breath. It is difficult for her to describe the type of pain that she is having but she feels more short of breath. She states she already takes baby aspirin during the to help prevent preeclampsia. She denies any fevers or chills, no cough, no leg swelling, no exacerbating or alleviating factors. [facility] Medical History POTS (postural orthostatic tachycardia syndrome) Myles-Danlos syndrome Home Medications ???Medication ???Instructions ???Recorded ???Last Taken ???Type aspirin 81 mg capsule 81 mg PO DAILY 02/02/25 03/16/25 H istory vit no.95-ferrous 1 tab PO DAILY 02/02/25 03/16/25 H istory fumarate 28 mg-folic acid 800 mcg tablet () Allergy/AdvReac Type Severity Reaction Status Date / Time blueberry Allergy Hives Verified 03/29/25 19:19 Social History Smoking Status: Never smoker ROS ROS ED ROS Narrative Review of systems is positive for pelvic pain but no vaginal bleeding. Cleared by OB labor and delivery triage. Positive chest pain and shortness of breath constant but progressively getting worse over the last 2 days. No fevers or chills, no cough, no leg swelling. No exacerbating or alleviating factors. EXAM Physical Exam Narrative Exam Narrative: Afebrile. Vital signs noted. Nontoxic-appearing. Varying heart rate during examination ranging from 105 bpm to the 120s. Lungs are clear to auscultation bilaterally. Abdomen soft and nontender. Gravid uterus. Neurological examination nonfocal, nonlateralizing. No appreciable pitting edema bilateral lower extremities. Const Vital Signs: 03/29/25 19:16 03/29/25 19:32 03/29/25 19:34 Temperature 98.4 F Temperature Source Oral Pulse Rate 124 H 105 H Respiratory Rate 18 21 H Respiratory Effort Normal Short of Breath Blood Pressure 140/90 H 145/86 H Blood Pressure Mean 106 105 Pulse Ox 100 98 Oxygen Delivery Method Room Air Room Air 03/29/25 19:37 03/29/25 19:57 03/29/25 20:00 Temperature Temperature Source Pulse Rate 102 H 103 H Respiratory Rate 18 24 H Respiratory Effort Blood Pressure 121/74 H Blood Pressure Mean 88 Pulse Ox 98 98 97 Oxygen Delivery Method Room Air 03/29/25 20:15 03/29/25 20:30 03/29/25 21:00 Temperature Temperature Source Pulse Rate 101 H 98 93 Respiratory Rate 14 18 18 Respiratory Effort Blood Pressure 112/69 122/79 H 124/81 H Blood Pressure Mean 83 91 94 Pulse Ox 97 98 98 Oxygen Delivery Method Room Air MDM MDM MDM Narrative Medical decision making narrative: Differential diagnosis includes but not limited to dyspnea of unknown origin versus pulmonary embolism versus pneumonia versus pneumothorax versus preeclampsia versus eclampsia. I reviewed her prior problem list and she has had history of tachycardia as well as POTS. She states she was not on medication prior to her . Comprehensive workup was pursued. Blood pressure is borderline elevated at 140/90. I do feel chest x-ray is indicated. Radiation exposure and risk was discussed with the patient. I will obtain a D-dimer as well as basic laboratory work including CBC, CMP, and troponin. EKG was obtained and interpreted by myself independently as normal sinus rhythm at 88 bpm without ectopy or acute ST changes. No STEMI. Patient will be bolused normal saline 1 L intravenously. Urinalysis will be checked as well. I reviewed her laboratory work and she has normal hemoglobin of 12.5 with white count slightly elevated 11.5 with platelet count 288. Sodium normal at 137 with potassium 4.1, BUN of 16 creatinine 0.54. Glucose appropriate elevated at 117 with a normal anion gap of 12. LFTs are normal. Urinalysis is negative for infection, negative protein and 0-5 WBCs. I d (more content not included)... Normal [facility] L501.4021on 03-29-2025 Trop T High Sen < 6 Normal <=14 [facility] Comment on above: Performed By: #### L 300.8000, L501.4021, L100.0100 #### [facility] [address] [facility] [place], [address] OB Triage Physician Noteon 1 05-29-2024 OB Triage Physician Note [facility] Medical Records Department [address] [place] [address] OB Triage Physician Note 03/29/25 1858 MR#: [id number] Acct: [id number] Name: PAL NICHOLSA Rep #: [id number] : 2005 19 From: Patsy March CNM PCP: Care Physician,No Primary Status:REG CLI Y Location: [address] HPI - General HPI Narrative PAL NICHOLAS, is a 19 F who presents [ at 31 weeks] Presents with concerns of decreased movement and suprapubic pain. Feeling baby move but less than normal. Having pubic pain and was given pelvic floor therapy referral but unable to make appointment. Denies vaginal bleeding, leakage of fluid, contractions, or urinary complaints. Had a headache yesterday but nothing today. Admits to seeing "white Stars" on and off but not related to positional changes, new in the last few days. Concerns about shortness of breath and chest pain. Maternal Data Information AMARI Calculator Estimated Delivery Date Method Current WG Current Estimate 05/31/25 Manual 31w 0d PFSH PFSH Medical History (Updated 03/29/25 @ 19:04 by Patsy March CNM) POTS (postural orthostatic tachycardia syndrome) Myles-Danlos syndrome Home Medications ???Medication ???Instructions ???Recorded ???Last Taken ???Type aspirin 81 mg capsule 81 mg PO DAILY 02/02/25 03/16/25 H istory vit no.95-ferrous 1 tab PO DAILY 02/02/25 03/16/25 H istory fumarate 28 mg-folic acid 800 mcg tablet () diphenhydramine HCl 25 mg capsule 25 mg PO .PRN 03/29/25 Unknown Hi story (Allergy (diphenhydramine)) Allergy/AdvReac Type Severity Reaction Status Date / Time No Known Allergies Allergy Verified 03/29/25 17:08 Social History Smoking Status: Never smoker History 1 Elective abortions Hx Para 0 Spontaneous abortions Hx # Term Pregnancies Ectopic pregnancies Hx # Pregnancies Multiple births # of living children ROS Constitutional Constitutional: Reports systems reviewed and no addt'l complaints, except as documented; Denies headache(s) Eyes Eyes: Denies acute decrease in peripheral vision ENT HEENT: Reports systems reviewed and no addt'l complaints, except as documented Cardiovascular Cardiovascular: Denies chest pain or dizziness Respiratory/Chest Respiratory/Chest: Denies cough Gastrointestinal Gastrointestinal: Denies abdominal pain, diarrhea, nausea or vomiting Genitourinary Genitourinary: Denies abdominal discomfort Musculoskeletal Musculoskeletal: Denies limited range of motion Integumentary Integumentary: Reports systems reviewed and no addt'l complaints, except as documented Neurologic Neurologic: Reports systems reviewed and no addt'l complaints, except as documented Psychiatric Psychiatric: Reports systems reviewed and no addt'l complaints, except as documented Endocrine Endocrinology: Reports systems reviewed and no addt'l complaints, except as documented Hematologic/Lymphat ic Hematologic/Lymphat ic: Reports systems reviewed and no addt'l complaints, except as documented Allergic/Immunologi c Allergic/Immunologi c: Reports systems reviewed and no addt'l complaints, except as documented Physical Exam Const alert and oriented x3 General Appearance: cooperative Orientation / Consciousness: awake, oriented to person, oriented to place and oriented to time Exam Limitations: no limitations HEENT normocephalic Head and Scalp: normal to inspection, normocephalic and atraumatic Face and Sinus: normal facial exam Eyes General Eye: normal appearance of both eyes Neck full ROM Chest Chest: symmetrical chest wall rise Resp normal respiratory effort and normal air movement Auscultation: clear to auscultation bilaterally Cardio regular rate, regular rhythm, S1 normal heart sound, S2 normal heart sound, no murmurs, no rub, no gallops and no clicks GI normal to inspection, nondistended, normoactive bowel sounds and non-tender Narrative: Pain with palpation of pubic symphysis Bladder / Kidney Exam: no CVA tenderness Back/Spine normal ROM Extremity normal to inspection and full ROM Skin no rashes or lesions noted Neuro oriented x3 and moves all extremities Sensorium / Orientation: awake, alert and oriented to person Motor Exam: clonus absent Deep Tendon Reflexes: Rt Patellar (L4): 2+ and Lt Patellar (L4): 2+ NST FHR Rate Baby A Baseline: 145 Variability:: Moderate Accelerations:: 15 x 15 Decelerations:: Variable NST Reactive:: Yes Uterine Activity:: None Assessment Plan (1) Pain in symphysis pubis during : (2) 31 weeks gestation of : (3) POTS (postural orthostatic tachycardia syndrome): (4) Decreased movement: QUALIFIERS: Fetus number: single or un (more content not included)... Normal [facility] Protein+Creatinine Ratio,Uri neon 03-29-2025 PROT:CRE RATIO 181 mg/g CRE Normal 0-200 [facility] Comment on above: Performed By: #### L 300.8000, L501.4021, L100.0100 #### [facility] [address] [place], [address] Protein (U) [Mass/Vol] 10.6 mg/dL Normal 0.0-12.0 [facility] Comment on above: Performed By: #### L 300.8000, L501.4021, L100.0100 #### [facility] [address] [place], [address] UR CREAT 58.70 mg/dL Normal 28.00-217.00 [facility] Comment on above: Performed By: #### L 300.8000, L501.4021, L100.0100 #### [facility] [address] [place], [address] Serum Creatinine AND GFRon 1 05-29-2024 Creatinine [Mass/Vol] 0.53 mg/dL Low 0.70-1.20 [facility] Comment on above: Performed By: #### L 300.8000, L501.4021, L100.0100 #### [facility] [address] [place], [address] ECRCL 193.85 ml/min Normal 50-250 [facility] Comment on above: Performed By: #### L 300.8000, L501.4021, L100.0100 #### [facility] [address] [place], [address] GFR/1.73 sq M.predicted among non-blacks MDRD (S/P/Bld) [Vol rate/Area] 136 mL/min/{1.73_m2} Normal >60 [facility] Comment on above: Result Comment: mL/m in/1.73m2 CKD-EPI Creatinine Equation (2020) Performed By: #### L 300.8000, L501.4021, L100.0100 #### [facility] [address] [place], [address] Troponin T HS 2 HRon 025 Trop T High Sen Normal <=14 [facility] Comment on above: Result Comment: CARLOS ENT DISCHARGED Performed By: #### L 499.0042 #### [facility] [address] [place], [address] Uric Acidon 03-29-2025 URIC 3.3 mg/dL Normal 2.6-6.0 [facility] Comment on above: Result Comment: The drugs N-Acetylcysteine and Metamizole may falsely depress this assay. Performed By: #### L 300.8000, L501.4021, L100.0100 #### [facility] [address] [place], [address] Urinalysis, Completeon 03-29 EPI,SQUAMOUS 0-5 SEEN Normal 5-10 [facility] Comment on above: Order Comment: MINOO CTOR TO SPECIFY Performed By: #### L 400.0001 #### [facility] [address] [place], [address] RBC 0-5 SEEN Normal 0-5 [facility] Comment on above: Order Comment: MINOO CTOR TO SPECIFY Performed By: #### L 400.0001 #### [facility] [address] [place], [address] WBC 0-5 SEEN Normal 0-5 [facility] Comment on above: Order Comment: MINOO CTOR TO SPECIFY Performed By: #### L 400.0001 #### [facility] [address] [place], [address] BACTERIA 0 SEEN Normal None Seen [facility] Comment on above: Order Comment: COLLE CTOR TO SPECIFY Performed By: #### L 400.0001 #### [facility] [address] [place], [address] Mucus Ql (Urine sed) 0 SEEN Normal [facility] Comment on above: Order Comment: COLLE CTOR TO SPECIFY Performed By: #### L 400.0001 #### [facility] [address] [place], [address] Urinalysis, Routine (Dipstic k)on 03-29-2025 BILIRUBIN URINE Negative Normal Negative [facility] Comment on above: Order Comment: MINOO CTOR TO SPECIFY Performed By: #### L 300.8000, L501.4021, L100.0100 #### [facility] [address] [place], [address] Clarity (U) Clear Normal Clear [facility] Comment on above: Order Comment: [facility] CTOR TO SPECIFY Performed By: #### L 300.8000, L501.4021, L100.0100 #### [facility] [address] [place], [address] Color (U) Yellow Normal Yellow [facility] Comment on above: Order Comment: [facility] CTOR TO SPECIFY Performed By: #### L 300.8000, L501.4021, L100.0100 #### [facility] [address] [place], [address] GLUCOSE, UR 100 mg/dl Abnormal Normal [facility] Comment on above: Order Comment: [facility] CTOR TO SPECIFY Performed By: #### L 300.8000, L501.4021, L100.0100 #### [facility] [address] [place], [address] KETONE UR Negative Normal Negative [facility] Comment on above: Order Comment: [facility] CTOR TO SPECIFY Performed By: #### L 300.8000, L501.4021, L100.0100 #### [facility] [address] [place], [address] LEUK ESTERASE Negative Normal Negative [facility] Comment on above: Order Comment: MINOO CTOR TO SPECIFY Performed By: #### L 300.8000, L501.4021, L100.0100 #### [facility] [address] [place], [address] Nitrite Ql (U) Negative Normal Negative [facility] Comment on above: Order Comment: COLLE CTOR TO SPECIFY Performed By: #### L 300.8000, L501.4021, L100.0100 #### [facility] [address] [place], [address] OCCULT BLOOD-UR Negative Normal Negative [facility] Comment on above: Order Comment: MINOO CTOR TO SPECIFY Performed By: #### L 300.8000, L501.4021, L100.0100 #### [facility] [address] [place], [address] pH UR 6.5 Normal 5.0 - 8.0 [facility] Comment on above: Order Comment: MINOO CTOR TO SPECIFY Performed By: #### L 300.8000, L501.4021, L100.0100 #### [facility] [address] [place], [address] PROT DIPSTX 15 mg/dl Abnormal Negative [facility] Comment on above: Order Comment: MINOO CTOR TO SPECIFY Performed By: #### L 300.8000, L501.4021, L100.0100 #### [facility] [address] [place], [address] SP.GR. DIPSTX 1.015 Normal 1.002-1.030 [facility] Comment on above: Order Comment: MINOO CTOR TO SPECIFY Performed By: #### L 300.8000, L501.4021, L100.0100 #### [facility] [address] [place], [address] UROBILI Normal Normal Normal [facility] Comment on above: Order Comment: COLLE CTOR TO SPECIFY Performed By: #### L 300.8000, L501.4021, L100.0100 #### [facility] [address] [place], [address] OB Biophysical Prof W/O NSTo n 03-17-2025 OB Biophysical Prof W/O NST [facility] Imaging Services [address] [place], [place] [address] OB Biophysical Prof W/O NST MR#: [id number] Acct: [id number] Name: PAL NICHOLAS Rep #: [id number] : 2005 F 19 From: Gamaliel Jacobs MD PCP: Care Physician,No Primary Status: REG CLI Study: OB Biophysical Prof W/O NST Date of Exam: 02/25 07/21 Exam# [id number] Ordering Dr: Magda Aragon MD PROCEDURE: OB BIOPHYSICAL PROF W/O NST 03/17/2025 REASON FOR EXAM: DECREASED MOVEMENT TECHNIQUE: Procedure Code: USBIOWO Modality: US Procedure: OB BIOPHYSICAL PROF W/O NST FINDINGS Single live intrauterine in cephalic presentation. heart rate 141 bpm. age by LMP: 29 weeks 2 days. Amniotic fluid index measures 13.6 cm, within normal limits. Largest vertical pocket measures 3.4 to 3.7 cm. Placenta is anterior and not low-lying, grade 1. Incidental hypoechoic area seen near 29 cm transverse dimension. breathing movements, gross body movements, tone, and amniotic fluid volume are all normal. Biophysical profile score is 8 out of 8. US/OB Biophysical Prof W/O NST IMPRESSION: Single live intrauterine in cephalic presentation at approximately 29 weeks 2 days. Normal biophysical profile score of 8 out of 8. Normal amniotic fluid volume. Anterior placenta, grade 1, with a small incidental hypoechoic area noted. No sonographic evidence of distress. Reading Location: [address] CC: Dr. Magda Aragon MD; No Primary Care Physician [employer] Operator: Signed Normal [facility] OB Triage Physician Noteon 1 OB Triage Physician Note [facility] Medical Records Department [address] [place] [address] OB Triage Physician Note 03/17/252027 MR#: [id number] Acct: [id number] Name: PAL NICHOLAS Rep #: [id number] : 2005 19 From: Magda Aragon MD PCP: Care Physician,No Primary Status:REG CLI Y Location: [address] HPI - General General Date of Admission: 03/17/25 Date of Service: 03/17/25 Chief Complaint: DFM HPI Narrative PAL NICHOLAS, is a 19 F who presents with decreased movement. Has been having on and off contractions since tray server hours. No LOF no bleeding. A couple broken variables with contractions. Sent for BPP RAJ WNL 13. BPP 01/01. Received a 1000 cc IVF. Now feeling movement. Reactive tracing Maternal Data Information AMARI Calculator Estimated Delivery Date Method Current WG Current Estimate 05/31/25 Manual 29w 2d Final AMARI: 05/31/25 Gestational age: 29+2 PFSH PFS Medical History (Updated 03/17/25 @ 22:[address] Magda Aragon MD) POTS (postural orthostatic tachycardia syndrome) Myles-Danlos syndrome Home Medications ???Medication ???Instructions ???Recorded ???Last Taken ???Type aspirin 81 mg capsule 81 mg PO DAILY 02/02/25 03/16/25 H istory vit no.95-ferrous 1 tab PO DAILY 02/02/25 03/16/25 H istory fumarate 28 mg-folic acid 800 mcg tablet () Allergy/AdvReac Type Severity Reaction Status Date / Time No Known Allergies Allergy Verified 03/13/25 16:53 Social History Smoking Status: Never smoker History 1 Elective abortions Hx Para 0 Spontaneous abortions Hx # Term Pregnancies Ectopic pregnancies Hx # Pregnancies Multiple births # of living children Physical Exam Const alert and oriented x3 General Appearance: cooperative and comfortable HEENT normocephalic Resp normal respiratory effort GI soft to palpation and non-tender Inspection: gravid Extremity normal to inspection Skin no rashes or lesions noted Neuro oriented x3 and CN's II-XII intact bilaterally NST FHR Rate Baby A Baseline: 145 Variability:: Moderate Accelerations:: 15 x 15 Decelerations:: Variable (occasional early in monitoring) NST Reactive:: Yes Uterine Activity:: irregular low frequency Assessment Plan (1) Decreased movement: QUALIFIERS: Fetus number: single or unspecified fetus Trimester: third trimester Qualified Code(s): O36.8130 - Decreased movements, third trimester, not applicable or unspecified (2) 29 weeks gestation of : 03/17/252206 Date Magda Aragon MD Cosigner Signature (if applicable): Date __ CC: Dr. Magda Aragon MD; No Primary Care Physician Signed Normal [facility] Urinalysis, Routine (Dipstic k)on 03-17-2025 BILIRUBIN URINE Negative Normal Negative [facility] Comment on above: Order Comment: MINOO CTOR TO SPECIFY Performed By: #### L 300.8000, L501.4021, L100.0100 #### [facility] [address] [place], [place], [id number] Clarity (U) Clear Normal Clear [facility] Comment on above: Order Comment: MINOO CTOR TO SPECIFY Performed By: #### L 300.8000, L501.4021, L100.0100 #### [facility] [address] [place], [place], [id number] Color (U) Straw Normal Yellow [facility] Comment on above: Order Comment: MINOO CTOR TO SPECIFY Performed By: #### L 300.8000, L501.4021, L100.0100 #### [facility] [address] [place], [address] GLUCOSE, UR Normal Normal Normal [facility] Comment on above: Order Comment: COLLE CTOR TO SPECIFY Performed By: #### L 300.8000, L501.4021, L100.0100 #### [facility] [address] [place], [address] KETONE UR Negative Normal Negative [facility] Comment on above: Order Comment: COLLE CTOR TO SPECIFY Performed By: #### L 300.8000, L501.4021, L100.0100 #### [facility] [address] [place], [address] LEUK ESTERASE Negative Normal Negative [facility] Comment on above: Order Comment: COLLE CTOR TO SPECIFY Performed By: #### L 300.8000, L501.4021, L100.0100 #### [facility] [address] [place], [address] Nitrite Ql (U) Negative Normal Negative [facility] Comment on above: Order Comment: COLLE CTOR TO SPECIFY Performed By: #### L 300.8000, L501.4021, L100.0100 #### [facility] [address] [place], [address] OCCULT BLOOD-UR Negative Normal Negative [facility] Comment on above: Order Comment: COLLE CTOR TO SPECIFY Performed By: #### L 300.8000, L501.4021, L100.0100 #### [facility] [address] [place], [address] pH UR 6.0 Normal 5.0 - 8.0 [facility] Comment on above: Order Comment: COLLE CTOR TO SPECIFY Performed By: #### L 300.8000, L501.4021, L100.0100 #### [facility] [address] [place], [address] PROT DIPSTX Negative Normal Negative [facility] Comment on above: Order Comment: MINOO CTOR TO SPECIFY Performed By: #### L 300.8000, L501.4021, L100.0100 #### [facility] [address] [place], [address] SP.GR. DIPSTX 1.020 Normal 1.002-1.030 [facility] Comment on above: Order Comment: MINOO CTOR TO SPECIFY Performed By: #### L 300.8000, L501.4021, L100.0100 #### [facility] [address] [place], [address] UROBILI Normal Normal Normal [facility] Comment on above: Order Comment: MINOO CTOR TO SPECIFY Performed By: #### L 300.8000, L501.4021, L100.0100 #### [facility] [address] [place], [address] GLUCOSE GESTATIONAL, 1 HOURo n 03-15-2025 Glucose 1 Hr post Unsp challenge [Mass/Vol] 171 mg/dL Normal 74-179 [facility] Comment on above: Order Comment: Speci men Type: BLOOD SPECIMEN Ordering Facility: [facility] Address: [address] [place] [address] Result Comment: [facility] Congress of Obstetricians and Gynecologists (Ashish/Niko) guidelines state gestational diabetes mellitus is present when 2 or more of the plasma glucose concentrations meet or exceed the following levels: fastin mg/dl, 1 hr: 180 mg/dl, 2 hr: 155 mg/dl, and 3 hr: 140 mg/dl. Performed By: #### G TGST3 #### [facility] CLIA [id number] [address] [place] [address] [place] GLUCOSE GESTATIONAL, 2 HOURo n 03-15-2025 Glucose 2 Hr post Unsp challenge [Mass/Vol] 148 mg/dL Normal 74-154 [facility] Comment on above: Order Comment: Speci men Type: BLOOD SPECIMENOrdering Facility: [facility] Address: [address] [place] [address] Result Comment: [facility] Congress of Obstetricians and Gynecologists (Hinojosa/Milastan) guidelines state gestational diabetes mellitus is present when 2 or more of the plasma glucose concentrations meet or exceed the following levels: fastin mg/dl, 1 hr: 180 mg/dl, 2 hr: 155 mg/dl, and 3 hr: 140 mg/dl. Performed By: #### G TGST2 ####[facility] [id number] [place] [address] [place] GLUCOSE GESTATIONAL, 3 HOURo n 03-15-2025 Glucose 3 Hr post Unsp challenge [Mass/Vol] 135 mg/dL Normal 74-139 [facility] Comment on above: Order Comment: Speci maurilio Type: BLOOD SPECIMEN Ordering Facility: [facility] Address: [address] [place] [address] Result Comment: [facility] Congress of Obstetricians and Gynecologists ([facility]inoj[facility]) guidelines state gestational diabetes mellitus is present when 2 or more of the plasma glucose concentrations meet or exceed the following levels: fastin mg/dl, 1 hr: 180 mg/dl, 2 hr: 155 mg/dl, and 3 hr: 140 mg/dl. Performed By: #### G TGST3 #### [facility] CLIA [id number] [address] [place] [address] [place] GLUCOSE GESTATIONAL, FASTING on 03-15-2025 Glucose post fast [Mass/Vol] 88 mg/dL Normal 74-94 [facility] Comment on above: Order Comment: Speci men Type: BLOOD SPECIMEN Ordering Facility: [facility] Address: [address] [place] [address] Result Comment: [facility] Congress of Obstetricians and Gynecologists (Hinojosa/Milastan) guidelines state gestational diabetes mellitus is present when 2 or more of the plasma glucose concentrations meet or exceed the following levels: fastin mg/dl, 1 hr: 180 mg/dl, 2 hr: 155 mg/dl, and 3 hr: 140 mg/dl. Performed By: #### G TGST3 #### [facility] CLIA [id number] [address] [place] [address] [place] OB Triage Physician Noteon 1 OB Triage Physician Note [facility] Medical Records Department [address] [place] [address] OB Triage Physician Note 03/14/25 1247 MR#: [id number] Acct: [id number] Name: PAL NICHOLAS Rep #: [id number] : 2005 19 From: Patsy March CNM [...] Current Estimate 05/31/25 Manual 28w 6d PFSH PFSH Medical History (Updated 03/14/25 @ 12:49 by Patsy aMrch CNM) POTS (postural orthostatic tachycardia syndrome) Myles-Danlos [...] D/C home 03/14/25 1249 Date Patsy March [facility] Cosigner Signature (if applicable): Date __ CC: [facility] Patsy March; No Primary Care Physician Signed Normal [facility] ([facility]) Rupture Of Membraneson 03-13-2025 ROM Negative Normal Negative [facility] Comment on above: Result Comment: Amni otic fluid not present indicates No Rupture of Membranes at time of specimen collection. Performed By: #### L 205.1000 #### [facility] [address] [place], [place], [id number] BACTERIAL VAGINOSIS NAATon 1 Lactobacillus crispatus+gasseri+jense anastasia + Gardnerella vaginalis + Atopobium vaginae rRNA JOHN+probe Ql (Vag fld) Not detected Normal Not detected [facility] Comment on above: Order Comment: Speci men Type: SWABOrdering Facility: [facility] Address: [address] [place] [address] Performed By: #### Helder VAMP, CVTV ####[facility] [id number] [place] [address] [place] PARVEEN/TRICHOMONAS NAATon 1 C. glabrata RNA JOHN+probe Ql (Vag fld) Not detected Normal Not detected [facility] Comment on above: Order Comment: Speci men Type: SWABOrdering Facility: [facility] Address: [address] [place] [address] Performed By: #### Helder CONDON, CVTV ####[facility] [id number] [place] [address] Parveen sp DNA JOHN+probe Ql (Vag fld) Not detected Normal Not detected [facility] Comment on above: Order Comment: Speci men Type: SWABOrdering Facility: [facility] Address: [address] [place] [address] Result Comment: The Parveen species group target includes C. albicans, C. tropicalis, C. parapsilosis, and C. dubliniensis. Performed By: #### B VAMP CVTV ####[facility] [id number] [address] [place] T. vaginalis DNA JOHN+probe Ql (Unsp spec) Not detected Normal Not detected [facility] Comment on above: Order Comment: Speci men Type: SWABOrdering Facility: [facility] Address: [address] [place] [address] Performed By: #### B VAMP, CVTV ####[facility] [id number] [place] [address] [place] CBC panel Auto (Bld)on 03-11 Erythrocyte distribution width (RBC) [Ratio] 13.2 % Normal 11.5-15.0 [facility] Comment on above: Order Comment: Speci men Type: BLOOD SPECIMENOrdering Facility: [facility] Address: [address] [place] [address] Performed By: #### 5 8410-2 ####[facility] [id number] [place] [address] [place] Hematocrit (Bld) [Volume fraction] 32.7 % Low 36.0-46.0 [facility] Comment on above: Order Comment: Speci men Type: BLOOD SPECIMENOrdering Facility: [facility] Address: [address] [place] [address] Performed By: #### 5 8410-2 ####[facility] [id number] [place] [address] [place] Hemoglobin (Bld) [Mass/Vol] 11.7 g/dL Normal 11.5-15.5 [facility] Comment on above: Order Comment: Speci men Type: BLOOD SPECIMENOrdering Facility: [facility] Address: [address] [place] [address] Performed By: #### 5 8410-2 ####[facility] [id number] [address] [place] MCH (RBC) [Entitic mass] 31.7 pg Normal 26.0-34.0 [facility] Comment on above: Order Comment: Speci men Type: BLOOD SPECIMENOrdering Facility: [facility] Address: [address] [place] [address] Performed By: #### 5 8410-2 ####[facility] [id number] [place] [address] [place] MCHC (RBC) [Mass/Vol] 35.8 g/dL Normal 30.5-36.0 [facility] Comment on above: Order Comment: Speci men Type: BLOOD SPECIMENOrdering Facility: [facility] Address: [address] [place] [address] Performed By: #### 5 8410-2 ####[facility] [id number] [place] [address] [place] MCV (RBC) [Entitic vol] 88.6 fL Normal 80.0-100.0 [facility] Comment on above: Order Comment: Speci men Type: BLOOD SPECIMENOrdering Facility: [facility] Address: [address] [place], [place] [id number] Performed By: #### 5 8410-2 ####[facility] [id number] [address] [place] Nucleated RBC (Bld) [#/Vol] 10*3/uL Normal <0.01 [facility] Comment on above: Order Comment: Speci men Type: BLOOD SPECIMENOrdering Facility: [facility] Address: [address] [place] [address] Performed By: #### 5 8410-2 ####[facility] [id number] [place] [address] [place] Platelet mean volume (Bld) [Entitic vol] 9.5 fL Normal 9.0-12.7 [facility] Comment on above: Order Comment: Speci men Type: BLOOD SPECIMENOrdering Facility: [facility] Address: [address] [place] [address] Performed By: #### 5 8410-2 ####[facility] [id number] [place] [address] [place] Platelets (Bld) [#/Vol] 244 10*3/uL Normal 150-400 [facility] Comment on above: Order Comment: Speci men Type: BLOOD SPECIMENOrdering Facility: [facility] Address: [address] [place] [address] Performed By: #### 5 8410-2 ####[facility] [id number] [place] [address] [place] RBC (Bld) [#/Vol] 3.69 10*6/uL Low 3.90-5.20 [facility] Comment on above: Order Comment: Speci men Type: BLOOD SPECIMENOrdering Facility: [facility] Address: [address] [place] [address] Performed By: #### 5 8410-2 ####[facility] [id number] [place] [address] [place] WBC (Bld) [#/Vol] 11.16 10*3/uL High 3.70-11.00 [facility] Comment on above: Order Comment: Speci men Type: BLOOD SPECIMENOrdering Facility: [facility] Address: [address] [place] [address] Performed By: #### 5 8410-2 ####[facility] [id number] [place] [address] [place] GESTATIONAL GLUCOSE SCREEN, 1-HOUR, 50 GRAM, NON-FASTINGon 03-11-2025 Glucose [Mass/Vol] 152 mg/dL High 74-134 [facility] Comment on above: Order Comment: Speci men Type: BLOOD SPECIMENOrdering Facility: [facility] Address: [address] [place] [address] Result Comment: [facility] Congress of Obstetricians and Gynecologists (Ashish/Niko) guidelines state a gestational diabetes mellitus positive screen is made, in women not previously diagnosed with overt diabetes, when the 1 hr plasma glucose level is equal to or above 140 mg/dL. The [facility] Bioanalyst and [facility] recommends a 135 mg/dL cutoff. Performed By: #### G LTGST ####[facility] [id number] [place] [address] [place] MYCOPLASMA GENITALIUM NAATon 03-11-2025 M. genitalium DNA JOHN+probe Ql (U) Not detected Normal Not detected [facility] Comment on above: Order Comment: Speci men Type: BLOOD SPECIMEN Ordering Facility: [facility] Address: [address] [place] [address] Performed By: #### G TGST3 #### [facility] CLIA [id number] [address] [place] [address] [place] Reagin and Treponema pallidu m IgG and IgM [Interp]on 03-11-2025 T. pallidum IgG+IgM IA Ql (S) Non-Reactive Normal Nonreactive [facility] Comment on above: Order Comment: Speci men Type: BLOOD SPECIMEN Ordering Facility: [facility] Address: [address] [place] [address] Performed By: #### G TGST3 #### [facility] CLIA [id number] [address] [place] [address] [place] Reagin+T pallidum IgG+IgM Se rPl-Impon 03-11-2025 Reagin and Treponema pallidum IgG and IgM [Interp] Cannot exclude recent Treponemal infection if specimen collected within 7-10 days after appearance of suspect lesions or 2-3 weeks after an exposure. Clinical correlation is required. Normal [facility] Comment on above: Order Comment: Speci men Type: BLOOD SPECIMEN Ordering Facility: [facility] Address: [address] [place] [address] Performed By: #### G TGST3 #### [facility] CLIA [id number] [address] [place] [address] [place] TYPE + SCREEN PRENATALon ABO O Normal [facility] Comment on above: Order Comment: Speci men Type: BLOOD SPECIMENOrdering Facility: [facility] Address: [address] [place] [address] Performed By: #### T SPN ####[facility] [id number] [place] [address] [place] Rh Nom (Bld) Negative Normal [facility] Comment on above: Order Comment: Speci men Type: BLOOD SPECIMENOrdering Facility: [facility] Address: [address] [place] [address] Performed By: #### T SPN ####[facility] [id number] [place] [address] [place] TYPE AND SCREEN EXPIRATION 03/14/2025 23:[address] [facility] Comment on above: Order Comment: Speci men Type: BLOOD SPECIMENOrdering Facility: [facility] Address: [address] [place] [address] Performed By: #### T SPN ####[facility] [id number] [place] [id number] [place] CNOVon 03-08-2025 CNOV Office Visit (AGCARDHWG) ---- PAL NICHOLAS ([id number]) 3 Date Time Provider Department 03/08/25 9:20 AM [...] the provider ID). REFERRING PHYSICIAN: Lynnette Amado [facility] [address] CHIEF COMPLAINT: Abnormal EKG HISTORY OF PRESENT [...] of illicit drugs. 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 She has 1 other sibling. She is here in the office with her mom. Paternal grandfather suddenly at age 49. She stated the diagnosis of Myles-Danlos was made by a events traffic controller and opto mechanical technician. She is not sure if she had genetic testing. PAST MEDICAL HISTORY Diagnosis Date Asthma (HCC) 2012 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HCC) POTS (postural orthostatic tachycardia syndrome) Recurrent UTI History reviewed. No pertinent surgical history. MEDICATIONS: Catheter (SELF-CATHETER, FEMALE) 14 Fr misc 1 Units once daily as needed. pseudoephed/acetami noph/diphen (BENADRYL COLD ORAL) Take by mouth. aspirin, [...] S1/S2; no murmurs, gallops, or rubs Abdomen: [place] distended. Nontender. EXTREMETIES: No peripheral edema. Grade [...] (more content not included)... Normal [facility] OB Triage Physician Noteon 0 02-23-2025 OB Triage Physician Note [facility] Medical Records Department [address] [place] [address] OB Triage Physician Note 02/23/252054 MR#: [id number] Acct: [id number] Name: PAL NICHOLAS Rep #: [id number] : 2005 19 From: Lester Phillips MD PCP: Care Physician,No Primary Status:REG CLI Y Location: [place] [id number] HPI - General General Date of Service: 02/23/25 HPI Narrative PAL NICHOLAS, is a 19 F who presents back pain, side pain and some contractions. Maternal Data Information AMARI Calculator Estimated Delivery Date Method Current WG Current Estimate 05/31/25 Manual 26w 1d [facility] Medical History (Updated 02/23/25 @ 20:56 [...] Phillips MD Cosigner Signature (if applicable): Date __ CC: Dr. Lester Phillips MD; No Primary Care Physician Signed Normal [facility] PAL NICHOLAS ([id number]) 3 F Date Time Provider Department 02/22/25 KARI JOHNSTON GYURWP During your visit today, we recorded the following information about you: Deep Owen RN 02/22/2025 11:09 AM Signed Called patient in regards to catheter supplies per request of Kari Ngueyn MD P [facility]; P [facility] Schedulers Pool I placed an order for complete intermittent self-catheterizaion catheters. Please coordinate obtaining these for the patient. Thank you LVMTCB. Deep Owen RN Allergies As of Date: 02/22/2025 (No Known Allergies) Date Reviewed: 02/18/2025 Reviewed by: Kari Johnston MD - Fully Assessed Prescriptions as of 02/22/2025 - Catheter (SELF-CATHETER, FEMALE) 14 Fr misc 1 Units once daily as needed. - pseudoephed/acetami noph/diphen (BENADRYL COLD ORAL) Take by mouth. - [...] Encounter Status:Closed by DEEP OWEN on 02/22/25 [facility] Yajaira 02-18-2025 CNOV Office Visit (GYKARSTENF) ---- PAL NICHOLAS ([id number]) 3 F Date Time Provider Department 02/18/25 11:30 AM KARI JOHNSTON During your visit today, we recorded the following information about you: Weight 80.8 kg Kari Johnston MD 02/18/2025 1:16 PM Signed Female Pelvic Medicine AND Reconstructive Surgery Consult Recording using [employer] software for draft documentation of the visit was discussed with the patient/authorized telesales representative; all questions welcomed and answered. Patient/authorized telesales representative agreed to proceed CHIEF COMPLAINT: Pal [...] to void. She was taught to perform self-catheterizatio n and has been using straight catheters as [...] Known Allergies Current Outpatient Medications Medication Sig pseudoephed/acetami noph/diphen (BENADRYL COLD ORAL) Take by mouth. aspirin, [...] not taking: Reported on 02/16/2025) No current facility-administer ed medications for this visit. History reviewed. No [...] Skin: Negative for pallor, rash and wound. Allergic/Immunologi c: Negative for environmental allergies, food allergies and immunocompromised state. Neurological: Negative for dizziness, seizures, facial asymmetry, speech difficulty, light-headedness, numbness and headaches. Hematological: Nega (more content not included)... Normal [facility] 02-16-2025 [facility] Telephone (AKPOB) ---- PAL NICHOLAS ([id number]) 3 F Date Time Provider Department 02/16/25 CLEM SAAVEDRA AKPOB During your visit today, we recorded the [...] Fully Assessed Prescriptions as of 02/16/2025 - pseudoephed/acetami noph/diphen (BENADRYL COLD ORAL) Take by mouth. - [...] Encounter Status:Closed by CLEM SAAVEDRA on 02/16/25 [facility] 02-15-2025 [facility] Telephone (AKPOB) ---- PAL NICHOLAS ([id number]) 3 F Date Time Provider Department 02/15/25 [...] CLEM SAAVEDRA on 02/15/25 Normal [facility] Bacteria Ur Culton 5 Bacteria identified Cx Nom (U) CULTURE, URINE: No growth (<100 CFU/ml) Normal [facility] Comment on above: Performed By: #### 6 30-4, 32877-2 #### [facility] CLIA [id number] [address] OB Triage Physician Noteon 0 02-13-2025 OB Triage Physician Note [facility] Medical Records Department [address] [place] [address] OB Triage Physician Note 02/13/25 2321 MR#: [id number] Acct: [id number] Name: PAL NICHOLAS Rep #: [id number] : 2005 19 From: Magda Aragon MD PCP: Care Physician,No Primary Status:DEP CLI Y Location: [facility] General Date of Service: 02/13/25 Chief Complaint: pain HPI Narrative PAL NICHOLAS, is a 19 F who presents with bladder pain and unable to void. Was in Triage at [facility] early and had straight cath for [...] Aragon MD Cosigner Signature (if applicable): Date __ CC: Dr. Magda Aragon MD; No Primary Care Physician Signed Normal [facility] Urinalysis complete panel (U )on 02-13-2025 Bilirubin Ql (U) Negative Normal Negative [facility] Comment on above: Order Comment: Speci men Type: URINE SPECIMEN Ordering Facility: [facility] Address: [address] [place] [address] Performed By: #### 6 30-4, 88304-7 #### [facility] CLIA [id number] [address] Clarity (Unsp spec) Clear Normal Clear [facility] Comment on above: Order Comment: Speci men Type: URINE SPECIMEN Ordering Facility: [facility] Address: [facility] [place] [address] Performed By: #### 6 30-4, 26334-3 #### [facility] CLIA [id number] [address] Color (U) Light Yellow Normal yellow [facility] Comment on above: Order Comment: Speci men Type: URINE SPECIMEN Ordering Facility: [facility] Address: [address] [place] [address] Performed By: #### 6 30-4, 56085-4 #### [facility] CLIA [id number] [address] Epithelial cells LM.HPF (Urine sed) [#/Area] Few Abnormal None Seen [facility] Comment on above: Order Comment: Speci men Type: URINE SPECIMEN Ordering Facility: [facility] Address: [address] [place] [address] Performed By: #### 6 30-4, 18062-1 #### [facility] CLIA [id number] [address] Glucose Test strip (U) [Mass/Vol] Negative Normal Trace, Negative [facility] Comment on above: Order Comment: Speci men Type: URINE SPECIMEN Ordering Facility: [facility] Address: [address] [place] [address] Performed By: #### 6 30-4, 95768-6 #### [facility] CLIA [id number] [address] Hemoglobin Ql (U) Negative Normal Negative, Trace [facility] Comment on above: Order Comment: Speci men Type: URINE SPECIMEN Ordering Facility: [facility] Address: [address] [place] [address] Performed By: #### 6 30-4, 43059-1 #### [facility] CLIA [id number] [address] Ketones Ql (U) Negative Normal Negative, Trace [facility] Comment on above: Order Comment: Speci men Type: URINE SPECIMEN Ordering Facility: [facility] Address: [address] [place] [address] Performed By: #### 6 30-4, 16094-6 #### [facility] CLIA [id number] [address] Leukocyte esterase Test strip Ql (U) 75 Maryann/uL Abnormal Negative, 25 Maryann/uL [facility] Comment on above: Order Comment: Speci men Type: URINE SPECIMEN Ordering Facility: [facility] Address: [address] [place] [address] Performed By: #### 6 30-4, 91320-4 #### [facility] CLIA [id number] [address] Nitrite Ql (U) Negative Normal Negative [facility] Comment on above: Order Comment: Speci men Type: URINE SPECIMEN Ordering Facility: [facility] Address: [address] [place] [address] Performed By: #### 6 30-4, 12095-5 #### [facility] CLIA [id number] [address] pH (U) 7.0 [pH] Normal 5.0-8.0 [facility] Comment on above: Order Comment: Speci men Type: URINE SPECIMEN Ordering Facility: [facility] Address: [address] [place] [address] Performed By: #### 6 30-4, 66908-7 #### [facility] CLIA [id number] [address] Protein (U) [Mass/Vol] Negative Normal Trace , Negative [facility] Comment on above: Order Comment: Speci men Type: URINE SPECIMEN Ordering Facility: [facility] Address: [facility] [place] [address] Performed By: #### 6 30-4, 85812-5 #### [facility] CLIA [id number] [address] RBC LM.HPF (Urine sed) [#/Area] 0-3 /HPF Normal 0-3 /HPF [facility] Comment on above: Order Comment: Speci men Type: URINE SPECIMEN Ordering Facility: [facility] Address: [address] [place] [address] Performed By: #### 6 30-4, 03139-1 #### [facility] CLIA [id number] [address] Specific gravity (U) [Rel density] 1.019 Normal 1.005-1.030 [facility] Comment on above: Order Comment: Speci men Type: URINE SPECIMEN Ordering Facility: [facility] Address: [address] [place] [address] Performed By: #### 6 30-4, 31388-2 #### [facility] CLIA [id number] [address] [place] [address] Urobilinogen Ql (U) Normal Normal Normal [facility] Comment on above: Order Comment: Speci men Type: URINE SPECIMEN Ordering Facility: [facility] Address: [address] [place] [address] Performed By: #### 6 30-4, 57650-6 #### [facility] CLIA [id number] [address] [place] [address] WBC LM.HPF (Urine sed) [#/Area] 11-25 /HPF Abnormal 0-5 /HPF [facility] Comment on above: Order Comment: Speci men Type: URINE SPECIMEN Ordering Facility: [facility] Address: [address] [place] [address] Performed By: #### 6 30-4, 19462-3 #### [facility] CLIA [id number] [address] BACTERIAL VAGINOSIS NAATon 0 02-08-2025 Interpretation and review of laboratory results Normal [facility] Lactobacillus crispatus+gasseri+jense anastasia + Gardnerella vaginalis + Atopobium vaginae rRNA JOHN+probe Ql (Vag fld) Not detected Not detected [facility] Lactobacillus crispatus+gasseri+jense anastasia + Gardnerella vaginalis + Atopobium vaginae rRNA JOHN+probe Ql (Vag fld) Not detected Normal Not detected [facility] Comment on above: Order Comment: Speci men Type: BLOOD SPECIMEN Ordering Facility: [facility] Address: [address] [place] [address] Performed By: #### G TGST3 #### [facility] CLIA [id number] [address] [place] [address] [place] Bacteria Ur Culton Bacteria identified Cx Nom (U) CULTURE, URINE: No growth (<1,000 CFU/ml) Normal [facility] Comment on above: Performed By: #### 6 30-4 #### [facility] CLIA [id number] [address] [place] [address] [place] PARVEEN/TRICHOMONAS NAATon 0 02-08-2025 C. glabrata RNA JOHN+probe Ql (Vag fld) Not detected Not detected [facility] Parveen sp DNA JOHN+probe Ql (Vag fld) Not detected Not detected [facility] Comment on above: The Parveen species group target includes C. albicans, C. tropicalis, C. parapsilosis, and C. dubliniensis. Interpretation and review of laboratory results Normal [facility] T. vaginalis DNA JOHN+probe Ql (Unsp spec) Not detected Not detected [facility] C. glabrata RNA JOHN+probe Ql (Vag fld) Not detected Normal Not detected [facility] Comment on above: Order Comment: Speci men Type: BLOOD SPECIMEN Ordering Facility: [facility] Address: [address] [place] [address] Performed By: #### G TGST3 #### [facility] CLIA [id number] [address] [place] [address] [place] Parveen sp DNA JOHN+probe Ql (Vag fld) Not detected Normal Not detected [facility] Comment on above: Order Comment: Speci men Type: BLOOD SPECIMEN Ordering Facility: [facility] Address: [address] [place] [address] Result Comment: The Parveen species group target includes C. albicans, C. tropicalis, C. parapsilosis, and C. dubliniensis. Performed By: #### G TGST3 #### [facility] CLIA [id number] [address] [place] [address] [place] T. vaginalis DNA JOHN+probe Ql (Unsp spec) Not detected Normal Not detected [facility] Comment on above: Order Comment: Speci men Type: BLOOD SPECIMEN Ordering Facility: [facility] Address: [address] [place] [address] Performed By: #### G TGST3 #### [facility] CLIA [id number] [address] [place] [address] [place] UA DIP, URINE (POC)on 2024 BILIRUBIN UA (POCT) Negative Negative [facility] CLARITY UA (POCT) Clear [facility] COLOR UA (POCT) Yellow [facility] GLUCOSE UA (POCT) Negative Negative mg/dL [facility] Hemoglobin Ql (U) Negative Negative [facility] KETONE UA (POCT) Negative Negative mg/dL [facility] LEUKOCYTES UA (POCT) Negative Negative [facility] NITRITE UA (POCT) Negative Negative [facility] PH UA (POCT) 7.0 4.5 - 8.0 [facility] Protein Ql (U) Negative Negative mg/dL [facility] SPECIFIC GRAVITY UA (POCT) 1.010 1.005 - 1.030 [facility] UROBILINOGEN UA (POCT) 0.2 Normal E.U./d L [facility] Location:[facility], [address] [place] [address], [address] [place] [address] POINT OF CARE [facility] Urine Cultureon 02-06-2025 URC Culture exhibits no growth. Normal [facility] Comment on above: Performed By: #### L 300.8000, L501.4021, L100.0100 #### [facility] [address] [place], [address] [facility] CNPN Telephone (OBGYWM) ---- PAL NICHOLAS ([id number]) 3 F Date Time Provider Department 02/05/25 LYNNETTE TAPIA OBCARLOSWBarbara During your visit today, we recorded [...] fluid. Patient advised to go to [facility] for evaluation. [facility] notified. Jocelyne Black RN Allergies [...] Status:Closed by JOCELYNE BLACK on 02/05/[address] [facility] OB Triage Physician Noteon 0 02-05-2025 OB Triage Physician Note [facility] Medical Records Department [address] [place] [address] OB Triage Physician Note 02/05/25 1742 MR#: [id number] Acct: [id number] Name: PAL NICHOLAS Rep #: [id number] : 2005 19 From: Lynnette Tapia CNM PCP: Care Physician,No Primary Status:REG CLI Y Location: [place] [address] HPI - General General Chief Complaint: ctx's [...] days #13 caps 01/25 07/21 Unknown Rx monohydrate/macrocr ystals 100 mg capsule (Macrobid) Allergy/AdvReac Type Severity [...] home with follow up in office 02/05/25 0086 Date Lynnette Swartzignzofia Signature (if applicable): Date __ CC: HUMPHREY Tapia; No Primary Care Physician Signed Normal [facility] Bilirubin Test strip Ql (U)O rdered By: Ramakrishna Corley on 02-04-2025 Bilirubin Ql (U) Negative Negative [facility] Ketones Test strip Ql (U)Ord ered By: Ramakrishna Corley on 02-04-2025 Ketones Ql (U) Negative Negative [facility] Nitrite Test strip Ql (U)Ord ered By: Ramakrishna Corley on 02-04-2025 Nitrite Ql (U) Negative Negative [facility] OB Triage Physician Noteon 0 02-04-2025 OB Triage Physician Note [facility] Medical Records Department [address] [place] [address] OB Triage Physician Note 02/04/25 9815 MR#: [id number] Acct: [id number] Name: PAL NICHOLAS Rep #: [id number] : 2005 19 From: Ramakrishna Corley DO PCP: Care Physician,No Primary Status:REG CLI Y Location: [address] [facility] Date of Service: 02/04/25 Chief Complaint: ctx's HPI Narrative PAL NICHOLAS, is a 19 F who presents ctx's. She states she has had contractions and abdominal pain for 1-2 weeks. Went to [facility] 2 weeks ago for this and [...] vb or lof. No constipation or diarrhea. [facility] Medical History (Updated 02/05/25 @ 00:00 [...] (1) 23 weeks gestation of : (2) Hardy Zaragoza' contraction: COMMENT: cervix closed PLAN: Cervix [...] Corley DO Cosigner Signature (if applicable): Date __ CC: Dr. Ramakrishna Corley, DO; No Primary Care Physician Signed Normal [facility] Protein Test strip Ql (U)Ord ered By: Ramakrishna Corley on 02-04-2025 Protein Ql (U) Negative Negative [facility] Urinalysis, Routine (Dipstic k)on 02-04-2025 BILIRUBIN URINE Negative Normal Negative [facility] Comment on above: Order Comment: CLEAN CATCH Performed By: #### L 300.8000, L501.4021, L100.0100 #### [facility] [address] [place], [address] Clarity (U) Clear Normal Clear [facility] Comment on above: Order Comment: CLEAN CATCH Performed By: #### L 300.8000, L501.4021, L100.0100 #### [facility] [address] [place], [address] Color (U) Yellow Normal Yellow [facility] Comment on above: Order Comment: CLEAN CATCH Performed By: #### L 300.8000, L501.4021, L100.0100 #### [facility] [address] [place], [address] GLUCOSE, UR Normal Normal Normal [facility] Comment on above: Order Comment: CLEAN CATCH Performed By: #### L 300.8000, L501.4021, L100.0100 #### [facility] [address] [place], [address] KETONE UR Negative Normal Negative [facility] Comment on above: Order Comment: CLEAN CATCH Performed By: #### L 300.8000, L501.4021, L100.0100 #### [facility] [address] [place], [address] LEUK ESTERASE 25 /ul Abnormal Negative [facility] Comment on above: Order Comment: CLEAN CATCH Performed By: #### L 300.8000, L501.4021, L100.0100 #### [facility] [address] [place], [address] Nitrite Ql (U) Negative Normal Negative [facility] Comment on above: Order Comment: CLEAN CATCH Performed By: #### L 300.8000, L501.4021, L100.0100 #### [facility] [address] [place], [address] OCCULT BLOOD-UR Negative Normal Negative [facility] Comment on above: Order Comment: CLEAN CATCH Performed By: #### L 300.8000, L501.4021, L100.0100 #### [facility] [address] [place], [address] pH UR 6.5 Normal 5.0 - 8.0 [facility] Comment on above: Order Comment: CLEAN CATCH Performed By: #### L 300.8000, L501.4021, L100.0100 #### [facility] [address] [place], [address] PROT DIPSTX Negative Normal Negative [facility] Comment on above: Order Comment: CLEAN CATCH Performed By: #### L 300.8000, L501.4021, L100.0100 #### [facility] [address] [place], [address] SP.GR. DIPSTX 1.015 Normal 1.002-1.030 [facility] Comment on above: Order Comment: CLEAN CATCH Performed By: #### L 300.8000, L501.4021, L100.0100 #### [facility] [address] [place], [address] UROBILI Normal Normal Normal [facility] Comment on above: Order Comment: CLEAN CATCH Performed By: #### L 300.8000, L501.4021, L100.0100 #### [facility] [address] [place], [address] Urine Cultureon 02-04-2025 URC Culture exhibits no growth. Normal [facility] Comment on above: Performed By: #### L 300.8000, L501.4021, L100.0100 #### [facility] [address] [place], [address] Urine clarityOrdered By: Benjamin Corley on 02-04-2025 Clarity (U) Clear Clear [facility] Urine color determinationOrd ered By: Ramakrishna Corley on 02-04-2025 Color (U) Yellow Yellow [facility] Urine cultureOrdered By: Benjamin Corley on 02-04-2025 Bacteria identified Cx Nom (U) Culture exhibits no growth. [facility] Urine glucose detectionOrder ed By: Ramakrishna Corley on 02-04-2025 Glucose Ql (U) Normal mg/dl Normal [facility] Urine leukocyte esterase det ection by dipstickOrdered By: Ramakrishna Corley on 02-04-2025 Leukocyte esterase Test strip Ql (U) 25 /ul High Negative [facility] Urine pHOrdered By: Ramakrishna mcpherson on 02-04-2025 pH (U) 6.5 [pH] 5.0 - 8.0 [facility] Urine specific gravity measu rementOrdered By: Ramakrishna Corley on 02-04-2025 Specific gravity (U) [Rel density] 1.015 1.002-1.030 [facility] Urine urobilinogen measureme ntOrdered By: Ramakrishna Corley on 02-04-2025 Urobilinogen Ql (U) Normal mg/dl Normal [facility] Bilirubin Test strip Ql (U)O rdered By: Magda Aragon on 02-02-2025 Bilirubin Ql (U) Negative Negative [facility] Ketones Test strip Ql (U)Ord ered By: Magda Aragon on 02-02-2025 Ketones Ql (U) Negative Negative [facility] Microscopic analysis of urin e for red blood cells (RBC)Ordered By: Magda Aragon on 02-02-2025 Microscopic analysis of urine for red blood cells (RBC) 0 SEEN /hpf 0-5 [facility] Mucus LM Ql (Urine sed)Order ed By: Magda Aragon on 02-02-2025 Mucus Ql (Urine sed) 0 SEEN /hpf [facility] Nitrite Test strip Ql (U)Ord ered By: Magda Aragon on 02-02-2025 Nitrite Ql (U) Negative Negative [facility] OB Triage Physician Noteon 0 02-02-2025 OB Triage Physician Note [facility] Medical Records Department [address] [place] [address] OB Triage Physician Note 02/02/25 2336 MR#: [id number] Acct: [id number] Name: PAL NICHOLAS Rep #: [id number] : 2005 19 From: Magda Aragon MD PCP: Care Physician,No Primary Status:REG CLI Y Location: [place] [address] HPI - General General Date of Admission: 02/02/25 Date of Service: 02/02/25 Chief Complaint: cramping HPI Narrative PAL NICHOLAS, is a 19 F who presents cramping. No bleeding. Some movement. Was seen in office today with normal discharge. Maternal Data Information Final AMARI: 05/31/25 Gestational age: 22 [facility] Medical History (Updated 02/02/25 @ 23:38 by [...] (1) 23 weeks gestation of : (2) Hardy Zaragoza' contraction: COMMENT: cervix closed 02/02/25 9458 Date Magda Aragon MD Cosigner Signature (if applicable): Date __ CC: Dr. Magda Aragon MD; No Primary Care Physician Signed Normal [facility] Protein Test strip Ql (U)Ord ered By: Magda Aragon on 02-02-2025 Protein Ql (U) 15 mg/dl High Negative [facility] Squamous epithelial cells de tection in urine sediment by light microscopyOrdered By: Magda Aragon on 02-02-2025 Epithelial cells.squamous LM Ql (Urine sed) 0-5 SEEN /hpf 5-10 [facility] UA DIP, URINE (POC)on 2024 BILIRUBIN UA (POCT) Negative Negative [facility] CLARITY [facility] (POCT) [facility]) Yellow [facility] GLUCOSE UA (POCT) Negative Negative mg/dL [facility] Hemoglobin Ql (U) Negative Negative [facility] KETONE UA (POCT) Negative Negative mg/dL [facility] LEUKOCYTES UA (POCT) Negative Negative [facility] NITRITE UA (POCT) Negative Negative [facility] PH UA (POCT) 7.0 4.5 - 8.0 [facility] Protein Ql (U) Negative Negative mg/dL [facility] SPECIFIC GRAVITY UA (POCT) 1.010 1.005 - 1.030 [facility] UROBILINOGEN UA (POCT) 0.2 Normal E.U./d L [facility] Location:[facility], [address], [place], [address] [facility] POINT OF CARE [facility] Urinalysis, Completeon 02-02 EPI,SQUAMOUS 0-5 SEEN Normal 5-10 [facility] Comment on above: Order Comment: CLEAN CATCH Performed By: #### L 400.0001 #### [facility] [address] [place], [address] BACTERIA 0 SEEN Normal None Seen [facility] Comment on above: Order Comment: CLEAN CATCH Performed By: #### L 400.0001 #### [facility] [address] [place], [address] Mucus Ql (Urine sed) 0 SEEN Normal [facility] Comment on above: Order Comment: CLEAN CATCH Performed By: #### L 400.0001 #### [facility] [address] [place], [address] RBC 0 SEEN Normal 0-5 [facility] Comment on above: Order Comment: CLEAN CATCH Performed By: #### L 400.0001 #### [facility] [address] [place], [address] WBC 0 SEEN Normal 0-5 [facility] Comment on above: Order Comment: CLEAN CATCH Performed By: #### L 400.0001 #### [facility] [address] [place], [address] BACTERIA Normal None Seen [facility] Comment on above: Order Comment: COLLE CTOR TO SPECIFY Result Comment: Canc elled via OM: Order edited - Discontinuing original order Performed By: #### L 300.8000, L501.4021, L100.0100 #### [facility] [address] [place], [address] BILIRUBIN URINE Normal Negative [facility] Comment on above: Order Comment: COLLE CTOR TO SPECIFY Result Comment: Canc elled via OM: Order edited - Discontinuing original order Performed By: #### L 300.8000, L501.4021, L100.0100 #### [facility] [address] [place], [address] Clarity (U) Normal Clear [facility] Comment on above: Order Comment: COLLE CTOR TO SPECIFY Result Comment: Canc elled via OM: Order edited - Discontinuing original order Performed By: #### L 300.8000, L501.4021, L100.0100 #### [facility] [address] [place], [address] Color (U) Normal Yellow [facility] Comment on above: Order Comment: COLLE CTOR TO SPECIFY Result Comment: Canc elled via OM: Order edited - Discontinuing original order Performed By: #### L 300.8000, L501.4021, L100.0100 #### [facility] [address] [place], [address] EPI,SQUAMOUS Normal 5-10 [facility] Comment on above: Order Comment: COLLE CTOR TO SPECIFY Result Comment: Canc elled via OM: Order edited - Discontinuing original order Performed By: #### L 300.8000, L501.4021, L100.0100 #### [facility] [address] [place], [address] GLUCOSE, UR Normal Normal [facility] Comment on above: Order Comment: COLLE CTOR TO SPECIFY Result Comment: Canc elled via OM: Order edited - Discontinuing original order Performed By: #### L 300.8000, L501.4021, L100.0100 #### [facility] [address] [place], [address] KETONE UR Normal Negative [facility] Comment on above: Order Comment: COLLE CTOR TO SPECIFY Result Comment: Canc elled via OM: Order edited - Discontinuing original order Performed By: #### L 300.8000, L501.4021, L100.0100 #### [facility] [address] [place], [address] LEUK ESTERASE Normal Negative [facility] Comment on above: Order Comment: COLLE CTOR TO SPECIFY Result Comment: Canc elled via OM: Order edited - Discontinuing original order Performed By: #### L 300.8000, L501.4021, L100.0100 #### [facility] [address] [place], [address] Mucus Ql (Urine sed) Normal [facility] Comment on above: Order Comment: COLLE CTOR TO SPECIFY Result Comment: Canc elled via OM: Order edited - Discontinuing original order Performed By: #### L 300.8000, L501.4021, L100.0100 #### [facility] [address] [place], [address] Nitrite Ql (U) Normal Negative [facility] Comment on above: Order Comment: COLLE CTOR TO SPECIFY Result Comment: Canc elled via OM: Order edited - Discontinuing original order Performed By: #### L 300.8000, L501.4021, L100.0100 #### [facility] [address] [place], [address] OCCULT BLOOD-UR Normal Negative [facility] Comment on above: Order Comment: MINOO CTOR TO SPECIFY Result Comment: Canc elled via OM: Order edited - Discontinuing original order Performed By: #### L 300.8000, L501.4021, L100.0100 #### [facility] [address] [place], [address] pH UR Normal 5.0 - 8.0 [facility] Comment on above: Order Comment: COLLE CTOR TO SPECIFY Result Comment: Canc elled via OM: Order edited - Discontinuing original order Performed By: #### L 300.8000, L501.4021, L100.0100 #### [facility] [address] [place], [address] PROT DIPSTX Normal Negative [facility] Comment on above: Order Comment: MINOO CTOR TO SPECIFY Result Comment: Canc elled via OM: Order edited - Discontinuing original order Performed By: #### L 300.8000, L501.4021, L100.0100 #### [facility] [address] [place], [address] RBC Normal 0-5 [facility] Comment on above: Order Comment: MINOO CTOR TO SPECIFY Result Comment: Canc elled via OM: Order edited - Discontinuing original order Performed By: #### L 300.8000, L501.4021, L100.0100 #### [facility] [address] [place], [address] SP.GR. DIPSTX Normal 1.002-1.030 [facility] Comment on above: Order Comment: MINOO CTOR TO SPECIFY Result Comment: Canc elled via OM: Order edited - Discontinuing original order Performed By: #### L 300.8000, L501.4021, L100.0100 #### [facility] [address] [place], [address] UR Preservative Normal [facility] Comment on above: Order Comment: COLLE CTOR TO SPECIFY Result Comment: Canc elled via OM: Order edited - Discontinuing original order Performed By: #### L 300.8000, L501.4021, L100.0100 #### [facility] [address] [place], [address] UROBILI Normal Normal [facility] Comment on above: Order Comment: COLLE CTOR TO SPECIFY Result Comment: Canc elled via OM: Order edited - Discontinuing original order Performed By: #### L 300.8000, L501.4021, L100.0100 #### [facility] [address] [place], [address] WBC Normal 0-5 [facility] Comment on above: Order Comment: COLLE CTOR TO SPECIFY Result Comment: Canc elled via OM: Order edited - Discontinuing original order Performed By: #### L 300.8000, L501.4021, L100.0100 #### [facility] [address] [place], [address] Urine clarityOrdered By: Jazmin Aragon on 02-02-2025 Clarity (U) Clear Clear [facility] Urine color determinationOrd ered By: Magda Aragon on 02-02-2025 Color (U) Straw Yellow [facility] Urine cultureOrdered By: Jazmin Aragon on 02-02-2025 Bacteria identified Cx Nom (U) Culture exhibits no growth. [facility] Urine glucose detectionOrder ed By: Magda Aragon on 02-02-2025 Glucose Ql (U) Normal mg/dl Normal [facility] Urine leukocyte esterase det ection by dipstickOrdered By: Magda Aragon on 02-02-2025 Leukocyte esterase Test strip Ql (U) Negative Negative [facility] Urine pHOrdered By: Magda Aragon on 02-02-2025 pH (U) 7.0 [pH] 5.0 - 8.0 [facility] Urine sediment bacteria coun t by microscopy (number/high power field)Ordered By: Magda Aragon on 02-02-2025 Bacteria LM.HPF (Urine sed) [#/Area] 0 /[HPF] None Seen [facility] Urine specific gravity measu rementOrdered By: Magda Aragon on 02-02-2025 Specific gravity (U) [Rel density] 1.010 1.002-1.030 [facility] Urine urobilinogen measureme ntOrdered By: Magda Aragon on 02-02-2025 Urobilinogen Ql (U) Normal mg/dl Normal [facility] White blood cell countOrdere d By: Magda Aragon on 02-02-2025 White blood cell count 0 SEEN /hpf 0-5 [facility] BACTERIAL VAGINOSIS NAATon 0 01-20-2025 Interpretation and review of laboratory results Normal [facility] Lactobacillus crispatus+gasseri+jense anastasia + Gardnerella vaginalis + Atopobium vaginae rRNA JOHN+probe Ql (Vag fld) Not detected Not detected [facility] Lactobacillus crispatus+gasseri+jense anastasia + Gardnerella vaginalis + Atopobium vaginae rRNA JOHN+probe Ql (Vag fld) Not detected Normal Not detected [facility] Comment on above: Order Comment: Speci men Type: SWABOrdering Facility: [facility] Address: [address] [place] [address] Performed By: #### C VTV, BVAMP ####[facility] [id number] [place] [address] [place] PARVEEN/TRICHOMONAS NAATon 0 01-20-2025 C. glabrata RNA JOHN+probe Ql (Vag fld) Not detected Not detected [facility] Parveen sp DNA JOHN+probe Ql (Vag fld) Not detected Not detected [facility] Comment on above: The Parveen species group target includes C. albicans, C. tropicalis, C. parapsilosis, and C. dubliniensis. Interpretation and review of laboratory results Normal [facility] T. vaginalis DNA JOHN+probe Ql (Unsp spec) Not detected Not detected [facility] C. glabrata RNA JOHN+probe Ql (Vag fld) Not detected Normal Not detected [facility] Comment on above: Order Comment: Speci men Type: SWABOrdering Facility: [facility] Address: [address] [place] [address] Performed By: #### C VTV, BVAMP ####[facility] [id number] [place] [address] [place] Parveen sp DNA JOHN+probe Ql (Vag fld) Not detected Normal Not detected [facility] Comment on above: Order Comment: Speci men Type: SWABOrdering Facility: [facility] Address: [address] [place] [address] Result Comment: The Parveen species group target includes C. albicans, C. tropicalis, C. parapsilosis, and C. dubliniensis. Performed By: #### C VTV, BVAMP ####[facility] [id number] [address] [place] T. vaginalis DNA JOHN+probe Ql (Unsp spec) Not detected Normal Not detected [facility] Comment on above: Order Comment: Speci men Type: SWABOrdering Facility: [facility] Address: [address] [place] [address] Performed By: #### C VTV, BVAMP ####[facility] [id number] [address] [place] [id number] 01-19-2025 [id number] HNO ID: [id number] Author: ARMIDA NEVES RN Service: ? Author Type: Registered Nurse Type: [id number] Filed: 01/19/2025 03:42 Note Text: Precautions given, patient verbalized understanding. Instructed to call her OB doctor for follow up. Normal [facility] Bacteria Ur Culton 5 Bacteria identified Cx Nom (U) CULTURE, URINE: No growth (<1,000 CFU/ml) Normal [facility] Comment on above: Performed By: #### H STNT #### [facility] CLIA [id number] [address] [place] CT ABD/PEL WO IVCONon 2024 CT ABD/PEL WO IVCON * * *Final Report* * * DATE OF EXAM: Jan 19 2025 12:50AM [facility] 0531 - CT ABD/PEL WO IVCON [...] pericecal inflammatory changes. Lymph Nodes: No lymphadenopathy. Mesentery/peritoneu m: No ascites. Retroperitoneum: No mass. Vasculature: Unremarkable. [...] noncontrast CT. Recommend correlation with obstetric ultrasound. [place]is[place] Operator: HIEU Transcribe Date/Time: Jan 19 2025 2:36A Dictated by : BONIFACIO GAYLE, DO This examination was interpreted and the report reviewed and electronically signed by: BONIFACIO GAYLE DO on Jan 19 2025 2:54AM EST [id number] Normal [facility] CBC panel Auto (Bld)on 01-18 Erythrocyte distribution width (RBC) [Ratio] 14.1 % Normal 11.5-15.0 [facility] Comment on above: Order Comment: Speci men Type: BLOOD SPECIMEN Ordering Facility: [facility] Address: [address] [place] [address] Performed By: #### 5 8410-2 #### [facility] CLIA [id number] [address] Hematocrit (Bld) [Volume fraction] 34.6 % Low 36.0-46.0 [facility] Comment on above: Order Comment: Speci men Type: BLOOD SPECIMEN Ordering Facility: [facility] Address: [address] [place] [address] Performed By: #### 5 8410-2 #### [facility] CLIA [id number] [address] STATES OF [facility] Hemoglobin (Bld) [Mass/Vol] 11.5 g/dL Normal 11.5-15.5 [facility] Comment on above: Order Comment: Speci men Type: BLOOD SPECIMEN Ordering Facility: [facility] Address: [address] [place] [address] Performed By: #### 5 8410-2 #### [facility] CLIA [id number] [address] [place] [facility] MCH (RBC) [Entitic mass] 31.0 pg Normal 26.0-34.0 [facility] Comment on above: Order Comment: Speci men Type: BLOOD SPECIMEN Ordering Facility: [facility] Address: [address] [place] [address] Performed By: #### 5 8410-2 #### [facility] CLIA [id number] [address] MCHC (RBC) [Mass/Vol] 33.2 g/dL Normal 30.5-36.0 [facility] Comment on above: Order Comment: Speci men Type: BLOOD SPECIMEN Ordering Facility: [facility] Address: [address] [place] [address] Performed By: #### 5 8410-2 #### [facility] CLIA [id number] [address] MCV (RBC) [Entitic vol] 93.3 fL Normal 80.0-100.0 [facility] Comment on above: Order Comment: Speci men Type: BLOOD SPECIMEN Ordering Facility: [facility] Address: [address] [place] [address] Performed By: #### 5 8410-2 #### [facility] CLIA [id number] [address] Nucleated RBC (Bld) [#/Vol] 10*3/uL Normal <0.01 [facility] Comment on above: Order Comment: Speci men Type: BLOOD SPECIMEN Ordering Facility: [facility] Address: [address] [place] [address] Performed By: #### 5 8410-2 #### [facility] CLIA [id number] [address] OF [facility] Platelet mean volume (Bld) [Entitic vol] 9.2 fL Normal 9.0-12.7 [facility] Comment on above: Order Comment: Speci men Type: BLOOD SPECIMEN Ordering Facility: [facility] Address: [address] [place] [address] Performed By: #### 5 8410-2 #### [facility] CLIA [id number] [address] [place] Platelets (Bld) [#/Vol] 242 10*3/uL Normal 150-400 [facility] Comment on above: Order Comment: Speci men Type: BLOOD SPECIMEN Ordering Facility: [facility] Address: [address] [place] [address] Performed By: #### 5 8410-2 #### [facility] CLIA [id number] [address] [place] [facility] RBC (Bld) [#/Vol] 3.71 10*6/uL Low 3.90-5.20 [facility] Comment on above: Order Comment: Destini thorpe Type: BLOOD SPECIMEN Ordering Facility: [facility] Address: [address] [place] [address] Performed By: #### 5 8410-2 #### [facility] CLIA [id number] [address] OF [facility] WBC (Bld) [#/Vol] 10.04 10*3/uL Normal 3.70-11.00 [facility] Comment on above: Order Comment: Destini thorpe Type: BLOOD SPECIMEN Ordering Facility: [facility] Address: [address] [place] [address] Performed By: #### 5 8410-2 #### [facility] CLIA [id number] [address] Landen 01-18-2025 CNPN Telephone (OBGYWM) ---- PAL NICHOLAS ([id number]) 3 F Date Time Provider Department 01/18/25 LYNNETTE TAPIA OBGYWM During your visit today, we recorded the following information about you: Isaura Pereira RN 01/18/2025 8:46 AM Signed Breast pump order received from [employer]. To to sign. LEVON Hutson Lindsey, RN [...] Status:Closed by JOCELYNE BLACK on 01/20/25 Normal [facility] metabolic 2000 panelon 01-18-2025 Albumin [Mass/Vol] 3.8 g/dL Low 3.9-4.9 [facility] Comment on above: Order Comment: Speci men Type: BLOOD SPECIMEN Ordering Facility: [facility] Address: [address] [place] [address] Performed By: #### H STNT #### [facility] CLIA [id number] [address] ALP [Catalytic activity/Vol] 57 U/L Normal 34-123 [facility] Comment on above: Order Comment: Speci men Type: BLOOD SPECIMEN Ordering Facility: [facility] Address: [address] [place] [address] Performed By: #### H STNT #### [facility] CLIA [id number] [address] ALT With P-5'-P [Catalytic activity/Vol] 11 U/L Normal 7-38 [facility] Comment on above: Order Comment: Speci men Type: BLOOD SPECIMEN Ordering Facility: [facility] Address: [address] [place] [address] Performed By: #### H STNT #### [facility] CLIA [id number] [address] Anion gap [Moles/Vol] 12 mmol/L Normal 8-15 [facility] Comment on above: Order Comment: Speci men Type: BLOOD SPECIMEN Ordering Facility: [facility] Address: [address] [place] [address] Performed By: #### H STNT #### [facility] CLIA [id number] [address] [place] AST With P-5'-P [Catalytic activity/Vol] 16 U/L Normal 13-35 [facility] Comment on above: Order Comment: Speci men Type: BLOOD SPECIMEN Ordering Facility: [facility] Address: [address] [place] [address] Performed By: #### H STNT #### [facility] CLIA [id number] [address] Bilirubin [Mass/Vol] 0.3 mg/dL Normal 0.2-1.3 [facility] Comment on above: Order Comment: Speci men Type: BLOOD SPECIMEN Ordering Facility: [facility] Address: [address] [place] [address] Performed By: #### H STNT #### [facility] CLIA [id number] [address] [place] Calcium [Mass/Vol] 8.6 mg/dL Normal 8.5-10.2 [facility] Comment on above: Order Comment: Speci men Type: BLOOD SPECIMEN Ordering Facility: [facility] Address: [address] [place] [address] Performed By: #### H STNT #### [facility] CLIA [id number] [address] OF [facility] Chloride [Moles/Vol] 103 mmol/L Normal 98-107 [facility] Comment on above: Order Comment: Speci men Type: BLOOD SPECIMEN Ordering Facility: [facility] Address: [address] [place] [address] Performed By: #### H STNT #### [facility] CLIA [id number] [address] STATES OF [facility] CO2 [Moles/Vol] 22 mmol/L Normal 22-30 [facility] Comment on above: Order Comment: Speci men Type: BLOOD SPECIMEN Ordering Facility: [facility] Address: [address] [place] [address] Performed By: #### H STNT #### [facility] CLIA [id number] [address] [place] Creatinine [Mass/Vol] 0.50 mg/dL Low 0.58-0.96 [facility] Comment on above: Order Comment: Speci men Type: BLOOD SPECIMEN Ordering Facility: [facility] Address: [address] [place] [address] Performed By: #### H STNT #### [facility] CLIA [id number] [address] [place] eGFRcr SerPlBld CKD-EPI 2020 138 mL/min/1.73m??? Normal >=60 [facility] Comment on above: Order Comment: Destini thorpe Type: BLOOD SPECIMEN Ordering Facility: [facility] Address: [address] [place] [address] Result Comment: Shilpa mated Glomerular Filtration Rate [...] GFR. Performed By: #### H STNT #### [facility] CLIA [id number] [address] [place] [address] [place] Glucose [Mass/Vol] 63 mg/dL Low 74-99 [facility] Comment on above: Order Comment: Destini thorpe Type: BLOOD SPECIMEN Ordering Facility: [facility] Address: [address] [place] [address] Result Comment: The [place] Diabetes Association (ADA) provides guidance for [...] Standards of Medical Care in Diabetes 2016, [place] [employer]. Diabetes Care. 2016.39(Suppl 1). Performed By: #### H STNT #### [facility] CLIA [id number] [address] [place] [address] [place] Potassium [Moles/Vol] 3.8 mmol/L Normal 3.7-5.1 [facility] Comment on above: Order Comment: Destini thorpe Type: BLOOD SPECIMEN Ordering Facility: [facility] Address: [address] [place] [address] Performed By: #### H STNT #### [facility] CLIA [id number] [address] Protein [Mass/Vol] 6.5 g/dL Normal 6.3-8.0 [facility] Comment on above: Order Comment: Speci men Type: BLOOD SPECIMEN Ordering Facility: [facility] Address: [address] [place] [address] Performed By: #### H STNT #### [facility] CLIA [id number] [address] OF [facility] Sodium [Moles/Vol] 137 mmol/L Normal 136-144 [facility] Comment on above: Order Comment: Speci men Type: BLOOD SPECIMEN Ordering Facility: [facility] Address: [address] [place] [address] Performed By: #### H STNT #### [facility] CLIA [id number] [address] Urea nitrogen [Mass/Vol] 4 mg/dL Low 7-21 [facility] Comment on above: Order Comment: Speci men Type: BLOOD SPECIMEN Ordering Facility: [facility] Address: [address] [place] [address] Performed By: #### H STNT #### [facility] CLIA [id number] [address] OF [facility] CNPMissy 01-14-2025 CNPN Telephone (OBGYWM) ---- PAL NICHOLAS ([id number]) 3 F Date Time Provider Department 01/14/25 RAMAKRISHNA CORLEY During your visit today, we recorded the following information about you: Ramakrishna Corley MD 01/14/2025 1:35 PM Signed See result note Allergies As of Date: 01/14/2025 (No Known Allergies) Date Reviewed: 01/11/2025 Reviewed by: Priti Sharma MA - Fully Assessed Reason for Visit: Orders [681] Primary Visit Diagnosis:Dysuria [R30.0] Order(s):nitrofuran toin monohydrate and macrocrystal (MACROBID) 100 mg capsuleTake [...] Status:Closed by RAMAKRISHNA CORLEY on 01/14/[address] 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 MATERNAL MEDICINE [facility] TSH W/REFLEX FT4on 5 TSH Qn 1.510 m[IU]/L Normal 0.510-4.300 [facility] Comment on above: Order Comment: Speci men Type: BLOOD SPECIMENOrdering Facility: [facility] Address: [address] [place] [address] Result Comment: If t he patient is , TSH reference range varies by gestational period: First Trimester (weeks 9-12): 0.180-2.990 mIU/L Second Trimester: 0.110-3.980 mIU/L Third Trimester: 0.480-4.710 mIU/L Garry Rizvi et al. A Practical Approach for the Verifications and Determination of Site- and Trimester-Specific Reference Intervals for Thyroid Function tests in . Thyroid, 2019:29:3:412-420. Keagan Dimas, et al. 2017 Guidelines of the [place] Thyroid Association for the Diagnosis and Management of Thyroid Disease during and the . Thyroid, 2017:27:3:315-389. Performed By: #### T SHRF ####[facility] [id number] [place] [address] [place] BACTERIAL VAGINOSIS NAATon 0 01-11-2025 Lactobacillus crispatus+gasseri+jense anastasia + Gardnerella vaginalis + Atopobium vaginae rRNA JOHN+probe Ql (Vag fld) Not detected Normal Not detected [facility] Comment on above: Order Comment: Speci men Type: SWABOrdering Facility: [facility] Address: [address] [place] [address] Performed By: #### C VTV, BVAMP ####[facility] [id number] [place] [address] [place] Bacteria Ur Culton 5 Bacteria identified Cx Nom (U) ORGANISM ID: 1 <10,000 CFU/ml Enterococcus faecalis Insignificant colony count. No further workup. Cephalosporins, clindamycin, and TMP-SMX are not effective for the treatment of enterococcal infections. Normal [facility] Comment on above: Performed By: #### 6 30-4 ####[facility] [id number] [place] [address] [place] PARVEEN/TRICHOMONAS NAATon 0 01-11-2025 C. glabrata RNA JOHN+probe Ql (Vag fld) Not detected Normal Not detected [facility] Comment on above: Order Comment: Speci men Type: SWABOrdering Facility: [facility] Address: [address] [place] [address] Performed By: #### C VTV, BVAMP ####[facility] [id number] [place] [address] [place] Parveen sp DNA JOHN+probe Ql (Vag fld) Not detected Normal Not detected [facility] Comment on above: Order Comment: Speci men Type: SWABOrdering Facility: [facility] Address: [address] [place] [address] Result Comment: The Parveen species group target includes C. albicans, C. tropicalis, C. parapsilosis, and C. dubliniensis. Performed By: #### C VTV, BVAMP ####[facility] [id number] [place] [address] [place] T. vaginalis DNA JOHN+probe Ql (Unsp spec) Not detected Normal Not detected [facility] Comment on above: Order Comment: Speci men Type: SWABOrdering Facility: [facility] Address: [address] [place] [address] Performed By: #### C VTV, BVAMP ####[facility] [id number] [facility] [id number] [place] [address] [place] Examination level ultrasound on 01-11-2025 Radiology Study observation (narrative) [facility] UA DIP, URINE (POC)on 2024 BILIRUBIN UA (POCT) Negative Negative [facility] CLARITY UA (POCT) Clear [facility] COLOR UA (POCT) Yellow [facility] GLUCOSE UA (POCT) Negative Negative mg/dL [facility] Hemoglobin Ql (U) Negative Negative [facility] Interpretation and review of laboratory results Abnormal [facility] KETONE UA (POCT) Negative Negative mg/dL [facility] LEUKOCYTES UA (POCT) Trace Abnormal Negative [facility] NITRITE UA (POCT) Negative Negative [facility] PH UA (POCT) 6.0 4.5 - 8.0 [facility] Protein Ql (U) Negative Negative mg/dL [facility] SPECIFIC GRAVITY UA (POCT) 1.020 1.005 - 1.030 [facility] UROBILINOGEN UA (POCT) 0.2 Normal E.U./d L [facility] Location:[facility], [address], [place], [address] [facility] POINT OF CARE [facility] Landen 01-07-2025 RUBÉN Telephone (AKPRAD) ---- PAL NICHOLAS ([id number]) 3 F Date Time Provider Department 01/07/25 EJ RODRIGUEZ During your visit today, we recorded the following information about you: Ej Rodriguez MD 01/07/2025 12:41 PM Signed Patient was seen by resident but not by any attending opto mechanical technician while in labor and delivery she is [...] EJ RODRIGUEZ on 01/12/25 Normal [facility] Basic metabolic 2000 panelon 01-06-2025 Anion gap [Moles/Vol] 12 mmol/L Normal 8-15 [facility] Comment on above: Order Comment: Speci men Type: BLOOD SPECIMEN Ordering Facility: [facility] Address: [address] [place] [address] Performed By: #### H STNT, 95460-1 #### [employer] [facility] CLIA [id number] 1 [place] [address] [place] Calcium [Mass/Vol] 8.6 mg/dL Normal 8.5-10.2 [facility] Comment on above: Order Comment: Speci men Type: BLOOD SPECIMEN Ordering Facility: [facility] Address: [address] [place] [address] Performed By: #### H STNT, 44205-7 #### [facility] CLIA [id number] 1 [place] [address] [place] Chloride [Moles/Vol] 104 mmol/L Normal 98-107 [facility] Comment on above: Order Comment: Speci men Type: BLOOD SPECIMEN Ordering Facility: [facility] Address: [address] [place] [address] Performed By: #### H STNT, 78440-8 #### [facility] CLIA [id number] 1 [place] [address] [place] CO2 [Moles/Vol] 20 mmol/L Low 22-30 [facility] Comment on above: Order Comment: Speci men Type: BLOOD SPECIMEN Ordering Facility: [facility] Address: [address] [place] [address] Performed By: #### H STNT, 18629-6 #### [facility] CLIA [id number] 1 [place] [address] [place] Creatinine [Mass/Vol] 0.47 mg/dL Low 0.58-0.96 [facility] Comment on above: Order Comment: Speci men Type: BLOOD SPECIMEN Ordering Facility: [facility] Address: [address] [place] [address] Performed By: #### H STNT, 41376-7 #### [employer] [facility] CLIA [id number] [address] eGFRcr SerPlBld CKD-EPI 2020 140 mL/min/1.73m??? Normal >=60 [facility] Comment on above: Order Comment: Destini thorpe Type: BLOOD SPECIMEN Ordering Facility: [facility] Address: [address] [place] [address] Result Comment: Shilpa mated Glomerular Filtration Rate [...] actual GFR. Performed By: #### H STNT, 46625-7 #### [employer] [facility] CLIA [id number] [address] [place] [address] [place] Glucose [Mass/Vol] 78 mg/dL Normal 74-99 [facility] Comment on above: Order Comment: Destini thorpe Type: BLOOD SPECIMEN Ordering Facility: [facility] Address: [address] [place] [address] Result Comment: The [place] Diabetes Association (ADA) provides guidance for [...] Standards of Medical Care in Diabetes 2016, [place] [employer]. Diabetes Care. 2016.39(Suppl 1). Performed By: #### H STNT, 12114-9 #### [employer] CLIA [id number] 1 [place] [address] [place] Potassium [Moles/Vol] 3.7 mmol/L Normal 3.7-5.1 [facility] Comment on above: Order Comment: Speci men Type: BLOOD SPECIMEN Ordering Facility: [facility] Address: [address] [place] [address] Performed By: #### H STNT, 95925-1 #### [facility] CLIA [id number] 1 [place] [address] [place] Sodium [Moles/Vol] 136 mmol/L Normal 136-144 [facility] Comment on above: Order Comment: Speci men Type: BLOOD SPECIMEN Ordering Facility: [facility] Address: [address] [place] [address] Performed By: #### H STNT, 13212-4 #### [facility] CLIA [id number] [address] [place] Urea nitrogen [Mass/Vol] 8 mg/dL Normal 7-21 [facility] Comment on above: Order Comment: Speci men Type: BLOOD SPECIMEN Ordering Facility: [facility] Address: [address] [place] [address] Performed By: #### H STNT, 78849-0 #### [facility] CLIA [id number] [address] [place] C. trachomatis+N. gonorrhoea e DNA JOHN+probe Ql (Unsp spec)on 01-06-2025 C. trachomatis rRNA JOHN+probe Ql (Unsp spec) Not detected Normal Not detected [facility] Comment on above: Order Comment: Speci men Type: SWAB Ordering Facility: [facility] Address: [address] [place] [address] Performed By: #### T RVAMP, 51083-9 #### [facility] CLIA [id number] [address] [place] N. gonorrhoeae rRNA JOHN+probe Ql (Unsp spec) Not detected Normal Not detected [facility] Comment on above: Order Comment: Speci men Type: SWAB Ordering Facility: [facility] Address: [facility] [place] [address] Performed By: #### T RVAMP, 28968-9 #### [employer] [facility] CLIA [id number] [address] CBC panel Auto (Bld)on 01-06 Erythrocyte distribution width (RBC) [Ratio] 13.7 % Normal 11.5-15.0 [facility] Comment on above: Order Comment: Speci men Type: BLOOD SPECIMEN Ordering Facility: [facility] Address: [address] [place] [address] Performed By: #### H STNT, 59091-5 #### [facility] CLIA [id number] [address] Hematocrit (Bld) [Volume fraction] 36.1 % Normal 36.0-46.0 [facility] Comment on above: Order Comment: Speci men Type: BLOOD SPECIMEN Ordering Facility: [facility] Address: [address] [place] [address] Performed By: #### H STNT, 07021-1 #### [facility] CLIA [id number] [address] Hemoglobin (Bld) [Mass/Vol] 12.3 g/dL Normal 11.5-15.5 [facility] Comment on above: Order Comment: Speci men Type: BLOOD SPECIMEN Ordering Facility: [facility] Address: [address] [place] [address] Performed By: #### H STNT, 26369-0 #### [employer] [facility] CLIA [id number] [address] [place] MCH (RBC) [Entitic mass] 30.8 pg Normal 26.0-34.0 [facility] Comment on above: Order Comment: Speci men Type: BLOOD SPECIMEN Ordering Facility: [facility] Address: [address] [place] [address] Performed By: #### H STNT, 43737-1 #### [facility] CLIA [id number] [address] MCHC (RBC) [Mass/Vol] 34.1 g/dL Normal 30.5-36.0 [facility] Comment on above: Order Comment: Speci men Type: BLOOD SPECIMEN Ordering Facility: [facility] Address: [address] [place] [address] Performed By: #### H STNT, 07265-5 #### [facility] CLIA [id number] [address] MCV (RBC) [Entitic vol] 90.3 fL Normal 80.0-100.0 [facility] Comment on above: Order Comment: Speci men Type: BLOOD SPECIMEN Ordering Facility: [facility] Address: [address] [place] [address] Performed By: #### H STNT, 76581-0 #### [facility] CLIA [id number] [address] Nucleated RBC (Bld) [#/Vol] 10*3/uL Normal <0.01 [facility] Comment on above: Order Comment: Speci men Type: BLOOD SPECIMEN Ordering Facility: [facility] Address: [address] [place] [address] Performed By: #### H STNT, 70456-8 #### [facility] CLIA [id number] [address] [place] Platelet mean volume (Bld) [Entitic vol] 9.3 fL Normal 9.0-12.7 [facility] Comment on above: Order Comment: Speci men Type: BLOOD SPECIMEN Ordering Facility: [facility] Address: [address] [place] [address] Performed By: #### H STNT, 09888-8 #### [facility] CLIA [id number] [address] [place] Platelets (Bld) [#/Vol] 248 10*3/uL Normal 150-400 [facility] Comment on above: Order Comment: Speci men Type: BLOOD SPECIMEN Ordering Facility: [facility] Address: [address] [place] [id number] Performed By: #### H STNT, 50769-1 #### [facility] CLIA [id number] [address] RBC (Bld) [#/Vol] 4.00 10*6/uL Normal 3.90-5.20 [facility] Comment on above: Order Comment: Speci men Type: BLOOD SPECIMEN Ordering Facility: [facility] Address: [address] [place] [address] Performed By: #### H STNT, 51305-8 #### [facility] CLIA [id number] [address] WBC (Bld) [#/Vol] 10.26 10*3/uL Normal 3.70-11.00 [facility] Comment on above: Order Comment: Speci men Type: BLOOD SPECIMEN Ordering Facility: [facility] Address: [address] [place] [address] Performed By: #### H STNT, 57194-1 #### [facility] CLIA [id number] [address] CNPMissy 01-06-2025 CNPN Telephone (LORENAGYWM) ---- PAL NICHOLAS ([id number]) 3 F Date Time Provider Department 01/06/25 KARINA ADDISON During your visit today, we recorded the following information about you: Magda Hagen, RN 01/06/2025 4:55 PM Addendum 19w2d Patient called to report that she is having an increase in vaginal pressure and a change in her vaginal discharge. It is chunkier, but not consistent with a yeast infection. Discharge is yellow/green with an occasional tinge of pink. No itching or irritation. See 01/04 and 01/05 telephone notes. Patient was seen at [facility] OB ED triage on 01/04. The diarrhea has resolved. Advised that she go back to [facility] as the office is closing. Patient asked for an appointment tomorrow instead because of transportation. No available appointments. Advised that she should be evaluated today in case she is having labor. Voiced understanding and believes she could have a friend take her. LEVON Driver Rebecca L, MD 01/07/2025 10:00 AM Signed If not improved work in any cancellations, go to [facility] for eval or schedule tomorrow if openings. MD Honey Begum Lindsey, RN 01/07/2025 10:36 AM Signed Patient was seen at [facility] last night. She has OB and [...] Encounter Status:Closed by KARINA ADDISON on 01/07/25 [facility] CONSULTon 01-06-2025 CONSULT HNO ID: [id number] Author: EJ RODRIGUEZ MD Service: Nephrology Author [...] not on any medications. She moved from [place] and previously was on beta-luana however stopped [...] pain, stiffness, Joint swelling SKIN: No rash HEMATOLOGICAL/LYMPH ATIC: Negative for: Easy bruising and Easy bleeding [...] Drawn: No results found for this basename: TSH,PROBNP,TG,HDL,L DL,CHOL Impression/Recommen dations 19 years old female with past medical [...] (more content not included)... Normal [facility] ECG COMPLETEon 01-06-2025 ECG COMPLETE Ventricular Rate : 79 BPM Atrial Rate : 79 BPM P-R Interval : 120 ms QRS Duration : 76 ms Q-T Interval : 350 ms QTC Calculation(Bazett) : 401 ms Calculated P Cherokee : -18 degrees Calculated R Cherokee : 148 degrees Calculated T Cherokee : -28 degrees NORMAL SINUS RHYTHM RIGHT AXIS DEVIATION LOW VOLTAGE QRS CANNOT RULE OUT INFERIOR INFARCT , AGE UNDETERMINED T WAVE ABNORMALITY, CONSIDER ANTERIOR ISCHEMIA ABNORMAL ECG WHEN COMPARED WITH ECG OF 05-Jan-2025 00:20, QRS AXIS SHIFTED RIGHT Confirmed by MD NAPIER VINAY ([id number]) on 01/07/2025 11:39:00 AM NAME : PAL NICHOLAS PID : [id number] : 2005 Gender : Female Race : ORD : [id number] Procedure Date : Jan 06 2025 20:38:59 Edit Date : Jan 07 2025 11:39:11 Diagnosis: NORMAL SINUS RHYTHM RIGHT AXIS DEVIATION LOW VOLTAGE QRS CANNOT RULE OUT INFERIOR INFARCT , AGE UNDETERMINED T WAVE ABNORMALITY, CONSIDER ANTERIOR ISCHEMIA ABNORMAL ECG WHEN COMPARED WITH ECG OF 05-Jan-2025 00:20, QRS AXIS SHIFTED RIGHT Confirmed by MD NAPIER VINAY ([id number]) on 01/07/2025 11:39:00 AM Test Reason : Chest Pain Location : 200 : [facility] TR04 Overread By : MD NAPIER VINAY Edited By : MD NAPIER VINAY Referred By : , Acquired by : ZUNILDA FULLER Normal [facility] HIGH SENSITIVITY TROPONIN To n 01-06-2025 Troponin T.cardiac High sensitivity method [Mass/Vol] <6 Normal <12 [facility] Comment on above: Order Comment: Speci men Type: BLOOD SPECIMEN Ordering Facility: [facility] Address: [address] [place] [address] Performed By: #### H STNT #### [facility] CLIA [id number] 1 [place] [address] [place] Troponin T.cardiac High sensitivity method [Mass/Vol] <6 Normal <12 [facility] Comment on above: Order Comment: Destini men Type: BLOOD SPECIMEN Ordering Facility: [facility] Address: [address] [place] [address] Performed By: #### H STNT, 24544-4 #### [facility] CLIA [id number] [address] TRICHOMONAS VAGINALIS NAATon 01-06-2025 T. vaginalis DNA JOHN+probe Ql (Unsp spec) Not detected Normal Not detected [facility] Comment on above: Order Comment: Speci men Type: SWAB Ordering Facility: [facility] Address: [address] [place] [address] Performed By: #### T RVAMP, 18038-5 #### [facility] CLIA [id number] [address] STATES OF [facility] CBC panel Auto (Bld)on 01-05 Erythrocyte distribution width (RBC) [Ratio] 14.0 % Normal 11.5-15.0 [facility] Comment on above: Order Comment: Speci men Type: BLOOD SPECIMEN Ordering Facility: [facility] Address: [address] [place] [address] Performed By: #### 5 8410-2 #### [facility] CLIA [id number] [address] [place] [address] [place] Hematocrit (Bld) [Volume fraction] 33.6 % Low 36.0-46.0 [facility] Comment on above: Order Comment: Speci men Type: BLOOD SPECIMEN Ordering Facility: [facility] Address: [address] [place] [address] Performed By: #### 5 8410-2 #### [facility] CLIA [id number] [address] [place] Hemoglobin (Bld) [Mass/Vol] 11.4 g/dL Low 11.5-15.5 [facility] Comment on above: Order Comment: Speci men Type: BLOOD SPECIMEN Ordering Facility: [facility] Address: [address] [place] [address] Performed By: #### 5 8410-2 #### [facility] CLIA [id number] [address] MCH (RBC) [Entitic mass] 30.6 pg Normal 26.0-34.0 [facility] Comment on above: Order Comment: Speci men Type: BLOOD SPECIMEN Ordering Facility: [facility] Address: [address] [place] [address] Performed By: #### 5 8410-2 #### [facility] CLIA [id number] [address] MCHC (RBC) [Mass/Vol] 33.9 g/dL Normal 30.5-36.0 [facility] Comment on above: Order Comment: Speci men Type: BLOOD SPECIMEN Ordering Facility: [facility] Address: [address] [place] [address] Performed By: #### 5 8410-2 #### [facility] CLIA [id number] [address] MCV (RBC) [Entitic vol] 90.1 fL Normal 80.0-100.0 [facility] Comment on above: Order Comment: Speci men Type: BLOOD SPECIMEN Ordering Facility: [facility] Address: [address] [place] [address] Performed By: #### 5 8410-2 #### [facility] CLIA [id number] [address] Nucleated RBC (Bld) [#/Vol] 10*3/uL Normal <0.01 [facility] Comment on above: Order Comment: Speci men Type: BLOOD SPECIMEN Ordering Facility: [facility] Address: [address] [place] [address] Performed By: #### 5 8410-2 #### [facility] CLIA [id number] [address] Platelet mean volume (Bld) [Entitic vol] 9.3 fL Normal 9.0-12.7 [facility] Comment on above: Order Comment: Speci men Type: BLOOD SPECIMEN Ordering Facility: [facility] Address: [address] [place] [address] Performed By: #### 5 8410-2 #### [facility] CLIA [id number] [address] Platelets (Bld) [#/Vol] 223 10*3/uL Normal 150-400 [facility] Comment on above: Order Comment: Speci men Type: BLOOD SPECIMEN Ordering Facility: [facility] Address: [address] [place] [address] Performed By: #### 5 8410-2 #### [facility] CLIA [id number] [address] RBC (Bld) [#/Vol] 3.73 10*6/uL Low 3.90-5.20 [facility] Comment on above: Order Comment: Speci men Type: BLOOD SPECIMEN Ordering Facility: [facility] Address: [address] [place] [address] Performed By: #### 5 8410-2 #### [facility] CLIA [id number] [address] WBC (Bld) [#/Vol] 10.50 10*3/uL Normal 3.70-11.00 [facility] Comment on above: Order Comment: Speci men Type: BLOOD SPECIMEN Ordering Facility: [facility] Address: [address] [place] [address] Performed By: #### 5 8410-2 #### [facility] CLIA [id number] [address] CNPMissy 01-05-2025 CNPN Telephone (AKPOB) ---- PAL NICHOLAS ([id number]) 3 F Date Time Provider Department 01/05/25 [...] Encounter Status:Closed by JAYLA KELLER on 01/05/25 [facility] CNPN Telephone (OBGYWM) ---- PAL NICHOLAS ([id number]) 3 F Date Time Provider Department 01/05/25 LESTER PHILLIPS During your visit today, we recorded the following information about you: Magda Hagen RN 01/05/2025 11:40 AM Signed 19w1d See 01/04 phone note. Patient went to [facility] ED last night. [place]'s notes available to review. Patient was prescribed [...] feel completely confident in the diagnosis from [facility]. Please advise. LEVON Gardner Karmon, MD 01/05/2025 12:09 PM Signed Patient was seen by Mitesh Kulkarni while at [facility]. I recommend supportive care with hydration, [...] Status:Closed by JOCELYNE BLACK on 01/05/25 Normal [facility] metabolic 2000 panelon 01-05-2025 Albumin [Mass/Vol] 3.5 g/dL Low 3.9-4.9 [facility] Comment on above: Order Comment: Speci men Type: BLOOD SPECIMEN Ordering Facility: [facility] Address: [address] [place] [address] Performed By: #### 2 4323-8 #### [facility] CLIA [id number] [address] STATES [place] [facility] ALP [Catalytic activity/Vol] 46 U/L Normal 34-123 [facility] Comment on above: Order Comment: Speci men Type: BLOOD SPECIMEN Ordering Facility: [facility] Address: [address] [place] [address] Performed By: #### 2 4323-8 #### [facility] CLIA [id number] [address] ALT With P-5'-P [Catalytic activity/Vol] 13 U/L Normal 7-38 [facility] Comment on above: Order Comment: Speci men Type: BLOOD SPECIMEN Ordering Facility: [facility] Address: [address] [place] [address] Performed By: #### 2 4323-8 #### [facility] CLIA [id number] [address] [place] Anion gap [Moles/Vol] 12 mmol/L Normal 8-15 [facility] Comment on above: Order Comment: Speci men Type: BLOOD SPECIMEN Ordering Facility: [facility] Address: [address] [place] [address] Performed By: #### 2 4323-8 #### [facility] CLIA [id number] [address] AST With P-5'-P [Catalytic activity/Vol] 16 U/L Normal 13-35 [facility] Comment on above: Order Comment: Speci men Type: BLOOD SPECIMEN Ordering Facility: [facility] Address: [address] [place] [address] Performed By: #### 2 4323-8 #### [facility] CLIA [id number] [address] [place] Bilirubin [Mass/Vol] 0.3 mg/dL Normal 0.2-1.3 [facility] Comment on above: Order Comment: Speci men Type: BLOOD SPECIMEN Ordering Facility: [facility] Address: [address] [place] [address] Performed By: #### 2 4323-8 #### [facility] CLIA [id number] [address] [place] Calcium [Mass/Vol] 9.1 mg/dL Normal 8.5-10.2 [facility] Comment on above: Order Comment: Speci men Type: BLOOD SPECIMEN Ordering Facility: [facility] Address: [address] [place] [address] Performed By: #### 2 4323-8 #### [facility] CLIA [id number] [address] [place] Chloride [Moles/Vol] 106 mmol/L Normal 98-107 [facility] Comment on above: Order Comment: Speci men Type: BLOOD SPECIMEN Ordering Facility: [facility] Address: [address] [place] [address] Performed By: #### 2 4323-8 #### [facility] CLIA [id number] [address] [place] [address] [place] CO2 [Moles/Vol] 21 mmol/L Low 22-30 [facility] Comment on above: Order Comment: Speci men Type: BLOOD SPECIMEN Ordering Facility: [facility] Address: [address] [place] [address] Performed By: #### 2 4323-8 #### [facility] CLIA [id number] [address] [place] [address] [place] Creatinine [Mass/Vol] 0.51 mg/dL Low 0.58-0.96 [facility] Comment on above: Order Comment: Destini thorpe Type: BLOOD SPECIMEN Ordering Facility: [facility] Address: [address] [place] [address] Performed By: #### 2 4323-8 #### [facility] CLIA [id number] [address] OF [facility] eGFRcr SerPlBld CKD-EPI 2020 137 mL/min/1.73m??? Normal >=60 [facility] Comment on above: Order Comment: Destini thorpe Type: BLOOD SPECIMEN Ordering Facility: [facility] Address: [address] [place] [address] Result Comment: Shilpa mated Glomerular Filtration Rate [...] GFR. Performed By: #### 2 4323-8 #### [facility] CLIA [id number] [address] [place] [address] [place] [facility] Glucose [Mass/Vol] 93 mg/dL Normal 74-99 [facility] Comment on above: Order Comment: Destini thorpe Type: BLOOD SPECIMEN Ordering Facility: [facility] Address: [address] [place] [address] Result Comment: The [place] [employer] (ADA) provides guidance for [...] Standards of Medical Care in Diabetes 2016, [place] [employer]. Diabetes Care. 2016.39(Suppl 1). Performed By: #### 2 4323-8 #### [facility] CLIA [id number] [address] Potassium [Moles/Vol] 3.4 mmol/L Low 3.7-5.1 [facility] Comment on above: Order Comment: Speci men Type: BLOOD SPECIMEN Ordering Facility: [facility] Address: [address] [place] [address] Performed By: #### 2 4323-8 #### [facility] CLIA [id number] [address] STATES OF [facility] Protein [Mass/Vol] 5.8 g/dL Low 6.3-8.0 [facility] Comment on above: Order Comment: Speci men Type: BLOOD SPECIMEN Ordering Facility: [facility] Address: [address] [place] [address] Performed By: #### 2 4323-8 #### [facility] CLIA [id number] [address] STATES [facility] Sodium [Moles/Vol] 139 mmol/L Normal 136-144 [facility] Comment on above: Order Comment: Speci men Type: BLOOD SPECIMEN Ordering Facility: [facility] Address: [address] [place] [address] Performed By: #### 2 4323-8 #### [facility] CLIA [id number] [address] Urea nitrogen [Mass/Vol] 5 mg/dL Low 7-21 [facility] Comment on above: Order Comment: Speci men Type: BLOOD SPECIMEN Ordering Facility: [facility] Address: [address] [place] [address] Performed By: #### 2 4323-8 #### [facility] CLIA [id number] [address] [place] ECG COMPLETEon 01-05-2025 ECG COMPLETE Ventricular Rate : 97 BPM Atrial Rate : 97 BPM P-R Interval : 128 ms QRS Duration : 78 ms Q-T Interval : 344 ms QTC Calculation(Bazett) : 436 ms Calculated P [place] : 21 degrees Calculated R [place] : 23 degrees Calculated T [place] : -1 degrees NORMAL SINUS RHYTHM LOW VOLTAGE QRS BORDERLINE ECG NO PREVIOUS ECGS AVAILABLE Confirmed by MD NAPIER VINAY ([id number]) on 01/05/2025 12:13:29 PM NAME : PAL NICHOLAS PID : [id number] : 2005 Gender : Female Race : ORD : [id number] Procedure Date : Jan 05 2025 00:20:24 Edit Date : Jan 05 2025 12:13:36 Diagnosis: NORMAL SINUS RHYTHM LOW VOLTAGE QRS BORDERLINE ECG NO PREVIOUS ECGS AVAILABLE Confirmed by MD NAPIER VINAY ([id number]) on 01/05/2025 12:13:29 PM Test Reason : Dizziness Location : 200 : [place] [address] Overread By : MD NAPIER VINAY Edited By : MD NAPIER VINAY Referred By : , Acquired by : [facility] PAL NICHOLAS ([id number]) 3 F Date Time Provider Department 01/04/25 MAGDA ARAGON During your visit today, we recorded the following information about you: Maite Peterson, RN 01/04/2025 3:29 PM Signed 19w0d Pt [...] this is staying the same since at [facility] 12/22/24. Last few weeks, Pt states extremely watery discharge. Went to [facility] at that time d/t having sharp cervical pain AND was treated for BV. Feels hydrated/Has been drinking liquid IV. Does have some burning on urination AND was seen on 12/30/24 in office-UA completed and TRACE protein and TRACE leukocytes. Advised Pt that since pain has worsened as the day as gone on that it would be best to go to [facility] OB triage to be evaluated as no appts available in office at this time. Pt did state she'd feel more comfortable going there and that is essentially why she called as she wanted to discuss with a nurse. Pt states her ride will not be able to pick her up for another 30 minutes, but Pt is agreeable to go to [place]. Dr. Aragon notified. Maite Peterson RN Allergies [...] Status:Closed by MAITE PETERSON on 01/21/[address] [facility] CNPNon 12-29-2024 CNPN Telephone (OBGYWM) ---- PAL NICHOLAS ([id number]) 3 F Date Time Provider Department 12/29/24 [...] Status:Closed by KARINA ADDISON on 12/29/[address] [facility] BACTERIAL VAGINOSIS NAATon 0 12-28-2024 Lactobacillus crispatus+gasseri+jense anastasia + Gardnerella vaginalis + Atopobium vaginae rRNA JOHN+probe Ql (Vag fld) Not detected Normal Not detected [facility] Comment on above: Order Comment: Speci men Type: BLOOD SPECIMEN Ordering Facility: [facility] Address: [address] [place] [address] Performed By: #### G TGST3 #### [facility] CLIA [id number] [address] [place] [address] [place] PARVEEN/TRICHOMONAS NAATon 0 12-28-2024 C. glabrata RNA JOHN+probe Ql (Vag fld) Not detected Normal Not detected [facility] Comment on above: Order Comment: Speci men Type: BLOOD SPECIMEN Ordering Facility: [facility] Address: [address] [place] [address] Performed By: #### G TGST3 #### [facility] CLIA [id number] [address] [place] [address] [place] Parveen sp DNA JOHN+probe Ql (Vag fld) Not detected Normal Not detected [facility] Comment on above: Order Comment: Speci men Type: BLOOD SPECIMEN Ordering Facility: [facility] Address: [address] [place] [address] Result Comment: The Parveen species group target includes C. albicans, C. tropicalis, C. parapsilosis, and C. dubliniensis. Performed By: #### G TGST3 #### [facility] CLIA [id number] [address] [place] [address] T. vaginalis DNA JOHN+probe Ql (Unsp spec) Not detected Normal Not detected [facility] Comment on above: Order Comment: Speci men Type: BLOOD SPECIMEN Ordering Facility: [facility] Address: [address] [place] [address] Performed By: #### G TGST3 #### [facility] CLIA [id number] [address] [place] [address] OF [facility] CNPNon 12-25-2024 CNPN Telephone (OBGYWM) ---- PAL NICHOLAS ([id number]) 3 F Date Time Provider Department 12/25/24 LYNNETTE TAPIA OBGYW During your visit today, we recorded the following information about you: Isaura Pereira RN 12/25/2024 12:14 PM Signed Records received from [facility] in [place]. In chart prep binder for NOB appt on 12/28 with PAMELA. Isaura Pereira RN Allergies As of Date: 12/25/2024 (No Known Allergies) Date Reviewed: 12/22/2024 Reviewed by: Singh, Tressa E., DO - Fully Assessed Reason for Visit: [...] Status:Closed by ISAURA PEREIRA on 12/25/[address] [facility] Urine Cultureon 12-24-2024 URC Mixed Gram Positive Organisms [place] Count 11,000-25,000 MIXC Mixed contaminants. Submit a new specimen if indicated. Normal [facility] Comment on above: Performed By: #### L 300.8000, L501.4021, L100.0100 #### [facility] [address] [place], [address] [facility] 12-22-2024 CNPN Telephone (OBGYWM) ---- PAL NICHOLAS ([id number]) 3 F Date Time Provider Department 12/22/24 KARINA ADDISON OBGYWM During your visit today, we recorded the following information about you: Magda Hagen, RN 12/22/2024 12:30 PM Signed New [facility] OB seen at [facility] ER [...] ER report: Discussed the case with on-call VINEYARD TENDER for [facility] Dr. Aragon who states that she [...] urgent issue or go to ANGELA at [facility] or see if there is a [...] Status:Closed by MAGDA HAGEN on 12/22/[address] [facility] Absolute lymphocyte countOrd ered By: Aftab Mendoza on 12-21-2024 Lymphocytes Auto (Unsp spec) [#/Vol] 1.91 10*3/uL 0.83-4.51 [facility] Absolute neutrophil countOrd ered By: Aftab Mendoza on 12-21-2024 Neutrophils (Bld) [#/Vol] 7.6 10*3/uL 2.0-7.7 [facility] Anion gap in Serum or Plasma Ordered By: Aftab Mendoza on 12-21-2024 Anion gap [Moles/Vol] 13 mmol/L 5-15 [facility] Automated lymphocyte count a s percentage of total leukocytesOrdered By: Aftab Mendoza on 12-21-2024 Lymphocytes/100 WBC Auto (Unsp spec) 18.4 % Low 19-41 [facility] BUN/creatinine ratioOrdered By: Aftab Mendoza on 12-21-2024 Urea nitrogen/Creatinine [Mass ratio] 13.0 mg/mg 10-20 [facility] Basophil percentageOrdered B y: Aftab Mendoza on 12-21-2024 Basophils/100 WBC (Bld) 0.4 % 0-1 [facility] Bilirubin Test strip Ql (U)O rdered By: Aftab Mendoza on 12-21-2024 Bilirubin Ql (U) Negative Negative [facility] Bilirubin, totalOrdered By: Aftab Mendoza on 12-21-2024 Bilirubin [Mass/Vol] 0.26 mg/dL 0.00-1.30 [facility] CBC W/Diff, Automatedon 11-25 Absolute Lymph 1.91 X10 3/uL Normal 0.83-4.51 [facility] Comment on above: Performed By: #### L 100.0100 #### [facility] [address] [place], [address] Absolute Neut 7.6 X10 3/uL Normal 2.0-7.7 [facility] Comment on above: Performed By: #### L 100.0100 #### [facility] [address] [place], [address] Basophils/100 WBC (Bld) 0.4 % Normal 0-1 [facility] Comment on above: Performed By: #### L 100.0100 #### [facility] [address] [place], [address] Eosinophils/100 WBC (Bld) 1.4 % Normal 0-5 [facility] Comment on above: Performed By: #### L 100.0100 #### [facility] [address] [place], [address] Erythrocyte distribution width (RBC) [Ratio] 14.0 % Normal 11.6-14.6 [facility] Comment on above: Performed By: #### L 100.0100 #### [facility] [address] [place], [address] Hematocrit (Bld) [Volume fraction] 36.3 % Low 37-47 [facility] Comment on above: Performed By: #### L 100.0100 #### [facility] [address] [place], [address] Hemoglobin (Bld) [Mass/Vol] 12.5 g/dL Normal 12.0-15.0 [facility] Comment on above: Performed By: #### L 100.0100 #### [facility] [address] [place], [address] IG% 0.700 Normal 0.0-0.9 [facility] Comment on above: Result Comment: IG% - Immature Granulocytes (promyelocytes, myelocytes and metamyelocytes) > 1% indicates that a LEFT SHIFT is Present. Performed By: #### L 100.0100 #### [facility] [address] [place], [address] Lymphocytes/100 WBC (Bld) 18.4 % Low 19-41 [facility] Comment on above: Performed By: #### L 100.0100 #### [facility] [address] [place], [address] MCH (RBC) [Entitic mass] 30.3 pg Normal 27.0-32.0 [facility] Comment on above: Performed By: #### L 100.0100 #### [facility] [address] [place], [address] MCHC (RBC) [Mass/Vol] 34.4 g/dL Normal 32-36 [facility] Comment on above: Performed By: #### L 100.0100 #### [facility] [address] [place], [address] MCV (RBC) [Entitic vol] 88.1 fL Normal 81-99 [facility] Comment on above: Performed By: #### L 100.0100 #### [facility] [address] [place], [address] Monocytes/100 WBC (Bld) 6.2 % Normal 0-10 [facility] Comment on above: Performed By: #### L 100.0100 #### [facility] [address] [place], [address] Neutrophils/100 WBC (Bld) 72.9 % High 47-70 [facility] Comment on above: Performed By: #### L 100.0100 #### [facility] [address] [place], [address] Nucleated RBC (Bld) [#/Vol] 0 10*3/uL Normal 0-5 [facility] Comment on above: Performed By: #### L 100.0100 #### [facility] [address] [place], [address] Platelet mean volume (Bld) [Entitic vol] 9.1 fL Normal 6.2-12.0 [facility] Comment on above: Performed By: #### L 100.0100 #### [facility] [address] [place], [address] Platelets (Bld) [#/Vol] 248 10*3/uL Normal 150-450 [facility] Comment on above: Performed By: #### L 100.0100 #### [facility] [address] [place], [address] RBC (Bld) [#/Vol] 4.12 10*6/uL Low 4.2-5.4 [facility] Comment on above: Performed By: #### L 100.0100 #### [facility] [address] [place], [address] RDW SD 44.6 fl High 35.1-43.9 [facility] Comment on above: Performed By: #### L 100.0100 #### [facility] [address] [place], [address] WBC (Bld) [#/Vol] 10.4 10*3/uL Normal 4.4-11.0 [facility] Comment on above: Performed By: #### L 100.0100 #### [facility] [address] [place], [address] Carbon dioxide, total [Moles /volume] in Central venous bloodOrdered By: Aftab Mendoza on 12-21-2024 CO2 [Moles/Vol] 20.6 mmol/L Low 21.0-32.0 [facility] Chloride assayOrdered By: Travis Mendoza on 12-21-2024 Chloride [Moles/Vol] 103 mmol/L 98-108 [facility] Comprehensive Metabolic Prof ilon 12-21-2024 Albumin [Mass/Vol] 3.8 g/dL Normal 3.5-5.0 [facility] Comment on above: Performed By: #### L 500.4050 #### [facility] [address] [place], [address] Albumin/Globulin [Mass ratio] 1.5 {ratio} Normal 0.9-2.4 [facility] Comment on above: Performed By: #### L 500.4050 #### [facility] [address] [place], [address] ALK PHOS 44 U/L Normal 35-104 [facility] Comment on above: Performed By: #### L 500.4050 #### [facility] [address] [place], [address] ALT [Catalytic activity/Vol] 10 U/L Normal <=34 [facility] Comment on above: Performed By: #### L 500.4050 #### [facility] [address] [place], [address] AST [Catalytic activity/Vol] 16 U/L Normal <=31 [facility] Comment on above: Performed By: #### L 500.4050 #### [facility] [address] [place], [address] Bilirubin [Mass/Vol] 0.26 mg/dL Normal 0.00-1.30 [facility] Comment on above: Performed By: #### L 500.4050 #### [facility] [address] [place], [address] BUN/CRE 13.0 RATIO Normal 10-20 [facility] Comment on above: Performed By: #### L 500.4050 #### [facility] [address] [place], [address] Calcium [Mass/Vol] 9.0 mg/dL Normal 7.6-11.0 [facility] Comment on above: Performed By: #### L 500.4050 #### [facility] [address] [place], [address] Chloride [Moles/Vol] 103 mmol/L Normal 98-108 [facility] Comment on above: Performed By: #### L 500.4050 #### [facility] [address] [place], [address] CO2 [Moles/Vol] 20.6 mmol/L Low 21.0-32.0 [facility] Comment on above: Performed By: #### L 500.4050 #### [facility] [address] [place], [address] Creatinine [Mass/Vol] 0.54 mg/dL Low 0.70-1.20 [facility] Comment on above: Performed By: #### L 500.4050 #### [facility] [address] [place], [address] ECRCL 161.60 ml/min Normal 50-250 [facility] Comment on above: Performed By: #### L 500.4050 #### [facility] [address] [place], [address] GAP 13 Normal 5-15 [facility] Comment on above: Performed By: #### L 500.4050 #### [facility] [address] [place], [address] GFR/1.73 sq M.predicted among non-blacks MDRD (S/P/Bld) [Vol rate/Area] 135 mL/min/{1.73_m2} Normal >60 [facility] Comment on above: Result Comment: mL/m in/1.73m2 CKD-EPI Creatinine Equation (2020) Performed By: #### L 500.4050 #### [facility] [address] [place], [address] Globulin (S) [Mass/Vol] 2.6 g/dL Normal 2.2-4.2 [facility] Comment on above: Performed By: #### L 500.4050 #### [facility] [address] [place], [address] Glucose [Mass/Vol] 118 mg/dL High 70-99 [facility] Comment on above: Performed By: #### L 500.4050 #### [facility] [address] [place], [address] Potassium [Moles/Vol] 3.8 mmol/L Normal 3.3-5.1 [facility] Comment on above: Performed By: #### L 500.4050 #### [facility] [address] [place], [address] Sodium [Moles/Vol] 137 mmol/L Normal 133-145 [facility] Comment on above: Performed By: #### L 500.4050 #### [facility] [address] [place], [address] T PROT 6.5 g/dL Normal 5.9-8.4 [facility] Comment on above: Performed By: #### L 500.4050 #### [facility] [address] [place], [place], [address] Urea nitrogen [Mass/Vol] 7 mg/dL Normal 4-19 [facility] Comment on above: Performed By: #### L 500.4050 #### [facility] [address] [place], [address] Emergency Department Summary on 12-21-2024 Emergency Department Summary [facility] Medical Records Department [address] [place] [address] Emergency Department Summary 12/21/24 MR#: [id number] Acct: [id number] Name: PLA NICHOLAS Rep #: [id number] : 2005 19 From: Aftab Mendoza DO [...] management. States that she is following with [facility] OB. Patient denies any vaginal spotting or bleeding. [facility] Medical History (Updated 12/21/24 @ 23:39 [...] of infection. Discussed the case with on-call VINEYARD TENDER for [facility] Dr. Aragon who states that she [...] 72.9 H Lymph % (Auto) 18.4 L [place] % (Auto) 6.2 Eos % (Auto) 1.4 [...] Clarity Clear Urine pH 6.5 Ur Specific [place] 1.010 Urine Protein N (more content not included)... Normal [facility] Eosinophil percentageOrdered By: Aftab Mendoza on 12-21-2024 Eosinophils/100 WBC (Bld) 1.4 % 0-5 [facility] Erythrocyte distribution wid th ratioOrdered By: Aftab Mendoza on 12-21-2024 Erythrocyte distribution width (RBC) [Ratio] 14.0 % 11.6-14.6 [facility] Erythrocyte distribution wid th standard deviationOrdered By: Aftab Mendoza on 12-21-2024 Erythrocyte distribution width (RBC) [Ratio] 44.6 fl High 35.1-43.9 [facility] Glomerular filtration rate ( GFR) estimation/1.73 sq m using serum, plasma, or whole bOrdered By: Aftab Mendoza on 12-21-2024 GFR/1.73 sq M.predicted among non-blacks MDRD (S/P/Bld) [Vol rate/Area] 135 mL/min/{1.73_m2} >60 [facility] Comment on above: mL/min/1.73m2 CKD-EP I Creatinine Equation (2020) Hematocrit Auto (Bld) [Volum e fraction]Ordered By: Aftab Mendoza on 12-21-2024 Hematocrit (Bld) [Volume fraction] 36.3 % Low 37-47 [facility] Hemoglobin measurementOrdere d By: Aftab Mendoza on 12-21-2024 Hemoglobin (Bld) [Mass/Vol] 12.5 g/dL 12.0-15.0 [facility] Immature granulocytes/100 WB C Auto (Bld)Ordered By: Aftab Mendoza on 12-21-2024 Immature granulocytes/100 WBC (Bld) 0.700 % 0.0-0.9 [facility] Comment on above: IG% - Immature Granu locytes (promyelocytes, myelocytes and metamyelocytes) > 1% indicates that a LEFT SHIFT is Present. Ketones Test strip Ql (U)Ord ered By: Aftab Mendoza on 12-21-2024 Ketones Ql (U) Negative Negative [facility] Laboratory - Chemistry and C hemistry - challengeOrdered By: Aftab Mendoza on 12-21-2024 AST [Catalytic activity/Vol] 16 U/L <32 [facility] MCV (mean corpuscular volume ) determinationOrdered By: Aftab Mendoza 12-21-2024 MCV (RBC) [Entitic vol] 88.1 fL 81-99 [facility] Mean corpuscular hemoglobin (MCH) determinationOrdered By: Aftab Mendoza 12-21-2024 MCH (RBC) [Entitic mass] 30.3 pg 27.0-32.0 [facility] Mean corpuscular hemoglobin concentration (MCHC) determinationOrdered By: Aftab Mendoza on 12-21-2024 MCHC (RBC) [Mass/Vol] 34.4 g/dL 32-36 [facility] Mean platelet volume determi nationOrdered By: Aftab Mendoza 12-21-2024 Platelet mean volume (Bld) [Entitic vol] 9.1 fL 6.2-12.0 [facility] Microscopic analysis of urin e for red blood cells (RBC)Ordered By: Aftab Mendoza on 12-21-2024 Microscopic analysis of urine for red blood cells (RBC) 0-5 SEEN /hpf 0-5 [facility] Monocyte percentageOrdered B y: Aftab Mendoza on 12-21-2024 Monocytes/100 WBC (Bld) 6.2 % 0-10 [facility] Mucus LM Ql (Urine sed)Order ed By: Aftab Mendoza on 12-21-2024 Mucus Ql (Urine sed) 0 SEEN /hpf [facility] Neutrophil percentageOrdered By: Aftab Mendoza on 12-21-2024 Neutrophils/100 WBC (Bld) 72.9 % High 47-70 [facility] Nitrite Test strip Ql (U)Ord ered By: Aftab Mendoza on 12-21-2024 Nitrite Ql (U) Negative Negative [facility] Nucleated red blood cell per centageOrdered By: Aftab Mendoza on 12-21-2024 Nucleated RBC/100 WBC (Bld) [Ratio] 0 % 0-5 [facility] Platelet countOrdered By: Travis Mendoza on 12-21-2024 Platelets (Bld) [#/Vol] 248 10*3/uL 150-450 [facility] Potassium measurement (mass/ volume)Ordered By: Aftab Mendoza on 12-21-2024 Potassium (Unsp spec) [Mass/Vol] 3.8 mmol/L 3.3-5.1 [facility] Protein Test strip Ql (U)Ord ered By: Aftab Mendoza on 12-21-2024 Protein Ql (U) Negative Negative [facility] RBC Auto (Bld) [#/Vol]Ordere d By: Aftab Mendoza on 12-21-2024 RBC (Bld) [#/Vol] 4.12 10*6/uL Low 4.2-5.4 [facility] Serum creatinine measurement (mass/volume)Ordered By: Aftab Mendoza on 12-21-2024 Creatinine [Mass/Vol] 0.54 mg/dL Low 0.70-1.20 [facility] Serum globulin measurementOr dered By: Aftab Mendoza on 12-21-2024 Globulin (S) [Mass/Vol] 2.6 g/dL 2.2-4.2 [facility] Serum glucose measurement (m ass/volume)Ordered By: Aftab Mendoza on 12-21-2024 Glucose [Mass/Vol] 118 mg/dL High 70-99 [facility] Serum or plasma alanine [place] otransferase (ALT) measurementOrdered By: Aftab Mendoza on 12-21-2024 ALT [Catalytic activity/Vol] 10 U/L <35 [facility] Serum or plasma albumin mak urement (mass/volume)Ordered By: Aftab Mendoza on 12-21-2024 Albumin [Mass/Vol] 3.8 g/dL 3.5-5.0 [facility] Serum or plasma albumin/glob ulin mass ratioOrdered By: Aftab Mendoza on 12-21-2024 Albumin/Globulin [Mass ratio] 1.5 {ratio} 0.9-2.4 [facility] Serum or plasma alkaline cristofer sphatase measurementOrdered By: Aftab Mendoza on 12-21-2024 ALP [Catalytic activity/Vol] 44 U/L 35-104 [facility] Serum or plasma calcium mak urement (mass/volume)Ordered By: Aftab Mendoza on 12-21-2024 Calcium [Mass/Vol] 9.0 mg/dL 7.6-11.0 [facility] Serum or plasma urea nitroge n measurement (mass/volume)Ordered By: Aftab Mendoza on 12-21-2024 Urea nitrogen [Mass/Vol] 7 mg/dL 4-19 [facility] Sodium levelOrdered By: Chino Mendoza on 12-21-2024 Sodium [Moles/Vol] 137 mmol/L 133-145 [facility] Squamous epithelial cells de tection in urine sediment by light microscopyOrdered By: Aftab Mendoza on 12-21-2024 Epithelial cells.squamous LM Ql (Urine sed) 0-5 SEEN /hpf 5-10 [facility] Total proteinOrdered By: Gustavo Mendoza on 12-21-2024 Protein [Mass/Vol] 6.5 g/dL 5.9-8.4 [facility] Urinalysis, Completeon 12-21 EPI,SQUAMOUS 0-5 SEEN Normal 5-10 [facility] Comment on above: Order Comment: CLEAN CATCH Performed By: #### L 300.8000, L501.4021, L100.0100 #### [facility] [place], [address] RBC 0-5 SEEN Normal 0-5 [facility] Comment on above: Order Comment: CLEAN CATCH Performed By: #### L 300.8000, L501.4021, L100.0100 #### [facility] [address] [place], [address] WBC 0-5 SEEN Normal 0-5 [facility] Comment on above: Order Comment: CLEAN CATCH Performed By: #### L 300.8000, L501.4021, L100.0100 #### [facility] [address] [place], [address] BACTERIA 0 SEEN Normal None Seen [facility] Comment on above: Order Comment: CLEAN CATCH Performed By: #### L 300.8000, L501.4021, L100.0100 #### [facility] [address] [place], [address] Mucus Ql (Urine sed) 0 SEEN Normal [facility] Comment on above: Order Comment: CLEAN CATCH Performed By: #### L 300.8000, L501.4021, L100.0100 #### [facility] [address] [place], [address] Urine clarityOrdered By: Gustavo Mendoza on 12-21-2024 Clarity (U) Clear Clear [facility] Urine color determinationOrd ered By: Aftab Mendoza on 12-21-2024 Color (U) Yellow Yellow [facility] Urine cultureOrdered By: Gustavo Mendoza on 12-21-2024 Bacteria identified Cx Nom (U) Positive Abnormal [facility] Urine glucose detectionOrder ed By: Aftab Mendoza on 12-21-2024 Glucose Ql (U) Normal mg/dl Normal [facility] Urine leukocyte esterase det ection by dipstickOrdered By: Aftab Mendoza on 12-21-2024 Leukocyte esterase Test strip Ql (U) Negative Negative [facility] Urine pHOrdered By: Aftab valentin on 12-21-2024 pH (U) 6.5 [pH] 5.0 - 8.0 [facility] Urine sediment bacteria coun t by microscopy (number/high power field)Ordered By: Aftab Mendoza on 12-21-2024 Bacteria LM.HPF (Urine sed) [#/Area] 0 /[HPF] None Seen [facility] Urine specific gravity measu rementOrdered By: Aftab Mendoza on 12-21-2024 Specific gravity (U) [Rel density] 1.010 1.002-1.030 [facility] Urine urobilinogen measureme ntOrdered By: Aftab Mendoza on 12-21-2024 Urobilinogen Ql (U) Normal mg/dl Normal [facility] White blood cell (WBC) count Ordered By: Aftab Mendoza on 12-21-2024 WBC (Bld) [#/Vol] 10.4 10*3/uL 4.4-11.0 [facility] White blood cell countOrdere d By: Aftab Mendoza on 12-21-2024 White blood cell count 0-5 SEEN /hpf 0-5 [facility] CNPNon 12-01-2024 CNPN Telephone (OGFVWE) ---- PAL NICHOLAS ([id number]) 3 F Date Time Provider Department 12/01/24 NURSE CURB ATTENDANT FRCYNTHIA [facility] During your visit today, we recorded the following information about you: Maria Alejandra Kay, RN 12/01/2024 8:37 AM Signed ----- Message from Rica Pendleton sent at 11/30/2024 4:05 PM EDT ----- Regarding: New/MELVIN OB 16 weeks Patient has been identified by name and Date of : Yes Patient: Pal Nicholas Date of : 2005 Provider for this encounter : CC CURB ATTENDANT WSTR Reason for call: New OB patient (16 weeks as of 11/30/24), M[place] from [place] Was an appointment scheduled: No Reason for requesting visit (RFV/signs and symptoms/diagnosis) : Establish with OB at [facility] for continuation of care. Person calling: self Return call to: self Call patient at: [phone] (cell), it is OK to leave message Payor: ANTHPE[employer] / Plan: BLUE CARD PPO OOS / [...] and verified. Patient wishes to transfer to [facility] for OB care. AMARI? 05/31/25 Gestational age? 14w1d Patient aware to sign up for My Chart so she can receive the "critical care unit nurse" messages. What facility is she transferring from? [facility]B ATTENDANT in [place] Moving to [place] in 2 weeks and will be approx [...] would the patient like to establish in? [place] Will route this encounter to the desired office. Maria Alejandra Kay RN Allergies As of Date: 12/01/2024 (Not on File) Date Reviewed: Never Reviewed Reason for Visit: Care Coordination [3491] Problem List As Of Date: 12/01/2024 (None) Encounter Status:Closed by MAGDA HAGEN on 12/02/24 [facility] Vital Signs Date Time Vital Sign Value Performing Clinician Adina salmon 02-23-2025 20:56-0400 Body height 170.[address] Aftab Mendoza DO Work Phone: [facility] 02-23-2025 20:56-0400 Body mass index (BMI) [Ratio] 28.5 kg/m2 Dr. Aftab Mendoza DO Work Phone: [facility] 02-23-2025 20:56-0400 Body weight 82.[address] Aftab Mendoza DO Work Phone: [facility] 02-13-2025 22:31-0400 Diastolic blood pressure 73 mm[Hg] Dr. Aftab Mendoza DO Work Phone: [facility] 02-13-2025 22:31-0400 Heart rate 95 /min Dr. Aftab Mendoza DO Work Phone: [facility] 02-13-2025 22:31-0400 Systolic blood pressure 120 mm[Hg] Dr. Aftab Mendoza DO Work Phone: 5(477)835-990978 [place] [address] 02-13-2025 22:07-0400 Body temperature 98.6 [degF] Dr. Aftab Mendoza DO Work Phone: [facility] 02-13-2025 22:07-0400 Respiratory rate 16 /min Dr. Aftab Mendoza DO Work Phone: [facility] 02-13-2025 21:53-0400 Body height 170.[address] Aftab Mendoza DO Work Phone: [facility] 02-13-2025 21:53-0400 Body mass index (BMI) [Ratio] 27.7 kg/m2 Dr. Aftab Mendoza DO Work Phone: [facility] 02-13-2025 21:53-0400 Body weight 80.[address] Aftab Mendoza DO Work Phone: [facility] 02-08-2025 10:33-0400 Body mass index (BMI) [Ratio] 27.57 kg/m2 Lynnette Tapia APRN.CNM Work Phone: [facility] 02-08-2025 10:33-0400 Body weight 79.83 kg Lynnette Plotts SUPERINTENDENT OF GENERATION.CNM Work Phone: [facility] 02-08-2025 10:33-0400 Diastolic blood pressure 74 mm[Hg] Lynnette Tapia SUPERINTENDENT OF GENERATION.CNM Work Phone: [facility] 02-08-2025 10:33-0400 Systolic blood pressure 126 mm[Hg] Lynnette Tapia SUPERINTENDENT OF GENERATION.CNM Work Phone: [facility] 02-05-2025 15:26-0400 Diastolic blood pressure 78 mm[Hg] Dr. Aftab Mendoza DO Work Phone: [facility] 02-05-2025 15:26-0400 Heart rate 80 /min Dr. Aftab Mendoza DO Work Phone: [facility] 02-05-2025 15:26-0400 Systolic blood pressure 124 mm[Hg] Dr. Aftab Mendoza DO Work Phone: [facility] 02-05-2025 15:10-0400 Body temperature 99 [degF] Dr. Aftab Mendoza DO Work Phone: [facility] 02-05-2025 15:10-0400 Respiratory rate 16 /min Dr. Aftab Mendoza DO Work Phone: [facility] 02-05-2025 15:10-0400 SaO2% (BldA) [Mass fraction] 96 % Dr. Aftab Mendoza DO Work Phone: [facility] 02-04-2025 22:37-0400 Body temperature 99.4 [degF] Dr. Aftab Mendoza DO Work Phone: [facility] 02-04-2025 22:37-0400 Diastolic blood pressure 84 mm[Hg] Dr. Aftab Mendoza DO Work Phone: [facility] 02-04-2025 22:37-0400 Heart rate 92 /min Dr. Aftab Mendoza DO Work Phone: [facility] 02-04-2025 22:37-0400 Respiratory rate 16 /min Dr. Aftab Mendoza DO Work Phone: 0(502)697-979078 [place] [address] 02-04-2025 22:37-0400 Systolic blood pressure 129 mm[Hg] Dr. Aftab Mendoza DO Work Phone: 1(230)331-386878 [place] [address] 02-04-2025 22:23-0400 Body height 170.[address] Aftab Mendoza DO Work Phone: 1(350)831-102978 [place] [address] 02-04-2025 22:23-0400 Body mass index (BMI) [Ratio] 27.2 kg/m2 Dr. Aftab Mendoza DO Work Phone: 0(766)114-605278 [place] [address] 02-04-2025 22:23-0400 Body weight 78.[address] Aftab Mendoza DO Work Phone: 7(177)552-112392 [place] [address] 02-02-2025 21:12-0400 Body temperature 98.8 [degF] Dr. Aftab Mendoza DO Work Phone: 5(800)971-003092 [place] [address] 02-02-2025 21:12-0400 Diastolic blood pressure 78 mm[Hg] Dr. Aftab Mendoza DO Work Phone: 8(192)359-008278 [place] [address] 02-02-2025 21:12-0400 Heart rate 109 /min Dr. Aftab Mendoza DO Work Phone: 9(363)530-817278 [place] [address] 02-02-2025 21:12-0400 Respiratory rate 16 /min Dr. Aftab Mendoza DO Work Phone: 8(063)496-006278 [place] [address] 02-02-2025 21:12-0400 SaO2% (BldA) [Mass fraction] 98 % Dr. Aftab Mendoza DO Work Phone: 7(191)651-504978 [place] [address] 02-02-2025 21:12-0400 Systolic blood pressure 123 mm[Hg] Dr. Aftab Mendoza DO Work Phone: 4(051)953-846978 [place] [address] 02-02-2025 21:07-0400 Body height 170.[address] Aftab Mendoza DO Work Phone: 0(544)071-388678 [place] [address] 02-02-2025 21:07-0400 Body mass index (BMI) [Ratio] 27.2 kg/m2 Dr. Aftab Mendoza DO Work Phone: [facility] 02-02-2025 21:07-0400 Body weight 78.[address] Aftab Mendoza DO Work Phone: [facility] 02-02-2025 14:04-0400 Body mass index (BMI) [Ratio] 27.41 kg/m2 Lester Phillips MD Work Phone: [facility] 02-02-2025 14:04-0400 Body weight 79.38 kg Lester Phillips MD Work Phone: [facility] 02-02-2025 14:04-0400 Diastolic blood pressure 78 mm[Hg] Lester Phillips MD Work Phone: [facility] 02-02-2025 14:04-0400 Systolic blood pressure 122 mm[Hg] Lester Phillips MD Work Phone: [facility] 01-20-2025 09:55-0400 Body mass index (BMI) [Ratio] 26.31 kg/m2 Karina Blanco MD Work Phone: [facility] 01-20-2025 09:55-0400 Body weight 76.2 kg Karina Blanco MD Work Phone: [facility] 01-20-2025 09:55-0400 Diastolic blood pressure 62 mm[Hg] Karina Blanco MD Work Phone: [facility] 01-20-2025 09:55-0400 Systolic blood pressure 116 mm[Hg] Karina Blanco MD Work Phone: [facility] 01-11-2025 15:00-0400 Body mass index (BMI) [Ratio] 25.34 kg/m2 Ramakrishna Corley MD Work Phone: [facility] 01-11-2025 15:00-0400 Body weight 73.39 kg Ramakrishna Corley MD Work Phone: [facility] 01-11-2025 15:00-0400 Diastolic blood pressure 70 mm[Hg] Ramakrishna Corley MD Work Phone: [facility] 01-11-2025 15:00-0400 Systolic blood pressure 110 mm[Hg] Ramakrishna Corley MD Work Phone: [facility] 12-28-2024 08:46-0400 Body height 170.2 cm Lynnette Tapia SUPERINTENDENT OF GENERATION.CNM Work Phone: [facility] 12-28-2024 08:46-0400 Body mass index (BMI) [Ratio] 24.9 kg/m2 Lynnette Tapia SUPERINTENDENT OF GENERATION.CNM Work Phone: [facility] 12-28-2024 08:46-0400 Body weight 72.12 kg Lynnette Tapia SUPERINTENDENT OF GENERATION.CNM Work Phone: [facility] 12-28-2024 08:46-0400 Diastolic blood pressure 74 mm[Hg] Lynnette Tapia SUPERINTENDENT OF GENERATION.CNM Work Phone: [facility] 12-28-2024 08:46-0400 Systolic blood pressure 114 mm[Hg] Lynnette Tapia SUPERINTENDENT OF GENERATION.CNM Work Phone: [facility] 12-22-2024 00:00-0400 Heart rate 81 /min Dr. Aftab Mendoza DO Work Phone: [facility] 12-22-2024 00:00-0400 Respiratory rate 16 /min Dr. Aftab Mendoza DO Work Phone: [facility] 12-22-2024 00:00-0400 SaO2% (BldA) [Mass fraction] 98 % Dr. Aftab Mendoza DO Work Phone: [facility] 12-21-2024 23:57-0400 Body temperature 97.4 [degF] Dr. Aftab Mendoza DO Work Phone: [facility] 12-21-2024 23:57-0400 Diastolic blood pressure 58 mm[Hg] Dr. Aftab Mendoza DO Work Phone: [facility] 12-21-2024 23:57-0400 Systolic blood pressure 110 mm[Hg] Dr. Aftab Mendoza DO Work Phone: [facility] 12-21-2024 20:27-0400 Body height 170.[address] Aftab Mendoza DO Work Phone: [facility] 12-21-2024 20:27-0400 Body mass index (BMI) [Ratio] 24.4 kg/m2 Dr. Aftab Mendoza DO Work Phone: [facility] 12-21-2024 20:27-0400 Body weight 70.[address] Aftab Mendoza DO Work Phone: [facility] Encounters Encounter Date Encounter Type Care Provider Facility Start: 03-29-2025 End: 03-29-2025 Emergency department patient visit Eugene Morejon Facility:[facility] Start: 03-29-2025 End: 03-29-2025 ambulatory [facility] Facility:[facility] Start: 03-26-2025 End: 03-26-2025 ambulatory [facility] Facility:[facility] Start: 03-17-2025 End: 03-17-2025 ambulatory Magda Aragon Facility:[facility] Start: 03-15-2025 End: 03-15-2025 ambulatory [facility] Facility:[facility] Start: 03-13-2025 End: 03-13-2025 ambulatory [facility] Facility:[facility] Start: 03-11-2025 End: 03-11-2025 ambulatory [facility] Facility:[facility] Start: 03-08-2025 End: 03-08-2025 ambulatory REGGIE MA Facility:[facility] Start: 02-23-2025 End: 02-23-[address] Aftab Mendoza DO Work Phone: -[facility] Start: 02-23-2025 End: 02-23-2025 Patient encounter procedure Patsy March CN -[facility] Work Phone: Start: 02-18-2025 End: 02-18-2025 ambulatory KARI JOHNSTON Facility:[facility] Start: 02-16-2025 End: 02-16-2025 ambulatory LESTER PHILLIPS Facility:[facility] Start: 02-13-2025 End: 02-13-[address] Aftab Mendoza DO Work Phone: -[facility] Start: 02-13-2025 End: 02-13-[address] Magda Aragon MD -[facility] Work Phone: Start: 02-13-2025 End: 02-13-2025 Emergency department patient visit ALEXA DICKSON Facility:[facility] Start: 02-08-2025 End: 02-08-2025 Patient encounter procedure Lynnette Tapia APRN.CNM Work Phone: OB/Gynecology Comment on above: Encounter for superv ision of normal first in second trimester (HCC) (Primary Dx); 24 weeks gestation of (HCC); Screening for diabetes mellitus; Vaginal discharge during in second trimester (HCC) Start: 02-08-2025 End: 02-08-2025 ambulatory LYNNETTE TAPIA Facility:[facility] Start: 02-05-2025 End: 02-05-2025 Telephone [...] ision of normal first in second trimester ([facility]) (Primary Dx); Vaginal discharge; 21 weeks gestation of ([facility]); Abdominal pain affecting ([facility]) Start: 01-20-2025 End: 01-20-2025 ambulatory KARINA BLANCO Facility:[facility] Start: 01-19-2025 End: 01-20-2025 ambulatory Ramakrishna Corley MD Work Phone: OB/Gynecology Start: 01-19-2025 End: 01-20-2025 Follow-up encounter Ramakrishna Corley MD Work Phone: OB/Gynecology Comment on above: Follow up from ER Start: 01-18-2025 End: 01-19-2025 Emergency department patient visit NUZHAT ZAMORANO Facility:[facility] Start: 01-18-2025 End: 01-20-2025 Telephone encounter Lynnette Tapia APRN.CNM Work Phone: OB/Gynecology Comment on above: Breast Pump Start: 01-14-2025 End: 01-14-2025 Telephone encounter Ramakrishna Corley MD Work Phone: OB/Gynecology Comment on above: Orders Start: 01-12-2025 End: 01-12-2025 ambulatory RAMAKRISHNA CORLEY Facility:[facility] Start: 01-11-2025 End: 01-11-2025 Patient encounter procedure Ramakrishna Corley MD Work Phone: OB/Gynecology Comment on above: Bacterial vaginosis (Primary Dx); 20 weeks gestation of ([facility]); Burning with urination; Palpitations; Other fatigue; Weakness; Encounter for supervision of normal first in second trimester ([facility]) POTS (postural ortho static tachycardia syndrome) (Primary Dx); Visit for screening ([facility]); 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[facility]); Chronic hypertension affecting ([facility]) Start: 01-11-2025 End: 01-11-2025 [facility] Start: 01-07-2025 End: 01-12-2025 Telephone encounter Ej Rodriguez MD Work Phone: [facility] Comment on above: Appointment Start: 01-06-2025 End: 01-06-2025 Emergency department patient visit ALEXA DICKSON Facility:[facility] Start: 01-06-2025 End: 01-07-2025 Telephone encounter Karina Addison APRN.CNM Work Phone: OB/Gynecology Comment on above: OB Vaginal Pressure Start: 01-05-2025 End: 01-05-2025 Telephone encounter Jayla Keller MD Work Phone: [facility] Comment on above: OB Pain Start: 01-04-2025 End: 01-05-2025 ambulatory NUZHAT ZAMORANO Facility:[facility] Start: 01-04-2025 End: 01-21-2025 Telephone encounter Magda Aragon MD Work Phone: OB/Gynecology Comment on above: Low back aching/cram ping pelvic region Start: 12-30-2024 End: 12-30-2024 ambulatory [facility] Start: 12-28-2024 End: 12-28-2024 Patient encounter procedure Lynnette Tapia SUPERINTENDENT OF GENERATION.CNM Work Phone: OB/Gynecology Comment on above: Visit for s creening (HCC) (Primary Dx); 18 weeks gestation of (HCC); Encounter for supervision of high risk in second trimester, antepartum (HCC); 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[facility]); POTS (postural orthostatic tachycardia syndrome); Cystic fibrosis carrier; Screening for STD (sexually transmitted disease); Abdominal pain during in second trimester ([facility]); Bacterial vaginosis Start: 12-28-2024 End: 12-28-2024 ambulatory [facility]NNETTE [facility] Facility:[facility] Start: 12-25-2024 End: 12-25-2024 Telephone encounter Lynnette Tapia APRN.CNM Work Phone: OB/Gynecology Comment on above: Received Outside Med ical Records Start: 12-22-2024 End: 12-22-2024 ambulatory [facility]EMAN [facility] Start: 12-22-2024 End: 12-22-2024 Telephone encounter Karina Addison MD Work Phone: OB/Gynecology Comment on above: OB Pelvic Pain Start: 12-21-2024 End: 12-22-2024 Emergency department patient visit Dr. Aftab Mendoza DO Work Phone: -Emergency Department Work Phone: Start: 12-01-2024 End: 12-02-2024 Telephone encounter Nurse [employer] [facility] Work Phone: Obstetrics/Gynecology Comment on above: Care Coordination Procedures Date Procedure Procedure Detail Performing Clinician Start: 03-11-2025 Antibody screen KARINA BLANCO Comment on above: Order Comment: Speci men Type: BLOOD SPECIMENOrdering Facility: [facility] Address: [address] [place] [address] Performed By: #### T SPN ####[facility] [id number] [place] [address] [place] Start: 02-08-2025 Urnls dip stick/tabl et rgnt auto w/o microscopy Lynnette Tapia SUPERINTENDENT OF GENERATION.CNM Work Phone: Start: 02-08-2025 BACTERIAL VAGINOSIS NAAT Lynnette Tapia SUPERINTENDENT OF GENERATION.CNM Work Phone: Start: 02-08-2025 Iadna trichomonas va ginalis amplified probe tech Lynnette Tapia SUPERINTENDENT OF GENERATION.CNM Work Phone: Start: 02-04-2025 Urnls dip stick/tabl et reagent auto microscopy Dr. Aftab Mendoza DO Work Phone: Start: 02-04-[address] Aftab Mendoza DO Work Phone: Start: 02-02-2025 Urnls dip stick/tabl et reagent auto microscopy DrPeter Mendoza DO Work Phone: Start: 02-02-2025 Urnls [...] after 1st trimest 05/27 gestation Lynnette Tapia SUPERINTENDENT OF GENERATION.[place]IL[place]OM Work Phone: Start: 01-11-2025 Urnls dip stick/tabl [...] Scree hernando () GC (Gonorrhea) Screening () [facility] Start: 01-06-2026 Screening for Chlamy eva trachomatis Chlamydia Screening () [facility] Start: 04-05-2025 RSV Vaccine (1 - Ris k 1-dose series) RSV Vaccine (1 - Risk 1-dose series) [facility] Start: 03-11-2025 End: 03-11-2025 Patient encounter procedure [facility] Comment on above: Growth Growth/OB Start: 03-11-2025 End: 03-11-2025 ambulatory 03/11/2025 9:45 AM EDT Results Only [facility] [address] [place] [address] Glucose Test [facility] Comment on above: Glucose Test Start: 03-08-2025 End: 03-08-2025 Patient encounter procedure 03/08/2025 9:20 AM EDT Office Visit [facility] [address] [place] [address] Reggie Ma MD [address] [facility] [address] [place] [address] est care, hx EDS and POTS, EKG non-specific ST-T wave abnormality, currently . MS/ EKG kk [facility] Comment on above: est care, hx EDS and POTS, EKG non-specific ST-T wave abnormality, currently . MS/ EKG kk Start: 02-23-2025 Patient discharge [facility] Start: 02-13-2025 Nonstress test [facility] Start: 02-13-[address] [facility] Start: 02-13-2025 Vital signs measurements [facility] Start: 02-13-2025 [facility] Start: 02-13-2025 Patient discharge [facility] Start: 02-08-2025 End: 05-10-2025 ANEMIA REFLEX PANEL ANEMIA REFLEX PANEL Lab Routine Encounter for supervision of normal first in second trimester (HCC) 24 weeks gestation of (HCC) Expected: 02/08/2025, Expires: 05/10/2025 [facility] Comment on above: Expected: 02/08/2025 , Expires: 05/10/2025 Start: 02-08-2025 End: 02-08-2026 GESTATIONAL GLUCOSE SCREEN, 1-HOUR, 50 GRAM, NON-FASTING GESTATIONAL GLUCOSE SCREEN, 1-HOUR, 50 GRAM, NON-FASTING Lab Routine Encounter for supervision of normal first in second trimester (HCC) 24 weeks gestation of (HCC) Screening for diabetes mellitus Expected: 02/08/2025, Expires: 02/08/2026 [facility] Work Phone: Comment on above: Expected: 02/08/2025 , Expires: 02/08/2026 Start: 02-08-2025 End: 02-08-2026 SYPHILIS TREPONEMAL W/REFLEX SYPHILIS TREPONEMAL W/REFLEX Lab Routine Encounter for supervision of normal first in second trimester (HCC) 24 weeks gestation of (HCC) Expected: 02/08/2025, Expires: 02/08/2026 [facility] Comment on above: Expected: 02/08/2025 , Expires: 02/08/2026 Start: 02-08-2025 End: 02-08-2025 Patient encounter procedure 02/08/2025 10:30 AM EDT Routine Office Visit OB/Gynecology [address] [place], [place] [id number] Lynnette Tapia APRN.CN [address] [place] [address] LMP:08/24/24, New 1st OB 12/28/24 OB/Gynecology Comment on above: LMP:08/24/24, New 1st OB 12/28/24 Start: 02-05-2025 End: 02-05-2025 Patient encounter procedure [facility] [place] Comment on above: est care, hx EDS and POTS, EKG non-specific ST-T wave abnormality, currently . MS est care, hx EDS and POTS, EKG non-specific ST-T wave abnormality, currently . MS/ EKG kk Start: 02-05-2025 [facility] Start: 02-05-2025 Patient discharge [facility] Start: 02-04-2025 Nonstress test [facility] Start: 02-04-[address] [facility] Start: 02-04-2025 Vital signs measurements [facility] Start: 02-04-2025 [facility] Start: 02-04-2025 Bacteria identified in Urine by Culture Urine Culture [facility] Start: 02-02-2025 End: 02-02-2025 [facility] Start: 02-02-2025 Nonstress test [facility] Start: 02-02-[address] [facility] Start: 02-02-2025 Vital signs measurements [facility] Start: 02-02-2025 [facility] Start: 02-02-2025 Bacteria identified in Urine by Culture Urine Culture [facility] Start: 02-02-2025 Patient discharge [facility] Start: 01-28-2025 End: 01-28-2025 Patient encounter procedure 01/28/2025 10:00 AM EDT Routine Office Visit OB/Gynecology [address] [place] [address] Magda Aragon MD [address] [place] [address] LMP:08/24/24, New 1st OB 12/28/24 OB/Gynecology Comment on above: LMP:08/24/24, New 1st OB 12/28/24 Start: 01-25-2025 Influenza vaccination Influenza Vacc ine (#1) [facility] Start: 01-11-2025 End: 01-11-2025 Patient encounter procedure Maternal Medicine Comment on above: Anatomy Anatomy/OB Start: 01-11-2025 End: 04-12-2025 TSH W/REFLEX FT4 TSH W/REFLEX FT4 Lab Routine Palpitations Other fatigue Weakness Expected: 01/11/2025, Expires: 04/12/2025 [facility] Comment on above: Expected: 01/11/2025 , Expires: 04/12/2025 Start: 12-28-2024 End: 12-28-2025 OBSTETRIC ULTRASOUND WHI OBSTETRIC ULTRASOUND WHI Anc Imaging Routine Visit for screening (HCC) Expected: 12/28/2024, Expires: 12/28/2025 [facility] Work Phone: Comment on above: Expected: 12/28/2024 , Expires: 12/28/2025 Start: 12-28-2024 End: 12-28-2024 Patient encounter procedure OB/Gynecology Comment on above: LMP:08/24/24 LMP:08/24/24 - record s in chart prep binder Start: 12-21-2024 [facility] Start: 12-21-2024 [facility] Start: 12-21-2024 Bacteria identified in Urine by Culture Urine Culture [facility] Start: 01-26-2024 Covid-19 Vaccine ( season) Covid-19 Vaccine ( season) [facility] Start: 11-25-2023 Hepatitis B Vaccine (1 of 3 - 19+ 3-dose series) Hepatitis B Vaccine (1 of 3 - 19+ 3-dose series) [facility] Start: 11-25-2023 Urine microalbumin profile DTaP,Tdap,Td Vaccine (1 - Tdap) [facility] Start: 2022 Anxiety Screening Anxiety Screening [facility] Start: 2022 Depression Screening Depression Scre ening [facility] Start: 2022 GC (Gonorrhea) Scree hernando (18-24) GC (Gonorrhea) Screening (18-24) [facility] Start: 2022 Hepatitis C screening Hepatitis C Sc reening [facility] Start: 2022 HIV screening HIV Screening [facility] Start: 2022 Screening for Chlamy eva trachomatis Chlamydia Screening (18-24) [facility] Start: 2020 Meningococcal B Vacc ine (1 of 2 - Standard) Meningococcal B Vaccine (1 of 2 - Standard) [facility] Start: 11-25-2019 HPV Vaccine (1 - 3-d ose series) HPV Vaccine (1 - 3-dose series) [facility] Start: 2018 Peds To Adult Transi tion Annual Assessment Peds To Adult Transition Annual Assessment [facility] Start: 2016 Peds To Adult Transi tion Initial Discussion Peds To Adult Transition Initial Discussion [facility] Bacteria identified in Urine by Culture BACTERIAL CULTURE, URINE Microbiology Routine Burning with urination Ordered: 01/11/2025 [facility] Comment on above: Ordered: 01/11/2025 Bacteria identified in Urine by Culture BACTERIAL CULTURE, URINE Microbiology Routine Vaginal discharge during in second trimester ([facility]) 02/08/2025 11:17 AM EDT [facility] BACTERIAL VAGINOSIS NAAT BACTERI AL VAGINOSIS NAAT Lab Routine Visit for screening ([facility]) 12/28/2024 11:27 AM EDT [facility] BACTERIAL VAGINOSIS NAAT BACTERI AL VAGINOSIS NAAT Lab Routine Bacterial vaginosis Ordered: 01/11/2025 [facility] Work Phone: Comment on above: Ordered: 01/11/2025 PARVEEN/TRICHOMONAS NAAT PARVEEN /TRICHOMONAS NAAT Lab Routine Visit for screening (HCC) 12/28/2024 11:27 AM EDT [facility] PARVEEN/TRICHOMONAS NAAT PARVEEN /TRICHOMONAS NAAT Lab Routine Bacterial vaginosis Ordered: 01/11/2025 [facility] Comment on above: Ordered: 01/11/2025 Patient Education Kick Counts ED False Labor OB Triage: Return to Hospital or Notify Physician if you Experience: [facility] Work Phone: Urine culture [facility] Urine culture [facility] Urine culture [facility] Payers Date Payer Category Payer Self-pay 2023 [employer] BLUE CARD PPO OOS [id number] 2023 Unknown [id number] Unknown [id number] Unknown [id number] Unknown [id number] Unknown [id number] Unknown [id number] Unknown [id number] Unknown [id number] Unknown [id number] Unknown [id number] Social History Date Type Detail Facility [facility] consumption unknown [facility] Start: 2005 Sex assigned at Not on file [facility] Start: 12-28-2024 End: 01-11-2025 Gender identity Not on file [facility] Start: 12-21-2024 End: 12-28-2024 Tobacco smoking status CAIS Never smoked tobacco (finding) [facility] Start: 2005 Sex Assigned At Female [facility] Start: 09-07-2024 [facility] Start: 12-28-2024 Tobacco use and exposure Smokeless tobacco non-user [facility] Start: 12-28-2024 End: 01-11-2025 History of Social function [facility] Start: 11-30-2024 Adult Depression Screening Assessment 0 [facility] Goals Date Patient Goal Desired Activity /State Personal health goal Personal health goal Functional Status Date Assessment Result Facility 01-19-2025 Are you deaf, or do you have serious difficulty hearing No 01/19/2025 3:40 AM Armida Owens RN No [facility] 01-19-2025 Are you blind, or do you have serious difficulty seeing, even when wearing glasses No 01/19/2025 3:40 AM Armida Owens RN No [facility] 01-19-2025 Do you have serious difficulty walking or climbing stairs No 01/19/2025 3:40 AM Armida Owens RN No [facility] 01-19-2025 Do you have difficul ty dressing or bathing No 01/19/2025 3:40 AM EDT Armida Neves, LEVON No [facility] 01-19-2025 Because of a physica l, mental, or emotional condition, do you have difficulty doing errands alone such as visiting a physician's office or shopping No 01/19/2025 3:40 AM EDT Armida Neves, LEVON No [facility] 01-06-2025 Are you deaf, or do you have serious difficulty hearing No 01/06/2025 10:25 PM Benita Yeager RN No [facility] 01-06-2025 Are you blind, or do you have serious difficulty seeing, even when wearing glasses No 01/06/2025 10:25 PM Benita Yeager RN No [facility] 01-06-2025 Do you have serious difficulty walking or climbing stairs No 01/06/2025 10:25 PM Benita Yeager RN No [facility] 01-06-2025 Do you have difficul ty dressing or bathing No 01/06/2025 10:25 PM Benita Yeager RN No [facility] 01-06-2025 Because of a physica l, mental, or emotional condition, do you have difficulty doing errands alone such as visiting a physician's office or shopping No 01/06/2025 10:25 PM Benita Yeager RN No [facility] 01-05-2025 Are you deaf, or do you have serious difficulty hearing No 01/05/2025 2:21 AM Ayanna Price, LEVON No [facility] 01-05-2025 Are you blind, or do you have serious difficulty seeing, even when wearing glasses No 01/05/2025 2:21 AM Ayanna Price, LEVON No [facility] 01-05-2025 Do you have serious difficulty walking or climbing stairs No 01/05/2025 2:21 AM Ayanna Price, LEVON No [facility] 01-05-2025 Do you have difficul ty dressing or bathing No 01/05/2025 2:21 AM Ayanna Price, LEVON No [facility] 01-05-2025 Because of a physica l, mental, or emotional condition, do you have difficulty doing errands alone such as visiting a physician's office or shopping No 01/05/2025 2:21 AM Ayanna Price, LEVON No [facility] 12-22-2024 Are you deaf, or do you have serious difficulty hearing No 12/22/2024 9:46 PM Armida Rodriguez RN No [facility] 12-22-2024 Are you blind, or do you have serious difficulty seeing, even when wearing glasses No 12/22/2024 9:46 PM Armida Rodriguez RN No [facility] 12-22-2024 Do you have serious difficulty walking or climbing stairs No 12/22/2024 9:46 PM Armida Rodriguez RN No [facility] 12-22-2024 Do you have difficul ty dressing or bathing No 12/22/2024 9:46 PM Armida Rodriguez RN No [facility] 12-22-2024 Because of a physica l, mental, or emotional condition, do you have difficulty doing errands alone such as visiting a physician's office or shopping No 12/22/2024 9:46 PM Armida Rodriguez RN No [facility] Mental Status Date Assessment Result Facility 01-19-2025 Because of a physica l, mental, or emotional condition, do you have serious difficulty concentrating, remembering, or making decisions No 01/19/2025 3:40 AM Armida Owens RN No [facility] 01-06-2025 Because of a physica l, mental, or emotional condition, do you have serious difficulty concentrating, remembering, or making decisions No 01/06/2025 10:25 PM Benita Yeager RN No [facility] 01-05-2025 Because of a physica l, mental, or emotional condition, do you have serious difficulty concentrating, remembering, or making decisions No 01/05/2025 2:21 AM Ayanna Price, LEVON No [facility] 12-22-2024 Because of a physica l, mental, or emotional condition, do you have serious difficulty concentrating, remembering, or making decisions No 12/22/2024 9:46 PM EDT Armida Pennington RN No [facility] Clinical Notes 2005 to 03-11-2025 Note Date & Type Note Facility 03-11-2025 Note HNO ID: [id number] Author: JOCELYNE BLACK RN Service: ? Author Type: Registered Nurse Type: Progress Notes Filed: 03/11/2025 12:22 Note Text: The patient is here for an injection of Rhogam. Dose: 300 mcg Amount wasted: none. Route: Intramuscular Site: left upper quadrant gluteus Scrap Materials Buyer: [employer] Lot #: [id number] Expiration Date: 09/04/[address] [facility] 03-11-2025 Note HNO ID: [id number] Author: PRITI SHARMA MA Service: ? Author Type: Engineer Automated Equipment Type: Progress Notes Filed: 03/11/2025 12:22 Note [...] severely ill: Yes Patient denies history of Guillain-Savage Syndrome (a severe paralytic illness): Yes Tdap Adacel injection was given without incident. See immunizations for details of immunizations administered today. VIS sheet provided: Yes Provider Ramakrishna Corley DO was present in office at time of injection. Priti Sharma MA [facility] 03-08-2025 Note HNO ID: [id number] Author: REGGIE MA MD Service: ? Author Type: Physician Type: Progress Notes Filed: 03/08/2025 09:45 Note Text: PRIMARY CARE PHYSICIAN: To use this Smartlink, specify the provider ID whose address you want to display, e.g., .PROVADDR[1 (where 1 is the provider ID). REFERRING PHYSICIAN: [address] [facility] [address] CHIEF COMPLAINT: Abnormal EKG HISTORY OF PRESENT [...] of illicit drugs. 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 She has 1 other sibling. She is here in the office with her mom. Paternal grandfather suddenly at age 49. She stated the diagnosis of Myles-Danlos was made by a events traffic controller and opto mechanical technician. She is not sure if she had genetic testing. 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 Nontender. EXTREMETIES: No peripheral edema. Grade [...] (U/L) Date Value 01/18/2025 11 URINALYSIS Specific [place], Ur Date Value Ref Range Status 02/13/2025 1.019 1.005 - 1.030 Final Glucose, Urine Date Value Ref Range Status 02/13/2025 Negative Trac (more content not included)... [facility] 02-23-2025 History and physical note Note Date/Time February 23, 2025 9:06pm [facility] Medical Records Department [address] [place] [address] OB Triage Physician Note 02/23/252054 MR#: [id number] Acct: [id number] Name: PAL NICHOLAS Rep #: [id number] : 2005 19 From: Lester Phillips MD PCP: Care Physician,No Primary Status :REG CLI Y Location: [place] [id number] [facility] - General General Date of Service: 02/23/25 HPI Narrative PAL NICHOLAS, is a 19 F who presents back pain, side pain and some contractions. Maternal Data Information AMARI Calculator 2 Estimated Delivery Date Method Current WG Current Estimate 05/31/25 Manual 26w 1d PFSH [facility] Medical History (Updated 02/23/25 @ [...] MD; No Primary Care Physician ~ Signed [facility] Work Phone: 1(615) 177-730309-30-2025 History and physical note [facility] Medical Records Department [address] [place] [address] OB Triage Physician Note 02/23/252054 MR#: [id number] Acct: [id number] Name: PAL NICHOLAS Rep #:[id number] : 2005 19 From: Lester Phillips MD PCP: Care Physician,No Primary Status :REG CLI Y Location: [place] [address] HPI - General General Date of Service: 02/23/25 HPI Narrative PAL NICHOLAS, is a 19 F who presents back pain, side pain and some contractions. Maternal Data Information AMARI Calculator 2 Estimated Delivery Date Method Current WG Current Estimate 05/31/25 Manual 26w 1d [facility] Medical History (Updated 02/23/25 @ 20:56 [...] 02/23/252105 MD> Date _ Lester Phillips MD Cosigner Signature (if applicable): Date CC: Dr. Lester Phillips MD; No Primary Care Physician ~ Signed [facility]09-25-2025 NoteHNO ID: [id number] Author: KARI JOHNSTON MD Service: ? Author Type: Physician Type: Progress Notes Filed: 02/18/2025 13:16 Note Text: Female Pelvic Medicine AND Reconstructive Surgery Consult Recording using [employer] software for draft documentation of the visit was discussed with the patient/authorized telesales representative; all questions welcomed and answered. Patient/authorized telesales representative agreed to proceed CHIEF COMPLAINT: Pal [...] history. PAST MEDICAL HISTORY Diagnosis Date Asthma ([facility]) 2012 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HCC) POTS (postural orthostatic [...] retention, (+) uterine contractio (more content not included)...[facility]09-20-2025 NoteHNO ID: [id number] Author: KERVIN GARDINER DO Service: Obstetrics Author [...] (Temporal) Resp 16 Ht 170.2 cm (5' 7") Wt 78.9 kg (174 lb) LMP 08/24/2024 (Exact Date) SpO2 98% BMI 27.25 kg/m? Follow-up: Appointments for Next 60 Days Date Time Provider Location Dept Phone 03/08/2025 9:20 AM REGGIE MA [facility] [phone] 03/11/2025 9:45 AM LAB [facility] [place] [place] [phone] 03/11/2025 10:00 AM WHI TECH 1 CURB ATTENDANT [facility] [place] [phone] 03/11/2025 10:00 AM CURB ATTENDANT MFM W[facility] [place] [phone] 03/11/2025 11:10 AM RAMAKRISHNA CORLEY [place] [phone] Precautions: Reviewed return precautions including vaginal bleeding soaking through a pad an hour for 2 consecutive hours, increasing or severe abdominal pain, intractable nausea/vomiting. New or adjusted home medications: none Other recommendations/instructions: Follow-up with Urogynecology outpatient. Kervin Gardiner [facility]09-20-2025 NoteHNO ID: [id number] Author: KERVIN GARDINER DO Service: Obstetrics Author Type: Resident Type: Progress Notes Filed: 02/13/2025 14:39 Note Text: 1325: Completed TVUS. Concern for possible funneling with contractions. Discussed with MFM case consultant given possible funneling in the setting of Myles' Danlos syndrome. Advised to encourage hydration and that no other intervention indicated at this time. Kervin Gardienr DO PGY-1 February 13, 2025 1:49 [facility]09-20-2025 NoteHNO ID: [id number] Author: MARIAJOSE MONTANEZ MD Service: Obstetrics Author [...] this report can be found under the "Get Images" tab in user[employer]gents. SIGNATURE: Kervin Gardiner DO PATIENT NAME: Pal Nicholas DATE: February 13, 2025 TIME: 1:41 [facility]09-20-2025 NoteHNO ID: [id number] Author: RONALD COOPER RN Service: Nursing Author Type: Registered Nurse Type: Progress Notes Filed: 02/13/2025 10:59 Note Text: Bladder scanner not recognizing bladder probe. After troubleshooting, not able to use. Dr. Montanez aware.[facility]09-20-2025 NoteHNO ID: [id number] Author: MARIAJOSE MONTANEZ MD Service: Obstetrics Author [...] (Temporal) Resp 16 Ht 170.2 cm (5' 7") Wt 78.9 kg (174 lb) LMP 08/24/2024 [...] SpO2: 98 % Height: 170.2 cm (5' 7") Weight: 78.9 kg (174 lb) BMI: 27.25 SENSITIVE EXAMINATION CONSENT: Participation of a fellow, resident, medical student, or advanced practice provider student in performing the sensitive examination was discussed with the patient or authorized telesales representative. The patient or authorized telesales representative has agreed to proceed with the [...] DO) Station: -2 (02/13/25 1142 : Kervin Gardiner, ) Effacement (%): 20 (02/13/25 1142 : Kervin [...] and imaging (more content not included)...[facility]09-15-2025 Progress note* Quick Notes - Lynnette [...] No apparent distress Abd: Gravid, non tender TELEGRAPH AND TELETYPE OPERATOR- small amount of yellow / white discharge [...] and planning Fresh Test Lynnette Tapia APRN.CNM [facility]09-15-2025 Miscellaneous Notes* Quick Notes - Lynnette [...] No apparent distress Abd: Gravid, non tender TELEGRAPH AND TELETYPE OPERATOR- small amount of yellow / white discharge [...] Test Lynnette Tapia APRN.CNM [facility] History and physical note Author Lynnette Tapia [facility] Note Date/Time February 05, 2025 5:47pm [facility] Medical Records Department [address] [place] [address] OB Triage Physician Note 02/05/25 1742 MR#: [id number] Acct: [id number] Name: PAL NICHOLAS Rep #:[id number] : 2005 19 From: Lynnette Tapia CNM PCP: Care Physician,No Primary Status :REG CLI Y Location: [place] [address] HPI - General General Chief Complaint: ctx's HPI Narrative PAL NICHOLAS, is a 19 F at 23 weeks gestation who presents back to triage for cramping. Seen and evaluated last night in triage and started on Macrobid 100 mg PO BID for UTI. Maternal Data Information AMARI Calculator Estimated Delivery Date Method Current WG Current Estimate 05/31/25 Manual 23w 4d [facility] Medical History (Updated 02/05/25 @ [...] Suprapubic pain: (3) History of UTI: (4) Hardy Zaragoza' contraction: COMMENT: cervix closed (5) 23 [...] Tapia; No Primary Care Physician ~ Signed [facility] Work Phone: [phone] 322-253709-12-2025 History and physical note [facility] Medical Records Department [address] [place] [address] OB Triage Physician Note 02/05/25 1742 MR#: [id number] Acct: [id number] Name: PAL NICHOLASE Rep #:[id number] : 2005 19 From: Lynnette Tapia CNM PCP: Care Physician,No Primary Status :REG CLI Y Location: [place] [address] HPI - General General Chief Complaint: ctx's HPI Narrative DYLONDALE SARAHY KAUR, is a 19 F at 23 weeks gestation who presents back to triage for cramping. Seen and evaluated last night in triage and started on Macrobid 100 mg PO BID for UTI. Maternal Data Information AMARI Calculator Estimated Delivery Date Method Current WG Current Estimate 05/31/25 Manual 23w 4d [facility] Medical History (Updated 02/05/25 @ 00:00 [...] home with follow up in office 02/05/25 5027 ts CNM> Date _ Lynnette Tapia CNM Cosigner Signature (if applicable): Date CC: HUMPHREY Tapia; No Primary Care Physician ~ Signed [facility]09-12-2025 Telephone encounter Note* Telephone Encounter - [...] for evaluation. L&D notified. Jocelyne Black RN [facility]09-12-2025 Miscellaneous Notes* Telephone Encounter - Jocelyne [...] notified. Jocelyne Black RN [facility]25 History and physical note Author Ramakrishna Corley [facility] Note Date/Time February 05, 2025 12:03am [facility] Medical Records Department [address] [place] [address] OB Triage Physician Note 02/04/25 4055 MR#: [id number] Acct: [id number] Name: SARAHY KAURLAURAGEO RACHEL Rep #:[id number] : 2005 19 From: Ramakrishna Corley DO PCP: Care Physician,No Primary Status :REG CLI Y Location: [place] [address] HPI - General General Date of Service: 02/04/25 Chief Complaint: ctx's HPI Narrative PAL SARAHY KAUR, is a 19 F who presents ctx's. She states she has had contractions and abdominal pain for 1-2 weeks. Went to [facility] 2 weeks agofor this and had [...] vb or lof. No constipation or diarrhea. [facility] Medical History (Updated 02/05/25 @ 00:00 [...] (1) 23 weeks gestation of : (2) Hardy Zaragoza' contraction: COMMENT: cervix closed PLAN: Cervix [...] DO; No Primary Care Physician ~ Signed [facility] Work Phone: 1(409) 317-299309-12-2025 History and physical note [facility] Medical Records Department [address] [place] [address] OB Triage Physician Note 02/04/25 6167 MR#: [id number] Acct: [id number] Name: PAL NICHOLAS Rep #: : 2005 19 From: Ramakrishna Corley DO PCP: Care Physician,No Primary Status :REG CLI Y Location: [address] - General General Date of Service: 02/04/25 Chief Complaint: ctx's HPI Narrative PAL NICHOLAS, is a 19 F who presents ctx's. She states she has had contractions and abdominalpain for 1-2 weeks. Went to [facility] 2 weeks agofor this and had [...] vb or lof. No constipation or diarrhea. [facility] Medical History (Updated 02/05/25 @ 00:00 [...] DO; No Primary Care Physician ~ Signed [facility]09-09-2025 History and physical note [facility] Medical Records Department [address] [place] [address] [place] [address] OB Triage Physician Note 02/02/25 6146 MR#: [id number] Acct: [id number] Name: PAL NICHOLAS Rep #:[id number] : 2005 19 From: Magda Aragon MD PCP: Care Physician,No Primary Status :REG CLI Y Location: [address] HPI - General General Date of [...] Angel Zaragoza' contraction: COMMENT: cervix closed 02/02/25 9718 in MD> Date _ Magda Aragon MD Cosigner Signature (if applicable): Date CC: Dr. Magda Aragon MD; No Primary Care Physician ~ Signed [facility]09-09-2025 Evaluation note* Diagnosis Onset Date Resolution Status Admit Date 23 weeks gestation of acute February 02 8:50pm Hardy Zaragoza' contraction acute February 02, 2025 8:50pm [facility] Work Phone: 1(987) 420-839909-09-2025 Evaluation note* Diagnosis Onset Date Resolution Status Admit Date 23 weeks gestation of acute February 02 8:50pm Angel Zaragoza' contraction acute February 02, 2025 8:50pm 23 weeks gestation of acute February 04, 2025 10:13pm Angel Zaragoza' contraction acute February 04, 2025 10:13pm Dysuria acute January 10:13pm History of UTI acute February 04, 2025 10:13pm Suprapubic pain acute February 04, 2025 10:13pm [facility] Work Phone: 1([phone]) 137-757309-09-2025 Evaluation note* Diagnosis Onset Date Resolution Status [...] Suprapubic pain acute February 13, 2025 9:49pm [facility] Work Phone: 1(439) 138-100809-09-2025 Evaluation note* Diagnosis Onset Date Resolution Status Admit Date 23 weeks gestation of acute February 02 8:50pm Angel Zaragoza' contraction acute February 02, 2025 8:50pm 23 weeks gestation of acute February 04, 2025 10:13pm Hardy Zaragoza' contraction acute February 04, 2025 10:13pm Dysuria acute January 10:13pm History of UTI acute February 04, 2025 10:13pm Suprapubic pain acute February 04, 2025 10:13pm Dysuria acute January 9:49pm Suprapubic pain acute February 13, 2025 9:49pm Threatened labor acute February 23, 2025 8:00pm [facility] Work Phone: 1(174) 574-633209-09-2025 Miscellaneous Notes* Quick Notes - Lester Phillips MD - 02/02/2025 2:25 PM EDT KJ - S: Pal denies contractions or vaginal bleeding. Patient reports increased discharge with possible LOF. Also would like checked for a UTI,. O: 23w1d, see flow sheet SENSITIVE EXAM: The sensitive examination was discussed with the Patient or Patient's Authorized Installer Molding And Trim. As applicable, any other physician, advance practice provider, medical student, or other health professional student that will be observing or involved in the sensitive examination for educational or training purposes was discussed with the Patient or Authorized Installer Molding And Trim. The Patient or Authorized Installer Molding And Trim has agreed to proceed with the sensitive examination. (Sensitive examination includes inspection and/or palpation of the breasts, pelvis, prostate and anorectal regions). SSE: normal vagina, cervix closed negative pool/fern/nitrazine A/P: Assessment & Plan Vaginal discharge during , antepartum (HCC) Orders: UA DIP, URINE (POC) Patient reassured on normal vaginal discharge. Follow up as scheduled. Lester Phillips MD documented in [facility]09-[facility]25 Progress note* Quick Notes - Lester Phillips MD - 02/02/2025 2:25 PM EDT KJ - S: Pal denies contractions or vaginal bleeding. Patient reports increased discharge with possible LOF. Also would like checked for a UTI,. O: 23w1d, see flow sheet SENSITIVE EXAM: The sensitive examination was discussed with the Patient or Patient's Authorized Installer Molding And Trim. As applicable, any other physician, advance practice provider, medical student, or other health professional student that will be observing or involved in the sensitive examination for educational or training purposes was discussed with the Patient or Authorized Installer Molding And Trim. The Patient or Authorized Installer Molding And Trim has agreed to proceed with the sensitive examination. (Sensitive examination includes inspection and/or palpation of the breasts, pelvis, prostate and anorectal regions). SSE: normal vagina, cervix closed negative pool/fern/nitrazine A/P: Assessment & Plan Vaginal discharge during , antepartum (HCC) Orders: UA DIP, URINE (POC) Patient reassured on normal vaginal discharge. Follow up as scheduled. Lester Phillips MD [facility]09-09-2025 Telephone encounter Note* Telephone Encounter - Magda Hagen RN - 02/02/2025 11:11 AM EDT Patient called in to the office. Appointment given today. Magda Hagen RN [facility]09-09-2025 Miscellaneous Notes* Telephone Encounter - Magda Hagen RN - 02/02/2025 11:11 AM EDT Patient called in to the office. Appointment given today. Magda Hagen RN documented in this encounterGreene [facility] Hospital08-27-2025 Telephone encounter Note * Telephone Encounter - Jocelyne Black RN - 01/20/2025 11:33 AM EDT Order signed and faxed. Jocelyne Black RN [facility]08-27-2025 Miscellaneous Notes* Telephone Encounter - Jocelyne Black RN - 01/20/2025 11:33 AM EDT Order signed and faxed. Jocelyne Black RN * Telephone Encounter - Isaura Pereira RN - 01/18/2025 8:45 AM EDT [facility] To CP to sign. Isaura Pereira RN documented in this encounterGreene [facility] Hospital08-27-2025 NoteHNO ID: [id number] Author: KARINA SALDAÑA MD Service: ? Author [...] was discussed with the patient or authorized telesales representative. The patient or authorized telesales representative has agreed to proceed with the [...] Medical Decision Making Level: 4 - Moderate [facility] History of Present illness Narrative* Karina [...] was discussed with the patient or authorized telesales representative. The patient or authorized telesales representative has agreed to proceed with the sensitive examination. @ 21.2 weeks Assessment & Plan Encounter for supervision of normal first in second trimester (HCC) Vaginal discharge Vaginal cultures today 21 weeks gestation of ([facility]) RTO as scheduled Abdominal pain affecting (HCC) Went to ER had CT scan - no acute findings. Causes of pain reviewed with patient. - abdominal binder -urine culture pending from Er - ER results reviewed Medical Decision Making: Problems: Moderate: New problem with uncertain prognosis Data: Unique test(s) ordered: 3+ Medical Decision Making Level: 4 - Moderate Karina Omer MD documented in this encounterGreene Memorial Hospital08-27-2025 Progress note* Quick Notes - Karina [...] was discussed with the patient or authorized telesales representative. The patient or authorized telesales representative has agreed to proceed with the sensitive examination. @ 21.2 weeks Assessment & Plan Encounter for supervision of normal first in second trimester (HCC) Vaginal discharge Vaginal cultures today 21 weeks gestation of ([facility]) RTO as scheduled Abdominal pain affecting (HCC) Went to ER had CT scan - no acute findings. Causes of pain reviewed with patient. - abdominal damien Omer MD [facility]08-27-2025 Miscellaneous Notes* Quick Notes - Karina [...] was discussed with the patient or authorized telesales representative. The patient or authorized telesales representative has agreed to proceed with the [...] abdominal damien Omer MD documented in this encounterGreene Memorial Hospital08-27-2025 Instructions* Patient Instructions* Ana Cristina Fitch MA - 01/20/2025 9:54 AM EDT SEQUENTIAL SCREENINGS [facility] offers sequential screenings for women who [...] testing. It will require an appointment withour snow technician. This is not an ultrasound performed [...] the above symptoms, contact our office at [phone] and ask to speak with anurse. After hours, you can call doctors registry at [phone] OR call [facility] at [phone] ask to have the doctor case consultant paged. If you consider this an emergency, dial 9-5-8 or go to your nearest emergency department. NEED HELP? Are you dealing with a violent or abusive relationship? Are you a victim of rape or sexual assult? Call [facility] ([place]) 24 hour Crisis Hotline: 213.401.6061 or 175-024-0875. MANUAL Your Guide to a Healthy manual is now on-line. Visit [email or web address] to download your free copy documented in this encounterGreene Memorial Hospital08-26-2025 NoteHNO ID: [id number] Author: ARMIDA PENNINGTON RN Service: Nursing Author Type: Registered Nurse Type: Nursing Progress Note Filed: 01/19/2025 00:45 Note Text: Patient returned to [facility] at this time. No distress noted.[facility]08-26-2025 NoteHNO ID: [id number] Author: ARMIDA PENNINGTON RN Service: Nursing Author Type: Registered Nurse Type: Nursing Progress Note Filed: 01/19/2025 00:45 Note Text: Patient taken to CT at this time via wheelchair. RN accompanied patient. No distress noted.[facility]08-25-2025 NoteHNO ID: [id number] Author: CHAD LOYOLA DO Service: Obstetrics Author [...] medical physics group. Chad Loyola DO, MPH VINEYARD TENDER PGY-2AWill[facility]08-25-2025 NoteHNO ID: [id number] Author: CHAD LOYOLA DO Service: Obstetrics Author [...] was discussed with the patient or authorized telesales representative. The patient or authorized telesales representative has agreed to proceed with the [...] note made by medical student: Chantel Quintana, M4. I have personally seen and examined the [...] 18, 2025 TIME: 9:34 PM PAGER/CONTACT #: [id number]08-25-2025 Telephone encounter Note* Telephone Encounter - Isaura Pereira RN - 01/18/2025 8:45 AM EDT Breast pump order received from [employer]. To CP to sign. Isaura Pereira RN [facility]08-21-2025 Telephone encounter Note* Telephone Encounter - Ramakrishna Corley MD - 01/14/2025 1:34 PM EDT See result note [facility]08-21-2025 Miscellaneous Notes* Telephone Encounter - Ramakrishna Corley MD - 01/14/2025 1:34 PM EDT See result note documented in this encounterGreene Memorial Hospital08-18-2025 Note* Addendum Note - Ramakrishna Corley MD - 01/11/2025 3:49 PM EDTAddended by: RAMAKRISHNA CORLEY on: 01/11/2025 03:49 PM Modules accepted: Orders [facility]08-18-2025 Miscellaneous Notes* Addendum Note - Ramakrishna [...] several weeks ago, treated after she wentto [place] triage. Now has dysuria. No vb, lof, [...] wks Ramakrishna Corley DO documented in this encounterGreene Memorial Hospital08-18-2025 Note* Addendum Note - Priti Sharma MA - 01/11/2025 3:24 PM EDTAddended by: PRITI SHARMA on: 01/11/2025 03:24 PM Modules accepted: Orders [facility]08-18-2025 Progress note* Quick Notes - Ramakrishna Corley MD - 01/11/2025 3:12 PM EDT SW- Lower pelvic cramping and dysuria with a BV infection several weeks ago, treated after she wentto [place] triage. Now has dysuria. No vb, lof, [...] - Rto 4 wks Ramakrishna Corley DO [facility]08-18-2025 Instructions* Patient Instructions* Priti Sharma MA - 01/11/2025 2:59 PM EDT SEQUENTIAL SCREENINGS [facility] offers sequential screenings for women who [...] testing. It will require an appointment withour snow technician. This is not an ultrasound performed [...] the above symptoms, contact our office at [phone] and ask to speak with anurse. After hours, you can call doctors registry at [phone] OR call [facility] at [phone] ask to have the doctor case consultant paged. If you consider this an emergency, dial 9-- or go to your nearest emergency department. NEED HELP? Are you dealing with a violent or abusive relationship? Are you a victim of rape or sexual assult? Call [facility] ([place]) 24 hour Crisis Hotline: 741.562.6627 or 424-032-8233. MANUAL Your Guide to a Healthy manual is now on-line. Visit [email or web address] to download your free copy documented in this encounterGreene Memorial Hospital08-15-2025 Telephone encounter Note * Telephone Encounter - Kari Abebe - 01/08/2025 2:39 PM EDT Scheduled 02/05/[address] Burns. Kari Abebe [facility]08-15-2025 Miscellaneous Notes* Telephone Encounter - Kari Abebe - 01/08/2025 2:39 PM EDT Scheduled 02/05/[address] Burns. Kari Abebe * Telephone Encounter - Ej Rodriguez MD - 01/07/2025 12:40 PM EDT Patient was seen by resident but not by any attending opto mechanical technician while in labor and delivery she is and carries diagnosis of Myles-Danlos syndrome and POTS. She needs a new patient general cardiology appointment in the next 1 to 4 weeks. Please try to arrange this. If there are no spots or anyone let me know thanks Ej Rodriguez MD documented in this encounterGreene Memorial Hospital08-14-2025 Telephone encounter Note * Telephone Encounter - Ej Rodriguez MD - 01/07/2025 12:40 PM EDT Patient was seen by resident but not by any attending opto mechanical technician while in labor and delivery she is and carries diagnosis of Myles-Danlos syndrome and POTS. She needs a new patient general cardiology appointment in the next 1 to 4 weeks. Please try to arrange this. If there are no spots or anyone let me know thanks Ej Rodriguez MD [facility] Work Phone: [phone] Telephone encounter Note* Telephone Encounter - Jocelyne Black RN - 01/07/2025 10:35 AM EDT Patient was seen at [facility] last night. She has OB and MFM appointment on Saturday. Jocelyne Black RN [facility]08-14-2025 Miscellaneous Notes* Telephone Encounter - Jocelyne Black RN - 01/07/2025 10:35 AM EDT Patient was seen at [facility] last night. She has OB and [...] 01/05 telephone notes. Patient was seen at [facility] OB ED triage on 01/04. The diarrhea has resolved. Advised that she go back to [facility] as the office is closing. Patient asked for an appointment tomorrow instead because of transportation. No available appointments. Advised that she should be evaluated today in case she is having labor. Voiced understanding and believes she could have a friend take her. CAROLINA Hagen, RN documented in this encounterGreene Memorial Hospital08-14-2025 Telephone encounter Note * Telephone Encounter - Karina Addison MD - 01/07/2025 10:00 AM EDT If not improved work in any cancellations, go to L&D for eval or schedule tomorrow if openings.Karina Addison MD [facility] Work Phone: 1(183) 386-979508-13-2025 NoteHNO ID: [id number] Author: ALEXA DICKSON MD Service: Obstetrics Author [...] usual. PAST MEDICAL HISTORY Diagnosis Date Asthma ([facility]) 2012 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HCC) POTS (postural orthostatic [...] for dysuria or urinary frequency, urinary urgency TELEGRAPH AND TELETYPE OPERATOR: Negative for abnormal vaginal bleeding, negative fluid [...] was discussed with the patient or authorized telesales representative. The patient or authorized telesales representative has agreed to proceed with the [...] normal, oropharynx (more content not included)...[facility]08-13-2025 Telephone encounter Note* Telephone Encounter - [...] 01/05 telephone notes. Patient was seen at [facility] ED triage on 01/04. The diarrhea has resolved. Advised that she go back to [facility] as the office is closing. Patient asked for an appointment tomorrow instead because of transportation. No available appointments. Advised that she should be evaluated today in case she is having labor. Voiced understanding and believes she could have a friend take her. CAROLINA Hagen RN [facility]08-12-2025 Telephone encounter Note* Telephone Encounter - Jocelyne Black RN - 01/05/2025 12:19 PM EDT Patient notified and voiced understanding. Jocelyne Black RN [facility]08-12-2025 Miscellaneous Notes* Telephone Encounter - Jocelyne Black RN - 01/05/2025 12:19 PM EDT Patient notified and voiced understanding. Jocelyne Black RN * Telephone Encounter - Lester Phillips MD - 01/05/2025 12:07 PM EDT Patient was seen by Mitesh Kulkarni while at [facility]. I recommend supportive care with hydration, potassiumrich foods such as bananas and rest. Agree that after a GI illness it can take several days to feelbetter. Please keep current appointment on Saturday. Lester Phillips MD * Telephone Encounter - Magda Hagen RN - 01/05/2025 11:34 AM EDT 19w1d See 01/04 phone note. Patient went to [facility] OB ED last night. [place] notes available to review. Patient was prescribed [...] feel completely confident in the diagnosis from [place]. Please advise. Magda Hagen RN documented in this encounterGreene Memorial Hospital08-12-2025 Telephone encounter Note * Telephone Encounter - Lester Phillips MD - 01/05/2025 12:07 PM EDT Patient was seen by Mitesh Kulkarni while at [facility]. I recommend supportive care with hydration, potassiumrich foods such as bananas and rest. Agree that after a GI illness it can take several days to feelbetter. Please keep current appointment on Saturday. Lester Phillips MD [facility] Work Phone: [phone] Telephone encounter Note* Telephone Encounter - Magda Hagen RN - 01/05/2025 11:34 AM EDT 19w1d See 01/04 phone note. Patient went to [facility] ED last night. [facility]'s notes available to review. Patient was prescribed [...] feel completely confident in the diagnosis from [place]. Please advise. Magda Hagen RN [facility]08-12-2025 Telephone encounter Note* Telephone Encounter - Jayla Keller MD - 01/05/2025 11:17 AM EDT Images from the original note were not included. Patient called requesting Rx for potassium and imodium after being seen in the OB ED 1 day ago. Jayla Keller MD [facility]08-12-2025 Miscellaneous Notes* Telephone Encounter - Jayla Keller MD - 01/05/2025 11:17 AM EDT Images from the original note were not included. Patient called requesting Rx for potassium and imodium after being seen in the OB ED 1 day ago. Jayla Keller MD documented in this encounterGreene Memorial Hospital08-11-2025 NoteHNO ID: [id number] Author: KARINA ADDISON MD Service: Obstetrics Author [...] breath. PAST MEDICAL HISTORY Diagnosis Date Asthma (HCC) [...] : Negative for dysuria or urinary frequency TELEGRAPH AND TELETYPE OPERATOR: Negative for abnormal vaginal bleeding, abnormal vaginal discharge Objective LAST VITALS: Pulse: 102 BP: 120/63 Temp: 36.3 ?C (97.3 ?F) SpO2: 99 % SENSITIVE EXAMINATION CONSENT: Participation of a fellow, resident, medical student, or advanced practice provider student in performing the sensitive examination was discussed with the patient or authorized telesales representative. The patient or authorized telesales representative has agreed to proceed with the [...] course of (more content not included)...[facility]08-11-2025 Telephone encounter Note* Telephone Encounter - [...] states this is stayingthe same since at [facility] 12/22/24. Last few weeks, Pt states extremely watery discharge. Went to [facility] at that time d/t havingsharp cervical pain & was treated for BV. Feels hydrated/Has been drinking liquid IV. Does havesome burning on urination & was seen on 12/30/24 in office-UA completed and TRACE protein and TRACE leukocytes. Advised Pt that since pain has worsened as the day as gone on that it would be best to go to [facility] OB triage to be evaluated as no appts available in office at this time. Pt did state she'd feel more comfortable going there and that is essentially why she called as she wanted to discuss with a nurse. Pt states her ride will not be able to pick her up for another 30 minutes, but Pt is agreeable to go to [place]. Dr. Aragon notified. Maite Peterson RN [facility]08-11-2025 Miscellaneous Notes* Telephone Encounter - Maite [...] states this is stayingthe same since at [facility] 12/22/24. Last few weeks, Pt states extremely watery discharge. Went to [facility] at that time d/t havingsharp cervical pain & was treated for BV. Feels hydrated/Has been drinking liquid IV. Does havesome burning on urination & was seen on 12/30/24 in office-UA completed and TRACE protein and TRACE leukocytes. Advised Pt that since pain has worsened as the day as gone on that it would be best to go to [facility] OB triage to be evaluated as no appts available in office at this time. Pt did state she'd feel more comfortable going there and that is essentially why she called as she wanted to discuss with a nurse. Pt states her ride will not be able to pick her up for another 30 minutes, but Pt is agreeable to go to [place]. Dr. Aragon notified. Maite Peterson RN documented in this encounterGreene Memorial Hospital08-04-2025 Miscellaneous Notes* Quick Notes - Lynnette Tapia APRN.CNM - 12/28/2024 11:15 AM EDT Patient is at 18 weeks gestation here for NOB. She is new to office and has received adequateprenatal care in [place]. Awaiting records. Lynnette Tapia APRN.CNM documented in this encounterGreene Memorial Hospital08-04-2025 Progress note* Quick Notes - Lynnette Tapia APRN.CNM - 12/28/2024 11:15 AM EDT Patient is at 18 weeks gestation here for NOB. She is new to office and has received adequateprenatal care in [place]. Awaiting records. Lynnette Tapia APRN.CNM [facility]08-04-2025 NoteHNO ID: [id number] Author: LYNNETTE TAPIA APRN.CNM Service: ? Author Type: Esl Instructional Assistant Type: Progress Notes Filed: 12/28/2024 13:23 Note Text: Gang Boss offered: Patient declines. INITIAL OB ASSESSMENT HPI: [...] all that apply)? Centering (group care classes); Returned Goods Inspector; Esl Instructional Assistant care Social History: Do you have any [...] documented. Marital Status:Committed relationship Partner: Name: Zaki Stevne Age: 19 Occupation: [employer] Gender: Male PAST MEDICAL HISTORY Diagnosis Date [...] Itching GENITOURINARY: Negative f (more content not included)...[facility]08-04-2025 History of Present illness Narrative* RoxieLynnette huffman APRN.WILBERTOM - 12/28/2024 8:36 AM EDT Gang Boss offered: Patient declines. INITIAL OB ASSESSMENT HPI: [...] all that apply)? Centering (group care classes); Returned Goods Inspector; Esl Instructional Assistant care Social History: Do you have any [...] Partner: Name: Zaki Steven Age: 19 Occupation: [employer] Gender: Male PAST MEDICAL HISTORY Diagnosis Date [...] discussed with the Patient or Patient's Authorized Installer Molding And Trim. As applicable, any other physician, advance practice provider, medical student, or other health professional student that will be observing or involved in the sensitive examination for educational or training purposes was discussed with the Patient or Authorized Installer Molding And Trim. The Patient or Authorized Installer Molding And Trim has agreed to proceed with the sensitive [...] Your guide to a health and the Electrolytic De Scaler. Discussed Centering group- MAY BE INTERESTED 2) [...] prn. Lynnette Tapia APRN.CNM documented in this encounterGreene Memorial Hospital08-04-2025 Instructions* Patient Instructions* Ralph Molina LPN - 12/28/2024 8:36 AM EDT Please select the following link to access the [facility] Your Guide to a Healthy . [email or web address] documented in this encounterGreene Memorial Hospital08-01-2025 Telephone encounter Note * Telephone Encounter - Isaura Pereira RN - 12/25/2024 12:13 PM EDT Records received from [facility] in [place]. In chart prep binder for NOB appt on 12/28 with CP. Isaura Pereira RN [facility]08-01-2025 Miscellaneous Notes* Telephone Encounter - Isaura Pereira RN - 12/25/2024 12:13 PM EDT Records received from [facility] in [place]. In chart prep binder for NOB appt on 12/28 with CP. Isaura Pereira RN documented in this encounterGreene Memorial Hospital07-29-2025 NoteHNO ID: [id number] Author: MARK FOREMAN MD Service: Obstetrics Author [...] and recurrent UTIs. She recently moved from [place] and is establishing care with [facility]. Pt states her abdominal pain is intermittent and began around 6 pm yesterday. She was evaluated at [place] ED yesterday where she was found to [...] nausea, vomiting, or diarrhea : + dysuria TELEGRAPH AND TELETYPE OPERATOR: Negative for abnormal vaginal bleeding, + for [...] was discussed with the patient or authorized telesales representative. The patient or authorized telesales representative has agreed to proceed with the [...] a course (more content not included)...[facility]07-29-2025 Telephone encounter Note* Telephone Encounter - Magda Hagen RN - 12/22/2024 4:23 PM EDT Patient notified. Magda Hagen RN [facility]07-29-2025 Miscellaneous Notes* Telephone Encounter - Magda [...] urgent issue or go to [facility] at [facility] or see if there is a [...] ER report: Discussed the case with on-call VINEYARD TENDER for [facility] Dr. Aragon who states that she [...] review. Magda Hagen RN documented in this encounterGreene Memorial Hospital07-29-2025 Telephone encounter Note * Telephone Encounter - Karina Addison MD - 12/22/2024 3:38 PM EDT Agree w/ keep scheduled appointment. Make sure we have US results/labs for NOB. If infection ruled out and no bleeding would recommend stretching, tylenol and warm baths prn. Can return to ED if urgent issue or [facility] Center or see if there is a sooner NOB elsewhere to get her established then f/u here. Karina Addison MD [facility] Work Phone: 1(128) 742-989007-29-2025 Telephone encounter Note* Telephone Encounter - Magda [...] ER report: Discussed the case with on-call VINEYARD TENDER for [facility] Dr. Aragon who states that she [...] report to to review. Magda Hagen RN [facility]07-28-2025 Discharge summary [facility] Medical Records Department [address] [place] [address] Emergency Department Summary 12/21/24 MR#: [id number] Acct: [id number] Name: PAL NICHOLAS Rep #:[id number] : 2005 19 From: Aftab Mendoza DO [...] management. States that she is following with [facility] OB. Patient denies any vaginal spotting or bleeding. [facility] Medical History (Updated 12/21/24 @ 23:39 [...] of infection. Discussed the case with on-call VINEYARD TENDER for [facility] Dr. Aragon who states that she [...] 72.9 H Lymph % (Auto) 18.4 L [place] % (Auto) 6.2 Eos % (Auto) 1.4 [...] Clarity Clear Urine pH 6.5 Ur Specific [place] 1.010 Urine Protein Negative Urine Glucose (UA) [...] - Activity Restrictions/Additional Instructions: Follow-up with your VINEYARD TENDER at your scheduled appointment on Saturday. Your blood work did not show any acute findings your urine did not show any evidence infection. Return with worsening symptoms or any concerns. Ensure you are hydrating plenty with water. Print Language: Beninese Disposition Disposition: Home, Self Care What to do if you have Problems For any increased pain, shortness of breath, bleeding, nausea or vomiting, chestpain, or any unexpected problems, contact your Primary Care Provider. Call [facility] ([phone]) or report tothe closest Emergency Room. Call 911 if necessary. 12/21/24 9462 Cosigner Signature (if applicable): CC: No Primary Care Physician ~ Signed [facility]07-28-2025 Discharge summary Author Aftab Mendoza [facility] Note Date/Time December 21, 2024 11:3 9pm [facility] Medical Records Department [address] [place] [address] Emergency Department Summary 12/21/24 MR#: [id number] Acct: [id number] Name: PAL NICHOLAS Rep #:[id number] : 2005 19 From: Aftab Mendoza DO [...] management. States that she is following with [facility] OB. Patient denies any vaginal spotting or bleeding. [facility] Medical History (Updated 12/21/24 @ 23:39 [...] of infection. Discussed the case with on-call VINEYARD TENDER for [facility] Dr. Aragon who states that she [...] 72.9 H Lymph % (Auto) 18.4 L [place] % (Auto) 6.2 Eos % (Auto) 1.4 [...] Clarity Clear Urine pH 6.5 Ur Specific [place] 1.010 Urine Protein Negative Urine Glucose (UA) [...] - Activity Restrictions/Additional Instructions: Follow-up with your VINEYARD TENDER at your scheduled appointment on Saturday. Your blood work did not show any acute findings your urine did not show any evidence infection. Return with worsening symptoms or any concerns. Ensure you are hydrating plenty with water. Print Language: Beninese Disposition Disposition: Home, Self Care What to do if you have Problems For any increased pain, shortness of breath, bleeding, nausea or vomiting, chestpain, or any unexpected problems, contact your Primary Care Provider. Call [facility] ([phone]) or report to the closest Emergency Room. Call 911 if necessary. 12/21/24 4992 <Electronically signed by Aftab Mendoza DO> Cosigner Signature (if applicable): CC: No Primary Care Physician ~ Signed [facility] Work Phone: 1(531) 836-715107-28-2025 Hospital Discharge instructionsAdditional Instructions Follow-up with your VINEYARD TENDER at your scheduled appointment on Saturday. Your blood work did not show any acute findings your urine did not show any evidence infection. Return with worsening symptoms or any concerns. Ensure you are hydrating plenty with water.[facility] Work Phone: 1(323) 201-105007-08-2025 Telephone encounter Note* Telephone Encounter - Maria Alejandra Kay RN - 12/01/2024 10:27 AM EDT Name and verified. Patient wishes to transfer to [facility] for OB care. AMARI? 05/31/25 Gestational age? 14w1d Patient aware to sign up for My Chart so she can receive the "critical care unit nurse" messages. What facility is she transferring from? [facility] in [place] Moving to [place] in 2 weeks and will be approx [...] would the patient like to establish in? [place] Will route this encounter to the desired office. Maria Alejandra Kay RN [facility]07-08-2025 Miscellaneous Notes* Telephone Encounter - Maria Alejandra Kay RN - 12/01/2024 10:27 AM EDT Name and verified. Patient wishes to transfer to [facility] for OB care. AMARI? 05/31/25 Gestational age? 14w1d Patient aware to sign up for My Chart so she can receive the "critical care unit nurse" messages. What facility is she transferring from? [facility] in [place] Moving to [place] in 2 weeks and will be approx [...] would the patient like to establish in? [place] Will route this encounter to the desired [...] : 2005 Provider for this encounter : [facility] Reason for call: New OB patient (16 weeks as of 11/30/24), MELVIN from [place] Was an appointment scheduled: No Reason for requesting visit (RFV/signs and symptoms/diagnosis) : Establish with OB at [facility] for continuation of care. Person calling: self Return call to: self Call patient at: [phone] (cell), it is OK to leave message Payor: ANTHEM / Plan: BLUE CARD PPO OOS / Product Type: JENNIFERO / Rica Garcia [facility] Telephone encounter Note * Telephone Encounter - Maria Alejandra Kay RN - 12/01/2024 10:09 AM EDT Call placed to patient to triage for new OB appt. Left message for patient to call back Maria Alejandra Kay RN [facility]07-08-2025 Telephone encounter Note* Telephone Encounter - Maria Alejandra Kay RN - 12/01/2024 8:38 AM EDT Call placed to patient to triage for new OB appt. No answer, will try later Maria Alejandra Kay RN [facility]07-08-2025 Telephone encounter Note* Telephone Encounter - Maria Alejandra Kay RN - 12/01/2024 8:37 AM EDT ----- Message from Rica Pendleton sent at 11/30/2024 4:05 PM EDT ----- Regarding: New/MELVIN OB 16 weeks Patient has been identified by name and Date of : Yes Patient: Pal Nicholas Date of : 2005 Provider for this encounter : [facility] Reason for call: New OB patient (16 weeks as of 11/30/24), MELVIN from [place] Was an appointment scheduled: No Reason for requesting visit (RFV/signs and symptoms/diagnosis) : Establish with OB at [facility] for continuation of care. Person calling: self Return call to: self Call patient at: [phone] (cell), it is OK to leave message Payor: ANTHEM / Plan: BLUE CARD PPO OOS / Product Type: PPO / Rica Garcia [facility]07-01-2005 History and physical note [facility] Medical Records Department [address] [place] [address] OB Triage Physician Note 02/13/25 2321 MR#: [id number] Acct: [id number] Name: PAL NICHOLAS Rep #:[id number] : 2005 19 From: Magda Aragon MD PCP: Care Physician,No Primary Status :DEP CLI Y Location: [facility] HPI - General General Date of Service: 02/13/25 Chief Complaint: pain HPI Narrative PAL NICHOLAS, is a 19 F who presents with bladder pain and unable to void.Was in Triage at [facility] early and had straight cath for [...] MD; No Primary Care Physician ~ Signed [facility] assessment information available [facility] Work Phone: Evaluation note* Diagnosis Visit for screening ([facility])- Primary Unspecified screening 18 weeks gestation of ([facility]) state, incidental Encounter for supervision of high risk in second trimester, antepartum ([facility]) 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[facility]) POTS (postural orthostatic tachycardia syndrome) Tachycardia, unspecified 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 Screening for STD (sexually transmitted disease) Screening examination for venereal disease Abdominal pain during in second trimester ([facility]) Bacterial vaginosis Vaginitis and vulvovaginitis, unspecified [facility] Diagnosis Abdominal pain affecting ([facility]) Diarrhea Hypokalemia Hypopotassemia Headache Chest pain during ([facility]) Vaginal discharge during ([facility]) Dizziness Dizziness and giddiness Chronic hypertension affecting ([facility]) 19 weeks gestation of ([facility]) state, incidental Pelvic pressure in ([facility]) Other specified complication, antepartum Bacterial vaginosis- Primary Vaginitis and vulvovaginitis, unspecified 20 weeks gestation of ([facility]) state, incidental Burning with urination Dysuria Palpitations Other fatigue Weakness Other malaise and fatigue Encounter for supervision of normal first in second trimester ([facility]) Supervision of normal first [facility] Diagnosis Abdominal pain affecting ([facility]) Diarrhea Hypokalemia Hypopotassemia Headache Chest pain during ([facility]) Vaginal discharge during (HCC) Dizziness Dizziness and giddiness Chronic hypertension affecting (HCC) 19 weeks gestation of (HCC) state, incidental Pelvic pressure in (HCC) Other specified complication, antepartum POTS (postural orthostatic tachycardia syndrome)- Primary Tachycardia, unspecified Visit for screening ([facility]) Unspecified screening 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HCC) Chronic hypertension affecting ([facility]) documented in this encounter [facility] note* Diagnosis Abdominal pain affecting (HCC) Diarrhea Hypokalemia Hypopotassemia Headache Chest pain during (HCC) Vaginal discharge during (HCC) Dizziness Dizziness and giddiness Chronic hypertension affecting ([facility]) Pelvic pressure in ([facility]) Other specified complication, antepartum Dysuria- Primary documented in this encounter [facility] note* Diagnosis Diarrhea Hypokalemia Hypopotassemia Headache Chest pain during (HCC) Vaginal discharge during (HCC) Dizziness Dizziness and giddiness Pelvic pressure in ([facility]) Other specified complication, antepartum Chronic hypertension affecting (HCC) Abdominal pain affecting (HCC) 21 weeks gestation of ([facility]) state, incidental Encounter for supervision of normal first in second trimester ([facility])- Primary Supervision of normal first Vaginal discharge Leukorrhea, not specified as infective 21 weeks gestation of ([facility]) state, incidental Abdominal pain affecting ([facility]) * Assessment & Plan Note - Karina Saldaña MD - 01/20/2025 10:40 AM EDTAssociated Problem(s): 21 weeks gestation of (HCC) RTO as scheduled * Assessment & Plan Note - Karina Saldaña MD - 01/20/2025 10:40 AM EDTAssociated Problem(s): Abdominal pain affecting ([facility]) Went to ER had CT scan - no acute findings. Causes of pain reviewed with patient. - abdominal binder [facility] Diagnosis Diarrhea Hypokalemia Hypopotassemia Headache Chest pain during (HCC) Vaginal discharge during (HCC) Dizziness Dizziness and giddiness Pelvic pressure in (HCC) Other specified complication, antepartum Chronic hypertension affecting (HCC) Abdominal pain affecting (HCC) 21 weeks gestation of (HCC) state, incidental Encounter for supervision of normal first in second trimester ([facility])- Primary Supervision of normal first Vaginal discharge Leukorrhea, not specified as infective 21 weeks gestation of ([facility]) state, incidental Abdominal pain affecting (HCC) Vaginal discharge during , antepartum ([facility])- Primary * Assessment & Plan Note - Lester Phillips MD - 02/02/2025 2:28 PM EDTAssociated Problem(s): Vaginal discharge during ([facility]) Orders: UA DIP, URINE (POC) [facility]* Diagnosis Diarrhea Hypokalemia Hypopotassemia Headache Chest pain during (HCC) Vaginal discharge during (HCC) Dizziness Dizziness and giddiness Pelvic pressure in (HCC) Other specified complication, antepartum Chronic hypertension affecting (HCC) Abdominal pain affecting (HCC) 21 weeks gestation of ([facility]) state, incidental Encounter for supervision of normal first in second trimester ([facility])- Primary Supervision of normal first Vaginal discharge Leukorrhea, not specified as infective 21 weeks gestation of ([facility]) state, incidental Abdominal pain affecting ([facility]) Vaginal discharge during , antepartum ([facility])- Primary Encounter for supervision of normal first in second trimester ([facility])- Primary Supervision of normal first 24 weeks gestation of ([facility]) state, incidental Screening for diabetes mellitus Vaginal discharge during in second trimester ([facility]) documented [facility] this encounter [facility] Author Magda Aragon [facility] Note Date/Time February 02, 2025 11:38pm [facility] Medical Records Department [address] [place] [address] OB Triage Physician Note 02/02/252335 MR#: [id number] Acct: [id number] Name: PAL NICHOLAS Rep #:[id number] : 2005 19 From: Magda Aragon MD PCP: Care Physician,No Primary Status :REG CLI Y Location: [place] [address] HPI - General General Date of Admission: 02/02/25 Date of Service: 02/02/25 Chief Complaint: cramping HPI Narrative PAL NICHOLAS, is a 19 F who presents cramping. No bleeding. Some movement.Was seen in office today with normal discharge. Maternal Data Information Final AMARI: 05/31/25 Gestational age: 23 [facility] Medical History (Updated 02/02/25 @ 23:38 by [...] (1) 23 weeks gestation of : (2) Hardy Zaragoza' contraction: COMMENT: cervix closed 02/02/25 9364 <Electronically signed by Magda kumar MD> Date _ Magda Aragon MD Cosigner Signature (if applicable): Date CC: Dr. Magda Aragon MD; No Primary Care Physician ~ Signed [facility] Work Phone: History and physical note Author Ramakrishna Corley [facility] Note Date/Time February 05, 2025 12:03am [facility] Medical Records Department [address] [place] [address] OB Triage Physician Note 02/04/25 [id number] MR#: [id number] Acct: [id number] Name: PAL NICHOLAS Rep #: : 2005 19 From: Ramakrishna Corley DO PCP: Care Physician,No Primary Status :REG CLI Y Location: [address] - General General Date of Service: 02/04/25 Chief Complaint: ctx's HPI Narrative PAL NICHOLAS, is a 19 F who presents ctx's. She states she has had contractions and abdominal pain for 1-2 weeks. Went to [facility] 2 weeks agofor this and had [...] vb or lof. No constipation or diarrhea. [facility] Medical History (Updated 02/05/25 @ 00:00 [...] (1) 23 weeks gestation of : (2) Hardy Zaragoza' contraction: COMMENT: cervix closed PLAN: Cervix [...] DO; No Primary Care Physician ~ Signed [facility] Work Phone: History and physical note Author Magda Aragon [facility] Note Date/Time February 14, 2025 8:48pm [facility] Medical Records Department [address] [place] [address] OB Triage Physician Note 02/13/25 [id number] MR#: [id number] Acct: [id number] Name: PAL NICHOLAS Rep #:[id number] : 2005 19 From: Magda Aragon MD PCP: Care Physician,No Primary Status :DEP CLI Y Location: [facility] HPI - General General Date of Service: 02/13/25 Chief Complaint: pain HPI Narrative PAL NICHOLAS, is a 19 F who presents with bladder pain and unable to void.Was in Triage at [facility] early and had straight cath for [...] to urogyn 02/14/252047 <Electronically signed by Magda kumar MD> Date _ Magda Aragon MD Cosigner Signature (if applicable): Date CC: Dr. Magda Aragon MD; No Primary Care Physician ~ Signed [facility] Work Phone: Reason for referral (narrative)No reason for referral information availableWParkview Health Work Phone: Chief Complaint and Reason for Visit Chief Complaint Admit Date female pain, December 21, 2024 8: 25pm Chief Complaint Admit Date female pain, December 21, 2024 8: 25pm R/O LABOR February 02, 2025 8:50pm Reason for Visit Admit Date 23 weeks [facility] of [facility] 2024 8:50pm Angel Zaragoza' contraction January 8:50pm Chief Complaint Admit Date female pain, December 21, 2024 8: 25pm R/O LABOR February 02, 2025 8:50pm R/O LABOR February 04, 2025 10:13pm Reason for Visit Admit Date 23 weeks gestation of [place] r 2024 8:50pm Hardy Zaragoza' contraction January 8:50pm 23 weeks gestation of [facility] 2024 10:13pm Hardy Zaragoza' contraction January 10:13pm Dysuria February 04, 2025 10:13pm History of UTI February 04, 2025 10:13pm Suprapubic pain February 04, 2025 10:13pm Chief Complaint Admit Date female pain, December 21, 2024 8: 25pm R/O LABOR February 02, 2025 8:50pm R/O LABOR February 04, 2025 10:13pm R/O LABOR February 13, 2025 9:49pm Reason for Visit Admit Date 23 weeks gestation of Bárbara herron 2024 8:50pm Angel Zaragoza' contraction January 8:50pm 23 weeks gestation of Bár[place] 2024 10:13pm Angel Zaragoza' contraction January 10:13pm [...] 23 weeks gestation of Bár[place] 2024 8:50pm Hardy Zaragoza' contraction January 8:50pm 23 weeks gestation of [place]ár[place] 2024 10:13pm Angel Zaragoza' contraction January 10:13pm Dysuria February 04, 2025 10:13pm History of UTI February 04, 2025 10:13pm Suprapubic pain February 04, 2025 10:13pm Dysuria February 13, 2025 9:49pm Suprapubic pain February 13, 2025 9:49pm Threatened labor February 23, 2025 8:00pm Advance Directives No Advanced Directives Records Found Advance Directive Response Recorded Date/ Time Do you have a Healthcare Power of Help Desk Associate? No December 21, 2024 9:54pm Summary Purpose [...] or prosecute any alcohol or drug abuse patient.[facility] the event this information is protected by the Federal Confidentiality of Alcohol and Drug Abuse Patient Records regulations: The Federal rules restrict any use of the information to criminally investigate or prosecute any alcohol or drug abuse patient.[facility] Hospital[facility] the event this information is protected by the Federal Confidentiality of Alcohol and Drug Abuse Patient Records regulations: The Federal rules restrict any use of the information to criminally investigate or prosecute any alcohol or drug abuse patient.[facility] the event this information is protected by the Federal Confidentiality of Alcohol and Drug Abuse Patient Records regulations: The Federal rules restrict any use of the information to criminally investigate or prosecute any alcohol or drug abuse patient.[facility] HospitalIn the event this information is protected by the Federal Confidentiality of Alcohol and Drug Abuse Patient Records regulations: The Federal rules restrict any use of the information to criminally investigate or prosecute any alcohol or drug abuse patient.[facility] HospitalIn the event this information is protected by the Federal Confidentiality of Alcohol and Drug Abuse Patient Records regulations: The Federal rules restrict any use of the information to criminally investigate or prosecute any alcohol or drug abuse patient.[facility] HospitalIn the event this information is protected by the Federal Confidentiality of Alcohol and Drug Abuse Patient Records regulations: The Federal rules restrict any use of the information to criminally investigate or prosecute any alcohol or drug abuse patient.[facility] HospitalIn the event this information is protected by the Federal Confidentiality of Alcohol and Drug Abuse Patient Records regulations: The Federal rules restrict any use of the information to criminally investigate or prosecute any alcohol or drug abuse patient.[facility] HospitalIn the event this information is protected by the Federal Confidentiality of Alcohol and Drug Abuse Patient Records regulations: The Federal rules restrict any use of the information to criminally investigate or prosecute any alcohol or drug abuse patient.[facility] HospitalIn the event this information is protected by the Federal Confidentiality of Alcohol and Drug Abuse Patient Records regulations: The Federal rules restrict any use of the information to criminally investigate or prosecute any alcohol or drug abuse patient.[facility] HospitalIn the event this information is protected by the Federal Confidentiality of Alcohol and Drug Abuse Patient Records regulations: The Federal rules restrict any use of the information to criminally investigate or prosecute any alcohol or drug abuse patient.[facility] HospitalIn the event this information is protected by the Federal Confidentiality of Alcohol and Drug Abuse Patient Records regulations: The Federal rules restrict any use of the information to criminally investigate or prosecute any alcohol or drug abuse patient.[facility] HospitalIn the event this information is protected by the Federal Confidentiality of Alcohol and Drug Abuse Patient Records regulations: The Federal rules restrict any use of the information to criminally investigate or prosecute any alcohol or drug abuse patient.[facility] HospitalIn the event this information is protected by the Federal Confidentiality of Alcohol and Drug Abuse Patient Records regulations: The Federal rules restrict any use of the information to criminally investigate or prosecute any alcohol or drug abuse patient.[facility] HospitalIn the event this information is protected by the Federal Confidentiality of Alcohol and Drug Abuse Patient Records regulations: The Federal rules restrict any use of the information to criminally investigate or prosecute any alcohol or drug abuse patient.[facility] HospitalIn the event this information is protected by the Federal Confidentiality of Alcohol and Drug Abuse Patient Records regulations: The Federal rules restrict any use of the information to criminally investigate or prosecute any alcohol or drug abuse patient.[facility] HospitalIn the event this information is protected by the Federal Confidentiality of Alcohol and Drug Abuse Patient Records regulations: The Federal rules restrict any use of the information to criminally investigate or prosecute any alcohol or drug abuse patient.[facility] HospitalIn the event this information is protected by the Federal Confidentiality of Alcohol and Drug Abuse Patient Records regulations: The Federal rules restrict any use of the information to criminally investigate or prosecute any alcohol or drug abuse patient.[facility] HospitalIn the event this information is protected by the Federal Confidentiality of Alcohol and Drug Abuse Patient Records regulations: The Federal rules restrict any use of the information to criminally investigate or prosecute any alcohol or drug abuse patient.[facility] Reason for Visit (unrecogniz ed section and content) Reason Comments Care Coordination Reason Comments OB Pelvic Pain Reason Comments Received Outside Medical Records Reason Comments Care Reason Comments OB Pain Reason Comments OB Vaginal Pressure Reason Onset Date Comments Care 01/11/2025 Reason Comments US Specialty Diagnoses / Procedures Referred By Contac t [facility] To [facility] Diagnoses Visit for screening (HCC) Procedures OBSTETRIC ULTRASOUND WHI US PREG UTERUS AFTER 1ST TRIMEST GESTATION Lynnette Tapia APRN.CN [address] [place] [address] Phone: tel: fax: [facility] [place] [address] Referral ID Status Reason Start Date Expiration Date V isits Requested Visits Authorized [id number] Closed Auto-Generate d Referral 12/29/2024 05/26/2025 1 [...] section and content) DATE CREATED AUTHOR 03/09/2025 [facility] DATE CREATED AUTHOR AUTHOR'S ORGANIZ ATION 03/30/2025 [facility] DATE CREATED AUTHOR AUTHOR'S ORGANIZ ATION 03/30/2025 [facility] FOR RECORDS PERTAINING TO PATIENTS WHO [...] BE BASED ON THE PRIMARY CLINICAL RECORDS. [employer] provides no warranty or guarantee of the accuracy or completeness of information in this document.
[2025-04-01 17:09] LABS: Color, Urine Straw (Yellow); Glucose, Dipstick 100 mg/dl (Normal); Ketone-Dipstick Negative (Negative); Leukocyte Esterase-Dipstick Negative /ul (Negative); Nitrite-Dipstick Negative (Negative); Occult Blood-Urine 10 /ul (Negative); Protein-Dipstick Negative (Negative); Specific Gravity, Urine 1.015 (1.002-1.030); Urine Bilirubin Dipstick Negative (Negative)
[2025-04-01 17:54] LABS: Hematocrit 35.7 % (37-47); Hemoglobin 12.1 g/dL (12.0-15.0); Mean Corp Hgb Conc 33.9 g/dL (32-36); Mean Corpuscular Volume 91.8 fL (81-99); Mean Platelet Vol. 9.9 fl (6.2-12.0); Platelet Count 259 K/mm3 (150-450); RBC Distribution Width CV 13.0 % (11.6-14.6); RBC Distribution Width SD 42.2 fl (35.1-43.9); Red Blood Count 3.89 M/mm3 (4.2-5.4); White Blood Count 11.2 K/mm3 (4.4-11.0)
[2025-04-01 18:02] LABS: Creatinine, Urine (random) 66.50 mg/dL (28.00-217.00); Protein, Urine (Random) 10.4 mg/dL (0.0-12.0); Protein:Creat Ratio 156 mg/g CRE (0-200)
[2025-04-01 18:03] LABS: AST(SGOT) 15 U/L (<=31); Alanine Aminotransfer ALT/SGPT 11 U/L (<=34); Estimated Creatinine Clearance 198.07 ml/min (50-250); Uric Acid 3.4 mg/dL (2.6-6.0)
--- NOTE | 2025-04-01 18:09 | US_ITS ---
PROCEDURE: OB LIMITED WITH BIOMETRICS 04/01/2025 REASON FOR EXAM: VARIABLE DECELS TECHNIQUE: Procedure Code: [id number] Modality: US Procedure: OB LIMITED WITH BIOMETRICS COMPARISON: 03/17/2025. FINDINGS POSITION: Cephalic CARDIAC ACTIVITY: 148 bpm MAXIMUM VERTICAL POCKET: 3.9 cm AMNIOTIC FLUID INDEX (RAJ): 12.4 cm PLACENTA: Fundal grade 1 within normal limits Not low lying CERVIX: Not visualized CERVICAL OS: Closed ADNEXA: Visualized BIOMETRY: BPD 8.0 cm 32 weeks 0 days 34 percent OFD 10.1 cm 32 weeks 2 days 36 percent HC 29.3 cm 32 weeks 0 days 35 percent AC 28.9 cm 32 weeks 6 days 86 percent FL 5.6 cm 29 weeks 3 days 3 percent RATIOS: FL over AC 19 percent FL over BPD 70 percent FL over HC 19 percent Cephalic index 86 percent HC over AC 1.01 ESTIMATED WEIGHT: 1842 grams plus or minus 276 grams 51 percent GESTATIONAL AGE BY CURRENT ULTRASOUND: 31 weeks 4 days ESTIMATED DATE OF DELIVERY BY CURRENT ULTRASOUND: 05/30/2025 GESTATIONAL AGE BY LMP: 31 weeks 3 days ESTIMATED DATE OF DELIVERY BY LMP: 05/31/2025 US/OB Limited With Biometrics IMPRESSION: Single live intrauterine gestation in cephalic presentation. Reading Location: [id number]
--- NOTE | 2025-04-01 18:20 | US_ITS ---
PROCEDURE: OB BIOPHYSICAL PROF W/O NST 04/01/2025 REASON FOR EXAM: VARIABLE DECELERATIONS TECHNIQUE: Procedure Code: [id number] Modality: US Procedure: OB BIOPHYSICAL PROF W/O NST COMPARISON: 03/17/2025. FINDINGS Single live intrauterine gestation in cephalic presentation. heart rate 148 bpm. Amniotic fluid volume within normal limits with largest pocket measuring 4.3 to 4.4 cm and RAJ 11.26 cm. Placenta fundal and anterior not low lying with a 2.5 x 1.6 cm hypoechoic region lacking internal vascularity likely representing a placental lombardi or small resolving subchorionic hematoma. biophysical profile score 8 out of 8 indicating normal well-being. US/OB Biophysical Prof W/O NST IMPRESSION: Single live intrauterine in cephalic presentation. Normal biophysical profile score of 8 out of 8. Amniotic fluid volume within normal limits. Fundal and anterior placenta not low lying. Small 2.5 x 1.6 cm hypoechoic area within the anterior placenta without interna l vascularity likely represents a placental lombardi or resolving subchorionic hemorrhage. No sonographic evidence of acute placental abruption. Reading Location: [id number]
--- NOTE | 2025-04-01 20:50 | OB.TRI.NOTE ---
HPI - General General Date of Admission: 04/01/25 Date of Service: 04/01/25 Chief Complaint: Headache HPI Narrative JOSE NICHOLAS, is a 19 F who presents headache and Home BP that was elevate. All BPs here are normal. PIH labs normal. Pr/cr 156. Took Tylenol at home which usually works. Initially with variable on NST. BPP and growth down and 8/8 and 51% Normal RAJ. Variables resolved. Reglan and Benadryl for headache but seems to be a tension headache. Discussed methods to relieve tension. Has OB appointment tomorrow. Maternal Data Information AMARI Calculator Estimated Delivery Date Method Current WG Current Estimate 05/31/25 Manual 31w 4d Final AMARI: 05/31/25 Gestational age: 31+4 PFSH PFSH Medical History POTS (postural orthostatic tachycardia syndrome) Myles-Danlos syndrome Home Medications Medication Instructions Recorded Last Taken Type aspirin 81 mg capsule 81 mg PO DAILY 02/02/25 03/16/25 History vit no.95-ferrous 1 tab PO DAILY 02/02/25 03/16/25 History fumarate 28 mg-folic acid 800 mcg tablet () Allergy/AdvReac Type Severity Reaction Status Date / Time blueberry Allergy Hives Verified 03/29/25 19:19 Social History Smoking Status: Never smoker History 1 Elective abortions Hx Para 0 Spontaneous abortions Hx # Term Pregnancies Ectopic pregnancies Hx # Pregnancies Multiple births # of living children Physical Exam Const alert and oriented x3 General Appearance: cooperative and comfortable HEENT normocephalic and head/scalp atraumatic Extremity normal to inspection and full ROM Neuro oriented x3 and CN's II-XII intact bilaterally Psych mental status grossly normal NST FHR Rate Baby A Variability:: Moderate Accelerations:: 15 x 15 Decelerations:: Variable (resolved) NST Reactive:: Yes Uterine Activity:: irregular Assessment & Plan (1) 31 weeks gestation of : (2) Headache in : QUALIFIERS: Trimester: third trimester Qualified Code(s): O26.893 - Other specified related conditions, third trimester; R51.9 - Headache, unspecified PLAN: Plan Headache mildly improvement likely tension in origin. Relief measures discussed
== END 2025-04-01 21:52 | disposition home or self-care (01) ==
LOC: WPOUT 16:15 → WP 16:16
PROVIDERS: Referring Provider Obstetrics & Gynecology; Visit Provider Obstetrics & Gynecology
DX: O99.891 Other specified diseases and conditions complicating pregnancy (principal); R51.9 Headache, unspecified; Z3A.31 31 weeks gestation of pregnancy
CPT/HCPCS: 36415; 59025; 59050; 76816; 76819; 81002; 82565; 82570; 84156; 84450; 84460; 84550; 85027; 99221; G0378

== ENCOUNTER 2025-04-06 02:30 | Outpatient (CLI) | payer BC, SELFPAY ==
--- OUTSIDE RECORDS SUMMARY | 2025-04-06 02:35 | XMS RPT_ITS | CCD ---
Author Organization [facility] Care Team Providers Care Senior Database Programmer Name Role Phone Unavailable Primary Care Provider Unavailabl e Dr. Aftab Mendoza DO Emergency Provider [phone] Care Physician, No Primary Primary Care Provider Unavailable Dr. Aftab eMndoza DO Attending Provider Mahesh WILLIS, Dr. Man [...] FOREMAN Attending Unavailable MARK FOREMAN Admitting Unavailable Dr. Aftab Mendoza DO Attending Physician Dr. Aftab Mendoza DO Emergency Department Physic devi Care Physician, No Primary Primary Care Physicia n Unavailable Mahesh WILLIS, Dr. Man Attending Physician Mahesh WILLIS, Dr. Man Referring Provider Dr. Ramakrishna Corley DO Referring Provider Willie CNM, Lynnette Attending Physician Joaquim CNM, Patsy Attending Physician Joaquim CNM, Patsy Referring Provider Eugene Morejon MD Emergency Department Physician LYNNETTE TAPIA Attending Unavailable PLOTTS, LYNNETTE Referring Unavailable WISWELL, RAMAKRISHNA Attending Unavailable PLOTTS, LYNNETTE Referring Unavailable PLOTTS, LYNNETTE Referring Unavailable PLOTTS, LYNNETTE Referring Unavailable PLOTTS, LYNNETTE Attending Unavailable PLOTTS, LYNNETTE Referring Unavailable WISWELL, RAMAKRISHNA Attending Unavailable PLOTTS, LYNNETTE Referring Unavailable LESTER PHILLIPS Attending Unavailable ALEXA DICKSON Referring Unavailable CLAUDIA, KARI Jimenez Attending Unavailable LESTER PHILLIPS Attending Unavailable KARINA SALDAÑA Attending Unavail able WISWELL, RAMAKRISHNA Referring Unavailable KARINA ADDISON Attending Unavailable LYNNETTE TAPIA Attending Unavailable LYNNETTE TAPIA Attending Unavailable Care Physician, No Primary Primary Care Unava ilable Eugene Morejon Attending Unavailable Magda Aragon Attending Unavailable Magda Aragon Referring Unavailable Care Physician, No Primary Primary Care Unava ilable Magda Aragon Attending Unavailable Magda Aragon Referring Unavailable Care Physician, No Primary Primary Care Unava ilable Joaquim Patsy Referring Unavailable Patsy March Attending Unavailable Care Physician, No Primary Primary Care Unava ilable Joaquim Patsy Referring Unavailable Machelle Marchica Attending Unavailable Care Physician, No Primary Primary Care Unava ilable Care Physician, No Primary Primary Care Unava ilable Magda Aragon Referring Unavailable Magda Aragon Attending Unavailable Care Physician, No Primary Primary Care Unava ilable Magda Aragon Attending Unavailable Magda Aragon Referring Unavailable Patsy March Referring Unavailable Care Physician, No Primary Primary Care Unava ilable Pasty March Attending Unavailable Lynnette Tapia Attending Unavailable Ramakrishna Corley Referring Unavailable Care Physician, No Primary Primary Care Unava ilable Care Physician, No Primary Primary Care Unava ilable Aftab Mendoza Attending Unavailable Allergies Allergy Classification Reported Allergen(s) Allergy Type Date of Onset Reaction(s) Facility (1 source) [facility] Allergy to substance 03-29-2025 [facility] (1 source) [facility] Drug allergy (disorder) 03-29-2025 Repository Medications Current Medications Medication Drug Class(es) Dates Sig (Normalized) Sig (Original) aspirin 81 mg oral tablet (20 sources) Platelet Aggregation Inhibitor, Nonsteroidal Anti-inflammatory Drug Start: 02-02-2025 take 1 capsule by mouth once daily Start: 12-28-2024 take 1 tablet by karl once daily aspirin, enteric coated (ECOTRIN LOW STRENGTH) 81 mg EC tablet Indications: Visit for screening ([facility]) Take 1 tablet by mouth once daily. 90 tablet 3 12/28/2024 Active diphenhydrAMINE hydrochloride 25 mg oral capsule (1 source) Histamine-1 Receptor Antagonist Start: 03-29-2025 End: 03-29-2025 Diphenhydramine Hcl (Allergy (Diphenhydramine)) 25 mg capsule Discontinued 25 mg PO .PRN March 29, 2025 12:00am March 29, 2025 7:35pm doxylamine succinate 25 mg oral tablet (16 [...] () 28 mg iron- 800 mcg tablet (6 sources) Start: 02-02-2025 Start: 02-02-2025 Pnv No.95-Ferr ous Fumarate-Fa () [...] / nitrofurantoin, monohydrate 75 mg oral capsule (10 sources) Nitrofuran Antibacterial Start: 02-05-2025 End: 02-13-2025 take 1 capsule by mouth twice daily at mealtime Nitrofurantoin Monohyd/M-Cryst (Macrobid) 100 mg capsule Discontinued 100 mg PO TWICE A DAY 13 7 0 February 04, 2025 11:00pm February 13, 2025 9:14pm must administer with a meal/food Start: 01-14-2025 End: 01-21-2025 take 1 capsule by mouth twice daily nitrofurantoin monohydrate and macrocrystal (MACROBID) 100 mg capsule Indications: Dysuria Take 1 capsule by mouth two times a day for 7 days. 14 capsule 01/14/2025 01/21/2025 Active Start: 12-03-2024 take 1 capsule by mo [facility] every twelve hours nitrofurantoin monohydrate and macrocrystal (MACROBID) 100 mg capsule Take 1 capsule every 12 hours by oral route for 7 days. 12/03/2024 Active Problems Active Problems Problem Classification Problem Date Documented Da te Episodic/Chronic Abdominal pain (16 sources) Suprapubic pain; Translations: [Pelvic and perineal pain] Onset: 01-06-2025 02-05-2025 Episodic Cardiac dysrhythmias (20 sources) Postural orthostatic tachycardia syndrome ; Translations: [POTS (postural orthostatic tachycardia syndrome)] 12-28-2024 Chronic Cardiac dysrhythmias (5 sources) Palpitations; Translations: [Palpitations] Onset: 01-11-2025 01-11-2025 Episodic Conditions associated with dizziness or vertigo (15 sources) Dizziness; Translations: [Dizziness and giddiness] Onset: 01-05-2025 01-05-2025 Episodic Diabetes or abnormal glucose tolerance complicating ; childbirth; or the puerperium (1 source) Abnormal glucose complicating ; Translations: [Abnormal glucose complicating (HCC)] Onset: 03-11-2025 Episodic Early or threatened labor (20 sources) Issaquena Zaragoza contractions; Translations: [False labor, unspecified] Onset: [...] Onset: 03-29-2025 12-28-2024 Episodic Other complications of (7 sources) Complication of , childbirth and/or the puerperium; Translations: [Other specified related conditions, unspecified trimester] 12-21-2024 Episodic Other complications of (20 sources) Abdominal pain in ; Translations: [Other specified related conditions, second trimester] Onset: 12-22-2024 12-22-2024 Episodic Other complications of (17 sources) High risk ; Translations: [Supervision of high risk , unspecified, second trimester] Onset: 12-28-2024 12-28-2024 Episodic Other complications of (15 sources) Chest pain; Translations: [Chest pain during [...] (HCC)] Onset: 01-06-2025 Episodic Other complications of (2 sources) Pain in symphysis pubis in ; Translations: [Pain in symphysis pubis during ] 03-29-2025 Episodic Other complications of (4 sources) Reduced movement; Translations: [Decreased movements, unspecified trimester, not applicable or unspecified] 03-17-2025 Episodic Other complications of (1 source) Supervision of high risk , unspecified, third trimester; Translations: [Supervision of high risk in third trimester (HCC)] Onset: 03-26-2025 Episodic Other complications of (1 source) Decreased movements, third trimester, not applicable or unspecified; Translations: [Decreased movements, third trimester, not applicable or unspecified] Onset: 03-29-2025 Episodic Other complications of (1 source) Decreased movements, unspecified trimester, not applicable or unspecified; Translations: [Decreased movements, unspecified trimester, not applicable or unspecified] Onset: 03-15-2025 Episodic Other congenital anomalies (19 sources) Myles-Danlos syndrome; 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, unspecified] [...] 01-05-2025 01-05-2025 Episodic Other lower respiratory disease (2 sources) Dyspnea; Translations: [Shortness of breath] 03-29-2025 Episodic Other lower respiratory disease (1 source) Shortness of breath; Translations: [Shortness of breath] Onset: 03-29-2025 Episodic Other and delivery including normal (11 sources) ; Translations: [Encounter for supervision of normal , unspecified, unspecified trimester] Onset: 03-11-2025 12-21-2024 Episodic Other screening for suspected conditions (not mental disorders or infectious disease) (3 sources) D-dimer above reference range; Translations: [Other specified abnormal findings of blood chemistry] Onset: 01-11-2025 03-29-2025 Episodic Residual codes; unclassified (2 sources) Gestation [...] Onset: 01-18-2025 01-18-2025 Episodic Residual codes; unclassified (17 sources) Gestation period, 23 weeks; Translations: [23 weeks gestation of ] 02-02-2025 Episodic Residual codes; unclassified (1 source) Gestation period, 24 weeks; Translations: [24 weeks gestation of ] 02-08-2025 Episodic Residual codes; unclassified (2 sources) Gestation period, 29 weeks; Translations: [29 weeks gestation of ] 03-17-2025 Episodic Residual codes; unclassified (2 sources) Gestation period, 31 weeks; Translations: [31 weeks gestation of ] 03-29-2025 Episodic Residual codes; unclassified (1 source) [...] 01-11-2025 Episodic Residual codes; unclassified (1 source) 31 weeks gestation of ; Translations: [31 weeks gestation of ] Onset: 03-29-2025 Episodic Unclassified (2 sources) Patient encounter status 12-28-2024 Unclassified (16 sources) [facility] Education - COMMON Onset: 12-28-2024 12-28-2024 Unclassified (16 sources) Education - [place] Onset: 12-28-2024 12-28-2024 Unclassified (2 sources) POTS (postural orthostatic tachycardia syndrome); Translations: [POTS (postural orthostatic tachycardia syndrome)] Onset: 12-28-2024 Unclassified (1 source) Myles-Danlos syndrome, unspecified; 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, [address] Alanine Aminotransferas (SGP T)on 04-01-2025 ALT [Catalytic activity/Vol] 11 U/L Normal <=34 Comment on above: Performed By: #### L 300.8000, L501.4021, L100.0100 #### Laboratory [address] [place], [address] Bilirubin Test strip Ql (U)O rdered By: Magda Aragon on 04-01-2025 Bilirubin Ql (U) Negative Negative CBC-Complete Blood Cnt No Di ffon 04-01-2025 Erythrocyte distribution width (RBC) [Ratio] 13.0 % Normal 11.6-14.6 Comment on above: Performed By: #### L 300.8000, L501.4021, L100.0100 #### Laboratory [address] [place], [address] Hematocrit (Bld) [Volume fraction] 35.7 % Low 37-47 Comment on above: Performed By: #### L 300.8000, L501.4021, L100.0100 #### Laboratory [address] [place], [address] Hemoglobin (Bld) [Mass/Vol] 12.1 g/dL Normal 12.0-15.0 Comment on above: Performed By: #### L 300.8000, L501.4021, L100.0100 #### Laboratory [address] [place], [address] MCH (RBC) [Entitic mass] 31.1 pg Normal 27.0-32.0 Comment on above: Performed By: #### L 300.8000, L501.4021, L100.0100 #### Laboratory [address] [place], [address] MCHC (RBC) [Mass/Vol] 33.9 g/dL Normal 32-36 [facility] Comment on above: Performed By: #### L 300.8000, L501.4021, L100.0100 #### Laboratory [address] [place], [address] MCV (RBC) [Entitic vol] 91.8 fL Normal 81-99 [facility] Comment on above: Performed By: #### L 300.8000, L501.4021, L100.0100 #### Laboratory [address] [place], [address] Platelet mean volume (Bld) [Entitic vol] 9.9 fL Normal 6.2-12.0 Comment on above: Performed By: #### L 300.8000, L501.4021, L100.0100 #### Laboratory [address] [place], [address] Platelets (Bld) [#/Vol] 259 10*3/uL Normal 150-450 Comment on above: Performed By: #### L 300.8000, L501.4021, L100.0100 #### Laboratory [address] [place], [address] RBC (Bld) [#/Vol] 3.89 10*6/uL Low 4.2-5.4 [facility] Comment on above: Performed By: #### L 300.8000, L501.4021, L100.0100 #### Laboratory [address] [place], [address] RDW SD 42.2 fl Normal 35.1-43.9 Comment on above: Performed By: #### L 300.8000, L501.4021, L100.0100 #### Laboratory [address] [place], [address] WBC (Bld) [#/Vol] 11.2 10*3/uL High 4.4-11.0 [facility] Comment on above: Performed By: #### L 300.8000, L501.4021, L100.0100 #### Laboratory [address] [place], [address] [facility] PAL NICHOLAS ([id number]) 3 F Date Time Provider Department 04/01/25 MAGDA ARAGON During your visit today, we recorded the following information about you: Isaura Pereira RN 04/01/2025 3:58 PM Signed 31w3d Called in c/o headache all day that won't go away, BP at home was 147/92 and decreased movement. She was last in [facility] 2 days ago and scheduled tomorrow for BP check. Advised to go to [facility] for evaluation. Chart nurse at [facility] 3[facility] notified. Isaura Pereira RN Allergies As of Date: 04/01/2025 (No Known Allergies) Date Reviewed: 03/26/2025 Reviewed by: Lili Harry LPN - Fully Assessed Reason for Visit: OB headache [Other] Prescriptions as of 04/01/2025 - famotidine (PEPCID) 20 mg tablet Take [...] by mouth. Problem List As Of Date 04/01/2025 Noted Resolved Bacterial vaginosis [N76.0, B96.89] 12/22/2024 [...] 03/11/2025 Encounter Status:Closed by ISAURA PEREIRA on 04/01/[address] [facility] Erythrocyte distribution wid th ratioOrdered By: Magda Aragon on 04-01-2025 Erythrocyte distribution width (RBC) [Ratio] 13.0 % 11.6-14.6 Erythrocyte distribution wid th standard deviationOrdered By: Magda Aragon on 04-01-2025 Erythrocyte distribution width (RBC) [Ratio] 42.2 fl 35.1-43.9 Hematocrit Auto (Bld) [Volum e fraction]Ordered By: Magda Aragon on 04-01-2025 Hematocrit (Bld) [Volume fraction] 35.7 % Low 37-47 Hemoglobin measurementOrdere d By: Magda Aragon on 04-01-2025 Hemoglobin (Bld) [Mass/Vol] 12.1 g/dL 12.0-15.0 Ketones Test strip Ql (U)Ord ered By: Magda Aragon on 04-01-2025 Ketones Ql (U) Negative Negative MCV (mean corpuscular volume ) determinationOrdered By: Magda Aragon on 04-01-2025 MCV (RBC) [Entitic vol] 91.8 fL 81-99 [facility] Mean corpuscular hemoglobin (MCH) determinationOrdered By: Magda Aragon on 04-01-2025 MCH (RBC) [Entitic mass] 31.1 pg 27.0-32.0 Mean corpuscular hemoglobin concentration (MCHC) determinationOrdered By: Magda Aragon on 04-01-2025 MCHC (RBC) [Mass/Vol] 33.9 g/dL 32-36 [facility] Mean platelet volume determi nationOrdered By: Magda Aragon on 04-01-2025 Platelet mean volume (Bld) [Entitic vol] 9.9 fL 6.2-12.0 Nitrite Test strip Ql (U)Ord ered By: Magda Aragon on 04-01-2025 Nitrite Ql (U) Negative Negative OB Biophysical Prof W/O NSTo n 04-01-2025 OB Biophysical Prof W/O NST [facility] Imaging Services [address] [place] [address] OB Biophysical Prof W/O NST MR#: [id number] Acct: [id number] Name: PAL NICHOLAS Rep #: [id number] : 2005 F 19 From: Gamaliel Jacobs MD PCP: Care Physician,No Primary Status: REG CLI Study: OB Biophysical Prof W/O NST Date of Exam: 11/18 Exam# [id number] Ordering Dr: Magda Aragon MD PROCEDURE: OB BIOPHYSICAL PROF W/O NST 04/01/2025 REASON FOR EXAM: VARIABLE DECELERATIONS TECHNIQUE: Procedure Code: USBIOWO Modality: US Procedure: OB BIOPHYSICAL PROF W/O NST COMPARISON: 03/17/2025. FINDINGS Single live intrauterine gestation in cephalic presentation. heart rate 148 bpm. Amniotic fluid volume within normal limits with largest pocket measuring 4.3 to 4.4 cm and RAJ 11.26 cm. Placenta fundal and anterior not low lying with a 2.5 x 1.6 cm hypoechoic region lacking internal vascularity likely representing a placental lombardi or small resolving subchorionic hematoma. biophysical profile score 8 out of 8 indicating normal well-being. US/OB Biophysical Prof W/O NST IMPRESSION: Single live intrauterine in cephalic presentation. Normal biophysical profile score of 8 out of 8. Amniotic fluid volume within normal limits. Fundal and anterior placenta not low lying. Small 2.5 x 1.6 cm hypoechoic area within the anterior placenta without internal vascularity likely represents a placental lombardi or resolving subchorionic hemorrhage. No sonographic evidence of acute placental abruption. Reading Location: [id number] CC: Dr. Magda Aragon MD; No Primary Care Physician Tree Specialist: Signed Normal OB Limited With Biometricson 04-01-2025 OB Limited With Biometrics [facility] Imaging Services [address] [place] [address] OB Limited With Biometrics MR#: [id number] Acct: [id number] Name: PAL NICHOLAS Rep #: [id number] : 2005 F 19 From: Gamaliel Jacobs MD PCP: Care Physician,No Primary Status: REG CLI Study: OB Limited With Biometrics Date of Exam: 04/01 Exam# [id number] Ordering Dr: Magda Aragon MD PROCEDURE: OB LIMITED WITH BIOMETRICS 04/01/2025 REASON FOR EXAM: VARIABLE DECELS TECHNIQUE: Procedure Code: USOBGROWTH Modality: US Procedure: OB LIMITED WITH BIOMETRICS COMPARISON: 03/17/2025. FINDINGS POSITION: Cephalic CARDIAC ACTIVITY: 148 bpm MAXIMUM VERTICAL POCKET: 3.9 cm AMNIOTIC FLUID INDEX (RAJ): 12.4 cm PLACENTA: Fundal grade 1 within normal limits Not low lying CERVIX: Not visualized CERVICAL OS: Closed ADNEXA: Visualized BIOMETRY: BPD 8.0 cm 32 weeks 0 days 34 percent OFD 10.1 cm 32 weeks 2 days 36 percent HC 29.3 cm 32 weeks 0 days 35 percent AC 28.9 cm 32 weeks 6 days 86 percent FL 5.6 cm 29 weeks 3 days 3 percent RATIOS: FL over AC 19 percent FL over BPD 70 percent FL over HC 19 percent Cephalic index 86 percent HC over AC 1.01 ESTIMATED WEIGHT: 1842 grams plus or minus 276 grams 51 percent GESTATIONAL AGE BY CURRENT ULTRASOUND: 31 weeks 4 days ESTIMATED DATE OF DELIVERY BY CURRENT ULTRASOUND: 05/30/2025 GESTATIONAL AGE BY LMP: 31 weeks 3 days ESTIMATED DATE OF DELIVERY BY LMP: 05/31/2025 US/OB Limited With Biometrics IMPRESSION: Single live intrauterine gestation in cephalic presentation. Reading Location: [id number] CC: Dr. Magda Aragon MD; No Primary Care Physician Tree Specialist: Signed Normal OB Triage Physician Noteon 1 06-01-2024 OB Triage Physician Note [facility] Medical Records Department [address] [place] [address] OB Triage Physician Note 04/01/252049 MR#: [id number] Acct: [id number] Name: PAL NICHOLAS Rep #: [id number] : 2005 19 From: Magda Aragon MD PCP: Care Physician,No Primary Status:DEP CLI Y Location: [facility] HPI - General General Date of Admission: 04/01/25 Date of Service: 04/01/25 Chief Complaint: Headache HPI Narrative PAL NICHOLAS, is a 19 F who presents headache and Home BP that was elevate. All BPs here are normal. PIH labs normal. Pr/cr 156. Took Tylenol at home which usually works. Initially with variable on NST. BPP and growth down and 8/8 and 51% Normal RAJ. Variables resolved. Reglan and Benadryl for headache but seems to be a tension headache. Discussed methods to relieve tension. Has OB appointment tomorrow. Maternal Data Information AMARI Calculator Estimated Delivery Date Method Current WG Current Estimate 05/31/25 Manual 31w 4d Final AMARI: 05/31/25 Gestational age: 31+4 PFSH PFSH Medical History POTS (postural orthostatic tachycardia syndrome) [...] 19:19 Social History Smoking Status: Never smoker History 1 Elective abortions Hx Para 0 Spontaneous abortions Hx # Term Pregnancies Ectopic pregnancies Hx # Pregnancies Multiple births # of living children Physical Exam Const alert and oriented x3 General Appearance: cooperative and comfortable HEENT normocephalic and head/scalp atraumatic Extremity normal to inspection and full ROM Neuro oriented x3 and CN's II-XII intact bilaterally Psych mental status grossly normal NST FHR Rate Baby A Variability:: Moderate Accelerations:: 15 x 15 Decelerations:: Variable (resolved) NST Reactive:: Yes Uterine Activity:: irregular Assessment Plan (1) 31 weeks gestation of : (2) Headache in : QUALIFIERS: Trimester: third trimester Qualified Code(s): O26.893 - Other specified related conditions, third trimester; R51.9 - Headache, unspecified PLAN: Plan Headache mildly improvement likely tension in origin. Relief measures discussed 04/02/25630 Date Magda Aragon MD Cosigner Signature (if applicable): Date __ CC: Dr. Magda Aragon MD; No Primary Care Physician Signed Normal Platelet countOrdered By: William Aragon on 04-01-2025 Platelets (Bld) [#/Vol] 259 10*3/uL 150-450 Protein Test strip Ql (U)Ord ered By: Magda Aragon on 04-01-2025 Protein Ql (U) Negative Negative Protein+Creatinine Ratio,Uri neon 04-01-2025 PROT:CRE RATIO 156 mg/g CRE Normal 0-200 Comment on above: Performed By: #### L 300.8000, L501.4021, L100.0100 #### Laboratory [address] [place], [address] Protein (U) [Mass/Vol] 10.4 mg/dL Normal 0.0-12.0 [facility] Comment on above: Performed By: #### L 300.8000, L501.4021, L100.0100 #### Laboratory [address] [place], [address] UR CREAT 66.50 mg/dL Normal 28.00-217.00 Comment on above: Performed By: #### L 300.8000, L501.4021, L100.0100 #### Laboratory [address] [place], [address] RBC Auto (Bld) [#/Vol]Ordere d By: Magda Aragon on 04-01-2025 RBC (Bld) [#/Vol] 3.89 10*6/uL Low 4.2-5.4 [facility] Serum Creatinine AND GFRon 1 06-01-2024 Creatinine [Mass/Vol] 0.52 mg/dL Low 0.70-1.20 [facility] Comment on above: Performed By: #### L 300.8000, L501.4021, L100.0100 #### Laboratory [address] [place], [address] ECRCL 198.07 ml/min Normal 50-250 Comment on above: Performed By: #### L 300.8000, L501.4021, L100.0100 #### Laboratory [address] [place], [address] GFR/1.73 sq M.predicted among non-blacks MDRD (S/P/Bld) [Vol rate/Area] 137 mL/min/{1.73_m2} Normal >60 Comment on above: Result Comment: mL/m in/1.73m2 CKD-EPI Creatinine Equation (2020) Performed By: #### L 300.8000, L501.4021, L100.0100 #### Laboratory [address] [place], [address] Uric Acidon 04-01-2025 URIC 3.4 mg/dL Normal 2.6-6.0 Comment on above: Result Comment: The drugs N-Acetylcysteine and Metamizole may falsely depress this assay. Performed By: #### L 300.8000, L501.4021, L100.0100 #### Laboratory [address] [place], [address] Urinalysis, Routine (Dipstic k)on 04-01-2025 BILIRUBIN URINE Negative Normal Negative Comment on above: Order Comment: CLEAN CATCH Performed By: #### L 205.1000 #### Laboratory [address] [place], [address] Clarity (U) Clear Normal Clear Comment on above: Order Comment: CLEAN CATCH Performed By: #### L 205.1000 #### Laboratory [address] [place], [address] Color (U) Straw Normal Yellow Comment on above: Order Comment: CLEAN CATCH Performed By: #### L 205.1000 #### Laboratory [address] [place], [address] GLUCOSE, UR 100 mg/dl Abnormal Normal Comment on above: Order Comment: CLEAN CATCH Performed By: #### L 205.1000 #### Laboratory [address] [place], [address] KETONE UR Negative Normal Negative Comment on above: Order Comment: CLEAN CATCH Performed By: #### L 205.1000 #### Laboratory [address] [place], [address] LEUK ESTERASE Negative Normal Negative Comment on above: Order Comment: CLEAN CATCH Performed By: #### L 205.1000 #### Laboratory [address] [place], [address] Nitrite Ql (U) Negative Normal Negative Comment on above: Order Comment: CLEAN CATCH Performed By: #### L 205.1000 #### Laboratory [address] [place], [address] OCCULT BLOOD-UR 10 /ul Abnormal Negative Comment on above: Order Comment: CLEAN CATCH Performed By: #### L 205.1000 #### Laboratory [address] [place], [address] pH UR 6.5 Normal 5.0 - 8.0 Comment on above: Order Comment: CLEAN CATCH Performed By: #### L .1000 #### Laboratory [address] [place], [address] PROT DIPSTX Negative Normal Negative Comment on above: Order Comment: CLEAN CATCH Performed By: #### L .1000 #### Laboratory [address] [place], [address] SP.GR. DIPSTX 1.015 Normal 1.002-1.030 Comment on above: Order Comment: CLEAN CATCH Performed By: #### L .1000 #### Laboratory [address] [place], [address] UROBILI Normal Normal Normal Comment on above: Order Comment: CLEAN CATCH Performed By: #### L .1000 #### Laboratory [address] [place], [address] Urine clarityOrdered By: Jazmin Aragon on 04-01-2025 Clarity (U) Clear Clear Urine color determinationOrd ered By: Magda Aragon on 04-01-2025 Color (U) Straw Yellow Urine glucose detectionOrder ed By: Magda Aragon on 04-01-2025 Glucose Ql (U) 100 mg/dl High Normal Urine leukocyte esterase det ection by dipstickOrdered By: Magda Aragon on 04-01-2025 Leukocyte esterase Test strip Ql (U) Negative Negative Urine pHOrdered By: Magda Aragon on 04-01-2025 pH (U) 6.5 [pH] 5.0 - 8.0 Urine specific gravity measu rementOrdered By: Magda Aragon on 04-01-2025 Specific gravity (U) [Rel density] 1.015 1.002-1.030 Urine urobilinogen measureme ntOrdered By: Magda Aragon on 04-01-2025 Urobilinogen Ql (U) Normal mg/dl Normal [facility] White blood cell (WBC) count Ordered By: Magda Aragon on 04-01-2025 WBC (Bld) [#/Vol] 11.2 10*3/uL High 4.4-11.0 [facility] CNPNon 03-31-2025 CNPN Telephone (OBGYWM) ---- PAL NICHOLAS ([id number]) 3 F Date Time Provider Department 03/31/25 PATSY MARCH During your visit today, we recorded the following information about you: Patsy March APRN.HUMPHREY 03/31/2025 3:54 PM Signed Patient was supposed to call for appointment for BP check and follow up. I don't see she did this. Can you please assist in scheduling her for a visit this week for BP check. ED records to nursing to scan to chart. Thanks, Patsy March APRN.Magda Reyes RN 03/31/2025 4:24 PM Addendum Left message for patient to call office. ER records sent for scanning. LEVON Gardner Trisha, RN 04/01/2025 8:27 AM Signed Patient called back yesterday and was scheduled by a QUALITY CONTROL ASSESSOR for 04/02. Isaura Pereira RN Allergies As of Date: 03/31/2025 (No Known Allergies) Date Reviewed: 03/26/2025 Reviewed by: Lili Harry LPN - Fully Assessed Prescriptions as of 04/01/2025 - famotidine (PEPCID) 20 mg tablet Take [...] by mouth. Problem List As Of Date 03/31/2025 Noted Resolved Bacterial vaginosis [N76.0, B96.89] 12/22/2024 [...] 03/11/2025 Encounter Status:Closed by ISAURA PEREIRA on 04/01/[address] [facility] Urine Cultureon 03-30-2025 URC Culture exhibits no growth. Normal Comment on above: Performed By: #### L 300.8000, L501.4021, L100.0100 #### Laboratory [address] [place], [address] 12 Lead EKGon 03-29-2025 12 Lead EKG [facility] Cardiovascular Services [address] [place] [address] 12 Lead EKG 03/29/25 1929 MR#: [id number] Acct: [id number] Name: PAL NICHOLAS Rep #: [id number] : 2005 19 From: Ken Fuentes MD Attending Dr: Status: DEP ER Ordering Dr: Eugene Moerjon MD Date: 03/29/25 Location: ED Sex: F [...] Normal ECG Confirmed by Ken Fuentes ([id number]), field map editor PRITI ROBLES ([id number]) on 03/30/2025 8:55:43 AM Referred By: MANUELA Confirmed By: Ken Fuentes 03/30/25 0855 Date Ken Fuentes MD CC: Dr. Eugene Morejon MD; No Primary Care Physician Signed Normal AST(SGOT)on 03-29-2025 AST [Catalytic activity/Vol] 15 U/L Normal <=31 Comment on above: Performed By: #### L 205.1000 #### Laboratory [address] [place], [place], [address] Absolute lymphocyte countOrd ered By: Eugene Morejon on 03-29-2025 Lymphocytes Auto (Unsp spec) [#/Vol] 1.95 10*3/uL 0.83-4.51 Absolute neutrophil countOrd ered By: Eugene Morejon on 03-29-2025 Neutrophils (Bld) [#/Vol] 7.9 10*3/uL High 2.0-7.7 Alanine Aminotransferas (SGP T)on 03-29-2025 ALT [Catalytic activity/Vol] 6 U/L Normal <=34 Comment on above: Performed By: #### L 205.1000 #### Laboratory [address] [place], [address] Anion gap in Serum or Plasma Ordered By: Eugene Morejon on 03-29-2025 Anion gap [Moles/Vol] 12 mmol/L 5-15 [facility] Automated lymphocyte count a s percentage of total leukocytesOrdered By: Eugene Morejon on 03-29-2025 Lymphocytes/100 WBC Auto (Unsp spec) 17.0 % Low 19-41 BUN/creatinine ratioOrdered By: Eugene Morejon on 03-29-2025 Urea nitrogen/Creatinine [Mass ratio] 10.8 mg/mg 10-20 Basophil percentageOrdered B y: Eugene Morejon on 03-29-2025 Basophils/100 WBC (Bld) 0.4 % 0-1 [facility] Bilirubin Test strip Ql (U)O rdered By: Patsy March on 03-29-2025 Bilirubin Ql (U) Negative Negative Bilirubin, totalOrdered By: Eugene Morejon on 03-29-2025 Bilirubin [Mass/Vol] 0.33 mg/dL 0.00-1.30 [facility] CBC W/Diff, Automatedon Absolute Lymph 1.95 X10 3/uL Normal 0.83-4.51 Comment on above: Performed By: #### L 300.8000, L501.4021, L100.0100 #### Laboratory [address] [place], [address] Absolute Neut 7.9 X10 3/uL High 2.0-7.7 Comment on above: Performed By: #### L 300.8000, L501.4021, L100.0100 #### Laboratory [address] [place], [address] Basophils/100 WBC (Bld) 0.4 % Normal 0-1 [facility] Comment on above: Performed By: #### L 300.8000, L501.4021, L100.0100 #### Laboratory [address] [place], [address] Eosinophils/100 WBC (Bld) 1.2 % Normal 0-5 Comment on above: Performed By: #### L 300.8000, L501.4021, L100.0100 #### Laboratory [address] [place], [address] Erythrocyte distribution width (RBC) [Ratio] 12.8 % Normal 11.6-14.6 Comment on above: Performed By: #### L 300.8000, L501.4021, L100.0100 #### Laboratory [address] [place], [address] Hematocrit (Bld) [Volume fraction] 36.3 % Low 37-47 Comment on above: Performed By: #### L 300.8000, L501.4021, L100.0100 #### Laboratory [address] [place], [address] Hemoglobin (Bld) [Mass/Vol] 12.5 g/dL Normal 12.0-15.0 Comment on above: Performed By: #### L 300.8000, L501.4021, L100.0100 #### Laboratory [address] [place], [address] IG% 1.800 High 0.0-0.9 Comment on above: Result Comment: IG% - Immature Granulocytes (promyelocytes, myelocytes and metamyelocytes) > 1% indicates that a LEFT SHIFT is Present. Performed By: #### L 300.8000, L501.4021, L100.0100 #### Laboratory [address] [place], [address] Lymphocytes/100 WBC (Bld) 17.0 % Low 19-41 Comment on above: Performed By: #### L 300.8000, L501.4021, L100.0100 #### Laboratory [address] [place], [address] MCH (RBC) [Entitic mass] 31.1 pg Normal 27.0-32.0 Comment on above: Performed By: #### L 300.8000, L501.4021, L100.0100 #### Laboratory [address] [place], [address] MCHC (RBC) [Mass/Vol] 34.4 g/dL Normal 32-36 [facility] Comment on above: Performed By: #### L 300.8000, L501.4021, L100.0100 #### Laboratory [address] [place], [address] MCV (RBC) [Entitic vol] 90.3 fL Normal 81-99 [facility] Comment on above: Performed By: #### L 300.8000, L501.4021, L100.0100 #### Laboratory [address] [place], [address] Monocytes/100 WBC (Bld) 10.1 % High 0-10 [facility] Comment on above: Performed By: #### L 300.8000, L501.4021, L100.0100 #### Laboratory [address] [place], [address] Neutrophils/100 WBC (Bld) 69.5 % Normal 47-70 Comment on above: Performed By: #### L 300.8000, L501.4021, L100.0100 #### Laboratory [address] [place], [address] Nucleated RBC (Bld) [#/Vol] 0 10*3/uL Normal 0-5 Comment on above: Performed By: #### L 300.8000, L501.4021, L100.0100 #### Laboratory [address] [place], [address] Platelet mean volume (Bld) [Entitic vol] 9.9 fL Normal 6.2-12.0 Comment on above: Performed By: #### L 300.8000, L501.4021, L100.0100 #### Laboratory [address] [place], [address] Platelets (Bld) [#/Vol] 288 10*3/uL Normal 150-450 Comment on above: Performed By: #### L 300.8000, L501.4021, L100.0100 #### Laboratory [address] [place], [address] RBC (Bld) [#/Vol] 4.02 10*6/uL Low 4.2-5.4 [facility] Comment on above: Performed By: #### L 300.8000, L501.4021, L100.0100 #### Laboratory [address] [place], [address] RDW SD 42.2 fl Normal 35.1-43.9 Comment on above: Performed By: #### L 300.8000, L501.4021, L100.0100 #### Laboratory [address] [place], [address] WBC (Bld) [#/Vol] 11.5 10*3/uL High 4.4-11.0 [facility] Comment on above: Performed By: #### L 300.8000, L501.4021, L100.0100 #### Laboratory [address] [place], [address] CBC-Complete Blood Cnt No Di kamillaon 03-29-2025 Erythrocyte distribution width (RBC) [Ratio] 12.8 % Normal 11.6-14.6 Comment on above: Performed By: #### L 205.1000 #### Laboratory [address] [place], [address] Hematocrit (Bld) [Volume fraction] 36.3 % Low 37-47 Comment on above: Performed By: #### L 205.1000 #### Laboratory [address] [place], [address] Hemoglobin (Bld) [Mass/Vol] 12.3 g/dL Normal 12.0-15.0 Comment on above: Performed By: #### L 205.1000 #### Laboratory [address] [place], [address] MCH (RBC) [Entitic mass] 30.8 pg Normal 27.0-32.0 Comment on above: Performed By: #### L 205.1000 #### Laboratory [address] [place], [address] MCHC (RBC) [Mass/Vol] 33.9 g/dL Normal 32-36 [facility] Comment on above: Performed By: #### L 205.1000 #### Laboratory [address] [place], [address] MCV (RBC) [Entitic vol] 90.8 fL Normal 81-99 [facility] Comment on above: Performed By: #### L 205.1000 #### Laboratory [address] [place], [address] Platelet mean volume (Bld) [Entitic vol] 9.8 fL Normal 6.2-12.0 Comment on above: Performed By: #### L 205.1000 #### Laboratory [address] [place], [address] Platelets (Bld) [#/Vol] 276 10*3/uL Normal 150-450 Comment on above: Performed By: #### L 205.1000 #### Laboratory [address] [place], [address] RBC (Bld) [#/Vol] 4.00 10*6/uL Low 4.2-5.4 [facility] Comment on above: Performed By: #### L 205.1000 #### Laboratory [address] [place], [address] RDW SD 41.9 fl Normal 35.1-43.9 Comment on above: Performed By: #### L 205.1000 #### Laboratory [address] [place], [address] WBC (Bld) [#/Vol] 10.8 10*3/uL Normal 4.4-11.0 [facility] Comment on above: Performed By: #### L 205.1000 #### Laboratory [address] [place], [address] CNPNon 03-29-2025 CNPN Telephone (LC) ---- PAL NICHOLAS ([id number]) 3 F Date Time Provider Department 03/29/25 PATSY MARCH During your visit today, we recorded the following information about you: Isaura Pereira RN 03/29/2025 4:16 PM Signed 31w0d Calling c/o increased vaginal/pelvic pressure, lower back pain and dysuria. No bleeding or leaking fluid. Only feels occasional angel zaragoza type of contractions, nothing regular. She is having decreased movement too. Hasn't done kick counts, but movement is a lot less than normal today. She is unsure how long it'd take her to get to office or [place] d/t needing to find a ride first. Advised to go to [facility]NOTE 3[facility] for evaluation then. [facility]NOTE [facility] updated. Updated episode sent to [facility]NOTE 3]. LEVON Hutson Jessica, APRN.HUMPHREY 03/30/2025 10:12 AM Signed Patient evaluated in [facility][NOTE 3] then sent to ED for shortness of [...] Status:Closed by ISAURA PEREIRA on 03/29/[address] [facility] Carbon dioxide, total [Moles /volume] in Central venous bloodOrdered By: Eugene Morejon on 03-29-2025 CO2 [Moles/Vol] 18.9 mmol/L Low 21.0-32.0 Chloride assayOrdered By: Sebastián Morejon on 03-29-2025 Chloride [Moles/Vol] 106 mmol/L 98-108 [facility] Comprehensive Metabolic Prof ilon 03-29-2025 Albumin [Mass/Vol] 3.7 g/dL Normal 3.5-5.0 [facility] Comment on above: Performed By: #### L 300.8000, L501.4021, L100.0100 #### Laboratory [address] [place], [address] Albumin/Globulin [Mass ratio] 1.2 {ratio} Normal 0.9-2.4 Comment on above: Performed By: #### L 300.8000, L501.4021, L100.0100 #### Laboratory [address] [place], [address] ALK PHOS 88 U/L Normal 35-104 Comment on above: Performed By: #### L 300.8000, L501.4021, L100.0100 #### Laboratory [address] [place], [address] ALT [Catalytic activity/Vol] 12 U/L Normal <=34 Comment on above: Performed By: #### L 300.8000, L501.4021, L100.0100 #### Laboratory [address] [place], [address] AST [Catalytic activity/Vol] 18 U/L Normal <=31 Comment on above: Result Comment: Hemo lysis present, Results??could be affected. ?? Performed By: #### L 300.8000, L501.4021, L100.0100 #### Laboratory [address] [place], [address] Bilirubin [Mass/Vol] 0.33 mg/dL Normal 0.00-1.30 [facility] Comment on above: Performed By: #### L 300.8000, L501.4021, L100.0100 #### Laboratory [address] [place], [address] BUN/CRE 10.8 RATIO Normal 10-20 Comment on above: Performed By: #### L 300.8000, L501.4021, L100.0100 #### Laboratory [address] [place], [address] Calcium [Mass/Vol] 9.1 mg/dL Normal 7.6-11.0 [facility] Comment on above: Performed By: #### L 300.8000, L501.4021, L100.0100 #### Laboratory [address] [place], [address] Chloride [Moles/Vol] 106 mmol/L Normal 98-108 [facility] Comment on above: Performed By: #### L 300.8000, L501.4021, L100.0100 #### Laboratory [address] [place], [address] CO2 [Moles/Vol] 18.9 mmol/L Low 21.0-32.0 Comment on above: Performed By: #### L 300.8000, L501.4021, L100.0100 #### Laboratory [address] [place], [address] Creatinine [Mass/Vol] 0.54 mg/dL Low 0.70-1.20 [facility] Comment on above: Performed By: #### L 300.8000, L501.4021, L100.0100 #### Laboratory [address] [place], [address] ECRCL 191.62 ml/min Normal 50-250 Comment on above: Performed By: #### L 300.8000, L501.4021, L100.0100 #### Laboratory [address] [place], [address] GAP 12 Normal 5-15 Comment on above: Performed By: #### L 300.8000, L501.4021, L100.0100 #### Laboratory [address] [place], [address] GFR/1.73 sq M.predicted among non-blacks MDRD (S/P/Bld) [Vol rate/Area] 135 mL/min/{1.73_m2} Normal >60 Comment on above: Result Comment: mL/m in/1.73m2 CKD-EPI Creatinine Equation (2020) Performed By: #### L 300.8000, L501.4021, L100.0100 #### Laboratory [address] [place], [address] Globulin (S) [Mass/Vol] 3.1 g/dL Normal 2.2-4.2 [facility] Comment on above: Performed By: #### L 300.8000, L501.4021, L100.0100 #### Laboratory [address] [place], [address] Glucose [Mass/Vol] 117 mg/dL High 70-99 [facility] Comment on above: Performed By: #### L 300.8000, L501.4021, L100.0100 #### Laboratory [address] [place], [address] Potassium [Moles/Vol] 4.1 mmol/L Normal 3.3-5.1 [facility] Comment on above: Result Comment: Hemo lysis present, Results??could be affected. ?? Performed By: #### L 300.8000, L501.4021, L100.0100 #### Laboratory [address] [place], [address] Sodium [Moles/Vol] 137 mmol/L Normal 133-145 [facility] Comment on above: Performed By: #### L 300.8000, L501.4021, L100.0100 #### Laboratory [address] [place], [address] T PROT 6.9 g/dL Normal 5.9-8.4 Comment on above: Performed By: #### L 300.8000, L501.4021, L100.0100 #### Laboratory [address] [place], [address] Urea nitrogen [Mass/Vol] 6 mg/dL Normal 4-19 Comment on above: Performed By: #### L 300.8000, L501.4021, L100.0100 #### Laboratory [address] [place], [address] ALB Normal 3.5-5.0 Comment on above: Result Comment: @PT DEPARTED, OK TO CANCEL BY NURSE SHEEHAN Performed By: #### L 300.8000, L501.4021, L100.0100 #### Laboratory [address] [place], [address] ALK PHOS Normal 35-104 Comment on above: Result Comment: @PT DEPARTED, OK TO CANCEL BY NURSE AGUILA Performed By: #### L 300.8000, L501.4021, L100.0100 #### Laboratory [address] [place], [address] ALT Normal <=34 Comment on above: Result Comment: @PT DEPARTED, OK TO CANCEL BY NURSE SHEEHAN Performed By: #### L 300.8000, L501.4021, L100.0100 #### Laboratory [address] [place], [address] AST Normal <=31 Comment on above: Result Comment: @PT DEPARTED, OK TO CANCEL BY NURSE SHEEHAN Performed By: #### L 300.8000, L501.4021, L100.0100 #### Laboratory [address] [place], [address] BUN Normal 4-19 Comment on above: Result Comment: @PT DEPARTED, OK TO CANCEL BY NURSE SHEEHAN Performed By: #### L 300.8000, L501.4021, L100.0100 #### Laboratory [address] [place], [address] BUN/CRE Normal 10-20 Comment on above: Result Comment: @PT DEPARTED, OK TO CANCEL BY NURSE AGUILA Performed By: #### L 300.8000, L501.4021, L100.0100 #### Laboratory [address] [place], [address] Calcium Normal 7.6-11.0 Comment on above: Result Comment: @PT DEPARTED, OK TO CANCEL BY NURSE AGUILA Performed By: #### L 300.8000, L501.4021, L100.0100 #### Laboratory [address] [place], [address] CL Normal 98-108 Comment on above: Result Comment: @PT DEPARTED, OK TO CANCEL BY NURSE AGUILA Performed By: #### L 300.8000, L501.4021, L100.0100 #### Laboratory [address] [place], [address] CO2 Normal 21.0-32.0 Comment on above: Result Comment: @PT DEPARTED, OK TO CANCEL BY NURSE SHEEHAN Performed By: #### L 300.8000, L501.4021, L100.0100 #### Laboratory [address] [place], [address] CREAT,SERUM Normal 0.70-1.20 Comment on above: Result Comment: @PT DEPARTED, OK TO CANCEL BY NURSE SHEEHAN Performed By: #### L 300.8000, L501.4021, L100.0100 #### Laboratory [address] [place], [address] eGFR Normal >60 Comment on above: Result Comment: @PT DEPARTED, OK TO CANCEL BY NURSE SHEEHAN Performed By: #### L 300.8000, L501.4021, L100.0100 #### Laboratory [address] [place], [address] GAP Normal 5-15 Comment on above: Result Comment: @PT DEPARTED, OK TO CANCEL BY NURSE AGUILA Performed By: #### L 300.8000, L501.4021, L100.0100 #### Laboratory [address] [place], [address] GLU Normal 70-99 Comment on above: Result Comment: @PT DEPARTED, OK TO CANCEL BY NURSE AGUILA Performed By: #### L 300.8000, L501.4021, L100.0100 #### Laboratory [address] [place], [address] Potassium Normal 3.3-5.1 Comment on above: Result Comment: @PT DEPARTED, OK TO CANCEL BY NURSE AGUILA Performed By: #### L 300.8000, L501.4021, L100.0100 #### Laboratory [address] [place], [address] T BILI Normal 0.00-1.30 Comment on above: Result Comment: @PT DEPARTED, OK TO CANCEL BY NURSE SHEEHAN Performed By: #### L 300.8000, L501.4021, L100.0100 #### Laboratory [address] [place], [address] T PROT Normal 5.9-8.4 Comment on above: Result Comment: @PT DEPARTED, OK TO CANCEL BY NURSE AGUILA Performed By: #### L 300.8000, L501.4021, L100.0100 #### Laboratory [address] [place], [address] Comprehensive Metabolic Profil Normal 133-145 Comment on above: Result Comment: @PT DEPARTED, OK TO CANCEL BY NURSE SHEEHAN Performed By: #### L 300.8000, L501.4021, L100.0100 #### Laboratory [address] [place], [address] D-Dimer Quantitative (DVT/PE )on 03-29-2025 D-DIMER QUANT 0.77 FEU/ug/m Invalid Interpretation Code 0.27-0.49 Comment on above: Result Comment: D-Di peewee ELEVATED (>0.49): Additional studies and clinical assessments are indicated to conclude diagnosis of: Deep Vein Thrombosis (DVT) or Pulmonary Embolism (PE) CRITICAL VALUE CALLED TO OTIS COLBERT 03/29/252048 Mera Yañez. RESULTS READ BACK BY SAME. Performed By: #### L 300.8000, L501.4021, L100.0100 #### Laboratory [address] [place], [address] Emergency Department Summary on 03-29-2025 Emergency Department Summary [facility] Medical Records Department [address] [place] [address] Emergency Department Summary 03/29/25 MR#: [id number] Acct: [id number] Name: PAL NICHOLAS Rep #: [id number] : 2005 19 From: Eugene Morejon MD [...] was sent to the emergency department by CRYSTALIZER OPERATOR, Dr. Corley, because of her chest pain and shortness of breath. It is difficult for her to describe the type of pain that she is having but she feels more short of breath. She states she already takes baby aspirin during the to help prevent preeclampsia. She denies any fevers or chills, no cough, no leg swelling, no exacerbating or alleviating factors. [facility] Medical History POTS (postural orthostatic tachycardia syndrome) [...] I d (more content not included)... Normal Eosinophil percentageOrdered By: Eugene Morejon on 03-29-2025 Eosinophils/100 WBC (Bld) 1.2 % 0-5 Erythrocyte distribution wid th ratioOrdered By: Eugene Morejon on 03-29-2025 Erythrocyte distribution width (RBC) [Ratio] 12.8 % 11.6-14.6 Erythrocyte distribution wid th ratioOrdered By: Patsy March on 03-29-2025 Erythrocyte distribution width (RBC) [Ratio] 12.8 % 11.6-14.6 Erythrocyte distribution wid th standard deviationOrdered By: Eugene Morejon on 03-29-2025 Erythrocyte distribution width (RBC) [Ratio] 42.2 fl 35.1-43.9 Erythrocyte distribution wid th standard deviationOrdered By: Patsy March on 03-29-2025 Erythrocyte distribution width (RBC) [Ratio] 41.9 fl 35.1-43.9 Glomerular filtration rate ( GFR) estimation/1.73 sq m using serum, plasma, or whole bOrdered By: Eugene Morejon on 03-29-2025 GFR/1.73 sq M.predicted among non-blacks MDRD (S/P/Bld) [Vol rate/Area] 135 mL/min/{1.73_m2} >60 Comment on above: mL/min/1.73m2 CKD-EP I Creatinine Equation (2020) Glomerular filtration rate ( GFR) estimation/1.73 sq m using serum, plasma, or whole bOrdered By: Patys March on 03-29-2025 GFR/1.73 sq M.predicted among non-blacks MDRD (S/P/Bld) [Vol rate/Area] 136 mL/min/{1.73_m2} >60 Comment on above: mL/min/1.73m2 CKD-EP I Creatinine Equation (2020) Hematocrit Auto (Bld) [Volum e fraction]Ordered By: Eugene Morejon on 03-29-2025 Hematocrit (Bld) [Volume fraction] 36.3 % Low 37-47 Hematocrit Auto (Bld) [Volum e fraction]Ordered By: Patsy March on 03-29-2025 Hematocrit (Bld) [Volume fraction] 36.3 % Low 37-47 Hemoglobin measurementOrdere d By: Eugene Morejon on 03-29-2025 Hemoglobin (Bld) [Mass/Vol] 12.5 g/dL 12.0-15.0 Hemoglobin measurementOrdere d By: Patsy March on 03-29-2025 Hemoglobin (Bld) [Mass/Vol] 12.3 g/dL 12.0-15.0 Immature granulocytes/100 WB C Auto (Bld)Ordered By: Eugene Morejon on 03-29-2025 Immature granulocytes/100 WBC (Bld) 1.800 % High 0.0-0.9 Comment on above: IG% - Immature Granu locytes (promyelocytes, myelocytes and metamyelocytes) > 1% indicates that a LEFT SHIFT is Present. Ketones Test strip Ql (U)Ord ered By: Patsy March on 03-29-2025 Ketones Ql (U) Negative Negative L501.4021on 03-29-2025 Trop T High Sen < 6 Normal <=14 Comment on above: Performed By: #### L 300.8000, L501.4021, L100.0100 #### Laboratory [address] [place], [address] Laboratory - Chemistry and C hemistry - challengeOrdered By: Eugene Morejon on 03-29-2025 AST [Catalytic activity/Vol] 18 U/L <32 Comment on above: Hemolysis present, R esults could be affected. Laboratory - Chemistry and C hemistry - challengeOrdered By: Patsy March on 03-29-2025 AST [Catalytic activity/Vol] 15 U/L <32 MCV (mean corpuscular volume ) determinationOrdered By: Eugene Morejon on 03-29-2025 MCV (RBC) [Entitic vol] 90.3 fL 81-99 [facility] MCV (mean corpuscular volume ) determinationOrdered By: Patsy March on 03-29-2025 MCV (RBC) [Entitic vol] 90.8 fL 81-99 [facility] Mean corpuscular hemoglobin (MCH) determinationOrdered By: Eugene Morejon on 03-29-2025 MCH (RBC) [Entitic mass] 31.1 pg 27.0-32.0 Mean corpuscular hemoglobin (MCH) determinationOrdered By: Patsy March on 03-29-2025 MCH (RBC) [Entitic mass] 30.8 pg 27.0-32.0 Mean corpuscular hemoglobin concentration (MCHC) determinationOrdered By: Eugene Morejon on 03-29-2025 MCHC (RBC) [Mass/Vol] 34.4 g/dL 32-36 [facility] Mean corpuscular hemoglobin concentration (MCHC) determinationOrdered By: Patsy March on 03-29-2025 MCHC (RBC) [Mass/Vol] 33.9 g/dL -36 [facility] Mean platelet volume determi nationOrdered By: Eugene Morejon on 03-29-2025 Platelet mean volume (Bld) [Entitic vol] 9.9 fL 6.2-12.0 Mean platelet volume determi nationOrdered By: Patsy March on 03-29-2025 Platelet mean volume (Bld) [Entitic vol] 9.8 fL 6.2-12.0 Microscopic analysis of urin e for red blood cells (RBC)Ordered By: Eugene Morejon on 03-29-2025 Microscopic analysis of urine for red blood cells (RBC) 0-5 SEEN /hpf 0-5 Monocyte percentageOrdered B y: Eugene Morejon on 03-29-2025 Monocytes/100 WBC (Bld) 10.1 % High 0-10 [facility] Mucus LM Ql (Urine sed)Order ed By: Eugene Morejon on 03-29-2025 Mucus Ql (Urine sed) 0 SEEN /hpf [facility] Neutrophil percentageOrdered By: Eugene Morejon on 03-29-2025 Neutrophils/100 WBC (Bld) 69.5 % 47-70 Nitrite Test strip Ql (U)Ord ered By: Patsy aMrch on 03-29-2025 Nitrite Ql (U) Negative Negative Nucleated red blood cell per centageOrdered By: Eugene Morejon on 03-29-2025 Nucleated RBC/100 WBC (Bld) [Ratio] 0 % 0-5 OB Triage Physician Noteon 1 05-29-2024 OB Triage Physician Note [facility] Medical Records Department [address] [place] [address] OB Triage Physician Note 03/29/25 1858 MR#: [id number] Acct: [id number] Name: PAL NICHOLAS Rep #: [id number] : 2005 19 From: Patsy March CNM PCP: Care Physician,No Primary Status:REG CLI Y Location: [place] 254222-1 HPI - General HPI Narrative PAL NICHOLAS, [...] Current Estimate 05/31/25 Manual 31w 0d PFSH [facility] Medical History (Updated 03/29/25 @ 19:04 by [...] or un (more content not included)... Normal Platelet countOrdered By: Sebastián Morejon on 03-29-2025 Platelets (Bld) [#/Vol] 288 10*3/uL 150-450 Platelet countOrdered By: William March on 03-29-2025 Platelets (Bld) [#/Vol] 276 10*3/uL 150-450 Potassium measurement (mass/ volume)Ordered By: Eugene Morejon on 03-29-2025 Potassium (Unsp spec) [Mass/Vol] 4.1 mmol/L 3.3-5.1 Comment on above: Hemolysis present, R esults could be affected. Protein Test strip Ql (U)Ord ered By: Patsy March on 03-29-2025 Protein Ql (U) 15 mg/dl High Negative Protein Test strip Ql (U)Ord ered By: Eugene Morejon on 03-29-2025 Protein Ql (U) Negative Negative Protein+Creatinine Ratio,Uri neon 03-29-2025 PROT:CRE RATIO 181 mg/g CRE Normal 0-200 Comment on above: Performed By: #### L 205.1000 #### Laboratory [address] [facility] [place], [address] Protein (U) [Mass/Vol] 10.6 mg/dL Normal 0.0-12.0 [facility] Comment on above: Performed By: #### L 205.1000 #### Laboratory [address] [place], [address] UR CREAT 58.70 mg/dL Normal 28.00-217.00 Comment on above: Performed By: #### L 205.1000 #### Laboratory [address] [place], [address] RBC Auto (Bld) [#/Vol]Ordere d By: Eugene Morejon on 03-29-2025 RBC (Bld) [#/Vol] 4.02 10*6/uL Low 4.2-5.4 [facility] RBC Auto (Bld) [#/Vol]Ordere d By: Patsy March on 03-29-2025 RBC (Bld) [#/Vol] 4.00 10*6/uL Low 4.2-5.4 [facility] Random urine creatinine mak urement (mass/volume)Ordered By: Patsy March on 03-29-2025 Creatinine Unsp time (U) [Mass/Vol] 58.70 mg/dL 28.00-217.00 Serum Creatinine AND GFRon 1 05-29-2024 Creatinine [Mass/Vol] 0.53 mg/dL Low 0.70-1.20 [facility] Comment on above: Performed By: #### L 205.1000 #### Laboratory [address] [place], [address] ECRCL 193.85 ml/min Normal 50-250 Comment on above: Performed By: #### L 205.1000 #### Laboratory [address] [place], [address] GFR/1.73 sq M.predicted among non-blacks MDRD (S/P/Bld) [Vol rate/Area] 136 mL/min/{1.73_m2} Normal >60 Comment on above: Result Comment: mL/m in/1.73m2 CKD-EPI Creatinine Equation (2020) Performed By: #### L .1000 #### Laboratory [address] [place], [place], [address] Serum creatinine measurement (mass/volume)Ordered By: Eugene Morejon on 03-29-2025 Creatinine [Mass/Vol] 0.54 mg/dL Low 0.70-1.20 [facility] Serum creatinine measurement (mass/volume)Ordered By: Patsy March on 03-29-2025 Creatinine [Mass/Vol] 0.53 mg/dL Low 0.70-1.20 [facility] Serum globulin measurementOr dered By: Eugene Morejon on 03-29-2025 Globulin (S) [Mass/Vol] 3.1 g/dL 2.2-4.2 [facility] Serum glucose measurement (m ass/volume)Ordered By: Eugene Morejon on 03-29-2025 Glucose [Mass/Vol] 117 mg/dL High 70-99 [facility] Serum or plasma alanine pennington otransferase (ALT) measurementOrdered By: Eugene Morejon on 03-29-2025 ALT [Catalytic activity/Vol] 12 U/L <35 Serum or plasma alanine pennington otransferase (ALT) measurementOrdered By: Patsy March on 03-29-2025 ALT [Catalytic activity/Vol] 6 U/L <35 Serum or plasma albumin mak urement (mass/volume)Ordered By: Eugene Morejon on 03-29-2025 Albumin [Mass/Vol] 3.7 g/dL 3.5-5.0 [facility] Serum or plasma albumin/glob ulin mass ratioOrdered By: Eugene Morejon on 03-29-2025 Albumin/Globulin [Mass ratio] 1.2 {ratio} 0.9-2.4 Serum or plasma alkaline cristofer sphatase measurementOrdered By: Eugene Morejon on 03-29-2025 ALP [Catalytic activity/Vol] 88 U/L 35-104 Serum or plasma calcium mak urement (mass/volume)Ordered By: Eugene Morejon on 03-29-2025 Calcium [Mass/Vol] 9.1 mg/dL 7.6-11.0 [facility] Serum or plasma urea nitroge n measurement (mass/volume)Ordered By: Eugene Morejon on 03-29-2025 Urea nitrogen [Mass/Vol] 6 mg/dL 4-19 Serum or plasma uric acid me asurement (mass/volume)Ordered By: Patsy March on 03-29-2025 Urate [Mass/Vol] 3.3 mg/dL 2.6-6.0 Comment on above: The drugs N-Acetylcy steine and Metamizole may falsely depress this assay. Sodium levelOrdered By: Eugene Morejon on 03-29-2025 Sodium [Moles/Vol] 137 mmol/L 133-145 [facility] Squamous epithelial cells de tection in urine sediment by light microscopyOrdered By: Eugene Morejon on 03-29-2025 Epithelial cells.squamous LM Ql (Urine sed) 0-5 SEEN /hpf 5-10 Total proteinOrdered By: Graciela Morejon on 03-29-2025 Protein [Mass/Vol] 6.9 g/dL 5.9-8.4 [facility] Troponin T HS 2 HRon 025 Trop T High Sen Normal <=14 Comment on above: Result Comment: CARLOS ENT DISCHARGED Performed By: #### L 300.8000, L501.4021, L100.0100 #### Laboratory [address] [place], [address] Troponin T.cardiac [Mass/vol ume] in Serum or Plasma by High sensitivity methodOrdered By: Eugene Morejon on 03-29-2025 Troponin T.cardiac High sensitivity method [Mass/Vol] < 6 ng/L <14 Uric Acidon 03-29-2025 URIC 3.3 mg/dL Normal 2.6-6.0 Comment on above: Result Comment: The drugs N-Acetylcysteine and Metamizole may falsely depress this assay. Performed By: #### L 205.1000 #### Laboratory [address] [place], [address] Urinalysis, Completeon 03-29 EPI,SQUAMOUS 0-5 SEEN Normal 5-10 Comment on above: Order Comment: COLLE CTOR TO SPECIFY Performed By: #### L 300.8000, L501.4021, L100.0100 #### Laboratory [address] [place], [address] RBC 0-5 SEEN Normal 0-5 Comment on above: Order Comment: COLLE CTOR TO SPECIFY Performed By: #### L 300.8000, L501.4021, L100.0100 #### Laboratory [address] [place], [address] WBC 0-5 SEEN Normal 0-5 Comment on above: Order Comment: COLLE CTOR TO SPECIFY Performed By: #### L 300.8000, L501.4021, L100.0100 #### Laboratory [address] [place], [address] BACTERIA 0 SEEN Normal None Seen Comment on above: Order Comment: COLLE CTOR TO SPECIFY Performed By: #### L 300.8000, L501.4021, L100.0100 #### Laboratory [address] [place], [address] Mucus Ql (Urine sed) 0 SEEN Normal [facility] Comment on above: Order Comment: MINOO CTOR TO SPECIFY Performed By: #### L 300.8000, L501.4021, L100.0100 #### Laboratory [address] [place], [address] Urinalysis, Routine (Dipstic k)on 03-29-2025 BILIRUBIN URINE Negative Normal Negative Comment on above: Order Comment: MINOO CTOR TO SPECIFY Performed By: #### L 400.2010 #### Laboratory [address] [place], [address] Clarity (U) Clear Normal Clear Comment on above: Order Comment: MINOO CTOR TO SPECIFY Performed By: #### L 400.2010 #### Laboratory [address] [place], [address] Color (U) Yellow Normal Yellow Comment on above: Order Comment: MINOO CTOR TO SPECIFY Performed By: #### L 400.2010 #### Laboratory [address] [place], [address] GLUCOSE, UR 100 mg/dl Abnormal Normal Comment on above: Order Comment: MINOO CTOR TO SPECIFY Performed By: #### L 400.2010 #### Laboratory [address] [place], [address] KETONE UR Negative Normal Negative Comment on above: Order Comment: MINOO CTOR TO SPECIFY Performed By: #### L 400.2010 #### Laboratory [address] [place], [address] LEUK ESTERASE Negative Normal Negative Comment on above: Order Comment: MINOO CTOR TO SPECIFY Performed By: #### L 400.2010 #### Laboratory [address] [place], [address] Nitrite Ql (U) Negative Normal Negative Comment on above: Order Comment: MINOO CTOR TO SPECIFY Performed By: #### L 400.2010 #### Laboratory [address] [place], [address] OCCULT BLOOD-UR Negative Normal Negative Comment on above: Order Comment: MINOO CTOR TO SPECIFY Performed By: #### L 400.2010 #### Laboratory [address] [place], [address] pH UR 6.5 Normal 5.0 - 8.0 Comment on above: Order Comment: MINOO CTOR TO SPECIFY Performed By: #### L 400.2010 #### Laboratory [address] [place], [address] PROT DIPSTX 15 mg/dl Abnormal Negative Comment on above: Order Comment: MINOO CTOR TO SPECIFY Performed By: #### L 400.2010 #### Laboratory [address] [place], [address] SP.GR. DIPSTX 1.015 Normal 1.002-1.030 Comment on above: Order Comment: MINOO CTOR TO SPECIFY Performed By: #### L 400.2010 #### Laboratory [address] [place], [address] UROBILI Normal Normal Normal Comment on above: Order Comment: MINOO CTOR TO SPECIFY Performed By: #### L 400.2010 #### Laboratory [address] [place], [address] Urine clarityOrdered By: Chapis March on 03-29-2025 Clarity (U) Clear Clear Urine color determinationOrd ered By: Patsy March on 03-29-2025 Color (U) Yellow Yellow Urine cultureOrdered By: Chapis March on 03-29-2025 Bacteria identified Cx Nom (U) Culture exhibits no growth. Urine glucose detectionOrder ed By: Patsy March on 03-29-2025 Glucose Ql (U) 100 mg/dl High Normal Urine leukocyte esterase det ection by dipstickOrdered By: Patsy March on 03-29-2025 Leukocyte esterase Test strip Ql (U) Negative Negative Urine pHOrdered By: Patsy March on 03-29-2025 pH (U) 6.5 [pH] 5.0 - 8.0 Urine protein measurement (m ass/volume)Ordered By: Patsy March on 03-29-2025 Protein (U) [Mass/Vol] 10.6 mg/dL 0.0-12.0 [facility] Urine protein/creatinine mas s ratioOrdered By: Patsy March on 03-29-2025 Protein/Creatinine (U) [Mass ratio] 181 mg/g CRE 0-200 Urine sediment bacteria coun t by microscopy (number/high power field)Ordered By: Eugene Morejon on 03-29-2025 Bacteria LM.HPF (Urine sed) [#/Area] 0 /[HPF] None Seen Urine specific gravity measu rementOrdered By: Patsy March on 03-29-2025 Specific gravity (U) [Rel density] 1.015 1.002-1.030 Urine urobilinogen measureme ntOrdered By: Patsy March on 03-29-2025 Urobilinogen Ql (U) Normal mg/dl Normal [facility] White blood cell (WBC) count Ordered By: Eugene Morejon on 03-29-2025 WBC (Bld) [#/Vol] 11.5 10*3/uL High 4.4-11.0 [facility] White blood cell (WBC) count Ordered By: Patsy March on 03-29-2025 WBC (Bld) [#/Vol] 10.8 10*3/uL 4.4-11.0 [facility] White blood cell countOrdere d By: Euegne Morejon on 03-29-2025 White blood cell count 0-5 SEEN /hpf 0-5 [facility] Bilirubin Test strip Ql (U)O rdered By: Magda Aragon on 03-17-2025 Bilirubin Ql (U) Negative Negative Ketones Test strip Ql (U)Ord ered By: Magda Aragon on 03-17-2025 Ketones Ql (U) Negative Negative Nitrite Test strip Ql (U)Ord ered By: Magda Aragon on 03-17-2025 Nitrite Ql (U) Negative Negative OB Biophysical Prof W/O NSTo n 03-17-2025 OB Biophysical Prof W/O NST [facility] Imaging Services [address] [place] [address] OB Biophysical Prof W/O NST MR#: [id number] Acct: [id number] Name: PAL NICHOLAS Rep #: [id number] : 2005 F 19 From: Gamaliel Jacobs MD PCP: Care Physician,No Primary Status: REG CLI Study: OB Biophysical Prof W/O NST Date of Exam: 02/25 07/21 Exam# [id number] Ordering Dr: Magda Aragon MD PROCEDURE: OB [...] No sonographic evidence of distress. Reading Location: [address] CC: Dr. 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 No LOF no bleeding. A couple broken variables with contractions. Sent for BPP RAJ WNL 13. BPP 01/01. Received a 1000 cc IVF. Now feeling movement. Reactive tracing Maternal Data Information AMARI Calculator Estimated Delivery Date Method Current WG Current Estimate 05/31/25 Manual 29w 2d Final AMARI: 05/31/25 Gestational age: 29+2 PFSH PFSH Medical History (Updated 03/17/25 @ 22:07 by [...] MD; No Primary Care Physician Signed Normal Protein Test strip Ql (U)Ord ered By: Magda Aragon on 03-17-2025 Protein Ql (U) Negative Negative Urinalysis, Routine (Dipstic k)on 03-17-2025 BILIRUBIN URINE Negative Normal Negative Comment on above: Order Comment: MINOO GALVANOR TO SPECIFY Performed By: #### L 400.2010 #### Laboratory [address] [place], [address] Clarity (U) Clear Normal Clear Comment on above: Order Comment: MINOO GALVANOR TO SPECIFY Performed By: #### L 400.2010 #### Laboratory [address] [place], [address] Color (U) Straw Normal Yellow Comment on above: Order Comment: COLLE CTOR TO SPECIFY Performed By: #### L 400.2010 #### Laboratory [address] [place], [address] GLUCOSE, UR Normal Normal Normal Comment on above: Order Comment: COLLE CTOR TO SPECIFY Performed By: #### L 400.2010 #### Laboratory [address] [place], [address] KETONE UR Negative Normal Negative Comment on above: Order Comment: COLLE CTOR TO SPECIFY Performed By: #### L 400.2010 #### Laboratory [address] [place], [address] LEUK ESTERASE Negative Normal Negative Comment on above: Order Comment: COLLE CTOR TO SPECIFY Performed By: #### L 400.2010 #### Laboratory [address] [place], [address] Nitrite Ql (U) Negative Normal Negative Comment on above: Order Comment: COLLE CTOR TO SPECIFY Performed By: #### L 400.2010 #### Laboratory [address] [place], [address] OCCULT BLOOD-UR Negative Normal Negative Comment on above: Order Comment: COLLE CTOR TO SPECIFY Performed By: #### L 400.2010 #### Laboratory [address] [place], [address] pH UR 6.0 Normal 5.0 - 8.0 Comment on above: Order Comment: COLLE CTOR TO SPECIFY Performed By: #### L 400.2010 #### Laboratory [address] [place], [address] PROT DIPSTX Negative Normal Negative Comment on above: Order Comment: COLLE CTOR TO SPECIFY Performed By: #### L 400.2010 #### Laboratory [address] [place], [place], [address] SP.GR. DIPSTX 1.020 Normal 1.002-1.030 Comment on above: Order Comment: MINOO GALVANOR TO SPECIFY Performed By: #### L 400.2010 #### Laboratory [address] [place], [place], [address] UROBILI Normal Normal Normal Comment on above: Order Comment: MINOO GALVANOR TO SPECIFY Performed By: #### L 400.2010 #### Laboratory [address] [place], [place], [address] Urine clarityOrdered By: Jazmin Aragon on 03-17-2025 Clarity (U) Clear Clear Urine color determinationOrd ered By: Magda Aragon on 03-17-2025 Color (U) Straw Yellow Urine glucose detectionOrder ed By: Magda Aragon on 03-17-2025 Glucose Ql (U) Normal mg/dl Normal Urine leukocyte esterase det ection by dipstickOrdered By: Magda Aragon on 03-17-2025 Leukocyte esterase Test strip Ql (U) Negative Negative Urine pHOrdered By: Magda Aragon on 03-17-2025 pH (U) 6.0 [pH] 5.0 - 8.0 Urine specific gravity measu rementOrdered By: Magda Aragon on 03-17-2025 Specific gravity (U) [Rel density] 1.020 1.002-1.030 Urine urobilinogen measureme ntOrdered By: Magda Aragon on 03-17-2025 Urobilinogen Ql (U) Normal mg/dl Normal [facility] GLUCOSE GESTATIONAL, 1 HOURo n 03-15-2025 Glucose 1 Hr post Unsp challenge [Mass/Vol] 171 mg/dL Normal 74-[address] [facility] Comment on above: Order Comment: Speci men Type: BLOOD SPECIMEN Ordering Facility: [facility] Address: [address] [place] [address] Result Comment: [facility] Congress of Obstetricians and Gynecologists ([place]/Coustan) guidelines state gestational diabetes mellitus is present when 2 or more of the plasma glucose concentrations meet or exceed the following levels: fastin mg/dl, 1 hr: 180 mg/dl, 2 hr: 155 mg/dl, and 3 hr: 140 mg/dl. Performed By: #### G TGST1 #### [facility] CLIA [id number] [address] [place] [address] [place] GLUCOSE GESTATIONAL, 2 HOURo n 03-15-2025 Glucose 2 Hr post Unsp challenge [Mass/Vol] 148 mg/dL Normal 74-[address] [facility] Comment on above: Order Comment: Speci men Type: SWAB Ordering Facility: [facility] Address: [address] [place] [address] Result Comment: [facility] Congress of Obstetricians [employer] Gynecologists ([place]/Niko) guidelines state gestational diabetes mellitus is present when 2 or more of the plasma glucose concentrations meet or exceed the following levels: fastin mg/dl, 1 hr: 180 mg/dl, 2 hr: 155 mg/dl, and 3 hr: 140 mg/dl. Performed By: #### C VTV, BVAMP #### [facility] CLIA [id number] [address] [place] [address] [place] GLUCOSE GESTATIONAL, 3 HOURo n 03-15-2025 Glucose 3 Hr post Unsp challenge [Mass/Vol] 135 mg/dL Normal 74-[address] [facility] Comment on above: Order Comment: Speci men Type: BLOOD SPECIMENOrdering Facility: [facility] Address: [address] [place] [address] Result Comment: [facility] Congress of Obstetricians [employer]necologists (Ashish/Niko) guidelines state gestational diabetes mellitus is present when 2 or more of the plasma glucose concentrations meet or exceed the following levels: fastin mg/dl, 1 hr: 180 mg/dl, 2 hr: 155 mg/dl, and 3 hr: 140 mg/dl. Performed By: #### G TGST3 ####[facility] [id number] [place] [address] [place] GLUCOSE GESTATIONAL, FASTING on 03-15-2025 Glucose post fast [Mass/Vol] 88 mg/dL Normal 74-[address] [facility] Comment on above: Order Comment: Speci men Type: SWAB Ordering Facility: [facility] Address: [address] [place] [address] Result Comment: [facility] Congress of Obstetricians and Gynecologists (Ashish/Niko) guidelines state gestational diabetes mellitus is present when 2 or more of the plasma glucose concentrations meet or exceed the following levels: fastin mg/dl, 1 hr: 180 mg/dl, 2 hr: 155 mg/dl, and 3 hr: 140 mg/dl. Performed By: #### C VTV, BVAMP #### [facility] CLIA [id number] [address] [place] [address] [place] OB Triage Physician Noteon 1 OB Triage Physician Note [facility] Medical Records Department [address] [place] [address] OB Triage Physician Note 03/14/25 1247 MR#: [id number] Acct: [id number] Name: PAL NICHOLAS Rep #: [id number] : 2005 19 From: Patsy March CNM PCP: Care Physician,No Primary Status:DEP CLI Y Location: [facility] HPI - General General Date of Service: 03/13/25 HPI Narrative PAL NICHOLAS, is a 19 F who presents [ at 28w5d presents for decreased movement, tachycrdia and possible rupture of membranes. Has history of POTS and noticed tachycardia to 111. ] Maternal Data Information AMARI Calculator Estimated Delivery Date Method Current WG Current Estimate 05/31/25 Manual 28w 6d PFSH PFS Medical History (Updated 03/14/25 @ 12:49 by [...] NST D/C home 03/14/25 1249 Date Patsy LADD Cosigner Signature (if applicable): Date __ CC: HUMPHREY March; No Primary Care Physician Signed Normal ([facility]) Rupture Of Membraneson 03-13-2025 ROM Negative Normal Negative Comment on above: Result Comment: Amni otic fluid not present indicates No Rupture of Membranes at time of specimen collection. Performed By: #### L 205.1000 #### Laboratory [address] [place], [address] BACTERIAL VAGINOSIS NAATon 1 Lactobacillus crispatus+gasseri+jense anastasia + Gardnerella vaginalis + Atopobium vaginae rRNA JOHN+probe Ql (Vag fld) Not detected Normal Not detected [facility] Comment on above: Order Comment: Speci men Type: BLOOD SPECIMEN Ordering Facility: [facility] Address: [address] [place] [address] Performed By: #### G TGST1 #### [facility] CLIA [id number] [address] [place] [address] [place] PARVEEN/TRICHOMONAS NAATon 1 C. glabrata RNA JOHN+probe Ql (Vag fld) Not detected Normal Not detected [facility] Comment on above: Order Comment: Speci men Type: BLOOD SPECIMEN Ordering Facility: [facility] Address: [address] [place] [address] Performed By: #### G TGST1 #### [facility] CLIA [id number] [address] [place] [address] [place] Parveen sp DNA JOHN+probe Ql (Vag fld) Not detected Normal Not detected [facility] Comment on above: Order Comment: Speci men Type: BLOOD SPECIMEN Ordering Facility: [facility] Address: [address] [place] [address] Result Comment: The Parveen species group target includes C. albicans, C. tropicalis, C. parapsilosis, and C. dubliniensis. Performed By: #### G TGST1 #### [facility] CLIA [id number] [address] [place] [address] [place] T. vaginalis DNA JOHN+probe Ql (Unsp spec) Not detected Normal Not detected [facility] Comment on above: Order Comment: Speci men Type: BLOOD SPECIMEN Ordering Facility: [facility] Address: [address] [place] [address] Performed By: #### G TGST1 #### [id number] [address] [place] [address] [place] CBC panel Auto (Bld)on 03-11 Erythrocyte distribution width (RBC) [Ratio] 13.2 % Normal 11.5-15.[address] [facility] Comment on above: Order Comment: Speci men Type: BLOOD SPECIMEN Ordering Facility: [facility] Address: [address] [place] [address] Performed By: #### G TGST1 #### [facility] CLIA [id number] [address] [place] [address] [place] Hematocrit (Bld) [Volume fraction] 32.7 % Low 36.0-46.[address] [facility] Comment on above: Order Comment: Speci men Type: BLOOD SPECIMEN Ordering Facility: [facility] Address: [address] [place] [address] Performed By: #### G TGST1 #### [facility] CLIA [id number] [address] [place] [address] [place] Hemoglobin (Bld) [Mass/Vol] 11.7 g/dL Normal 11.5-15.[address] [facility] Comment on above: Order Comment: Speci men Type: BLOOD SPECIMEN Ordering Facility: [facility] Address: [address] [place] [address] Performed By: #### G TGST1 #### [id number] [address] [place] [address] [place] MCH (RBC) [Entitic mass] 31.7 pg Normal 26.0-34.[address] [facility] Comment on above: Order Comment: Speci men Type: BLOOD SPECIMEN Ordering Facility: [facility] Address: [address] [place] [address] Performed By: #### G TGST1 #### [facility] CLIA [id number] [address] [place] [address] [place] MCHC (RBC) [Mass/Vol] 35.8 g/dL Normal 30.5-36.0 [facility] Comment on above: Order Comment: Speci men Type: BLOOD SPECIMEN Ordering Facility: [facility] Address: [address] [place] [address] Performed By: #### G TGST1 #### [id number] [address] [place] [address] [place] MCV (RBC) [Entitic vol] 88.6 fL Normal 80.0-100.[address] [facility] Comment on above: Order Comment: Speci men Type: BLOOD SPECIMEN Ordering Facility: [facility] Address: [address] [place] [address] Performed By: #### G TGST1 #### [facility] CLIA [id number] [address] [place] [address] [place] Nucleated RBC (Bld) [#/Vol] 10*3/uL Normal <0.[address] [facility] Comment on above: Order Comment: Speci men Type: BLOOD SPECIMEN Ordering Facility: [facility] Address: [address] [place] [address] Performed By: #### G TGST1 #### [facility] CLIA [id number] [address] [place] [address] [place] Platelet mean volume (Bld) [Entitic vol] 9.5 fL Normal 9.0-12.[address] [facility] Comment on above: Order Comment: Speci men Type: BLOOD SPECIMEN Ordering Facility: [facility] Address: [address] [place] [address] Performed By: #### G TGST1 #### [facility] CLIA [id number] [address] [place] [address] [place] Platelets (Bld) [#/Vol] 244 10*3/uL Normal 150-[address] [facility] Comment on above: Order Comment: Speci men Type: BLOOD SPECIMEN Ordering Facility: [facility] Address: [address] [place] [address] Performed By: #### G TGST1 #### [facility] CLIA [id number] [address] [place] [address] [place] RBC (Bld) [#/Vol] 3.69 10*6/uL Low 3.90-5.20 [facility] Comment on above: Order Comment: Speci men Type: BLOOD SPECIMEN Ordering Facility: [facility] Address: [address] [place] [address] Performed By: #### G TGST1 #### [facility] CLIA [id number] [address] [place] [address] [place] WBC (Bld) [#/Vol] 11.16 10*3/uL High 3.70-11.00 [facility] Comment on above: Order Comment: Speci men Type: BLOOD SPECIMEN Ordering Facility: [facility] Address: [address] [place] [address] Performed By: #### G TGST1 #### [facility] CLIA [id number] [address] [place] [address] [place] GESTATIONAL GLUCOSE SCREEN, 1-HOUR, 50 GRAM, NON-FASTINGon 03-11-2025 Glucose [Mass/Vol] 152 mg/dL High 74-134 [facility] Comment on above: Order Comment: Speci men Type: SWAB Ordering Facility: [facility] Address: [address] [place] [address] Result Comment: [facility] Congress of Obstetricians and Gynecologists (Ashish/Niko) guidelines state a gestational diabetes mellitus positive screen is made, in women not previously diagnosed with overt diabetes, when the 1 hr plasma glucose level is equal to or above 140 mg/dL. The [facility] Public Area Supervisor and [facility] [employer] recommends a 135 mg/dL cutoff. Performed By: #### C VTV, BVAMP #### [facility] CLIA [id number] [address] [place], [place] [address] [address] [place] MYCOPLASMA GENITALIUM NAATon 03-11-2025 M. genitalium DNA JOHN+probe Ql (U) Not detected Normal Not detected [facility] Comment on above: Order Comment: Speci men Type: SWAB Ordering Facility: [facility] Address: [address] [place] [address] Performed By: #### C VTV, BVAMP #### [facility] CLIA [id number] [address] [place] [address] [place] Reagin and Treponema pallidu m IgG and IgM [Interp]on 03-11-2025 T. pallidum IgG+IgM IA Ql (S) Non-Reactive Normal Nonreactive [facility] Comment on above: Order Comment: Speci men Type: SWAB Ordering Facility: [facility] Address: [address] [place] [address] Performed By: #### C VTV, BVAMP #### [facility] CLIA [id number] [address] [place] [address] [place] Reagin+T pallidum IgG+IgM Se rPl-Impon 03-11-2025 Reagin and Treponema pallidum IgG and IgM [Interp] Cannot exclude recent Treponemal infection if specimen collected within 7-10 days after appearance of suspect lesions or 2-3 weeks after an exposure. Clinical correlation is required. Normal [facility] Comment on above: Order Comment: Speci men Type: SWAB Ordering Facility: [facility] Address: [address] [place] [address] Performed By: #### C VTV, BVAMP #### [facility] CLIA [id number] [address] [place] [address] [place] TYPE + SCREEN PRENATALon ABO O Normal [facility] Comment on above: Order Comment: Speci men Type: BLOOD SPECIMEN Ordering Facility: [facility] Address: [address] [place] [address] Performed By: #### G TGST1 #### [facility] [id number] [address] [place] [address] [place] Rh Nom (Bld) Negative Normal [facility] Comment on above: Order Comment: Speci men Type: BLOOD SPECIMEN Ordering Facility: [facility] Address: [address] [place] [address] Performed By: #### G TGST1 #### [facility] CLIA [id number] [address] [place] [address] OF [facility] TYPE AND SCREEN EXPIRATION 03/14/2025 23:[address] [facility] Comment on above: Order Comment: Destini thorpe Type: BLOOD SPECIMEN Ordering Facility: [facility] Address: [address] [place] [address] Performed By: #### G TGST1 #### [facility] CLIA [id number] [address] CNOVon 03-08-2025 CNOV Office Visit (AGCARDHWG) ---- SARAHY KAURPAL Garcia ([id number]) 3 F Date Time Provider Department 03/08/25 [...] is the provider ID). REFERRING PHYSICIAN: Lynnette Tapia [address] [address] CHIEF COMPLAINT: Abnormal EKG HISTORY OF PRESENT [...] of illicit drugs. 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 She has 1 other sibling. She is here in the office with her mom. Paternal grandfather suddenly at age 49. She stated the diagnosis of Myles-Danlos was made by a tricot knitting machine operator and administrative services specialist. She is not sure if she had [...] S1/S2; no murmurs, gallops, or rubs Abdomen: [place] distended. Nontender. EXTREMETIES: No peripheral edema. Grade [...] 01/18/2025 0. (more content not included)... Normal [facility] OB Triage Physician Noteon 0 02-23-2025 OB Triage Physician Note [facility] Medical Records Department [address] [place] [address] OB Triage Physician Note 02/23/252054 MR#: [id number] Acct: [id number] Name: PAL NICHOLAS Rep #: [id number] : 2005 19 From: Lester Phillips MD PCP: Care Physician,No Primary Status:REG CLI Y Location: [address] HPI - General General Date of Service: 02/23/25 HPI Narrative PAL NICHOLAS, is a 19 F who presents back pain, side pain and some contractions. Maternal Data Information AMARI Calculator Estimated Delivery Date Method Current WG Current Estimate 05/31/25 Manual 26w 1d PFSH [facility] Medical History (Updated 02/23/25 @ 20:56 [...] Phillips MD; No Primary Care Physician Signed [facility] 02-22-2025 [facility] Telephone (GYURWP) ---- PAL NICHOLAS ([id number]) 3 F Date Time Provider Department 02/22/25 KARI [place] During your visit today, we recorded the following information about you: Deep Owen RN 02/22/2025 11:09 AM Signed Called patient in regards to catheter supplies per request of Kari Nguyen MD P [facility] Clinical Pool; [facility] Schedulers Pool I placed an order [...] Encounter Status:Closed by DEEP OWEN on 02/22/25 [facility] CNOVon 02-18-2025 CNOV Office Visit (GYURSF) ---- PAL NICHOLAS ([id number]) 3 F Date Time Provider Department 02/18/25 11:30 AM KARI [place]ON During your visit today, we recorded the following information about you: Weight 80.8 kg Kari Johnston MD 02/18/2025 1:16 PM Signed Female Pelvic Medicine AND Reconstructive Surgery Consult Recording using [employer] software for draft documentation of the visit was discussed with the patient/authorized underwriting sales representative; all questions welcomed and answered. Patient/authorized underwriting sales representative agreed to proceed CHIEF COMPLAINT: Jolenelinette Radha Nicholas is a 19 year old female [...] Hematological: Nega (more content not included)... Normal [facility] 02-16-2025 [facility] Telephone (AKPOB) ---- PAL NICHOLAS ([id number]) 3 F Date Time Provider Department 02/16/25 [...] Encounter Status:Closed by CLEM SAAVEDRA on 02/16/25 Normal [facility] CNPNon 02-15-2025 CNPN Telephone (AKPOB) ---- PAL NICHOLAS ([id number]) 3 F Date Time Provider Department 02/15/25 CLEM SAAVEDRA AKPOB During your visit today, [...] Status:Closed by CLEM SAAVEDRA on 02/15/25 Normal [facility] Bacteria Ur Culton Bacteria identified Cx Nom (U) CULTURE, URINE: No growth (<100 CFU/ml) Normal [facility] Comment on above: Performed By: #### 6 30-4, 03874-0 #### [facility] CLIA [id number] [address] OF [facility] OB Triage Physician Noteon 0 02-13-2025 OB Triage Physician Note [facility] Medical Records Department [address] [place] [address] OB Triage Physician Note 02/13/25 2321 MR#: [id number] Acct: [id number] Name: PAL NICHOLAS Rep #: [id number] : 2005 19 From: Magda Aragon MD PCP: Care Physician,No Primary Status:DEP CLI Y Location: [facility] - General General Date of Service: 02/13/25 Chief Complaint: pain HPI Narrative PAL NICHOLAS, is a 19 F who presents with bladder pain and unable to void. Was in Triage at [facility] early and had straight cath [...] Keep referral to urogyn 02/14/252047 Date Magda Robertser Signature (if applicable): Date __ CC: Dr. Magda Aragon MD; No Primary Care Physician Signed Normal Urinalysis complete panel (U )on 02-13-2025 Bilirubin Ql (U) Negative Normal Negative [facility] Comment on above: Order Comment: Speci men Type: URINE SPECIMEN Ordering Facility: [facility] Address: [address] [place] [address] Performed By: #### 6 30-4, 05927-3 #### [facility] CLIA [id number] [address] Clarity (Unsp spec) Clear Normal Clear [facility] Comment on above: Order Comment: Speci men Type: URINE SPECIMEN Ordering Facility: [facility] Address: [address] [place] [address] Performed By: #### 6 30-4, 16512-9 #### [facility] CLIA [id number] [address] Color (U) Light Yellow Normal yellow [facility] Comment on above: Order Comment: Speci men Type: URINE SPECIMEN Ordering Facility: [facility] Address: [address] [place] [address] Performed By: #### 6 30-4, 73935-1 #### [facility] CLIA [id number] [address] Epithelial cells LM.HPF (Urine sed) [#/Area] Few Abnormal None Seen [facility] Comment on above: Order Comment: Speci men Type: URINE SPECIMEN Ordering Facility: [facility] Address: [address] [place] [address] Performed By: #### 6 30-4, 69219-2 #### [facility] CLIA [id number] [address] [place] Glucose Test strip (U) [Mass/Vol] Negative Normal Trace, Negative [facility] Comment on above: Order Comment: Speci men Type: URINE SPECIMEN Ordering Facility: [facility] Address: [address] [place] [address] Performed By: #### 6 30-4, 37072-7 #### [facility] CLIA [id number] [address] [place] Hemoglobin Ql (U) Negative Normal Negative, Trace [facility] Comment on above: Order Comment: Speci men Type: URINE SPECIMEN Ordering Facility: [facility] Address: [address] [place] [address] Performed By: #### 6 30-4, 10281-1 #### [facility] CLIA [id number] [address] OF [place] Ketones Ql (U) Negative Normal Negative, Trace [facility] Comment on above: Order Comment: Speci men Type: URINE SPECIMEN Ordering Facility: [facility] Address: [address] [place] [address] Performed By: #### 6 30-, 93613-0 #### [facility] CLIA [id number] [address] [place] Leukocyte esterase Test strip Ql (U) 75 Maryann/uL Abnormal Negative, 25 Maryann/uL [facility] Comment on above: Order Comment: Speci men Type: URINE SPECIMEN Ordering Facility: [facility] Address: [address] [place] [address] Performed By: #### 6 30-4, 55232-2 #### [facility] CLIA [id number] [address] [place] Nitrite Ql (U) Negative Normal Negative [facility] Comment on above: Order Comment: Speci men Type: URINE SPECIMEN Ordering Facility: [facility] Address: [address] [place] [address] Performed By: #### 6 30-4, 14843-5 #### [facility] CLIA [id number] [address] [place] pH (U) 7.0 [pH] Normal 5.0-8.0 [facility] Comment on above: Order Comment: Speci men Type: URINE SPECIMEN Ordering Facility: [facility] Address: [address] [place] [address] Performed By: #### 6 30-4, 33044-5 #### [facility] CLIA [id number] [address] Protein (U) [Mass/Vol] Negative Normal Trace , Negative [facility] Comment on above: Order Comment: Speci men Type: URINE SPECIMEN Ordering Facility: [facility] Address: [address] [place] [address] Performed By: #### 6 30-4, 36217-9 #### [facility] CLIA [id number] [address] STATES [facility] RBC LM.HPF (Urine sed) [#/Area] 0-3 /HPF Normal 0-3 /HPF [facility] Comment on above: Order Comment: Speci men Type: URINE SPECIMEN Ordering Facility: [facility] Address: [address] [place] [address] Performed By: #### 6 30-4, 34990-0 #### [facility] CLIA [id number] [address] Specific gravity (U) [Rel density] 1.019 Normal 1.005-1.030 [facility] Comment on above: Order Comment: Speci men Type: URINE SPECIMEN Ordering Facility: [facility] Address: [address] [place] [address] Performed By: #### 6 30-4, 66910-3 #### [facility] CLIA [id number] [address] Urobilinogen Ql (U) Normal Normal Normal [facility] Comment on above: Order Comment: Speci men Type: URINE SPECIMEN Ordering Facility: [facility] Address: [address] [place] [address] Performed By: #### 6 30-4, 23454-1 #### [facility] CLIA [id number] [address] [place] [address] [place] WBC LM.HPF (Urine sed) [#/Area] 11-25 /HPF Abnormal 0-5 /HPF [facility] Comment on above: Order Comment: Speci men Type: URINE SPECIMEN Ordering Facility: [facility] Address: [address] [place] [address] Performed By: #### 6 30-4, 99011-3 #### [facility] CLIA [id number] [address] [place] [address] [place] BACTERIAL VAGINOSIS NAATon 0 02-08-2025 Interpretation and review of laboratory results Normal [facility] Lactobacillus crispatus+gasseri+jense anastasia + Gardnerella vaginalis + Atopobium vaginae rRNA JOHN+probe Ql (Vag fld) Not detected Not detected [facility] Lactobacillus crispatus+gasseri+jense anastasia + Gardnerella vaginalis + Atopobium vaginae rRNA JOHN+probe Ql (Vag fld) Not detected Normal Not detected [facility] Comment on above: Order Comment: Speci men Type: SWAB Ordering Facility: [facility] Address: [address] [place] [address] Performed By: #### C VTV, BVAMP #### [facility] CLIA [id number] [address] [place] [address] [place] Bacteria Ur Culton Bacteria identified Cx Nom (U) CULTURE, URINE: No growth (<1,000 CFU/ml) Normal [facility] Comment on above: Performed By: #### 6 30-4 ####[facility] [id number] [place] [address] [place] PARVEEN/TRICHOMONAS NAATon 0 02-08-2025 C. glabrata RNA JOHN+probe Ql (Vag fld) Not detected Not detected [facility] Parveen sp DNA JOHN+probe Ql (Vag fld) Not detected Not detected [facility] Comment on above: The Parveen species group target includes C. albicans, C. tropicalis, C. parapsilosis, and C. dubliniensis. Interpretation and review of laboratory results Normal [facility] T. vaginalis DNA JOHN+probe Ql (Unsp spec) Not detected Not detected [facility] C. glabrata RNA JOHN+probe Ql (Vag fld) Not detected Normal Not detected [facility] Comment on above: Order Comment: Speci men Type: SWAB Ordering Facility: [facility] Address: [address] [place] [address] Performed By: #### C VTV, BVAMP #### [facility] CLIA [id number] [address] [place] [address] [place] Parveen sp DNA JOHN+probe Ql (Vag fld) Not detected Normal Not detected [facility] Comment on above: Order Comment: Speci men Type: SWAB Ordering Facility: [facility] Address: [address] [place] [address] Result Comment: The Parveen species group target includes C. albicans, C. tropicalis, C. parapsilosis, and C. dubliniensis. Performed By: #### C VTV, BVAMP #### [facility] CLIA [id number] [address] [place] [address] [place] T. vaginalis DNA JOHN+probe Ql (Unsp spec) Not detected Normal Not detected [facility] Comment on above: Order Comment: Speci men Type: SWAB Ordering Facility: [facility] Address: [address] [place] [address] Performed By: #### C VTV, BVAMP #### [facility] CLIA [id number] [address] [place] [address] [place] UA DIP, URINE (POC)on 2024 BILIRUBIN UA (POCT) Negative Negative [facility] CLARITY UA (POCT) Clear [facility] COLOR UA (POCT) Yellow [facility] GLUCOSE UA (POCT) Negative Negative mg/dL [facility] Hemoglobin Ql (U) Negative Negative [facility] KETONE UA (POCT) Negative Negative mg/dL [facility] LEUKOCYTES UA (POCT) Negative Negative [facility] NITRITE UA (POCT) Negative Negative [facility] PH UA (POCT) 7.0 4.5 - 8.[address] [facility] Protein Ql (U) Negative Negative mg/dL [facility] SPECIFIC GRAVITY UA (POCT) 1.010 1.005 - 1.[address] [facility] UROBILINOGEN UA (POCT) 0.2 Normal E.U./d L [facility] Location:[facility], [address], [place], [address] [facility] POINT OF CARE [facility] Urine Cultureon 02-06-2025 [facility] Culture exhibits no growth. Normal Comment on above: Performed By: #### L 300.8000, L501.4021, L100.0100 #### Laboratory [address] [place], [address] [facility] CNPN Telephone (OBGYWM) ---- PAL NICHOLAS ([id number]) 3 F Date Time Provider Department 02/05/25 [...] of fluid. Patient advised to go to [facility] for evaluation. [facility] notified. Jocelyne Black RN Allergies As of Date: 02/05/2025 (No Known Allergies) Date Reviewed: 02/02/2025 Reviewed by: Dee Argueta MA - Fully Assessed Reason for Visit: [...] Encounter Status:Closed by JOCELYNE BLACK on 02/05/25 [facility] OB Triage Physician Noteon 0 02-05-2025 OB Triage Physician Note [facility] Medical Records Department [address] [place] [address] OB Triage Physician Note 02/05/25 2667 MR#: [id number] Acct: [id number] Name: PAL NICHOLAS Rep #: [id number] : 2005 19 From: Lynnette Tapia CNM PCP: Care Physician,No Primary Status:REG CLI Y Location: [place] [address] HPI - General General Chief Complaint: ctx's [...] Suprapubic pain: (3) History of UTI: (4) [place] Zaragoza' contraction: COMMENT: cervix closed (5) 23 weeks gestation of : PLAN: Plan Positive movements Increase fluids CE - closed/ unchanged Continue taking Macrobid 100 mg Po BID- did not take dose today D/C home with follow up in office 02/05/25 7176 Date Lynnette Plotts CNM Cosigner Signature (if applicable): Date __ CC: CNM Lynnette Plotts; No Primary Care Physician Signed Normal Urine cultureOrdered By: Benjamin Corley on 02-05-2025 Bacteria identified Cx Nom (U) Culture exhibits no growth. Bilirubin Test strip Ql (U)O rdered By: Ramakrishna Corley on 02-04-2025 Bilirubin Ql (U) Negative Negative Ketones Test strip Ql (U)Ord ered By: Ramakrishna Corley on 02-04-2025 Ketones Ql (U) Negative Negative Nitrite Test strip Ql (U)Ord ered By: Ramakrishna Corley on 02-04-2025 Nitrite Ql (U) Negative Negative OB Triage Physician Noteon 0 02-04-2025 OB Triage Physician Note [facility] Medical Records Department [address] [place] [address] OB Triage Physician Note 02/04/25 1695 MR#: [id number] Acct: [id number] Name: PAL NICHOLAS Rep #: [id number] : 2005 19 From: Ramakrishna Corley DO PCP: Care Physician,No Primary Status:REG CLI Y Location: [place] [address]1 [facility] General Date of Service: 02/04/25 Chief Complaint: ctx's HPI Narrative PAL NICHOLAS, is a 19 F who presents ctx's. She states she has had contractions and abdominal pain for 1-2 weeks. Went to [facility] 2 weeks ago for this [...] vb or lof. No constipation or diarrhea. [facility] Medical History (Updated 02/05/25 @ 00:00 [...] (1) 23 weeks gestation of : (2) [place] Zaragoza' contraction: COMMENT: cervix closed PLAN: Cervix [...] DO; No Primary Care Physician Signed Normal Protein Test strip Ql (U)Ord ered By: Ramakrishna Corley on 02-04-2025 Protein Ql (U) Negative Negative Urinalysis, Routine (Dipstic k)on 02-04-2025 BILIRUBIN URINE Negative Normal Negative Comment on above: Order Comment: CLEAN CATCH Performed By: #### L 205.1000 #### Laboratory [address] [place], [address] Clarity (U) Clear Normal Clear Comment on above: Order Comment: CLEAN CATCH Performed By: #### L .1000 #### Laboratory [address] [place], [address] Color (U) Yellow Normal Yellow Comment on above: Order Comment: CLEAN CATCH Performed By: #### L 205.1000 #### Laboratory [address] [place], [address] GLUCOSE, UR Normal Normal Normal Comment on above: Order Comment: CLEAN CATCH Performed By: #### L 205.1000 #### Laboratory [address] [place], [address] KETONE UR Negative Normal Negative Comment on above: Order Comment: CLEAN CATCH Performed By: #### L 205.1000 #### Laboratory [address] [place], [address] LEUK ESTERASE 25 /ul Abnormal Negative Comment on above: Order Comment: CLEAN CATCH Performed By: #### L 205.1000 #### Laboratory [address] [place], [address] Nitrite Ql (U) Negative Normal Negative Comment on above: Order Comment: CLEAN CATCH Performed By: #### L 205.1000 #### Laboratory [address] [place], [address] OCCULT BLOOD-UR Negative Normal Negative Comment on above: Order Comment: CLEAN CATCH Performed By: #### L 205.1000 #### Laboratory [address] [place], [address] pH UR 6.5 Normal 5.0 - 8.0 Comment on above: Order Comment: CLEAN CATCH Performed By: #### L .1000 #### Laboratory [address] [place], [address] PROT DIPSTX Negative Normal Negative Comment on above: Order Comment: CLEAN CATCH Performed By: #### L .1000 #### Laboratory [address] [place], [address] SP.GR. DIPSTX 1.015 Normal 1.002-1.030 Comment on above: Order Comment: CLEAN CATCH Performed By: #### L .1000 #### Laboratory [address] [place], [address] UROBILI Normal Normal Normal Comment on above: Order Comment: CLEAN CATCH Performed By: #### L .1000 #### Laboratory [address] [place], [address] Urine Cultureon 02-04-2025 URC Culture exhibits no growth. Normal Comment on above: Performed By: #### L 300.8000, L501.4021, L100.0100 #### Laboratory [address] [place], [address] Urine clarityOrdered By: Benjamin Corley on 02-04-2025 Clarity (U) Clear Clear Urine color determinationOrd ered By: Ramakrishna Corley on 02-04-2025 Color (U) Yellow Yellow Urine cultureOrdered By: Benjamin Corley on 02-04-2025 Bacteria identified Cx Nom (U) Culture exhibits no growth. Urine glucose detectionOrder ed By: Ramakrishna Corley on 02-04-2025 Glucose Ql (U) Normal mg/dl Normal Urine leukocyte esterase det ection by dipstickOrdered By: Ramakrishna Corley on 02-04-2025 Leukocyte esterase Test strip Ql (U) 25 /ul High Negative Urine pHOrdered By: Ramakrishna mcpherson on 02-04-2025 pH (U) 6.5 [pH] 5.0 - 8.0 Urine specific gravity measu rementOrdered By: Ramakrishna Corley on 02-04-2025 Specific gravity (U) [Rel density] 1.015 1.002-1.030 Urine urobilinogen measureme ntOrdered By: Ramakrishna Corley on 02-04-2025 Urobilinogen Ql (U) Normal mg/dl Normal [facility] Bilirubin Test strip Ql (U)O rdered By: Magda Aragon on 02-02-2025 Bilirubin Ql (U) Negative Negative Ketones Test strip Ql (U)Ord ered By: Magda Aragon on 02-02-2025 Ketones Ql (U) Negative Negative Microscopic analysis of urin e for red blood cells (RBC)Ordered By: Magda Aragon on 02-02-2025 Microscopic analysis of urine for red blood cells (RBC) 0 SEEN /hpf 0-5 Mucus LM Ql (Urine sed)Order ed By: Magda Aragon on 02-02-2025 Mucus Ql (Urine sed) 0 SEEN /hpf [facility] Nitrite Test strip Ql (U)Ord ered By: Magda Aragon on 02-02-2025 Nitrite Ql (U) Negative Negative OB Triage Physician Noteon 0 02-02-2025 OB Triage Physician Note [facility] Medical Records Department [address] [place] [address] OB Triage Physician Note 02/02/25 2336 MR#: [id number] Acct: [id number] Name: PAL NICHOLAS Rep #: [id number] : 2005 19 From: Magda Aragon MD PCP: Care Physician,No Primary Status:REG CLI Y Location: [address] HPI - General General Date of [...] Angel Zaragoza' contraction: COMMENT: cervix closed 02/02/25 6598 Date Magda Aragon MD Cosigner Signature (if applicable): Date __ CC: Dr. Magda Aragon MD; No Primary Care Physician Signed Normal Protein Test strip Ql (U)Ord ered By: Magda Aragon on 02-02-2025 Protein Ql (U) 15 mg/dl High Negative Squamous epithelial cells de tection in urine sediment by light microscopyOrdered By: Magda Aragon on 02-02-2025 Epithelial cells.squamous LM Ql (Urine sed) 0-5 SEEN /hpf 5-10 UA DIP, URINE (POC)on 2024 BILIRUBIN UA (POCT) Negative Negative [facility] CLARITY UA (POCT) Clear [facility] COLOR UA (POCT) Yellow [facility] GLUCOSE UA (POCT) Negative Negative mg/dL [facility] Hemoglobin Ql (U) Negative Negative [facility] KETONE UA (POCT) Negative Negative mg/dL [facility] LEUKOCYTES UA (POCT) Negative Negative [facility] NITRITE UA (POCT) Negative Negative [facility] PH UA (POCT) 7.0 4.5 - 8.[address] [facility] Protein Ql (U) Negative Negative mg/dL [facility] SPECIFIC GRAVITY UA (POCT) 1.010 1.005 - 1.[address] [facility] UROBILINOGEN UA (POCT) 0.2 Normal E.U./d L [facility] Location:[facility], [address] [facility], [place], [place], [id number] [place] [address] POINT OF CARE [facility] Urinalysis, Completeon 02-02 EPI,SQUAMOUS 0-5 SEEN Normal 5-10 Comment on above: Order Comment: CLEAN CATCH Performed By: #### L 400.0001 #### Laboratory [address] [place], [place], [address] BACTERIA 0 SEEN Normal None Seen Comment on above: Order Comment: CLEAN CATCH Performed By: #### L 400.0001 #### Laboratory [address] [place], [place], [address] Mucus Ql (Urine sed) 0 SEEN Normal [facility] Comment on above: Order Comment: CLEAN CATCH Performed By: #### L 400.0001 #### Laboratory [address] [place], [address] RBC 0 SEEN Normal 0-5 Comment on above: Order Comment: CLEAN CATCH Performed By: #### L 400.0001 #### Laboratory [address] [place], [address] WBC 0 SEEN Normal 0-5 Comment on above: Order Comment: CLEAN CATCH Performed By: #### L 400.0001 #### Laboratory [address] [place], [address] BACTERIA Normal None Seen Comment on above: Order Comment: COLLE CTOR TO SPECIFY Result Comment: Canc elled via OM: Order edited - Discontinuing original order Performed By: #### L 400.0001 #### Laboratory [address] [place], [address] BILIRUBIN URINE Normal Negative Comment on above: Order Comment: COLLE CTOR TO SPECIFY Result Comment: Canc elled via OM: Order edited - Discontinuing original order Performed By: #### L 400.0001 #### Laboratory [address] [place], [address] Clarity (U) Normal Clear Comment on above: Order Comment: COLLE CTOR TO SPECIFY Result Comment: Canc elled via OM: Order edited - Discontinuing original order Performed By: #### L 400.0001 #### Laboratory [address] [place], [address] Color (U) Normal Yellow Comment on above: Order Comment: COLLE CTOR TO SPECIFY Result Comment: Canc elled via OM: Order edited - Discontinuing original order Performed By: #### L 400.0001 #### Laboratory [address] [place], [address] EPI,SQUAMOUS Normal 5-10 Comment on above: Order Comment: COLLE CTOR TO SPECIFY Result Comment: Canc elled via OM: Order edited - Discontinuing original order Performed By: #### L 400.0001 #### Laboratory [address] [place], [address] GLUCOSE, UR Normal Normal Comment on above: Order Comment: COLLE CTOR TO SPECIFY Result Comment: Canc elled via OM: Order edited - Discontinuing original order Performed By: #### L 400.0001 #### Laboratory [address] [place], [address] KETONE UR Normal Negative Comment on above: Order Comment: COLLE CTOR TO SPECIFY Result Comment: Canc elled via OM: Order edited - Discontinuing original order Performed By: #### L 400.0001 #### Laboratory [address] [place], [address] LEUK ESTERASE Normal Negative Comment on above: Order Comment: COLLE CTOR TO SPECIFY Result Comment: Canc elled via OM: Order edited - Discontinuing original order Performed By: #### L 400.0001 #### Laboratory [address] [place], [address] Mucus Ql (Urine sed) Normal [facility] Comment on above: Order Comment: COLLE CTOR TO SPECIFY Result Comment: Canc elled via OM: Order edited - Discontinuing original order Performed By: #### L 400.0001 #### Laboratory [address] [place], [address] Nitrite Ql (U) Normal Negative Comment on above: Order Comment: COLLE CTOR TO SPECIFY Result Comment: Canc elled via OM: Order edited - Discontinuing original order Performed By: #### L 400.0001 #### Laboratory [address] [place], [address] OCCULT BLOOD-UR Normal Negative Comment on above: Order Comment: COLLE CTOR TO SPECIFY Result Comment: Canc elled via OM: Order edited - Discontinuing original order Performed By: #### L 400.0001 #### Laboratory [address] [place], [address] pH UR Normal 5.0 - 8.0 Comment on above: Order Comment: COLLE CTOR TO SPECIFY Result Comment: Canc elled via OM: Order edited - Discontinuing original order Performed By: #### L 400.0001 #### Laboratory [address] [place], [address] PROT DIPSTX Normal Negative Comment on above: Order Comment: COLLE CTOR TO SPECIFY Result Comment: Canc elled via OM: Order edited - Discontinuing original order Performed By: #### L 400.0001 #### Laboratory [address] [place], [address] RBC Normal 0-5 Comment on above: Order Comment: COLLE CTOR TO SPECIFY Result Comment: Canc elled via OM: Order edited - Discontinuing original order Performed By: #### L 400.0001 #### Laboratory [address] [place], [address] SP.GR. DIPSTX Normal 1.002-1.030 Comment on above: Order Comment: COLLE CTOR TO SPECIFY Result Comment: Canc elled via OM: Order edited - Discontinuing original order Performed By: #### L 400.0001 #### Laboratory [address] [place], [address] UR Preservative Normal Comment on above: Order Comment: COLLE CTOR TO SPECIFY Result Comment: Canc elled via OM: Order edited - Discontinuing original order Performed By: #### L 400.0001 #### Laboratory [address] [place], [address] UROBILI Normal Normal Comment on above: Order Comment: COLLE CTOR TO SPECIFY Result Comment: Canc elled via OM: Order edited - Discontinuing original order Performed By: #### L 400.0001 #### Laboratory [address] [place], [place], [address] WBC Normal 0-5 Comment on above: Order Comment: COLLE CTOR TO SPECIFY Result Comment: Danita elled via OM: Order edited - Discontinuing original order Performed By: #### L 400.0001 #### Laboratory [address] [place], [place], [address] Urine clarityOrdered By: Jazmin Aragon on 02-02-2025 Clarity (U) Clear Clear Urine color determinationOrd ered By: Magda Aragon on 02-02-2025 Color (U) Straw Yellow Urine cultureOrdered By: Jazmin Aragon on 02-02-2025 Bacteria identified Cx Nom (U) Culture exhibits no growth. Bacteria identified Cx Nom (U) Culture exhibits no growth. Urine glucose detectionOrder ed By: Magda Aragon on 02-02-2025 Glucose Ql (U) Normal mg/dl Normal Urine leukocyte esterase det ection by dipstickOrdered By: Magda Aragon on 02-02-2025 Leukocyte esterase Test strip Ql (U) Negative Negative Urine pHOrdered By: Magda Aragon on 02-02-2025 pH (U) 7.0 [pH] 5.0 - 8.0 Urine sediment bacteria coun t by microscopy (number/high power field)Ordered By: Magda Aragon on 02-02-2025 Bacteria LM.HPF (Urine sed) [#/Area] 0 /[HPF] None Seen Urine specific gravity measu rementOrdered By: Magda Aragon on 02-02-2025 Specific gravity (U) [Rel density] 1.010 1.002-1.030 Urine urobilinogen measureme ntOrdered By: Magda Aragon on 02-02-2025 Urobilinogen Ql (U) Normal mg/dl Normal [facility] White blood cell countOrdere d By: Magda Aragon on 02-02-2025 White blood cell count 0 SEEN /hpf 0-5 [facility] BACTERIAL VAGINOSIS NAATon 0 01-20-2025 Interpretation and review of laboratory results Normal [facility] Lactobacillus crispatus+gasseri+jense anastasia + Gardnerella vaginalis + Atopobium vaginae rRNA JOHN+probe Ql (Vag fld) Not detected Not detected [facility] Lactobacillus crispatus+gasseri+jense anastasia + Gardnerella vaginalis + Atopobium vaginae rRNA JOHN+probe Ql (Vag fld) Not detected Normal Not detected [facility] Comment on above: Order Comment: Speci men Type: BLOOD SPECIMEN Ordering Facility: [facility] Address: [address] [place] [address] Performed By: #### G TGST1 #### [id number] [address] [place] [address] [place] PARVEEN/TRICHOMONAS NAATon 0 01-20-2025 C. glabrata RNA JOHN+probe Ql (Vag fld) Not detected Not detected [facility] Parveen sp DNA JOHN+probe Ql (Vag fld) Not detected Not detected [facility] Comment on above: The Parveen species group target includes C. albicans, C. tropicalis, C. parapsilosis, and C. dubliniensis. Interpretation and review of laboratory results Normal [facility] T. vaginalis DNA JOHN+probe Ql (Unsp spec) Not detected Not detected [facility] C. glabrata RNA JOHN+probe Ql (Vag fld) Not detected Normal Not detected [facility] Comment on above: Order Comment: Speci men Type: BLOOD SPECIMEN Ordering Facility: [facility] Address: [address] [place] [address] Performed By: #### G TGST1 #### [facility] [id number] [address] [place] [address] [place] Parveen sp DNA JOHN+probe Ql (Vag fld) Not detected Normal Not detected [facility] Comment on above: Order Comment: Speci men Type: BLOOD SPECIMEN Ordering Facility: [facility] Address: [address] [place] [address] Result Comment: The Parveen species group target includes C. albicans, C. tropicalis, C. parapsilosis, and C. dubliniensis. Performed By: #### G TGST1 #### [facility] CLIA [id number] [address] [place] [address] [place] T. vaginalis DNA JOHN+probe Ql (Unsp spec) Not detected Normal Not detected [facility] Comment on above: Order Comment: Speci men Type: BLOOD SPECIMEN Ordering Facility: [facility] Address: [address] [place] [address] Performed By: #### G TGST1 #### [facility] CLIA [id number] [address] [place] [address] [place] [id number] 01-19-2025 [id number] HNO ID: [id number] Author: ARMIDA NEVES RN Service: ? Author Type: Registered Nurse Type: [id number] Filed: 01/19/2025 03:42 Note Text: Precautions given, patient verbalized understanding. Instructed to call her OB doctor for follow up. Normal [facility] Bacteria Ur Culton Bacteria identified Cx Nom (U) CULTURE, URINE: No growth (<1,000 CFU/ml) Normal [facility] Comment on above: Performed By: #### H STNT #### [facility] CLIA [id number] [address] [place] CT ABD/PEL WO IVCONon 2024 CT ABD/PEL WO IVCON * * *Final Report* * * DATE OF EXAM: Jan 19 2025 12:50AM [facility] 0531 - CT ABD/PEL WO IVCON [...] noncontrast CT. Recommend correlation with obstetric ultrasound. Tree Specialist: HIEU Transcribe Date/Time: Jan 19 2025 2:36A Dictated by : BONIFACIO GAYLE DO This examination was interpreted and the report reviewed and electronically signed by: BONIFACIO GAYLE DO on Jan 19 2025 2:54AM EST [id number] Normal [facility] CBC panel Auto (Bld)on 01-18 Erythrocyte distribution width (RBC) [Ratio] 14.1 % Normal 11.5-15.0 [facility] Comment on above: Order Comment: Speci men Type: BLOOD SPECIMEN Ordering Facility: [facility] Address: [address] [place] [address] Performed By: #### 5 8410-2 #### [facility] CLIA [id number] [address] Hematocrit (Bld) [Volume fraction] 34.6 % Low 36.0-46.0 [facility] Comment on above: Order Comment: Speci men Type: BLOOD SPECIMEN Ordering Facility: [facility] Address: [address] [place] [address] Performed By: #### 5 8410-2 #### [facility] CLIA [id number] [address] OF [facility] Hemoglobin (Bld) [Mass/Vol] 11.5 g/dL Normal 11.5-15.5 [facility] Comment on above: Order Comment: Speci men Type: BLOOD SPECIMEN Ordering Facility: [facility] Address: [address] [place] [address] Performed By: #### 5 8410-2 #### [facility] CLIA [id number] [address] MCH (RBC) [Entitic mass] 31.0 pg Normal 26.0-34.0 [facility] Comment on above: Order Comment: Speci men Type: BLOOD SPECIMEN Ordering Facility: [facility] Address: [address] [place] [address] Performed By: #### 5 8410-2 #### [facility] CLIA [id number] [address] OF [facility] MCHC (RBC) [Mass/Vol] 33.2 g/dL Normal 30.5-36.0 [facility] Comment on above: Order Comment: Speci men Type: BLOOD SPECIMEN Ordering Facility: [facility] Address: [address] [place] [address] Performed By: #### 5 8410-2 #### [facility] CLIA [id number] [address] MCV (RBC) [Entitic vol] 93.3 fL Normal 80.0-100.0 [facility] Comment on above: Order Comment: Speci men Type: BLOOD SPECIMEN Ordering Facility: [facility] Address: [address] [place] [address] Performed By: #### 5 8410-2 #### [facility] CLIA [id number] [address] [place] Nucleated RBC (Bld) [#/Vol] 10*3/uL Normal <0.01 [facility] Comment on above: Order Comment: Speci men Type: BLOOD SPECIMEN Ordering Facility: [facility] Address: [address] [place] [address] Performed By: #### 5 8410-2 #### [facility] CLIA [id number] [address] [place] Platelet mean volume (Bld) [Entitic vol] 9.2 fL Normal 9.0-12.7 [facility] Comment on above: Order Comment: Speci men Type: BLOOD SPECIMEN Ordering Facility: [facility] Address: [facility] [place] [address] Performed By: #### 5 8410-2 #### [facility] CLIA [id number] [address] [place] Platelets (Bld) [#/Vol] 242 10*3/uL Normal 150-400 [facility] Comment on above: Order Comment: Speci men Type: BLOOD SPECIMEN Ordering Facility: [facility] Address: [address] [place] [address] Performed By: #### 5 8410-2 #### [facility] CLIA [id number] [address] [place] RBC (Bld) [#/Vol] 3.71 10*6/uL Low 3.90-5.20 [facility] Comment on above: Order Comment: Speci men Type: BLOOD SPECIMEN Ordering Facility: [facility] Address: [facility] [place] [address] Performed By: #### 5 8410-2 #### [facility] CLIA [id number] [address] [place] WBC (Bld) [#/Vol] 10.04 10*3/uL Normal 3.70-11.00 [facility] Comment on above: Order Comment: Destini thorpe Type: BLOOD SPECIMEN Ordering Facility: [facility] Address: [address], [place] [id number] Performed By: #### 5 8410-2 #### [facility] CLIA [id number] 1 [place] [id number] [place] [facility] CNPNon 01-18-2025 CNPN Telephone (OBGYWM) ---- PAL NICHOLAS ([id number]) 3 F Date Time Provider Department 01/18/25 LYNNETTE TAPIA OBGYWM During your visit today, we recorded the following information about you: Isaura Pereira RN 01/18/2025 8:46 AM Signed Breast pump order received from [employer]. To to sign. LEVON Hutson Lindsey, RN [...] Status:Closed by JOCELYNE BLACK on 01/20/25 Normal [facility] metabolic 2000 panelon 01-18-2025 Albumin [Mass/Vol] 3.8 g/dL Low 3.9-4.9 [facility] Comment on above: Order Comment: Destini thorpe Type: BLOOD SPECIMEN Ordering Facility: [facility] Address: [address] [place] [address] Performed By: #### H STNT #### [facility] CLIA [id number] 1 [place] [address] [place] ALP [Catalytic activity/Vol] 57 U/L Normal 34-123 [facility] Comment on above: Order Comment: Shannani maurilio Type: BLOOD SPECIMEN Ordering Facility: [facility] Address: [address] [place] [address] Performed By: #### H STNT #### [facility] CLIA [id number] [address] [place] ALT With P-5'-P [Catalytic activity/Vol] 11 U/L Normal 7-38 [facility] Comment on above: Order Comment: Speci men Type: BLOOD SPECIMEN Ordering Facility: [facility] Address: [address] [place] [address] Performed By: #### H STNT #### [facility] CLIA [id number] [address] [place] Anion gap [Moles/Vol] 12 mmol/L Normal 8-15 [facility] Comment on above: Order Comment: Speci men Type: BLOOD SPECIMEN Ordering Facility: [facility] Address: [address] [place] [address] Performed By: #### H STNT #### [facility] CLIA [id number] [address] AST With P-5'-P [Catalytic activity/Vol] 16 U/L Normal 13-35 [facility] Comment on above: Order Comment: Speci men Type: BLOOD SPECIMEN Ordering Facility: [facility] Address: [address] [place] [address] Performed By: #### H STNT #### [facility] CLIA [id number] [address] [place] Bilirubin [Mass/Vol] 0.3 mg/dL Normal 0.2-1.3 [facility] Comment on above: Order Comment: Speci men Type: BLOOD SPECIMEN Ordering Facility: [facility] Address: [address] [place] [address] Performed By: #### H STNT #### [facility] CLIA [id number] [address] OF [facility] Calcium [Mass/Vol] 8.6 mg/dL Normal 8.5-10.2 [facility] Comment on above: Order Comment: Speci men Type: BLOOD SPECIMEN Ordering Facility: [facility] Address: [address] [place] [address] Performed By: #### H STNT #### [facility] CLIA [id number] [address] [place] OF [facility] Chloride [Moles/Vol] 103 mmol/L Normal 98-107 [facility] Comment on above: Order Comment: Speci men Type: BLOOD SPECIMEN Ordering Facility: [facility] Address: [address] [place] [address] Performed By: #### H STNT #### [facility] CLIA [id number] [address] [place] CO2 [Moles/Vol] 22 mmol/L Normal 22-30 [facility] Comment on above: Order Comment: Speci men Type: BLOOD SPECIMEN Ordering Facility: [facility] Address: [address] [place] [address] Performed By: #### H STNT #### [facility] CLIA [id number] [address] [place] [address] [place] [facility] Creatinine [Mass/Vol] 0.50 mg/dL Low 0.58-0.96 [facility] Comment on above: Order Comment: Speci men Type: BLOOD SPECIMEN Ordering Facility: [facility] Address: [address] [place] [address] Performed By: #### H STNT #### [facility] CLIA [id number] [address] [place] eGFRcr SerPlBld CKD-EPI 2020 138 mL/min/1.73m??? Normal >=60 [facility] Comment on above: Order Comment: Speci men Type: BLOOD SPECIMEN Ordering Facility: [facility] Address: [address] [place] [address] Result Comment: Shilpa mated Glomerular Filtration Rate [...] GFR. Performed By: #### H STNT #### [facility] CLIA [id number] 1 [place] [address] [place] Glucose [Mass/Vol] 63 mg/dL Low 74-99 [facility] Comment on above: Order Comment: Destini thorpe Type: BLOOD SPECIMEN Ordering Facility: [facility] Address: [address] [place] [address] Result Comment: The [place] [employer] (ADA) provides guidance for cutoff [...] Standards of Medical Care in Diabetes 2016, [place] [employer]. Diabetes Care. 2016.39(Suppl 1). Performed By: #### H STNT #### [facility] CLIA [id number] 1 [place] [address] [place] Potassium [Moles/Vol] 3.8 mmol/L Normal 3.7-5.1 [facility] Comment on above: Order Comment: Destini thorpe Type: BLOOD SPECIMEN Ordering Facility: [facility] Address: [address] [place] [address] Performed By: #### H STNT #### [facility] CLIA [id number] 1 [place] [address] [place] Protein [Mass/Vol] 6.5 g/dL Normal 6.3-8.0 [facility] Comment on above: Order Comment: Destini thorpe Type: BLOOD SPECIMEN Ordering Facility: [facility] Address: [address] [place] [address] Performed By: #### H STNT #### [facility] LAB[facility]ATORY CLIA [id number] [address] Sodium [Moles/Vol] 137 mmol/L Normal 136-144 [facility] Comment on above: Order Comment: Destini thorpe Type: BLOOD SPECIMEN Ordering Facility: [facility] Address: [address] [place] [address] Performed By: #### H STNT #### [facility] CLIA [id number] [address] Urea nitrogen [Mass/Vol] 4 mg/dL Low 7- [facility] Comment on above: Order Comment: Specelsa thorpe Type: BLOOD SPECIMEN Ordering Facility: [facility] Address: [address] [place] [address] Performed By: #### H STNT #### [facility] CLIA [id number] [address] CNPNon 01-14-2025 CNPN Telephone (OBGYWM) ---- PAL NICHOLAS ([id number]) 3 F Date Time Provider Department 01/14/25 [...] Status:Closed by RAMAKRISHNA CORLEY on 01/14/[address] [facility] Examination level ultrasound on 01-12-2025 Indication [...] 12 oz EFW by: Hadlock (HC-AC-FL) Extended Clinical Social Work Aide 6.6 mm CM 6.6 mm 90% Nicolaides [...] normal LVOT view: normal 3-vessel view: normal 3-bmerhn-hjrkqxk view: normal Heart / Thorax Situs: situs [...] Read By: Tiffanie Barrios M.D. MATERNAL MEDICINE [facility] TSH W/REFLEX FT4on 5 TSH Qn 1.510 m[IU]/L Normal 0.510-4.[address] [facility] Comment on above: Order Comment: Speci men Type: BLOOD SPECIMENOrdering Facility: [facility] Address: [address] [place] [address] Result Comment: If t he patient is , TSH reference range varies by gestational period: First Trimester (weeks 9-12): 0.180-2.990 mIU/L Second Trimester: 0.110-3.980 mIU/L Third Trimester: 0.480-4.710 mIU/L Garry Rizvi et al. A Practical Approach for the Verifications and Determination of Site- and Trimester-Specific Reference Intervals for Thyroid Function tests in . Thyroid, 2019:29:3:412-420. Keagan E, et al. 2017 Guidelines of the Vincent[place] Thyroid Association for the Diagnosis and Management of Thyroid Disease during and the . Thyroid, 2017:27:3:315-389. Performed By: #### T SHRF ####[facility] LABCLIA [id number] [place] [address] [place] BACTERIAL VAGINOSIS NAATon 0 01-11-2025 Lactobacillus crispatus+gasseri+jense anastasia + Gardnerella vaginalis + Atopobium vaginae rRNA JOHN+probe Ql (Vag fld) Not detected Normal Not detected [facility] Comment on above: Order Comment: Speci men Type: BLOOD SPECIMEN Ordering Facility: [facility] Address: [address] [place] [address] Performed By: #### G TGST1 #### [facility] CLIA [id number] [address] [place] [address] [place] Bacteria Ur Culton 5 Bacteria identified Cx Nom (U) ORGANISM ID: 1 <10,000 CFU/ml Enterococcus faecalis Insignificant colony count. No further workup. Cephalosporins, clindamycin, and TMP-SMX are not effective for the treatment of enterococcal infections. Normal [facility] Comment on above: Performed By: #### 6 30-4 ####[facility] LABCLIA [id number] [place] [address] [place] PARVEEN/TRICHOMONAS NAATon 0 01-11-2025 C. glabrata RNA JOHN+probe Ql (Vag fld) Not detected Normal Not detected [facility] Comment on above: Order Comment: Speci men Type: BLOOD SPECIMEN Ordering Facility: [facility] Address: [address] [place] [address] Performed By: #### G TGST1 #### [facility] CLIA [id number] [address] [place] [address] OF [place] Parveen sp DNA JOHN+probe Ql (Vag fld) Not detected Normal Not detected [facility] Comment on above: Order Comment: Speci men Type: BLOOD SPECIMEN Ordering Facility: [facility] Address: [address] [place] [address] Result Comment: The Parveen species group target includes C. albicans, C. tropicalis, C. parapsilosis, and C. dubliniensis. Performed By: #### G TGST1 #### [facility] CLIA [id number] [address] [place] [address] T. vaginalis DNA JOHN+probe Ql (Unsp spec) Not detected Normal Not detected [facility] Comment on above: Order Comment: Speci men Type: BLOOD SPECIMEN Ordering Facility: [facility] Address: [address] [place] [address] Performed By: #### G TGST1 #### [facility] CLIA [id number] [address] [place] [address] [place] Examination level ultrasound on 01-11-2025 Radiology Study observation (narrative) [facility] UA DIP, URINE (POC)on 2024 BILIRUBIN UA (POCT) Negative Negative [facility] CLARITY UA (POCT) Clear [facility] COLOR UA (POCT) Yellow [facility] GLUCOSE UA (POCT) Negative Negative mg/dL [facility] Hemoglobin Ql (U) Negative Negative [facility] Interpretation and review of laboratory results Abnormal [facility] KETONE UA (POCT) Negative Negative mg/dL [facility] LEUKOCYTES UA (POCT) Trace Abnormal Negative [facility] NITRITE UA (POCT) Negative Negative [facility] PH UA (POCT) 6.0 4.5 - 8.[address] [facility] Protein Ql (U) Negative Negative mg/dL [facility] SPECIFIC GRAVITY UA (POCT) 1.020 1.005 - 1.[address] [facility] UROBILINOGEN UA (POCT) 0.2 Normal E.U./d L [facility] Location:[facility], [address], [place], [place], [id number] [place] [address] POINT OF CARE [facility] CNPNon 01-07-2025 CNPN Telephone (AKPRAD) ---- PAL NICHOLAS ([id number]) 3 F Date Time Provider Department 01/07/25 EJ RODRIGUEZ During your visit today, we recorded the following information about you: Ej Rodriguez MD 01/07/2025 12:41 PM Signed Patient was seen by resident but not by any attending administrative services specialist while in labor and delivery she is [...] Status:Closed by EJ RODRIGUEZ on 01/12/25 Normal [facility] Basic metabolic 2000 panelon 01-06-2025 Anion gap [Moles/Vol] 12 mmol/L Normal 8-15 [facility] Comment on above: Order Comment: Speci men Type: BLOOD SPECIMEN Ordering Facility: [facility] Address: [address] [place] [address] Performed By: #### H STNT, 49486-3 #### [facility] CLIA [id number] 1 [place] [address] [place] Calcium [Mass/Vol] 8.6 mg/dL Normal 8.5-10.2 [facility] Comment on above: Order Comment: Speci men Type: BLOOD SPECIMEN Ordering Facility: [facility] Address: [address] [place] [address] Performed By: #### H STNT, 56096-2 #### [facility] CLIA [id number] [address] [place] Chloride [Moles/Vol] 104 mmol/L Normal 98-107 [facility] Comment on above: Order Comment: Speci men Type: BLOOD SPECIMEN Ordering Facility: [facility] Address: [address] [place] [address] Performed By: #### H STNT, 51337-7 #### [facility] CLIA [id number] [address] [place] CO2 [Moles/Vol] 20 mmol/L Low 22-30 [facility] Comment on above: Order Comment: Speci men Type: BLOOD SPECIMEN Ordering Facility: [facility] Address: [address] [place] [address] Performed By: #### H STNT, 84211-1 #### [facility] CLIA [id number] 1 [place] [address] [place] Creatinine [Mass/Vol] 0.47 mg/dL Low 0.58-0.96 [facility] Comment on above: Order Comment: Speci men Type: BLOOD SPECIMEN Ordering Facility: [facility] Address: [address] [place] [address] Performed By: #### H STNT, 31129-2 #### [facility] CLIA [id number] 1 [place] [address] [place] eGFRcr SerPlBld CKD-EPI 2020 140 mL/min/1.73m??? Normal >=60 [facility] Comment on above: Order Comment: Speci men Type: BLOOD SPECIMEN Ordering Facility: [facility] Address: [address] [place] [address] Result Comment: Shilpa mated Glomerular Filtration Rate [...] actual GFR. Performed By: #### H STNT, 17429-3 #### [facility] CLIA [id number] 1 [place] [address] [place] Glucose [Mass/Vol] 78 mg/dL Normal 74-99 [facility] Comment on above: Order Comment: Destini thorpe Type: BLOOD SPECIMEN Ordering Facility: [facility] Address: [address] [place] [address] Result Comment: The Vincent[place] Diabetes Association (ADA) provides guidance for cutoff [...] Standards of Medical Care in Diabetes 2016, Vincent[place] Diabetes Association. Diabetes Care. 2016.39(Suppl 1). Performed By: #### H STNT, 61325-4 #### [facility] CLIA [id number] [address] [place] Potassium [Moles/Vol] 3.7 mmol/L Normal 3.7-5.1 [facility] Comment on above: Order Comment: Destini thorpe Type: BLOOD SPECIMEN Ordering Facility: [facility] Address: [address] [id number] Performed By: #### H STNT, 35025-9 #### [facility] CLIA [id number] 1 [place] [address] [place] Sodium [Moles/Vol] 136 mmol/L Normal 136-144 [facility] Comment on above: Order Comment: Speci men Type: BLOOD SPECIMEN Ordering Facility: [facility] Address: [address] [place] [address] Performed By: #### Ajay STNT, 70037-1 #### [facility] CLIA [id number] [address] Urea nitrogen [Mass/Vol] 8 mg/dL Normal 7-21 [facility] Comment on above: Order Comment: Speci men Type: BLOOD SPECIMEN Ordering Facility: [facility] Address: [address] [place] [address] Performed By: #### H STNT, 11803-8 #### [facility] CLIA [id number] [address] C. trachomatis+N. gonorrhoea e DNA JOHN+probe Ql (Unsp spec)on 01-06-2025 C. trachomatis rRNA JOHN+probe Ql (Unsp spec) Not detected Normal Not detected [facility] Comment on above: Order Comment: Speci men Type: SWAB Ordering Facility: [facility] Address: [address] [place] [address] Performed By: #### T RVAMP, 38848-6 #### [facility] CLIA [id number] [address] N. gonorrhoeae rRNA JOHN+probe Ql (Unsp spec) Not detected Normal Not detected [facility] Comment on above: Order Comment: Speci men Type: SWAB Ordering Facility: [facility] Address: [address] [place] [address] Performed By: #### T RVAMP, 85290-9 #### [facility] CLIA [id number] [address] CBC panel Auto (Bld)on 01-06 Erythrocyte distribution width (RBC) [Ratio] 13.7 % Normal 11.5-15.0 [facility] Comment on above: Order Comment: Speci men Type: BLOOD SPECIMEN Ordering Facility: [facility] Address: [address] [place] [address] Performed By: #### H STNT, 83524-6 #### [facility] CLIA [id number] [address] Hematocrit (Bld) [Volume fraction] 36.1 % Normal 36.0-46.0 [facility] Comment on above: Order Comment: Speci men Type: BLOOD SPECIMEN Ordering Facility: [facility] Address: [address] [place] [address] Performed By: #### H STNT, 51991-3 #### [facility] CLIA [id number] [address] OF [facility] Hemoglobin (Bld) [Mass/Vol] 12.3 g/dL Normal 11.5-15.5 [facility] Comment on above: Order Comment: Speci men Type: BLOOD SPECIMEN Ordering Facility: [facility] Address: [address] [place] [address] Performed By: #### H STNT, 50508-9 #### [facility] CLIA [id number] [address] MCH (RBC) [Entitic mass] 30.8 pg Normal 26.0-34.0 [facility] Comment on above: Order Comment: Speci men Type: BLOOD SPECIMEN Ordering Facility: [facility] Address: [address] [place] [address] Performed By: #### H STNT, 58823-9 #### [facility] CLIA [id number] [address] OF [facility] MCHC (RBC) [Mass/Vol] 34.1 g/dL Normal 30.5-36.0 [facility] Comment on above: Order Comment: Speci men Type: BLOOD SPECIMEN Ordering Facility: [facility] Address: [address] [place] [address] Performed By: #### H STNT, 01221-6 #### [facility] CLIA [id number] [address] OF [facility] MCV (RBC) [Entitic vol] 90.3 fL Normal 80.0-100.0 [facility] Comment on above: Order Comment: Speci men Type: BLOOD SPECIMEN Ordering Facility: [facility] Address: [address] [place] [address] Performed By: #### H STNT, 69531-0 #### [facility] CLIA [id number] [address] OF [place] Nucleated RBC (Bld) [#/Vol] 10*3/uL Normal <0.01 [facility] Comment on above: Order Comment: Speci men Type: BLOOD SPECIMEN Ordering Facility: [facility] Address: [address] [place] [address] Performed By: #### H STNT, 52403-9 #### [facility] CLIA [id number] [address] [place] Platelet mean volume (Bld) [Entitic vol] 9.3 fL Normal 9.0-12.7 [facility] Comment on above: Order Comment: Speci men Type: BLOOD SPECIMEN Ordering Facility: [facility] Address: [address] [place] [address] Performed By: #### H STNT, 49668-9 #### [facility] CLIA [id number] [address] OF [place] Platelets (Bld) [#/Vol] 248 10*3/uL Normal 150-400 [facility] Comment on above: Order Comment: Speci men Type: BLOOD SPECIMEN Ordering Facility: [facility] Address: [address] [place] [address] Performed By: #### H STNT, 47593-7 #### [facility] CLIA [id number] [address] [place] RBC (Bld) [#/Vol] 4.00 10*6/uL Normal 3.90-5.20 [facility] Comment on above: Order Comment: Speci men Type: BLOOD SPECIMEN Ordering Facility: [facility] Address: [address] [place] [address] Performed By: #### H STNT, 52280-2 #### [facility] CLIA [id number] 1 [place] [address] [place] WBC (Bld) [#/Vol] 10.26 10*3/uL Normal 3.70-11.00 [facility] Comment on above: Order Comment: Speci men Type: BLOOD SPECIMEN Ordering Facility: [facility] Address: [facility] [place] [address] Performed By: #### H STNT, 09229-2 #### [facility] CLIA [id number] [address] [place] [id number] [facility] CNPNon 01-06-2025 CNPN Telephone (OBGYWM) ---- PAL NICHOLAS ([id number]) 3 F Date Time Provider Department 01/06/25 [...] 01/05 telephone notes. Patient was seen at [facility] OB ED triage on 01/04. The diarrhea has resolved. Advised that she go back to [facility] as the office is closing. Patient asked for an appointment tomorrow instead because of transportation. No available appointments. Advised that she should be evaluated today in case she is having labor. Voiced understanding and believes she could have a friend take her. LEVON Driver Rebecca L, MD 01/07/2025 10:00 AM Signed If not improved work in any cancellations, go to [facility] for eval or schedule tomorrow if openings. MD Honey Begum Lindsey, RN 01/07/2025 10:36 AM Signed Patient was seen at [facility] last night. She has OB [...] affecting (HCC) *01/06/2025 19 weeks gestation of ([facility]) [Z3A.19] 01/06/2025 Pelvic pressure in (HCC) [O26.899, R1*01/06/2025 Encounter Status:Closed by KATHERINE ADDISONBOBO Rizvi on 01/07/25 [facility] 01-06-2025 CONSULT HNO ID: [id number] Author: EJ RODRIGUEZ MD Service: Nephrology Author [...] not on any medications. She moved from [place] and previously was on beta-luana however stopped [...] V4 PAST MEDICAL HISTORY Diagnosis Date Asthma ([facility]) 2012 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[facility]) POTS (postural orthostatic tachycardia syndrome) Recurrent [...] discharged so (more content not included)... Normal [facility] ECG COMPLETEon 01-06-2025 ECG COMPLETE Ventricular Rate : 79 BPM Atrial Rate : 79 BPM P-R Interval : 120 ms QRS Duration : 76 ms Q-T Interval : 350 ms QTC Calculation(Bazett) : 401 ms Calculated P [place] : -18 degrees Calculated R [place] : 148 degrees Calculated T [place] : -28 degrees NORMAL SINUS RHYTHM RIGHT AXIS DEVIATION LOW VOLTAGE QRS CANNOT RULE OUT INFERIOR INFARCT , AGE UNDETERMINED T WAVE ABNORMALITY, CONSIDER ANTERIOR ISCHEMIA ABNORMAL ECG WHEN COMPARED WITH ECG OF 05-Jan-2025 00:20, QRS AXIS SHIFTED RIGHT Confirmed by MD QUYEN, ANDREW ([id number]) on 01/07/2025 11:39:00 AM NAME : PAL NICHOLAS PID : [id number] : 2005 Gender : Female Race : ORD : [id number] Procedure Date : Jan 06 2025 20:38:59 Edit Date : Jan 07 2025 11:39:11 Diagnosis: NORMAL SINUS RHYTHM RIGHT AXIS DEVIATION LOW VOLTAGE QRS CANNOT RULE OUT INFERIOR INFARCT , AGE UNDETERMINED T WAVE ABNORMALITY, CONSIDER ANTERIOR ISCHEMIA ABNORMAL ECG WHEN COMPARED WITH ECG OF 05-Jan-2025 00:20, QRS AXIS SHIFTED RIGHT Confirmed by MD NAPIER VINAY ([id number]) on 01/07/2025 11:39:00 AM Test Reason : Chest Pain Location : [address] : [place] [address] Overread By : MD NAPIER VINAY Edited By : MD NAPIER VINAY Referred By : , Acquired by : ZUNILDA FULLER [facility] HIGH SENSITIVITY TROPONIN To n 01-06-2025 Troponin T.cardiac High sensitivity method [Mass/Vol] <6 Normal <12 [facility] Comment on above: Order Comment: Speci men Type: BLOOD SPECIMEN Ordering Facility: [facility] Address: [address] [place] [address] Performed By: #### H STNT #### [facility] CLIA [id number] [address] [place] Troponin T.cardiac High sensitivity method [Mass/Vol] <6 Normal <12 [facility] Comment on above: Order Comment: Speci men Type: BLOOD SPECIMEN Ordering Facility: [facility] Address: [address] [place] [address] Performed By: #### H STNT, 13195-1 #### [facility] CLIA [id number] [address] [place] TRICHOMONAS VAGINALIS NAATon 01-06-2025 T. vaginalis DNA JOHN+probe Ql (Unsp spec) Not detected Normal Not detected [facility] Comment on above: Order Comment: Speci men Type: SWAB Ordering Facility: [facility] Address: [address] [place] [address] Performed By: #### T RVAMP, 57491-8 #### [facility] CLIA [id number] [address] CBC panel Auto (Bld)on 01-05 Erythrocyte distribution width (RBC) [Ratio] 14.0 % Normal 11.5-15.0 [facility] Comment on above: Order Comment: Speci men Type: BLOOD SPECIMEN Ordering Facility: [facility] Address: [address] [place] [address] Performed By: #### 5 8410-2 #### [facility] CLIA [id number] [address] Hematocrit (Bld) [Volume fraction] 33.6 % Low 36.0-46.0 [facility] Comment on above: Order Comment: Speci men Type: BLOOD SPECIMEN Ordering Facility: [facility] Address: [address] [place] [address] Performed By: #### 5 8410-2 #### [facility] CLIA [id number] [address] Hemoglobin (Bld) [Mass/Vol] 11.4 g/dL Low 11.5-15.5 [facility] Comment on above: Order Comment: Speci men Type: BLOOD SPECIMEN Ordering Facility: [facility] Address: [address] [place] [address] Performed By: #### 5 8410-2 #### [facility] CLIA [id number] [address] MCH (RBC) [Entitic mass] 30.6 pg Normal 26.0-34.0 [facility] Comment on above: Order Comment: Speci men Type: BLOOD SPECIMEN Ordering Facility: [facility] Address: [address] [place] [address] Performed By: #### 5 8410-2 #### [facility] CLIA [id number] [address] [place] MCHC (RBC) [Mass/Vol] 33.9 g/dL Normal 30.5-36.0 [facility] Comment on above: Order Comment: Speci men Type: BLOOD SPECIMEN Ordering Facility: [facility] Address: [address] [place] [address] Performed By: #### 5 8410-2 #### [facility] CLIA [id number] [address] MCV (RBC) [Entitic vol] 90.1 fL Normal 80.0-100.0 [facility] Comment on above: Order Comment: Speci men Type: BLOOD SPECIMEN Ordering Facility: [facility] Address: [address] [place] [address] Performed By: #### 5 8410-2 #### [facility] CLIA [id number] [address] Nucleated RBC (Bld) [#/Vol] 10*3/uL Normal <0.01 [facility] Comment on above: Order Comment: Speci men Type: BLOOD SPECIMEN Ordering Facility: [facility] Address: [address] [place] [address] Performed By: #### 5 8410-2 #### [facility] CLIA [id number] [address] Platelet mean volume (Bld) [Entitic vol] 9.3 fL Normal 9.0-12.7 [facility] Comment on above: Order Comment: Speci men Type: BLOOD SPECIMEN Ordering Facility: [facility] Address: [address] [place] [address] Performed By: #### 5 8410-2 #### [facility] CLIA [id number] [address] Platelets (Bld) [#/Vol] 223 10*3/uL Normal 150-400 [facility] Comment on above: Order Comment: Speci men Type: BLOOD SPECIMEN Ordering Facility: [facility] Address: [facility] [place] [address] Performed By: #### 5 8410-2 #### [facility] CLIA [id number] [address] [place] RBC (Bld) [#/Vol] 3.73 10*6/uL Low 3.90-5.20 [facility] Comment on above: Order Comment: Destini thorpe Type: BLOOD SPECIMEN Ordering Facility: [facility] Address: [address] [place] [address] Performed By: #### 5 8410-2 #### [facility] CLIA [id number] [address] [place] OF [facility] WBC (Bld) [#/Vol] 10.50 10*3/uL Normal 3.70-11.00 [facility] Comment on above: Order Comment: Destini thorpe Type: BLOOD SPECIMEN Ordering Facility: [facility] Address: [address] [place] [address] Performed By: #### 5 8410-2 #### [facility] CLIA [id number] [address] OF [facility] CNPNon 01-05-2025 CNPN Telephone (AKPOB) ---- PAL NICHOLAS ([id number]) 3 Date Time Provider Department 01/05/25 JAYLA KELLER [...] by: Mariann Milton, LEVON - Fully Assessed Order(s):potassium chloride (K-TAB) 10 [...] up to 5 days. Encounter Status:Closed by JENNIFER KELLERRIE on 01/05/25 Normal [facility] CNPN Telephone (OBGYWM) ---- PAL NICHOLAS ([id number]) 3 F Date Time Provider Department 01/05/25 LESTER PHILLIPS OBGYWM During your visit today, we recorded the following information about you: Magda Hagen RN 01/05/2025 11:40 AM Signed 19w1d See 01/04 phone note. Patient went to [facility] ED last night. [place]'s notes available to review. Patient was prescribed [...] feel completely confident in the diagnosis from [place]. Please advise. LEVON Gardner Karmon, MD 01/05/2025 12:09 PM Signed Patient was seen by Mitesh Kulkarni while at [facility]. I recommend supportive care with [...] Status:Closed by JOCELYNE BLACK on 01/05/[address] [facility] Comprehensive metabolic 2000 panelon 01-05-2025 Albumin [Mass/Vol] 3.5 g/dL Low 3.9-4.9 [facility] Comment on above: Order Comment: Speci men Type: BLOOD SPECIMEN Ordering Facility: [facility] Address: [address] [place] [address] Performed By: #### 2 4323-8 #### [facility] CLIA [id number] [address] ALP [Catalytic activity/Vol] 46 U/L Normal 34-123 [facility] Comment on above: Order Comment: Speci men Type: BLOOD SPECIMEN Ordering Facility: [facility] Address: [address] [place] [address] Performed By: #### 2 4323-8 #### [facility] CLIA [id number] [address] OF [facility] ALT With P-5'-P [Catalytic activity/Vol] 13 U/L Normal 7-38 [facility] Comment on above: Order Comment: Speci men Type: BLOOD SPECIMEN Ordering Facility: [facility] Address: [address] [place] [address] Performed By: #### 2 4323-8 #### [facility] CLIA [id number] [address] Anion gap [Moles/Vol] 12 mmol/L Normal 8-15 [facility] Comment on above: Order Comment: Speci men Type: BLOOD SPECIMEN Ordering Facility: [facility] Address: [address] [place] [address] Performed By: #### 2 4323-8 #### [facility] CLIA [id number] [address] AST With P-5'-P [Catalytic activity/Vol] 16 U/L Normal 13-35 [facility] Comment on above: Order Comment: Speci men Type: BLOOD SPECIMEN Ordering Facility: [facility] Address: [address] [place] [address] Performed By: #### 2 4323-8 #### [facility] CLIA [id number] [address] [place] Bilirubin [Mass/Vol] 0.3 mg/dL Normal 0.2-1.3 [facility] Comment on above: Order Comment: Speci men Type: BLOOD SPECIMEN Ordering Facility: [facility] Address: [address] [place] [address] Performed By: #### 2 4323-8 #### [facility] CLIA [id number] [address] [place] Calcium [Mass/Vol] 9.1 mg/dL Normal 8.5-10.2 [facility] Comment on above: Order Comment: Speci men Type: BLOOD SPECIMEN Ordering Facility: [facility] Address: [address] [place] [address] Performed By: #### 2 4323-8 #### [facility] CLIA [id number] 1 [place] [address] [place] Chloride [Moles/Vol] 106 mmol/L Normal 98-107 [facility] Comment on above: Order Comment: Speci men Type: BLOOD SPECIMEN Ordering Facility: [facility] Address: [address] [place] [address] Performed By: #### 2 4323-8 #### [facility] CLIA [id number] [address] [place] CO2 [Moles/Vol] 21 mmol/L Low 22-30 [facility] Comment on above: Order Comment: Speci men Type: BLOOD SPECIMEN Ordering Facility: [facility] Address: [address] [place] [address] Performed By: #### 2 4323-8 #### [facility] CLIA [id number] 1 [place] [address] [place] Creatinine [Mass/Vol] 0.51 mg/dL Low 0.58-0.96 [facility] Comment on above: Order Comment: Speci men Type: BLOOD SPECIMEN Ordering Facility: [facility] Address: [address] [place] [address] Performed By: #### 2 4323-8 #### [facility] CLIA [id number] 1 [place] [address] [place] eGFRcr SerPlBld CKD-EPI 2020 137 mL/min/1.73m??? Normal >=60 [facility] Comment on above: Order Comment: Destini thorpe Type: BLOOD SPECIMEN Ordering Facility: [facility] Address: [address] [place] [address] Result Comment: Shilpa mated Glomerular Filtration Rate [...] GFR. Performed By: #### 2 4323-8 #### [facility] CLIA [id number] 1 [place] [address] [place] Glucose [Mass/Vol] 93 mg/dL Normal 74-99 [facility] Comment on above: Order Comment: Destini thorpe Type: BLOOD SPECIMEN Ordering Facility: [facility] Address: [address] [place] [address] Result Comment: The [place] Diabetes Association (ADA) provides guidance for cutoff [...] Standards of Medical Care in Diabetes 2016, [place] [employer]. Diabetes Care. 2016.39(Suppl 1). Performed By: #### 2 4323-8 #### [facility] CLIA [id number] 1 [place] [address] [place] Potassium [Moles/Vol] 3.4 mmol/L Low 3.7-5.1 [facility] Comment on above: Order Comment: Destini thorpe Type: BLOOD SPECIMEN Ordering Facility: [facility] Address: [address] [place] [address] Performed By: #### 2 4323-8 #### [facility] CLIA [id number] [address] [place] Protein [Mass/Vol] 5.8 g/dL Low 6.3-8.0 [facility] Comment on above: Order Comment: Speci men Type: BLOOD SPECIMEN Ordering Facility: [facility] Address: [address] [place] [address] Performed By: #### 2 4323-8 #### [facility] CLIA [id number] [address] Sodium [Moles/Vol] 139 mmol/L Normal 136-144 [facility] Comment on above: Order Comment: Speci men Type: BLOOD SPECIMEN Ordering Facility: [facility] Address: [address] [place] [address] Performed By: #### 2 4323-8 #### [facility] CLIA [id number] [address] [place] Urea nitrogen [Mass/Vol] 5 mg/dL Low 7-21 [facility] Comment on above: Order Comment: Speci men Type: BLOOD SPECIMEN Ordering Facility: [facility] Address: [address] [place] [address] Performed By: #### 2 4323-8 #### [facility] CLIA [id number] [address] [place] ECG COMPLETEon 01-05-2025 ECG COMPLETE Ventricular Rate : 97 BPM Atrial Rate : 97 BPM P-R Interval : 128 ms QRS Duration : 78 ms Q-T Interval : 344 ms QTC Calculation(Bazett) : 436 ms Calculated P [place] : 21 degrees Calculated R [place] : 23 degrees Calculated T [place] : -1 degrees NORMAL SINUS RHYTHM LOW VOLTAGE QRS BORDERLINE ECG NO PREVIOUS ECGS AVAILABLE Confirmed by MD NAPIER VINAY ([id number]) on 01/05/2025 12:13:29 PM NAME : PAL NICHOLAS PID : [id number] : 2005 Gender : Female Race : ORD : [id number] Procedure Date : Jan 05 2025 00:20:24 Edit Date : Jan 05 2025 12:13:36 Diagnosis: NORMAL SINUS RHYTHM LOW VOLTAGE QRS BORDERLINE ECG NO PREVIOUS ECGS AVAILABLE Confirmed by MD NAPIER VINAY ([id number]) on 01/05/2025 12:13:29 PM Test Reason : Dizziness Location : 200 : [facility] TR04 Overread By : MD NAPIER VINAY Edited By : MD NAPIER VINAY Referred By : , Acquired by : BEN GALVAN [facility] [place] 01-04-2025 CNPN Telephone (OBGYWM) ---- PAL NICHOLAS ([id number]) 3 F Date Time Provider Department 01/04/25 MAGDA ARAGON During your visit today, we recorded the following information about you: Maite Pteerson, LEVON 01/04/2025 3:29 PM Signed 19w0d Pt [...] this is staying the same since at [facility] 12/22/24. Last few weeks, Pt states extremely watery discharge. Went to [facility] at that time d/t having sharp cervical pain AND was treated for BV. Feels hydrated/Has been drinking liquid IV. Does have some burning on urination AND was seen on 12/30/24 in office-UA completed and TRACE protein and TRACE leukocytes. Advised Pt that since pain has worsened as the day as gone on that it would be best to go to [facility] triage to be evaluated as no appts available in office at this time. Pt did state she'd feel more comfortable going there and that is essentially why she called as she wanted to discuss with a nurse. Pt states her ride will not be able to pick her up for another 30 minutes, but Pt is agreeable to go to [place]. Dr. Aragon notified. Maite Peterson RN Allergies [...] Encounter Status:Closed by MAITE PETERSON on 01/21/25 [facility] PAL NICHOLAS ([id number]) 3 F Date Time Provider Department 12/29/24 [...] Status:Closed by KARINA ADDISON on 12/29/[address] [facility] BACTERIAL VAGINOSIS NAATon 0 12-28-2024 Lactobacillus crispatus+gasseri+jense anastasia + Gardnerella vaginalis + Atopobium vaginae rRNA JOHN+probe Ql (Vag fld) Not detected Normal Not detected [facility] Comment on above: Order Comment: Speci men Type: SWAB Ordering Facility: [facility] Address: [address] [place] [address] Performed By: #### C VTV, BVAMP #### [facility] CLIA [id number] [address] [place] [address] [place] PARVEEN/TRICHOMONAS NAATon 0 12-28-2024 C. glabrata RNA JOHN+probe Ql (Vag fld) Not detected Normal Not detected [facility] Comment on above: Order Comment: Speci men Type: SWAB Ordering Facility: [facility] Address: [address] [place] [address] Performed By: #### C VTV, BVAMP #### [facility] CLIA [id number] [address] [place] [address] [place] Parveen sp DNA JOHN+probe Ql (Vag fld) Not detected Normal Not detected [facility] Comment on above: Order Comment: Speci men Type: SWAB Ordering Facility: [facility] Address: [address] [place] [address] Result Comment: The Parveen species group target includes C. albicans, C. tropicalis, C. parapsilosis, and C. dubliniensis. Performed By: #### C VTV, BVAMP #### [facility] CLIA [id number] [address] [place] [address] [place] T. vaginalis DNA JOHN+probe Ql (Unsp spec) Not detected Normal Not detected [facility] Comment on above: Order Comment: Speci men Type: SWAB Ordering Facility: [facility] Address: [address] [place] [address] Performed By: #### C VTV, BVAMP #### [facility] CLIA [id number] [address] [place] [address] CNPNon 12-25-2024 CNPN Telephone (OBGYWM) ---- PAL NICHOLAS ([id number]) 3 F Date Time Provider Department 12/25/24 LYNNETTE TAPIA During your visit today, we recorded the following information about you: Isaura Pereira RN 12/25/2024 12:14 PM Signed Records received from [facility] in [place]. In chart prep binder for NOB appt on 12/28 with CP. Isaura Pereira RN Allergies As of Date: 12/25/2024 (No Known Allergies) Date Reviewed: 12/22/2024 Reviewed by: Tressa Winters DO - Fully Assessed Reason for Visit: Received Outside Medical Records [[id number]] Prescriptions as of 12/25/2024 - cyclobenzaprine (FLEXERIL) [...] Status:Closed by ISAURA PEREIRA on 12/25/[address] [facility] Urine Cultureon 12-24-2024 [facility] Mixed Gram Positive Organisms [place] Count 11,000-25,000 MIXC Mixed contaminants. Submit a new specimen if indicated. Normal Comment on above: Performed By: #### L 300.8000, L501.4021, L100.0100 #### [facility] [address] [place], [address] CNPNon 12-22-2024 CNPN Telephone (OBGYWM) ---- PAL NICHOLAS ([id number]) [birth year] F Date Time Provider Department 12/22/24 KARINA ADDISON OBGYWBarbara During your visit today, we recorded the following information about you: Magda Haegn RN 12/22/2024 12:30 PM Signed New [facility] OB seen at [facility] ER yesterday for pelvic pain. LMP 08/24/24. Approximately 17w1d. Patient calling because she still continues to have pelvic pain and pressure. Pain rate of 5-6. Taking Tylenol and using heat with no relief. States when she went to the ER her pain was 8-9. Denies LOF or VB. Per [facility] ER report: Discussed the case with on-call CRYSTALIZER OPERATOR for [facility] Dr. Aragon who states that she [...] medical records from her previous OB. [facility] ER report to to review. LEVON Gardner Rebecca L, MD 12/22/2024 3:41 PM Signed Agree w/ keep scheduled appointment. Make sure we have US results/labs for NOB. If infection ruled out and no bleeding would recommend stretching, tylenol and warm baths prn. Can return to ED if urgent issue or go to [place] at [facility] or see if there is [...] Status:Closed by MAGDA HAGEN on 12/22/[address] [facility] Absolute lymphocyte countOrd ered By: Aftab Mendoza on 12-21-2024 Lymphocytes Auto (Unsp spec) [#/Vol] 1.91 10*3/uL 0.83-4.51 Absolute neutrophil countOrd ered By: Aftab Mendoza on 12-21-2024 Neutrophils (Bld) [#/Vol] 7.6 10*3/uL 2.0-7.7 Anion gap in Serum or Plasma Ordered By: Aftab Mendoza on 12-21-2024 Anion gap [Moles/Vol] 13 mmol/L 5-15 [facility] Automated lymphocyte count a s percentage of total leukocytesOrdered By: Aftab Mendoza on 12-21-2024 Lymphocytes/100 WBC Auto (Unsp spec) 18.4 % Low 19-41 BUN/creatinine ratioOrdered By: Aftab Mendoza on 12-21-2024 Urea nitrogen/Creatinine [Mass ratio] 13.0 mg/mg 10-20 Basophil percentageOrdered B y: Aftab Mendoza on 12-21-2024 Basophils/100 WBC (Bld) 0.4 % 0-1 [facility] Bilirubin Test strip Ql (U)O rdered By: Aftab Mendoza on 12-21-2024 Bilirubin Ql (U) Negative Negative Bilirubin, totalOrdered By: Aftab Mendoza on 12-21-2024 Bilirubin [Mass/Vol] 0.26 mg/dL 0.00-1.30 [facility] CBC W/Diff, Automatedon 11-25 Absolute Lymph 1.91 X10 3/uL Normal 0.83-4.51 Comment on above: Performed By: #### L 300.8000, L501.4021, L100.0100 #### Laboratory [address] [place], [address] Absolute Neut 7.6 X10 3/uL Normal 2.0-7.7 Comment on above: Performed By: #### L 300.8000, L501.4021, L100.0100 #### Laboratory [address] [place], [address] Basophils/100 WBC (Bld) 0.4 % Normal 0-1 [facility] Comment on above: Performed By: #### L 300.8000, L501.4021, L100.0100 #### Laboratory [address] [place], [address] Eosinophils/100 WBC (Bld) 1.4 % Normal 0-5 Comment on above: Performed By: #### L 300.8000, L501.4021, L100.0100 #### [facility] [address] [place], [address] Erythrocyte distribution width (RBC) [Ratio] 14.0 % Normal 11.6-14.6 Comment on above: Performed By: #### L 300.8000, L501.4021, L100.0100 #### [facility] [address] [place], [address] Hematocrit (Bld) [Volume fraction] 36.3 % Low 37-47 Comment on above: Performed By: #### L 300.8000, L501.4021, L100.0100 #### [facility] [address] [place], [address] Hemoglobin (Bld) [Mass/Vol] 12.5 g/dL Normal 12.0-15.0 Comment on above: Performed By: #### L 300.8000, L501.4021, L100.0100 #### Laboratory [address] [place], [address] IG% 0.700 Normal 0.0-0.9 Comment on above: Result Comment: IG% - Immature Granulocytes (promyelocytes, myelocytes and metamyelocytes) > 1% indicates that a LEFT SHIFT is Present. Performed By: #### L 300.8000, L501.4021, L100.0100 #### [facility] [address] [place], [address] Lymphocytes/100 WBC (Bld) 18.4 % Low 19-41 Comment on above: Performed By: #### L 300.8000, L501.4021, L100.0100 #### [facility] [address] [place], [address] MCH (RBC) [Entitic mass] 30.3 pg Normal 27.0-32.0 Comment on above: Performed By: #### L 300.8000, L501.4021, L100.0100 #### [facility] [address] [place], [address] MCHC (RBC) [Mass/Vol] 34.4 g/dL Normal 32-36 [facility] Comment on above: Performed By: #### L 300.8000, L501.4021, L100.0100 #### Laboratory [address] [place], [address] MCV (RBC) [Entitic vol] 88.1 fL Normal 81-99 [facility] Comment on above: Performed By: #### L 300.8000, L501.4021, L100.0100 #### [facility] [address] [place], [address] Monocytes/100 WBC (Bld) 6.2 % Normal 0-10 [facility] Comment on above: Performed By: #### L 300.8000, L501.4021, L100.0100 #### Laboratory [address] [place], [address] Neutrophils/100 WBC (Bld) 72.9 % High 47-70 Comment on above: Performed By: #### L 300.8000, L501.4021, L100.0100 #### [facility] [address] [place], [address] Nucleated RBC (Bld) [#/Vol] 0 10*3/uL Normal 0-5 Comment on above: Performed By: #### L 300.8000, L501.4021, L100.0100 #### Laboratory [address] [place], [address] Platelet mean volume (Bld) [Entitic vol] 9.1 fL Normal 6.2-12.0 Comment on above: Performed By: #### L 300.8000, L501.4021, L100.0100 #### [facility] [address] [place], [address] Platelets (Bld) [#/Vol] 248 10*3/uL Normal 150-450 Comment on above: Performed By: #### L 300.8000, L501.4021, L100.0100 #### Laboratory [address] [place], [address] RBC (Bld) [#/Vol] 4.12 10*6/uL Low 4.2-5.4 [facility] Comment on above: Performed By: #### L 300.8000, L501.4021, L100.0100 #### Laboratory [address] [place], [address] RDW SD 44.6 fl High 35.1-43.9 Comment on above: Performed By: #### L 300.8000, L501.4021, L100.0100 #### Laboratory [address] [place], [address] WBC (Bld) [#/Vol] 10.4 10*3/uL Normal 4.4-11.0 [facility] Comment on above: Performed By: #### L 300.8000, L501.4021, L100.0100 #### Laboratory [address] [place], [address] Carbon dioxide, total [Moles /volume] in Central venous bloodOrdered By: Aftab Mendoza on 12-21-2024 CO2 [Moles/Vol] 20.6 mmol/L Low 21.0-32.0 Chloride assayOrdered By: Travis Mendoza on 12-21-2024 Chloride [Moles/Vol] 103 mmol/L 98-108 [facility] Comprehensive Metabolic Prof ilon 12-21-2024 Albumin [Mass/Vol] 3.8 g/dL Normal 3.5-5.0 [facility] Comment on above: Performed By: #### L 500.4050 #### Laboratory [address] [place], [address] Albumin/Globulin [Mass ratio] 1.5 {ratio} Normal 0.9-2.4 Comment on above: Performed By: #### L 500.4050 #### Laboratory [address] [place], [address] ALK PHOS 44 U/L Normal 35-104 Comment on above: Performed By: #### L 500.4050 #### Laboratory [address] [place], [address] ALT [Catalytic activity/Vol] 10 U/L Normal <=34 Comment on above: Performed By: #### L 500.4050 #### Laboratory [address] [place], [address] AST [Catalytic activity/Vol] 16 U/L Normal <=31 Comment on above: Performed By: #### L 500.4050 #### Laboratory [address] [place], [address] Bilirubin [Mass/Vol] 0.26 mg/dL Normal 0.00-1.30 [facility] Comment on above: Performed By: #### L 500.4050 #### Laboratory [address] [place], [address] BUN/CRE 13.0 RATIO Normal 10-20 Comment on above: Performed By: #### L 500.4050 #### Laboratory [address] [place], [address] Calcium [Mass/Vol] 9.0 mg/dL Normal 7.6-11.0 [facility] Comment on above: Performed By: #### L 500.4050 #### Laboratory [address] [place], [address] Chloride [Moles/Vol] 103 mmol/L Normal 98-108 [facility] Comment on above: Performed By: #### L 500.4050 #### Laboratory [address] [place], [address] CO2 [Moles/Vol] 20.6 mmol/L Low 21.0-32.0 Comment on above: Performed By: #### L 500.4050 #### Laboratory [address] [place], [address] Creatinine [Mass/Vol] 0.54 mg/dL Low 0.70-1.20 [facility] Comment on above: Performed By: #### L 500.4050 #### Laboratory [address] [place], [address] ECRCL 161.60 ml/min Normal 50-250 Comment on above: Performed By: #### L 500.4050 #### Laboratory [address] [place], [address] GAP 13 Normal 5-15 Comment on above: Performed By: #### L 500.4050 #### Laboratory [address] [place], [address] GFR/1.73 sq M.predicted among non-blacks MDRD (S/P/Bld) [Vol rate/Area] 135 mL/min/{1.73_m2} Normal >60 Comment on above: Result Comment: mL/m in/1.73m2 CKD-EPI Creatinine Equation (2020) Performed By: #### L 500.4050 #### Laboratory [address] [place], [address] Globulin (S) [Mass/Vol] 2.6 g/dL Normal 2.2-4.2 [facility] Comment on above: Performed By: #### L 500.4050 #### Laboratory [address] [place], [address] Glucose [Mass/Vol] 118 mg/dL High 70-99 [facility] Comment on above: Performed By: #### L 500.4050 #### Laboratory [address] [place], [address] Potassium [Moles/Vol] 3.8 mmol/L Normal 3.3-5.1 [facility] Comment on above: Performed By: #### L 500.4050 #### Laboratory [address] [place], [address] Sodium [Moles/Vol] 137 mmol/L Normal 133-145 [facility] Comment on above: Performed By: #### L 500.4050 #### Laboratory [address] [place], [place], [address] T PROT 6.5 g/dL Normal 5.9-8.4 Comment on above: Performed By: #### L 500.4050 #### Laboratory [address] [place], [place], [address] Urea nitrogen [Mass/Vol] 7 mg/dL Normal 4-19 Comment on above: Performed By: #### L 500.4050 #### Laboratory [address] [place], [place], [address] Emergency Department Summary on 12-21-2024 Emergency Department Summary [facility] Medical Records Department [address] [place] [address] Emergency Department Summary 12/21/24 MR#: [id number] Acct: [id number] Name: PAL NICHOLAS Rep #: [id number] : 2005 19 From: Aftab Mendoza DO [...] management. States that she is following with [facility]. Patient denies any vaginal spotting or bleeding. [facility] Medical History (Updated 12/21/24 @ 23:39 [...] of infection. Discussed the case with on-call CRYSTALIZER OPERATOR for [facility] Dr. Aragon who states that she [...] 72.9 H Lymph % (Auto) 18.4 L [place] % (Auto) 6.2 Eos % (Auto) 1.4 [...] Clarity Clear Urine pH 6.5 Ur Specific [place] 1.010 Urine Protein N (more content not included)... Normal Eosinophil percentageOrdered By: Aftab Mendoza on 12-21-2024 Eosinophils/100 WBC (Bld) 1.4 % 0-5 Erythrocyte distribution wid th ratioOrdered By: Aftab Mendoza on 12-21-2024 Erythrocyte distribution width (RBC) [Ratio] 14.0 % 11.6-14.6 Erythrocyte distribution wid th standard deviationOrdered By: Aftab Mendoza on 12-21-2024 Erythrocyte distribution width (RBC) [Ratio] 44.6 fl High 35.1-43.9 Glomerular filtration rate ( GFR) estimation/1.73 sq m using serum, plasma, or whole bOrdered By: Aftab Mendoza on 12-21-2024 GFR/1.73 sq M.predicted among non-blacks MDRD (S/P/Bld) [Vol rate/Area] 135 mL/min/{1.73_m2} >60 Comment on above: mL/min/1.73m2 CKD-EP I Creatinine Equation (2020) Hematocrit Auto (Bld) [Volum e fraction]Ordered By: Aftab Mendoza on 12-21-2024 Hematocrit (Bld) [Volume fraction] 36.3 % Low 37-47 Hemoglobin measurementOrdere d By: Aftab Mendoza on 12-21-2024 Hemoglobin (Bld) [Mass/Vol] 12.5 g/dL 12.0-15.0 Immature granulocytes/100 WB C Auto (Bld)Ordered By: Aftab Mendoza on 12-21-2024 Immature granulocytes/100 WBC (Bld) 0.700 % 0.0-0.9 Comment on above: IG% - Immature Granu locytes (promyelocytes, myelocytes and metamyelocytes) > 1% indicates that a LEFT SHIFT is Present. Ketones Test strip Ql (U)Ord ered By: Aftab Mendoza on 12-21-2024 Ketones Ql (U) Negative Negative Laboratory - Chemistry and C hemistry - challengeOrdered By: Aftab Mendoza on 12-21-2024 AST [Catalytic activity/Vol] 16 U/L <32 MCV (mean corpuscular volume ) determinationOrdered By: Aftab Mendoza on 12-21-2024 MCV (RBC) [Entitic vol] 88.1 fL 81-99 [facility] Mean corpuscular hemoglobin (MCH) determinationOrdered By: Aftab Mendoza on 12-21-2024 MCH (RBC) [Entitic mass] 30.3 pg 27.0-32.0 Mean corpuscular hemoglobin concentration (MCHC) determinationOrdered By: Aftab Mendoza on 12-21-2024 MCHC (RBC) [Mass/Vol] 34.4 g/dL 32-36 [facility] Mean platelet volume determi nationOrdered By: Aftab Mendoza 12-21-2024 Platelet mean volume (Bld) [Entitic vol] 9.1 fL 6.2-12.0 Microscopic analysis of urin e for red blood cells (RBC)Ordered By: Aftab Mendoza on 12-21-2024 Microscopic analysis of urine for red blood cells (RBC) 0-5 SEEN /hpf 0-5 Monocyte percentageOrdered B y: Aftab Mendoza on 12-21-2024 Monocytes/100 WBC (Bld) 6.2 % 0-10 [facility] Mucus LM Ql (Urine sed)Order ed By: Aftab Mendoza on 12-21-2024 Mucus Ql (Urine sed) 0 SEEN /hpf [facility] Neutrophil percentageOrdered By: Aftab Mendoza on 12-21-2024 Neutrophils/100 WBC (Bld) 72.9 % High 47-70 Nitrite Test strip Ql (U)Ord ered By: Aftab Mendoza on 12-21-2024 Nitrite Ql (U) Negative Negative Nucleated red blood cell per centageOrdered By: Aftab Mendoza on 12-21-2024 Nucleated RBC/100 WBC (Bld) [Ratio] 0 % 0-5 Platelet countOrdered By: Travis Mendoza on 12-21-2024 Platelets (Bld) [#/Vol] 248 10*3/uL 150-450 Potassium measurement (mass/ volume)Ordered By: Aftab Mendoza on 12-21-2024 Potassium (Unsp spec) [Mass/Vol] 3.8 mmol/L 3.3-5.1 Protein Test strip Ql (U)Ord ered By: Aftab Mendoza on 12-21-2024 Protein Ql (U) Negative Negative RBC Auto (Bld) [#/Vol]Ordere d By: Aftab Mendoza on 12-21-2024 RBC (Bld) [#/Vol] 4.12 10*6/uL Low 4.2-5.4 [facility] Serum creatinine measurement (mass/volume)Ordered By: Aftab Mendoza on 12-21-2024 Creatinine [Mass/Vol] 0.54 mg/dL Low 0.70-1.20 [facility] Serum globulin measurementOr dered By: Aftab Mendoza on 12-21-2024 Globulin (S) [Mass/Vol] 2.6 g/dL 2.2-4.2 [facility] Serum glucose measurement (m ass/volume)Ordered By: Aftab Mendoza on 12-21-2024 Glucose [Mass/Vol] 118 mg/dL High 70-99 [facility] Serum or plasma alanine penning[place] otransferase (ALT) measurementOrdered By: Aftab Mendoza on 12-21-2024 ALT [Catalytic activity/Vol] 10 U/L <35 Serum or plasma albumin mak urement (mass/volume)Ordered By: Aftab Mendoza on 12-21-2024 Albumin [Mass/Vol] 3.8 g/dL 3.5-5.0 [facility] Serum or plasma albumin/glob ulin mass ratioOrdered By: Aftab Mendoza on 12-21-2024 Albumin/Globulin [Mass ratio] 1.5 {ratio} 0.9-2.4 Serum or plasma alkaline cristofer sphatase measurementOrdered By: Aftab Mendoza on 12-21-2024 ALP [Catalytic activity/Vol] 44 U/L 35-104 Serum or plasma calcium mak urement (mass/volume)Ordered By: Aftab Mendoza on 12-21-2024 Calcium [Mass/Vol] 9.0 mg/dL 7.6-11.0 [facility] Serum or plasma urea nitroge n measurement (mass/volume)Ordered By: Aftab Mendoza on 12-21-2024 Urea nitrogen [Mass/Vol] 7 mg/dL 4-19 Sodium levelOrdered By: Chino Mendoza on 12-21-2024 Sodium [Moles/Vol] 137 mmol/L 133-145 [facility] Squamous epithelial cells de tection in urine sediment by light microscopyOrdered By: Aftab Mendoza on 12-21-2024 Epithelial cells.squamous LM Ql (Urine sed) 0-5 SEEN /hpf 5-10 Total proteinOrdered By: Gustavo Mendoza on 12-21-2024 Protein [Mass/Vol] 6.5 g/dL 5.9-8.4 [facility] Urinalysis, Completeon 07-28 -2025 EPI,SQUAMOUS 0-5 SEEN Normal 5-10 Comment on above: Order Comment: CLEAN CATCH Performed By: #### L [id number] #### Laboratory [address] [place], [address] RBC 0-5 SEEN Normal 0-5 Comment on above: Order Comment: CLEAN CATCH Performed By: #### L [id number] #### Laboratory [address] [place], [address] WBC 0-5 SEEN Normal 0-5 Comment on above: Order Comment: CLEAN CATCH Performed By: #### L [id number] #### Laboratory [address] [place], [address] BACTERIA 0 SEEN Normal None Seen Comment on above: Order Comment: CLEAN CATCH Performed By: #### L [id number] #### Laboratory [address] [place], [address] Mucus Ql (Urine sed) 0 SEEN Normal [facility] Comment on above: Order Comment: CLEAN CATCH Performed By: #### L [id number] #### Laboratory [address] [place], [address] Urine clarityOrdered By: Gustavo Mendoza on 12-21-2024 Clarity (U) Clear Clear Urine color determinationOrd ered By: Aftab Mendoza on 12-21-2024 Color (U) Yellow Yellow Urine cultureOrdered By: Gustavo Mendoza on 12-21-2024 Bacteria identified Cx Nom (U) Positive Abnormal Bacteria identified Cx Nom (U) Positive Abnormal Urine glucose detectionOrder ed By: Aftab Mendoza on 12-21-2024 Glucose Ql (U) Normal mg/dl Normal Urine leukocyte esterase det ection by dipstickOrdered By: Aftab Mendoza on 12-21-2024 Leukocyte esterase Test strip Ql (U) Negative Negative Urine pHOrdered By: Aftab valentin on 12-21-2024 pH (U) 6.5 [pH] 5.0 - 8.0 Urine sediment bacteria coun t by microscopy (number/high power field)Ordered By: Aftab Mendoza on 12-21-2024 Bacteria LM.HPF (Urine sed) [#/Area] 0 /[HPF] None Seen Urine specific gravity measu rementOrdered By: Aftab Mendoza on 12-21-2024 Specific gravity (U) [Rel density] 1.010 1.002-1.030 Urine urobilinogen measureme ntOrdered By: Aftab Mendoza on 12-21-2024 Urobilinogen Ql (U) Normal mg/dl Normal [facility] White blood cell (WBC) count Ordered By: Aftab Mendoza on 12-21-2024 WBC (Bld) [#/Vol] 10.4 10*3/uL 4.4-11.0 [facility] White blood cell countOrdere d By: Aftab Mendoza on 12-21-2024 White blood cell count 0-5 SEEN /hpf 0-5 CNPNon 12-01-2024 CNPN Telephone ([facility]) ---- PAL NICHOLAS ([id number]) 3 F Date Time Provider Department 12/01/24 NURSE ANALYSIS ANALYST [place]ad[facility] [place] [facility] During your visit today, we recorded the following information about you: Maria Alejandra Kay, RN 12/01/2024 8:37 AM Signed ----- Message from Rica Pendleton sent at 11/30/2024 4:05 PM EDT ----- Regarding: New/MELVIN OB 16 weeks Patient has been identified by name and Date of : Yes Patient: Pal Nicholas Date of : 2005 Provider for this encounter : [facility] ANALYSIS ANALYST WSTR Reason for call: New OB patient (16 weeks as of 11/30/24), [place] from [place] Was an appointment scheduled: No Reason for requesting visit (RFV/signs and symptoms/diagnosis) : Establish with OB at [facility] for continuation of care. Person calling: self Return call to: self Call patient at: [phone] (cell), it is OK to leave message Payor: ANTHEM / Plan: BLUE CARD PPO OOS / Product Type: PPO / Rica Maria Alejandra Felipe, LEVON 12/01/2024 8:39 AM Signed Call placed to patient to triage for new OB appt. No answer, will try later Maria Alejandra King RN, RN 12/01/2024 10:10 AM Signed Call placed to patient to triage for new OB appt. Left message for patient to call back Maria Alejandra King RN, RN 12/01/2024 10:34 AM Signed Name and verified. Patient wishes to transfer to [facility] for OB care. AMARI? 05/31/25 Gestational age? 14w1d Patient aware to sign up for My Chart so she can receive the "home health care respiratory therapist" messages. What facility is she transferring from? [place] ANALYSIS ANALYST in [place] Moving to [place] in 2 weeks and will be approx [...] would the patient like to establish in? [place] Will route this encounter to the desired office. Maria Alejandra Kay RN Allergies As of Date: 12/01/2024 (Not on File) Date Reviewed: Never Reviewed Reason for Visit: Care Coordination [3491] Problem List As Of Date: 12/01/2024 (None) Encounter Status:Closed by MAGDA HAGEN on 12/02/24 [facility] Vital Signs Date Time Vital Sign Value Performing Clinician Adina salmon 04-01-2025 17:50-0500 Diastolic blood pressure 75 mm[Hg] Dr. Aftab Mendoza DO Work Phone: 8(844)162-811142 [place] [address] 04-01-2025 17:50-0500 Heart rate 104 /min Dr. Aftab Mendoza DO Work Phone: 04-01-2025 17:50-0500 SaO2% (BldA) [Mass fraction] 98 % Dr. Aftab Mendoza DO Work Phone: 2(888)606-615642 [place] [address] 04-01-2025 17:50-0500 Systolic blood pressure 123 mm[Hg] Dr. Aftab Mendoza DO Work Phone: 4(682)139-249842 [place] [address] 04-01-2025 16:28-0500 Body height 170.[address] Aftab Mendoza DO Work Phone: 5(297)983-647346 [place] [address] 04-01-2025 16:28-0500 Body mass index (BMI) [Ratio] 30.8 kg/m2 Dr. Aftab Mendoza DO Work Phone: 3(000)931-148942 [place] [address] 04-01-2025 16:28-0500 Body weight 89.[address] Aftab Mendoza DO Work Phone: 5(616)877-175542 [place] [address] 04-01-2025 16:20-0500 Body temperature 99 [degF] Dr. Aftab Mendoza DO Work Phone: 6(468)512-343242 [place] [address] 04-01-2025 16:20-0500 Respiratory rate 14 /min Dr. Aftab Mendoza DO Work Phone: 0(069)195-821342 [place] [address] 03-29-2025 21:40-0500 Body temperature 98 [degF] Dr. Aftab Mendoza DO Work Phone: 4(440)181-897842 [place] [address] 03-29-2025 21:40-0500 Diastolic blood pressure 84 mm[Hg] Dr. Aftab Mendoza DO Work Phone: 03-29-2025 21:40-0500 Heart rate 102 /min Dr. Aftab Mendoza DO Work Phone: 03-29-2025 21:40-0500 Respiratory rate 18 /min Dr. Aftab Mendoza DO Work Phone: 03-29-2025 21:40-0500 SaO2% (BldA) [Mass fraction] 98 % Dr. Aftab Mendoza DO Work Phone: 03-29-2025 21:40-0500 Systolic blood pressure 136 mm[Hg] Dr. Aftab Mendoza DO Work Phone: 03-29-2025 19:32-0500 Body mass index (BMI) [Ratio] 31.1 kg/m2 Dr. Aftab Mendoza DO Work Phone: 03-29-2025 19:32-0500 Body weight 90.[address] Aftab Mendoza DO Work Phone: 03-29-2025 18:50-0500 Heart rate 119 /min Dr. Aftab Mendoza DO Work Phone: 03-29-2025 18:50-0500 SaO2% (BldA) [Mass fraction] 99 % Dr. Aftab Mendoza DO Work Phone: 03-29-2025 17:10-0500 Body mass index (BMI) [Ratio] 30.7 kg/m2 Dr. Aftab Mendoza DO Work Phone: 03-29-2025 17:10-0500 Body weight 88.[address] Aftab Mendoza DO Work Phone: 03-29-2025 16:59-0500 Body temperature 97.3 [degF] Dr. Aftab Mendoza DO Work Phone: 03-29-2025 16:59-0500 Respiratory rate 18 /min Dr. Aftab Mendoza DO Work Phone: 03-29-2025 16:57-0500 Diastolic blood pressure 93 mm[Hg] Dr. Aftab Mendoza DO Work Phone: 03-29-2025 16:57-0500 Systolic blood pressure 134 mm[Hg] Dr. Aftab Mendoza DO Work Phone: 03-17-2025 19:54-0400 Body temperature 98 [degF] Dr. Aftab Mendoza DO Work Phone: 6(544)941-849742 [place] [address] 03-17-2025 19:54-0400 Respiratory rate 16 /min Dr. Aftab Mendoza DO Work Phone: 03-17-2025 19:53-0400 Diastolic blood pressure 81 mm[Hg] Dr. Aftab Mendoza DO Work Phone: 9(169)933-638642 [place] [address] 03-17-2025 19:53-0400 Heart rate 87 /min Dr. Aftab Mendoza DO Work Phone: 2(974)445-858942 [place] [address] 03-17-2025 19:53-0400 Systolic blood pressure 134 mm[Hg] Dr. Aftab Mendoza DO Work Phone: 6(286)908-487542 [place] [address] 03-17-2025 19:50-0400 SaO2% (BldA) [Mass fraction] 98 % Dr. Aftab Mendoza DO Work Phone: 4(010)261-154142 [place] [address] 03-17-2025 18:35-0400 Body mass index (BMI) [Ratio] 30.2 kg/m2 Dr. Aftab Mendoza DO Work Phone: 03-17-2025 18:35-0400 Body weight 87.[address] Aftab Mendoza DO Work Phone: 2(948)251-736842 [place] [address] 03-13-2025 22:48-0400 Heart rate 79 /min Dr. Aftab Mendoza DO Work Phone: 7(659)639-738342 [place] [address] 03-13-2025 22:48-0400 SaO2% (BldA) [Mass fraction] 99 % Dr. Aftab Mendoza DO Work Phone: 0(387)458-626742 [place] [address] 03-13-2025 22:47-0400 Diastolic blood pressure 106 mm[Hg] Dr. Aftab Mendoza DO Work Phone: 6(339)011-200242 [place] [address] 03-13-2025 22:47-0400 Systolic blood pressure 170 mm[Hg] Dr. Aftab Mendoza DO Work Phone: 8(786)666-500742 [place] [address] 03-13-2025 17:01-0400 Body temperature 97.4 [degF] Dr. Aftab Mendoza DO Work Phone: 3(797)218-003142 [place] [address] 03-13-2025 17:01-0400 Respiratory rate 16 /min Dr. Aftab Mendoza DO Work Phone: 9(459)299-547942 [place] [address] 03-13-2025 16:54-0400 Body mass index (BMI) [Ratio] 29.5 kg/m2 Dr. Aftab Mendoza DO Work Phone: 2(971)795-856142 [place] [address] 03-13-2025 16:54-0400 Body weight 85.[address] Aftab Mendoza DO Work Phone: 7(067)432-411542 [place] [address] 02-23-2025 20:56-0400 Body height 170.[address] Aftab Mendoza DO Work Phone: 9(315)464-296642 [place] [address] 02-23-2025 20:56-0400 Body mass index (BMI) [Ratio] 28.5 kg/m2 Dr. Aftab Mendoza DO Work Phone: 2(035)329-435342 [place] [address] 02-23-2025 20:56-0400 Body weight 82.[address] Aftab Mendoza DO Work Phone: 7(777)107-163842 [place] [address] 02-13-2025 22:31-0400 Diastolic blood pressure 73 mm[Hg] Dr. Aftab Mendoza DO Work Phone: 1(951)542-161442 [place] [address] 02-13-2025 22:31-0400 Heart rate 95 /min Dr. Aftab Mendoza DO Work Phone: 5(685)545-535542 [place] [address] 02-13-2025 22:31-0400 Systolic blood pressure 120 mm[Hg] Dr. Aftab Mendoza DO Work Phone: 5(377)312-106442 [place] [address] 02-13-2025 22:07-0400 Body temperature 98.6 [degF] Dr. Aftab Mendoza DO Work Phone: 02-13-2025 22:07-0400 Respiratory rate 16 /min Dr. Aftab Mendoza DO Work Phone: 02-13-2025 21:53-0400 Body height 170.[address] Aftab Mendoza DO Work Phone: 02-13-2025 21:53-0400 Body mass index (BMI) [Ratio] 27.7 kg/m2 Dr. Aftab Mendoza DO Work Phone: 02-13-2025 21:53-0400 Body weight 80.[address] Aftab Mendoza DO Work Phone: 02-08-2025 10:33-0400 Body mass index (BMI) [Ratio] 27.57 kg/m2 Lynnette Tapia ANALYTICS SENIOR MANAGER.CNM Work Phone: [facility] 02-08-2025 10:33-0400 Body weight 79.83 kg Lynnette Tapia ANALYTICS SENIOR MANAGER.CNM Work Phone: [facility] 02-08-2025 10:33-0400 Diastolic blood pressure 74 mm[Hg] Lynnette Tapia ANALYTICS SENIOR MANAGER.CNM Work Phone: [facility] 02-08-2025 10:33-0400 Systolic blood pressure 126 mm[Hg] Lynnette Tapia ANALYTICS SENIOR MANAGER.CNM Work Phone: [facility] 02-05-2025 15:26-0400 Diastolic blood pressure 78 mm[Hg] Dr. Aftab Mendoza DO Work Phone: 02-05-2025 15:26-0400 Heart rate 80 /min Dr. Aftab Mendoza DO Work Phone: 02-05-2025 15:26-0400 Systolic blood pressure 124 mm[Hg] Dr. Aftab Mendoza DO Work Phone: 02-05-2025 15:10-0400 Body temperature 99 [degF] Dr. Aftab Mendoza DO Work Phone: 5(268)988-793642 [place] [address] 02-05-2025 15:10-0400 Respiratory rate 16 /min Dr. Aftab Mendoza DO Work Phone: 6(275)630-824342 [place] [address] 02-05-2025 15:10-0400 SaO2% (BldA) [Mass fraction] 96 % Dr. Aftab Mendoza DO Work Phone: 9(162)872-926242 [place] [address] 02-04-2025 22:37-0400 Body temperature 99.4 [degF] Dr. Aftab Mendoza DO Work Phone: 1(407)354-468242 [place] [address] 02-04-2025 22:37-0400 Diastolic blood pressure 84 mm[Hg] Dr. Aftab Mendoza DO Work Phone: 7(917)996-748146 [place] [address] 02-04-2025 22:37-0400 Heart rate 92 /min Dr. Aftab Mendoza DO Work Phone: 4(236)300-628142 [place] [address] 02-04-2025 22:37-0400 Respiratory rate 16 /min Dr. Aftab Mendoza DO Work Phone: 7(957)391-417242 [place] [address] 02-04-2025 22:37-0400 Systolic blood pressure 129 mm[Hg] Dr. Aftab Mendoza DO Work Phone: 8(870)362-826342 [place] [address] 02-04-2025 22:23-0400 Body height 170.[address] Aftab Mendoza DO Work Phone: 2(968)001-530542 [place] [address] 02-04-2025 22:23-0400 Body mass index (BMI) [Ratio] 27.2 kg/m2 Dr. Aftab Mendoza DO Work Phone: 0(824)708-090642 [place] [address] 02-04-2025 22:23-0400 Body weight 78.[address] Aftab Mendoza DO Work Phone: 3(033)536-407542 [place] [address] 02-02-2025 21:12-0400 Body temperature 98.8 [degF] Dr. Aftab Mendoza DO Work Phone: 7(268)252-408942 [place] [address] 02-02-2025 21:12-0400 Diastolic blood pressure 78 mm[Hg] Dr. Aftab Mendoza DO Work Phone: 02-02-2025 21:12-0400 Heart rate 109 /min Dr. Aftab Mendoza DO Work Phone: 02-02-2025 21:12-0400 Respiratory rate 16 /min Dr. Aftab Mendoza DO Work Phone: 02-02-2025 21:12-0400 SaO2% (BldA) [Mass fraction] 98 % Dr. Aftab Mendoza DO Work Phone: 02-02-2025 21:12-0400 Systolic blood pressure 123 mm[Hg] Dr. Aftab Mendoza DO Work Phone: 02-02-2025 21:07-0400 Body height 170.[address] Aftab Mendoza DO Work Phone: 02-02-2025 21:07-0400 Body mass index (BMI) [Ratio] 27.2 kg/m2 Dr. Aftab Mendoza DO Work Phone: 02-02-2025 21:07-0400 Body weight 78.[address] Aftab Mendoza DO Work Phone: 02-02-2025 14:04-0400 Body mass index (BMI) [Ratio] 27.41 kg/m2 Lester Phillips MD Work Phone: [facility] 02-02-2025 14:04-0400 Body weight 79.38 kg Lester Phillips MD Work Phone: [facility] 02-02-2025 14:04-0400 Diastolic blood pressure 78 mm[Hg] Lester Phillips MD Work Phone: [facility] 02-02-2025 14:04-0400 Systolic blood pressure 122 mm[Hg] Lester Phillips MD Work Phone: [facility] 01-20-2025 09:55-0400 Body mass index (BMI) [Ratio] 26.31 kg/m2 Karina Blanco MD Work Phone: [facility] 01-20-2025 09:55-0400 Body weight 76.2 kg Karina Blanco MD Work Phone: [facility] 01-20-2025 09:55-0400 Diastolic blood pressure 62 mm[Hg] Karina Blanco MD Work Phone: [facility] 01-20-2025 09:55-0400 Systolic blood pressure 116 mm[Hg] Karina Blanco MD Work Phone: [facility] 01-11-2025 15:00-0400 Body mass index (BMI) [Ratio] 25.34 kg/m2 Ramakrishna Corley MD Work Phone: [facility] 01-11-2025 15:00-0400 Body weight 73.39 kg Ramakrishna Corley MD Work Phone: [facility] 01-11-2025 15:00-0400 Diastolic blood pressure 70 mm[Hg] Ramakrishna Corley MD Work Phone: [facility] 01-11-2025 15:00-0400 Systolic blood pressure 110 mm[Hg] Ramakrishna Corley MD Work Phone: [facility] 12-28-2024 08:46-0400 Body height 170.2 cm Lynnette Tapia ANALYTICS SENIOR MANAGER.CNM Work Phone: [facility] 12-28-2024 08:46-0400 Body mass index (BMI) [Ratio] 24.9 kg/m2 Lynnette Plotts ANALYTICS SENIOR MANAGER.CNM Work Phone: [facility] 12-28-2024 08:46-0400 Body weight 72.12 kg Lynnette Plotts ANALYTICS SENIOR MANAGER.CNM Work Phone: [facility] 12-28-2024 08:46-0400 Diastolic blood pressure 74 mm[Hg] Lynnette Plotts ANALYTICS SENIOR MANAGER.CNM Work Phone: [facility] 12-28-2024 08:46-0400 Systolic blood pressure 114 mm[Hg] Lynnette Tapia ANALYTICS SENIOR MANAGER.CNM Work Phone: [facility] 12-22-2024 00:00-0400 Heart rate 81 /min Dr. Aftab Mendoza DO Work Phone: 12-22-2024 00:00-0400 Respiratory rate 16 /min Dr. Aftab Mendoza DO Work Phone: 12-22-2024 00:00-0400 SaO2% (BldA) [Mass fraction] 98 % Dr. Aftab Mendoza DO Work Phone: 12-21-2024 23:57-0400 Body temperature 97.4 [degF] Dr. Aftab Mendoza DO Work Phone: 12-21-2024 23:57-0400 Diastolic blood pressure 58 mm[Hg] Dr. Aftab Mendoza DO Work Phone: 12-21-2024 23:57-0400 Systolic blood pressure 110 mm[Hg] Dr. Aftab Mendoza DO Work Phone: 12-21-2024 20:27-0400 Body height 170.[address] Aftab Mendoza DO Work Phone: 12-21-2024 20:27-0400 Body mass index (BMI) [Ratio] 24.4 kg/m2 Dr. Aftab Mendoza DO Work Phone: 12-21-2024 20:27-0400 Body weight 70.[address] Aftab Mendoza DO Work Phone: Encounters Encounter Date Encounter Type Care Provider Facility Start: 04-02-2025 ambulatory KARINA Santos ity:[facility] Start: 04-01-2025 End: 04-01-2025 ambulatory No Primary Care Physician Facility: Start: 03-29-2025 End: 03-29-2025 Emergency department patient visit No Primary Care Physician Facility: Start: 03-29-2025 End: 03-29-2025 ambulatory Patsy March Facility: Start: 03-26-2025 End: 03-26-2025 ambulatory [facility] Facility:[facility] Start: 03-17-2025 End: 03-17-2025 ambulatory Magda Aragon Facility: Start: 03-15-2025 End: 03-15-2025 ambulatory [facility] Facility:[facility] Start: 03-13-2025 End: 03-13-[address] Aftab Mendoza DO Work Phone: [facility] Start: 03-13-2025 End: 03-13-2025 Patient encounter procedure Patsy March CNM -[facility] Work Phone: Start: 03-11-2025 End: 03-11-2025 ambulatory [facility] Facility:[facility] Start: 03-08-2025 End: 03-08-2025 ambulatory REGGIE MA Facility:[facility] Start: 02-23-2025 End: 02-23-[address] Aftab Mendoza DO Work Phone: -[facility] Start: 02-23-2025 End: 02-23-2025 Patient encounter procedure Patsy March CNBarbara -[facility] Work Phone: Start: 02-18-2025 End: 02-18-2025 ambulatory ALEXA DICKSON Facility:[facility] Start: 02-16-2025 End: 02-16-2025 ambulatory LESTER PHILLIPS Facility:[facility] Start: 02-13-2025 End: 02-13-[address] Aftab Mendoza DO Work Phone: -[facility] Start: 02-13-2025 End: 02-13-[address] Magda Aragon MD -[facility] Work Phone: Start: 02-13-2025 End: 02-13-2025 Emergency department patient visit ALEXA DICKSON Facility:[facility] Start: 02-08-2025 End: 02-08-2025 Patient encounter procedure Lynnette Roxiearmida ANALYTICS SENIOR MANAGER.CNM Work Phone: OB/Gynecology Comment on above: Encounter for superv ision of normal first in second trimester (HCC) (Primary Dx); 24 weeks gestation of (HCC); Screening for diabetes mellitus; Vaginal discharge during in second trimester (HCC) Start: 02-08-2025 End: 02-08-2025 ambulatory LYNNETTE TAPIA Facility:[facility] Start: 02-05-2025 End: 02-05-2025 Telephone encounter Lynnette Tapia ANALYTICS SENIOR MANAGER.CNM Work Phone: OB/Gynecology Comment on above: Contractions Start: 02-04-2025 End: 02-05-[address] Aftab Mendoza DO Work Phone: [facility] Start: 02-04-2025 End: 02-05-[address] Ramakrishna Corley DO -[facility] Work Phone: Start: 02-02-2025 End: 02-02-2025 Patient encounter procedure Lester Phillips MD Work Phone: OB/Gynecology Comment on above: Vaginal discharge du ring , antepartum (HCC) (Primary Dx) Start: 02-02-2025 End: 02-02-2025 ambulatory Ramakrishna Corley MD Work Phone: OB/Gynecology Comment on above: Change in discharge/ a lot of [place] zaragoza Start: 01-20-2025 End: 01-20-2025 Patient encounter procedure Karina Blanco MD Work Phone: OB/Gynecology Comment on above: Encounter for superv ision of normal first in second trimester (HCC) (Primary Dx); Vaginal discharge; 21 weeks gestation of (HCC); Abdominal pain affecting (HCC) Start: 01-20-2025 End: 01-20-2025 ambulatory KARINA BLANCO Facility:[facility] Start: 01-19-2025 End: 01-20-2025 ambulatory Ramakrishna Corley MD Work Phone: OB/Gynecology Start: 01-19-2025 End: 01-20-2025 Follow-up encounter Ramakrishna Corley MD Work Phone: OB/Gynecology Comment on above: Follow up from ER Start: 01-18-2025 End: 01-19-2025 Emergency department patient visit NUZHAT DARWINCAIT ZAMORANO Facility:[facility] Start: 01-18-2025 End: 01-20-2025 Telephone encounter Lynnette Tapia APRN.CNM Work Phone: OB/Gynecology Comment on above: Breast Pump Start: 01-14-2025 End: 01-14-2025 Telephone encounter Ramakrishna Corley MD Work Phone: OB/Gynecology Comment on above: Orders Start: 01-12-2025 End: 01-12-2025 ambulatory RAMAKRISHNA CORLEY Facility:[facility] Start: 01-11-2025 End: 01-11-2025 Patient encounter procedure Ramakrishna Corley MD Work Phone: OB/Gynecology Comment on above: Bacterial vaginosis (Primary Dx); 20 weeks gestation of (HCC); Burning with urination; Palpitations; Other fatigue; Weakness; Encounter for supervision of normal first in second trimester ([facility]) POTS (postural ortho static tachycardia syndrome) (Primary Dx); Visit for screening ([facility]); 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[facility]); Chronic hypertension affecting ([facility]) Start: 01-11-2025 End: 01-11-2025 ambulatory LYNNETTE TAPIA Facility:[facility] Start: 01-07-2025 End: 01-12-2025 Telephone encounter Ej Rodriguez MD Work Phone: [facility] Comment on above: Appointment Start: 01-06-2025 End: 01-06-2025 Emergency department patient visit ALEXA DICKSON Facility:[facility] Start: 01-06-2025 End: 01-07-2025 Telephone encounter Karina Addison APRN.CNM Work Phone: OB/Gynecology Comment on above: OB Vaginal Pressure Start: 01-05-2025 End: 01-05-2025 Telephone encounter Jayla Keller MD Work Phone: [facility] Comment on above: OB Pain Start: 01-04-2025 End: 01-05-2025 ambulatory NUZHATIrving ZAMORANO Facility:[facility] Start: 01-04-2025 End: 01-21-2025 Telephone encounter Magda Aragon MD Work Phone: OB/Gynecology Comment on above: Low back aching/cram ping pelvic region Start: 12-30-2024 End: 12-30-2024 [facility]ulatory [facility] Facility:[facility] Start: 12-28-2024 End: 12-28-2024 Patient encounter procedure Lynnette Roxiearmida ANALYTICS SENIOR MANAGER.CNM Work Phone: OB/Gynecology Comment on above: Visit for s creening (HCC) (Primary Dx); 18 weeks gestation of ([facility]); Encounter for supervision of high risk in second trimester, antepartum ([facility]); 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[facility]); POTS (postural orthostatic tachycardia syndrome); Cystic fibrosis carrier; Screening for STD (sexually transmitted disease); Abdominal pain during in second trimester ([facility]); Bacterial vaginosis Start: 12-28-2024 End: 12-28-2024 ambulatory [facility]YNNETTE [facility] Facility:[facility] Start: 12-25-2024 End: 12-25-2024 Telephone encounter Lynnette Tapia ANALYTICS SENIOR MANAGER.CNM Work Phone: OB/Gynecology Comment on above: Received Outside Med ical Records Start: 12-22-2024 End: 12-22-2024 ambulatory MARK FOREMAN Facility:[facility] Start: 12-22-2024 End: 12-22-2024 Telephone encounter Karina Addison MD Work Phone: OB/Gynecology Comment on above: OB Pelvic Pain Start: 12-21-2024 End: 12-22-2024 Emergency department patient visit Dr. Aftab Mendoza DO Work Phone: -Emergency Department Work Phone: Start: 12-01-2024 End: 12-02-2024 Telephone encounter [facility] Help Desk Support [facility] Work Phone: Obstetrics/Gynecology Comment on above: Care Coordination Procedures Date Procedure Procedure Detail Performing Clinician Start: 04-01-2025 Urnls dip stick/tabl et reagent auto microscopy Dr. Aftab Mendoza DO Work Phone: Start: 03-29-2025 D-dimer assay, quantitative Dr. Aftab Mendoza DO Work Phone: Comment on above: D-Dimer ELEVATED (>0 .49): Additional studies and clinicalassessments are indicated to conclude diagnosis of:Deep Vein Thrombosis (DVT) or Pulmonary Embolism (PE)CRITICAL VALUE CALLED TO OTIS FLORES05/29/242048 Mera Yañez.RESULTS READ BACK BY SAME. Start: 03-29-2025 End: 03-29-[address] Aftab Mendoza DO Work Phone: Start: 03-29-2025 Urnls dip stick/tabl et reagent auto microscopy Dr. Aftab Mendoza DO Work Phone: Start: 03-17-2025 Urnls dip stick/tabl et reagent auto microscopy Dr. Aftab Mendoza DO Work Phone: Start: 03-13-2025 Measurement of pH in vaginal fluid specimen using nitrazine yellow for detection of rupture of amniotic membrane Dr. Aftab Mendoza DO Work Phone: Comment on above: Amniotic fluid not p resent indicates No Rupture of FetalMembranes at time of specimen collection. Start: 03-11-2025 Antibody screen JACKIE TAPIA Comment on above: Order Comment: Speci men Type: BLOOD SPECIMEN Ordering Facility: [facility] Address: [address] [place] [id number] Performed By: #### G TGST1 #### [facility] CLIA [id number] [address] [place] [address] [place] Start: 02-08-2025 Urnls dip stick/tabl et rgnt auto w/o microscopy Lynnette Tapia ANALYTICS SENIOR MANAGER.CNM Work Phone: Start: 02-08-2025 BACTERIAL VAGINOSIS NAAT Lynnette Tapia ANALYTICS SENIOR MANAGER.CNM Work Phone: Start: 02-08-2025 Iadna trichomonas va ginalis amplified probe tech Lynnette Tapia ANALYTICS SENIOR MANAGER.CNM Work Phone: Start: 02-04-2025 Urnls dip stick/tabl [...] DO Work Phone: Start: 01-20-2025 BACTERIAL VAGINOSIS KEI Blanco MD Work Phone: Start: 01-20-2025 Iadna trichomonas va ginalis amplified probe tech Karina Blanco MD Work Phone: Start: 01-11-2025 Us preg uterus after 1st trimest 05/27 gestation Lynnette Tapia ANALYTICS SENIOR MANAGER.CNM Work Phone: Start: 01-11-2025 Urnls dip stick/tabl [...] Activity Detail Author Start: 01-06-2026 GC (Gonorrhea) Scremoris yeng () GC (Gonorrhea) Screening () [facility] Start: 01-06-2026 Screening for Chlamy eva trachomatis Chlamydia Screening () [facility] Start: 04-05-2025 RSV Vaccine (1 - Ris k 1-dose series) RSV Vaccine (1 - Risk 1-dose series) [facility] Start: 04-01-2025 [facility] Start: 04-01-2025 Nonstress test Start: 04-01-2025 Obstetric monitoring [facility] Start: 04-01-2025 Vital signs measurements Start: 04-01-2025 [facility] Start: 04-01-2025 Patient encounter procedure [facility]istered [facility] Work Phone: Start: 03-29-2025 [facility] Start: 03-29-2025 [facility] Start: 03-29-2025 End: 03-29-2025 Emergency department patient visit Departed Emergency -Emergency Department Work Phone: Start: 03-29-2025 Nonstress test Start: 03-29-2025 Obstetric monitoring [facility] Start: 03-29-2025 Vital signs measurements Start: 03-29-2025 [facility] Start: 03-29-2025 End: 03-29-2025 Patient encounter procedure 31 weeks gestation of -[facility] Work Phone: Start: 03-29-2025 Urine culture Urine Culture Start: 03-17-2025 Ultrasonography for biophysical profile without non-stress testing OB Biophysical Prof W/O NST Start: 03-17-2025 Nonstress test Start: 03-17-2025 Obstetric monitoring [facility] Start: 03-17-2025 Vital signs measurements Start: 03-17-2025 [facility] Start: 03-17-2025 End: 03-17-2025 Patient encounter procedure 29 weeks gestation of -[facility] Work Phone: Start: 03-17-2025 Administration of intravenous fluids HYDRATION IV INFUSION INIT Start: 03-17-2025 Patient discharge [facility] Start: 03-13-2025 Nonstress test Start: 03-13-2025 Obstetric monitoring [facility] Start: 03-13-2025 Vital signs measurements Start: 03-13-2025 [facility] Start: 03-13-2025 Patient discharge [facility] Start: 03-11-2025 End: 03-11-2025 Patient encounter procedure [facility] Comment on above: Growth Growth/OB Start: 03-11-2025 End: 03-11-2025 ambulatory 03/11/2025 9:45 AM EDT Results Only [facility] [address] [place] [address] Glucose Test [facility] Comment on above: Glucose Test Start: 03-08-2025 End: 03-08-2025 Patient encounter procedure 03/08/2025 9:20 AM EDT Office Visit [facility] [address] [place], [place] [address] Reggie Ma MD [address] [facility] [address] [place], [place] [id number] est care, hx EDS and POTS, EKG non-specific ST-T wave abnormality, currently . MS/ EKG kk [facility] [place] Comment on above: est care, hx EDS and POTS, EKG non-specific ST-T wave abnormality, currently . MS/ EKG kk Start: 02-23-2025 Patient discharge [facility] Start: 02-13-2025 Nonstress test Start: 02-13-2025 Obstetric monitoring [facility] Start: 02-13-2025 Vital signs measurements Start: 02-13-2025 [facility] Start: 02-13-2025 Patient discharge [facility] Start: 02-08-2025 End: 05-10-2025 ANEMIA REFLEX PANEL ANEMIA REFLEX PANEL Lab Routine Encounter for supervision of normal first in second trimester (HCC) 24 weeks gestation of (HCC) Expected: 02/08/2025, Expires: 05/10/[address] [facility] Comment on above: Expected: 02/08/2025 , Expires: 05/10/2025 Start: 02-08-2025 End: 02-08-2026 GESTATIONAL GLUCOSE SCREEN, 1-HOUR, 50 GRAM, NON-FASTING GESTATIONAL GLUCOSE SCREEN, 1-HOUR, 50 GRAM, NON-FASTING Lab Routine Encounter for supervision of normal first in second trimester (HCC) 24 weeks gestation of (HCC) Screening for diabetes mellitus Expected: 02/08/2025, Expires: 02/08/2026 [facility] Work Phone: Comment on above: Expected: 02/08/2025 , Expires: 02/08/2026 Start: 02-08-2025 End: 02-08-2026 SYPHILIS TREPONEMAL W/REFLEX SYPHILIS TREPONEMAL W/REFLEX Lab Routine Encounter for supervision of normal first in second trimester (HCC) 24 weeks gestation of (HCC) Expected: 02/08/2025, Expires: 02/08/[address] [facility] Comment on above: Expected: 02/08/2025 , Expires: 02/08/2026 Start: 02-08-2025 End: 02-08-2025 Patient encounter procedure 02/08/2025 10:30 AM EDT Routine Office Visit OB/Gynecology [address] [place], [place] [address] Lynnette Tapia APRN.[facility] [address] [place] [address] LMP:08/24/24, New 1st OB 12/28/24 OB/Gynecology Comment on above: LMP:08/24/24, New 1st OB 12/28/24 Start: 02-05-2025 End: 02-05-2025 Patient encounter procedure [facility] [place] Comment on above: est care, hx EDS and POTS, EKG non-specific ST-T wave abnormality, currently . MS est care, hx EDS and POTS, EKG non-specific ST-T wave abnormality, currently . MS/ EKG kk Start: 02-05-2025 [facility] Start: 02-05-2025 Patient discharge [facility] Start: 02-04-2025 Nonstress test Start: 02-04-2025 Obstetric monitoring [facility] Start: 02-04-2025 Vital signs measurements Start: 02-04-2025 [facility] Start: 02-04-2025 Bacteria identified in Urine by Culture Urine Culture Start: 02-02-2025 End: 02-02-2025 Start: 02-02-2025 Nonstress test Start: 02-02-2025 Obstetric monitoring [facility] Start: 02-02-2025 Vital signs measurements Start: 02-02-2025 [facility] Start: 02-02-2025 Bacteria identified in Urine by Culture Urine Culture Start: 02-02-2025 Patient discharge [facility] Start: 01-28-2025 End: 01-28-2025 Patient encounter procedure 01/28/2025 10:00 AM EDT Routine Office Visit OB/Gynecology [address] [place] [address] Magda Aragon MD [address] [place] [address] LMP:08/24/24, New OB 12/28/24 OB/Gynecology Comment on above: LMP:08/24/24, New OB 12/28/24 Start: 01-25-2025 Influenza vaccination Influenza Vacc ine (#1) [facility] Start: 01-11-2025 End: 01-11-2025 Patient encounter procedure [facility] Comment on above: Anatomy Anatomy/OB Start: 01-11-2025 End: 04-12-2025 TSH W/REFLEX FT4 TSH W/REFLEX FT4 Lab Routine Palpitations Other fatigue Weakness Expected: 01/11/2025, Expires: 04/12/[address] [facility] Comment on above: Expected: 01/11/2025 , Expires: 04/12/2025 Start: 12-28-2024 End: 12-28-2025 OBSTETRIC ULTRASOUND WHI OBSTETRIC ULTRASOUND WHI Anc Imaging Routine Visit for screening (HCC) Expected: 12/28/2024, Expires: 12/28/2025 [facility] Work Phone: Comment on above: Expected: 12/28/2024 , Expires: 12/28/2025 Start: 12-28-2024 End: 12-28-2024 Patient encounter procedure OB/Gynecology Comment on above: LMP:08/24/24 LMP:08/24/24 - record s in chart prep binder Start: 12-21-2024 [facility] Start: 12-21-2024 [facility] Start: 12-21-2024 Bacteria identified in Urine by Culture Urine Culture Start: 01-26-2024 Covid-19 Vaccine ( season) Covid-19 Vaccine ( season) [facility] Start: 11-25-2023 Hepatitis B Vaccine (1 of 3 - 19+ 3-dose series) Hepatitis B Vaccine (1 of 3 - 19+ 3-dose series) [facility] Start: 11-25-2023 Urine microalbumin profile DTaP,Tdap,Td Vaccine (1 - Tdap) [facility] Start: 2022 Anxiety Screening Anxiety Screening [facility] Start: 2022 Depression Screening Depression Scre ening [facility] Start: 2022 GC (Gonorrhea) Scree hernando () GC (Gonorrhea) Screening () [facility] Start: 2022 Hepatitis C screening Hepatitis C Sc sarithaning [facility] Start: 2022 HIV screening HIV Screening [facility] Start: 2022 Screening for Chlamy eva trachomatis Chlamydia Screening () [facility] Start: 2020 Meningococcal B Vacc ine (1 of 2 - Standard) Meningococcal B Vaccine (1 of 2 - Standard) [facility] Start: 11-25-2019 HPV Vaccine (1 - 3-d ose series) HPV Vaccine (1 - 3-dose series) [facility] Start: 2018 Peds To Adult Transi tion Annual Assessment Peds To Adult Transition Annual Assessment [facility] Start: 2016 Peds To Adult Transi tion Initial Discussion Peds To Adult Transition Initial Discussion [facility] Bacteria identified in Urine by Culture BACTERIAL CULTURE, URINE Microbiology Routine Burning with urination Ordered: 01/11/[address] [facility] Comment on above: Ordered: 01/11/2025 Bacteria identified in Urine by Culture BACTERIAL CULTURE, URINE Microbiology Routine Vaginal discharge during in second trimester ([facility]) 02/08/2025 11:17 AM EDT [facility] BACTERIAL VAGINOSIS NAAT BACTERI AL VAGINOSIS NAAT Lab Routine Visit for screening ([facility]) 12/28/2024 11:27 AM EDT [facility] BACTERIAL VAGINOSIS NAAT BACTERI AL VAGINOSIS NAAT Lab Routine Bacterial vaginosis Ordered: 01/11/2025 [facility] Work Phone: Comment on above: Ordered: 01/11/2025 PARVEEN/TRICHOMONAS NAAT PARVEEN /TRICHOMONAS NAAT Lab Routine Visit for screening ([facility]) 12/28/2024 11:27 AM EDT [facility] PARVEEN/TRICHOMONAS NAAT PARVEEN /TRICHOMONAS NAAT Lab Routine Bacterial vaginosis Ordered: 01/11/[address] [facility] Comment on above: Ordered: 01/11/2025 Patient Education [facility] Work Phone: Urine culture [facility] Urine culture [facility] Urine culture [facility] Immunizations Immunization Date Immunization Notes Care Provider Fa keshav 03-11-2025 tetanus toxoid, redu ailin diphtheria toxoid, and acellular pertussis vaccine, adsorbed Dr. Aftab Mendoza DO Work Phone: Payers Date Payer Category Payer Self-pay 2023 [employer] BLUE CARD PPO OOS [id number] 2023 Unknown [id number] Unknown [id number] Unknown [id number] Unknown [id number] Unknown [id number] Unknown [id number] Unknown [id number] Unknown [id number] Unknown [id number] Unknown [id number] Unknown [id number] Social History Date Type Detail Facility Tobacco smoking stat [facility] Tobacco smoking consumption unknown [facility] Start: 2004 [facility] at [facility] Start: 12-28-2024 End: 01-11-2025 Gender identity Not on file Start: 12-21-2024 End: 03-29-2025 Tobacco smoking status NHIS Never smoked tobacco (finding) Start: 2004 Sex Assigned At Female [facility] Start: 09-07-[address] [facility] Start: 12-28-2024 Tobacco use and exposure Smokeless tobacco non-user [facility] Start: 12-28-2024 End: 01-11-2025 History of Social function [facility] Start: 11-30-2024 Adult Depression Screening Assessment [address] [facility] Goals Date Patient Goal Desired Activity /State Personal health goal Personal health goal Functional Status Date Assessment Result Facility 01-19-2025 Are you deaf, or do you have serious difficulty hearing No 01/19/2025 3:40 AM Armida Owens RN No [facility] 01-19-2025 Are you blind, or do you have serious difficulty seeing, even when wearing glasses No 01/19/2025 3:40 AM Armida Owens RN No [facility] 01-19-2025 Do you have serious difficulty walking or climbing stairs No 01/19/2025 3:40 AM Armida Owens RN No [facility] 01-19-2025 Do you have difficul ty dressing or bathing No 01/19/2025 3:40 AM Armida Owens RN No [facility] 01-19-2025 Because of a physica l, mental, or emotional condition, do you have difficulty doing errands alone such as visiting a physician's office or shopping No 01/19/2025 3:40 AM Armida Owens RN No [facility] 01-06-2025 Are you deaf, or do you have serious difficulty hearing No 01/06/2025 10:25 PM Benita Yeager RN No [facility] 01-06-2025 Are you blind, or do you have serious difficulty seeing, even when wearing glasses No 01/06/2025 10:25 PM Benita Yeager RN No [facility] 01-06-2025 Do you have serious difficulty walking or climbing stairs No 01/06/2025 10:25 PM Benita Yeager RN No [facility] 01-06-2025 Do you have difficul ty dressing or bathing No 01/06/2025 10:25 PM Benita Yeager RN No [facility] 01-06-2025 Because of a physica l, mental, or emotional condition, do you have difficulty doing errands alone such as visiting a physician's office or shopping No 01/06/2025 10:25 PM Benita Yeager RN No [facility] 01-05-2025 Are you deaf, or do you have serious difficulty hearing No 01/05/2025 2:21 AM Ayanna Price RN No [facility] 01-05-2025 Are you blind, or do you have serious difficulty seeing, even when wearing glasses No 01/05/2025 2:21 AM Ayanna Price RN No [facility] 01-05-2025 Do you have serious difficulty walking or climbing stairs No 01/05/2025 2:21 AM Ayanna Price RN No [facility] 01-05-2025 Do you have difficul ty dressing or bathing No 01/05/2025 2:21 AM Ayanna Price RN No [facility] 01-05-2025 Because of a physica l, mental, or emotional condition, do you have difficulty doing errands alone such as visiting a physician's office or shopping No 01/05/2025 2:21 AM Ayanna Price RN No [facility] 12-22-2024 Are you deaf, or do you have serious difficulty hearing No 12/22/2024 9:46 PM Armida Rodriguez RN No [facility] 12-22-2024 Are you blind, or do you have serious difficulty seeing, even when wearing glasses No 12/22/2024 9:46 PM Armida Rodriguez, LEVON No [facility] 12-22-2024 Do you have serious difficulty walking or climbing stairs No 12/22/2024 9:46 PM Armida Rodriguez, LEVON No [facility] 12-22-2024 Do you have difficul ty dressing or bathing No 12/22/2024 9:46 PM EDT Armida Pennington, LEVON No [facility] 12-22-2024 Because of a physica l, mental, or emotional condition, do you have difficulty doing errands alone such as visiting a physician's office or shopping No 12/22/2024 9:46 PM EDT Armida Pennington, RN No [facility] Mental Status Date Assessment Result Facility 03-29-2025 Cognitive function Voice/Name [facility] Work Phone: 01-19-2025 Because of a physica l, mental, or emotional condition, do you have serious difficulty concentrating, remembering, or making decisions No 01/19/2025 3:40 AM EDT Armida Neves, LEVNO No [facility] 01-06-2025 Because of a physica l, mental, or emotional condition, do you have serious difficulty concentrating, remembering, or making decisions No 01/06/2025 10:25 PM EDT Benita Bradley RN No [facility] 01-05-2025 Because of a physica l, mental, or emotional condition, do you have serious difficulty concentrating, remembering, or making decisions No 01/05/2025 2:21 AM EDT Ayanna Alatorre, LEVON No [facility] 12-22-2024 Because of a physica l, mental, or emotional condition, do you have serious difficulty concentrating, remembering, or making decisions No 12/22/2024 9:46 PM EDT Armida Pennington, LEVON No [facility] Clinical Notes 2004 to 04-02-2025 Note Date & Type Note Facility 04-02-2025 Note HNO ID: [id number] Author: DEE ARGUETA MA Service: ? Author Type: Lifestyle Consultant Type: Progress Notes Filed: 04/02/2025 16:09 Note Text: VAHE BP A- 120/82 P-120 6- 127/82 P-121 5- 120/80 P-150 4- 98/72 P- 79 3- 127/87 P-114 2- 118/84 P-154 1- 129/[address] [facility] 03-11-2025 Note HNO ID: [id number] Author: JOCELYNE BLACK RN Service: ? Author Type: Registered Nurse Type: Progress Notes Filed: 03/11/2025 12:22 Note Text: The patient is here for an injection of Rhogam. Dose: 300 mcg Amount wasted: none. Route: Intramuscular Site: left upper quadrant gluteus Product Marketing Consultant: CSL Behring Lot #: [id number] Expiration Date: 09/04/2026 Jocelyne lBack RN [facility] 03-11-2025 Note HNO ID: [id number] Author: PRITI SHARMA MA Service: ? Author Type: Lifestyle Consultant Type: Progress Notes Filed: 03/11/2025 12:22 Note [...] severely ill: Yes Patient denies history of Guillain-Union Syndrome (a severe paralytic illness): Yes Tdap Adacel injection was given without incident. See immunizations for details of immunizations administered today. VIS sheet provided: Yes Provider Ramakrishna Corley DO was present in office at time of injection. Priti Sharma MA [facility] 03-08-2025 Note HNO ID: [id number] Author: REGGIE MA MD Service: ? Author Type: Physician Type: Progress Notes Filed: 03/08/2025 09:45 Note Text: PRIMARY CARE PHYSICIAN: To use this Smartlink, specify the provider ID whose address you want to display, e.g., .PROVADDR[1 (where 1 is the provider ID). REFERRING PHYSICIAN: Lynnet[address] [facility] [id number] CHIEF COMPLAINT: Abnormal EKG HISTORY OF PRESENT [...] of illicit drugs. 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 She has 1 other sibling. She is here in the office with her mom. Paternal grandfather suddenly at age 49. She stated the diagnosis of Myles-Danlos was made by a tricot knitting machine operator and administrative services specialist. She is not sure if she had genetic testing. PAST MEDICAL HISTORY Diagnosis Date Asthma ([facility]) 2011 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[facility]) POTS (postural orthostatic tachycardia syndrome) Recurrent [...] S1/S2; no murmurs, gallops, or rubs Abdomen: [place] distended. Nontender. EXTREMETIES: No peripheral edema. Grade [...] (U/L) Date Value 01/18/2025 11 URINALYSIS Specific [place], Ur Date Value Ref Range Status 02/13/2025 1.019 1.005 - 1.030 Final Glucose, Urine Date Value Ref Range Status 02/13/2025 Negative Trac (more content not included)... [facility] 02-23-2025 History and physical note Note Date/Time February 23, 2025 9:06pm [facility] Medical Records Department [address] [place] [address] OB Triage Physician Note 02/23/252054 MR#: [id number] Acct: [id number] Name: PAL NICHOLAS Rep #:[id number] : 2005 19 From: Lester Phillips MD PCP: Care Physician,No Primary Status :REG CLI Y Location: [place] [id number] [facility] Date of Service: 02/23/25 HPI Narrative [...] MD; No Primary Care Physician ~ Signed Work Phone: 1(433) 859-246309-30-2025 History and physical note [facility] Medical Records Department [address] [place] [id number] OB Triage Physician Note 02/23/252054 MR#: [id number] Acct: [id number] Name: PAL NICHOLAS Rep #:[id number] : 2005 19 From: Lester Phillips MD PCP: Care Physician,No Primary Status :REG CLI Y Location: [id number] HPI - General General Date of Service: 02/23/25 HPI Narrative PAL NICHOLAS, is a 19 F who presents back pain, side pain and some contractions. Maternal Data Information AMARI Calculator 2 Estimated Delivery Date Method Current WG Current Estimate 05/31/25 Manual 26w 1d PFSH PFSH Medical History (Updated 02/23/25 @ 20:56 by [...] MD; No Primary Care Physician ~ Signed 09-25-2025 NoteHNO ID: [id number] Author: KARI JOHNSTON MD Service: ? Author Type: Physician Type: Progress Notes Filed: 02/18/2025 13:16 Note Text: Female Pelvic Medicine AND Reconstructive Surgery Consult Recording using ambient AI software for draft documentation of the visit was discussed with the patient/authorized underwriting sales representative; all questions welcomed and answered. Patient/authorized underwriting sales representative agreed to proceed CHIEF COMPLAINT: Pal [...] retention, (+) uterine contractio (more content not included)...[facility]09-20-2025 NoteHNO ID: [id number] Author: KERVIN GARDINER DO Service: Obstetrics Author [...] Dept Phone 03/08/2025 9:20 AM REGGIE MA [facility] [phone] 03/11/2025 9:45 AM LAB [facility] [place] [phone] 03/11/2025 10:00 AM I TECH 1 ANALYSIS ANALYST MFM [facility] [place] [phone] 03/11/2025 10:00 AM ANALYSIS ANALYST MFM [facility] [place] [phone] 03/11/2025 11:10 AM RAMAKRISHNA CORLEY [place] [phone] Precautions: Reviewed return precautions including vaginal bleeding soaking through a pad an hour for 2 consecutive hours, increasing or severe abdominal pain, intractable nausea/vomiting. New or adjusted home medications: none Other recommendations/instructions: Follow-up with Urogynecology outpatient. [facility] NoteHNO ID: [id number] Author: KERVIN GARDINER DO Service: Obstetrics Author Type: Resident Type: Progress Notes Filed: 02/13/2025 14:39 Note Text: 1325: Completed TVUS. Concern for possible funneling with contractions. 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 Advised to encourage hydration and that no other intervention indicated at this time. Kervin Gardiner DO PGY-1 February 13, 2025 1:49 [facility]09-20-2025 NoteHNO ID: [id number] Author: MARIAJOSE MONTANEZ MD Service: Obstetrics Author [...] found under the "Get Images" tab in [employer]. SIGNATURE: Kervin Gardiner DO PATIENT NAME: Pal Nicholas DATE: February 13, 2025 TIME: 1:41 [facility]09-20-2025 NoteHNO ID: [id number] Author: RONALD COOPER RN Service: Nursing Author Type: Registered Nurse Type: Progress Notes Filed: 02/13/2025 10:59 Note Text: Bladder scanner not recognizing bladder probe. After troubleshooting, not able to use. Dr. Montanez aware.[facility]09-20-2025 NoteHNO ID: [id number] Author: MARIAJOSE MONTANEZ MD Service: Obstetrics Author [...] was discussed with the patient or authorized underwriting sales representative. The patient or authorized underwriting sales representative has agreed to proceed with the [...] EXAM: Dilation: Closed (02/13/25 1142 : Kervin Gardiner, DO) Station: -2 (02/13/25 1142 : Kervin Gardiner, ) Effacement (%): 20 (02/13/25 1142 : Kervin Gardiner, ) MONITORING/ASSESSMENT: NST with discrete interpretation : MONITORING/ASSESSMENT: Baseline Rate: 140 bpm (02/13/25 1030 : Ronald Cooper RN) Variability: Moderate (6-25 bpm) (02/13/25 1030 : Ronlad Cooper RN) Accelerations: Present (02/13/25 1030 : Ronald Cooper RN) Decelerations: None (02/13/25 1030 : Ronald Cooper RN) Contractions: Irregular (02/13/25 1030 : Ronald Cooper RN) Contraction Frequency (min): x1 (02/13/25 1030 : Ronald Cooper RN) NST INTERPRETATION: FHR Category: 1 (02/13/25 1030 : Ronald Cooper RN) LABS Diagnostic tests reviewed for today's visit: Most recent labs and imaging (more content not included)...[facility]09-15-2025 Progress note* Quick Notes - Lynnette [...] No apparent distress Abd: Gravid, non tender TICKET PRINTER- small amount of yellow / white discharge [...] and planning Fresh Test Lynnette Tapia APRN.CNM [facility]09-15-2025 Miscellaneous Notes* Quick Notes - Lynnette Tapia [...] No apparent distress Abd: Gravid, non tender TICKET PRINTER- small amount of yellow / white discharge [...] Test Lynnette Tapia APRN.CNM documented in this encounterUniversity Hospitals St. [facility]09-12-2025 History and physical note Author Lynnette Tapia Note Date/Time February 05, 2025 5:47pm [facility] Medical Records Department [address] [place] [address] OB Triage Physician Note 02/05/25 1742 MR#: [id number] Acct: [id number] Name: PAL NICHOLAS Rep #:[id number] : 2005 19 From: Lynnette Tapia CNM PCP: Care Physician,No Primary Status :REG CLI Y Location: [place] [address] HPI - General General Chief Complaint: ctx's HPI Narrative PAL NICHOLAS, is a 19 F at 23 weeks gestation who presents back to triage for cramping. Seen and evaluated last night in triage and started on Macrobid 100 mg PO BID for UTI. Maternal Data Information AMARI Calculator Estimated Delivery Date Method Current WG Current Estimate 05/31/25 Manual 23w 4d [facility] Medical History (Updated 02/05/25 @ 00:00 [...] Suprapubic pain: (3) History of UTI: (4) [place] Zaragoza' contraction: COMMENT: cervix closed (5) 23 [...] Tapia; No Primary Care Physician ~ Signed Work Phone: 1(340) 853-910909-12-2025 History and physical note [facility] Medical Records Department [address] [place] [address] OB Triage Physician Note 02/05/25 1742 MR#: [id number] Acct: [id number] Name: PAL NICHOLAS Rep #:[id number] : 2005 19 From: Lynnette Tapia CNM PCP: Care Physician,No Primary Status :REG CLI Y Location: [place] [address]-1 HPI - General General Chief Complaint: ctx's [...] Suprapubic pain: (3) History of UTI: (4) [place] Zaragoza' contraction: COMMENT: cervix closed (5) 23 weeks gestation of : PLAN: Plan Positive movements Increase fluids CE - closed/ unchanged Continue taking Macrobid 100 mg Po BID- did not take dose today D/C home with follow up in office 02/05/25 1747 ts CNM> Date _ Lynnette Tapia CNM Cosigner Signature (if applicable): Date CC: HUMPHREY Tapia; No Primary Care Physician ~ Signed 09-12-2025 Telephone encounter Note* Telephone Encounter - Jocelyne [...] for evaluation. L&D notified. Jocelyne Black RN [facility]09-12-2025 Miscellaneous Notes* Telephone Encounter - Jocelyne Black [...] notified. Jocelyne Black RN documented in this encounterUniversity Hospitals St. [facility]09-12-2025 History and physical note Author Ramakrishna Corley Note Date/Time February 05, 2025 12:03am [facility] Medical Records Department [address] [place] [address] OB Triage Physician Note 02/04/25 8455 MR#: [id number] Acct: [id number] Name: PAL NICHOLAS Rep #:[id number] : 2005 19 From: Ramakrishna Corley DO PCP: Care Physician,No Primary Status :REG CLI Y Location: [id number] [facility] Date of Service: 02/04/25 Chief Complaint: ctx's HPI Narrative PAL NICHOLAS, is a 19 F who presents ctx's. She states she has had contractions and abdominal pain for 1-2 weeks. Went to [facility] 2 weeks agofor this and [...] or lof. No constipation or diarrhea. PFSH [facility] Medical History (Updated 02/05/25 @ 00:00 [...] (1) 23 weeks gestation of : (2) [place] Zaragoza' contraction: COMMENT: cervix closed PLAN: Cervix [...] by Ramakrishna Corley DO> Date _ Ramakrishna Wiswell DO Cosigner Signature (if applicable): Date CC: Dr. Ramakrishna Corley DO; No Primary Care Physician ~ Signed Work Phone: 1(955) 365-775109-12-2025 History and physical note [facility] Medical Records Department [address] [place] [address] OB Triage Physician Note 02/04/25 8994 MR#: [id number] Acct: [id number] Name: PAL NICHOLAS Rep #: : 2005 19 From: Ramakrishna Corley DO PCP: Care Physician,No Primary Status :REG CLI Y Location: [place] [address] HPI - General General Date of Service: 02/04/25 Chief Complaint: ctx's HPI Narrative PAL NIHCOLAS, is a 19 F who presents ctx's. She states she has had contractions and abdominalpain for 1-2 weeks. Went to [facility] 2 weeks agofor this and [...] or lof. No constipation or diarrhea. PFSH [facility] Medical History (Updated 02/05/25 @ 00:00 [...] DO; No Primary Care Physician ~ Signed 09-09-2025 History and physical note [facility] Medical Records Department [address] [place] [address] OB Triage Physician Note 02/02/25 7336 MR#: [id number] Acct: [id number] Name: PAL NICHOLAS Rep #:[id number] : 2005 19 From: Magda Aragon MD PCP: Care Physician,No Primary Status :REG CLI Y Location: [place] [address]-1 HPI - General General Date of Admission: 02/02/25 Date of Service: 02/02/25 Chief Complaint: cramping HPI Narrative PAL NICHOLAS, is a 19 F who presents cramping. No bleeding. Some movement.Was seen in office today with normal discharge. Maternal Data Information Final AMARI: 05/31/25 Gestational age: 23 PFSH [facility] Medical History (Updated 02/02/25 @ 23:38 [...] Angel Zaragoza' contraction: COMMENT: cervix closed 02/02/25 2454 in MD> Date _ Magda Aragon MD Cosigner Signature (if applicable): Date CC: Dr. Magda Aragon MD; No Primary Care Physician ~ Signed 09-09-2025 Evaluation note* Diagnosis Onset Date Resolution Status Admit Date 23 weeks gestation of acute February 02, 025 8:50pm [place] Zaragoza' contraction acute February 02, 2025 8:50pm Work Phone: 1(833) 278-673909-09-2025 Evaluation note* Diagnosis Onset Date Resolution Status Admit Date 23 weeks gestation of acute February 02 8:50pm [place] Zaragoza' contraction acute February 02, 2025 8:50pm 23 weeks gestation of acute February 04, 2025 10:13pm [place] Zaragoza' contraction acute February 04, 2025 10:13pm Dysuria acute January 10:13pm History of UTI acute February 04, 2025 10:13pm Suprapubic pain acute February 04, 2025 10:13pm Work Phone: 1(376) 484-961209-09-2025 Evaluation note* Diagnosis Onset Date Resolution Status Admit Date 23 weeks gestation of acute February 02 8:50pm [place] Zaragoza' contraction acute February 02, 2025 8:50pm 23 weeks gestation of acute February 04, 2025 10:13pm [place] Zaragoza' contraction acute February 04, 2025 10:13pm Dysuria acute January 10:13pm History of UTI acute February 04, 2025 10:13pm Suprapubic pain acute February 04, 2025 10:13pm Dysuria acute January 9:49pm Suprapubic pain acute February 13, 2025 9:49pm Work Phone: 1(488) 498-195009-09-2025 Evaluation note* Diagnosis Onset Date Resolution Status Admit Date 23 weeks gestation of acute February 02 8:50pm Angel Zaragoza' contraction acute February 02, 2025 8:50pm 23 weeks gestation of acute February 04, 2025 10:13pm [place] Zaragoza' contraction acute February 04, 2025 10:13pm Dysuria acute January 10:13pm History of UTI acute February 04, 2025 10:13pm Suprapubic pain acute February 04, 2025 10:13pm Dysuria acute January 9:49pm Suprapubic pain acute February 13, 2025 9:49pm Threatened labor acute February 23, 2025 8:00pm Work Phone: 1(454) 946-699009-09-2025 Evaluation note* Diagnosis Onset Date Resolution Status Admit Date 23 weeks gestation of acute February 02, 025 8:50pm [place] Zaragoza' contraction acute February 02, 2025 8:50pm 23 weeks gestation of acute February 04, 2025 10:13pm Angel Zaragoza' contraction acute February 04, 2025 10:13pm Dysuria acute January 10:13pm History of UTI acute February 04, 2025 10:13pm Suprapubic pain acute February 04, 2025 10:13pm Dysuria acute January 9:49pm Suprapubic pain acute February 13, 2025 9:49pm Threatened labor acute February 23, 2025 8:00pm Decreased movement acute March 13, 2025 4:35pm 29 weeks gestation of acute March 17 5:27pm Decreased movement acute March 17, 2025 5:27pm 31 weeks gestation of acute March 29 4:35pm Chest pain acute March 29, 2025 4:35pm Decreased movement acute March 29, 2025 4:35pm Pain in symphysis pubis during acute March 29, 4:35pm POTS (postural orthostatic tachycardia syndrome) acute March 292024 4:35pm Shortness of breath acute 2024 4:35pm Tachycardia acute March 29, 2025 4:35pm Work Phone: [phone]) [phone] Miscellaneous Notes* Quick Notes - Lester Phillips MD - 02/02/2025 2:25 PM EDT KJ - S: Pal denies contractions or vaginal bleeding. Patient reports increased discharge with possible LOF. Also would like checked for a UTI,. O: 23w1d, see flow sheet SENSITIVE EXAM: The sensitive examination was discussed with the Patient or Patient's Authorized Animal Trainer Supervisor. As applicable, any other physician, advance practice provider, medical student, or other health professional student that will be observing or involved in the sensitive examination for educational or training purposes was discussed with the Patient or Authorized Animal Trainer Supervisor. The Patient or Authorized Animal Trainer Supervisor has agreed to proceed with the sensitive examination. (Sensitive examination includes inspection and/or palpation of the breasts, pelvis, prostate and anorectal regions). SSE: normal vagina, cervix closed negative pool/fern/nitrazine A/P: Assessment & Plan Vaginal discharge during , antepartum (HCC) Orders: UA DIP, URINE (POC) Patient reassured on normal vaginal discharge. Follow up as scheduled. Lester Phillips MD documented in this encounterUniversity Hospitals St. [facility]09-09-2025 Progress note* Quick Notes - Lester Phillips MD - 02/02/2025 2:25 PM EDT KJ - S: Pal denies contractions or vaginal bleeding. Patient reports increased discharge with possible LOF. Also would like checked for a UTI,. O: 23w1d, see flow sheet SENSITIVE EXAM: The sensitive examination was discussed with the Patient or Patient's Authorized Animal Trainer Supervisor. As applicable, any other physician, advance practice provider, medical student, or other health professional student that will be observing or involved in the sensitive examination for educational or training purposes was discussed with the Patient or Authorized Animal Trainer Supervisor. The Patient or Authorized Animal Trainer Supervisor has agreed to proceed with the sensitive examination. (Sensitive examination includes inspection and/or palpation of the breasts, pelvis, prostate and anorectal regions). SSE: normal vagina, cervix closed negative pool/fern/nitrazine A/P: Assessment & Plan Vaginal discharge during , antepartum (HCC) Orders: UA DIP, URINE (POC) Patient reassured on normal vaginal discharge. Follow up as scheduled. Lester Phillips MD [facility]09-09-2025 Telephone encounter Note* Telephone Encounter - Magda Hagen RN - 02/02/2025 11:11 AM EDT Patient called in to the office. Appointment given today. Magda Hagen RN [facility]09-09-2025 Miscellaneous Notes* Telephone Encounter - Magda Hagen RN - 02/02/2025 11:11 AM EDT Patient called in to the office. Appointment given today. Magda Hagen RN documented in this encounterUniversity Hospitals St. [facility]08-27-2025 Telephone encounter Note * Telephone Encounter - Jocelyne Black RN - 01/20/2025 11:33 AM EDT Order signed and faxed. Jocelyne Black RN [facility]08-27-2025 Miscellaneous Notes* Telephone Encounter - Jocelyne Black RN - 01/20/2025 11:33 AM EDT Order signed and faxed. Jocelyne Black RN * Telephone Encounter - Isaura Pereira RN - 01/18/2025 8:45 AM EDT Breast pump order received from [employer]. To CP to sign. Isaura Pereira RN documented in this encounterUniversity Hospitals St. [facility]08-27-2025 NoteHNO ID: [id number] Author: KARINA SALDAÑA MD Service: ? Author [...] was discussed with the patient or authorized underwriting sales representative. The patient or authorized underwriting sales representative has agreed to proceed with the [...] Making Level: 4 - Moderate Karina Omer [facility]08-27-2025 History of Present illness Narrative* Karina [...] was discussed with the patient or authorized underwriting sales representative. The patient or authorized underwriting sales representative has agreed to proceed with the [...] Moderate Karina Omer MD documented in this encounterUniversity Hospitals St. [facility]08-27-2025 Progress note* Quick Notes - Karina Saldaña [...] was discussed with the patient or authorized underwriting sales representative. The patient or authorized underwriting sales representative has agreed to proceed with the sensitive examination. @ 21.2 weeks Assessment & Plan Encounter for supervision of normal first in second trimester (HCC) Vaginal discharge Vaginal cultures today 21 weeks gestation of ([facility]) RTO as scheduled Abdominal pain affecting ([facility]) Went to ER had CT scan - no acute findings. Causes of pain reviewed with patient. - abdominal binder Karina Omer MD [facility]08-27-2025 Miscellaneous Notes* Quick Notes - Karina Saldaña [...] was discussed with the patient or authorized underwriting sales representative. The patient or authorized underwriting sales representative has agreed to proceed with the [...] binder Karina Omer MD documented in this encounterUniversity Hospitals St. [facility]08-27-2025 Instructions* Patient Instructions* Ana Cristina Fitch MA - 01/20/2025 9:54 AM EDT SEQUENTIAL SCREENINGS The [facility] offers sequential screenings for women who are [...] testing. It will require an appointment withour wireless cellular technician. This is not an ultrasound performed [...] the above symptoms, contact our office at [phone] and ask to speak with anurse. After hours, you can call [place] registry at [phone] OR call [facility] at [phone] ask to have the doctor sale professional digital marketing paged. If you consider this an emergency, dial 9-1-1 or go to your nearest emergency department. NEED HELP? Are you dealing with a violent or abusive relationship? Are you a victim of rape or sexual assult? Call [facility] ([place]) 24 hour Crisis Hotline: 912.713.1491 or 088-226-8511. MANUAL Your Guide to a Healthy manual is now on-line. Visit [email or web address] to download your free copy documented in this encounterUniversity Hospitals St. [facility] Center08-26-2025 NoteHNO ID: [id number] Author: ARMIDA PENNINGTON RN Service: Nursing Author Type: Registered Nurse Type: Nursing Progress Note Filed: 01/19/2025 00:45 Note Text: Patient returned to [facility] at this time. No distress noted.[facility]08-26-2025 NoteHNO ID: [id number] Author: ARMIDA PENNINGTON RN Service: Nursing Author Type: Registered Nurse Type: Nursing Progress Note Filed: 01/19/2025 00:45 Note Text: Patient taken to CT at this time via wheelchair. RN accompanied patient. No distress noted.[facility]08-25-2025 NoteHNO ID: [id number] Author: CHAD LOYOLA DO Service: Obstetrics Author [...] medical physics group. Chad Loyola DO, MPH CRYSTALIZER OPERATOR PGY-2AT[facility]08-25-2025 NoteHNO ID: [id number] Author: CHAD LOYOLA DO Service: Obstetrics Author [...] . 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 The patient or authorized underwriting sales representative has agreed to proceed with the [...] Plan of Care discussed with Dr. Zamorano ([facility]) Chronic hypertension affecting (HCC) - normotensive on [...] 18, 2025 TIME: 9:34 PM PAGER/CONTACT #: [id number]08-25-2025 Telephone encounter Note* Telephone Encounter - Isaura Pereira RN - 01/18/2025 8:45 AM EDT Breast pump order received from [employer]. To to sign. Isaura Pereira RN [facility]08-21-2025 Telephone encounter Note* Telephone Encounter - Ramakrishna Corley MD - 01/14/2025 1:34 PM EDT See result note [facility]08-21-2025 Miscellaneous Notes* Telephone Encounter - Ramakrishna Corley MD - 01/14/2025 1:34 PM EDT See result note documented in this encounterUniversity Hospitals St. [facility]08-18-2025 Note* Addendum Note - Ramakrishna Corley MD - 01/11/2025 3:49 PM EDTAddended by: RAMAKRISHNA CORLEY on: 01/11/2025 03:49 PM Modules accepted: Orders [facility]08-18-2025 Miscellaneous Notes* Addendum Note - Ramakrishna Corley [...] several weeks ago, treated after she wentto [place] triage. Now has dysuria. No vb, lof, [...] wks Ramakrishna Corley DO documented in this encounterUniversity Hospitals St. [facility]08-18-2025 Note* Addendum Note - Priti Sharma MA - 01/11/2025 3:24 PM EDTAddended by: PRITI SHARMA on: 01/11/2025 03:24 PM Modules accepted: Orders [facility]08-18-2025 Progress note* Quick Notes - Ramakrishna Corley MD - 01/11/2025 3:12 PM EDT SW- Lower pelvic cramping and dysuria with a BV infection several weeks ago, treated after she wentto [place] triage. Now has dysuria. No vb, lof, [...] - Rto 4 wks Ramakrishna Corley DO [facility]08-18-2025 Instructions* Patient Instructions* Priti Sharma MA - 01/11/2025 2:59 PM EDT SEQUENTIAL SCREENINGS The [facility] offers sequential screenings for women who are [...] testing. It will require an appointment withour wireless cellular technician. This is not an ultrasound performed [...] the above symptoms, contact our office at [phone] and ask to speak with anurse. After hours, you can call doctors registry at [phone] OR call [facility] at [phone] ask to have the doctor sale professional digital marketing paged. If you consider this an emergency, dial 2-5-5 or go to your nearest emergency department. NEED HELP? Are you dealing with a violent or abusive relationship? Are you a victim of rape or sexual assult? Call [facility] ([place]) 24 hour Crisis Hotline: 470.126.9478 or 486-400-0991. MANUAL Your Guide to a Healthy manual is now on-line. Visit [email or web address] to download your free copy documented in this encounterUniversity Hospitals St. [facility]08-15-2025 Telephone encounter Note * Telephone Encounter - Kari Abebe - 01/08/2025 2:39 PM EDT Scheduled 02/05/[address] Burns. Kari Abebe [facility]08-15-2025 Miscellaneous Notes* Telephone Encounter - Kari Abebe - 01/08/2025 2:39 PM EDT Scheduled 02/05/[address] Burns. Kari Abebe * Telephone Encounter - Ej Rodriguez MD - 01/07/2025 12:40 PM EDT Patient was seen by resident but not by any attending administrative services specialist while in labor and delivery she is and carries diagnosis of Myles-Danlos syndrome and POTS. She needs a new patient general cardiology appointment in the next 1 to 4 weeks. Please try to arrange this. If there are no spots or anyone let me know thanks Ej Rodriguez MD documented in this encounterUniversity Hospitals St. [facility]08-14-2025 Telephone encounter Note * Telephone Encounter - Ej Rodriguez MD - 01/07/2025 12:40 PM EDT Patient was seen by resident but not by any attending administrative services specialist while in labor and delivery she is and carries diagnosis of Myles-Danlos syndrome and POTS. She needs a new patient general cardiology appointment in the next 1 to 4 weeks. Please try to arrange this. If there are no spots or anyone let me know thanks Ej Rodriguez MD [facility] Work Phone: 1(711) 529-709508-14-2025 Telephone encounter Note* Telephone Encounter - Jocelyne Black RN - 01/07/2025 10:35 AM EDT Patient was seen at [facility] last night. She has OB and MFM appointment on Saturday. Jocelyne Black RN [facility]08-14-2025 Miscellaneous Notes* Telephone Encounter - Jocelyne Black RN - 01/07/2025 10:35 AM EDT Patient was seen at [facility] last night. She has OB [...] 01/05 telephone notes. Patient was seen at [facility] OB ED triage on 01/04. The diarrhea has resolved. Advised that she go back to [facility] as the office is closing. Patient asked for an appointment tomorrow instead because of transportation. No available appointments. Advised that she should be evaluated today in case she is having labor. Voiced understanding and believes she could have a friend take her. CAROLINA Hagen RN documented in this encounterUniversity Hospitals St. John [facility]08-14-2025 Telephone encounter Note * Telephone Encounter - Karina Addison MD - 01/07/2025 10:00 AM EDT If not improved work in any cancellations, go to L&D for eval or schedule tomorrow if openings.Karina Addison MD [facility] Work Phone: 1(298) 384-339108-13-2025 NoteHNO ID: [id number] Author: ALEXA DICKSON MD Service: Obstetrics Author [...] usual. PAST MEDICAL HISTORY Diagnosis Date Asthma ([facility]) 2012 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[facility]) POTS (postural orthostatic tachycardia syndrome) Recurrent [...] for dysuria or urinary frequency, urinary urgency TICKET PRINTER: Negative for abnormal vaginal bleeding, negative fluid [...] was discussed with the patient or authorized underwriting sales representative. The patient or authorized underwriting sales representative has agreed to proceed with the [...] and gums normal, oropharynx (more content not included)...[facility]08-13-2025 Telephone encounter Note* Telephone Encounter - [...] 01/05 telephone notes. Patient was seen at [facility] ED triage on 01/04. The diarrhea has resolved. Advised that she go back to [facility] as the office is closing. Patient asked for an appointment tomorrow instead because of transportation. No available appointments. Advised that she should be evaluated today in case she is having labor. Voiced understanding and believes she could have a friend take her. CAROLINA Hagen RN [facility]08-12-2025 Telephone encounter Note* Telephone Encounter - Jocelyne Black RN - 01/05/2025 12:19 PM EDT Patient notified and voiced understanding. Jocelyne Black RN [facility]08-12-2025 Miscellaneous Notes* Telephone Encounter - Jocelyne Black RN - 01/05/2025 12:19 PM EDT Patient notified and voiced understanding. Jocelyne Black RN * Telephone Encounter - Lester Phillips MD - 01/05/2025 12:07 PM EDT Patient was seen by Mitesh Kulkarni while at [facility]. I recommend supportive care with hydration, potassiumrich foods such as bananas and rest. Agree that after a GI illness it can take several days to feelbetter. Please keep current appointment on Saturday. Lester Phillips MD * Telephone Encounter - Magda Hagen RN - 01/05/2025 11:34 AM EDT 19w1d See 01/04 phone note. Patient went to [facility] ED last night. [place]'s notes available to review. Patient was prescribed [...] feel completely confident in the diagnosis from [place]. Please advise. Magda Hagen RN documented in this encounterUniversity Hospitals St. [facility]08-12-2025 Telephone encounter Note * Telephone Encounter - Lester Phillips MD - 01/05/2025 12:07 PM EDT Patient was seen by Mitesh Kulkarni while at [facility]. I recommend supportive care with hydration, potassiumrich foods such as bananas and rest. Agree that after a GI illness it can take several days to feelbetter. Please keep current appointment on Saturday. Lester Phillips MD [facility] Work Phone: 1(411) 214-446208-12-2025 Telephone encounter Note* Telephone Encounter - Magda Hagen RN - 01/05/2025 11:34 AM EDT 19w1d See 01/04 phone note. Patient went to [facility] OB ED last night. [place]'s notes available to review. Patient was prescribed [...] feel completely confident in the diagnosis from [place]. Please advise. Magda Hagen RN [facility]08-12-2025 Telephone encounter Note* Telephone Encounter - Jayla Keller MD - 01/05/2025 11:17 AM EDT Images from the original note were not included. Patient called requesting Rx for potassium and imodium after being seen in the OB ED 1 day ago. Jayla Keller MD [facility]08-12-2025 Miscellaneous Notes* Telephone Encounter - Jayla Keller MD - 01/05/2025 11:17 AM EDT Images from the original note were not included. Patient called requesting Rx for potassium and imodium after being seen in the OB ED 1 day ago. Jayla Keller MD documented in this encounterUniversity Hospitals St. [facility]08-11-2025 NoteHNO ID: [id number] Author: KARINA ADDISON MD Service: Obstetrics Author [...] Diagnosis Date Asthma ([facility]) 2012 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[facility]) POTS (postural orthostatic tachycardia syndrome) Recurrent [...] : Negative for dysuria or urinary frequency TICKET PRINTER: Negative for abnormal vaginal bleeding, abnormal vaginal discharge Objective LAST VITALS: Pulse: 102 BP: 120/63 Temp: 36.3 ?C (97.3 ?F) SpO2: 99 % SENSITIVE EXAMINATION CONSENT: Participation of a fellow, resident, medical student, or advanced practice provider student in performing the sensitive examination was discussed with the patient or authorized underwriting sales representative. The patient or authorized underwriting sales representative has agreed to proceed with the [...] Discussed natural course of (more content not included)...[facility]08-11-2025 Telephone encounter Note* Telephone Encounter - [...] states this is stayingthe same since at [facility] 12/22/24. Last few weeks, Pt states extremely watery discharge. Went to [facility] at that time d/t havingsharp cervical pain & was treated for BV. Feels hydrated/Has been drinking liquid IV. Does havesome burning on urination & was seen on 12/30/24 in office-UA completed and TRACE protein and TRACE leukocytes. Advised Pt that since pain has worsened as the day as gone on that it would be best to go to [facility] OB triage to be evaluated as no appts available in office at this time. Pt did state she'd feel more comfortable going there and that is essentially why she called as she wanted to discuss with a nurse. Pt states her ride will not be able to pick her up for another 30 minutes, but Pt is agreeable to go to [place]. Dr. Aragon notified. Maite Peterson RN [facility]08-11-2025 Miscellaneous Notes* Telephone Encounter - Maite Peterson [...] states this is stayingthe same since at [facility] 12/22/24. Last few weeks, Pt states extremely watery discharge. Went to [facility] at that time d/t havingsharp cervical pain & was treated for BV. Feels hydrated/Has been drinking liquid IV. Does havesome burning on urination & was seen on 12/30/24 in office-UA completed and TRACE protein and TRACE leukocytes. Advised Pt that since pain has worsened as the day as gone on that it would be best to go to [facility] OB triage to be evaluated as no appts available in office at this time. Pt did state she'd feel more comfortable going there and that is essentially why she called as she wanted to discuss with a nurse. Pt states her ride will not be able to pick her up for another 30 minutes, but Pt is agreeable to go to [place]. Dr. Aragon notified. Maite Peterson RN documented in this encounterUniversity Hospitals St. [facility]08-04-2025 Miscellaneous Notes* Quick Notes - Lynnette Tapia APRN.CNM - 12/28/2024 11:15 AM EDT Patient is at 18 weeks gestation here for NOB. She is new to office and has received adequateprenatal care in [place]. Awaiting records. Lynnette Tapia APRN.CNM documented in this encounterUniversity Hospitals St. John [facility]08-04-2025 Progress note* Quick Notes - Lynnette Tapia APRN.CNM - 12/28/2024 11:15 AM EDT Patient is at 18 weeks gestation here for NOB. She is new to office and has received adequateprenatal care in [place]. Awaiting records. Lynnette Tapia APRN.CNM [facility]08-04-2025 NoteHNO ID: [id number] Author: LYNNETTE TAPIA APRN.CNM Service: ? Author Type: Software Quality Automation Engineer Type: Progress Notes Filed: 12/28/2024 13:23 Note Text: Director Consumer offered: Patient declines. INITIAL OB ASSESSMENT HPI: [...] all that apply)? Centering (group care classes); Tour Narrator; Software Quality Automation Engineer care Social History: Do you have any [...] Partner: Name: Zaki Steven Age: 19 Occupation: [employer] Gender: Male PAST MEDICAL HISTORY Diagnosis Date [...] Itching GENITOURINARY: Negative f (more content not included)...[facility]08-04-2025 History of Present illness Narrative* Lynnette TapiaDARIAN.[facility] - 12/28/2024 8:36 AM EDT Director Consumer offered: Patient declines. INITIAL OB ASSESSMENT HPI: [...] all that apply)? Centering (group care classes); Tour Narrator; Software Quality Automation Engineer care Social History: Do you have any [...] documented. Marital Status:Committed relationship Partner: Name: Zaki Setven Age: 19 Occupation: [employer] Gender: Male PAST MEDICAL HISTORY Diagnosis Date [...] with the Patient or Patient's Authorized Animal Trainer Supervisor. As applicable, any other physician, advance practice provider, medical student, or other health professional student that will be observing or involved in the sensitive examination for educational or training purposes was discussed with the Patient or Authorized Animal Trainer Supervisor. The Patient or Authorized Animal Trainer Supervisor has agreed to proceed with the [...] Your guide to a health and the Rn Birthing. Discussed Centering group- MAY BE INTERESTED 2) [...] prn. Lynnette Tapia APRN.CNM documented in this encounterUniversity Hospitals St. [facility]08-04-2025 Instructions* Patient Instructions* Ralph Molina LPN - 12/28/2024 8:36 AM EDT Please select the following link to access the [facility] Your Guide to a Healthy . [email or web address] documented in this encounterUniversity Hospitals St. John [facility]08-01-2025 Telephone encounter Note * Telephone Encounter - Isaura Pereira RN - 12/25/2024 12:13 PM EDT Records received from [facility] in [place]. In chart prep binder for NOB appt on 12/28 with PAMELA. Isaura Pereira RN [facility]08-01-2025 Miscellaneous Notes* Telephone Encounter - Isaura Pereira RN - 12/25/2024 12:13 PM EDT Records received from [facility] in [place]. In chart prep binder for NOB appt on 12/28 with CP. Isaura Pereira, RN documented in this encounterUniversity Hospitals St. John [facility] Center07-29-2025 NoteHNO ID: [id number] Author: MARK FOREMAN MD Service: Obstetrics Author [...] and recurrent UTIs. She recently moved from [place] and is establishing care with [facility]. Pt states her abdominal pain is intermittent and began around 6 pm yesterday. She was evaluated at [place] [facility] yesterday where she was found to [...] nausea, vomiting, or diarrhea : + dysuria TICKET PRINTER: Negative for abnormal vaginal bleeding, + for [...] was discussed with the patient or authorized underwriting sales representative. The patient or authorized underwriting sales representative has agreed to proceed with the [...] Doppler/Fetoscope Rate: 150 bpm (12/22/242020 : Mariann Milton RN) LABS None Diagnostic tests reviewed for [...] prescription for a course (more content not included)...[facility]07-29-2025 Telephone encounter Note* Telephone Encounter - Magda Hagen RN - 12/22/2024 4:23 PM EDT Patient notified. Magda Hagen RN [facility]07-29-2025 Miscellaneous Notes* Telephone Encounter - Magda Hagen [...] urgent issue or go to ANGELA at [facility] or see if there is a sooner NOB elsewhere to get her established then f/u here. Karina Addison MD * Telephone Encounter - Magda Hagen RN - 12/22/2024 12:26 PM EDT New WHI OB seen at [facility] ER yesterday for pelvic pain. LMP 08/24/24. Approximately 17w1d. Patient calling because she still continues to have pelvic pain and pressure. Pain rate of 5-6. Taking Tylenol and using heat with no relief. States when she went to the ER her pain was 8-9. Denies LOF or VB. Per [facility] ER report: Discussed the case with on-call CRYSTALIZER OPERATOR for [facility] Dr. Aragon who states that she [...] medical records from her previous OB. [facility] ER report to RR to review. Magda Hagen RN documented in this encounterUniversity Hospitals St. [facility]07-29-2025 Telephone encounter Note * Telephone Encounter - Karina Addison MD - 12/22/2024 3:38 PM EDT Agree w/ keep scheduled appointment. Make sure we have US results/labs for NOB. If infection ruled out and no bleeding would recommend stretching, tylenol and warm baths prn. Can return to ED if urgent issue or go to ANGELA at [facility] or see if there is a sooner NOB elsewhere to get her established then f/u here. Karina Addison MD [facility] Work Phone: 1(707) 666-840607-29-2025 Telephone encounter Note* Telephone Encounter - Magda Hagen RN - 12/22/2024 12:26 PM EDT New I OB seen at [facility] ER yesterday for pelvic pain. LMP 08/24/24. Approximately 17w1d. Patient calling because she still continues to have pelvic pain and pressure. Pain rate of 5-6. Taking Tylenol and using heat with no relief. States when she went to the ER her pain was 8-9. Denies LOF or VB. Per [facility] ER report: Discussed the case with on-call CRYSTALIZER OPERATOR for [facility] Dr. Aragon who states that she [...] medical records from her previous OB. [facility] ER report to to review. Magda Hagen RN [facility]07-28-2025 Discharge summary [facility] Medical Records Department [address] [place] [address] Emergency Department Summary 12/21/24 MR#: [id number] Acct: [id number] Name: PAL NICHOLAS Rep #:[id number] : 2005 19 From: Aftab Mendoza DO [...] management. States that she is following with [facility] OB. Patient denies any vaginal spotting or bleeding. [facility] Medical History (Updated 12/21/24 @ 23:39 [...] of infection. Discussed the case with on-call CRYSTALIZER OPERATOR for [facility] Dr. Aragon who states that she [...] 72.9 H Lymph % (Auto) 18.4 L [place] % (Auto) 6.2 Eos % (Auto) 1.4 [...] Clarity Clear Urine pH 6.5 Ur Specific [place] 1.010 Urine Protein Negative Urine Glucose (UA) [...] - Activity Restrictions/Additional Instructions: Follow-up with your CRYSTALIZER OPERATOR at your scheduled appointment on Saturday. Your blood work did not show any acute findings your urine did not show any evidence infection. Return with worsening symptoms or any concerns. Ensure you are hydrating plenty with water. Print Language: Mexican Disposition Disposition: Home, Self Care What to do if you have Problems For any increased pain, shortness of breath, bleeding, nausea or vomiting, chestpain, or any unexpected problems, contact your Primary Care Provider. Call [facility] ([phone]) or report tothe closest Emergency Room. Call 911 if necessary. 12/21/24 1379 Cosigner Signature (if applicable): CC: No Primary Care Physician ~ Signed 07-28-2025 Discharge summary Author Aftab Mendoza Note Date/Time December 21, 2024 11:3 9pm [facility] Medical Records Department [address] [place] [address] Emergency Department Summary 12/21/24 MR#: [id number] Acct: [id number] Name: PAL NICHOLAS Rep #:[id number] : 2005 19 From: Aftab Mendoza DO [...] management. States that she is following with [facility] OB. Patient denies any vaginal spotting or bleeding. [facility] Medical History (Updated 12/21/24 @ 23:39 [...] of infection. Discussed the case with on-call CRYSTALIZER OPERATOR for [facility] Dr. Aragon who states that she [...] 72.9 H Lymph % (Auto) 18.4 L [place] % (Auto) 6.2 Eos % (Auto) 1.4 [...] Clarity Clear Urine pH 6.5 Ur Specific [place] 1.010 Urine Protein Negative Urine Glucose (UA) [...] - Activity Restrictions/Additional Instructions: Follow-up with your CRYSTALIZER OPERATOR at your scheduled appointment on Saturday. Your blood work did not show any acute findings your urine did not show any evidence infection. Return with worsening symptoms or any concerns. Ensure you are hydrating plenty with water. Print Language: Mexican Disposition Disposition: Home, Self Care What to do if you have Problems For any increased pain, shortness of breath, bleeding, nausea or vomiting, chestpain, or any unexpected problems, contact your Primary Care Provider. Call [employer] [facility] ([phone]) or report to the closest Emergency Room. Call 911 if necessary. 12/21/24 9462 <Electronically signed by Aftab Mendoza DO> Cosigner Signature (if applicable): CC: No Primary Care Physician ~ Signed Work Phone: 1(294) 585-576307-28-2025 Hospital Discharge instructionsAdditional Instructions Follow-up with your CRYSTALIZER OPERATOR at your scheduled appointment on Saturday. Your blood work did not show any acute findings your urine did not show any evidence infection. Return with worsening symptoms or any concerns. Ensure you are hydrating plenty with water. Work Phone: 1(842) 127-530007-08-2025 Telephone encounter Note* Telephone Encounter - Maria Alejandra Kay RN - 12/01/2024 10:27 AM EDT Name and verified. Patient wishes to transfer to [facility] for OB care. AMARI? 05/31/25 Gestational age? 14w1d Patient aware to sign up for My Chart so she can receive the "home health care respiratory therapist" messages. What facility is she transferring from? [facility] in [place] Moving to [place] in 2 weeks and will be approx [...] the desired office. Maria Alejandra Kay RN [facility]07-08-2025 Miscellaneous Notes* Telephone Encounter - Maria Alejandra Kay RN - 12/01/2024 10:27 AM EDT Name and verified. Patient wishes to transfer to [facility] for OB care. AMARI? 05/31/25 Gestational age? 14w1d Patient aware to sign up for My Chart so she can receive the "home health care respiratory therapist" messages. What facility is she transferring from? [facility] in [place] Moving to [place] in 2 weeks and will be approx [...] and Date of : Yes Patient: Pal Nicohlas Date of : 2005 Provider for this encounter : ANALYSIS ANALYST [facility] Reason for call: New OB patient (16 weeks as of 11/30/24), MELVIN from [place] Was an appointment scheduled: No Reason for requesting visit (RFV/signs and symptoms/diagnosis) : Establish with OB at [facility] for continuation of care. Person calling: self Return call to: self Call patient at: [phone] (cell), it is OK to leave message Payor: ANTHEM / Plan: BLUE CARD PPO OOS / Product Type: PPO / Rica Garcia documented in this encounterUniversity Hospitals St. [facility]07-08-2025 Telephone encounter Note * Telephone Encounter - Maria Alejandra Kay RN - 12/01/2024 10:09 AM EDT Call placed to patient to triage for new OB appt. Left message for patient to call back Maria Alejandra Kay RN [facility]07-08-2025 Telephone encounter Note* Telephone Encounter - Maria Alejandra Kay RN - 12/01/2024 8:38 AM EDT Call placed to patient to triage for new OB appt. No answer, will try later Maria Alejandra Kay RN [facility]07-08-2025 Telephone encounter Note* Telephone Encounter - Maria Alejandra Kay RN - 12/01/2024 8:37 AM EDT ----- Message from Rica Pendleton sent at 11/30/2024 4:05 PM EDT ----- Regarding: New/MELVIN OB 16 weeks Patient has been identified by name and Date of : Yes Patient: Pal Nicholas Date of : 2005 Provider for this encounter : ANALYSIS ANALYST WSTR Reason for call: New OB patient (16 weeks as of 11/30/24), MELVIN from [place] Was an appointment scheduled: No Reason for requesting visit (RFV/signs and symptoms/diagnosis) : Establish with OB at [facility] for continuation of care. Person calling: self Return call to: self Call patient at: [phone] (cell), it is OK to leave message Payor: ANTHEM / Plan: BLUE CARD PPO OOS / Product Type: PPO / Rica Garcia [facility]07-01-2005 History and physical note [facility] Medical Records Department [address] [place] [address] OB Triage Physician Note 02/13/25 2321 MR#: [id number] Acct: [id number] Name: PAL NICHOLAS Rep #:[id number] : 2005 19 From: Magda Aragon MD PCP: Care Physician,No Primary Status :DEP CLI Y Location: [facility] HPI - General General Date of Service: 02/13/25 Chief Complaint: pain HPI Narrative PAL NICHOLAS, is a 19 F who presents with bladder pain and unable to void.Was in Triage at [facility] early and had straight cath [...] MD; No Primary Care Physician ~ Signed 07-01-2005 History and physical note [facility] Medical Records Department [address] [place] [address] OB Triage Physician Note 03/14/25 1247 MR#: [id number] Acct: [id number] Name: PLA NICHOLAS Rep #:[id number] : 2005 19 From: Patsy WESTBROOK PCP: Care Physician,No Primary Status :DEP CLI Y Location: [facility] HPI - General General Date of Service: [...] 81 mg capsule 81 mg PO DAILY 02/02/2502/24 19:00 History vit no.95-ferrous 1 tab PO DAILY 02/02/25 19:00 History fumarate 28 mg-folic acid 800 mcg [...] NST Reactive:: Yes Uterine Activity:: none Assessment & Plan (1) Decreased movement: PLAN: Plan No signs of labor, ROM plus negative POTS syndrome, to follow up with cardiology, stable at this time reactive NST D/C home 03/14/25 1249 CNM> Date _ Patsy March CNM Cosigner Signature (if applicable): Date CC: HUMPHREY March; No Primary Care Physician ~ Signed Evaluation noteNo assessment information available Work Phone: Evaluation note* Diagnosis Visit for screening ([facility])- Primary Unspecified screening 18 weeks gestation of ([facility]) state, incidental Encounter for supervision of high risk in second trimester, antepartum ([facility]) 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HCC) POTS (postural orthostatic tachycardia syndrome) Tachycardia, unspecified 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 Screening for STD (sexually transmitted disease) Screening examination for venereal disease Abdominal pain during in second trimester ([facility]) Bacterial vaginosis Vaginitis and vulvovaginitis, unspecified documented in this encounter [facility] note* Diagnosis Abdominal pain affecting ([facility]) Diarrhea Hypokalemia Hypopotassemia Headache Chest pain during (HCC) Vaginal discharge during (HCC) Dizziness Dizziness and giddiness Chronic hypertension affecting ([facility]) 19 weeks gestation of ([facility]) state, incidental Pelvic pressure in ([facility]) Other specified complication, antepartum Bacterial vaginosis- Primary Vaginitis and vulvovaginitis, unspecified 20 weeks gestation of ([facility]) state, incidental Burning with urination Dysuria Palpitations Other fatigue Weakness Other malaise and fatigue Encounter for supervision of normal first in second trimester ([facility]) Supervision of normal first [facility] Diagnosis Abdominal pain affecting (HCC) Diarrhea Hypokalemia Hypopotassemia Headache Chest pain during (HCC) Vaginal discharge during (HCC) Dizziness Dizziness and giddiness Chronic hypertension affecting ([facility]) 19 weeks gestation of ([facility]) state, incidental Pelvic pressure in ([facility]) Other specified complication, antepartum POTS (postural orthostatic tachycardia syndrome)- Primary Tachycardia, unspecified Visit for screening ([facility]) Unspecified screening 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HCC) Chronic hypertension affecting ([facility]) [facility] Diagnosis Abdominal pain affecting (HCC) Diarrhea Hypokalemia Hypopotassemia Headache Chest pain during (HCC) Vaginal discharge during (HCC) Dizziness Dizziness and giddiness Chronic hypertension affecting (HCC) Pelvic pressure in (HCC) Other specified complication, antepartum Dysuria- Primary documented in this encounter [facility] note* Diagnosis Diarrhea Hypokalemia Hypopotassemia Headache Chest pain during (HCC) Vaginal discharge during (HCC) Dizziness Dizziness and giddiness Pelvic pressure in (HCC) Other specified complication, antepartum Chronic hypertension affecting (HCC) Abdominal pain affecting (HCC) 21 weeks gestation of (HCC) state, incidental Encounter for supervision of normal first in second trimester ([facility])- Primary Supervision of normal first Vaginal discharge Leukorrhea, not specified as infective 21 weeks gestation of (HCC) state, incidental Abdominal pain affecting ([facility]) * Assessment & Plan Note - [...] - abdominal binder [facility] Diagnosis Diarrhea Hypokalemia Hypopotassemia Headache Chest pain during (HCC) Vaginal discharge during (HCC) Dizziness Dizziness and giddiness Pelvic pressure in (HCC) Other specified complication, antepartum Chronic hypertension affecting (HCC) Abdominal pain affecting (HCC) 21 weeks gestation of (HCC) state, incidental Encounter for supervision of normal first in second trimester ([facility])- Primary Supervision of normal first Vaginal discharge Leukorrhea, not specified as infective 21 weeks gestation of (HCC) state, incidental Abdominal pain affecting (HCC) Vaginal discharge during , antepartum ([facility])- Primary * Assessment & Plan Note - Lester Phillips MD - 02/02/2025 2:28 PM EDTAssociated Problem(s): Vaginal discharge during (HCC) Orders: UA DIP, URINE (POC) documented in this encounter [facility] Diagnosis Diarrhea Hypokalemia Hypopotassemia Headache Chest pain during ([facility]) Vaginal discharge during ([facility]) Dizziness Dizziness and giddiness Pelvic pressure in ([facility]) Other specified complication, antepartum Chronic hypertension affecting ([facility]) Abdominal pain affecting ([facility]) 21 weeks gestation of ([facility]) state, incidental Encounter for supervision of normal first in second trimester ([facility])- Primary Supervision of normal first Vaginal discharge Leukorrhea, not specified as infective 21 weeks gestation of ([facility]) state, incidental Abdominal pain affecting ([facility]) Vaginal discharge during , antepartum ([facility])- Primary Encounter for supervision of normal first in second trimester ([facility])- Primary Supervision of normal first 24 weeks gestation of ([facility]) state, incidental Screening for diabetes mellitus Vaginal discharge during in second trimester ([facility]) [facility] Magda Aragon Note Date/Time February 02, 2025 11:38pm [facility] Medical Records Department [address] [place] [address] OB Triage Physician Note 02/02/25 2336 MR#: [id number] Acct: [id number] Name: PAL NICHOLAS Rep #:[id number] : 2005 19 From: Magda Aragon MD PCP: Care Physician,No Primary Status :REG CLI Y Location: [place] [id number] HPI - General General Date of Admission: 02/02/25 Date of Service: 02/02/25 Chief Complaint: cramping HPI Narrative PAL NICHOLAS, is a 19 F who presents cramping. No bleeding. Some movement.Was seen in office today with normal discharge. Maternal Data Information Final AMARI: 05/31/25 Gestational age: 22 PFSH [facility] Medical History (Updated 02/02/25 @ 23:38 [...] Angel Zaragoza' contraction: COMMENT: cervix closed 02/02/25 6346 <Electronically signed by Magda Esparza in > Date _ Magda Aragon MD Cosigner Signature (if applicable): Date CC: Dr. Magda Aragon MD; No Primary Care Physician ~ Signed Work Phone: History and physical note Author Ramakrishna Corley Note Date/Time February 05, 2025 12:03am [facility] Medical Records Department [address] [place] [address] OB Triage Physician Note 02/04/25 2127 MR#: [id number] Acct: [id number] Name: PAL NICHOLAS Rep #: : 2005 19 From: Ramakrishna Corley DO PCP: Care Physician,No Primary Status :REG CLI Y Location: [place] [address] HPI - General General Date of Service: 02/04/25 Chief Complaint: ctx's HPI Narrative PAL NICHOLAS, is a 19 F who presents ctx's. She states she has had contractions and abdominal pain for 1-2 weeks. Went to [facility] 2 weeks agofor this and [...] vb or lof. No constipation or diarrhea. [facility] Medical History (Updated 02/05/25 @ 00:00 [...] DO; No Primary Care Physician ~ Signed Work Phone: History and physical note Author Magda Aragon Note Date/Time February 14, 2025 8:48pm [facility] Medical Records Department [address] [facility] [place] [address] OB Triage Physician Note 02/13/25 2321 MR#: [id number] Acct: [id number] Name: PAL NICHOLAS Rep #:[id number] : 2005 19 From: Magda Aragon MD PCP: Care Physician,No Primary Status :DEP CLI Y Location: [facility] HPI - General General Date of Service: 02/13/25 Chief Complaint: pain HPI Narrative PAL NICHOLAS, is a 19 F who presents with bladder pain and unable to void.Was in Triage at [facility] early and had straight cath [...] MD; No Primary Care Physician ~ Signed Work Phone: History and physical note Author Patsy March Note Date/Time March 14, 2025 1 :49pm [facility] Medical Records Department [address] [place] [address] OB Triage Physician Note 03/14/25 1247 MR#: [id number] Acct: [id number] Name: PAL NICHOLAS Rep #:[id number] : 2005 19 From: Patsy [place] PCP: Care Physician,No Primary Status :DEP CLI [...] Current Estimate 05/31/25 Manual 28w 6d PFSH PFS Medical History (Updated 03/14/25 @ 12:49 by Patsy March CNM) POTS (postural orthostatic tachycardia syndrome) Myles-Danlos syndrome Home Medications ?Medication ?Instructions ?Recorded ?Last Taken ?Type aspirin 81 mg capsule 81 mg PO DAILY 02/02/2502/24 19:00 History vit no.95-ferrous 1 tab PO DAILY 02/02/25 19:00 History fumarate 28 mg-folic acid 800 mcg [...] NST Reactive:: Yes Uterine Activity:: none Assessment & Plan (1) Decreased movement: PLAN: Plan No signs of labor, ROM plus negative POTS syndrome, to follow up with cardiology, stable at this time reactive NST D/C home 03/14/25 1249 <Electronically signed by Patsy March CNM> Date _ Patsy March CNM Cosigner Signature (if applicable): Date CC: HUMPHREY March; No Primary Care Physician ~ Signed Work Phone: Reason for referral (narrative)No reason for referral [facility] Work Phone: Chief Complaint and Reason for Visit Chief Complaint Admit Date female pain, December 21, 2024 8: 25pm Chief Complaint Admit Date female pain, December 21, 2024 8: 25pm R/O LABOR February 02, 2025 8:50pm Reason for Visit Admit Date 23 weeks gestation of Janembe r 2024 8:50pm Issaquena Zaragoza' contraction January 8:50pm Chief Complaint Admit Date female pain, December 21, 2024 8: 25pm R/O LABOR February 02, 2025 8:50pm R/O LABOR February 04, 2025 10:13pm Reason for Visit Admit Date 23 weeks gestation of Septembe r 2024 8:50pm Angel Zaragoza' contraction January 8:50pm [facility] 2024 10:13pm [place] Zaragoza' contraction January 10:13pm Dysuria February 04, 2025 10:13pm History of UTI February 04, 2025 10:13pm Suprapubic pain February 04, 2025 10:13pm Chief Complaint Admit Date female pain, December 21, 2024 8: 25pm R/O LABOR February 02, 2025 8:50pm R/O LABOR February 04, 2025 10:13pm R/O LABOR February 13, 2025 9:49pm Reason for Visit Admit Date 23 weeks gestation of [place]ár[place] 2024 8:50pm Issaquena Zaragoza' contraction January 8:50pm 23 weeks gestation of [place]ár[place] 2024 10:13pm Issaquena Zaragoza' contraction January 10:13pm Dysuria February 04, [...] 23 weeks gestation of Bárbara 2024 8:50pm Issaquena Zaragoza' contraction January 8:50pm 23 weeks gestation of [place]ár[place] 2024 10:13pm Issaquena Zaragoza' contraction January 10:13pm Dysuria February 04, 2025 10:13pm History of UTI February 04, 2025 10:13pm Suprapubic pain February 04, 2025 10:13pm Dysuria February 13, 2025 9:49pm Suprapubic pain February 13, 2025 9:49pm Threatened labor February 23, 2025 8:00pm Chief Complaint Admit Date female pain, December 21, 2024 8: 25pm R/O LABOR February 02, 2025 8:50pm R/O LABOR February 04, 2025 10:13pm R/O LABOR February 13, 2025 9:49pm ABDOMINAL PAIN AND BACK PAIN January 272024 8:00pm DECREASED MOVEMENT/PT HIGH HEART R ATE March 13, 2025 4:35pm DECREASED MOVEMENT March 17 5:27pm ABDOMINAL PAIN March 29, 2025 4 :35pm Chest pain March 29, 2025 7 :15pm HEADACHE April 01, 2025 4 :10pm Reason for Visit Admit Date 23 weeks gestation of Bárbara r 2024 8:50pm Issaquena Zaragoza' contraction January 8:50pm 23 weeks gestation of Bárbara r 2024 10:13pm Issaquena Zaragoza' contraction January 10:13pm Dysuria February 04, 2025 10:13pm History of UTI February 04, 2025 10:13pm Suprapubic pain February 04, 2025 10:13pm Dysuria February 13, 2025 9:49pm Suprapubic pain February 13, 2025 9:49pm Threatened labor February 23, 2025 8:00pm Decreased movement March 13 025 4:35pm 29 weeks gestation of March 17, 2025 5:27pm Decreased movement March 17 025 5:27pm 31 weeks gestation of March 29, 2025 4:35pm Chest pain March 29, 2025 4 :35pm Decreased movement March 29 4:35pm Pain in symphysis pubis during March 29, 2025 4:35pm POTS (postural orthostatic tachycardia s yndrome) March 29, 2025 4:35pm Shortness of breath March 29, 2025 4 :35pm Tachycardia March 29, 2025 4 :35pm Advance Directives No Advanced Directives Records Found Advance Directive Response Recorded Date/ Time Do you have a Healthcare Power of Twisting Frame Operator? No December 21, 2024 9:54pm Advance Directive Response Recorded Date/ Time Do you have a Healthcare Power of Twisting Frame Operator? No December 21, 2024 8:54pm Do you have a Healthcare Power of Twisting Frame Operator? No March 29, 2025 7:32pm Summary Purpose Family History No Family History [...] or prosecute any alcohol or drug abuse patient.[facility] the event this information is protected by the Federal Confidentiality of Alcohol and Drug Abuse Patient Records regulations: The Federal rules restrict any use of the information to criminally investigate or prosecute any alcohol or drug abuse patient.[facility] the event this information is protected by the Federal Confidentiality of Alcohol and Drug Abuse Patient Records regulations: The Federal rules restrict any use of the information to criminally investigate or prosecute any alcohol or drug abuse patient.[facility] the event this information is protected by the Federal Confidentiality of Alcohol and Drug Abuse Patient Records regulations: The Federal rules restrict any use of the information to criminally investigate or prosecute any alcohol or drug abuse patient.[facility] the event this information is protected by the Federal Confidentiality of Alcohol and Drug Abuse Patient Records regulations: The Federal rules restrict any use of the information to criminally investigate or prosecute any alcohol or drug abuse patient.[facility] Center[facility] the event this information is protected by the Federal Confidentiality of Alcohol and Drug Abuse Patient Records regulations: The Federal rules restrict any use of the information to criminally investigate or prosecute any alcohol or drug abuse patient.[facility] CenterIn the event this information is protected by the Federal Confidentiality of Alcohol and Drug Abuse Patient Records regulations: The Federal rules restrict any use of the information to criminally investigate or prosecute any alcohol or drug abuse patient.[facility] Center[facility] the event this information is protected by the Federal Confidentiality of Alcohol and Drug Abuse Patient Records regulations: The Federal rules restrict any use of the information to criminally investigate or prosecute any alcohol or drug abuse patient.[facility] CenterIn the event this information is protected by the Federal Confidentiality of Alcohol and Drug Abuse Patient Records regulations: The Federal rules restrict any use of the information to criminally investigate or prosecute any alcohol or drug abuse patient.[facility] Center[facility] the event this information is protected by the Federal Confidentiality of Alcohol and Drug Abuse Patient Records regulations: The Federal rules restrict any use of the information to criminally investigate or prosecute any alcohol or drug abuse patient.[facility] Center[facility] the event this information is protected by the Federal Confidentiality of Alcohol and Drug Abuse Patient Records regulations: The Federal rules restrict any use of the information to criminally investigate or prosecute any alcohol or drug abuse patient.[facility] Center[facility] the event this information is protected by the Federal Confidentiality of Alcohol and Drug Abuse Patient Records regulations: The Federal rules restrict any use of the information to criminally investigate or prosecute any alcohol or drug abuse patient.[facility] CenterIn the event this information is protected by the Federal Confidentiality of Alcohol and Drug Abuse Patient Records regulations: The Federal rules restrict any use of the information to criminally investigate or prosecute any alcohol or drug abuse patient.[facility] CenterIn the event this information is protected by the Federal Confidentiality of Alcohol and Drug Abuse Patient Records regulations: The Federal rules restrict any use of the information to criminally investigate or prosecute any alcohol or drug abuse patient.[facility] Center[facility] the event this information is protected by the Federal Confidentiality of Alcohol and Drug Abuse Patient Records regulations: The Federal rules restrict any use of the information to criminally investigate or prosecute any alcohol or drug abuse patient.[facility] CenterIn the event this information is protected by the Federal Confidentiality of Alcohol and Drug Abuse Patient Records regulations: The Federal rules restrict any use of the information to criminally investigate or prosecute any alcohol or drug abuse patient.[facility] CenterIn the event this information is protected by the Federal Confidentiality of Alcohol and Drug Abuse Patient Records regulations: The Federal rules restrict any use of the information to criminally investigate or prosecute any alcohol or drug abuse patient.[facility] CenterIn the event this information is protected by the Federal Confidentiality of Alcohol and Drug Abuse Patient Records regulations: The Federal rules restrict any use of the information to criminally investigate or prosecute any alcohol or drug abuse patient.[facility] CenterIn the event this information is protected by the Federal Confidentiality of Alcohol and Drug Abuse Patient Records regulations: The Federal rules restrict any use of the information to criminally investigate or prosecute any alcohol or drug abuse patient.[facility] Reason for Visit (unrecogniz ed section and content) Reason Comments Care Coordination Reason Comments OB Pelvic Pain Reason Comments Received Outside Medical Records Reason Comments Care Reason Comments OB Pain Reason Comments OB Vaginal Pressure Reason Onset Date Comments Care 01/11/2025 Reason Comments US Specialty Diagnoses / Procedures Referred By Contdeni t Referred To Contact [facility] Diagnoses Visit for screening (HCC) Procedures OBSTETRIC ULTRASOUND WHI US PREG UTERUS AFTER 1ST TRIMEST 1 GESTATION Lynnette Tapia APRN.Barbara [address] [place] [address] Phone: tel: fax: [facility] [address] [place] [address] Referral ID Status Reason Start Date Expiration Date V isits Requested Visits Authorized [id number] Closed Auto-Generate d Referral 12/29/2024 05/26/2025 1 [...] February 23, 2025 End: February 23, 2025 Team Status: Inactive Member Role/Relationship Status Dates No Primary Care Physician Primary care physician Activ e Start: March 13, 2025 End: March 13, 2025 Patsy March CNM Attending physician Active S tart: March 13, 2025 End: March 13, 2025 Patsy March CNM Referring Provider Active St art: March 13, 2025 End: March 13, 2025 Team Status: Inactive Member Role/Relationship Status Dates No Primary Care Physician Primary care physician Activ e Start: March 17, 2025 End: March 17, 2025 Dr. Magda Aragon MD Attending physician Active Start: March 17, 2025 End: March 17, 2025 Dr. Magda Aragon MD Referring Provider Active Start: March 17, 2025 End: March 17, 2025 Team Status: Inactive Member Role/Relationship Status Dates No Primary Care Physician Primary care physician Activ e Start: March 29, 2025 End: March 29, 2025 Patsy March CNM Attending physician Active S tart: March 29, 2025 End: March 29, 2025 Patsy March CNM Referring Provider Active St art: March 29, 2025 End: March 29, 2025 Team Status: Inactive Member Role/Relationship Status Dates No Primary Care Physician Primary care physician Activ e Start: March 29, 2025 End: March 29, 2025 Eugene Morejon MD Emergency Department Physician Active Start: March 29, 2025 End: March 29, 2025 Team Status: Active Member Role/Relationship Status Dates No Primary Care Physician Primary care physician Activ e Start: April 01, 2025 Dr. Magda Aragon MD Attending physician Active Start: April 01, 2025 Dr. Magda Aragon MD Referring Provider Active Start: April 01, 2025 Goals (unrecognized section and content) Goals [...] content) DATE CREATED AUTHOR 03/09/2025 [facility] DATE CREATED AUTHOR AUTHOR'S ANTOINETTE ATION 04/02/[address] [facility] DATE CREATED AUTHOR AUTHOR'S ORGANIZ ATION 04/03/2025 [facility] FOR RECORDS PERTAINING TO PATIENTS WHO [...] BE BASED ON THE PRIMARY CLINICAL RECORDS. [employer] [facility]. provides no warranty or guarantee of the accuracy or completeness of information in this document.
[2025-04-06 02:36] VITALS: BMI 31.6
[2025-04-06 02:41] VITALS: PULSE 95; RESP 19; TEMP 36.4; O2SAT 98
[2025-04-06 02:42] VITALS: BP 125/75; PULSE 90
[2025-04-06 02:58] LABS: Glucose, Dipstick Normal (Normal); Ketone-Dipstick Negative (Negative); Leukocyte Esterase-Dipstick 100 /ul (Negative); Nitrite-Dipstick Negative (Negative); Occult Blood-Urine Negative /ul (Negative); Protein-Dipstick 15 mg/dl (Negative); Specific Gravity, Urine 1.015 (1.002-1.030); Urine Bilirubin Dipstick Negative (Negative)
[2025-04-06 03:02] LABS: Color, Urine Yellow (Yellow)
--- NOTE | 2025-04-06 09:38 | OB.TRI.NOTE ---
HPI - General General Date of Service: 04/06/25 HPI Narrative JOSE NICHOLAS, is a 19 F @ 32.1 weeks who present for vaginal burning, Excessive movement and Cramping Maternal Data Information AMARI Calculator Estimated Delivery Date Method Current WG Current Estimate 05/31/25 Manual 32w 1d PFSH PFS Medical History POTS (postural orthostatic tachycardia syndrome) Myles-Danlos syndrome Home Medications Medication Instructions Recorded Last Taken Type aspirin 81 mg capsule 81 mg PO DAILY 02/02/25 04/05/25 History vit no.95-ferrous 1 tab PO DAILY 02/02/25 04/05/25 History fumarate 28 mg-folic acid 800 mcg tablet () Allergy/AdvReac Type Severity Reaction Status Date / Time blueberry Allergy Hives Verified 04/06/25 02:44 Social History Smoking Status: Never smoker History 1 Elective abortions Hx Para 0 Spontaneous abortions Hx # Term Pregnancies Ectopic pregnancies Hx # Pregnancies Multiple births # of living children NST FHR Rate Baby A Baseline: 125 Variability:: Moderate Accelerations:: 15 x 15 Decelerations:: None NST Reactive:: Yes FHR Category:: Category I Uterine Activity:: no ctx Assessment & Plan (1) 32 weeks gestation of : (2) Cramping affecting , antepartum: PLAN: Plan @ 32 weeks- cramping r/o UTI, vaginal burning and excessive FM 1) UA- Protein/LE, will send culture 2) NST- well being established 3) Dc home
== END 2025-04-06 03:30 | disposition home or self-care (01) ==
LOC: WPOUT 02:33 → WP 02:33
PROVIDERS: Visit Provider Obstetrics & Gynecology
DX: O99.891 Other specified diseases and conditions complicating pregnancy (principal); R25.2 Cramp and spasm; Z3A.32 32 weeks gestation of pregnancy
CPT/HCPCS: 59025; 59050; 81002; 87086; 99221; G0378